=== PATIENT | female | born 1960 | race Caucasian/White ===

== ENCOUNTER → 2023-08-11 | Outpatient (CLI) | payer MEDICARE, OTHER, SELFPAY ==
[2023-08-11 17:02] LABS: Hematocrit 41.7 % (37-47); Hemoglobin 14.1 g/dL (12.0-15.0); Mean Corp Hgb Conc 33.8 g/dL (32-36); Mean Corpuscular Hgb 28.5 pg (27.0-32.0); Mean Corpuscular Volume 84.4 fL (81-99); Mean Platelet Vol. 10.6 fl (6.2-12.0); Platelet Count 280 K/mm3 (150-450); RBC Distribution Width CV 13.1 % (11.6-14.6); RBC Distribution Width SD 39.9 fl (35.1-43.9); Red Blood Count 4.94 M/mm3 (4.2-5.4); White Blood Count 6.4 K/mm3 (4.4-11.0)
[2023-08-11 17:41] LABS: ALB/GLOB Ratio 1.1 RATIO (0.9-2.4); AST(SGOT) 28 U/L (15-37); Alanine Aminotransfer ALT/SGPT 27 U/L (13-56); Albumin, Serum 4.1 g/dL (3.2-5.0); Alkaline Phosphatase 54 U/L (45-117); Anion Gap 8 (5-15); BUN 17 mg/dL (7-18); BUN/Creat Ratio 18.4 RATIO (10-20); Calcium,Total 9.6 mg/dL (8.5-10.1); Chloride 105 mmol/L (98-107); Creatinine, Serum 0.92 mg/dL (0.55-1.02); EST Glomerular Filtration Rate 65 mL/min (>60); Est Glom Filt Rate - Afr Amer 78 mL/min (>60); Globulin 3.6 g/dL (2.2-4.2); Glucose 83 mg/dL (74-106); Potassium 3.7 mmol/L (3.5-5.1); Protein, Total 7.7 g/dL (6.4-8.2); Sodium Level 138 mmol/L (136-145); Thyroid Stim Hormone (TSH) 0.49 uIU/mL (0.358-3.74)
[2023-08-11 18:11] LABS: Hepatitis C Antibody Non-Reactive (Nonreactive); Vitamin D,25 Hydroxy 31.1 ng/mL
== END | disposition home or self-care (01) ==
LOC: POLAB3 16:02
PROVIDERS: PCP Family Medicine Geriatric Medicine; Visit Provider Family Medicine Geriatric Medicine
DX: R53.83 Other fatigue (principal); N39.0 Urinary tract infection, site not specified; E55.9 Vitamin D deficiency, unspecified; Z13.89 Encounter for screening for other disorder
CPT/HCPCS: 36415; 80053; 82306; 84443; 85027; 86803; 87086; 87088; 87186

== ENCOUNTER → 2023-09-03 | Outpatient (CLI) | payer MEDICARE, OTHER, SELFPAY ==
--- NOTE | 2023-09-03 12:47 | CT_ITS ---
STUDY: CT ABDOMEN AND PELVIS WITH CONTRAST REASON FOR EXAM: Female, 63 years old. LEFT FLANK PAIN RADIATION DOSAGE (If Supplied By Facility): CTDIvol = ( 11.82 ) mGy, DLP = ( 481.39 ) mGycm TECHNIQUE: Transaxial images were obtained from the dome of the diaphragm to the symphysis pubis without oral contrast. Oral and amp; IV Readi-CAT and amp; 100mL Isovue-300 was administered. Sagittal and coronal images were reconstructed. Individualized dose optimization techniques were used for this CT. COMPARISON: None. FINDINGS: The visualized lung bases are unremarkable. The visualized portions of the heart are within normal limits. Normal liver. Normal gallbladder and extrahepatic biliary system. Normal spleen. Normal pancreas. Normal bilateral adrenal glands. Normal right kidney. Normal left kidney. Normal visualized stomach. Normal small intestine. Large amount of fecal material is seen in the colon. The appendix is visualized and appears normal. Normal abdominal aorta. Normal inferior vena cava. Normal retroperitoneum. Normal urinary bladder. I suspect a 2.6 x 2.3 cm fibroid in the fundal portion of the uterus. Normal abdominal wall. Normal osseous structures. CT/Abdomen/Pelvis WITH Contrast IMPRESSION: Large amount of fecal material is seen throughout the colon. Findings suggestive of a 2.6 cm x 2.3 cm uterine fibroid. Electronically Signed: Reinaldo Soriano MD at 14:25 EDT ,
== END | disposition home or self-care (01) ==
LOC: CT 12:41
PROVIDERS: PCP Family Medicine Geriatric Medicine; Referring Provider Family Medicine Geriatric Medicine; Visit Provider Family Medicine Geriatric Medicine
DX: R10.9 Unspecified abdominal pain (principal)
CPT/HCPCS: 74177; Q9967

== ENCOUNTER → 2023-11-15 | Outpatient (CLI) | payer MEDICARE, OTHER, SELFPAY | END | disposition home or self-care (01) | PROVIDERS: PCP Family Medicine Geriatric Medicine; Visit Provider Family Medicine Geriatric Medicine | DX: N39.0 Urinary tract infection, site not specified (principal) | CPT/HCPCS: 87086; 87088; 87186 ==

== ENCOUNTER → 2023-12-21 | Outpatient (CLI) | payer MEDICARE, OTHER, SELFPAY ==
--- NOTE | 2023-12-21 16:14 | RAD_ITS ---
EXAM: XR CHEST, 2 VIEWS CLINICAL INDICATION: SOB TECHNIQUE: Frontal and lateral views of the chest. COMPARISON: No relevant prior studies available. FINDINGS: LUNGS AND PLEURAL SPACES: No significant abnormality. No consolidation or edema. No pneumothorax. No effusion. HEART: No significant abnormality. Cardiac silhouette not enlarged. MEDIASTINUM: Central airways and mediastinal contour are unremarkable. BONES/JOINTS: Osseous degenerative changes. No acute fracture. SOFT TISSUES: No significant abnormality. VASCULATURE: Atherosclerosis. RAD/Chest PA and Lateral IMPRESSION: No acute findings in the chest. Electronically Signed: Leobardo Jay DO at 0:09 EDT ,
== END | disposition home or self-care (01) ==
PROVIDERS: PCP Family Medicine Geriatric Medicine; Referring Provider Family Medicine Geriatric Medicine; Visit Provider Family Medicine Geriatric Medicine
DX: R53.83 Other fatigue (principal); R06.02 Shortness of breath
CPT/HCPCS: 71046

== ENCOUNTER → 2023-12-23 | Outpatient (CLI) | payer MEDICARE, OTHER, SELFPAY ==
[2023-12-23 15:21] LABS: Absolute Lymphocyte Count 1.67 X10^3/uL (0.83-4.51); Absolute Neutrophil Count 4.4 X10^3/uL (2.0-7.7); Basophil% 1.4 % (0-1); Eosinophil# 0.22 X10^3/uL; Eosinophils% 3.2 % (0-5); Hematocrit 44.6 % (37-47); Hemoglobin 14.4 g/dL (12.0-15.0); Lymphocyte # 1.67 X10^3/ul (0.83-4.51); Lymphocyte % 24.2 % (19-41); Mean Corp Hgb Conc 32.3 g/dL (32-36); Mean Corpuscular Hgb 27.7 pg (27.0-32.0); Mean Corpuscular Volume 85.8 fL (81-99); Mean Platelet Vol. 10.2 fl (6.2-12.0); Monocyte# 0.51 X10^3/uL; Monocyte% 7.4 % (0-10); NRBC Flagged by Analyzer 0 % (0-5); Neutrophil # 4.36 X10^3/uL (2.7-7.7); Neutrophil % 63.2 % (47-70); Platelet Count 276 K/mm3 (150-450); RBC Distribution Width CV 14.1 % (11.6-14.6); White Blood Count 6.9 K/mm3 (4.4-11.0)
[2023-12-23 16:20] LABS: AST(SGOT) 22 U/L (15-37); Alanine Aminotransfer ALT/SGPT 24 U/L (13-56); Albumin, Serum 3.9 g/dL (3.2-5.0); Alkaline Phosphatase 59 U/L (45-117); Anion Gap 4 (5-15); BUN 16 mg/dL (7-18); BUN/Creat Ratio 18.6 RATIO (10-20); Calcium,Total 9.6 mg/dL (8.5-10.1); Chloride 108 mmol/L (98-107); Creatinine, Serum 0.86 mg/dL (0.55-1.02); EST Glomerular Filtration Rate 70 mL/min (>60); Est Glom Filt Rate - Afr Amer 85 mL/min (>60); Globulin 3.8 g/dL (2.2-4.2); Glucose 89 mg/dL (74-106); Protein, Total 7.7 g/dL (6.4-8.2); Sodium Level 138 mmol/L (136-145)
== END | disposition home or self-care (01) ==
LOC: LAB 14:22
PROVIDERS: PCP Family Medicine Geriatric Medicine; Referring Provider Family Medicine Geriatric Medicine; Visit Provider Family Medicine Geriatric Medicine
DX: R53.83 Other fatigue (principal)
CPT/HCPCS: 36415; 80053; 84443; 85025

== ENCOUNTER → 2023-12-28 | Outpatient (CLI) | payer MEDICARE, OTHER, SELFPAY | END | disposition home or self-care (01) | LOC: PSN 09:48 | PROVIDERS: PCP Family Medicine Geriatric Medicine; Referring Provider Family Medicine Geriatric Medicine; Visit Provider Family Medicine Geriatric Medicine | DX: R06.02 Shortness of breath (principal) | CPT/HCPCS: 94060 ==

== ENCOUNTER → 2023-12-30 | Outpatient (CLI) | payer MEDICARE, OTHER, SELFPAY ==
--- NOTE | 2023-12-30 11:06 | ECHOD_ITS ---
Reason For Study: SOB Procedure This was a 2D Doppler, Color Flow transthoracic echocardiogram. Exam performed in department. Left Ventricle Normal LV size. The estimated ejection fraction is 65 %. No evidence for diastolic dysfunction. No regional wall motion abnormalities noted. Right Ventricle Normal RV size. Normal systolic function. Atria The left and right atria are normal. No doppler evidence for ASD. Mitral Valve There is no mitral valve stenosis. Trivial mitral valve insufficiency. Tricuspid Valve There is no tricuspid stenosis. Unable to estimate RV systolic pressure due to insufficient tricuspid regurgitant envelope. Aortic Valve Trisinus/trileaflet aortic valve. Aortic sclerosis, no stenosis. There is no aortic stenosis. No aortic valve insufficiency. Pulmonic Valve There is no pulmonic valvular stenosis. No pulmonic valve insufficiency. Great Vessels Normal aortic root. Pericardium/Pleural No pericardial effusion. MMode/2D Measurements & Calculations LVIDd: 3.6 cm IVSd: 1.1 cm LVOT diam: 2.0 cm LVIDs: 2.3 cm LVPWd: 0.88 cm LVOT area: 3.3 cm2 RVDd: 2.8 cm FS: 35.5 % Ao root diam: 3.3 cm LAV(MOD-bp): 19.7 ml LVAd ap4: 19.1 cm2 LAV(MOD-bp) Indexed: 12.5 ml/m2 LVLd ap4: 6.9 cm LAV(MOD-sp2): 18.2 ml EDV(MOD-sp4): 46.9 ml LAV(MOD-sp4): 21.7 ml EDV(sp4-el): 44.6 ml LVAs ap4: 12.5 cm2 LVLs ap4: 5.6 cm ESV(MOD-sp4): 23.5 ml ESV(sp4-el): 23.5 ml EF(MOD-sp4): 49.9 % EF(sp4-el): 47.4 % SV(MOD-sp4): 23.4 ml SV(sp4-el): 21.1 ml LA A4 area: 11.4 cm2 LA dimension(2D): 2.9 cm RA A4 area: 8.9 cm2 TAPSE: 1.6 cm Time Measurements MV dec time: 0.36 sec Doppler Measurements & Calculations MV E max joey: 45.2 cm/sec Lat Peak E' Joey: 8.4 cm/sec Med Peak E' Joey: 4.4 cm/sec MV A max joey: 58.1 cm/sec E/E' lat: 5.4 E/E' med: 10.2 MV E/A: 0.78 MV V2 max: 67.0 cm/sec Ao V2 max: 107.0 cm/sec MV max P.8 mmHg MV dec slope: 132.6 cm/sec2 Ao max P.6 mmHg MV V2 mean: 43.4 cm/sec Ao V2 mean: 72.7 cm/sec MV mean P.83 mmHg Ao mean P.4 mmHg MV V2 VTI: 24.6 cm Ao V2 VTI: 23.8 cm AV (velocity ratio): 0.94 MVA(VTI): 3.0 cm2 CRISTAL(I,D): 3.1 cm2 CRISTAL(V,D): 2.8 cm2 LV V1 max: 91.2 cm/sec SV(LVOT): 73.3 ml LV V1 max P.3 mmHg LV V1 mean P.9 mmHg LV V1 mean: 63.5 cm/sec LV V1 VTI: 22.5 cm ECHO/Echo Complete Interpretation Summary The estimated ejection fraction is 65 %. No evidence for diastolic dysfunction. Trivial mitral valve insufficiency. Ordering Physician: Bello Davenport Chi Referring Physician: Bello Davenport Chi Performed By: Valerie Morrissey RCS
== END | disposition home or self-care (01) ==
PROVIDERS: PCP Family Medicine Geriatric Medicine; Referring Provider Family Medicine Geriatric Medicine; Visit Provider Family Medicine Geriatric Medicine
DX: R06.02 Shortness of breath (principal)
CPT/HCPCS: 93306

== ENCOUNTER → 2024-01-03 | Outpatient (CLI) | payer MEDICARE, OTHER, SELFPAY ==
--- NOTE | 2024-01-03 10:43 | BI_ITS ---
MAMMOGRAPHY - BILATERAL SCREENING REASON FOR EXAM: Female, 63 years old. Routine annual screening examination. PERTINENT HISTORY: Non-contributory. TECHNIQUE: Digital bilateral breast beba (3D mammographic acquisition) in the CC and MLO projections. 2-D mediolateral oblique (MLO) and craniocaudad (CC) views of both breasts were obtained. CAD: Full Field Digital Mammography with Computer Added Detection was performed. COMPARISON: Comparison is made with prior outside examination dated December 24, 2022. FINDINGS: Breast Composition: There are scattered areas of fibroglandular density. There are no dominant masses or suspicious calcifications. No other significant abnormalities are identified. There has been no significant change since the prior study. BI/SCRN MAMM (CAD)W/BEBA BILAT IMPRESSION: Stable bilateral screening mammogram. Yearly follow-up mammogram recommended. (A) ASSESSMENT CATEGORY: BIRADS Category 1: Negative. A letter regarding these results will be sent to the patient by the facility within 30 days. Approximately 10% of breast cancers are not detected by mammography. A normal mammogram should not delay biopsy of a clinically suspicious abnormality. [id number] Electronically Signed: Reinaldo Soriano MD at 11:34 EDT ,
== END | disposition home or self-care (01) ==
LOC: OPBI 10:40
PROVIDERS: PCP Family Medicine Geriatric Medicine; Referring Provider Family Medicine Geriatric Medicine; Visit Provider Family Medicine Geriatric Medicine
DX: Z12.31 Encounter for screening mammogram for malignant neoplasm of breast (principal)
CPT/HCPCS: 77063; 77067

== ENCOUNTER → 2024-02-04 | Outpatient (CLI) | payer MEDICARE, OTHER, SELFPAY ==
[2024-02-04 11:23] LABS: Absolute Lymphocyte Count 1.32 X10^3/uL (0.83-4.51); Absolute Neutrophil Count 3.2 X10^3/uL (2.0-7.7); Basophil% 1.9 % (0-1); Eosinophils% 3.8 % (0-5); Hematocrit 43.9 % (37-47); Hemoglobin 14.5 g/dL (12.0-15.0); Lymphocyte # 1.32 X10^3/ul (0.83-4.51); Lymphocyte % 25.4 % (19-41); Mean Corpuscular Hgb 28.8 pg (27.0-32.0); Mean Corpuscular Volume 87.1 fL (81-99); Monocyte# 0.39 X10^3/uL; Monocyte% 7.5 % (0-10); NRBC Flagged by Analyzer 0 % (0-5); Neutrophil # 3.17 X10^3/uL (2.7-7.7); Platelet Count 284 K/mm3 (150-450); RBC Distribution Width CV 13.2 % (11.6-14.6); RBC Distribution Width SD 42.3 fl (35.1-43.9); Red Blood Count 5.04 M/mm3 (4.2-5.4); White Blood Count 5.2 K/mm3 (4.4-11.0)
[2024-02-04 11:50] LABS: Vitamin D,25 Hydroxy 22.2 ng/mL
[2024-02-04 12:13] LABS: AST(SGOT) 20 U/L (15-37); Alanine Aminotransfer ALT/SGPT 27 U/L (13-56); Albumin, Serum 3.8 g/dL (3.2-5.0); Alkaline Phosphatase 66 U/L (45-117); Anion Gap 5 (5-15); BUN 14 mg/dL (7-18); BUN/Creat Ratio 17.6 RATIO (10-20); Calcium,Total 10.1 mg/dL (8.5-10.1); Chloride 108 mmol/L (98-107); EST Glomerular Filtration Rate 77 mL/min (>60); Est Glom Filt Rate - Afr Amer 93 mL/min (>60); Globulin 3.8 g/dL (2.2-4.2); Glucose 83 mg/dL (74-106); Potassium 3.9 mmol/L (3.5-5.1); Protein, Total 7.6 g/dL (6.4-8.2); Sodium Level 140 mmol/L (136-145)
== END | disposition home or self-care (01) ==
LOC: POLAB3 10:53
PROVIDERS: PCP Family Medicine Geriatric Medicine; Visit Provider Family Medicine Geriatric Medicine
DX: R53.83 Other fatigue (principal); E55.9 Vitamin D deficiency, unspecified
CPT/HCPCS: 36415; 80053; 82306; 84443; 85025

== ENCOUNTER → 2024-03-02 | Outpatient (CLI) | payer MEDICARE, OTHER, SELFPAY | END | disposition home or self-care (01) | LOC: POLAB3 10:42 | PROVIDERS: PCP Family Medicine Geriatric Medicine; Visit Provider Family Medicine Geriatric Medicine | DX: N39.0 Urinary tract infection, site not specified (principal) | CPT/HCPCS: 87086; 87088; 87186 ==

== ENCOUNTER → 2024-05-22 | Outpatient (CLI) | payer MEDICARE, OTHER, SELFPAY | END | disposition home or self-care (01) | PROVIDERS: PCP Family Medicine Geriatric Medicine; Referring Provider Family Medicine Geriatric Medicine; Visit Provider Family Medicine Geriatric Medicine | DX: R68.83 Chills (without fever) (principal) | CPT/HCPCS: 87631 ==

== ENCOUNTER → 2024-08-11 | Outpatient (CLI) | payer MEDICARE, OTHER, SELFPAY ==
[2024-08-11 11:18] LABS: Absolute Lymphocyte Count 1.17 X10^3/uL (0.83-4.51); Absolute Neutrophil Count 3.7 X10^3/uL (2.0-7.7); Basophil# 0.08 X10^3/uL; Basophil% 1.4 % (0-1); Eosinophil# 0.19 X10^3/uL; Eosinophils% 3.3 % (0-5); Hematocrit 43.9 % (37-47); Hemoglobin 14.7 g/dL (12.0-15.0); Lymphocyte # 1.17 X10^3/ul (0.83-4.51); Lymphocyte % 20.5 % (19-41); Mean Corp Hgb Conc 33.5 g/dL (32-36); Mean Corpuscular Volume 86.6 fL (81-99); Mean Platelet Vol. 9.5 fl (6.2-12.0); Monocyte# 0.52 X10^3/uL; Monocyte% 9.1 % (0-10); NRBC Flagged by Analyzer 0 % (0-5); Neutrophil # 3.73 X10^3/uL (2.7-7.7); Neutrophil % 65.2 % (47-70); Platelet Count 296 K/mm3 (150-450); RBC Distribution Width CV 13.8 % (11.6-14.6); RBC Distribution Width SD 43.9 fl (35.1-43.9); Red Blood Count 5.07 M/mm3 (4.2-5.4); White Blood Count 5.7 K/mm3 (4.4-11.0)
[2024-08-11 12:12] LABS: ALB/GLOB Ratio 1.4 RATIO (0.9-2.4); AST(SGOT) 22 U/L (<=31); Alanine Aminotransfer ALT/SGPT 19 U/L (<=34); Albumin, Serum 4.3 g/dL (3.4-4.8); Alkaline Phosphatase 62 U/L (35-104); Anion Gap 10 (5-15); BUN 15 mg/dL (4-19); Calcium,Total 9.9 mg/dL (7.6-11.0); Carbon Dioxide 25.9 mmol/L (21.0-32.0); Chloride 104 mmol/L (98-108); Creatinine, Serum 0.75 mg/dL (0.70-1.20); EST Glomerular Filtration Rate 88 (>60); Globulin 3.1 g/dL (2.2-4.2); Glucose 88 mg/dL (70-99); Potassium 4.4 mmol/L (3.3-5.1); Protein, Total 7.5 g/dL (5.9-8.4); Sodium Level 140 mmol/L (133-145); Total Bilirubin 0.74 mg/dL (0.00-1.30)
[2024-08-11 12:13] LABS: Thyroid Stim Hormone (TSH) 0.902 uIU/mL (0.300-4.200); Vitamin D,25 Hydroxy 23.7 ng/mL (30-100)
== END | disposition home or self-care (01) ==
LOC: POLAB3 11:00
PROVIDERS: PCP Family Medicine Geriatric Medicine; Visit Provider Family Medicine Geriatric Medicine
DX: R53.83 Other fatigue (principal); E55.9 Vitamin D deficiency, unspecified
CPT/HCPCS: 36415; 80053; 82306; 84443; 85025

== ENCOUNTER → 2025-01-12 | Outpatient (CLI) | payer MEDICARE, OTHER, SELFPAY ==
--- NOTE | 2025-01-12 10:35 | PCM.PR.HP ---
History of Present Illness General Arrival date:: 01/12/25 Arrival time:: 10:35 Date of Referral:: 12/29/24 Date of Evaluation: 01/12/25 Referring Physician: Dr. 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 Y/N Grade: Description of Breathlessness: y 0 I only get breathless with strenuous exercise. n 1 I get short of breath when hurrying on level ground or walking up a slight hill. n 2 On level ground, I walk slower than people of the same age because of breathless, or have to stop for breath when walking at my own pace. n 3 I stop for breath after walking 100 yards or after a few minutes on level ground. n 4 I am too breathless to leave the house or I am breathless when dressing. Respiratory Problems: Yes Fatigue, Dizziness, Hoarseness, Anxiety and Dyspnea with Activity; No Retain Secretions, Limited Range of Motion, Chest Pain, Wheezing, Able to Speak in Full Sentences, Ankle Swelling, Panic, Dyspnea at Rest, Dyspnea Lying Down Flat or Cough with Secretions Medications Home Medications fluticasone propionate 50 mcg/actuation nasal spray,suspension (Flonase Allergy Relief) 1 spray intranasal QDAY 08/31/24 acetaminophen 650 mg tablet,extended release (Tylenol Arthritis Pain) 650 mg PO Q8H 12/26/24 estradiol 0.01% (0.1 mg/gram) vaginal cream See Rx Instructions vaginal .COMPLEX #42.5 grams 12/26/24 Allergies Allergies Sulfa (Sulfonamide Antibiotics) (sulfa drugs) Allergy (Verified 12/26/24 09:19) Overheats and gets very tired ciprofloxacin (From Cipro) Adverse Reaction (Mild, Verified 12/26/24 09:19) Other Abdominal pain Sleep Disorder Evaluation Hx of Sleep Apnea: No Do you snore loudly (louder than talking or can be heard through closed doors)?: No Do you often feel tired/ fatigued/ sleepy during daytime?: Yes Has anyone observed you stop breathing during sleep?: No History of Hypertension (for STOP score): No STOP Results: Negative Medical Utilization Medical Devices Do you use a peak flow meter at home?: No Do you use a spacer device with your inhalers?: Yes Medical Utilization Number of hospital visits in the last year?: 0 Number of emergency room visits in the last year?: 0 Do you see your physician on a regular schedule?: Yes How often?: every 3 to 6 months Advanced Directives Advanced Directives Do you have a Healthcare Power of Avionics Technician?: Yes Living Will: Yes Advance Directives Information Provided: Yes Advance Directives on File: No DNR Order?:: No Past Medical History Covid-19 Screening Physicial Symptoms Other Clinical Concerns Exposure Risk Pertinent Comorbidities 65 years or older:: Yes Has a chronic lung disease or moderate to severe asthma:: Yes Medical History Past Medical History (Updated 12/26/24 @ 09:59 by Lise Araya NP, CUSTOMER DATA TECHNICIAN-C) Long COVID U09.9 Left shoulder pain M25.512 Surgical History Past Surgical History Hx of cataract extraction Z98.49 History of ear surgery Z98.890 has patch, hx of perforated eardrum Significant Family History Family History (Updated 12/26/24 @ 09:13 by Hortencia Celis) Father Cancer Stomach Mother Cancer Melanoma Social History Smoking History Smoking Status: Never smoker Alcohol Use Alcohol Usage: No Substance Abuse Hx Substance Use: No Occupation Occupation (List type of work in comments):: Retired Functioning ADL/IADL Current Ability Current Ability: Independent: Self-Care (e.g.,grooming, dressing, & bathing), Independent: Ambulation, Independent: Transfer and Independent: Household tasks (e.g., light meal prep, laundry, shopping) Pt Functioning Prior to Problem Prior Functioning: Self-Care (e.g.,grooming, dressing, & bathing): Independent, Ambulation: Independent, Transfer: Independent and Household tasks (e.g., light meal prep, laundry, shopping): Independent Social Environment Status Marital Status: Current Living Arrangements Living Environment:: Spouse Safety Do you feel safe in your surroundings?: Yes Assistance Do you need any assistance at home?: no Review of Systems Review of Systems Review of Systems Respiratory: Reports Cough, SOB upon Exertion, Dizziness/Lightheadedness and Fatigue; Denies Hemoptysis, Pleuritic Pain, SOB at Rest, Sputum production, Wheezing, Appetite, Normal, PVD, Sexual changes or Sleep, Normal Pain Is Patient Pain Free?: Yes Risk Factor Assessment Chief Complaint Chief Complaint: 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, dyspnea Vital Signs Pulse Rate: 71 Pulse Ox: 98 Blood Pressure: 126/79 Obesity Height: 5 ft 2 in Weight:: 136 lb Weight in Pounds: 136.0 lbs Body Mass Index (BMI): 24.8 Nutritional Referral for Obesity: No Physical Activity Physical Inactivity: Reg Exercise 30 min/day (tries to go on walks.) Risk Stratification Risk Guidelines: Moderate Risk: Risk Factor for Smoking, Risk Factor for Dyslipidemia, Risk Factor for Diabetes, Risk Factor for Obesity, Risk Factor for Hypertension, Risk Factor for Sedentary Lifestyle and Risk Factor for Depression For Smoking Smoking Risk Guidelines For Dyslipidemia Dyslipidemia Risk Guidelines For Diabetes Mellitus Diabetes Risk Guidelines For Obesity/Overweight Obesity/Overweight Risk Guidelines For Hypertension Hypertension Risk Guidelines For Sedentary Lifestyle Sedentary Lifestyle Risk Guidelines For Depression Depression Risk Guidelines Motivation Motivation to Participate On a scale of 1 to 10, how prepared are you to commit to attending program?: 10 What do you see as barriers to successfully being able to complete the program?: nothing What do you see as the benefits of succesfully completing the program? In other words, what do you hope to get out of participating in the program?: more energy less SOB Are there issues you are dealing with that will interfere with completing the program?: no Do you have a spouse or signficant other, family or friends who will help support you to complete the program?: yes Diagnostic Data Review 6 Minute Walk Test 6 Minute Walk Test: 1285 feet walked at 2.4 mph Pulmonary Function Test FEV1:: 118 FVC:: 109 FEV1/FVC%:: 108
[2025-01-12 10:51] VITALS: BP 126/79; PULSE 71; O2SAT 98
--- NOTE | 2025-01-12 11:07 | PCM.PR.TP ---
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 Secondary Diagnosis: dyspnea PFT FEV1:: 118 FVC:: 109 FEV1/FVC%:: 108 Personal Learning Style/Barriers Personal Learning Style:: Audio/Visual Barriers to Learning: None Education/Goals SC Patient Goals: Increase muscle strength: Initial Assessment, Experience less dyspnea: Initial Assessment, Improve energy level: Initial Assessment, Participate in home exercise: Initial Assessment, Improve the ability to cope with ADLs: Initial Assessment, Control panic/anxiety: Initial Assessment, Improve diet and nutrition: Initial Assessment, Improve my quality of life: Initial Assessment and Reduce Stress/relaxation techniques: Initial Assessment Exercise - Initial Assessment Visit Date of Eval: 01/12/25 (initial eval ) Problem/Goals Problems: Deconditioning Functional Capacity Test Number of feet walked: 1,285 (6MWT at 2.4 MPH) Lowest SPO2 %: 94 (room air) Physician Prescribed Exercise Modalities: Treadmill, Rower, Schwinn Airdyne AD-7, AccruitFit Stepper, [employer] Pro-II Ergometer and [employer] Lateral Digital Proofing And Platemaker Frequency (days/week): 3 Duration (Minutes):: 30-45 Intensity: 60-80% of age predicted maximum heart rate reserve Current METSs:: 2 Target HR:: 116 (92-116) Resting Blood Pressure: 126/79 Plan Plan and Plan to Review:: Benefits of exercise, Core components of exercise, How to measure dyspnea level, How to monitor dyspnea level, Exercise intensity, Exercise safety guideline, Home exercise guidelines and Jean Marie: 3-4/11-13 Home Exercise Mode: Walking Nutrition/Wt Mgmt - Initial Visit Date of Eval: 01/12/25 (initial eval ) Weight Management Admit Height:: 5 ft 2 in Admit Weight:: 136 lb Admit BMI:: 24.8 Total Score:: 1 (nutrition survey) Intervention Referral to dietitian:: No Will attend diet classes:: Yes Intervention/Plan: Instruct on ideal BMI & set weight loss goal w/patient, Assist pt to ID & incorporate diet changes for weight loss by S9, Refer to Structured Weight Loss program as appropriate, Encourage goal of using 250-300dcal per session for weight loss and Other additional plan/interventions Plan Nutrition Plan: Yes: Review BMI or WC & identify target wt & strategies for wt control, Yes: Nutrition education class:, Yes: Medication education class [Prednisone]:, Yes: Weight control education class:, Yes: Education re: Need for ongoing weight monitoring, Yes: Food diary: and Yes: Physical activity log: Nutrition/Wt Mgmt - 30-Day Weight Management Height: 5 ft 2 in Weight:: 136 lb BMI: 24.8 Nutrition/Wt Mgmt - 60-Day Weight Management Height: 5 ft 2 in Weight:: 136 lb BMI: 24.8 Nutrition/Wt Mgmt - 90-Day Weight Management Height: 5 ft 2 in Weight:: 136 lb BMI: 24.8 Nutrition/Wt Mgmt - Final Weight Management Height: 5 ft 2 in Weight:: 136 lb BMI: 24.8 Psychosocial - Initial Assess Visit Date of Eval: 01/12/25 (initial eval ) Problems/Goals History of Emotional Disorders: Anxious (Due to recent health issues. Pt does not have a diagnosis of anxiety.) Psychosocial Goals: 1. Patient is free from overwhelming symtoms of depression (or anxiety, 2. Identifies personal stressors & states the strategies for managing, 3. Identifies activities to decrease isolation and/or symptoms of, 4. Improved psychosocial coping skills., 5. Verbalizes coping strategies., 6. Adequate treatment of depression. and 7. Improved Q.O.L. Self-reported stressors: Recent Illness Psychosocial Test Tool Used:: PHQ-9 Questionnaire PHQ-9 Score: 3 Referral to Behavioral Health PS - Interventions: Yes: Attend Stress Management Classes Intervention/Plan: See List Interventions/Plan:: Assess stressors,coping strategies & signs of derpression on admission, Instruct/assist pt to develop coping & personal stress Mgt strategies, Refer to Behavioral Health if appropriate, Refer to Physician if appropriate, Instruct patient to recognize signs & symptoms of depression and Instruct patient to recog Psychosocial - 30-Day Problems/Goals History of Emotional Disorders: Anxious (Due to recent health issues. Pt does not have a diagnosis of anxiety.) Psychosocial Goals: 1. Patient is free from overwhelming symtoms of depression (or anxiety, 2. Identifies personal stressors & states the strategies for managing, 3. Identifies activities to decrease isolation and/or symptoms of, 4. Improved psychosocial coping skills., 5. Verbalizes coping strategies., 6. Adequate treatment of depression. and 7. Improved Q.O.L. Self-reported stressors: Recent Illness Psychosocial Test Tool Used:: PHQ-9 Questionnaire PHQ-9 Score: 3 Referral to Behavioral Health PS - Interventions: Yes: Attend Stress Management Classes Plan Interventions/Plan:: Assess stressors,coping strategies & signs of derpression on admission, Instruct/assist pt to develop coping & personal stress Mgt strategies, Refer to Behavioral Health if appropriate, Refer to Physician if appropriate, Instruct patient to recognize signs & symptoms of depression and Instruct patient to recog Psychosocial - 60-Day Problems/Goals History of Emotional Disorders: Anxious (Due to recent health issues. Pt does not have a diagnosis of anxiety.) Psychosocial Goals: 1. Patient is free from overwhelming symtoms of depression (or anxiety, 2. Identifies personal stressors & states the strategies for managing, 3. Identifies activities to decrease isolation and/or symptoms of, 4. Improved psychosocial coping skills., 5. Verbalizes coping strategies., 6. Adequate treatment of depression. and 7. Improved Q.O.L. Self-reported stressors: Recent Illness Psychosocial Test Tool Used:: PHQ-9 Questionnaire PHQ-9 Score: 3 Referral to Behavioral Health PS - Interventions: Yes: Attend Stress Management Classes Plan Interventions/Plan:: Assess stressors,coping strategies & signs of derpression on admission, Instruct/assist pt to develop coping & personal stress Mgt strategies, Refer to Behavioral Health if appropriate, Refer to Physician if appropriate, Instruct patient to recognize signs & symptoms of depression and Instruct patient to recog Psychosocial - 90-Day Problems/Goals History of Emotional Disorders: Anxious (Due to recent health issues. Pt does not have a diagnosis of anxiety.) Psychosocial Goals: 1. Patient is free from overwhelming symtoms of depression (or anxiety, 2. Identifies personal stressors & states the strategies for managing, 3. Identifies activities to decrease isolation and/or symptoms of, 4. Improved psychosocial coping skills., 5. Verbalizes coping strategies., 6. Adequate treatment of depression. and 7. Improved Q.O.L. Self-reported stressors: Recent Illness Psychosocial Test Tool Used:: PHQ-9 Questionnaire PHQ-9 Score: 3 Referral to Behavioral Health PS - Interventions: Yes: Attend Stress Management Classes Plan Interventions/Plan:: Assess stressors,coping strategies & signs of derpression on admission, Instruct/assist pt to develop coping & personal stress Mgt strategies, Refer to Behavioral Health if appropriate, Refer to Physician if appropriate, Instruct patient to recognize signs & symptoms of depression and Instruct patient to recog Psychosocial - Final Assess Problems/Goals History of Emotional Disorders: Anxious (Due to recent health issues. Pt does not have a diagnosis of anxiety.) Psychosocial Goals: 1. Patient is free from overwhelming symtoms of depression (or anxiety, 2. Identifies personal stressors & states the strategies for managing, 3. Identifies activities to decrease isolation and/or symptoms of, 4. Improved psychosocial coping skills., 5. Verbalizes coping strategies., 6. Adequate treatment of depression. and 7. Improved Q.O.L. Self-reported stressors: Recent Illness Psychosocial Test Tool Used:: PHQ-9 Questionnaire PHQ-9 Score: 3 Referral to Behavioral Health PS - Interventions: Yes: Attend Stress Management Classes Plan Interventions/Plan:: Assess stressors,coping strategies & signs of derpression on admission, Instruct/assist pt to develop coping & personal stress Mgt strategies, Refer to Behavioral Health if appropriate, Refer to Physician if appropriate, Instruct patient to recognize signs & symptoms of depression and Instruct patient to recog Oxygen & Oxygen Titration Init Visit Date of Eval: 01/12/25 (initial eval ) Initial Assessment Oxygen on Admission: None Patient Reports:: Non-productive cough Goal Oxygen & Oxygen Tritration Goals: Effective hypoxemia control and Uses O2 as Rx'd/safely Plans Reviewed prescribed medications:: Purpose, Schedule, Side effects and Importance of compliance Instruct correct technique/timing & care:: MDI, DPI and Nebulizer Bronchial Hygiene Plan: Controlled cough, CPT, Vibratory PEP device, VEST, Role of exercise in secretion clearance, NS Nasal spray, Hydration, Hand hygiene, Evaluate sputum, When to call MD, Signs/symptoms to report:, Influenza/Pneumovax vaccines and Cleaning of respiratory equipment Core Components - Initial Visit Date of Eval: 01/12/25 (initial eval ) Hypertension BP: 126/79 [place] [employer] Hypertension Guidelines Low Sodium diet: No Outcomes/Goals: Able to verbalize/achieve optimal blood pressure <130/80 and Incorporates diet changes & exercise for blood pressure control by DC Tobacco - Initial Assessment Tobacco Program Goals Tobacco Use: Non-smoker Gave Education Materials For:: Tobacco Triggers, Pulmonary Disease, Risk Factors, Breathing Techniques, Medical Compliance, Pulmonary A&P, Exacerbation Signs & Symptoms and Stress & Relaxation Exacerbation Mgmt & Airway Clearance Patient Reports:: Non-productive cough Instruct correct technique/timing & care:: MDI, DPI and Nebulizer Bronchial Hygiene Plan: Controlled cough, CPT, Vibratory PEP device, VEST, Role of exercise in secretion clearance, NS Nasal spray, Hydration, Hand hygiene, Evaluate sputum, When to call MD, Signs/symptoms to report:, Influenza/Pneumovax vaccines and Cleaning of respiratory equipment Medication Interventions/plans: Instruct on medication effects & side effects, Review medication list w/patient every two weeks and Instruct importance of taking meds as ordered & assist problem solving Medication Goals: Adherence to prescribed medications and Correct technique/timing & care of MDI, DPI, nebulizer, and spacer. Medications: Yes: MDI, Yes: DPI and Yes: Spacer Reviewed prescribed medications:: Purpose, Schedule, Side effects and Importance of compliance Diabetes Diabetes:: No Referral to dietitian:: No Referral to Diabetic Clinic:: No Will attend diet classes:: Yes Core Components - 30 DAYS Hypertension Resting Blood Pressure:: 126/79 [place] [employer] Hypertension Guidelines Outcomes/Goals: Able to verbalize/achieve optimal blood pressure <130/80 and Incorporates diet changes & exercise for blood pressure control by ID Tobacco - 30-Day Tobacco Program Goals Tobacco Use: Non-smoker Gave Education Materials For:: Tobacco Triggers, Pulmonary Disease, Risk Factors, Breathing Techniques, Medical Compliance, Pulmonary A&P, Exacerbation Signs & Symptoms and Stress & Relaxation Diabetes Diabetes:: No Core Components - 60 DAYS Hypertension Resting Blood Pressure:: 126/79 [place] [employer] Hypertension Guidelines Outcomes/Goals: Able to verbalize/achieve optimal blood pressure <130/80 and Incorporates diet changes & exercise for blood pressure control by ID Tobacco - 60-Day Tobacco Program Goals Tobacco Use: Non-smoker Gave Education Materials For:: Tobacco Triggers, Pulmonary Disease, Risk Factors, Breathing Techniques, Medical Compliance, Pulmonary A&P, Exacerbation Signs & Symptoms and Stress & Relaxation Diabetes Diabetes:: No Core Components - 90 DAYS Hypertension Resting Blood Pressure:: 126/79 [place] [employer] Hypertension Guidelines Outcomes/Goals: Able to verbalize/achieve optimal blood pressure <130/80 and Incorporates diet changes & exercise for blood pressure control by ID Tobacco - 90-Day Tobacco Program Goals Tobacco Use: Non-smoker Gave Education Materials For:: Tobacco Triggers, Pulmonary Disease, Risk Factors, Breathing Techniques, Medical Compliance, Pulmonary A&P, Exacerbation Signs & Symptoms and Stress & Relaxation Diabetes Diabetes:: No Core Components - Final Hypertension Resting Blood Pressure:: 126/79 [place] [employer] Hypertension Guidelines Outcomes/Goals: Able to verbalize/achieve optimal blood pressure <130/80 and Incorporates diet changes & exercise for blood pressure control by DC Tobacco - Final Tobacco Program Goals Tobacco Use: Non-smoker Diabetes Diabetes:: No Patient Health Questionnaire PHQ-9 Screening Initial Assessment: 1. Little interest or pleasure in doing things: Not at all 2. Feeling down, depressed, or hopeless: Not at all 3. Trouble falling or staying asleep, or sleeping too much: Several days 4. Feeling tired or having little energy: Several days 5. Poor appetite or overeating: Not at all 6. Feeling bad about yourself -- or that you are a failure or have let yourself or your family down: Not at all 7. Trouble concentrating on things, such as reading the newspaper or watching television: Not at all 8. Moving or speaking so slowly that other people could have noticed. Or the opposite - being so fidgety or restless that you have been moving around a lot more than usual: Not at all 9. Thoughts that you would be better off , or of hurting yourself in some way: Not at all How difficult have these problems made it for you to do your work, take care of things at home, or get along with other people?: Somewhat difficult Total Score: 2 Knowledge Questionaire (BCKQ) Information Information: [place] COPD Knowledge Questionnaire (BCKQ) This questionnaire is designed to find out what you know about your lung problem. It should be completed without help form anyone else. This usually takes between 10 and 20 minutes. Your answers will help us to find out what information you need to help you to understand and manage your lung condition. Freedom the benton which you think is the correct answer. COPD Assessment Test [CAT] Questions Never cough = 0, Cough all the time = 5: 1 No phlegm = 0, Chest full of phlegm = 5: 1 No chest tightness = 0, Chest very tight = 5: 2 No breathless w/exertion = 0, Very breathless w/exertion = 5: 3 No limitations w/activity = 0, Very limited w/activity = 5: 2 Confident leaving home = 0, Not at all confident = 5: 0 Sleep soundly = 0, Don't sleep soundly = 5: 2 Lots of energy = 0, No energy at all = 5: 2 Total CAT score:: 13 Self-Efficacy 6-Item Scale Initial Assessment: We would like to know how confident you are in doing certain activities. Please select your confidence level for: Fatigue Select Number: 7 Physical Discomfort or Pain Select Number: 7 Emotional Distress Select Number: 9 Other Symptoms or Health Problems Select Number: 7 Different Tasks and Activities Select Number: 9 Medication Select Number: 10 Total Score:: 8 Nutrition Survey Nutrition Survey Instructions Scoring Instructions Nutrition Survey Initial: Have you lost >10 lbs over the past 2 months without trying?: No Are you following a special diet at home for diabetes, low fat, or low salt?: Yes Are you interested in meeting with a dietitian for help understanding your diet?: No Do you eat less than 3 meals a day?: No Do you eat fatty meats (arias, sausage, ribs, etc), fried foods, desserts, large amounts of salad dressings, margarine, butter, or cheese most days?: No Do you have food allergies? [Enter types in comment field]: No Do you eat in restaurants more than 3 times a week?: No Do you season food with salt, seasoning salt, or garlic salt?: No Do you used canned, boxed, frozen meals, or soups, seasoning packets?: No Total Score:: 1
[2025-01-12 11:20] VITALS: BP 126/79; BMI 24.8
== END | disposition home or self-care (01) ==
PROVIDERS: PCP Family Medicine Geriatric Medicine
DX: U09.9 Post COVID-19 condition, unspecified (principal); R06.00 Dyspnea, unspecified; R06.89 Other abnormalities of breathing

== ENCOUNTER → 2025-01-18 | Outpatient (CLI) | payer MEDICARE, OTHER, SELFPAY ==
[2025-01-12 11:20] VITALS: BMI 24.8
--- NOTE | 2025-01-18 12:00 | BI_ITS ---
EXAM: SCRN MAMM (CAD)W/BEBA BILAT DATE: 01/18/2025 CLINICAL HISTORY: F, Age 64 y/o , SCREENING FOR BREAST CANCER No family history. TECHNIQUE: SCRN MAMM (CAD)W/BEBA BILAT COMPARISON: Prior exam(s) dated January 03, 2024.. FINDINGS: TISSUE DENSITY: There are scattered areas of fibroglandular density. Bilateral Breast Mammographic Findings: No significant masses, calcifications or other abnormalities are identified. Stable asymmetry were more breast tissue is seen in the right breast as compared to the left side. No suspicious masses, areas of developing architectural distortion, or suspicious calcifications. There has been no significant interval change. BI/SCRN MAMM (CAD)W/BEBA BILAT IMPRESSION: Stable examination. OVERALL FINAL ASSESSMENT BI-RADS 2: BENIGN RECOMMENDATION: Routine annual follow-up in 1 Year A letter with findings and recommendations will be mailed to the patient. Reading Location: [facility]
== END | disposition home or self-care (01) ==
LOC: OPBI 11:37
PROVIDERS: PCP Family Medicine Geriatric Medicine; Referring Provider Nurse Practitioner Women's Health; Visit Provider Nurse Practitioner Women's Health
DX: Z12.31 Encounter for screening mammogram for malignant neoplasm of breast (principal)
CPT/HCPCS: 77063; 77067

== ENCOUNTER 2025-01-26 10:00 | Outpatient (RCR) | payer MEDICARE, OTHER, SELFPAY ==
[2025-01-12 11:20] VITALS: BMI 24.8
== END 2025-01-28 23:59 ==
LOC: PR 10:00
PROVIDERS: PCP Family Medicine Geriatric Medicine
DX: R06.00 Dyspnea, unspecified (principal); R06.89 Other abnormalities of breathing; U09.9 Post COVID-19 condition, unspecified
CPT/HCPCS: 97150; 94626

== ENCOUNTER 2025-02-26 10:00 | Outpatient (RCR) | payer MEDICARE, OTHER, SELFPAY ==
[2025-01-12 11:20] VITALS: BMI 24.8
--- NOTE | 2025-02-08 09:28 | PR.ITP_ITS ---
Exercise - Initial Assessment Visit Session Number:: 5 Physician Prescribed Exercise Modalities: Treadmill, Schwinn Airdyne AD-7 and SciFit Stepper Current METSs:: 5.7 Target HR:: 116 (92-116) Current RPD:: 2 Maximum Exercise HR:: 134 Resting Blood Pressure: 126/82 Maximum Exercise Blood Pressure: 150/84 Minimum SpO2 with exercise: 97 EKG Type: NSR to ST Nutrition/Wt Mgmt - Initial Visit Session Number:: 5 (Nutrition survey score of 1.) Weight Management Admit Height:: 5 ft 2 in Admit Weight:: 137 lb 8 oz Admit BMI:: 25.1 Nutrition/Wt Mgmt - 30-Day Visit Date of Eval: 02/08/25 Session Number:: 5 (Nutrition survey score of 1.) Weight Management Height: 5 ft 2 in Weight:: 137 lb 8 oz BMI: 25.1 Weight Goals Progress:: Progressing (Pt is at healthy weight. Pt will attend nutrition class.) Nutrition/Wt Mgmt - 60-Day Visit Session Number:: 5 (Nutrition survey score of 1.) Weight Management Height: 5 ft 2 in Weight:: 137 lb 8 oz BMI: 25.1 Nutrition/Wt Mgmt - 90-Day Visit Session Number:: 5 (Nutrition survey score of 1.) Weight Management Height: 5 ft 2 in Weight:: 137 lb 8 oz BMI: 25.1 Nutrition/Wt Mgmt - Final Visit Session Number:: 5 (Nutrition survey score of 1.) Weight Management Height: 5 ft 2 in Weight:: 137 lb 8 oz BMI: 25.1 Psychosocial - Initial Assess Visit Session Number:: 5 (Nutrition survey score of 1.) Problems/Goals History of Emotional Disorders: Anxious (Due to recent health issues. Pt does not have an official diagnosis of anxiety.) Psychosocial Goals: 1. Patient is free from overwhelming symtoms of depression (or anxiety, 2. Identifies personal stressors & states the strategies for managi ng, 3. Identifies activities to decrease isolation and/or symptoms of, 4. Improved psychosocial coping skills., 5. Verbalizes coping strategies., 6. Adequate treatment of depression. and 7. Improved Q.O.L. Self-reported stressors: Recent Illness Psychosocial Test Tool Used:: PHQ-9 Questionnaire PHQ-9 Score: 3 Referral to Behavioral Health PS - Interventions: Yes: Attend Stress Management Classes Intervention/Plan: See List Interventions/Plan:: Assess stressors,coping strategies & signs of derpression on admission, Instruct/assist pt to develop coping & personal stress Mgt strategies, Refer to Behavioral Health if appropriate, Refer to Physician if appropriate, Instruct patient to recognize signs & symptoms of depression and Instruct patient to recog Psychosocial - 30-Day Visit Date of Eval: 02/08/25 Session Number:: 5 (Nutrition survey score of 1.) Problems/Goals History of Emotional Disorders: Anxious (Due to recent health issues. Pt does not have an official diagnosis of anxiety.) Psychosocial Goals: 1. Patient is free from overwhelming symtoms of depression (or anxiety, 2. Identifies personal stressors & states the strategies for managing, 3. Identifies activities to decrease isolation and/or symptoms of, 4. Improved psychosocial coping skills., 5. Verbalizes coping strategies., 6. Adequate treatment of depression. and 7. Improved Q.O.L. Self-reported stressors: Recent Illness Psychosocial Test Tool Used:: PHQ-9 Questionnaire PHQ-9 Score: 3 Referral to Behavioral Health PS - Interventions: Yes: Attend Stress Management Classes Plan Interventions/Plan:: Assess stressors,coping strategies & signs of derpression on admission, Instruct/assist pt to develop coping & personal stress Mgt strategies, Refer to Behavioral Health if appropriate, Refer to Physician if appropriate, Instruct patient to recognize signs & symptoms of depression and Instruct patient to recog Psychosocial - 60-Day Visit Session Number:: 5 (Nutrition survey score of 1.) Problems/Goals History of Emotional Disorders: Anxious (Due to recent health issues. Pt does not have an official diagnosis of anxiety.) Psychosocial Goals: 1. Patient is free from overwhelming symtoms of depression (or anxiety, 2. Identifies personal stressors & states the strategies for managing, 3. Identifies activities to decrease isolation and/or symptoms of, 4. Improved psychosocial coping skills., 5. Verbalizes coping strategies., 6. Adequate treatment of depression. and 7. Improved Q.O.L. Self-reported stressors: Recent Illness Psychosocial Test Tool Used:: PHQ-9 Questionnaire PHQ-9 Score: 3 Referral to Behavioral Health PS - Interventions: Yes: Attend Stress Management Classes Plan Interventions/Plan:: Assess stressors,coping strategies & signs of derpression on admission, Instruct/assist pt to develop coping & personal stress Mgt strategies, Refer to Behavioral Health if appropriate, Refer to Physician if appropriate, Instruct patient to recognize signs & symptoms of depression and Instruct patient to recog Psychosocial - 90-Day Visit Session Number:: 5 Problems/Goals History of Emotional Disorders: Anxious (Due to recent health issues. Pt does not have an official diagnosis of anxiety.) Psychosocial Goals: 1. Patient is free from overwhelming symtoms of depression (or anxiety, 2. Identifies personal stressors & states the strategies for ma naging, 3. Identifies activities to decrease isolation and/or symptoms of, 4. Improved psychosocial coping skills., 5. Verbalizes coping strategies., 6. Adequate treatment of depression. and 7. Improved Q.O.L. Self-reported stressors: Recent Illness Psychosocial Test Tool Used:: PHQ-9 Questionnaire PHQ-9 Score: 3 Referral to Behavioral Health PS - Interventions: Yes: Attend Stress Management Classes Plan Interventions/Plan:: Assess stressors,coping strategies & signs of derpression on admission, Instruct/assist pt to develop coping & personal stress Mgt strategies, Refer to Behavioral Health if appropriate, Refer to Physician if appropriate, Instruct patient to recognize signs & symptoms of depression and Instruct patient to recog Psychosocial - Final Assess Visit Session Number:: 5 Problems/Goals History of Emotional Disorders: Anxious (Due to recent health issues. Pt does not have an official diagnosis of anxiety.) Psychosocial Goals: 1. Patient is free from overwhelming symtoms of depression (or anxiety, 2. Identifies personal stressors & states the strategies for managing, 3. Identifies activities to decrease isolation and/or symptoms of, 4. Improved psychosocial coping skills., 5. Verbalizes coping strategies., 6. Adequate treatment of depression. and 7. Improved Q.O.L. Self-reported stressors: Recent Illness Psychosocial Test Tool Used:: PHQ-9 Questionnaire PHQ-9 Score: 3 Referral to Behavioral Health PS - Interventions: Yes: Attend Stress Management Classes Plan Interventions/Plan:: Assess stressors,coping strategies & signs of derpression on admission, Instruct/assist pt to develop coping & personal stress Mgt strategies, Refer to Behavioral Health if appropriate, Refer to Physician if appropriate, Instruct patient to recognize signs & symptoms of depression and Instruct patient to recog Oxygen & Oxygen Titration Init Visit Session Number:: 5 (Nutrition survey score of 1.) Initial Assessment SpO2:: 97 Oxygen & Oxygen Titration 30D Visit Date of Eval: 02/08/25 Session Number:: 5 Reassessment Reassessment- 30 Days: Demonstrate knowledge of O2 Rx at rest & w/exercise Breath Sounds:: Clear SpO2:: 97 Oxygen & Oxygen Titration 60D Visit Date of Eval: 02/08/25 Session Number:: 5 Reassessment Breath Sounds:: Clear SpO2:: 97 Oxygen & Oxygen Titration 90D Visit Date of Eval: 02/08/25 Session Number:: 5 Reassessment Breath Sounds:: Clear SpO2:: 97 Oxygen & Oxygen Titration CEDRIC Visit Date of Eval: 02/08/25 Session Number:: 5 Reassessment Breath Sounds:: Clear SpO2:: 97 Core Components - Initial Visit Session Number:: 5 Hypertension BP: 126/82 [place] [employer] Hypertension Guidelines Blood Pressure: 150/84 Outcomes/Goals: Able to verbalize/achieve optimal blood pressure <130/80 and Incorporates diet changes & exercise for blood pressure control by DC Tobacco - Initial Assessment Tobacco Program Goals Do you have family support?: Yes Tobacco Use: Non-smoker Diabetes Diabetes:: No Core Components - 30 DAYS Visit Date of Eval: 02/08/25 Session Number:: 5 Hypertension Resting Blood Pressure:: 126/82 [place] [employer] Hypertension Guidelines Peak Exercise Blood Pressure:: 150/84 Change in medication: No Outcomes/Goals: Able to verbalize/achieve optimal blood pressure <130/80 and Incorporates diet changes & exercise for blood pressure control by DC Interventions/plan: Instruct on optimal blood pressure, hypertension & medications and Instruct on effects of sodium, alcohol, stress, exercise &hypertension 30 day Reassessments:: Progressing Reassessment Notes & Comments:: Pt's BP's are within AHA normal limits on most days. Will continue to monitor and report to pt's physician if necessary. Tobacco - 30-Day Tobacco Program Goals Learning Barriers: Participates in education Do you have family support?: Yes Tobacco Use: Non-smoker Exacerbation Mgmt & Airway Clearance Reassessment: Demonstrates knowledge of O2 Rx at rest and Demonstrates knowledge of O2 Rx with exercise Bronchial Hygiene Plan: Yes: Pt demo correct for improved hydration, Yes: Pt demo correct for hand hygiene and Yes: Pt demo correct for verbalize when to call MD Medication Medication list reviewed:: Yes Taking medications 100% of the time:: Met Diabetes Diabetes:: No Core Components - 60 DAYS Visit Session Number:: 5 Hypertension Resting Blood Pressure:: 126/82 [place] [employer] Hypertension Guidelines Peak Exercise Blood Pressure:: 150/84 Change in medication: No Outcomes/Goals: Able to verbalize/achieve optimal blood pressure <130/80 and Incorporates diet changes & exercise for blood pressure control by DC Interventions/plan: Instruct on optimal blood pressure, hypertension & medications and Instruct on effects of sodium, alcohol, stress, exercise &hypertension 60 day Reassessments:: Progressing Reassessment Notes & Comments:: Pt's BP's are within AHA normal limits on most days. Will continue to monitor and report to pt's physician if necessary. Tobacco - 60-Day Tobacco Program Goals Learning Barriers: Participates in education Do you have family support?: Yes Tobacco Use: Non-smoker Exacerbation Mgmt & Airway Clearance Reassessment: Demonstrates knowledge of O2 Rx at rest and Demonstrates knowledge of O2 Rx with exercise Bronchial Hygiene Plan: Yes: Pt demo correct for improved hydration, Yes: Pt demo correct for hand hygiene and Yes: Pt demo correct for verbalize when to todd maxx CASTRO Medication Taking medications 100% of the time:: Met Diabetes Diabetes:: No Core Components - 90 DAYS Visit Session Number:: 5 Hypertension Resting Blood Pressure:: 126/82 [place] [employer] Hypertension Guidelines Peak Exercise Blood Pressure:: 150/84 Outcomes/Goals: Able to verbalize/achieve optimal blood pressure <130/80 and Incorporates diet changes & exercise for blood pressure control by DC Interventions/plan: Instruct on optimal blood pressure, hypertension & medications and Instruct on effects of sodium, alcohol, stress, exercise &hypertension 90 day Reassessments:: Progressing Reassessment Notes & Comments:: Pt's BP's are within AHA normal limits on most days. Will continue to monitor and report to pt's physician if necessary. Tobacco - 90-Day Tobacco Program Goals Learning Barriers: Participates in education Do you have family support?: Yes Tobacco Use: Non-smoker Exacerbation Mgmt & Airway Clearance Bronchial Hygiene Plan: Yes: Pt demo correct for improved hydration, Yes: Pt demo correct for hand hygiene and Yes: Pt demo correct for verbalize when to call Diabetes Diabetes:: No Core Components - Final Visit Session Number:: 5 Hypertension Resting Blood Pressure:: 126/82 [place] [employer] Hypertension Guidelines Peak Exercise Blood Pressure:: 150/84 Outcomes/Goals: Able to verbalize/achieve optimal blood pressure <130/80 and Incorporates diet changes & exercise for blood pressure control by DC Tobacco - Final Tobacco Program Goals Learning Barriers: Participates in education Do you have family support?: Yes Tobacco Use: Non-smoker Exacerbation Mgmt & Airway Clearance Bronchial Hygiene Plan: Yes: Pt demo correct for improved hydration, Yes: Pt demo correct for hand hygiene and Yes: Pt demo correct for verbalize when to call MD Diabetes Diabetes:: No Patient Health Questionnaire PHQ-9 Screening 30-Day Re-eval Assessment: 1. Little interest or pleasure in doing things: Not at all 2. Feeling down, depressed, or hopeless: Not at all 3. Trouble falling or staying asleep, or sleeping too much: Several days 4. Feeling tired or having little energy: Several days 5. Poor appetite or overeating: Several days 6. Feeling bad about yourself -- or that you are a failure or have let yourself or your family down: Not at all 7. Trouble concentrating on things, such as reading the newspaper or watching television: Not at all 8. Moving or speaking so slowly that other people could have noticed. Or the opposite - being so fidgety or restless that you have been moving around a lot more than usual: Not at all 9. Thoughts that you would be better off , or of hurting yourself in some way: Not at all How difficult have these problems made it for you to do your work, take ca re of things at home, or get along with other people?: Somewhat difficult Total Score: 3 Knowledge Questionaire (BCKQ) Information Information: [place] COPD Knowledge Questionnaire (BCKQ) This questionnaire is designed to find out what you know about your lung problem. It should be completed without help form anyone else. This usually takes between 10 and 20 minutes. Your answers will help us to find out what information you need to help you to understand and manage your lung condition. Freedom the robinson which you think is the correct answer. Self-Efficacy 6-Item Scale 30-Day Re-eval Assessment: We would like to know how confident you are in doing certain activities. Please select your confidence level for: Fatigue Select Number: 7 Physical Discomfort or Pain Select Number: 7 Emotional Distress Select Number: 9 Other Symptoms or Health Problems Select Number: 7 Different Tasks and Activities Select Number: 9 Medication Select Number: 10 Total Score:: 8
[2025-02-08 09:41] VITALS: BP 126/82; BP 150/84; O2SAT 97; BMI 25.1
== END 2025-02-27 23:59 ==
LOC: PR 10:00
PROVIDERS: PCP Family Medicine Geriatric Medicine
DX: R06.00 Dyspnea, unspecified (principal); R06.89 Other abnormalities of breathing; U09.9 Post COVID-19 condition, unspecified
CPT/HCPCS: 97150; 94626

== ENCOUNTER 2025-03-08 05:26 | Day surgery (SDC) | payer MEDICARE, OTHER, SELFPAY ==
[2025-01-12 11:20] VITALS: BMI 24.8
[2025-02-08 09:41] VITALS: BMI 25.1
[2025-03-08] VITALS (8 sets, daily range): BP systolic 87–132; BP diastolic 52–80; PULSE 63–68; RESP 12–18; TEMP 36.2–36.8; O2SAT 93–100; BMI 25.2
[2025-03-08] MEDS: Lactated Ringers 1,000 ML 15 ML IV (06:01)
--- NOTE | 2025-03-08 06:30 | EGD_PTH ---
PATIENT: TIFFANIE RAMSEY LOC: EN U#:[id number] AGE/SX: 64/F ROOM: RE03/08/[address]: Dr. Chuck Dalton DO : 1960 BED: DIS: 03/08/2025 SPEC #: [id number] RECD: 03/08/25 09:14 STATUS: PHILL REKennedi #: [id number] GERA: 03/08/25 06:[address]: Chuck Dalton DEPT: SURGICAL PATHOLOGY RECD BY: Valentina Cuello ENTERED: 03/08/25 10:10 SP TYPE: EGD BIOPSY [facility] DR: MD Dr. Alirio Nascimento Chi, MD Tissues: A - Duodenum, NOS B - Gastric mucous membrane C - Esophagus, NOS Procedures: Surgery Specimen Level IV HEADER OPERATION: EGD with biopsy PRE-OP DIAGNOSIS: Gas bloat syndrome, abdominal pain TISSUE SUBMITTED: A- Duodenum biopsy, B- Gastric body biopsy, C- Distal esophagus biopsy MICROSCOPIC DIAGNOSIS A. Small intestine, duodenum, biopsy: * Small bowel mucosa with no pathologic change B. Stomach, gastric body, biopsy: * Oxyntic mucosa with mild chronic inflammation * No morphologic evidence of Helicobacter pylori organisms C. Distal esophagus, biopsy: * Benign squamous epithelium with reactive changes * Oxyntocardiac type mucosa with mild chronic inflammation, negative for goblet cells MICROSCOPIC DESCRIPTION Slides are reviewed. GROSS DESCRIPTION A. Received in fixative is one container labeled with the patient's name and designated Duodenum biopsy. The specimen consists of three irregular fragments of tavares tissue that measure 0.3 to 0.9 cm. The specimen is totally submitted in one cassette. B. Received in fixative is one container labeled with the patient's name and designated Gastric body biopsy. The specimen consists of two irregular fragments of tavares tissue that measure 0.3 and 0.5 cm. The specimen is totally submitted in one cassette. C. Received in fixative is one container labeled with the patient's name and designated Distal esophagus biopsy. The specimen consists of two irregular fragments of tavares tissue, each measuring 0.5 cm. The specimen is totally submitted in one cassette. [place] 03/08/2025 CPT:[id number]
--- NOTE | 2025-03-08 06:33 | HP.PCM_ITS ---
HPI - General General Date of Admission: 03/08/25 Date of Service: 03/08/25 Chief Complaint: Abdominal pain HPI Narrative [ TIFFANIE RAMSEY, is a 64 F who presents for concerns regarding LUQ abdominal pain. She states that the pain is intermittent and travels but seems to settle in that area until a BM gives relief. She states that she's had multiple colonoscopies and states that nothing is ever seen in this area. She reports fatigue and difficulty stomaching her supplements ever since her COVID infection fall of . She reports participating in a clinic for long COVID. She has a chronic sinus infection along with complaints of heartburn, excessive gas, bloating and cramping in lower abdomen. She states that this is the third doctor's office she's to for a diagnosis of her abdominal complaints. She takes a Miralax cookie as needed for BMs, not letting her bowels go longer than 3 days without a BM. She denies difficulty chewing and swallowing, cough, throat clearing, reflux, nausea, emesis, diarrhea, hematochezia, and melena. She denies change in water source and recent travel out of the country. ] [facility] Medical History Arthritis High cholesterol Injury of back History of IBS Heartburn Non-smoker Shortness of breath on exertion History of echocardiogram Long COVID Left shoulder pain Home Medications ?Medication ?Instructions ?Recorded ?Last Taken ?Type fluticasone propionate 50 1 spray intranasal QDAY 08/22 Unknown History mcg/actuation nasal spray,suspension (Flonase Allergy Relief) acetaminophen 650 mg 650 mg PO DAILY 12/26/24 Unk nown History tablet,extended release (Tylenol Arthritis Pain) estradiol 0.01% (0.1 mg/gram) See Rx Instructions vagi nal 12/26/24 Unknown Rx vaginal cream .COMPLEX #42.5 grams L.acidophilus-B.animalis-B.longum 1 cap PO DAILY 03/02 Unknown History 15 billion cell capsule (Florajen Digestion) Allergy/AdvReac Type Severity Reaction Status Date / Time Sulfa (Sulfonamide Allergy Overheats Verified 03/08/25 05:48 Antibiotics) (sulfa drugs) and gets very tired ciprofloxacin (From Cipro) AdvReac Mild Other Verified 03/08/25 05:48 Family History Father Cancer Stomach Mother Cancer Melanoma Surgical History History of esophagogastroduodenoscopy (EGD) History of colonoscopy History of wisdom tooth extraction History of bilateral cataract extraction History of ear surgery Social History household members: spouse Smoking Status: Never smoker alcohol intake: former substance use type: does not use seatbelt use: always do you feel safe at home: Yes additional social history: - Jorge AC Constitutional Constitutional: Denies fatigue, fever(s), poor appetite, weight gain or weight l oss Gastrointestinal Gastrointestinal: Denies belching, bloating, change in bowel habits, change in stool character, chewing difficulty, coffee ground emesis, constipation, cramping, diarrhea, dyspepsia, dysphagia, early satiety, excessive flatus, fecal incontinence, heartburn, hematemesis, hematochezia, hemorrhoids, loose stools, melena, nausea, odynophagia, rectal bleeding, tenesmus, vomiting or weight changes Vital Signs Vital Signs Vital Signs: 03/08/25 05:49 03/08/25 05:49 Temperature 97.7 F L Temperature Source Temporal Pulse Rate 66 Respiratory Rate 16 Respiratory Pattern Normal Blood Pressure 132/80 H Blood Pressure Mean 97 Blood Pressure Source Monitor Blood Pressure Position Semi-Fowlers Blood Pressure Location Left Arm Pulse Ox 100 Oxygen Delivery Method Room Air Weight Weight: 138 lb 3.677 oz Body Mass Index (BMI) 25.2 Physical Exam Const alert, oriented x3, no apparent distress and healthy appearing General Appearance: cooperative GI normal to inspection, nondistended, normoactive bowel sounds, soft to palpation, non-tender and non-distended Percussion: normal to percussion Rectal Exam: deferred Assessment & Plan Assessment/Plan (1) Gas bloat syndrome: (2) Abdominal pain: PLAN: Assessment and Plan Assessment and Plan (1) Gas bloat syndrome: Status: Acute (2) Heartburn symptom: Status: Acute Plan TIFFANIE RAMSEY, is a 64 F who presents to the office today for establishment with [facility] for concerns regarding LUQ abdominal pain. She has a chronic sinus infection along with complaints of heartburn, excessive gas, bloating and cramping in lower abdomen. Differential diagnoses include: gas bloat syndrome, IBS, GERD. Discussed care plan with her: * psyllium husk 1tsp PO daily * continue Miralax cookie PRN * BRAT diet x4wks * low FODMAP diet x4wks * office FU 5wks
--- NOTE | 2025-03-08 06:37 | PRE.ANES_ITS ---
ASA Classification* ASA Classification ASA Classification: 2 Assessment & Plan Anesthesia* Anesthesia Assessment Anesthesia Assessment: Discussed sedation and/or anesthesia options, risks, benefits, and alternatives with patient/parents/legal guardian/POA. Questions invited. The patient/parents/legal guardian/POA seems to understand and agrees to proceed with anesthesia plan. Reviewed the physical assessment, medical history, allergy history and patient home medications list prior to surgery/procedure/anesthetic and documented any changes. Performed airway and anesthesia risk assessments. Anesthesia Type Anesthesia Type: MAC Anesthesia Focused Assessment* Temperature: 97.7 F Pulse Rate: 66 Blood Pressure: 132/80 Respiratory Rate: 16 Pulse Ox: 100 Airway Assessment Mouth opens: >3 cm Mallampati Score: II Labs Anesthesia Preop lab: CBC WBC, (4.4-11.0) 5.7 K/mm3 08/11/24, 11: RBC, (4.2-5.4) 5.07 M/mm3 08/11/24, 11: Hgb, (12.0-15.0) 14.7 g/dL 08/11/24, 11: Hct, (37-47) 43.9 % 08/11/24, 11:01 Plt Count, (150-450) 296 K/mm3 08/11/24, 11:01 CHEMISTRY Potassium, (3.3-5.1) 4.4 mmol/L 08/11/24, 11:01 Sodium, (133-145) 140 mmol/L 08/11/24, 11:01 BUN, (4-19) 15 mg/dL 08/11/24, 11: Creatinine, (0.70-1.20) 0.75 mg/dL 08/11/24, 11:01 Glucose, (70-99) 88 mg/dL 08/11/24, 11:01 TSH, (0.300-4.200) 0.902 uIU/mL 08/11/24, 11:01 COAG Pre-Assessment Diagnosis/Proposed Procedure Planned Operative Procedure(s): EGD Anesthesia History Anesthesia History - senior care provider: Anesthesia History - senior care provider Hx Hospitalization No 03/02/25 16:01 Any Problems With Anesthesia No 03/02/25 16:01 Cholinesterase deficiency No 03/02/25 16:01 You/Your Family Experience No 03/02/25 16:01 fever (hyperthermia) with Relationship Recent Exposure to Contagious Disease Does patient have nerve No 03/02/25 16:01 stimulator Patient instructed to have device shut off --Does patient have Pacemaker No 03/08/25 05:49 or ICD? When Was Last Pacemaker Check QUESTION #4 FULL TEXT: You/Your Family Experience fever (hyperthermia) with Anesthesia Last Oral Intake Last Oral intake: Last Oral Intake NPO since 19:00 03/08/25 05:49 Meds taken in AM with sips of No 03/08/25 05:49 water? Meds patient instructed to take am of surgery PONV PONV - senior care provider: PONV - senior care provider Female Yes 03/02/25 16:01 HX of Motion Sickness No 03/02/25 16:01 HX of N/V After Surgery No 03/02/25 16:01 Non-Smoker Yes 03/02/25 16:01 Duration of Surgery greater No 03/02/25 16:01 than 60 minutes Number of Risk Factors 2 03/02/25 16:01 PONV Score Moderate Risk 03/02/25 16:01 Height & Weight Height & Weight: Anesthesia: Height & Weight Height 5 ft 2 in 03/08/25 05:49 Weight: 62.7 kg 03/08/25 05:49 Body Mass Index (BMI) 25.2 03/08/25 05:49 Respiratory Assessment Respiratory Assessment - senior care provider: Respiratory Tract Infection Hx - senior care provider Hx Respiratory Tract Infection No 03/02/25 16:01 STOP Sleep Apnea STOP Sleep Apnea - senior care provider: STOP Sleep Apnea - senior care provider Hx Hypertension No 03/02/25 16:01 Hx Sleep Apnea No: SLEEP STUDY SCHEDULED 10 03/02/25 16: CPAP BIPAP Do you snore loudly (louder No 03/02/25 16:01 than talking or can be heard Do you often feel tired/ No 03/02/25 16:01 fatigued/ sleepy during daytime? Has anyone observed you stop No 03/02/25 16:01 breathing during sleep? STOP Results Negative 03/02/25 16:01 QUESTION #5 FULL TEXT : Do you snore loudly (louder than talking or can be heard through closed doors)? Tobacco Use History Tobacco Use History - senior care provider: Tobacco Use History - senior care provider Tobacco Use Smoking Status Never smoker 03/02/25 16:01 Hx Tobacco Use No 03/02/25 16:01 Years Smoking Packs Smoked per Day Smoking Cessation Date was within the last 15 years Hx Smoking Cessation Date Hx Smoking Cessation Counseling Hematologic Medial History Hematologic Hx - senior care provider: Hematologic Medical Hx - legal specialist Hx of Blood Transfusion No 03/02/25 16:01 Hx of Transfusion in last 3 No 03/02/25 16:01 Months Date of Last Transfusion (if within last 3 months) Ever experience any problems No 03/02/25 16:01 with transfusion(s)? Specify any problems Hx of Preganancy in last 3 No 03/02/25 16:01 Months Nurse Filling Out Transfusion MGRIFFITH 03/02/25 16:01 & Questions: Date: 03/02/25 03/02/25 16:01 Time: 16:03 03/02/25 16:01 Patient unable to answer at this time (ie. confused, unrespo /Reproduction History /Reproductive History - senior care provider: /Reproductive Hx- senior care provider Hx Now No 03/02/25 16:01 Gestational Age (in weeks): EDC: Hx Hx Para Hx Section SAB No 03/02/25 16:01 Active Medications Active Medications: Current Medications Generic Name Dose Route Start Last Admin Trade Name Freq PRN Reason Stop Dose Admin Lactated Ringer's 1,000 mls @ 15 mls/hr 03/08/25 06:00 03/08/25 06:01 IV 15 mls/hr .Q48H RJ Administration PFSH Medical History Arthritis High cholesterol Injury of back History of IBS Heartburn Non-smoker Shortness of breath on exertion History of echocardiogram Long COVID Left shoulder pain Home Medications ?Medication ?Instructions ?Recorded ?Last Taken ?Type fluticasone propionate 50 1 spray intranasal QDAY 08/22 Unknown History mcg/actuation nasal spray,suspension (Flonase Allergy Relief) acetaminophen 650 mg 650 mg PO DAILY 12/26/24 Unk nown History tablet,extended release (Tylenol Arthritis Pain) estradiol 0.01% (0.1 mg/gram) See Rx Instructions vagi nal 12/26/24 Unknown Rx vaginal cream .COMPLEX #42.5 grams L.acidophilus-B.animalis-B.longum 1 cap PO DAILY 03/02 Unknown History 15 billion cell capsule (Florajen Digestion) Allergy/AdvReac Type Severity Reaction Status Date / Time Sulfa (Sulfonamide Allergy Overheats Verified 03/08/25 05:48 Antibiotics) (sulfa drugs) and gets very tired ciprofloxacin (From Cipro) AdvReac Mild Other Verified 03/08/25 05:48 Family History Father Cancer Stomach Mother Cancer Melanoma Surgical History History of esophagogastroduodenoscopy (EGD) History of colonoscopy History of wisdom tooth extraction History of bilateral cataract extraction History of ear surgery Social History household members: spouse Smoking Status: Never smoker alcohol intake: former substance use type: does not use seatbelt use: always do you feel safe at home: Yes additional social history: - Jorge Review of Systems (Anesthesia) ROS Narrative System reviewed and no additional complaints, except as documented.
--- NOTE | 2025-03-08 07:00 | OP.EGD_ITS ---
Patient Name: More Hawk Procedure Date: 03/08/2025 6:11 AM Date of : 1960 Age: 64 Procedure: Upper GI endoscopy Indications: Epigastric abdominal pain, Functional Dyspepsia, Indigestion, Failure to respond to medical treatment Providers: Chuck Dalton DO Referring MD: Bello Davenport MD Medicines: Monitored Anesthesia Care Patient Profile: This is a 64 year old female. Refer to note in patient chart for documentation of history and physical. Patient has symptoms of chronic abdominal cramping, chronic abdominal distention, chronic left upper quadrant abdominal pain, acute epigastric abdominal pain and chronic dyspepsia. Complications: No immediate complications. Procedure: Pre-Anesthesia Assessment: - Prior to the procedure, a History and Physical was performed, and patient medications and allergies were reviewed. The patient is competent. The risks and benefits of the procedure and the sedation options and risks were discussed with the patient. All questions were answered and informed consent was obtained. Patient identification and proposed procedure were verified by the physician in the pre-procedure area. Mental Status Examination: alert and oriented. Airway Examination: normal oropharyngeal airway and neck mobility. Respiratory Examination: clear to auscultation. CV Examination: normal. Prophylactic Antibiotics: The patient does not require prophylactic antibiotics. Prior Anticoagulants: The patient has taken no anticoagulant or antiplatelet agents except for NSAID medication. ASA Grade Assessment: II - A patient with mild systemic disease. After reviewing the risks and benefits, the patient was deemed in satisfactory condition to undergo the procedure. The anesthesia plan was to use monitored anesthesia care (MAC). Immediately prior to administration of medications, the patient was re-assessed for adequacy to receive sedatives. The heart rate, respiratory rate, oxygen saturations, blood pressure, adequacy of pulmonary ventilation, and response to care were monitored throughout the procedure. The physical status of the patient was re-assessed after the procedure. After obtaining informed consent, the endoscope was passed under direct vision. Throughout the procedure, the patient's blood pressure, pulse, and oxygen saturations were monitored continuously. The Endoscope was introduced through the mouth, and advanced to the fourth part of the duodenum. Small bowel enteroscopy was deemed necessary. The upper GI endoscopy was accomplished without difficulty. The patient tolerated the procedure well. Scope In: 6:49:06 AM Scope Out: 6:53:52 AM Total Procedure Duration Time 0 hours 4 minutes 46 seconds Findings: The Z-line was irregular and was found 39 cm from the incisors. Biopsies were taken with a cold forceps for histology. Verification of patient identification for the specimen was done. Estimated blood loss was minimal. A small hiatal hernia was present. Patchy mildly erythematous mucosa without bleeding was found in the gastric body. Biopsies were taken with a cold forceps for histology. Biopsies were taken with a cold forceps for Helicobacter pylori testing. Verification of patient identification for the specimen was done. Estimated blood loss was minimal. Patchy mildly congested mucosa without active bleeding and with no stigmata of bleeding was found in the duodenal bulb. Biopsies were taken with a cold forceps for histology. Verification of patient identification for the specimen was done. Estimated blood loss was minimal. Impression: - Z-line irregular, 39 cm from the incisors. Biopsied. - Small hiatal hernia. - Erythematous mucosa in the gastric body. Biopsied. - Congested duodenal mucosa. Biopsied. Recommendation: - Discharge patient to home. - Resume previous diet. - Continue present medications. Procedure Code(s): --- Professional --- 03207, Small intestinal endoscopy, enteroscopy beyond second portion of duodenum, not including ileum; with biopsy, single or multiple CPT copyright 2021 [employer]. All rights reserved. The codes documented in this report are preliminary and upon computer language coder review may be revised to meet current compliance requirements. Chuck Dalton DO 03/08/2025 6:59:07 AM This report has been signed electronically. Number of Addenda: 0 Note Initiated On: 03/08/2025 6:11 AM
--- NOTE | 2025-03-08 07:00 | OP.PROVAT_ITS ---
03/08/2025 Bello Davenport MD [address] [place] [address] Re : Upper GI endoscopy procedure for More Hawk Dear Dr. Davenport This procedure was performed on February. My impressions and recommendations are as follows: Impressions : - Z-line irregular, 39 cm from the incisors. Biopsied. - Small hiatal hernia. - Erythematous mucosa in the gastric body. Biopsied. - Congested duodenal mucosa. Biopsied. Recommendations : - Discharge patient to home. - Resume previous diet. - Continue present medications. My findings are described in the full procedure note, which is enclosed. If I can be of further assistance, please feel free to contact me at . Sincerely, Chuck Dalton, 03/08/2025 6:59:07 AM This report has been signed electronically.
--- NOTE | 2025-03-08 07:04 | PCM.POST.ANE ---
Anesthesia: Postop Eval I Current Vital Signs Temperature: 97.1 F Pulse Rate: 65 Blood Pressure: 92/52 Respiratory Rate: 16 Pulse Ox: 96 Oxygen Delivery Method: Room Air Assessment Airway patent: Yes Spontaneous unlabored respirations: Yes Mental status: Asleep nausea: No Vomiting: No Anesthesia Complication: No Fluid Hydration Crystalloid volume administer (ml): 400 Total IV fluid infused: 400 Progress Note Anesthesia document: Postop Eval 1 completed: Yes
--- NOTE | 2025-03-08 07:19 | PCM.POSTANE2 ---
Anesthesia Postop Eval I Sum Postop Eval Completion status Anesthesia document: Postop Eval 1 completed: Yes Anesthesia Postop Eval I Summary Anesthesia Postop Eval I Summary: Anesthesia Postop Eval I: Assessment Summary Airway patent Yes 03/08/25 07:05 [email or web address] Spontaneous unlabored Yes 03/08/25 07:05 [email or web address] respirations Mental status Asleep 03/08/25 07:05 [email or web address] nausea No 03/08/25 07:05 [email or web address] Vomiting No 03/08/25 07:05 [email or web address] Anesthesia Postop Eval I: Fluid Summary Crystalloid volume administer 400 03/08/25 07:05 [email or web address] (ml) Colloids volume administered ( ml) Blood Product volume administered (ml) Total IV fluid infused 400 03/08/25 07:05 [email or web address] Anesthesia Postop Eval I: Summary Notes Anesthesia Complication No 03/08/25 07:05 [email or web address] Anesthesia Complication Comment: Post-operative progress note Anesthesia: Postop Eval II Evaluation Mental status: Awake Pain Level: 0 nausea: No Vomiting: No
== END 2025-03-08 07:47 | disposition home or self-care (01) ==
LOC: EN 05:26 → AC 05:27
PROVIDERS: PCP Family Medicine Geriatric Medicine; Referring Provider Family Medicine Geriatric Medicine; Visit Provider Internal Medicine Gastroenterology
PROC: 0DJ08ZZ Inspection of Upper Intestinal Tract, Via Natural or Artificial Opening Endoscopic (ICD-10-PCS; CPT 43235; principal; 2025-03-08 06:25)
DX: R10.12 Left upper quadrant pain (principal); K44.9 Diaphragmatic hernia without obstruction or gangrene; K31.89 Other diseases of stomach and duodenum; E78.00 Pure hypercholesterolemia, unspecified; Z98.41 Cataract extraction status, right eye; Z98.42 Cataract extraction status, left eye; R14.0 Abdominal distension (gaseous); K30 Functional dyspepsia; K22.89 Other specified disease of esophagus; K29.50 Unspecified chronic gastritis without bleeding; K20.90 Esophagitis, unspecified without bleeding
CPT/HCPCS: 43239; 88305; J2405

== ENCOUNTER 2025-03-28 10:00 | Outpatient (RCR) | payer MEDICARE, OTHER, SELFPAY ==
[2025-02-08 09:41] VITALS: BMI 25.1
--- NOTE | 2025-03-08 08:17 | PR.ITP_ITS ---
Exercise - Initial Assessment Visit Session Number:: 15 Physician Prescribed Exercise Modalities: Treadmill, [employer] Airdyne AD-7 and Sci[employer] Stepper Target HR:: 116 (92-116) Current RPD:: 1-2 Maximum Exercise HR:: 124 Resting Blood Pressure: 90/70 Maximum Exercise Blood Pressure: 136/70 Minimum SpO2 with exercise: 95 EKG Type: NSR to ST Nutrition/Wt Mgmt - Initial Visit Session Number:: 15 Weight Management Admit Height:: 5 ft 2 in Admit Weight:: 137 lb 8 oz Admit BMI:: 25.1 Nutrition/Wt Mgmt - 30-Day Visit Session Number:: 15 Weight Management Height: 5 ft 2 in Weight:: 137 lb 8 oz BMI: 25.1 Nutrition/Wt Mgmt - 60-Day Visit Date of Eval: 03/08/25 Session Number:: 15 Weight Management Height: 5 ft 2 in Weight:: 137 lb 8 oz BMI: 25.1 Weight Goals Progress:: Goal met (Pt is at a healthy weight. Pt is scheduled to attend nutrition classes with our business data analyst. Heart healthy low sodium diet encouraged. ) Nutrition/Wt Mgmt - 90-Day Visit Session Number:: 15 Weight Management Height: 5 ft 2 in Weight:: 137 lb 8 oz BMI: 25.1 Weight Goals Progress:: Goal met (Pt is at a healthy weight. Pt is scheduled to attend nutrition classes with our business data analyst. Heart healthy low sodium diet encouraged. ) Nutrition/Wt Mgmt - Final Visit Session Number:: 15 Weight Management Height: 5 ft 2 in Weight:: 137 lb 8 oz BMI: 25.1 Psychosocial - Initial Assess Visit Session Number:: 15 Problems/Goals History of Emotional Disorders: Anxious (Pt does not have an official diagnosis of being anxious due to illness.) Psychosocial Goals: 1. Patient is free from overwhelming symtoms of depression (or anxiety, 2. Identifies personal stressors & states the strategies for managing, 3. Identifies activities to decrease isolation and/or symptoms of, 4. Improved psychosocial coping skills., 5. Verbalizes coping strategies., 6. Adequate treatment of depression. and 7. Improved Q.O.L. Self-reported stressors: Recent Illness Psychosocial Test Tool Used:: PHQ-9 Questionnaire PHQ-9 Score: 3 Referred to MD for counseling:: No Referral to Behavioral Health PS - Interventions: Yes: Attend Stress Management Classes Intervention/Plan: See List Interventions/Plan:: Assess stressors,coping strategies & signs of derpression on admission, Instruct/assist pt to develop coping & personal stress Mgt strategies, Refer to Behavioral Health if appropriate, Refer to Physician if appropriate, Instruct patient to recognize signs & symptoms of depression, Instruct patient to recog and Other additional plan/intervention Comments:: Pt to attend stress management class. Will reassess every 30 days. Psychosocial - 30-Day Visit Session Number:: 15 Problems/Goals History of Emotional Disorders: Anxious (Pt does not have an official diagnosis of being anxious due to illness.) Psychosocial Goals: 1. Patient is free from overwhelming symtoms of depression (or anxiety, 2. Identifies personal stressors & states the strategies for managing, 3. Identifies activities to decrease isolation and/or symptoms of, 4. Improved psychosocial coping skills., 5. Verbalizes coping strategies., 6. Adequate treatment of depression. and 7. Improved Q.O.L. Self-reported stressors: Recent Illness Psychosocial Test Tool Used:: PHQ-9 Questionnaire PHQ-9 Score: 3 Referred to MD for counseling:: No Referral to Behavioral Health PS - Interventions: Yes: Attend Stress Management Classes Plan Interventions/Plan:: Assess stressors,coping strategies & signs of derpression on admission, Instruct/assist pt to develop coping & personal stress Mgt strategies, Refer to Behavioral Health if appropriate, Refer to Physician if appropriate, Instruct patient to recognize signs & symptoms of depression, Instruct patient to recog and Other additional plan/intervention Comments:: Pt to attend stress management class. Will reassess every 30 days. Psychosocial - 60-Day Visit Date of Eval: 03/08/25 Session Number:: 15 Problems/Goals History of Emotional Disorders: Anxious (Pt does not have an official diagnosis of being anxious due to illness.) Psychosocial Goals: 1. Patient is free from overwhelming symtoms of depression (or anxiety, 2. Identifies personal stressors & states the strategies for managing, 3. Identifies activities to decrease isolation and/or symptoms of, 4. Improved psychosocial coping skills., 5. Verbalizes coping strategies., 6. Adequate treatment of depression. and 7. Improved Q.O.L. Self-reported stressors: Recent Illness Psychosocial Test Tool Used:: PHQ-9 Questionnaire PHQ-9 Score: 3 Referred to MD for counseling:: No Referral to Behavioral Health PS - Interventions: Yes: Attend Stress Management Classes Plan Interventions/Plan:: Assess stressors,coping strategies & signs of derpression on admission, Instruct/assist pt to develop coping & personal stress Mgt strategies, Refer to Behavioral Health if appropriate, Refer to Physician if appropriate, Instruct patient to recognize signs & symptoms of depression, Instruct patient to recog and Other additional plan/intervention Comments:: Pt to attend stress management class. Will reassess every 30 days. Psychosocial - 90-Day Visit Session Number:: 15 Problems/Goals History of Emotional Disorders: Anxious (Pt does not have an official diagnosis of being anxious due to illness.) Psychosocial Goals: 1. Patient is free from overwhelming symtoms of depression (or anxiety, 2. Identifies personal stressors & states the strategies for managing, 3. Identifies activities to decrease isolation and/or symptoms of, 4. Improved psychosocial coping skills., 5. Verbalizes coping strategies., 6. Adequate treatment of depression. and 7. Improved Q.O.L. Self-reported stressors: Recent Illness Psychosocial Test Tool Used:: PHQ-9 Questionnaire PHQ-9 Score: 3 Referred to MD for counseling:: No Referral to Behavioral Health PS - Interventions: Yes: Attend Stress Management Classes Plan Interventions/Plan:: Assess stressors,coping strategies & signs of derpression on admission, Instruct/assist pt to develop coping & personal stress Mgt strategies, Refer to Behavioral Health if appropriate, Refer to Physician if appropriate, Instruct patient to recognize signs & symptoms of depression, Instruct patient to recog and Other additional plan/intervention Comments:: Pt to attend stress management class. Will reassess every 30 days. Psychosocial - Final Assess Visit Session Number:: 15 Problems/Goals History of Emotional Disorders: Anxious (Pt does not have an official diagnosis of being anxious due to illness.) Psychosocial Goals: 1. Patient is free from overwhelming symtoms of depression (or anxiety, 2. Identifies personal stressors & states the strategies for managing, 3. Identifies activities to decrease isolation and/or symptoms of, 4. Improved psychosocial coping skills., 5. Verbalizes coping strategies., 6. Adequate treatment of depression. and 7. Improved Q.O.L. Self-reported stressors: Recent Illness Psychosocial Test Tool Used:: PHQ-9 Questionnaire PHQ-9 Score: 3 Referred to MD for counseling:: No Referral to Behavioral Health PS - Interventions: Yes: Attend Stress Management Classes Plan Interventions/Plan:: Assess stressors,coping strategies & signs of derpression on admission, Instruct/assist pt to develop coping & personal stress Mgt strategies, Refer to Behavioral Health if appropriate, Refer to Physician if appropriate, Instruct patient to recognize signs & symptoms of depression, Instruct patient to recog and Other additional plan/intervention Comments:: Pt to attend stress management class. Will reassess every 30 days. Oxygen & Oxygen Titration Init Visit Session Number:: 15 Initial Assessment SpO2:: 95 Oxygen & Oxygen Titration 30D Visit Session Number:: 15 Reassessment SpO2:: 95 Oxygen & Oxygen Titration 60D Visit Session Number:: 15 Reassessment SpO2:: 95 Oxygen & Oxygen Titration 90D Visit Session Number:: 15 Reassessment SpO2:: 95 Oxygen & Oxygen Titration CEDRIC Visit Session Number:: 15 Reassessment SpO2:: 95 Core Components - Initial Visit Session Number:: 15 Hypertension BP: 90/70 [place] [employer] Hypertension Guidelines Blood Pressure: 136/70 (Pt's BP's are within AHA normal limits. Will continue to monitor and report to pt's physician if necessary.) Outcomes/Goals: Able to verbalize/achieve optimal blood pressure <130/80 and Incorporates diet changes & exercise for blood pressure control by DC Tobacco - Initial Assessment Tobacco Program Goals Tobacco Use: Non-smoker Gave Education Materials For:: Tobacco Triggers, Pulmonary Disease, Risk Factors, Breathing Techniques, Medical Compliance, Pulmonary A&P, Exacerbation Signs & Symptoms and Stress & Relaxation Diabetes Diabetes:: No Core Components - 30 DAYS Visit Session Number:: 15 Hypertension Resting Blood Pressure:: 90/70 [place] [employer] Hypertension Guidelines Peak Exercise Blood Pressure:: 136/70 (Pt's BP's are within AHA normal limits. Will continue to monitor and report to pt's physician if necessary.) Outcomes/Goals: Able to verbalize/achieve optimal blood pressure <130/80 and Incorporates diet changes & exercise for blood pressure control by DC Interventions/plan: Instruct on optimal blood pressure, hypertension & medications and Instruct on effects of sodium, alcohol, stress, exercise &hypertension 30 day Reassessments:: Met (Pt takes meds as prescribed.) Tobacco - 30-Day Tobacco Program Goals Tobacco Use: Non-smoker Gave Education Materials For:: Tobacco Triggers, Pulmonary Disease, Risk Factors, Breathing Techniques, Medical Compliance, Pulmonary A&P, Exacerbation Signs & Symptoms and Stress & Relaxation Exacerbation Mgmt & Airway Clearance Reassessment: Demonstrates knowledge of O2 Rx at rest and Demonstrates knowledge of O2 Rx with exercise Bronchial Hygiene Plan: Yes: Pt demonstrates correctly for effective cough, Yes: Pt demo correct for CPT, Yes: Pt demo correct for device, Yes: Pt demo correct for NS nasal spray, Yes: Pt demo correct for sputum management, Yes: Pt demo correct for improved hydration, Yes: Pt demo correct for hand hygiene, Yes: Pt demo correct for evalute sputum, Yes: Pt demo correct for verbalize when to call MD and Yes: Pt demo correct for cleaning of respiratory equipment Medication Taking medications 100% of the time:: Met Medication reassessment: Yes: Pt demonstrates correct technique timing for MDI, Yes: Pt demonstrates correct technique timing for DPI, Yes: Pt demonstrates correct technique timing for NEB and Yes: Pt demonstrates correct technique timing for spacer Diabetes Diabetes:: No Core Components - 60 DAYS Visit Date of Eval: 03/08/25 Session Number:: 15 Hypertension Resting Blood Pressure:: 90/70 [place] [employer] Hypertension Guidelines Peak Exercise Blood Pressure:: 136/70 (Pt's BP's are within AHA normal limits. Will continue to monitor and report to pt's physician if necessary.) Outcomes/Goals: Able to verbalize/achieve optimal blood pressure <130/80 and Incorporates diet changes & exercise for blood pressure control by DC Interventions/plan: Instruct on optimal blood pressure, hypertension & medications and Instruct on effects of sodium, alcohol, stress, exercise &hypertension 60 day Reassessments:: Met (Pt takes meds as prescribed.) Tobacco - 60-Day Tobacco Program Goals Tobacco Use: Non-smoker Gave Education Materials For:: Tobacco Triggers, Pulmonary Disease, Risk Factors, Breathing Techniques, Medical Compliance, Pulmonary A&P, Exacerbation Signs & Symptoms and Stress & Relaxation Exacerbation Mgmt & Airway Clearance Reassessment: Demonstrates knowledge of O2 Rx at rest and Demonstrates knowledge of O2 Rx with exercise Bronchial Hygiene Plan: Yes: Pt demonstrates correctly for effective cough, Yes: Pt demo correct for CPT, Yes: Pt demo correct for device, Yes: Pt demo correct for NS nasal spray, Yes: Pt demo correct for sputum management, Yes: Pt demo correct for improved hydration, Yes: Pt demo correct for hand hygiene, Yes: Pt demo correct for evalute sputum, Yes: Pt demo correct for verbalize when to call MD and Yes: Pt demo correct for cleaning of respiratory equipment Medication Medication list reviewed:: Yes Taking medications 100% of the time:: Met Taking medications 100% of the time:: Met Medication reassessment: Yes: Pt demonstrates correct technique timing for MDI, Yes: Pt demonstrates correct technique timing for DPI, Yes: Pt demonstrates correct technique timing for NEB and Yes: Pt demonstrates correct technique timing for spacer Diabetes Diabetes:: No Core Components - 90 DAYS Visit Session Number:: 15 Hypertension Resting Blood Pressure:: 90/70 [place] [employer] Hypertension Guidelines Peak Exercise Blood Pressure:: 136/70 (Pt's BP's are within AHA normal limits. Will continue to monitor and report to pt's physician if necessary.) Outcomes/Goals: Able to verbalize/achieve optimal blood pressure <130/80 and Incorporates diet changes & exercise for blood pressure control by DC Interventions/plan: Instruct on optimal blood pressure, hypertension & medications and Instruct on effects of sodium, alcohol, stress, exercise &hypertension 90 day Reassessments:: Met (Pt takes meds as prescribed.) Tobacco - 90-Day Tobacco Program Goals Tobacco Use: Non-smoker Gave Education Materials For:: Tobacco Triggers, Pulmonary Disease, Risk Factors, Breathing Techniques, Medical Compliance, Pulmonary A&P, Exacerbation Signs & Symptoms and Stress & Relaxation Exacerbation Mgmt & Airway Clearance Bronchial Hygiene Plan: Yes: Pt demonstrates correctly for effective cough, Yes: Pt demo correct for CPT, Yes: Pt demo correct for device, Yes: Pt demo correct for NS nasal spray, Yes: Pt demo correct for sputum management, Yes: Pt demo correct for improved hydration, Yes: Pt demo correct for hand hygiene, Yes: Pt demo correct for evalute sputum, Yes: Pt demo correct for verbalize when to call MD and Yes: Pt demo correct for cleaning of respiratory equipment Medication Medication reassessment: Yes: Pt demonstrates correct technique timing for MDI, Yes: Pt demonstrates correct technique timing for DPI, Yes: Pt demonstrates correct technique timing for NEB and Yes: Pt demonstrates correct technique timing for spacer Diabetes Diabetes:: No Core Components - Final Visit Session Number:: 15 Hypertension Resting Blood Pressure:: 90/70 [place] [employer] Hypertension Guidelines Peak Exercise Blood Pressure:: 136/70 (Pt's BP's are within AHA normal limits. Will continue to monitor and report to pt's physician if necessary.) Outcomes/Goals: Able to verbalize/achieve optimal blood pressure <130/80 and Incorporates diet changes & exercise for blood pressure control by DC Tobacco - Final Tobacco Program Goals Tobacco Use: Non-smoker Exacerbation Mgmt & Airway Clearance Bronchial Hygiene Plan: Yes: Pt demonstrates correctly for effective cough, Yes: Pt demo correct for CPT, Yes: Pt demo correct for device, Yes: Pt demo correct for NS nasal spray, Yes: Pt demo correct for sputum management, Yes: Pt demo correct for improved hydration, Yes: Pt demo correct for hand hygiene, Yes: Pt demo correct for evalute sputum, Yes: Pt demo correct for verbalize when to call MD and Yes: Pt demo correct for cleaning of respiratory equipment Medication Medication reassessment: Yes: Pt demonstrates correct technique timing for MDI, Yes: Pt demonstrates correct technique timing for DPI, Yes: Pt demonstrates correct technique timing for NEB and Yes: Pt demonstrates correct technique timing for spacer Diabetes Diabetes:: No Knowledge Questionaire (BCKQ) Information Information: [place] COPD Knowledge Questionnaire (BCKQ) This questionnaire is designed to find out what you know about your lung problem. It should be completed without help form anyone else. This usually takes between 10 and 20 minutes. Your answers will help us to find out what information you need to help you to understand and manage your lung condition. [employer] which you think is the correct answer.
[2025-03-08 08:27] VITALS: BP 136/70; BP 90/70; O2SAT 95; BMI 25.1
== END 2025-03-30 23:59 ==
LOC: PR 10:00
PROVIDERS: PCP Family Medicine Geriatric Medicine
DX: R06.00 Dyspnea, unspecified (principal); R06.89 Other abnormalities of breathing; U09.9 Post COVID-19 condition, unspecified
CPT/HCPCS: 97150; 94626

== ENCOUNTER 2025-04-25 09:30 | Outpatient (RCR) | payer MEDICARE, OTHER, SELFPAY ==
[2025-03-08 08:27] VITALS: BMI 25.1
--- NOTE | 2025-04-05 07:19 | PCM.PR.TP ---
Exercise - Initial Assessment Visit Session Number:: 23 Physician Prescribed Exercise Modalities: Treadmill, [employer] Airdyne AD-7 and [employer] Stepper Current METSs:: 4 Target HR:: 123 (92-123) Current RPD:: 2-3 Maximum Exercise HR:: 141 Resting Blood Pressure: 134/90 Maximum Exercise Blood Pressure: 140/80 Minimum SpO2 with exercise: 98 (room air) EKG Type: NSR to ST w/RBBB and rare ectopy. Nutrition/Wt Mgmt - Initial Visit Session Number:: 23 (Nutrition score of 1.) Weight Management Admit Height:: 5 ft 2 in Admit Weight:: 137 lb 8 oz Admit BMI:: 25.1 Nutrition/Wt Mgmt - 30-Day Visit Date of Eval: 04/05/25 Session Number:: 23 (Nutrition score of 1.) Weight Management Height: 5 ft 2 in Weight:: 137 lb 8 oz BMI: 25.1 Nutrition/Wt Mgmt - 60-Day Visit Session Number:: 23 (Nutrition score of 1.) Weight Management Height: 5 ft 2 in Weight:: 137 lb 8 oz BMI: 25.1 Weight Goals Progress:: Goal met (Pt is at a healthy weight. Pt is scheduled to attend nutrition classes with our medical cost consultant. Heart healthy low sodium diet encouraged. ) Nutrition/Wt Mgmt - 90-Day Visit Date of Eval: 04/05/25 Session Number:: 23 (Nutrition score of 1.) Weight Management Height: 5 ft 2 in Weight:: 137 lb 8 oz BMI: 25.1 Weight Goals Progress:: Goal met (Pt is at a healthy weight. Pt is scheduled to attend nutrition classes with our medical cost consultant. Heart healthy low sodium diet encouraged. ) Nutrition/Wt Mgmt - Final Visit Session Number:: 23 (Nutrition score of 1.) Weight Management Height: 5 ft 2 in Weight:: 137 lb 8 oz BMI: 25.1 Psychosocial - Initial Assess Visit Session Number:: 23 (Nutrition score of 1.) Problems/Goals History of Emotional Disorders: Anxious (Anxious due to illness. Pt does not have an official diagnosis of anxiety.) Psychosocial Goals: 1. Patient is free from overwhelming symtoms of depression (or anxiety, 2. Identifies personal stressors & states the strategies for managing, 3. Identifies activities to decrease isolation and/or symptoms of, 4. Improved psychosocial coping skills., 5. Verbalizes coping strategies., 6. Adequate treatment of depression. and 7. Improved Q.O.L. Self-reported stressors: Recent Illness Psychosocial Test Tool Used:: Pulmonary QOL and PHQ-9 Questionnaire PHQ-9 Score: 3 Referred to MD for counseling:: No Referral to Behavioral Health PS - Interventions: Yes: Attend Stress Management Classes Intervention/Plan: See List Interventions/Plan:: Assess stressors,coping strategies & signs of derpression on admission, Instruct/assist pt to develop coping & personal stress Mgt strategies, Refer to Behavioral Health if appropriate, Refer to Physician if appropriate, Instruct patient to recognize signs & symptoms of depression and Instruct patient to recog Comments:: Pt will attend stress management class. Will continue to monitor and report to pt's physician if necessary. Psychosocial - 30-Day Visit Date of Eval: 04/05/25 Session Number:: 23 (Nutrition score of 1.) Problems/Goals History of Emotional Disorders: Anxious (Anxious due to illness. Pt does not have an official diagnosis of anxiety.) Psychosocial Goals: 1. Patient is free from overwhelming symtoms of depression (or anxiety, 2. Identifies personal stressors & states the strategies for managing, 3. Identifies activities to decrease isolation and/or symptoms of, 4. Improved psychosocial coping skills., 5. Verbalizes coping strategies., 6. Adequate treatment of depression. and 7. Improved Q.O.L. Self-reported stressors: Recent Illness Psychosocial Test Tool Used:: Pulmonary QOL and PHQ-9 Questionnaire PHQ-9 Score: 3 Referred to MD for counseling:: No Referral to Behavioral Health PS - Interventions: Yes: Attend Stress Management Classes Plan Interventions/Plan:: Assess stressors,coping strategies & signs of derpression on admission, Instruct/assist pt to develop coping & personal stress Mgt strategies, Refer to Behavioral Health if appropriate, Refer to Physician if appropriate, Instruct patient to recognize signs & symptoms of depression and Instruct patient to recog Comments:: Pt will attend stress management class. Will continue to monitor and report to pt's physician if necessary. Psychosocial - 60-Day Visit Session Number:: 23 (Nutrition score of 1.) Problems/Goals History of Emotional Disorders: Anxious (Anxious due to illness. Pt does not have an official diagnosis of anxiety.) Psychosocial Goals: 1. Patient is free from overwhelming symtoms of depression (or anxiety, 2. Identifies personal stressors & states the strategies for managing, 3. Identifies activities to decrease isolation and/or symptoms of, 4. Improved psychosocial coping skills., 5. Verbalizes coping strategies., 6. Adequate treatment of depression. and 7. Improved Q.O.L. Self-reported stressors: Recent Illness Psychosocial Test Tool Used:: Pulmonary QOL and PHQ-9 Questionnaire PHQ-9 Score: 3 Referred to MD for counseling:: No Referral to Behavioral Health PS - Interventions: Yes: Attend Stress Management Classes Plan Interventions/Plan:: Assess stressors,coping strategies & signs of derpression on admission, Instruct/assist pt to develop coping & personal stress Mgt strategies, Refer to Behavioral Health if appropriate, Refer to Physician if appropriate, Instruct patient to recognize signs & symptoms of depression and Instruct patient to recog Comments:: Pt will attend stress management class. Will continue to monitor and report to pt's physician if necessary. Psychosocial - 90-Day Visit Date of Eval: 04/05/25 Session Number:: 23 Problems/Goals History of Emotional Disorders: Anxious (Anxious due to illness. Pt does not have an official diagnosis of anxiety.) Psychosocial Goals: 1. Patient is free from overwhelming symtoms of depression (or anxiety, 2. Identifies personal stressors & states the strategies for managing, 3. Identifies activities to decrease isolation and/or symptoms of, 4. Improved psychosocial coping skills., 5. Verbalizes coping strategies., 6. Adequate treatment of depression. and 7. Improved Q.O.L. Self-reported stressors: Recent Illness Psychosocial Test Tool Used:: Pulmonary QOL and PHQ-9 Questionnaire PHQ-9 Score: 3 Referred to MD for counseling:: No Referral to Behavioral Health PS - Interventions: Yes: Attend Stress Management Classes Plan Interventions/Plan:: Assess stressors,coping strategies & signs of derpression on admission, Instruct/assist pt to develop coping & personal stress Mgt strategies, Refer to Behavioral Health if appropriate, Refer to Physician if appropriate, Instruct patient to recognize signs & symptoms of depression and Instruct patient to recog Comments:: Pt will attend stress management class. Will continue to monitor and report to pt's physician if necessary. Psychosocial - Final Assess Visit Session Number:: 23 Problems/Goals History of Emotional Disorders: Anxious (Anxious due to illness. Pt does not have an official diagnosis of anxiety.) Psychosocial Goals: 1. Patient is free from overwhelming symtoms of depression (or anxiety, 2. Identifies personal stressors & states the strategies for managing, 3. Identifies activities to decrease isolation and/or symptoms of, 4. Improved psychosocial coping skills., 5. Verbalizes coping strategies., 6. Adequate treatment of depression. and 7. Improved Q.O.L. Self-reported stressors: Recent Illness Psychosocial Test Tool Used:: Pulmonary QOL and PHQ-9 Questionnaire PHQ-9 Score: 3 Referred to MD for counseling:: No Referral to Behavioral Health PS - Interventions: Yes: Attend Stress Management Classes Plan Interventions/Plan:: Assess stressors,coping strategies & signs of derpression on admission, Instruct/assist pt to develop coping & personal stress Mgt strategies, Refer to Behavioral Health if appropriate, Refer to Physician if appropriate, Instruct patient to recognize signs & symptoms of depression and Instruct patient to recog Comments:: Pt will attend stress management class. Will continue to monitor and report to pt's physician if necessary. Oxygen & Oxygen Titration Init Visit Session Number:: 23 (Nutrition score of 1.) Initial Assessment SpO2:: 98 (room air) Oxygen & Oxygen Titration 30D Visit Date of Eval: 04/05/25 Session Number:: 23 Reassessment Breath Sounds:: Clear SpO2:: 98 (room air) Oxygen & Oxygen Titration 60D Visit Date of Eval: 04/05/25 Session Number:: 23 Reassessment Breath Sounds:: Clear SpO2:: 98 (room air) Oxygen & Oxygen Titration 90D Visit Date of Eval: 04/05/25 Session Number:: 23 Reassessment Oxygen & Oxygen Titration 90 days: None Breath Sounds:: Clear SpO2:: 98 (room air) Oxygen & Oxygen Titration CEDRIC Visit Date of Eval: 04/05/25 Session Number:: 23 Reassessment Breath Sounds:: Clear SpO2:: 98 (room air) Core Components - Initial Visit Session Number:: 23 Hypertension BP: 134/90 [employer] [employer] Hypertension Guidelines Blood Pressure: 140/80 Outcomes/Goals: Able to verbalize/achieve optimal blood pressure <130/80 and Incorporates diet changes & exercise for blood pressure control by DC Tobacco - Initial Assessment Tobacco Program Goals Do you have family support?: Yes Tobacco Use: Non-smoker Diabetes Diabetes:: No Core Components - 30 DAYS Visit Date of Eval: 04/05/25 Session Number:: 23 Hypertension Resting Blood Pressure:: 134/90 [place] [employer] Hypertension Guidelines Peak Exercise Blood Pressure:: 140/80 Outcomes/Goals: Able to verbalize/achieve optimal blood pressure <130/80 and Incorporates diet changes & exercise for blood pressure control by DC Interventions/plan: Instruct on optimal blood pressure, hypertension & medications and Instruct on effects of sodium, alcohol, stress, exercise &hypertension 30 day Reassessments:: Progressing Reassessment Notes & Comments:: Pt's BP's are within AHA normal limits on most days. Will continue to monitor and report to pt's physician if necessary. Tobacco - 30-Day Tobacco Program Goals Learning Barriers: Participates in education Do you have family support?: Yes Tobacco Use: Non-smoker Exacerbation Mgmt & Airway Clearance Bronchial Hygiene Plan: Yes: Pt demonstrates correctly for effective cough, Yes: Pt demo correct for CPT, Yes: Pt demo correct for device, Yes: Pt demo correct for NS nasal spray, Yes: Pt demo correct for sputum management, Yes: Pt demo correct for improved hydration, Yes: Pt demo correct for hand hygiene, Yes: Pt demo correct for evalute sputum, Yes: Pt demo correct for verbalize when to call MD and Yes: Pt demo correct for cleaning of respiratory equipment Medication Medication reassessment: Yes: Pt demonstrates correct technique timing for MDI, Yes: Pt demonstrates correct technique timing for DPI, Yes: Pt demonstrates correct technique timing for NEB and Yes: Pt demonstrates correct technique timing for spacer Diabetes Diabetes:: No Core Components - 60 DAYS Visit Session Number:: 23 Hypertension Resting Blood Pressure:: 134/90 [place] [employer] Hypertension Guidelines Peak Exercise Blood Pressure:: 140/80 Outcomes/Goals: Able to verbalize/achieve optimal blood pressure <130/80 and Incorporates diet changes & exercise for blood pressure control by DC Interventions/plan: Instruct on optimal blood pressure, hypertension & medications and Instruct on effects of sodium, alcohol, stress, exercise &hypertension 60 day Reassessments:: Progressing Reassessment Notes & Comments:: Pt's BP's are within AHA normal limits on most days. Will continue to monitor and report to pt's physician if necessary. Tobacco - 60-Day Tobacco Program Goals Learning Barriers: Participates in education Do you have family support?: Yes Tobacco Use: Non-smoker Exacerbation Mgmt & Airway Clearance Bronchial Hygiene Plan: Yes: Pt demonstrates correctly for effective cough, Yes: Pt demo correct for CPT, Yes: Pt demo correct for device, Yes: Pt demo correct for NS nasal spray, Yes: Pt demo correct for sputum management, Yes: Pt demo correct for improved hydration, Yes: Pt demo correct for hand hygiene, Yes: Pt demo correct for evalute sputum, Yes: Pt demo correct for verbalize when to call MD and Yes: Pt demo correct for cleaning of respiratory equipment Medication Medication reassessment: Yes: Pt demonstrates correct technique timing for MDI, Yes: Pt demonstrates correct technique timing for DPI, Yes: Pt demonstrates correct technique timing for NEB and Yes: Pt demonstrates correct technique timing for spacer Diabetes Diabetes:: No Core Components - 90 DAYS Visit Date of Eval: 04/05/25 Session Number:: 23 Hypertension Resting Blood Pressure:: 134/90 [place] [employer] Hypertension Guidelines Peak Exercise Blood Pressure:: 140/80 Outcomes/Goals: Able to verbalize/achieve optimal blood pressure <130/80 and Incorporates diet changes & exercise for blood pressure control by DC Interventions/plan: Instruct on optimal blood pressure, hypertension & medications and Instruct on effects of sodium, alcohol, stress, exercise &hypertension 90 day Reassessments:: Progressing Reassessment Notes & Comments:: Pt's BP's are within AHA normal limits on most days. Will continue to monitor and report to pt's physician if necessary. Tobacco - 90-Day Tobacco Program Goals Learning Barriers: Participates in education Do you have family support?: Yes Tobacco Use: Non-smoker Exacerbation Mgmt & Airway Clearance Reassessment: Demonstrates knowledge of O2 Rx at rest and Demonstrates knowledge of O2 Rx with exercise Bronchial Hygiene Plan: Yes: Pt demonstrates correctly for effective cough, Yes: Pt demo correct for CPT, Yes: Pt demo correct for device, Yes: Pt demo correct for NS nasal spray, Yes: Pt demo correct for sputum management, Yes: Pt demo correct for improved hydration, Yes: Pt demo correct for hand hygiene, Yes: Pt demo correct for evalute sputum, Yes: Pt demo correct for verbalize when to call MD and Yes: Pt demo correct for cleaning of respiratory equipment Medication Medication list reviewed:: Yes Taking medications 100% of the time:: Met Medication reassessment: Yes: Pt demonstrates correct technique timing for MDI, Yes: Pt demonstrates correct technique timing for DPI, Yes: Pt demonstrates correct technique timing for NEB and Yes: Pt demonstrates correct technique timing for spacer Diabetes Diabetes:: No Core Components - Final Visit Session Number:: 23 Hypertension Resting Blood Pressure:: 134/90 [place] [employer] Hypertension Guidelines Peak Exercise Blood Pressure:: 140/80 Outcomes/Goals: Able to verbalize/achieve optimal blood pressure <130/80 and Incorporates diet changes & exercise for blood pressure control by DC Tobacco - Final Tobacco Program Goals Learning Barriers: Participates in education Do you have family support?: Yes Tobacco Use: Non-smoker Exacerbation Mgmt & Airway Clearance Bronchial Hygiene Plan: Yes: Pt demonstrates correctly for effective cough, Yes: Pt demo correct for CPT, Yes: Pt demo correct for device, Yes: Pt demo correct for NS nasal spray, Yes: Pt demo correct for sputum management, Yes: Pt demo correct for improved hydration, Yes: Pt demo correct for hand hygiene, Yes: Pt demo correct for evalute sputum, Yes: Pt demo correct for verbalize when to call MD and Yes: Pt demo correct for cleaning of respiratory equipment Medication Medication reassessment: Yes: Pt demonstrates correct technique timing for MDI, Yes: Pt demonstrates correct technique timing for DPI, Yes: Pt demonstrates correct technique timing for NEB and Yes: Pt demonstrates correct technique timing for spacer Diabetes Diabetes:: No Knowledge Questionaire (BCKQ) Information Information: [facility] COPD Knowledge Questionnaire (BCKQ) This questionnaire is designed to find out what you know about your lung problem. It should be completed without help form anyone else. This usually takes between 10 and 20 minutes. Your answers will help us to find out what information you need to help you to understand and manage your lung condition. [employer] [place] [employer] which you think is the correct answer.
[2025-04-05 07:30] VITALS: BP 134/90; BP 140/80; O2SAT 98; BMI 25.1
== END 2025-04-29 23:59 ==
LOC: PR 09:30
PROVIDERS: PCP Family Medicine Geriatric Medicine
DX: R06.00 Dyspnea, unspecified (principal); R06.89 Other abnormalities of breathing; U09.9 Post COVID-19 condition, unspecified
CPT/HCPCS: 97150; 94626; G0239

== ENCOUNTER → 2025-04-28 | Outpatient (CLI) | payer MEDICARE, OTHER, SELFPAY ==
[2025-04-05 07:30] VITALS: BMI 25.1
--- OUTSIDE RECORDS SUMMARY | 2025-04-28 07:24 | XMS RPT_ITS | CCD ---
Author Organization [facility] Care Team Providers Care Microbiology Teacher Name Role Phone Miscellaneous, SJ Attending Unavailable Miscellaneous, SJ Primary Care Unavailable Miscellaneous, SJ Consulting Unavailable Miscellaneous, SJ Attending Unavailable Miscellaneous, SJ Primary Care Unavailable Miscellaneous, SJ Consulting Unavailable Miscellaneous, SJ Attending Unavailable Miscellaneous, SJ Primary Care Unavailable Miscellaneous, SJ Consulting Unavailable Mesha Garcia Attending Unavailable Piero Ortiz Primary Care Unavailable Piero Ortiz Consulting Unavailable Nathalia Lou Attending Unavailable Piero Ortiz Primary Care Unavailable Piero Ortiz Consulting Unavailable Piero Ortiz Unavailable Unavailable Nathalia Lou Unavailable Unavailable BeeCash Unavailable Unavailable Piero Ortiz Unavailable Unavailable Nathalia Lou Unavailable Unavailable Km Jones Unavailable Unavailable Blanca Russell Unavailable Unavailable Cortes Garcia Unavailable Unavailable Piero Ortiz Unavailable Unavailable Tonie, Yung Unavailable Unavailable Piero Ortiz Unavailable Unavailable Nathalia Lou Unavailable Unavailable Km Jones Unavailable Unavailable Km Jones Unavailable UnavailNathalia Dumont Unavailable Unavailable Cortes Garcia Unavailable Unavailable Piero Ortiz Unavailable Unavailable Unavailable Unavailable Unavailable Taqueria Vieira MD Primary Care Provider Taqueria Vieira MD Primary Care Provider Taqueria Vieira MD Primary Care Provider Dr. Piero Ortiz Primary Care Unavailab alice Lou, Dr. Nathalia Louise Attending Unavailjorge Lou, Dr. Nathalia Louise Referring Unavailjorge Ortiz, Dr. Piero Torrez Primary Care Unavailab NATHALIA Fernandez Attending Unavailable NATHALIA LOU Referring Unavailable Gómez LEGGER PRESS OPERATOR.PANAMA HAT HYDRAULIC PRESS OPERATOR, Jeremy M Primary Care Provider Vish CASTRO, Celi Unavailable Alyssa CASTRO, Joe Unavailable Shahram PA-C, Autumn Unavailable Phillip CASTRO, Dominique Gonsales Unavailable Gómez LEGGER PRESS OPERATOR.PANAMA HAT HYDRAULIC PRESS OPERATOR, Jeremy Primary Care Provider CHENG CASTRO, JASWANT Attending Unavailable CHENG CASTRO, JASWANT Attending Unavailable Bello Davenport Chi Primary Care Provider Gómez LEGGER PRESS OPERATOR.PANAMA HAT HYDRAULIC PRESS OPERATOR, Jeremy Primary Care Provider BELLO DAVENPORT CHI Primary Care Unavailable JAYME INGRAM Attending Unavailable JEREMY RAMIREZ Referring Unavailable JEREMY RAMIREZ Primary Care Unavailable Issac CASTRO, Dr. Bello Mac Primary Care Provider Issac CASTRO, Dr. Bello Mac Attending Provider [phone] Issac CASTRO, Dr. Bello Mac Referring Provider Issac CASTRO, Dr. Bello Mac Primary Care Provider [phone] Issac CASTRO, Dr. Bello Mac Referring Provider Shan Bolaños MD Attending Provider [phone] Kevin CASTRO, Dr. Castellon Attending Provider [phone] Pina Reyes Attending Provider Lise Orozco Attending Provider Issac CASTRO, Dr. Bello Mac Primary Care Provider Issac CASTRO, Dr. Bello Mac Referring Provider SHANE, ASHLEY Attending Provider SHANE, ASHLEY Referring Provider SHANE, ASHLEY Attending Provider SHANE, ASHLEY Referring Provider [phone] Marshal CEMENT KILN OPERATOR-CLise Referring Provider SHANE, ASHLEY Attending Provider SHANE, ASHLEY Referring Provider SHANE, ASHLEY Attending Provider [phone] SHANE, ASHLEY Referring Provider [phone] TAQUERIA VIEIRA Referring Unavailable ISSAC, BELLO CHI Primary Care Unavailable Issac CASTRO, Dr. Bello Mac Primary Care Physician [phone] Issac CASTRO, Dr. Bello Mac Referring Provider Marshal CEMENT KILN OPERATOR-Lise Verdin Attending Physician SHANE, ASHLEY Attending Physician SHANE, ASHLEY Attending Physician Sha WASHINGTON, Dr. Woods Attending Physician Dariel CASTRO, Dr. Amezquita Nurse Practitioner Dr. Chuck Dalton DO Nurse Practitioner Lynn CASTRO, Dr. Canales Attending Physician ISSAC, BELLO CHI Primary Care Unavailable DARIEL, TAQUERIA Burnett Referring Unavailable ANNA TABOR Attending Unavailable ISSAC, BELLO CHI Primary Care Unavailable DARIEL, TAQUERIA Burnett Referring Unavailable SHANE, ASHLEY Attending Unavailable ISSAC, BELLO CHI Primary Care Unavailable DARIEL, TAQUERIA Burnett Referring Unavailable JANINA MIRANDA Attending Unavailable ISSAC, BELLO CHI Primary Care Unavailable DARIEL, TAQUERIA Burnett Attending Unavailable ADARSH CAMACHO Attending Unavailable ISSAC, BELLO CHI Primary Care Unavailable ISSAC, BELLO CHI Primary Care Unavailable PODGLENDY MCGUIRE Attending Unavailable ISSAC, BELLO CHI Primary Care Unavailable DARIEL, TAQUERIA Burnett Referring Unavailable ISSAC, BELLO CHI Primary Care Unavailable DARIEL, TAQUERIA Burnett Referring Unavailable ISSAC, BELLO CHI Primary Care Unavailable DARIEL, TAQUERIA Burnett Referring Unavailable ISSAC, BELLO CHI Primary Care Unavailable DARIEL, TAQUERIA Burnett Referring Unavailable UMEDA, NAOKI Attending Unavailable ISSAC, BELLO CHI Primary Care Unavailable DARIEL, TAQUERIA Burnett Referring Unavailable ISSAC, BELLO CHI Primary Care Unavailable DARIEL, TAQUERIA Burnett Referring Unavailable ISSAC, BELLO CHI Primary Care Unavailable MISSY, OZZIE RIGO Attending Unavailable ISSAC, BELLO CHI Primary Care Unavailable OZZIE LOUIS Referring Unavailable ISSAC, BELLO CHI Primary Care Unavailable SELF Referring Unavailable TAQUERIA VIEIRA Attending Unavailable ISSAC, BELLO CHI Primary Care Unavailable DARIELTAQUERIA Referring Unavailable ISSAC, BELLO CHI Primary Care Unavailable DARIELTAQUERIA Referring Unavailable ISSAC, BELLO CHI Primary Care Unavailable DARIEL, TAQUERIA Burnett Referring Unavailable Issac, Bello Chi Primary Care Unavailable Issac, Bello Chi Referring Unavailable Ally Bailey Attending Unavailable Issac, Bello Chi Primary Care Unavailable Issac, Bello Chi Referring Unavailable Shan Bolaños Attending Unavailable Issac, Bello Chi Primary Care Unavailable Ravinder Brown Attending Unavailable Issac, Bello Chi Primary Care Unavailable Ravinder Brown Attending Unavailable Pina Robles Attending Unavailable Issac, Bello Chi Primary Care Unavailable Issac, Bello Chi Referring Unavailable Issac, Bello Chi Primary Care Unavailable Issac, Bello Chi Referring Unavailable Lise Araya Attending Unavailable Issac, Bello Chi Primary Care Unavailable Issac, Bello Chi Referring Unavailable Shan Bolaños Attending Unavailable Issac, Bello Chi Referring Unavailable Issac, Bello Chi Primary Care Unavailable Shan Bolaños Attending Unavailable Issac, Bello Chi Primary Care Unavailable Issac, Bello Chi Referring Unavailable Chuck Dalton Attending Unavailable Taqueria Vieira Consulting Unavailable Chuck Dalton Consulting Unavailable Issac, Bello Chi Primary Care Unavailable Jose Guo Attending Unavailable Jose Guo Referring Unavailable Issac, Bello Chi Attending Unavailable Issac, Bello Chi Primary Care Unavailable Issac, Bello Chi Attending Unavailable Issac, Bello Chi Primary Care Unavailable Issac, Bello Chi Referring Unavailable Issac, Bello Chi Primary Care Unavailable Lise Araya Referring Unavailable Lise Araya Attending Unavailable Issac, Bello Chi Primary Care Unavailable Jose Guo Referring Unavailable Jose Guo Attending Unavailable Issac, Bello Chi Primary Care Unavailable Issac, Bello Chi Referring Unavailable Chuck Dalton Attending Unavailable Taqueria Vieira Consulting Unavailable Issac, Bello Chi Primary Care Unavailable Jose Guo Referring Unavailable Jose Guo Attending Unavailable Issac, Bello Chi Primary Care Unavailable Jose Guo Attending Unavailable Jose Guo Referring Unavailable Issac, Bello Chi Primary Care Unavailable Jose Guo Attending Unavailable Jose Guo Referring Unavailable Allergies Allergy Classification Reported Allergen(s) Allergy Type Date of Onset Reaction(s) Facility Proton Pump Inhibitors (18 sources) pantoprazole; Translations: [Protonix] Drug Allergy Dizziness, Other [facility] [address] Work Phone: [phone] Sulfonamides (antibiotic) (18 sources) Sulfonamides (Antibiotic); Translations: [Sulfa Drugs] Drug Allergy Other, Unknown [facility] [address] Work Phone: [phone] (20 sources) Sulfonamides (Antibiotic); Translations: [Sulfa Drugs] drug allergy Other [facility] [place] [address] DO Work Phone: [phone] (1 source) drug allergy Unknown [facility] [place] [address] DO Work Phone: [phone] (1 source) drug allergy Dizziness [facility] [place] [address] DO Work Phone: [phone] (17 sources) Omeprazole; Translations: [omeprazole] Drug Allergy Other -Otolaryngo [facility] Work Phone: (20 sources) pantoprazole; Translations: [Protonix] Drug Allergy Dizziness -Otolaryngo [facility] Work Phone: (20 sources) Sulfamethoxazole; Translations: [Gantanol] Drug Allergy Unknown -Otolaryngo [facility] Work Phone: (20 sources) Cetirizine; Translations: [CETIRIZINE HCL] Drug Allergy 6 Intolerance [facility] Work Phone: (20 sources) fexofenadine; Translations: [FEXOFENADINE HCL] Drug Allergy 6 Intolerance [facility] Work Phone: (20 sources) Loratadine; Translations: [LORATADINE] Drug Allergy 6 Intolerance [facility] Work Phone: (20 sources) Sulfonamides (Antibiotic); Translations: [SULFA (SULFONAMIDE ANTIBIOTICS)] Propensity to adverse reactions 5 Rash [facility] Work Phone: (20 sources) atorvastatin; Translations: [ATORVASTATIN] Drug Allergy 4 GI Upset [facility] (11 sources) Ciprofloxacin; Translations: [CIPROFLOXACIN] Drug Allergy 5 Other: See Comments [facility] Comment on above: Abdominal pain (7 sources) Sulfonamides (Antibiotic) Allergy to substance 5 Overheats and gets very tired [facility] (5 sources) Doxycycline; Translations: [DOXYCYCLINE] Drug Allergy 5 Other: See Comments [facility] (1 source) Ciprofloxacin Drug Allergy 5 [facility] Repository (1 source) Doxycycline Drug Allergy 5 [facility] Repository (1 source) Sulfonamides (Antibiotic) Drug allergy (disorder) 5 [facility] Repository Medications Current Medications Medication Drug Class(es) Dates Sig (Normalized) Sig (Original) 8 hr acetaminophen 650 mg extended release oral tablet (7 sources) Start: 12-26-2024 take 1 tablet by mouth once daily Start: 12-26-2024 take 1 tablet by mouth every e ight hours [id number] actuat albuterol 0.09 mg/actuat metered dose inhaler (4 sources) beta2-Adrenergic Agonist Start: 12-29-2024 take 2 puff(s) by inhalation every six hours as needed for wheezing albuterol HFA (PROVENTIL HFA, VENTOLIN HFA) 90 mcg/actuation inhaler Inhale 2 puffs as instructed every 6 hours as needed for wheezing/shortness of breath. 1 each 1 12/29/2024 Active amoxicillin 875 mg oral tablet (3 sources) Penicillin-class Antibacterial Start: 06-03-2022 End: 06-10-2022 take 1 tablet by mouth twice daily amoxicillin (AMOXIL) 875 mg tablet Take 1 tablet by mouth twice daily for 7 days. 14 tablet 0 06/03/2022 06/10/2022 Active Start: 03-02-2022 End: 03-09-2022 take 1 tablet by mouth twice daily amoxicillin (AMOXIL) 875 mg tablet Indications: Acute otitis media, right Take 1 tablet by mouth twice daily for 7 days. 14 tablet 0 03/02/2022 03/09/2022 Active Comment on above: Take 1 tablet by arpit th twice daily for 7 days. bifidobacterium animalis [id number] unt / bifidobacterium longum [id number] unt / lactobacillus acidophilus [id number] unt oral capsule (2 sources) Start: 03-02-20 25 doxycycline monohydrate 100 mg oral tablet (2 sources) Tetracycline-clas s Drug Start: 05-29-20 End: 06-05-19 23 take 1 tablet by mouth twice daily doxycycline monohydrate 100 mg tablet Indications: Rhinosinusitis Take 1 tablet by mouth twice daily for 7 days. 14 tablet 0 05/29/2022 06/05/2022 Active Comment on above: Take 1 tablet by [facility] twice daily for 7 days. estradiol 0.1 mg/ml vaginal cream (20 sources) Estrogen Start: 12-27-19 estradiol (ESTRACE) 0.01 % (0.1 mg/gram) vaginal cream USE A SMALL AMOUNT OF CREAM VAGINALLY DIRECTED EVERY OTHER DAY FOR 4 WEEKS, THEN USE TIWCE WEEKLY THEREAFTER. 12/26/2024 Active Start: 12-26-2024 Start: 03-03-2021 Estradiol 0.1 MG/GM Vaginal Cream APPLY A PEA-SIZED AMOUNT TO VAGINAL OPENING EVERY WEDNESDAY, WEDNESDAY, AND WEDNESDAY EVENING. Quantity: 1 Refills: 3 Ordered: 11-Dec-2021 Fannie Kirkland MD Start : 03-Mar-2021 Active may use pea size amount nightly first two weeks, then M, W, F Start: 12-13-2019 Estradiol 10 M CG Vaginal Tablet INSERT 1 TABLET Bedtime twice weekly Quantity: 10 Refills: 11 Nathalia Lou MD Start : 13-Dec-2019 Active Start: 08-15-2019 Estradiol 0.1 MG/GM Vaginal Cream INSERT 1 APPLICATOR Daily for two weeks, then twice per week Fill applicator to the first blanca. Quantity: 1 Refills: 3 Nathalia Lou MD Start : 15-Aug-2019 Active 42.5 GM Tube fluticasone propionate 0.05 mg/actuat metered dose nasal spray (20 sources) Corticosteroid Start: 08-31-2024 take 50 ug nasal rou te once daily Start: 01-04-2020 End: 05-06-2023 take 2 spray(s) nasal route once daily fluticasone (FLONASE) 50 mcg/actuation nasal spray Indications: Allergic rhinitis, unspecified seasonality, unspecified trigger Use 2 Sprays in each nostril once daily. 3 Bottle 3 09/12/2020 Active Start: 03-02-2019 take 2 spray(s) nasa l route once daily Fluticasone Propionate 50 MCG/ACT Nasal Suspension USE 2 SPRAYS IN EACH NOSTRIL ONCE DAILY Quantity: 48 Refills: 3 Ordered: 26-Dec-2019 Yung Schilling MD Start : 02-Mar-2019 Active Start: 07-05-2017 take 2 spray(s) nasa l route once daily Fluticasone Propionate 50 MCG/ACT Nasal Suspension USE 2 SPRAYS IN EACH NOSTRIL ONCE DAILY Quantity: 48 Refills: 2 Piero Ortiz DO Start : 05-Jul-2017 Active Comment on above: Use 2 Sprays in each nostril once daily. Naltrexone (10 sources) Opioid Antagonist Start: 5 naltrexone (NALTREX) 1.5 mg cap Indications: Chronic fatigue syndrome , Brain fog , Arthralgia, unspecified joint , Post-acute sequelae of COVID-19 (PASC) Take 1 tablet (1.5 mg) per day for 3 days, then 2 tablets (3 mg) per day for 3 days, then 3 tablets (4.5 mg) per day until completing bottle. 90 capsule 12/20/2024 Active ofloxacin 3 mg/ml otic solution (1 source) Quinolone Antimicrobial Start: 4 End: 4 ofloxacin (FLOXIN) 0.3 % otic solution Indications: Acute otitis media, left 10 Drops once daily for 7 days. USE TO THE AFFECTED EAR 10 mL 0 10/04/2023 10/11/2023 Active omeprazole 40 mg delayed release oral capsule (6 sources) Proton Pump Inhibitor Start: 5 take 1 capsule by mouth once daily Start: 11-06-2021 End: 12-11-2021 take 1 capsule by mouth once daily Omeprazole 40 MG Oral Capsule Delayed Release TAKE 1 CAPSULE Daily Quantity: 30 Refills: 1 Ordered: 06-Nov-2021 Piero Ortiz DO Start : 06-Nov-2021 End : 11-Dec-2021 Complete predniSONE 20 mg oral tablet (2 sources) Start: 09-08-2021 End: 09-13-2021 take 2 tablets by mouth once daily predniSONE (DELTASONE) 20 mg tablet Take 2 tablets by mouth once daily for 5 days. 10 tablet 0 09/08/2021 09/13/2021 Active Comment on above: Take 2 tablets by mo [facility] once daily for 5 days. Completed/Discontinued Medications Medication Drug Class(es) Dates Sig (Normalized) Sig (Original) amoxicillin 875 mg / clavulanate 125 mg oral tablet (20 sources) Penicillin-class Antibacterial Start: 06-29-2024 End: 12-29-2024 take 1 tablet by mouth every twelve hours amoxicillin-clavul anate potassium (AUGMENTIN) 875-125 mg per tablet Take 1 tablet by mouth every 12 hours. 06/29/2024 12/29/2024 Discontinued Start: 07-22-2023 End: 07-29-2023 take 1 tablet by mouth twice daily amoxicillin-clavulanate potassium (AUGMENTIN) 875-125 mg per tablet Indications: Acute sinusitis, recurrence not specified, unspecified location Take 1 tablet by mouth two times a day for 7 days. 14 tablet 0 07/22/2023 07/29/2023 Active Start: 05-10-2023 End: 05-15-2023 take 1 tablet by mouth twice daily amoxicillin-clavulanate potassium (AUGMENTIN) 875-125 mg per tablet Take 1 tablet by mouth two times a day for 5 days. 10 tablet 0 05/10/2023 05/15/2023 Active Start: 09-08-2021 End: 09-15-2021 take 1 tablet by mouth twice daily amoxicillin-clavulanic acid (AUGMENTIN) 875-125 mg per tablet Take 1 tablet by mouth twice daily for 7 days. 14 tablet 0 09/08/2021 09/15/2021 Active Comment on above: Take 1 tablet by arpit twice daily for 7 days. Take 1 tablet by arpit two times a day for 5 days. Take 1 tablet by arpit two times a day for 7 days. atorvastatin 20 mg oral tablet (14 sources) HMG-CoA Reductase Inhibitor Start: 05-12-20 End: 10-04-19 24 take 1 tablet by mouth once daily atorvastatin (LIPITOR) 20 mg tablet Indications: Hyperlipidemia, unspecified hyperlipidemia type Take 1 tablet by mouth once daily. 90 tablet 3 05/12/2023 10/04/2023 Discontinued (Other) Comment on above: Take 1 tablet by [facility] once daily. azelastine hydrochloride 0.137 mg/actuat metered dose nasal spray (6 sources) Histamine-1 Receptor Antagonist Start: 08-05-19 End: 10-04-19 take 1 spray(s) nasal route twice daily azelastine 0.1% nasal spray Indications: Nasal congestion Use 1 Bayard in each nostril two times a day. 90 mL 3 08/05/2023 10/04/2023 Discontinued (Other) Comment on above: Use 1 Bayard in each nostril two times a day. azithromycin 250 mg oral tablet (2 sources) Macrolide Antimicrobial Start: 04-19-20 take 2 tablets by mouth once daily, then take 1 tablet by mouth, then take 1 tablet by mouth once daily Azithromycin 250 MG Oral Tablet TAKE 2 TABLETS ON DAY 1 THEN TAKE 1 TABLET A DAY FOR 4 DAYS. Quantity: 1 Refills: 0 Piero Ortiz DO Start : 19-Apr-2020 Active 6 Tablet Pack Start: 06-01-2019 take 2 tablets by [facility] once daily, then take 1 tablet by mouth, then take 1 tablet by mouth once daily Azithromycin 250 MG Oral Tablet TAKE 2 TABLETS ON DAY 1 THEN TAKE 1 TABLET A DAY FOR 4 DAYS. Quantity: 1 Refills: 0 Piero Ortiz DO Start : 01-Jun-2019 Active 6 Tablet Pack bifidobacterium infantis 4 mg oral capsule (17 sources) Start: 01-22-2021 Align Oral Capsule Quantity: 0 Refills: 0 Ordered: 22-Jan-2021 DO Start : 22-Jan-2021 Active cyclobenzaprine hydrochloride 10 mg oral tablet (7 sources) Muscle Relaxant Start: 07-22-2021 End: 12-11-2021 take 1 tablet by mouth three times daily as needed for muscle spasms Cyclobenzaprine HCl - 10 MG Oral Tablet TAKE 1 TABLET 3 TIMES DAILY NEEDED for muscle spasms. Quantity: 30 Refills: 0 Ordered: 22-Jul-2021 Piero Ortiz DO Start : 22-Jul-2021 End : 11-Dec-2021 Complete diclofenac sodium 0.01 mg/mg topical gel (2 sources) Nonsteroidal Anti-inflammatory Drug Start: 08-12-2017 Voltaren 1 % Transdermal Gel APPLY TO UPPER EXTREMITIES, 2 GM OF GEL TO AFFECTED AREA 4 TIMES DAILY. DO NOT APPLY MORE THAN 8 GM DAILY TO ANY ONE AFFECTED JOINT. Quantity: 3 Refills: 0 Gabriela ELCash Start : 07-Oct-2017 Active 100 GM Tube (3 Tubes) ergocalciferol 1.25 mg oral capsule (16 sources) Provitamin D2 Compound Start: 09-27-2024 End: 12-29-2024 take 1 capsule by mouth every week ergocalciferol 50,000 unit capsule (VITAMIN D2, DRISDOL) Take 1 capsule by mouth one time a week. 12 capsule 09/27/2024 12/29/2024 Discontinued Start: 07-02-2015 take 1 capsule by mo [facility] three times weekly Vitamin D (Ergocalciferol) 62540 UNIT Oral Capsule take one capsule 3 times a week for 12 weeks Quantity: 36 Refills: 0 Piero Ortiz DO Joey Start : 02-Jul-2015 Active fluocinonide 0.5 mg/ml topical solution (18 sources) Corticosteroid Start: 09-08-2024 End: 09-08-2025 fluocinonide (LIDEX) 0.05 % external solution Apply to affected areas of hairloss on the scalp BID M-F 60 mL 1 09/08/2024 12/29/2024 Discontinued Lacto No.16-Kgxclq-Cng-Lar ch 25B cell-25B cell-50 mg capsule (7 sources) Start: 08-31-2024 End: 10-05-2024 Lacto No.32-Tsdzke-Bqi-La rch 25B cell-25B cell-50 mg capsule Discontinued NMA PO August 31, 2024 12:00am October 05, 2024 10:47am MEDICATION, NON-DATABASE (12 sources) End: 10-04-2023 take 1 tablet by mouth three times daily MEDICATION, NON-DATABASE Take 1 tablet by mouth three times a day. GYNOVITE 10/04/2023 Discontinued (Other) End: 10-04-2023 take 1 tablet by mouth three times daily MEDICATION, NON-DATABASE Take 1 tablet by mouth three times a day. GYNOVITE 0 10/04/2023 Discontinued (Other) take 1 tablet by arpit three times daily MEDICATION, NON-DATABASE Take 1 tablet by mouth three times a day. GYNOVITE 0 Active Comment on above: Take 1 tablet by arpit th three times a day. GYNOVITE meloxicam 15 mg oral tablet (20 sources) Nonsteroidal Anti-inflammatory Drug Start: 4 End: 4 take 1 tablet by mouth once daily meloxicam (MOBIC) 15 mg tablet Indications: Pain in left hip , DDD (degenerative disc disease), lumbar Take 1 tablet by mouth once daily. 30 tablet 0 09/09/2023 10/04/2023 Discontinued (Other) Start: 11-20-2020 End: 12-17-2022 take 1 tablet by mouth once daily as needed Meloxicam 15 MG Oral Tablet TAKE ONE TABLET BY MOUTH EVERY DAY NEEDED Quantity: 30 Refills: 0 Ordered: 24-Mar-2021 Cash Ochoa PA-C Start : 20-Nov-2020 End : 17-Dec-2022 Complete Comment on above: Take 1 tablet by arpit th once daily. methylPREDNISolone 4 mg oral tablet (18 sources) Corticosteroid Start : 06-29 End: 12-29 methylPREDNISolone (MEDROL DOSE-PACK) 4 mg Dose-Pack take by mouth as directed on inside of package 06/29/2024 12/29/2024 Discontinued minocycline 50 mg oral capsule (12 sources) Tetracycline-class Drug Start : 04-10 take 1 capsule by mouth at bedtime Minocycline HCl - 50 MG Oral Capsule TAKE 1 CAPSULE AT BEDTIME. Quantity: 30 Refills: 1 Ordered: 19-Sep-2020 Piero Ortiz DO Start : 10-Apr-2015 Active 24 hr mirabegron 25 mg extended release oral tablet (7 sources) beta3-Adrenergic Agonist Start : 11-04 Myrbetriq 25 MG Oral Tablet Extended Release 24 Hour Quantity: 90 Refills: 0 Ordered: 19-Nov-2020 DO Start : 04-Nov-2020 Active nitrofurantoin, macrocrystals 25 mg / nitrofurantoin, monohydrate 75 mg oral capsule (7 sources) Nitrofuran Antibacterial Start : 12-12 take 1 capsule by mouth twice daily Nitrofurantoin Monohyd Macro 100 MG Oral Capsule TAKE 1 CAPSULE TWICE DAILY UNTIL GONE. Quantity: 4 Refills: 0 Ordered: 17-Dec-2020 Maddie Gaming MD Start : 12-Dec-2020 Active ONLY 4 PILLS NEEDED FOR THIS ONE TIME REFILL. pantoprazole 40 mg delayed release oral tablet (9 sources) Proton Pump Inhibitor Start : 08-20 End: 05-[address] (PROTONIX) 40 mg tablet Take by mouth. 0 08/20/2016 05/06/2023 Discontinued Comment on above: Take by mouth. prednisoLONE acetate 10 mg/ml ophthalmic suspension (7 sources) Corticosteroid Start : 08-31 End: 12-26 Prednisolone Acetate 1 % drops,suspension Discontinued 1 NMA OPHTHALMIC 4 TIMES DAILY August 31, 2024 12:00am December 26, 2024 9:12am solifenacin succinate 5 mg oral tablet (12 sources) Cholinergic Muscarinic Antagonist Start : 01-22 End: 12-11 take 1 tablet by mouth once daily Solifenacin Succinate 5 MG Oral Tablet Take 1 tablet daily Quantity: 90 Refills: 0 Ordered: 30-Jul-2021 Sampson Tameka SANDS Start : 22-Jan-2021 End : 11-Dec-2021 Complete tacrolimus 0.001 mg/mg topical ointment (20 sources) Calcineurin Inhibitor Immunosuppressant Start : 06-21 End: 06-21 tacrolimus (PROTOPIC) 0.1 % ointment Apply to affected area two times a day. 30 g 2 06/21/2023 10/04/2023 Discontinued (Other) Start: 04-24-2020 Tacrolimus 0.1 % External Ointment APPLY SPARINGLY AND MASSAGE IN TWICE DAILY. Quantity: 1 Refills: 0 Ordered: 19-Sep-2020 Piero Ortiz DO Start : 24-Apr-2020 Active Start: 04-24-2020 Tacrolimus 0.1 % External Ointment APPLY SPARINGLY AND MASSAGE IN TWICE DAILY. Quantity: 1 Refills: 0 Piero Ortiz DO Start : 24-Apr-2020 Active 30 GM Tube Comment on above: Apply to affected ar ea two times a day. triamcinolone acetonide 0.001 mg/mg oral paste (6 sources) Corticosteroid Start: 08-05-2023 End: 10-04-2023 triamcinolone (KENALOG IN ORABASE) 0.1 % paste Indications: Glossitis 1 Application by DENTAL route two times a day. 5 g 2 08/05/2023 10/04/2023 Discontinued (Other) Comment on above: 1 Application by DEN CARMELITA route two times a day. Problems Active Problems Problem Classification Problem Date Documented Da te Episodic/Chronic Abdominal pain (20 sources) Abdominal tenderness; Translations: [Epigastric pain] Onset: 5 Resolved: 4 11-30-2024 Episodic Comment on above: Added by Problem Debbie nelson Migration; 2012-11-30; Moved to Suppressed Apr 24 2013 9:21PM; Acute bronchitis (20 sources) Acute bronchitis; Translations: [Acute bronchitis] Episodic Adjustment disorders (20 sources) Grief finding; Translations: [Adjustment disorder with depressed mood] Chronic Diseases of mouth; excluding dental (4 sources) Glossitis; Translations: [Glossitis] Onset: 5 08-05-2023 Episodic Disorders of lipid metabolism (20 sources) Hyperlipidemia; Translations: [Other and unspecified hyperlipidemia] Onset: 4 05-12-2023 Chronic Esophageal disorders (20 sources) Gastroesophageal reflux disease; Translations: [Esophageal reflux] Onset: 4 07-13-2023 Chronic Esophageal disorders (1 source) Esophageal disorders; Translations: [Gastroesophageal reflux disease with esophagitis, unspecified whether hemorrhage] Onset: Genitourinary symptoms and ill-defined conditions (20 sources) Urge incontinence of urine; Translations: [Urge incontinence] Onset: 4 07-13-2023 Chronic Genitourinary symptoms and ill-defined conditions (20 sources) Urinary symptoms ; Translations: [Increased frequency of urination] 11-13-2023 Episodic Headache; including migraine (20 sources) Headache; Translations: [Headache] Episodic Immunizations and screening for infectious disease (20 sources) Patient encounter status; Translations: [Other specified vaccination] 05-06-2023 Episodic Inflammatory diseases of female pelvic organs (2 sources) Acute vaginitis; Translations: [Acute vaginitis] 03-13-2025 Episodic Intestinal infection (20 sources) Food poisoning; Translations: [Viral gastroenteritis] Episodic Malaise and fatigue (2 sources) Fatigue; Translations: [Chronic fatigue, unspecified] 05-06-2023 Chronic Menopausal disorders (20 sources) Menopausal symptom; Translations: [Symptomatic menopausal or female climacteric states] Onset: 4 07-13-2023 Chronic Miscellaneous mental health disorders (3 sources) Psychophysiologic insomnia; Translations: [Psychophysiologic insomnia] Onset: 4 12-28-2024 Chronic Nutritional deficiencies (20 sources) Vitamin D deficiency; Translations: [Unspecified vitamin D deficiency] Onset: 4 05-06-2023 Chronic Comment on above: Added by Problem Lis omar Migration; 2012-11-30; Moved to [facility] Apr 24 2013 9:21PM; Open wounds of extremities (1 source) Laceration without foreign body of right thumb without damage to nail, initial encounter; Translations: [Laceration of right thumb without foreign body without damage to nail, initial encounter] Onset: Episodic Other bone disease and musculoskeletal deformities (1 source) Disorder of bone; Translations: [Disorder of bone, unspecified] 11-30-2024 Episodic Other connective tissue disease (20 sources) Other specified soft tissue disorders; Translations: [Swollen thumb] Episodic Other connective tissue disease (20 sources) Hand pain; Translations: [Pain in limb] Episodic Other connective tissue disease (20 sources) Other shoulder lesions, right shoulder; Translations: [Tendinitis of right rotator cuff] Episodic Other connective tissue disease (20 sources) Bursitis of shoulder; Translations: [Disorders of bursae and tendons in shoulder region, unspecified] Episodic Other connective tissue disease (2 sources) Pain in thumb ; Translations: [Chronic pain of right thumb] Episodic Other connective tissue disease (20 sources) Chronic pain of right upper limb; Translations: [Pain in limb] Episodic Other connective tissue disease (2 sources) Muscle pain; Translations: [Myalgia, unspecified site] 11-30-2024 Episodic Other diseases of bladder and urethra (2 sources) Overactive bladder; Translations: [Overactive bladder] 03-13-2025 Chronic Other ear and sense organ disorders (7 sources) Hearing loss of right ear; Translations: [Hearing loss of right ear due to cerumen impaction] Chronic Other ear and sense organ disorders (20 sources) Otitis externa; Translations: [Infective otitis externa, unspecified] Chronic Other ear and sense organ disorders (20 sources) Hearing loss; Translations: [Unspecified hearing loss, unspecified ear] Onset: 4 07-13-2023 Chronic Other ear and sense organ disorders (6 sources) Otitis externa; Translations: [Otitis externa, left] Episodic Other ear and sense organ disorders (20 sources) Hearing loss of right ear; Translations: [Other specified forms of hearing loss] Episodic Other gastrointestinal disorders (20 sources) Irritable bowel syndrome characterized by constipation; Translations: [Irritable bowel syndrome] Onset: 07-13-2023 Chronic Other gastrointestinal disorders (20 sources) Constipation; Translations: [Constipation, unspecified] Episodic Comment on above: Added by Problem Lis t Migration; 2012-11-30; Moved to Suppressed Apr 24 2013 9:21PM; Other gastrointestinal disorders (20 sources) Diarrhea; Translations: [Diarrhea] Episodic Other gastrointestinal disorders (11 sources) Heartburn; Translations: [Heartburn] 10-05-2024 Episodic Other gastrointestinal disorders (13 sources) Disorder of gastrointestinal tract; Translations: [Other specified diseases of the digestive system] 10-05-2024 Episodic Other gastrointestinal disorders (1 source) Altered bowel function; Translations: [Change in bowel habit] 01-16-2025 Episodic Other gastrointestinal disorders (1 source) Change in bowel habit; Translations: [Change in bowel habits] Onset: Episodic Other gastrointestinal disorders (1 source) Other specified diseases of the digestive system; Translations: [Other specified diseases of the digestive system] Onset: 5 Episodic Other hematologic conditions (1 source) Erythrocytosis; Translations: [Secondary polycythemia] 12-01-2024 Episodic Other infections; including parasitic (2 sources) Post-viral disorder; Translations: [Post covid-19 condition, unspecified] 11-30-2024 Chronic Other infections; including parasitic (2 sources) Late effects of other and unspecified infectious and parasitic diseases; Translations: [Post-acute sequelae of COVID-19 (PASC)] 12-28-2024 Chronic Other lower respiratory disease (20 sources) H/O: respiratory disease; Translations: [Personal history of other diseases of respiratory system] Episodic Other lower respiratory disease (13 sources) Dyspnea; Translations: [Shortness of breath] 11-30-2024 Episodic Other lower respiratory disease (2 sources) Shortness of breath; Translations: [Shortness of breath] Onset: 5 Episodic Other nervous system disorders (6 sources) Impaired cognition; Translations: [Other symptoms and signs involving cognitive functions and awareness] 11-30-2024 Episodic Other non-traumatic joint disorders (20 sources) Shoulder pain; Translations: [Pain in joint, shoulder region] Episodic Other non-traumatic joint disorders (11 sources) Pain in left shoulder; Translations: [Left shoulder pain] Onset: 5 08-31-2024 Episodic Other non-traumatic joint disorders (4 sources) Pain in right shoulder; Translations: [Right shoulder pain] Onset: 5 Episodic Other non-traumatic joint disorders (4 sources) Joint pain; Translations: [Pain in unspecified joint] 05-06-2023 Episodic Other nutritional; endocrine; and metabolic disorders (1 source) Hypercalcemia; Translations: [Hypercalcemia] 12-01-2024 Chronic Other nutritional; endocrine; and metabolic disorders (1 source) Hypercalcemia; Translations: [Hypercalcemia] Onset: Chronic Other conditions (1 source) Primary sleep apnea of ; Translations: [Primary obstructive sleep apnea of ] 12-28-2024 Episodic Other screening for suspected conditions (not mental disorders or infectious disease) (20 sources) Viral screening status; Translations: [Special screening examination for unspecified viral disease] Onset: 3 Episodic Other skin disorders (7 sources) Swollen thumb; Translations: [Swelling of right thumb] Episodic Other skin disorders (2 sources) Alopecia areata; Translations: [Alopecia areata, unspecified] 09-08-2024 Episodic Other upper respiratory disease (20 sources) Allergic rhinitis; Translations: [Allergic rhinitis, cause unspecified] Onset: 4 07-13-2023 Chronic Other upper respiratory disease (1 source) Chronic rhinitis; Translations: [Unspecified sinusitis (chronic)] Chronic Other upper respiratory disease (1 source) Nasal congestion; Translations: [Nasal congestion] 08-05-2023 Episodic Other upper respiratory infections (3 sources) Chronic sinusitis, unspecified; Translations: [Unspecified sinusitis (chronic)] Onset: 5 05-10-2023 Chronic Other upper respiratory infections (20 sources) Acute sinusitis; Translations: [Acute laryngitis] Episodic Comment on above: Added by Estela Wade; 2012-11-30; Moved to [facility] Apr 24 2013 9:21PM; Otitis media and related conditions (20 sources) Perforation of tympanic membrane; Translations: [Perforation of tympanic membrane, unspecified] Onset: 5 11-10-2004 Episodic Residual codes; unclassified (2 sources) Postmenopausal state; Translations: [Asymptomatic menopausal state] 05-06-2023 Episodic Residual codes; unclassified (3 sources) Impaired exercise tolerance; Translations: [Other general symptoms and signs] 11-30-2024 Episodic Residual codes; unclassified (1 source) H/O: urinary anomaly; Translations: [Personal history of other specified conditions] 03-13-2025 Episodic Residual codes; unclassified (1 source) Other general symptoms and signs; Translations: [Exercise intolerance] Onset: 5 Episodic Residual codes; unclassified (1 source) Personal history of other specified conditions; Translations: [Personal history of other specified conditions] Onset: Episodic Spondylosis; intervertebral disc disorders; other back problems (20 sources) Degeneration of lumbar intervertebral disc; Translations: [Other intervertebral disc degeneration, lumbar region] Onset: 4 09-09-2023 Chronic Spondylosis; intervertebral disc disorders; other back problems (20 sources) Neck pain; Translations: [Cervicalgia] Episodic Sprains and strains (20 sources) Strain of back muscle; Translations: [Sprain of thoracic] Episodic Superficial injury; contusion (20 sources) Infected insect bite of head and neck; Translations: [Injury of conjunctiva and corneal abrasion without foreign body, right eye, initial encounter] Episodic Thyroid disorders (20 sources) Non-toxic multinodular goiter; Translations: [Nontoxic multinodular goiter] Onset: 4 05-06-2023 Chronic Unclassified (2 sources) B/L RC TENDONITIS Onset: 8 Unclassified (1 source) Post-acute sequelae of COVID-19 (PASC); Translations: [Post-acute sequelae of COVID-19 (PASC)] Onset: 5 Unclassified (1 source) Post covid-19 condition, unspecified; Translations: [Post covid-19 condition, unspecified] Onset: 5 Unclassified (1 source) Primary obstructive sleep apnea of ; Translations: [Primary obstructive sleep apnea of ] Onset: 5 Unclassified (1 source) Wellness Onset: 5 Unclassified (1 source) Post COVID-19 condition, unspecified; Translations: [Post COVID-19 condition, unspecified] Onset: 5 Urinary tract infections (20 sources) Urinary tract infectious disease; Translations: [Urinary tract infection, site not specified] Onset: 4 07-13-2023 Episodic Viral infection (5 sources) COVID-19; Translations: [Other specified viral infection] Episodic Past or Other Problems Problem Classification Problem Date Documented Da te Episodic/Chronic Conditions associated with dizziness or vertigo (20 sources) Benign paroxysmal positional vertigo; Translations: [Dizziness] Onset: 4 07-13-2023 Episodic Malaise and fatigue (20 sources) Fatigue; Translations: [Other malaise and fatigue] Onset: 5 11-30-2024 Episodic Nutritional deficiencies (20 sources) Cobalamin deficiency; Translations: [Other B-complex deficiencies] Onset: 4 07-13-2023 Episodic Other bone disease and musculoskeletal deformities (1 source) Disorder of bone, unspecified; Translations: [Disorder of bone, unspecified] Onset: 5 Episodic Other connective tissue disease (20 sources) Impingement syndrome of shoulder region; Translations: [Other affections of shoulder region, not elsewhere classified] Onset: 4 07-13-2023 Episodic Other connective tissue disease (20 sources) Other shoulder lesions, left shoulder; Translations: [Tendinitis of left rotator cuff] Onset: 4 07-13-2023 Episodic Other connective tissue disease (20 sources) Trochanteric bursitis; Translations: [Enthesopathy of hip region] Onset: 4 07-13-2023 Episodic Other connective tissue disease (20 sources) Plantar fasciitis; Translations: [Plantar fascial fibromatosis] Onset: 4 09-13-2013 Episodic Other connective tissue disease (20 sources) Pain in limb; Translations: [Pain in unspecified limb] Onset: 4 09-13-2013 Episodic Other connective tissue disease (1 source) Myalgia, unspecified site; Translations: [Myalgia] Onset: 5 Episodic Other connective tissue disease (7 sources) Tendinitis of right rotator cuff; Translations: [Rotator cuff tendonitis, right] Other connective tissue disease (7 sources) Tendinitis of left rotator cuff; Translations: [Rotator cuff tendonitis, left] Other ear and sense organ disorders (20 sources) Impacted cerumen; Translations: [Impacted cerumen, unspecified ear] Onset: 7 Resolved: 4 12-06-2006 Episodic Other ear and sense organ disorders (2 sources) Otalgia; Translations: [Otalgia, unspecified ear] Onset: 7 12-06-2006 Episodic Other ear and sense organ disorders (20 sources) Pain of ear structure; Translations: [Otalgia, unspecified ear] Onset: 7 12-06-2006 Episodic Other female genital disorders (20 sources) 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; Translations: [Other specified symptoms associated with female genital organs] Onset: 4 07-13-2023 Episodic Other gastrointestinal disorders (20 sources) Dysphagia; Translations: [Dysphagia, unspecified] Onset: 4 07-13-2023 Episodic Other hematologic conditions (1 source) Secondary polycythemia; Translations: [Polycythemia] Onset: 5 Episodic Other inflammatory condition of skin (20 sources) Seborrheic dermatitis; Translations: [Seborrheic dermatitis, unspecified] Onset: 4 07-13-2023 Episodic Other lower respiratory disease (1 source) Dyspnea, unspecified; Translations: [Dyspnea and respiratory abnormalities] Onset: 5 Episodic Other lower respiratory disease (1 source) Other abnormalities of breathing; Translations: [Dyspnea and respiratory abnormalities] Onset: 5 Episodic Other nervous system disorders (1 source) Other symptoms and signs involving cognitive functions and awareness; Translations: [Brain fog] Onset: 5 Episodic Other non-traumatic joint disorders (20 sources) Hip pain; Translations: [Pain in joint, pelvic region and thigh] Onset: 4 08-20-2023 Episodic Other non-traumatic joint disorders (2 sources) Pain in unspecified knee; Translations: [Pain in joint, lower leg] Onset: 5 11-30-2024 Episodic Other non-traumatic joint disorders (1 source) Pain in unspecified joint; Translations: [Arthralgia, unspecified joint] Onset: 5 Episodic Other skin disorders (1 source) Alopecia areata, unspecified; Translations: [Alopecia areata] Onset: 5 Episodic Residual codes; unclassified (20 sources) Insomnia; Translations: [Insomnia, unspecified] Onset: 4 07-13-2023 Episodic Residual codes; unclassified (20 sources) Family history of malignant neoplasm of gastrointestinal tract; Translations: [Family history of malignant neoplasm of digestive organs] Onset: 3 07-13-2023 Episodic Residual codes; unclassified (1 source) Asymptomatic menopausal state; Translations: [Post-menopausal] Onset: 4 Episodic Residual codes; unclassified (1 source) Insomnia, unspecified; Translations: [Insomnia, unspecified type] Onset: 4 Episodic Residual codes; unclassified (1 source) Chills (without fever); Translations: [Chills (without fever)] Onset: 5 Episodic Unclassified (20 sources) Patient encounter status; Translations: [Screening for lipid disorders] Unclassified (3 sources) Screening status; Translations: [Screening for endocrine, nutritional, metabolic and immunity disorder] Unclassified (7 sources) Abrasion of cornea of right eye; Translations: [Corneal abrasion, right] Unclassified (1 source) Chronic pain of right upper limb; Translations: [Chronic pain of right thumb] NEGATED: Highlighted row has not occurred!Residual codes; unclassified (20 sources) Disease Episodic Results Test Name Value Interpretation Reference Range Facility Orthopedic Visit Reporton Orthopedic Visit Report [facility] [address] [place] [address] [id number] OFFICE VISIT Date of Service: 04/10/25 MR#: [id number] Acct: [id number] Name: TIFFANIE RAMSEY Rep #: [id number] : 1960 Provider: Dr. Shan rich MD Age/Sex: 64/F Location: [email or web address] Status: Signed with Addenda ADDENDUM by THANIA Butcher on 04/10/25 at 1149 Office Procedure Documentation entered by Dorie Butcher MA 04/10/25 11:49: Ortho Injections Injections Yes Subacromial Injection Bilateral Is this a patient provided medication?: No Details: Obtained consent for injection. Under sterile conditions, injected the patients bilateral shoulder with 1cc (80/2ml) + 5cc (0.25%) x2. The patient tolerated the injection well without any noted complication. Patient should call our office if redness develops, pain worsens or if they have any concerns. Office Meds Kenalog 40 mg/mL suspension for injection Performing Provider: Shan Bolaños MD Performing Location: [facility] Administered by: Shan Bolaños MD on 04/10/25 11:47 Dose Route Admin Location Dispensed Lot Number Expiration Date Package NDC NDC Tangible Personal Property Appraiser 40 mg intra-articular bilateral shoulder 1 mL [id number] 05/31/26 55777-068-39 [id number] [facility] Date cc: * Signed Intake Vital Signs 04/05/25 07:30 Height 5 ft 2 in Intake Visit Reasons: bl shoulder Chief Complaint: Bilateral Shoulder Pain Accompanied by: Self Is patient in pain?: Yes Allergies doxycycline Allergy (Verified 04/10/25 11:00) gi upset Sulfa (Sulfonamide Antibiotics) (sulfa drugs) Allergy (Verified 04/10/25 11:00) Overheats and gets very tired ciprofloxacin (From Cipro) Adverse Reaction (Mild, Verified 04/10/25 11:00) Other Medications ???Medication ???Instructions ???Recorded ???Confirmed ???Type fluticasone propionate 50 1 spray intranasal QDAY 08/31/24 1 06/10/24 History mcg/actuation nasal spray,suspension (Flonase Allergy Relief) estradiol 0.01% (0.1 mg/gram) See Rx Instructions vaginal 04/10/25 Rx vaginal cream .COMPLEX #42.5 grams Have you fallen in the past year?: No PFSH Medical History Bilateral shoulder pain Right shoulder pain H/O urinary frequency Arthritis High cholesterol Injury of back History of IBS Heartburn Non-smoker Shortness of breath on exertion History of echocardiogram Long COVID Left shoulder pain Surgical History History of esophagogastroduodenoscopy (EGD) History of colonoscopy History of wisdom tooth extraction History of bilateral cataract extraction History of ear surgery Family History Father Cancer Stomach Mother Cancer Melanoma Social History household members: spouse Smoking Status: Never smoker alcohol intake: former substance use type: does not use seatbelt use: always do you feel safe at home: Yes additional social history: - Jorge HPI bl shoulder Details: This documentation accurately reflects the service provided and the decisions made by me, Dr. Shan Bolaños MD 04/10/25 [id number]. Part of today???s visit was documented by [ ], acting as scribe. TIFFANIE RAMSEY is a 64 year old F here today for bilateral shoulder pain previously saw me for left shoulder cortisone injection 6 months ago. only had L shoulder XR prior. Last injection was effective. The pain has now returned both shoulders 1 month history no injury patient does do a lot of at home activities and maintenance duties. The pain is lateral and anteriorly radiating down the arm worse in the mornings are worse with lifting or repetitive activities. Did also have cortisone injections about 7 years ago. Supplemental Info [facility] Imaging Services [address] [place] [address] Shoulder min 2 Views MR#: [id number] Acct: [id number] Name: TIFFANIE RAMSEY Rep #: [id number] : 1960 F 64 From: Km Hoover MD PCP: Dr. Bello Davenport MD Status: DEP AMB Study: Shoulder min 2 Views Date of Exam: 08/31/24 Exam# [id number] Ordering Dr: Shan Bolaños MD PROCEDURE: SHOULDER MIN 2 VIEWS 08/31/2024 REASON FOR EXAM: PAIN, NO INJURY TECHNIQUE: Four views left shoulder COMPARISON: None available FINDINGS: No fracture or dislocation. The joint spaces appear within limits. Visualized left lung appears cl (more content not included)... Normal [facility] ID - Individual Treatment Pl anon 04-05-2025 ID - Individual Treatment Plan [facility] Pulmonary Rehab Reports [address] [place] [address] ID - Individual Treatment Plan MR#: [id number] Acct: [id number] Name: TIFFANIE RAMSEY Rep #: [id number] : 1960 64 From: Renzo Marquez BS, RVT PCP: Dr. Bello Davenport MD Exercise - Initial Assessment Visit Session Number:: 23 Physician Prescribed Exercise Modalities: Treadmill, Schwinn Airdyne AD-7 and SciFit Stepper Current METSs:: 4 Target HR:: 123 (92-123) Current RPD:: 2-3 Maximum Exercise HR:: 141 Resting Blood Pressure: 134/90 Maximum Exercise Blood Pressure: 140/80 Minimum SpO2 with exercise: 98 (room air) EKG Type: NSR to ST w/RBBB and rare ectopy. Nutrition/Wt Mgmt - Initial Visit Session Number:: 23 (Nutrition score of 1.) Weight Management Admit Height:: 5 ft 2 in Admit Weight:: 137 lb 8 oz Admit BMI:: 25.1 Nutrition/Wt Mgmt - 30-Day Visit Date of Eval: 04/05/25 Session Number:: 23 (Nutrition score of 1.) Weight Management Height: 5 ft 2 in Weight:: 137 lb 8 oz BMI: 25.1 Nutrition/Wt Mgmt - 60-Day Visit Session Number:: 23 (Nutrition score of 1.) Weight Management Height: 5 ft 2 in Weight:: 137 lb 8 oz BMI: 25.1 Weight Goals Progress:: Goal met (Pt is at a healthy weight. Pt is scheduled to attend nutrition classes with our senior communications engineer. Heart healthy low sodium diet encouraged. ) Nutrition/Wt Mgmt - 90-Day Visit Date of Eval: 04/05/25 Session Number:: 23 (Nutrition score of 1.) Weight Management Height: 5 ft 2 in Weight:: 137 lb 8 oz BMI: 25.1 Weight Goals Progress:: Goal met (Pt is at a healthy weight. Pt is scheduled to attend nutrition classes with our senior communications engineer. Heart healthy low sodium diet encouraged. ) Nutrition/Wt Mgmt - Final Visit Session Number:: 23 (Nutrition score of 1.) Weight Management Height: 5 ft 2 in Weight:: 137 lb 8 oz BMI: 25.1 Psychosocial - Initial Assess Visit Session Number:: 23 (Nutrition score of 1.) Problems/Goals History of Emotional Disorders: Anxious (Anxious due to illness. Pt does not have an official diagnosis of anxiety.) Psychosocial Goals: 1. Patient is free from overwhelming symtoms of depression (or anxiety, 2. Identifies personal stressors states the strategies for managing, 3. Identifies activities to decrease isolation and/or symptoms of, 4. Improved psychosocial coping skills., 5. Verbalizes coping strategies., 6. Adequate treatment of depression. and 7. Improved Q.O.L. Self-reported stressors: Recent Illness Psychosocial Test Tool Used:: Pulmonary QOL and PHQ-9 Questionnaire PHQ-9 Score: 3 Referred to MD for counseling:: No Referral to Behavioral Health PS - Interventions: Yes: Attend Stress Management Classes Intervention/Plan: See List Interventions/Plan:: Assess stressors,coping strategies signs of derpression on admission, Instruct/assist pt to develop coping personal stress Mgt strategies, Refer to Behavioral Health if appropriate, Refer to Physician if appropriate, Instruct patient to recognize signs symptoms of depression and Instruct patient to recog Comments:: Pt will attend stress management class. Will continue to monitor and report to pt's physician if necessary. Psychosocial - 30-Day Visit Date of Eval: 04/05/25 Session Number:: 23 (Nutrition score of 1.) Problems/Goals History of Emotional Disorders: Anxious (Anxious due to illness. Pt does not have an official diagnosis of anxiety.) Psychosocial Goals: 1. Patient is free from overwhelming symtoms of depression (or anxiety, 2. Identifies personal stressors states the strategies for managing, 3. Identifies activities to decrease isolation and/or symptoms of, 4. Improved psychosocial coping skills., 5. Verbalizes coping strategies., 6. Adequate treatment of depression. and 7. Improved Q.O.L. Self-reported stressors: Recent Illness Psychosocial Test Tool Used:: Pulmonary QOL and PHQ-9 Questionnaire PHQ-9 Score: 3 Referred to MD for counseling:: No Referral to Behavioral Health PS - Interventions: Yes: Attend Stress Management Classes Plan Interventions/Plan:: Assess stressors,coping strategies signs of derpression on admission, Instruct/assist pt to develop coping personal stress Mgt strategies, Refer to Behavioral Health if appropriate, Refer to Physician if appropriate, Instruct patient to recognize signs symptoms of depression and Instruct patient to recog Comments:: Pt will attend stress management class. Will continue to monitor and report to pt's physician if necessary. Psychosocial - 60-Day Visit Session Number:: 23 (Nutrition score of 1.) Problems/Goals History of Emotional Disorders: Anxious (Anxious due to illness. Pt does not have an official diagnosis of anxiety.) Psychosocial Goals: 1. Patient is free from overwhelming symtoms of depression (or anxiety, 2. Identifies personal stressors states the strategies for managing, (more content not included)... Normal [facility] 1,25-dihydroxyvitamin D3 [Ma ss/Vol]on 04-03-2025 VIT D1,25 DIHYDROXY 61.7 pg/mL Normal 19.9-79.3 [facility] Comment on above: Order Comment: Speci men Type: BLOOD SPECIMENOrdering Facility: [facility] Address: [address] [place] [address] Performed By: #### 1 643, 1988-07 ####[facility] LABCLIA [id number] [place] [address] [place] 25(OH)D3 SerPl-mCncon 2024 25-hydroxyvitamin D3 [Mass/Vol] 27.2 ng/mL Low 31.0-80.0 [facility] Comment on above: Order Comment: Speci men Type: BLOOD SPECIMENOrdering Facility: [facility] Address: [address] [place] [address] Performed By: #### 1 643, 1988-07 ####[facility] LABCLIA [id number] [place] [address] [place] Calcium SerPl-mCncon 025 Calcium [Mass/Vol] 10.2 mg/dL Normal 8.5-10.2 [facility] Comment on above: Order Comment: Speci men Type: BLOOD SPECIMENOrdering Facility: [facility] Address: [address] [place] [address] Performed By: #### 2 777-1, 2731-8, 58268-5 ####[facility] LABIA [id number] [place] [address] [place] Calcium.ionized [Moles/Vol]o n 04-03-2025 Calcium.ionized (Bld) [Mass/Vol] 1.35 mmol/L High 1.08-1.30 [facility] Comment on above: Order Comment: Speci men Type: BLOOD SPECIMENOrdering Facility: [facility] Address: [address] [place] [address] Performed By: #### 1 995-0 ####[facility] [id number] [place] [address] [place] Calcium.ionized adjusted to pH 7.4 (Bld) [Moles/Vol] 1.32 mmol/L High 1.08-1.30 [facility] Comment on above: Order Comment: Speci men Type: BLOOD SPECIMENOrdering Facility: [facility] Address: [address] [place] [address] Performed By: #### 1 995-0 ####[facility] [id number] [place] [id number] [place] PTH-Intact SerPl-mCncon 11-0 Parathyrin.intact [Mass/Vol] 38 pg/mL Normal 15-65 [facility] Comment on above: Order Comment: Speci men Type: BLOOD SPECIMENOrdering Facility: [facility] Address: [address] [place] [address] Performed By: #### 2 777-1, 2731-8, 30251-1 ####[facility] LABIA [id number] [place] [address] [place] Phosphate SerPl-mCncon 04-03 Phosphate [Mass/Vol] 3.8 mg/dL Normal 2.7-4.8 [facility] Comment on above: Order Comment: Speci men Type: BLOOD SPECIMENOrdering Facility: [facility] Address: [address] [place] [address] Performed By: #### 2 777-1, 2731-8, 72417-8 ####[facility] LABCLIA [id number] [address] OF [facility] CNOVon 03-29-2025 CNOV Office Visit (FAMPWS ) -- TIFFANIE RAMSEY ([id number]) 1960 F Date Time Provider Department 03/29/25 1:40 PM PODLOGAR, GLENDY POP During your visit today, we recorded the following information about you: PINA SZYMANSKI 03/29/2025 2:28 PM Signed Patient was offered sooner appt but not with physician she had planned to establish care with. Would like to have appt with that Dr scheduled again. Patient taken to schedulers to assist with appt. Pina Szymanski LPN Allergies As of Date: 03/29/2025 Noted Allergy Reaction CIPROFLOXACIN 01/16/2025 14 - Other: See Comments Comments: Abdominal cramping DOXYCYCLINE 06/07/2024 14 - Other: See Comments Comments: Abdominal cramping ABBY (FEXOFENADINE HCL) 06/24/2005 5 - Intolerance Comments: Hyperactivity CLARITIN (LORATADINE) 06/24/2005 5 - Intolerance Comments: Hyperactivity LIPITOR (ATORVASTATIN) 07/22/2023 8 - GI Upset SULFA (SULFONAMIDE ANTIBIOTICS) 09/12/2004 2 - Rash ZYRTEC (CETIRIZINE HCL) 06/24/2005 5 - Intolerance Comments: Drowsiness Date Reviewed: 03/13/2025 Reviewed by: Qing Brown LPN - Fully Assessed Reason for Visit: Appointment Cancelled [1023] Primary Visit Diagnosis:APPOINTMENT CANCELLED Prescriptions as of 03/29/2025 - estradiol (ESTRACE) 0.01 % (0.1 mg/gram) vaginal cream USE A SMALL AMOUNT OF CREAM VAGINALLY DIRECTED EVERY OTHER DAY FOR 4 WEEKS, THEN USE TIWCE WEEKLY THEREAFTER. - albuterol HFA (PROVENTIL HFA, VENTOLIN HFA) 90 mcg/actuation inhaler Inhale 2 puffs as instructed every 6 hours as needed for wheezing/shortness of breath. - fluticasone (FLONASE) 50 mcg/actuation nasal spray Use 2 Sprays in each nostril once daily. Problem List As Of Date 03/29/2025 Noted Resolved CENT PERF TYMPANIC MEMB [H72.00] 11/10/2004 Impacted cerumen [H61.20] 12/06/2006 07/13/2023 OTALGIA NOS [H92.09] 12/06/2006 Plantar fasciitis [M72.2] 09/13/2013 Pain in limb [M79.609] 09/13/2013 Vitamin D deficiency [E55.9] 07/13/2023 Diagnosed: 07/13/2023 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 [N89.8] 07/13/2023 Diagnosed: 07/13/2023 Urinary tract infection [N39.0] 07/13/2023 Diagnosed: 07/13/2023 Urge incontinence of urine [N39.41] 07/13/2023 Diagnosed: 07/13/2023 Tendinitis of left rotator cuff [M75.82] 07/13/2023 Diagnosed: 07/13/2023 Menopausal symptom [N95.1] 07/13/2023 Diagnosed: 07/13/2023 Seborrheic dermatitis [L21.9] 07/13/2023 Diagnosed: 07/13/2023 Non-toxic multinodular goiter [E04.2] 07/13/2023 Diagnosed: 07/13/2023 Insomnia [G47.00] 07/13/2023 Diagnosed: 07/13/2023 Impingement syndrome of shoulder region [M75.40]07/13/2023 Diagnosed: 07/13/2023 Hyperlipidemia [E78.5] 07/13/2023 Diagnosed: 07/13/2023 Greater trochanteric bursitis [M70.60] 07/13/2023 Diagnosed: 07/13/2023 Gastroesophageal reflux disease [K21.9] 07/13/2023 Diagnosed: 07/13/2023 Family history of malignant neoplasm of gastroi*07/26/2012 Diagnosed: 07/13/2023 Dysphagia [R13.10] 07/13/2023 Diagnosed: 07/13/2023 Irritable bowel syndrome with constipation [K58*07/13/2023 Diagnosed: 07/13/2023 Cobalamin deficiency [E53.8] 07/13/2023 Diagnosed: 07/13/2023 Benign paroxysmal positional vertigo [H81.10] 07/13/2023 Diagnosed: 07/13/2023 Allergic rhinitis [J30.9] 07/13/2023 Diagnosed: 07/13/2023 Hearing loss [H91.90] 07/13/2023 Diagnosed: 07/13/2023 Pain in left hip [M25.552] 10/01/2023 DDD (degenerative disc disease), lumbar [M51.36*10/01/2023 Encounter Status:Closed by PINA SZYMANSKI on 03/29/25 [facility] CNOVon 03-13-2025 CNOV Office Visit (WOUCA) -- TIFFANIE RAMSEY ([id number]) 1960 F Date Time Provider Department 03/13/25 12:30 PM ADARSH CAMACHO During your visit today, we recorded the following information about you: Temperature Pulse Respiration Blood pressure 98.1 degrees 76/minute 20/minute 130/89 Weight 62 kg Adarsh Camacho APRN.[employer] 03/13/2025 1:00 PM Signed [facility] Tiffanie Ramsey is a 64 year old female. Patient presents with: Ear Pain: L ear pain, x 2 days, on outside of ear painful to touch, nasal congestion, Ear Pain The patient is a 64-year-old female with a history of chronic sinus infections, presenting with right ear pain and pressure. Right Ear Pain and Pressure: - Onset 2 days ago; significant pain and tenderness noted this morning. - Denies associated fever, cough, or congestion. - Uses Flonase daily. - History of tympanic membrane perforation in the right ear. - Denies recent antibiotic use. Chronic Sinus Infections: - Managed by Dr. Elizabeth; last seen in the spring. - Previously treated with antibiotics and steroids. - Uses a nebulizer for symptom relief. - Denies current sinus pain or pressure. - Aggravated by cold drafts or water in the ear. COVID-19: - Currently recovering from COVID-19. - Experiencing persistent cough and altered taste sensation. Review of Systems Constitutional: (+) fatigue, (-) fever Ears/Nose/Mouth/Throat: (+) ear pain, (+) green nasal discharge, (-) nasal congestion, (-) sinus pain Respiratory: (+) cough PAST MEDICAL HISTORY Diagnosis Date Chronic sinusitis COVID 02/2022 Recurrent otitis media PAST SURGICAL HISTORY Procedure Laterality Date COLOGUA2024 Negative COLONOSCOPY 01/27/2021 EAR SURGERY HX Right EGD W/O BRSH SPEC VARICIES INJ 10-12 years ago ALLERGIES Ciprofloxacin, Doxycycline, Abby [Fexofenadine Hcl], Claritin [Loratadine], Lipitor [Atorvastatin], Sulfa (Sulfonamide Antibiotics), and Zyrtec [Cetirizine Hcl] MEDICATIONS estradiol (ESTRACE) 0.01 % (0.1 mg/gram) vaginal cream USE A SMALL AMOUNT OF CREAM VAGINALLY DIRECTED EVERY OTHER DAY FOR 4 WEEKS, THEN USE TIWCE WEEKLY THEREAFTER. albuterol HFA (PROVENTIL HFA, VENTOLIN HFA) 90 mcg/actuation inhaler Inhale 2 puffs as instructed every 6 hours as needed for wheezing/shortness of breath. fluticasone (FLONASE) 50 mcg/actuation nasal spray Use 2 Sprays in each nostril once daily. FAMILY HISTORY Problem Relation Age of Onset Hypothyroidism Mother Hyperlipidemia Mother GERD Mother Alzheimer's Disease Mother Pre stage-92, 11/2024 other (stomach cancer) Father stomach Hypertension Father Hypertension Brother Hyperlipidemia Brother Colon Cancer No Family History SOCIAL HISTORY[1] Objective BP 130/89 Pulse 76 Temp 36.7 ?C (98.1 ?F) Resp 20 Wt 62 kg (136 lb 11 oz) SpO2 100% BMI 23.62 kg/m? Physical Exam Constitutional: General: She is not in acute distress. Appearance: Normal appearance. She is normal weight. She is not ill-appearing or toxic-appearing. HENT: Head: Normocephalic and atraumatic. Jaw: No trismus. Right Ear: Ear canal and external ear normal. A middle ear effusion is present. Tympanic membrane is scarred. Left Ear: Ear canal and external ear normal. A middle ear effusion is present. Tympanic membrane is scarred. Ears: Comments: 1/2 cm hole in eardrum Nose: Congestion and rhinorrhea present. Right Sinus: No maxillary sinus tenderness or frontal sinus tenderness. Left Sinus: No maxillary sinus tenderness or frontal sinus tenderness. Eyes: Extraocular Movements: Extraocular movements intact. Conjunctiva/sclera: Conjunctivae normal. Pupils: Pupils are equal, round, and reactive to light. Cardiovascular: Rate and Rhythm: Normal rate and regular rhythm. Pulses: Normal pulses. Heart sounds: Normal heart sounds, S1 normal and S2 normal. Pulmonary: Effort: Pulmonary effort is normal. Breath sounds: Normal breath sounds. Lymphadenopathy: Cervical: No cervical adenopathy. Neurological: Mental Status: She is alert. { 1. Eustachian tube dysfunction, left (H69.92) 2. Hole in the ear drum, left (H72.92) - Exam revealed fluid behind the left tympanic membrane without erythema, bulging, or purulence; consistent with eustachian tube dysfunction. - Discussed that fluid is likely causing pain and pressure; no signs of acute otitis media. - Refer to ENT within the [facility] system for further evaluation and management. - Advised against unnecessary use of antibiotics and steroids to avoid resistance and immunosuppression, especially during respiratory season. and Recording using [employer] software for draft documentation of the visit was discussed with the patient/authorized accounts receivable representative; all questions welcomed and answered. Patient/authorized representativ (more content not included)... Normal [facility] Laboratory - Chemistry and C hemistry - challengeOrdered By: Ally Bailey on 03-13-2025 Bilirubin Ql (U) Negative [facility] Glucose Ql (U) Negative [facility] Ketones Ql (U) Negative [facility] pH (U) 7 [pH] [facility] Specific gravity (U) [Rel density] 1.005 [facility] Urobilinogen (U) [Mass/Vol] 0.5102967 mg/dL [facility] Laboratory - Hematology and Cell countsOrdered By: Ally Bailey on 03-13-2025 Hemoglobin Ql (U) Negative [facility] Laboratory - UrinalysisOrder ed By: Ally Bailey on 03-13-2025 Nitrite Ql (U) Negative [facility] Protein Ql (U) Negative [facility] MR/CAMPOShilario 03-13-2025 MR/CAMPOS [facility] [address], [address] [place] [address] OFFICE VISIT Date of Service: 03/13/25 MR#: [id number] Acct: [id number] Name: TIFFANIE RAMSEY Rep #: [id number] : 1960 Provider: Dr. Ally Mendiola i, MD Age/Sex: 64/F Location: [facility] [place] Status: Signed Intake Vital Signs 01/12/25 11:20 03/08/25 08:27 03/13/25 13:04 Height 5 ft 2 in 5 ft 2 in 5 ft 2 in Weight: 135 lb BMI 24.7 BP 106/74 Pulse 70 Intake Visit Reasons: FREQUENCY Chief Complaint: new patient for urinary frequency [employer] Required: No Accompanied by: self Is patient in pain?: No Allergies doxycycline Allergy (Verified 03/13/25 13:03) gi upset Sulfa (Sulfonamide Antibiotics) (sulfa drugs) Allergy (Verified 03/13/25 13:03) Overheats and gets very tired ciprofloxacin (From Cipro) Adverse Reaction (Mild, Verified 03/13/25 13:03) Other Medications ???Medication ???Instructions ???Recorded ???Confirmed ???Type fluticasone propionate 50 1 spray intranasal QDAY 08/31/24 1 History mcg/actuation nasal spray,suspension (Flonase Allergy Relief) acetaminophen 650 mg 650 mg PO DAILY 12/26/24 03/13/25 History tablet,extended release (Tylenol Arthritis Pain) estradiol 0.01% (0.1 mg/gram) See Rx Instructions vaginal 03/13/25 Rx vaginal cream .COMPLEX #42.5 grams L.acidophilus-B.animalis-B .longum 1 cap PO DAILY 03/02/25 03/13/25 History 15 billion cell capsule (Florajen Digestion) Have you fallen in the past year?: No Nurse's Note: feels like her bladder is burning today. feels like she voids too often and occasional accidents if she holds it too long Bladder scan PVR 25cc [facility] Medical History H/O urinary frequency Arthritis High cholesterol Injury of back History of IBS Heartburn Non-smoker Shortness of breath on exertion History of echocardiogram Long COVID Left shoulder pain Surgical History History of esophagogastroduodenoscopy (EGD) History of colonoscopy History of wisdom tooth extraction History of bilateral cataract extraction History of ear surgery Family History Father Cancer Stomach Mother Cancer Melanoma Social History household members: spouse Smoking Status: Never smoker alcohol intake: former substance use type: does not use seatbelt use: always do you feel safe at home: Yes additional social history: - [facility] U[facility] Chief Complaint: new patient for urinary frequency Details: TIFFANIE RAMSEY, is a 64 F. She is here for evaluation and management of urinary frequency. She is voiding 15-20 times during the day, 0-1 times at night. There is urge rare incontinence where she cannot make it to the bathroom, when she comes home and sees the toilet leaks. This has happened twice. There is no stress incontinence with cough, laugh, sneeze, lifting, etc. She is using no pads in 24 hours. She has had 3-4 urinary tract infections in the last year. Using vaginal estrogen cream once weekly. She is only using it on her clitoris and the vulvar edges. She has been noticing a vaginal odor like a cat box. She has not had visible blood in her urine. She is sexually active. She uses a lubricant. She also uses lubricant due to dryness too. There is no sensation of vaginal bulging. She has the following issues with chronic bowel function: none. There is mild pelvic pain/lower abdominal discomfort. She has no history of smoking. There is no history of blood clots or easy bleeding. There is not a family history of female cancer. ROS Const Constitutional: No chills, fatigue, fever(s), headache(s), night sweats, weakness, weight change, abnormal sleep pattern or change in appetite Eyes Eyes: No change in vision ENT ENT: No headache(s) or dry mouth Resp Respiratory: Positive for shortness of breath (mild and is in respiratory rehab); No cough, chest congestion or wheezing Cardio Cardiology: Positive for other (No chest pain.); No shortness of breath, irregular heart rhythm or lightheadedness Gastro GI: Positive for other (No nausea.); No abdominal pain, change in bowel habits, constipation, diarrhea or vomiting Musc Musculoskeletal: No abnormal gait Skin Skin: No yellowing of the eye, lesions, itchy eyes, rash or skin ulcer Neuro Neurology: No abnormal gait, confusion, dizziness, weakness, headache(s) or memory loss Psych Psychiatric: No abnormal sleep pattern, No change in appetite, No confusion and No memory loss Endo Endocrine: No fatigue, increased thirst/drinking or weight change Aller/Imm Allergy (more content not included)... Normal [facility] No Panel InformationOrdered By: Ally Bailey on 03-13-2025 Urine Leukocytes Negatve [facility] Urine Non-Hemolyzed Blood Negative [facility] EGD Reporton 03-08-2025 EGD Report [facility] Medical Records Department [address] [place] [address] EGD Report MR#: [id number] Acct: [id number] Name: TIFFANIE RAMSEY Rep #: [id number] : 1960 64 From: Chuck Friend DO PCP: Dr. Bello Davenport MD Status:[facility] Patient Name: Tiffanie Ramsey Procedure Date: 03/08/2025 6:11 AM Date of : 1960 Age: 64 Procedure: Upper GI endoscopy Indications: Epigastric abdominal pain, Functional Dyspepsia, Indigestion, Failure to respond to medical treatment Providers: Chuck Dalton DO Referring MD: Bello Davenport MD Medicines: Monitored Anesthesia Care Patient Profile: This is a 64 year old female. Refer to note in patient chart for documentation of history and physical. Patient has symptoms of chronic abdominal cramping, chronic abdominal distention, chronic left upper quadrant abdominal pain, acute epigastric abdominal pain and chronic dyspepsia. Complications: No immediate complications. Procedure: Pre-Anesthesia Assessment: - Prior to the procedure, a History and Physical was performed, and patient medications and allergies were reviewed. The patient is competent. The risks and benefits of the procedure and the sedation options and risks were discussed with the patient. All questions were answered and informed consent was obtained. Patient identification and proposed procedure were verified by the physician in the pre-procedure area. Mental Status Examination: alert and oriented. Airway Examination: normal oropharyngeal airway and neck mobility. Respiratory Examination: clear to auscultation. CV Examination: normal. Prophylactic Antibiotics: The patient does not require prophylactic antibiotics. Prior Anticoagulants: The patient has taken no anticoagulant or antiplatelet agents except for NSAID medication. ASA Grade Assessment: II - A patient with mild systemic disease. After reviewing the risks and benefits, the patient was deemed in satisfactory condition to undergo the procedure. The anesthesia plan was to use monitored anesthesia care (MAC). Immediately prior to administration of medications, the patient was re-assessed for adequacy to receive sedatives. The heart rate, respiratory rate, oxygen saturations, blood pressure, adequacy of pulmonary ventilation, and response to care were monitored throughout the procedure. The physical status of the patient was re-assessed after the procedure. After obtaining informed consent, the endoscope was passed under direct vision. Throughout the procedure, the patient's blood pressure, pulse, and oxygen saturations were monitored continuously. The Endoscope was introduced through the mouth, and advanced to the fourth part of the duodenum. Small bowel enteroscopy was deemed necessary. The upper GI endoscopy was accomplished without difficulty. The patient tolerated the procedure well. Scope In: 6:49:06 AM Scope Out: 6:53:52 AM Total Procedure Duration Time 0 hours 4 minutes 46 seconds Findings: The Z-line was irregular and was found 39 cm from the incisors. Biopsies were taken with a cold forceps for histology. Verification of patient identification for the specimen was done. Estimated blood loss was minimal. A small hiatal hernia was present. Patchy mildly erythematous mucosa without bleeding was found in the gastric body. Biopsies were taken with a cold forceps for histology. Biopsies were taken with a cold forceps for Helicobacter pylori testing. Verification of patient identification for the specimen was done. Estimated blood loss was minimal. Patchy mildly congested mucosa without active bleeding and with no stigmata of bleeding was found in the duodenal bulb. Biopsies were taken with a cold forceps for histology. Verification of patient identification for the specimen was done. Estimated blood loss was minimal. Impression: - Z-line irregular, 39 cm from the incisors. Biopsied. - Small hiatal hernia. - Erythematous mucosa in the gastric body. Biopsied. - Congested duodenal mucosa. Biopsied. Recommendation: - Discharge patient to home. - Resume previous diet. - Continue present medications. Procedure Code(s): --- Professional --- 63178, Small intestinal endoscopy, enteroscopy beyond second portion of duodenum, not including ileum; with biopsy, single or multiple CPT copyright 2021 [employer]. All rights reserved. The codes documented in this report are preliminary and upon car coupler review may be revised to meet current compliance requirements. Chuck Dalton DO 03/08/2025 6:59:07 AM This report has been signed electronically. Number of Addenda: 0 Note Initiated On: 03/08/2025 6:11 AM 03/08/25 0659 Date Chuck Dalton DO Cosigner Signature: Date (more content not included)... Normal [facility] MR/OP.Tony 03-08-2025 MR/OP.[facility] Medical Records Department [address] [place] [address] Provation Physician Letter MR#: [id number] Acct: [id number] Name: TIFFANIE RAMSEY Rep #: [id number] : 1960 64 From: Chuck Dalton DO PCP: Dr. Bello Davenport MD Status:[facility] [place] 03/08/2025 Bello Davenport MD [address] [place] [address] Re : Upper GI endoscopy procedure for Tiffanie Ramsey Dear Dr. Davenport This procedure was performed on February. My impressions and recommendations are as follows: Impressions : - Z-line irregular, 39 cm from the incisors. Biopsied. - Small hiatal hernia. - Erythematous mucosa in the gastric body. Biopsied. - Congested duodenal mucosa. Biopsied. Recommendations : - Discharge patient to home. - Resume previous diet. - Continue present medications. My findings are described in the full procedure note, which is enclosed. If I can be of further assistance, please feel free to contact me at . Sincerely, Chuck Dalton DO 03/08/2025 6:59:07 AM This report has been signed electronically. 03/08/2559 Date Chuck Murilloignbeka Signature: Date (if indicated) CC: Dr. Bello Davenport MD; Dr. Taqueria Vieira MD; Chuck Dalton DO Date Dictated: 03/08/25610 Date Transcribed: Pre K Teacher: JAVIER Signed [facility] MR/POSTOP.[facility] 03-08-2025 MR/POSTOP.[facility] Medical Records Department [address] [place] [address] Anesthesia Postop Eval I 03/08/25 0704 MR#: [id number] Acct: [id number] Name: TIFFANIE RAMSEY Rep #: [id number] : 1960 64 From: Jose Lopez PCP: Dr. Bello Davenport MD Status:[facility] Y Race: C Location: AC AC10-1 Anesthesia: Postop Eval I Current Vital Signs Temperature: 97.1 F Pulse Rate: 65 Blood Pressure: 92/52 Respiratory Rate: 16 Pulse Ox: 96 Oxygen Delivery Method: Room Air Assessment Airway patent: Yes Spontaneous unlabored respirations: Yes Mental status: Asleep nausea: No Vomiting: No Anesthesia Complication: No Fluid Hydration Crystalloid volume administer (ml): 400 Total IV fluid infused: 400 Progress Note Anesthesia document: Postop Eval 1 completed: Yes 03/08/25704 Date Jose Smithigner Signature: Date CC: Signed Normal [facility] MR/[id number] 03-08-2025 [facility] Medical Records Department [address] [place] [address] Anesthesia Postop Eval II 03/08/25718 MR#: [id number] Acct: [id number] Name: TIFFANIE RAMSEY Rep #: [id number] : 1960 64 From: Umesh Graf MD PCP: Dr. Bello Davenport MD Status:[facility] Y Race: C Location: [address] Anesthesia Postop Eval I Sum Postop Eval Completion status Anesthesia document: Postop Eval 1 completed: Yes Anesthesia Postop Eval I Summary Anesthesia Postop Eval I Summary: Anesthesia Postop Eval I: Assessment Summary Airway patent Yes 03/08/25 07:05 [email or web address] Spontaneous unlabored Yes 03/08/25 07:05 [email or web address] respirations Mental status Asleep 03/08/25 07:05 [email or web address] nausea No 03/08/25 07:05 [email or web address] Vomiting No 03/08/25 07:05 [email or web address] Anesthesia Postop Eval I: Fluid Summary Crystalloid volume administer 400 03/08/25 07:05 [email or web address] (ml) Colloids volume administered ( ml) Blood Product volume administered (ml) Total IV fluid infused 400 03/08/25 07:05 [email or web address] Anesthesia Postop Eval I: Summary Notes Anesthesia Complication No 03/08/25 07:05 [email or web address] Anesthesia Complication Comment: Post-operative progress note Anesthesia: Postop Eval II Evaluation Mental status: Awake Pain Level: 0 nausea: No Vomiting: No 03/08/25 07 Date Umesh Lebron Signature: Date CC: Signed Normal [facility] ID - Individual Treatment Pl anon 03-08-2025 ID - Individual Treatment Plan [facility] Pulmonary Rehab Reports [address] [place] [address] ID - Individual Treatment Plan MR#: [id number] Acct: [id number] Name: TIFFANIE RAMSEY Rep #: [id number] : 1960 64 From: Renzo Marquez BS, RVT PCP: Dr. Bello Davenport MD Exercise - Initial Assessment Visit Session Number:: 15 Physician Prescribed Exercise Modalities: Treadmill, Schwinn Airdyne AD-7 and SciFit Stepper Target HR:: 116 (92-116) Current RPD:: 1-2 Maximum Exercise HR:: 124 Resting Blood Pressure: 90/70 Maximum Exercise Blood Pressure: 136/70 Minimum SpO2 with exercise: 95 EKG Type: NSR to ST Nutrition/Wt Mgmt - Initial Visit Session Number:: 15 Weight Management Admit Height:: 5 ft 2 in Admit Weight:: 137 lb 8 oz Admit BMI:: 25.1 Nutrition/Wt Mgmt - 30-Day Visit Session Number:: 15 Weight Management Height: 5 ft 2 in Weight:: 137 lb 8 oz BMI: 25.1 Nutrition/Wt Mgmt - 60-Day Visit Date of Eval: 03/08/25 Session Number:: 15 Weight Management Height: 5 ft 2 in Weight:: 137 lb 8 oz BMI: 25.1 Weight Goals Progress:: Goal met (Pt is at a healthy weight. Pt is scheduled to attend nutrition classes with our senior communications engineer. Heart healthy low sodium diet encouraged. ) Nutrition/Wt Mgmt - 90-Day Visit Session Number:: 15 Weight Management Height: 5 ft 2 in Weight:: 137 lb 8 oz BMI: 25.1 Weight Goals Progress:: Goal met (Pt is at a healthy weight. Pt is scheduled to attend nutrition classes with our senior communications engineer. Heart healthy low sodium diet encouraged. ) Nutrition/Wt Mgmt - Final Visit Session Number:: 15 Weight Management Height: 5 ft 2 in Weight:: 137 lb 8 oz BMI: 25.1 Psychosocial - Initial Assess Visit Session Number:: 15 Problems/Goals History of Emotional Disorders: Anxious (Pt does not have an official diagnosis of being anxious due to illness.) Psychosocial Goals: 1. Patient is free from overwhelming symtoms of depression (or anxiety, 2. Identifies personal stressors states the strategies for managing, 3. Identifies activities to decrease isolation and/or symptoms of, 4. Improved psychosocial coping skills., 5. Verbalizes coping strategies., 6. Adequate treatment of depression. and 7. Improved Q.O.L. Self-reported stressors: Recent Illness Psychosocial Test Tool Used:: PHQ-9 Questionnaire PHQ-9 Score: 3 Referred to MD for counseling:: No Referral to Behavioral Health PS - Interventions: Yes: Attend Stress Management Classes Intervention/Plan: See List Interventions/Plan:: Assess stressors,coping strategies signs of derpression on admission, Instruct/assist pt to develop coping personal stress Mgt strategies, Refer to Behavioral Health if appropriate, Refer to Physician if appropriate, Instruct patient to recognize signs symptoms of depression, Instruct patient to recog and Other additional plan/intervention Comments:: Pt to attend stress management class. Will reassess every 30 days. Psychosocial - 30-Day Visit Session Number:: 15 Problems/Goals History of Emotional Disorders: Anxious (Pt does not have an official diagnosis of being anxious due to illness.) Psychosocial Goals: 1. Patient is free from overwhelming symtoms of depression (or anxiety, 2. Identifies personal stressors states the strategies for managing, 3. Identifies activities to decrease isolation and/or symptoms of, 4. Improved psychosocial coping skills., 5. Verbalizes coping strategies., 6. Adequate treatment of depression. and 7. Improved Q.O.L. Self-reported stressors: Recent Illness Psychosocial Test Tool Used:: PHQ-9 Questionnaire PHQ-9 Score: 3 Referred to MD for counseling:: No Referral to Behavioral Health PS - Interventions: Yes: Attend Stress Management Classes Plan Interventions/Plan:: Assess stressors,coping strategies signs of derpression on admission, Instruct/assist pt to develop coping personal stress Mgt strategies, Refer to Behavioral Health if appropriate, Refer to Physician if appropriate, Instruct patient to recognize signs symptoms of depression, Instruct patient to recog and Other additional plan/intervention Comments:: Pt to attend stress management class. Will reassess every 30 days. Psychosocial - 60-Day Visit Date of Eval: 03/08/25 Session Number:: 15 Problems/Goals History of Emotional Disorders: Anxious (Pt does not have an official diagnosis of being anxious due to illness.) Psychosocial Goals: 1. Patient is free from overwhelming symtoms of depression (or anxiety, 2. Identifies personal stressors states the strategies for managing, 3. Identifies activities to decrease isolation and/or symptoms of, 4. Improved psychosocial coping skills., 5. Verbalizes coping strategies., 6. Adequate treatment of depression. and 7. Improved Q.O.L. Self-reported stressors: Recent Illness Psychosocial Test Tool Used:: PHQ-9 Questionnaire PHQ-9 Score: 3 Referred t (more content not included)... Normal [facility] Surgery Specimen Level Gayle 03-08-2025 Surgery Specimen Level IV Patient Age/Sex Location Account Attending Physician TIFFANIE RAMSEY/Patito EN [id number] Chuck Dalton DO Specimen: [id number] Received: 03/08/25 Status: PHILL Lott Num: [id number] Spec Type: EGD BIOPSY Subm Dr: Chuck Dalton DO HEADER OPERATION: EGD with biopsy PRE-OP DIAGNOSIS: Gas bloat syndrome, abdominal pain TISSUE SUBMITTED: A- Duodenum biopsy, B- Gastric body biopsy, C- Distal esophagus biopsy MICROSCOPIC DIAGNOSIS A. Small intestine, duodenum, biopsy: * Small bowel mucosa with no pathologic change B. Stomach, gastric body, biopsy: * Oxyntic mucosa with mild chronic inflammation * No morphologic evidence of Helicobacter pylori organisms C. Distal esophagus, biopsy: * Benign squamous epithelium with reactive changes * Oxyntocardiac type mucosa with mild chronic inflammation, negative for goblet cells MICROSCOPIC DESCRIPTION Slides are reviewed. GROSS DESCRIPTION A. Received in fixative is one container labeled with the patient's name and designated Duodenum biopsy. The specimen consists of three irregular fragments of tavares tissue that measure 0.3 to 0.9 cm. The specimen is totally submitted in one cassette. B. Received in fixative is one container labeled with the patient's name and designated Gastric body biopsy. The specimen consists of two irregular fragments of tavares tissue that measure 0.3 and 0.5 cm. The specimen is totally submitted in one cassette. C. Received in fixative is one container labeled with the patient's name and designated Distal esophagus biopsy. The specimen consists of two irregular fragments of tavares tissue, each measuring 0.5 cm. The specimen is totally submitted in one cassette. MS 03/08/2025 [facility]:[id number] Patient Age/Sex Location Account Attending Physician TIFFANIE RAMSEY 64/F EN [id number] Chuck Dalton DO Signed (signature on file) Dr. Nargis Henderson DO 03/09/25 1041 Normal [facility] Comment on above: Performed By: #### P DAVID ####[facility] [id number] [place], [address] Joe 02-26-2025 [facility] Telephone ([facility]) -- TIFFANIE RAMSEY ([id number]) 1960 F Date Time Provider Department 02/26/25 TAQUERIA VIEIRA [facility] During your visit today, we recorded the following information about you: Preet Lockwood RN 02/26/2025 11:07 AM Addendum Pt called in and reports provider had wanted her to call and have records from Dr Diaz her ENT sent to providers office for [facility]. She states that they need provider to send a form requesting the forms. Sending form for all of Pt's records to fax # [phone]. Do not know what provider wants in particular. Sent form for providers office to fax over all of Pt's office notes to fax # [phone]. JOHN Baez William J, MD 02/26/2025 11:08 AM Signed We need records for her issues with taste and smell, particularly if she had nasal endoscopy done Rosalind Bergeron RN 02/26/2025 12:06 PM Signed Called and spoke with patient, let her know that I sent her a [employer] message with form to request medical records. She was appreciative, she will review message and will call with any further questions. Rosalind Bergeron RN Allergies As of Date: 02/26/2025 Noted Allergy Reaction CIPROFLOXACIN 01/16/2025 14 - Other: See Comments Comments: Abdominal cramping DOXYCYCLINE 06/07/2024 14 - Other: See Comments Comments: Abdominal cramping ABBY (FEXOFENADINE HCL) 06/24/2005 5 - Intolerance Comments: Hyperactivity CLARITIN (LORATADINE) 06/24/2005 5 - Intolerance Comments: Hyperactivity LIPITOR (ATORVASTATIN) 07/22/2023 8 - GI Upset SULFA (SULFONAMIDE ANTIBIOTICS) 09/12/2004 2 - Rash ZYRTEC (CETIRIZINE HCL) 06/24/2005 5 - Intolerance Comments: Drowsiness Date Reviewed: 02/22/2025 Reviewed by: Kiera Tristan MA - Fully Assessed Reason for Visit: Records from Dr Diaz ENT [Other] Prescriptions as of 02/27/2025 - estradiol (ESTRACE) 0.01 % (0.1 mg/gram) vaginal cream USE A SMALL AMOUNT OF CREAM VAGINALLY DIRECTED EVERY OTHER DAY FOR 4 WEEKS, THEN USE TIWCE WEEKLY THEREAFTER. - albuterol HFA (PROVENTIL HFA, VENTOLIN HFA) 90 mcg/actuation inhaler Inhale 2 puffs as instructed every 6 hours as needed for wheezing/shortness of breath. - fluticasone (FLONASE) 50 mcg/actuation nasal spray Use 2 Sprays in each nostril once daily. Problem List As Of Date 02/26/2025 Noted Resolved CENT PERF TYMPANIC MEMB [H72.00] 11/10/2004 Impacted cerumen [H61.20] 12/06/2006 07/13/2023 OTALGIA NOS [H92.09] 12/06/2006 Plantar fasciitis [M72.2] 09/13/2013 Pain in limb [M79.609] 09/13/2013 Vitamin D deficiency [E55.9] 07/13/2023 Diagnosed: 07/13/2023 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 [N89.8] 07/13/2023 Diagnosed: 07/13/2023 Urinary tract infection [N39.0] 07/13/2023 Diagnosed: 07/13/2023 Urge incontinence of urine [N39.41] 07/13/2023 Diagnosed: 07/13/2023 Tendinitis of left rotator cuff [M75.82] 07/13/2023 Diagnosed: 07/13/2023 Menopausal symptom [N95.1] 07/13/2023 Diagnosed: 07/13/2023 Seborrheic dermatitis [L21.9] 07/13/2023 Diagnosed: 07/13/2023 Non-toxic multinodular goiter [E04.2] 07/13/2023 Diagnosed: 07/13/2023 Insomnia [G47.00] 07/13/2023 Diagnosed: 07/13/2023 Impingement syndrome of shoulder region [M75.40]07/13/2023 Diagnosed: 07/13/2023 Hyperlipidemia [E78.5] 07/13/2023 Diagnosed: 07/13/2023 Greater trochanteric bursitis [M70.60] 07/13/2023 Diagnosed: 07/13/2023 Gastroesophageal reflux disease [K21.9] 07/13/2023 Diagnosed: 07/13/2023 Family history of malignant neoplasm of gastroi*07/26/2012 Diagnosed: 07/13/2023 Dysphagia [R13.10] 07/13/2023 Diagnosed: 07/13/2023 Irritable bowel syndrome with constipation [K58*07/13/2023 Diagnosed: 07/13/2023 Cobalamin deficiency [E53.8] 07/13/2023 Diagnosed: 07/13/2023 Benign paroxysmal positional vertigo [H81.10] 07/13/2023 Diagnosed: 07/13/2023 Allergic rhinitis [J30.9] 07/13/2023 Diagnosed: 07/13/2023 Hearing loss [H91.90] 07/13/2023 Diagnosed: 07/13/2023 Pain in left hip [M25.552] 10/01/2023 DDD (degenerative disc disease), lumbar [M51.36*10/01/2023 Encounter Status:Closed by PREET LOCKWOOD on 02/26/25 [facility] 02-23-2025 [facility] Telephone ([facility]) -- TIFFANIE RAMSEY ([id number]) 1960 F Date Time Provider Department 02/23/25 JANINA MIRANDA During your visit today, we recorded the following information about you: Juan Miguel Muñoz 02/23/2025 8:51 AM Signed Patient stated she has her EGD with a different location closer to her house and will not be needing it here. Allergies As of Date: 02/23/2025 Noted Allergy Reaction CIPROFLOXACIN 01/16/2025 14 - Other: See Comments Comments: Abdominal cramping DOXYCYCLINE 06/07/2024 14 - Other: See Comments Comments: Abdominal cramping ABBY (FEXOFENADINE HCL) 06/24/2005 5 - Intolerance Comments: Hyperactivity CLARITIN (LORATADINE) 06/24/2005 5 - Intolerance Comments: Hyperactivity LIPITOR (ATORVASTATIN) 07/22/2023 8 - GI Upset SULFA (SULFONAMIDE ANTIBIOTICS) 09/12/2004 2 - Rash ZYRTEC (CETIRIZINE HCL) 06/24/2005 5 - Intolerance Comments: Drowsiness Date Reviewed: 02/22/2025 Reviewed by: Kiera Tristan MA - Fully Assessed Prescriptions as of 02/28/2025 - estradiol (ESTRACE) 0.01 % (0.1 mg/gram) vaginal cream USE A SMALL AMOUNT OF CREAM VAGINALLY DIRECTED EVERY OTHER DAY FOR 4 WEEKS, THEN USE TIWCE WEEKLY THEREAFTER. - albuterol HFA (PROVENTIL HFA, VENTOLIN HFA) 90 mcg/actuation inhaler Inhale 2 puffs as instructed every 6 hours as needed for wheezing/shortness of breath. - fluticasone (FLONASE) 50 mcg/actuation nasal spray Use 2 Sprays in each nostril once daily. Problem List As Of Date 02/23/2025 Noted Resolved CENT PERF TYMPANIC MEMB [H72.00] 11/10/2004 Impacted cerumen [H61.20] 12/06/2006 07/13/2023 OTALGIA NOS [H92.09] 12/06/2006 Plantar fasciitis [M72.2] 09/13/2013 Pain in limb [M79.609] 09/13/2013 Vitamin D deficiency [E55.9] 07/13/2023 Diagnosed: 07/13/2023 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 [N89.8] 07/13/2023 Diagnosed: 07/13/2023 Urinary tract infection [N39.0] 07/13/2023 Diagnosed: 07/13/2023 Urge incontinence of urine [N39.41] 07/13/2023 Diagnosed: 07/13/2023 Tendinitis of left rotator cuff [M75.82] 07/13/2023 Diagnosed: 07/13/2023 Menopausal symptom [N95.1] 07/13/2023 Diagnosed: 07/13/2023 Seborrheic dermatitis [L21.9] 07/13/2023 Diagnosed: 07/13/2023 Non-toxic multinodular goiter [E04.2] 07/13/2023 Diagnosed: 07/13/2023 Insomnia [G47.00] 07/13/2023 Diagnosed: 07/13/2023 Impingement syndrome of shoulder region [M75.40]07/13/2023 Diagnosed: 07/13/2023 Hyperlipidemia [E78.5] 07/13/2023 Diagnosed: 07/13/2023 Greater trochanteric bursitis [M70.60] 07/13/2023 Diagnosed: 07/13/2023 Gastroesophageal reflux disease [K21.9] 07/13/2023 Diagnosed: 07/13/2023 Family history of malignant neoplasm of gastroi*07/26/2012 Diagnosed: 07/13/2023 Dysphagia [R13.10] 07/13/2023 Diagnosed: 07/13/2023 Irritable bowel syndrome with constipation [K58*07/13/2023 Diagnosed: 07/13/2023 Cobalamin deficiency [E53.8] 07/13/2023 Diagnosed: 07/13/2023 Benign paroxysmal positional vertigo [H81.10] 07/13/2023 Diagnosed: 07/13/2023 Allergic rhinitis [J30.9] 07/13/2023 Diagnosed: 07/13/2023 Hearing loss [H91.90] 07/13/2023 Diagnosed: 07/13/2023 Pain in left hip [M25.552] 10/01/2023 DDD (degenerative disc disease), lumbar [M51.36*10/01/2023 Encounter Status:Closed by JUAN MIGUEL MUÑOZ on 02/28/25 [facility] CNOVon 02-22-2025 CNOV Office Visit ([facility] ) -- TIFFANIE RAMSEY ([id number]) 1960 F Date Time Provider Department 02/22/25 9:00 AM TAQUERIA VIEIRA [facility] During your visit today, we recorded the following information about you: Temperature Pulse Blood pressure Weight 98 degrees 82/minute 109/72 62.2 kg Height 1.62 m Taqueria Vieira MD 02/22/2025 9:36 AM Signed We discussed your ongoing symptoms related to long COVID: - Continue pacing your activities and gradually increase your activity level as tolerated. Think of your energy as a limited resource to be distributed throughout the day. Avoid overexertion to prevent setbacks. - Pulmonary rehabilitation has been recommended to help retrain your breathing muscles and improve your shortness of breath. Please follow up with pulmonary rehab as directed. - You are scheduled for an EGD (esophagogastroduodenoscop y) with your tile layer on March 13 to evaluate your abdominal symptoms. Please proceed with this appointment. - You may try NAC (N-acetylcysteine) and L-carnitine supplements for long COVID symptoms, as previously recommended by Dr. Schaeffer. However, you may wait until after your EGD to start these, as discussed. - Low-dose naltrexone was previously recommended but caused side effects. You may consider retrying it in the future if symptoms persist, but this is not urgent at this time. - ENT records from Dr. Elizabeth are needed to confirm whether a nasal endoscopy was performed. Please contact his office and request that these records be sent to our clinic. This documentation is required if we decide to pursue a stellate ganglion block for your taste and smell issues. - If your burning tongue symptoms persist, follow up with ENT to address this concern. There is a condition called burning tongue that may require further evaluation or treatment. - Your calcium levels have been slightly elevated for years. I have ordered repeat labs to check calcium, phosphorus, parathyroid hormone, and vitamin D levels. You can complete these labs at [place] or [place] when convenient. If abnormalities persist, we may consult endocrinology for further evaluation. We discussed your recent COVID infection and vaccination: - You recently had COVID, which may have temporarily worsened your symptoms. This is common, and symptoms should gradually return to baseline over time. - You may consider getting another COVID vaccine approximately 90 days after your recent infection. Vaccines can reduce the risk of severe illness, though mild side effects like fatigue are common. Please weigh the benefits and risks and decide based on your comfort level. We discussed your recent test results and evaluations: - Your echocardiogram (performed on 02/20/2025) showed normal heart function with an ejection fraction of 60% and no significant abnormalities. - Your pulmonary function tests (PFTs) from 12/21/2024 were unremarkable. - Your chest X-ray was negative, and your EKG showed normal sinus rhythm with low voltage QRS. - Your initial and repeat lab work were mostly unremarkable, with the exception of slightly elevated calcium and a mildly low omega-check (3.2). You may consider adding fish oil or flaxseed oil to your diet, though this is optional. We discussed your follow-up plan: - You have an upcoming appointment with Dr. Maria (cardiology) in April and a follow-up with me in May in [place]. We will review all results and progress at that time. - If you do not hear from me about Dr. Elizabeth?s records within two weeks, please remind me so I can follow up. - If you experience any new or worsening symptoms, please contact our office. Please continue to prioritize rest, pacing, and gradual activity increases. Let me know if you have any questions or concerns before your next visit. 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 Repeat reCOVer Clinic visit. HPI Long COVID: - Initial COVID infection in February 2023; symptoms have persisted since. - Recent COVID infection in early January; Tiffanie reports feeling worse since. - Symptoms include: - Decreased energy, lethargy, and exhaustion. - Insomnia and racing thoughts. - Dyspnea on exertion. - Brain fog. - Arthralgias, particularly in knees and shoulders. - GI issues, including cramps and IBS-like symptoms. - Burning sensation in the tongue. - Anosmia and ageusia. - Alopecia. - Anxiety. - Recent negative Cologuard test. - Multiple reactions to vaccines reported. - Recent echocardiogram on 02/20/2025 showed EF of 60 ? 5%, normal left ventricular diastolic dysfunction, normal right-sided heart, and no significant valve abnormalities. (more content not included)... Normal [facility] ECHOon 02-20-2025 Echocardiography Echocardiography Rep ort: Transthoracic Echo [facility] Date of service: 02/20/2025 9:48:43 AM Ordering physician: TAQUERIA VIEIRA Exam indication: Shortness of Breath Technologist: Emelia Musa [facility] Interpreting physician: Shelia Quezada MD PATIENT: Name: MRS. TIFFANIE RAMSEY : 1960 Age: 64 years Gender: F Primary rhythm: sinus. Height: 160.02 cm BSA: 1.64 m Weight: 60.78 kg BMI: 23.7 kg/m Heart rate 73 bpm Blood pressure 139/78 mmHg Color Doppler was utilized to interrogate the cardiac valves assessed and spectral Doppler was utilized to determine the flow velocities and pressure gradients reported in this exam. Myocardial strain analysis was performed in this exam to aid in the assessment of cardiac function. MEASUREMENTS: Value Indexed Normal Max aortic dimension 3.1 cm Ao < 3.8 Left atrial volume 30 ml (Powers's) 18 ml/m Kylah <= 34 LV ID (diastole) 3.4 cm (2D) 2.09 cm/m LV ID (systole) 2.0 cm (2D) 1.25 cm/m IVS, leaflet tips 0.8 cm (2D) Posterior wall thickness 0.8 cm (2D) Left ventricular mass 71 g (2D) 43 g/m Global peak long strain -18.8 % LV stroke volume 34 ml (2D 4-ch.) LV end diastolic volume 56 ml (2D 4-ch.) 34.4 ml/m 29<=EDVi<62 LV end systolic volume 22 ml (2D 4-ch.) 13.7 ml/m Ejection Fraction 60 % (2D 4-ch.) EF > 54 FINDINGS: LEFT VENTRICLE The left ventricle is normal in size. Left ventricular systolic function is normal. Global LV myocardial strain is normal. Normal left ventricular diastolic function. Mitral annular lateral E/e': 8.5. Mitral annular septal E/e': 14.0. Wall Motion: All scored segments are normal. RIGHT VENTRICLE The right ventricle is normal in size. Right ventricular systolic function is normal. RV systolic tissue Doppler velocity is 8.2 cm/s. Tricuspid annular displacement is 2.0 cm. Estimated right ventricular systolic pressure is not reported due to an insufficient tricuspid regurgitation signal. Estimated right atrial pressure is 8 mmHg based on IVC assessment. LEFT ATRIUM The left atrial cavity is normal in size. RIGHT ATRIUM The right atrial cavity is normal in size. Inferior Vena Cava: The inferior vena cava appears normal measuring 1.0 cm. The vessel decreases less than 50 percent with inspiration. MITRAL VALVE The mitral valve leaflets are structurally normal. There is no mitral valve regurgitation. The pressure half time is 68 msec. The peak mitral E/A ratio is 0.65. The average mitral E/e' ratio is 11.3. The mitral flow deceleration time is 235 msec. TRICUSPID VALVE The tricuspid valve leaflets are structurally normal. There is trace tricuspid valve regurgitation. AORTIC VALVE The aortic valve cusps are structurally normal. There is trace aortic valve regurgitation. Tricuspid aortic valve. PULMONIC VALVE The pulmonic valve cusps are structurally normal. There is trace pulmonic valve regurgitation. AORTA The visualized aorta is normal in size. Measurements - Mid ascending aorta 3.1 cm. PULMONARY ARTERIES The pulmonary arteries are unseen or not interrogated. INTERATRIAL SEPTUM There is no evidence of intracardiac shunting as detected by Doppler. INTERVENTRICULAR SEPTUM There is no flow through the interventricular septum as detected by Doppler. PERICARDIUM There is no pericardial effusion. There is an epicardial fat pad. CONCLUSIONS: - Exam indication: Shortness of Breath - The left ventricle is normal in size. Left ventricular systolic function is normal. EF = 60 5% (2D 4-ch.) Normal left ventricular diastolic function. - The right ventricle is normal in size. Right ventricular systolic function is normal. - There are no significant valvular abnormalities. - The patient has not had a prior CC echocardiographic exam for comparison. * * * Final * * * CC [employer] [facility] Image : [id number] [facility] ID - Individual Treatment Pl anon 02-08-2025 ID - Individual Treatment Plan [facility] Pulmonary Rehab Reports [address] [place] [address] ID - Individual Treatment Plan MR#: [id number] Acct: [id number] Name: TIFFANIE RAMSEY Rep #: [id number] : 1960 64 From: Renzo Marquez BS, RVT PCP: Dr. Bello Davenport MD Exercise - Initial Assessment Visit Session Number:: 5 Physician Prescribed Exercise Modalities: Treadmill, Schwinn Airdyne AD-7 and SciFit Stepper Current METSs:: 5.7 Target HR:: 116 (92-116) Current RPD:: 2 Maximum Exercise HR:: 134 Resting Blood Pressure: 126/82 Maximum Exercise Blood Pressure: 150/84 Minimum SpO2 with exercise: 97 EKG Type: NSR to ST Nutrition/Wt Mgmt - Initial Visit Session Number:: 5 (Nutrition survey score of 1.) Weight Management Admit Height:: 5 ft 2 in Admit Weight:: 137 lb 8 oz Admit BMI:: 25.1 Nutrition/Wt Mgmt - 30-Day Visit Date of Eval: 02/08/25 Session Number:: 5 (Nutrition survey score of 1.) Weight Management Height: 5 ft 2 in Weight:: 137 lb 8 oz BMI: 25.1 Weight Goals Progress:: Progressing (Pt is at healthy weight. Pt will attend nutrition class.) Nutrition/Wt Mgmt - 60-Day Visit Session Number:: 5 (Nutrition survey score of 1.) Weight Management Height: 5 ft 2 in Weight:: 137 lb 8 oz BMI: 25.1 Nutrition/Wt Mgmt - 90-Day Visit Session Number:: 5 (Nutrition survey score of 1.) Weight Management Height: 5 ft 2 in Weight:: 137 lb 8 oz BMI: 25.1 Nutrition/Wt Mgmt - Final Visit Session Number:: 5 (Nutrition survey score of 1.) Weight Management Height: 5 ft 2 in Weight:: 137 lb 8 oz BMI: 25.1 Psychosocial - Initial Assess Visit Session Number:: 5 (Nutrition survey score of 1.) Problems/Goals History of Emotional Disorders: Anxious (Due to recent health issues. Pt does not have an official diagnosis of anxiety.) Psychosocial Goals: 1. Patient is free from overwhelming symtoms of depression (or anxiety, 2. Identifies personal stressors states the strategies for managing, 3. Identifies activities to decrease isolation and/or symptoms of, 4. Improved psychosocial coping skills., 5. Verbalizes coping strategies., 6. Adequate treatment of depression. and 7. Improved Q.O.L. Self-reported stressors: Recent Illness Psychosocial Test Tool Used:: PHQ-9 Questionnaire PHQ-9 Score: 3 Referral to Behavioral Health PS - Interventions: Yes: Attend Stress Management Classes Intervention/Plan: See List Interventions/Plan:: Assess stressors,coping strategies signs of derpression on admission, Instruct/assist pt to develop coping personal stress Mgt strategies, Refer to Behavioral Health if appropriate, Refer to Physician if appropriate, Instruct patient to recognize signs symptoms of depression and Instruct patient to recog Psychosocial - 30-Day Visit Date of Eval: 02/08/25 Session Number:: 5 (Nutrition survey score of 1.) Problems/Goals History of Emotional Disorders: Anxious (Due to recent health issues. Pt does not have an official diagnosis of anxiety.) Psychosocial Goals: 1. Patient is free from overwhelming symtoms of depression (or anxiety, 2. Identifies personal stressors states the strategies for managing, 3. Identifies activities to decrease isolation and/or symptoms of, 4. Improved psychosocial coping skills., 5. Verbalizes coping strategies., 6. Adequate treatment of depression. and 7. Improved Q.O.L. Self-reported stressors: Recent Illness Psychosocial Test Tool Used:: PHQ-9 Questionnaire PHQ-9 Score: 3 Referral to Behavioral Health PS - Interventions: Yes: Attend Stress Management Classes Plan Interventions/Plan:: Assess stressors,coping strategies signs of derpression on admission, Instruct/assist pt to develop coping personal stress Mgt strategies, Refer to Behavioral Health if appropriate, Refer to Physician if appropriate, Instruct patient to recognize signs symptoms of depression and Instruct patient to recog Psychosocial - 60-Day Visit Session Number:: 5 (Nutrition survey score of 1.) Problems/Goals History of Emotional Disorders: Anxious (Due to recent health issues. Pt does not have an official diagnosis of anxiety.) Psychosocial Goals: 1. Patient is free from overwhelming symtoms of depression (or anxiety, 2. Identifies personal stressors states the strategies for managing, 3. Identifies activities to decrease isolation and/or symptoms of, 4. Improved psychosocial coping skills., 5. Verbalizes coping strategies., 6. Adequate treatment of depression. and 7. Improved Q.O.L. Self-reported stressors: Recent Illness Psychosocial Test Tool Used:: PHQ-9 Questionnaire PHQ-9 Score: 3 Referral to Behavioral Health PS - Interventions: Yes: Attend Stress Management Classes Plan Interventions/Plan:: Assess stressors,coping strategies signs of derpression on admission, Instruct/assist pt to develop coping personal stress Mgt strategies, Refer to Behavioral Health (more content not included)... Normal [facility] Breast imaging reportOrdered By: Reinaldo Soriano on 01-18-2025 Study report [facility] Imaging Services [address] [place] [address] SCRN MAMM (CAD)W/BEBA BILAT MR#: [id number] Acct: [id number] Name: TIFFANIE RAMSEY Rep #: [id number] : 1960 F 64 From: Avery Soriano MD PCP: Dr. Bello Davenport MD Status: REG [facility] Study:SCRN MAMM (CAD)W/BEBA BILAT Date of Exa m: 01/18/25 Exam# [id number] Ordering Dr: Lise Araya CEMENT KILN OPERATOR CEMENT KILN OPERATOR-C EXAM: SCRN MAMM (CAD)W/BEBA BILAT DATE: 01/18/2025 CLINICAL HISTORY: F, Age 64 y/o , SCREENING FOR BREAST CANCER No family history. TECHNIQUE: SCRN MAMM (CAD)W/BEBA BILAT COMPARISON: Prior exam(s) dated January 03, 2024.. FINDINGS: TISSUE DENSITY: There are scattered areas of fibroglandular density. Bilateral Breast Mammographic Findings: No significant masses, calcifications or other abnormalities are identified. Stable asymmetry were more breast tissue is seen in the right breast as compared to the left side. No suspicious masses, areas of developing architectural distortion, or suspicious calcifications. There has been no significant interval change. BI/SCRN MAMM (CAD)W/BEBA BILAT IMPRESSION: Stable examination. OVERALL FINAL ASSESSMENT BI-RADS 2: BENIGN RECOMMENDATION: Routine annual follow-up in 1 Year A letter with findings and recommendations will be mailed to the patient. Reading Location: [id number] CC: VERENICE Araya; Dr. Bello Davenport MD ~ Pre K Teacher: Signed [facility] SCRN MAMM (CAD)W/BEBA BILATo n 01-18-2025 SCRN MAMM (CAD)W/BEBA BILAT [facility] Imaging Services [address] [place], [place] [address] SCRN MAMM (CAD)W/BEBA BILAT MR#: [id number] Acct: [id number] Name: TIFFANIE RAMSEY Rep #: [id number] : 1960 F 64 From: Reinaldo stanton MD PCP: Dr. Bello Davenport MD Status: [facility] Study: SCRN MAMM (CAD)W/BEBA BILAT Date of Exam: 12/30 06/24 Exam# [id number] Ordering Dr: Lise Araya NP, NP -Velvet EXAM: SCRN MAMM (CAD)W/BEBA BILAT DATE: 01/18/2025 CLINICAL HISTORY: F, Age 64 y/o , SCREENING FOR BREAST CANCER No family history. TECHNIQUE: SCRN MAMM (CAD)W/BEBA BILAT COMPARISON: Prior exam(s) dated January 03, 2024.. FINDINGS: TISSUE DENSITY: There are scattered areas of fibroglandular density. Bilateral Breast Mammographic Findings: No significant masses, calcifications or other abnormalities are identified. Stable asymmetry were more breast tissue is seen in the right breast as compared to the left side. No suspicious masses, areas of developing architectural distortion, or suspicious calcifications. There has been no significant interval change. BI/SCRN MAMM (CAD)W/BEBA BILAT IMPRESSION: Stable examination. OVERALL FINAL ASSESSMENT BI-RADS 2: BENIGN RECOMMENDATION: Routine annual follow-up in 1 Year A letter with findings and recommendations will be mailed to the patient. Reading Location: [facility] CC: VERENICE Araya; Dr. Bello Davenport MD Pre K Teacher: Signed Normal [facility] CNOVon 01-16-2025 CNOV Office Visit ([facility] ) -- TIFFANIE RAMSEY ([id number]) 1960 F Date Time Provider Department 01/16/25 11:20 AM JANINA MIRANDA GSTMOOKIER During your visit today, we recorded the following information about you: Pulse Blood pressure Weight Height 72/minute 118/80 61.6 kg 1.593 m Janina Miranda PA-C 01/16/2025 11:48 AM Signed CHIEF COMPLAINT: Patient presents with: GERD: Abdominal discomfort HPI: Tiffanie Ramsey is a 64 year old female who presents for GERD (Abdominal discomfort ). She reports that her symptoms began after a COVID-19 infection in 02/2022, with some initial improvement, but worsened significantly following a shingles vaccination earlier this year. Since then, she experiences only about 5 hours of feeling well per day, with a single ?really good day? approximately every 8 weeks. She describes daily heartburn and frequent hiccups triggered by most foods except those high in oil or mayonnaise. She also notes a non-painful, intermittent sensation in the left upper abdomen, sometimes radiating centrally, which is occasionally triggered by movement, such as turning while driving. She denies dysphagia. Her reflux symptoms are most pronounced after meals. She has tried omeprazole in the past but discontinued it due to mild side effects. Recently, she has used Wonderbelly antacid tablets twice in the past week for symptom relief. She reports unintentional weight gain. Her bowel habits consist of approximately 5 bowel movements per week, with occasional episodes of narrow-caliber stools and cramping, particularly during periods of increased stress. She attributes a recent flare of these symptoms to increased stress and dietary changes related to her ?s cardiac surgery and recovery. She has been following a wheat-free diet since last fall, which initially improved her symptoms, but she recently experienced a recurrence of symptoms. She has also been eating black beans daily as part of her ?s diet. She recently started low-dose naltrexone for post-COVID fatigue, but experienced increased abdominal pain when the dose was increased to 2 pills daily. She is now taking a quarter of a pill daily, which has improved her sleep without worsening abdominal pain. She is currently taking extra-strength Tylenol (2 tablets daily) and denies any use of NSAIDs, alcohol, or marijuana. She reports significant stress related to her ?s recent open-heart surgery and pacemaker placement, as well as caring for her mother with Alzheimer?s disease. She is her mother?s primary caregiver, with some assistance from her brother. She has a family history of stomach cancer in her father, who was diagnosed at age 89[address] scan performed last year at [facility] reportedly showed only stool retention, with no other significant findings. Cologuard 07/2024 negative Colonoscopy 2020 normal exam, no specimens Latest Ref Rng 11/30/2024 WBC 3.70 - 11.00 k/uL 6.47 RBC 3.90 - 5.20 m/uL 5.46 (H) Hemoglobin 11.5 - 15.5 g/dL 15.8 (H) Hematocrit 36.0 - 46.0 % 47.8 (H) MCV 80.0 - 100.0 fL 87.5 MCH 26.0 - 34.0 pg 28.9 MCHC 30.5 - 36.0 g/dL 33.1 RDW-CV 11.5 - 15.0 % 14.1 Platelet Count 150 - 400 k/uL 300 MPV 9.0 - 12.7 fL 10.4 Neut% % 66.7 Abs Neut (ANC) 1.45 - 7.50 k/uL 4.31 Lymph% % 21.9 Abs Lymph 1.00 - 4.00 k/uL 1.42 Sargent% % 6.6 Abs Sargent <0.87 k/uL 0.43 Eosin% % 2.8 Abs Eosin <0.46 k/uL 0.18 Baso% % 1.4 Abs Baso <0.11 k/uL 0.09 Immature Gran % % 0.6 IMMATURE GRANS (ABS) <0.10 k/uL 0.04 NRBC /100 WBC 0.0 Absolute nRBC <0.01 k/uL <0.01 DTYPE Auto Protein, Total 6.3 - 8.0 g/dL 8.1 (H) Albumin 3.9 - 4.9 g/dL 5.0 (H) Calcium 8.5 - 10.2 mg/dL 10.6 (H) Bilirubin, Total 0.2 - 1.3 mg/dL 1.0 Alkaline Phosphatase 34 - 123 U/L 64 AST 13 - 35 U/L 31 ALT 7 - 38 U/L 36 Glucose 74 - 99 mg/dL 91 BUN 7 - 21 mg/dL 12 Creatinine 0.58 - 0.96 mg/dL 0.73 Sodium 136 - 144 mmol/L 141 Potassium 3.7 - 5.1 mmol/L 4.1 Chloride 98 - 107 mmol/L 101 CO2 22 - 30 mmol/L 25 Anion Gap 8 - 15 mmol/L 15 eGFR >=60 mL/min/1.73m? 91 TSH 0.270 - 4.200 mIU/L 0.919 Vitamin B12 232 - 1,245 pg/mL 713 Folate >4.7 ng/mL 16.8 Record Review: [facility] / Outside records reviewed. PAST MEDICAL HISTORY Diagnosis Date Chronic sinusitis COVID 02/2022 Recurrent otitis media PAST SURGICAL HISTORY Procedure Laterality Date COLOGUA2024 Negative COLONOSCOPY 01/27/2021 [facility] 10-12 years [facility] Allergies: ALLERGIES Allergen Reactions Ciprofloxacin Other: See Comments Abdominal cramping Doxycycline Other: See Comments Abdominal cramping Abby [Fexofenadi* Intolerance Hyperactivity Claritin [Loratadin* Intolerance Hyperactivity Lipitor [Atorvastat* GI Upset Sulfa (Sulfonamide * Rash Zyrtec [Cetirizine * Intolerance Drowsiness (more content not included)... Normal [facility] ID - History AND Physicalon 01-12-2025 ID - History & Physical [facility] Pulmonary Rehab Reports [address] [place] [address] ID - History Physical MR#: [id number] Acct: [id number] Name: TIFFANIE RAMSEY Rep #: [id number] : 1960 64 From: Renzo Marquez BS, RVT PCP: Dr. Bello Davenport MD History of Present Illness General Arrival date:: 01/12/25 Arrival time:: 10:35 Date of Referral:: 12/29/24 Date of Evaluation: 01/12/25 Referring Physician: Dr. 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 Y/N Grade: Description of Breathlessness: y 0 I only get breathless with strenuous exercise. n 1 I get short of breath when hurrying on level ground or walking up a slight hill. n 2 On level ground, I walk slower than people of the same age because of breathless, or have to stop for breath when walking at my own pace. n 3 I stop for breath after walking 100 yards or after a few minutes on level ground. n 4 I am too breathless to leave the house or I am breathless when dressing. Respiratory Problems: Yes Fatigue, Dizziness, Hoarseness, Anxiety and Dyspnea with Activity; No Retain Secretions, Limited Range of Motion, Chest Pain, Wheezing, Able to Speak in Full Sentences, Ankle Swelling, Panic, Dyspnea at Rest, Dyspnea Lying Down Flat or Cough with Secretions Medications Home Medications fluticasone propionate 50 mcg/actuation nasal spray,suspension (Flonase Allergy Relief) 1 spray intranasal QDAY 08/31/24 acetaminophen 650 mg tablet,extended release (Tylenol Arthritis Pain) 650 mg PO Q8H 12/26/24 estradiol 0.01% (0.1 mg/gram) vaginal cream See Rx Instructions vaginal .COMPLEX #42.5 grams 12/26/24 Allergies Allergies Sulfa (Sulfonamide Antibiotics) (sulfa drugs) Allergy (Verified 12/26/24 09:19) Overheats and gets very tired ciprofloxacin (From Cipro) Adverse Reaction (Mild, Verified 12/26/24 09:19) Other Abdominal pain Sleep Disorder Evaluation Hx of Sleep Apnea: No Do you snore loudly (louder than talking or can be heard through closed doors)?: No Do you often feel tired/ fatigued/ sleepy during daytime?: Yes Has anyone observed you stop breathing during sleep?: No History of Hypertension (for STOP score): No STOP Results: Negative Medical Utilization Medical Devices Do you use a peak flow meter at home?: No Do you use a spacer device with your inhalers?: Yes Medical Utilization Number of hospital visits in the last year?: 0 Number of emergency room visits in the last year?: 0 Do you see your physician on a regular schedule?: Yes How often?: every 3 to 6 months Advanced Directives Advanced Directives Do you have a Healthcare Power of Roll Forming Machine Set Up Operator?: Yes Living Will: Yes Advance Directives Information Provided: Yes Advance Directives on File: No DNR Order?:: No Past Medical History Covid-19 Screening Physicial Symptoms Other Clinical Concerns Exposure Risk Pertinent Comorbidities 65 years or older:: Yes Has a chronic lung disease or moderate to severe asthma:: Yes Medical History Past Medical History (Updated 12/26/24 @ 09:59 by Lise rAaya NP, CEMENT KILN OPERATOR-C) Long COVID U09.9 Left shoulder pain M25.512 Surgical History Past Surgical History Hx of cataract extraction Z98.49 History of ear surgery Z98.890 has patch, hx of perforated eardrum Significant Family History Family History (Updated 12/26/24 @ 09:13 by Hortencia Muñoz) Father Cancer Stomach Mother Cancer Melanoma Social History Smoking History Smoking Status: Never smoker Alcohol Use Alcohol Usage: No Substance Abuse Hx Substance Use: No Occupation Occupation (List type of work in comments):: Retired Functioning ADL/IADL Current Ability Current Ability: Independent: Self-Care (e.g.,grooming, dressing, bathing), Independent: Ambulation, Independent: Transfer and Independent: Household tasks (e.g., light meal prep, laundry, shopping) Pt Functioning Prior to Problem Prior Functioning: Self-Care (e.g.,grooming, dressing, bathing): Independent, Ambulation: Independent, Transfer: Independent and Household tasks (e.g., light meal prep, laundry, shopping): Independent Social Environment Status Marital Status: Current Living Arrangements Living Environment:: Spouse Safety Do you feel safe in your surroundings?: Yes Assistance Do you need any assistance at home?: no Review of Systems Review of Systems Review of Systems Respiratory: Reports Cough, SOB upon Exertion, Dizziness/Lightheadedness and Fatigue; Denies Hemoptysis, Pleuritic Pain, SOB at Rest, Sputum production, Wheezing, Appetite, Normal, PVD, Sexual changes or Sleep, Normal Pain Is Patient Pain Free?: Yes Risk Factor Assessment Chief Complaint Chief Complai (more content not included)... Normal [facility] ID - Individual Treatment Pl anon 01-12-2025 ID - Individual Treatment Plan [facility] Pulmonary Rehab Reports [address] [place] [address] ID - Individual Treatment Plan MR#: [id number] Acct: [id number] Name: TIFFANIE RAMSEY Rep #: [id number] : 1960 64 From: Renzo Marquez BS, RVT PCP: Dr. 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 Secondary Diagnosis: dyspnea PFT FEV1:: 118 FVC:: 109 FEV1/FVC%:: 108 Personal Learning Style/Barriers Personal Learning Style:: Audio/Visual Barriers to Learning: None Education/Goals ID Patient Goals: Increase muscle strength: Initial Assessment, Experience less dyspnea: Initial Assessment, Improve energy level: Initial Assessment, Participate in home exercise: Initial Assessment, Improve the ability to cope with ADLs: Initial Assessment, Control panic/anxiety: Initial Assessment, Improve diet and nutrition: Initial Assessment, Improve my quality of life: Initial Assessment and Reduce Stress/relaxation techniques: Initial Assessment Exercise - Initial Assessment Visit Date of Eval: 01/12/25 (initial eval ) Problem/Goals Problems: Deconditioning Functional Capacity Test Number of feet walked: 1,285 (6MWT at 2.4 MPH) Lowest SPO2 %: 94 (room air) Physician Prescribed Exercise Modalities: Treadmill, Rower, Schwinn Airdyne AD-7, SciFit Stepper, [employer] NortheastFit Pro-II Ergometer and [employer] NortheastFit Lateral Board Member Frequency (days/week): 3 Duration (Minutes):: 30-45 Intensity: 60-80% of age predicted maximum heart rate reserve Current METSs:: 2 Target HR:: 116 (92-116) Resting Blood Pressure: 126/79 Plan Plan and Plan to Review:: Benefits of exercise, Core components of exercise, How to measure dyspnea level, How to monitor dyspnea level, Exercise intensity, Exercise safety guideline, Home exercise guidelines and Jean Marie: 3-4/11-13 Home Exercise Mode: Walking Nutrition/Wt Mgmt - Initial Visit Date of Eval: 01/12/25 (initial eval ) Weight Management Admit Height:: 5 ft 2 in Admit Weight:: 136 lb Admit BMI:: 24.8 Total Score:: 1 (nutrition survey) Intervention Referral to dietitian:: No Will attend diet classes:: Yes Intervention/Plan: Instruct on ideal BMI set weight loss goal w/patient, Assist pt to ID incorporate diet changes for weight loss by S9, Refer to Structured Weight Loss program as appropriate, Encourage goal of using 250-300dcal per session for weight loss and Other additional plan/interventions Plan Nutrition Plan: Yes: Review BMI or WC identify target wt strategies for wt control, Yes: Nutrition education class:, Yes: Medication education class [Prednisone]:, Yes: Weight control education class:, Yes: Education re: Need for ongoing weight monitoring, Yes: Food diary: and Yes: Physical activity log: Nutrition/Wt Mgmt - 30-Day Weight Management Height: 5 ft 2 in Weight:: 136 lb BMI: 24.8 Nutrition/Wt Mgmt - 60-Day Weight Management Height: 5 ft 2 in Weight:: 136 lb BMI: 24.8 Nutrition/Wt Mgmt - 90-Day Weight Management Height: 5 ft 2 in Weight:: 136 lb BMI: 24.8 Nutrition/Wt Mgmt - Final Weight Management Height: 5 ft 2 in Weight:: 136 lb BMI: 24.8 Psychosocial - Initial Assess Visit Date of Eval: 01/12/25 (initial eval ) Problems/Goals History of Emotional Disorders: Anxious (Due to recent health issues. Pt does not have a diagnosis of anxiety.) Psychosocial Goals: 1. Patient is free from overwhelming symtoms of depression (or anxiety, 2. Identifies personal stressors states the strategies for managing, 3. Identifies activities to decrease isolation and/or symptoms of, 4. Improved psychosocial coping skills., 5. Verbalizes coping strategies., 6. Adequate treatment of depression. and 7. Improved Q.O.L. Self-reported stressors: Recent Illness Psychosocial Test Tool Used:: PHQ-9 Questionnaire PHQ-9 Score: 3 Referral to Behavioral Health PS - Interventions: Yes: Attend Stress Management Classes Intervention/Plan: See List Interventions/Plan:: Assess stressors,coping strategies signs of derpression on admission, Instruct/assist pt to develop coping personal stress Mgt strategies, Refer to Behavioral Health if appropriate, Refer to Physician if appropriate, Instruct patient to recognize signs symptoms of depression and Instruct patient to recog Psychosocial - 30-Day Problems/Goals History of Emotional Disorders: Anxious (Due to recent health issues. Pt does not have a diagnosis of anxiety.) Psychosocial Goals: 1. Patient is free from overwhelming symtoms of depression (or anxiety, 2. Identifies personal stressors states the strategies for managing, 3. Identifies activities to decrease isolation and/or symptoms of, 4. Improved psychosocial coping skills., 5. Verbalizes coping strategies., 6. Adequate treatment of depression. and 7. Improved Q.O.L. Self-reported stressors: Recent Illness Psychosocial Test Tool Used:: (more content not included)... Normal [facility] 01-10-2025 [facility] Telephone (GERIWR) -- TIFFANIE RAMSEY ([id number]) 1960 F Date Time Provider Department 01/10/25 ANNA TABOR During your visit today, we recorded the following information about you: Yu Mccormack RN 01/10/2025 12:06 PM Signed Faxed polysomnogram order to Dr. Gibson per pt request. . Pt reports she has an appt with him on 01/22/25. Allergies As of Date: 01/10/2025 Noted Allergy Reaction ABBY (FEXOFENADINE HCL) 06/24/2005 5 - Intolerance Comments: Hyperactivity CLARITIN (LORATADINE) 06/24/2005 5 - Intolerance Comments: Hyperactivity LIPITOR (ATORVASTATIN) 07/22/2023 8 - GI Upset SULFA (SULFONAMIDE ANTIBIOTICS) 09/12/2004 2 - Rash ZYRTEC (CETIRIZINE HCL) 06/24/2005 5 - Intolerance Comments: Drowsiness Date Reviewed: 12/29/2024 Reviewed by: Ashley Lynn MD - Fully Assessed Reason for Visit: Faxed to Dr. Gibson [Other] Prescriptions as of 01/10/2025 - albuterol HFA (PROVENTIL HFA, VENTOLIN HFA) 90 mcg/actuation inhaler Inhale 2 puffs as instructed every 6 hours as needed for wheezing/shortness of breath. - naltrexone (NALTREX) 1.5 mg cap Take 1 tablet (1.5 mg) per day for 3 days, then 2 tablets (3 mg) per day for 3 days, then 3 tablets (4.5 mg) per day until completing bottle. - fluticasone (FLONASE) 50 mcg/actuation nasal spray Use 2 Sprays in each nostril once daily. Problem List As Of Date 01/10/2025 Noted Resolved CENT PERF TYMPANIC MEMB [H72.00] 11/10/2004 Impacted cerumen [H61.20] 12/06/2006 07/13/2023 OTALGIA NOS [H92.09] 12/06/2006 Plantar fasciitis [M72.2] 09/13/2013 Pain in limb [M79.609] 09/13/2013 Vitamin D deficiency [E55.9] 07/13/2023 Diagnosed: 07/13/2023 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 [N89.8] 07/13/2023 Diagnosed: 07/13/2023 Urinary tract infection [N39.0] 07/13/2023 Diagnosed: 07/13/2023 Urge incontinence of urine [N39.41] 07/13/2023 Diagnosed: 07/13/2023 Tendinitis of left rotator cuff [M75.82] 07/13/2023 Diagnosed: 07/13/2023 Menopausal symptom [N95.1] 07/13/2023 Diagnosed: 07/13/2023 Seborrheic dermatitis [L21.9] 07/13/2023 Diagnosed: 07/13/2023 Non-toxic multinodular goiter [E04.2] 07/13/2023 Diagnosed: 07/13/2023 Insomnia [G47.00] 07/13/2023 Diagnosed: 07/13/2023 Impingement syndrome of shoulder region [M75.40]07/13/2023 Diagnosed: 07/13/2023 Hyperlipidemia [E78.5] 07/13/2023 Diagnosed: 07/13/2023 Greater trochanteric bursitis [M70.60] 07/13/2023 Diagnosed: 07/13/2023 Gastroesophageal reflux disease [K21.9] 07/13/2023 Diagnosed: 07/13/2023 Family history of malignant neoplasm of gastroi*07/26/2012 Diagnosed: 07/13/2023 Dysphagia [R13.10] 07/13/2023 Diagnosed: 07/13/2023 Irritable bowel syndrome with constipation [K58*07/13/2023 Diagnosed: 07/13/2023 Cobalamin deficiency [E53.8] 07/13/2023 Diagnosed: 07/13/2023 Benign paroxysmal positional vertigo [H81.10] 07/13/2023 Diagnosed: 07/13/2023 Allergic rhinitis [J30.9] 07/13/2023 Diagnosed: 07/13/2023 Hearing loss [H91.90] 07/13/2023 Diagnosed: 07/13/2023 Pain in left hip [M25.552] 10/01/2023 DDD (degenerative disc disease), lumbar [M51.36*10/01/2023 Encounter Status:Closed by Yu MCCORMACK on 01/10/25 [facility] Joe 01-01-2025 GIANNA[facility] Telephone (PULMAV) -- TIFFANIE RAMSEY ([id number]) 1960 F Date Time Provider Department 01/01/25 ASHLEY LYNN PULGALEN During your visit today, we recorded the following information about you: Macho Baeza LPN 01/01/2025 1:19 PM Signed Patient calling. At [facility] trying to get scheduled for Pulmonary Rehab. They are asking for documentation for Shortness of Breath. Please fax order whatever testing (had breathing tests done on 12/21) showed this to [facility] at [phone]. PFT results from 12/21 faxed to [facility] via [facility] Shu Kelley 01/03/2025 10:27 AM Addendum Patient is calling back in today, [facility] needs the office notes that document the discussion of shortness of breath. Please fax over to: [phone]. Patient cannot start her rehab until [facility] has this documentation. It's required by the insurance company. Esther Cummings 01/03/2025 10:44 AM Signed Patient calling back to let office know that [facility] does not use epic and OV notes must be faxed. Cortes Martell LPN 01/03/2025 11:39 AM Signed Faxed all necessary paperwork to [facility] w/ confirmation. Called and passed along to Pt, pt verbalized appreciation. Allergies As of Date: 01/01/2025 Noted Allergy Reaction ABBY (FEXOFENADINE HCL) 06/24/2005 5 - Intolerance Comments: Hyperactivity CLARITIN (LORATADINE) 06/24/2005 5 - Intolerance Comments: Hyperactivity LIPITOR (ATORVASTATIN) 07/22/2023 8 - GI Upset SULFA (SULFONAMIDE ANTIBIOTICS) 09/12/2004 2 - Rash ZYRTEC (CETIRIZINE HCL) 06/24/2005 5 - Intolerance Comments: Drowsiness Date Reviewed: 12/29/2024 Reviewed by: Ashley Lynn MD - Fully Assessed Prescriptions as of 01/03/2025 - albuterol HFA (PROVENTIL HFA, VENTOLIN HFA) 90 mcg/actuation inhaler Inhale 2 puffs as instructed every 6 hours as needed for wheezing/shortness of breath. - naltrexone (NALTREX) 1.5 mg cap Take 1 tablet (1.5 mg) per day for 3 days, then 2 tablets (3 mg) per day for 3 days, then 3 tablets (4.5 mg) per day until completing bottle. - fluticasone (FLONASE) 50 mcg/actuation nasal spray Use 2 Sprays in each nostril once daily. Problem List As Of Date 01/01/2025 Noted Resolved CENT PERF TYMPANIC MEMB [H72.00] 11/10/2004 Impacted cerumen [H61.20] 12/06/2006 07/13/2023 OTALGIA NOS [H92.09] 12/06/2006 Plantar fasciitis [M72.2] 09/13/2013 Pain in limb [M79.609] 09/13/2013 Vitamin D deficiency [E55.9] 07/13/2023 Diagnosed: 07/13/2023 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 [N89.8] 07/13/2023 Diagnosed: 07/13/2023 Urinary tract infection [N39.0] 07/13/2023 Diagnosed: 07/13/2023 Urge incontinence of urine [N39.41] 07/13/2023 Diagnosed: 07/13/2023 Tendinitis of left rotator cuff [M75.82] 07/13/2023 Diagnosed: 07/13/2023 Menopausal symptom [N95.1] 07/13/2023 Diagnosed: 07/13/2023 Seborrheic dermatitis [L21.9] 07/13/2023 Diagnosed: 07/13/2023 Non-toxic multinodular goiter [E04.2] 07/13/2023 Diagnosed: 07/13/2023 Insomnia [G47.00] 07/13/2023 Diagnosed: 07/13/2023 Impingement syndrome of shoulder region [M75.40]07/13/2023 Diagnosed: 07/13/2023 Hyperlipidemia [E78.5] 07/13/2023 Diagnosed: 07/13/2023 Greater trochanteric bursitis [M70.60] 07/13/2023 Diagnosed: 07/13/2023 Gastroesophageal reflux disease [K21.9] 07/13/2023 Diagnosed: 07/13/2023 Family history of malignant neoplasm of gastroi*07/26/2012 Diagnosed: 07/13/2023 Dysphagia [R13.10] 07/13/2023 Diagnosed: 07/13/2023 Irritable bowel syndrome with constipation [K58*07/13/2023 Diagnosed: 07/13/2023 Cobalamin deficiency [E53.8] 07/13/2023 Diagnosed: 07/13/2023 Benign paroxysmal positional vertigo [H81.10] 07/13/2023 Diagnosed: 07/13/2023 Allergic rhinitis [J30.9] 07/13/2023 Diagnosed: 07/13/2023 Hearing loss [H91.90] 07/13/2023 Diagnosed: 07/13/2023 Pain in left hip [M25.552] 10/01/2023 DDD (degenerative disc disease), lumbar [M51.36*10/01/2023 Letter Text Encounter Status:Closed by MACHO BAEZA on 01/01/25 [facility] CNOVon 12-29-2024 CNOV Office Visit (PULMAV ) -- TIFFANIE RAMSEY ([id number]) 1960 F Date Time Provider Department 12/29/24 9:45 AM ASHLEY LYNN PULMAV During your visit today, we recorded the following information about you: Pulse Blood pressure Weight 71/minute 126/79 62 kg Ashley Lynn MD 12/29/2024 12:16 PM Signed Consultation requested by Dr. Vieira for an opinion regarding dyspnea and PASC 19 My final recommendations will be communicated back to the requesting physician by way of shared Medical record or letter to requesting physician via US mail. Tiffanie Ramsey is a 64 year old female who presents with complaint OF DYSPNEA and PASC 19 Recording using [employer] software for draft documentation of the visit was discussed with the patient/authorized accounts receivable representative; all questions welcomed and answered. Patient/authorized accounts receivable representative agreed to proceed HPI: Tiffanie Ramsey is a 64-year-old female, with a history of COVID-19 infection in February 2022, presenting with post-COVID concerns, including dyspnea, fatigue, and insomnia. Tiffanie reports significant changes in her health status following a COVID-19 infection in February 2022. Prior to the infection, she describes herself as very active, often referred to as the Energizer Nikos. However, since the infection, she has experienced persistent dyspnea, fatigue, and insomnia. She initially reviewed after the infection, but received COVID 19 booster in fall when bulk of her current symptoms started Tiffanie notes that she becomes winded after climbing 13 steps in her home, a task she previously performed multiple times a day without difficulty. She also reports that attempting to walk at her previous brisk pace nearly did her in. She describes a pattern of energy depletion, stating that by [id number] each day, she feels as though her battery runs out of charge, necessitating rest. This fatigue has been present since her COVID-19 infection and has persisted for nearly two years. Tiffanie also reports significant sleep disturbances, with difficulty both falling and staying asleep. She estimates that she sleeps 5-6 hours per night, but not consecutively, often waking up multiple times. She has tried melatonin, which allowed her to sleep for 5 hours but then caused her to wake up abruptly. She denies a history of sleep apnea and has not been tested for it. She describes her current sleep issues as torture and notes that they have been ongoing for a long time, but have worsened since her COVID-19 infection. She also reports feeling nauseous in the morning, which she attributes to her lack of sleep. Tiffanie also reports a dry cough that occurs every time she lies down or turns over at night. She denies any history of asthma or family history of chronic lung conditions. She has a history of chronic sinusitis and has been using a portable nebulizer with sterile saline once a week to manage her symptoms. She also uses Flonase daily. She denies any history of smoking, vaping, or tobacco use. Tiffanie has a history of tympanoplasty in right ear. Follows with ENT. She was prescribed naltrexone, which she hasn't started. Tiffanie is retired but describes herself as very busy, taking care of her , who is recovering from a massive open-heart operation and pacemaker insertion in February 2023. She also takes care of her 92-year-old mother, who has pre-Alzheimer's. She has no children of her own, but her has three grown children, one of whom has Sjogren's disease and lupus. She has a small dog at home. REVIEW OF SYSTEMS GENERAL: No unintentional weight loss, + extreme fatigue Fatigue HEENT: Negative for frequent or significant headaches, No changes in hearing or vision, no nose bleeds or other nasal problems RESPIRATORY: Negative for cough, wheezing + exertional shortness of breath. CARDIOVASCULAR: Negative for chest pain, leg swelling or palpitations. GASTROINTESTINAL: No nausea, vomiting, or diarrhea. No heartburn or reflux symptoms MUSCULOSKELETAL: Negative for joint pain or swelling NEUROLOGIC: Negative for focal numbness or weakness + brain fog All other systems were reviewed and Negative PAST MEDICAL HISTORY Diagnosis Date COVID : FAMILY HISTORY Problem Relation Age of Onset Hypothyroidism Mother Hyperlipidemia Mother GERD Mother Alzheimer's Disease Mother Pre stage-92, 11/2024 other (stomach cancer) Father stomach Hypertension Father Hypertension Brother Hyperlipidemia Brother : Social History Tobacco Use Smoking status: Never Passive exposure: Past Smokeless tobacco: Never Substance Use Topics Alcohol use: Yes Comment: rare Drug use: Never Allergies: ALLERGIES Allergen Reactions Abby [Fexofenadi* Intolerance Hyperactivity Claritin [Loratadin* Intolerance Hyperactivity Lipito (more content not included)... Normal [facility] CNOVon 12-28-2024 CNOV Office Visit (GERIWR ) -- TIFFANIE RAMSEY ([id number]) 1960 F Date Time Provider Department 12/28/24 10:30 AM ANNA TABOR During your visit today, we recorded the following information about you: Pulse Respiration Blood pressure Weight 82/minute 16/minute 124/85 61.6 kg Anna Tabor MD 12/28/2024 2:59 PM Signed [facility] Initial Consult Tiffanie Ramsey is a 64 year old year old female who comes for Comprehensive Geriatric Assessment. Pt accompanied by: Caregivers involved in care: HPI: Tiffanie Ramsey is a 64-year-old female presenting with concerns of brain fog, fatigue, and insomnia, which she attributes to long COVID. Tiffanie reports experiencing brain fog, fatigue, and insomnia for approximately one year, which she believes are sequelae of long COVID. She contracted COVID-19 in 2022, and after an initial period of improvement, her symptoms worsened around January of the same year. She describes the brain fog as intermittent, with some days being worse than others, and notes episodes of disorientation while driving. She also reports significant fatigue, stating that she can no longer maintain her previous activity levels and feels exhausted by mid-afternoon. She has reduced the intensity of her walks and bike rides due to this fatigue. Tiffanie also reports difficulty sleeping, describing her mind as racing with thoughts when she tries to sleep. She denies feeling rested upon waking and sometimes feels the need to nap during the day. She denies knowledge of snoring or restless leg movements during sleep. She has not been tested for sleep apnea. She denies feelings of sadness, depression, or crying, but notes anxiety related to her insomnia. Tiffanie also reports a history of alopecia, which she attributes to long COVID. She has a family history of dementia, with her mother reportedly having pre-Alzheimer's disease. She denies smoking or alcohol use and limits her caffeine intake to two cups per day. She also reports frequent urination and a history of stress incontinence, for which she previously took Myrbetriq but discontinued due to potential side effects. Any Family History of dementia? Mother may have some dementia, still living appears to be amnestic dementia Are you or your spouse a ? yes Alzheimer Questionnaire Long-term Memory: Difficulty remembering distant events from the past like childhood, previous employment, wedding: YES Behavioral/personality: Withdrawn/Depressed: NO Crying spells: NO Anxious: yes History of aggression: NO History of irritability: NO Apathy:NO Recent changes in weight or appetite: NO Alcohol or Drug use: NO Smoking? NO Sleep: Do you snore loudly (louder than talking or loud enough to be heard through closed doors)? NO Do you often feel tired, fatigued, or sleepy during daytime? Yes some days Has anyone observed you stop breathing during your sleep? NO Are you restless when you sleep at night? NO Do you have problems falling a sleep? YES Do you have problems staying a sleep? YES Psychosis: Hallucinations or delusions: NO Suicidal or homicidal ideations: NO Obsessions, compulsions, or hoarding: NO Social History: Primary language: Japanese Marital Status: Living situation: Home w/ Spouse Socially engaged? (participates in activities such as clubs, evangelical, community center, sports, games, visiting friends/relatives, etc?): YES Caregiver Bowlus and Stress Are your feeling overwhelmed? YES Do you have concerns about your own health? NO Are you neglecting your own needs? NO Do you have financial concerns? NO Do your fear loss of employment? NO Do you have concerns about verbal/physical abuse? NO Do you feel that you are still capable of taking care of your relative? NO Are you willing to continue being in the caregiver role? NO B-ADLs: (I=independent,A=assistanc e,D=dependent) ?Bathing: I, Dressing: I, Toileting: I, Transferring:I, Continence: I, Feeding: I, I-ADLs: Ability to use phone: I, Shopping: I, Cooking: I, Housekeeping: I, Laundry: I, Transportation:I, Medications: {I, Handle Finances: I. PMHx: PAST MEDICAL HISTORY Diagnosis Date COVID PSHx: PAST SURGICAL HISTORY Procedure Laterality Date EAR SURGERY HX Right Home Meds: Prior to Admission medications : Medication fluticasone (FLONASE) 50 mcg/actuation nasal spray, Sig Use 2 Sprays in each nostril once daily., Start Date 09/12/20, End Date , Taking? Yes, Authorizing Provider Alli Hutchinson MD, PhD Medication naltrexone (NALTREX) 1.5 mg cap, Sig Take 1 tablet (1.5 mg) per day for 3 days, then 2 tablets (3 mg) per day for 3 days, then 3 tablets (4.5 mg) per day until completing bottle. Patient not taking: Reported on 12/28/2024, S (more content not included)... 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) Chief Complaint: Annual Animal Attendants And Trainers Required: No Is patient in pain?: No Allergies Sulfa (Sulfonamide Antibiotics) (sulfa drugs) Allergy (Verified 12/26/24 09:19) Overheats and gets very tired ciprofloxacin (From Cipro) Adverse Reaction (Mild, Verified 12/26/24 09:19) Other Medications ???Medication ???Instructions ???Recorded ???Confirmed ???Type fluticasone propionate 50 1 spray intranasal QDAY 08/31/24 0 12/26/24 History mcg/actuation nasal spray,suspension (Flonase Allergy Relief) acetaminophen 650 mg 650 mg PO Q8H 12/26/24 12/26/24 Hi story tablet,extended release (Tylenol Arthritis Pain) estradiol 0.01% (0.1 mg/gram) See Rx Instructions vaginal 12/26/24 Rx vaginal cream .COMPLEX #42.5 grams Is last menstrual period known: No Post menopausal: Yes Patient : No : No PFSH Medical History (Updated 12/26/24 @ 09:59 by Lise Araya NP, CEMENT KILN OPERATOR-C) Long COVID Left shoulder pain Surgical History Hx of cataract extraction History of ear surgery Family History (Updated 12/26/24 @ 09:13 by Hortencia Muñoz) Father Cancer Stomach Mother Cancer Melanoma Social History (Updated 12/26/24 @ 09:14 by Hortencia Muñoz) household members: spouse Smoking Status: Never smoker alcohol intake: former substance use type: does not use seatbelt use: always do you feel safe at home: Yes additional social history: - Jorge History 0 Elective abortions Hx Para Spontaneous abortions Hx # Term Pregnancies Ectopic pregnancies Hx # Pregnancies Multiple births # of living children HPI Encounter for routine gynecological examination Details: TIFFANIE RAMSEY is a 64 year old who presents for new patient annual exam. 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 Last PAP: 2020 -scanned to chart History of abnormal PAP: no Last mammogram: 12/2023 History of abnormal mammogram: no Colon cancer screenin Other preventative health care screenings: [place] Female Reproductive History Questions: metorrhagia: No, sexually active: Yes, dyspareunia: No and PCB: No ROS Const Constitutional: Denies fatigue, weight gain or weight loss Cardio Card: Denies chest pain Resp Resp: Denies cough or dyspnea on exertion GI GI: Denies abdominal pain, bloating, change in stool character, constipation or vomiting : Reports as per HPI; Denies difficulty voiding, pelvic pain, urinary frequency, urinary incontinence, urinary urgency, vaginal discharge or vaginal pruritus Exam Const General: cooperative, healthy appearing, no acute distress and well developed Orientation: alert, oriented to person and oriented to place [facility] Head: normal to inspection Neck Neck: normal visual inspection Thyroid: thyroid normal Lymphatic: no lymphadenopathy noted Chest Breast inspection: normal inspection of the breasts and normal inspection of the axillae Breast palpation: normal palpation of the breasts, normal palpation of the axillae and no axillary lymphadenopathy Resp Effort Inspection: normal respiratory effort GI Palpation: soft, no masses and nontender Rectal Exam: deferred External Female Exam: normal external appearance and normal appearance of the urethra Urethra: normal appearance of the urethra and normal palpation Speculum Exam - Vagina: normal vaginal discharge and vagina atrophic Bimanual Exam- Vagina Uterus: normal bimanual exam, uterine size normal, uterine shape normal and non-tender Bimanual Exam- Adnexa, other: normal adnexae, no masses, normal and non-tender Pelvic Support: normal Neuro General: patient alert and patient oriented x3 Psych Affect: normal affect Coding Level of Care Code Pelvic/Breast Diagnoses Encounter for gynecological examination with abnormal finding Z01.411 Gynecological examination findings: abnormal findings PRESENT Atrophic vaginitis N95.2 Assessment and Plan Assessment and Plan (1) Encounter for routine gynecological examination: Qualifiers: Gynecological examination findings: abnormal findings PRESENT Qualified Code(s): Z01.411 - Encounter for gynecological examination (general) (routine) with ab (more content not included)... 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 No contraindications or sensitivities were noted. Meds taken: No inhaled respiratory medications taken before testing. 2 puffs Albuterol (180 mcg) delivered by MDI via holding chamber. HR pre = 100/min, HR post = 103/min. Current ATS/ERS acceptability and repeatability standards for spirometry met. Start of test and EOFE criteria met. Current ATS/ERS acceptability and repeatability standards for DLCO met with 2 acceptable maneuvers. Lung Volumes are repeatable x3. IMPRESSION: Spirometry is normal. There is no significant bronchodilator response. The TLC, RV and RV/TLC are normal. The kCO (DLCO/VA) reflects a normal transfer/diffusion of CO from the alveolar regions to the blood. Clinical correlation recommended. Electronically Signed On 12-22-2024 10:23:05 EDT by Piero Gonzalez MD ID: [id number] Name: TIFFANIE RAMSEY Race: White Ht: 62.72 in Wt: 133.00 lbs Age: 64 Gender: Female : 1960 Dx: Shortness of breath Smoking Hx: Non-smoker Doctor: TAQUERIA VIEIRA Test Date: 12/21/2024 Site: Tech: Gail Pang PRE-BRONCH POST-BRONCH Bianca LLN Pred ULN %Pred ZScore Bianca %Pred %Chg ZScore SPIROMETRY FVC 3.34 1.92 2.68 3.47 124 1.38 3.10 115 -8 0.88 FEV1 2.56 1.49 2.12 2.71 121 1.24 2.41 113 -7 0.80 FEV1/FVC 0.77 0.67 0.79 0.90 96 -0.40 0.78 97 1 -0.27 FEFMax 4.91 4.05 5.70 7.34 86 -0.79 4.62 81 -5 -1.07 FEF50 2.76 1.47 3.08 4.69 89 -0.33 3.21 104 16 0.14 FIF50 3.33 2.51 -24 FEF50/FIF50 0.83 90-100 1.28 54 FIVC 3.05 2.94 -3 OIV04-37 2.35 0.93 1.94 3.35 120 0.53 1.36 69 -42 -0.87 ExpiredTime 8.97 9.72 8 TimeToFEFMax 0.13 0.14 7 SHAHZAD 0.09 0.07 -18 VolExtrap% 3 2 -11 LUNG VOLUMES FRC(Pleth) 2.17 1.86 2.61 3.56 83 -0.92 ERV 0.51 0.89 57 RV(Pleth) 1.66 1.08 1.79 2.70 92 -0.27 SVC 3.08 1.92 2.68 3.47 114 0.84 IC 2.50 1.79 139 TLC(Pleth) 4.67 3.84 4.81 5.89 97 -0.22 RV/TLC(Pleth) 35 25 37 49 96 -0.19 LUNG DIFFUSION DLCOunc 17.16 14.11 18.62 24.15 92 -0.50 DLCOStdPB 16.88 14.11 18.62 24.15 90 -0.59 VA 4.38 3.54 4.40 5.36 99 -0.05 Kco 3.85 3.24 4.22 5.34 91 -0.59 Comments: Medications and Allergies were reviewed for possible drug interactions per policy. No contraindications or sensitivities were noted. Meds taken: No inhaled respiratory medications taken before testing. 2 puffs Albuterol (180 mcg) delivered by MDI via holding chamber. HR pre = 100/min, HR post = 103/min. Current ATS/ERS acceptability and repeatability standards for spirometry met. Start of test and EOFE criteria met. Current ATS/ERS acceptability and repeatability standards for DLCO met with 2 acceptable maneuvers. Lung Volumes are repeatable x3. Normal [facility] LUNG VOLUMESon 12-21-2024 LUNG VOLUMES [facility] [address] [place] [address] Test Date: 2024-12-21 Pat Name: TIFFANIE RAMSEY Department: Room: Gender: Female [employer]: : 1960 Requested By: Order Number: [id number] Reading MD: Piero Gonzalez MD Interpretive Statements Medications and Allergies were reviewed for possible drug interactions per policy. No contraindications or sensitivities were noted. Meds taken: No inhaled respiratory medications taken before testing. 2 puffs Albuterol (180 mcg) delivered by MDI via holding chamber. HR pre = 100/min, HR post = 103/min. Current ATS/ERS acceptability and repeatability standards for spirometry met. Start of test and EOFE criteria met. Current ATS/ERS acceptability and repeatability standards for DLCO met with 2 acceptable maneuvers. Lung Volumes are repeatable x3. IMPRESSION: Spirometry is normal. There is no significant bronchodilator response. The TLC, RV and RV/TLC are normal. The kCO (DLCO/VA) reflects a normal transfer/diffusion of CO from the alveolar regions to the blood. Clinical correlation recommended. Electronically Signed On 12-22-2024 10:23:05 EDT by Piero Gonzalez MD ID: [id number] Name: TIFFANIE RMASEY Race: White Ht: 62.72 in Wt: 133.00 lbs Age: 64 Gender: Female : 1960 Dx: Shortness of breath Smoking Hx: Non-smoker Doctor: TAQUERIA VIEIRA Test Date: 12/21/2024 Site: Tech: Gail Pang PRE-BRONCH POST-BRONCH Bianca LLN Pred ULN %Pred ZScore Bianca %Pred %Chg ZScore SPIROMETRY FVC 3.34 1.92 2.68 3.47 124 1.38 3.10 115 -8 0.88 FEV1 2.56 1.49 2.12 2.71 121 1.24 2.41 113 -7 0.80 FEV1/FVC 0.77 0.67 0.79 0.90 96 -0.40 0.78 97 1 -0.27 FEFMax 4.91 4.05 5.70 7.34 86 -0.79 4.62 81 -5 -1.07 FEF50 2.76 1.47 3.08 4.69 89 -0.33 3.21 104 16 0.14 FIF50 3.33 2.51 -24 FEF50/FIF50 0.83 90-100 1.28 54 FIVC 3.05 2.94 -3 UVV46-07 2.35 0.93 1.94 3.35 120 0.53 1.36 69 -42 -0.87 ExpiredTime 8.97 9.72 8 TimeToFEFMax 0.13 0.14 7 SHAHZAD 0.09 0.07 -18 VolExtrap% 3 2 -11 LUNG VOLUMES FRC(Pleth) 2.17 1.86 2.61 3.56 83 -0.92 ERV 0.51 0.89 57 RV(Pleth) 1.66 1.08 1.79 2.70 92 -0.27 SVC 3.08 1.92 2.68 3.47 114 0.84 IC 2.50 1.79 139 TLC(Pleth) 4.67 3.84 4.81 5.89 97 -0.22 RV/TLC(Pleth) 35 25 37 49 96 -0.19 LUNG DIFFUSION DLCOunc 17.16 14.11 18.62 24.15 92 -0.50 DLCOStdPB 16.88 14.11 18.62 24.15 90 -0.59 VA 4.38 3.54 4.40 5.36 99 -0.05 Kco 3.85 3.24 4.22 5.34 91 -0.59 Comments: Medications and Allergies were reviewed for possible drug interactions per policy. No contraindications or sensitivities were noted. Meds taken: No inhaled respiratory medications taken before testing. 2 puffs Albuterol (180 mcg) delivered by MDI via holding chamber. HR pre = 100/min, HR post = 103/min. Current ATS/ERS acceptability and repeatability standards for spirometry met. Start of test and EOFE criteria met. Current ATS/ERS acceptability and repeatability standards for DLCO met with 2 acceptable maneuvers. Lung Volumes are repeatable x3. Normal [facility] SIX MINUTE WALKon 12-21-2024 Piero Gonzalez M D 12/21/2024 11:46 AM RESPIRATORY THERAPY SIX MINUTE WALK TEST OXIMETRY REPORT Six Minute Walk Test for This Encounter Oxygen Device Liters FIO2 SpO2% HR Activity Feet Speed (MPH) R/A 98 100 Resting R/A 94 133 Six Minute Walk 1285 2.4 R/A 97 121 Recovery General Information Height Weight Pulse Oximetry Site Pre Blood Pressure Post Recovery Blood Pressure 159.3 cm (5' 2.72) 60.3 kg (133 lb) Forehead 133/81 136/71 _ Distance Walked (meters) Distance Walked (feet) Female Predicted Walk Distance (feet) Female Lower Limit of Normal (feet) Female % Predicted Total Duration Of The Stops (seconds) 391.67 1285 1586.29 1130.29 81 -- _ Lowest SpO2 During 6 Minute Walk Pre-Jean Marie Dyspnea Rating Pre-Jean Marie Fatigue Rating Post Jean Marie Dyspnea Rating Post Jean Marie Fatigue Rating Walking Assistance/O2 Supply Carrier 93 % 0 0 0 0 None Six Minute Walk Trend (Previous Encounters) None SIGNATURE: AMERICO Ortega PATIENT NAME: Tiffanie Ramsey DATE: December 21, 2024 TIME: 11:20 AM [facility] SIX MINUTE WALKOrdered By: Yu Gonzalez on 12-21-2024 [facility] Work Phone: SPIROMETRY - BASELINE AND PO ST DILATORon 12-21-2024 SPIROMETRY - BASELINE AND POST DILATOR [facility] [address] [address] Test Date: 2024-12-21 Pat Name: TIFFANIE RAMSEY Department: Room: Gender: Female [employer] Builder: : 1960 Requested By: Order Number: [id number] Reading MD: Piero Gonzalez MD Interpretive Statements Medications and Allergies were reviewed for possible drug interactions per policy. No contraindications or sensitivities were noted. Meds taken: No inhaled respiratory medications taken before testing. 2 puffs Albuterol (180 mcg) delivered by MDI via holding chamber. HR pre = 100/min, HR post = 103/min. Current ATS/ERS acceptability and repeatability standards for spirometry met. Start of test and EOFE criteria met. Current ATS/ERS acceptability and repeatability standards for DLCO met with 2 acceptable maneuvers. Lung Volumes are repeatable x3. IMPRESSION: Spirometry is normal. There is no significant bronchodilator response. The TLC, RV and RV/TLC are normal. The kCO (DLCO/VA) reflects a normal transfer/diffusion of CO from the alveolar regions to the blood. Clinical correlation recommended. Electronically Signed On 12-22-2024 10:23:05 EDT by Piero Gonzalez MD ID: [id number] Name: TIFFANIE RAMSEY Race: White Ht: 62.72 in Wt: 133.00 lbs Age: 64 Gender: Female : 1960 Dx: Shortness of breath Smoking Hx: Non-smoker Doctor: TAQUERIA VIEIRA Test Date: 12/21/2024 Site: Tech: Gail Pang PRE-BRONCH POST-BRONCH Bianca LLN Pred ULN %Pred ZScore Bianca %Pred %Chg ZScore SPIROMETRY FVC 3.34 1.92 2.68 3.47 124 1.38 3.10 115 -8 0.88 FEV1 2.56 1.49 2.12 2.71 121 1.24 2.41 113 -7 0.80 FEV1/FVC 0.77 0.67 0.79 0.90 96 -0.40 0.78 97 1 -0.27 FEFMax 4.91 4.05 5.70 7.34 86 -0.79 4.62 81 -5 -1.07 FEF50 2.76 1.47 3.08 4.69 89 -0.33 3.21 104 16 0.14 FIF50 3.33 2.51 -24 FEF50/FIF50 0.83 90-100 1.28 54 FIVC 3.05 2.94 -3 WIE44-04 2.35 0.93 1.94 3.35 120 0.53 1.36 69 -42 -0.87 ExpiredTime 8.97 9.72 8 TimeToFEFMax 0.13 0.14 7 SHAHZAD 0.09 0.07 -18 VolExtrap% 3 2 -11 LUNG VOLUMES FRC(Pleth) 2.17 1.86 2.61 3.56 83 -0.92 ERV 0.51 0.89 57 RV(Pleth) 1.66 1.08 1.79 2.70 92 -0.27 SVC 3.08 1.92 2.68 3.47 114 0.84 IC 2.50 1.79 139 TLC(Pleth) 4.67 3.84 4.81 5.89 97 -0.22 RV/TLC(Pleth) 35 25 37 49 96 -0.19 LUNG DIFFUSION DLCOunc 17.16 14.11 18.62 24.15 92 -0.50 DLCOStdPB 16.88 14.11 18.62 24.15 90 -0.59 VA 4.38 3.54 4.40 5.36 99 -0.05 Kco 3.85 3.24 4.22 5.34 91 -0.59 Comments: Medications and Allergies were reviewed for possible drug interactions per policy. No contraindications or sensitivities were noted. Meds taken: No inhaled respiratory medications taken before testing. 2 puffs Albuterol (180 mcg) delivered by MDI via holding chamber. HR pre = 100/min, HR post = 103/min. Current ATS/ERS acceptability and repeatability standards for spirometry met. Start of test and EOFE criteria met. Current ATS/ERS acceptability and repeatability standards for DLCO met with 2 acceptable maneuvers. Lung Volumes are repeatable x3. FVC_PRE (L) : 3.34 L FVC_POST (L) : 3.10 L FVC_PRED (L) : 2.68 L FVC_LLN (L) : 1.92 L FVC_ULN (L) : 3.47 L FEV1_PRE (L) : 2.56 L FEV1_POST (L) : 2.41 L FEV1_PRED (L) : 2.12 L FEV1_LLN (L) : 1.49 L FEV1_ULN (L) : 2.71 L FEV1/FVC_PRE (%) : 77 % FEV1/FVC_POST (%) : 78 % FEV1/FVC_PRED (%) : 79 % FEV1/FVC_LLN (%) : 67 % WUI52_QCL (L/S) : 3.83 L/S MGV10_QWDZ (L/S) : 4.51 L/S HGI58_VXD (L/S) : 0.86 L/S TNP77_IHPL (L/S) : 0.27 L/S WIY94_XSCJ (L/S) : 0.50 L/S HTJ56_QDN (L/S) : 0.19 L/S FDA42_XXX (L/S) : 1.25 L/S SFS65-43%_PRE (L/S) : 2.35 L/S SXZ17-99%_POST (L/S) : 1.36 L/S HYN95-37%_PRED (L/S) : 1.94 L/S PKG30-56%_LLN (L/S) : 0.93 L/S PEF_PRE (L/S) : 4.91 L/S PEF_POST (L/S) : 4.62 L/S PEFMAX_LLN (L/S) : 4.05 L/S PEFMAX_ULN (L/S) : 7.34 L/S VC BOX (L) : 3.08 L SVC_PRED (L) : 2.68 L/S SVC_LLN (L) : 1.92 L/S SVC_ULN (L/S) : 3.47 L/S IC BOX (L) : 2.50 L IC_PRED (L) : 1.79 L/S ERV BOX (L) : 0.51 L ERV_PREDICTED (L) : 0.89 L/S DLCO (ML/MIN/MMHG) : 17.16 ml/min/mmHg DLCO_PRED (ML/MIN/MMHG) : 18.62 ml/min/mmHg DLCO_LLN(ML/MIN/MMHG) : 14.11 ml/min/mmHg DLCO_ULN (ML/MIN/MMHG) : 24.15 ml/min/mmHg FET_PRE (S) : 8.97 S FET_POST (S) : 9.72 S FRC BOX (L) : 2.17 L RV BOX (L) : 1.66 L RV_PLETH_PRED (L) : 1.79 L TLC BOX (L) : 4.67 L TLC_PLETH_PRED (L) : 4.81 L RV/TLC BOX (%) : 35 % RV_TLC_PLETH_PRED (%) : 37 % VA (L) : 4.38 L VA_PRD (L) : 4.40 L DLCO/VA (ML/MIN/MMHG/L) : 0.04 ml/min/mmHg/L DLCO_VA_PRED (L) : 0.04 ml/min/mmHg/L DLCOCOR (ML/MIN/MMHG) : 16.88 ml/min/mmHg DLCOCOR_PRED (ML/MIN/MMHG) : 18.62 ml/min/mmHg DLCO/VACOR (ML/MIN/MMHG/L) : 0.04 ml/min/mmHg/L Normal [facility] 25-hydroxyvitamin D3 [Mass/V ol]on 12-16-2024 Interpretation and review of laboratory results Normal [facility] The reference range interval was based on an analysis of samples from healthy adults and may not pertain to children from 0-18 years old. [facility] PTH INTACTon 12-16-2024 Parathyrin.intact [Mass/Vol] 43 pg/mL 15 - 65 pg/mL [facility] Parathyrin.intact [Mass/Vol] on 12-16-2024 Interpretation and review of laboratory results Normal [facility] VITAMIN D 25 HYDROXYon 12-16 25-hydroxyvitamin D3 [Mass/Vol] 43.6 ng/mL 31.0 - 80.0 ng/mL [facility] Comment on above: Classification of 25 [place] Vitamin D status: Deficiency/Insufficiency: < or = 30 ng/ml. Sufficiency/Optimal Levels: 31-80 ng/mL Toxicity: > 100 ng/mL. Test performed by chemiluminescent immunoassay. 25(OH)D3 SerPl-mCncon 2024 25-hydroxyvitamin D3 [Mass/Vol] 43.6 ng/mL Normal 31.0-80.0 [facility] Comment on above: Order Comment: Kia mei Type: BLOOD SPECIMENOrdering Facility: [facility] Address: [address] [place] [address] Result Comment: Clas sification of 25 [place] Vitamin D status: Deficiency/Insufficiency: < or = 30 ng/ml. Sufficiency/Optimal Levels: 31-80 ng/mL Toxicity: > 100 ng/mL. Test performed by chemiluminescent immunoassay. Performed By: #### 1 989-3 ####[facility] [id number] [place] [address] [place] CARBOXYHEMOGLOBIN VENon 11-28 Carboxyhemoglobin (BldV) [Mass fraction] 1.3 % 0.0 - 2.0 % [facility] Comment on above: Carboxyhemoglobin Re ference Range for Smokers: 2.0-8.0% Interpretation and review of laboratory results Normal [facility] Carboxyhemoglobin (BldV) [Mass fraction] 1.3 % Normal 0.0-2.0 [facility] Comment on above: Order Comment: Kia mei Type: BLOOD SPECIMEN [facility] Address: [address] [place] [address] Result Comment: Carb oxyhemoglobin Reference Range for Smokers: 2.0-8.0% Performed By: #### 5 7021-8 #### [facility] CLIA [id number] [address] [place] [address] [place] [facility] CBC W Auto Differential pane l (Bld)on 12-15-2024 Basophils (Bld) [#/Vol] 0.09 10*3/uL [facility] Basophils/100 WBC (Bld) 1.7 % [facility] Differential cell count method Nom (Bld) Auto [facility] Eosinophils (Bld) [#/Vol] 0.19 10*3/uL [facility] Eosinophils/100 WBC (Bld) 3.6 % [facility] Erythrocyte distribution width (RBC) [Ratio] 13.5 % 11.5 - 15.0 % [facility] Hematocrit (Bld) [Volume fraction] 44.5 % 36.0 - 46.0 % [facility] Hemoglobin (Bld) [Mass/Vol] 15.1 g/dL 11.5 - 15.5 g/dL [facility] Immature granulocytes (Bld) [#/Vol] [facility] Immature granulocytes/100 WBC (Bld) 0.4 % [facility] Interpretation and review of laboratory results Abnormal [facility] Lymphocytes (Bld) [#/Vol] 1.29 10*3/uL [facility] Lymphocytes/100 WBC (Bld) 24.1 % [facility] MCH (RBC) [Entitic mass] 28.9 pg 26.0 - 34.0 pg [facility] MCHC (RBC) [Mass/Vol] 33.9 g/dL 30.5 - 36.0 g/dL [facility] MCV (RBC) [Entitic vol] 85.1 fL 80.0 - 100.0 fL [facility] Monocytes (Bld) [#/Vol] 0.44 10*3/uL [facility] Monocytes/100 WBC (Bld) 8.2 % [facility] Neutrophils (Bld) [#/Vol] 3.32 10*3/uL [facility] Neutrophils/100 WBC (Bld) 62.0 % [facility] Nucleated RBC (Bld) [#/Vol] [facility] Nucleated RBC/100 WBC (Bld) [Ratio] 0.0 % /100 WBC [facility] Platelet mean volume (Bld) [Entitic vol] 9.3 fL 9.0 - 12.7 fL [facility] Platelets (Bld) [#/Vol] 285 10*3/uL [facility] RBC (Bld) [#/Vol] 5.23 10*6/uL High 3.90 - 5.2 0 m/uL [facility] WBC (Bld) [#/Vol] 5.35 10*3/uL [facility] Basophils (Bld) [#/Vol] 0.09 10*3/uL Normal <0.11 [facility] Comment on above: Order Comment: Speci men Type: BLOOD SPECIMEN [facility] Address: [address] [place] [address] Performed By: #### 5 7021-8 #### [facility] CLIA [id number] [address] [place] [address] [place] Basophils/100 WBC (Bld) 1.7 % Normal [facility] Comment on above: Order Comment: Speci men Type: BLOOD SPECIMEN [facility] Address: [address] [place] [address] Performed By: #### 5 7021-8 #### [facility] CLIA [id number] [address] [place] [address] [place] Differential cell count method Nom (Bld) Auto Normal [facility] Comment on above: Order Comment: Speci men Type: BLOOD SPECIMEN [facility] Address: [address] [place] [address] Performed By: #### 5 7021-8 #### [facility] CLIA [id number] [address] [place] [address] [place] Eosinophils (Bld) [#/Vol] 0.19 10*3/uL Normal <0.46 [facility] Comment on above: Order Comment: Speci men Type: BLOOD SPECIMEN [facility] Address: [address] [place] [address] Performed By: #### 5 7021-8 #### [facility] CLIA [id number] [address] [place] [address] [place] Eosinophils/100 WBC (Bld) 3.6 % Normal [facility] Comment on above: Order Comment: Speci men Type: BLOOD SPECIMEN [facility] Address: [address] [place] [address] Performed By: #### 5 7021-8 #### [facility] CLIA [id number] [address] [place] [address] [place] Erythrocyte distribution width (RBC) [Ratio] 13.5 % Normal 11.5-15.0 [facility] Comment on above: Order Comment: Speci men Type: BLOOD SPECIMEN [facility] Address: [address] [place] [address] Performed By: #### 5 7021-8 #### [facility] CLIA [id number] [address] [place] [address] [place] Hematocrit (Bld) [Volume fraction] 44.5 % Normal 36.0-46.0 [facility] Comment on above: Order Comment: Speci men Type: BLOOD SPECIMEN [facility] Address: [address] [place] [address] Performed By: #### 5 7021-8 #### [facility] CLIA [id number] [address] [place] [address] [place] Hemoglobin (Bld) [Mass/Vol] 15.1 g/dL Normal 11.5-15.5 [facility] Comment on above: Order Comment: Speci men Type: BLOOD SPECIMEN [facility] Address: [address] [place] [address] Performed By: #### 5 7021-8 #### [facility] CLIA [id number] [address] [place] [address] [place] Immature granulocytes (Bld) [#/Vol] 10*3/uL Normal <0.10 [facility] Comment on above: Order Comment: Speci men Type: BLOOD SPECIMEN [facility] Address: [address] [place] [address] Performed By: #### 5 7021-8 #### [facility] CLIA [id number] [address] [place] [address] [place] Immature granulocytes/100 WBC (Bld) 0.4 % Normal [facility] Comment on above: Order Comment: Speci men Type: BLOOD SPECIMEN [facility] Address: [address] [place] [address] Performed By: #### 5 7021-8 #### [facility] CLIA [id number] [address] [place] [address] [place] Lymphocytes (Bld) [#/Vol] 1.29 10*3/uL Normal 1.00-4.00 [facility] Comment on above: Order Comment: Speci men Type: BLOOD SPECIMEN [facility] Address: [address] [place] [address] Performed By: #### 5 7021-8 #### [facility] CLIA [id number] [address] [place] [address] [place] Lymphocytes/100 WBC (Bld) 24.1 % Normal [facility] Comment on above: Order Comment: Speci men Type: BLOOD SPECIMEN [facility] Address: [address] [place] [address] Performed By: #### 5 7021-8 #### [facility] CLIA [id number] [address] [place] [address] [place] MCH (RBC) [Entitic mass] 28.9 pg Normal 26.0-34.0 [facility] Comment on above: Order Comment: Speci men Type: BLOOD SPECIMEN [facility] Address: [address] [place] [address] Performed By: #### 5 7021-8 #### [id number] [address] [place] [address] [place] MCHC (RBC) [Mass/Vol] 33.9 g/dL Normal 30.5-36.0 [facility] Comment on above: Order Comment: Speci men Type: BLOOD SPECIMEN [facility] Address: [address] [place] [address] Performed By: #### 5 7021-8 #### [id number] [address] [place] [address] [place] MCV (RBC) [Entitic vol] 85.1 fL Normal 80.0-100.0 [facility] Comment on above: Order Comment: Speci men Type: BLOOD SPECIMEN [facility] Address: [address] [place] [address] Performed By: #### 5 7021-8 #### [facility] [id number] [address] [place] [address] [place] Monocytes (Bld) [#/Vol] 0.44 10*3/uL Normal <0.87 [facility] Comment on above: Order Comment: Speci men Type: BLOOD SPECIMEN [facility] Address: [address] [place] [address] Performed By: #### 5 7021-8 #### [facility] CLIA [id number] [address] [place] [address] [place] Monocytes/100 WBC (Bld) 8.2 % Normal [facility] Comment on above: Order Comment: Speci men Type: BLOOD SPECIMEN [facility] Address: [address] [place] [address] Performed By: #### 5 7021-8 #### [facility] [id number] [address] [place] [address] [place] Neutrophils (Bld) [#/Vol] 3.32 10*3/uL Normal 1.45-7.50 [facility] Comment on above: Order Comment: Speci men Type: BLOOD SPECIMEN [facility] Address: [address] [place] [address] Performed By: #### 5 7021-8 #### [facility] CLIA [id number] [address] [place] [address] [place] Neutrophils/100 WBC (Bld) 62.0 % Normal [facility] Comment on above: Order Comment: Speci men Type: BLOOD SPECIMEN [facility] Address: [address] [place] [address] Performed By: #### 5 7021-8 #### [facility] CLIA [id number] [address] [place] [address] [place] Nucleated RBC (Bld) [#/Vol] 10*3/uL Normal <0.01 [facility] Comment on above: Order Comment: Speci men Type: BLOOD SPECIMEN [facility] Address: [address] [place] [address] Performed By: #### 5 7021-8 #### [facility] CLIA [id number] [address] [place] [address] [place] Nucleated RBC/100 WBC (Bld) [Ratio] 0.0 /100 WBC Normal [facility] Comment on above: Order Comment: Speci men Type: BLOOD SPECIMEN [facility] Address: [address] [place] [address] Performed By: #### 5 7021-8 #### [facility] CLIA [id number] [address] [place] [address] [place] Platelet mean volume (Bld) [Entitic vol] 9.3 fL Normal 9.0-12.7 [facility] Comment on above: Order Comment: Speci men Type: BLOOD SPECIMEN [facility] Address: [address] [place] [address] Performed By: #### 5 7021-8 #### [facility] CLIA [id number] [address] [place] [address] [place] Platelets (Bld) [#/Vol] 285 10*3/uL Normal 150-400 [facility] Comment on above: Order Comment: Speci men Type: BLOOD SPECIMEN [facility] Address: [address] [place] [address] Performed By: #### 5 7021-8 #### [facility] CLIA [id number] [address] [place] [address] [place] RBC (Bld) [#/Vol] 5.23 10*6/uL High 3.90-5.20 [facility] Comment on above: Order Comment: Speci men Type: BLOOD SPECIMEN [facility] Address: [address] [place] [address] Performed By: #### 5 7021-8 #### [facility] CLIA [id number] [address] [place] [address] [place] WBC (Bld) [#/Vol] 5.35 10*3/uL Normal 3.70-11.00 [facility] Comment on above: Order Comment: Speci men Type: BLOOD SPECIMEN [facility] Address: [address] [place], [place] [id number] Performed By: #### 5 7021-8 #### [facility] CLIA [id number] [address] [place] [address] [place] Calcium.ionized [Moles/Vol]o n 12-15-2024 Calcium.ionized (Bld) [Mass/Vol] 1.31 mmol/L High 1.08 - 1.30 mmol/L [facility] Calcium.ionized adjusted to pH 7.4 (Bld) [Moles/Vol] 1.31 mmol/L High 1.08 - 1.30 mmol/L [facility] Interpretation and review of laboratory results Abnormal [facility] Calcium.ionized (Bld) [Mass/Vol] 1.31 mmol/L High 1.08-1.30 [facility] Comment on above: Order Comment: Speci men Type: BLOOD SPECIMENOrdering Facility: [facility] Address: [address] [place] [address] Performed By: #### 1 995-0 ####[facility] [id number] [place] [address] [place] Calcium.ionized adjusted to pH 7.4 (Bld) [Moles/Vol] 1.31 mmol/L High 1.08-1.30 [facility] Comment on above: Order Comment: Speci men Type: BLOOD SPECIMENOrdering Facility: [facility] Address: [address] [place] [address] Performed By: #### 1 995-0 ####[facility] [id number] [place] [address] [place] [facility]TH[facility]act [facility]28 Parathyrin.intact [Mass/Vol] 43 pg/mL Normal 15-65 [facility] Comment on above: Order Comment: Speci men Type: BLOOD SPECIMEN [facility] Address: [address] [place] [address] Performed By: #### 5 7021-8 #### [facility] [id number] [address] [place] [address] [place] Joe 12-04-2024 GIANNAN Telephone (FAMPWS) -- TIFFANIE RAMSEY ([id number]) 1960 F Date Time Provider Department 12/04/24 TAQUERIA VIEIRA During your visit today, we recorded the following information about you: Taqueria Vieira MD 12/04/2024 9:10 AM Signed Brief Assessment of Cognitive Health (BACH) Results: The patient endorsed mild depression symptoms on PHQ-8[1]. The patient endorsed a moderate level of stress. The patient reported getting about 6 hours of sleep per night, which falls into the may be appropriate category based on National Sleep Foundation Guidelines [2].They endorsed mild recent sleep problems. The patient?s cognitive test performance was VALID. When invalid, probability of cognitive impairment score should be disregarded. Probability of cognitive impairment [3]: 27.06% Above 50% - Probable cognitive impairment; Specialty evaluation may be warranted 20-50% - Possible cognitive impairment; Address moderate to severe depression and sleep issues and retest Below 20% - Very low chance of cognitive impairment Moderate to severe levels of depression or stress may contribute to subjective cognitive complaints in the absence of cognitive impairment [1] Mikaoecherelle K, Yumiko TW, Lauren RL, Kai YAZAN, Joey JT, Dee AH. The PHQ-8 as a measure of current depression in the general population. J Affect Disord. 2009;114(1-3):163-173. doi: 10.1016/j.sigiferdo.2008.06.026 [2] Josseline et al. National Sleep Foundation's sleep time duration recommendations: methodology and results summary. Sleep Health. 2015 Mar;1(1):40-43. doi: 10.1016/j.sleh.2014.12.010 . [3] Marge RM, Saw O, Deb AF, Lei DP. Automated detection of cognitive impairment in clinical practice. J Neurol. 2023Nov 01. doi: 10.1007/s38126-978-22363-1 . Epub ahead of print. PMID: 84432276. Allergies As of Date: 12/04/2024 Noted Allergy Reaction ABBY (FEXOFENADINE HCL) 06/24/2005 5 - Intolerance Comments: Hyperactivity CLARITIN (LORATADINE) 06/24/2005 5 - Intolerance Comments: Hyperactivity LIPITOR (ATORVASTATIN) 07/22/2023 8 - GI Upset SULFA (SULFONAMIDE ANTIBIOTICS) 09/12/2004 2 - Rash ZYRTEC (CETIRIZINE HCL) 06/24/2005 5 - Intolerance Comments: Drowsiness Date Reviewed: 11/30/2024 Reviewed by: Rasheed Callahan MA - Fully Assessed Reason for Visit: Results [95] Prescriptions as of 12/04/2024 - ergocalciferol 50,000 unit capsule (VITAMIN D2, DRISDOL) Take 1 capsule by mouth one time a week. - fluocinonide (LIDEX) 0.05 % external solution Apply to affected areas of hairloss on the scalp BID M-F - amoxicillin-clavulanate potassium (AUGMENTIN) 875-125 mg per tablet Take 1 tablet by mouth every 12 hours. - methylPREDNISolone (MEDROL DOSE-PACK) 4 mg Dose-Pack take by mouth as directed on inside of package - fluticasone (FLONASE) 50 mcg/actuation nasal spray Use 2 Sprays in each nostril once daily. Problem List As Of Date 12/04/2024 Noted Resolved CENT PERF TYMPANIC MEMB [H72.00] 11/10/2004 Impacted cerumen [H61.20] 12/06/2006 07/13/2023 OTALGIA NOS [H92.09] 12/06/2006 Plantar fasciitis [M72.2] 09/13/2013 Pain in limb [M79.609] 09/13/2013 Vitamin D deficiency [E55.9] 07/13/2023 Diagnosed: 07/13/2023 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 [N89.8] 07/13/2023 Diagnosed: 07/13/2023 Urinary tract infection [N39.0] 07/13/2023 Diagnosed: 07/13/2023 Urge incontinence of urine [N39.41] 07/13/2023 Diagnosed: 07/13/2023 Tendinitis of left rotator cuff [M75.82] 07/13/2023 Diagnosed: 07/13/2023 Menopausal symptom [N95.1] 07/13/2023 Diagnosed: 07/13/2023 Seborrheic dermatitis [L21.9] 07/13/2023 Diagnosed: 07/13/2023 Non-toxic multinodular goiter [E04.2] 07/13/2023 Diagnosed: 07/13/2023 Insomnia [G47.00] 07/13/2023 Diagnosed: 07/13/2023 Impingement syndrome of shoulder region [M75.40]07/13/2023 Diagnosed: 07/13/2023 Hyperlipidemia [E78.5] 07/13/2023 Diagnosed: 07/13/2023 Greater trochanteric bursitis [M70.60] 07/13/2023 Diagnosed: 07/13/2023 Gastroesophageal reflux disease [K21.9] 07/13/2023 Diagnosed: 07/13/2023 Family history of malignant neoplasm of gastroi*07/26/2012 Diagnosed: 07/13/2023 Dysphagia [R13.10] 07/13/2023 Diagnosed: 07/13/2023 Irritable bowel syndrome with constipation [K58*07/13/2023 Diagnosed: 07/13/2023 Cobalamin deficiency [E53.8] 07/13/2023 Diagnosed: 07/13/2023 Benign paroxysmal positional vertigo [H81.10] 07/13/2023 Diagnosed: 07/13/2023 Allergic rhinitis [J30.9] 07/13/2023 Diagnosed: 07/13/2023 Hearing loss [H91.90] 07/13/2023 Diagnosed: 07/13/2023 Pain in left hip [M25.552] 10/01/2023 DDD (degenerative disc disease), lumbar [M51.36*10/01/2023 Encounter Status:Closed by TAQUERIA VIEIRA on 12/04/24 [facility] Telephone (PUMKRISTYT) -- TIFFANIE RAMSEY ([id number]) 1960 F Date Time Provider Department 12/04/24 TAQUERIA VIEIRA During your visit today, we recorded the following information about you: Rosalind Bergeron, JOHN 12/04/2024 10:13 AM Signed Called patient. Reviewed below results and recommendations to drink more fluids and get labs drawn in 1-2 weeks, order in chart. Pt is agreeable. Rosalind Bergeron, RN Per communication to nursing: Taqueria Vieira MD 12/04/2024 9:11 AM EDT Did not picker/puller her my chart note, see below. Also her bach test was good. No definite signs of significant cognitive impairment. Message to patient: Written by Taqueria Vieira MD on 12/01/2024 11:56 AM EDT Calcium is up. May be lab error. The red counts are mildly up as well. Can all be due to hydration. Push fluids and recheck labs in one to two weeks. We still have some other labs that can take up to a week or two to come back. Call or my chart us with any questions. Take Care, Dr Vieira Allergies As of Date: 12/04/2024 Noted Allergy Reaction ABBY (FEXOFENADINE HCL) 06/24/2005 5 - Intolerance Comments: Hyperactivity CLARITIN (LORATADINE) 06/24/2005 5 - Intolerance Comments: Hyperactivity LIPITOR (ATORVASTATIN) 07/22/2023 8 - GI Upset SULFA (SULFONAMIDE ANTIBIOTICS) 09/12/2004 2 - Rash ZYRTEC (CETIRIZINE HCL) 06/24/2005 5 - Intolerance Comments: Drowsiness Date Reviewed: 11/30/2024 Reviewed by: Rasheed Callahan MA - Fully Assessed Reason for Visit: Results [95] Cmt: Lab and Bach test results Prescriptions as of 12/06/2024 - ergocalciferol 50,000 unit capsule (VITAMIN D2, DRISDOL) Take 1 capsule by mouth one time a week. - fluocinonide (LIDEX) 0.05 % external solution Apply to affected areas of hairloss on the scalp BID M-F - amoxicillin-clavulanate potassium (AUGMENTIN) 875-125 mg per tablet Take 1 tablet by mouth every 12 hours. - methylPREDNISolone (MEDROL DOSE-PACK) 4 mg Dose-Pack take by mouth as directed on inside of package - fluticasone (FLONASE) 50 mcg/actuation nasal spray Use 2 Sprays in each nostril once daily. Problem List As Of Date 12/04/2024 Noted Resolved CENT PERF TYMPANIC MEMB [H72.00] 11/10/2004 Impacted cerumen [H61.20] 12/06/2006 07/13/2023 OTALGIA NOS [H92.09] 12/06/2006 Plantar fasciitis [M72.2] 09/13/2013 Pain in limb [M79.609] 09/13/2013 Vitamin D deficiency [E55.9] 07/13/2023 Diagnosed: 07/13/2023 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 [N89.8] 07/13/2023 Diagnosed: 07/13/2023 Urinary tract infection [N39.0] 07/13/2023 Diagnosed: 07/13/2023 Urge incontinence of urine [N39.41] 07/13/2023 Diagnosed: 07/13/2023 Tendinitis of left rotator cuff [M75.82] 07/13/2023 Diagnosed: 07/13/2023 Menopausal symptom [N95.1] 07/13/2023 Diagnosed: 07/13/2023 Seborrheic dermatitis [L21.9] 07/13/2023 Diagnosed: 07/13/2023 Non-toxic multinodular goiter [E04.2] 07/13/2023 Diagnosed: 07/13/2023 Insomnia [G47.00] 07/13/2023 Diagnosed: 07/13/2023 Impingement syndrome of shoulder region [M75.40]07/13/2023 Diagnosed: 07/13/2023 Hyperlipidemia [E78.5] 07/13/2023 Diagnosed: 07/13/2023 Greater trochanteric bursitis [M70.60] 07/13/2023 Diagnosed: 07/13/2023 Gastroesophageal reflux disease [K21.9] 07/13/2023 Diagnosed: 07/13/2023 Family history of malignant neoplasm of gastroi*07/26/2012 Diagnosed: 07/13/2023 Dysphagia [R13.10] 07/13/2023 Diagnosed: 07/13/2023 Irritable bowel syndrome with constipation [K58*07/13/2023 Diagnosed: 07/13/2023 Cobalamin deficiency [E53.8] 07/13/2023 Diagnosed: 07/13/2023 Benign paroxysmal positional vertigo [H81.10] 07/13/2023 Diagnosed: 07/13/2023 Allergic rhinitis [J30.9] 07/13/2023 Diagnosed: 07/13/2023 Hearing loss [H91.90] 07/13/2023 Diagnosed: 07/13/2023 Pain in left hip [M25.552] 10/01/2023 DDD (degenerative disc disease), lumbar [M51.36*10/01/2023 Encounter Status:Closed by ROSALIND BERGERON on 12/06/24 Normal [facility] 25([facility])D3 [facility] 25-hydroxyvitamin D3 [Mass/Vol] 52.6 ng/mL Normal 31.0-80.0 [facility] Comment on above: Order Comment: Speci men Type: BLOOD SPECIMENOrdering Facility: [facility] Address: [address] [place] [address] Result Comment: Clas sification of 25 [place] Vitamin D status: Deficiency/Insufficiency: < or = 30 ng/ml. Sufficiency/Optimal Levels: 31-80 ng/mL Toxicity: > 100 ng/mL. Test performed by chemiluminescent immunoassay. Performed By: #### 1 989-3 ####[facility] [id number] [place] [address] [place] CBC W Auto Differential pane l (Bld)on 11-30-2024 Basophils (Bld) [#/Vol] 0.09 10*3/uL [facility] Basophils/100 WBC (Bld) 1.4 % [facility] Differential cell count method Nom (Bld) Auto [facility] Eosinophils (Bld) [#/Vol] 0.18 10*3/uL [facility] Eosinophils/100 WBC (Bld) 2.8 % [facility] Erythrocyte distribution width (RBC) [Ratio] 14.1 % 11.5 - 15.0 % [facility] Hematocrit (Bld) [Volume fraction] 47.8 % High 36.0 - 46.0 % [facility] Hemoglobin (Bld) [Mass/Vol] 15.8 g/dL High 11.5 - 15.5 g/dL [facility] Immature granulocytes (Bld) [#/Vol] 0.04 10*3/uL [facility] Immature granulocytes/100 WBC (Bld) 0.6 % [facility] Interpretation and review of laboratory results Abnormal [facility] Lymphocytes (Bld) [#/Vol] 1.42 10*3/uL [facility] Lymphocytes/100 WBC (Bld) 21.9 % [facility] MCH (RBC) [Entitic mass] 28.9 pg 26.0 - 34.0 pg [facility] MCHC (RBC) [Mass/Vol] 33.1 g/dL 30.5 - 36.0 g/dL [facility] MCV (RBC) [Entitic vol] 87.5 fL 80.0 - 100.0 fL [facility] Monocytes (Bld) [#/Vol] 0.43 10*3/uL [facility] Monocytes/100 WBC (Bld) 6.6 % [facility] Neutrophils (Bld) [#/Vol] 4.31 10*3/uL [facility] Neutrophils/100 WBC (Bld) 66.7 % [facility] Nucleated RBC (Bld) [#/Vol] [facility] Nucleated RBC/100 WBC (Bld) [Ratio] 0 % /100 WBC [facility] Platelet mean volume (Bld) [Entitic vol] 10.4 fL 9.0 - 12.7 fL [facility] Platelets (Bld) [#/Vol] 300 10*3/uL [facility] RBC (Bld) [#/Vol] 5.46 10*6/uL High 3.90 - 5.2 0 m/uL [facility] WBC (Bld) [#/Vol] 6.47 10*3/uL [facility] Basophils (Bld) [#/Vol] 0.09 10*3/uL Normal <0.11 [facility] Comment on above: Order Comment: Speci men Type: BLOOD SPECIMENOrdering Facility: [facility] Address: [address] [place] [address] Performed By: #### 5 7021-8 ####[facility] [id number] [address] [place] Basophils/100 WBC (Bld) 1.4 % Normal [facility] Comment on above: Order Comment: Speci men Type: BLOOD SPECIMENOrdering Facility: [facility] Address: [address] [place] [address] Performed By: #### 5 7021-8 ####[facility] [id number] [place] [address] [place] Differential cell count method Nom (Bld) Auto Normal [facility] Comment on above: Order Comment: Speci men Type: BLOOD SPECIMENOrdering Facility: [facility] Address: [address] [place] [address] Performed By: #### 5 7021-8 ####[facility] [id number] [place] [address] [place] Eosinophils (Bld) [#/Vol] 0.18 10*3/uL Normal <0.46 [facility] Comment on above: Order Comment: Speci men Type: BLOOD SPECIMENOrdering Facility: [facility] Address: [address] [place] [address] Performed By: #### 5 7021-8 ####[facility] [id number] [place] [address] [place] Eosinophils/100 WBC (Bld) 2.8 % Normal [facility] Comment on above: Order Comment: Speci men Type: BLOOD SPECIMENOrdering Facility: [facility] Address: [address] [place] [address] Performed By: #### 5 7021-8 ####[facility] [id number] [place] [address] [place] Erythrocyte distribution width (RBC) [Ratio] 14.1 % Normal 11.5-15.0 [facility] Comment on above: Order Comment: Speci men Type: BLOOD SPECIMENOrdering Facility: [facility] Address: [address] [place] [address] Performed By: #### 5 7021-8 ####[facility] [id number] [address], [place] [address] [place] Hematocrit (Bld) [Volume fraction] 47.8 % High 36.0-46.0 [facility] Comment on above: Order Comment: Speci men Type: BLOOD SPECIMENOrdering Facility: [facility] Address: [address] [place] [address] Performed By: #### 5 7021-8 ####[facility] [id number] [address], [place] [address] [place] Hemoglobin (Bld) [Mass/Vol] 15.8 g/dL High 11.5-15.5 [facility] Comment on above: Order Comment: Speci men Type: BLOOD SPECIMENOrdering Facility: [facility] Address: [address] [place] [address] Performed By: #### 5 7021-8 ####[facility] [id number] [address], [place] [address] [place] Immature granulocytes (Bld) [#/Vol] 0.04 10*3/uL Normal <0.10 [facility] Comment on above: Order Comment: Speci men Type: BLOOD SPECIMENOrdering Facility: [facility] Address: [address] [place] [address] Performed By: #### 5 7021-8 ####[facility] [id number] [place] [address] [place] Immature granulocytes/100 WBC (Bld) 0.6 % Normal [facility] Comment on above: Order Comment: Speci men Type: BLOOD SPECIMENOrdering Facility: [facility] Address: [address] [place] [address] Performed By: #### 5 7021-8 ####[facility] [id number] [place] [address] [place] Lymphocytes (Bld) [#/Vol] 1.42 10*3/uL Normal 1.00-4.00 [facility] Comment on above: Order Comment: Speci men Type: BLOOD SPECIMENOrdering Facility: [facility] Address: [address] [place] [address] Performed By: #### 5 7021-8 ####[facility] [id number] [place] [address] [place] Lymphocytes/100 WBC (Bld) 21.9 % Normal [facility] Comment on above: Order Comment: Speci men Type: BLOOD SPECIMENOrdering Facility: [facility] Address: [address] [place] [address] Performed By: #### 5 7021-8 ####[facility] [id number] [place] [address] [place] MCH (RBC) [Entitic mass] 28.9 pg Normal 26.0-34.0 [facility] Comment on above: Order Comment: Speci men Type: BLOOD SPECIMENOrdering Facility: [facility] Address: [address] [place] [address] Performed By: #### 5 7021-8 ####[facility] [id number] [place] [address] [place] MCHC (RBC) [Mass/Vol] 33.1 g/dL Normal 30.5-36.0 [facility] Comment on above: Order Comment: Speci men Type: BLOOD SPECIMENOrdering Facility: [facility] Address: [address] [place] [address] Performed By: #### 5 7021-8 ####[facility] [id number] [place] [address] [place] MCV (RBC) [Entitic vol] 87.5 fL Normal 80.0-100.0 [facility] Comment on above: Order Comment: Speci men Type: BLOOD SPECIMENOrdering Facility: [facility] Address: [address] [place] [address] Performed By: #### 5 7021-8 ####[facility] [id number] [facility] [address] [place] [address] [place] Monocytes (Bld) [#/Vol] 0.43 10*3/uL Normal <0.87 [facility] Comment on above: Order Comment: Speci men Type: BLOOD SPECIMENOrdering Facility: [facility] Address: [address] [place] [address] Performed By: #### 5 7021-8 ####[facility] [id number] [address], [facility] [place] Monocytes/100 WBC (Bld) 6.6 % Normal [facility] Comment on above: Order Comment: Speci men Type: BLOOD SPECIMENOrdering Facility: [facility] Address: [address] [place] [address] Performed By: #### 5 7021-8 ####[facility] [id number] [facility] [address] [place] [address] [place] Neutrophils (Bld) [#/Vol] 4.31 10*3/uL Normal 1.45-7.50 [facility] Comment on above: Order Comment: Speci men Type: BLOOD SPECIMENOrdering Facility: [facility] Address: [address] [place] [address] Performed By: #### 5 7021-8 ####[facility] [id number] [facility] [address] [place] [address] [place] Neutrophils/100 WBC (Bld) 66.7 % Normal [facility] Comment on above: Order Comment: Speci men Type: BLOOD SPECIMENOrdering Facility: [facility] Address: [address] [place] [address] Performed By: #### 5 7021-8 ####[facility] [id number] [facility] [place] [address] [place] Nucleated RBC (Bld) [#/Vol] 10*3/uL Normal <0.01 [facility] Comment on above: Order Comment: Speci men Type: BLOOD SPECIMENOrdering Facility: [facility] Address: [address] [place] [address] Performed By: #### 5 7021-8 ####[facility] [id number] [place] [address] [place] Nucleated RBC/100 WBC (Bld) [Ratio] 0.0 /100 WBC Normal [facility] Comment on above: Order Comment: Speci men Type: BLOOD SPECIMENOrdering Facility: [facility] Address: [address] [place] [address] Performed By: #### 5 7021-8 ####[facility] [id number] [place] [address] [place] Platelet mean volume (Bld) [Entitic vol] 10.4 fL Normal 9.0-12.7 [facility] Comment on above: Order Comment: Speci men Type: BLOOD SPECIMENOrdering Facility: [facility] Address: [address] [place] [address] Performed By: #### 5 7021-8 ####[facility]IA [id number] [place] [address] [place] Platelets (Bld) [#/Vol] 300 10*3/uL Normal 150-400 [facility] Comment on above: Order Comment: Speci men Type: BLOOD SPECIMENOrdering Facility: [facility] Address: [address] [place] [address] Performed By: #### 5 7021-8 ####[facility] [id number] [place] [address] [place] RBC (Bld) [#/Vol] 5.46 10*6/uL High 3.90-5.20 [facility] Comment on above: Order Comment: Speci men Type: BLOOD SPECIMENOrdering Facility: [facility] Address: [address] [place] [address] Performed By: #### 5 7021-8 ####[facility] [id number] [place] [id number] [place] WBC (Bld) [#/Vol] 6.47 10*3/uL Normal 3.70-11.00 [facility] Comment on above: Order Comment: Speci men Type: BLOOD SPECIMENOrdering Facility: [facility] Address: [address] [place] [address] Performed By: #### 5 7021-8 ####[facility] [id number] [place] [address] [place] CHROMIUM BLOODon 11-30-2024 Chromium (Bld) [Mass/Vol] <0.5 Normal <0.6 [facility] Comment on above: Order Comment: Speci men Type: BLOOD SPECIMENOrdering Facility: [facility] Address: [address] [place] [address] Result Comment: This test was developed, and its performance characteristics determined by the [facility] Department of Pathology and Laboratory Medicine. It has not been cleared or approved by the FDA. The [facility] Department of Pathology and Laboratory Medicine is regulated under CLIA as qualified to perform high-complexity testing. This test is used for clinical purposes. It should not be regarded as investigational or for research. Performed By: #### Yu REYES CHROM ####[facility] [id number] [place] [id number] [place] CNOVon 11-30-2024 [facility] -- TIFFANIE [id number]) 1960 F Date Time Provider Department 11/30/24 10:20 AM TAQUERIA VIEIRA During your visit today, we recorded the following information about you: Temperature Pulse Blood pressure Weight 98 degrees 86/minute 120/83 61.1 kg Height 1.604 m Taqueria Vieira MD 11/30/2024 11:28 AM Signed Note was copied and pasted, without alteration from Aicha Contreras's visit of 05/22: Description of their course of COVID-19 illness 1. Symptoms began on 02/2023 -- AFTER MOST RECENT COVID-19 VACCINATION 2. Hospitalization? No 3. Was the patient on oxygen? No 4. Was patient discharged on oxygen? No 5. Was there an ICU stay? No 6. Was the patient intubated? No 7. Were there any COVID-19 medications given? No 8. Were there significant complications from the patients COVID-19 Illness? No 9. Has the patient received the COVID Vaccine? YES. Which vaccine? MideoMe COVID-19 Symptom Review Was ill for roughly 6 months after COVID infection 02/2022 -- was feeling back to her baseline and then she developed symptoms after COVID vaccine booster administered 02/2023. Most significant symptoms: Fatigue Sleep disturbances Sleep issues have gotten worse Insomnia Only sleeping 4-5 hours per night No trouble initiating sleep May wake up after a few hours and if not back to sleep in 45 minutes she wakes up Has tried melatonin and other OTC sleep aides without relief Her does not notice Will wake up and her mind starts racing Tries to take frequent breaks during the day, going for walks ?anxiety Sinus issues Constant nasal draining Throat irritation Burning sensation of tongue She has noticed new fissure down middle of throat No mouth or tongue dryness Recently treated for sinus infection May use Netti pot with distilled water and Mucinex Body aches Tylenol for arthritis helps Cortisone injections in shoulders No joint swelling Patient reports she was advised to wait 1 year to get shingles vaccine. Tolerated 7722-4742 season influenza vaccine. Recent/previously completed testing since COVID-19 infection(s): EKG none ECHO none PFT none CXR none Established with the following specialists: Endocrinology - Dr. Dominique Fisher, upcoming appt 05/25/2023 ENT - Dr. Joe Shah, upcoming appt 06/15/2023 Review of Systems Constitutional: Positive for activity change and fatigue. Negative for fever. HENT: Positive for congestion and rhinorrhea. Negative for facial swelling, sore throat and trouble swallowing. + tongue pain Respiratory: Negative for cough, shortness of breath and wheezing. Cardiovascular: Negative for chest pain, palpitations and leg swelling. Gastrointestinal: Negative for diarrhea, nausea and vomiting. Musculoskeletal: Positive for arthralgias and myalgias. Skin: Negative for rash. Neurological: Negative for syncope, numbness and headaches. Psychiatric/Behavioral: Positive for sleep disturbance. Negative for confusion. 1. Vaccine reaction, sequela - ICD9: 909.5, E949.9, ICD10: T50.Z95S (primary diagnosis) 2. Fatigue, unspecified type - ICD9: 780.79, ICD10: R53.83 3. Activity intolerance - ICD9: 780.99, ICD10: R68.89 4. Sleep disturbance - ICD9: 780.50, ICD10: G47.9 5. Sinus congestion - ICD9: 478.19, ICD10: R09.81 6. Rhinorrhea - ICD9: 478.19, ICD10: J34.89 7. Myalgias - ICD9: 729.1, ICD10: M79.10 8. Polyarthralgia - ICD9: 719.49, ICD10: M25.50 9. Tongue burning sensation - ICD9: 529.6, ICD10: K14.6 - Due to new symptom onset 1 year after COVID infection and previous resolution of lingering COVID symptoms before 02/2023, suspect patient is experiencing vaccine reaction/sensitivity rather than true long COVID - The patient and I reviewed available re[facility]OVer clinic testing in detail. We discussed indications for testing and the benefits of results in directing the plan of care -- patient defers reCOVer clinic labs at this time - The patient will then follow-up with specialists and their PCP - Patient encouraged to continue following with established specialists - Discussed consults to Sleep medicine, PT, Psychology, Wellness (Integrative medicine) -- deferred at this time - Encouraged reconsideration of shingles vaccine with PCP, no overt contraindication from our perspective Discussed consults to Sleep medicine, PT, Psychology, Wellness (Integrative medicine) -- deferred at this time. Taqueria Vieira MD 11/30/2024 10:53 AM Signed - Complete the at-home BACH cognitive test sent to your [employer] account and return results when prompted. - Have blood and urine drawn for the long COVID panel: Complete blood count (CBC) and metabolic panel (CMP) Thyroid (TSH) Vitamin B12 and folate Vitamin D C-reactive protein (CRP) B-type natriuretic peptide (BNP) D-dimer Ferritin [place]-check (f (more content not included)... Normal [facility] COPPER BLOODon 11-30-2024 Copper [Mass/Vol] 107 ug/dL Normal 80-155 [facility] Comment on above: Order Comment: Speci men Type: BLOOD SPECIMENOrdering Facility: [facility] Address: [address] [place] [address] Result Comment: This test was developed, and its performance characteristics determined by the [facility] Department of Pathology and Laboratory Medicine. It has not been cleared or approved by the FDA. The [facility] Department of Pathology and Laboratory Medicine is regulated under CLIA as qualified to perform high-complexity testing. This test is used for clinical purposes. It should not be regarded as investigational or for research. Performed By: #### 5 763-8, COPPER ####[facility] [id number] [place] [address] [place] CRP SerPl-mCncon 11-30-2024 CRP [Mass/Vol] mg/L Normal <0.9 [facility] Comment on above: Order Comment: Speci men Type: BLOOD SPECIMENOrdering Facility: [facility] Address: [address] [place] [address] Performed By: #### 1 988-5, 2284-8, 2132-9 ####[facility] [id number] [place] [address] [place] Comprehensive metabolic 2000 panelon 11-30-2024 Albumin [Mass/Vol] 5.0 g/dL High 3.9-4.9 [facility] Comment on above: Order Comment: Speci men Type: BLOOD SPECIMENOrdering Facility: [facility] Address: [address] [place] [address] Performed By: #### 3 016-3, 55168-3, 69071-6, 6-4 ####[facility] [id number] [place] [address] [place] ALP [Catalytic activity/Vol] 64 U/L Normal 34-123 [facility] Comment on above: Order Comment: Speci men Type: BLOOD SPECIMENOrdering Facility: [facility] Address: [address] [place] [address] Performed By: #### 3 016-3, 71646-0, 96004-2, 6-4 ####[facility] [id number] [place] [address] [place] ALT [Catalytic activity/Vol] 36 U/L Normal 7-38 [facility] Comment on above: Order Comment: Speci men Type: BLOOD SPECIMENOrdering Facility: [facility] Address: [address] [place] [address] Performed By: #### 3 016-3, 25501-5, 41666-4, 2275-4 ####[facility] [id number] [place] [address] [place] Anion gap [Moles/Vol] 15 mmol/L Normal 8-15 [facility] Comment on above: Order Comment: Speci men Type: BLOOD SPECIMENOrdering Facility: [facility] Address: [address] [place] [address] Performed By: #### 3 016-3, 79643-4, 11942-4, 6-4 ####[facility] [id number] [place] [address] [place] AST [Catalytic activity/Vol] 31 U/L Normal 13-35 [facility] Comment on above: Order Comment: Speci men Type: BLOOD SPECIMENOrdering Facility: [facility] Address: [address] [place], [place] [address] Performed By: #### 3 016-3, 03614-6, 94570-9, 6-4 ####[facility] [id number] [address] [address] [place] Bilirubin [Mass/Vol] 1.0 mg/dL Normal 0.2-1.3 [facility] Comment on above: Order Comment: Speci men Type: BLOOD SPECIMENOrdering Facility: [facility] Address: [address] [place] [address] Performed By: #### 3 016-3, 11577-4, 46193-1, 6-4 ####[facility] [id number] [place] [id number] [place] Calcium [Mass/Vol] 10.6 mg/dL High 8.5-10.2 [facility] Comment on above: Order Comment: Speci men Type: BLOOD SPECIMENOrdering Facility: [facility] Address: [address] [place] [address] Performed By: #### 3 016-3, 77312-9, 41901-5, 2275-4 ####[facility] [id number] [place] [address] [place] Chloride [Moles/Vol] 101 mmol/L Normal 98-107 [facility] Comment on above: Order Comment: Speci men Type: BLOOD SPECIMENOrdering Facility: [facility] Address: [address] [place], [place] [address] Performed By: #### 3 016-3, 95685-8, 97961-7, 6-4 ####[facility] [id number] [place] [address] [place] CO2 [Moles/Vol] 25 mmol/L Normal 22-30 [facility] Comment on above: Order Comment: Speci men Type: BLOOD SPECIMENOrdering Facility: [facility] Address: [address] [place] [id number] Performed By: #### 3 016-3, 95119-5, 53411-5, 6-4 ####[facility] [id number] [address] [address] [place] Creatinine [Mass/Vol] 0.73 mg/dL Normal 0.58-0.96 [facility] Comment on above: Order Comment: Speci men Type: BLOOD SPECIMENOrdering Facility: [facility] Address: [address] [place] [address] Performed By: #### 3 016-3, 06237-9, 04266-5, 2275-4 ####[facility] [id number] [place] [address] [place] Creatinine and Glomerular filtration rate.predicted panel (S/P/Bld) 91 mL/min/1.73m??? Normal >=60 [facility] Comment on above: Order Comment: Speci men Type: BLOOD SPECIMENOrdering Facility: [facility] Address: [address] [place] [address] Result Comment: Sophie mated Glomerular Filtration Rate (eGFR) is calculated using the 2020 CKD-EPI creatinine equation. This equation utilizes serum creatinine, sex, and age as parameters. The creatinine assay has traceable calibration to isotope dilution-mass spectrometry. Refer to KDIGO guidelines for clinical interpretation. In patients with unstable renal function, e.g. those with acute kidney injury, the eGFR may not accurately reflect actual GFR. Performed By: #### 3 016-3, 60554-2, 96724-7, 2275-4 ####[facility] [id number] [address] [address] [place] Glucose [Mass/Vol] 91 mg/dL Normal 74-99 [facility] Comment on above: Order Comment: Speci men Type: BLOOD SPECIMENOrdering Facility: [facility] Address: [address] [place] [address] Result Comment: The [place] [employer] (ADA) provides guidance for cutoff values for fasting glucose and random glucose. The ADA defines fasting as no caloric intake for at least 8 hours. Fasting plasma glucose results between 100 to 125 mg/dL indicate increased risk for diabetes (prediabetes). Fasting plasma glucose results greater than or equal to 126 mg/dL meet the criteria for diagnosis of diabetes. In the absence of unequivocal hyperglycemia, results should be confirmed by repeat testing. In a patient with classic symptoms of hyperglycemia or hyperglycemic crisis, random plasma glucose results greater than or equal to 200 mg/dL meet the criteria for diagnosis of diabetes. Reference: Standards of Medical Care in Diabetes 2016, [place] [employer]. Diabetes Care. 2016.39(Suppl 1). Performed By: #### 3 016-3, 75406-7, 85486-8, 2276-4 ####[facility] [id number] [place] [address] [place] Potassium [Moles/Vol] 4.1 mmol/L Normal 3.7-5.1 [facility] Comment on above: Order Comment: Kia men Type: BLOOD SPECIMENOrdering Facility: [facility] Address: [address] [place] [address] Performed By: #### 3 016-3, 10828-0, 13335-1, 2275-4 ####[facility] [id number] [place] [address] [place] Protein [Mass/Vol] 8.1 g/dL High 6.3-8.0 [facility] Comment on above: Order Comment: Sarahi sigifredo Type: BLOOD SPECIMENOrdering Facility: [facility] Address: [address] [place] [address] Performed By: #### 3 016-3, 25636-0, 30561-9, 6-4 ####[facility] [id number] [place] [address] [place] Sodium [Moles/Vol] 141 mmol/L Normal 136-144 [facility] Comment on above: Order Comment: Sarahi men Type: BLOOD SPECIMENOrdering Facility: [facility] Address: [address] [place] [address] Performed By: #### 3 016-3, 61838-4, 52109-1, 2276-4 ####[facility] [id number] [place] [address] [place] Urea nitrogen [Mass/Vol] 12 mg/dL Normal 7-21 [facility] Comment on above: Order Comment: Speci men Type: BLOOD SPECIMENOrdering Facility: [facility] Address: [address] [place] [address] Performed By: #### 3 016-3, 55609-4, 93739-1, 2276-4 ####[facility] [id number] [address] [place] D dimer FEU PPP-mCncon 11-30 Fibrin D-dimer FEU (PPP) [Mass/Vol] <190 Normal <500 [facility] Comment on above: Order Comment: Speci men Type: BLOOD SPECIMENOrdering Facility: [facility] Address: [address] [place] [address] Result Comment: Froz en Plasma Aliquot Performed By: #### 4 8065-7 ####[facility] [id number] [place] [address] [place] D-DIMEROrdered By: Jatin Valdes on 11-30-2024 Fibrin D-dimer FEU (PPP) [Mass/Vol] NINF [facility] Comment on above: Frozen Plasma Aliquo t [id number] 11-30-2024 ECG01 Ventricular Rate : 7 8 BPM Atrial Rate : 78 BPM P-R Interval : 142 ms QRS Duration : 70 ms Q-T Interval : 358 ms QTC Calculation(Bazett) : 408 ms Calculated P Wilkinson : 40 degrees Calculated R Wilkinson : -2 degrees Calculated T Wilkinson : 10 degrees NORMAL SINUS RHYTHM LOW VOLTAGE QRS, CONSIDER PULMONARY DISEASE, PERICARDIAL EFFUSION, OR NORMAL VARIANT BORDERLINE ECG NO PREVIOUS ECGS AVAILABLE Confirmed by NAMAN OROPEZA MD ([id number]) on 12/12/2024 3:19:04 PM Also confirmed by NAMAN OROPEZA MD ([id number]) on 12/12/2024 3:20:01 PM NAME : TIFFANIE RAMSEY PID : [id number] : 1960 Gender : Female Race : ORD : Procedure Date : Nov 30 2024 11:03:15 Edit Date : Dec 12 2024 15:26:56 Diagnosis: NORMAL SINUS RHYTHM LOW VOLTAGE QRS, CONSIDER PULMONARY DISEASE, PERICARDIAL EFFUSION, OR NORMAL VARIANT BORDERLINE ECG NO PREVIOUS ECGS AVAILABLE Confirmed by NAMAN OROPEZA MD ([id number]) on 12/12/2024 3:19:04 PM Also confirmed by NAMAN OROPEZA MD ([id number]) on 12/12/2024 3:20:01 PM Test Reason : Location : 672 : [facility] [place] Overread By : NAMAN OROPEZA MD Edited By : NAMAN OROPEZA MD Referred By : TAQUERIA VIEIRA Acquired by : [id number], Normal [facility] Ferritin SerPl-mCncon 2024 Ferritin [Mass/Vol] 148.0 ng/mL Normal 14.7-205.1 [facility] Comment on above: Order Comment: Speci men Type: BLOOD SPECIMENOrdering Facility: [facility] Address: [address] [place] [address] Performed By: #### 3 016-3, 25303-1, 22121-9, 2276-4 ####[facility] [id number] [place] [address] [place] Fibrin D-dimer FEU (PPP) [Ma ss/Vol]Ordered By: Jatin Haji on 11-30-2024 D Dimer Age-related Cutoff 660 ng/mL FEU [facility] 500 ng/mL FEU is the D Dimer cutoff to exclude DVT (deep vein thrombosis) and PE (pulmonary embolism) in patients with a low pre test probability. Supplemental Comment: In patients over 50 years with a low pre test probability for DVT and/or PE, an age adjusted D dimer cutoff can be calculated as [age x 10] ng/mL FEU. For example, a patient of 88 years would have an age adjusted D dimer cutoff of 880 ng/mL FEU. For patients with a suspected DVT, a D dimer level below 500 ng/mL FEU has a negative predictive value of >98.9%, a sensitivity of >96.9% and a specificity of >35.7%. For patients with a suspected PE, a D dimer level below 500 ng/mL FEU has a negative predictive value of >98.5%, and a sensitivity of >96.5% and a specificity of >38.8%. Reference: Nalini M, et al. FARHEEN 2014 311:1117 and Van Evie N, et al. Leigh Int Med 2016 165:253. [facility] Fibrin D-dimer FEU (PPP) [Ma ss/Vol]on 11-30-2024 D DIMER AGE-RELATED CUTOFF 660 ng/mL FEU Normal [facility] Comment on above: Order Comment: Speci men Type: BLOOD SPECIMENOrdering Facility: [facility] Address: [address] [place] [address] Performed By: #### 4 8065-7 ####[facility] [id number] [place] [address] [place] Folate SerPl-mCncon 12-01-19 25 Folate [Mass/Vol] 16.8 ng/mL Normal >4.7 [facility] Comment on above: Order Comment: Speci men Type: BLOOD SPECIMENOrdering Facility: [facility] Address: [address] [place] [address] Performed By: #### 1 988-5, 2284-8, 2132-9 ####[facility] [id number] [place] [address] [place] MANGANESE BLDon 11-30-2024 Manganese (Bld) [Mass/Vol] 6.0 ug/L Normal 4.4-15.2 [facility] Comment on above: Order Comment: Speci sigifredo Type: BLOOD SPECIMENOrdering Facility: [facility] Address: [address] [place] [address] Result Comment: This test was developed, and its performance characteristics determined by the [facility] Department of Pathology and Laboratory Medicine. It has not been cleared or approved by the FDA. The [facility] Department of Pathology and Laboratory Medicine is regulated under CLIA as qualified to perform high-complexity testing. This test is used for clinical purposes. It should not be regarded as investigational or for research. Performed By: #### M AMY, CHROM ####[facility] [id number] [place] [id number] [place] NT-proBNP [facility] 11-30 Natriuretic peptide.B prohormone N-Terminal [Mass/Vol] <36 Normal <125 [facility] Comment on above: Order Comment: Speci men Type: BLOOD SPECIMENOrdering Facility: [facility] Address: [address] [place] [address] Performed By: #### 3 016-3, 36653-8, 99872-1, 2276-4 ####[facility] [id number] [address] OF [facility] OMEGACHECKon 11-30-2024 ARACHIDONIC ACID 12.6 % by wt Normal 8.6-15.6 [facility] Comment on above: Order Comment: Speci men Type: BLOOD SPECIMENOrdering Facility: [facility] Address: [address] [place] [address] Performed By: #### O MEGAC ####[facility] [id number] [address] [place], [place] [id number] ARACHIDONIC ACID/EPA RATIO 35.5 Normal 3.7-40.7 [facility] Comment on above: Order Comment: Speci men Type: BLOOD SPECIMENOrdering Facility: [facility] Address: [address] [place] [address] Result Comment: Rece ived Date: Performed By: #### O MEGAC ####[facility] [id number] [address] [id number] DHA 1.9 % by wt Normal 1.4-5.1 [facility] Comment on above: Order Comment: Speci men Type: BLOOD SPECIMENOrdering Facility: [facility] Address: [address] [place] [address] Performed By: #### O MEGAC ####[facility] [id number] [address] [place] [address] DPA 1.0 % by wt Normal 0.8-1.8 [facility] Comment on above: Order Comment: Speci men Type: BLOOD SPECIMENOrdering Facility: [facility] Address: [address] [place], [place] [address] Performed By: #### O MEGAC ####[facility] [id number] [address] [place] [address] EPA 0.4 % by wt Normal 0.2-2.3 [facility] Comment on above: Order Comment: Speci men Type: BLOOD SPECIMENOrdering Facility: [facility] Address: [address] [place] [address] Performed By: #### O MEGAC ####[facility] [id number] [address] [place] [address] LINOLEIC ACID 27.4 % by wt Normal 18.6-29.5 [facility] Comment on above: Order Comment: Speci men Type: BLOOD SPECIMENOrdering Facility: [facility] Address: [address] [place] [address] Performed By: #### O MEGAC ####[facility] [id number] [address] [place] [address] OMEGA-3 TOTAL 3.2 % by wt Normal [facility] Comment on above: Order Comment: Speci men Type: BLOOD SPECIMENOrdering Facility: [facility] Address: [address] [place] [address] Performed By: #### O MEGAC ####[facility] [id number] [address] [place] [address] OMEGA-6 TOTAL 43.6 % by wt Normal [facility] Comment on above: Order Comment: Speci men Type: BLOOD SPECIMENOrdering Facility: [facility] Address: [address] [place], [place] [address] Result Comment: [facility] measures a number of omega-6 fatty acids with AA and LA being the two most abundant forms reported. Performed By: #### O MEGAC ####[facility] [id number] [address] [address] OMEGA-6/OMEGA-3 RATIO 13.5 Normal 3.7-14.4 [facility] Comment on above: Order Comment: Speci men Type: BLOOD SPECIMENOrdering Facility: [facility] Address: [address] [place] [address] Performed By: #### O MEGAC ####[facility] [id number] [place] [id number] OMEGACHECK 3.2 % by wt Low >5.4 [facility] Comment on above: Order Comment: Speci men Type: BLOOD SPECIMENOrdering Facility: [facility] Address: [address] [place] [address] Result Comment: Incr easing blood levels of long-chain n-3 fatty acids are associated with a lower risk of sudden cardiac (1). Based on the top (75th percentile) and bottom (25th percentile) quartiles of the [facility] reference population, the following relative risk categories were established for OmegaCheck: A cut-off of >=5.5% by wt defines a population at optimal relative risk, 3.8-5.4% by wt defines a population at moderate relative risk, and <=3.7% by wt defines a population at high relative risk of sudden cardiac . The totality of the scientific evidence demonstrates that when consumption of fish oils is limited to 3 g/day or less of EPA and DHA, there is no significant risk for increased bleeding time beyond the normal range. A daily dosage of 1 gram of EPA and DHA lowers the circulating triglycerides by about 7-10% within 2 to 3 weeks. (Reference: 1-Willie luis al. [facility]. 2002; 346: 1358-6112).This test was developed and its analytical performance characteristics have been determined by [facility]. It has not been cleared or approved by the U.S. Food and Drug Administration. This assay has been validated pursuant to the CLIA regulations and is used for clinical purposes. Performed By: #### O MEGAC ####[facility] [id number] [place] [address] TSH SerPl-aCncon 11-30-2024 TSH Qn 0.919 m[IU]/L Normal 0.270-4.200 [facility] Comment on above: Order Comment: Speci men Type: BLOOD SPECIMENOrdering Facility: [facility] Address: [address] [place] [address] Performed By: #### 3 016-3, 99729-2, 25556-1, 2276-4 ####[facility] [id number] [place] [address] [place] Urinalysis complete panel (U )on 11-30-2024 Bacteria LM.HPF (Urine sed) [#/Area] Negative Negative /HPF [facility] Bilirubin Ql (U) Negative Negative [facility] Clarity (Unsp spec) Clear Clear [facility] Color (U) Yellow Yellow [facility] Epithelial cells LM.HPF (Urine sed) [#/Area] None Seen /HPF [facility] Glucose Test strip (U) [Mass/Vol] Negative Negative [facility] Hemoglobin Ql (U) Negative Negative [facility] Hyaline casts (Urine sed) [#/Area] 1-3 /LPF Abnormal 0 /LPF [facility] Interpretation and review of laboratory results Abnormal [facility] Ketones Ql (U) Negative Negative [facility] Leukocyte esterase Test strip Ql (U) Negative Negative [facility] Nitrite Ql (U) Negative Negative [facility] pH (U) 6.5 [pH] NINF - 8.5 [facility] Protein (U) [Mass/Vol] Negative Negative [facility] RBC LM.HPF (Urine sed) [#/Area] 0-2 /HPF 0-2 /HPF [facility] Specific gravity (U) [Rel density] 1.014 1.005 - 1.030 [facility] Urobilinogen Ql (U) 0.2 EU/dL 0.2-1.0 EU/dL [facility] WBC LM.HPF (Urine sed) [#/Area] 0-5 /HPF 0-5 /HPF [facility] This test was develo ped and its performance characteristics determined by [facility]'s [facility] [facility] [place] ([facility]). It has not been cleared or approved by the FDA. [facility] is regulated under CLIA as qualified to perform high-complexity testing. This test is used for clinical purposes. It should not be regarded as investigational or for research. [facility] Bacteria LM.HPF (Urine sed) [#/Area] Negative Normal Negative [facility] Comment on above: Order Comment: Speci men Type: URINE SPECIMEN [facility] Address: [address] [place] [address] Performed By: #### 2 4356-8 #### [facility] CLIA [id number] [address] [place] [address] [place] Bilirubin Ql (U) Negative Normal Negative [facility] Comment on above: Order Comment: Speci men Type: URINE SPECIMEN [facility] Address: [address] [place] [address] Performed By: #### 2 4356-8 #### [facility] CLIA [id number] [address] [place] [address] [place] Clarity (Unsp spec) Clear Normal Clear [facility] Comment on above: Order Comment: Speci men Type: URINE SPECIMEN [facility] Address: [address] [place] [address] Performed By: #### 2 4356-8 #### [facility] CLIA [id number] [address] [place] [address] [place] Color (U) Yellow Normal Yellow [facility] Comment on above: Order Comment: Speci men Type: URINE SPECIMEN [facility] Address: [address] [place] [address] Performed By: #### 2 4356-8 #### [facility] CLIA [id number] [address] [place] [address] [place] Epithelial cells LM.HPF (Urine sed) [#/Area] None Seen Normal [facility] Comment on above: Order Comment: Speci men Type: URINE SPECIMEN [facility] Address: [address] [place] [address] Performed By: #### 2 4356-8 #### [facility] CLIA [id number] [address] [place] [address] [place] Glucose Test strip (U) [Mass/Vol] Negative Normal Negative [facility] Comment on above: Order Comment: Speci men Type: URINE SPECIMEN [facility] Address: [address] [place] [address] Performed By: #### 2 4356-8 #### [facility] CLIA [id number] [address] [place] [address] [place] Hemoglobin Ql (U) Negative Normal Negative [facility] Comment on above: Order Comment: Speci men Type: URINE SPECIMEN [facility] Address: [address] [place] [address] Performed By: #### 2 4356-8 #### [facility] CLIA [id number] [address] [place] [address] [place] Hyaline casts (Urine sed) [#/Area] 1-3 /LPF Abnormal 0 /LPF [facility] Comment on above: Order Comment: Speci men Type: URINE SPECIMEN [facility] Address: [address] [place] [address] Performed By: #### 2 4356-8 #### [facility] CLIA [id number] [address] [place] [address] [place] Ketones Ql (U) Negative Normal Negative [facility] Comment on above: Order Comment: Speci men Type: URINE SPECIMEN [facility] Facility: [facility] Address: [address] [place] [address] Performed By: #### 2 4356-8 #### [facility] CLIA [id number] [address] [place] [address] [place] Leukocyte esterase Test strip Ql (U) Negative Normal Negative [facility] Comment on above: Order Comment: Speci men Type: URINE SPECIMEN Ordering Facility: [facility] Address: [address] [place] [address] Performed By: #### 2 4356-8 #### [facility] CLIA [id number] [address] [place] [address] [place] Nitrite Ql (U) Negative Normal Negative [facility] Comment on above: Order Comment: Speci men Type: URINE SPECIMEN [facility] Facility: [facility] Address: [address] [place] [address] Performed By: #### 2 4356-8 #### [facility] CLIA [id number] [address] [place] [address] [place] pH (U) 6.5 [pH] Normal <8.5 [facility] Comment on above: Order Comment: Speci men Type: URINE SPECIMEN [facility] Facility: [facility] Address: [address] [place] [address] Performed By: #### 2 4356-8 #### [facility] CLIA [id number] [address] [place] [address] [place] Protein (U) [Mass/Vol] Negative Normal Negative [facility] Comment on above: Order Comment: Speci men Type: URINE SPECIMEN [facility]ing Facility: [facility] Address: [address] [place] [address] Performed By: #### 2 4356-8 #### [facility] CLIA [id number] [address] [place] [address] [place] RBC LM.HPF (Urine sed) [#/Area] 0-2 /HPF Normal 0-2 /HPF [facility] Comment on above: Order Comment: Speci men Type: URINE SPECIMEN Ordering Facility: [facility] Address: [address] [place] [address] Performed By: #### 2 4356-8 #### [facility] CLIA [id number] [address] [place] [address] [place] Specific gravity (U) [Rel density] 1.014 Normal 1.005-1.030 [facility] Comment on above: Order Comment: Speci men Type: URINE SPECIMEN [facility]ing Facility: [facility] Address: [address] [place] [address] Performed By: #### 2 4356-8 #### [facility] CLIA [id number] [address] [place] [address] [place] Urobilinogen Ql (U) 0.2 EU/dL Normal 0.2-1.0 EU/dL [facility] Comment on above: Order Comment: Speci men Type: URINE SPECIMEN Ordering Facility: [facility] Address: [address] [place] [address] Performed By: #### 2 4356-8 #### [facility] CLIA [id number] [address] [place] [address] [place] WBC LM.HPF (Urine sed) [#/Area] 0-5 /HPF Normal 0-5 /HPF [facility] Comment on above: Order Comment: Speci men Type: URINE SPECIMEN [facility]ing Facility: [facility] Address: [address] [place] [address] Performed By: #### 2 4356-8 #### [facility] CLIA [id number] [address] [place] [address] [place] Vit B12 SerPl-mCncon 03-2 025 Cobalamin (Vitamin B12) [Mass/Vol] 713 pg/mL Normal 232-1245 [facility] Comment on above: Order Comment: Speci men Type: BLOOD SPECIMENOrdering Facility: [facility] Address: [address] [place] [address] Performed By: #### 1 988-5, 2284-8, 2132-9 ####[facility] [id number] [place] [id number] [place] [facility] XR CHEST 2V FRONTAL/LATon XR CHEST 2V FRONTAL/LAT * * *Final Report* * * DATE OF EXAM: Nov 30 2024 11:46AM M2X 5291 - XR CHEST 2V FRONTAL/LAT / PROCEDURE REASON: Non-toxic multinodular goiter * * * * Physician Interpretation * * * * EXAMINATION: CHEST RADIOGRAPH (2 VIEW FRONTAL and LATERAL) CLINICAL HISTORY: Non-toxic multinodular goiter MQ: XC2_6 EXAM DATE/TIME: 11/30/2024 11:46 AM COMPARISON: No relevant prior studies available. RESULT: Lines, tubes, and devices: None. Lungs and pleura: No consolidation. No lung mass. No pleural effusion. No pneumothorax. Cardiomediastinal silhouette: Normal cardiomediastinal silhouette. Bones and soft tissues: Unremarkable. IMPRESSION: No acute radiographic abnormality. Pre K Teacher: PSCB Transcribe Date/Time: Nov 30 2024 7:46P Dictated by : DALE GOODWIN MD This examination was interpreted and the report reviewed and electronically signed by: DALE GOODWIN MD on Nov 30 2024 7:46PM EST [id number] Normal [facility] XR Chest PA and Lateralon IMPRESSION: No acute radiographic abnormality. Pre K Teacher: PSCB Transcribe Date/Time: Nov 30 2024 7:46P Dictated by : DALE GOODWIN MD This examination was interpreted and the report reviewed and electronically signed by: DALE GOODWIN MD on Nov 30 2024 7:46PM EST DIVISION OF RADIOLOGY * * *Final Report* * * DATE OF EXAM: Nov 30 2024 11:46AM M2X 5291 - XR CHEST 2V FRONTAL/LAT / PROCEDURE REASON: Non-toxic multinodular goiter * * * * Physician Interpretation * * * * EXAMINATION: CHEST RADIOGRAPH (2 VIEW FRONTAL & LATERAL) CLINICAL HISTORY: Non-toxic multinodular goiter MQ: XC2_6 EXAM DATE/TIME: 11/30/2024 11:46 AM COMPARISON: No relevant prior studies available. RESULT: Lines, tubes, and devices: None. Lungs and pleura: No consolidation. No lung mass. No pleural effusion. No pneumothorax. Cardiomediastinal silhouette: Normal cardiomediastinal silhouette. Bones and soft tissues: Unremarkable. DIVISION OF RADIOLOGY Provider, Kailee Cheng - 11/30/2024 * * *Final Report* * * DATE OF EXAM: Nov 30 2024 11:46AM M2X 5291 - XR CHEST 2V FRONTAL/LAT / PROCEDURE REASON: Non-toxic multinodular goiter * * * * Physician Interpretation * * * * EXAMINATION: CHEST RADIOGRAPH (2 VIEW FRONTAL & LATERAL) CLINICAL HISTORY: Non-toxic multinodular goiter MQ: XC2_6 EXAM DATE/TIME: 11/30/2024 11:46 AM COMPARISON: No relevant prior studies available. RESULT: Lines, tubes, and devices: None. Lungs and pleura: No consolidation. No lung mass. No pleural effusion. No pneumothorax. Cardiomediastinal silhouette: Normal cardiomediastinal silhouette. Bones and soft tissues: Unremarkable. IMPRESSION IMPRESSION: No acute radiographic abnormality. Pre K Teacher: PSCB Transcribe Date/Time: Nov 30 2024 7:46P Dictated by : DALE GOODWIN MD This examination was interpreted and the report reviewed and electronically signed by: DALE GOODWIN MD on Nov 30 2024 7:46PM EST [facility] Radiology Study observation (narrative) [facility] XR Chest PA and LateralOrder ed By: Cc Provider on 11-30-2024 [facility] Zinc SerPl-mCncon 11-30-2024 Zinc [Mass/Vol] 80 ug/dL Normal 60-120 [facility] Comment on above: Order Comment: Speci men Type: BLOOD SPECIMENOrdering Facility: [facility] Address: [address] [place] [address] Result Comment: This test was developed, and its performance characteristics determined by the [facility] Department of Pathology and Laboratory Medicine. It has not been cleared or approved by the FDA. The [facility] Department of Pathology and Laboratory Medicine is regulated under CLIA as qualified to perform high-complexity testing. This test is used for clinical purposes. It should not be regarded as investigational or for research. Performed By: #### 5 763-8, COPPER ####[facility] [id number] [facility] [address] STATES OF [facility] Joe 11-07-2024 [facility] -- TIFFANIE RAMSEY ([id number]) 1960 F Date Time Provider Department 11/07/24 TA[facility]IA VIEIRA [facility] During your visit today, we recorded the following information about you: Maria Elena Junior 11/07/2024 8:53 AM Signed Patient calling in to establish care with Dr. Vieira. Patient is scheduled for his first patient access spot in May. Her , Jorge is a current patient with [facility]. Patient is asking if he would make an exception to see her sooner since her is already a patient. Please review and advise. Maria Elena Junior November 07, 2024 8:53 AM Glenny Mercado LPN 11/07/2024 3:57 PM Signed Notified patient that at this time this is the soonest even when I look for a physical slot. Advised her would add to wait list. Allergies As of Date: 11/07/2024 Noted Allergy Reaction ABBY (FEXOFENADINE HCL) 06/24/2005 5 - Intolerance Comments: Hyperactivity CLARITIN (LORATADINE) 06/24/2005 5 - Intolerance Comments: Hyperactivity LIPITOR (ATORVASTATIN) 07/22/2023 8 - GI Upset SULFA (SULFONAMIDE ANTIBIOTICS) 09/12/2004 2 - Rash ZYRTEC (CETIRIZINE HCL) 06/24/2005 5 - Intolerance Comments: Drowsiness Date Reviewed: 09/08/2024 Reviewed by: Rosio Tran MA - Fully Assessed Reason for Visit: Patient Question [0757] Prescriptions as of 11/07/2024 - ergocalciferol 50,000 unit capsule (VITAMIN D2, DRISDOL) Take 1 capsule by mouth one time a week. - fluocinonide (LIDEX) 0.05 % external solution Apply to affected areas of hairloss on the scalp BID M-F - amoxicillin-clavulanate potassium (AUGMENTIN) 875-125 mg per tablet Take 1 tablet by mouth every 12 hours. - methylPREDNISolone (MEDROL DOSE-PACK) 4 mg Dose-Pack take by mouth as directed on inside of package - fluticasone (FLONASE) 50 mcg/actuation nasal spray Use 2 Sprays in each nostril once daily. Problem List As Of Date 11/07/2024 Noted Resolved CENT PERF TYMPANIC MEMB [H72.00] 11/10/2004 Impacted cerumen [H61.20] 12/06/2006 07/13/2023 OTALGIA NOS [H92.09] 12/06/2006 Plantar fasciitis [M72.2] 09/13/2013 Pain in limb [M79.609] 09/13/2013 Vitamin D deficiency [E55.9] 07/13/2023 Diagnosed: 07/13/2023 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 [N89.8] 07/13/2023 Diagnosed: 07/13/2023 Urinary tract infection [N39.0] 07/13/2023 Diagnosed: 07/13/2023 Urge incontinence of urine [N39.41] 07/13/2023 Diagnosed: 07/13/2023 Tendinitis of left rotator cuff [M75.82] 07/13/2023 Diagnosed: 07/13/2023 Menopausal symptom [N95.1] 07/13/2023 Diagnosed: 07/13/2023 Seborrheic dermatitis [L21.9] 07/13/2023 Diagnosed: 07/13/2023 Non-toxic multinodular goiter [E04.2] 07/13/2023 Diagnosed: 07/13/2023 Insomnia [G47.00] 07/13/2023 Diagnosed: 07/13/2023 Impingement syndrome of shoulder region [M75.40]07/13/2023 Diagnosed: 07/13/2023 Hyperlipidemia [E78.5] 07/13/2023 Diagnosed: 07/13/2023 Greater trochanteric bursitis [M70.60] 07/13/2023 Diagnosed: 07/13/2023 Gastroesophageal reflux disease [K21.9] 07/13/2023 Diagnosed: 07/13/2023 Family history of malignant neoplasm of gastroi*07/26/2012 Diagnosed: 07/13/2023 Dysphagia [R13.10] 07/13/2023 Diagnosed: 07/13/2023 Irritable bowel syndrome with constipation [K58*07/13/2023 Diagnosed: 07/13/2023 Cobalamin deficiency [E53.8] 07/13/2023 Diagnosed: 07/13/2023 Benign paroxysmal positional vertigo [H81.10] 07/13/2023 Diagnosed: 07/13/2023 Allergic rhinitis [J30.9] 07/13/2023 Diagnosed: 07/13/2023 Hearing loss [H91.90] 07/13/2023 Diagnosed: 07/13/2023 Pain in left hip [M25.552] 10/01/2023 DDD (degenerative disc disease), lumbar [M51.36*10/01/2023 Encounter Status:Closed by GLENNY MERCADO on 11/07/24 Normal [facility] Gastroenterology Visit Repor ton 10-05-2024 Gastroenterology Visit Report [facility] [address] [place] [address] OFFICE VISIT Date of Service: 10/05/24 MR#: [id number] Acct: [id number] Name: TIFFANIE RAMSEY Rep #: [id number] : 1960 Provider: VERENICE landin Age/Sex: 64/F Location: [facility] Status: Signed Intake Vital Signs 08/31/24 10:11 10/05/24 10:39 Height 5 ft 2 in 5 ft 2 in Weight: 135 lb 8 oz 132 lb BMI 24.7 24.1 BP 140/80 H Position Sitting Pulse 83 Pulse Oximetry (%) 98 Oxygen Delivery Method room air Intake Visit Reasons: Abdominal complaints Animal Attendants And Trainers Required: No Allergies Sulfa (Sulfonamide Antibiotics) (sulfa drugs) Allergy (Verified 08/31/24 10:13) Overheats and gets very tired Medications ???Medication ???Instructions ???Recorded ???Confirmed ???Type fluticasone propionate 50 1 spray intranasal QDAY 08/31/24 0 08/31/24 History mcg/actuation nasal spray,suspension (Flonase Allergy Relief) prednisolone acetate 1 % eye 1 drp ophthalmic (eye) 4X/DAY 08/2208/31/24 History drops,suspension Have you fallen in the past year?: No Nurse's Note: OV 10/05/24 Pt here to establish care with [facility] and has complaints of abdominal pain, gas, bloating, and constipation. Pt has prior hx of colonoscopy. Pt reports she has stress that seems to effect her bowel movements. Pt reports she is very sensitive to taking supplements. She reports when she takes supplements she get abdominal pain. Pt takes miralax to relieve constipation. Takes probiotics but it taking a break from it currently. [facility] Medical History Left shoulder pain Surgical History Hx of cataract extraction History of ear surgery Social History Smoking Status: Never smoker alcohol intake: former HPI HPI Details: TIFFANIE RAMSEY, is a 64 F who presents to the office today for establishment with [facility] for concerns regarding LUQ abdominal pain. She states that the pain is intermittent and travels but seems to settle in that area until a BM gives relief. She states that she's had multiple colonoscopies and states that nothing is ever seen in this area. She reports fatigue and difficulty stomaching her supplements ever since her COVID infection fall of . She reports participating in a clinic for long COVID. She has a chronic sinus infection along with complaints of heartburn, excessive gas, bloating and cramping in lower abdomen. She states that this is the third doctor's office she's to for a diagnosis of her abdominal complaints. She takes a Miralax cookie as needed for BMs, not letting her bowels go longer than 3 days without a BM. She denies difficulty chewing and swallowing, cough, throat clearing, reflux, nausea, emesis, diarrhea, hematochezia, and melena. She denies change in water source and recent travel out of the country. ROS Const Constitutional: Positive for fatigue, headache(s), decreased energy and weight change; No chills or fever(s) Eyes Eyes: No blurry vision or change in vision ENT ENT: Positive for sinus pressure, sinus pain, post nasal drip and headache(s); No abnormal hearing or difficulty swallowing Resp Respiratory: No cough Cardio Cardiology: No chest pain at rest, chest pain with exertion or leg pain with exertion Gastro GI: Positive for abdominal pain, bloating, constipation, heartburn and excessive flatus; No belching, change in bowel habits, change in stool character, coffee ground emesis, cramping, diarrhea, difficulty swallowing, feeling full early, incontinent of stools, Vomiting blood/hemate mesis, Blood in stool, loose stools, Black,tarry stools, nausea/dyspepsia, pain with swallowing, vomiting or other Genitourinary-Female: No difficulty urinating Musc Musculoskeletal: No joint pain or leg pain with exertion Skin Skin: No yellowing of the eye or itchy eyes Neuro Neurology: Positive for dizziness and headache(s); No abnormal hearing Psych Psychiatric: No anxiety, No depression, Positive for difficulty concentrating and Positive for inattentiveness Endo Endocrine: Positive for fatigue and weight change; No cold intolerance or heat intolerance Aller/Imm Allergy/Immunologic: No food intolerance or itchy eyes Manuel/Lymp Hematologic/Lymphatic: No easy bleeding or easy bruising Exam Const General: cooperative, healthy appearing and comfortable Nutritional Appearance: average body habitus Orientation: alert and oriented x3 HENFL Head: normal to inspection Ears: hearing grossly normal bilaterally Nose: external nose normal Face and sinus: normal facial exam and face symmetric Mouth: oral mucosae normal Eyes General: appearance no (more content not included)... Normal [facility] 25(OH)D3 [facility] 2024 25-hydroxyvitamin D3 [Mass/Vol] 25.5 ng/mL Low 31.0-80.0 [facility] Comment on above: Order Comment: Speci men Type: BLOOD SPECIMENOrdering Facility: [facility] Address: [address] [place] [address] [place], [place] [id number] Performed By: #### 1 989-3 ####[facility] [id number] JANESSA COLEMAN [place] [id number] [facility] Joe 09-11-2024 CNPN Telephone ([facility]) -- TIFFANIE RAMSEY ([id number]) 1960 F Date Time Provider Department 09/11/24 SELF [facility] During your visit today, we recorded the following information about you: Maira Neville 09/11/2024 10:46 AM Signed ----- Message from Jose Nelson sent at 09/08/2024 2:07 PM EDT ----- Regarding: Covid recovery Patient has been identified by name and Date of : Yes Patient: Tiffanie Ramsey Date of : 1960 Provider for this encounter : Covid recovery Bello Davenport MD Reason for call: Cvid Was an appointment scheduled: No Reason for requesting visit (RFV/signs and symptoms/diagnosis) : Fatigue, Brain fog, not sleeping , Dizziness Person calling: self Return call to: self Call patient at: at home [phone] (home) [phone] (cell) Payor: MEDICARE / Plan: MEDICARE A AND B / Product Type: Medicare / Maira Persaud 09/11/2024 10:47 AM Signed 1st attempt: LVM to schedule first appt with covid recovery - can be in person or virtual 2nd attempt: Sent MC message with number to schedule Maira Neville 09/13/2024 10:39 AM Signed Patient scheduled with Dr. Vieira on 10/19/2024 Allergies As of Date: 09/11/2024 Noted Allergy Reaction ABBY (FEXOFENADINE HCL) 06/24/2005 5 - Intolerance Comments: Hyperactivity CLARITIN (LORATADINE) 06/24/2005 5 - Intolerance Comments: Hyperactivity LIPITOR (ATORVASTATIN) 07/22/2023 8 - GI Upset SULFA (SULFONAMIDE ANTIBIOTICS) 09/12/2004 2 - Rash ZYRTEC (CETIRIZINE HCL) 06/24/2005 5 - Intolerance Comments: Drowsiness Date Reviewed: 09/08/2024 Reviewed by: Rosio Tran MA - Fully Assessed Prescriptions as of 09/13/2024 - fluocinonide (LIDEX) 0.05 % external solution Apply to affected areas of hairloss on the scalp BID M-F - amoxicillin-clavulanate potassium (AUGMENTIN) 875-125 mg per tablet Take 1 tablet by mouth every 12 hours. - methylPREDNISolone (MEDROL DOSE-PACK) 4 mg Dose-Pack take by mouth as directed on inside of package - fluticasone (FLONASE) 50 mcg/actuation nasal spray Use 2 Sprays in each nostril once daily. Problem List As Of Date 09/11/2024 Noted Resolved CENT PERF TYMPANIC MEMB [H72.00] 11/10/2004 Impacted cerumen [H61.20] 12/06/2006 07/13/2023 OTALGIA NOS [H92.09] 12/06/2006 Plantar fasciitis [M72.2] 09/13/2013 Pain in limb [M79.609] 09/13/2013 Vitamin D deficiency [E55.9] 07/13/2023 Diagnosed: 07/13/2023 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 [N89.8] 07/13/2023 Diagnosed: 07/13/2023 Urinary tract infection [N39.0] 07/13/2023 Diagnosed: 07/13/2023 Urge incontinence of urine [N39.41] 07/13/2023 Diagnosed: 07/13/2023 Tendinitis of left rotator cuff [M75.82] 07/13/2023 Diagnosed: 07/13/2023 Menopausal symptom [N95.1] 07/13/2023 Diagnosed: 07/13/2023 Seborrheic dermatitis [L21.9] 07/13/2023 Diagnosed: 07/13/2023 Non-toxic multinodular goiter [E04.2] 07/13/2023 Diagnosed: 07/13/2023 Insomnia [G47.00] 07/13/2023 Diagnosed: 07/13/2023 Impingement syndrome of shoulder region [M75.40]07/13/2023 Diagnosed: 07/13/2023 Hyperlipidemia [E78.5] 07/13/2023 Diagnosed: 07/13/2023 Greater trochanteric bursitis [M70.60] 07/13/2023 Diagnosed: 07/13/2023 Gastroesophageal reflux disease [K21.9] 07/13/2023 Diagnosed: 07/13/2023 Family history of malignant neoplasm of gastroi*07/26/2012 Diagnosed: 07/13/2023 Dysphagia [R13.10] 07/13/2023 Diagnosed: 07/13/2023 Irritable bowel syndrome with constipation [K58*07/13/2023 Diagnosed: 07/13/2023 Cobalamin deficiency [E53.8] 07/13/2023 Diagnosed: 07/13/2023 Benign paroxysmal positional vertigo [H81.10] 07/13/2023 Diagnosed: 07/13/2023 Allergic rhinitis [J30.9] 07/13/2023 Diagnosed: 07/13/2023 Hearing loss [H91.90] 07/13/2023 Diagnosed: 07/13/2023 Pain in left hip [M25.552] 10/01/2023 DDD (degenerative disc disease), lumbar [M51.36*10/01/2023 Encounter Status:Closed by MAIRA NEVILLE on 09/13/24 [facility] TIFFANIE RAMSEY ([id number]) 1960 F Date Time Provider Department 09/11/24 [facility] During your visit today, we recorded the following information about you: Rosalind Bergeron RN 09/11/2024 11:57 AM Signed Consult 05/20/23 with Yumiko Contreras APRN.[employer] OPERATOR Follow up: scheduled with Dr. Vieira 10/19/24 Call transferred to [facility] nurse, pt returning call to make appointment with [facility]. I started to assist to schedule her, but reviewed chart and she had been seen in [facility] in 2022 for one visit. 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 I reviewed with patient that [facility] is not intended place to be seen for Vaccine reactions, as discussed during initial appointment Pt state she doesn't think her problem is vaccine reactions. She states her immune system was messed up by Covid and that is what is causing her issues with vaccines and symptoms. She states she is at the end of her rope and can't think of anyone else to help her. Offered her appointment to discuss with Dr. Vieira, scheduled for 10/19/24, but also said I would forward chart to review with Dr. Olguin and we would contact if any further questions or if appointment needed to be canceled after review, patient was appreciative. Taqueria Vieira MD 09/11/2024 12:11 PM Signed We can have her see me Allergies As of Date: 09/11/2024 Noted Allergy Reaction ABBY (FEXOFENADINE HCL) 06/24/2005 5 - Intolerance Comments: Hyperactivity CLARITIN (LORATADINE) 06/24/2005 5 - Intolerance Comments: Hyperactivity LIPITOR (ATORVASTATIN) 07/22/2023 8 - GI Upset SULFA (SULFONAMIDE ANTIBIOTICS) 09/12/2004 2 - Rash ZYRTEC (CETIRIZINE HCL) 06/24/2005 5 - Intolerance Comments: Drowsiness Date Reviewed: 09/08/2024 Reviewed by: Rosio Tran MA - Fully Assessed Reason for Visit: Appointment [186] Cmt: [facility] follow up Prescriptions as of 09/11/2024 - fluocinonide (LIDEX) 0.05 % external solution Apply to affected areas of hairloss on the scalp BID M-F - amoxicillin-clavulanate potassium (AUGMENTIN) 875-125 mg per tablet Take 1 tablet by mouth every 12 hours. - methylPREDNISolone (MEDROL DOSE-PACK) 4 mg Dose-Pack take by mouth as directed on inside of package - fluticasone (FLONASE) 50 mcg/actuation nasal spray Use 2 Sprays in each nostril once daily. Problem List As Of Date 09/11/2024 Noted Resolved CENT PERF TYMPANIC MEMB [H72.00] 11/10/2004 Impacted cerumen [H61.20] 12/06/2006 07/13/2023 OTALGIA NOS [H92.09] 12/06/2006 Plantar fasciitis [M72.2] 09/13/2013 Pain in limb [M79.609] 09/13/2013 Vitamin D deficiency [E55.9] 07/13/2023 Diagnosed: 07/13/2023 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 [N89.8] 07/13/2023 Diagnosed: 07/13/2023 Urinary tract infection [N39.0] 07/13/2023 Diagnosed: 07/13/2023 Urge incontinence of urine [N39.41] 07/13/2023 Diagnosed: 07/13/2023 Tendinitis of left rotator cuff [M75.82] 07/13/2023 Diagnosed: 07/13/2023 Menopausal symptom [N95.1] 07/13/2023 Diagnosed: 07/13/2023 Seborrheic dermatitis [L21.9] 07/13/2023 Diagnosed: 07/13/2023 Non-toxic multinodular goiter [E04.2] 07/13/2023 Diagnosed: 07/13/2023 Insomnia [G47.00] 07/13/2023 Diagnosed: 07/13/2023 Impingement syndrome of shoulder region [M75.40]07/13/2023 Diagnosed: 07/13/2023 Hyperlipidemia [E78.5] 07/13/2023 Diagnosed: 07/13/2023 Greater trochanteric bursitis [M70.60] 07/13/2023 Diagnosed: 07/13/2023 Gastroesophageal reflux disease [K21.9] 07/13/2023 Diagnosed: 07/13/2023 Family history of malignant neoplasm of gastroi*07/26/2012 Diagnosed: 07/13/2023 Dysphagia [R13.10] 07/13/2023 Diagnosed: 07/13/2023 Irritable bowel syndrome with constipation [K58*07/13/2023 Diagnosed: 07/13/2023 Cobalamin deficiency [E53.8] 07/13/2023 Diagnosed: 07/13/2023 Benign paroxysmal positional vertigo [H81.10] 07/13/2023 Diagnosed: 07/13/2023 Allergic rhinitis [J30.9] 07/13/2023 Diagnosed: 07/13/2023 Hearing loss [H91.90] 07/13/2023 Diagnosed: 07/13/2023 Pain in left hip [M25.552] 10/01/2023 DDD (degenerative disc disease), lumbar [M51.36*10/01/2023 Encounter Status:Closed by ROSALIND BERGERON on 09/11/24 [facility] CNOVon 09-08-2024 CNOV Office Visit (AMDERM ) -- TIFFANIE RAMSEY ([id number]) 1960 F Date Time Provider Department 09/08/24 10:45 AM OZZIE LOUIS AMDERM During your visit today, we recorded the following information about you: Ozzie oLuis MD 09/08/2024 11:19 AM Signed CC: Patient presents with: Hair/Scalp Problem Last derm visit 06/21/2023 with TIFFANI Partida HPI: 64 year old female patient here for: Here for believed to be AA Located on the right side of scalp Notes a 50 cent piece bald spot Had this happen 25+ years ago +life stress (caring for elderly mother) caring for ill Washing with Nexxus shampoo Says she always has low vit D, hard to tolerate pills Derm History: Denies personal history of skin cancer Allergies: ALLERGIES Allergen Reactions Abby [Fexofenadi* Intolerance Hyperactivity Claritin [Loratadin* Intolerance Hyperactivity Lipitor [Atorvastat* GI Upset Sulfa (Sulfonamide * Rash Zyrtec [Cetirizine * Intolerance Drowsiness Medications: Current Outpatient Medications Medication Sig Dispense Refill amoxicillin-clavulanate potassium (AUGMENTIN) 875-125 mg per tablet Take 1 tablet by mouth every 12 hours. methylPREDNISolone (MEDROL DOSE-PACK) 4 mg Dose-Pack take by mouth as directed on inside of package fluticasone (FLONASE) 50 mcg/actuation nasal spray Use 2 Sprays in each nostril once daily. 3 Bottle 3 No current facility-administered medications for this visit. FH: +NMSC in Mother SH: suffers from long covid, PHYSICAL EXAM: Skin examination including scalp Skin findings: Right parietal scalp with 1, coin shaped alopectic patch; about the size of a quarter ASSESSMENT/PLAN: Alopecia Areata, right parietal scalp, 1 patches total Chronic, not at treatment goal -discussed prognosis and etiology, patients questions/concerns addressed -discussed intralesional steroids as most effective treatment option, discussed risks (pain, bleeding, thinning or discoloration of skin), benefits and alternatives -No evidence thyroid disease on ROS -Verbal consent obtained -injected 1 affected area with 0.5mL total of 10mg/mL of triamcinolone, tolerated well -Start Fluocinonide 0.05% soln, apply twice daily to affected areas on the scalp M-F when active then stop, discussed risks including skin discoloration and thinning, advised to AVOID on breasts, thighs, underarms, groin -Vit D hydrox ordered today for baseline RTC 8 weeks f/u The patient is seen and examined by Dr. Louis and the following reflects his/her service. Scribed by Rosio Tran MA I agree with the Chief Complaint, ROS, and Past Histories independently gathered by the clinical software support specialist and the remaining scribed note accurately describes my personal service to and examination of the patient. Ozzie Yanes MD, MD 09/20/2024 5:12 PM Signed Addended by: OZZIE LOUIS on: 09/20/2024 05:12 PM Modules accepted: Orders Allergies As of Date: 09/08/2024 Noted Allergy Reaction ABBY (FEXOFENADINE HCL) 06/24/2005 5 - Intolerance Comments: Hyperactivity CLARITIN (LORATADINE) 06/24/2005 5 - Intolerance Comments: Hyperactivity LIPITOR (ATORVASTATIN) 07/22/2023 8 - GI Upset SULFA (SULFONAMIDE ANTIBIOTICS) 09/12/2004 2 - Rash ZYRTEC (CETIRIZINE HCL) 06/24/2005 5 - Intolerance Comments: Drowsiness Date Reviewed: 09/08/2024 Reviewed by: Rosio Tran MA - Fully Assessed Reason for Visit: Hair/Scalp Problem [51] Primary Visit Diagnosis:Alopecia areata [L63.9] Other Visit Diagnosis:Vitamin D deficiency [E55.9] Order(s):VITAMIN D 25 HYDROXY [SQVITD] Order #: [id number] FUTURE fluocinonide (LIDEX) 0.05 % external solutionApply to affected areas of hairloss on the scalp BID M-FDisp: 60 mLRfl: 1 [] triamcinolone acetonide 5 mg injection (KeNALog 10)Disp: Rfl: Prescriptions as of 09/20/2024 - fluocinonide (LIDEX) 0.05 % external solution Apply to affected areas of hairloss on the scalp BID M-F - amoxicillin-clavulanate potassium (AUGMENTIN) 875-125 mg per tablet Take 1 tablet by mouth every 12 hours. - methylPREDNISolone (MEDROL DOSE-PACK) 4 mg Dose-Pack take by mouth as directed on inside of package - fluticasone (FLONASE) 50 mcg/actuation nasal spray Use 2 Sprays in each nostril once daily. Problem List As Of Date 09/08/2024 Noted Resolved CENT PERF TYMPANIC MEMB [H72.00] 11/10/2004 Impacted cerumen [H61.20] 12/06/2006 07/13/2023 OTALGIA NOS [H92.09] 12/06/2006 Plantar fasciitis [M72.2] 09/13/2013 Pain in limb [M79.609] 09/13/2013 Vitamin D deficiency [E55.9] 07/13/2023 Diagnosed: 07/13/2023 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 [N89.8] 07/13/2023 Diagnosed: 07/13/2023 Urinary tract infection [N39.0] 07/13/2023 Diagnosed: 07/13/2023 Urge incontinence of urine [N39.41] 07/13/2023 Diagnosed: 07/13/2023 Tendinitis of left rotator cuff [M75.82] 07/13/2023 (more content not included)... Normal [facility] Orthopedic Visit Reporton Orthopedic Visit Report [facility] [address] [place] [id number] OFFICE VISIT Date of Service: 08/31/24 MR#: [id number] Acct: [id number] Name: TIFFANIE RAMSEY Rep #: [id number] : 1960 Provider: Dr. Shan rich MD Age/Sex: 64/F Location: [email or web address] Status: Signed with Addenda ADDENDUM by THANIA Butcher on 08/31/24 at 1125 Office Procedure Documentation entered by Dorie Butcher MA 08/31/24 11:25: Ortho Injections Injections Yes Subacromial Injection Left Is this a patient provided medication?: No Details: Obtained consent for injection. Under sterile conditions, injected the patients left shoulder with 2cc Kenalog, 4cc Bupivacaine. The patient tolerated the injection well without any noted complication. Patient should call our office if redness develops, pain worsens or if they have any concerns. Office Meds Kenalog 40 mg/mL suspension for injection Performing Provider: Shan Bolaños MD Performing Location: [facility] Administered by: Shan Bolaños MD on 08/31/24 11:23 Dose Route Admin Location Dispensed Lot Number Expiration Date NDC Man ufacturer 40 mg intra-articular Left shoulder 1 mL [id number] 09/28/25 5061-7206-09 [facility] Date cc: * Signed Intake Vital Signs 08/31/24 10:11 Height 5 ft 2 in Weight: 135 lb 8 oz BMI 24.7 Intake Visit Reasons: LEFT SHOULDER Accompanied by: Is patient in pain?: Yes Allergies Sulfa (Sulfonamide Antibiotics) (sulfa drugs) Allergy (Verified 08/31/24 10:13) Overheats and gets very tired Medications ???Medication ???Instructions ???Recorded ???Confirmed ???Type Lactobacillus 25 billion cap PO 08/31/24 08/31/24 History cell-Bifido 25 billion matj-PAP-ybsqd capsule fluticasone propionate 50 1 spray intranasal QDAY 08/31/24 0 08/31/24 History mcg/actuation nasal spray,suspension (Flonase Allergy Relief) prednisolone acetate 1 % eye 1 drp ophthalmic (eye) 4X/DAY 08/2208/31/24 History drops,suspension Have you fallen in the past year?: No PFSH Medical History (Updated 08/31/24 @ 09:03 by Shan Bolaños MD) Left shoulder pain Surgical History (Updated 08/31/24 @ 10:18 by Sally Salinas) Hx of cataract extraction History of ear surgery Social History (Updated 08/31/24 @ 10:16 by Sally Salinas) Smoking Status: Never smoker alcohol intake: former HPI LEFT SHOULDER Details: This documentation accurately reflects the service provided and the decisions made by me, Dr. Shan Bolaños MD 08/31/24 0903. Part of today???s visit was documented by [ ], acting as scribe. TIFFANIE RAMSEY is a 64 year old F here today for L shoulder pain. had cortisone injection 1 yr ago that helped, interested in another. Patient has a few years now shoulder pain mostly located lateral aspect of the arm going down the arm not keeping her up at night but worse with lifting. Her had a heart attack about 6 months ago still waiting on pacemaker has to do quite a bit of heavy lifting carrying the groceries and things like that that seems to aggravate the shoulders. Inyog-xihw-jmkrpqrl little soreness on both the shoulders but the left side is definitely worse and there is some catching there. Supplemental Info X-rays 4 views left shoulder demonstrate no acute abnormalities. Moderate AC joint arthrosis glenohumeral joint space well-maintained. Small cyst formation of the greater tuberosity. Coding Level of Care Code Attention Deonna Diagnoses Left shoulder pain M25.512 Comment 22056 and cpt inject major joint Assessment and Plan Assessment and Plan (1) Left shoulder pain: Status: Acute Plan: TIFFANIE RMASEY is a 64 year old F here today for L shoulder pain. Most likely impingement syndrome/bursitis rotator cuff tendinitis of the shoulder though could have a tear given that this patient has been having shoulder pain for a few years now. Had a good response to injection in the past wants to start there. We performed that for the patient to follow-up in 6 weeks time if this is no better or worse the next step would be an MRI. Pros and cons risks and benefits of left shoulder subacromial steroid injection were discussed. Patient wished to proceed. Risks include but not limited to infection, pain, stiffness, damage to other structures, neurovascular injury, wear further tear of the tendon and other structures such as the skin, bleeding, allergic reaction, acute flare reaction and other risks. Obtained informed consent for injection. Posterior lateral aspect of the shoulder was prepped with chlorhexidine solution allowed to thoroughly dry over 3 minutes. Used Deep Driver (more content not included)... Normal [facility] Shoulder min 2 Viewson 08-31 Shoulder min 2 Views [facility] [address] [place] [id number] Shoulder min 2 Views MR#: [id number] Acct: [id number] Name: TIFFANIE RAMSEY Rep #: [id number] : 1960 F 64 From: Km Hoover MD PCP: Dr. Bello Davenport MD Status: DEP AMB Study: Shoulder min 2 Views Date of Exam: 08/31/24 Exam# [id number] Ordering Dr: Shan Bolaños MD PROCEDURE: SHOULDER MIN 2 VIEWS 08/31/2024 REASON FOR EXAM: PAIN, NO INJURY TECHNIQUE: Four views left shoulder COMPARISON: None available FINDINGS: No fracture or dislocation. The joint spaces appear within limits. Visualized left lung appears clear. RAD/Shoulder min 2 Views IMPRESSION: No fracture or dislocation. Reading Location: [id number] CC: Dr. Shan Bolaños MD; Dr. Bello Davenport MD Pre K Teacher: Signed Normal [facility] Absolute neutrophil countOrd ered By: Bello Davenport on 08-11-2024 Neutrophils (Bld) [#/Vol] 3.7 10*3/uL 2.0-7.7 [facility] Anion gap in Serum or Plasma Ordered By: Bello Issac on 08-11-2024 Anion gap [Moles/Vol] 10 mmol/L 5-15 [facility] BUN/creatinine ratioOrdered By: Bello Davenport on 08-11-2024 Urea nitrogen/Creatinine [Mass ratio] 20.0 mg/mg 10-20 [facility] Basophil percentageOrdered B y: Bello Issac on 08-11-2024 Basophils/100 WBC (Bld) 1.4 % High 0-1 [facility] Bilirubin, totalOrdered By: Bello Davenport on 08-11-2024 Bilirubin [Mass/Vol] 0.74 mg/dL 0.00-1.30 [facility] CBC W/Diff, Automatedon 07-29 Absolute Lymph 1.17 X10 3/uL Normal 0.83-4.51 [facility] Comment on above: Performed By: #### L 506.1001, L500.4050, L501.9520, L100.0100 ####[facility] [address] [place], [address] Absolute Neut 3.7 X10 3/uL Normal 2.0-7.7 [facility] Comment on above: Performed By: #### L 506.1001, L500.4050, L501.9520, L100.0100 ####[facility] [address] [place], [address] Basophils/100 WBC (Bld) 1.4 % High 0-1 [facility] Comment on above: Performed By: #### L 506.1001, L500.4050, L501.9520, L100.0100 ####[facility] [address] [place], [address] Eosinophils/100 WBC (Bld) 3.3 % Normal 0-5 [facility] Comment on above: Performed By: #### L 506.1001, L500.4050, L501.9520, L100.0100 ####[facility] [address] [place], [address] Erythrocyte distribution width (RBC) [Ratio] 13.8 % Normal 11.6-14.6 [facility] Comment on above: Performed By: #### L 506.1001, L500.4050, L501.9520, L100.0100 ####[facility] [address] [place], [address] Hematocrit (Bld) [Volume fraction] 43.9 % Normal 37-47 [facility] Comment on above: Performed By: #### L 506.1001, L500.4050, L501.9520, L100.0100 ####[facility] [address] [place], [address] Hemoglobin (Bld) [Mass/Vol] 14.7 g/dL Normal 12.0-15.0 [facility] Comment on above: Performed By: #### L 506.1001, L500.4050, L501.9520, L100.0100 ####[facility] [address] [place], [address] IG% 0.500 Normal 0.0-0.9 [facility] Comment on above: Result Comment: IG% - Immature Granulocytes (promyelocytes, myelocytes and metamyelocytes) > 1% indicates that a LEFT SHIFT is Present. Performed By: #### L 506.1001, L500.4050, L501.9520, L100.0100 ####[facility] [address] [place], [address] Lymphocytes/100 WBC (Bld) 20.5 % Normal 19-41 [facility] Comment on above: Performed By: #### L 506.1001, L500.4050, L501.9520, L100.0100 ####[facility] [address] [place], [address] MCH (RBC) [Entitic mass] 29.0 pg Normal 27.0-32.0 [facility] Comment on above: Performed By: #### L 506.1001, L500.4050, L501.9520, L100.0100 ####[facility] [address] [place], [address] MCHC (RBC) [Mass/Vol] 33.5 g/dL Normal 32-36 [facility] Comment on above: Performed By: #### L 506.1001, L500.4050, L501.9520, L100.0100 ####[facility] [address] [place], [address] MCV (RBC) [Entitic vol] 86.6 fL Normal 81-99 [facility] Comment on above: Performed By: #### L 506.1001, L500.4050, L501.9520, L100.0100 ####[facility] [address] [place], [address] Monocytes/100 WBC (Bld) 9.1 % Normal 0-10 [facility] Comment on above: Performed By: #### L 506.1001, L500.4050, L501.9520, L100.0100 ####[facility] [address] [place], [address] Neutrophils/100 WBC (Bld) 65.2 % Normal 47-70 [facility] Comment on above: Performed By: #### L 506.1001, L500.4050, L501.9520, L100.0100 ####[facility] [address] [place], [address] Nucleated RBC (Bld) [#/Vol] 0 10*3/uL Normal 0-5 [facility] Comment on above: Performed By: #### L 506.1001, L500.4050, L501.9520, L100.0100 ####[facility] [address] [place], [address] Platelet mean volume (Bld) [Entitic vol] 9.5 fL Normal 6.2-12.0 [facility] Comment on above: Performed By: #### L 506.1001, L500.4050, L501.9520, L100.0100 ####[facility] [address] [place], [address] Platelets (Bld) [#/Vol] 296 10*3/uL Normal 150-450 [facility] Comment on above: Performed By: #### L 506.1001, L500.4050, L501.9520, L100.0100 ####[facility] [address] [place], [address] RBC (Bld) [#/Vol] 5.07 10*6/uL Normal 4.2-5.4 [facility] Comment on above: Performed By: #### L 506.1001, L500.4050, L501.9520, L100.0100 ####[facility] [address] [place], [address] RDW SD 43.9 fl Normal 35.1-43.9 [facility] Comment on above: Performed By: #### L 506.1001, L500.4050, L501.9520, L100.0100 ####[facility] [address] [place], [address] WBC (Bld) [#/Vol] 5.7 10*3/uL Normal 4.4-11.0 [facility] Comment on above: Performed By: #### L 506.1001, L500.4050, L501.9520, L100.0100 ####[facility] [address] [place], [address] Carbon dioxide, total [Moles /volume] in Central venous bloodOrdered By: Bello Davenport on 08-11-2024 CO2 [Moles/Vol] 25.9 mmol/L 21.0-32.0 [facility] Chloride assayOrdered By: Johnathan Davenport on 08-11-2024 Chloride [Moles/Vol] 104 mmol/L 98-108 [facility] Comprehensive Metabolic Prof ilon 08-11-2024 Albumin [Mass/Vol] 4.3 g/dL Normal 3.4-4.8 [facility] Comment on above: Performed By: #### L 506.1001, L500.4050, L501.9520, L100.0100 ####[facility] [address] [place], [address] Albumin/Globulin [Mass ratio] 1.4 {ratio} Normal 0.9-2.4 [facility] Comment on above: Performed By: #### L 506.1001, L500.4050, L501.9520, L100.0100 ####[facility] [address] [place], [address] ALK PHOS 62 U/L Normal 35-104 [facility] Comment on above: Performed By: #### L 506.1001, L500.4050, L501.9520, L100.0100 ####[facility] [address] [place], [address] ALT [Catalytic activity/Vol] 19 U/L Normal <=34 [facility] Comment on above: Performed By: #### L 506.1001, L500.4050, L501.9520, L100.0100 ####[facility] [address] [place], [address] AST [Catalytic activity/Vol] 22 U/L Normal <=31 [facility] Comment on above: Performed By: #### L 506.1001, L500.4050, L501.9520, L100.0100 ####[facility] [address] [place], [address] Bilirubin [Mass/Vol] 0.74 mg/dL Normal 0.00-1.30 [facility] Comment on above: Performed By: #### L 506.1001, L500.4050, L501.9520, L100.0100 ####[facility] [address] [place], [address] BUN/CRE 20.0 RATIO Normal 10-20 [facility] Comment on above: Performed By: #### L 506.1001, L500.4050, L501.9520, L100.0100 ####[facility] [address] [place], [address] Calcium [Mass/Vol] 9.9 mg/dL Normal 7.6-11.0 [facility] Comment on above: Performed By: #### L 506.1001, L500.4050, L501.9520, L100.0100 ####[facility] [address] [place], [address] Chloride [Moles/Vol] 104 mmol/L Normal 98-108 [facility] Comment on above: Performed By: #### L 506.1001, L500.4050, L501.9520, L100.0100 ####[facility] [address] [place], [address] CO2 [Moles/Vol] 25.9 mmol/L Normal 21.0-32.0 [facility] Comment on above: Performed By: #### L 506.1001, L500.4050, L501.9520, L100.0100 ####[facility] [address] [place], [address] Creatinine [Mass/Vol] 0.75 mg/dL Normal 0.70-1.20 [facility] Comment on above: Performed By: #### L 506.1001, L500.4050, L501.9520, L100.0100 ####[facility] [address] [place], [address] GAP 10 Normal 5-15 [facility] Comment on above: Performed By: #### L 506.1001, L500.4050, L501.9520, L100.0100 ####[facility] [address] [place], [address] GFR/1.73 sq M.predicted among non-blacks MDRD (S/P/Bld) [Vol rate/Area] 88 mL/min/{1.73_m2} Normal >60 [facility] Comment on above: Result Comment: mL/m in/1.73m2 CKD-EPI Creatinine Equation (2020) Performed By: #### L 506.1001, L500.4050, L501.9520, L100.0100 ####[facility] [address] [place], [address] Globulin (S) [Mass/Vol] 3.1 g/dL Normal 2.2-4.2 [facility] Comment on above: Performed By: #### L 506.1001, L500.4050, L501.9520, L100.0100 ####[facility] [address] [place], [address] Glucose [Mass/Vol] 88 mg/dL Normal 70-99 [facility] Comment on above: Performed By: #### L 506.1001, L500.4050, L501.9520, L100.0100 ####[facility] [address] [place], [address] Potassium [Moles/Vol] 4.4 mmol/L Normal 3.3-5.1 [facility] Comment on above: Performed By: #### L 506.1001, L500.4050, L501.9520, L100.0100 ####[facility] [address] [place], [address] Sodium [Moles/Vol] 140 mmol/L Normal 133-145 [facility] Comment on above: Performed By: #### L 506.1001, L500.4050, L501.9520, L100.0100 ####[facility] [address] [place], [address] T PROT 7.5 g/dL Normal 5.9-8.4 [facility] Comment on above: Performed By: #### L 506.1001, L500.4050, L501.9520, L100.0100 ####[facility] [address] [place], [address] Urea nitrogen [Mass/Vol] 15 mg/dL Normal 4-19 [facility] Comment on above: Performed By: #### L 506.1001, L500.4050, L501.9520, L100.0100 ####[facility] [address] [place], [address] Eosinophil percentageOrdered By: Bello Davenport on 08-11-2024 Eosinophils/100 WBC (Bld) 3.3 % 0-5 [facility] Erythrocyte distribution wid th ratioOrdered By: Bello Davenprot on 08-11-2024 Erythrocyte distribution width (RBC) [Ratio] 13.8 % 11.6-14.6 [facility] Erythrocyte distribution wid th standard deviationOrdered By: Bello Davenport on 08-11-2024 Erythrocyte distribution width (RBC) [Entitic vol] 43.9 fL 35.1-43.9 [facility] GFR/1.73 sq M.predicted lloyd g non-blacks MDRD (S/P/Bld) [Vol rate/Area]Ordered By: Bello Davenport on 08-11-2024 Estimated GFR (MDRD) Non-Af Amer 88 >60 [facility] Comment on above: mL/min/1.73m2 CKD-EP I Creatinine Equation (2020) Hematocrit Auto (Bld) [Volum e fraction]Ordered By: Bello Davenport on 08-11-2024 Hematocrit (Bld) [Volume fraction] 43.9 % 37-47 [facility] Hemoglobin measurementOrdere d By: Bello Davenport on 08-11-2024 Hemoglobin (Bld) [Mass/Vol] 14.7 g/dL 12.0-15.0 [facility] Immature granulocytes/100 WB C Auto (Bld)Ordered By: Bello Davenport on 08-11-2024 Immature granulocytes/100 WBC (Bld) 0.500 % 0.0-0.9 [facility] Comment on above: IG% - Immature Granu locytes (promyelocytes, myelocytes and metamyelocytes) > 1% indicates that a LEFT SHIFT is Present. L506.1001on 08-11-2024 Vitamin D 25-OH 23.7 ng/mL Low 30-100 [facility] Comment on above: Result Comment: Jennifer min D Status Deficiency: <20 ng/mL (50nmol/L) Insufficiency: 20-30 ng/mL (50-75 nmol/L) Sufficiency: 30-100 ng/mL (75-250 nmol/L) Toxicity: >100 ng/mL (>250 nmol/L) Performed By: #### L 506.1001, L500.4050, L501.9520, L100.0100 ####[facility] [id number] [place], [place], [address] Laboratory - Chemistry and C hemistry - challengeOrdered By: Bello Davenport on 08-11-2024 AST [Catalytic activity/Vol] 22 U/L <32 [facility] Lymphocytes Auto (Unsp spec) [#/Vol]Ordered By: Bello Davenport on 08-11-2024 Lymphocytes (Bld) [#/Vol] 1.17 10*3/uL 0.83-4.51 [facility] Lymphocytes/100 WBC Auto (Un sp spec)Ordered By: Bello Davenport on 08-11-2024 Lymphocytes/100 WBC (Bld) 20.5 % 19-41 [facility] MCV (mean corpuscular volume ) determinationOrdered By: Bello Davenport on 08-11-2024 MCV (RBC) [Entitic vol] 86.6 fL 81-99 [facility] Mean corpuscular hemoglobin (MCH) determinationOrdered By: Bello Davenport on 08-11-2024 MCH (RBC) [Entitic mass] 29.0 pg 27.0-32.0 [facility] Mean corpuscular hemoglobin concentration (MCHC) determinationOrdered By: Bello Davenport on 08-11-2024 MCHC (RBC) [Mass/Vol] 33.5 g/dL 32-36 [facility] Mean platelet volume determi nationOrdered By: Bello Davenport on 08-11-2024 Platelet mean volume (Bld) [Entitic vol] 9.5 fL 6.2-12.0 [facility] Monocyte percentageOrdered B y: Bello Davenport on 08-11-2024 Monocytes/100 WBC (Bld) 9.1 % 0-10 [facility] Neutrophil percentageOrdered By: Bello Davenport on 08-11-2024 Neutrophils/100 WBC (Bld) 65.2 % 47-70 [facility] Nucleated red blood cell per centageOrdered By: Bello Davenport on 08-11-2024 Nucleated RBC/100 WBC (Bld) [Ratio] 0 % 0-5 [facility] Platelet countOrdered By: Johnathan Davenport on 08-11-2024 Platelets (Bld) [#/Vol] 296 10*3/uL 150-450 [facility] Potassium (Unsp spec) [Mass/ Vol]Ordered By: Bello Davenport on 08-11-2024 Potassium [Moles/Vol] 4.4 mmol/L 3.3-5.1 [facility] RBC Auto (Bld) [#/Vol]Ordere d By: Bello Davenport on 08-11-2024 RBC (Bld) [#/Vol] 5.07 10*6/uL 4.2-5.4 [facility] Serum creatinine measurement (mass/volume)Ordered By: Bello Davenport on 08-11-2024 Creatinine [Mass/Vol] 0.75 mg/dL 0.70-1.20 [facility] Serum globulin measurementOr dered By: Bello Davenport on 08-11-2024 Globulin (S) [Mass/Vol] 3.1 g/dL 2.2-4.2 [facility] Serum glucose measurement (m ass/volume)Ordered By: Bello Davenport on 08-11-2024 Glucose [Mass/Vol] 88 mg/dL 70-99 [facility] Serum or plasma alanine armstrong otransferase (ALT) measurementOrdered By: Bello Davenport on 08-11-2024 ALT [Catalytic activity/Vol] 19 U/L <35 [facility] Serum or plasma albumin bianca urement (mass/volume)Ordered By: Bello Davenport on 08-11-2024 Albumin [Mass/Vol] 4.3 g/dL 3.4-4.8 [facility] Serum or plasma albumin/glob ulin mass ratioOrdered By: Bello Davenport on 08-11-2024 Albumin/Globulin [Mass ratio] 1.4 {ratio} 0.9-2.4 [facility] Serum or plasma alkaline zuhair sphatase measurementOrdered By: Bello Davenport 08-11-2024 ALP [Catalytic activity/Vol] 62 U/L 35-104 [facility] Serum or plasma calcium bianca urement (mass/volume)Ordered By: Bello Davenport 08-11-2024 Calcium [Mass/Vol] 9.9 mg/dL 7.6-11.0 [facility] Serum or plasma urea nitroge n measurement (mass/volume)Ordered By: Bello Davenport on 08-11-2024 Urea nitrogen [Mass/Vol] 15 mg/dL 4-19 [facility] Sodium levelOrdered By: Bello Davenport on 08-11-2024 Sodium [Moles/Vol] 140 mmol/L 133-145 [facility] TSH DL <= 0.005 mIU/L QnOrde red By: Bello Davenport on 08-11-2024 Thyroid Stimulating Hormone (TSH) 0.902 uIU/mL 0.300-4.200 [facility] Thyroid Stim Hormone (TSH)on 08-11-2024 TSH 0.902 uIU/mL Normal 0.300-4.200 [facility] Comment on above: Performed By: #### L 506.1001, L500.4050, L501.9520, L100.0100 ####[facility] [id number] [place], [address] Total proteinOrdered By: Bello Davenport on 08-11-2024 Protein [Mass/Vol] 7.5 g/dL 5.9-8.4 [facility] Vitamin D, 25-hydroxyOrdered By: Bello Davenport on 08-11-2024 Vitamin D 25-Hydroxy 23.7 ng/mL Low 30-100 [facility] Comment on above: Vitamin D StatusDefi ciency: <20 ng/mL (50nmol/L)Insufficiency: 20-30 ng/mL (50-75 nmol/L)Sufficiency: 30-100 ng/mL (75-250 nmol/L)Toxicity: >100 ng/mL (>250 nmol/L) White blood cell (WBC) count Ordered By: Bello Davenport on 08-11-2024 WBC (Bld) [#/Vol] 5.7 10*3/uL 4.4-11.0 [facility] ED NOTEon 07-02-2024 ED NOTE HNO ID: [id number] Author: MADINA ROLLINS RN Service: Emergency Medicine Author Type: Registered Nurse Type: ED Notes Filed: 07/02/2024 13:25 Note Text: Patient is alert and oriented, denies any questions/concerns at this time. Patient verbalizes understanding of d/c instructions and follow up care. Patient ambulates from department at this time. Normal [facility] ED NOTE HNO ID: [id number] Author: MADINA ROLLINS RN Service: Emergency Medicine Author Type: Registered Nurse Type: ED Notes Filed: 07/02/2024 11:48 Note Text: Pt reports finger laceration from cutting food. Pt is alert and oriented ambulates to room 12 Normal [facility] ED PROV NOTEon 07-02-2024 ED PROV NOTE HNO ID: [id number] Author: JAYME INGRAM MD Service: Emergency Medicine Author Type: Physician Type: ED Provider Notes Filed: 07/02/2024 17:39 Note Text: ED Provider Note Patient Name: Tiffanie Ramsey : 1960 SERVICE DATE: 07/02/24 History Patient presents with: Laceration Tiffanie Ramsey is a 64 year old female with a past history of recent URI who presents with a right thumb laceration following injury. Bleeding is controlled. Patient's tetanus immunization is not up to date. - Context: There is not a concern for retained foreign body. Patient has bandaged laceration - Symptoms began this afternoon. Onset was sudden and symptoms are constant. - Severity: mild - Symptoms are associated with: Nothing - Symptoms are not associated with: numbeness and tingling weakness Lacerated the volar aspect of the right thumb trying to take the blade out of the cook seafood. No other injuries. PAST MEDICAL HISTORY Diagnosis Date - COVID PAST SURGICAL HISTORY Procedure Laterality Date - EAR SURGERY HX Right FAMILY HISTORY Problem Relation Age of Onset - Hypothyroidism Mother - Hyperlipidemia Mother - GERD Mother - other (stomach cancer) Father stomach - Hypertension Brother - Hyperlipidemia Brother Social History Tobacco Use - Smoking status: Never Passive exposure: Past - Smokeless tobacco: Never Vaping Use - Vaping status: Not on file Substance and Sexual Activity - Alcohol use: Yes Comment: rare - Drug use: Not on file - Sexual activity: Not on file ALLERGIES Allergen Reactions - Abby [Fexofenadi* Intolerance Hyperactivity - Claritin [Loratadin* Intolerance Hyperactivity - Lipitor [Atorvastat* GI Upset - Sulfa (Sulfonamide * Rash - Zyrtec [Cetirizine * Intolerance Drowsiness Review of Systems Gastrointestinal: Negative for nausea and vomiting. Skin: Positive for wound. Negative for pallor. Allergic/Immunologic: Positive for environmental allergies. Negative for food allergies and immunocompromised state. Physical Exam Vitals [07/02/24 1145] BP Pulse Temp Temp src Resp SpO2 Weight Height 140/95 88 (!) 35.6 ?C (96.1 ?F) Temporal 16 98 % 58.1 kg (128 lb) 1.575 m (5' 2) Physical Exam Vitals and nursing note reviewed. Constitutional: General: She is not in acute distress. Appearance: Normal appearance. Pulmonary: Effort: Pulmonary effort is normal. No respiratory distress. Musculoskeletal: General: Tenderness present. No swelling. Comments: Superficial but gaping laceration 1.5 cm in length distal volar right thumb minimal bleeding no injury to the nail no disruption in sensation or movement. Skin: General: Skin is warm and dry. Capillary Refill: Capillary refill takes less than 2 seconds. Neurological: General: No focal deficit present. Mental Status: She is alert and oriented to person, place, and time. Psychiatric: Mood and Affect: Mood normal. Behavior: Behavior normal. Thought Content: Thought content normal. Judgment: Judgment normal. Diagnostic Testing ED Labs Ordered and Reviewed - No data to display LAC REPAIR Date/Time: 07/02/2024 12:40 PM Performed by: Jayme Ingram MD Authorized by: Jayme Ingram MD Risks discussed: Infection and poor cosmetic result Anesthesia (see MAR for exact dosages): Anesthesia method: Local infiltration Local anesthetic: Lidocaine 1% w/o epi Laceration details: Location: Finger Finger location: R thumb Length (cm): 1.5 Depth (mm): 5 Repair type: Repair type: Simple Pre-procedure details: Preparation: Patient was prepped and draped in usual sterile fashion Exploration: Wound exploration: wound explored through full range of motion and entire depth of wound probed and visualized Wound extent: no foreign body and no tendon damage Contaminated: no Treatment: Area cleansed with: Shur-Clens Amount of cleaning: Standard Visualized foreign bodies/material removed: no Skin repair: Repair method: Sutures Suture size: 4-0 Suture material: Nylon Suture technique: Simple interrupted Number of sutures: 4 Approximation: Approximation: Close Post-procedure details: Dressing: Antibiotic ointment and adhesive bandage Patient tolerance of procedure: Tolerated well, no immediate complications ED Course / Clinical Impression Clinical Impressions as of 07/02/24 1243 Laceration of right thumb without foreign body without damage to nail, initial encounter MDM / Disposition / Plan I recommended suture closure for this wound is on the thumb and it does gape with minimal traction. Wound was cleansed anesthetized and sutured without complication patient is up-to-date on her tetanus. No indications for transfer or admission wound care instructions were given. History and Record Review External record(s) reviewed: immunization history. Differential Diagnoses - Laceration right thumb is more (more content not included)... Normal [facility] Influenza virus A and B and SARS-CoV-2 (COVID-19) and Respiratory syncytial virus RNAOrdered By: Bello Davenport on 05-22-2024 SARS-CoV-2 (COVID-19) RNA ENID+probe Ql (Unsp spec) [facility] M100.678on 05-22-2024 M100.678 Pending SARS-CoV-2 (COVID 19) Negative INFLUENZA A Negative INFLUENZA B Negative RSV PCR Negative Normal [facility] Comment on above: Performed By: #### M 100.678 ####[facility] [id number] [place], [address] No Panel Informationon 09-08 IMPRESSION: Minimal L2 superior endplate height loss, age indeterminate. Mild multilevel degenerative changes in the lumbar spine, as described. Hip joint spaces are maintained bilaterally. Pre K Teacher: [facility] Transcribe Date/Time: Sep 09 2023 4:36P Dictated by : SHELIA SALEH MD This examination was interpreted and the report reviewed and electronically signed by: SHELIA SALEH MD on Sep 09 2023 4:41PM EST [facility] No Panel InformationOrdered By: Ccf Provider on 09-09-2023 [facility] XR HIP BILATERAL 5V PEL/AP/L AT EACH HIPon 09-09-2023 * * *Final Report* * * DATE OF EXAM: Sep 09 2023 10:52AM CHARLY 5353 - XR HIP ELISHA 5V PEL+ AP/LAT EA HIP / PROCEDURE REASON: multiple diagnoses * * * * Physician Interpretation * * * * EXAMINATION / TECHNIQUE: XR HIP ELISHA 5V PEL+ AP/LAT EA HIP, XR LUMBAR 3V AP/LAT/L5-S1 PATIENT/TECHNOLOGIST PROVIDED HISTORY: BILATERAL HIP PAIN, PT STATES SHE HAS MORE PAIN IN HER LEFT HIP (accession [id number]), DEGENERATIVE DISC DISEASE OF LUMBAR (accession [id number]) CLINICAL INFORMATION ( PROVIDED BY ORDERING CLINICIAN) : Bilateral hip pain Bilateral hip pain COMPARISON: None RESULT: Counting reference: Lumbosacral junction. For the purposes of this report, L4-5 is considered the level of the iliac crest. Anatomic Variants: There are 6 lumbar-type vertebral bodies, the inferior most of which is sacralized. The superiormost nonrib-bearing vertebral body is designated as T13 Normal lumbar lordosis. Mild left convex curvature. No significant spondylolisthesis. Minimal height loss along the T2 superior endplate. Mild disc height loss at T12-T13, T13-L1, and L1-L2. Mild multilevel facet arthropathy. No acute hip/pelvic fracture or dislocation. Hip and sacroiliac joint spaces are preserved bilaterally. Mild degenerative change at the pubic symphysis. [facility] Provider, Kailee Cheng - 09/09/2023 * * *Final Report* * * DATE OF EXAM: Sep 09 2023 10:52AM CHARLY 5353 - XR HIP ELISHA 5V PEL+ AP/LAT EA HIP / PROCEDURE REASON: multiple diagnoses * * * * Physician Interpretation * * * * EXAMINATION / TECHNIQUE: XR HIP ELISHA 5V PEL+ AP/LAT EA HIP, XR LUMBAR 3V AP/LAT/L5-S1 PATIENT/TECHNOLOGIST PROVIDED HISTORY: BILATERAL HIP PAIN, PT STATES SHE HAS MORE PAIN IN HER LEFT HIP (accession [id number]), DEGENERATIVE DISC DISEASE OF LUMBAR (accession [id number]) CLINICAL INFORMATION ( PROVIDED BY ORDERING CLINICIAN) : Bilateral hip pain Bilateral hip pain COMPARISON: None RESULT: Counting reference: Lumbosacral junction. For the purposes of this report, L4-5 is considered the level of the iliac crest. Anatomic Variants: There are 6 lumbar-type vertebral bodies, the inferior most of which is sacralized. The superiormost nonrib-bearing vertebral body is designated as T13 Normal lumbar lordosis. Mild left convex curvature. No significant spondylolisthesis. Minimal height loss along the T2 superior endplate. Mild disc height loss at T12-T13, T13-L1, and L1-L2. Mild multilevel facet arthropathy. No acute hip/pelvic fracture or dislocation. Hip and sacroiliac joint spaces are preserved bilaterally. Mild degenerative change at the pubic symphysis. IMPRESSION IMPRESSION: Minimal L2 superior endplate height loss, age indeterminate. Mild multilevel degenerative changes in the lumbar spine, as described. Hip joint spaces are maintained bilaterally. [facility] K [facility] Transcribe Date/Time: Sep 09 2023 4:36P Dictated by : SHELIA SALEH MD This examination was interpreted and the report reviewed and electronically signed by: SHELIA SALEH MD on Sep 09 2023 4:41PM EST [facility] Radiology Study observation (narrative) [facility] XR Lumbar spine 3 Viewson * * *Final Report* * * DATE OF EXAM: Sep 09 2023 11:49AM CHARLY 5228 - XR LUMBAR 3V AP/LAT/L5-S1 / PROCEDURE REASON: M51.36-DDD (degenerative disc disease), lumbar * * * * Physician Interpretation * * * * EXAMINATION / TECHNIQUE: XR HIP ELISHA 5V PEL+ AP/LAT EA HIP, XR LUMBAR 3V AP/LAT/L5-S1 PATIENT/TECHNOLOGIST PROVIDED HISTORY: BILATERAL HIP PAIN, PT STATES SHE HAS MORE PAIN IN HER LEFT HIP (accession [id number]), DEGENERATIVE DISC DISEASE OF LUMBAR (accession [id number]) CLINICAL INFORMATION ( PROVIDED BY ORDERING CLINICIAN) : Bilateral hip pain Bilateral hip pain COMPARISON: None RESULT: Counting reference: Lumbosacral junction. For the purposes of this report, L4-5 is considered the level of the iliac crest. Anatomic Variants: There are 6 lumbar-type vertebral bodies, the inferior most of which is sacralized. The superiormost nonrib-bearing vertebral body is designated as T13 Normal lumbar lordosis. Mild left convex curvature. No significant spondylolisthesis. Minimal height loss along the T2 superior endplate. Mild disc height loss at T12-T13, T13-L1, and L1-L2. Mild multilevel facet arthropathy. No acute hip/pelvic fracture or dislocation. Hip and sacroiliac joint spaces are preserved bilaterally. Mild degenerative change at the pubic symphysis. [facility] Provider, [facility] - 09/09/2023 * * *Final Report* * * DATE OF EXAM: Sep 09 2023 11:49AM CHARLY 5228 - XR LUMBAR 3V AP/LAT/L5-S1 / PROCEDURE REASON: M51.36-DDD (degenerative disc disease), lumbar * * * * Physician Interpretation * * * * EXAMINATION / TECHNIQUE: XR HIP ELISHA 5V PEL+ AP/LAT EA HIP, XR LUMBAR 3V AP/LAT/L5-S1 PATIENT/TECHNOLOGIST PROVIDED HISTORY: BILATERAL HIP PAIN, PT STATES SHE HAS MORE PAIN IN HER LEFT HIP (accession [id number]), DEGENERATIVE DISC DISEASE OF LUMBAR (accession [id number]) CLINICAL INFORMATION ( PROVIDED BY ORDERING CLINICIAN) : Bilateral hip pain Bilateral hip pain COMPARISON: None RESULT: Counting reference: Lumbosacral junction. For the purposes of this report, L4-5 is considered the level of the iliac crest. Anatomic Variants: There are 6 lumbar-type vertebral bodies, the inferior most of which is sacralized. The superiormost nonrib-bearing vertebral body is designated as T13 Normal lumbar lordosis. Mild left convex curvature. No significant spondylolisthesis. Minimal height loss along the T2 superior endplate. Mild disc height loss at T12-T13, T13-L1, and L1-L2. Mild multilevel facet arthropathy. No acute hip/pelvic fracture or dislocation. Hip and sacroiliac joint spaces are preserved bilaterally. Mild degenerative change at the pubic symphysis. IMPRESSION IMPRESSION: Minimal L2 superior endplate height loss, age indeterminate. Mild multilevel degenerative changes in the lumbar spine, as described. Hip joint spaces are maintained bilaterally. Pre K Teacher: [facility] Transcribe Date/Time: Sep 09 2023 4:36P Dictated by : SHELIA SALEH MD This examination was interpreted and the report reviewed and electronically signed by: SHELIA SALEH MD on Sep 09 2023 4:41PM EST [facility] Radiology Study observation (narrative) [facility] Basophil percentageOrdered B y: Bello Davenport on 08-11-2023 Bilirubin [Mass/Vol] 1.10 mg/dL 0.20-1.00 [facility] Comment on above: For patients on eltr ombopag therapy, use of Dimension [place] TBIL is not recommended. Chloride [Moles/Vol] 105 mmol/L 98-107 [facility] Glucose [Mass/Vol] 83 mg/dL 74-106 [facility] Hemoglobin (Bld) [Mass/Vol] 14.1 g/dL 12.0-15.0 [facility] Potassium [Moles/Vol] 3.7 mmol/L 3.5-5.1 [facility] Protein [Mass/Vol] 7.7 g/dL 6.4-8.2 [facility] Sodium [Moles/Vol] 138 mmol/L 136-145 [facility] WBC (Bld) [#/Vol] 6.4 10*3/uL 4.4-11.0 [facility] Culture, urineOrdered By: Johnathan Davenport on 08-11-2023 Bacteria identified Cx Nom (U) Presumptive E. coli [facility] Determination of erythrocyte mean corpuscular volume (MCV)Ordered By: Bello Davenport on 08-11-2023 MCV (RBC) [Entitic vol] 84.4 fL 81-99 [facility] Erythrocyte distribution wid th ratioOrdered By: Bello Davenport on 08-11-2023 Erythrocyte distribution width (RBC) [Ratio] 13.1 % 11.6-14.6 [facility] Erythrocyte distribution wid th standard deviationOrdered By: Bello Davenport on 08-11-2023 Erythrocyte distribution width (RBC) [Entitic vol] 39.9 fL 35.1-43.9 [facility] Hematocrit Auto (Bld) [Volum e fraction]Ordered By: Bello Davenport on 08-11-2023 Hematocrit (Bld) [Volume fraction] 41.7 % 37-47 [facility] Laboratory - Chemistry and C hemistry - challengeOrdered By: Bello Davenport on 08-11-2023 Albumin/Globulin [Mass ratio] 1.1 {ratio} 0.9-2.4 [facility] ALP [Catalytic activity/Vol] 54 U/L 45-117 [facility] ALT [Catalytic activity/Vol] 27 U/L 13-56 [facility] CO2 [Moles/Vol] 25.0 mmol/L 21.0-32.0 [facility] Globulin (S) [Mass/Vol] 3.6 g/dL 2.2-4.2 [facility] Urea nitrogen/Creatinine [Mass ratio] 18.4 mg/mg 10-20 [facility] Laboratory - Hematology and Cell countsOrdered By: Bello Davenport on 08-11-2023 MCH (RBC) [Entitic mass] 28.5 pg 27.0-32.0 [facility] MCHC (RBC) [Mass/Vol] 33.8 g/dL 32-36 [facility] Platelet mean volume (Bld) [Entitic vol] 10.6 fL 6.2-12.0 [facility] Platelets (Bld) [#/Vol] 280 10*3/uL 150-450 [facility] No Panel InformationOrdered By: Bello Davenport on 08-11-2023 Estimated GFR (MDRD) Amer 78 mL/min >60 [facility] Comment on above: GFR Calc Estimated GFR (MDRD) Non-Af Amer 65 mL/min >60 [facility] Comment on above: Non- GFR Calc Hepatitis C Antibody Non-Reactive Nonreactive [facility] Comment on above: Non Reactive: < 0.8 Equivocal: >/= 0.8 to < 1.0 Reactive: >/= 1.0The CDC requires that a reactive/equivocal HCV antibody result be sent out for confirmation. HCV Quant by PCR testing. Vitamin D 25-Hydroxy 31.1 ng/mL [facility] Comment on above: Vitamin D 25(OH) Sta tus Range Deficiency <20 ng/mL (50nmol/L) Insufficiency 20 - 30 ng/mL (50 - 75 nmol/L) Sufficiency 30 - 100 ng/mL (75 - 250 nmol/L) Toxicity >100 ng/mL (>250 nmol/L) RBC Auto (Bld) [#/Vol]Ordere d By: Bello Davenport on 08-11-2023 RBC (Bld) [#/Vol] 4.94 10*6/uL 4.2-5.4 [facility] Serum or plasma calcium bianca urement (mass/volume)Ordered By: Bello Davenport on 08-11-2023 Calcium [Mass/Vol] 9.6 mg/dL 8.5-10.1 [facility] Serum or plasma creatinine m easurement (mass/volume)Ordered By: Bello Davenport 08-11-2023 Creatinine [Mass/Vol] 0.92 mg/dL 0.55-1.02 [facility] Comment on above: The validity of the calculated GFR & GFRAA in patients over 70 years has not been determined. Clinical correlation is essential. Serum or plasma thyroid stim ulating hormone (TSH) measurement (units/volume)Ordered By: Bello Davenport 08-11-2023 TSH Qn 0.49 uIU/mL 0.358-3.74 [facility] Serum or plasma urea nitroge n measurement (mass/volume)Ordered By: Bello Davenport 08-11-2023 Urea nitrogen [Mass/Vol] 17 mg/dL 7-18 [facility] Thin prep Papanicolaou smear with manual screeningOrdered By: Bello Davenport 08-11-2023 Thin prep Papanicolaou smear with manual screening 4.1 g/dL 3.2-5.0 [facility] Thin prep Papanicolaou smear with manual screening 28 U/L 15-37 [facility] Thin prep Papanicolaou smear with manual screening 8 5-15 [facility] CNPNon 07-28-2023 [facility] TIFFANIE RAMSEY ([id number]) 1960 F Date Time Provider Department 07/28/23 JEREMY RAMIREZ During your visit today, we recorded the following information about you: Glendy Motta MA 07/28/2023 1:21 PM Signed ----- Message from Jeremy Ramirez APRN.PANAMA HAT HYDRAULIC PRESS OPERATOR sent at 07/28/2023 12:21 PM EST ----- Bone density shows osteopenia. Please review the following to prevent further bone loss GENERAL RECOMMENDATIONS FOR PREVENTION OF BONE LOSS: 1. ?1200 mg - 1500 mg calcium per day if no history of renal calculi for adults 50 ?years and over. ? 2. ?800 - 1000 International Units of vitamin D3 per day if no history of renal calculi for adults 50 years and over. ? 3. ?Weight bearing exercise 4. ?Advise against smoking and recommend smoking cessation if appropriate. 5. ?Avoid excessive use of caffeine, soft drinks, and alcoholic beverages. ? Glendy Motta MA 07/28/2023 1:23 PM Signed Patient is informed Glendy Motta MA Allergies As of Date: 07/28/2023 Noted Allergy Reaction LIPITOR (ATORVASTATIN) 07/22/2023 8 - GI Upset ABBY (FEXOFENADINE HCL) 06/24/2005 5 - Intolerance Comments: Hyperactivity CLARITIN (LORATADINE) 06/24/2005 5 - Intolerance Comments: Hyperactivity SULFA (SULFONAMIDE ANTIBIOTICS) 09/12/2004 2 - Rash ZYRTEC (CETIRIZINE HCL) 06/24/2005 5 - Intolerance Comments: Drowsiness Date Reviewed: 07/22/2023 Reviewed by: Angel Catherine APRN.PANAMA HAT HYDRAULIC PRESS OPERATOR - Fully Assessed Reason for Visit: Results [95] Prescriptions as of 07/28/2023 - amoxicillin-clavulanate potassium (AUGMENTIN) 875-125 mg per tablet Take 1 tablet by mouth two times a day for 7 days. - tacrolimus (PROTOPIC) 0.1 % ointment Apply to affected area two times a day. - MEDICATION, NON-DATABASE Take 1 tablet by mouth three times a day. GYNOVITE - atorvastatin (LIPITOR) 20 mg tablet Take 1 tablet by mouth once daily. - fluticasone (FLONASE) 50 mcg/actuation nasal spray Use 2 Sprays in each nostril once daily. Problem List As Of Date 07/28/2023 Noted Resolved CENT PERF TYMPANIC MEMB [H72.00] 11/10/2004 Impacted cerumen [H61.20] 12/06/2006 07/13/2023 OTALGIA NOS [H92.09] 12/06/2006 Plantar fasciitis [M72.2] 09/13/2013 Pain in limb [M79.609] 09/13/2013 Vitamin D deficiency [E55.9] 07/13/2023 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 [N89.8] 07/13/2023 Urinary tract infection [N39.0] 07/13/2023 Urge incontinence of urine [N39.41] 07/13/2023 Tendinitis of left rotator cuff [M75.82] 07/13/2023 Menopausal symptom [N95.1] 07/13/2023 Seborrheic dermatitis [L21.9] 07/13/2023 Non-toxic multinodular goiter [E04.2] 07/13/2023 Insomnia [G47.00] 07/13/2023 Impingement syndrome of shoulder region [M75.40]07/13/2023 Hyperlipidemia [E78.5] 07/13/2023 Greater trochanteric bursitis [M70.60] 07/13/2023 Gastroesophageal reflux disease [K21.9] 07/13/2023 Family history of malignant neoplasm of gastroi*07/26/2012 Dysphagia [R13.10] 07/13/2023 Irritable bowel syndrome with constipation [K58*07/13/2023 Cobalamin deficiency [E53.8] 07/13/2023 Benign paroxysmal positional vertigo [H81.10] 07/13/2023 Allergic rhinitis [J30.9] 07/13/2023 Hearing loss [H91.90] 07/13/2023 Encounter Status:Closed by GLENDY MOTTA on 07/28/23 Normal [facility] BD DXA - AXIAL SKELETONon BD DXA - AXIAL SKELETON * * *Final Report* * * DATE OF EXAM: Jul 27 2023 10:18AM LDX 0804 - BD DXA - AXIAL SKELETON / PROCEDURE REASON: Post-menopausal * * * * Physician Interpretation * * * * EXAMINATION: DXA BONE DENSITOMETRY BD DXA - AXIAL SKELETON PATIENT DEMOGRAPHICS: Age: 63 years, Gender: Female SCANNER INFORMATION: DXA Model: [facility] [id number] Date Scanned: 07/27/2023 10:18 AM CLINICAL HISTORY: DIAGNOSTIC Post-menopausal . RISK FACTORS FOR OSTEOPOROSIS AND ASSOCIATED FRACTURES REPORTED BY THIS PATIENT: Please refer to Bone Health Questionnaire in the EMR CURRENT THERAPY: Please refer to Bone Health Questionnaire in the EMR TECHNICAL LIMITATIONS: RESULTS: Lumbar spine (L1, L2, L3, L4): 1.087 g/cm2, T-score -0.8, Z-score 0.7 Right Femoral Neck: 0.779 g/cm2, T-score -1.9, Z-score -0.5 Right Total Hip: 0.817 g/cm2, T-score -1.5, Z-score -0.4 Left Femoral Neck: 0.710 g/cm2, T-score -2.4, Z-score -1.0 Left Total Hip: 0.824 g/cm2, T-score -1.5, Z-score -0.4 No comparison data - the patient has not had a previous bone density in the [facility] or the previous bone density was performed on a different DXA machine (new, updated model or different location) within the [facility]. VERTEBRAL FRACTURE ASSESSMENT Not performed. TRABECULAR BONE ASSESSMENT TBS not performed: IMPRESSION: THE LOWEST T-SCORE IS -2.4 IN THE LEFT HIP 1) DIAGNOSIS (based on BMD alone): OSTEOPENIA Caution: Medical conditions other than osteoporosis may cause low bone density, such as osteomalacia or renal osteodystrophy. Clinical correlation is necessary. 2) FRACTURE RISK (based on FRAX): 10-year absolute fracture risk: - major osteoporotic fracture = 12.4 % - hip fracture = 2.4 % - A diagnosis of Osteoporosis, a 10 year probability of hip fracture greater than or equal to 3% or a 10 year probability of any major osteoporosis-related fracture greater than or equal to 20% should be considered for treatment. - DXA scanner generated FRAX calculations may slightly differ from online FRAX calculations due to differences in software versions. - All recommendations and calculations are to be considered as guidelines and should not replace sound clinical judgement - Caution: Fracture risk may be increased independent of BMD in patients with corticosteroid use, age greater than 65 years, or a history of prior fragility fracture. RECOMMENDATIONS: Follow-up in 2 years or as clinically indicated. Patients that are taking corticosteroids, are transplant recipients or have hyperparathyroidism should have annual follow-up. Follow-up scans should always be done on the same machine for accurate comparison. FOR MORE INFORMATION ABOUT DIAGNOSIS AND TREATMENT: [facility] for Osteoporosis and Metabolic Bone Disease:? www.ccf.org/arthritis/oste o National Osteoporosis Foundation:? www.nof.org International Society of Clinical Densitometry www.iscd.org Pre K Teacher: SAUNDRA Transcribe Date/Time: Jul 28 2023 9:50A Dictated by : LEOLA BABB MD This examination was interpreted and the report reviewed and electronically signed by: LEOLA BABB MD on Jul 28 2023 9:51AM EST [id number] Normal [facility] STREP A MOLECULAR (POC)on Procedural Control Valid [facility] Strep A (POCT) Negative Negative [facility] US Thyroid [facility] DIGITAL MAMM SCREENING W/ TO Rosa 12-24-2022 DIGITAL MAMM SCREENING W/ BEBA Patient Name: TIFFANIE RAMSEY STUDY: DIGITAL MAMM SCREENING W/ BEBA; 12/24/2022 2:29 pm ACCESSION NUMBER(S): [id number] ORDERING CLINICIAN: NATHALIA LOU INDICATION: Screening. COMPARISON: 12/12/2021 and 12/31/2020. FINDINGS: 2D and tomosynthesis images were reviewed at 1 mm slice thickness. Density: There are areas of scattered fibroglandular tissue. No suspicious masses or calcifications are identified. IMPRESSION: No mammographic evidence of malignancy. BI-RADS CATEGORY: Category: 1 - Negative. Recommendation: 1 Year Screening. For any future breast imaging appointments, please call [phone]). Patient letter sent SNORM MACRO: None Electronically signed by: GEOFF LAFLEUR MD Normal [facility] [place] Mamm - Screening Mammogram w / Tomosynthesison 12-24-2022 MG Breast Screening Normal MG-MOLD BUNCH TRIMMER-We ravi 0622 DO Work Phone: GUIDE DOG INSTRUCTOR - Office Visiton 11-29 GUIDE DOG INSTRUCTOR - Office Visit Diagnoses/Problems Assessed Well female exam with routine gynecological exam (V72.31) (Z01.419) Orders Mamm - Screening Mammogram w/ Tomosynthesis; Status:Hold For - Scheduling; Requested for:[id number]; Radiologist to Determine Optimal Study : Y What are the patient's signs and symptoms ? : Annual Screening Mammogram Provider Impressions 61yo female presenting for annual visit. Genitourinary syndrome of menopause - Continue vaginal estrogen, you have good results using it weekly. - Recommended use of lubricant during intercourse You are due to have a mammogram performed. Chief Complaint ASPEN LAST PAP: 12/12/2020- WNL -HPV LAST MAMM: 12/12/2021 SUPERINTENDENT SEED MILL: Preet Young MA II History of Present [id number] female presenting for annual visit. Just tired. Just moved to [place]. using vaginal estrogen once a week. Diet: varied Exercise: active with house work, working on exercise Seatbelt: always Safety: no concerns Review of Systems Constitutional: no fever, no chills, no recent weight gain, no recent weight loss and no fatigue. Eyes: no eye pain, no vision problems and no dryness of the eyes. ENT: no hearing loss, no nosebleeds and no sinus congestion. Cardiovascular: no chest pain, no palpitations and no orthopnea. Respiratory: no shortness of breath, no cough and no wheezing. Gastrointestinal: no abdominal pain, no constipation, no nausea, no diarrhea and no vomiting. Genitourinary: no dysuria, no urinary incontinence, no vaginal dryness, no vaginal itching, no dyspareunia, no pelvic pain, no dysmenorrhea, no sexual problems, no change in urinary frequency, no vaginal discharge, no unexplained vaginal bleeding and no lesion/sore. Musculoskeletal: no back pain, no joint swelling and no leg edema. Integumentary: no rashes, no skin lesions, no nipple discharge, no breast pain and no breast lump. Neurological: no headache, no numbness and no dizziness. Psychiatric: no sleep disturbances, no anxiety and no depression. Endocrine: no hot flashes, no loss of hair and no hirsutism. Hematologic/Lymphatic: no swollen glands, no tendency for easy bleeding and no tendency for easy bruising. All other systems have been reviewed and are negative for complaint. Active Problems Problems Abdominal pain, epigastric (789.06) (R10.13) Abdominal pain, LLQ (left lower quadrant) (789.04) (R10.32) Added by Problem List Migration; 2012-11-30; Moved to Suppressed Apr 24 2013 9:21PM Acute bronchitis (466.0) (J20.9) Acute laryngitis (464.00) (J04.0) Acute sinusitis (461.9) (J01.90) Added by Problem List Migration; 2012-11-30; Moved to Suppressed Apr 24 2013 9:21PM Allergic rhinitis (477.9) (J30.9) Benign positional vertigo (386.11) (H81.10) Bursitis of shoulder (726.10) (M75.50) Chronic pain of right thumb (729.5,338.29) (M79.644,G89.29) Corneal abrasion, right (918.1) (S05.01XA) Diarrhea (787.91) (R19.7) Difficulty swallowing (787.20) (R13.10) Dizziness (780.4) (R42) Encounter for immunization (V03.89) (Z23) Fatigue (780.79) (R53.83) Food poisoning (005.9) (A05.9) GERD (gastroesophageal reflux disease) (530.81) (K21.9) Grieving (309.0) (F43.21) Hand pain (729.5) (M79.643) Headache (784.0) (R51.9) Hearing loss of right ear due to cerumen impaction (389.8,380.4) (H61.21) Hip pain (719.45) (M25.559) Hyperlipidemia (272.4) (E78.5) Hypothyroidism (244.9) (E03.9) Impingement syndrome, shoulder, left (726.2) (M75.42) Infected insect bite of neck (910.5,E906.4) (S10.96XA,L08.9,W57.XXXA) Insomnia (780.52) (G47.00) Irritable bowel syndrome with constipation (564.1) (K58.1) Left shoulder pain (719.41) (M25.512) Left upper quadrant pain (789.02) (R10.12) Malaise (780.79) (R53.81) Menopausal symptom (627.2) (N95.1) Neck pain (723.1) (M54.2) Nontoxic multinodular goiter (241.1) (E04.2) Otitis externa, left (380.10) (H60.92) Perforation of left tympanic membrane (384.20) (H72.92) Right shoulder pain (719.41) (M25.511) Rotator cuff tendonitis, left (726.10) (M75.82) Rotator cuff tendonitis, right (726.10) (M75.81) Screening for blood disease (V78.9) (Z13.0) Screening for endocrine, nutritional, metabolic and immunity disorder (V77.99) (Z13.29,Z13.0,Z13.21,Z13.2 28) Screening for ischemic heart disease (V81.0) (Z13.6) Screening for lipid disorders (V77.91) (Z13.220) Seborrheic dermatitis (690.10) (L21.9) Special screening examination for viral disease (V73.99) (Z11.59) Strain of latissimus dorsi muscle, initial encounter (847.1) (S29.012A) Suprapubic tenderness (789.69) (R10.819) Swelling of right thumb (729.81) (M79.89) Symptoms of urinary tract infection (788.99) (R39.9) Trochanteric bursitis of right hip (726.5) (M70.61) Urge incontinence of urine (788.31) (N39.41) Urgency of urination (788.63) (R39.15) Urinary frequency (788.41) (R35.0) Urinary tract infection (599.0) (N39.0) Urine malodor (791.9) (R82.90) Vaginal atrophy (627.3) (N95.2) Vagi (more content not included)... Normal [employer] Tobacco Screening.on 023 Adult depression screening assessment No [facility] [place] 2420 DO Work Phone: Fall risk assessment a) No falls within the last year [facility] [place] 2420 DO Work Phone: Last menstrual period start date jimbo [facility] [place] 2420 DO Work Phone: Tobacco use status [facility] b) No [facility] [place] 2420 DO Work Phone: Laboratory - Chemistry and C hemistry - challengeon 07-23-2022 TSH Qn 1.40 m[IU]/L See Below [facility] [place] 2100 Work Phone: Comment on above: Reference Range: 0.4 4 - 3.98 TSH testing is performed using different testing methodology at [facility] than at other system [facility]. Direct result comparisons should only be made within the same method. TSH WITH REFLEX TO FREE T4 I F ABNORMALon 07-23-2022 TSH Qn 1.40 m[IU]/L Normal 0.44 - 3.98 [facility] Comment on above: Result Comment: TSH testing is performed using different testing methodology at [facility] than at other system [facility]. Direct result comparisons should only be made within the same method. Performed By: #### T HYDS #### [address] [phone] No Panel Informationon 12-22 FINAL REPORT Interpreted by: CARLITO CHICAS JOSEPH, MD 12/23/21 15:37 Patient Name: TIFFANIE RAMSEY STUDY: US PELVIS TRANSABDOMINAL WITH TRANSVAGINAL; 12/22/2021 3:41 pm INDICATION: llq R10.32: Abdominal pain, LLQ (left lower qu Normal MG-OBGYN-[facility] C 1200 [place] Work Phone: Mamm - Screening Mammogram w / Tomosynthesison 12-12-2021 MG Breast Screening Normal MG-MOLD BUNCH TRIMMER-We [place] 2420 DO Work Phone: Cult, Urineon 12-11-2021 Bacteria identified Cx Nom (U) MG-OBGYN-MA C 1200 [place] Work Phone: Tobacco Screening.on 022 Adult depression screening assessment No [facility] [place] 2420 DO Work Phone: Fall risk assessment a) No falls within the last year [facility] [place] 2420 DO Work Phone: Last menstrual period start date jimbo [facility] [place] 2420 DO Work Phone: Tobacco use status [facility] b) No [facility] [place] 2420 DO Work Phone: Laboratory - Chemistry and C hemistry - challengeon 11-07-2021 Albumin BCP dye [Mass/Vol] 4.7 g/dL 3.4 - 5.0 [facility] [place] 2099 Work Phone: ALP [Catalytic activity/Vol] 47 U/L 33 - 136 [facility] [place] 2099 Work Phone: ALT With P-5'-P [Catalytic activity/Vol] 22 U/L 7 - 45 [facility] [place] 2099 Work Phone: Comment on above: Patients treated wit h Sulfasalazine may generate falsely decreased results for ALT. Anion gap [Moles/Vol] 13 mmol/L 10 - 20 [facility] [place] 2099 Work Phone: AST With P-5'-P [Catalytic activity/Vol] 19 U/L 9 - 39 -[facility] 2099 Work Phone: Bilirubin [Mass/Vol] 0.9 mg/dL 0.0 - 1.2 -W [facility] 2099 Work Phone: Calcium [Mass/Vol] 10.2 mg/dL 8.6 - 10.6 [facility] 2099 Work Phone: Chloride [Moles/Vol] 106 mmol/L 98 - 107 -W [facility] 2099 Work Phone: CO2 [Moles/Vol] 26 mmol/L 21 - 32 [facility] 2099 Work Phone: Creatinine [Mass/Vol] 0.80 mg/dL See Below [facility] 2099 Work Phone: Comment on above: Reference Range: 0.5 0 - 1.05 Glucose [Mass/Vol] 87 mg/dL 74 - 99 [facility] 2099 Work Phone: Potassium [Moles/Vol] 4.7 mmol/L 3.5 - 5.3 [facility] 2099 Work Phone: Protein [Mass/Vol] 7.6 g/dL 6.4 - 8.2 [facility] 2099 Work Phone: Sodium [Moles/Vol] 140 mmol/L 136 - 145 [facility] 2099 Work Phone: Urea nitrogen [Mass/Vol] 18 mg/dL 6 - 23 -[facility] 2099 Work Phone: Laboratory - Hematology and Cell countson 11-07-2021 Erythrocyte distribution width (RBC) [Ratio] 14.0 % See Below [facility] [place] [facility] Work Phone: Comment on above: Reference Range: 11. 5 - 14.5 Hematocrit (Bld) [Volume fraction] 43.0 % See Below [facility] 2099 Work Phone: Comment on above: Reference Range: 36. 0 - 46.0 Hemoglobin (Bld) [Mass/Vol] 14.0 g/dL See Below [facility] [place] [employer] Work Phone: Comment on above: Reference Range: 12. 0 - 16.0 MCHC (RBC) [Mass/Vol] 32.6 g/dL See Below [facility] [place] [employer] Work Phone: Comment on above: Reference Range: 32. 0 - 36.0 MCV (RBC) [Entitic vol] 87 fL 80 - 100 [facility] [employer] Work Phone: Platelets (Bld) [#/Vol] 293 10*3/uL 150 - 450 [facility] 2099 Work Phone: RBC (Bld) [#/Vol] 4.93 {x10E12/L} [facility] Below [facility] [place] [employer] Work Phone: Comment on above: Reference Range: 4.0 0 - 5.20 WBC (Bld) [#/Vol] 6.8 10*3/uL 4.4 - 11.3 -[facility] [place] [employer] Work Phone: Lipid Panelon 11-07-2021 Cholesterol [Mass/Vol] 272 mg/dL above high threshold 0 - 199 [facility] [employer] Work Phone: Comment on above: . AGE DESIRABLE BORD TONIA HIGH HIGH 0-19 Y 0 - 169 170 - 199 >/= 200 20-24 Y 0 - 189 190 - 224 >/= 225 >24 Y 0 - 199 200 - 239 >/= 240 All ranges are based on fasting samples. Specific therapeutic targets will vary based on patient-specific cardiac risk.. Pediatric guidelines reference:Pediatrics 2011, 128(S5). Adult guidelines reference: NCEP ATPIII Guidelines, FARHEEN 2001, 258:2486-97. Venipuncture immediately after or during the administration of Metamizole may lead to falsely low results. Testing should be performed immediately prior to Metamizole dosing. Cholesterol in HDL [Mass/Vol] 68.8 mg/dL [employer] Work Phone: Comment on above: . AGE VERY LOW LOW N ORMAL HIGH 0-19 Y < 35 < 40 40-45 ---- 20- 24 Y ---- < 40 >45 ---- >24 Y ---- < 40 40-60 >60. Cholesterol in LDL [Mass/Vol] 181 mg/dL above high threshold 0 - 99 [employer] Work Phone: Comment on above: . NEAR BORD AGE CONCEPCIÓN RABLE OPTIMAL HIGH HIGH VERY HIGH 0-19 Y 0 - 109 --- 110-129 >/= 130 ---- 20-24 Y 0 - 119 --- 120-159 >/= 160 ---- >24 Y 0 - 99 100-129 130-159 160-189 >/=190. Cholesterol.total/Cho lesterol in HDL [Mass ratio] 4.0 {ratio} [employer] Work Phone: Comment on above: REF VALUESDESIRABLE < 3.4HIGH RISK > 5.0 Triglyceride [Mass/Vol] 110 mg/dL 0 - 149 [employer] Work Phone: Comment on above: . AGE DESIRABLE BORD TONIA HIGH HIGH VERY HIGH 0 D-90 D 19 - 174 ---- ---- ----91 D- 9 Y 0 - 74 75 - 99 >/= 100 ---- 10-19 Y 0 - 89 90 - 129 >/= 130 ---- 20-24 Y 0 - 114 115 - 149 >/= 150 ---- >24 Y 0 - 149 150 - 199 200- 499 >/= 500. Venipuncture immediately after or during the administration of Metamizole may lead to falsely low results. Testing should be performed immediately prior to Metamizole dosing. Lipid Panel 22 mg/dL 0 - 40 [facility] Work Phone: No Panel Informationon 11-07 0.0 {/100_WBC} 0.0-0.0 [employer] Work Phone: 83 {mL/min/1.73m2} >90 [facility] [place] 2099 Work Phone: Comment on above: CALCULATIONS OF SOPHIE MATED GFR ARE PERFORMED USING THE 2020 CKD-EPI STUDY REFIT EQUATION WITHOUT THE RACE VARIABLE FOR THE IDMS-TRACEABLE CREATININE METHODS.https://jasn.asnjournals.org/content// N.0797661186 Vitamin B12, Serumon Cobalamin (Vitamin B12) [Mass/Vol] 638 pg/mL 211 - 911 -[facility] [place] 2099 Work Phone: Vitamin D 25-Hydroxyon 11-07 25-hydroxyvitamin D3 [Mass/Vol] 33 ng/mL [facility] Work Phone: Comment on above: .DEFICIENCY: < 20 NG /MLINSUFFICIENCY: 20-29 NG/MLSUFFICIENCY: 30-100 NG/MLTHIS ASSAY ACCURATELY QUANTIFIES THE SUM OFVITAMIN D3, 25-HYDROXY AND VIT D2,25-HYDROXY. Tobacco Screening.on Fall risk assessment a) No falls within the last year [facility] [place] [employer] Work Phone: Tobacco use status [facility] b) No [facility] [place] [employer] Work Phone: Tobacco Screening.on Fall risk assessment a) No falls within the last year [facility] Work Phone: Tobacco use status [facility] b) No [facility] Work Phone: Tobacco Screening.on Adult depression screening assessment No [facility] [place] [employer] Work Phone: Fall risk assessment a) No falls within the last year [facility] [place] 2099 Work Phone: Tobacco use status [facility] b) No [facility] [place] [employer] Work Phone: IO UA (automated w/o microsc opy)on 03-03-2021 Protein (U) [Mass/Vol] Negative [facility]-[place] 210 Work Phone: IO UA (automated w/o microscopy) (+)small - 15 [facility] [address] Work Phone: IO UA (automated w/o microscopy) Negative [facility] [address] Work Phone: IO UA (automated w/o microscopy) Normal (0.2-1.0 mg/dl) [facility] a[facility]-[place] 210 Work Phone: IO UA (automated w/o microscopy) 7.0 1 [facility] 210 Work Phone: IO UA (automated w/o microscopy) 1.015 1 [facility] 210 Work Phone: IO UA (automated w/o microscopy) Clear [facility] 210 Work Phone: IO UA (automated w/o microscopy) Yellow [facility] 210 Work Phone: IO Ultrasound, measurement p ost-void resid urine and/or bl cap; no imagon 03-03-2021 IO Ultrasound, measurement post-void resid urine and/or bl cap; no imag 0 mL [facility] [address] Work Phone: Tobacco Screening.on 021 Fall risk assessment a) No falls within the last year [facility] [address] Work Phone: Tobacco use status [facility] b) No [facility] [address] Work Phone: Radiologyon 01-07-2021 US Abdomen Normal [facility] [address] Work Phone: XR Abdomen AP left lateral-decubitus Normal [facility] [address] Work Phone: [phone] Complete Blood Count + Diffe rentialon 01-02-2021 Basophils/100 WBC (Bld) 1.2 % 0.0 - 2.0 [facility] [address] Work Phone: [phone] Erythrocyte distribution width (RBC) [Ratio] 13.2 % See Below [facility] [address] Work Phone: [phone] Comment on above: Reference Range: 11. 5 - 14.5 Hematocrit (Bld) [Volume fraction] 43.4 % See Below [facility] [address] Work Phone: [phone] Comment on above: Reference Range: 36. 0 - 46.0 Hemoglobin (Bld) [Mass/Vol] 14.1 g/dL See Below [facility] [address] Work Phone: [phone] Comment on above: Reference Range: 12. 0 - 16.0 Lymphocytes/100 WBC (Bld) 24.9 % See Below [facility] [address] Work Phone: [phone] Comment on above: Reference Range: 13. 0 - 44.0 MCHC (RBC) [Mass/Vol] 32.5 g/dL See Below MG- Orthopae [facility]-[place] [address] Work Phone: [phone] Comment on above: Reference Range: 32. 0 - 36.0 MCV (RBC) [Entitic vol] 87 fL 80 - 100 [facility] [address] Work Phone: [phone] Monocytes/100 WBC (Bld) 7.1 % 2.0 - 10.0 [facility] [address] Work Phone: [phone] Neutrophils/100 WBC (Bld) 63.4 % See Below [facility] [address] Work Phone: [phone] Comment on above: Reference Range: 40. 0 - 80.0 Platelets (Bld) [#/Vol] 256 10*3/uL 150 - 450 [facility] [address] Work Phone: [phone] RBC (Bld) [#/Vol] 5.01 {x10E12/L} See Below [facility] -[facility]opae [facility]-[place] [address] Work Phone: [phone] Comment on above: Reference Range: 4.0 0 - 5.20 WBC (Bld) [#/Vol] 5.1 10*3/uL 4.4 - 11.3 MG-Ort justinae dics-[place] 210 Work Phone: Complete Blood Count + Differential 0.06 {x10E9/L} See Below [facility] [address] Work Phone: [phone] Comment on above: Reference Range: 0.0 0 - 0.10 Complete Blood Count + Differential 0.15 {x10E9/L} See Below [facility] [address] Work Phone: [phone] Comment on above: Reference Range: 0.0 0 - 0.70 Complete Blood Count + Differential 0.36 {x10E9/L} See Below [facility] [address] Work Phone: [phone] Comment on above: Reference Range: 0.1 0 - 1.00 Complete Blood Count + Differential 1.26 {x10E9/L} See Below [facility] [address] Work Phone: [phone] Comment on above: Reference Range: 1.2 0 - 4.80 Complete Blood Count + Differential 3.21 {x10E9/L} See Below [facility] Work Phone: [phone] Comment on above: Reference Range: 1.2 0 - 7.70 Complete Blood Count + Differential 3.0 % 0.0 - 6.0 [facility] Work Phone: [phone] Complete Blood Count + Differential 0.4 % 0.0 - 0.9 [facility] Work Phone: [phone] Comment on above: Immature Granulocyte Count (IG) includes promyelocytes, myelocytes and metamyelocytes but does not include bands. Percent differential counts (%) should be interpreted in the context of the absolute cell counts (cells/L). Complete Blood Count + Differential 0.0 {/100_WBC} 0.0 - 0.0 [facility] Work Phone: [phone] Laboratory - Chemistry and C hemistry - challengeon 08-05-2021 Albumin BCP dye [Mass/Vol] 4.4 g/dL 3.4 - 5.0 [facility] Work Phone: [phone] ALP [Catalytic activity/Vol] 46 U/L 33 - 136 [facility] Work Phone: [phone] ALT With P-5'-P [Catalytic activity/Vol] 11 U/L 7 - 45 [facility] Work Phone: [phone] Comment on above: Patients treated wit h Sulfasalazine may generate falsely decreased results for ALT. Anion gap [Moles/Vol] 9 mmol/L below low threshold 10 - 20 [facility] Work Phone: [phone] AST With P-5'-P [Catalytic activity/Vol] 16 U/L 9 - 39 [facility] Work Phone: [phone] Bilirubin [Mass/Vol] 0.8 mg/dL 0.0 - 1.2 [facility] Work Phone: [phone] Calcium [Mass/Vol] 9.5 mg/dL 8.6 - 10.3 [facility] 210 Work Phone: [phone] Chloride [Moles/Vol] 105 mmol/L 98 - 107 [facility] Work Phone: [phone] CO2 [Moles/Vol] 28 mmol/L 21 - 32 [facility] Work Phone: [phone] Creatinine [Mass/Vol] 0.70 mg/dL See Below [facility] Work Phone: [phone] Comment on above: Reference Range: 0.5 0 - 1.05 Glucose [Mass/Vol] 92 mg/dL 74 - 99 [facility] Work Phone: [phone] Potassium [Moles/Vol] 4.0 mmol/L 3.5 - 5.3 [facility] Work Phone: Protein [Mass/Vol] 7.2 g/dL 6.4 - 8.2 [facility] Work Phone: Sodium [Moles/Vol] 138 mmol/L 136 - 145 [facility] Work Phone: Urea nitrogen [Mass/Vol] 13 mg/dL 6 - 23 [facility] Work Phone: No Panel Informationon 01-02 >60 >60 [facility] Work Phone: Comment on above: CALCULATIONS OF SOPHIE MATED GFR ARE PERFORMED USING THE MDRD STUDY EQUATION FOR THE IDMS-TRACEABLE CREATININE METHODS. CLIN CHEM 2007;53:766-72 Sedimentation Rate, Erythroc yteon 01-02-2021 ESR (Bld) [Velocity] 4 mm/h 0 - 30 [facility] Work Phone: TSH - Thyroid Stimulating Ho rmone, Serumon 01-02-2021 TSH Qn 0.92 m[IU]/L See Below [facility] Work Phone: Comment on above: Reference Range: 0.4 4 - 3.98 TSH testing is performed using different testing methodology at [facility] than at other [facility]. Direct result comparisons should only be made within the same method. Vitamin D 25-Hydroxyon 01-02 25-hydroxyvitamin D3 [Mass/Vol] 26 ng/mL Abnormal [facility] Work Phone: Comment on above: .DEFICIENCY: < 20 NG /MLINSUFFICIENCY: 20-29 NG/MLSUFFICIENCY: 30-100 NG/MLTHIS ASSAY ACCURATELY QUANTIFIES THE SUM OFVITAMIN D3, 25-HYDROXY AND VIT D2,25-HYDROXY. Mamm - Screening Mammogram w / Tomosynthesison 12-31-2020 MG Breast Screening Normal [facility]20 DO Work Phone: Cult, Urineon 12-12-2020 Bacteria identified Cx Nom (U) PATIENT: TIFFANIE GOMEZ LOCATION: [facility] BILL#: [id number] : 56 AGE: SEX: F ORDERED BY: MADDIE GAMING SOURCE: URINE Abnormal [facility] 2419 DO Work Phone: IO UA (automated w/o microsc opy)on 12-12-2020 Protein (U) [Mass/Vol] Trace [facility] 1200 [place] Work Phone: [phone] IO UA (automated w/o microscopy) (+++)large - 80 [facility] [place] Work Phone: [phone] IO UA (automated w/o microscopy) Negative [facility] 1200 [place] Work Phone: [phone] IO UA (automated w/o microscopy) Normal [facility] 1200 [place] Work Phone: [phone] IO UA (automated w/o microscopy) 7.0 1 [facility] 1200 [place] Work Phone: [phone] IO UA (automated w/o microscopy) 1.010 1 [facility] 1200 [place] Work Phone: [phone] IO UA (automated w/o microscopy) Clear [facility] 1200 [place] Work Phone: [phone] IO UA (automated w/o microscopy) Yellow [facility] 1200 [place] Work Phone: [phone] Laboratory - Cytologyon 11-28 Cytology report Cyto stain.thin prep Doc (Cvx/Vag) [facility] 2419 DO Work Phone: Hematologyon 05-15-2020 Hematocrit (Bld) [Volume fraction] 44.2 % See Below [facility] [place] [facility] Work Phone: Comment on above: Reference Range: 36. 0 - 46.0 Hemoglobin (Bld) [Mass/Vol] 14.0 g/dL See Below -[facility] [place] [facility] Work Phone: Comment on above: Reference Range: 12. 0 - 16.0 MCV (RBC) [Entitic vol] 91 fL 80 - 100 [facility] [place] 2099 Work Phone: Platelets (Bld) [#/Vol] 278 {x10E9/L} 150 - 450 -[facility] [place] 2099 Work Phone: RBC (Bld) [#/Vol] 4.88 {x10E12/L} See Below -[facility] [place] [facility] Work Phone: Comment on above: Reference Range: 4.0 0 - 5.20 WBC (Bld) [#/Vol] 4.8 {x10E9/L} 4.4 - 11.3 -W [facility] [place] [facility] Work Phone: Lipid Panelon 05-15-2020 Cholesterol [Mass/Vol] 246 mg/dL above high threshold 0 - 199 -[facility] [place] [facility] Work Phone: Comment on above: . AGE DESIRABLE BORD TONIA HIGH HIGH 0-19 Y 0 - 169 170 - 199 >/= 200 20-24 Y 0 - 189 190 - 224 >/= 225 >24 Y 0 - 199 200 - 239 >/= 240 All ranges are based on fasting samples. Specific therapeutic targets will vary based on patient-specific cardiac risk.. Pediatric guidelines reference:Pediatrics 2011, 128(S5). Adult guidelines reference: NCEP ATPIII Guidelines, FARHEEN 2001, 258:2486-97. Venipuncture immediately after or during the administration of Metamizole may lead to falsely low results. Testing should be performed immediately prior to Metamizole dosing. Cholesterol in HDL [Mass/Vol] 70.0 mg/dL -[facility] [place] [facility]99 Work Phone: Comment on above: . AGE VERY LOW LOW N ORMAL HIGH 0-19 Y < 35 < 40 40-45 ---- 20- 24 Y ---- < 40 >45 ---- >24 Y ---- < 40 40-60 >60. Cholesterol in LDL [Mass/Vol] 157 mg/dL above high threshold 0 - 99 [employer] Work Phone: Comment on above: . NEAR BORD AGE CONCEPCIÓN RABLE OPTIMAL HIGH HIGH VERY HIGH 0-19 Y 0 - 109 --- 110-129 >/= 130 ---- 20-24 Y 0 - 119 --- 120-159 >/= 160 ---- >24 Y 0 - 99 100-129 130-159 160-189 >/=190. Cholesterol.total/Cho lesterol in HDL [Mass ratio] 3.5 {ratio} [employer] Work Phone: [phone] Comment on above: REF VALUESDESIRABLE < 3.4HIGH RISK > 5.0 Triglyceride [Mass/Vol] 95 mg/dL 0 - 149 [employer] Work Phone: Comment on above: . AGE DESIRABLE BORD TONIA HIGH HIGH VERY HIGH 0 D-90 D 19 - 174 ---- ---- ----91 D- 9 Y 0 - 74 75 - 99 >/= 100 ---- 10-19 Y 0 - 89 90 - 129 >/= 130 ---- 20-24 Y 0 - 114 115 - 149 >/= 150 ---- >24 Y 0 - 149 150 - 199 200- 499 >/= 500. Venipuncture immediately after or during the administration of Metamizole may lead to falsely low results. Testing should be performed immediately prior to Metamizole dosing. Lipid Panel 19 mg/dL 0 - 40 [facility] [place] Work Phone: Metabolic Panelon 05-15-2020 ALP [Catalytic activity/Vol] 50 U/L 33 - 136 [facility] [place] Work Phone: Anion gap [Moles/Vol] 10 mmol/L 10 - 20 [facility]- [facility] [place] Work Phone: Bilirubin [Mass/Vol] 1.1 mg/dL 0.0 - 1.2 [facility] [place] Work Phone: Calcium [Mass/Vol] 9.9 mg/dL 8.6 - 10.3 -[facility] Work Phone: Chloride [Moles/Vol] 104 mmol/L 98 - 107 -[facility] [place] 2099 Work Phone: CO2 [Moles/Vol] 31 mmol/L 21 - 32 [facility] 2099 Work Phone: Creatinine [Mass/Vol] 0.71 mg/dL See Below [facility] 2099 Work Phone: Comment on above: Reference Range: 0.5 0 - 1.05 Glucose [Mass/Vol] 92 mg/dL 74 - 99 -[facility] 2099 Work Phone: Potassium [Moles/Vol] 3.9 mmol/L 3.5 - 5.3 [facility] 2099 Work Phone: Protein [Mass/Vol] 7.3 g/dL 6.4 - 8.2 -[facility] 2099 Work Phone: Sodium [Moles/Vol] 141 mmol/L 136 - 145 [facility] 2099 Work Phone: Urea nitrogen [Mass/Vol] 11 mg/dL 6 - 23 [facility] 2099 Work Phone: Otheron 05-15-2020 Albumin BCP dye [Mass/Vol] 4.3 g/dL 3.4 - 5.0 [facility] 2099 Work Phone: ALT With P-5'-P [Catalytic activity/Vol] 14 U/L 7 - 45 [facility] 2099 Work Phone: Comment on above: Patients treated wit h Sulfasalazine may generate falsely decreased results for ALT. AST With P-5'-P [Catalytic activity/Vol] 20 U/L 9 - 39 -[facility] [place] [address]99 Work Phone: Erythrocyte distribution width (RBC) [Ratio] 13.3 % See Below [facility] [place] 2100 Work Phone: Comment on above: Reference Range: 11. 5 - 14.5 MCHC (RBC) [Mass/Vol] 31.7 g/dL below low threshold See Below [facility] [place] [facility] Work Phone: Comment on above: Reference Range: 32. 0 - 36.0 >60 >60 [facility] [place] [facility] Work Phone: Comment on above: CALCULATIONS OF SOPHIE MATED GFR ARE PERFORMED USING THE MDRD STUDY EQUATION FOR THE IDMS-TRACEABLE CREATININE METHODS. CLIN CHEM 2007;53:766-72 CORONAVIRUS 2019 BY PCRon CORONAVIRUS 2019,PCR NOT DETECTED Normal Not Detected [facility] Comment on above: Result Comment: . This assay is designed to detect the N, ORF1ab and/or S genes of SARS-CoV-2 via nucleic acid amplification. A Negative (NOT DETECTED) result does not preclude 2019-nCoV infection since the adequacy of sample collection and/or low viral burden may result in presence of viral nucleic acids below the clinical sensitivity of this test method. Negative (NOT DETECTED) result should not be used as the sole basis for treatment or other patient management decisions. Rather negative results should be combined with clinical observations, patient history, and epidemiological information to make patient management decisions. Fact sheet for providers: https://www.fda.gov/media/843257/download Fact sheet for patients: https://www.fda.gov/media/153479/download This test has received FDA Emergency Use Authorization (EUA) and has been verified by [facility] ([facility]). This test is only authorized for the duration of time that circumstances exist to justify the authorization of the emergency use of in vitro diagnostic tests for the detection of SARS-CoV-2 virus and/or diagnosis of COVID-19 infection under section 564(b)(1) of the Act, 21 U.S.C. 360bbb-3(b)(1), unless the authorization is terminated or revoked sooner. [facility] is certified under CLIA-88 as qualified to perform high complexity testing. Testing is performed in the [facility] laboratories located at [address] [place] [address]. Performed By: #### C OV19 #### [facility] [address] [place] [address] CORONAVIRUS 2019 BY PCRon Lab Specimen Source Nasal, Nasopharyngeal Normal [facility] Comment on above: Performed By: #### C OV19 #### [facility] [address] [place] [address] Coronavirus 2019 RNA by PCR, Symptomaticon 04-23-2020 EMPLOYED IN HEALTHCARE Unknown [facility] [place] [facility] Work Phone: FIRST COVID NASAL SWAB TEST? Unknown [facility] [place] [facility] Work Phone: ICU? Unknown [facility] [place] [facility] Work Phone: Patient was hospitalized because of this condition Unknown [facility] [place] [facility] Work Phone: status Unknown [facility]- [facility] [place] [facility] Work Phone: RESIDENT IN CONGREGATE CARE SETTING? Unknown [facility] [place] [facility] Work Phone: SYMPTOMATIC DEFINED BY CDC Unknown [facility] [place] [facility] Work Phone: Coronavirus 2019 RNA by PCR, Symptomatic NOT DETECTED See Below [facility] [place] [address] Work Phone: Comment on above: SOURCE: Nasal, Nasop haryngealReference Range: Not Detected.This assay is designed to detect the N, ORF1ab and/or S genes of SARS-CoV-2 via nucleic acid amplification. A Negative (NOT DETECTED) result does not preclude 2019-nCoV infection since the adequacy of sample collection and/or low viral burden may result in presence of viral nucleic acids below the clinical sensitivity of this test method. Negative (NOT DETECTED) result should not be used as the sole basis for treatment or other patient management decisions. Rather negative results should be combined with clinical observations, patient history, and epidemiological information to make patient management decisions.Fact sheet for providers: https://www.fda.gov/media/163887/downloadFact sheet for patients: https://www.fda.gov/media/759035/downloadThis test has received FDA Emergency Use Authorization (EUA) and has been verified by [facility] ([facility]). This test is only authorized for the duration of time that circumstances exist to justify the authorization of the emergency use of in vitro diagnostic tests for the detection of SARS-CoV-2 virus and/or diagnosis of COVID-19 infection under section 564(b)(1) of the Act, 21 U.S.C. 360bbb-3(b)(1), unless the authorization is terminated or revoked sooner. [facility] is certified under CLIA-88 as qualified to perform high complexity testing. Testing is performed in the [facility] laboratories located at [address] [place] [address]. CORONAVIRUS 2019 BY PCRon EMPLOYED IN HEALTHCARE? Unknown Normal [facility] Comment on above: Performed By: #### C OV19 #### [address] [place] [address] FIRST COVID NASAL SWAB TEST? Unknown Normal [facility] Comment on above: Performed By: #### C OV19 #### [address] [place] [address] HOSPITALIZED (OR PLANNED TO BE ADMITTED)? Unknown Normal [facility] Comment on above: Performed By: #### C OV19 #### [address] [place] [address] ICU? Unknown Normal [facility] Comment on above: Performed By: #### C OV19 #### [address] [facility] [address] ? Unknown Normal [facility] Comment on above: Performed By: #### C OV19 #### [address] [place] [address] RESIDENT IN CONGREGATE CARE SETTING? Unknown Normal [facility] Comment on above: Performed By: #### C OV19 #### [address] [place] [address] SYMPTOMATIC DEFINED BY CDC? Unknown Normal [facility] Comment on above: Performed By: #### C OV19 #### [facility] [address] [place] [address] Mamm - Screening Mammogram w / Tomosynthesison 12-27-2019 MG Breast screening Interpreted by: WASHINGTON SANTOS12/28/19 12:17MRN: [id number] Name: TIFFANIE GOMEZ STUDY:DIGITAL MAMM SCREENING W/ BEBA; 12/27/2019 4:12 pm ORDERING CLINICIAN:NATHALIA LOU INDICATION:Screening. No family history of breast cancer. COMPARISON:08/30/2018, 08/06/2017, 08/03/2016, 06/13/2014 FINDINGS:2D and tomosynthesis images were reviewed at 1 mm slice thickness. There are areas of scattered fibroglandular tissue. No suspiciousmasses or calcifications are identified. IMPRESSION:No mammographic evidence of malignancy. BI-RADS CATEGORY: Category: 1 - Negative.Recommendation: 1 Year Screening. For any future breast imaging appointments, please call [phone]). Patient letter sent SNORM Electronically signed by: ALLY SANTOS 12/28/19 12:17 Normal [facility] [place] 2099 Work Phone: Comment on above: ORDER REVISED TO A D IGITAL MAMM SCREENING W/ BEBA BY RADIOLOGIST; Original Order Number: [id number] IO UA (automated w/o microsc opy)on 12-14-2019 Protein (U) [Mass/Vol] Negative [facility] [place] 2099 Work Phone: IO UA (automated w/o microscopy) Yellow [facility] [place] 2099 Work Phone: IO UA (automated w/o microscopy) Clear [facility] [place] 2099 Work Phone: IO UA (automated w/o microscopy) Negative [facility] [place] 2099 Work Phone: IO UA (automated w/o microscopy) 1.015 [facility] [place] 2099 Work Phone: IO UA (automated w/o microscopy) 7.5 [facility] [place] [facility] Work Phone: IO UA (automated w/o microscopy) Normal (0.2-1.0 mg/dl) [facility] [place] [facility] Work Phone: T4 - Free Thyroxine, Serumon 12-04-2019 Free T4 [Mass/Vol] 1.30 ng/dL See Below MG-OBG YN-[place] 2420 DO Work Phone: Comment on above: Reference Range: 0.7 8 - 1.48 Thyroxine Free testing is performed using different testing methodology at [facility] than at other [facility]. Direct result comparisons should only be made within the same method. Ordering Provider: Hortencia RAMIREZ [id number] TSH - Thyroid Stimulating Ho rmone, Serumon 12-04-2019 TSH Qn 0.96 {mIU/L} See Below [facility] [place] 2420 DO Work Phone: Comment on above: Reference Range: 0.4 4 - 3.98 TSH testing is performed using different testing methodology at [facility] than at other [facility]. Direct result comparisons should only be made within the same method. Ordering Provider: Hortencia RAMIREZ [id number] Triiodothyronine, Level (T3) on 12-04-2019 T3 [Mass/Vol] 113 ng/dL 60 - 200 [facility] [place] 2420 DO Work Phone: Comment on above: Ordering Provider: Hortencia RAMIREZ [id number] DIGITAL MAMMO SCREENING W TO Rosa 08-30-2018 DIGITAL MAMMO SCREENING W BEBA STUDY: DIGITAL MAMMO SCREENING W BEBA; 08/30/2018 10:47 am ACCESSION NUMBER(S): [id number] ORDERING CLINICIAN: Nathalia Lou INDICATION: Screening. COMPARISON: 08/06/2017, 05/21/2017, and priors dating back to 2009 FINDINGS: 2D and tomosynthesis images were reviewed at 1 mm slice thickness. There are areas of scattered fibroglandular tissue. No suspicious masses or calcifications are identified. IMPRESSION: No mammographic evidence of malignancy. BI-RADS CATEGORY: Category: 1 - Negative. Recommendation: 1 Year Screening. For any future breast imaging appointments, please call [phone]). Patient letter sent SNORM Normal [facility] PATHOLOGY SPECIMENon 019 PATHOLOGY SPEC Normal [facility] Comment on above: Order Comment: Comme nt: HEPATIC FLEXURE POLYP Comment: TRANSVERSE POLYP Comment: SIGMOID POLYP Result Comment: Note : Specimens received on or after January: * Reports will be faxed to all physician's office. If you are a physician or have access to [employer]: * Pathology and Cytology reports are located in [employer] [facility] in the folder labeled Medical Record Forms. * Reports are also in the Physician Portal. * For assistance locating reports call: (LAB) [phone] Performed By: #### L PATH #### [facility] ([facility]) [address] [place] [address] Vital Signs Date Time Vital Sign Value Performing Clinician Facility 03-13-2025 13:04-0400 Body height 157.[address] Bello Davenport MD Work Phone: [facility] 03-13-2025 13:04-0400 Body mass index (BMI) [Ratio] 24.7 kg/m2 Dr. Bello Davenport MD Work Phone: [facility] 03-13-2025 13:04-0400 Body weight 61.[address] Bello Davenport MD Work Phone: [facility] 03-13-2025 13:04-0400 Diastolic blood pressure 74 mm[Hg] Dr. Bello Davenport MD Work Phone: [facility] 03-13-2025 13:04-0400 Heart rate 70 /min Dr. Bello Davenport MD Work Phone: [facility] 03-13-2025 13:04-0400 Systolic blood pressure 106 mm[Hg] Dr. Bello Davenport MD Work Phone: [facility] 03-08-2025 08:27-0400 Body mass index (BMI) [Ratio] 25.1 kg/m2 Dr. Bello Davenport MD Work Phone: [phone] [place] [address] 03-08-2025 08:27-0400 Body weight 62.[address] Bello Davenport MD Work Phone: [phone] [place] [address] 03-08-2025 07:16-0400 Body temperature 98.3 [degF] Dr. Bello Davenport MD Work Phone: 4([phone])[phone] [place] [address] 03-08-2025 07:16-0400 Diastolic blood pressure 62 mm[Hg] Dr. Bello Davenport MD Work Phone: 1(558)[phone] [place] [address] 03-08-2025 07:16-0400 Heart rate 65 /min Dr. Bello Davenport MD Work Phone: [phone] [place] [address] 03-08-2025 07:16-0400 Respiratory rate 12 /min Dr. Bello Davenport MD Work Phone: [phone] [place] [address] 03-08-2025 07:16-0400 SaO2% (BldA) [Mass fraction] 97 % Dr. Bello Davenport MD Work Phone: [phone] [place] [address] 03-08-2025 07:16-0400 Systolic blood pressure 99 mm[Hg] Dr. Bello Davenport MD Work Phone: 1(067)[phone] [place] [address] 03-08-2025 05:49-0400 Body height 157.[address] Bello Davenport MD Work Phone: [phone] [place] [address] 03-08-2025 05:49-0400 Body mass index (BMI) [Ratio] 25.2 kg/m2 Dr. Bello Davenport MD Work Phone: [phone] [place] [address] 03-08-2025 05:49-0400 Body weight 62.[address] Bello Davenport MD Work Phone: 7(858)[phone] [place] [address] 02-08-2025 09:41-0400 Body height 157.[address] Bello Davenport MD Work Phone: [phone] [place] [address] 02-08-2025 09:41-0400 Body mass index (BMI) [Ratio] 25.1 kg/m2 Dr. Bello Davenport MD Work Phone: 5(523)452-455673 [place] [address] 02-08-2025 09:41-0400 Body weight 62.[address] Bello Davenport MD Work Phone: [facility] 01-16-2025 11:01-0400 Body height 159.3 cm Janina Kalka PA-C Work Phone: [facility] 01-16-2025 11:01-0400 Body mass index (BMI) [Ratio] 24.27 kg/m2 Janina Kalka PA-C Work Phone: [facility] 01-16-2025 11:01-0400 Body weight 61.6 kg Janina Kalka PA-C Work Phone: [facility] 01-16-2025 11:01-0400 Diastolic blood pressure 80 mm[Hg] Janina Kalka PA-C Work Phone: [facility] 01-16-2025 11:01-0400 Heart rate 72 /min Janina Kalka PA-C Work Phone: [facility] 01-16-2025 11:01-0400 Systolic blood pressure 118 mm[Hg] Janina Kalka PA-C Work Phone: [facility] 01-12-2025 11:20-0400 Body mass index (BMI) [Ratio] 24.8 kg/m2 Dr. Bello Davenport MD Work Phone: [facility] 01-12-2025 11:20-0400 Body height 157.[address] Bello Davenport MD Work Phone: [facility] 01-12-2025 11:20-0400 Body weight 61.[address] Bello Davenport MD Work Phone: [facility] 01-12-2025 10:51-0400 Diastolic blood pressure 79 mm[Hg] Dr. Bello Davenport MD Work Phone: [facility] 01-12-2025 10:51-0400 Heart rate 71 /min Dr. Bello Davenport MD Work Phone: [facility] 01-12-2025 10:51-0400 SaO2% (BldA) [Mass fraction] 98 % Dr. Bello Davenport MD Work Phone: [facility] 01-12-2025 10:51-0400 Systolic blood pressure 126 mm[Hg] Dr. Bello Davenport MD Work Phone: [facility] 12-29-2024 09:38-0400 Body mass index (BMI) [Ratio] 24.43 kg/m2 Ashley Lynn MD Work Phone: [facility] 12-29-2024 09:38-0400 Body weight 62 kg Ashley Lynn MD Work Phone: [facility] 12-29-2024 09:38-0400 Diastolic blood pressure 79 mm[Hg] Ashley Lynn MD Work Phone: [facility] 12-29-2024 09:38-0400 Heart rate 71 /min Ashley Lynn MD Work Phone: [facility] 12-29-2024 09:38-0400 SaO2% (BldA) [Mass fraction] 98 % Ashley Lynn MD Work Phone: [facility] 12-29-2024 09:38-0400 Systolic blood pressure 126 mm[Hg] Ashley Lynn MD Work Phone: [facility] 12-28-2024 10:44-0400 Body mass index (BMI) [Ratio] 24.27 kg/m2 Anna Tabor MD Work Phone: [facility] 12-28-2024 10:44-0400 Body weight 61.6 kg Anna Tabor MD Work Phone: [facility] 12-28-2024 10:44-0400 Diastolic blood pressure 85 mm[Hg] Anna Tabor MD Work Phone: [facility] 12-28-2024 10:44-0400 Heart rate 82 /min Anna Tabor MD Work Phone: [facility] 12-28-2024 10:44-0400 Respiratory rate 16 /min Anna Tabor MD Work Phone: [facility] 12-28-2024 10:44-0400 Systolic blood pressure 124 mm[Hg] Anna Tabor MD Work Phone: [facility] 12-26-2024 09:08-0400 Body height 157.[address] Bello Davenport MD Work Phone: [facility] 12-26-2024 09:08-0400 Body mass index (BMI) [Ratio] 24.9 kg/m2 Dr. Bello Davenport MD Work Phone: [facility] 12-26-2024 09:08-0400 Body weight 61.[address] Bello Davenport MD Work Phone: [facility] 12-26-2024 09:08-0400 Diastolic blood pressure 74 mm[Hg] Dr. Bello Davenport MD Work Phone: [facility] 12-26-2024 09:08-0400 Systolic blood pressure 122 mm[Hg] Dr. Bello Davenport MD Work Phone: [facility] 12-21-2024 11:17-0400 Body height 159.3 cm Pulm Wstr Work Phone: [facility] 12-21-2024 11:17-0400 Body mass index (BMI) [Ratio] 23.77 kg/m2 Pulm Wstr Work Phone: [facility] 12-21-2024 11:17-0400 Body weight 60.33 kg Pulm Wstr Work Phone: [facility] 12-21-2024 11:17-0400 Diastolic blood pressure 81 mm[Hg] Pulm Wstr Work Phone: [facility] 12-21-2024 11:17-0400 Heart rate 100 /min Pulm Wstr Work Phone: [facility] 12-21-2024 11:17-0400 Respiratory rate 16 /min Pulm Wstr Work Phone: [facility] 12-21-2024 11:17-0400 SaO2% (BldA) [Mass fraction] 98 % Pulm Wstr Work Phone: [facility] 12-21-2024 11:17-0400 Systolic blood pressure 133 mm[Hg] Pulm Wstr Work Phone: [facility] 11-30-2024 10:12-0400 Body height 160.4 cm Taqueria Vieira MD Work Phone: [facility] 11-30-2024 10:12-0400 Body mass index (BMI) [Ratio] 23.75 kg/m2 Taqueria Vieira MD Work Phone: [facility] 11-30-2024 10:12-0400 Body temperature 98.01 [degF] Taqueria Vieira MD Work Phone: [facility] 11-30-2024 10:12-0400 Body weight 61.1 kg Taqueria Vieira MD Work Phone: [facility] 11-30-2024 10:12-0400 Diastolic blood pressure 83 mm[Hg] Taqueria Vieira MD Work Phone: [facility] 11-30-2024 10:12-0400 Heart rate 86 /min Taqueria Vieira MD Work Phone: [facility] 11-30-2024 10:12-0400 SaO2% (BldA) [Mass fraction] 98 % Taqueria Vieira MD Work Phone: [facility] 11-30-2024 10:12-0400 Systolic blood pressure 120 mm[Hg] Taqueria Vieira MD Work Phone: [facility] 10-05-2024 10:39-0400 Body mass index (BMI) [Ratio] 24.1 kg/m2 Dr. Bello Davenport MD Work Phone: [facility] 10-05-2024 10:39-0400 Body weight 59.[address] Bello Davenport MD Work Phone: [facility] 10-05-2024 10:39-0400 Diastolic blood pressure 80 mm[Hg] Dr. Bello Davenport MD Work Phone: [facility] 10-05-2024 10:39-0400 Heart rate 83 /min Dr. Bello Davenport MD Work Phone: [facility] 10-05-2024 10:39-0400 SaO2% (BldA) [Mass fraction] 98 % Dr. Bello Davenport MD Work Phone: [facility] 10-05-2024 10:39-0400 Systolic blood pressure 140 mm[Hg] Dr. Bello Davenport MD Work Phone: [facility] 08-31-2024 10:11-0400 Body mass index (BMI) [Ratio] 24.7 kg/m2 Dr. Bello Davenport MD Work Phone: [facility] 08-31-2024 10:11-0400 Body weight 61.[address] Bello Davenport MD Work Phone: [facility] 11-13-2023 09:47-0400 Body mass index (BMI) [Ratio] 24.03 kg/m2 Leatha Torres APRN.[employer] PRESS OPERATOR Work Phone: [facility] 11-13-2023 09:47-0400 Body temperature 97.81 [degF] Leatha Torres APRN.[employer]DRA[employer] PRESS OPERATOR Work Phone: [facility] 11-13-2023 09:47-0400 Body weight 59.6 kg Leatha Torres APRN.[employer]NA[employer] H[employer] HYDRA[employer]IC PRESS OPERATOR Work Phone: [facility] 11-13-2023 09:47-0400 Diastolic blood pressure 79 mm[Hg] Leatha Torres APRN.[employer]NA[employer] H[employer] HYDRA[employer]IC PRESS OPERATOR Work Phone: [facility] 11-13-2023 09:47-0400 Heart rate 64 /min Leatha Torres APRN.[employer]NAMA H[employer] HYDRA[employer]IC PRESS OPERATOR Work Phone: [facility] 11-13-2023 09:47-0400 Respiratory rate 18 /min Leatha Torres APRN.[employer] H[employer] HYDRA[employer]IC PRESS OPERATOR Work Phone: [facility] 11-13-2023 09:47-0400 SaO2% (BldA) [Mass fraction] 100 % Leatha Torres APRN.[employer] HYDRA[employer]IC PRESS OPERATOR Work Phone: [facility] 11-13-2023 09:47-0400 Systolic blood pressure 135 mm[Hg] Leatha Torres LEGGER PRESS OPERATOR.PANAMA H[employer] HYDRA[employer]IC PRESS OPERATOR Work Phone: [facility] 10-04-2023 15:18-0400 Body height 157.5 cm Nathalia Sroka LEGGER PRESS OPERATOR.[employer]MA H[employer] HYDRA[employer]IC PRESS OPERATOR Work Phone: [facility] 10-04-2023 15:18-0400 Body mass index (BMI) [Ratio] 23.47 kg/m2 Nathalia Sroka LEGGER PRESS OPERATOR.PANAMA H[employer] HYDRA[employer]IC PRESS OPERATOR Work Phone: [facility] 10-04-2023 15:18-0400 Body temperature 98.49 [degF] Nathalia Sroka LEGGER PRESS OPERATOR.PANAMA H[employer] HYDRA[employer]IC PRESS OPERATOR Work Phone: [facility] 10-04-2023 15:18-0400 Body weight 58.2 kg Nathalia Sroka LEGGER PRESS OPERATOR.PANAMA H[employer] HYDRA[employer]IC PRESS OPERATOR Work Phone: [facility] 10-04-2023 15:18-0400 Diastolic blood pressure 83 mm[Hg] Nathalia Sroka LEGGER PRESS OPERATOR.PA[employer]MA [employer] HYDRA[employer]IC PRESS OPERATOR Work Phone: [facility] 10-04-2023 15:18-0400 Heart rate 79 /min Nathalia Sroka LEGGER PRESS OPERATOR.PANAMA [employer] HYDRA[employer]IC PRESS OPERATOR Work Phone: [facility] 10-04-2023 15:18-0400 Respiratory rate 18 /min Nathalia Sroka LEGGER PRESS OPERATOR.PANAMA H[employer] HYDRA[employer]IC PRESS OPERATOR Work Phone: [facility] 10-04-2023 15:18-0400 SaO2% (BldA) [Mass fraction] 97 % Nathalia Sroka LEGGER PRESS OPERATOR.PANAMA H[employer] HYDRA[employer]IC PRESS OPERATOR Work Phone: [facility] 10-04-2023 15:18-0400 Systolic blood pressure 129 mm[Hg] Nathalia Sroka LEGGER PRESS OPERATOR.[employer]MA H[employer] HYDRA[employer]IC PRESS OPERATOR Work Phone: [facility] 09-09-2023 10:54-0400 Body height 157.5 cm Mirella Sanchez PA-C Work Phone: [facility] 09-09-2023 10:54-0400 Body weight 58.1 kg Mirella Sanchez PA-C Work Phone: [facility] 07-22-2023 09:47-0500 Body temperature 97.5 [degF] Angel Schwyamilka LEGGER PRESS OPERATOR.[employer]MA [employer] HYDRA[employer] PRESS OPERATOR Work Phone: [facility] 07-22-2023 09:47-0500 Body weight 61.6 kg Angel Schwyamilka LEGGER PRESS OPERATOR.PANAMA H[employer] HYDRA[employer]IC PRESS OPERATOR Work Phone: [facility] 07-22-2023 09:47-0500 Diastolic blood pressure 94 mm[Hg] Angel Schwyamilka LEGGER PRESS OPERATOR.PANAMA H[employer] HYDRAULIC PRESS OPERATOR Work Phone: [facility] 07-22-2023 09:47-0500 Heart rate 85 /min Angel Dorene LEGGER PRESS OPERATOR.PANAMA H[employer] HYDRA[employer]IC PRESS OPERATOR Work Phone: [facility] 07-22-2023 09:47-0500 Respiratory rate 16 /min Angel Dorene LEGGER PRESS OPERATOR.PANAMA H[employer] HYDRA[employer]IC PRESS OPERATOR Work Phone: [facility] 07-22-2023 09:47-0500 SaO2% (BldA) [Mass fraction] 97 % Angel Catherine LEGGER PRESS OPERATOR.PANAMA HAT HYDRAULIC PRESS OPERATOR Work Phone: [facility] 07-22-2023 09:47-0500 Systolic blood pressure 128 mm[Hg] Angel Schwyamilka LEGGER PRESS OPERATOR.PANAMA HAT HYDRAULIC PRESS OPERATOR Work Phone: [facility] 07-15-2023 13:11-0500 Body height 157.5 cm Dominique Fisher MD Work Phone: [facility] 07-15-2023 13:11-0500 Body temperature 97.59 [degF] Dominique Fisher MD Work Phone: [facility] 07-15-2023 13:11-0500 Body weight 59.6 kg Dominique Fisher MD Work Phone: [facility] 07-15-2023 13:11-0500 Diastolic blood pressure 74 mm[Hg] Dominique Fisher MD Work Phone: [facility] 07-15-2023 13:11-0500 Heart rate 83 /min Dominique Fisher MD Work Phone: [facility] 07-15-2023 13:11-0500 SaO2% (BldA) [Mass fraction] 96 % Dominique Fisher MD Work Phone: [facility] 07-15-2023 13:11-0500 Systolic blood pressure 149 mm[Hg] Dominique Fisher MD Work Phone: [facility] 05-10-2023 10:26-0500 Body temperature 98.8 [degF] Madeline Hinojosa LEGGER PRESS OPERATOR.PANAMA [employer] HYDRAULIC PRESS OPERATOR Work Phone: [facility] 05-10-2023 10:26-0500 Body weight 60.33 kg Madeline Hinojosa LEGGER PRESS OPERATOR.PANAMA HAT HYDRAULIC PRESS OPERATOR Work Phone: [facility] 05-10-2023 10:26-0500 Diastolic blood pressure 72 mm[Hg] Madeline Hinojosa LEGGER PRESS OPERATOR.PANAMA HAT HYDRAULIC PRESS OPERATOR Work Phone: [facility] 05-10-2023 10:26-0500 Heart rate 82 /min Madeline Hinojosa LEGGER PRESS OPERATOR.PANAMA HAT HYDRAULIC PRESS OPERATOR Work Phone: [facility] 05-10-2023 10:26-0500 Respiratory rate 16 /min Madeline Hinojosa LEGGER PRESS OPERATOR.PANAMA HAT HYDRAULIC PRESS OPERATOR Work Phone: [facility] 05-10-2023 10:26-0500 SaO2% (BldA) [Mass fraction] 97 % Madeline Hinojosa LEGGER PRESS OPERATOR.PANAMA HAT HYDRAULIC PRESS OPERATOR Work Phone: [facility] 05-10-2023 10:26-0500 Systolic blood pressure 128 mm[Hg] Madeline Hinojosa LEGGER PRESS OPERATOR.PANAMA HAT HYDRAULIC PRESS OPERATOR Work Phone: [facility] 05-06-2023 10:11-0500 Body height 157.5 cm Jeremy Gómez LEGGER PRESS OPERATOR.PANAMA HAT HYDRAULIC PRESS OPERATOR Work Phone: [facility] 05-06-2023 10:11-0500 Body temperature 97.81 [degF] Jeremy Gómez LEGGER PRESS OPERATOR.PANAMA HAT HYDRAULIC PRESS OPERATOR Work Phone: [facility] 05-06-2023 10:11-0500 Body weight 59.78 kg Jeremy Albael LEGGER PRESS OPERATOR.PANAMA HAT HYDRAULIC PRESS OPERATOR Work Phone: [facility] 05-06-2023 10:11-0500 Diastolic blood pressure 76 mm[Hg] Jeremy Gómez LEGGER PRESS OPERATOR.PANAMA HAT HYDRAULIC PRESS OPERATOR Work Phone: [facility] 05-06-2023 10:11-0500 Heart rate 70 /min Jeremy Gómez LEGGER PRESS OPERATOR.PANAMA HAT HYDRAULIC PRESS OPERATOR Work Phone: [facility] 05-06-2023 10:11-0500 Respiratory rate 18 /min Jeremy Gómez LEGGER PRESS OPERATOR.PANAMA HAT HYDRAULIC PRESS OPERATOR Work Phone: [facility] 05-06-2023 10:11-0500 SaO2% (BldA) [Mass fraction] 98 % Jeremy Albael LEGGER PRESS OPERATOR.PANAMA HAT HYDRAULIC PRESS OPERATOR Work Phone: [facility] 05-06-2023 10:11-0500 Systolic blood pressure 122 mm[Hg] Jeremy Gómez LEGGER PRESS OPERATOR.PANAMA HAT HYDRAULIC PRESS OPERATOR Work Phone: [facility] 12-17-2022 15:35-0400 Body height 157.48 cm Piero Ortiz Work Phone: VV-POTSR-Wxbbyhly 2420 DO Work Phone: 12-17-2022 15:35-0400 Body mass index (BMI) [Ratio] 23.23 kg/m2 Piero Ortiz Work Phone: HL-MTURT-Erxailnj 2420 DO Work Phone: 12-17-2022 15:35-0400 Body surface area Derived from formula 1.58 m2 Piero Ortiz Work Phone: HU-SPFLY-Ljuzsjwy 2420 DO Work Phone: 12-17-2022 15:35-0400 Body weight 57.61 kg Piero Ortiz Work Phone: CA-QSIES-Ycgaxazm 2420 DO Work Phone: 12-17-2022 15:35-0400 Diastolic blood pressure 62 mm[Hg] Piero Ortiz Work Phone: ZH-SZSFP-Gpjepkii 2420 DO Work Phone: 12-17-2022 15:35-0400 Systolic blood pressure 112 mm[Hg] Piero Ortiz Work Phone: ZA-LLZHA-Ofoxtcha 2420 DO Work Phone: 12-17-2022 15:35-0400 0 1 Piero Ortiz Work Phone: HK-DWOUG-Pnsrzyeq 2420 DO Work Phone: Comment on above: [facility] 05-29-2022 08:22-0500 Body temperature 97.59 [degF] Lissette Kolb APRN.PANAMA HAT HYDRAULIC PRESS OPERATOR Work Phone: [facility] 05-29-2022 08:22-0500 Body weight 57.42 kg Lissette Kolb APRN.PANAMA HAT HYDRAULIC PRESS OPERATOR Work Phone: [facility] 05-29-2022 08:22-0500 Diastolic blood pressure 82 mm[Hg] Lissette Kolb APRN.PANAMA HAT HYDRAULIC PRESS OPERATOR Work Phone: [facility] 05-29-2022 08:22-0500 Heart rate 71 /min Lissette Kolb APRN.PANAMA HAT HYDRAULIC PRESS OPERATOR Work Phone: [facility] 05-29-2022 08:22-0500 Respiratory rate 18 /min Lissette Kolb APRN.PANAMA HAT HYDRAULIC PRESS OPERATOR Work Phone: [facility] 05-29-2022 08:22-0500 SaO2% (BldA) [Mass fraction] 100 % Lissette Kolb APRN.PANAMA HAT HYDRAULIC PRESS OPERATOR Work Phone: [facility] 05-29-2022 08:22-0500 Systolic blood pressure 118 mm[Hg] Lissette Kolb APRN.PANAMA HAT HYDRAULIC PRESS OPERATOR Work Phone: [facility] 03-02-2022 19:11-0400 Body temperature 100.09 [degF] Fred Her MD Work Phone: [facility] 03-02-2022 19:11-0400 Body weight 58.24 kg Fred Her MD Work Phone: [facility] 03-02-2022 19:11-0400 Diastolic blood pressure 80 mm[Hg] Fred Her MD Work Phone: [facility] 03-02-2022 19:11-0400 Heart rate 78 /min Fred Her MD Work Phone: [facility] 03-02-2022 19:11-0400 Respiratory rate 18 /min Fred Her MD Work Phone: [facility] 03-02-2022 19:11-0400 SaO2% (BldA) [Mass fraction] 98 % Fred Her MD Work Phone: [facility] 03-02-2022 19:11-0400 Systolic blood pressure 122 mm[Hg] Fred Her MD Work Phone: [facility] 12-11-2021 13:00-0400 Body height 157.48 cm Piero Ortiz Work Phone: RP-QUJIV-Fpboddua 2420 DO Work Phone: 12-11-2021 13:00-0400 Body mass index (BMI) [Ratio] 22.5 kg/m2 Piero Ortiz Work Phone: VD-JMPGE-Jpldgmhx 2420 DO Work Phone: 12-11-2021 13:00-0400 Body surface area Derived from formula 1.55 m2 Piero Ortiz Work Phone: WW-EGSRE-Piuqoeio 2420 DO Work Phone: 12-11-2021 13:00-0400 Body weight 55.79 kg Piero Ortiz Work Phone: EL-HUTGR-Wswvlbmd 2420 DO Work Phone: 12-11-2021 13:00-0400 Diastolic blood pressure 72 mm[Hg] Piero Ortiz Work Phone: XO-LHMRH-Pnzzjsfg 2420 DO Work Phone: 12-11-2021 13:00-0400 Systolic blood pressure 118 mm[Hg] Piero Ortiz Work Phone: FP-POYSC-Aqkxnqos 2420 DO Work Phone: 12-11-2021 13:00-0400 0 1 Piero Ortiz Work Phone: MA-EXALK-Woxpsyjb 2420 DO Work Phone: Comment on above: [facility] 11-06-2021 14:57-0400 Body height 157.48 cm Piero Ortiz Work Phone: MP-WSPC-[address] [place] [address] Work Phone: 11-06-2021 14:57-0400 Body mass index (BMI) [Ratio] 22.68 kg/m2 Piero Ortiz Work Phone: MP-WSPC-[facility] [place] [address] Work Phone: 11-06-2021 14:57-0400 Body surface area Derived from formula 1.56 m2 Piero Ortiz Work Phone: MP-WSPC-[address] [place] [address] Work Phone: 11-06-2021 14:57-0400 Body temperature 97.4 [degF] Piero Ortiz Work Phone: MP-WSPC-[facility] [place] [address] Work Phone: 11-06-2021 14:57-0400 Body weight 56.25 kg Piero Ortiz Work Phone: MP-WSPC-[facility] [place] [address] Work Phone: 11-06-2021 14:57-0400 Diastolic blood pressure 80 mm[Hg] Piero Ortiz Work Phone: MP-[facility]SPC-[facility] [place] [address] Work Phone: 11-06-2021 14:57-0400 Heart rate 91 /min Piero Ortiz Work Phone: MP-[facility]SPC[facility] [place] [address] Work Phone: 11-06-2021 14:57-0400 SaO2% (BldA) [Mass fraction] 98 % Piero Ortiz Work Phone: mp-WSPC-[address] [place] [address] Work Phone: 11-06-2021 14:57-0400 Systolic blood pressure 110 mm[Hg] Piero Ortiz Work Phone: mp-WSPC-[address] [place] [address] Work Phone: 09-08-2021 11:16-0400 Body temperature 98.71 [degF] Betzy Athy PA-C Work Phone: [facility] 09-08-2021 11:16-0400 Body weight 56.06 kg Betzy Athy PA-C Work Phone: [facility] 09-08-2021 11:16-0400 Diastolic blood pressure 86 mm[Hg] Betzy Athy PA-C Work Phone: [facility] 09-08-2021 11:16-0400 Heart rate 71 /min Betzy Athy PA-C Work Phone: [facility] 09-08-2021 11:16-0400 Respiratory rate 20 /min Betzy Athy PA-C Work Phone: [facility] 09-08-2021 11:16-0400 SaO2% (BldA) [Mass fraction] 99 % Betzy Athy PA-C Work Phone: [facility] 09-08-2021 11:16-0400 Systolic blood pressure 116 mm[Hg] Betzy Athy PA-C Work Phone: [facility] 07-23-2021 09:10-0500 Body height 157.48 cm Piero Ortiz Work Phone: [facility] Work Phone: 07-23-2021 09:10-0500 Body mass index (BMI) [Ratio] 22.31 kg/m2 Piero Ortiz Work Phone: [facility] Work Phone: 07-23-2021 09:10-0500 Body surface area Derived from formula 1.55 m2 Piero Ortiz Work Phone: [facility] Work Phone: 07-23-2021 09:10-0500 Body weight 55.34 kg Piero Ortiz Work Phone: [facility] Work Phone: 07-23-2021 09:10-0500 Diastolic blood pressure 60 mm[Hg] Piero Ortiz Work Phone: [facility] Work Phone: 07-23-2021 09:10-0500 Heart rate 82 /min Piero Ortiz Work Phone: [facility] Work Phone: 07-23-2021 09:10-0500 Systolic blood pressure 98 mm[Hg] Piero Ortiz Work Phone: [facility] Work Phone: 06-30-2021 08:06-0500 Body height 157.48 cm Piero Ortiz Work Phone: MP-[facility]SPC-[address] [place] [address] Work Phone: 06-30-2021 08:06-0500 Body mass index (BMI) [Ratio] 23.05 kg/m2 Piero Ortiz Work Phone: MP-[facility] [place] [address] Work Phone: 06-30-2021 08:06-0500 Body surface area Derived from formula 1.57 m2 Piero Ortiz Work Phone: MP-[facility] [place] [address] Work Phone: 06-30-2021 08:06-0500 Body temperature 97 [degF] Piero Ortiz Work Phone: MP-[facility] [place] [address] Work Phone: 06-30-2021 08:06-0500 Body weight 57.15 kg Piero Ortiz Work Phone: MP-[facility] [place] [address] Work Phone: 06-30-2021 08:06-0500 Diastolic blood pressure 80 mm[Hg] Piero Clementee Work Phone: MP-[facility] [place] [address] Work Phone: 06-30-2021 08:06-0500 Heart rate 74 /min Piero Clementee Work Phone: MP-[facility] [place] [address] Work Phone: 06-30-2021 08:06-0500 SaO2% (BldA) [Mass fraction] 98 % Piero Ortiz Work Phone: MP-[facility] [place] [address] Work Phone: 06-30-2021 08:06-0500 Systolic blood pressure 100 mm[Hg] Piero Ortiz Work Phone: MP-[facility] [place] [address] Work Phone: 03-03-2021 11:45-0400 Body height 157.48 cm Piero Clementee Work Phone: CX-Wcfkbdtcggka-We sman [address] Work Phone: 03-03-2021 11:45-0400 Body mass index (BMI) [Ratio] 21.4 kg/m2 Piero Joey Angel Work Phone: FR-Raxwiasuoelf-Ft sman [address] Work Phone: 03-03-2021 11:45-0400 Body surface area Derived from formula 1.52 m2 Piero Ortiz Work Phone: ZD-Ruuwijmvjzas-Xt sman [address] Work Phone: 03-03-2021 11:45-0400 Body temperature 96.8 [degF] Piero Ortiz Work Phone: MG-Ylmsndplujqa-Nm sman [address] Work Phone: 03-03-2021 11:45-0400 Body weight 53.07 kg Piero Ortiz Work Phone: IT-Rsmcqcubsbzz-Qm sman [address] Work Phone: 03-03-2021 11:45-0400 Diastolic blood pressure 90 mm[Hg] Piero Ortiz Work Phone: ST-Nmsrudgbjosn-Ur sman [address] Work Phone: 03-03-2021 11:45-0400 Heart rate 89 /min Piero Ortiz Work Phone: ZD-Tazwkouqsjxm-Fi sman [address] Work Phone: 03-03-2021 11:45-0400 Systolic blood pressure 137 mm[Hg] Piero Ortiz Work Phone: EU-Ytmbuuteurdk-Cx sman [address] Work Phone: 05-15-2020 10:42-0500 BMI (Body Mass Index) 20.67 kg/m2 Piero Clementee CIPRIANO-WSPC-[facility] [place] [address] Work Phone: 05-15-2020 10:42-0500 Body Temperature 98.3 [degF] Piero Angel COTA-WSPC-[facility] [place] [address] Work Phone: 05-15-2020 10:42-0500 Body weight 51.26 kg Piero Angel CIPRIANO-WSPC-[facility] [place] [address] Work Phone: 05-15-2020 10:42-0500 BP Diastolic 80 mm[Hg] Piero Angel MP-WSPC-[facility] [place] [address] Work Phone: 05-15-2020 10:42-0500 BP Systolic 120 mm[Hg] Piero DELGADILLOWSPC-[address] [place] [address] Work Phone: 05-15-2020 10:42-0500 BSA (Body Surface Area) 1.5 m2 Piero DELGADILLOWSPC-[place] [address] Work Phone: 05-15-2020 10:42-0500 Height 157.48 cm Piero DELGADILLOWSPC-[place] [address] Work Phone: 05-15-2020 10:42-0500 Pulse (Heart Rate) 60 /min Piero DELGADILLOWSPC-[place] [address] Work Phone: 05-15-2020 10:42-0500 Respiratory Rate 15 /min Piero DELGADILLOWSPC-[place] [address] Work Phone: 04-24-2020 10:43-0500 BMI (Body Mass Index) 20.49 kg/m2 Piero DELGADILLOWSPC-[place] [address] Work Phone: 04-24-2020 10:43-0500 Body Temperature 97.4 [degF] Piero DELGADILLOWSPC-[address] [place] [address] Work Phone: 04-24-2020 10:43-0500 Body weight 50.8 kg Piero DELGADILLOWSPC-[place] [address] Work Phone: 04-24-2020 10:43-0500 BSA (Body Surface Area) 1.49 m2 Piero DELGADILLOWSPC-[place] [address] Work Phone: 04-24-2020 10:43-0500 Height 157.48 cm Piero DELGADILLOWSPC-[place] [address] Work Phone: 04-18-2020 17:46-0500 BMI (Body Mass Index) 20.49 kg/m2 Piero Ortiz MP-WSPC[facility] [place] [address] Work Phone: 04-18-2020 17:46-0500 Body weight 50.8 kg Piero DELGADILLOWSPC-[place] [address] Work Phone: 04-18-2020 17:46-0500 BSA (Body Surface Area) 1.49 m2 Piero Ortiz MP-WSPC-[facility] [place] [address] Work Phone: 04-18-2020 17:46-0500 Height 157.48 cm Piero Ortiz MP-WSPC-[facility] [place] [address] Work Phone: 01-16-2020 17:09-0400 BMI (Body Mass Index) 21.03 kg/m2 Piero Ortiz MP-WSPC-[facility] [place] [address] Work Phone: 01-16-2020 17:09-0400 Body weight 52.16 kg Piero Ortiz MP-WSPC-[facility] [place] [address] Work Phone: 01-16-2020 17:09-0400 BSA (Body Surface Area) 1.51 m2 Piero Ortiz MP-WSPC-[facility] [place] [address] Work Phone: 01-16-2020 17:09-0400 Height 157.48 cm Piero Ortiz MP-WSPC-[facility] [place] [address] Work Phone: 12-14-2019 10:41-0400 BMI (Body Mass Index) 21.03 kg/m2 Nathalia Lou MP-[facility]SPC[facility] [place] [address] Work Phone: 12-14-2019 10:41-0400 Body Temperature 97.6 [degF] Nathalia Lou MP-[facility]SPC[facility] [place] [address] Work Phone: 12-14-2019 10:41-0400 Body weight 52.16 kg Nathalia Lou MP-[facility]SPC-[facility] [place] [address] Work Phone: 12-14-2019 10:41-0400 BP Diastolic 80 mm[Hg] Nathalia Lou MP-[facility]SPC[facility] [place] [address] Work Phone: 12-14-2019 10:41-0400 BP Systolic 118 mm[Hg] Nathalia Lou MP-[facility]SPC-[facility] [place] [address] Work Phone: 12-14-2019 10:41-0400 BSA (Body Surface Area) 1.51 m2 Nathalia Lou MP-[facility]SPC-[facility] [place] [address] Work Phone: 12-14-2019 10:41-0400 Height 157.48 cm Nathalia Lou MP-[facility]SPC-[facility] [place] [address] Work Phone: 12-14-2019 10:41-0400 Pulse (Heart Rate) 66 /min Nathalia Lou MP-[facility]SPC[facility] [place] [address] Work Phone: 12-14-2019 10:41-0400 Respiratory Rate 16 /min Nathalia Lou MP-[facility]SPC[facility] [place] [address] Work Phone: 12-13-2019 12:41-0400 BMI (Body Mass Index) 21.03 kg/m2 Nathalia Mckeonch QJ-OOSHQ-Macxoqnf 2420 DO Work Phone: 12-13-2019 12:41-0400 Body weight 52.16 kg Nathalia Mckeonch FW-OVMTI-Zkgxzjb e 2420 DO Work Phone: 12-13-2019 12:41-0400 BP Diastolic 64 mm[Hg] Nathalia Lasch XO-KAAXM-Krwiqja e 2420 DO Work Phone: 12-13-2019 12:41-0400 BP Systolic 112 mm[Hg] Nathalia Lasch CG-AULKH-Hrcmbmv e 2420 DO Work Phone: 12-13-2019 12:41-0400 BSA (Body Surface Area) 1.51 m2 Nathalia Mckeonch ZI-MCAAT-Sjxidphm 2420 DO Work Phone: 12-13-2019 12:41-0400 Height 157.48 cm Nathalia Lasch VL-PYWOW-Tjijdni e 2420 DO Work Phone: 12-13-2019 12:41-0400 0 1 Nathalia Lasch IR-DQISH-Tbsuzfs e 2420 DO Work Phone: Comment on above: [facility] 11-22-2019 15:10-0400 BMI (Body Mass Index) 21.03 kg/m2 Nathaliashobha Mckeonch RP-PRCAN-Eytlwpbh 2420 DO Work Phone: 11-22-2019 15:10-0400 Body Temperature 97.3 [degF] Nathalia Lou GX-CHKUU-Mcfgav ke 2420 DO Work Phone: 11-22-2019 15:10-0400 Body weight 52.16 kg Nathalia Mckeonch LH-MEPMV-Gnpvsfk e 2420 DO Work Phone: 11-22-2019 15:10-0400 BP Diastolic 70 mm[Hg] Nathalia Lou ST-QXAJE-Brhuhpt e 2420 DO Work Phone: 11-22-2019 15:10-0400 BP Systolic 110 mm[Hg] Nathalia Lou EJ-DFTOU-Noajdyu e 2420 DO Work Phone: 11-22-2019 15:10-0400 BSA (Body Surface Area) 1.51 m2 Nathalia Lou MX-QLVBA-Zkkbfqii 2420 DO Work Phone: 11-22-2019 15:10-0400 Height 157.48 cm Nathalia Mckeonch SX-UJUAV-Bidbkwa e 2420 DO Work Phone: 11-22-2019 15:10-0400 Pulse (Heart Rate) 70 /min Nathalia Lou RL-HCXRL-Jyfx sue 2420 DO Work Phone: 11-22-2019 15:10-0400 Respiratory Rate 16 /min Nathalia Lou NI-SVIHX-Loojwk ke 2420 DO Work Phone: 10-06-2018 12:39-0400 BMI (Body Mass Index) 23.41 kg/m2 Piero Ortiz FU-GHKHJ-Ynuphnpn 2420 DO Work Phone: 10-06-2018 12:39-0400 BP Diastolic 70 mm[Hg] Piero Ortiz HQ-QKZLM-Binotma e 2420 DO Work Phone: 10-06-2018 12:39-0400 BP Systolic 110 mm[Hg] Piero RIVERA-[facility]GY[facility]-[place] 2420 DO Work Phone: 10-06-2018 12:39-0400 BSA (Body Surface Area) 1.58 m2 Piero RIVERAKD-VJRJJ-Puljdvpo 2420 DO Work Phone: 10-06-2018 12:39-0400 Height 157.48 cm Piero RIVERA-[facility] 2420 DO Work Phone: 10-06-2018 12:39-0400 Weight 58.06 kg Piero RIVERA-[facility]-[place] 2420 DO Work Phone: 10-06-2018 12:39-0400 0 1 Piero RIVERA-[facility]-[place] 2420 DO Work Phone: Comment on above: Pain Scale Encounters Encounter Date Encounter Type Care Provider Facility Start: 04-10-2025 End: 04-10-2025 ambulatory Bello Chi Issac Facility:[facility] Start: 04-09-2025 ambulatory Bello Chi Issac Facility:[facility] Start: 04-03-2025 End: 04-03-2025 ambulatory BELLO CHI ISSAC Facility:[facility] Start: 04-02-2025 ambulatory Bello Chi Issac Facility:[facility] Start: 03-29-2025 End: 03-29-2025 ambulatory BELLO CHI ISSAC Facility:[facility] Start: 03-28-2025 End: 03-30-2025 ambulatory Bello Chi Issac Facility:[facility] Start: 03-13-2025 End: 03-13-[address] Ally Bailey MD -[facility] Work Phone: Start: 03-13-2025 End: 03-13-2025 ambulatory Dr. Bello Davenport MD Work Phone: -[facility] Start: 03-08-2025 ambulatory Bello Chi Issac Facility:[facility] Start: 03-08-2025 Non-patient / Non-visit Chuck Hancock nd, DO [facility] Start: 03-08-2025 End: 03-08-2025 Admission to same day surgery center Chuck Dalton DO -Endoscopy Work Phone: Start: 03-08-2025 End: 03-08-[address] Bello Davenport MD Work Phone: -Endoscopy Start: 03-07-[address] Bello zhang MD Work Phone: -Pulmonary Rehab Work Phone: Start: 02-28-[address] Bello zhang MD Work Phone: -Pulmonary Rehab Work Phone: Start: 02-26-2025 End: 02-27-[address] Bello Davenport MD Work Phone: -Pulmonary Rehab Start: 02-26-2025 End: 02-27-[address] Bello Davenport MD Work Phone: -Pulmonary Rehab Work Phone: Start: 02-22-2025 End: 02-22-2025 ambulatory BELLO DAVENPORT Facility:[facility] Start: 02-20-2025 ambulatory TAQUERIA Burnett DARIEL Facility :[facility] Start: 01-26-2025 End: 01-28-[address] Bello Davenport MD Work Phone: -Pulmonary Rehab Start: 01-26-2025 End: 01-28-[address] Bello Davenport MD Work Phone: -Pulmonary Rehab Work Phone: Start: 01-22-[address] Bello zhang MD Work Phone: -Pulmonary Rehab Work Phone: Start: 01-18-2025 End: 01-18-[address] Bello Davenport MD Work Phone: -Outpatient Breast Imaging Start: 01-18-2025 End: 01-18-2025 Patient encounter procedure Lise CALDERA -Outpatient Breast Imaging Work Phone: Start: 01-18-2025 End: 01-18-2025 ambulatory [facility] Facility:[facility] Start: 01-16-2025 End: 01-16-2025 Patient encounter procedure Janina Miranda PA-C Work Phone: G[facility] [place] Comment on above: Gastroesophageal ref lux disease, unspecified whether esophagitis present (Primary Dx); LUQ discomfort; Change in bowel habits Start: 01-16-2025 End: 01-16-2025 ambulatory [facility] Facility:[facility] Start: 01-15-[address] Bello zhang MD Work Phone: -Pulmonary Rehab Work Phone: Start: 01-12-2025 End: 01-12-[address] Bello Davenport MD Work Phone: -Pulmonary Rehab Start: 01-12-2025 End: 01-12-[address] Bello Davenport MD Work Phone: -Pulmonary Rehab Work Phone: Start: 01-12-2025 End: 01-12-2025 ambulatory [facility] Facility:[facility] Start: 01-10-2025 End: 01-10-2025 Telephone encounter Anna Tabor MD Work Phone: Geriatrics Comment on above: Faxed to Dr. Gibson Start: 01-01-2025 End: 01-01-2025 Telephone encounter Ashley Lynn MD Work Phone: Pulmonary Medicine Start: 12-29-2024 End: 12-29-2024 Patient encounter procedure Ashley Lynn MD Work Phone: Pulmonary Medicine Comment on above: Dyspnea and respirat ory abnormalities (Primary Dx); Post-acute sequelae of COVID-19 (PASC); Chronic sinusitis, unspecified location; Fatigue, unspecified type Start: 12-29-2024 End: 12-29-2024 ambulatory [facility] Facility:[facility] Start: 12-28-2024 End: 12-28-2024 Office consultation new/estab patient 80 min Anna Tabor MD Work Phone: Geriatrics Comment on above: Brain fog (Primary D x); Psychophysiological insomnia; Post covid-19 condition, unspecified; Primary obstructive sleep apnea of Start: 12-28-2024 End: 12-28-2024 ambulatory BELLO DAVENPORT Facility:[facility] Start: 12-26-2024 End: 12-26-2024 Patient encounter procedure Lise Araya CEMENT KILN OPERATOR-C -[facility] Work Phone: Start: 12-26-2024 End: 12-26-2024 Patient encounter status Lise Araya CEMENT KILN OPERATOR-C [facility] Start: 12-26-2024 End: 12-26-[address] Bello Davenport MD Work Phone: -[facility] Start: 12-21-2024 End: 12-21-2024 Patient encounter procedure Pulm Lab [facility] Work Phone: [facility] Start: 12-21-2024 End: 12-21-2024 ambulatory Pulm [facility] Work Phone: [facility] Comment on above: Spirometry Start: 12-20-2024 End: 12-20-2024 Telemedicine consultation with patient Jeremy Schaeffer MD Work Phone: [facility] Start: 12-20-2024 End: 12-20-2024 ambulatory Jeremy Schaeffer MD Work Phone: [facility] Comment on above: Chronic fatigue synd solo (Primary Dx); Brain fog; Arthralgia, unspecified joint; Post-acute sequelae of COVID-19 (PASC) Start: 12-19-2024 End: 12-20-2024 Follow-up encounter Maddie Martínez APRN.CNP Work Phone: [facility] Comment on above: Results Start: 12-15-2024 End: 12-15-2024 ambulatory BELLO CHI ISSAC Facility:[facility] Start: 12-04-2024 End: 12-06-2024 Telephone encounter Taqueria Vieira MD Work Phone: [facility] [place] Comment on above: Results Results (Lab and Narda h test results) Start: 12-01-2024 End: 01-31-2025 Follow-up encounter Taqueria Vieira MD Work Phone: [facility] Start: 11-30-2024 End: 11-30-2024 ambulatory BELLO CHI ISSAC Facility:[facility] Start: 11-30-2024 End: 11-30-2024 Subsequent hospital visit by physician Xr [facility] 1 Xray [facility] Comment on above: Non-toxic multinodul ar goiter [E04.2] Start: 11-30-2024 End: 11-30-2024 Patient encounter procedure Taqueria Vieira MD Work Phone: [facility] Comment on above: Fatigue, unspecified type (Primary Dx); Post covid-19 condition, unspecified; Exercise intolerance; Hyperlipidemia, unspecified hyperlipidemia type; Gastroesophageal reflux disease with esophagitis, unspecified whether hemorrhage; Non-toxic multinodular goiter; Shortness of breath; Brain fog; Myalgia; Arthralgia, unspecified joint; Abdominal discomfort; Insomnia, unspecified type; Glossitis; Alopecia areata; Disorder of bone, unspecified; Knee pain, unspecified chronicity, unspecified laterality Start: 11-30-2024 End: 11-30-2024 ambulatory BELLO CHI ISSAC Facility:[facility] Start: 11-07-2024 End: 11-07-2024 Telephone encounter Taqueria Vieira MD Work Phone: [facility] Comment on above: Patient Question Start: 10-05-2024 End: 10-05-2024 Patient encounter procedure Pina CALDERA -[facility] Work Phone: Start: 10-05-2024 End: 10-05-2024 ambulatory Pina Robles Facility:[facility] Start: 09-27-2024 End: 09-27-2024 Follow-up encounter Ozzie Louis MD Work Phone: [facility] [place] Start: 09-25-2024 End: 09-25-2024 ambulatory BELLO CHI ISSAC Facility:[facility] Start: 09-11-2024 End: 09-13-2024 Telephone encounter Taqueria Vieira MD Work Phone: Pulmonology [facility] Comment on above: Appointment ([facility]) Start: 09-08-2024 End: 09-08-2024 ambulatory [facility] Facility:[facility] Start: 09-08-2024 End: 09-08-2024 Patient encounter procedure Ozzie Louis MD Work Phone: [facility] [place] Comment on above: Alopecia areata (Rosalva jenna Dx); Vitamin D deficiency Start: 08-31-2024 End: 08-31-[address] Shan Bolaños MD -[facility] Work Phone: Start: 08-31-2024 End: 08-31-2024 ambulatory Bello Davenport Facility:[facility] Start: 08-11-2024 End: 08-11-[address] Bello Davenport MD Work Phone: [facility] Work Phone: Start: 08-11-2024 End: 08-11-[address] Bello Davenport MD -Laboratory, Phy Office 3rd Flr Start: 08-11-2024 End: 08-11-2024 ambulatory [facility] Facility:[facility] Start: 07-02-2024 End: 07-02-2024 Emergency department patient visit [facility] Facility:[facility] Start: 05-22-2024 End: 05-22-[address] Bello Davenport MD -Laboratory, Phy Office 3rd Flr Start: 05-22-2024 End: 05-22-2024 ambulatory [facility] Facility:[facility] Start: 11-14-2023 Telephone encounter Ryanne NIXON Work Phone: [facility] Comment on above: Results Start: 11-13-2023 End: 11-13-2023 Patient encounter procedure Leatha Torres APRN.CNP Work Phone: [facility] Comment on above: Burning with urinati on (Primary Dx) Start: 10-14-2023 End: 10-15-2023 ambulatory JASWANT ANAND MD Facility:[id number] Start: 10-04-2023 End: 10-04-2023 Patient encounter procedure Nathalia Nugent PANAMA HAT HYDRAULIC PRESS OPERATOR Work Phone: [facility] Comment on above: Acute otitis media, left (Primary Dx) Start: 10-01-2023 End: 10-01-2023 ambulatory Demetris Garcia PT Work Phone: [facility] Comment on above: Pain in left hip; DDD (degenerative disc disease), lumbar Start: 09-23-2023 End: 09-24-2023 ambulatory JASWANT ANAND MD Facility:[id number] Start: 09-09-2023 End: 09-09-2023 Patient encounter procedure Mirella Sanchez PA-C Work Phone: Orthopaedics Comment on above: Pain in left hip (Pr imary Dx); DDD (degenerative disc disease), lumbar Start: 09-09-2023 End: 09-09-2023 Subsequent hospital visit by physician Radio General Dina Vazquez Work Phone: Radiology Comment on above: Bilateral hip pain [ M25.551, M25.552] Start: 09-03-2023 End: 09-03-2023 ambulatory [facility] Work Phone: Start: 09-03-2023 End: 09-03-2023 Patient encounter procedure [facility]-Cat Scan, [facility] Work Phone: Start: 08-20-2023 Orders Only Mirella diaz PA-C Work Phone: Orthopaedics Comment on above: Bilateral hip pain ( Primary Dx) Start: 08-11-2023 End: 08-11-2023 ambulatory [facility] Work Phone: Start: 08-11-2023 End: 08-11-2023 Patient encounter procedure [facility]-Laboratory, Phy Office 3rd Flr Start: 08-05-2023 End: 08-05-2023 Patient encounter procedure Alli Hutchinson MD, PhD Work Phone: Otolaryngology Comment on above: Nasal congestion (Pr imary Dx); Glossitis; Central perforation of tympanic membrane of left ear Start: 07-28-2023 Telephone encounter Jeremy Ramirez APRN.PANAMA HAT HYDRAULIC PRESS OPERATOR Work Phone: [facility] Comment on above: Results Start: 07-27-2023 ambulatory JEREMY RAMIREZ Facili ty:[facility] Start: 07-27-2023 End: 07-27-2023 Subsequent hospital visit by physician Mammo/Bone Density [facility] Comment on above: Post-menopausal [Z78 .0] Start: 07-22-2023 End: 07-22-2023 Office outpatient visit 25 minutes Angel [place] APRN.PANAMA HAT HYDRAULIC PRESS OPERATOR Work Phone: [facility] Comment on above: Acute sinusitis, rec urrence not specified, unspecified location (Primary Dx) Start: 07-21-2023 Orders Only Dominique Fisher MD Work Phone: Endocrinology Comment on above: Nontoxic multinodula r goiter (Primary Dx) Start: 07-15-2023 End: 07-15-2023 Patient encounter procedure Dominique Fisher MD Work Phone: Endocrinology Comment on above: Multiple thyroid nod ules (Primary Dx) Start: 07-12-2023 ambulatory Dominique Fisher MD Work Phone: Endocrinology Comment on above: Thyroid Biopsy Start: 07-12-2023 E-mail encounter jayashree m caregiver Dominique Fisher MD Work Phone: [facility] Start: 05-12-2023 E-mail encounter fro m caregiver Consuelo Contreras APRN.PANAMA HAT HYDRAULIC PRESS OPERATOR Work Phone: [facility] Start: 05-12-2023 Patient encounter procedure Consuelo Contreras APRN.PANAMA HAT HYDRAULIC PRESS OPERATOR Work Phone: Pulmonology [facility] Comment on above: Welcome to [facility]! Start: 05-11-2023 Telephone encounter Jeremy Ramirez APRN.PANAMA HAT HYDRAULIC PRESS OPERATOR Work Phone: [facility] Comment on above: Results Start: 05-10-2023 End: 05-10-2023 Patient encounter procedure Madeline Hinojosa LEGGER PRESS OPERATOR.PANAMA HAT HYDRAULIC PRESS OPERATOR Work Phone: [facility] Comment on above: Rhinosinusitis (Prim pj Dx); Acute otitis media, bilateral Start: 05-06-2023 End: 05-06-2023 Patient encounter procedure Jeremy Ramirez APRN.PANAMA HAT HYDRAULIC PRESS OPERATOR Work Phone: [facility] Comment on above: Chronic fatigue (Rosalva jenna Dx); Thyroid nodule; Arthralgia, unspecified joint; Vitamin D deficiency; Post-menopausal; Screening for deficiency anemia; Encounter for screening for diabetes mellitus; Screening for lipid disorders; Screening for HIV (human immunodeficiency virus); Screening for thyroid disorder; Encounter for hepatitis C screening test for low risk patient; Screening for blood or protein in urine; Screening for cardiovascular condition Start: 12-29-2022 Chart Update Piero guillen Work Phone: EB-OVFSK-Lvbuprwv 3275 DO Work Phone: Start: 12-24-[address] Piero Caputo acility:[id number] Start: 12-17-2022 Periodic preventive med est patient 40-64yrs Piero Ortiz Work Phone: YJ-YRXPN-Uqowpvpn 7830 DO Work Phone: Start: 12-17-[address] Piero Caputo acility:[id number] Start: 07-28-2022 ULTRASOUND, Provider : Jorge Min, Status: Pen, Time: 9:00 AM Piero Ortiz Work Phone: [facility] [place] [address] Work Phone: Start: 07-27-2022 Chart Update Piero guillen Work Phone: [facility] [place] [address] Work Phone: Start: 07-22-2022 AUDIT Piero guillen Work Phone: [facility] Work Phone: Start: 06-03-2022 Telephone encounter Taqueria Vieira MD Work Phone: [facility] [place] Comment on above: Medication Problem Start: 05-29-2022 End: 05-29-2022 Patient encounter procedure Lissette Kolb APRN.PANAMA HAT HYDRAULIC PRESS OPERATOR Work Phone: [facility] Comment on above: Rhinosinusitis (Prim pj Dx) Start: 03-03-2022 Telephone encounter Muna An APRN.PANAMA HAT HYDRAULIC PRESS OPERATOR Work Phone: [facility] Comment on above: Results Start: 03-02-2022 End: 03-02-2022 Patient encounter procedure Fred Her MD Work Phone: [facility] Comment on above: Acute COVID-19 (Prim pj Dx); Acute otitis media, right Start: 12-23-2021 Chart Update Piero guillen Work Phone: [id number]-NQY [address] [place] Work Phone: Start: 12-11-2021 Patient encounter procedure Piero Ortiz Work Phone: MO-JSUPA-Bearsdnr 2420 DO Work Phone: Start: 12-11-2021 Periodic preventive med est patient 40-64yrs Piero Ortiz Work Phone: QE-BJEWA-Edlrxegp 2420 DO Work Phone: Start: 11-18-2021 Chart Update Piero guillen Work Phone: [facility] [place] [address] Work Phone: Start: 11-06-2021 Office outpatient vi sit 25 minutes Piero Ortiz Work Phone: [facility] [place] [address] Work Phone: Start: 11-06-2021 Patient encounter procedure Piero Cook Angel Work Phone: [facility] [place] [address] Work Phone: Start: 09-09-2021 Telephone encounter Shahida Agarwal APRNMaliniPANAMA HAT HYDRAULIC PRESS OPERATOR Work Phone: [facility] Comment on above: Results Start: 09-08-2021 End: 09-08-2021 Patient encounter procedure Betzy Willis PA-C Work Phone: [facility] Comment on above: Acute pansinusitis, recurrence not specified (Primary Dx) Start: 07-23-2021 Office outpatient vi sit 15 minutes Piero Ortiz Work Phone: MP-Scott Work Phone: Start: 06-30-2021 Office outpatient vi sit 15 minutes Piero Ortiz Work Phone: [facility] [address]99 Work Phone: Start: 06-30-2021 Patient encounter procedure Piero Cook Angel Work Phone: [facility] [place] [address] Work Phone: Start: 06-16-2021 Patient encounter procedure Piero Cook Angel Work Phone: NM-Xrhwfov-Ajekvmyp SJW 240 DO Work Phone: Start: 03-24-2021 Rx Renewal Piero guillen Work Phone: KP-Eqgyqik-Tasvdrwh SJW 240 DO Work Phone: Start: 03-24-2021 Rx Renewal Piero guillen Work Phone: ER-Bridxofubswd-Uldgyo 210 Work Phone: Start: 01-14-2021 Rx Renewal Piero guillen Work Phone: DM-Owbyhswylaxk-Tkankg 210 Work Phone: Start: 08-03-2021 Chart Update Piero guillen Work Phone: RK-HGSXZ-Hqglrivc 2420 DO Work Phone: Start: 12-17-2020 Rx Renewal Piero guillen Work Phone: CK-Ipejpsxsrkun-Wwurvo 200 Work Phone: Start: 12-12-2020 Chart Update Piero guillen Work Phone: GF-BJTIH-PTW 1200 [place] Work Phone: Start: 12-12-2020 Patient encounter procedure Piero Ortiz Work Phone: UN-MJCGF-Mroucvtm 2420 DO Work Phone: Start: 12-12-2020 Periodic preventive med est patient 40-64yrs Piero Clementee Work Phone: SS-BBABX-Wzdjopgp 2420 DO Work Phone: Start: 11-20-2020 Office outpatient vi sit 15 minutes Piero Clementee Work Phone: YO-Pcvzatbdhucl-Bbbuqpf e Work Phone: Start: 11-20-2020 NPV, Provider: Cash Ochoa, Status: Pen, Time: 10:00 AM Piero Cook Angel Work Phone: AT-Qtqadbxjgrse-Pwimlg 210 Work Phone: Start: 11-19-2020 AUDIT Piero Clemente charmaine Work Phone: PW-Kkjohhtebecp-Zidiyt 210 Work Phone: Start: 05-15-2020 Patient encounter procedure Piero Clementecharmaine DELGADILLOWSPC-[address] [place] [address] Work Phone: Start: 04-24-2020 Patient encounter procedure Piero Clementecharmaine DELGADILLOWSPC-[address] [place] [address] Work Phone: Start: 04-18-2020 Patient encounter procedure Piero Clementecharmaine DELGADILLOWSPC-[address] [place] [address] Work Phone: Start: 02-16-2020 Patient encounter procedure Piero Ortiz MP-[facility] [place] [address] Work Phone: Start: 01-16-2020 Patient encounter procedure Piero Ortiz MP-[facility] [place] [address] Work Phone: Start: 12-14-2019 Patient encounter procedure Nathalia Lou MP[facility] [place] [address] Work Phone: Start: 12-13-2019 Patient encounter procedure Nathalia Lou ZB-RRVMY-Nddktsmj 2420 DO Work Phone: Start: 11-22-2019 Patient encounter procedure Nathalia Lou EL-HRHDD-Kzvgfyjk 2420 DO Work Phone: Start: 09-04-2019 Patient encounter procedure Nathalia Lou YG-XARCF-Iobtiriv 2420 DO Work Phone: Start: 06-01-2019 Patient encounter procedure Piero Ortiz MPLW-Izfxyeeyhikeln-Ujfpe angely SJW Work Phone: Start: 05-15-2019 Patient encounter procedure Piero Mcdonoughsscharmaine COTAPW-Huqqisswrsekht-Wjygz angely SJW Work Phone: Start: 05-01-2019 Patient encounter procedure Piero Angel JG-Sjokwqgbhnvfzn-Hlzgq angely SJW Work Phone: Start: 03-02-2019 Patient encounter procedure Piero Ortiz MPEE-Dynoumfhaydmrm-Zugjy angely SJW Work Phone: Start: 02-15-2019 Patient encounter procedure Piero Angel YM-Bcxmpxkwdaxyym-Csfts angely SJW Work Phone: Start: 10-06-2018 Patient encounter procedure Piero Mcdonoughsscharmaine RIVERAUG-AKKNQ-Gubnjsmj 4860 DO Work Phone: Start: 10-05-2018 Patient encounter procedure Piero RIVERAQE-PCMRB-Zlvrwdlo 2420 DO Work Phone: Start: 09-07-2018 Patient encounter procedure Piero Ortiz DL-SGFZU-Btrjrhfy 2420 DO Work Phone: Start: 08-30-2018 Patient encounter procedure Nathalia Lou Facility:[facility] Start: 08-22-2018 Patient encounter procedure Mesha Garcia Facility:[facility] Start: 08-09-2018 Patient encounter procedure Piero RIVERAZE-XOJFI-Yxdzlstw 2420 DO Work Phone: Start: 05-17-2018 Patient encounter procedure Piero RIVERAAY-TQQUG-Ostpcotn 2420 DO Work Phone: Start: 05-06-2018 Patient encounter procedure Piero RIVERALX-QTUZD-Aadlgdse 2420 DO Work Phone: Start: 04-08-2018 Patient encounter procedure Piero RIVERAJO-XNTSH-Qnvoejzg 2420 DO Work Phone: Start: 03-28-2018 Patient encounter procedure Piero RIVERALY-BHOZH-Kjeazewy 2420 DO Work Phone: Start: 01-25-2018 Patient encounter procedure Piero RIVERAAA-NOWXF-Yibkvzcc 2420 DO Work Phone: Start: 01-19-2018 Patient encounter procedure Piero RIVERAFM-DMOMI-Kwblazdf 2420 DO Work Phone: Start: 11-28-2017 Patient encounter procedure SJ Miscellaneous Facility:[facility] Start: 11-12-2017 End: 11-27-2017 Patient encounter procedure SJ Miscellaneous Facility:[facility] Start: 10-20-2017 End: 10-28-2017 Patient encounter procedure SJ Miscellaneous Facility:[facility] Start: 10-07-2017 Patient encounter procedure Piero RIVERAGH-OZTEQ-Wntixakr 2420 DO Work Phone: Start: 10-06-2017 Patient encounter procedure Piero RIVERADW-OSFZE-Cdkxbjez 2420 DO Work Phone: Start: 07-30-2017 Patient encounter procedure Piero RIVERAMF-NHGON-Hcsnyrdb 2420 DO Work Phone: Start: 01-14-2017 Patient encounter procedure Piero Lucio 2420 DO Work Phone: Start: 10-19-2016 Patient encounter procedure Piero Lucio 2420 DO Work Phone: Patient encounter status Piero Ortiz Work Phone: WB-Igdmhiplzojw-Iglxcu 210 Work Phone: Procedures Date Procedure Procedure Detail Performing Clinician Start: 03-08-[address] Bello Davenport MD Work Phone: Start: 01-18-[address] Bello Davenport MD Work Phone: Start: 12-21-2024 Pulmonary stress testing Taqueria Vieira MD Work Phone: Start: 12-21-2024 Brncdilat rspse spmtry pre&post-brncdilat admn Taqueria Vieira MD Work Phone: Start: 11-30-2024 Radiologic exam chest 2 views Taqueria Vieira MD Work Phone: Start: 08-31-2024 Plain X-ray of shoulder Dr. Bello Davenport MD Work Phone: Start: 05-22-2024 SARS-CoV-2, Influenza & RSV (PCR) Dr. Johnathan Davenport MD Work Phone: Start: 09-09-2023 End: 09-09-2023 Radex hips bilateral with pelvis minimum 5 views Mirella Vetovitz PA-C Work Phone: Start: 09-03-2023 Computed tomography of abdomen and pelvis with contrast Start: 08-11-2023 Urine culture Start: 07-22-2023 STREP A MOLECULAR (POC) Angel Catherine APRN.PANAMA HAT HYDRAULIC PRESS OPERATOR Work Phone: Start: 07-15-2023 Us soft tissue head & neck real time imge marce Fisher MD Work Phone: Start: 05-07-2023 Lipid 1996 panel - Serum or Plasma Stacia Hinojosa LEGGER PRESS OPERATOR.PANAMA HAT HYDRAULIC PRESS OPERATOR Work Phone: Start: 11-07-2021 Lipid 1996 panel - Serum or Plasma Mary Ann Ramirez LEGGER PRESS OPERATOR.PANAMA HAT HYDRAULIC PRESS OPERATOR Work Phone: Start: 01-27-2021 Colonoscopy Dominique Fisher MD Work Phone: Start: 04-18-2020 Coronavirus 2019 RNA by PCR, Symptomatic Piero Ortiz Start: 01-18-2020 Colonoscopy Jeremy Gómez LEGGER PRESS OPERATOR.PANAMA HAT HYDRAULIC PRESS OPERATOR Work Phone: Start: 12-11-2019 MG Breast screening Nathalia Lou Start: 08-15-2018 MG Breast screening Piero Ortiz Start: 08-09-2018 Colonoscopy Piero Ortiz Start: 03-09-2007 Mammography Betzy Willis PA-C Work Phone: History of Dilation And Curettage Piero Ortiz History of Ear Surgery Addy Ortiz Plan of Treatment Date Care Activity Detail Author Start: 07-02-2034 Urine microalbumin profile DTaP,Tdap,Td Vaccine (3 - Td or Tdap) [facility] Start: 05-07-2028 Lipid 1996 panel - Serum or Plasma Lipid Screening [facility] Start: 05-07-2028 Lipid panel Lipid Screening [facility] Start: 12-01-2027 Diabetes Screening Diabetes Screenin [facility] Start: 08-27-2027 Screening for malign ant neoplasm of colon Cologuard (FIT-DNA) [facility] Start: 11-07-2026 Lipid 1996 panel - Serum or Plasma Lipid Screening [facility] Start: 05-07-2026 Diabetes Screening Diabetes Screenin g [facility] Start: 01-27-2026 Screening for malign ant neoplasm of colon [facility] Start: 06-05-2025 End: 06-05-2025 Patient encounter procedure 06/05/2025 1:00 PM EST Office Visit Family Medicine [facility] [address] [place], [place] [id number] Taqueria Vieira MD [address] [facility] [place] [id number] est care [facility] Comment on above: est care Start: 05-02-2025 End: 05-02-2025 Patient encounter procedure 05/02/2025 2:20 PM EST Office Visit Cardiology [address] [facility] [place] [address] Marlon Maria MD [address] [place], [place] [id number] Post covid-19 condition, unspecified [U09.9] Cardiology Comment on above: Post covid-19 condit ion, unspecified [U09.9] Start: 04-17-2025 End: 04-17-2025 Patient encounter procedure 04/17/2025 10:45 AM EST [facility] Pulmonary Medicine [address] [place], [place] [id number] [place] [address] [place] [address] Return in about 3 months (around 03/31/2025). With me via virtual visit Pulmonary Medicine Comment on above: Return in about 3 mo nths (around 03/31/2025). With me via virtual visit Start: 03-26-2025 Registered Recurring Registered Recu rring -Pulmonary Rehab Work Phone: Start: 03-08-2025 Egd transoral biopsy single/multiple EGD BIOPSY SINGLE/MULTIPLE [facility] Start: 03-08-2025 [facility] Start: 02-22-2025 End: 02-22-2025 Patient encounter procedure 02/22/2025 9:00 AM EDT Office Visit [facility] [address] [place] [address] Taqueria Vieira MD [address] [place] [address] 2 month recover follow up [facility] Comment on above: 2 month recover foll ow up Start: 02-20-2025 End: 02-20-2025 Patient encounter procedure 02/20/2025 10:00 AM EDT Appointment Cardiology Lab [address] [place] [address] ECHO Cardiology Lab Comment on above: ECHO Start: 02-08-2025 End: 02-08-2025 Patient encounter procedure 02/08/2025 11:00 AM EDT Appointment Ambulatory Surgery [address] [place] [address] Shelia Lambert MD [address] [place] [address] EGD DIAGNOSTIC Ambulatory Surgery Comment on above: EGD DIAGNOSTIC Start: 01-29-2025 Influenza vaccination Influenza Vacc ine (#1) [facility] Start: 01-18-2025 MG Breast - bilatera l Screening [facility] Start: 01-18-2025 SCRN MAMM (CAD)W/KHRIS O BILAT SCRN MAMM (CAD)W/BEBA BILAT [facility] Start: 01-17-2025 Colonoscopy Colonoscopy [facility] Start: 01-17-2025 Colorectal Cancer Screening Colorectal Cancer Screening [facility] Start: 01-17-2025 Screening for malign ant neoplasm of colon [facility] Start: 01-16-2025 End: 01-16-2025 Patient encounter procedure 01/16/2025 11:20 AM EDT Office Visit Gastroenterology [facility] [address] [place] [phone] Janina Miranda PA-C [address] [place] [address] Post covid-19 condition, unspecified [U09.9] [facility] Comment on above: Post covid-19 condit ion, unspecified [U09.9] Start: 01-12-2025 End: 01-12-2025 Patient encounter procedure 01/12/2025 12:00 PM EDT Appointment Cardiology Lab [address] [place] [address] Shortness of breath [R06.02] Cardiology Lab Comment on above: Shortness of breath [R06.02] Start: 12-29-2024 End: 12-29-2024 Patient encounter procedure 12/29/2024 9:45 AM EDT Office Visit Pulmonary Medicine [address] [place] [address] [place] [address] [place] [address] PFT's 12/07/2024, Post covid-19 condition, unspecified [U09.9] Pulmonary Medicine Comment on above: PFT's 12/07/2024, Pos t covid-19 condition, unspecified [U09.9] Start: 12-28-2024 End: 12-28-2024 Patient encounter procedure 12/28/2024 10:30 AM EDT Office Visit Geriatrics [address] [place] [address] Anna Tabor MD [address] [place] [address] Post covid-19 condition, unspecified [U09.9] Geriatrics Comment on above: Post covid-19 condit ion, unspecified [U09.9] Start: 12-21-2024 End: 12-21-2024 ambulatory PULM [facility] Comment on above: Shortness of breath [R06.02] Start: 12-20-2024 End: 12-20-2024 Patient encounter procedure 12/20/2024 2:40 PM EDT Office Visit OB/Gynecology [address] [place] [address] Autumn Flowers MD [address] [place] [address] annual OB/Gynecology Comment on above: annual Start: 12-18-2024 End: 12-18-2024 Patient encounter procedure 12/18/2024 2:40 PM EDT Office Visit OB/Gynecology [address] [place] [address] Autumn Flowers MD [address] [place] [address] annual OB/Gynecology Comment on above: annual Start: 12-14-2024 End: 12-14-2024 ambulatory 12/14/2024 10:00 AM EDT [facility] [address] [facility] [address] Jeremy Schaeffer MD [address] [place] [address] Fatigue, unspecified type [R53.83] Integrative and Lifestyle Medicine Comment on above: Fatigue, unspecified type [R53.83] Start: 12-07-2024 End: 12-07-2024 ambulatory [facility] Comment on above: Shortness of breath [R06.02] Start: 11-30-2024 End: 03-01-2025 25-hydroxyvitamin D3 [Mass/volume] in Serum or Plasma [facility] Comment on above: Expected: 11/30/2024 , Expires: 03/01/2025 Start: 11-30-2024 End: 03-01-2025 C reactive protein [Mass/volume] in Serum or Plasma [facility] Comment on above: Expected: 11/30/2024 , Expires: 03/01/2025 Start: 11-30-2024 End: 03-01-2025 Cobalamin (Vitamin B12) [Mass/volume] in Serum or Plasma [facility] Comment on above: Expected: 11/30/2024 , Expires: 03/01/2025 Start: 11-30-2024 End: 03-01-2025 Comprehensive metabolic 2000 panel - Serum or Plasma [facility] Work Phone: Comment on above: Expected: 11/30/2024 , Expires: 03/01/2025 Start: 11-30-2024 End: 03-01-2025 Ferritin [Mass/volume] in Serum or Plasma [facility] Comment on above: Expected: 11/30/2024 , Expires: 03/01/2025 Start: 11-30-2024 End: 03-01-2025 Folate [Mass/volume] in Serum or Plasma [facility] Comment on above: Expected: 11/30/2024 , Expires: 03/01/2025 Start: 11-30-2024 End: 03-01-2025 Natriuretic peptide.B prohormone N-Terminal [Mass/volume] in Serum or Plasma [facility] Comment on above: Expected: 11/30/2024 , Expires: 03/01/2025 Start: 11-30-2024 End: 03-01-2025 OMEGACHECK [facility] Comment on above: Expected: 11/30/2024 , Expires: 03/01/2025 Start: 11-30-2024 End: 03-01-2025 Thyrotropin [Units/volume] in Serum or Plasma [facility] Comment on above: Expected: 11/30/2024 , Expires: 03/01/2025 Start: 11-30-2024 End: 03-01-2025 TRACE ELEMENTS/TPN [facility] Comment on above: Expected: 11/30/2024 , Expires: 03/01/2025 Start: 11-30-2024 End: 11-30-2024 Patient encounter procedure 11/30/2024 10:20 AM EDT Office Visit [facility] [address] [place] [address] Taqueria Vieira MD [address] [place], [place] [id number] recover follow up [facility] Comment on above: recover follow up Start: 11-07-2024 Diabetes Screening Diabetes Screenin g [facility] Start: 10-19-2024 End: 10-19-2024 Patient encounter procedure 10/19/2024 10:00 AM EDT Office Visit [facility] [address] [place] [address] Taqueria Vieira MD [address] [place], [place] [id number] recover follow up [facility] Comment on above: recover follow up Start: 09-08-2024 End: 12-08-2024 25-hydroxyvitamin D3 [Mass/volume] in Serum or Plasma VITAMIN D 25 HYDROXY Lab Routine Alopecia areata Vitamin D deficiency Expected: 09/08/2024, Expires: 12/08/2024 [facility] Work Phone: Comment on above: Expected: 09/08/2024 , Expires: 12/08/2024 Start: 07-13-2024 End: 08-19-2024 US Thyroid gland US THYROID/PARATHYROID Radiology Routine Nontoxic multinodular goiter Expected: 07/13/2024, Expires: 08/19/2024 [facility] Work Phone: Comment on above: Expected: 07/13/2024 , Expires: 08/19/2024 Start: 06-08-2024 Medicare Annual Wellness Visit Medicare Annual Wellness Visit [facility] Start: 06-08-2024 Pneumococcal Vaccine : 65+ (1 of 1 - PCV) Pneumococcal Vaccine: 65+ (1 of 1 - PCV) [facility] Comment on above: Postponed from 05/28 (Declined at this time) Start: 06-08-2024 RSV Vaccine (1 - 1-d ose 60+ series) RSV Vaccine (1 - 1-dose 60+ series) [facility] Comment on above: Postponed from 05/28 (Declined at this time) Start: 06-08-2024 Shingrix Vaccine (1 of 2) Shingrix Vaccine (1 of 2) [facility] Comment on above: Postponed from 05/28 (Declined at this time) Start: 05-31-2024 Advance Directive Discussion Advance Directive Discussion [facility] Start: 01-30-2024 Covid-19 Vaccine ( season) Covid-19 Vaccine ( season) [facility] Start: 01-30-2024 Covid-19 Vaccine ( season) Covid-19 Vaccine () [facility] Start: 01-30-2024 Influenza vaccination Influenza Vacc ine (#1) [facility] Start: 12-25-2023 Screening for malign ant neoplasm of breast Mammogram Screening [facility] Start: 12-17-2023 Mammography Mammogram Screening [facility] Start: 12-17-2023 Screening for malign ant neoplasm of breast Mammogram Screening [facility] Start: 11-25-2023 Urine microalbumin profile DTaP,Tdap,Td Vaccine (2 - Td or Tdap) [facility] Start: 11-06-2023 Shingrix Vaccine (2 of 2) Shingrix Vaccine (2 of 2) [facility] Start: 07-21-2023 End: 10-20-2023 Thyrotropin [Units/volume] in Serum or Plasma TSH BLD Lab Routine Nontoxic multinodular goiter Expected: 07/21/2023, Expires: 10/20/2023 [facility] Work Phone: Comment on above: Expected: 07/21/2023 , Expires: 10/20/2023 Start: 07-06-2023 Covid-19 Vaccine () Covid-19 Vaccine () [facility] Start: 2023 Screening for osteoporosis Bone Density Screening [facility] Start: 05-06-2023 End: 08-05-2023 25-hydroxyvitamin D3 [Mass/volume] in Serum or Plasma VITAMIN D 25 HYDROXY Lab Routine Vitamin D deficiency Expected: 05/06/2023, Expires: 08/05/2023 [facility] Work Phone: Comment on above: Expected: 05/06/2023 , Expires: 08/05/2023 Start: 05-06-2023 End: 08-05-2023 C reactive protein [Mass/volume] in Serum or Plasma C-REACTIVE PROTEIN (CRP) Lab Routine Arthralgia, unspecified joint Expected: 05/06/2023, Expires: 08/05/2023 [facility] Work Phone: Comment on above: Expected: 05/06/2023 , Expires: 08/05/2023 Start: 05-06-2023 End: 08-05-2023 CBC panel - Blood by Automated count CBC Lab Routine Screening for deficiency anemia Expected: 05/06/2023, Expires: 08/05/2023 [facility] Work Phone: Comment on above: Expected: 05/06/2023 , Expires: 08/05/2023 Start: 05-06-2023 End: 08-05-2023 Comprehensive metabolic 2000 panel - Serum or Plasma COMP METABOLIC PANEL Lab Routine Encounter for screening for diabetes mellitus Expected: 05/06/2023, Expires: 08/05/2023 [facility] Work Phone: Comment on above: Expected: 05/06/2023 , Expires: 08/05/2023 Start: 05-06-2023 End: 08-05-2023 Erythrocyte sedimentation rate SED RATE WESTERGREN Lab Routine Arthralgia, unspecified joint Expected: 05/06/2023, Expires: 08/05/2023 [facility] Work Phone: Comment on above: Expected: 05/06/2023 , Expires: 08/05/2023 Start: 05-06-2023 End: 08-05-2023 Hepatitis C virus Ab [Presence] in Serum HEPATITIS C ANTIBODY IA WITH CONFIRMATION Lab Routine Encounter for hepatitis C screening test for low risk patient Expected: 05/06/2023, Expires: 08/05/2023 [facility] Work Phone: Comment on above: Expected: 05/06/2023 , Expires: 08/05/2023 Start: 05-06-2023 End: 08-05-2023 HIV 1+2 Ab [Presence] in Serum or Plasma by Immunoassay HIV 1 2 COMBO(AG/AB),WITH REFLEX TO DIFFERENTIATION Lab Routine Screening for HIV (human immunodeficiency virus) Expected: 05/06/2023, Expires: 08/05/2023 [facility] Work Phone: Comment on above: Expected: 05/06/2023 , Expires: 08/05/2023 Start: 05-06-2023 End: 08-05-2023 Lipid 1996 panel - Serum or Plasma LIPID PANEL BASIC Lab Routine Screening for lipid disorders Expected: 05/06/2023, Expires: 08/05/2023 [facility] Work Phone: Comment on above: Expected: 05/06/2023 , Expires: 08/05/2023 Start: 05-06-2023 End: 08-05-2023 Rheumatoid factor [Units/volume] in Serum or Plasma RHEUMATOID FACTOR BL Lab Routine Arthralgia, unspecified joint Expected: 05/06/2023, Expires: 08/05/2023 [facility] Work Phone: Comment on above: Expected: 05/06/2023 , Expires: 08/05/2023 Start: 05-06-2023 End: 08-05-2023 Thyrotropin [Units/volume] in Serum or Plasma TSH BLD Lab Routine Screening for thyroid disorder Expected: 05/06/2023, Expires: 08/05/2023 [facility] Work Phone: Comment on above: Expected: 05/06/2023 , Expires: 08/05/2023 Start: 05-06-2023 End: 08-05-2023 Thyroxine (T4) free [Mass/volume] in Serum or Plasma T4 FREE/FREE THYROX Lab Routine Screening for thyroid disorder Expected: 05/06/2023, Expires: 08/05/2023 [facility] Work Phone: Comment on above: Expected: 05/06/2023 , Expires: 08/05/2023 Start: 05-06-2023 End: 08-05-2023 Urinalysis complete panel - Urine URINALYSIS WITH MICROSCOPIC, REFLEX CULTURE Lab Routine Screening for blood or protein in urine Expected: 05/06/2023, Expires: 08/05/2023 [facility] Work Phone: Comment on above: Expected: 05/06/2023 , Expires: 08/05/2023 Start: 07-28-2022 ULTRASOUND, Provider : Jorge Chavez, Status: Johnathan, Time: 9:00 AM ULTRASOUND, Provider: Jorge Chavez, Status: Johnathan, Time: 9:00 AM Saul Work Phone: Start: 07-28-2022 ULTRASOUND, Provider : Jorge Min , Status: Johnathan, Time: 9:00 AM ULTRASOUND, Provider: Mannie Min, Status: Johnathan, Time: 9:00 AM [facility] Work Phone: Start: 05-31-2022 [facility] Start: 03-02-2022 End: 03-16-2022 SARS-CoV-2 (COVID-19) RNA [Presence] in Respiratory specimen by ENID with probe detection [facility] Work Phone: Comment on above: Expected: 03/02/2022 , Expires: 03/16/2022 Start: 01-29-2022 Influenza vaccination INFLUENZA (#1) [facility] Start: 12-11-2021 Patient encounter procedure ANNUAL, Provider: Nathalia Lou, Status: Pen, Time: 1:00 PM [facility] [place] [address] Work Phone: Start: 09-08-2021 End: 09-22-2021 Influenza virus A and B RNA and SARS-CoV-2 (COVID-19) N gene panel - Respiratory specimen by ENID with probe detection [facility] Work Phone: Comment on above: Expected: 09/08/2021 , Expires: 09/22/2021 Start: 07-23-2021 ULTRASOUND, Provider : Jorge Chavez, Status: Pen, Time: 9:00 AM ULTRASOUND, Provider: Jorge Chavez, Status: Pen, Time: 9:00 AM NJ-Ynxcuud-Eznkwjlv SJW 240 DO Work Phone: Start: 06-25-2021 ULTRASOUND, Provider : Jorge Chavez, Status: Pen, Time: 10:00 AM ULTRASOUND, Provider: Jorge Chavez, Status: Pen, Time: 10:00 AM SX-Arvkwwkxnjir-Yxacsq 210 Work Phone: Start: 06-16-2021 VIRFUVHOME, Provider : Tameka Sampson, Status: Pen, Time: 3:20 PM VIRFUVHOME, Provider: Tameka Sampson, Status: Pen, Time: 3:20 PM GZ-Hbjwctnwevxe-Evjogj 210 Work Phone: Start: 05-31-2021 DEPRESSION ASSESSMENT DEPRESSION ASS ESSMENT [facility] Start: 01-22-2021 NPV, Provider: Tameka Sampson, Status: Pen, Time: 11:00 AM NPV, Provider: Tameka Sampson, Status: Pen, Time: 11:00 AM UO-Suxkaojdzdef-Jsplcd 210 Work Phone: Start: 01-13-2021 [id number], Provider : Km Saravia, Status: Pen, Time: 11:30 AM [id number], Provider: Km Saravia, Status: Pen, Time: 11:30 AM CD-Takrfoclplgk-Uioztl ke Work Phone: Start: 12-12-2020 Patient encounter procedure ANNUAL, Provider: Nathalia Lou, Status: Pen, Time: 11:30 AM TM-Dtsxpyutobek-Qvwryi 210 Work Phone: Start: 08-10-2019 Colonoscopy COLONOSCOPY [facility] Start: 08-10-2019 COLORECTAL CANCER SCREENING COLORECTAL CANCER SCREENING [facility] Start: 2018 RSV Vaccine (1 - 1-d ose 60+ series) RSV Vaccine (1 - 1-dose 60+ series) [facility] Start: 2008 Pneumococcal Vaccine : 50+ (1 of 1 - PCV) Pneumococcal Vaccine: 50+ (1 of 1 - PCV) [facility] Start: 2008 SHINGRIX VACCINE (1 of 2) SHINGRIX VACCINE (1 of 2) [facility] Start: 03-09-2008 Mammography MAMMOGRAM [facility] Start: 2003 COLOGUARD (FIT-DNA) COLOGUARD (FIT-D NA) [facility] Start: [address] COLONOGRAPHY [facility] Start: 2003 DIABETES SCREEN DIABETES SCREEN [facility] Start: 2003 FECAL OCCULT BLOOD FECAL OCCULT BLOO D [facility] Start: 2003 LIPID SCREEN LIPID SCREEN [facility] Start: 2003 Screening for malign ant neoplasm of colon [facility] Start: 2003 SIGMOIDOSCOPY SIGMOIDOSCOPY [facility] Start: 1988 HPV TESTING HPV TESTING [facility] Start: 1988 Screening for malign ant neoplasm of cervix HPV Testing [facility] Start: 1979 PAP TESTING PAP TESTING [facility] Start: 1979 Screening for malign ant neoplasm of cervix Pap Testing [facility] Start: 1977 Urine microalbumin profile DTAP,TDAP,TD (1 - Tdap) [facility] Start: 1976 Anxiety Screening Anxiety Screening [facility] Start: 1976 Depression Screening Depression Scre daniel [facility] Start: 1976 HEPATITIS C SCREENING HEPATITIS C SC RAND [facility] Start: 1976 HIV SCREENING HIV SCREENING [facility] Start: 1970 Adult depression screening assessment DEPRESSION SCREENING [facility] BACH SCREENING TEST BACH SCREENI NG TEST Procedures Routine Brain fog Ordered: 11/30/2024 [facility] Comment on above: Ordered: 11/30/2024 Bacteria identified in Urine by Culture URINE CULTURE Microbiology Routine Burning with urination Ordered: 11/13/2023 [facility] Comment on above: Ordered: 11/13/2023 CYTOLOGY NON-OPERATING ROOM RN CYTOLOGY NON-GY N Lab Routine Multiple thyroid nodules Ordered: 07/15/2023 [facility] Work Phone: Comment on above: Ordered: 07/15/2023 DXA Skeletal system.axial Views for bone density DXA-AXIAL SKELETON Radiology Routine Post-menopausal 07/27/2023 10:18 AM EST [facility] Work Phone: End: 06-04-2024 DXA-AXIAL SKELETON DXA-AXIAL SKELETON Radiology Routine Post-menopausal 1 Occurrences starting 05/06/2023 until 06/04/2024 [facility] Work Phone: Comment on above: 1 Occurrences starti ng 05/06/2023 until 06/04/2024 End: 11-30-2025 ECG COMPLETE ECG COMPLETE ECG Routine Shortness of breath 1 Occurrences starting 11/30/2024 until 11/30/2025 [facility] Comment on above: 1 Occurrences starti ng 11/30/2024 until 11/30/2025 End: 11-30-2025 Echocardiography ECHO Cardiology Routine Shortness of breath 1 Occurrences starting 11/30/2024 until 11/30/2025 [facility] Comment on above: 1 Occurrences starti ng 11/30/2024 until 11/30/2025 End: 01-16-2026 EGD DIAGNOSTIC EGD DIAGNOSTIC Endoscopy Routine Gastroesophageal reflux disease, unspecified whether esophagitis present LUQ discomfort 1 Occurrences starting 01/16/2025 until 01/16/2026 [facility] Work Phone: Comment on above: 1 Occurrences starti ng 01/16/2025 until 01/16/2026 ENDO THYROID/LYMPH N ODE FNA ENDO THYROID/LYMPH NODE FNA Procedures Routine Multiple thyroid nodules Ordered: 07/15/2023 [facility] Work Phone: Comment on above: Ordered: 07/15/2023 End: 12-30-2025 LUNG DIFFUSION CAPACITY (DLCO) LUNG DIFFUSION CAPACITY (DLCO) PFT Routine Shortness of breath 1 Occurrences starting 11/30/2024 until 12/30/2025 [facility] Comment on above: 1 Occurrences starti ng 11/30/2024 until 12/30/2025 LUNG DIFFUSION CAPAC ITY (DLCO) LUNG DIFFUSION CAPACITY (DLCO) PFT Routine Shortness of breath 12/21/2024 10:08 AM EDT [facility] Work Phone: End: 12-30-2025 LUNG VOLUMES LUNG VOLUMES PFT Routine Shortness of breath 1 Occurrences starting 11/30/2024 until 12/30/2025 [facility] Comment on above: 1 Occurrences starti ng 11/30/2024 until 12/30/2025 LUNG VOLUMES LUNG VOLUMES PFT Routine Shortness of breath 12/21/2024 10:08 AM EDT [facility] Work Phone: MG Breast - bilatera l Screening [facility] End: 12-28-2025 Polysomnogram POLYSOMNOGRAM (PSG) Procedures Routine Primary obstructive sleep apnea of 1 Occurrences starting 12/28/2024 until 12/28/2025 [facility] Work Phone: Comment on above: 1 Occurrences starti ng 12/28/2024 until 12/28/2025 Pulmonary rehabilitation pro CONSULT PULMONARY REHABILITATION PROGRAM Procedures Routine Dyspnea and respiratory abnormalities Post-acute sequelae of COVID-19 (PASC) Ordered: 12/29/2024 [facility] Work Phone: Comment on above: Ordered: 12/29/2024 End: 12-30-2025 SIX MINUTE WALK SIX MINUTE WALK PFT Routine Shortness of breath 1 Occurrences starting 11/30/2024 until 12/30/2025 [facility] Comment on above: 1 Occurrences starti ng 11/30/2024 until 12/30/2025 End: 12-30-2025 SPIROMETRY - BASELINE AND POST DILATOR SPIROMETRY - BASELINE AND POST DILATOR PFT Routine Shortness of breath 1 Occurrences starting 11/30/2024 until 12/30/2025 [facility] Comment on above: 1 Occurrences starti ng 11/30/2024 until 12/30/2025 SPIROMETRY - BASELIN E AND POST DILATOR SPIROMETRY - BASELINE AND POST DILATOR PFT Routine Shortness of breath 12/21/2024 10:08 AM EDT [facility] Work Phone: UA DIP, URINE (POC) UA DIP, URIN E (POC) Lab Routine Burning with urination Ordered: 11/13/2023 [facility] Work Phone: Comment on above: Ordered: 11/13/2023 US Kidney - bilatera l and Urinary bladder [facility] End: 06-04-2024 Us soft tissue head & neck real time imge docm US THYROID/PARATHYROID Radiology Routine Thyroid nodule 1 Occurrences starting 05/06/2023 until 06/04/2024 [facility] Work Phone: Comment on above: 1 Occurrences starti ng 05/06/2023 until 06/04/2024 End: 09-18-2024 XR HIP BILATERAL 5V PEL/AP/LAT EACH HIP XR HIP BILATERAL 5V PEL/AP/LAT EACH HIP Radiology Routine Bilateral hip pain 1 Occurrences starting 08/20/2023 until 09/18/2024 [facility] Work Phone: Comment on above: 1 Occurrences starti ng 08/20/2023 until 09/18/2024 LQ-UIBKF-Yzwffo ke 2420 DO Work Phone: [facility] NEGATED: Highlighted row has been ruled out! Planned Goals not documented UO-JQBES-Uqexwtbk 2420 DO Work Phone: Immunizations Immunization Date Immunization Notes Care Provider Fa [facility] 07-02-2024 tetanus toxoid, redu ezequiel diphtheria toxoid, and acellular pertussis vaccine, adsorbed Ozzie Louis MD Work Phone: [facility] 02-04-2024 influenza virus vaccine, unspecified formulation Taqueria Vieira MD Work Phone: [facility] 04-30-2023 influenza virus vaccine, unspecified formulation [employer] Work Phone: [facility] 03-24-2022 influenza, injectabl e, quadrivalent, preservative free Piero Ortiz Work Phone: [facility] Work Phone: 02-26-2022 Pfizer COVID-19 Vac Bivalent 30 MCG/0.3ML Intramuscular Suspension Piero Ortiz Work Phone: [facility] Work Phone: 04-21-2021 Pfizer-BioNTech COVID-19 Vacc 30 MCG/0.3ML Intramuscular Suspension Piero Ortiz Work Phone: [facility] [place] [address] Work Phone: 02-13-2021 influenza, injectabl e, quadrivalent, preservative free; Translations: [Fluarix Quadrivalent 0.5 ML Intramuscular Suspension Prefilled Syringe] Piero Ortiz Work Phone: XB-Nogkfafwfxzl-Vjdg an 210 Work Phone: Comment on above: Series: 08-10-2020 Pfizer-BioNTech COVID-19 Vacc 30 MCG/0.3ML Intramuscular Suspension Piero Ortiz Work Phone: FA-Tyhtevmzkzds-Zmki an 210 Work Phone: 07-22-2020 Pfizer-BioNTech COVID-19 Vacc 30 MCG/0.3ML Intramuscular Suspension Piero Ortiz Work Phone: QW-Yqbioyebtker-Bkwk an 210 Work Phone: 02-16-2020 influenza, injectabl e, quadrivalent, preservative free; Translations: [Flulaval Quadrivalent 0.5 ML Intramuscular Suspension Prefilled Syringe] Piero Angel [facility] [place] [address] Work Phone: Comment on above: Series: 03-28-2018 influenza, injectabl e, quadrivalent, preservative free Piero Ortiz Work Phone: SD-Qeglfuxovvlr-Wuwx an 210 Work Phone: 03-18-2016 influenza, seasonal, injectable; Translations: [Fluzone SUSP] Piero RIVERATB-UOWOO-Jeberxdo 2420 DO Work Phone: Comment on above: Series: 02-26-2015 influenza, injectabl e, quadrivalent, preservative free; Translations: [Fluzone Quadrivalent 0.5 ML Intramuscular Suspension] Piero RIVERALW-ZJNJM-Halyluep 2420 DO Work Phone: Comment on above: Series: 03-05-2014 influenza, injectabl e, quadrivalent, preservative free; Translations: [Fluzone Quadrivalent 0.5 ML Intramuscular Suspension] Piero RIVERADT-NFKTQ-Djbiwoyq 2420 DO Work Phone: Comment on above: Series: 11-24-2013 tetanus toxoid, redu ezequiel diphtheria toxoid, and acellular pertussis vaccine, adsorbed Piero Oritz Work Phone: PV-Gbkebvzqzbhu-Umus an 210 Work Phone: 10-20-2013 hepatitis B vaccine, adult dosage Piero Ortiz Work Phone: HL-Nebxienhsgid-Bbxt an 210 Work Phone: 06-02-2013 hepatitis B vaccine, adult dosage Piero Ortiz Work Phone: YJ-Fnyppfythekt-Xygl an 210 Work Phone: 04-14-2013 hepatitis B vaccine, pediatric or pediatric/adolescent dosage Piero Ortiz Work Phone: VE-Ovuretwaiyku-Tdvv an 210 Work Phone: 03-01-2013 influenza, injectabl e, quadrivalent, preservative free Piero Ortiz Work Phone: ZG-Xleyhmcmftjz-Cfrk an 210 Work Phone: 02-17-2012 influenza virus vaccine, unspecified formulation Piero Ortiz Work Phone: NO-Oyankbbwrfuf-Ddro an 210 Work Phone: Comment on above: Series: 02-17-2012 influenza, seasonal, injectable Piero Ortiz KM-PCMTB-Cdppgrxm 2420 DO Work Phone: 02-13-2011 influenza virus vaccine, unspecified formulation Piero Ortiz Work Phone: MV-Xqijinxmphhw-Okbk an 210 Work Phone: Comment on above: Series: 02-13-2011 influenza, seasonal, injectable Piero Ortiz MN-MBRQK-Zlmlifty 2420 DO Work Phone: 04-17-2010 influenza virus vaccine, unspecified formulation Piero Ortiz Work Phone: ZQ-Myttyyrtuszv-Qplu an 210 Work Phone: Comment on above: Series: 04-17-2010 influenza, seasonal, injectable Piero Ortiz QF-WSFNB-Xeigsowm 2420 DO Work Phone: Payers Date Payer Category Payer Self-pay 2023 Medicare [id number] 2023 Private Health Insurance [id number] 2023 Medicare [id number] 2023 Unknown [id number] 2021 Unknown 2021 Unknown [id number] 1960 Unknown [id number] 2.16. 840.1.612866.3.579.2.356 1960 Unknown [id number] 2.16.8 40.1.097873.3.579.2.1069 1960 Unknown [id number] 2.16.8 40.1.080521.3.579.2.159 1960 Unknown [id number] 2.16.8 40.1.919800.3.579.2.159 Unknown [id number] 2.16.8 40.1.903122.3.579.2.243 Unknown [id number] 2.16.8 40.1.724491.3.579.2.243 Unknown [id number] 2.16.8 40.1.870976.3.579.2.243 Unknown [id number] 2.16.8 40.1.812957.3.579.2.243 Unknown [id number] 2.16.8 40.1.772025.3.579.2.243 Unknown [id number] Unknown [id number] 2.16.8 40.1.565417.3.579.2.462 Unknown [id number] 2.16.8 40.1.863685.3.579.2.462 Unknown [id number] 2.16.8 40.1.014977.3.579.2.462 Unknown [id number] 2.16.8 40.1.027174.3.579.2.462 Unknown [id number] 2.16.8 40.1.078031.3.579.2.462 Unknown [id number] 2.16.8 40.1.271242.3.579.2.462 Unknown [id number] 2.16.8 40.1.320531.3.579.2.462 Unknown [id number] 2.16.8 40.1.196346.3.579.2.462 Unknown [id number] 2.16.8 40.1.237670.3.579.2.462 Unknown [id number] 2.16.8 40.1.848474.3.579.2.462 Unknown [id number] 2.16.8 40.1.003819.3.579.2.462 Unknown [id number] 2.16.8 40.1.746895.3.579.2.462 Unknown [id number] 2.16.8 40.1.709785.3.579.2.462 Unknown [id number] 2.16.8 40.1.505886.3.579.2.462 Unknown [id number] 2.16.8 40.1.563496.3.579.2.462 Unknown [id number] 2.16.8 40.1.915433.3.579.2.462 Unknown [id number] 2.16.8 40.1.154441.3.579.2.462 Unknown [id number] 2.16.8 40.1.678910.3.579.2.462 Social History Date Type Detail Facility Start: 05-05-2020 End: 05-06-2023 Never smoker Never smoker [facility] 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; Start: 01-08-2022 End: 03-02-2025 Tobacco smoking status NHIS Never smoked tobacco [facility] Start: 09-08-2021 End: 11-30-2024 Alcohol intake Current drinker of alcohol (finding) [facility] Start: 1960 Sex Assigned At Not on file [facility] Start: 08-29-2021 End: 09-08-2021 Exposure to SARS-CoV-2 (event) Not sure [facility] Start: 01-08-2022 End: 07-22-2023 Tobacco use and exposure Smokeless tobacco non-user [facility] Start: 05-05-2020 End: 05-06-2023 Tobacco use panel [facility] Start: 05-01-2012 National Score (1-100), lower number is lower risk Not on file [facility] Has the electric, gas, oil, or water CDP threatened to shut off services in your home in past 12Mo No [facility] Are you now , , , , never or living with a partner? [facility] How often to you hav e a drink containing alcohol? Monthly or less [facility] How many standard drinks containing alcohol do you have on a typical day? 1 or 2 [facility] How often do you hav e 6 or more drinks on 1 occasion? Never [facility] Do you feel stress - tense, restless, nervous, or anxious, or unable to sleep at night because your mind is troubled all the time - these days [OSQ] Only a little [facility] (I/We) worried whether (my/our) food would run out before (I/we) got money to buy more. Never true [facility] History of tobacco use Passive smoker [facility] Start: 1960 Sex Assigned At Female [facility] Tobacco smoking status NHIS Unknown if ever smoked [facility] Work Phone: Start: 08-22-2024 Sex Female (finding) [facility] [place] Start: 12-07-2024 Gender identity Identifies as female gender (finding) [facility] Start: 01-16-2025 Alcoholic beverage intake Ex-drinker (finding) [facility] NEGATED: Highlighted row - Never smoker UB-KYGMS-Syuvpkve 2420 DO Work Phone: Goals Date Patient Goal Desired Activity /State Functional Status Date Assessment Result Facility 01-16-2025 Total score [AUDIT-C] 0 01/17/20 25 11:06 AM Amanda Sorenson MA [facility] NEGATED: Highlighted row Functional performance Functional status health issues are not documented Disease DC-LMYRK-Sofjnpen 2420 DO Work Phone: Mental Status Date Assessment Result Facility 03-08-2025 Cognitive function Level Of Cons ciousness Sedated [facility] Work Phone: 03-08-2025 Cognitive function Voice/Name [facility] Work Phone: NEGATED: Highlighted row Cognitive function [Interpretation] Cognitive status health issues are not documented Disease HZ-AUQBF-Maucrzzu 1699 DO Work Phone: Clinical Notes 12-06-2006 to 03-29-2025 Patient Janina Coulter PA-C - 01/16/2025 11:01 AM EDT Note Date & Type Note Facility 03-29-2025 Note HNO ID: [id number] Author: ?, ?, ? Service: ? Author Type: Licensed Nurse Type: Progress Notes Filed: 03/29/2025 14:28 Note Text: Patient was offered sooner appt but not with physician she had planned to establish care with. Would like to have appt with that Dr scheduled again. Patient taken to schedulers to assist with appt. Pina Szymanski LPN [facility] 03-13-2025 Progress note [facility] 03-13-2025 Note HNO ID: [id number] Author: ADARSH CAMACHO APRN.[employer]PERATOR Service: ? Author Type: Nurse Practitioner Type: Progress Notes Filed: 03/13/2025 13:00 Note Text: URGENT CARE CATHERINE Ramsey is a 64 year old female. Patient presents with: Ear Pain: L ear pain, x 2 days, on outside of ear painful to touch, nasal congestion, Ear Pain The patient is a 64-year-old female with a history of chronic sinus infections, presenting with right ear pain and pressure. Right Ear Pain and Pressure: - Onset 2 days ago; significant pain and tenderness noted this morning. - Denies associated fever, cough, or congestion. - Uses Flonase daily. - History of tympanic membrane perforation in the right ear. - Denies recent antibiotic use. Chronic Sinus Infections: - Managed by Dr. Elizabeth; last seen in the spring. - Previously treated with antibiotics and steroids. - Uses a nebulizer for symptom relief. - Denies current sinus pain or pressure. - Aggravated by cold drafts or water in the ear. COVID-19: - Currently recovering from COVID-19. - Experiencing persistent cough and altered taste sensation. Review of Systems Constitutional: (+) fatigue, (-) fever Ears/Nose/Mouth/Throat: (+) ear pain, (+) green nasal discharge, (-) nasal congestion, (-) sinus pain Respiratory: (+) cough PAST MEDICAL HISTORY Diagnosis Date Chronic sinusitis COVID 02/2022 Recurrent otitis media PAST SURGICAL HISTORY Procedure Laterality Date COLOGUA2024 Negative COLONOSCOPY 01/27/2021 EAR SURGERY HX Right EGD W/O [facility] SPEC VARICIES INJ 10-12 years ago ALLERGIES Ciprofloxacin, Doxycycline, Abby [Fexofenadine Hcl], Claritin [Loratadine], Lipitor [Atorvastatin], Sulfa (Sulfonamide Antibiotics), and Zyrtec [Cetirizine Hcl] MEDICATIONS estradiol (ESTRACE) 0.01 % (0.1 mg/gram) vaginal cream USE A SMALL AMOUNT OF CREAM VAGINALLY DIRECTED EVERY OTHER DAY FOR 4 WEEKS, THEN USE TIWCE WEEKLY THEREAFTER. albuterol HFA (PROVENTIL HFA, VENTOLIN HFA) 90 mcg/actuation inhaler Inhale 2 puffs as instructed every 6 hours as needed for wheezing/shortness of breath. fluticasone (FLONASE) 50 mcg/actuation nasal spray Use 2 Sprays in each nostril once daily. FAMILY HISTORY Problem Relation Age of Onset Hypothyroidism Mother Hyperlipidemia Mother GERD Mother Alzheimer's Disease Mother Pre stage-92, 11/2024 other (stomach cancer) Father stomach Hypertension Father Hypertension Brother Hyperlipidemia Brother Colon Cancer No Family History SOCIAL HISTORY[1] Objective BP 130/89 Pulse 76 Temp 36.7 ?C (98.1 ?F) Resp 20 Wt 62 kg (136 lb 11 oz) SpO2 100% BMI 23.62 kg/m? Physical Exam Constitutional: General: She is not in acute distress. Appearance: Normal appearance. She is normal weight. She is not ill-appearing or toxic-appearing. HENT: Head: Normocephalic and atraumatic. Jaw: No trismus. Right Ear: Ear canal and external ear normal. A middle ear effusion is present. Tympanic membrane is scarred. Left Ear: Ear canal and external ear normal. A middle ear effusion is present. Tympanic membrane is scarred. Ears: Comments: 1/2 cm hole in eardrum Nose: Congestion and rhinorrhea present. Right Sinus: No maxillary sinus tenderness or frontal sinus tenderness. Left Sinus: No maxillary sinus tenderness or frontal sinus tenderness. Eyes: Extraocular Movements: Extraocular movements intact. Conjunctiva/sclera: Conjunctivae normal. Pupils: Pupils are equal, round, and reactive to light. Cardiovascular: Rate and Rhythm: Normal rate and regular rhythm. Pulses: Normal pulses. Heart sounds: Normal heart sounds, S1 normal and S2 normal. Pulmonary: Effort: Pulmonary effort is normal. Breath sounds: Normal breath sounds. Lymphadenopathy: Cervical: No cervical adenopathy. Neurological: Mental Status: She is alert. { 1. Eustachian tube dysfunction, left (H69.92) 2. Hole in the ear drum, left (H72.92) - Exam revealed fluid behind the left tympanic membrane without erythema, bulging, or purulence; consistent with eustachian tube dysfunction. - Discussed that fluid is likely causing pain and pressure; no signs of acute otitis media. - Refer to ENT within the [facility] system for further evaluation and management. - Advised against unnecessary use of antibiotics and steroids to avoid resistance and immunosuppression, especially during respiratory season. and Recording using [employer] software for draft documentation of the visit was discussed with the patient/authorized accounts receivable representative; all questions welcomed and answered. Patient/authorized accounts receivable representative agreed to proceed History and Record Review External record(s) reviewed: prior outpatient record. Findings from review of outpatient records: Previous medical history. Disposition The patient was discharged. OTC Medications were advised: Continue Flonase and antihistamines (more content not included)... [facility] 03-08-2025 Consult note [facility] 03-08-2025 Consult note [facility] 03-08-2025 Procedure note [facility] 03-08-2025 Procedure note [facility] 03-08-2025 Consult note [facility] 03-08-2025 History and physi todd note [facility] 03-08-2025 Note [facility] Medical Records Department [address] [place] [address] History Physical Exam 03/08/25 0633 MR#: [id number] Acct: [id number] Name: TIFFANIE RAMSEY Rep #: [id number] : 1960 64 From: Chuck Friend PCP: Dr. Bello Davenport MD Status:[facility] Location: [place] [address] HPI - General General Date of Admission: 03/08/25 Date of Service: 03/08/25 Chief Complaint: Abdominal pain HPI Narrative [ TIFFANIE RAMSEY, is a 64 F who presents for concerns regarding LUQ abdominal pain. She states that the pain is intermittent and travels but seems to settle in that area until a BM gives relief. She states that she's had multiple colonoscopies and states that nothing is ever seen in this area. She reports fatigue and difficulty stomaching her supplements ever since her COVID infection fall of . She reports participating in a clinic for long COVID. She has a chronic sinus infection along with complaints of heartburn, excessive gas, bloating and cramping in lower abdomen. She states that this is the third doctor's office she's to for a diagnosis of her abdominal complaints. She takes a Miralax cookie as needed for BMs, not letting her bowels go longer than 3 days without a BM. She denies difficulty chewing and swallowing, cough, throat clearing, reflux, nausea, emesis, diarrhea, hematochezia, and melena. She denies change in water source and recent travel out of the country. ] [facility] Medical History Arthritis High cholesterol Injury of back History of IBS Heartburn Non-smoker Shortness of breath on exertion History of echocardiogram Long COVID Left shoulder pain Home Medications ???Medication ???Instructions ???Recorded ???Last Taken ???Type fluticasone propionate 50 1 spray intranasal QDAY 08/31/24 U nknown History mcg/actuation nasal spray,suspension (Flonase Allergy Relief) acetaminophen 650 mg 650 mg PO DAILY 12/26/24 Unknown H istory tablet,extended release (Tylenol Arthritis Pain) estradiol 0.01% (0.1 mg/gram) See Rx Instructions vaginal Unknown Rx vaginal cream .COMPLEX #42.5 grams L.acidophilus-B.animalis-B.longum 1 cap PO DAILY 03/02/25 Unknown H istory 15 billion cell capsule (Florajen Digestion) Allergy/AdvReac Type Severity Reaction Status Date / Time Sulfa (Sulfonamide Allergy Overheats Verified 03/08/25 05:48 Antibiotics) (sulfa drugs) and gets very tired ciprofloxacin (From Cipro) AdvReac Mild Other Verified 03/08/25 05:48 Family History Father Cancer Stomach Mother Cancer Melanoma Surgical History History of esophagogastroduodenoscopy (EGD) History of colonoscopy History of wisdom tooth extraction History of bilateral cataract extraction History of ear surgery Social History household members: spouse Smoking Status: Never smoker alcohol intake: former substance use type: does not use seatbelt use: always do you feel safe at home: Yes additional social history: - Jorge AC Constitutional Constitutional: Denies fatigue, fever(s), poor appetite, weight gain or weight loss Gastrointestinal Gastrointestinal: Denies belching, bloating, change in bowel habits, change in stool character, chewing difficulty, coffee ground emesis, constipation, cramping, diarrhea, dyspepsia, dysphagia, early satiety, excessive flatus, fecal incontinence, heartburn, hematemesis, hematochezia, hemorrhoids, loose stools, melena, nausea, odynophagia, rectal bleeding, tenesmus, vomiting or weight changes Vital Signs Vital Signs Vital Signs: 03/08/25 05:49 03/08/25 05:49 Temperature 97.7 F L Temperature Source Temporal Pulse Rate 66 Respiratory Rate 16 Respiratory Pattern Normal Blood Pressure 132/80 H Blood Pressure Mean 97 Blood Pressure Source Monitor Blood Pressure Position Semi-Fowlers Blood Pressure Location Left Arm Pulse Ox 100 Oxygen Delivery Method Room Air Weight Weight: 138 lb 3.677 oz Body Mass Index (BMI) 25.2 Physical Exam Const alert, oriented x3, no apparent distress and healthy appearing General Appearance: cooperative GI normal to inspection, nondistended, normoactive bowel sounds, soft to palpation, non-tender and non- distended Percussion: normal to percussion Rectal Exam: deferred Assessment Plan Assessment/Plan (1) Gas bloat syndrome: (2) Abdominal pain: PLAN: Assessment and Plan Assessment and Plan (1) Gas bloat syndrome: Status: Acute (2) Heartburn symptom: Status: Acute Plan TIFFANIE RAMSEY, is a 64 F w (more content not included)... [facility] 02-22-2025 Note HNO ID: [id number] Author: TAQUERIA VIEIRA MD Service: ? 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 Repeat reCOVer Clinic visit. HPI Long COVID: - Initial COVID infection in February 2023; symptoms have persisted since. - Recent COVID infection in early January; Tiffanie reports feeling worse since. - Symptoms include: - Decreased energy, lethargy, and exhaustion. - Insomnia and racing thoughts. - Dyspnea on exertion. - Brain fog. - Arthralgias, particularly in knees and shoulders. - GI issues, including cramps and IBS-like symptoms. - Burning sensation in the tongue. - Anosmia and ageusia. - Alopecia. - Anxiety. - Recent negative Cologuard test. - Multiple reactions to vaccines reported. - Recent echocardiogram on 02/20/2025 showed EF of 60 ? 5%, normal left ventricular diastolic dysfunction, normal right-sided heart, and no significant valve abnormalities. - PFTs on 12/21/2024 were unremarkable. - Seen by GI on 01/16/2025; scheduled for EGD. - Seen by pulmonary on 12/29/2024; referred to pulmonary rehab and initiated on albuterol. - Seen by ENT, Dr. Elizabeth, in [place]; no records available. - Seen by sleep medicine, Dr. Gibson, in [place]; sleep study ordered but not yet completed. - Seen by geriatrics, Dr. Tabor, for evaluation of brain fog. - Consulted psychology for cognitive behavioral therapy. - Tiffanie was unable to tolerate low-dose naltrexone; experienced adverse effects. - Tried a medication starting with M-O-D; initially felt energetic but experienced severe fatigue three days later. - Taking 2 arthritic Tylenol (1,300 mg) daily for pain management; occasionally skips doses if asymptomatic. - Denies taking calcium supplements; reports elevated calcium levels for years. - No worsening cough, fevers, or chills currently; attributes recent cough to sinus issues. - Denies worsening abdominal symptoms during recent COVID infection; manages GI symptoms by avoiding wheat. - Optimistic about recovery; plans to get another COVID vaccine in approximately 90 days. MEDICATIONS: Current Outpatient Medications Medication Sig estradiol (ESTRACE) 0.01 % (0.1 mg/gram) vaginal cream USE A SMALL AMOUNT OF CREAM VAGINALLY DIRECTED EVERY OTHER DAY FOR 4 WEEKS, THEN USE TIWCE WEEKLY THEREAFTER. albuterol HFA (PROVENTIL HFA, VENTOLIN HFA) 90 mcg/actuation inhaler Inhale 2 puffs as instructed every 6 hours as needed for wheezing/shortness of breath. fluticasone (FLONASE) 50 mcg/actuation nasal spray Use 2 Sprays in each nostril once daily. No current facility-administered medications for this visit. ALLERGIES: ALLERGIES Allergen Reactions Ciprofloxacin Other: See Comments Abdominal cramping Doxycycline Other: See Comments Abdominal cramping Abby [Fexofenadi* Intolerance Hyperactivity Claritin [Loratadin* Intolerance Hyperactivity Lipitor [Atorvastat* GI Upset Sulfa (Sulfonamide * Rash Zyrtec [Cetirizine * Intolerance Drowsiness PAST MEDICAL HISTORY Diagnosis Date Chronic sinusitis COVID 02/2022 Recurrent otitis media PAST SURGICAL HISTORY Procedure Laterality Date COLOGUA2024 Negative COLONOSCOPY 01/27/2021 [facility] SURG[facility] VARICIES INJ 10-12 years ago FAMILY HISTORY Problem Relation Age of Onset Hypothyroidism Mother Hyperlipidemia Mother GERD Mother Alzheimer's Disease Mother Pre stage-92, 11/2024 other (stomach cancer) Father stomach Hypertension Father Hypertension Brother Hyperlipidemia Brother Colon Cancer No Family History SOCIAL HISTORY[1] Reviewed current medications, allergies, past medical history, surgical history, family history and social history today. REVIEW OF SYSTEMS Constitutional: (+) fatigue, (+) sleep disturbance, (-) fever, (-) chills Ears/Nose/Mouth/Throat: (+) burning tongue, (+) altered taste, (+) altered smell Respiratory: (+) exertional shortness of breath, (+) cough Gastrointestinal: (+) abdominal cramps, (+) abdominal discomfort Musculoskeletal: (+) polyarticular joint pain Skin: (+) alopecia Neurological: (+) brain fog Psychiatric: (+) anxiety, (+) racing thoughts LAB REVIEWED: (02/20/2025) Echocardiogram: Ejection fraction 60?5; normal left ventricular diastolic function; normal right-sided heart; no significant valvular abnormalities (12/21/2024) Pulmonary Function Tests: Unremarkable (12/01/2024) BACH Test: Probability of cognitive impairment 27.06 (considered quite good) (11/30/2024) - CBC: - Hemoglobin: 15.8 g/dL (mildly elevated) - Remainder: Unremarkable - CMP: - Albumin: 5 g/dL - Protein: 8.1 g/dL - Calcium: 10.6 mg/dL (elevated) - Remainder: Unremarkable - [place] Check: 3.2 (mildly (more content not included)... [facility] 02-07-2025 Note HNO ID: [id number] Author: ?, ?, ? Service: ? Author Type: ? Type: Progress Notes Filed: 02/07/2025 10:07 Note Text: Spoke with patient to reschedule her EGD with [facility] at a hospital / [place] [facility] is not able to do her procedure per Dr. Lambert. Patient will be going to [facility] for her procedure Elza Wu [facility] 01-23-2025 Note HNO ID: [id number] Author: JEREMY SCHAEFFER MD Service: ? Author Type: Physician Type: Progress Notes Filed: 01/23/2025 13:47 Note Text: 01/23/2025 Even LDN 0.4 mg daily caused abdominal pain side effects. Stopped LDN. Instead, we will try following for 3 weeks, then do a virtual appt. NAC 1,000 mg daily L-carnitine 1,000 mg daily [facility] 01-16-2025 Instructions Janina Miranda PA-C - 01/16/2025 11:24 AM EDT Images from the original note were not included. - Start OTC probiotic with at least 15 billion live cultures, 10+ strains - Drink around 64 oz water daily - Consider starting daily fiber powder such as Metamucil/Citrucel Gastroesophageal Reflux Disease (GERD) Heartburn is a burning sensation in the center of your chest that often occurs after you eat, bend over, exercise, and sometimes at night when you are lying down. Approximately one in 10 adults has heartburn at least once a week and one in three monthly. Some women experience heartburn almost daily as a result of increased pressure on the abdomen and hormonal changes. Despite its name, heartburn has nothing to do with your heart. Heartburn symptoms indicate a condition called gastroesophageal reflux disease, or GERD. This fact sheet offers some tips on how to relieve heartburn caused by this condition. What is GERD? When you swallow, food passes down your throat and through your esophagus to your stomach. A muscle called the lower esophageal sphincter controls the opening between the esophagus and the stomach. The muscle remains tightly closed except when you swallow food. When this muscle fails to close, the acid-containing contents of the stomach can travel back up into the esophagus. This backward movement is called reflux. When stomach acid enters the lower part of the esophagus, it can produce a burning sensation, commonly referred to as heartburn. Several factors might explain why this reflux action occurs and might offer some clues for relief. The most important are: The position of your body after eating (An upright posture helps prevent reflux.) The size of the meal (Smaller meals reduce reflux.) The nature of foods you consume (Certain substances that irritate the esophagus or weaken the sphincter can cause reflux.) How is GERD treated? To treat GERD, we recommend the following: Raise the head of your bed by six inches to allow gravity to help keep the stomach's contents in the stomach. (Do not use piles of pillows because this puts your body into a bent position that actually aggravates the condition by increasing pressure on the abdomen.) Eat meals at least three to four hours before lying down, and avoid bedtime snacks. Eat moderate portions of food and smaller meals. Maintain a healthy weight to eliminate unnecessary intra-abdominal pressure caused by extra pounds. Limit consumption of fatty foods, chocolate, peppermint, coffee, tea, jossy, and alcohol - all of which relax the lower esophageal sphincter. Also, avoid tomatoes and citrus fruits or juices, which contribute additional acid that can irritate the esophagus. Give up smoking, which also relaxes the lower esophageal sphincter. Wear loose belts and clothing. What if my GERD and heartburn persist? Many people will get relief from heartburn, and the pressure that goes with esophageal reflux, by following the tips above. [id number] liquid antacids can also help in treating occasional heartburn. If your symptoms persist, do not respond to treatment, or occur often, you need to see a doctor for testing and treatment. A visual examination of the esophagus, known as an endoscopy, might be necessary. Sometimes this test shows that the lining of the esophagus is severely inflamed and irritated by stomach acid. This condition, known as esophagitis, might lead to bleeding and difficulty in swallowing. Medical treatment for this condition might be necessary. This usually involves blocking acid production in the stomach. Ykdr-ldo-weyfnku medicines, such as Tums , Rolaids , Maalox , Zantac , Tagamet , Prilosec, ,Pepcid , and Axid , can generally relieve esophageal reflux symptoms. Patients with more severe symptoms or those who have been using antacids for more than two weeks should contact their doctors, who can prescribe medicines to control or eliminate acid, such as H2-receptor antagonists and proton pump inhibitors. Only a few people need surgery to correct the disorder. documented in this encounter [facility] 01-16-2025 Note HNO ID: [id number] Author: JANINA MIRANDA PA-C Service: ? Author Type: Physician Reinforcement Maker Type: Progress Notes Filed: 01/16/2025 11:48 Note Text: CHIEF COMPLAINT: Patient presents with: GERD: Abdominal discomfort HPI: Tiffanie Ramsey is a 64 year old female who presents for GERD (Abdominal discomfort ). She reports that her symptoms began after a COVID-19 infection in 02/2022, with some initial improvement, but worsened significantly following a shingles vaccination earlier this year. Since then, she experiences only about 5 hours of feeling well per day, with a single ?really good day? approximately every 8 weeks. She describes daily heartburn and frequent hiccups triggered by most foods except those high in oil or mayonnaise. She also notes a non-painful, intermittent sensation in the left upper abdomen, sometimes radiating centrally, which is occasionally triggered by movement, such as turning while driving. She denies dysphagia. Her reflux symptoms are most pronounced after meals. She has tried omeprazole in the past but discontinued it due to mild side effects. Recently, she has used Wonderbelly antacid tablets twice in the past week for symptom relief. She reports unintentional weight gain. Her bowel habits consist of approximately 5 bowel movements per week, with occasional episodes of narrow-caliber stools and cramping, particularly during periods of increased stress. She attributes a recent flare of these symptoms to increased stress and dietary changes related to her ?s cardiac surgery and recovery. She has been following a wheat-free diet since last fall, which initially improved her symptoms, but she recently experienced a recurrence of symptoms. She has also been eating black beans daily as part of her ?s diet. She recently started low-dose naltrexone for post-COVID fatigue, but experienced increased abdominal pain when the dose was increased to 2 pills daily. She is now taking a quarter of a pill daily, which has improved her sleep without worsening abdominal pain. She is currently taking extra-strength Tylenol (2 tablets daily) and denies any use of NSAIDs, alcohol, or marijuana. She reports significant stress related to her ?s recent open-heart surgery and pacemaker placement, as well as caring for her mother with Alzheimer?s disease. She is her mother?s primary caregiver, with some assistance from her brother. She has a family history of stomach cancer in her father, who was diagnosed at age 89[address] scan performed last year at [facility] reportedly showed only stool retention, with no other significant findings. Cologuard 07/2024 negative Colonoscopy 2020 normal exam, no specimens Latest Ref Rng 11/30/2024 WBC 3.70 - 11.00 k/uL 6.47 RBC 3.90 - 5.20 m/uL 5.46 (H) Hemoglobin 11.5 - 15.5 g/dL 15.8 (H) Hematocrit 36.0 - 46.0 % 47.8 (H) MCV 80.0 - 100.0 fL 87.5 MCH 26.0 - 34.0 pg 28.9 MCHC 30.5 - 36.0 g/dL 33.1 RDW-CV 11.5 - 15.0 % 14.1 Platelet Count 150 - 400 k/uL 300 MPV 9.0 - 12.7 fL 10.4 Neut% % 66.7 Abs Neut (ANC) 1.45 - 7.50 k/uL 4.31 Lymph% % 21.9 Abs Lymph 1.00 - 4.00 k/uL 1.42 Sargent% % 6.6 Abs Sargent <0.87 k/uL 0.43 Eosin% % 2.8 Abs Eosin <0.46 k/uL 0.18 Baso% % 1.4 Abs Baso <0.11 k/uL 0.09 Immature Gran % % 0.6 IMMATURE GRANS (ABS) <0.10 k/uL 0.04 NRBC /100 WBC 0.0 Absolute nRBC <0.01 k/uL <0.01 DTYPE Auto Protein, Total 6.3 - 8.0 g/dL 8.1 (H) Albumin 3.9 - 4.9 g/dL 5.0 (H) Calcium 8.5 - 10.2 mg/dL 10.6 (H) Bilirubin, Total 0.2 - 1.3 mg/dL 1.0 Alkaline Phosphatase 34 - 123 U/L 64 AST 13 - 35 U/L 31 ALT 7 - 38 U/L 36 Glucose 74 - 99 mg/dL 91 BUN 7 - 21 mg/dL 12 Creatinine 0.58 - 0.96 mg/dL 0.73 Sodium 136 - 144 mmol/L 141 Potassium 3.7 - 5.1 mmol/L 4.1 Chloride 98 - 107 mmol/L 101 CO2 22 - 30 mmol/L 25 Anion Gap 8 - 15 mmol/L 15 eGFR >=60 mL/min/1.73m? 91 TSH 0.270 - 4.200 mIU/L 0.919 Vitamin B12 232 - 1,245 pg/mL 713 Folate >4.7 ng/mL 16.8 Record Review: [facility] / Outside records reviewed. PAST MEDICAL HISTORY Diagnosis Date Chronic sinusitis COVID 02/2022 Recurrent otitis media PAST SURGICAL HISTORY Procedure Laterality Date COLOGUA2024 Negative COLONOSCOPY 01/27/2021 EAR SURGERY HX Right EGD W/O BRSH SPEC VARICIES INJ 10-12 years ago Allergies: ALLERGIES Allergen Reactions Ciprofloxacin Other: See Comments Abdominal cramping Doxycycline Other: See Comments Abdominal cramping Abby [Fexofenadi* Intolerance Hyperactivity Claritin [Loratadin* Intolerance Hyperactivity Lipitor [Atorvastat* GI Upset Sulfa (Sulfonamide * Rash Zyrtec [Cetirizine * Intolerance Drowsiness Medications: estradiol (ESTRACE) 0.01 % (0.1 mg/gram) vaginal cream USE A SMALL AMOUNT OF CREAM VAGINALLY DIRECTED EVERY OTHER DAY FOR 4 WEEKS, THEN USE TIWCE WEEKLY THEREAFTER. albuterol HFA (PROVENTIL HFA, VENTOLIN HFA) 90 mcg/actuation inhale (more content not included)... [facility] 01-16-2025 History of Present illness Narrative Formatting of this note is different fro m the original. CHIEF COMPLAINT: Patient presents with: GERD: Abdominal discomfort HPI: Tiffanie Ramsey is a 64 year old female who presents for GERD (Abdominal discomfort ). She reports that her symptoms began after a COVID-19 infection in 02/2022, with some initial improvement, but worsened significantly following a shingles vaccination earlier this year. Since then, she experiences only about 5 hours of feeling well per day, with a single really good day approximately every 8 weeks. She describes daily heartburn and frequent hiccups triggered by most foods except those high in oil or mayonnaise. She also notes a non-painful, intermittent sensation in the left upper abdomen, sometimes radiating centrally, which is occasionally triggered by movement, such as turning while driving. She denies dysphagia. Her reflux symptoms are most pronounced after meals. She has tried omeprazole in the past but discontinued it due to mild side effects. Recently, she has used Wonderbelly antacid tablets twice in the past week for symptom relief. She reports unintentional weight gain. Her bowel habits consist of approximately 5 bowel movements per week, with occasional episodes of narrow-caliber stools and cramping, particularly during periods of increased stress. She attributes a recent flare of these symptoms to increased stress and dietary changes related to her s cardiac surgery and recovery. She has been following a wheat-free diet since last fall, which initially improved her symptoms, but she recently experienced a recurrence of symptoms. She has also been eating black beans daily as part of her s diet. She recently started low-dose naltrexone for post-COVID fatigue, but experienced increased abdominal pain when the dose was increased to 2 pills daily. She is now taking a quarter of a pill daily, which has improved her sleep without worsening abdominal pain. She is currently taking extra-strength Tylenol (2 tablets daily) and denies any use of NSAIDs, alcohol, or marijuana. She reports significant stress related to her s recent open-heart surgery and pacemaker placement, as well as caring for her mother with Alzheimer s disease. She is her mother s primary caregiver, with some assistance from her brother. She has a family history of stomach cancer in her father, who was diagnosed at age 89[address] scan performed last year at [facility] reportedly showed only stool retention, with no other significant findings. Cologuard 07/2024 negative Colonoscopy 2020 normal exam, no specimens Latest Ref Rng 11/30/2024 WBC 3.70 - 11.00 k/uL 6.47 RBC 3.90 - 5.20 m/uL 5.46 (H) Hemoglobin 11.5 - 15.5 g/dL 15.8 (H) Hematocrit 36.0 - 46.0 % 47.8 (H) MCV 80.0 - 100.0 fL 87.5 MCH 26.0 - 34.0 pg 28.9 MCHC 30.5 - 36.0 g/dL 33.1 RDW-CV 11.5 - 15.0 % 14.1 Platelet Count 150 - 400 k/uL 300 MPV 9.0 - 12.7 fL 10.4 Neut% % 66.7 Abs Neut (ANC) 1.45 - 7.50 k/uL 4.31 Lymph% % 21.9 Abs Lymph 1.00 - 4.00 k/uL 1.42 Sargent% % 6.6 Abs Sargent <0.87 k/uL 0.43 Eosin% % 2.8 Abs Eosin <0.46 k/uL 0.18 Baso% % 1.4 Abs Baso <0.11 k/uL 0.09 Immature Gran % % 0.6 IMMATURE GRANS (ABS) <0.10 k/uL 0.04 NRBC /100 WBC 0.0 Absolute nRBC <0.01 k/uL <0.01 DTYPE Auto Protein, Total 6.3 - 8.0 g/dL 8.1 (H) Albumin 3.9 - 4.9 g/dL 5.0 (H) Calcium 8.5 - 10.2 mg/dL 10.6 (H) Bilirubin, Total 0.2 - 1.3 mg/dL 1.0 Alkaline Phosphatase 34 - 123 U/L 64 AST 13 - 35 U/L 31 ALT 7 - 38 U/L 36 Glucose 74 - 99 mg/dL 91 BUN 7 - 21 mg/dL 12 Creatinine 0.58 - 0.96 mg/dL 0.73 Sodium 136 - 144 mmol/L 141 Potassium 3.7 - 5.1 mmol/L 4.1 Chloride 98 - 107 mmol/L 101 CO2 22 - 30 mmol/L 25 Anion Gap 8 - 15 mmol/L 15 eGFR >=60 mL/min/1.73m 91 TSH 0.270 - 4.200 mIU/L 0.919 Vitamin B12 232 - 1,245 pg/mL 713 Folate >4.7 ng/mL 16.8 Record Review: [facility] / Outside records reviewed. PAST MEDICAL HISTORY Diagnosis Date Chronic sinusitis COVID 02/2022 Recurrent otitis media PAST SURGICAL HISTORY Procedure Laterality Date COLOGUA2024 Negative COLONOSCOPY 01/27/2021 EAR SURGERY HX Right EGD W/O BRSH SPEC VARICIES INJ 10-12 years ago Allergies: ALLERGIES Allergen Reactions Ciprofloxacin Other: See Comments Abdominal cramping Doxycycline Other: See Comments Abdominal cramping Abby [Fexofenadi* Intolerance Hyperactivity Claritin [Loratadin* Intolerance Hyperactivity Lipitor [Atorvastat* GI Upset Sulfa (Sulfonamide * Rash Zyrtec [Cetirizine * Intolerance Drowsiness Medications: estradiol (ESTRACE) 0.01 % (0.1 mg/gram) vaginal cream USE A SMALL AMOUNT OF CREAM VAGINALLY DIRECTED EVERY OTHER DAY FOR 4 WEEKS, THEN USE TIWCE WEEKLY THEREAFTER. albuterol HFA (PROVENTIL HFA, VENTOLIN HFA) 90 mcg/actuation inhaler Inhale 2 puffs as instructed every 6 hours as needed for wheezing/shortness of breath. naltrexone (NALTREX) 1.5 mg cap Take 1 tablet (1.5 mg) per day for 3 days, then 2 tablets (3 mg) per day for 3 days, then 3 tablets (4.5 mg) per day until completing bottle. fluticasone (FLONASE) 50 mcg/actuation nasal spray Use 2 Sprays in each nostril once daily. FAMILY HISTORY Problem Relation Age of Onset Hypothyroidism Mother Hyperlipidemia Mother GERD Mother Alzheimer's Disease Mother Pre stage-, 11/2024 other (stomach cancer) Father stomach Hypertension Father Hypertension Brother Hyperlipidemia Brother Colon Cancer No Family History Employer And Job Title: None on file Years Of Education Completed: Not specified Marital Status: SOCIAL HISTORY[1] Review of Systems: Review of Systems Constitutional: Positive for fatigue. Respiratory: Positive for cough. Gastrointestinal: Positive for abdominal distention. Change in Bowel Habits All other systems reviewed and are negative. Are you taking any blood thinners? No Physical Examination: BP 118/80 Pulse 72 Ht 5' 2.72 (1.59m) Wt 135 lb 12.8 oz (61.6kg) BMI 24.27 kg/(m^2). Physical Exam Constitutional: General: She is not in acute distress. Appearance: Normal appearance. She is normal weight. She is not ill-appearing, toxic-appearing or diaphoretic. HENT: Head: Normocephalic and atraumatic. Nose: Nose normal. Eyes: General: No scleral icterus. Right eye: No discharge. Left eye: No discharge. Extraocular Movements: Extraocular movements intact. Conjunctiva/sclera: Conjunctivae normal. Pupils: Pupils are equal, round, and reactive to light. Cardiovascular: Rate and Rhythm: Normal rate and regular rhythm. Pulses: Normal pulses. Heart sounds: Normal heart sounds. No murmur heard. No friction rub. No gallop. Pulmonary: Effort: No respiratory distress. Breath sounds: Normal breath sounds. No stridor. No wheezing, rhonchi or rales. Chest: Chest wall: No tenderness. Abdominal: General: Abdomen is flat. Bowel sounds are normal. There is no distension. Palpations: Abdomen is soft. There is no mass. Tenderness: There is abdominal tenderness (Mild TTP LUQ, mid abdomen). There is no right CVA tenderness, left CVA tenderness, guarding or rebound. Hernia: No hernia is present. Musculoskeletal: General: Normal range of motion. Cervical back: Normal range of motion and neck supple. Skin: General: Skin is warm and dry. Neurological: General: No focal deficit present. Mental Status: She is alert and oriented to person, place, and time. Psychiatric: Mood and Affect: Mood normal. Behavior: Behavior normal. 1. Gastroesophageal reflux disease, unspecified whether esophagitis present (K21.9) Chronic GERD with persistent symptoms despite prior use of omeprazole and OTC antacids; symptoms may be exacerbated by dietary triggers and stress. - Recommended upper endoscopy to evaluate for underlying pathology. Will need updated ECHO prior; scheduled 01/2025 per PCP - Provided education on reflux precautions and dietary modifications to minimize symptom triggers. 2. LUQ discomfort (R10.12) 3. Change in bowel habits (R19.4) LUQ discomfort and changes in bowel habits likely represent an irritable bowel syndrome flare, potentially triggered by dietary changes and increased stress. - Recommended upper endoscopy to rule out other pathology. - Provided education on dietary modifications, including high-fiber diet and use of psyllium husk-based fiber supplements such as Metamucil or Citrucel. Suggested trying alternative probiotic to Florajen - Advised keeping a food journal to identify potential dietary triggers. Recording using [employer] software for draft documentation of the visit was discussed with the patient/authorized accounts receivable representative; all questions welcomed and answered. Patient/authorized accounts receivable representative agreed to proceed I spent a total of 30 minutes on the date of the service which included preparing to see the patient, [id number] patient care, completing clinical documentation, obtaining and/or reviewing separately obtained history, performing a medically appropriate examination, counseling and educating the patient/family/caregiver, ordering medications, tests, or procedures, communicating with other HCPs (not separately reported), independently interpreting results (not separately reported), communicating results to the patient/family/caregiver, and care coordination (not separately reported). Janina Miranda PA-C January 16, 2025 11:45 AM [1] Social History Tobacco Use Smoking status: Never Passive exposure: Past Smokeless tobacco: Never Substance Use Topics Alcohol use: Not Currently Comment: rare Drug use: Never documented in this encounter [facility] 01-15-2025 History and physi todd note Note Date/Time January 15, 2025 6:54pm [facility] Pulmonary Rehab Reports [address] [place] [address] ID - History & Physical MR#: [id number] Acct: [id number] Name: TIFFANIE RAMSEY Rep #:[id number] 3 : 1960 64 From: Renzo DE, RVT PCP: Dr. Bello Davenport MD History of Present Illness General Arrival date:: 01/12/25 Arrival time:: 10:35 Date of Referral:: 12/29/24 Date of Evaluation: 01/12/25 Referring Physician: Dr. 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 Y/N Grade: Description of Breathlessness: y 0 I only get breathless with strenuous exercise. n 1 I get short of breath when hurrying on level ground or walking up a slight hill. n 2 On level ground, I walk slower than people of the same age because of breathless, or have to stop for breath when walking at my own pace. n 3 I stop for breath after walking 100 yards or after a few minutes on level ground. n 4 I am too breathless to leave the house or I am breathless when dressing. Respiratory Problems: Yes Fatigue, Dizziness, Hoarseness, Anxiety and Dyspnea with Activity; No Retain Secretions, Limited Range of Motion, Chest Pain, Wheezing, Able to Speak in Full Sentences, Ankle Swelling, Panic, Dyspnea at Rest, Dyspnea Lying Down Flat or Cough with Secretions Medications Home Medications fluticasone propionate 50 mcg/actuation nasal spray,suspension (Flonase Allergy Relief) 1 spray intranasal QDAY 08/31/24 acetaminophen 650 mg tablet,extended release (Tylenol Arthritis Pain) 650 mg PO Q8H 12/26/24 estradiol 0.01% (0.1 mg/gram) vaginal cream See Rx Instructions vaginal .COMPLEX#42.5 grams 12/26/24 Allergies Allergies Sulfa (Sulfonamide Antibiotics) (sulfa drugs) Allergy (Verified 12/26/24 09:19) Overheats and gets very tired ciprofloxacin (From Cipro) Adverse Reaction (Mild, Verified 12/26/24 09:19) Other Abdominal pain Sleep Disorder Evaluation Hx of Sleep Apnea: No Do you snore loudly (louder than talking or can be heard through closed doors)?:No Do you often feel tired/ fatigued/ sleepy during daytime?: Yes Has anyone observed you stop breathing during sleep?: No History of Hypertension (for STOP score): No STOP Results: Negative Medical Utilization Medical Devices Do you use a peak flow meter at home?: No Do you use a spacer device with your inhalers?: Yes Medical Utilization Number of hospital visits in the last year?: 0 Number of emergency room visits in the last year?: 0 Do you see your physician on a regular schedule?: Yes How often?: every 3 to 6 months Advanced Directives Advanced Directives Do you have a Healthcare Power of Roll Forming Machine Set Up Operator?: Yes Living Will: Yes Advance Directives Information Provided: Yes Advance Directives on File: No DNR Order?:: No Past Medical History Covid-19 Screening Physicial Symptoms Other Clinical Concerns Exposure Risk Pertinent Comorbidities 65 years or older:: Yes Has a chronic lung disease or moderate to severe asthma:: Yes Medical History Past Medical History (Updated 12/26/24 @ 09:59 by Lise Araya NP, CEMENT KILN OPERATOR-C) Long COVID U09.9 Left shoulder pain M25.512 Surgical History Past Surgical History Hx of cataract extraction Z98.49 History of ear surgery Z98.890 has patch, hx of perforated eardrum Significant Family History Family History (Updated 12/26/24 @ 09:13 by Hortencia Muñoz) Father Cancer Stomach Mother Cancer Melanoma Social History Smoking History Smoking Status: Never smoker Alcohol Use Alcohol Usage: No Substance Abuse Hx Substance Use: No Occupation Occupation (List type of work in comments):: Retired Functioning ADL/IADL Current Ability Current Ability: Independent: Self-Care (e.g.,grooming, dressing, & bathing), Independent: Ambulation, Independent: Transfer and Independent: Household tasks (e.g., light meal prep, laundry, shopping) Pt Functioning Prior to Problem Prior Functioning: Self-Care (e.g.,grooming, dressing, & bathing): Independent, Ambulation: Independent, Transfer: Independent and Household tasks (e.g., light meal prep, laundry, shopping): Independent Social Environment Status Marital Status: Current Living Arrangements Living Environment:: Spouse Safety Do you feel safe in your surroundings?: Yes Assistance Do you need any assistance at home?: no Review of Systems Review of Systems Review of Systems Respiratory: Reports Cough, SOB upon Exertion, Dizziness/Lightheadedness and Fatigue; Denies Hemoptysis, Pleuritic Pain, SOB at Rest, Sputum production, Wheezing, Appetite, Normal, PVD, Sexual changes or Sleep, Normal Pain Is Patient Pain Free?: Yes Risk Factor Assessment Chief Complaint Chief Complaint: 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, dyspnea Vital Signs Pulse Rate: 71 Pulse Ox: 98 Blood Pressure: 126/79 Obesity Height: 5 ft 2 in Weight:: 136 lb Weight in Pounds: 136.0 lbs Body Mass Index (BMI): 24.8 Nutritional Referral for Obesity: No Physical Activity Physical Inactivity: Reg Exercise 30 min/day (tries to go on walks.) Risk Stratification Risk Guidelines: Moderate Risk: Risk Factor for Smoking, Risk Factor for Dyslipidemia, Risk Factor for Diabetes, Risk Factor for Obesity, Risk Factor forHypertension, Risk Factor for Sedentary Lifestyle and Risk Factor for Depression For Smoking Smoking Risk Guidelines For Dyslipidemia Dyslipidemia Risk Guidelines For Diabetes Mellitus Diabetes Risk Guidelines For Obesity/Overweight Obesity/Overweight Risk Guidelines For Hypertension Hypertension Risk Guidelines For Sedentary Lifestyle Sedentary Lifestyle Risk Guidelines For Depression Depression Risk Guidelines Motivation Motivation to Participate On a scale of 1 to 10, how prepared are you to commit to attending program?: 10 What do you see as barriers to successfully being able to complete the program?:nothing What do you see as the benefits of succesfully completing the program? In other words, what do you hope to get out of participating in the program?: more energyless SOB Are there issues you are dealing with that will interfere with completing the program?: no Do you have a spouse or signficant other, family or friends who will help support you to complete the program?: yes Diagnostic Data Review 6 Minute Walk Test 6 Minute Walk Test: 1285 feet walked at 2.4 mph Pulmonary Function Test FEV1:: 118 FVC:: 109 FEV1/FVC%:: 108 01/12/25 1121 <Electronically signed by Renzo DE, RVT> Date _ Renzo DE, RVT Outcome assessment reviewed. Exercise plan approved as documented. Treatment plan and goals support patient needs/abilities. Continue with current plan. I certify the patient demonstrates improvement and remains willing and capable of participation. the patient continues to benefit from pulmonary services/training. The patient may continue at current intensity, endurance andmodality and progress per protocol. 01/15/25 [id number]<Electronically signed by Reno Ga MD> Cosigner Signature: Date Reno Ga MD CC: ~ Signed [facility] Work Phone: [phone] History and physical note [facility] Pulmonary Rehab Reports [address] [place] [address] ID - History & Physical MR#: [id number] Acct: [id number] Name: TIFFANIE RAMSEY Rep #:[id number] 3 : 1960 64 From: Renzo DE, RVT PCP: Dr. Bello Davenport MD History of Present Illness General Arrival date:: 01/12/25 Arrival time:: 10:35 Date of Referral:: 12/29/24 Date of Evaluation: 01/12/25 Referring Physician: Dr. 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 Y/N Grade: Description of Breathlessness: y 0 I only get breathless with strenuous exercise. n 1 I get short of breath when hurrying on level ground or walking up a slight hill. n 2 On level ground, I walk slower than people of the same age because of breathless, or have to stop for breath when walking at my own pace. n 3 I stop for breath after walking 100 yards or after a few minutes on level ground. n 4 I am too breathless to leave the house or I am breathless when dressing. Respiratory Problems: Yes Fatigue, Dizziness, Hoarseness, Anxiety and Dyspnea with Activity; No Retain Secretions, Limited Range of Motion, Chest Pain, Wheezing, Able to Speak in Full Sentences, Ankle Swelling, Panic, Dyspnea at Rest, Dyspnea Lying Down Flat or Cough with Secretions Medications Home Medications fluticasone propionate 50 mcg/actuation nasal spray,suspension (Flonase Allergy Relief) 1 spray intranasal QDAY 08/31/24 acetaminophen 650 mg tablet,extended release (Tylenol Arthritis Pain) 650 mg PO Q8H 12/26/24 estradiol 0.01% (0.1 mg/gram) vaginal cream See Rx Instructions vaginal .COMPLEX#42.5 grams 12/26/24 Allergies Allergies Sulfa (Sulfonamide Antibiotics) (sulfa drugs) Allergy (Verified 12/26/24 09:19) Overheats and gets very tired ciprofloxacin (From Cipro) Adverse Reaction (Mild, Verified 12/26/24 09:19) Other Abdominal pain Sleep Disorder Evaluation Hx of Sleep Apnea: No Do you snore loudly (louder than talking or can be heard through closed doors)?:No Do you often feel tired/ fatigued/ sleepy during daytime?: Yes Has anyone observed you stop breathing during sleep?: No History of Hypertension (for STOP score): No STOP Results: Negative Medical Utilization Medical Devices Do you use a peak flow meter at home?: No Do you use a spacer device with your inhalers?: Yes Medical Utilization Number of hospital visits in the last year?: 0 Number of emergency room visits in the last year?: 0 Do you see your physician on a regular schedule?: Yes How often?: every 3 to 6 months Advanced Directives Advanced Directives Do you have a Healthcare Power of Roll Forming Machine Set Up Operator?: Yes Living Will: Yes Advance Directives Information Provided: Yes Advance Directives on File: No DNR Order?:: No Past Medical History Covid-19 Screening Physicial Symptoms Other Clinical Concerns Exposure Risk Pertinent Comorbidities 65 years or older:: Yes Has a chronic lung disease or moderate to severe asthma:: Yes Medical History Past Medical History (Updated 12/26/24 @ 09:59 by Lise Araya NP, CEMENT KILN OPERATOR-C) Long COVID U09.9 Left shoulder pain M25.512 Surgical History Past Surgical History Hx of cataract extraction Z98.49 History of ear surgery Z98.890 has patch, hx of perforated eardrum Significant Family History Family History (Updated 12/26/24 @ 09:13 by Hortencia Muñoz) Father Cancer Stomach Mother Cancer Melanoma Social History Smoking History Smoking Status: Never smoker Alcohol Use Alcohol Usage: No Substance Abuse Hx Substance Use: No Occupation Occupation (List type of work in comments):: Retired Functioning ADL/IADL Current Ability Current Ability: Independent: Self-Care (e.g.,grooming, dressing, & bathing), Independent: Ambulation, Independent: Transfer and Independent: Household tasks (e.g., light meal prep, laundry, shopping) Pt Functioning Prior to Problem Prior Functioning: Self-Care (e.g.,grooming, dressing, & bathing): Independent, Ambulation: Independent, Transfer: Independent and Household tasks (e.g., light meal prep, laundry, shopping): Independent Social Environment Status Marital Status: Current Living Arrangements Living Environment:: Spouse Safety Do you feel safe in your surroundings?: Yes Assistance Do you need any assistance at home?: no Review of Systems Review of Systems Review of Systems Respiratory: Reports Cough, SOB upon Exertion, Dizziness/Lightheadedness and Fatigue; Denies Hemoptysis, Pleuritic Pain, SOB at Rest, Sputum production, Wheezing, Appetite, Normal, PVD, Sexual changes or Sleep, Normal Pain Is Patient Pain Free?: Yes Risk Factor Assessment Chief Complaint Chief Complaint: 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, dyspnea Vital Signs Pulse Rate: 71 Pulse Ox: 98 Blood Pressure: 126/79 Obesity Height: 5 ft 2 in Weight:: 136 lb Weight in Pounds: 136.0 lbs Body Mass Index (BMI): 24.8 Nutritional Referral for Obesity: No Physical Activity Physical Inactivity: Reg Exercise 30 min/day (tries to go on walks.) Risk Stratification Risk Guidelines: Moderate Risk: Risk Factor for Smoking, Risk Factor for Dyslipidemia, Risk Factor for Diabetes, Risk Factor for Obesity, Risk Factor forHypertension, Risk Factor for Sedentary Lifestyle and Risk Factor for Depression For Smoking Smoking Risk Guidelines For Dyslipidemia Dyslipidemia Risk Guidelines For Diabetes Mellitus Diabetes Risk Guidelines For Obesity/Overweight Obesity/Overweight Risk Guidelines For Hypertension Hypertension Risk Guidelines For Sedentary Lifestyle Sedentary Lifestyle Risk Guidelines For Depression Depression Risk Guidelines Motivation Motivation to Participate On a scale of 1 to 10, how prepared are you to commit to attending program?: 10 What do you see as barriers to successfully being able to complete the program?:nothing What do you see as the benefits of succesfully completing the program? In other words, what do you hope to get out of participating in the program?: more energyless SOB Are there issues you are dealing with that will interfere with completing the program?: no Do you have a spouse or signficant other, family or friends who will help support you to complete the program?: yes Diagnostic Data Review 6 Minute Walk Test 6 Minute Walk Test: 1285 feet walked at 2.4 mph Pulmonary Function Test FEV1:: 118 FVC:: 109 FEV1/FVC%:: 108 01/12/25 1121 er BS, RVT> Date _ Renzo DE, RVT Outcome assessment reviewed. Exercise plan approved as documented. Treatment plan and goals support patient needs/abilities. Continue with current plan. I certify the patient demonstrates improvement and remains willing and capable of participation. the patient continues to benefit from pulmonary services/training. The patient may continue at currentintensity, endurance andmodality and progress per protocol. 01/15/25 1854 Cosigner Signature: Date Reno Ga MD CC: ~ Signed [facility]08-13-2025 NoteHNO ID: [id number] Author: JEREMY SCHAEFFER MD Service: ? Author Type: Physician Type: Progress Notes Filed: 01/10/2025 16:00 Note Text: 01/10/2025 LDN 1.5 mg caused strong abdominal pain. Tried 2 times (few days apart) but happened again. She wants to stop it. I asked her to try quarter tablet (0.4 mg) per day. If same issue happens, we can try NAC+L-carnitine.[facility] 01-10-2025 Telephone encounter Note* Telephone Encounter - Yu Mccormack RN - 01/10/2025 12:05 PM EDT Faxed polysomnogram order to Dr. Gibson per pt request. . Pt reports she has an appt with him on 01/22/25. [facility]08-13-2025 Miscellaneous Notes* Telephone Encounter - Yu Mccormack RN - 01/10/2025 12:05 PM EDT Faxed polysomnogram order to Dr. Gibson per pt request. . Pt reports she has an appt with him on 01/22/25. documented in [facility]Mar[facility] Telephone encounter Note * Telephone Encounter - Macho Baeza LPN - 01/01/2025 1:13 PM EDT Patient calling. At [facility] trying to get scheduled for Pulmonary Rehab. They are asking for documentation for Shortness of Breath. Please fax order whatever testing (had breathing tests done on 12/21) showed this to [facility] at [phone]. PFT results from 12/21 faxed to [facility] via Epic [facility]08-04-2025 Miscellaneous Notes* Telephone Encounter - Macho Baeza LPN - 01/01/2025 1:13 PM EDT Patient calling. At [facility] trying to get scheduled for Pulmonary Rehab. They are asking for documentation for Shortness of Breath. Please fax order whatever testing (had breathing tests done on 12/21) showed this to [facility] at [phone]. PFT results from 12/21 faxed to [facility] via Epic documented in this encounterMarion [facility]08-01-2025 Instructions* Patient Instructions* Ashley Lynn MD - 12/29/2024 10:38 AM EDT We discussed your post-COVID concerns: - Your breathing test and chest X-ray were normal, with no evidence of scarring, fluid, or significant lung issues. Your lungs appear healthy. - Your oxygen levels during the walk test remained within normal limits, though you reported some shortness of breath with exertion. Pacing yourself during activities is important to avoid overexertion. - I recommend starting pulmonary rehab at [facility] to help retrain your breathing and improve your endurance. I have provided a referral and a printed prescription for this program. 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 - Use your albuterol inhaler as needed for shortness of breath. A new prescription has been sent [facility] ([place]). We discussed your fatigue, insomnia, and brain fog: - These symptoms may be related to long COVID. I recommend starting low-dose naltrexone, which may help with fatigue and brain fog. This medication is being mailed to you. Please let me know how you feel after starting it. - Continue trying natural sleep aids, such as lavender oil, if they help. If your sleep issues persist, consider following up with a sleep specialist to evaluate for possible sleep apnea. We discussed your history of chronic sinusitis: - Continue using Flonase as prescribed. - You may use your portable nebulizer with sterile saline as needed, especially during the winter or when you feel congested. We discussed your nausea and morning fatigue: - Please bring up your nausea symptoms with your tile layer during your upcoming appointment. Follow-Up: - You have a heart ultrasound scheduled for January 12. This will help evaluate any potential post-COVID effects on your heart. - You are scheduled to see your shake splitter, Dr. Maria, at the [facility], and your primary care physician, Dr. Vieira, in January. Please discuss any ongoing concerns with them. - I would like to see you again in three months to review your progress with pulmonary rehab, naltrexone, and your overall symptoms. We can schedule this as a virtual visit for your convenience. Let us know if you need to adjust the appointment. Please reach out through [employer] if you have any questions or concerns before your next visit. documented in this encounterMar[facility]08-[facility]25 History of Present illness Narrative* Ashley Lynn MD - 12/29/2024 9:45 AM EDT Consultation requested by Dr. Vieira for an opinion regarding dyspnea and PASC 19 My final recommendations will be communicated back to the requesting physician by way of shared Medical record or letter to requesting physician via US mail. Tiffanie Ramsey is a 64 year old female who presents with complaint OF DYSPNEA and PASC 19 Recording using [employer] software for draft documentation of the visit was discussed with the patient/authorized accounts receivable representative; all questions welcomed and answered. Patient/authorized accounts receivable representative agreed to proceed HPI: Tiffanie Ramsey is a 64-year-old female, with a history of COVID-19 infection in February 2022, presenting with post-COVID concerns, including dyspnea, fatigue, and insomnia. Tiffanie reports significant changes in her health status following a COVID-19 infection in February 2022. Prior to the infection, she describes herself as very active, often referred to as the Energizer Bunny. However, since the infection, she has experienced persistent dyspnea, fatigue, and insomnia. She initially reviewed after the infection, but received COVID 19 booster in fall when bulkof her current symptoms started Tiffanie notes that she becomes winded after climbing 13 steps in her home, a task she previously performed multiple times a day without difficulty. She also reports that attempting to walk at her previous brisk pace nearly did her in. She describes a pattern of energy depletion, stating that [id number] each day, she feels as though her battery runs out of charge, necessitating rest. This f atigue has been present since her COVID-19 infection and has persisted for nearly two years. Tiffanie also reports significant sleep disturbances, with difficulty both falling and staying asleep. She estimates that she sleeps 5-6 hours per night, but not consecutively, often waking up multiple times. She has tried melatonin, which allowed her to sleep for 5 hours but then caused her to wake up abruptly. She denies a history of sleep apnea and has not been tested for it. She describes her current sleep issues as torture and notes that they have been ongoing for a long time, but have worsened since her COVID-19 infection. She also reports feeling nauseous in the morning, which she attributes to her lack of sleep. Tiffanie also reports a dry cough that occurs every time she lies down or turns over at night. Shedenies any history of asthma or family history of chronic lung conditions. She has a history of chronic sinusitis and has been using a portable nebulizer with sterile saline once a week to manage hersymptoms. She also uses Flonase daily. She denies any history of smoking, vaping, or tobacco use. Tiffanie has a history of tympanoplasty in right ear. Follows with ENT. She was prescribed naltrexone, which she hasn't started. Tiffanie is retired but describes herself as very busy, taking care of her , who is recovering from a massive open-heart operation and pacemaker insertion in February 2023. She also takes careof her 92-year-old mother, who has pre-Alzheimer's. She has no children of her own, but her husbandhas three grown children, one of whom has Sjogren's disease and lupus. She has a small dog at home. REVIEW OF SYSTEMS GENERAL: No unintentional weight loss, + extreme fatigue Fatigue HEENT: Negative for frequent or significant headaches, No changes in hearing or vision, no nose bleeds or other nasal problems RESPIRATORY: Negative for cough, wheezing + exertional shortness of breath. CARDIOVASCULAR: Negative for chest pain, leg swelling or palpitations. GASTROINTESTINAL: No nausea, vomiting, or diarrhea. No heartburn or reflux symptoms MUSCULOSKELETAL: Negative for joint pain or swelling NEUROLOGIC: Negative for focal numbness or weakness + brain fog All other systems were reviewed and Negative PAST MEDICAL HISTORY Diagnosis Date COVID : FAMILY HISTORY Problem Relation Age of Onset Hypothyroidism Mother Hyperlipidemia Mother GERD Mother Alzheimer's Disease Mother Pre stage-, 11/2024 other (stomach cancer) Father stomach Hypertension Father Hypertension Brother Hyperlipidemia Brother : Social History Tobacco Use Smoking status: Never Passive exposure: Past Smokeless tobacco: Never Substance Use Topics Alcohol use: Yes Comment: rare Drug use: Never Allergies: ALLERGIES Allergen Reactions Abby [Fexofenadi* Intolerance Hyperactivity Claritin [Loratadin* Intolerance Hyperactivity Lipitor [Atorvastat* GI Upset Sulfa (Sulfonamide * Rash Zyrtec [Cetirizine * Intolerance Drowsiness Current Medications: naltrexone (NALTREX) 1.5 mg cap Take 1 tablet (1.5 mg) per day for 3 days, then 2 tablets (3 mg) per day for 3 days, then 3 tablets (4.5 mg) per day until completing bottle. fluticasone (FLONASE) 50 mcg/actuation nasal spray Use 2 Sprays in each nostril once daily. ergocalciferol 50,000 unit capsule (VITAMIN D2, DRISDOL) Take 1 capsule by mouth one time a week. fluocinonide (LIDEX) 0.05 % external solution Apply to affected areas of hairloss on the scalp BID M-F (Patient not taking: Reported on 11/30/2024) amoxicillin-clavulanate potassium (AUGMENTIN) 875-125 mg per tablet Take 1 tablet by mouth every 12hours. (Patient not taking: Reported on 11/30/2024) methylPREDNISolone (MEDROL DOSE-PACK) 4 mg Dose-Pack take by mouth as directed on inside of package(Patient not taking: Reported on 11/30/2024) BP 126/79 Pulse 71 Wt 62 kg (136 lb 11 oz) SpO2 98% BMI 24.43 kg/m PHYSICAL EXAM General appearance: well appearing, alert, in no acute distress Skin: no suspicious rashes or lesions Nose/Sinuses: no drainage or sinus tenderness Oropharynx: oropharynx normal, no thrush Respiratory: lungs clear to auscultation. No wheezing, rhonchi, and rales unlabored on room air no chest deformities noted Cardiovascular: RRR S1 normal, S2 normal. Extremities: No deformities, edema, skin discoloration, clubbing or cyanosis. Musculoskeletal: No deformities Neuro: Speech normal, mental status intact Lab Results: CBC with diff: WBC 5.35 12/15/2024 RBC 5.23 12/15/2024 Hemoglobin 15.1 12/15/2024 Hematocrit 44.5 12/15/2024 MCV 85.1 12/15/2024 MCH 28.9 12/15/2024 MCHC 33.9 12/15/2024 RDW-CV 13.5 12/15/2024 Platelet Count 285 12/15/2024 MPV 9.3 12/15/2024 Neut% 62.0 12/15/2024 Lymph% 24.1 12/15/2024 Sargent% 8.2 12/15/2024 Eosin% 3.6 12/15/2024 Baso% 1.7 12/15/2024 Abs Neut (ANC) 3.32 12/15/2024 Abs Sargent 0.44 12/15/2024 Abs Eosin 0.19 12/15/2024 Abs Baso 0.09 12/15/2024 Glucose (mg/dL) Date Value 11/30/2024 91 Potassium (mmol/L) Date Value 11/30/2024 4.1 Sodium (mmol/L) Date Value 11/30/2024 141 Chloride (mmol/L) Date Value 11/30/2024 101 CO2 (mmol/L) Date Value 11/30/2024 25 Creatinine (mg/dL) Date Value 11/30/2024 0.73 BUN (mg/dL) Date Value 11/30/2024 12 Anion Gap (mmol/L) Date Value 11/30/2024 15 Calcium, Total (mg/dL) Date Value 11/30/2024 10.6 Protein, Total (g/dL) Date Value 11/30/2024 8.1 Albumin (g/dL) Date Value 11/30/2024 5.0 Bilirubin, Total (mg/dL) Date Value 11/30/2024 1.0 Alkaline Phosphatase (U/L) Date Value 11/30/2024 64 AST (U/L) Date Value 11/30/2024 31 ALT (U/L) Date Value 11/30/2024 36 SPIROMETRY - BASELINE AND POST DILATOR ([id number]) - ordered on 12/21/24 PRE-BRONCH POST-BRONCH Bianca LLN Pred ULN %Pred ZScore Bianca %Pred %Chg ZScore SPIROMETRY FVC 3.34 1.92 2.68 3.47 124 1.38 3.10 115 -8 0.88 FEV1 2.56 1.49 2.12 2.71 121 1.24 2.41 113 -7 0.80 FEV1/FVC 0.77 0.67 0.79 0.90 96 -0.40 0.78 97 1 -0.27 FEFMax 4.91 4.05 5.70 7.34 86 -0.79 4.62 81 -5 -1.07 FEF50 2.76 1.47 3.08 4.69 89 -0.33 3.21 104 16 0.14 FIF50 3.33 2.51 -24 FEF50/FIF50 0.83 90-100 1.28 54 FIVC 3.05 2.94 -3 OYA80-20 2.35 0.93 1.94 3.35 120 0.53 1.36 69 -42 -0.87 ExpiredTime 8.97 9.72 8 TimeToFEFMax 0.13 0.14 7 SHAHZAD 0.09 0.07 -18 VolExtrap% 3 2 -11 LUNG VOLUMES FRC(Pleth) 2.17 1.86 2.61 3.56 83 -0.92 ERV 0.51 0.89 57 RV(Pleth) 1.66 1.08 1.79 2.70 92 -0.27 SVC 3.08 1.92 2.68 3.47 114 0.84 IC 2.50 1.79 139 TLC(Pleth) 4.67 3.84 4.81 5.89 97 -0.22 RV/TLC(Pleth) 35 25 37 49 96 -0.19 LUNG DIFFUSION DLCOunc 17.16 14.11 18.62 24.15 92 -0.50 DLCOStdPB 16.88 14.11 18.62 24.15 90 -0.59 VA 4.38 3.54 4.40 5.36 99 -0.05 Kco 3.85 3.24 4.22 5.34 91 -0.59 IMPRESSION: Spirometry is normal. There is no significant bronchodilator response. The TLC, RV and RV/TLC are normal. The kCO (DLCO/VA) reflects a normal transfer/diffusion of CO from the alveolar regions to the blood. Clinical correlation recommended. Ashley Lynn MD RESPIRATORY THERAPY SIX MINUTE WALK TEST OXIMETRY REPORT The patient completed the six minute walk test with No stops. . The patient required Room Air to complete the test. The distance the patient walked in six minutes is within the predicted normal range. This is the first time patient takes the six minute walk test. The patient perceived their dyspnea during the six minute walk test to be 0- Nothing at all on the modified Jean Marie scale. The patient perceived their fatigue during the six minute walk test to be 0- Nothing at all on the modified Jean Marie scale. I have reviewed the findings and made appropriate revisions as neede Six Minute Walk Test for This Encounter Oxygen Device Liters FIO2 SpO2% HR Activity Feet Speed (MPH) R/A 98 100 Resting R/A 94 133 Six Minute Walk 1285 2.4 R/A 97 121 Recovery General Information Height Weight Pulse Oximetry Site Pre Blood Pressure Post Recovery Blood Pressure 159.3 cm (5' 2.72) 60.3 kg (133 lb) Forehead 133/81 136/71 _ Distance Walked (meters) Distance Walked (feet) Female Predicted Walk Distance (feet) Female Lower Limit of Normal (feet) Female % Predicted Total Duration Of The Stops (seconds) 391.67 1285 1586.29 1130.29 81 -- XR CHEST 2V FRONTAL/LAT Result Date: 11/30/2024 IMPRESSION: No acute radiographic abnormality. Pre K Teacher: SAUNDRA Transcribe Date/Time: Nov 30 2024 7:46P Dictated by : DALE GOODWIN MD This examination was interpreted and the report reviewedand electronically signed by: DALE GOODWIN MD on Nov 30 2024 7:46PM EST Assessment/Plan: Dyspnea and respiratory abnormalities (R06.00) Experiencing dyspnea on exertion, particularly when ascending stairs and during brisk walking. No significant desaturation noted during recent 6-minute walk test; SpO2 decreased from 98% to 94% afterwalking 1,280 feet. Pulmonary function tests show normal lung volumes and diffusion capacity with mixed response to bronchodilator. Chest X-ray reveals mild spinal curvature but otherwise healthy lung dumont. - Initiated albuterol inhaler as needed for symptomatic relief. - Referred to pulmonary rehabilitation at [facility]. 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 Symptoms exacerbated after COVID booster in February 2023. - Initiated low-dose naltrexone to address fatigue and cognitive symptoms. - Recommended initiation of pulmonary rehabilitation. Chronic sinusitis, unspecified location (J32.9) History of chronic sinusitis managed with Flonase and saline nebulizer. Recent improvement in symptoms; using nebulizer once a week. Under care of ENT specialist Dr. Todd Elizabeth. - Continue current management with Flonase and saline nebulizer as needed. - Follow-up with ENT as scheduled. Fatigue, unspecified type (R53.83) Chronic fatigue with significant energy depletion by early afternoon. Symptoms have persisted sinceCOVID-19 infection. - Initiated low-dose naltrexone to address fatigue. - Recommended pulmonary rehabilitation to improve overall endurance and energy levels. Agree with sleep testing, that she is scheduled to undergo in near future. - Scheduled follow-up in three months to assess progress, with the option for a virtual visit. -Ashley Lynn MD I spent a total of 46 minutes on the date of the service which included preparing to see the patient, [id number] patient care, completing clinical documentation, obtaining and/or reviewing separately obtained history, performing a medically appropriate examination, counseling and educating the pat ient/family/caregiver, ordering medications, tests, or procedures, communicating with other HCPs (not separately reported), independently interpreting results (not separately reported), communicatingresults to the patient/family/caregiver, and care coordination (not separately reported). documented in this encounterMarion [facility]08-01-[facility]25 NoteHNO ID: [id number] Author: ASHLEY LYNN MD Service: ? Author Type: Physician Type: Progress Notes Filed: 12/29/2024 12:16 Note Text: Consultation requested by Dr. Vieira for an opinion regarding dyspnea and PASC 19 My final recommendations will be communicated back to the requesting physician by way of shared Medical record or letter to requesting physician via US mail. Tiffanie Ramsey is a 64 year old female who presents with complaint OF DYSPNEA and PASC 19 Recording using [employer] software for draft documentation of the visit was discussed with the patient/authorized accounts receivable representative; all questions welcomed and answered. Patient/authorized accounts receivable representative agreed to proceed HPI: Tiffanie Ramsey is a 64-year-old female, with a history of COVID-19 infection in February 2022, presenting with post-COVID concerns, including dyspnea, fatigue, and insomnia. Tiffanie reports significant changes in her health status following a COVID-19 infection in February 2022. Prior to the infection, she describes herself as very active, often referred to as the Energizer Nikos. However, since the infection, she has experienced persistent dyspnea, fatigue, and insomnia. She initially reviewed after the infection, but received COVID 19 booster in fall when bulk of her current symptoms started Tiffanie notes that she becomes winded after climbing 13 steps in her home, a task she previously performed multiple times a day without difficulty. She also reports that attempting to walk at her previous brisk pace nearly did her in. She describes a pattern of energy depletion, stating that by [id number] each day, she feels as though her battery runs out of charge, necessitating rest. This fatigue has been present since her COVID-19 infection and has persisted for nearly two years. Tiffanie also reports significant sleep disturbances, with difficulty both falling and staying asleep. She estimates that she sleeps 5-6 hours per night, but not consecutively, often waking up multiple times. She has tried melatonin, which allowed her to sleep for 5 hours but then caused her to wake up abruptly. She denies a history of sleep apnea and has not been tested for it. She describes her current sleep issues as torture and notes that they have been ongoing for a long time, but have worsened since her COVID-19 infection. She also reports feeling nauseous in the morning, which she attributes to her lack of sleep. Tiffanie also reports a dry cough that occurs every time she lies down or turns over at night. She denies any history of asthma or family history of chronic lung conditions. She has a history of chronic sinusitis and has been using a portable nebulizer with sterile saline once a week to manage her symptoms. She also uses Flonase daily. She denies any history of smoking, vaping, or tobacco use. Tiffanie has a history of tympanoplasty in right ear. Follows with ENT. She was prescribed naltrexone, which she hasn't started. Tiffanie is retired but describes herself as very busy, taking care of her , who is recovering from a massive open-heart operation and pacemaker insertion in February 2023. She also takes care of her 92-year-old mother, who has pre-Alzheimer's. She has no children of her own, but her has three grown children, one of whom has Sjogren's disease and lupus. She has a small dog at home. REVIEW OF SYSTEMS GENERAL: No unintentional weight loss, + extreme fatigue Fatigue HEENT: Negative for frequent or significant headaches, No changes in hearing or vision, no nose bleeds or other nasal problems RESPIRATORY: Negative for cough, wheezing + exertional shortness of breath. CARDIOVASCULAR: Negative for chest pain, leg swelling or palpitations. GASTROINTESTINAL: No nausea, vomiting, or diarrhea. No heartburn or reflux symptoms MUSCULOSKELETAL: Negative for joint pain or swelling NEUROLOGIC: Negative for focal numbness or weakness + brain fog All other systems were reviewed and Negative PAST MEDICAL HISTORY Diagnosis Date COVID : FAMILY HISTORY Problem Relation Age of Onset Hypothyroidism Mother Hyperlipidemia Mother GERD Mother Alzheimer's Disease Mother Pre stage-92, 11/2024 other (stomach cancer) Father stomach Hypertension Father Hypertension Brother Hyperlipidemia Brother : Social History Tobacco Use Smoking status: Never Passive exposure: Past Smokeless tobacco: Never Substance Use Topics Alcohol use: Yes Comment: rare Drug use: Never Allergies: ALLERGIES Allergen Reactions Abby [Fexofenadi* Intolerance Hyperactivity Claritin [Loratadin* Intolerance Hyperactivity Lipitor [Atorvastat* GI Upset Sulfa (Sulfonamide * Rash Zyrtec [Cetirizine * Intolerance Drowsiness Current Medications: naltrexone (NALTREX) 1.5 mg cap Take 1 tablet (1.5 mg) per day for 3 days, then 2 tablets (3 mg) per day for 3 days, (more content not included)...[facility]07-31-2025 Instructions* Patient Instructions* Anna Tabor MD - 12/28/2024 11:58 AM EDT We discussed your concerns about brain fog, fatigue, and sleep difficulties: - Your cognitive testing results were normal, with no signs of Alzheimer's or other significant memory issues at this time. However, given your family history of dementia, we will monitor your cognitive health annually. I will reassess next year to ensure there are no changes. - I believe your lack of sleep is contributing to your fatigue and brain fog. I will refer you to apsychologist to provide strategies for managing psychophysiological insomnia and improving your sleep quality. - I recommend a sleep study to evaluate for possible sleep apnea, as this could also be affecting your energy levels and overall health. Please proceed with scheduling this as discussed. - Regular exercise is important for your overall health and energy levels. Aim for 30 minutes of daily exercise, such as walking at a comfortable pace. Adjust the intensity to avoid overexertion, as you mentioned feeling fatigued after more strenuous activity. We discussed your concerns about urinary frequency and incontinence: - You noted frequent urination and occasional stress incontinence. If this becomes more bothersome,we can revisit treatment options, including medications like Myrbetriq, which you previously tried but discontinued. Let me know if you would like to discuss this further. We discussed your overall health and stress management: - You are managing significant caregiving responsibilities for your and mother, which may be contributing to your fatigue and stress. Please continue to prioritize self-care, including takingbreaks and engaging in activities you enjoy when possible. - If you experience worsening symptoms or new concerns, please reach out to our office. Next steps: - Schedule the sleep study to evaluate for sleep apnea. - Follow up with the psychologist for sleep strategies and anxiety management. - Continue daily exercise at a manageable pace. - Monitor your symptoms, and we will reassess your cognitive health next year. Please let me know if you have any additional questions or concerns. [facility] NoteHNO ID: [id number] Author: ANNA TABOR MD Service: ? Author Type: Physician Type: Progress Notes Filed: 12/28/2024 14:59 Note Text: [facility] Initial Consult Tiffanie Ramsey is a 64 year old year old female who comes for Comprehensive Geriatric Assessment. Pt accompanied by: Caregivers involved in care: HPI: Tiffanie Ramsey is a 64-year-old female presenting with concerns of brain fog, fatigue, and insomnia, which she attributes to long COVID. Tiffanie reports experiencing brain fog, fatigue, and insomnia for approximately one year, which she believes are sequelae of long COVID. She contracted COVID-19 in 2022, and after an initial period of improvement, her symptoms worsened around January of the same year. She describes the brain fog as intermittent, with some days being worse than others, and notes episodes of disorientation while driving. She also reports significant fatigue, stating that she can no longer maintain her previous activity levels and feels exhausted by mid-afternoon. She has reduced the intensity of her walks and bike rides due to this fatigue. Tiffanie also reports difficulty sleeping, describing her mind as racing with thoughts when she tries to sleep. She denies feeling rested upon waking and sometimes feels the need to nap during the day. She denies knowledge of snoring or restless leg movements during sleep. She has not been tested for sleep apnea. She denies feelings of sadness, depression, or crying, but notes anxiety related to her insomnia. Tiffanie also reports a history of alopecia, which she attributes to long COVID. She has a family history of dementia, with her mother reportedly having pre-Alzheimer's disease. She denies smoking or alcohol use and limits her caffeine intake to two cups per day. She also reports frequent urination and a history of stress incontinence, for which she previously took Myrbetriq but discontinued due to potential side effects. Any Family History of dementia? Mother may have some dementia, still living appears to be amnestic dementia Are you or your spouse a ? yes Alzheimer Questionnaire Long-term Memory: Difficulty remembering distant events from the past like childhood, previous employment, wedding: YES Behavioral/personality: Withdrawn/Depressed: NO Crying spells: NO Anxious: yes History of aggression: NO History of irritability: NO Apathy:NO Recent changes in weight or appetite: NO Alcohol or Drug use: NO Smoking? NO Sleep: Do you snore loudly (louder than talking or loud enough to be heard through closed doors)? NO Do you often feel tired, fatigued, or sleepy during daytime? Yes some days Has anyone observed you stop breathing during your sleep? NO Are you restless when you sleep at night? NO Do you have problems falling a sleep? YES Do you have problems staying a sleep? YES Psychosis: Hallucinations or delusions: NO Suicidal or homicidal ideations: NO Obsessions, compulsions, or hoarding: NO Social History: Primary language: Japanese Marital Status: Living situation: Home w/ Spouse Socially engaged? (participates in activities such as clubs, evangelical, community center, sports, games, visiting friends/relatives, etc?): YES Caregiver Bowlus and Stress Are your feeling overwhelmed? YES Do you have concerns about your own health? NO Are you neglecting your own needs? NO Do you have financial concerns? NO Do your fear loss of employment? NO Do you have concerns about verbal/physical abuse? NO Do you feel that you are still capable of taking care of your relative? NO Are you willing to continue being in the caregiver role? NO B-ADLs: (I=independent,A=assistance,D=dependent) ?Bathing: I, Dressing: I, Toileting: I, Transferring:I, Continence: I, Feeding: I, I-ADLs: Ability to use phone: I, Shopping: I, Cooking: I, Housekeeping: I, Laundry: I, Transportation:I, Medications: {I, Handle Finances: I. PMHx: PAST MEDICAL HISTORY Diagnosis Date COVID PSHx: PAST SURGICAL HISTORY Procedure Laterality Date EAR SURGERY HX Right Home Meds: Prior to Admission medications : Medication fluticasone (FLONASE) 50 mcg/actuation nasal spray, Sig Use 2 Sprays in each nostril once daily., Start Date 09/12/20, End Date , Taking? Yes, Authorizing Provider Alli Hutchinson MD, PhD Medication naltrexone (NALTREX) 1.5 mg cap, Sig Take 1 tablet (1.5 mg) per day for 3 days, then 2 tablets (3 mg) per day for 3 days, then 3 tablets (4.5 mg) per day until completing bottle. Patient not taking: Reported on 12/28/2024, Start Date 12/20/24, End Date , Taking? , Authorizing Provider Jeremy Schaeffer MD Medication ergocalciferol 50,000 unit capsule (VITAMIN D2, DRISDOL), Sig Take 1 capsule by mouth one time a week., Start Date 09/27/24, End Date , Taking? , Authorizing Provider Priscilla Louis (more content not included)...[facility]07-31-2025 History of Present illness Narrative* Anna Tabor MD - 12/28/2024 11:32 AM EDT [facility] Initial Consult Tiffanie Ramsey is a 64 year old year old female who comes for Comprehensive Geriatric Assessment. Pt accompanied by: Caregivers involved in care: HPI: Tiffanie Ramsey is a 64-year-old female presenting with concerns of brain fog, fatigue, and insomnia, which she attributes to long COVID. Tiffanie reports experiencing brain fog, fatigue, and insomnia for approximately one year, which she believes are sequelae of long COVID. She contracted COVID-19 in 2022, and after an initial periodof improvement, her symptoms worsened around January of the same year. She describes the brain fog as intermittent, with some days being worse than others, and notes episodes of disorientation while driving. She also reports significant fatigue, stating that she can no longer maintain her previous activity levels and feels exhausted by mid-afternoon. She has reduced the intensity of her walks and bike rides due to this fatigue. Tiffanie also reports difficulty sleeping, describing her mind as racing with thoughts when she tries to sleep. She denies feeling rested upon waking and sometimes feels the need to nap during theday. She denies knowledge of snoring or restless leg movements during sleep. She has not been tested for sleep apnea. She denies feelings of sadness, depression, or crying, but notes anxiety related to her insomnia. Tiffanie also reports a history of alopecia, which she attributes to long COVID. She has a family history of dementia, with her mother reportedly having pre-Alzheimer's disease. She denies smoking or alcohol use and limits her caffeine intake to two cups per day. She also reports frequent urination and a history of stress incontinence, for which she previously took Myrbetriq but discontinued dueto potential side effects. Any Family History of dementia? Mother may have some dementia, still living appears to be amnestic dementia Are you or your spouse a ? yes Alzheimer Questionnaire Long-term Memory: Difficulty remembering distant events from the past like childhood, previous employment, wedding: YES Behavioral/personality: Withdrawn/Depressed: NO Crying spells: NO Anxious: yes History of aggression: NO History of irritability: NO Apathy:NO Recent changes in weight or appetite: NO Alcohol or Drug use: NO Smoking? NO Sleep: Do you snore loudly (louder than talking or loud enough to be heard through closed doors)? NO Do you often feel tired, fatigued, or sleepy during daytime? Yes some days Has anyone observed you stop breathing during your sleep? NO Are you restless when you sleep at night? NO Do you have problems falling a sleep? YES Do you have problems staying a sleep? YES Psychosis: Hallucinations or delusions: NO Suicidal or homicidal ideations: NO Obsessions, compulsions, or hoarding: NO Social History: Primary language: Japanese Marital Status: Living situation: Home w/ Spouse Socially engaged? (participates in activities such as clubs, evangelical, community center, sports, games, visiting friends/relatives, etc?): YES Caregiver Bowlus and Stress Are your feeling overwhelmed? YES Do you have concerns about your own health? NO Are you neglecting your own needs? NO Do you have financial concerns? NO Do your fear loss of employment? NO Do you have concerns about verbal/physical abuse? NO Do you feel that you are still capable of taking care of your relative? NO Are you willing to continue being in the caregiver role? NO B-ADLs: (I=independent,A=assistance,D=dependent) ?Bathing: I, Dressing: I, Toileting: I, Transferring:I, Continence: I, Feeding: I, I-ADLs: Ability to use phone: I, Shopping: I, Cooking: I, Housekeeping: I, Laundry: I, Transportation:I, Medications: {I, Handle Finances: I. PMHx: PAST MEDICAL HISTORY Diagnosis Date COVID PSHx: PAST SURGICAL HISTORY Procedure Laterality Date EAR SURGERY HX Right Home Meds: Prior to Admission medications : Medication fluticasone (FLONASE) 50 mcg/actuation nasal spray, Sig Use 2 Sprays in each nostril once daily., Start Date 09/12/20, End Date , Taking? Yes, Authorizing Provider Alli Hutchinson MD, PhD Medication naltrexone (NALTREX) 1.5 mg cap, Sig Take 1 tablet (1.5 mg) per day for 3 days, then 2 tablets (3 mg) per day for 3 days, then 3 tablets (4.5 mg) per day until completing bottle. Patient not taking: Reported on 12/28/2024, Start Date 12/20/24, End Date , Taking? , Authorizing Provider Jeremy Schaeffer MD Medication ergocalciferol 50,000 unit capsule (VITAMIN D2, DRISDOL), Sig Take 1 capsule by mouth one time a week., Start Date 09/27/24, End Date , Taking? , Authorizing Provider Ozzie Louis MD Medication fluocinonide (LIDEX) 0.05 % external solution, Sig Apply to affected areas of hairloss on the scalp BID M-F Patient not taking: Reported on 11/30/2024, Start Date 09/08/24, End Date 09/08/25, Taking? , Authorizing Provider Ozzie Louis MD Medication amoxicillin-clavulanate potassium (AUGMENTIN) 875-125 mg per tablet, Sig Take 1 tablet by mouth every 12 hours. Patient not taking: Reported on 11/30/2024, Start Date 06/29/24, End Date , Taking? , Authorizing Provider Provider Cc Medication methylPREDNISolone (MEDROL DOSE-PACK) 4 mg Dose-Pack, Sig take by mouth as directed on inside of package Patient not taking: Reported on 11/30/2024, Start Date 06/29/24, End Date , Taking? , Authorizing Provider Provider, Cc Other OTC med/supplements: None Medication Review: - ANY HIGH RISK MEDICATIONS (STOPP CRITERIA): NO ALLERGIES Allergen Reactions Abby [Fexofenadi* Intolerance Hyperactivity Claritin [Loratadin* Intolerance Hyperactivity Lipitor [Atorvastat* GI Upset Sulfa (Sulfonamide * Rash Zyrtec [Cetirizine * Intolerance Drowsiness Review of Systems Difficulty chew/swallow: no Pain: no Tremor: no Incontinence - During the last 3 months did you leak urine? yes - Type?: mixed incontinence Constipation/Change in bowel habits: NO Vision Positive for vision impairment and wears glasses Follows with bag hanger:YES Hearing - Hearing aid : Denies any problems Falls: .: Falls in the last 12 months: None. If + falls: Physical Exam: General: Well-nourished, kempt Ambulatory: without assistance Mobility Aid: None Head: Normocephalic Eyes: conjunctiva/corneas normal, EOMI Cardio: regular rate and rhythm Pulmonary: Lungs clear to auscultation bilaterally Extremities: Extremities normal. No deformities, edema, or skin discoloration. Musculoskeletal: Normal Gait Neuro:Deep Tendon reflexes :2/4 , Both Cranial nerves Extremities: Extremities normal. No deformities, edema, or skin discoloration. Musculoskeletal: No rigidity, tremor or bradykinesia is noted. Rhomberg: Negative. Neuro:Deep Tendon reflexes :2/4 , Both A tandem gait testing was normal. Was not able to stand on either leg for 10 seconds without any issues. Gait: Unsteadiness: NO Shuffling: NO Tremors: NO Slowness: NO Nima Cognitive Exam (MOCA): CDR Dementia Scale 1) Subjective Memory Loss: YES 2) Measurable Memory Loss: NO 3) IADLs: NO 4) BADLs: NO Driving Safely: No < 50% 6) Medications: No Depression Screening/Evaluation: GDS: 06/14 Assessment and Plan: 1. Brain fog (R41.89) Post covid-19 condition, unspecified (U09.9) Experiencing cognitive difficulties, including occasional disorientation while driving and variableseverity of symptoms. Symptoms began after a COVID-19 infection in 2022 and have persisted for approximately a year. No family history of dementia, but mother has pre-Alzheimer's. Recent cognitive testing shows no signs of Alzheimer's or frontotemporal dementia; scored 28/30 on the MoCA test. Her symptoms could be explained by the lack of restful sleep from insmonia and likely sleep apnea. - Monitor cognitive function; repeat cognitive assessment next year to evaluate for any progression. - Recommended daily exercise for 30 minutes to improve overall health and cognitive function. 2. Psychophysiological insomnia (F51.04) Experiencing difficulty initiating and maintaining sleep, with frequent nocturnal awakenings and daytime fatigue. Reports anxiety and racing thoughts at bedtime, contributing to sleep disturbances. No known history of snoring or restless leg movements during sleep. - Ordered sleep study to evaluate for obstructive sleep apnea. - Consulted psychology for cognitive behavioral therapy for insomnia (CBT-I) to address anxiety andimprove sleep hygiene. - Will consider pharmacological intervention for anxiety if non-pharmacological measures are insufficient. 3. Primary obstructive sleep apnea of (P28.32) - Patients symptoms could be explained by sleep apnea. Will test and address as needed. REFERRALS AND RECOMMENDATIONS 1. Discussed the cognitive benefits of memory exercises and reviewed examples 2. Discussed the cognitive benefits of physical exercise and socialization Voice recognition software was used to compose this office note. Please excuse any unintended typographical errors. Anna Tabor MD [facility] Evaluation note* Diagnosis Onset Date Resolution Status Admit Date Atrophic vaginitis acute November 292024 8:55am Encounter for routine gynecological examination noneactive November 292024 8:55am [facility] Work Phone: 1(951) 689-260007-29-2025 Evaluation note* Diagnosis Onset Date Resolution Status Admit Date Atrophic vaginitis acute November 292024 8:55am Encounter for routine gynecological examination noneactive November 292024 8:55am Abdominal pain acute February 5:26am Gas bloat syndrome acute Oct r 2024 5:26am [facility] Work Phone: 1(357) 883-909207-29-2025 Evaluation note* Diagnosis Onset Date Resolution Status Admit Date Atrophic vaginitis acute November 292024 8:55am Encounter for routine gynecological examination noneactive November 292024 8:55am Abdominal pain acute February 5:26am Gas bloat syndrome acute Octobe r 2024 5:26am Acute vaginitis acute February 282024 12:37pm Atrophic vaginitis acute Octobe r 2024 12:37pm Overactive bladder acute Octobe r 2024 12:37pm Urge incontinence acute March 13, 2025 12:37pm Urinary tract infection acute O ctober 2024 12:37pm [facility] Work Phone: 1(227) 316-671007-24-2025 NoteHNO ID: [id number] Author: GAIL PANG RPFT Service: ? Author Type: Respiratory Therapist Type: Procedures Filed: 12/21/2024 11:20 Note Text: Attestation signed by Piero Gonzalez MD at 12/21/2024 11:46 AM The patient completed the six minute walk test with No stops. . The patient required Room Air to complete the test. The distance the patient walked in six minutes is within the predicted normal range. This is the first time patient takes the six minute walk test. The patient perceived their dyspnea during the six minute walk test to be 0-Nothing at all on the modified Jean Marie scale. The patient perceived their fatigue during the six minute walk test to be 0-Nothing at all on the modified Jean Marie scale. I have reviewed the findings and made appropriate revisions as needed. SIGNATURE: Piero Gonzalez MD PATIENT NAME: Tiffanie Ramsey DATE: December 21, 2024 TIME: 11:46 AM RESPIRATORY THERAPY SIX MINUTE WALK TEST OXIMETRY REPORT Six Minute Walk Test for This Encounter Oxygen Device Liters FIO2 SpO2% HR Activity Feet Speed (MPH) R/A 98 100 Resting R/A 94 133 Six Minute Walk 1285 2.4 R/A 97 121 Recovery General Information Height Weight Pulse Oximetry Site Pre Blood Pressure Post Recovery Blood Pressure 159.3 cm (5' 2.72) 60.3 kg (133 lb) Forehead 133/81 136/71 _ Distance Walked (meters) Distance Walked (feet) Female Predicted Walk Distance (feet) Female Lower Limit of Normal (feet) Female % Predicted Total Duration Of The Stops (seconds) 391.67 1285 1586.29 1130.29 81 -- _ Lowest SpO2 During 6 Minute Walk Pre-Jean Marie Dyspnea Rating Pre-Jean Marie Fatigue Rating Post Jean Marie Dyspnea Rating Post Jean Marie Fatigue Rating Walking Assistance/O2 Supply Carrier 93 % 0 0 0 0 None Six Minute Walk Trend (Previous Encounters) None SIGNATURE: AMERICO Ortega PATIENT NAME: Tiffanie Ramsey DATE: December 21, 2024 TIME: 11:20 [facility]07-24-2025 Procedure note* Gail Pang RPFT - 12/21/2024 11:20 AM EDTAssociated Order(s): SIX MINUTE WALK RESPIRATORY THERAPY SIX MINUTE WALK TEST OXIMETRY REPORT Six Minute Walk Test for This Encounter Oxygen Device Liters FIO2 SpO2% HR Activity Feet Speed (MPH) R/A 98 100 Resting R/A 94 133 Six Minute Walk 1285 2.4 R/A 97 121 Recovery General Information Height Weight Pulse Oximetry Site Pre Blood Pressure Post Recovery Blood Pressure 159.3 cm (5' 2.72) 60.3 kg (133 lb) Forehead 133/81 136/71 _ Distance Walked (meters) Distance Walked (feet) Female Predicted Walk Distance (feet) Female Lower Limit of Normal (feet) Female % Predicted Total Duration Of The Stops (seconds) 391.67 1285 1586.29 1130.29 81 -- _ Lowest SpO2 During 6 Minute Walk Pre-Jean Marie Dyspnea Rating Pre-Jean Marie Fatigue Rating Post Jean Marie Dyspnea Rating Post Jean Marie Fatigue Rating Walking Assistance/O2 Supply Carrier 93 % 0 0 0 0 None Six Minute Walk Trend (Previous Encounters) None SIGNATURE: AMERICO Ortega PATIENT NAME: Tiffanie Ramsey DATE: December 21, 2024 TIME: 11:20 AM Cosigned by Piero Gonzalez MD at 12/21/2024 11:46 AM EDT Associated attestation - Piero Gonzalez MD - 12/21/2024 11:46 AM EDT The patient completed the six minute walk test with No stops. . The patient required Room Air to complete the test. The distance the patient walked in six minutes is within the predicted normal range. This is the first time patient takes the six minute walk test. The patient perceived their dyspnea during the six minute walk test to be 0- Nothing at all on the modified Jean Marie scale. The patient perceived their fatigue during the six minute walk test to be 0- Nothing at all on the modified Jean Marie scale. I have reviewed the findings and made appropriate revisions as needed. SIGNATURE: Piero Gonzalez MD PATIENT NAME: Tiffanie Ramsey DATE: December 21, 2024 TIME: 11:46 AM [facility]07-24-2025 Procedure note* Gail Pang RPFT - 12/21/2024 11:20 AM EDTAssociated Order(s): SIX MINUTE WALK RESPIRATORY THERAPY SIX MINUTE WALK TEST OXIMETRY REPORT Six Minute Walk Test for This Encounter Oxygen Device Liters FIO2 SpO2% HR Activity Feet Speed (MPH) R/A 98 100 Resting R/A 94 133 Six Minute Walk 1285 2.4 R/A 97 121 Recovery General Information Height Weight Pulse Oximetry Site Pre Blood Pressure Post Recovery Blood Pressure 159.3 cm (5' 2.72) 60.3 kg (133 lb) Forehead 133/81 136/71 _ Distance Walked (meters) Distance Walked (feet) Female Predicted Walk Distance (feet) Female Lower Limit of Normal (feet) Female % Predicted Total Duration Of The Stops (seconds) 391.67 1285 1586.29 1130.29 81 -- _ Lowest SpO2 During 6 Minute Walk Pre-Jean Marie Dyspnea Rating Pre-Jean Marie Fatigue Rating Post Jean Marie Dyspnea Rating Post Jean Marie Fatigue Rating Walking Assistance/O2 Supply Carrier 93 % 0 0 0 0 None Six Minute Walk Trend (Previous Encounters) None SIGNATURE: AMERICO Ortega PATIENT NAME: Tiffanie Ramsey DATE: December 21, 2024 TIME: 11:20 AM Cosigned by Piero Gonzalez MD at 12/21/2024 11:46 AM EDT Associated attestation - Piero Gonzalez MD - 12/21/2024 11:46 AM EDT The patient completed the six minute walk test with No stops. . The patient required Room Air to complete the test. The distance the patient walked in six minutes is within the predicted normal range. This is the first time patient takes the six minute walk test. The patient perceived their dyspnea during the six minute walk test to be 0- Nothing at all on the modified Jean Marie scale. The patient perceived their fatigue during the six minute walk test to be 0- Nothing at all on the modified Jean Marie scale. I have reviewed the findings and made appropriate revisions as needed. SIGNATURE: Piero Gonzalez MD PATIENT NAME: Tiffanie Ramsey DATE: December 21, 2024 TIME: 11:46 AM [facility] Telephone encounter Note * Telephone Encounter - Hollie Abreu MA - 12/20/2024 9:48 AM EDT Results from Provider have been read by patient on 12/19/24 at 5:21 pm. Hollie Abreu MA [facility]07-23-2025 Miscellaneous Notes* Telephone Encounter - Hollie Abreu MA - 12/20/2024 9:48 AM EDT Results from Provider have been read by patient on 12/19/24 at 5:21 pm. Hollie Abreu MA * Result Encounter Note - Maddie Martínez APRN.CNP - 12/19/2024 9:42 AM EDT Ionized calcium 1/100s of over normal. Will continue to monitor. Red blood count improving. Parathyroid normal. Vitamin D normal. documented in this encounterMar[facility]07-23-[facility]25 History of Present illness Narrative* Jeremy Schaeffer MD - 12/20/2024 9:00 AM EDT Images from the original note were not included. Consultation requested by Dr. Taqueria Vieira for an opinion regarding Long COVID. My final recommendations will be communicated back to the requesting physician by way of shared Medical record or letter to requesting physician via [place] mail. 64 year old female virtual visit for an Integrative Medicine consultation (Dept of Wellness & Preventive Medicine, [facility]) I have communicated my name and active licensure. The patient's identity and physical location wereverified at the time of this visit. Either the patient or their legal accounts receivable representative has been informed of the risks and benefits of -- and alternatives to -- treatment through a remote evaluation andconsents to proceed with the evaluation remotely. ASSESSMENT / PLAN: Chronic fatigue syndrome Brain fog Joint pain Post acute sequelae of COVID-19 She received 2nd COVID shot then 1 week later, coincidentally she had COVID infection for the firsttime. Since then, she has lingering sx. Managing systemic inflammation is important. Will start LDN therapy Naltrexone 1.5 mg daily for 3 days Then 3 mg for 3 days Then 4.5 mg for 3 months or longer Lifestyle - she does exercise regularly and eat general healthy foods everyday Follow up in 1 month HISTORY OF PRESENT ILLNESS: Chief complaint -- Long COVID COVID infection in Feb 2023 Started to have new but lingering sx - fatigue, brain fog, multiple joint pain 1 week before infection, she had 2nd COVID vaccine There was no issue with 1st COVID vaccine Around September 2023, she received shingle vaccine [place] very ill for 3 days but these got better But still has lingering sx Lifestyle - doing exercise on regular basis and eats general healthy diet Patient-Entered Questionnaires 09/30/2023 12/14/2024 [facility] Physical Function PROMIS Physical Function T-Score 40 (mild dysfunction) 42 (mild dysfunction) 12/14/2024 [facility] Pain Interference PROMIS Pain Interference T-Score (range: 10 - 90) 52 (within normal limits) 05/19/2023 12/14/2024 [facility] Fatigue PROMIS Fatigue T-Score 63 (moderate) 62 (moderate) 12/14/2024 [facility] Satisfaction with Social Roles PROMIS - Satisfaction with Participation in Social Roles T-Score 40 (Low) 12/14/2024 [facility] Anxiety PROMIS Anxiety T-Score 37 (within normal limits) 05/19/2023 12/14/2024 [facility] Sleep Disturbance PROMIS Sleep Disturbance T-Score 62 (moderate) 54 (within normal limits) 12/14/2024 05/19/2023 PROM[facility] NEUROQOL COGNITIVE T-SCORE PROMIS Neuroqol Cognitive T-Score 50 (within normal limits) 37 (moderate dysfunction) REVIEW OF SYSTEMS See flow sheet for details GENERAL: + fatigue. No fever. No weight loss. HEENT: No headache, No Nasal congestion NECK: No neck pain RESPIRATORY: No cough or SOB. CARDIOVASCULAR: No CP, palpitations, or skipped heart beat. GI: no N/V. + Constipation, bloating, heartburn. + gassiness or pain. : No pain or frequency. MUSCULOSKELETAL: + Joint pain. + muscle aches and pain, arthritis, stiffness, or weakness. SKIN: No rash or hives. No hair loss. PSYCH: + anxiety, + depression. NEURO: No dizziness. PHYSICAL EXAMINATION (virtual) General Pleasant and in no acute distress, Well appearing, Alert, Well dressed and groomed HEENT Head normocephalic Chest and Lungs Symmetrical chest rise, Unlabored breathing, Speaking in full sentences, Neuro Normal in appearance Alert and oriented x 3, Normal gait, Normal speech Psych Normal motor behavior, Good eye contact, Attentive, Normal thought processes, Follows commands appropriately PAST MEDICAL HISTORY Diagnosis Date COVID PAST SURGICAL HISTORY Procedure Laterality Date EAR SURGERY HX Right ALLERGIES Allergen Reactions Abby [Fexofenadi* Intolerance Hyperactivity Claritin [Loratadin* Intolerance Hyperactivity Lipitor [Atorvastat* GI Upset Sulfa (Sulfonamide * Rash Zyrtec [Cetirizine * Intolerance Drowsiness Current Outpatient Medications on File Prior to Visit Medication Sig ergocalciferol 50,000 unit capsule (VITAMIN D2, DRISDOL) Take 1 capsule by mouth one time a week. fluocinonide (LIDEX) 0.05 % external solution Apply to affected areas of hairloss on the scalp BID M-F (Patient not taking: Reported on 11/30/2024) amoxicillin-clavulanate potassium (AUGMENTIN) 875-125 mg per tablet Take 1 tablet by mouth every 12hours. (Patient not taking: Reported on 11/30/2024) methylPREDNISolone (MEDROL DOSE-PACK) 4 mg Dose-Pack take by mouth as directed on inside of package(Patient not taking: Reported on 11/30/2024) fluticasone (FLONASE) 50 mcg/actuation nasal spray Use 2 Sprays in each nostril once daily. No current facility-administered medications on file prior to visit. FAMILY HISTORY Problem Relation Age of Onset Hypothyroidism Mother Hyperlipidemia Mother GERD Mother other (stomach cancer) Father stomach Hypertension Brother Hyperlipidemia Brother (Assessment and Plan are described above) I spent a total of 60 minutes on the date of the service which included preparing to see the patient, [id number] patient care, completing clinical documentation, obtaining and/or reviewing separately obtained history, performing a medically appropriate examination, counseling and educating the pat ient/family/caregiver, and ordering medications, tests, or procedures. Jeremy Schaeffer MD 12/20/2024 documented in this encounterMar[facility]07-23-2025 NoteHNO ID: [id number] Author: JEREMY SCHAEFFER MD Service: ? Author Type: Physician Type: Progress Notes Filed: 12/20/2024 09:45 Note Text: Consultation requested by Dr. Taqueria Vieira for an opinion regarding Long COVID. My final recommendations will be communicated back to the requesting physician by way of shared Medical record or letter to requesting physician via [place] mail. 64 year old female virtual visit for an Integrative Medicine consultation (Dept of Wellness AND Preventive Medicine, [facility]) I have communicated my name and active licensure. The patient's identity and physical location were verified at the time of this visit. Either the patient or their legal accounts receivable representative has been informed of the risks and benefits of -- and alternatives to -- treatment through a remote evaluation and consents to proceed with the evaluation remotely. ASSESSMENT / PLAN: Chronic fatigue syndrome Brain fog Joint pain Post acute sequelae of COVID-19 She received 2nd COVID shot then 1 week later, coincidentally she had COVID infection for the first time. Since then, she has lingering sx. Managing systemic inflammation is important. Will start LDN therapy Naltrexone 1.5 mg daily for 3 days Then 3 mg for 3 days Then 4.5 mg for 3 months or longer Lifestyle - she does exercise regularly and eat general healthy foods everyday Follow up in 1 month HISTORY OF PRESENT ILLNESS: Chief complaint -- Long COVID COVID infection in Feb 2023 Started to have new but lingering sx - fatigue, brain fog, multiple joint pain 1 week before infection, she had 2nd COVID vaccine There was no issue with 1st COVID vaccine Around September 2023, she received shingle vaccine [place] very ill for 3 days but these got better But still has lingering sx Lifestyle - doing exercise on regular basis and eats general healthy diet Patient-Entered Questionnaires 09/30/2023 12/14/2024 [facility] Physical Function PROMIS Physical Function T-Score 40 (mild dysfunction) 42 (mild dysfunction) 12/14/2024 [facility] Pain Interference PROMIS Pain Interference T-Score (range: 10 - 90) 52 (within normal limits) 05/19/2023 12/14/2024 [facility] Fatigue PROMIS Fatigue T-Score 63 (moderate) 62 (moderate) 12/14/2024 [facility] Satisfaction with Social Roles PROMIS - Satisfaction with Participation in Social Roles T-Score 40 (Low) 12/14/2024 [facility] Anxiety PROMIS Anxiety T-Score 37 (within normal limits) 05/19/2023 12/14/2024 [facility] Sleep Disturbance PROMIS Sleep Disturbance T-Score 62 (moderate) 54 (within normal limits) 12/14/2024 05/19/2023 PROMIS NEUROQOL COGNITIVE T-SCORE PROMIS Neuroqol Cognitive T-Score 50 (within normal limits) 37 (moderate dysfunction) REVIEW OF SYSTEMS See flow sheet for details GENERAL: + fatigue. No fever. No weight loss. HEENT: No headache, No Nasal congestion NECK: No neck pain RESPIRATORY: No cough or SOB. CARDIOVASCULAR: No CP, palpitations, or skipped heart beat. GI: no N/V. + Constipation, bloating, heartburn. + gassiness or pain. : No pain or frequency. MUSCULOSKELETAL: + Joint pain. + muscle aches and pain, arthritis, stiffness, or weakness. SKIN: No rash or hives. No hair loss. PSYCH: + anxiety, + depression. NEURO: No dizziness. PHYSICAL EXAMINATION (virtual) General Pleasant and in no acute distress, Well appearing, Alert, Well dressed and groomed HEENT Head normocephalic Chest and Lungs Symmetrical chest rise, Unlabored breathing, Speaking in full sentences, Neuro Normal in appearance Alert and oriented x 3, Normal gait, Normal speech Psych Normal motor behavior, Good eye contact, Attentive, Normal thought processes, Follows commands appropriately PAST MEDICAL HISTORY Diagnosis Date COVID PAST SURGICAL HISTORY Procedure Laterality Date EAR SURGERY HX Right ALLERGIES Allergen Reactions Abby [Fexofenadi* Intolerance Hyperactivity Claritin [Loratadin* Intolerance Hyperactivity Lipitor [Atorvastat* GI Upset Sulfa (Sulfonamide * Rash Zyrtec [Cetirizine * Intolerance Drowsiness Current Outpatient Medications on File Prior to Visit Medication Sig ergocalciferol 50,000 unit capsule (VITAMIN D2, DRISDOL) Take 1 capsule by mouth one time a week. fluocinonide (LIDEX) 0.05 % external solution Apply to affected areas of hairloss on the scalp BID M-F (Patient not taking: Reported on 11/30/2024) amoxicillin-clavulanate potassium (AUGMENTIN) 875-125 mg per tablet Take 1 tablet by mouth every 12 hours. (Patient not taking: Reported on 11/30/2024) methylPREDNISolone (MEDROL DOSE-PACK) 4 mg Dose-Pack take by mouth as directed on inside of package (Patient not taking: Reported on 11/30/2024) fluticasone (FLONASE) 50 mcg/actuation nasal spray Use 2 Sprays in each nostril once daily. No current facility-administered medications on file prior to visit. FAMILY HISTORY Problem Relation Age of Onset Hypothyro (more content not included)...[facility]07-22-2025 Progress note* Result Encounter Note - Maddie Martínez APRN.CNP - 12/19/2024 9:42 AM EDT Ionized calcium 1/100s of over normal. Will continue to monitor. Red blood count improving. Parathyroid normal. Vitamin D normal. [facility] Work Phone: 1(149) 346-731907-07-2025 Telephone encounter Note* Telephone Encounter - Rosalind Bergeron RN - 12/04/2024 10:04 AM EDT Called patient. Reviewed below results and recommendations to drink more fluids and get labs drawn in 1-2 weeks, order in chart. Pt is agreeable. Rosalind Bergeron RN Per communication to nursing: Taqueria Vieira MD 12/04/2024 9:11 AM EDT Did not picker/puller her my chart note, see below. Also her bach test was good. No definite signs of significant cognitive impairment. Message to patient: Written by Taqueria Vieira MD on 12/01/2024 11:56 AM EDT Calcium is up. May be lab error. The red counts are mildly up as well. Can all be due to hydration.Push fluids and recheck labs in one to two weeks. We still have some other labs that can take up toa week or two to come back. Call or my chart us with any questions. Take Care, Dr Vieira [facility]07-07-2025 Miscellaneous Notes* Telephone Encounter - Rosalind Bergeron RN - 12/04/2024 10:04 AM EDT Called patient. Reviewed below results and recommendations to drink more fluids and get labs drawn in 1-2 weeks, order in chart. Pt is agreeable. Rosalind Bergeron RN Per communication to nursing: Taqueria Vieira MD 12/04/2024 9:11 AM EDT Did not picker/puller her my chart note, see below. Also her bach test was good. No definite signs of significant cognitive impairment. Message to patient: Written by Taqueria Vieira MD on 12/01/2024 11:56 AM EDT Calcium is up. May be lab error. The red counts are mildly up as well. Can all be due to hydration.Push fluids and recheck labs in one to two weeks. We still have some other labs that can take up toa week or two to come back. Call or my chart us with any questions. Take Care, Dr Vieira documented in this encounterMarion Hospital07-07-2025 Telephone encounter Note * Telephone Encounter - Taqueria Vieira MD - 12/04/2024 9:09 AM EDT Brief Assessment of Cognitive Health (BACH) Results: The patient endorsed mild depression symptoms on PHQ-8[1]. The patient endorsed a moderate level of stress. The patient reported getting about 6 hours of sleep per night, which falls into the may be appropriate category based on National Sleep Foundation Guidelines [2].They endorsed mild recent sleep problems. The patient s cognitive test performance was VALID. When invalid, probability of cognitive impairment score should be disregarded. Probability of cognitive impairment [3]: 27.06% Above 50% - Probable cognitive impairment; Specialty evaluation may be warranted 20-50% - Possible cognitive impairment; Address moderate to severe depression and sleep issues and retest Below 20% - Very low chance of cognitive impairment Moderate to severe levels of depression or stress may contribute to subjective cognitive complaintsin the absence of cognitive impairment [1] Abelino K, Yumiko TW, Lauren RL, Kai YAZAN, Joey BurnettT, Dee AH. The PHQ- 8 as a measure of current depression in the general population. J Affect Disord. 2009;114(1-3):163-173. doi: 10.1016/j.sigifredo.2008.06.026 [2] Josseline luis al. National Sleep Foundation's sleep time duration recommendations: methodologyand results summary. Sleep Health. 2015 Mar;1(1):40- 43. doi: 10.1016/j.sleh.2014.12.010. [3] Marge RM, Saw O, Deb AF, Lei DP. Automated detection of cognitive impairment in clinical practice. J Neurol. 2023 Miguel . doi: 10.1007/f72870-869-07110-9. Epub ahead of print. PMID: [id number]. [facility] Work Phone: 1(430) 776-559807-07-2025 Miscellaneous Notes* Telephone Encounter - Taqueria Vieira MD - 12/04/2024 9:09 AM EDT Brief Assessment of Cognitive Health (BACH) Results: The patient endorsed mild depression symptoms on PHQ-8[1]. The patient endorsed a moderate level of stress. The patient reported getting about 6 hours of sleep per night, which falls into the may be appropriate category based on National Sleep Foundation Guidelines [2].They endorsed mild recent sleep problems. The patient s cognitive test performance was VALID. When invalid, probability of cognitive impairment score should be disregarded. Probability of cognitive impairment [3]: 27.06% Above 50% - Probable cognitive impairment; Specialty evaluation may be warranted 20-50% - Possible cognitive impairment; Address moderate to severe depression and sleep issues and retest Below 20% - Very low chance of cognitive impairment Moderate to severe levels of depression or stress may contribute to subjective cognitive complaintsin the absence of cognitive impairment [1] Abelino Culp, Yumiko TW, Lauren RL, Kai YAZAN, Joey BurnettT, Dee PINEDA. The PHQ- 8 as a measure of current depression in the general population. J Affect Disord. 2009;114(1-3):163-173. doi: 10.1016/j.sigifredo.2008.06.026 [2] Josseline et al. National Sleep Foundation's sleep time duration recommendations: methodologyand results summary. Sleep Health. 2015 Jul;1(1):40- 43. doi: 10.1016/j.sleh.2014.12.010. [3] Marge RM, Saw O, Deb AF, Lei DP. Automated detection of cognitive impairment in clinical practice. J Neurol. 2023Nov 01. doi: 10.1007/p18285-820-64488-7. Epub ahead of print. PMID: [id number]. documented in this encounterMarion Hospital07-03-2025 NoteHNO ID: [id number] Author: TAQUERIA VIEIRA MD Service: ? Author Type: Physician Type: Progress Notes Filed: 11/30/2024 11:28 Note Text: Tiffanie Ramsey is a 64-year-old female presenting for evaluation of fatigue, dyspnea, brain fog, arthralgias, and gastrointestinal issues. Is a second Covid reCOVer Clinic visit. Previously had seen Aicha Contreras at first visit. See below for her visit details. HPI Fatigue: - Persistent fatigue since initial COVID-19 infection in February 2023. She feels in hindsight, her symptoms did not go away between covid infection adn vaccines. - Describes feeling like her battery will not stay charged. - Energy levels significantly decrease around 14:00 daily. - Denies ever returning to baseline energy levels post-infection. - Reports feeling lethargic and exhausted, with symptoms exacerbated by stress. - Nocturnal sleep disturbances; difficulty falling asleep due to racing thoughts. - Occasionally requires daytime naps due to overwhelming fatigue. - Denies snoring or observed apneic episodes during sleep. Dyspnea: - Mild dyspnea on exertion, particularly when climbing stairs. - Symptoms have worsened since COVID-19 infection. - Denies significant chest pain, palpitations, or syncope. Brain Fog: - Onset of cognitive difficulties [id number] infection. - Experiences intermittent episodes of brain fog, with occasional days of clarity. - Describes feeling like brain fog girl on bad days. Arthralgias: - New onset of joint pain in knees and shoulders since COVID-19 infection. - Reports worsening of symptoms over time. - Has received cortisone injection in the shoulder with temporary relief. Gastrointestinal Issues: - Onset of gastrointestinal discomfort [id number] infection. - Experiences abdominal cramps when taking certain supplements, including vitamin D. - Reports occasional episodes of IBS-like symptoms triggered by stress. - Denies chronic diarrhea, nausea, emesis, or heartburn. - Recent Cologuard test was negative. Glossitis: - Reports a burning sensation on the tongue starting in the afternoon daily. - Symptoms began after COVID-19 infection. - Denies issues with taste or smell. Alopecia: - Recent onset of alopecia. - Medical Records Assistant recommended returning to the clinic for further evaluation. COVID-19 History: - Initial COVID-19 infection in February 2023, with severe symptoms lasting five days. - Gradual improvement over six months, but never returned to baseline health. - Symptoms worsened after receiving a COVID-19 vaccine. - Denies ever taking Paxlovid. Vaccine Reactions: - Reports severe reactions to multiple vaccines, including shingles and COVID-19. - Describes episodes of emesis and severe illness post-vaccination. - Medical Records Assistant recommended returning to the clinic for further evaluation. Anxiety: - New onset of anxiety symptoms [id number] infection. - Describes feeling agitated and irritable after taking Wellbutrin, which was discontinued. - Experiences racing thoughts and difficulty falling asleep at night. MEDICATIONS: Current Outpatient Medications Medication Sig ergocalciferol 50,000 unit capsule (VITAMIN D2, DRISDOL) Take 1 capsule by mouth one time a week. fluticasone (FLONASE) 50 mcg/actuation nasal spray Use 2 Sprays in each nostril once daily. fluocinonide (LIDEX) 0.05 % external solution Apply to affected areas of hairloss on the scalp BID M-F (Patient not taking: Reported on 11/30/2024) amoxicillin-clavulanate potassium (AUGMENTIN) 875-125 mg per tablet Take 1 tablet by mouth every 12 hours. (Patient not taking: Reported on 11/30/2024) methylPREDNISolone (MEDROL DOSE-PACK) 4 mg Dose-Pack take by mouth as directed on inside of package (Patient not taking: Reported on 11/30/2024) No current facility-administered medications for this visit. ALLERGIES: ALLERGIES Allergen Reactions Abby [Fexofenadi* Intolerance Hyperactivity Claritin [Loratadin* Intolerance Hyperactivity Lipitor [Atorvastat* GI Upset Sulfa (Sulfonamide * Rash Zyrtec [Cetirizine * Intolerance Drowsiness PAST MEDICAL HISTORY Diagnosis Date COVID PAST SURGICAL HISTORY Procedure Laterality Date EAR SURGERY HX Right FAMILY HISTORY Problem Relation Age of Onset Hypothyroidism Mother Hyperlipidemia Mother GERD Mother other (stomach cancer) Father stomach Hypertension Brother Hyperlipidemia Brother Social History Tobacco Use Smoking status: Never Passive exposure: Past Smokeless tobacco: Never Substance Use Topics Alcohol use: Yes Comment: rare Drug use: Never Reviewed current medications, allergies, past medical history, surgical history, family history and social history today. REVIEW OF SYSTEMS Constitutional: (+) fatigue, (+) exhaustion Head: (+) headaches Ears/Nose/Mouth/Throat: (+) burning tongue, (-) loss of taste, (-) loss of smell Cardiovasc (more content not included)...[facility]07-03-2025 History of Present illness Narrative* Taqueria Vieira MD - 11/30/2024 11:23 AM EDT Tiffanie Ramsey is a 64-year-old female presenting for evaluation of fatigue, dyspnea, brain fog,arthralgias, and gastrointestinal issues. Is a second Covid reCOVer Clinic visit. Previously had seen Aicha Contreras at first visit. See below for her visit details. HPI Fatigue: - Persistent fatigue since initial COVID-19 infection in February 2023. She feels in hindsight, her symptoms did not go away between covid infection adn vaccines. - Describes feeling like her battery will not stay charged. - Energy levels significantly decrease around 14:00 daily. - Denies ever returning to baseline energy levels post-infection. - Reports feeling lethargic and exhausted, with symptoms exacerbated by stress. - Nocturnal sleep disturbances; difficulty falling asleep due to racing thoughts. - Occasionally requires daytime naps due to overwhelming fatigue. - Denies snoring or observed apneic episodes during sleep. Dyspnea: - Mild dyspnea on exertion, particularly when climbing stairs. - Symptoms have worsened since COVID-19 infection. - Denies significant chest pain, palpitations, or syncope. Brain Fog: - Onset of cognitive difficulties [id number] infection. - Experiences intermittent episodes of brain fog, with occasional days of clarity. - Describes feeling like brain fog girl on bad days. Arthralgias: - New onset of joint pain in knees and shoulders since COVID-19 infection. - Reports worsening of symptoms over time. - Has received cortisone injection in the shoulder with temporary relief. Gastrointestinal Issues: - Onset of gastrointestinal discomfort [id number] infection. - Experiences abdominal cramps when taking certain supplements, including vitamin D. - Reports occasional episodes of IBS-like symptoms triggered by stress. - Denies chronic diarrhea, nausea, emesis, or heartburn. - Recent Cologuard test was negative. Glossitis: - Reports a burning sensation on the tongue starting in the afternoon daily. - Symptoms began after COVID-19 infection. - Denies issues with taste or smell. Alopecia: - Recent onset of alopecia. - Medical Records Assistant recommended returning to the clinic for further evaluation. COVID-19 History: - Initial COVID-19 infection in February 2023, with severe symptoms lasting five days. - Gradual improvement over six months, but never returned to baseline health. - Symptoms worsened after receiving a COVID-19 vaccine. - Denies ever taking Paxlovid. Vaccine Reactions: - Reports severe reactions to multiple vaccines, including shingles and COVID-19. - Describes episodes of emesis and severe illness post-vaccination. - Medical Records Assistant recommended returning to the clinic for further evaluation. Anxiety: - New onset of anxiety symptoms [id number] infection. - Describes feeling agitated and irritable after taking Wellbutrin, which was discontinued. - Experiences racing thoughts and difficulty falling asleep at night. MEDICATIONS: Current Outpatient Medications Medication Sig ergocalciferol 50,000 unit capsule (VITAMIN D2, DRISDOL) Take 1 capsule by mouth one time a week. fluticasone (FLONASE) 50 mcg/actuation nasal spray Use 2 Sprays in each nostril once daily. fluocinonide (LIDEX) 0.05 % external solution Apply to affected areas of hairloss on the scalp BID M-F (Patient not taking: Reported on 11/30/2024) amoxicillin-clavulanate potassium (AUGMENTIN) 875-125 mg per tablet Take 1 tablet by mouth every 12hours. (Patient not taking: Reported on 11/30/2024) methylPREDNISolone (MEDROL DOSE-PACK) 4 mg Dose-Pack take by mouth as directed on inside of package(Patient not taking: Reported on 11/30/2024) No current facility-administered medications for this visit. ALLERGIES: ALLERGIES Allergen Reactions Abby [Fexofenadi* Intolerance Hyperactivity Claritin [Loratadin* Intolerance Hyperactivity Lipitor [Atorvastat* GI Upset Sulfa (Sulfonamide * Rash Zyrtec [Cetirizine * Intolerance Drowsiness PAST MEDICAL HISTORY Diagnosis Date COVID PAST SURGICAL HISTORY Procedure Laterality Date EAR SURGERY HX Right FAMILY HISTORY Problem Relation Age of Onset Hypothyroidism Mother Hyperlipidemia Mother GERD Mother other (stomach cancer) Father stomach Hypertension Brother Hyperlipidemia Brother Social History Tobacco Use Smoking status: Never Passive exposure: Past Smokeless tobacco: Never Substance Use Topics Alcohol use: Yes Comment: rare Drug use: Never Reviewed current medications, allergies, past medical history, surgical history, family history andsocial history today. REVIEW OF SYSTEMS Constitutional: (+) fatigue, (+) exhaustion Head: (+) headaches Ears/Nose/Mouth/Throat: (+) burning tongue, (-) loss of taste, (-) loss of smell Cardiovascular: (-) chest pain Respiratory: (+) shortness of breath, (-) snoring Gastrointestinal: (+) abdominal cramps, (-) diarrhea Musculoskeletal: (+) muscle aches, (+) knee joint pain, (+) shoulder joint pain Skin: (+) alopecia Neurological: (+) dizziness, (+) cognitive impairment Psychiatric: (+) insomnia, (+) anxiety HEALTH MAINTENANCE: Reviewed health maintenance issues today and recommended the following in detail. Depression Screening Never done Anxiety Screening Never done Pneumococcal Vaccine: 50+(1 of 1 - PCV) Never done Shingrix Vaccine(2 of 2) due on 11/06/2023 Mammogram Screening due on 12/25/2023 Covid-19 Vaccine(2023- season) due on 01/30/2024 Advance Directive Discussion due on 05/31/2024 Medicare Annual Wellness Visit due on 06/08/2024 LAB REVIEWED: Labs: - Cologuard: Normal result Tests: - Biopsy: No abnormalities reported Imaging: - Echocardiogram: No abnormal findings reported VITALS: BP 120/83 Pulse 86 Temp 36.7 C (98 F) (Oral) Ht 160.4 cm (5' 3.15) Wt 61.1 kg (134 lb 11.2oz) SpO2 98% BMI 23.75 kg/m Last 4 Encounter Wt Readings: Date: Wt: 11/30/2024 61.1 kg (134 lb 11.2 oz) 07/02/2024 58.1 kg (128 lb) 11/13/2023 59.6 kg (131 lb 6.3 oz) 10/04/2023 58.2 kg (128 lb 4.9 oz) PHYSICAL EXAMINATION: GENERAL: NAD, alert and oriented. SKIN: Unremarkable, no rash or skin lesions. HEAD: Normocephalic. EYES: PERRLA, EOMI, conjunctiva clear. EARS: External ears normal, canals clear, TM's normal. NOSE/SINUSES: Nares normal. Septum midline. OROPHARYNX: Lips, mucosa, and tongue normal, good dentition. No oral lesions noted. NECK: Supple, no lymphadenopathy, normal thyroid, no carotid bruits. LUNGS: Clear to auscultation bilaterally, no wheezes/rhonchi/rales. HEART: Regular rate and rhythm, no murmurs. No ectopy. EXTREMITIES: Normal, no deformities, no skin discoloration, no edema. NEURO: Awake, alert and oriented x3, cranial nerves II-XII grossly intact, normal gait, no involuntary motions. ASSESSMENT AND PLAN 1. Fatigue, unspecified type (R53.83) 2. Post covid-19 condition, unspecified (U09.9) - Persistent fatigue and lethargy since initial COVID-19 infection in February 2023; symptoms worsened post-vaccination. - Ordered comprehensive lab work including CBC, CMP, TSH, B12, folate, UA, vitamin D, trace elements, CRP, BNP, D-dimer, ferritin, and [place]-check. - Scheduled EKG and chest X-ray. - Referred to cardiology and pulmonology for further evaluation. - Follow-up in a couple of months to review results and progress. 3. Exercise intolerance (R68.89) 4. Shortness of breath (R06.02) - Worsening exercise intolerance and dyspnea since COVID-19 infection. - Ordered pulmonary function tests and 6-minute walk test. - Referred to pulmonology and cardiology for further evaluation. 5. Hyperlipidemia, unspecified hyperlipidemia type (E78.5) - No specific treatment changes discussed; continue current management. 6. Gastroesophageal reflux disease with esophagitis, unspecified whether hemorrhage (K21.00) - No specific treatment changes discussed; continue current management. 7. Non-toxic multinodular goiter (E04.2) - Follow-up with endocrinology as previously scheduled. 8. Brain fog (R41.89) - Cognitive impairment noted [id number] infection. - Ordered BACH cognitive test to be completed at home. - Referred to geriatrics for comprehensive cognitive evaluation. 9. Myalgia (M79.10) 10. Arthralgia, unspecified joint (M25.50) 11. Knee pain, unspecified chronicity, unspecified laterality (M25.569) - Musculoskeletal pain, including myalgia and arthralgia, noted [id number] infection. - Consider referral to rheumatology if symptoms persist. 12. Abdominal discomfort (R10.9) - Chronic abdominal discomfort with occasional IBS symptoms. - Referred to gastroenterology for further evaluation. 13. Insomnia, unspecified type (G47.00) - Difficulty initiating sleep due to racing thoughts and anxiety. - Discussed potential referral to sleep medicine if symptoms persist. 14. Glossitis (K14.0) - Burning sensation on the tongue noted in the afternoon. - Ordered B12 and folate levels to rule out deficiencies. - Consider referral to ENT if symptoms persist. 15. Alopecia areata (L63.9) - Recent onset of alopecia; no specific treatment changes discussed. 16. Disorder of bone, unspecified (M89.9) - check vit d level. Recheck in eight weeks. (See patient after visit summary for additional instructions to patient) Taqueria Vieira MD Extension Course Coordinator [facility] [phone] Recording using [employer] software for draft documentation of the visit was discussed with the patient/authorized accounts receivable representative; all questions welcomed and answered. Patient/authorized accounts receivable representative agreed to proceed * Taqueria Vieira MD - 11/30/2024 10:20 AM EDT Note was copied and pasted, without alteration from Aicha Contreras's visit of 05/22: Description of their course of COVID-19 illness 1. Symptoms began on 02/2023 -- AFTER MOST RECENT COVID-19 VACCINATION 2. Hospitalization? No 3. Was the patient on oxygen? No 4. Was patient discharged on oxygen? No 5. Was there an ICU stay? No 6. Was the patient intubated? No 7. Were there any COVID-19 medications given? No 8. Were there significant complications from the patients COVID-19 Illness? No 9. Has the patient received the COVID Vaccine? YES. Which vaccine? MideoMe COVID-19 Symptom Review Was ill for roughly 6 months after COVID infection 02/2022 -- was feeling back to her baseline and then she developed symptoms after COVID vaccine booster administered 02/2023. Most significant symptoms: Fatigue Sleep disturbances Sleep issues have gotten worse Insomnia Only sleeping 4-5 hours per night No trouble initiating sleep May wake up after a few hours and if not back to sleep in 45 minutes she wakes up Has tried melatonin and other OTC sleep aides without relief Her does not notice Will wake up and her mind starts racing Tries to take frequent breaks during the day, going for walks ?anxiety Sinus issues Constant nasal draining Throat irritation Burning sensation of tongue She has noticed new fissure down middle of throat No mouth or tongue dryness Recently treated for sinus infection May use Netti pot with distilled water and Mucinex Body aches Tylenol for arthritis helps Cortisone injections in shoulders No joint swelling Patient reports she was advised to wait 1 year to get shingles vaccine. Tolerated 4316-4139 season influenza vaccine. Recent/previously completed testing since COVID-19 infection(s): EKG none ECHO none PFT none CXR none Established with the following specialists: Endocrinology - Dr. Dominique Fisher, upcoming appt 05/25/2023 ENT - Dr. Joe Shah, upcoming appt 06/15/2023 Review of Systems Constitutional: Positive for activity change and fatigue. Negative for fever. HENT: Positive for congestion and rhinorrhea. Negative for facial swelling, sore throat and troubleswallowing. + tongue pain Respiratory: Negative for cough, shortness of breath and wheezing. Cardiovascular: Negative for chest pain, palpitations and leg swelling. Gastrointestinal: Negative for diarrhea, nausea and vomiting. Musculoskeletal: Positive for arthralgias and myalgias. Skin: Negative for rash. Neurological: Negative for syncope, numbness and headaches. Psychiatric/Behavioral: Positive for sleep disturbance. Negative for confusion. 1. Vaccine reaction, sequela - ICD9: 909.5, E949.9, ICD10: T50.Z95S (primary diagnosis) 2. Fatigue, unspecified type - ICD9: 780.79, ICD10: R53.83 3. Activity intolerance - ICD9: 780.99, ICD10: R68.89 4. Sleep disturbance - ICD9: 780.50, ICD10: G47.9 5. Sinus congestion - ICD9: 478.19, ICD10: R09.81 6. Rhinorrhea - ICD9: 478.19, ICD10: J34.89 7. Myalgias - ICD9: 729.1, ICD10: M79.10 8. Polyarthralgia - ICD9: 719.49, ICD10: M25.50 9. Tongue burning sensation - ICD9: 529.6, ICD10: K14.6 - Due to new symptom onset 1 year after COVID infection and previous resolution of lingering COVID symptoms before 02/2023, suspect patient is experiencing vaccine reaction/sensitivity rather than true long COVID - The patient and I reviewed available reCOVer clinic testing in detail. We discussed indications for testing and the benefits of results in directing the plan of care -- patient defers reCOVer clinic labs at this time - The patient will then follow-up with specialists and their PCP - Patient encouraged to continue following with established specialists - Discussed consults to Sleep medicine, PT, Psychology, Wellness (Integrative medicine) -- deferredat this time - Encouraged reconsideration of shingles vaccine with PCP, no overt contraindication from our perspective Discussed consults to Sleep medicine, PT, Psychology, Wellness (Integrative medicine) -- deferred at this time. [facility] Instructions* Patient Instructions* Taqueria Vieira MD - 11/30/2024 10:53 AM EDT - Complete the at-home BACH cognitive test sent to your [employer] account and return results when prompted. - Have blood and urine drawn for the long COVID panel: Complete blood count (CBC) and metabolic panel (CMP) Thyroid (TSH) Vitamin B12 and folate Vitamin D C-reactive protein (CRP) B-type natriuretic peptide (BNP) D-dimer Ferritin [place]-check (fatty acid profile) - Undergo these in-office tests before you leave today: Electrocardiogram (EKG) Chest X-ray - Schedule and complete these additional studies (you may do them at [place] if easier): Echocardiogram (heart ultrasound) Pulmonary function tests and six-minute walk with pulse oximetry (breathing tests) - Arrange specialist visits for further evaluation: Geriatrics for a detailed cognitive assessment (can be scheduled in [place]) Gastroenterology for chronic digestive issues Pulmonology for ongoing shortness of breath and exercise intolerance Cardiology for heart evaluation after your echo A wellness medicine air quality consultant to discuss anti-inflammatory diet options and other holistic approaches (including low-dose naltrexone if appropriate) - If your tongue burning or other symptoms remain a concern after initial workup, let us know aboutan ENT referral. - Monitor your symptoms and contact the clinic sooner if you experience any sudden worsening. - Plan to follow up in about two months (in person or virtually) to review test results and next steps. documented in this encounterMar[facility]07-03-2025 NoteHNO ID: [id number] Author: TAQUERIA VIEIRA MD Service: ? Author Type: Physician Type: Progress Notes Filed: 11/30/2024 11:28 Note Text: Note was copied and pasted, without alteration from Aicha Contreras's visit of 05/22: Description of their course of COVID-19 illness 1. Symptoms began on 02/2023 -- AFTER MOST RECENT COVID-19 VACCINATION 2. Hospitalization? No 3. Was the patient on oxygen? No 4. Was patient discharged on oxygen? No 5. Was there an ICU stay? No 6. Was the patient intubated? No 7. Were there any COVID-19 medications given? No 8. Were there significant complications from the patients COVID-19 Illness? No 9. Has the patient received the COVID Vaccine? YES. Which vaccine? MideoMe COVID-19 Symptom Review Was ill for roughly 6 months after COVID infection 02/2022 -- was feeling back to her baseline and then she developed symptoms after COVID vaccine booster administered 02/2023. Most significant symptoms: Fatigue Sleep disturbances Sleep issues have gotten worse Insomnia Only sleeping 4-5 hours per night No trouble initiating sleep May wake up after a few hours and if not back to sleep in 45 minutes she wakes up Has tried melatonin and other OTC sleep aides without relief Her does not notice Will wake up and her mind starts racing Tries to take frequent breaks during the day, going for walks ?anxiety Sinus issues Constant nasal draining Throat irritation Burning sensation of tongue She has noticed new fissure down middle of throat No mouth or tongue dryness Recently treated for sinus infection May use Netti pot with distilled water and Mucinex Body aches Tylenol for arthritis helps Cortisone injections in shoulders No joint swelling Patient reports she was advised to wait 1 year to get shingles vaccine. Tolerated 4704-8915 season influenza vaccine. Recent/previously completed testing since COVID-19 infection(s): EKG none ECHO none PFT none CXR none Established with the following specialists: Endocrinology - Dr. Dominique Fisher, upcoming appt 05/25/2023 ENT - Dr. Joe Shah, upcoming appt 06/15/2023 Review of Systems Constitutional: Positive for activity change and fatigue. Negative for fever. HENT: Positive for congestion and rhinorrhea. Negative for facial swelling, sore throat and trouble swallowing. + tongue pain Respiratory: Negative for cough, shortness of breath and wheezing. Cardiovascular: Negative for chest pain, palpitations and leg swelling. Gastrointestinal: Negative for diarrhea, nausea and vomiting. Musculoskeletal: Positive for arthralgias and myalgias. Skin: Negative for rash. Neurological: Negative for syncope, numbness and headaches. Psychiatric/Behavioral: Positive for sleep disturbance. Negative for confusion. 1. Vaccine reaction, sequela - ICD9: 909.5, E949.9, ICD10: T50.Z95S (primary diagnosis) 2. Fatigue, unspecified type - ICD9: 780.79, ICD10: R53.83 3. Activity intolerance - ICD9: 780.99, ICD10: R68.89 4. Sleep disturbance - ICD9: 780.50, ICD10: G47.9 5. Sinus congestion - ICD9: 478.19, ICD10: R09.81 6. Rhinorrhea - ICD9: 478.19, ICD10: J34.89 7. Myalgias - ICD9: 729.1, ICD10: M79.10 8. Polyarthralgia - ICD9: 719.49, ICD10: M25.50 9. Tongue burning sensation - ICD9: 529.6, ICD10: K14.6 - Due to new symptom onset 1 year after COVID infection and previous resolution of lingering COVID symptoms before 02/2023, suspect patient is experiencing vaccine reaction/sensitivity rather than true long COVID - The patient and I reviewed available reCOVer clinic testing in detail. We discussed indications for testing and the benefits of results in directing the plan of care -- patient defers reCOVer clinic labs at this time - The patient will then follow-up with specialists and their PCP - Patient encouraged to continue following with established specialists - Discussed consults to Sleep medicine, PT, Psychology, Wellness (Integrative medicine) -- deferred at this time - Encouraged reconsideration of shingles vaccine with PCP, no overt contraindication from our perspective Discussed consults to Sleep medicine, PT, Psychology, Wellness (Integrative medicine) -- deferred at this time.[facility]06-10-2025 Telephone encounter Note* Telephone Encounter - Glenny Mercado LPN - 11/07/2024 3:56 PM EDT Notified patient that at this time this is the soonest even when I look for a physical slot. Advised her would add to wait list. [facility]06-10[facility] Miscellaneous Notes* Telephone Encounter - Glenny Mercado LPN - 11/07/2024 3:56 PM EDT Notified patient that at this time this is the soonest even when I look for a physical slot. Advised her would add to wait list. * Telephone Encounter - Maria Elena Junior - 11/07/2024 8:52 AM EDT Patient calling in to establish care with Dr. Vieira. Patient is scheduled for his first patient access spot in May. Her , Jorge is a current patient with [facility] practice. Patient is asking if he would make an exception to see her sooner since her is already a patient. Please review and advise. Maria Elena Junior November 07, 2024 8:53 AM documented in this encounterMarion Hospital06-10-2025 Telephone encounter Note * Telephone Encounter - Maria Elena Junior - 11/07/2024 8:52 AM EDT Patient calling in to establish care with Dr. Vieira. Patient is scheduled for his first patient access spot in May. Her , Jorge is a current patient with [facility] practice. Patient is asking if he would make an exception to see her sooner since her is already a patient. Please review and advise. Maria Elena Junior November 07, 2024 8:53 AM [facility]05-08[facility] Evaluation note* Diagnosis Onset Date Resolution Status Admit Date Gas bloat syndrome acute September 10:17am Heartburn symptom acute September 10:17am Atrophic vaginitis acute November 292024 8:55am Encounter for routine gynecological examination noneactive November 292024 8:55am [facility] Work Phone: 1(509) 187-828404-16-2025 Telephone encounter Note* Telephone Encounter - Maira Neville - 09/13/2024 10:38 AM EDT Patient scheduled with Dr. Vieira on 10/19/2024 [facility]04-[facility] Miscellaneous Notes* Telephone Encounter - Maira Neville - 09/13/2024 10:38 AM EDT Patient scheduled with Dr. Vieira on 10/19/2024 * Telephone Encounter - Maira Neville - 09/11/2024 10:46 AM EDT 1st attempt: LVM to schedule first appt with covid recovery - can be in person or virtual 2nd attempt: Sent [facility] message with number to schedule * Telephone Encounter - Maira Neville - 09/11/2024 10:46 AM EDT ----- Message from Jose Nelson sent at 09/08/2024 2:07 PM EDT ----- Regarding: Covid recovery Patient has been identified by name and Date of : Yes Patient: Tiffanie Ramsey Date of : 1960 Provider for this encounter : Covid recovery Bello Davenport MD Reason for call: Cvid Was an appointment scheduled: No Reason for requesting visit (RFV/signs and symptoms/diagnosis) : Fatigue, Brain fog, not sleeping ,Dizziness Person calling: self Return call to: self Call patient at: at home [phone] (home) [phone] (cell) Payor: MEDICARE / Plan: MEDICARE A AND B / Product Type: Medicare / Jose Banegas documented in this encounterMarion Hospital04-14-2025 Telephone encounter Note * Telephone Encounter - Taqueria Vieira MD - 09/11/2024 12:11 PM EDT We can have her see me [facility] Work Phone: 1(397) 358-128004-14-2025 Miscellaneous Notes* Telephone Encounter - Taqueria Vieira MD - 09/11/2024 12:11 PM EDT We can have her see me * Telephone Encounter - Rosalind Bergeron RN - 09/11/2024 11:14 AM EDT Consult 05/20/23 with Yumiko Contreras APRN.[employer]IC PRESS OPERATOR Follow up: scheduled with Dr. Vieira 10/19/[address] [facility] nurse, pt returning call to make appointment with [facility]. I started to assist to schedule her, but reviewed chart and she had been seen in [facility] [id number] for one visit. Pt states she had Covid in 03/21 with symptoms lasting 6 months and since has had 2 vaccines which started longterm symptoms (fatigue, brain fog, not sleeping ,dizziness). I reviewed with patient that [facility] is not intended place to be seen for Vaccine reactions, as discussed during initial appointment Pt state she doesn't think her problem is vaccine reactions. She states her immune system was messed up by Bucky and that is what is causing her issues with vaccines and symptoms. She states she isat the end of her rope and can't think of anyone else to help her. Offered her appointment to discuss with Dr. Vieira, scheduled for 10/19/24, but also said I would forward chart to review with Dr. Olguin and we would contact if any further questions or if appointment needed to be canceled after review, patient was appreciative. documented in this encounterMarion Hospital04-14-2025 Telephone encounter Note * Telephone Encounter - Rosalind Bergeron RN - 09/11/2024 11:14 AM EDT Consult 05/20/23 with Yumiko Contreras APRN.[employer]DRA[employer]IC PRESS OPERATOR Follow up: scheduled with Dr. Vieira 10/19/[address] [facility] nurse, pt returning call to make appointment with [facility]. I started to assist to schedule her, but reviewed chart and [facility] [facility] [id number] for one visit. 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 I reviewed with patient that [facility] is not intended place to be seen for Vaccine reactions, as discussed during initial appointment Pt state she doesn't think her problem is vaccine reactions. She states her immune system was messed up by Covid and that is what is causing her issues with vaccines and symptoms. She states she isat the end of her rope and can't think of anyone else to help her. Offered her appointment to discuss with Dr. Vieira, scheduled for 10/19/24, but also said I would forward chart to review with Dr. Olguin and we would contact if any further questions or if appointment needed to be canceled after review, patient was appreciative. [facility]04-14-2025 Telephone encounter Note* Telephone Encounter - Maira Neville - 09/11/2024 10:46 AM EDT 1st attempt: LVM to schedule first appt with [facility] - can be in person or virtual 2nd attempt: Sent MC message with number to schedule [facility]04-14-2025 Telephone encounter Note* Telephone Encounter - Maira Neville - 09/11/2024 10:46 AM EDT ----- Message from Jose Nelson sent at 09/08/2024 2:07 PM EDT ----- Regarding: Covid recovery Patient has been identified by name and Date of : Yes Patient: Tiffanie Ramsey Date of : 1960 Provider for this encounter : Bucky Davenport MD Reason for call: Cvid Was an appointment scheduled: No Reason for requesting visit (RFV/signs and symptoms/diagnosis) : Fatigue, Brain fog, not sleeping ,Dizziness Person calling: self Return call to: self Call patient at: at home [phone] (home) [phone] (cell) Payor: MEDICARE / Plan: MEDICARE A AND B / Product Type: Medicare / Jose Shekhar Superintendent Measurement [facility]04-11-2025 NoteHNO ID: [id number] Author: OZZIE LOUIS MD Service: ? Author Type: Physician Type: Progress Notes Filed: 09/08/2024 11:19 Note Text: CC: Patient presents with: Hair/Scalp Problem Last derm visit 06/21/2023 with TIFFANI Partida HPI: 64 year old female patient here for: Here for believed to be AA Located on the right side of scalp Notes a 50 cent piece bald spot Had this happen 25+ years ago +life stress (caring for elderly mother) caring for ill Washing with Nexxus shampoo Says she always has low vit D, hard to tolerate pills Derm History: Denies personal history of skin cancer Allergies: ALLERGIES Allergen Reactions Abby [Fexofenadi* Intolerance Hyperactivity Claritin [Loratadin* Intolerance Hyperactivity Lipitor [Atorvastat* GI Upset Sulfa (Sulfonamide * Rash Zyrtec [Cetirizine * Intolerance Drowsiness Medications: Current Outpatient Medications Medication Sig Dispense Refill amoxicillin-clavulanate potassium (AUGMENTIN) 875-125 mg per tablet Take 1 tablet by mouth every 12 hours. methylPREDNISolone (MEDROL DOSE-PACK) 4 mg Dose-Pack take by mouth as directed on inside of package fluticasone (FLONASE) 50 mcg/actuation nasal spray Use 2 Sprays in each nostril once daily. 3 Bottle 3 No current facility-administered medications for this visit. FH: +NMSC in Mother SH: suffers from long covid, PHYSICAL EXAM: Skin examination including scalp Skin findings: Right parietal scalp with 1, coin shaped alopectic patch; about the size of a quarter ASSESSMENT/PLAN: Alopecia Areata, right parietal scalp, 1 patches total Chronic, not at treatment goal -discussed prognosis and etiology, patients questions/concerns addressed -discussed intralesional steroids as most effective treatment option, discussed risks (pain, bleeding, thinning or discoloration of skin), benefits and alternatives -No evidence thyroid disease on ROS -Verbal consent obtained -injected 1 affected area with 0.5mL total of 10mg/mL of triamcinolone, tolerated well -Start Fluocinonide 0.05% soln, apply twice daily to affected areas on the scalp M-F when active then stop, discussed risks including skin discoloration and thinning, advised to AVOID on breasts, thighs, underarms, groin -Vit D hydrox ordered today for baseline RTC 8 weeks f/u The patient is seen and examined by Dr. Louis and the following reflects his/her service. Scribed by Rosio Tran MA I agree with the Chief Complaint, ROS, and Past Histories independently gathered by the clinical software support specialist and the remaining scribed note accurately describes my personal service to and examination of the patient. Ozzie Louis [facility]04-11-2025 History of Present illness Narrative* Ozzie Louis MD - 09/08/2024 10:42 AM EDT CC: Patient presents with: Hair/Scalp Problem Last derm visit 06/21/2023 with TIFFANI Partida HPI: 64 year old female patient here for: Here for believed to be AA Located on the right side of scalp Notes a 50 cent piece bald spot Had this happen 25+ years ago +life stress (caring for elderly mother) caring for ill Washing with Nexxus shampoo Says she always has low vit D, hard to tolerate pills Derm History: Denies personal history of skin cancer Allergies: ALLERGIES Allergen Reactions Abby [Fexofenadi* Intolerance Hyperactivity Claritin [Loratadin* Intolerance Hyperactivity Lipitor [Atorvastat* GI Upset Sulfa (Sulfonamide * Rash Zyrtec [Cetirizine * Intolerance Drowsiness Medications: Current Outpatient Medications Medication Sig Dispense Refill amoxicillin-clavulanate potassium (AUGMENTIN) 875-125 mg per tablet Take 1 tablet by mouth every 12hours. methylPREDNISolone (MEDROL DOSE-PACK) 4 mg Dose-Pack take by mouth as directed on inside of package fluticasone (FLONASE) 50 mcg/actuation nasal spray Use 2 Sprays in each nostril once daily. 3 Bottle 3 No current facility-administered medications for this visit. FH: +NMSC in Mother SH: suffers from long covid, PHYSICAL EXAM: Skin examination including scalp Skin findings: Right parietal scalp with 1, coin shaped alopectic patch; about the size of a quarter ASSESSMENT/PLAN: Alopecia Areata, right parietal scalp, 1 patches total Chronic, not at treatment goal -discussed prognosis and etiology, patients questions/concerns addressed -discussed intralesional steroids as most effective treatment option, discussed risks (pain, bleeding, thinning or discoloration of skin), benefits and alternatives -No evidence thyroid disease on ROS -Verbal consent obtained -injected 1 affected area with 0.5mL total of 10mg/mL of triamcinolone, tolerated well -Start Fluocinonide 0.05% soln, apply twice daily to affected areas on the scalp M-F when active then stop, discussed risks including skin discoloration and thinning, advised to AVOID on breasts, thighs, underarms, groin -Vit D hydrox ordered today for baseline RTC 8 weeks f/u The patient is seen and examined by Dr. Louis and the following reflects his/her service. Scribed by Rosio Tran MA I agree with the Chief Complaint, ROS, and Past Histories independently gathered by the clinical software support specialist and the remaining scribed note accurately describes my personal service to and examination of the patient. Ozzie Louis MD [facility]04-[facility] Evaluation note* Diagnosis Onset Date Resolution Status Admit Date Left shoulder pain acute August 31, 2024 10:03am Gas bloat syndrome acute September 10:17am Heartburn symptom acute September 10:17am Encounter for routine gynecological examination noneactive November 292024 8:55am [employer] Work Phone: [phone] Telephone encounter Note* Telephone Encounter - Shona Barton - 11/15/2023 8:03 AM EDT Patient verbally understands urine might have been contaminated. Patient understands and states shedoes feel worse today and is going to contact her PCP. Shona Barton [facility]06-17-2024 Miscellaneous Notes* Telephone Encounter - Shona Barton - 11/15/2023 8:03 AM EDT Patient verbally understands urine might have been contaminated. Patient understands and states shedoes feel worse today and is going to contact her PCP. Shona Barton * Telephone Encounter - Antoinette Cody MA - 11/14/2023 2:33 PM EDT Left message for pt to call back. Antoinette Cody MA * Telephone Encounter - Ryanne Mcconnell PA - 11/14/2023 2:21 PM EDT Please let patient know urine revealed mixed bacteria, may indicate contamination. If symptoms are persisting, needs follow-up with PCP for repeat urine culture. documented in [facility] encounterMar[facility]06-16-[facility]24 Telephone encounter Note * Telephone Encounter - Antoinette Cody MA - 11/14/2023 2:33 PM EDT Left message for pt to call back. Antoinette Cody MA [facility]06-16-2024 Telephone encounter Note* Telephone Encounter - Ryanne Mcconnell PA - 11/14/2023 2:21 PM EDT Please let patient know urine revealed mixed bacteria, may indicate contamination. If symptoms are persisting, needs follow-up with PCP for repeat urine culture. [facility] Work Phone: 1(906) 828-113406-15-2024 History of Present illness Narrative* Leatha Torres APRN.CNP - 11/13/2023 10:00 AM EDT This note was created using [employer]. Subjective Tiffanie Ramsey is a 63 year old female.Patient presents with urinary frequency and burning that started this morning. Patient reports she just completed antibiotics for otitis. Denies incontinenceof fever. Objective BP 135/79 Pulse 64 Temp 36.6 C (97.8 F) Resp 18 Wt 59.6 kg (131 lb 6.3 oz) SpO2 100% BMI 24.03 kg/m Physical Exam PHYSICAL EXAMINATION: General appearance: Well appearing, alert, in no acute distress, well-hydrated, well nourished. Abdomen: Normal abdominal exam, Abdomen soft, non-tender. Bowel sounds normal. No masses, organomegaly Assessment and Plan ASSESSMENT/PLAN: 1. Burning with urination - ICD9: 788.1, ICD10: R30.0 acute - UA positive for millie esterase - Send urine for culture - Patient education for prevention given - UA DIP, URINE (POC) - URINE CULTURE Would start antibiotics if culture is positive. Encouraged patient to drink plenty of fluids and avoid caffeine and carbonated beverages. Leatha Torres APRN.PANA[employer] HAT HYDRAULIC PRESS OPERATOR documented in this encounterMarion Hospital05-06-2024 Instructions* Patient Instructions* Nathalia Nugent APRN.CNP - 10/04/2023 3:23 PM EDT [facility] ADDRESS: [address] [place] [address] PHONE: [phone] FOLLOW UP: Call your primary care provider today or tomorrow to establish a follow up appointment. Should your symptoms worsen, report to the emergency department for re-evaluation. Lie on your side or tilt your head, with the affected ear facing up Make sure the ear drops go into the ear canal Stay in this position for 20 minutes (after the ear drops are put in) -Medicines to relieve pain like OTC Tylenol or Ibuprofen -Do NOT swim 7 to 10 days after starting treatment -You can take a shower, but make sure you keep the ear dry. You can do this by putting some petroleum jelly (sample brand name: Vaseline) on a cotton ball, and then put the cotton ball in your outer ear, covering the opening of your ear canal. Do not push the cotton ball into the ear canal. -Follow up with ENT in 7 days Patient education: Ear infections (otitis media) WHAT IS AN EAR INFECTION? -- Ear infection is also known as acute otitis media (otitis = ear, media= middle). Otitis media is an infection of the middle section of the ear. Most of the time, it is caused by bacteria that nearly all children have in their nose and throat at one time or another. Ear infections most often develop after a viral respiratory tract infection, such as a cold or the flu. These infections can cause swelling of the mucous membranes of the nose and throat and diminishnormal host defenses such as clearance of bacteria from the nose, increasing the amount of bacteriain the nose. Viral respiratory tract infections also can impair Eustachian tube function. Normal Eustachian tube function is important for maintaining normal pressure in the ear. Impaired Eustachian tube function changes the pressure in the middle ear (like when you are flying in an airplane). Fluid (called an effusion) may form in the middle ear and bacteria and viruses follow, resulting in inflammation in the middle ear. The increased pressure causes the eardrum to bulge, leading to the typical symptoms of fever, pain, and fussiness in young children. EAR INFECTION SYMPTOMS -- Symptoms of an ear infection in adolescents and older children may include ear aching or pain and temporary hearing loss. These symptoms usually come on suddenly. In infants and young children, symptoms of an ear infection can include: ?Fever (temperature higher than 100.4 F or 38 C, see the table for how to measure a child's temperature) ?Pulling on the ear ?Fussiness or irritability ?Decreased activity ?Lack of appetite or difficulty eating ?Vomiting or diarrhea ?Draining fluid from the outer ear (called otorrhea) EAR INFECTION DIAGNOSIS -- If you suspect that your child has an ear infection, call your doctor ornurse to see if and when the child should be examined. Although the exam is not painful, most infants and children do not like having their ears examined.To make the process easier, hold your child in your lap and hug your child's arms and body while the doctor or nurse uses an instrument (otoscope) to look inside the child's ear. Often cerumen (ear wax) will need to be removed so your doctor or nurse can get a good view of the ear drum. The doctor or nurse can tell if your child has an ear infection by looking at the ear drum (tympanic membrane) for the typical features of an ear infection. EAR INFECTION TREATMENT -- Treatment of an ear infection may include: ?Antibiotics ?Medicines to treat pain and fever ?Observation ?A combination of the above The best treatment depends on the child's age, history of previous infections, degree of illness,and any underlying medical problems. Antibiotics -- Antibiotics are routinely given to infants who are younger than 24 months or who have high fever or infection in both ears. Children who are older than 24 months and have mild symptomsmay be treated with an antibiotic or often are observed to see if they improve without antibiotics. Antibiotics can have side effects such as diarrhea and rash, and overusing antibiotics can lead to more difficult to treat (resistant) bacteria. Resistance means that a particular antibiotic no longer works or that higher doses are needed next time. Observation -- In some cases, your child's doctor or nurse will recommend that you watch your childat home before starting antibiotics; this is called observation. Observation can help to determine whether antibiotics are needed. Observation may be recommended in these situations: ?If the child is older than 24 months ?If ear pain and fever are not severe ?If the child is otherwise healthy Pain-relieving medicines should be given to ease pain whether your child is receiving antibiotics or being observed. If your child is being observed rather than treated with antibiotics, you will need to call or go back to the doctor or nurse's office after 24 hours for follow-up. If your child's pain or fever continues or worsens, antibiotics are usually recommended; observation may continue if the child is improving. Pain management -- Pain-relieving medicines, including ibuprofen (sample brand name: Motrin) and acetaminophen (sample brand name: Tylenol), may be used to reduce discomfort. Complementary and alternative medical treatments -- There are a wide variety of complementary and alternative medical (CAM) treatments advertised to treat ear infections. These may include homeopathic, naturopathic, chiropractic, and acupuncture treatments. There are few scientific studies of CAM treatments for ear infection, and even fewer studies that show CAM treatments to be effective. As a result, these treatments are not recommended for ear infections in children. Decongestants and antihistamines -- Cough and cold medicines (which usually include a decongestant or antihistamine) have not been proven to speed healing or reduce complications of ear infections inchildren. In addition, these treatments have side effects that can be dangerous. Neither decongestants nor antihistamines are recommended for children with ear infections. Follow-up -- symptoms should improve within 24 to 48 hours whether or not antibiotics were prescribed. If your child does not improve after 48 hours or gets worse, call your doctor or nurse for advice. Although fever and discomfort may continue even after starting antibiotics, the child should improve every day. If your child appears more ill than when seen by his or her health care provider, contact the provider as soon as possible. Children who are younger than two years and those who have language or learning problems should have a follow-up ear exam two to three months after being treated for an ear infection. These children are at risk for delays in learning to speak. This follow-up helps to ensure that the fluid collection (which can affect hearing) has resolved. EAR INFECTION COMPLICATIONS Tympanic membrane rupture -- One of the common complications of an ear infection is rupture (perforation) of the ear drum, also known as the tympanic membrane. The tympanic membrane can rupture when fluid presses on the membrane, reducing blood flow and causing the tissue to weaken. It does not hurt when the membrane ruptures, and many children actually feel better because pressure is released. Fortunately, the tympanic membrane usually heals quickly after rupturing, within hours to days. Rupture of the ear drum is an indication for antibiotic treatment of an ear infection. Hearing loss -- The fluid that collects behind the eardrum (called an effusion) can persist for weeks to months after the pain of an ear infection resolves. An effusion causes trouble hearing, which is usually temporary. If the fluid persists, however, it may interfere with the process of learning to speak. Effusions usually resolve over time without any treatment. However, if the effusion persists for more than three months, the child may need treatment with a surgical procedure. The decision to treat is based upon how much the effusion affects the child's hearing and the child's risk of speech problems. Children with underlying speech, hearing, or developmental problems may have worse outc omes related to the fluid and conductive hearing loss. They may need earlier intervention. Children who are not treated for an effusion should be monitored over time. This includes an ear exam and hearing testing every three to six months until the effusion goes away. EAR INFECTION PREVENTION -- Some children develop ear infections frequently. Recurrent ear infections are defined as three or more infections in six months, or four or more infections within 12 months. In addition to receiving the pneumococcal and influenza vaccines, as recommended for all children, several interventions can help reduce the risk of recurrent infections. These include avoidance oftobacco smoke, , continuous low dose antibiotics, and/or surgical placement of tubes in the ears. documented in this encounterMarion Hospital05-06-2024 History of Present illness Narrative* Nathalia Nugent APRN.CNP - 10/04/2023 3:21 PM EDT HPI Tiffanie Ramsey is a 63 year old female. Patient is being seen today for chief complaint of Ear Pain (Ear pain in the left ear from 1-2 daysago) Extensive ENT hx Review of Systems Constitutional: Negative for chills and fever. HENT: Positive for ear pain. Negative for congestion, sore throat, trouble swallowing and voice change. Respiratory: Negative for shortness of breath. Cardiovascular: Negative for chest pain. BP 129/83 (BP Site: Right Arm, BP Position: Sitting, BP Cuff Size: Regular Adult) Pulse 79 Temp36.9 C (98.5 F) (Right Tympanic) Resp 18 Ht 157.5 cm (5' 2) Wt 58.2 kg (128 lb 4.9 oz) SpO2 97% BMI 23.47 kg/m HISTORIES PAST MEDICAL HISTORY Diagnosis Date COVID PAST SURGICAL HISTORY Procedure Laterality Date EAR SURGERY HX Right Current Outpatient Medications on File Prior to Visit Medication Sig fluticasone (FLONASE) 50 mcg/actuation nasal spray Use 2 Sprays in each nostril once daily. No current facility-administered medications on file prior to visit. ALLERGIES Allergen Reactions Lipitor [Atorvastat* GI Upset Abby [Fexofenadi* Intolerance Hyperactivity Claritin [Loratadin* Intolerance Hyperactivity Sulfa (Sulfonamide * Rash Zyrtec [Cetirizine * Intolerance Drowsiness Physical Exam Constitutional: Appearance: Normal appearance. She is not toxic-appearing. HENT: Right Ear: A middle ear effusion is present. No mastoid tenderness. Tympanic membrane is not perforated, erythematous or bulging. Left Ear: Tenderness present. No mastoid tenderness. Tympanic membrane is perforated and erythematous. Tympanic membrane is not bulging. Nose: Congestion present. No rhinorrhea. Mouth/Throat: Pharynx: No oropharyngeal exudate or posterior oropharyngeal erythema. Eyes: Pupils: Pupils are equal, round, and reactive to light. Cardiovascular: Pulses: Normal pulses. Pulmonary: Effort: Pulmonary effort is normal. Musculoskeletal: Cervical back: Normal range of motion. Skin: General: Skin is warm. Neurological: General: No focal deficit present. Mental Status: She is alert. ASSESSMENT/PLAN: 1. Acute otitis media, left - ICD9: 382.9, ICD10: H66.92 - Supportive care with plenty of fluids, rest, and analgesia prn. - OFLOXACIN 0.3 % EAR DROPS -OTC analgesics like Tylenol and Ibuprofen for pain -Intranasal saline irrigation to provide symptomatic relief -Intranasal corticosteroids like Flonase to decrease inflammation in nasal passages -Use humidifiers at night time -Increase fluid intake -OTC antihistamines like Claritin or Zyrtec as directed on the box to dry up nasal secretion Red flags reviewed with patient, verbalizes understanding and agrees with plan Follow up with PCP Nathalia Nugent APRN.PANAMA HAT HYDRAULIC PRESS OPERATOR documented in this encounterMarion Hospital05-03-2024 History of Present illness Narrative* Demetris Garcia PT - 10/01/2023 10:21 AM EDT Images from the original note were not included. Episode Visit Count: 1 Therapist That Will Accept/Oversee The Plan Of Care: Demetris Garcia PT Start of Care Date: 10/01/23 Onset Date: 04/30/23 Plan of Care Certification Date: 10/01/23 Next Certification Due Date: 11/05/23 Patient Identified by Name and Date of : Yes [facility] THERAPY PHYSICAL THERAPY EVALUATION PLAN OF CARE: Assessment: Tiffanie Ramsey presents with chief complaint of L LBP and LLE radiculopathy that interferes with walking . She presents with impairments in independence in exercise, overall function, and range of motion. PROMIS (Patient-Reported Outcomes Measurement Information System) scores were reviewed and identified as a rehabilitation concern. Prognosis for therapy is Good due to: current objective clinical presentation . Pt demonstrates familiar pain with closing of the L facet joints of the L-spine. She will benefit from skilled therapy services to meet the goals established for this plan of care as noted below. Classification Low Back Pain Classification: Movement Control Goals for Episode of Care: created on 10/01/23 through 11/26/23 Independent in home exercises. Patient will decrease pain rating by 2 points to meet minimal clinical important difference for numeric pain rating scale. Restore pain-free lumbar ROM to WNL to allow for ease of ADL's and moving objects Stand / Walk 1 hour without pain/symptoms. Patient Goals: Reduce the symptoms Planned Interventions, Frequency, and Duration: Current Frequency: 1x/week Duration: 8 weeks Total Number of Visits Planned: 8 Planned Treatment Interventions: Therapeutic exercise (08449), Neuromuscular re- education (51883), Manual therapy (72383), Therapeutic activities (26136), Self- jail management (28415), Patient/Family/Caregiver Education PLAN FOR NEXT VISIT: Opening of Lumbar facet joints Patient demonstrates good understanding of plan of care and treatment. The above goals and plan of care were discussed and agreed upon by patient/family. SUBJECTIVE: Back and hip pain. Feels like it would be beneficial to crack the L side of her back. Turn to the Left to say goodbye to someone and had a spasm in the L LB and the pain went down the L leg. Can wakeup with a sore L foot. Prolonged walking for less than an hour can cause pain. Patient Goals: Reduce the symptoms Functional Limitations: walking Prior Level of Function: Independent without limitations Intake Information: Prescription present Pain: Pain Pain Level: 0 (4/10 on average) Pain Location: Low Back/Lumbar Spine - Left Additional Pain Information : Location 2 Pain Location 2: Leg - Left PROMIS Scales 09/30/2023 Higher is Better Phys Func - Score 40 (mild dysfunction) Phys Func - Percentile 16 Self-Eff Symptom - Score 50 (Average) Self-Eff Symptom - Percentile 50 T-scores: mean of general population = 50. 5 points is clinically meaningfully difference Percentiles provide an indication of how the patient's score ranks in relation to the general population. Higher percentile rankings indicate better function/quality of life. 50th percentile is the average of the general population and indicates half of respondents had a worse score. OBJECTIVE MEASURES WITH LEVEL OF FUNCTION: Posture / Alignment Posture: Good Lumbar Spine AROM Lumbar Flexion: Normal Lumbar Extension: Minimal limitation, Peripheralizing Lumbar L Rotation: Moderate limitation, Peripheralizing LE AROM Tested?: Yes LE AROM R LE AROM: WNL L LE AROM: WNL LE Flexibility Flexibility: Hamstring Flexibility R Hamstring Flexibility: WNL L Hamstring Flexibility: WNL LE Strength L Hip Flexion (L2): 4/5 (causes some pain in the anterior hip) L Knee Extension (L3): 5/5 L Ankle Dorsiflexion (L4): 5/5 Special Tests - Hip and Spine Hip and Spine Special Tests: SLR Test SLR Test: Right Negative, Left Negative Education: Education Learning Preferences: Demonstration, Explanation, Performance, Printed Materials Barriers: None Learning/educational needs: Home exercise program, Plan of Care Education Provided: Yes, see treatment interventions for education provided Education Provided To: Patient, Caregiver Education Mode/Type: Demonstration, Explanation/Discussion, Literature/Printed Materials, Performance Response to Education/Teach Back: States/Identifies, Return Demonstration TREATMENT: PT Treatment Interventions: Therapeutic Exercise Evaluation Therapeutic Exercise: 1: Discussed exam findings, purpose of the HEP and the HEP handout was provided to the pt. HEP discussed in detail with how to safely and properly perform each therapeutic exercise. 2: LTR to the L only 2 x 10 Skilled Intervention: Patient was educated in proper exercise technique and purpose for exercises. Provided written instruction for home exercise program to facilitate proper performance and compliance. Correct performance of therapeutic exercises was facilitated with verbal and visual cuing. Billing * Evaluation Low Complexity: 1 Unit Therapeutic Exercise Treatment Minutes: 10 Skilled Treatment Time Minutes (timed and untimed codes): 39 Total Session Time (minutes): 39 Session Start Time : 1021 Session Stop Time : 1100 Demetris Garcia PT documented [facility] History of Present illness Narrative* Mirella Sanchez PA-C - 09/09/2023 11:44 AM EDT Mirella Sanchez PA-C Department of Orthopaedics Orthopaedics [address] [address] Dept: [phone] September 09, 2023 CHIEF COMPLAINT: New and Pain of the Right Hip and New and Pain of the Left Hip Ms. Tiffanie Ramsey is a 63 year old female who presents with pain in her low back and left hip which has been bothering her intermittently for the past several months. Pain is as high as a 9 out of 10 deep aching, burning. Specifically she gets pain in her left low back region if she sits in a car for about an hour. Back feels a little stiff when she initially starts to ambulate but she is able to loosen things up if she walks. Feels as though left leg is slightly weaker than the left when she does leg lifts. Complains of some pressure-like pain in her left knee when she does deep squatting. Denies any groin pain right or left. No pain radiating down the leg. She is only taking intermittent Tylenol arthritis and has tried a lot of different topicals including Voltaren and Aspercreme. She is not taking any type of an oral anti- inflammatory. 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 ASSESSMENT: M25.552 Pain in left hip (primary encounter diagnosis) M51.36 DDD (degenerative disc disease), lumbar PLAN: Hip exam is rather benign, she is acutely tender over her left SI joint. We discussed gettingsome lumbar films, some of her complaints, like they may be coming from some lumbar disc disease. Will get her on an oral anti-inflammatory and have her participate in some physical therapy for her low back. Ms. Tiffanie Ramsey was advised as to contrast therapies and/or to take analgesics/anti-inflammatories as needed and all contraindications were reviewed. OBJECTIVE: Ms. Tiffanie Ramsey is a pleasant 63 year old in no apparent distress. Gen:Ht 5' 2 (1.58m) Wt 128 lb 1.4 oz (58.1kg) BMI 23.42 kg/(m^2). nl development, non obese, no deformities ENT: Normocephalic, normal hearing, moist mucosa CV: Pulses:DP/PT= 2+ and symmetric, capillary refill < 2 secs, no peripheral edema/varicosities Skin: no rash, bruising or lesions. Good turgor. Psych: cooperative and appropriate, alert and oriented x 3, good mood and affect. Musculoskeletal: HIP EXAM: Left: ROM: Extension: full extension Flexion: 110 degrees Internal Rotation: 25 degrees External Rotation: 30 degrees Abduction: 25 degrees Adduction: 30 degrees Strength: Pain with resisted hip flexion Palpation: Tenderness over left SI joint Log roll: non-painful. Straight leg raise: Negative Neurovascular Status: Sensation Intact, Moves foot and ankle up & down, and 2+ dorsalis pedis Right: ROM: Extension: full extension Flexion: 110 degrees Internal Rotation: 25 degrees External Rotation: 30 degrees Abduction: 25 degrees Adduction: 30 degrees Strength: Abduction 5/5 and Flexion 5/5 Palpation: No tenderness Log roll: non-painful. Straight leg raise: Negative Neurovascular Status: Sensation Intact, Moves foot and ankle up & down, and 2+ dorsalis pedis Imaging: IMPRESSION: Minimal L2 superior endplate height loss, age indeterminate. Mild multilevel degenerative changes in the lumbar spine, as described. Hip joint spaces are maintained bilaterally. Pre K Teacher: [employer] [facility] Transcribe Date/Time: Sep 09 2023 4:36P Dictated by : SHELIA SALEH MD This examination was interpreted and the report reviewed and electronically signed by: SHELIA SALEH MD on Sep 09 2023 4:41PM EST Results-Findings * * *Final Report* * * DATE OF EXAM: Sep 09 2023 11:49AM CHARLY [id number] - XR LUMBAR 3V AP/LAT/L5-S1 / PROCEDURE REASON: M51.36-DDD (degenerative disc disease), lumbar * * * * Physician Interpretation * * * * EXAMINATION / TECHNIQUE: XR HIP ELISHA 5V PEL+ AP/LAT EA HIP, XR LUMBAR 3V AP/LAT/L5-S1 PATIENT/TECHNOLOGIST PROVIDED HISTORY: BILATERAL HIP PAIN, PT STATES SHE HAS MORE PAIN IN HER LEFT HIP (accession [id number]), DEGENERATIVE DISC DISEASE OF LUMBAR (accession [id number]) CLINICAL INFORMATION ( PROVIDED BY ORDERING CLINICIAN) : Bilateral hip pain Bilateral hip pain COMPARISON: None RESULT: Counting reference: Lumbosacral junction. For the purposes of this report, L4-5 is considered the level of the iliac crest. Anatomic Variants: There are 6 lumbar-type vertebral bodies, the inferior most of which is sacralized. The superiormost nonrib-bearing vertebral body is designated as T13 Normal lumbar lordosis. Mild left convex curvature. No significant spondylolisthesis. Minimal height loss along the T2 superior endplate. Mild disc height loss at T12-T13, T13-L1, and L1-L2. Mild multilevel facet arthropathy. No acute hip/pelvic fracture or dislocation. Hip and sacroiliac joint spaces are preserved bilaterally. Mild degenerative change at the pubic symphysis. Supporting Subjective Information Below: Past Surgical History: PAST SURGICAL HISTORY Procedure Laterality Date EAR SURGERY HX Right Medications: Current Outpatient Medications Medication Sig fluticasone (FLONASE) 50 mcg/actuation nasal spray Use 2 Sprays in each nostril once daily. meloxicam (MOBIC) 15 mg tablet Take 1 tablet by mouth once daily. azelastine 0.1% nasal spray Use 1 [place] in each nostril two times a day. (Patient not taking: Reported on 09/09/2023) triamcinolone (KENALOG IN ORABASE) 0.1 % paste 1 Application by DENTAL route two times a day. (Patient not taking: Reported on 09/09/2023) tacrolimus (PROTOPIC) 0.1 % ointment Apply to affected area two times a day. (Patient not taking: Reported on 07/22/2023) MEDICATION, NON-DATABASE Take 1 tablet by mouth three times a day. GYNOVITE (Patient not taking: Reported on 07/15/2023) atorvastatin (LIPITOR) 20 mg tablet Take 1 tablet by mouth once daily. (Patient not taking: Reported on 07/15/2023) No current facility-administered medications for this visit. Allergies: Lipitor [Atorvastatin], Abby [Fexofenadine Hcl], Claritin [Loratadine], Sulfa (Sulfonamide Antibiotics), and Zyrtec [Cetirizine Hcl] ROS: General (negative for fatigue, malaise, weight loss/gain) HEENT (negative for headache, earache, recent vision changes, sinus pain, sore throat) Respiratory (no recent shortness of breath, hemoptysis) CV (negative for chest tightness, palpitations) Musculoskeletal (see HPI) Psych (no depression, anxiety) This note was partially generated using Indotrading voice recognition system, and there may be some incorrect words, spellings, and punctuation that were not noted in checking the note before saving. Mirella Sanchez PA-C documented in this encounterMarion Hospital04-11-2024 History of Present illness Narrative* Madeline Lackey Tech - 09/09/2023 10:30 AM EDT Radiology Service Progress Note PATIENT NAME: Tiffanie Ramsey DATE OF SERVICE: September 09, 2023 TIME: 10:53 AM PATIENT IDENTITY VERIFICATION COMPLETED USING TWO (2) IDENTIFIERS: Name and Date of confirmedby patient verbally. FALL SCREENING: Has the patient had 2 falls in the last year or 1 fall with injury or currently using an Ambulatory Assistive Device (Walker, Cane, Wheelchair, Crutches, etc.)? No PATIENT GENDER DATA: Female. status: : No status: NO. PATIENT RELEVANT IMPLANT DATA REVIEWED: Not Applicable PATIENT PRESENTS WITH AN IMPLANTABLE OR ATTACHED INSTRUCTIONAL SYSTEMS SPECIALIST: No RADIOLOGY DEPARTMENT: General X-ray: Exam(s) Completed: Pelvis X-Ray: Pelvis with Hip Bilateral andWt. Bearing PERIPHERAL IV DATA: Not applicable SIGNED BY: Huey Whiting September 09, 2023 10:53 AM * Madeline Lackey Tech - 09/09/2023 10:30 AM EDT Radiology Service Progress Note PATIENT NAME: Tiffanie Ramsey DATE OF SERVICE: September 09, 2023 TIME: 11:49 AM PATIENT IDENTITY VERIFICATION COMPLETED USING TWO (2) IDENTIFIERS: Name and Date of confirmedby patient verbally. FALL SCREENING: Has the patient had 2 falls in the last year or 1 fall with injury or currently using an Ambulatory Assistive Device (Walker, Cane, Wheelchair, Crutches, etc.)? No PATIENT GENDER DATA: Female. status: : No status: NO. PATIENT RELEVANT IMPLANT DATA REVIEWED: Not Applicable PATIENT PRESENTS WITH AN IMPLANTABLE OR ATTACHED INSTRUCTIONAL SYSTEMS SPECIALIST: No RADIOLOGY DEPARTMENT: General X-ray: Exam(s) Completed: Spine X-Ray(s): Lumbar AP / LAT / L5-S1 PERIPHERAL IV DATA: Not applicable SIGNED BY: Huey Whiting September 09, 2023 11:49 AM documented in this encounterMarion Hospital03-07-2024 History of Present illness Narrative* Alli Hutchinson MD, PhD - 08/05/2023 1:36 PM EST SUBJECTIVE: HISTORY OF PRESENT ILLNESS Patient presents with: Ear Problem: Est. B/l ear pressure, tinnitus and crackling. Denies otalgia and otorrhea. Mouth/Lip Problem: Tongue feels burnt. From visit 2019: Ear Problem: New. former pt 2014. Lt ear ear aches intermittantly since Jul. aggravated with water getting in the ear. sinus pressure/pain. tx: flonase. Robitussin cold. TM perf Lt ear. The patient previously had urder lay graft RIGHT ear in 2004, followed by Canal wall skin tympanoplasty revision in 2005. this had held up. Subsequently she developed a small perforation in the LEFT ear. Evlauation in 2013 demonstrated very little loss of hearing and no infection. PAST MEDICAL HISTORY PAST MEDICAL HISTORY Diagnosis Date COVID PAST SURGICAL HISTORY PAST SURGICAL HISTORY Procedure Laterality Date EAR SURGERY HX Right SYMPTOM REVIEW: Symptom review is unremarkable except as indicated in the above history of present illness. OBJECTIVE: PHYSICAL EXAM: GENERAL: The patient is seated in the examination chair appearing well with normal skin turgor and color, and body habitus. There are no obvious deformities and grooming is adequate. Tiffanie Ramsey has an adequate ability to communicate. EARS: RIGHT: Canal clear, TM intact mobile free of infection or effusion. Graft in place. LEFT: Canal clear, TM has small perforation, central dry. NOSE: Septum: Aligned Turbinates: Normal Mucosa: Mildly congested MOUTH:Examination of the oral mucosa, hard and soft palates, and tongue demonstrates no mucosal abnormality, masses or other lesions. Tip of tongue is sensitive. ORAL PHARYNX: Without mucosal abnormality, swelling, erythema or masses. Tonsils: WNL TEETH: Dentition intact, bite is adequate LIPS, GUMS: Without abnormality NASOPHARYNX: Clear LARYNX: Normal crepitus,non-displaced. VOCAL CORDS: Mirror exam, mobile, without lesions or erythema VOICE: Normal NECK: Overall appearance is symmetrical. Supple, without lymphadenopathy THYROID:Without enlargement, tenderness or masses. EYES: PERRLA, EOM, Without nystagmus Encounter Diagnosis ICD-10-CM 1. Nasal congestion R09.81 azelastine 0.1% nasal spray 2. Glossitis K14.0 triamcinolone (KENALOG IN ORABASE) 0.1 % paste 3. Central perforation of tympanic membrane of left ear H72.02 Follow up:prn Alli Hutchinson MD, PhD documented in this encounterMarion Hospital02-28-2024 Miscellaneous Notes* Telephone Encounter - Glendy Motta MA - 07/28/2023 1:23 PM EST Patient is informed Glendy Motta MA * Telephone Encounter - Glendy Motta MA - 07/28/2023 1:21 PM EST ----- Message from Jeremy Ramirez APRN.PANAMA HAT HYDRAULIC PRESS OPERATOR sent at 07/28/2023 12:21 PM EST ----- Bone density shows osteopenia. Please review the following to prevent further bone loss GENERAL RECOMMENDATIONS FOR PREVENTION OF BONE LOSS: 1. 1200 mg - 1500 mg calcium per day if no history of renal calculi for adults 50 years and over. 2. 800 - 1000 International Units of vitamin D3 per day if no history of renal calculi for adults 50 years and over. 3. Weight bearing exercise 4. Advise against smoking and recommend smoking cessation if appropriate. 5. Avoid excessive use of caffeine, soft drinks, and alcoholic beverages. documented in this encounterMarion Hospital02-27-2024 History of Present illness Narrative* Jose Rafael Palomo RT(R) - 07/27/2023 10:00 AM EST Radiology Service Progress Note PATIENT NAME: Tiffanie Ramsey DATE OF SERVICE: July 27, 2023 TIME: 10:19 AM PATIENT IDENTITY VERIFICATION COMPLETED USING TWO (2) IDENTIFIERS: Name and Date of confirmedby patient verbally. FALL SCREENING: Has the patient had 2 falls in the last year or 1 fall with injury or currently using an Ambulatory Assistive Device (Walker, Cane, Wheelchair, Crutches, etc.)? No PATIENT GENDER DATA: Female. status: : No status: N/A PATIENT RELEVANT IMPLANT DATA REVIEWED: Not Applicable PATIENT PRESENTS WITH AN IMPLANTABLE OR ATTACHED INSTRUCTIONAL SYSTEMS SPECIALIST: No RADIOLOGY DEPARTMENT: Bone Density PERIPHERAL IV DATA: Not applicable SIGNED BY: SERA Garrison) July 27, 2023 10:19 AM documented in this encounterMarion Hospital02-27-2024 NoteHNO ID: [id number] Author: JOSE RAFAEL PALOMO RT (R) Service: Radiology Author Type: Technologist Type: Progress Notes Filed: 07/27/2023 10:19 Note Text: Radiology Service Progress Note PATIENT NAME: Tiffanie Ramsey DATE OF SERVICE: July 27, 2023 TIME: 10:19 AM PATIENT IDENTITY VERIFICATION COMPLETED USING TWO (2) IDENTIFIERS: Name and Date of confirmed by patient verbally. FALL SCREENING: Has the patient had 2 falls in the last year or 1 fall with injury or currently using an Ambulatory Assistive Device (Walker, Cane, Wheelchair, Crutches, etc.)? No PATIENT GENDER DATA: Female. status: : No status: N/A PATIENT RELEVANT IMPLANT DATA REVIEWED: Not Applicable PATIENT PRESENTS WITH AN IMPLANTABLE OR ATTACHED INSTRUCTIONAL SYSTEMS SPECIALIST: No RADIOLOGY DEPARTMENT: Bone Density PERIPHERAL IV DATA: Not applicable SIGNED BY: RT Meli(Roderick) July 27, 2023 10:19 [facility]02-22-2024 Instructions* Patient Instructions* Angel Catherine APRN.PANAMA HAT HYDRAULIC PRESS OPERATOR - 07/22/2023 10:17 AM EST ASSESSMENT/PLAN: 1. Acute sinusitis, recurrence not specified, unspecified location - ICD9: 461.9, ICD10: J01.90 - Will begin treatment with as per antibiotic as written, see orders - The patient should also be given OTC decongestants prn and OTC cough and cold meds as needed for the first 5-7 days of treatment. - Supportive care with plenty of fluids, rest, and analgesia prn. - STREP A MOLECULAR (POC) - AMOXICILLIN 875 MG-POTASSIUM CLAVULANATE 125 MG TABLET Angel Catherine APRN.GIANNA -I have reviewed and updated with the patient: allergies, VS, current medications, Past Medical History,Past Surgical History,Past Family Medical History, Past Social History. - Patient education provided today - Discussed with patient medications that are indicated and how to use the medications and what thepotential side effects are. - Warning signs of worsening condition explained to patient -Instructed to follow up with PCP if symptoms not improving in next 2-3 days - Patient left in stable condition after questions answered and patient verbalizes understanding - Instructed to go to Emergency Department right away with any severe worsening chest pain, shortness of breath, headache, dizziness, weakness, numbness,leg swelling , tingling, problems walking or speaking or any other concerning symptoms documented in this encounterMarion Hospital02-22-2024 History of Present illness Narrative* Angel Catherine APRN.CNP - 07/22/2023 10:04 AM EST This note was created using ABA Englishter. Subjective Tiffanie Ramsey is a 63 year old female. Sore Throat (Sinus drainage,headache x1 wk) The history is provided by the patient. Sore Throat This is a new problem. Associated symptoms include congestion. Pertinent negatives include no coughing or shortness of breath. Review of Systems Constitutional: Negative for chills, fatigue and fever. HENT: Positive for congestion, postnasal drip, sinus pressure and sore throat. Eyes: Negative. Respiratory: Negative for cough, shortness of breath and wheezing. Cardiovascular: Negative. Objective BP 128/94 (BP Site: Left Arm, BP Position: Sitting) Pulse 85 Temp 36.4 C (97.5 F) (Temporal) Resp 16 Wt 61.6 kg (135 lb 12.9 oz) SpO2 97% BMI 24.84 kg/m Physical Exam Vitals and nursing note reviewed. Constitutional: Appearance: Normal appearance. HENT: Right Ear: Ear canal and external ear normal. Tympanic membrane is erythematous. Left Ear: Ear canal and external ear normal. Tympanic membrane is scarred and erythematous. Nose: Congestion present. Right Sinus: Maxillary sinus tenderness present. Left Sinus: Maxillary sinus tenderness present. Mouth/Throat: Lips: [place]. Mouth: Mucous membranes are moist. Pharynx: Oropharynx is clear. Posterior oropharyngeal erythema present. Eyes: Conjunctiva/sclera: Conjunctivae normal. Cardiovascular: Rate and Rhythm: Regular rhythm. Heart sounds: Normal heart sounds. Pulmonary: Effort: Pulmonary effort is normal. Breath sounds: Normal breath sounds. Lymphadenopathy: Cervical: No cervical adenopathy. Neurological: Mental Status: She is alert. Assessment and Plan ASSESSMENT/PLAN: 1. Acute sinusitis, recurrence not specified, unspecified location - ICD9: 461.9, ICD10: J01.90 - Will begin treatment with as per antibiotic as written, see orders - The patient should also be given OTC decongestants prn and OTC cough and cold meds as needed for the first 5-7 days of treatment. - Supportive care with plenty of fluids, rest, and analgesia prn. - STREP A MOLECULAR (POC) - AMOXICILLIN 875 MG-POTASSIUM CLAVULANATE 125 MG TABLET Angel Catherine APRN.PANAMA HAT HYDRAULIC PRESS OPERATOR -I have reviewed and updated with the patient: allergies, VS, current medications, Past Medical History,Past Surgical History,Past Family Medical History, Past Social History. - Patient education provided today - Discussed with patient medications that are indicated and how to use the medications and what thepotential side effects are. - Warning signs of worsening condition explained to patient -Instructed to follow up with PCP if symptoms not improving in next 2-3 days - Patient left in stable condition after questions answered and patient verbalizes understanding - Instructed to go to Emergency Department right away with any severe worsening chest pain, shortness of breath, headache, dizziness, weakness, numbness,leg swelling , tingling, problems walking or speaking or any other concerning symptoms documented in this encounterMarion Hospital02-15-2024 Instructions* Patient Instructions* Dominique Fisher MD - 07/15/2023 1:40 PM EST You had Fine needle aspiration of left thyroid nodule. 1) If there is soreness to touch or swallowing, can use ice over the area as needed 2) Can use Tylenol 500 mg every 6-8 hrs as needed (avoid using Ibuprofen,Aleeve as these can cause increased bleeding) 3) If you develop intense pain and/or swelling at the site of biopsy, please go to the ER 4) Results with be available in one week. If you do not hear from us in that time frame, please call the office for an update. documented in this encounterMarion Hospital02-15-2024 History of Present illness Narrative* Dominique Fisher MD - 07/15/2023 1:17 PM EST Fine Needle Aspiration(FNA) Biopsy of thyroid nodule Tiffanie Ramsey was identified by name and date, acknowledges here to have a Fine Needle Aspiration(FNA) of left sided lower thyroid nodule performed. Risks, benefits and alternatives D/W patient by: Dr Fisher Time/Date: July 15, 2023 1:17 PM PCP: Jeremy Ramirez APRN. PANAMA HAT HYDRAULIC PRESS OPERATOR Seen by [facility] for initial consultation on 05/25/2023 for multinodular goiter Blood thinners: no Discussed the risk and benefits of the procedure in detail. Explained that it is done under US guidance. Usually we do 3 needle passess for each nodule to ensure adequate sample. Explained the five possible outcomes from the pathology: 1. benign 2. Malignant 3. Suspicious for malignancy 4. Insufficient sample 5. Follicular neoplasm Patient verbalised understanding. Informed consent obtained Time out procedure performed UNIVERSAL PROTOCOL / SAFETY CHECKLIST Procedure to be Performed: 1.6 cm of left lower thyroid nodule Sign In: A Moment of CARE was completed. Personnel directly involved with the procedure wore the appropriate PPE (Personal Protective Equipment). Patient/Surrogate Stated/Verified: PATIENT VERIFIED(optional for EMERGENT procedures): Patient name, Date of , Relevant allergies, and The intended procedure Time Out Communication: Intended patient and procedure match the source documents. Consent documented and matches the intended procedure. Sign Out: SIGN OUT (optional for EMERGENT procedures): All specimen containers correctly labeled. Dominique Fisher MD Procedure: Performed under ultrasound guidance Skin was prepped with alcohol swabs Ice or Lidocaine cream or both was used to numb the skin FNA Bx X 4 performed under U/S guidance for 1.6 cm left sided nodule by: Dr. Fisher During the aspiration needle was observed inside the nodule on 4 passess. Patient tolerated the procedure well Complications: NONE Character of Aspirate: On the 3 needle passess small amount of bloody liquid was obtained. No bloory aspirate seen on one needle pass Sign out communication: Patient was given instructions regarding any complications that may arise. Impression and Suggested Follow-up: Results will be communicated to the patient by Dr Fisher and plans for management and follow up will be made based on these results. Dominique Fisher MD Endocrinology Associate Staff [facility] [place] documented in this encounterMarion Hospital12-13-2023 Miscellaneous Notes* Telephone Encounter - Jenny Van MA - 05/12/2023 12:04 PM EST Pt called she is willing to start a statin that can be sent to [facility] [place] Jenny Van MA * Telephone Encounter - Jenny Van MA - 05/11/2023 4:14 PM EST Called pt left with results and for pt to call the office back to let us know if she is interested in taking a statin Jenny Van MA * Telephone Encounter - Jenny Van MA - 05/11/2023 4:13 PM EST ----- Message from Jeremy Ramirez APRN.PANAMA HAT HYDRAULIC PRESS OPERATOR sent at 05/09/2023 7:25 PM EST ----- UA unremarkable Vit D Is low. If she is taking vit D I want her to increase her dose by 1000 units daily Lipids TC and LDL bad chol is very elevated. I recommend a statin Hiv and hep c neg Cbc and cmp wnl Thyroid wnl Inflammation markers normal, RF negative documented in this encounterMarion Hospital12-11-2023 History of Present illness Narrative* Madeline Hinojosa APRN.PANAMA HAT HYDRAULIC PRESS OPERATOR - 05/10/2023 10:28 AM EST This note was created using Strandsriter. Subjective Tiffanie Ramsey is a 62 year old female. 62 year old female with PMH presents for illness. Acute onset one week ago Sinus like symptoms. Started with sore throat + post nasal drainage +nausea related to that +sinus pressure +cough , non productive. +chills +body aches +fatigue Denies fever Has used Mucinex Benadryl FlonASE States sinus symptoms seem to be worsening and that is why she presents today. The history is provided by the patient. No sign language teacher was used. Sinus Problem This is a new problem. The current episode started 1 to 4 weeks ago. The problem occurs constantly.The problem has been gradually worsening. Associated symptoms include congestion, coughing, fatigue, headaches, a sore throat and swollen glands. Pertinent negatives include no abdominal pain, anorexia, arthralgias, change in bowel habit, chest pain, chills, diaphoresis, fever, joint swelling, myalgias, nausea, neck pain, numbness, rash, urinary symptoms, vertigo, visual change, vomiting or weakness. Nothing aggravates the symptoms. Treatments tried: see HPI. The treatment provided mild relief. PAST MEDICAL HISTORY Diagnosis Date COVID PAST SURGICAL HISTORY Procedure Laterality Date EAR SURGERY HX Right ALLERGIES Abby [Fexofenadine Hcl], Claritin [Loratadine], Sulfa (Sulfonamide Antibiotics), and Zyrtec [Cetirizine Hcl] MEDICATIONS fluticasone (FLONASE) 50 mcg/actuation nasal spray Use 2 Sprays in each nostril once daily. amoxicillin-clavulanate potassium (AUGMENTIN) 875-125 mg per tablet Take 1 tablet by mouth two times a day for 5 days. FAMILY HISTORY Problem Relation Age of Onset Hypothyroidism Mother Hyperlipidemia Mother GERD Mother other (stomach cancer) Father stomach Hypertension Brother Hyperlipidemia Brother Social History Tobacco Use Smoking status: Never Smokeless tobacco: Never Substance Use Topics Alcohol use: Yes Comment: rare Review of Systems Constitutional: Positive for fatigue. Negative for chills, diaphoresis and fever. HENT: Positive for congestion, ear pain, postnasal drip, sinus pressure, sinus pain and sore throat. Eyes: Negative for photophobia, pain, discharge, redness and itching. Respiratory: Positive for cough. Negative for apnea and chest tightness. Cardiovascular: Negative for chest pain. Gastrointestinal: Negative for abdominal pain, anorexia, change in bowel habit, nausea and vomiting. Musculoskeletal: Negative for arthralgias, joint swelling, myalgias and neck pain. Skin: Negative for color change, pallor and rash. Allergic/Immunologic: Negative for environmental allergies, food allergies and immunocompromised state. Neurological: Positive for headaches. Negative for dizziness, vertigo, facial asymmetry, weakness and numbness. Hematological: Negative for adenopathy. Does not bruise/bleed easily. Psychiatric/Behavioral: Negative for agitation and behavioral problems. Objective BP 128/72 Pulse 82 Temp 37.1 C (98.8 F) Resp 16 Wt 60.3 kg (133 lb) SpO2 97% BMI 24.33 kg/m Physical Exam Vitals and nursing note reviewed. Constitutional: General: She is not in acute distress. Appearance: Normal appearance. She is normal weight. She is not ill-appearing, toxic-appearing or diaphoretic. HENT: Head: Normocephalic and atraumatic. Comments: +maxillary sinus pressure Right Ear: Ear canal and external ear normal. Left Ear: Ear canal and external ear normal. Ears: Comments: Bilateral TM's slightly erythematous Nose: Congestion present. No rhinorrhea. Mouth/Throat: Mouth: Mucous membranes are moist. Pharynx: Posterior oropharyngeal erythema (post nasal drainage noted) present. No oropharyngeal exudate. Eyes: General: Right eye: No discharge. Left eye: No discharge. Extraocular Movements: Extraocular movements intact. Conjunctiva/sclera: Conjunctivae normal. Pupils: Pupils are equal, round, and reactive to light. Cardiovascular: Rate and Rhythm: Normal rate and regular rhythm. Pulses: Normal pulses. Heart sounds: Normal heart sounds. No murmur heard. No friction rub. Pulmonary: Effort: Pulmonary effort is normal. No respiratory distress. Breath sounds: Normal breath sounds. No stridor. No wheezing, rhonchi or rales. Chest: Chest wall: No tenderness. Abdominal: General: Abdomen is flat. There is no distension. Palpations: Abdomen is soft. There is no mass. Tenderness: There is no abdominal tenderness. There is no right CVA tenderness, left CVA tenderness, guarding or rebound. Hernia: No hernia is present. Musculoskeletal: General: No swelling, tenderness, deformity or signs of injury. Normal range of motion. Cervical back: Normal range of motion and neck supple. No rigidity. Right lower leg: No edema. Left lower leg: No edema. Lymphadenopathy: Cervical: No cervical adenopathy. Skin: General: Skin is warm and dry. Capillary Refill: Capillary refill takes less than 2 seconds. Coloration: Skin is not jaundiced or pale. Findings: No bruising, erythema, lesion or rash. Neurological: General: No focal deficit present. Mental Status: She is alert and oriented to person, place, and time. Cranial Nerves: No cranial nerve deficit. Sensory: No sensory deficit. Motor: No weakness. Coordination: Coordination normal. Gait: Gait normal. Psychiatric: Mood and Affect: Mood normal. Behavior: Behavior normal. Thought Content: Thought content normal. Judgment: Judgment normal. Assessment and Plan ASSESSMENT/PLAN: 1. Rhinosinusitis - ICD9: 473.9, ICD10: J32.9 (primary diagnosis) - Will begin treatment with as per antibiotic as written, see orders - The patient should also be given OTC cough and cold meds as needed, warm salt water gargles, throat lozenges and/or OTC throat spray as needed, and nasal saline gtts and suction prn for the first 5-7 days of treatment. - Supportive care with plenty of fluids, rest, and analgesia prn. - Follow up in 3-5 days if symptoms persist or worsen. 2. Acute otitis media, bilateral - ICD9: 382.9, ICD10: H66.93 - Will begin treatment with as per antibiotic as written, see orders - The patient should also be given OTC cough and cold meds as needed, warm salt water gargles, throat lozenges and/or OTC throat spray as needed, and nasal saline gtts and suction prn for the first 5-7 days of treatment. - Supportive care with plenty of fluids, rest, and analgesia prn. - Follow up in 3-5 days if symptoms persist or worsen. Madeline Hinojosa APRN.PANAMA HAT HYDRAULIC PRESS OPERATOR documented in this encounterMarion Hospital12-07-2023 Instructions* Patient Instructions* Jeremy Ramirez APRN.GIANNA - 05/06/2023 10:36 AM EST BONE MINERAL DENSITY PATIENT INSTRUCTIONS Bone mineral density testing measures the amount of calcium in certain parts of your bones. This information determines how strong your bones are. The test is used to detect osteoporosis, a disease in which the bone's mineral content and density are low, increasing a person's risk of fractures. Thelumbar spine (lower back) and the hip are the skeletal sites usually examined. For the test, remember that: 1. You cannot take this test if you are . 2. Eat a normal diet on the day of the test. 3. Take your medications as you normally would. 4. DO NOT take calcium supplements (such as Tums) for 24 hours before the test. 5. On the day of the test, leave valuables (jewelry or credit cards) at home. 6. The test should be performed prior to oral, rectal or IV contrast studies, or at least 7 days after any of these studies. For the test, you may be asked to wear a hospital gown. You will lie on your back, on a padded table, in a comfortable position. Generally, you can resume your usual activities immediately. ASSESSMENT/PLAN: 1. Chronic fatigue - ICD9: 780.79, ICD10: R53.82 (primary diagnosis) - chronic since COVID in 2021 2. Thyroid nodule - ICD9: 241.0, ICD10: E04.1 - US THYROID/PARATHYROID 3. Arthralgia, unspecified joint - ICD9: 719.40, ICD10: M25.50 - C-REACTIVE PROTEIN (CRP) - SED RATE WESTERGREN - RHEUMATOID FACTOR BL 4. Vitamin D deficiency - ICD9: 268.9, ICD10: E55.9 - VITAMIN D 25 HYDROXY 5. Post-menopausal - ICD9: V49.81, ICD10: Z78.0 - DXA-AXIAL SKELETON 6. Screening for deficiency anemia - ICD9: V78.1, ICD10: Z13.0 - CBC 7. Encounter for screening for diabetes mellitus - ICD9: V77.1, ICD10: Z13.1 - COMP METABOLIC PANEL 8. Screening for lipid disorders - ICD9: V77.91, ICD10: Z13.220 - LIPID PANEL BASIC 9. Screening for HIV (human immunodeficiency virus) - ICD9: V73.89, ICD10: Z11.4 - HIV 1 2 COMBO(AG/AB),WITH REFLEX TO DIFFERENTIATION 10. Screening for thyroid disorder - ICD9: V77.0, ICD10: Z13.29 - TSH BLD - T4 FREE/FREE THYROX 11. Encounter for hepatitis C screening test for low risk patient - ICD9: V73.89, ICD10: Z11.59 - HEPATITIS C ANTIBODY IA WITH CONFIRMATION 12. Screening for blood or protein in urine - ICD9: V82.9, ICD10: Z13.89 - URINALYSIS WITH MICROSCOPIC, REFLEX CULTURE Jeremy Ramirez APRN.PANAMA HAT HYDRAULIC PRESS OPERATOR documented in this encounterMarion Hospital12-07-2023 History of Present illness Narrative* Jeremy Ramirez APRN.PANAMA HAT HYDRAULIC PRESS OPERATOR - 05/06/2023 10:18 AM EST This note was created using Strandsriter. Subjective Tiffanie Ramsey is a 62 year old female here today for concerns regarding fatigue. Previous PCP Dr Piero Teixeira at . H COVID, vertigo, thyroid nodules. She does not take any prescribed medications. She is here with concerns for fatigue. She reports she was always energetic and never sat down. States she was always busy. She states she now she can only stay active for 4 hours and then she feels exhausted. States she goes for a brisk walk and it knocks her out. States it started after having COVID in 03/21. States she was feeling better until she got her 4th COVID booster this fall in February. Reports since then her energy is gone. States she has had joint pains as well. States her sinuses are always draining since having COVID. States will have an occasional cough. She has appt with [facility] program on 05/18/23. She does take flonase nasal spray as needed. Thyroid nodule: reports she follows with endo. She has an appt with [facility] delivery driver/supervisor to establish care with DR Fisher on 05/25/23. Vertigo: states she will have an episode about once a month. She does at home Dina which relieves her symptoms. Preventative: she completed her flu and COVID vaccines. She is getting her RSV shot today at pharmacy. Last colonoscopy 3 yrs ago. She reports she goes every 5 yrs. She goes to [facility] [place]. Had pap in November. She orders her mammogram. Last mammogram 11/2022 normal. ALLERGIES Allergen Reactions Abby [Fexofenadi* Intolerance Hyperactivity Claritin [Loratadin* Intolerance Hyperactivity Sulfa (Sulfonamide * Zyrtec [Cetirizine * Intolerance Drowsiness Current Outpatient Medications Medication Sig Dispense Refill pantoprazole DR (PROTONIX) 40 mg tablet Take by mouth. (Patient not taking: Reported on 05/29/2022) fluticasone (FLONASE) 50 mcg/actuation nasal spray Use 2 Sprays in each nostril once daily. (Patient not taking: Reported on 03/02/2022) 3 Bottle 3 fluticasone (FLONASE) 50 mcg/actuation nasal spray Use 2 Sprays in each nostril once daily. 3 Bottle 3 No current facility-administered medications for this visit. ACTIVE PROBLEM LIST Central Perforation of Tympanic Membrane Impacted Cerumen Otalgia, Unspecified Plantar Fasciitis Pain in Limb PAST MEDICAL HISTORY Diagnosis Date COVID PAST SURGICAL HISTORY Procedure Laterality Date EAR SURGERY HX Right Social History Tobacco Use Smoking status: Never Smokeless tobacco: Never Substance Use Topics Alcohol use: Yes Comment: rare Family History Problem Relation Age of Onset Cancer Father stomach Review of Systems Constitutional: Positive for fatigue. Negative for activity change, appetite change, chills, fever and unexpected weight change. HENT: Positive for congestion, ear pain and postnasal drip. Negative for rhinorrhea, sinus pressure, sinus pain, sore throat, tinnitus and voice change (ecg). Chronic has follow up with ENT Respiratory: Negative for cough, chest tightness, shortness of breath and wheezing. Cardiovascular: Negative for chest pain, palpitations and leg swelling. Gastrointestinal: Negative for diarrhea, nausea and vomiting. Genitourinary: Negative for difficulty urinating, dysuria, flank pain and frequency. Musculoskeletal: Positive for arthralgias. Hips, shoulders Generalized Neurological: Positive for dizziness. Negative for headaches. Reports hx of vertigo. She does dina maneuver monthly for this. Hematological: Does not bruise/bleed easily. Psychiatric/Behavioral: Negative for dysphoric mood and sleep disturbance. The patient is not nervous/anxious. Objective BP 122/76 (BP Site: Left Arm, BP Position: Sitting, BP Cuff Size: Regular Adult) Pulse 70 Temp 36.6 C (97.8 F) (Oral) Resp 18 Ht 157.5 cm (5' 2) Wt 59.8 kg (131 lb 12.8 oz) SpO2 98% BMI 24.11 kg/m Physical Exam Vitals and nursing note reviewed. Constitutional: General: She is not in acute distress. Appearance: Normal appearance. She is not ill-appearing. HENT: Head: Normocephalic and atraumatic. Right Ear: Tympanic membrane, ear canal and external ear normal. Left Ear: Tympanic membrane, ear canal and external ear normal. Tenderness present. No mastoid tenderness. Nose: Nose normal. No congestion or rhinorrhea. Right Sinus: No maxillary sinus tenderness or frontal sinus tenderness. Left Sinus: No maxillary sinus tenderness or frontal sinus tenderness. Mouth/Throat: Lips: [place]. Mouth: Mucous membranes are moist. Pharynx: Oropharynx is clear. Uvula midline. Posterior oropharyngeal erythema present. Eyes: Pupils: Pupils are equal, round, and reactive to light. Neck: Thyroid: No thyroid mass or thyromegaly. Vascular: No carotid bruit. Trachea: Trachea and phonation normal. Cardiovascular: Rate and Rhythm: Normal rate and regular rhythm. Pulses: Normal pulses. Carotid pulses are 2+ on the right side and 2+ on the left side. Radial pulses are 2+ on the right side and 2+ on the left side. Heart sounds: Normal heart sounds, S1 normal and S2 normal. No murmur heard. Pulmonary: Effort: Pulmonary effort is normal. No respiratory distress. Breath sounds: Normal breath sounds. No decreased breath sounds, wheezing, rhonchi or rales. Abdominal: General: Abdomen is flat. Bowel sounds are normal. Palpations: Abdomen is soft. Tenderness: There is no abdominal tenderness. Musculoskeletal: Cervical back: Normal range of motion and neck supple. Right lower leg: No edema. Left lower leg: No edema. Lymphadenopathy: Cervical: No cervical adenopathy. Skin: General: Skin is warm and dry. Neurological: Mental Status: She is alert and oriented to person, place, and time. Psychiatric: Attention and Perception: Attention and perception normal. Mood and Affect: Affect normal. Mood is anxious. Speech: Speech is rapid and pressured. Behavior: Behavior normal. Behavior is cooperative. Thought Content: Thought content normal. Cognition and Memory: Cognition and memory normal. Judgment: Judgment normal. ASSESSMENT/PLAN: 1. Chronic fatigue - ICD9: 780.79, ICD10: R53.82 (primary diagnosis) - chronic since COVID in 2021 - unremarkable exam. Will check labs as ordered - follow up with [facility] [facility] 2. Thyroid nodule - ICD9: 241.0, ICD10: E04.1 - pt reports hx of nodules. She has appt with endo scheduled. Will order US and labs - US THYROID/PARATHYROID 3. Arthralgia, unspecified joint - ICD9: 719.40, ICD10: M25.50 - all over body aches, worsened since recent COVID vaccine. Will check labs and inflammation markers. - C-REACTIVE PROTEIN (CRP) - SED RATE WESTERGREN - RHEUMATOID FACTOR BL 4. Vitamin D deficiency - ICD9: 268.9, ICD10: E55.9 - VITAMIN D 25 HYDROXY 5. Post-menopausal - ICD9: V49.81, ICD10: Z78.0 - DXA-AXIAL SKELETON 6. Screening for deficiency anemia - ICD9: V78.1, ICD10: Z13.0 - CBC 7. Encounter for screening for diabetes mellitus - ICD9: V77.1, ICD10: Z13.1 - COMP METABOLIC PANEL 8. Screening for lipid disorders - ICD9: V77.91, ICD10: Z13.220 - LIPID PANEL BASIC 9. Screening for HIV (human immunodeficiency virus) - ICD9: V73.89, ICD10: Z11.4 - HIV 1 2 COMBO(AG/AB),WITH REFLEX TO DIFFERENTIATION 10. Screening for thyroid disorder - ICD9: V77.0, ICD10: Z13.29 - TSH BLD - T4 FREE/FREE THYROX 11. Encounter for hepatitis C screening test for low risk patient - ICD9: V73.89, ICD10: Z11.59 - HEPATITIS C ANTIBODY IA WITH CONFIRMATION 12. Screening for blood or protein in urine - ICD9: V82.9, ICD10: Z13.89 - URINALYSIS WITH MICROSCOPIC, REFLEX CULTURE Jeremy Ramirez APRN.GIANNA documented in this encounterMarion Hospital01-04-2023 Miscellaneous Notes* Telephone Encounter - Nelida Castellon - 06/03/2022 12:21 PM EST Patient given results and verbalized understanding of instructions given. Nelida Castellon * Telephone Encounter - Madeline Hinojosa APRN.CNP - 06/03/2022 11:58 AM EST Will call in Amoxicillin for patient. If her symptoms are not improving with Amoxicillin, she will need to be reevaluated. * Telephone Encounter - Yu Mccormack RN - 06/03/2022 11:52 AM EST Patient asked this message be sent to since she has never seen her pcp and was seen in . Reports she does not have insurance. Reports she was prescribed doxycycline for elisha ear pain on 05-29 in [place] with no improvement. One ear still feels plugged and the other ear had pain yesterday. Reports the doxycycline is causing abdominal bloating and pain, and occassional dizziness. Reports she missed a dose and these symptoms went away. Asking if provider in would send amoxicillin to her pharmacy, [facility] in [place]. States this usually works for her. Please advise patient. documented in this encounterMarion Hospital12-30-2022 History of Present illness Narrative* Lissette Kolb APRN.PANAMA HAT HYDRAULIC PRESS OPERATOR - 05/29/2022 8:42 AM EST CC: Patient presents with: Ear Problem: Bilateral ear pain x 1 month HPI: Tiffanie Ramsey is a 62 year old female who presents to the office with complaint of head congestion, sinus symptoms, and ear symptoms for a month. Symptoms are staying the same. Associated symptoms includes nasal congestion and facial pain/pressure. Denies headache, body aches, fever, nausea, vomiting , and diarrhea. Treatments tried include nothing so far. with no relief of symptoms. Sick contacts: unknown. History of asthma, frequent episodes of bronchitis, chronic bronchitis, bronchiectasis or COPD: No Smoker: No Seasonal/environmental allergies: No The ROS is otherwise negative. The patient's pmh, medications, allergies, and past visits are reviewed. PHYSICAL EXAM: BP 118/82 Pulse 71 Temp 36.4 C (97.6 F) (Tympanic) Resp 18 Wt 57.4 kg (126 lb 9.6 oz) SpO2 100% BMI 23.16 kg/m General appearance: alert, cooperative, pleasant, in no acute distress Head: Normocephalic Eyes: EOM's intact, conjunctiva pink and moist, no icterus, sclera white, non-injected Ears: Right ear: External ear/canal- Normal, TM - clear with good landmarks. Left ear: External ear/canal- Normal, TM - clear with good landmarks Oropharynx:moist without lesions, No erythema, exudates or tonsillar hypertrophy. Heart: Negative. RRR without obvious murmur, gallop, or rubs. No ectopy. Lungs: clear to auscultation, without rales or wheeze, good air exchange History reviewed. No pertinent past medical history. No past surgical history on file. ALLERGIES Abby [Fexofenadine Hcl], Claritin [Loratadine], Sulfa (Sulfonamide Antibiotics), and Zyrtec [Cetirizine Hcl] MEDICATIONS fluticasone (FLONASE) 50 mcg/actuation nasal spray Use 2 Sprays in each nostril once daily. doxycycline monohydrate 100 mg tablet Take 1 tablet by mouth twice daily for [address] (PROTONIX) 40 mg tablet Take by mouth. (Patient not taking: Reported on 05/29/2022) fluticasone (FLONASE) 50 mcg/actuation nasal spray Use 2 Sprays in each nostril once daily. (Patient not taking: Reported on 03/02/2022) No family history on file. Social History Tobacco Use Smoking status: Never Smokeless tobacco: Never Substance Use Topics Alcohol use: Yes Comment: rare ASSESSMENT/PLAN: 1. Rhinosinusitis - ICD9: 473.9, ICD10: J31.0, J32.9 - DOXYCYCLINE MONOHYDRATE 100 MG TABLET Prescription instructions reviewed with patient as applicable. Potential red flag symptoms discussed with the patient. Reviewed appropriate action plan to take if red flag symptoms occur. Patient agreeable to treatment plan. Lissette Kolb APRN.GIANNA documented in this encounterMarion Hospital10-04-2022 Miscellaneous Notes* Telephone Encounter - Yadi Giles LPN - 03/03/2022 9:39 AM EDT Patient notified and verbalized understanding of instructions given.Yadi Giles LPN * Telephone Encounter - Yadi Giles LPN - 03/03/2022 9:39 AM EDT ----- Message from Muna Carias APRN.GIANNA sent at 03/03/2022 9:15 AM EDT ----- Please advise patient of positive COVID test. The CDC recommends that people refrain from work and isolate themselves until the following criteria are met: At least 24 hours have passed since last fever without the use of fever-reducing medications Other symptoms have improved At least 5 days have passed since symptoms first appeared; then wear a mask for an additional 5 days. If you have had symptoms less than 5 days and interested in anti-viral medication treatment, pleasecontact your PCP for a virtual appointment or schedule an appointment with [facility]. documented in this encounterMarion Hospital10-03-2022 History of Present illness Narrative* Fred Her MD - 03/02/2022 7:31 PM EDT Patient presents with: Covid19 Concern: Exposure, GRAHAM, nasal congestion, ELISHA ear pain, faitgue x1 week HPI: Feeling sick for 3 days. Her has COVID currently. She tested positive today. Positive symptoms: Earache, Nasal Congestion, Rhinorrhea, Malaise, Fatigue, Headache, Cough, Sore throat, Chills, Negative symptoms: Shortness of breath, Fever, Vomiting, Diarrhea, OTC: Mucinex, tylenol. Had fourth dose of [employer] COVID-19 vaccine February 26 (bivalent booster). MEDICATIONS: Current Outpatient Medications Medication Sig pantoprazole DR (PROTONIX) 40 mg tablet Take by mouth. fluticasone (FLONASE) 50 mcg/actuation nasal spray Use 2 Sprays in each nostril once daily. fluticasone (FLONASE) 50 mcg/actuation nasal spray Use 2 Sprays in each nostril once daily. (Patient not taking: Reported on 03/02/2022) No current facility-administered medications for this visit. ALLERGIES: ALLERGIES Allergen Reactions Abby [Fexofenadi* Intolerance Hyperactivity Claritin [Loratadin* Intolerance Hyperactivity Sulfa (Sulfonamide * Zyrtec [Cetirizine * Intolerance Drowsiness VITALS: BP 122/80 Pulse 78 Temp 37.8 C (100.1 F) Resp 18 Wt 58.2 kg (128 lb 6.4 oz) SpO2 98% BMI 23.48 kg/m PHYSICAL EXAM: GEN: ill appearing HEENT: PERRL, EOMI, conjunctiva clear Ears: canals clear. RTM with erythema and purulent effusion. LTM with retraction but no effusion. Sinuses: non-tender frontal sinus, non-tender maxillary sinuses Throat: moist mucous membranes, mild erythema, no exudate Neck: supple, no thyromegaly, no lymphadenopathy HEART: regular rate and rhythm, no murmurs LUNGS: clear to auscultation, no wheezes or crackles, no increased WOB ASSESSMENT/PLAN: 1. Acute COVID-19 - ICD9: 079.89, ICD10: U07.1 (primary diagnosis) - 2019 CORONAVIRUS - Discussed supportive care treatment with home isolation, rest, cold medicine, and analgesia. - Discussed Paxlovid EUA for treatment of COVID. She does not have recent kidney function. She would like to continue supportive care for now. If she feels worse tomorrow and decides to pursue paxlovid treatment, she may return for kidney function lab and set up virtual appointment. - Red flags to seek further treatment include chest pain, shortness of breath, and lethargy; in theER if severe. 2. Acute otitis media, right - ICD9: 382.9, ICD10: H66.91 - AMOXICILLIN 875 MG TABLET Fred Her MD [facility] History of Present illness Narrative* 61yo female presenting for annual visit. 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 Naveed 0688 DO Work Phone: 1(442) 376-920606-19-2022 History of Present illness Narrative* 61yo female presenting for annual visit. 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 Naveed 7642 DO Work Phone: 1([phone]) [phone] History of Present illness Narrative* Patient comes in today for checkup and several complaints. She had a cortisone injection in her right shoulder yesterday and is not sure whether it is helping. * She has been fatigued and tired for about 6 to 8 weeks now. She is not working. * Patient complaining of abdominal pain in the left upper quadrant which she describes as a 2 out of 10 and sporadic but burping helps. * 06/30/2021 * Patient comes in today for evaluation of left lower quadrant pain. Since she was here in April 2020 a lot has happened in her life. She retired last year and remarried on 09/29/2020 and moved to [place], [place] with her . * Patient having left lower quadrant pain. She has been having this for a while actually. She had a colonoscopy last December followed by an ultrasound and x- ray and CT of her abdomen where nothing significant was found. Patient admits to constipation where she goes every 3 days along with a lot of gasand bloating. She has been using align for the last 90 days which she claims has been helping some.She just recently started taking Metamucil which seems to be helping as well. * 05/15/2020 * Patient comes in today on the wrong day, for physical exam. She got her appointment days mixed up. She is otherwise without complaints. * 04/24/2020 * Patient is seen today as a telemedicine visit rendered via realtime interactive audio/video doxy[employer]meservices as we are currently in the middle of a coronavirus pandemic worldwide. The patient was informed about the telehealth clinical encounter including benefits to avoiding travel and limitations to the assessment. In person care may be recommended if needed. Telehealth sessions are not being recorded and personal health information is protected. * Patient presents today for follow-up from her visit from last week. She is very anxious about her coronavirus test which has come back negative. She is relieved to hear that. She overall is feeling better than she did last week but is not back to normal yet. She is complaining of a rash beneath hernose that she claims is chronic and recurring and she has been diagnosed in the past by the resident athletic trainer and prescribed Protopic and tetracycline for the rash which usually relieves it. She is out of both and would like refills. * 04/18/2020 * Patient is seen today as a telemedicine visit rendered via realtime interactive audio/video [employer] as we are currently in the middle of a coronavirus pandemic worldwide. The patient was informed about the telehealth clinical encounter including benefits to avoiding travel and limitations to the assessment. In person care may be recommended if needed. Telehealth sessions are not being recorded and personal health information is protected. * Patient presents today with Covid symptoms. 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 She is having problems with headache, fatigue and sinus congestion and drainage. She is feeling achy all over especially in her knees. She denies a fever or chills. She is a however she does take care of her 2 elderly parents and is concerned about Covid. * 02/16/2020 * Patient comes in today complaining of pain in her right thumb when she reaches. 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 * 01/16/2020 * Patient is seen today as a telemedicine visit rendered via realtime interactive audio/video doxy.meservices as we are currently in the middle of a coronavirus pandemic worldwide. The patient was informed about the telehealth clinical encounter including benefits to avoiding travel and limitations to the assessment. In person care may be recommended if needed. Telehealth sessions are not being recorded and personal health information is protected. * Patient presents today continuing to complain of pain in her left abdomen. Today she describes it up in her left upper quadrant. 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 Apparently school is going to be virtual this year but they're going to keep the cleaningpeople on for now. She is grateful for that but is not sure how much longer she will have insurance. She describes the pain in her left upper abdomen as present but not there all the time. * 12/14/2019 * Patient comes in today complaining of a sensation in her left flank when she turns her head to the left. She has had some urinary frequency and urgency but no burning with urination. Azo did seem to help. Her urinalysis today was completely normal. 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 * 11/22/2019 * Patient presents today complaining of discomfort in her right eye. She feels like when she was cleaning yesterday some debris blew into her right eye and scratched it. She comes in today complaining of irritation of the right eye. She denies photophobia with that eye. * 09/04/2019 * Patient is seen today as a telemedicine visit rendered via realtime interactive audio/video doxy.chrisices as we are currently in the middle of a coronavirus pandemic worldwide with aqgq-rs-dmhs orders by the government. She is using her eye pad for her visit today. Is having problems with her left ear again. It is a chronically recurring pain and she thinks she may have got some water in it inher shower or tub. She is not working currently due to the coronavirus pandemic and says she is painting her house. She has an elderly mom and dad but she is avoiding them currently. She claims her pain level is a 4 out of 10 for her ear. * 06/01/2019 * Patient comes in today complaining of laryngitis. She has had now for about 4 days. Her symptoms are as noted above. Both her parents have been sick as well and she has seen both of them over the holidays. * 05/01/19 * Patient comes in today complaining of a bad sore throat, headache, crackling in the ears, chest pain, abdominal pain, chills and feeling hot at the same time. She states she hasn't been able to eat anything because of her stomach. If it is not bland her stomach hurts. She did not go anywhere for Thanksgiving because of not feeling well. She hasn't been to work. 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 * 02/15/19 * Patient comes in today complaining of dizziness this past Wednesday. It lasted for about a minute after she had stood up. She also has been feeling run down with ear pressure and headache and just doesn't feel right. She claims that her urine has an unusual odor as well. Her UA today is completely normal. * 10/05/2018 * The patient is a 58 year old female who presents with vertigo. Symptoms include dizziness, sensation of movement, spinning sensation, difficulty ambulating (during the attack), nausea and vomiting, while symptoms do not include loss of balance, hearing loss or tinnitus. Onset was 2 day(s) ago. The patient describes this as worsening. The patient is not currently being treated for this problem. Note for Vertigo: In talking to the patient further about her symptoms seem to be related mostly to changes in position. 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 and that seems to be when the symptoms are hitting the most. They just began really yesterday. * TIFFANIE GOMEZ presents with complaints of cold symptoms. * Associated symptoms include sneezing, nasal congestion, runny nose, post nasal drainage, sore throat, productive cough, plugged ear(s), fatigue, nausea, diarrhea and chills. * TIFFANIE GOMEZ presents with complaints of gradual onset of mild bilateral ear pain, described as aching. * Associated symptoms include headache and vertigo, but no otalgia. * TIFFANIE GOMEZ presents with complaints of mild dizziness, described as sensation of movement. * Associated symptoms include headache and ear pain, but no weakness, no syncope, no difficulty ambulating, no vomiting, no diarrhea, no fever, no symptoms of an upper respiratory infection, no ear fullness, no tinnitus, no hearing loss, no neck pain, no neck stiffness, no visual changes, no dysarthri a, no dysphagia, no facial weakness and no falling episodes. [facility] [address] Work Phone: [phone]) [phone] Miscellaneous Notes* Telephone Encounter - Yadi Giles LPN - 09/09/2021 8:33 AM EDT Patient notified.Yadi Giles LPN * Telephone Encounter - Shahida Agarwal APRN.CNP - 09/09/2021 7:02 AM EDT Please notify of negative covid and influenza test. Continue comfort measures for symptoms as you would for a cold. Any worsening symptoms follow up with PCP or ER. hSahida Aagrwal APRN.GIANNA documented in this encounterMar[facility]04-11-2022 History of Present illness Narrative* Betzy Willis PA-C - 09/08/2021 12:28 PM EDT This note was created using [employer]. Subjective Tiffanie Ramsey is a 61 year old female. HPI Patient presents with cough, sore throat, headache and sinus pressure over the past 3 weeks. She states her ears feel full as well. She has been using some Flonase and qctu-iwu-mygygah cold medication. She states she really is just not getting better so she came in for evaluation. She is allergic to antihistamines, and the make her feel hyperactive. She denies fever. She is vaccinated for Covid. Has not had Covid previously. No change in smell or taste. No vomiting or diarrhea. Her had a little bit of cold symptoms when her ears started but his got better. She thought maybe it was from some dust in her home doing a construction project initially but really never got better. Review of Systems Constitutional: Positive for fatigue. HENT: Positive for congestion, ear pain, postnasal drip, sinus pressure, sinus pain and sore throat. Respiratory: Positive for cough. Negative for shortness of breath and wheezing. Cardiovascular: Negative. Gastrointestinal: Negative. Genitourinary: Negative. Musculoskeletal: Positive for myalgias. Neurological: Positive for headaches. All other systems reviewed and are negative. No past medical history on file. Current Outpatient Medications Medication Sig Dispense Refill fluticasone (FLONASE) 50 mcg/actuation nasal spray Use 2 Sprays in each nostril once daily. 3 Bottle 3 fluticasone (FLONASE) 50 mcg/actuation nasal spray Use 2 Sprays in each nostril once daily. 3 Bottle 3 amoxicillin-clavulanic acid (AUGMENTIN) 875-125 mg per tablet Take 1 tablet by mouth twice daily for 7 days. 14 tablet 0 predniSONE (DELTASONE) 20 mg tablet Take 2 tablets by mouth once daily for 5 days. 10 tablet 0 No current facility-administered medications for this visit. No past surgical history on file. No family history on file. Social History Tobacco Use Smoking status: Never Smoker Smokeless tobacco: Never Used Substance Use Topics Alcohol use: Yes Comment: rare Drug use: Not on file Objective BP 116/86 Pulse 71 Temp 37.1 C (98.7 F) Resp 20 Wt 56.1 kg (123 lb 9.6 oz) SpO2 99% BMI22.61 kg/m Physical Exam Vitals reviewed. Constitutional: Appearance: Normal appearance. HENT: Head: Normocephalic and atraumatic. Right Ear: Tympanic membrane, ear canal and external ear normal. Left Ear: Tympanic membrane, ear canal and external ear normal. Nose: Congestion present. Right Sinus: Maxillary sinus tenderness and frontal sinus tenderness present. Left Sinus: No maxillary sinus tenderness or frontal sinus tenderness. Mouth/Throat: Lips: [place]. Pharynx: Oropharynx is clear. No pharyngeal swelling, oropharyngeal exudate, posterior oropharyngeal erythema or uvula swelling. Cardiovascular: Rate and Rhythm: Normal rate and regular rhythm. Heart sounds: Normal heart sounds. Pulmonary: Effort: Pulmonary effort is normal. Breath sounds: Normal breath sounds. Musculoskeletal: Cervical back: Neck supple. Lymphadenopathy: Cervical: No cervical adenopathy. Skin: General: Skin is warm and dry. Findings: No rash. Neurological: General: No focal deficit present. Mental Status: She is alert and oriented to person, place, and time. Assessment and Plan ASSESSMENT/PLAN: 1. Acute pansinusitis, recurrence not specified - ICD9: 461.8, ICD10: J01.40 - Will begin treatment with Augmentin 875 mg PO BID for 7 days - Supportive care with plenty of fluids, rest, and analgesia prn. - Follow up in 3-5 days if symptoms persist or worsen. - COVID WITH FLUA+B, ROUTINE- to rule out Betzy Willis PA-C documented in this encounterMarion Hospital01-31-2022 History of Present illness Narrative* 06/30/2021 * Patient comes in today for evaluation of left lower quadrant pain. Since she was here in April 2020 a lot has happened in her life. She retired last year and remarried on 09/29/2020 and moved to [place], [place] with her . * Patient having left lower quadrant pain. She has been having this for a while actually. She had a colonoscopy last December followed by an ultrasound and x- ray and CT of her abdomen where nothing significant was found. Patient admits to constipation where she goes every 3 days along with a lot of gasand bloating. She has been using align for the last 90 days which she claims has been helping some.She just recently started taking Metamucil which seems to be helping as well. * 05/15/2020 * Patient comes in today on the wrong day, for physical exam. She got her appointment days mixed up. She is otherwise without complaints. * 04/24/2020 * Patient is seen today as a telemedicine visit rendered via realtime interactive audio/video [employer] as we are currently in the middle of a coronavirus pandemic worldwide. The patient was informed about the telehealth clinical encounter including benefits to avoiding travel and limitations to the assessment. In person care may be recommended if needed. Telehealth sessions are not being recorded and personal health information is protected. * Patient presents today for follow-up from her visit from last week. She is very anxious about her coronavirus test which has come back negative. She is relieved to hear that. She overall is feeling better than she did last week but is not back to normal yet. She is complaining of a rash beneath hernose that she claims is chronic and recurring and she has been diagnosed in the past by the resident athletic trainer and prescribed Protopic and tetracycline for the rash which usually relieves it. She is out of both and would like refills. * 04/18/2020 * Patient is seen today as a telemedicine visit rendered via realtime interactive audio/video [employer] as we are currently in the middle of a coronavirus pandemic worldwide. The patient was informed about the telehealth clinical encounter including benefits to avoiding travel and limitations to the assessment. In person care may be recommended if needed. Telehealth sessions are not being recorded and personal health information is protected. * Patient presents today with Covid symptoms. 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 She is having problems with headache, fatigue and sinus congestion and drainage. She is feeling achy all over especially in her knees. She denies a fever or chills. She is a however she does take care of her 2 elderly parents and is concerned about Covid. * 02/16/2020 * Patient comes in today complaining of pain in her right thumb when she reaches. 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 * 01/16/2020 * Patient is seen today as a telemedicine visit rendered via realtime interactive audio/video [employer] as we are currently in the middle of a coronavirus pandemic worldwide. The patient was informed about the telehealth clinical encounter including benefits to avoiding travel and limitations to the assessment. In person care may be recommended if needed. Telehealth sessions are not being recorded and personal health information is protected. * Patient presents today continuing to complain of pain in her left abdomen. Today she describes it up in her left upper quadrant. 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 Apparently school is going to be virtual this year but they're going to keep the cleaningpeople on for now. She is grateful for that but is not sure how much longer she will have insurance. She describes the pain in her left upper abdomen as present but not there all the time. * 12/14/2019 * Patient comes in today complaining of a sensation in her left flank when she turns her head to the left. She has had some urinary frequency and urgency but no burning with urination. Azo did seem to help. Her urinalysis today was completely normal. 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 * 11/22/2019 * Patient presents today complaining of discomfort in her right eye. She feels like when she was cleaning yesterday some debris blew into her right eye and scratched it. She comes in today complaining of irritation of the right eye. She denies photophobia with that eye. * 09/04/2019 * Patient is seen today as a telemedicine visit rendered via realtime interactive audio/video doxy.[employer] as we are currently in the middle of a coronavirus pandemic worldwide with cecw-xp-gooc orders by the government. She is using her eye pad for her visit today. Is having problems with her left ear again. It is a chronically recurring pain and she thinks she may have got some water in it inher shower or tub. She is not working currently due to the coronavirus pandemic and says she is painting her house. She has an elderly mom and dad but she is avoiding them currently. She claims her pain level is a 4 out of 10 for her ear. * 06/01/2019 * Patient comes in today complaining of laryngitis. She has had now for about 4 days. Her symptoms are as noted above. Both her parents have been sick as well and she has seen both of them over the holidays. * 05/01/19 * Patient comes in today complaining of a bad sore throat, headache, crackling in the ears, chest pain, abdominal pain, chills and feeling hot at the same time. She states she hasn't been able to eat anything because of her stomach. If it is not bland her stomach hurts. She did not go anywhere for Thanksgiving because of not feeling well. She hasn't been to work. 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 * 02/15/19 * Patient comes in today complaining of dizziness this past Wednesday. It lasted for about a minute after she had stood up. She also has been feeling run down with ear pressure and headache and just doesn't feel right. She claims that her urine has an unusual odor as well. Her UA today is completely normal. * 10/05/2018 * The patient is a 58 year old female who presents with vertigo. Symptoms include dizziness, sensation of movement, spinning sensation, difficulty ambulating (during the attack), nausea and vomiting, while symptoms do not include loss of balance, hearing loss or tinnitus. Onset was 2 day(s) ago. The patient describes this as worsening. The patient is not currently being treated for this problem. Note for Vertigo: In talking to the patient further about her symptoms seem to be related mostly to changes in position. 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 and that seems to be when the symptoms are hitting the most. They just began really yesterday. * TIFFANIE GOMEZ presents with complaints of cold symptoms. * Associated symptoms include sneezing, nasal congestion, runny nose, post nasal drainage, sore throat, productive cough, plugged ear(s), fatigue, nausea, diarrhea and chills. * TIFFANIE GOMEZ presents with complaints of gradual onset of mild bilateral ear pain, described as aching. * Associated symptoms include headache and vertigo, but no otalgia. * TIFFANIE GOMEZ presents with complaints of mild dizziness, described as sensation of movement. * Associated symptoms include headache and ear pain, but no weakness, no syncope, no difficulty ambulating, no vomiting, no diarrhea, no fever, no symptoms of an upper respiratory infection, no ear fullness, no tinnitus, no hearing loss, no neck pain, no neck stiffness, no visual changes, no dysarthri a, no dysphagia, no facial weakness and no falling episodes. [facility] [address] Work Phone: [phone]) [phone] History of Present illness NarrativeMs Gomez is a middle school spanish teacher who presents today for evaluation of her left shoulder. Now that school is out they are requiring her to do quite a bit of cleaning around the school. She has to lift chairs and other items and move them out of the way. She has since started experiencing pain just superior to her clavicle extending up into her neck. She thought she had a little bit of swelling sometime last week. She has been using Tylenol with minimal improvement. She denies any pain towards the lateral aspect of her shoulder or any pain down her arm.[facility] Work Phone: 1([phone]) [phone] History of Present illness Narrative* Patient comes in today for evaluation of left lower quadrant pain. Since she was here in April 2020 a lot has happened in her life. She retired last year and remarried on 09/29/2020 and moved to [place], [place] with her . * Patient having left lower quadrant pain. She has been having this for a while actually. She had a colonoscopy last December followed by an ultrasound and x- ray and CT of her abdomen where nothing significant was found. Patient admits to constipation where she goes every 3 days along with a lot of gasand bloating. She has been using align for the last 90 days which she claims has been helping some.She just recently started taking Metamucil which seems to be helping as well. * 05/15/2020 * Patient comes in today on the wrong day, for physical exam. She got her appointment days mixed up. She is otherwise without complaints. * 04/24/2020 * Patient is seen today as a telemedicine visit rendered via realtime interactive audio/video [email or web address] as we are currently in the middle of a coronavirus pandemic worldwide. The patient was informed about the telehealth clinical encounter including benefits to avoiding travel and limitations to the assessment. In person care may be recommended if needed. Telehealth sessions are not being recorded and personal health information is protected. * Patient presents today for follow-up from her visit from last week. She is very anxious about her coronavirus test which has come back negative. She is relieved to hear that. She overall is feeling better than she did last week but is not back to normal yet. She is complaining of a rash beneath hernose that she claims is chronic and recurring and she has been diagnosed in the past by the resident athletic trainer and prescribed Protopic and tetracycline for the rash which usually relieves it. She is out of both and would like refills. * 04/18/2020 * Patient is seen today as a telemedicine visit rendered via realtime interactive audio/video [email or web address] as we are currently in the middle of a coronavirus pandemic worldwide. The patient was informed about the telehealth clinical encounter including benefits to avoiding travel and limitations to the assessment. In person care may be recommended if needed. Telehealth sessions are not being recorded and personal health information is protected. * Patient presents today with Covid symptoms. 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 She is having problems with headache, fatigue and sinus congestion and drainage. She is feeling achy all over especially in her knees. She denies a fever or chills. She is a however she does take care of her 2 elderly parents and is concerned about Covid. * 02/16/2020 * Patient comes in today complaining of pain in her right thumb when she reaches. 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 * 01/16/2020 * Patient is seen today as a telemedicine visit rendered via realtime interactive audio/video [email or web address] as we are currently in the middle of a coronavirus pandemic worldwide. The patient was informed about the telehealth clinical encounter including benefits to avoiding travel and limitations to the assessment. In person care may be recommended if needed. Telehealth sessions are not being recorded and personal health information is protected. * Patient presents today continuing to complain of pain in her left abdomen. Today she describes it up in her left upper quadrant. 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 Apparently school is going to be virtual this year but they're going to keep the cleaningpeople on for now. She is grateful for that but is not sure how much longer she will have insurance. She describes the pain in her left upper abdomen as present but not there all the time. * 12/14/2019 * Patient comes in today complaining of a sensation in her left flank when she turns her head to the left. She has had some urinary frequency and urgency but no burning with urination. Azo did seem to help. Her urinalysis today was completely normal. 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 * 11/22/2019 * Patient presents today complaining of discomfort in her right eye. She feels like when she was cleaning yesterday some debris blew into her right eye and scratched it. She comes in today complaining of irritation of the right eye. She denies photophobia with that eye. * 09/04/2019 * Patient is seen today as a telemedicine visit rendered via realtime interactive audio/video [email or web address] as we are currently in the middle of a coronavirus pandemic worldwide with lhdg-rd-ccoc orders by the government. She is using her eye pad for her visit today. Is having problems with her left ear again. It is a chronically recurring pain and she thinks she may have got some water in it inher shower or tub. She is not working currently due to the coronavirus pandemic and says she is painting her house. She has an elderly mom and dad but she is avoiding them currently. She claims her pain level is a 4 out of 10 for her ear. * 06/01/2019 * Patient comes in today complaining of laryngitis. She has had now for about 4 days. Her symptoms are as noted above. Both her parents have been sick as well and she has seen both of them over the holidays. * 05/01/19 * Patient comes in today complaining of a bad sore throat, headache, crackling in the ears, chest pain, abdominal pain, chills and feeling hot at the same time. She states she hasn't been able to eat anything because of her stomach. If it is not bland her stomach hurts. She did not go anywhere for Thanksgiving because of not feeling well. She hasn't been to work. 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 * 02/15/19 * Patient comes in today complaining of dizziness this past Wednesday. It lasted for about a minute after she had stood up. She also has been feeling run down with ear pressure and headache and just doesn't feel right. She claims that her urine has an unusual odor as well. Her UA today is completely normal. * 10/05/2018 * The patient is a 58 year old female who presents with vertigo. Symptoms include dizziness, sensation of movement, spinning sensation, difficulty ambulating (during the attack), nausea and vomiting, while symptoms do not include loss of balance, hearing loss or tinnitus. Onset was 2 day(s) ago. The patient describes this as worsening. The patient is not currently being treated for this problem. Note for Vertigo: In talking to the patient further about her symptoms seem to be related mostly to changes in position. 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 and that seems to be when the symptoms are hitting the most. They just began really yesterday. * TIFFANIE GOMEZ presents with complaints of cold symptoms. * Associated symptoms include sneezing, nasal congestion, runny nose, post nasal drainage, sore throat, productive cough, plugged ear(s), fatigue, nausea, diarrhea and chills. * TIFFANIE GOMEZ presents with complaints of gradual onset of mild bilateral ear pain, described as aching. * Associated symptoms include headache and vertigo, but no otalgia. * TIFFANIE GOMEZ presents with complaints of mild dizziness, described as sensation of movement. * Associated symptoms include headache and ear pain, but no weakness, no syncope, no difficulty ambulating, no vomiting, no diarrhea, no fever, no symptoms of an upper respiratory infection, no ear fullness, no tinnitus, no hearing loss, no neck pain, no neck stiffness, no visual changes, no dysarthri a, no dysphagia, no facial weakness and no falling episodes. [id number] Work Phone: [phone] History of Past illness Narrative* Problem Noted Date Diagnosed Date Resolved Date Impacted cerumen 12/06/2006 07/13/2023 documented as of this encounter (statuses as of 07/15/2023) [facility] History of Past illness Narrative* Problem Noted Date Diagnosed Date Resolved Date Impacted cerumen 12/06/2006 07/13/2023 documented as of this encounter (statuses as of 07/21/2023) [facility] History of Past illness Narrative* Problem Noted Date Diagnosed Date Resolved Date Impacted cerumen 12/06/2006 07/13/2023 documented as of this encounter (statuses as of 07/22/2023) [facility] History of Past illness Narrative* Problem Noted Date Diagnosed Date Resolved Date Impacted cerumen 12/06/2006 07/13/2023 documented as of this encounter (statuses as of 07/28/2023) [facility] History of Past illness Narrative* Problem Noted Date Diagnosed Date Resolved Date Impacted cerumen 12/06/2006 07/13/2023 documented as of this encounter (statuses as of 07/29/2023) [facility] History of Past illness Narrative* Problem Noted Date Diagnosed Date Resolved Date Impacted cerumen 12/06/2006 07/13/2023 documented as of this encounter (statuses as of 08/05/2023) [address]09-2007 History of Past illness Narrative* Problem Noted Date Diagnosed Date Resolved Date Impacted cerumen 12/06/2006 07/13/2023 documented as of this encounter (statuses as of 08/20/2023) [address]09-2007 History of Past illness Narrative* Problem Noted Date Diagnosed Date Resolved Date Impacted cerumen 12/06/2006 07/13/2023 documented as of this encounter (statuses as of 09/10/2023) [facility] Umesh Graf [facility] Note Date/Time March 08, 2025 6: 37am [facility] Medical Records Department [address] [place] [address] Pre-Anesthesia Evaluation 03/08/25 0637 MR#: [id number] Acct: [id number] Name: TIFFANIE RAMSEY Rep #:[id number] : 1960 64 From: Umesh Graf MD PCP: Dr. Bello Davenport MD Status:REG S DC Y Race: C Location: [place] [address] ASA Classification* ASA Classification ASA Classification: 2 Assessment & Plan Anesthesia* Anesthesia Assessment Anesthesia Assessment: Discussed sedation and/or anesthesia options, risks, benefits, and alternatives with patient/parents/legal guardian/POA. Questions invited. The patient/parents/legal guardian/POA seems to understand and agrees to proceedwith anesthesia plan. Reviewed the physical assessment, medical history, allergy history and patient home medications list prior to surgery/procedure/anesthetic and documented any changes. Performed airway and anesthesia risk assessments. Anesthesia Type Anesthesia Type: MAC Anesthesia Focused Assessment* Temperature: 97.7 F Pulse Rate: 66 Blood Pressure: 132/80 Respiratory Rate: 16 Pulse Ox: 100 Airway Assessment Mouth opens: >3 cm Mallampati Score: II Labs Anesthesia Preop lab: CBC WBC, (4.4-11.0) 5.7 K/mm3 08/11/24, 11:01 RBC, (4.2-5.4) 5.07 M/mm3 08/11/24, 11:01 Hgb, (12.0-15.0) 14.7 g/dL 08/11/24, 11: Hct, (37-47) 43.9 % 08/11/24, 11:01 Plt Count, (150-450) 296 K/mm3 08/11/24, 11:01 CHEMISTRY Potassium, (3.3-5.1) 4.4 mmol/L 08/11/24, 11:01 Sodium, (133-145) 140 mmol/L 08/11/24, 11:01 BUN, (4-19) 15 mg/dL 08/11/24, 11:01 Creatinine, (0.70-1.20) 0.75 mg/dL 08/11/24, 11:01 Glucose, (70-99) 88 mg/dL 08/11/24, 11:01 TSH, (0.300-4.200) 0.902 uIU/mL 08/11/24, 11:01 COAG Pre-Assessment Diagnosis/Proposed Procedure Planned Operative Procedure(s): EGD Anesthesia History 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 When Was Last Pacemaker Check QUESTION #4 FULL TEXT: You/Your Family Experience fever (hyperthermia) with Anesthesia Last Oral Intake Last Oral intake: Last Oral Intake NPO since 19:00 03/08/25 05:49 Meds taken in AM with sips of No 03/08/25 05:49 water? Meds patient instructed to take am of surgery PONV PONV - leather coverer: PONV - leather coverer Female Yes 03/02/25 16:01 HX of Motion Sickness No 03/02/25 16:01 HX of N/V After Surgery No 03/02/25 16:01 Non-Smoker Yes 03/02/25 16:01 Duration of Surgery greater No 03/02/25 16:01 than 60 minutes Number of Risk Factors 2 03/02/25 16:01 PONV Score Moderate Risk 03/02/25 16:01 Height & Weight Height & Weight: Anesthesia: Height & Weight Height 5 ft 2 in 03/08/25 05:49 Weight: 62.7 kg 03/08/25 05:49 Body Mass Index (BMI) 25.2 03/08/25 05:49 Respiratory Assessment Respiratory Assessment - leather coverer: Respiratory Tract Infection Hx - leather coverer Hx Respiratory Tract Infection No 03/02/25 16:01 STOP Sleep Apnea STOP Sleep Apnea - leather coverer: STOP Sleep Apnea - leather coverer Hx Hypertension No 03/02/25 16:01 Hx Sleep Apnea No: SLEEP STUDY SCHEDULED 10 03/02/25 16: CPAP BIPAP Do you snore loudly (louder No 03/02/25 16:01 than talking or can be heard Do you often feel tired/ No 03/02/25 16:01 fatigued/ sleepy during daytime? Has anyone observed you stop No 03/02/25 16:01 breathing during sleep? STOP Results Negative 03/02/25 16:01 QUESTION #5 FULL TEXT : Do you snore loudly (louder than talking or can be heard through closed doors)? 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 Specify any problems Hx of Preganancy in last 3 No 03/02/25 16:01 Months Nurse Filling Out Transfusion MGRIFFITH 03/02/25 16:01 & Questions: Date: 03/02/25 03/02/25 16:01 Time: 16:03 03/02/25 16:01 Patient unable to answer at this time (ie. confused, unrespo /Reproduction History /Reproductive History - leather coverer: /Reproductive Hx- leather coverer Hx Now No 03/02/25 16:01 Gestational Age (in weeks): EDC: Hx Hx Para Hx Section SAB No 03/02/25 16:01 Active Medications Active Medications: Current Medications Generic Name Dose Route Start Last Admin Trade Name Freq PRN Reason Stop Dose Admin Lactated Ringer's 1,000 mls @ 15 mls/hr 03/08/25 06:00 03/08/25 06:01 IV 15 mls/hr .Q48H RJ Administration PFSH Medical History Arthritis High cholesterol Injury of back History of IBS Heartburn Non-smoker Shortness of breath on exertion History of echocardiogram Long COVID Left shoulder pain Home Medications ?Medication ?Instructions ?Recorded ?Last Taken ?Type fluticasone propionate 50 1 spray intranasal QDAY 08/22 Unknown History mcg/actuation nasal spray,suspension (Flonase Allergy Relief) acetaminophen 650 mg 650 mg PO DAILY 12/26/24 Unk nown History tablet,extended release (Tylenol Arthritis Pain) estradiol 0.01% (0.1 mg/gram) See Rx Instructions vagi nal 12/26/24 Unknown Rx vaginal cream .COMPLEX #42.5 grams L.acidophilus-B.animalis-B.longum 1 cap PO DAILY 03/02 Unknown History 15 billion cell capsule (Florajen Digestion) Allergy/AdvReac Type Severity Reaction Status Date / Time Sulfa (Sulfonamide Allergy Overheats Verified 03/08/25 05:48 Antibiotics) (sulfa drugs) and gets very tired ciprofloxacin (From Cipro) AdvReac Mild Other Verified 03/08/25 05:48 Family History Father Cancer Stomach Mother Cancer Melanoma Surgical History History of esophagogastroduodenoscopy (EGD) History of colonoscopy History of wisdom tooth extraction History of bilateral cataract extraction History of ear surgery Social History household members: spouse Smoking Status: Never smoker alcohol intake: former substance use type: does not use seatbelt use: always do you feel safe at home: Yes additional social history: - Jorge Review of Systems (Anesthesia) ROS Narrative System reviewed and no additional complaints, except as documented. 03/08/2537 <Electronically signed by Umesh Graf MD > Date _ Umesh Graf MD Cosigner Signature: Date CC: ~ Signed [facility] Work Phone: consult note Author Jose Lopez [facility] Note Date/Time March 08, 2025 7: 05am [facility] Medical Records Department [address] [place] [address] Anesthesia Postop Eval I 03/08/25703 MR#: [id number] Acct: [id number] Name: TIFFANIE RAMSEY Rep #:[id number] : 1960 64 From: Jose Lopez PCP: Dr. Bello Davenport MD Status:REG S DC Y Race: C Location: [place] [address] Anesthesia: Postop Eval I Current Vital Signs Temperature: 97.1 F Pulse Rate: 65 Blood Pressure: 92/52 Respiratory Rate: 16 Pulse Ox: 96 Oxygen Delivery Method: Room Air Assessment Airway patent: Yes Spontaneous unlabored respirations: Yes Mental status: Asleep nausea: No Vomiting: No Anesthesia Complication: No Fluid Hydration Crystalloid volume administer (ml): 400 Total IV fluid infused: 400 Progress Note Anesthesia document: Postop Eval 1 completed: Yes 03/08/25704 <Electronically signed by Jose Lopez > Date _ Jose Lebron Signature: Date CC: ~ Signed [facility] Work Phone: consult note Author Umesh Graf [facility] Note Date/Time March 08, 2025 7: 20am [facility] Medical Records Department [address] [place] [address] Anesthesia Postop Eval II 03/08/25718 MR#: [id number] Acct: [id number] Name: TIFFANIE RAMSEY Rep #:[id number] : 1960 64 From: Umesh Graf MD PCP: Dr. Bello Davenport MD Status:REG S DC Y Race: C Location: [place] [id number] Anesthesia Postop Eval I Sum Postop Eval Completion status Anesthesia document: Postop Eval 1 completed: Yes Anesthesia Postop Eval I Summary Anesthesia Postop Eval I Summary: Anesthesia Postop Eval I: Assessment Summary Airway patent Yes 03/08/25 07:05 [email or web address] Spontaneous unlabored Yes 03/08/25 07:05 [email or web address] respirations Mental status Asleep 03/08/25 07:05 [email or web address] nausea No 03/08/25 07:05 [email or web address] Vomiting No 03/08/25 07:05 [email or web address] Anesthesia Postop Eval I: Fluid Summary Crystalloid volume administer 400 03/08/25 07:05 [email or web address] (ml) Colloids volume administered ( ml) Blood Product volume administered (ml) Total IV fluid infused 400 03/08/25 07:05 [email or web address] Anesthesia Postop Eval I: Summary Notes Anesthesia Complication No 03/08/25 07:05 [email or web address] Anesthesia Complication Comment: Post-operative progress note Anesthesia: Postop Eval II Evaluation Mental status: Awake Pain Level: 0 nausea: No Vomiting: No 03/08/25 0720 <Electronically signed by Umesh Graf MD > Date _ [facility]mesh Graf [facility] Signature: Date CC: ~ Signed [facility] Work Phone: Evaluation note* Diagnosis Acute pansinusitis, recurrence not specified- Primary [facility] Acute COVID-19- Primary Acute otitis media, right Unspecified otitis media [facility] Diagnosis Rhinosinusitis- Primary Unspecified sinusitis (chronic) [facility] Diagnosis Chronic fatigue- Primary Other malaise and fatigue Thyroid nodule Nontoxic uninodular goiter Arthralgia, unspecified joint Vitamin D deficiency Unspecified vitamin D deficiency Post-menopausal Asymptomatic postmenopausal status (age-related) (natural) Screening for deficiency anemia Screening for other and unspecified deficiency anemia Encounter for screening for diabetes mellitus Screening for diabetes mellitus Screening for lipid disorders Screening for HIV (human immunodeficiency virus) Special screening examination for other specified viral diseases Screening for thyroid disorder Encounter for hepatitis C screening test for low risk patient Screening for blood or protein in urine Screening for unspecified condition Screening for cardiovascular condition Screening for other and unspecified cardiovascular conditions [facility] Diagnosis Rhinosinusitis- Primary Unspecified sinusitis (chronic) Acute otitis media, bilateral Unspecified otitis media [facility]* Diagnosis Hyperlipidemia, unspecified hyperlipidemia type- Primary [facility] Diagnosis Multiple thyroid nodules- Primary Nontoxic multinodular goiter [facility] Diagnosis Nontoxic multinodular goiter- Primary [facility]* Diagnosis Acute sinusitis, recurrence not specified, unspecified location- Primary [facility] Diagnosis Post-menopausal Asymptomatic postmenopausal status (age-related) (natural) [facility]* Diagnosis Nasal congestion- Primary Other diseases of nasal cavity and sinuses Glossitis Central perforation of tympanic membrane of left ear Central perforation of tympanic membrane [facility] noteNo assessment information availableWAs[facility] Work Phone: Evaluation note* Diagnosis Bilateral hip pain- Primary Pain in joint, pelvic region and thigh [facility] Diagnosis Pain in left hip- Primary Pain in joint, pelvic region and thigh DDD (degenerative disc disease), lumbar Degeneration of lumbar or lumbosacral intervertebral disc [facility] Diagnosis Pain in left hip Pain in joint, pelvic region and thigh DDD (degenerative disc disease), lumbar Degeneration of lumbar or lumbosacral intervertebral disc [facility]* Diagnosis Acute otitis media, left- Primary Unspecified otitis media [facility]* Diagnosis Burning with urination- Primary Dysuria [facility]* Diagnosis Bilateral hip pain Pain in joint, pelvic region and thigh [facility]* Diagnosis Alopecia areata- Primary Vitamin D deficiency Unspecified vitamin D deficiency documented in this encounter [facility] note* Diagnosis Fatigue, unspecified type- Primary Post covid-19 condition, unspecified Exercise intolerance Other general symptoms Hyperlipidemia, unspecified hyperlipidemia type Gastroesophageal reflux disease with esophagitis, unspecified whether hemorrhage Non-toxic multinodular goiter Nontoxic multinodular goiter Shortness of breath Brain fog Myalgia Mylagia and myositis, unspecified Arthralgia, unspecified joint Abdominal discomfort Abdominal pain, unspecified site Insomnia, unspecified type Glossitis Alopecia areata Disorder of bone, unspecified Knee pain, unspecified chronicity, unspecified laterality Non-toxic multinodular goiter Nontoxic multinodular goiter [facility] Diagnosis Non-toxic multinodular goiter Nontoxic multinodular goiter [facility] Diagnosis Shortness of breath [facility] Diagnosis Shortness of breath [facility] Diagnosis Shortness of breath [facility]* Diagnosis Brain fog- Primary Psychophysiological insomnia Persistent disorder of initiating or maintaining sleep Post covid-19 condition, unspecified Primary obstructive sleep apnea of Dyspnea and respiratory abnormalities- Primary Other dyspnea and respiratory abnormality Post-acute sequelae of COVID-19 (PASC) documented [facility]* Diagnosis Dyspnea and respiratory abnormalities- Primary Other dyspnea and respiratory abnormality Post-acute sequelae of COVID-19 (PASC) Chronic sinusitis, unspecified location Fatigue, unspecified type [facility] Diagnosis Chronic fatigue syndrome- Primary Brain fog Arthralgia, unspecified joint Post-acute sequelae of COVID-19 (PASC) [facility] Diagnosis Gastroesophageal reflux disease, unspecified whether esophagitis present- Primary LUQ discomfort Abdominal pain, left upper quadrant Change in bowel habits Other symptoms involving digestive system [facility]* Diagnosis Hypercalcemia- Primary Polycythemia Polycythemia vera documented [facility] Author Chuck Dalton [facility] Note Date/Time March 08, 2025 6: 35am [facility] Medical Records Department [address] [place] [address] History & Physical Exam 03/08/25 0633 MR#: [id number] Acct: [id number] Name: TIFFANIE RAMSEY Rep #:[id number] : 1960 64 From: Chuck Dalton DO PCP: Dr. Bello Davenport MD Status:REG S DC Location: [place] [id number] HPI - General General Date of Admission: 03/08/25 Date of Service: 03/08/25 Chief Complaint: Abdominal pain HPI Narrative [ TIFFANIE RAMSEY, is a 64 F who presents for concerns regarding LUQ abdominal pain. She states that the pain is intermittent and travels but seems to settle in that area until a BM gives relief. She states that she's had multiple colonoscopies and states that nothing is ever seen in this area. She reports fatigue and difficulty stomaching her supplements ever since her COVID infection fall of . She reports participating in a clinic for long COVID. She has a chronic sinus infection along with complaints of heartburn, excessive gas, bloating and cramping in lower abdomen. She states that this is the third doctor's office she's to for a diagnosis of her abdominal complaints. She takes a Miralax cookie as needed for BMs, not letting her bowels go longer than 3 days without a BM. She denies difficulty chewing and swallowing, cough, throat clearing, reflux, nausea, emesis, diarrhea, hematochezia, and melena. She denies change in water source and recent travel out of the country. ] [facility] Medical History Arthritis High cholesterol Injury of back History of IBS Heartburn Non-smoker Shortness of breath on exertion History of echocardiogram Long COVID Left shoulder pain Home Medications ?Medication ?Instructions ?Recorded ?Last Taken ?Type fluticasone propionate 50 1 spray intranasal QDAY 08/22 Unknown History mcg/actuation nasal spray,suspension (Flonase Allergy Relief) acetaminophen 650 mg 650 mg PO DAILY 07/29/25 Unk nown History tablet,extended release (Tylenol Arthritis Pain) estradiol 0.01% (0.1 mg/gram) See Rx Instructions vagi nal 12/26/24 Unknown Rx vaginal cream .COMPLEX #42.5 grams L.acidophilus-B.animalis-B.longum 1 cap PO DAILY 03/02 Unknown History 15 billion cell capsule (Florajen Digestion) Allergy/AdvReac Type Severity Reaction Status Date / Time Sulfa (Sulfonamide Allergy Overheats Verified 03/08/25 05:48 Antibiotics) (sulfa drugs) and gets very tired ciprofloxacin (From Cipro) AdvReac Mild Other Verified 03/08/25 05:48 Family History Father Cancer Stomach Mother Cancer Melanoma Surgical History History of esophagogastroduodenoscopy (EGD) History of colonoscopy History of wisdom tooth extraction History of bilateral cataract extraction History of ear surgery Social History household members: spouse Smoking Status: Never smoker alcohol intake: former substance use type: does not use seatbelt use: always do you feel safe at home: Yes additional social history: - Jorge [facility] Constitutional Constitutional: Denies fatigue, fever(s), poor appetite, weight gain or weight loss Gastrointestinal Gastrointestinal: Denies belching, bloating, change in bowel habits, change in stool character, chewing difficulty, coffee ground emesis, constipation, cramping, diarrhea, dyspepsia, dysphagia, early satiety, excessive flatus, fecalincontinence, heartburn, hematemesis, hematochezia, hemorrhoids, loose stools, melena, nausea, odynophagia, rectal bleeding, tenesmus, vomiting or weight changes Vital Signs Vital Signs Vital Signs: 03/08/25 05:49 03/08/25 05:49 Temperature 97.7 F L Temperature Source Temporal Pulse Rate 66 Respiratory Rate 16 Respiratory Pattern Normal Blood Pressure 132/80 H Blood Pressure Mean 97 Blood Pressure Source Monitor Blood Pressure Position Semi-Fowlers Blood Pressure Location Left Arm Pulse Ox 100 Oxygen Delivery Method Room Air Weight Weight: 138 lb 3.677 oz Body Mass Index (BMI) 25.2 Physical Exam Const alert, oriented x3, no apparent distress and healthy appearing General Appearance: cooperative GI normal to inspection, nondistended, normoactive bowel sounds, soft to palpation,non-tender and non-distended Percussion: normal to percussion Rectal Exam: deferred Assessment & Plan Assessment/Plan (1) Gas bloat syndrome: (2) Abdominal pain: PLAN: Assessment and Plan Assessment and Plan (1) Gas bloat syndrome: Status: Acute (2) Heartburn symptom: Status: Acute Plan TIFFANIE RAMSEY, is a 64 F who presents to the office today for establishment with [facility] for concerns regarding LUQ abdominal pain. She has a chronic sinus infection along with complaints of heartburn, excessive gas, bloating and cramping in lower abdomen. Differential diagnoses include: gas bloat syndrome, IBS, GERD. Discussed care plan with her: * psyllium husk 1tsp PO daily * continue Miralax cookie PRN * BRAT diet x4wks * low FODMAP diet x4wks * office FU 5wks 03/08/25 0635 <Electronically signed by Chuck Dalton DO> Cosigner Signature (if applicable): CC: Dr. Bello Davenport MD; Chuck Dalton DO~ Signed [facility] Work Phone: History of Present illness NarrativeShe feels well and has no complaints. She has not noted any change in her neck. She has gained 5 pounds since last visit.[facility] Work Phone: History of Present illness Narrative* 62yo female presenting for annual visit. * Just tired. Just moved to [place]. * using vaginal estrogen once a week. * Diet: varied * Exercise: active with house work, working on exercise * Seatbelt: always * Safety: no concerns [id number] DO Work Phone: progress note Author Ally Bailey [facility] Note Date/Time March 13, 2025 1 :43pm [facility] [address], [address] [place] [address] OFFICE VISIT Date of Service: 03/13/25 MR#: [id number] Acct: [id number] Name: TIFFANIE RAMSEY Rep #: [id number] : 1960 Provider: Dr. Washington Bailey MD Age/Sex: 64/F Location: [facility] Status: Signed Intake Vital Signs 01/12/25 11:20 03/08/25 08:27 03/13/25 13:04 Height 5 ft 2 in 5 ft 2 in 5 ft 2 in Weight: 135 lb BMI 24.7 BP 106/74 Pulse 70 Intake Visit Reasons: FREQUENCY Chief Complaint: new patient for urinary frequency Animal Attendants And Trainers Required: No Accompanied by: self Is patient in pain?: No Allergies doxycycline Allergy (Verified 03/13/25 13:03) gi upset Sulfa (Sulfonamide Antibiotics) (sulfa drugs) Allergy (Verified 03/13/25 13:03) Overheats and gets very tired ciprofloxacin (From Cipro) Adverse Reaction (Mild, Verified 03/13/25 13:03) Other Medications ?Medication ?Instructions ?Recorded ?Confirmed ?Type fluticasone propionate 50 1 spray intranasal QDAY 08/2203/13/25 History mcg/actuation nasal spray,suspension (Flonase Allergy Relief) acetaminophen 650 mg 650 mg PO DAILY 12/26/24 History tablet,extended release (Tylenol Arthritis Pain) estradiol 0.01% (0.1 mg/gram) See Rx Instructions vagi nal 12/26/24 03/13/25 Rx vaginal cream .COMPLEX #42.5 grams L.acidophilus-B.animalis-B.longum 1 cap PO DAILY 03/0203/13/25 History 15 billion cell capsule (Florajen Digestion) Have you fallen in the past year?: No Nurse's Note: feels like her bladder is burning today. feels like she voids too often and occasional accidents if she holds it too long Bladder scan PVR 25cc PFSH Medical History H/O urinary frequency Arthritis High cholesterol Injury of back History of IBS Heartburn Non-smoker Shortness of breath on exertion History of echocardiogram Long COVID Left shoulder pain Surgical History History of esophagogastroduodenoscopy (EGD) History of colonoscopy History of wisdom tooth extraction History of bilateral cataract extraction History of ear surgery Family History Father Cancer Stomach Mother Cancer Melanoma Social History household members: spouse Smoking Status: Never smoker alcohol intake: former substance use type: does not use seatbelt use: always do you feel safe at home: Yes additional social history: - [facility] Chief Complaint: new patient for urinary frequency Details: TIFFANIE RAMSEY, is a 64 F. She is here for evaluation and management of urinary frequency. She is voiding 15-20 times during the day, 0-1 times at night. There is urge rare incontinence where she cannot make it to the bathroom, when she comes home and sees the toilet leaks. This has happened twice. There is no stress incontinence with cough, laugh, sneeze, lifting, etc. She is using no pads in 24 hours. She has had 3-4 urinary tract infections in the last year. Using vaginal estrogen cream once weekly. She is only using it on her clitoris and the vulvar edges. She has been noticing a vaginal odor like a cat box. She has not had visible blood in her urine. She is sexually active. She uses a lubricant. She also uses lubricant due to dryness too. There is no sensation of vaginal bulging. She has the following issues with chronic bowel function: none. There is mild pelvic pain/lower abdominal discomfort. She has no history of smoking. There is no history of blood clots or easy bleeding. There is not a family history of female cancer. ROS Const Constitutional: No chills, fatigue, fever(s), headache(s), night sweats, weakness, weight change, abnormal sleep pattern or change in appetite Eyes Eyes: No change in vision ENT ENT: No headache(s) or dry mouth Resp Respiratory: Positive for shortness of breath (mild and is in respiratory rehab); No cough, chest congestion or wheezing Cardio Cardiology: Positive for other (No chest pain.); No shortness of breath, irregular heart rhythm or lightheadedness Gastro GI: Positive for other (No nausea.); No abdominal pain, change in bowel habits, constipation, diarrhea or vomiting Musc Musculoskeletal: No abnormal gait Skin Skin: No yellowing of the eye, lesions, itchy eyes, rash or skin ulcer Neuro Neurology: No abnormal gait, confusion, dizziness, weakness, headache(s) or memory loss Psych Psychiatric: No abnormal sleep pattern, No change in appetite, No confusion and No memory loss Endo Endocrine: No fatigue, increased thirst/drinking or weight change Aller/Imm Allergy/Immunologic: No itchy eyes or wheezing Manuel/Lymp Hematologic/Lymphatic: No easy bleeding, easy bruising or enlarged lymph nodes Exam Const General: cooperative, healthy appearing, comfortable and no acute distress HENMT Head: normocephalic and atraumatic Ears: hearing grossly normal bilaterally and external ears normal Nose: external nose normal Eyes General: appearance normal, both eyes and all related structures Neck Neck: normal visual inspection and trachea midline Chest Chest palpation & inspection: normal inspection of the chest Resp Effort & Inspection: normal respiratory effort, able to speak in complete sentences and symmetric chest movement Cardio Rate: regular rate GI Inspection: normal to inspection Palpation: soft and nontender General: No CVA tenderness Skin General: no rashes or lesions noted Neuro General: patient alert, patient awake, patient oriented x3 and CN's II-XI intactbilaterally Extrem General: normal to inspection Psych Appearance: grossly normal and well kempt Mental Status: mental status grossly normal Office Procedures Post Void Residual Post Void Residual: 25cc Results POC UA Auto w/o Microscopy Office Urine Color Last Edit by Tanika Lr on 03/13/25 13:01 Office Urine Clarity Last Edit by Tanika Lr on 03/13/25 13:01 Office Urine Glucose Negative Last Edit by Tanika Lr on 03/13/25 13:0 1 Office Urine Ketones Negative Last Edit by Tanika Lr on 03/13/25 13:0 1 Office Urine Bilirubin Negative Last Edit by Tanika Lr on 03/13/25 13 :01 Office Urine Urobilinogen 0.2 mg/dL Last Edit by Tanika Lr on 5 13:01 Off Ur Spec [place] 1.005 Last Edit by Tanika Lr on 03/13/25 13:01 Office Urine pH 7 Last Edit by Tanika Lr on 03/13/25 13:01 Office Urine Protein Negative Last Edit by Tanika Lr on 03/13/25 13:0 1 Office Urine Blood Negative Last Edit by Tanika Lr on 03/13/25 13:01 Office Urine Blood Hemolyzed Negative Last Edit by Tanika Lr on 03/13 13:01 Office Urine Nitrate Negative Last Edit by Tanika Lr on 03/13/25 13:0 1 Off Ur Leukocytes Negatve Last Edit by Tanika Lr on 03/13/25 13:01 Coding Level of Care Code Off vis,new,level 4 Diagnoses Urinary tract infection N39.0 Overactive bladder N32.81 Urge incontinence N39.41 Atrophic vaginitis N95.2 Acute vaginitis N76.0 Assessment and Plan Assessment and Plan (1) Urinary tract infection: Status: Acute (2) Overactive bladder: Status: Acute (3) Urge incontinence: Status: Acute (4) Atrophic vaginitis: Status: Acute (5) Acute vaginitis: Status: Acute Orders: Orders POC UA Auto w/o Microscopy Today Z87.898 - Personal history of other specified conditions Kidney and Bladder Today N39.0 - Urinary tract infection, site not specified PVR Today N39.41 - Urge incontinence Plan renal ultrasound cystoscopy and pelvic exam, risks discussed increase dose of vaginal estrogen cream and use 3 times weekly, continue probiotics boric acid suppositories for acute vaginitis level one management including stress management Her just had a big open heart surgery and complications. She is in pulmonary rehab for long COVID. She is struggling with getting things into their schedule. We will plan right now for ultrasound and cysto/pelvic exam and infection management. When she is ready, will work on overactive bladder. She has abdominal pain with many medications since having long covid. She cannot take supplements or even many Rx meds. We discussed that PTNS is likely a good optionfor her. Plan Details Follow Up: next availabel (cystoscopy and pelvic exam) Clinical Quality Measures Falls Risk Screening/Assistive Devices Have you fallen in the past year?: No 03/13/25 0295 <Electronically signed by Ally Bailye MD> Date _ Ally Lebron Signature: Date (if applicable) CC: ~ [facility] Work Phone: Reason for referral (narrative)* Diagnostic Procedure Only (Routine) - Pending Review Specialty Diagnoses / Procedures Referred By Contac t Referred To Contact US IMAGING Diagnoses Thyroid nodule Procedures US THYROID/PARATHYROID US SOFT TISSUE HEAD & NECK REAL TIME IMGE Jeremy Jiménez APRN.[employer] PRESS OPERATOR [address] [place] [address] [place] [id number] Referral ID Status Reason Start Date Expiration Date Visits Requested Visits Authorized [id number] Pending Review Auto-Generat ed Referral 05/06/2023 06/04/2024 1 1 [facility] for referral (narrative)* Diagnostic Procedure Only (Routine) - Pending Review Specialty Diagnoses / Procedures Referred By Contac t Referred To Contact US IMAGING Diagnoses Nontoxic multinodular goiter Procedures US THYROID/PARATHYROID US SOFT TISSUE HEAD & NECK REAL TIME IMGE Dominique Alaniz MD [address] [place] [address] [place] [id number] Referral ID Status Reason Start Date Expiration Date Visits Requested Visits Authorized [id number] Pending Review Auto-Generat ed Referral 07/13/2024 08/19/2024 1 1 [facility] for referral (narrative)* Diagnostic Procedure Only (Routine) - Pending Review Specialty Diagnoses / Procedures Referred By Contac t Referred To Contact XR IMAGING Diagnoses Bilateral hip pain Procedures XR HIP BILATERAL 5V PEL/AP/LAT EACH HIP RADEX HIPS BILATERAL WITH PELVIS MINIMUM 5 VIEWS Mirella Sanchez PA-C [address] [place] [address] [place] [address] Referral ID Status Reason Start Date Expiration Date Visits Requested Visits Authorized [id number] Pending Review Auto-Generat ed Referral 08/20/2023 09/18/2024 1 1 [facility] for referral (narrative)* Diagnostic Procedure Only (Routine) - Closed Specialty Diagnoses / Procedures Referred By Contac t Referred To Contact XR IMAGING Diagnoses DDD (degenerative disc disease), lumbar Procedures XR LUMBAR GENERAL 3V AP/LAT/L5-S1 RADEX SPINE LUMBOSACRAL 2/3 VIEWS Mirella Sanchez PA-C [address] [place] [address] Xr Imaging [facility] Referral ID Status Reason Start Date Expiration Date V isits Requested Visits Authorized [id number] Closed Auto-Generate d Referral 09/09/2023 10/08/2024 1 1 * Physical Therapy (Routine) - Authorized Specialty Diagnoses / Procedures Referred By Contac t Referred To Contact [facility] Diagnoses Pain in left hip DDD (degenerative disc disease), lumbar Procedures CONSULT TO PHYSICAL THERAPY PHYSICAL THERAPY EVALUATION HIGH COMPLEX 45 MINS Mirella Sanchez PA-C [address] [place] [address] [facility] [place] [address] [place] [address] Referral ID Status Reason Start Date Expiration Date Visits Requested Visits Authorized [id number] Authorized PCP Requested Referral Auto-Generate d Referral 05/31/2023 05/30/2024 99 99 [facility] for referral (narrative)* Diagnostic Procedure Only (Routine) - Closed Specialty Diagnoses / Procedures Referred By Contac t Referred To Contact XR IMAGING Diagnoses Bilateral hip pain Procedures XR HIP BILATERAL 5V PEL/AP/LAT EACH HIP RADEX HIPS BILATERAL WITH PELVIS MINIMUM 5 VIEWS Mirella Sanchez PA-C [address] [place] [address] [place] [address] Referral ID Status Reason Start Date Expiration Date V isits Requested Visits Authorized [id number] Closed Auto-Generate d Referral 08/20/2023 09/18/2024 1 1 [facility]No reason for referral information [facility]WAs[facility] Work Phone: Reason for visit Narrative* Diagnostic Procedure Only (Routine) - Closed Specialty Diagnoses / Procedures Referred By Contac t Referred To Contact XR IMAGING Diagnoses Bilateral hip pain Procedures XR HIP BILATERAL 5V PEL/AP/LAT EACH HIP RADEX HIPS BILATERAL WITH PELVIS MINIMUM 5 VIEWS Mirella Sanchez PA-C [address] [place] [address] [place] [address] Referral ID Status Reason Start Date Expiration Date V isits Requested Visits Authorized [id number] Closed Auto-Generate d Referral 08/20/2023 09/18/2024 1 1 [facility] Summary Purpose Family History No Family History Records Found Mother Name Dates Details Family history of Elevated l ipids(272.4, E78.5) Status:Active Father Name Dates Details Family history of Hypertensi on, benign(401.1, I10) Status:Active Mother Name Dates Details Family history of Elevated l ipids(272.4, E78.5) Status:Active Father Name Dates Details Family history of Hypertensi on, benign(401.1, I10) Status:Active Mother Name Dates Details Family history of Elevated l ipids(272.4, E78.5) Status:Active Father Name Dates Details Family history of Hypertensi on, benign(401.1, I10) Status:Active Mother Name Dates Details Family history of Elevated l ipids(272.4, E78.5) Status:Active Father Name Dates Details Family history of Hypertensi on, benign(401.1, I10) Status:Active Mother Name Dates Details Family history of Elevated l ipids(272.4, E78.5) Status:Active Father Name Dates Details Family history of Hypertensi on, benign(401.1, I10) Status:Active Mother Name Dates Details Family history of Elevated l ipids(272.4, E78.5) Status:Active Father Name Dates Details Family history of Hypertensi on, benign(401.1, I10) Status:Active Mother Name Dates Details Family history of Elevated l ipids(272.4, E78.5) Status:Active Father Name Dates Details Family history of Hypertensi on, benign(401.1, I10) Status:Active Mother Name Dates Details Family history of Elevated l ipids(272.4, E78.5) Status:Active Father Name Dates Details Family history of Hypertensi on, benign(401.1, I10) Status:Active Unknown Family Member Name Dates Details Hypertension, benign: Father Status:Active Elevated lipids: Mother Status:Active Unknown Family Member Name Dates Details Hypertension, benign: Father Status:Active Elevated lipids: Mother Status:Active Unknown Family Member Name Dates Details Hypertension, benign: Father Status:Active Elevated lipids: Mother Status:Active Unknown Family Member Name Dates Details Elevated lipids: Mother Status:Active Hypertension, benign: Father Status:Active Unknown Family Member Name Dates Details Elevated lipids: Mother Status:Active Hypertension, benign: Father Status:Active Unknown Family Member Name Dates Details Hypertension, benign: Father Status:Active Elevated lipids: Mother Status:Active Unknown Family Member Name Dates Details Elevated lipids: Mother Status:Active Hypertension, benign: Father Status:Active Unknown Family Member Name Dates Details Elevated lipids: Mother Status:Active Hypertension, benign: Father Status:Active Unknown Family Member Name Dates Details Hypertension, benign: Father Status:Active Elevated lipids: Mother Status:Active Unknown Family Member Name Dates Details Hypertension, benign: Father Status:Active Elevated lipids: Mother Status:Active Unknown Family Member Name Dates Details Hypertension, benign: Father Status:Active Elevated lipids: Mother Status:Active Unknown Family Member Name Dates Details Hypertension, benign: Father Status:Active Elevated lipids: Mother Status:Active Unknown Family Member Name Dates Details Hypertension, benign: Father Status:Active Elevated lipids: Mother Status:Active Unknown Family Member Name Dates Details Hypertension, benign: Father Status:Active Elevated lipids: Mother Status:Active Unknown Family Member Name Dates Details Elevated lipids: Mother Status:Active Hypertension, benign: Father Status:Active Unknown Family Member Name Dates Details Hypertension, benign: Father Status:Active Elevated lipids: Mother Status:Active Unknown Family Member Name Dates Details Hypertension, benign: Father Status:Active Elevated lipids: Mother Status:Active Unknown Family Member Name Dates Details Hypertension, benign: Father Status:Active Elevated lipids: Mother Status:Active Unknown Family Member Name Dates Details Elevated lipids: Mother Status:Active Hypertension, benign: Father Status:Active Unknown Family Member Name Dates Details Hypertension, benign: Father Status:Active Elevated lipids: Mother Status:Active Unknown Family Member Name Dates Details Elevated lipids: Mother Status:Active Hypertension, benign: Father Status:Active Unknown Family Member Name Dates Details Hypertension, benign: Father Status:Active Elevated lipids: Mother Status:Active Unknown Family Member Name Dates Details Hypertension, benign: Father Status:Active Elevated lipids: Mother Status:Active Unknown Family Member Name Dates Details Hypertension, benign: Father Status:Active Elevated lipids: Mother Status:Active Unknown Family Member Name Dates Details Hypertension, benign: Father Status:Active Elevated lipids: Mother Status:Active Relationship Condition Age at Onset Recorded Date/T jocelin father Malignant neoplasm Unknown mother Malignant neoplasm Unknown Advance Directives No Advanced Directives Records Found Advance Directive Response Recorded Date/ Time Advance Directives on File No Augus t 2024 10:51am Living Will Yes January 12 10:51am Do you have a Healthcare Power of Roll Forming Machine Set Up Operator? Yes January 12, 2025 10:51am Advance Directive Response Recorded Date/ Time Advance Directives on File No Augus t 2024 10:51am Living Will Yes January 12 10:51am Do you have a Healthcare Power of Roll Forming Machine Set Up Operator? Yes January 12, 2025 10:51am Do you have a Healthcare Power of Roll Forming Machine Set Up Operator? Yes March 02, 2025 4:01pm Chief Complaint left shoulder pain* A telephone visit (audio only) between the patient (at the originating site) and the provider (at the distant site) was utilized to provide this telehealth service. * Verbal consent was requested and obtained from TIFFANIE GOMEZ on this date, 06/16/2021 03:20 PM , for a telehealth visit. here for side pain.here for side pain.Follow-up nodular thyroid* A telephone visit (audio only) between the patient (at the originating site) and the provider (at the distant site) was utilized to provide this telehealth service. * Verbal consent was requested and obtained from TIFFANIE GOMEZ on this date, 06/16/2021 03:20 PM , for a telehealth visit. has pain on L side, feeling fatigued.has pain on L side, feeling fatigued.* ASPEN * LAST PAP: 12/12/20- WNL -HPV * LAST MAMM: 12/31/2020 * [employer]: Preet Young MA II * ASPEN * LAST PAP: 12/12/20- WNL -HPV * LAST MAMM: 12/31/2020 * [employer]INT[employer]ENT [employer]: Preet Young MA II * ASPEN * LAST PAP: 12/12/2020- WNL -HPV * LAST MAMM: 12/12/2021 * [employer]: Preet Young MA II Health Concerns Infection Onset Date Last Indicated Resolved Time COVID-19 Rule-Out 03/02/2022 03/02/2022 03/03/2022 8:04 AM EDT COVID-19 Confirmed 03/02/2022 03/02/2022 Chief Complaint and Reason for Visit Chief Complaint LT FLANK PAIN Chief Complaint Admit Date LEFT SHOULDER August 31, 2024 10:0 3am Room 4 August 31, 2024 10:1 7am Abdominal complaints October 05, 2024 10:17 am Annual (OPERATING ROOM RN) December 26, 2024 8:55 am Reason for Visit Admit Date Left shoulder pain August 31, 2024 10:0 3am Gas bloat syndrome October 05, 2024 10:17a m Heartburn symptom October 05, 2024 10:17a m Encounter for routine gynecological exam ination December 26, 2024 8:55am Chief Complaint Admit Date Abdominal complaints October 05, 2024 10:17 am Annual (OPERATING ROOM RN) December 26, 2024 8:55 am U09.9 Post-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 [facility] 2024 10:31am 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, dyspnea January 15, 2025 9:54am Screening for breast cancer January 18, 2025 11:37am Reason for Visit Admit Date Gas bloat syndrome October 05, 2024 10:17a m Heartburn symptom October 05, 2024 10:17a m Atrophic vaginitis December 26, 2024 8:55 am Encounter for routine gynecological exam ination December 26, 2024 8:55am Chief Complaint Admit Date Abdominal complaints October 05, 2024 10:17 am Annual (OPERATING ROOM RN) December 26, 2024 8:55 am U09.9 Post-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 [facility] 2024 10:31am Screening for breast cancer January 18, 2025 11:37am 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, dyspnea January 22, 2025 10:00am Chief Complaint Admit Date Abdominal complaints October 05, 2024 10:17 am Annual (OPERATING ROOM RN) December 26, 2024 8:55 am U09.9 Post-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 [facility] 2024 10:31am Screening for breast cancer January 18, 2025 11:37am 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, dyspnea January 26, 2025 10:00am Chief Complaint Admit Date Annual (OPERATING ROOM RN) December 26, 2024 8:55 am U09.9 Post-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 [facility] 2024 10:31am Screening for breast cancer January 18, 2025 11:37am 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, dyspnea January 26, 2025 10:00am 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, dyspnea February 26, 2025 10:00am 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, dyspnea February 28, 2025 9:27am Reason for Visit Admit Date Atrophic vaginitis December 26, 2024 8:55 am Encounter for routine gynecological exam ination December 26, 2024 8:55am Chief Complaint Admit Date Annual (OPERATING ROOM RN) December 26, 2024 8:55 am U09.9 Post-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 [facility] 2024 10:31am Screening for breast cancer January 18, 2025 11:37am 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, dyspnea January 26, 2025 10:00am 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, dyspnea February 26, 2025 10:00am 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, dyspnea March 07, 2025 10:00am Reason for Visit Admit Date Atrophic vaginitis December 26, 2024 8:55 am Encounter for routine gynecological exam ination December 26, 2024 8:55am Abdominal pain March 08, 2025 5: 26am Gas bloat syndrome March 08, 2025 5: 26am Chief Complaint Admit Date Annual (OPERATING ROOM RN) December 26, 2024 8:55 am U09.9 Post-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 [facility] 2024 10:31am Screening for breast cancer January 18, 2025 11:37am 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, dyspnea January 26, 2025 10:00am [id number] February 26, 2025 10:00am FREQUENCY March 13, 2025 1 2:37pm 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, dyspnea March 26, 2025 10:00am Reason for Visit Admit Date Atrophic vaginitis December 26, 2024 8:55 am Encounter for routine gynecological exam ination December 26, 2024 8:55am Abdominal pain March 08, 2025 5: 26am Gas bloat syndrome March 08, 2025 5: 26am Acute vaginitis March 13, 2025 1 2:37pm Atrophic vaginitis March 13, 2025 1 2:37pm Overactive bladder March 13, 2025 1 2:37pm Urge incontinence March 13, 2025 1 2:37pm Urinary tract infection March 13 12:37pm Additional Source Comments INFORMATION SOURCE (unrecogn ized section and content) DATE CREATED AUTHOR 09/10/2018 [facility] DATE CREATED AUTHOR AUTHOR'S ORGANIZ ATION 06/20/2020 [facility] DATE CREATED AUTHOR AUTHOR'S ORGANIZ ATION 12/18/2022 [facility] DATE CREATED AUTHOR AUTHOR'S ORGANIZ ATION 12/18/2022 [facility] DATE CREATED AUTHOR AUTHOR'S ORGANIZ ATION 12/29/2022 [facility] DATE CREATED AUTHOR AUTHOR'S ORGANIZ ATION 10/16/2023 [facility] DATE CREATED AUTHOR AUTHOR'S ORGANIZ ATION 07/03/2024 [facility] DATE CREATED AUTHOR AUTHOR'S ORGANIZ ATION 02/21/2025 [facility] DATE CREATED AUTHOR AUTHOR'S ORGANIZ ATION 04/04/2025 [facility] DATE CREATED AUTHOR AUTHOR'S ORGANIZ ATION 04/10/[address] [facility] Source Comments (unrecognize d section and content) In the event this informatio n is protected by the Federal Confidentiality of Alcohol and Drug Abuse Patient Records regulations: The Federal rules restrict any use of the information to criminally investigate or prosecute any alcohol or drug abuse patient.[facility] HospitalIn the event this information is protected by the Federal Confidentiality of Alcohol and Drug Abuse Patient Records regulations: The Federal rules restrict any use of the information to criminally investigate or prosecute any alcohol or drug abuse patient.[facility] HospitalIn the event this information is protected by the Federal Confidentiality of Alcohol and Drug Abuse Patient Records regulations: The Federal rules restrict any use of the information to criminally investigate or prosecute any alcohol or drug abuse patient.[facility] HospitalIn the event this information is protected by the Federal Confidentiality of Alcohol and Drug Abuse Patient Records regulations: The Federal rules restrict any use of the information to criminally investigate or prosecute any alcohol or drug abuse patient.[facility] HospitalIn the event this information is protected by the Federal Confidentiality of Alcohol and Drug Abuse Patient Records regulations: The Federal rules restrict any use of the information to criminally investigate or prosecute any alcohol or drug abuse patient.[facility] HospitalIn the event this information is protected by the Federal Confidentiality of Alcohol and Drug Abuse Patient Records regulations: The Federal rules restrict any use of the information to criminally investigate or prosecute any alcohol or drug abuse patient.[facility] HospitalIn the event this information is protected by the Federal Confidentiality of Alcohol and Drug Abuse Patient Records regulations: The Federal rules restrict any use of the information to criminally investigate or prosecute any alcohol or drug abuse patient.[facility] HospitalIn the event this information is protected by the Federal Confidentiality of Alcohol and Drug Abuse Patient Records regulations: The Federal rules restrict any use of the information to criminally investigate or prosecute any alcohol or drug abuse patient.[facility] HospitalIn the event this information is protected by the Federal Confidentiality of Alcohol and Drug Abuse Patient Records regulations: The Federal rules restrict any use of the information to criminally investigate or prosecute any alcohol or drug abuse patient.[facility] HospitalIn the event this information is protected by the Federal Confidentiality of Alcohol and Drug Abuse Patient Records regulations: The Federal rules restrict any use of the information to criminally investigate or prosecute any alcohol or drug abuse patient.[facility] HospitalIn the event this information is protected by the Federal Confidentiality of Alcohol and Drug Abuse Patient Records regulations: The Federal rules restrict any use of the information to criminally investigate or prosecute any alcohol or drug abuse patient.[facility] HospitalIn the event this information is protected by the Federal Confidentiality of Alcohol and Drug Abuse Patient Records regulations: The Federal rules restrict any use of the information to criminally investigate or prosecute any alcohol or drug abuse patient.[facility] HospitalIn the event this information is protected by the Federal Confidentiality of Alcohol and Drug Abuse Patient Records regulations: The Federal rules restrict any use of the information to criminally investigate or prosecute any alcohol or drug abuse patient.[facility] HospitalIn the event this information is protected by the Federal Confidentiality of Alcohol and Drug Abuse Patient Records regulations: The Federal rules restrict any use of the information to criminally investigate or prosecute any alcohol or drug abuse patient.[facility] HospitalIn the event this information is protected by the Federal Confidentiality of Alcohol and Drug Abuse Patient Records regulations: The Federal rules restrict any use of the information to criminally investigate or prosecute any alcohol or drug abuse patient.[facility] HospitalIn the event this information is protected by the Federal Confidentiality of Alcohol and Drug Abuse Patient Records regulations: The Federal rules restrict any use of the information to criminally investigate or prosecute any alcohol or drug abuse patient.[facility] HospitalIn the event this information is protected by the Federal Confidentiality of Alcohol and Drug Abuse Patient Records regulations: The Federal rules restrict any use of the information to criminally investigate or prosecute any alcohol or drug abuse patient.[facility] HospitalIn the event this information is protected by the Federal Confidentiality of Alcohol and Drug Abuse Patient Records regulations: The Federal rules restrict any use of the information to criminally investigate or prosecute any alcohol or drug abuse patient.[facility] HospitalIn the event this information is protected by the Federal Confidentiality of Alcohol and Drug Abuse Patient Records regulations: The Federal rules restrict any use of the information to criminally investigate or prosecute any alcohol or drug abuse patient.[facility] HospitalIn the event this information is protected by the Federal Confidentiality of Alcohol and Drug Abuse Patient Records regulations: The Federal rules restrict any use of the information to criminally investigate or prosecute any alcohol or drug abuse patient.[facility] HospitalIn the event this information is protected by the Federal Confidentiality of Alcohol and Drug Abuse Patient Records regulations: The Federal rules restrict any use of the information to criminally investigate or prosecute any alcohol or drug abuse patient.[facility] HospitalIn the event this information is protected by the Federal Confidentiality of Alcohol and Drug Abuse Patient Records regulations: The Federal rules restrict any use of the information to criminally investigate or prosecute any alcohol or drug abuse patient.[facility] HospitalIn the event this information is protected by the Federal Confidentiality of Alcohol and Drug Abuse Patient Records regulations: The Federal rules restrict any use of the information to criminally investigate or prosecute any alcohol or drug abuse patient.[facility] HospitalIn the event this information is protected by the Federal Confidentiality of Alcohol and Drug Abuse Patient Records regulations: The Federal rules restrict any use of the information to criminally investigate or prosecute any alcohol or drug abuse patient.[facility] HospitalIn the event this information is protected by the Federal Confidentiality of Alcohol and Drug Abuse Patient Records regulations: The Federal rules restrict any use of the information to criminally investigate or prosecute any alcohol or drug abuse patient.[facility] HospitalIn the event this information is protected by the Federal Confidentiality of Alcohol and Drug Abuse Patient Records regulations: The Federal rules restrict any use of the information to criminally investigate or prosecute any alcohol or drug abuse patient.[facility] HospitalIn the event this information is protected by the Federal Confidentiality of Alcohol and Drug Abuse Patient Records regulations: The Federal rules restrict any use of the information to criminally investigate or prosecute any alcohol or drug abuse patient.[facility] HospitalIn the event this information is protected by the Federal Confidentiality of Alcohol and Drug Abuse Patient Records regulations: The Federal rules restrict any use of the information to criminally investigate or prosecute any alcohol or drug abuse patient.[facility] HospitalIn the event this information is protected by the Federal Confidentiality of Alcohol and Drug Abuse Patient Records regulations: The Federal rules restrict any use of the information to criminally investigate or prosecute any alcohol or drug abuse patient.[facility] HospitalIn the event this information is protected by the Federal Confidentiality of Alcohol and Drug Abuse Patient Records regulations: The Federal rules restrict any use of the information to criminally investigate or prosecute any alcohol or drug abuse patient.[facility] HospitalIn the event this information is protected by the Federal Confidentiality of Alcohol and Drug Abuse Patient Records regulations: The Federal rules restrict any use of the information to criminally investigate or prosecute any alcohol or drug abuse patient.[facility] HospitalIn the event this information is protected by the Federal Confidentiality of Alcohol and Drug Abuse Patient Records regulations: The Federal rules restrict any use of the information to criminally investigate or prosecute any alcohol or drug abuse patient.[facility] HospitalIn the event this information is protected by the Federal Confidentiality of Alcohol and Drug Abuse Patient Records regulations: The Federal rules restrict any use of the information to criminally investigate or prosecute any alcohol or drug abuse patient.[facility] HospitalIn the event this information is protected by the Federal Confidentiality of Alcohol and Drug Abuse Patient Records regulations: The Federal rules restrict any use of the information to criminally investigate or prosecute any alcohol or drug abuse patient.[facility] HospitalIn the event this information is protected by the Federal Confidentiality of Alcohol and Drug Abuse Patient Records regulations: The Federal rules restrict any use of the information to criminally investigate or prosecute any alcohol or drug abuse patient.[facility] HospitalIn the event this information is protected by the Federal Confidentiality of Alcohol and Drug Abuse Patient Records regulations: The Federal rules restrict any use of the information to criminally investigate or prosecute any alcohol or drug abuse patient.[facility] HospitalIn the event this information is protected by the Federal Confidentiality of Alcohol and Drug Abuse Patient Records regulations: The Federal rules restrict any use of the information to criminally investigate or prosecute any alcohol or drug abuse patient.[facility] HospitalIn the event this information is protected by the Federal Confidentiality of Alcohol and Drug Abuse Patient Records regulations: The Federal rules restrict any use of the information to criminally investigate or prosecute any alcohol or drug abuse patient.[facility] HospitalIn the event this information is protected by the Federal Confidentiality of Alcohol and Drug Abuse Patient Records regulations: The Federal rules restrict any use of the information to criminally investigate or prosecute any alcohol or drug abuse patient.[facility] HospitalIn the event this information is protected by the Federal Confidentiality of Alcohol and Drug Abuse Patient Records regulations: The Federal rules restrict any use of the information to criminally investigate or prosecute any alcohol or drug abuse patient.[facility] HospitalIn the event this information is protected by the Federal Confidentiality of Alcohol and Drug Abuse Patient Records regulations: The Federal rules restrict any use of the information to criminally investigate or prosecute any alcohol or drug abuse patient.[facility] HospitalIn the event this information is protected by the Federal Confidentiality of Alcohol and Drug Abuse Patient Records regulations: The Federal rules restrict any use of the information to criminally investigate or prosecute any alcohol or drug abuse patient.[facility] HospitalIn the event this information is protected by the Federal Confidentiality of Alcohol and Drug Abuse Patient Records regulations: The Federal rules restrict any use of the information to criminally investigate or prosecute any alcohol or drug abuse patient.[facility] HospitalIn the event this information is protected by the Federal Confidentiality of Alcohol and Drug Abuse Patient Records regulations: The Federal rules restrict any use of the information to criminally investigate or prosecute any alcohol or drug abuse patient.[facility] HospitalIn the event this information is protected by the Federal Confidentiality of Alcohol and Drug Abuse Patient Records regulations: The Federal rules restrict any use of the information to criminally investigate or prosecute any alcohol or drug abuse patient.[facility] Reason for Visit (unrecogniz ed section and content) Reason Comments Cough ST, GRAHAM, chest conges tion, ELISHA ear pain x3 weeks Reason Comments Results Reason Comments Covid19 Concern Exposure, GRAHAM, nasal congestion, ELISHA ear pain, faitgue x1 week Reason Comments Ear Problem Bilateral ear pain x 1 month Reason Comments Medication Problem Reason Comments Chest Congestion sinus pressure, drai nage and cough x 1 week increased on wednesday Reason Comments Thyroid Nodule FNA left lower Reason Comments Sore Throat Sinus drainage,heada kelsey x1 wk Reason Comments Ear Problem Est. B/l ear pressur e, tinnitus and crackling. Denies otalgia and otorrhea. Mouth/Lip Problem Tongue feels burnt. Reason Comments New Pain Reason Comments PT Eval Specialty Diagnoses / Procedures Referred By Contac t Referred To Contact [facility] Diagnoses Pain in left hip DDD (degenerative disc disease), lumbar Procedures CONSULT TO PHYSICAL THERAPY PHYSICAL THERAPY EVALUATION HIGH COMPLEX 45 MINS Mirella Sanchez PA-C [address] [place] [address] [facility] [address] [place] [address] Referral ID Status Reason Start Date Expiration Date Visits Requested Visits Authorized [id number] Authorized PCP Requested Referral Auto-Generate d Referral 05/31/2023 05/30/2024 99 99 Reason Comments Ear Pain Ear pain in the left ear from 1-2 days ago, sharp pain that sometimes flares up from time to time, Reason Comments UTI Burning and frequenc y x this AM Reason Comments Hair/Scalp Problem Reason Comments Appointment [facility] follo w up Reason Comments Patient Question Reason Comments Follow Up Reason Comments Radio Gen [facility] Radiology Service Pr ogress NotePATIENT NAME: Tiffanie RamseyMRN: [id number] OF SERVICE: November 30, 2024TIME: 11:45 AMPATIENT IDENTITY VERIFICATION COMPLETED USING TWO (2) IDENTIFIERS: Name and Date of confirmed by patient verbally.FALL SCREENING: Has the patient had 2 falls in the last year or 1 fall with injury or currently using an Ambulatory Assistive Device (Walker, Cane, Wheelchair, Crutches, etc.)? NoPATIENT GENDER DATA: Assigned female at . status: Reason Comments Results Lab and Bach test re sults Reason Comments Spirometry Specialty Diagnoses / Procedures Referred By Contac t Referred To Contact [facility] Diagnoses Shortness of breath Procedures SPIROMETRY - BASELINE AND POST DILATOR BRNCDILAT RSPSE SPMTRY PRE&POST-BRNCDILAT ADMN Taqueria Vieira MD [address] [place] [address] Phone: tel: fax: [facility] [place] [facility] [address] [place] [phone] Referral ID Status Reason Start Date Expiration Date V isits Requested Visits Authorized [id number] Closed Auto-Generate d Referral 11/30/2024 12/30/2025 1 1 Specialty Diagnoses / Procedures Referred By Contac t Referred To Contact [facility] Diagnoses Shortness of breath Procedures LUNG VOLUMES Taqueria Vieira MD [address] [place] [address] Phone: tel: fax: [facility] [place] [address] [place] [phone] Referral ID Status Reason Start Date Expiration Date V isits Requested Visits Authorized [id number] Closed Auto-Generate d Referral 11/30/2024 12/30/2025 1 1 Specialty Diagnoses / Procedures Referred By Contac t Referred To Contact [facility] Diagnoses Shortness of breath Procedures LUNG DIFFUSION CAPACITY (DLCO) DIFFUSING CAPACITY Taqueria Vieira MD [address] [place] [address] Phone: tel: fax: [facility] [address] [id number] Referral ID Status Reason Start Date Expiration Date V isits Requested Visits Authorized [id number] Closed Auto-Generate d Referral 11/30/2024 12/30/2025 1 1 Specialty Diagnoses / Procedures Referred By Contac t Referred To Contact [facility] Diagnoses Shortness of breath Procedures SIX MINUTE WALK CARDIOPULMONARY EXERCISE STRESS Taqueria Vieira MD [address] [place] [address] Phone: tel: fax: [facility] [address] [phone] Referral ID Status Reason Start Date Expiration Date V isits Requested Visits Authorized [id number] Closed Auto-Generate d Referral 11/30/2024 12/30/2025 1 1 Reason Comments New Patient Evaluation Post covid-19 con dition, unspecified [U09.9] Brain fog [R41.89] Specialty Diagnoses / Procedures Referred By Contac t Referred To Contact Gerontology Diagnoses Post covid-19 condition, unspecified Brain fog Procedures CONSULT TO GERIATRICS OFFICE/OUTPATIENT NEW HIGH MDM 60 MINUTES Taqueria Vieira MD [address] [place] [address] Phone: tel: fax: Referral ID Status Reason Start Date Expiration Date V isits Requested Visits Authorized [id number] Closed PCP Requested Referral 11/30/2024 11/30/2025 1 1 Reason Comments New Patient Post Covid Reason Comments Wellness Specialty Diagnoses / Procedures Referred By Contac t Referred To Contact Diagnoses Fatigue, unspecified type Post covid-19 condition, unspecified Exercise intolerance Shortness of breath Brain fog Myalgia Arthralgia, unspecified joint Abdominal discomfort Procedures CONSULT TO WELLNESS PHYSICIAN OFFICE/OUTPATIENT NEW HIGH MDM 60 MINUTES Taqueria Vieira MD [address] [place] [address] Phone: tel: fax: Referral ID Status Reason Start Date Expiration Date V isits Requested Visits Authorized [id number] Closed PCP Requested Referral 11/30/2024 11/30/2025 1 1 Reason Onset Date Comments Results 12/19/2024 Reason Comments Faxed to Dr. Gibson Reason Comments GERD Abdominal discomfort Specialty Diagnoses / Procedures Referred By Contac t Referred To Contact Gastroenterology Diagnoses Post covid-19 condition, unspecified Gastroesophageal reflux disease with esophagitis, unspecified whether hemorrhage Abdominal discomfort Procedures OFFICE/OUTPATIENT NEW HIGH [facility] 60 MINUTES Taqueria Vieira MD [address] [place] [address] Phone: tel: fax: Referral ID Status Reason Start Date Expiration Date V isits Requested Visits Authorized [id number] Closed PCP Requested Referral 11/30/2024 11/30/2025 1 1 Care Teams (unrecognized sec tion and content) Microbiology Teacher Relationship Specialty Start Date End Date Taqueria Vieira MD [address] [place], [place] [address] PCP - General Family Practice 06/04/21 Microbiology Teacher Relationship Specialty Start Date End Date Taqueria Vieira MD [address] [place], [place] [id number] PCP - General Family Practice 06/04/21 Microbiology Teacher Relationship Specialty Start Date End Date Taqueria Vieira MD [address] [place], [place] [id number] PCP - General Family Medicine 06/04/21 Microbiology Teacher Relationship Specialty Start Date End Date Taqueria Vieira MD [address] [place] [address] PCP - General Family Medicine 06/04/21 Microbiology Teacher Relationship Specialty Start Date End Date Taqueria Vieira MD [address] [facility], [place] 5[address]41 PCP - General Family Medicine 06/04/21 Microbiology Teacher Relationship Specialty Start Date End Date Taqueria Vieira MD [address] [facility], [place] [id number] PCP - General Family Medicine 06/04/21 Microbiology Teacher Relationship Specialty Start Date End Date Jeermy Ramirez, LEGGER PRESS OPERATOR.PANAMA HAT HYDRAULIC PRESS OPERATOR [address] [place] [address] PCP - General Internal Medicine 05/06/23 Microbiology Teacher Relationship Specialty Start Date End Date Jeremy Ramirez, LEGGER PRESS OPERATOR.PANAMA HAT HYDRAULIC PRESS OPERATOR [address] [place] [address] PCP - General Internal Medicine 05/06/23 Microbiology Teacher Relationship Specialty Start Date End Date Jeremy Ramirez, LEGGER PRESS OPERATOR.PANAMA HAT HYDRAULIC PRESS OPERATOR [address] [place] [address] PCP - General Internal Medicine 05/06/23 Microbiology Teacher Relationship Specialty Start Date End Date Jeremy Ramirez, LEGGER PRESS OPERATOR.PANAMA HAT HYDRAULIC PRESS OPERATOR [address] [place] [address] PCP - General Internal Medicine 05/06/23 Microbiology Teacher Relationship Specialty Start Date End Date Jeremy Ramirez, LEGGER PRESS OPERATOR.PANAMA HAT HYDRAULIC PRESS OPERATOR [address] [place] [address] PCP - General Internal Medicine 05/06/23 Celi Wahl MD [address] [place] [address] Internal Medicine 06/08/23 Joe Shah MD [address] [address] Ent - Otolaryngology 06/08/23 Autumn Omalley PA-C [address] [place] [address] Dermatology 06/08/23 Dominique Fisher MD [address] [place] [address] Endocrinology 06/08/23 Microbiology Teacher Relationship Specialty Start Date End Date Jeremy Ramirez, LEGGER PRESS OPERATOR.PANAMA HAT HYDRAULIC PRESS OPERATOR [address] [place] [address] PCP - General Internal Medicine 05/06/23 Celi Wahl MD [address] [place] [address] Internal Medicine 06/08/23 Joe Shah MD [address] [address] Ent - Otolaryngology 06/08/23 Autumn Omalley PA-C [address] [place] [address] Dermatology 06/08/23 Dominique Fisher MD [address] [place] [address] Endocrinology 06/08/23 Microbiology Teacher Relationship Specialty Start Date End Date Jeremy Ramirez, LEGGER PRESS OPERATOR.PANAMA HAT HYDRAULIC PRESS OPERATOR [address] [place] [address] PCP - General Internal Medicine 05/06/23 Celi Wahl MD [address] [place], [place] [id number] Internal Medicine 06/08/23 Joe Shah MD [address] [address] Ent - Otolaryngology 06/08/23 Autumn Omalley PA-C [address] [place] [address] Dermatology 06/08/23 Dominique Fisher MD [address] [place] [address] Endocrinology 06/08/23 Microbiology Teacher Relationship Specialty Start Date End Date Jeremy Ramirez, LEGGER PRESS OPERATOR.PANAMA HAT HYDRAULIC PRESS OPERATOR [address] [place] [address] PCP - General Internal Medicine 05/06/23 Celi Wahl MD [address] [place] [address] Internal Medicine 06/08/23 Joe Shah MD [address] [address] Ent - Otolaryngology 06/08/23 Autumn Omalley PA-C [address] [place] [address] Dermatology 06/08/23 Dominique Fisher MD [address] [place] [address] Endocrinology 06/08/23 Microbiology Teacher Relationship Specialty Start Date End Date Jeremy Ramirez, LEGGER PRESS OPERATOR.PANAMA HAT HYDRAULIC PRESS OPERATOR [address] [place] [address] PCP - General Internal Medicine 05/06/23 Celi Wahl MD [address] [place] [address] Internal Medicine 06/08/23 Joe Shah MD [address] [address] Ent - Otolaryngology 06/08/23 Autumn Omalley PA-C [address] [place] [address] Dermatology 06/08/23 Dominique Fisher MD [address] [place], [place] [address] Endocrinology 06/08/23 Microbiology Teacher Relationship Specialty Start Date End Date Jeremy Ramirez, LEGGER PRESS OPERATOR.PANAMA HAT HYDRAULIC PRESS OPERATOR [address] [place], [place] [id number] PCP - General Internal Medicine 05/06/23 Celi Wahl MD [address] [place] [address] Internal Medicine 06/08/23 Joe Shah MD [address] [address] Ent - Otolaryngology 06/08/23 Autumn Omalley PA-C [address] [place] [address] Dermatology 06/08/23 Dominique Fisher MD [address] [place] [address] Endocrinology 06/08/23 Team Status: Active Member Role Status Dates Dr. Bello Davenport MD Primary Care Provider Active Team Status: Inactive Member Role Status Dates Dr. Bello Davenport MD Primary Care Provider, Attending Provider Active Microbiology Teacher Relationship Specialty Start Date End Date Jeremy Ramirez, LEGGER PRESS OPERATOR.PANAMA HAT HYDRAULIC PRESS OPERATOR [address] [place] [address] PCP - General Internal Medicine 05/06/23 Celi Wahl MD [address] [place] [address] Internal Medicine 06/08/23 Joe Shah MD [address] [address] Ent - Otolaryngology 06/08/23 Autumn Omalley PA-C [address] [place] [address] Dermatology 06/08/23 Dominique Fisher MD [address] [facility] [address] Endocrinology 06/08/23 Team Status: Inactive Member Role Status Dates Dr. Bello Davenport MD Primary Care Provi rosa, Attending Provider, Referring Provider Active Microbiology Teacher Relationship Specialty Start Date End Date Jeremy Ramirez, LEGGER PRESS OPERATOR.PANAMA HAT HYDRAULIC PRESS OPERATOR [address] [place] [address] PCP - General Internal Medicine 05/06/23 Celi Wahl MD [address] [place] [address] Internal Medicine 06/08/23 Joe Shah MD [address] [address] Ent - Otolaryngology 06/08/23 Autumn Omalley PA-C [address] [place] [address] Dermatology 06/08/23 Dominique Fisher MD [address] [place], [place] [address] Endocrinology 06/08/23 Microbiology Teacher Relationship Specialty Start Date End Date Jeremy Ramirez, LEGGER PRESS OPERATOR.PANAMA HAT HYDRAULIC PRESS OPERATOR [address] [place] [address] PCP - General Internal Medicine 05/06/23 Celi Wahl MD [address] [place] [address] Internal Medicine 06/08/23 Joe Shah MD [address] [address] Ent - Otolaryngology 06/08/23 Autumn Omalley PA-C [address] [place] [address] Dermatology 06/08/23 Dominique Fisher MD [address] [place] [address] Endocrinology 06/08/23 Microbiology Teacher Relationship Specialty Start Date End Date Issac Bello Mac [address] [place] [address] PCP - General Gerontology 10/15/23 Celi Wahl MD [address] [place] [address] Internal Medicine 06/08/23 Joe Shah MD [address] [address] Ent - Otolaryngology 06/08/23 Autumn Omalley PA-C [address] [place] [address] Dermatology 06/08/23 Dominique Fisher MD [address] [place] [place], [place] [address] Endocrinology 06/08/23 Microbiology Teacher Relationship Specialty Start Date End Date Bello Davenport Chi [address] [address] PCP - General Gerontology 10/15/23 Celi Wahl MD [address] [place] [address] Internal Medicine 06/08/23 Joe Shah MD [address] [address] Ent - Otolaryngology 06/08/23 Autumn Omalley PA-C [address] [place] [address] Dermatology 06/08/23 Dominique Fisher MD [address] [place] [address] Endocrinology 06/08/23 Microbiology Teacher Relationship Specialty Start Date End Date Jeremy Ramirez, LEGGER PRESS OPERATOR.PANAMA HAT HYDRAULIC PRESS OPERATOR [address] [place] [address] PCP - General Internal Medicine 05/06/23 10/14/23 Celi Wahl MD [address] [place] [address] Internal Medicine 06/08/23 Joe Shah MD [address] [address] Ent - Otolaryngology 06/08/23 Autumn Omalley PA-C [address] [place] [address] Dermatology 06/08/23 Dominique Fisher MD [address] [facility] [place] [address] Endocrinology 06/08/23 Team Status: Inactive Member Role Status Dates Dr. Bello Davenport MD Primary Care Provider Active Start: May 22, 2024 End: May 22, 2024 Dr. Bello Davenport MD Attending Provider Active Start: May 22, 2024 End: May 22, 2024 Dr. Bello Davenport MD Referring Provider Active Start: May 22, 2024 End: May 22, 2024 Team Status: Inactive Member Role Status Dates Dr. Bello Davenport MD Primary Care Provider Active Start: August 11, 2024 End: August 11, 2024 Dr. Bello Davenport MD Attending Provider Active Start: August 11, 2024 End: August 11, 2024 Microbiology Teacher Relationship Specialty Start Date End Date Bello Davenport Chi [address] [address] PCP - General Gerontology 10/15/23 Celi Wahl MD [address] [place] [address] Internal Medicine 06/08/23 Joe Shah MD [address] [address] Ent - Otolaryngology 06/08/23 Autumn Omalley PA-C [address] [place] [address] Dermatology 06/08/23 Dominique Fisher MD [address] [place] [address] Endocrinology 06/08/23 Microbiology Teacher Relationship Specialty Start Date End Date Bello Davenport Chi [address] [place] [address] PCP - General Gerontology 10/15/23 Celi Wahl MD [address] [place] [address] Internal Medicine 06/08/23 Joe Shah MD [address] [address] Ent - Otolaryngology 06/08/23 Autumn Omalley PA-C [address] [place] [address] Dermatology 06/08/23 Dominique Fisher MD [address] [place] [address] Endocrinology 06/08/23 Microbiology Teacher Relationship Specialty Start Date End Date Bello Davenport Chi [address] [facility] [address] [place] [address] PCP - General Gerontology 10/15/23 Celi Wahl MD [address] [place] [address] Internal Medicine 06/08/23 Joe Shah MD [address] [address] Ent - Otolaryngology 06/08/23 Autumn Omalley PA-C [address] [place] [address] Dermatology 06/08/23 Dominique Fisher MD [address] [place] [place], [place] [address] Endocrinology 06/08/23 Microbiology Teacher Relationship Specialty Start Date End Date Bello Davenport Chi [address] [facility] [address] [place], [place] [address] PCP - General Gerontology 10/15/23 Celi Wahl MD [address] [place], [place] [id number] Internal Medicine 06/08/23 Joe Shah MD [address] [address] Ent - Otolaryngology 06/08/23 Autumn Omalley PA-C [address] [place] [address] Dermatology 06/08/23 Dominique Fisher MD [address] [place], [place] [address] Endocrinology 06/08/23 Microbiology Teacher Relationship Specialty Start Date End Date Bello Davenport Chi [address] [facility] [address] [place], [place] [address] PCP - General Gerontology 10/15/23 Celi Wahl MD [address] [place] [address] Internal Medicine 06/08/23 Joe Shah MD [address] [address] Ent - Otolaryngology 06/08/23 Autumn Omalley PA-C [address] [place] [address] Dermatology 06/08/23 Dominique Fisher MD [address] [place] [address] Endocrinology 06/08/23 Microbiology Teacher Relationship Specialty Start Date End Date Bello Davenport Chi [address] [place] [id number] PCP - General Gerontology 10/15/23 Celi Wahl MD [address] [place] [address] Internal Medicine 06/08/23 Joe Shah MD [address] [address] Ent - Otolaryngology 06/08/23 Autumn Omalley PA-C [address] [place] [address] Dermatology 06/08/23 Dominique Fisher MD [address] [place] [address] Endocrinology 06/08/23 Microbiology Teacher Relationship Specialty Start Date End Date Bello Davenport Chi [address] [place] [address] PCP - General Gerontology 10/15/23 Celi Wahl MD [address] [place] [address] Internal Medicine 06/08/23 Joe Shah MD [address] [address] Ent - Otolaryngology 06/08/23 Autumn Omalley PA-C [address] [place] [address] Dermatology 06/08/23 Dominique Fisher MD [address] [place] [address] Endocrinology 06/08/23 Microbiology Teacher Relationship Specialty Start Date End Date Bello Davenport Chi [address] [facility] [address] [place] [address] PCP - General Gerontology 10/15/23 Celi Wahl MD [address] [place] [address] Internal Medicine 06/08/23 Joe Shah MD [address] [address] Ent - Otolaryngology 06/08/23 Autumn Omalley PA-C [address] [place] [address] Dermatology 06/08/23 Dominique Fisher MD [address] [facility] [address] Endocrinology 06/08/23 Microbiology Teacher Relationship Specialty Start Date End Date Bello Davenport Chi [address] [place], [place] [address] PCP - General Gerontology 10/15/23 Celi Wahl MD [address] [place], [place] [id number] Internal Medicine 06/08/23 Joe Shah MD [address] [address] Ent - Otolaryngology 06/08/23 Autumn Omalley PA-C [address] [place] [address] Dermatology 06/08/23 Dominique Fisher MD [address] [place] [address] Endocrinology 06/08/23 Microbiology Teacher Relationship Specialty Start Date End Date Bello Davenport Chi [address] [address] PCP - General Gerontology 10/15/23 Celi Wahl MD [address] [place] [address] Internal Medicine 06/08/23 Joe Shah MD [address] [address] Ent - Otolaryngology 06/08/23 Autumn Omalley PA-C [address] [place] [address] Dermatology 06/08/23 Dominique Fisher MD [address] [place] [place] [address] Endocrinology 06/08/23 Team Status: Active Member Role/Relationship Status Dates Dr. Bello Davenport MD Primary Care Provider Active Team Status: Inactive Member Role/Relationship Status Dates Dr. Bello Davenport MD Primary Care Provider Active Start: August 31, 2024 End: August 31, 2024 Dr. Bello Davenport MD Referring Provider Active Start: August 31, 2024 End: August 31, 2024 Shan Bolaños MD Attending Provider Active St art: August 31, 2024 End: August 31, 2024 Team Status: Inactive Member Role/Relationship Status Dates Dr. Bello Davenport MD Primary Care Provider Active Start: August 31, 2024 End: August 31, 2024 Dr. Ravinder Brown MD Attending Provider Active S tart: August 31, 2024 End: August 31, 2024 Team Status: Inactive Member Role/Relationship Status Dates Dr. Bello Davenport MD Primary Care Provider Active Start: October 05, 2024 End: October 05, 2024 Dr. Bello Davenport MD Referring Provider Active Start: October 05, 2024 End: October 05, 2024 VERENICE Landaverde Attending Provider Active S tart: October 05, 2024 End: October 05, 2024 Team Status: Inactive Member Role/Relationship Status Dates Dr. Bello Davenport MD Primary Care Provider Active Start: December 26, 2024 End: December 26, 2024 Dr. Bello Davenport MD Referring Provider Active Start: December 26, 2024 End: December 26, 2024 Lise Araya NP, CEMENT KILN OPERATOR-C Attending Provider Active Start: December 26, 2024 End: December 26, 2024 Microbiology Teacher Relationship Specialty Start Date End Date IssacBello pop Chi [address] [facility] [address] [place], [place] [address] PCP - General Gerontology 10/15/23 Celi Wahl MD [address] [place] [address] Internal Medicine 06/08/23 Joe Shah MD [address] [address] Ent - Otolaryngology 06/08/23 Autumn Omalley PA-C [address] [place] [address] Dermatology 06/08/23 Dominique Fisher MD [address] [place] [address] Endocrinology 06/08/23 Microbiology Teacher Relationship Specialty Start Date End Date Bello Davenport Chi [address] [facility] [address] [place] [address] PCP - General Gerontology 10/15/23 Celi Wahl MD [address] [place] [address] Internal Medicine 06/08/23 Joe Shah MD [address] [address] Ent - Otolaryngology 06/08/23 Autumn Omalley PA-C [address] [place] [address] Dermatology 06/08/23 Dominique Fisher MD [address] [place] [address] Endocrinology 06/08/23 Microbiology Teacher Relationship Specialty Start Date End Date Issac, Bello Mac [address] [facility] [address] [place], [place] [address] PCP - General Gerontology 10/15/23 Celi Wahl MD [address] [place] [address] Internal Medicine 06/08/23 Joe Shah MD [address] [address] Ent - Otolaryngology 06/08/23 Autumn Omalley PA-C [address] [place] [address] Dermatology 06/08/23 Dominique Fisher MD [address] [place] [address] Endocrinology 06/08/23 Microbiology Teacher Relationship Specialty Start Date End Date Issac Bello Mac [address] [facility] [address] [place], [place] [id number] PCP - General Gerontology 10/15/23 Celi Wahl MD [address] [place] [address] Internal Medicine 06/08/23 Joe Shah MD [address] [address] Ent - Otolaryngology 06/08/23 Autumn Omalley PA-C [address] [place] [address] Dermatology 06/08/23 Dominique Fisher MD [address] [place] [address] Endocrinology 06/08/23 Microbiology Teacher Relationship Specialty Start Date End Date Bello Davenport Chi [address] [address] PCP - General Gerontology 10/15/23 Celi Wahl MD [address] [place] [address] Internal Medicine 06/08/23 Joe Shah MD [address] [address] Ent - Otolaryngology 06/08/23 Autumn Omalley PA-C [address] [place] [address] Dermatology 06/08/23 Dominique Fisher MD [address] [place] [address] Endocrinology 06/08/23 Microbiology Teacher Relationship Specialty Start Date End Date Bello Davenport Chi [address] [facility] [address] [place] [address] PCP - General Gerontology 10/15/23 Celi Wahl MD [address] [place] [address] Internal Medicine 06/08/23 Joe Shah MD [address] [address] Ent - Otolaryngology 06/08/23 Autumn Omalley PA-C [address] [place] [address] Dermatology 06/08/23 Dominique Fisher MD [address] [place] [address] Endocrinology 06/08/23 Microbiology Teacher Relationship Specialty Start Date End Date Bello Davenport Chi [address] [facility] [address] [place] [address] PCP - General Gerontology 10/15/23 Celi Wahl MD [address] [place] [address] Internal Medicine 06/08/23 Joe Shah MD [address] [address] Ent - Otolaryngology 06/08/23 Autumn Omalley PA-C [address] [place] [address] Dermatology 06/08/23 Dominique Fisher MD [address] [place] [address] Endocrinology 06/08/23 Team Status: Inactive Member Role/Relationship Status Dates Dr. Bello Davenport MD Primary Care Provider Active Start: October 05, 2024 End: October 05, 2024 Dr. Bello Davenport MD Referring Provider Active Start: October 05, 2024 End: October 05, 2024 JOSE LandaverdeC Attending Provider Active S tart: October 05, 2024 End: October 05, 2024 Team Status: Inactive Member Role/Relationship Status Dates Dr. Bello Davenport MD Primary Care Provider Active Start: December 26, 2024 End: December 26, 2024 Dr. Bello Davenport MD Referring Provider Active Start: December 26, 2024 End: December 26, 2024 Lise Araya NP CEMENT KILN OPERATOR-C Attending Provider Active Start: December 26, 2024 End: December 26, 2024 Team Status: Inactive Member Role/Relationship Status Dates Dr. Bello Davenport MD Primary Care Provider Active Start: January 12, 2025 End: January 12, 2025 ASHLEY, SHANE Attending Provider Active Start: [facility] 2024 End: January 12, 2025 ASHLEY, SHANE Referring Provider Active Start: [facility] 2024 End: January 12, 2025 Team Status: Active Member Role/Relationship Status Dates Dr. Bello Davenport MD Primary Care Provider Active Start: January 15, 2025 ASHLEY, SHANE Attending Provider Active Start: [facility] 2024 ASHLEY, SHANE Referring Provider Active Start: [facility] 2024 Team Status: Active Member Role/Relationship Status Dates Dr. Bello Davenport MD Primary Care Provider Active Start: January 18, 2025 Lise Araya NP, CEMENT KILN OPERATOR-C Attending Provider Active Start: January 18, 2025 Lise Araya CEMENT KILN OPERATOR, CEMENT KILN OPERATOR-C Referring Provider Active Start: January 18, 2025 Team Status: Inactive Member Role/Relationship Status Dates Dr. Bello Davenport MD Primary Care Provider Active Start: January 18, 2025 End: January 18, 2025 Lise Araya CEMENT KILN OPERATOR, CEMENT KILN OPERATOR-C Attending Provider Active Start: January 18, 2025 End: January 18, 2025 Lise Araya CEMENT KILN OPERATOR, CEMENT KILN OPERATOR-C Referring Provider Active Start: January 18, 2025 End: January 18, 2025 Team Status: Active Member Role/Relationship Status Dates Dr. Bello Davenport MD Primary Care Provider Active Start: January 22, 2025 ASHLEY, SHANE Attending Provider Active Start: [facility] 2024 ASHLEY, SHANE Referring Provider Active Start: [facility] 2024 Team Status: Inactive Member Role/Relationship Status Dates Dr. Bello Davenport MD Primary Care Provider Active Start: January 26, 2025 End: January 28, 2025 ASHLEY, SHANE Attending Provider Active Start: [facility] 2024 End: January 28, 2025 ASHLEY, SHANE Referring Provider Active Start: [facility] 2024 End: January 28, 2025 Team Status: Active Member Role/Relationship Status Dates Dr. Bello Davenport MD Primary care physician Active Team Status: Inactive Member Role/Relationship Status Dates Dr. Bello Davenport MD Primary care physician Active Start: December 26, 2024 End: December 26, 2024 Dr. Bello Davenport MD Referring Provider Active Start: December 26, 2024 End: December 26, 2024 Lise Araya CEMENT KILN OPERATOR, CEMENT KILN OPERATOR-C Attending physician Active Start: December 26, 2024 End: December 26, 2024 Team Status: Inactive Member Role/Relationship Status Dates Dr. Bello Davenport MD Primary care physician Active Start: January 12, 2025 End: January 12, 2025 ASHLEY, SHANE Attending physician Active Start: [facility] 2024 End: January 12, 2025 ASHLEY, SHANE Referring Provider Active Start: [facility] 2024 End: January 12, 2025 Team Status: Inactive Member Role/Relationship Status Dates Dr. Bello Davenport MD Primary care physician Active Start: January 18, 2025 End: January 18, 2025 Lise Araya CEMENT KILN OPERATOR, CEMENT KILN OPERATOR-C Attending physician Active Start: January 18, 2025 End: January 18, 2025 Lise Araya CEMENT KILN OPERATOR, CEMENT KILN OPERATOR-C Referring Provider Active Start: January 18, 2025 End: January 18, 2025 Team Status: Inactive Member Role/Relationship Status Dates Dr. Bello Davenport MD Primary care physician Active Start: January 26, 2025 End: January 28, 2025 ASHLEY, SHANE Attending physician Active Start: A ugust 2024 End: January 28, 2025 ASHLEY, SHANE Referring Provider Active Start: [facility] 2024 End: January 28, 2025 Team Status: Inactive Member Role/Relationship Status Dates Dr. Bello Davenport MD Primary care physician Active Start: February 26, 2025 End: February 27, 2025 ASHLEY, SHANE Attending physician Active Start: S eptember 2024 End: February 27, 2025 ASHLEY, SHANE Referring Provider Active Start: Se ptember 2024 End: February 27, 2025 Team Status: Active Member Role/Relationship Status Dates Dr. Bello Davenport MD Primary care physician Active Start: February 28, 2025 ASHLEY, SHANE Attending physician Active Start: O ctober 2024 ASHLEY, SHANE Referring Provider Active Start: Oc tober 2024 Team Status: Active Member Role/Relationship Status Dates Dr. Bello Davenport MD Primary care physician Active Start: March 07, 2025 ASHLEY, SHANE Attending physician Active Start: O ctober 2024 ASHLEY, SHANE Referring Provider Active Start: Oc to[facility] 2024 Team Status: Inactive Member Role/Relationship Status Dates Dr. Bello Davenport MD Primary care physician Active Start: March 08, 2025 End: March 08, 2025 Dr. Bello Davenport MD Referring Provider Active Start: March 08, 2025 End: March 08, 2025 Dr. Chuck Dalton DO Attending physician Active Start: March 08, 2025 End: March 08, 2025 Dr. Taqueria Vieira MD Nurse Practitioner Active Start: March 08, 2025 End: March 08, 2025 Team Status: Active Member Role/Relationship Status Dates Dr. Bello Davenport MD Primary care physician Active Start: March 08, 2025 Dr. Bello Davenport MD Referring Provider Active Start: March 08, 2025 Dr. Chuck Dalton DO Attending physician Active Start: March 08, 2025 Dr. Chuck Dalton DO Nurse Practitioner Active Start: March 08, 2025 Dr. Taqueria Vieira MD Nurse Practitioner Active Start: March 08, 2025 Team Status: Inactive Member Role/Relationship Status Dates Dr. Bello Davenport MD Primary care physician Active Start: March 08, 2025 End: March 08, 2025 Dr. Bello Davenport MD Referring Provider Active Start: March 08, 2025 End: March 08, 2025 Dr. Chuck Dalton DO Attending physician Active Start: March 08, 2025 End: March 08, 2025 Dr. Taqueria Vieira MD Nurse Practitioner Active Start: March 08, 2025 End: March 08, 2025 Team Status: Active Member Role/Relationship Status Dates Dr. Bello Davenport MD Primary care physician Active Start: March 08, 2025 Dr. Bello Davenport MD Referring Provider Active Start: March 08, 2025 Dr. Chuck Dalton DO Attending physician Active Start: March 08, 2025 Dr. Chuck Dalton DO Nurse Practitioner Active Start: March 08, 2025 Dr. Taqueria Vieira MD Nurse Practitioner Active Start: March 08, 2025 Team Status: Inactive Member Role/Relationship Status Dates Dr. Bello Davenport MD Primary care physician Active Start: March 13, 2025 End: March 13, 2025 Dr. Bello Davenport MD Referring Provider Active Start: March 13, 2025 End: March 13, 2025 Dr. Ally Bailey MD Attending physician Active Start: March 13, 2025 End: March 13, 2025 Team Status: Active Member Role/Relationship Status Dates Dr. Bello Davenport MD Primary care physician Active Start: March 26, 2025 SHANE RAMIREZ Attending physician Active Start: O ctober 2024 SHANE RAMIREZ Referring Provider Active Start: Oc tober 2024 Goals (unrecognized section and content) Goals may be documented in a n alternate sectionGoals may be documented in an alternate sectionGoals may be documented in an alternate sectionGoals may be documented in an alternate sectionGoals may be documented in an alternate sectionGoals may be documented in an alternate sectionGoals may be documented in an alternate sectionGoals may be documented in an alternate section FOR RECORDS PERTAINING TO PATIENTS WHO ARE OR HAVE BEEN ENROLLED IN A CHEMICAL DEPENDENCY/SUBSTANCEABUSE PROGRAM, SOME INFORMATION MAY BE OMITTED. This clinical summary was aggregated from multiple sources. Caution should be exercised in using it in the provision of clinical care. This summary normalizes information from multiple sources, and as a consequence, information in this document may materially change the coding, format and clinical context of patient data. In addition, data may be omitted in some cases. CLINICAL DECISIONS SHOULD BE BASED ON THE PRIMARY CLINICAL RECORDS. [facility]. provides no warranty or guarantee of the accuracy or completeness of information in this document.
--- NOTE | 2025-04-28 07:42 | MRI_ITS ---
PROCEDURE: UPPER EXT JOINT ONLY(ROUTINE) 04/28/2025 REASON FOR EXAM: PAIN TECHNIQUE: Procedure Code: MRIUEJ Modality: MR Procedure: UPPER EXT JOINT ONLY(ROUTINE) T1, T2, PD, multiplanar and multisequence images were obtained of the left shoulder without IV contrast administration. COMPARISON: COMPARISON: None FINDINGS: Bone Marrow: Subcortical cyst formation is noted deep to the supraspinatus and infraspinatus insertions. There is no contusion or occult fracture. Rotator cuff: There is moderate distal supraspinatus, infraspinatus, and subscapularis tendinopathy without full-thickness tear or retraction. The teres minor appears intact. Labrum: There is no visible labral tear. Biceps: The biceps tendon is present in the biceps tendon groove, with intact anchors. AC joint: The AC joint is aligned without evidence of separation. There is a type 2 acromion. Effusion: There is fluid in the subacromial subdeltoid bursa, with bursitis. Soft Tissues: There is thickening of the inferior glenohumeral ligament, which can indicate adhesive capsulitis. MRI/Upper Ext Joint Only(Routine) IMPRESSION: There is moderate distal supraspinatus, infraspinatus, and subscapularis tendin opathy without full-thickness tear or retraction. There is fluid in the subacromial subdeltoid bursa, with bursitis. There is thickening of the inferior glenohumeral ligament, which can indicate a dhesive capsulitis. Reading Location: [facility]
--- NOTE | 2025-04-28 07:42 | MRI_ITS ---
PROCEDURE: UPPER EXT JOINT ONLY(ROUTINE) 04/28/2025 REASON FOR EXAM: PAIN TECHNIQUE: Procedure Code: MRIUEJ Modality: MR Procedure: UPPER EXT JOINT ONLY(ROUTINE) T1, T2, PD, multiplanar and multisequence images were obtained of the right shoulder without IV contrast administration. COMPARISON: COMPARISON: None FINDINGS: Bone Marrow: There is marrow edema in the distal clavicle. Subcortical cyst formation is noted in the acromion. AC joint: There is moderate AC joint hypertrophy without evidence of separation. There is a type 2 acromion. Rotator cuff: There is moderate distal supraspinatus tendinopathy without full- thickness tear or retraction. The infraspinatus, subscapularis, and teres minor appear intact. Labrum: There is a tear of the labrum from the 10 o'clock-2 o'clock position. There is no paralabral cyst. Biceps tendon: The biceps tendon is present in the biceps tendon groove, with intact anchors. Effusion: There is no significant joint effusion. There is fluid in the subacromial subdeltoid bursa, with bursitis. MRI/Upper Ext Joint Only(Routine) IMPRESSION: There is marrow edema in the distal clavicle. Subcortical cyst formation is noted in the acromion. There is moderate distal supraspinatus tendinopathy without full-thickness tear or retraction. There is a tear of the labrum from the 10 o'clock-2 o'clock position. There is fluid in the subacromial subdeltoid bursa, with bursitis. Reading Location: [facility]
== END | disposition home or self-care (01) ==
LOC: MRI 07:20
PROVIDERS: PCP Family Medicine; Referring Provider Orthopaedic Surgery Sports Medicine; Visit Provider Orthopaedic Surgery Sports Medicine
DX: M25.511 Pain in right shoulder (principal); M25.512 Pain in left shoulder
CPT/HCPCS: 73221

== ENCOUNTER → 2025-05-04 | Outpatient (CLI) | payer MEDICARE, OTHER, SELFPAY ==
[2025-05-03 07:41] VITALS: BMI 24.7
== END | disposition home or self-care (01) ==
LOC: LABSPEC 14:49
PROVIDERS: PCP Family Medicine; Referring Provider Otolaryngology; Visit Provider Otolaryngology
DX: J32.8 Other chronic sinusitis (principal); R09.89 Other specified symptoms and signs involving the circulatory and respiratory systems; R06.00 Dyspnea, unspecified; U09.9 Post COVID-19 condition, unspecified
CPT/HCPCS: 87070; 87205; 97150; G0239

== ENCOUNTER 2025-05-11 10:00 | Outpatient (RCR) | payer MEDICARE, OTHER, SELFPAY ==
[2025-04-05 07:30] VITALS: BMI 25.1
--- NOTE | 2025-05-03 07:28 | PR.ITP_ITS ---
Exercise - Initial Assessment Visit Session Number:: 32 Physician Prescribed Exercise Modalities: Treadmill, Schwinn Airdyne AD-7 and SciFit Stepper Current METSs:: 5.3 Target HR:: 123 (93-123) Current RPD:: 2-3 Maximum Exercise HR:: 145 Resting Blood Pressure: 128/80 Maximum Exercise Blood Pressure: 144/80 Minimum SpO2 with exercise: 97 EKG Type: NSR-ST Nutrition/Wt Mgmt - Initial Visit Session Number:: 32 (Nutrition score of 1.) Weight Management Admit Height:: 5 ft 2 in Admit Weight:: 135 lb 8 oz Admit BMI:: 24.7 Nutrition/Wt Mgmt - 30-Day Visit Date of Eval: 05/03/25 Session Number:: 32 (Nutrition score of 1.) Weight Management Height: 5 ft 2 in Weight:: 135 lb 8 oz BMI: 24.7 Nutrition/Wt Mgmt - 60-Day Visit Session Number:: 32 (Nutrition score of 1.) Weight Management Height: 5 ft 2 in Weight:: 135 lb 8 oz BMI: 24.7 Weight Goals Progress:: Goal met (Pt is at a healthy weight. Pt has attended hutrition classes and understands the importance of a heart healty low sodium diet.) Nutrition/Wt Mgmt - 90-Day Visit Date of Eval: 05/03/25 Session Number:: 32 (Nutrition score of 1.) Weight Management Height: 5 ft 2 in Weight:: 135 lb 8 oz BMI: 24.7 Weight Goals Progress:: Goal met (Pt is at a healthy weight. Pt has attended hutrition classes and understands the importance of a heart healty low sodium diet.) Nutrition/Wt Mgmt - Final Visit Session Number:: 32 (Nutrition score of 1.) Weight Management Height: 5 ft 2 in Weight:: 135 lb 8 oz BMI: 24.7 Psychosocial - Initial Assess Visit Session Number:: 32 (Nutrition score of 1.) Problems/Goals History of Emotional Disorders: Anxious (Due to illness. Pt does not have an official diagnosis of anxiety.) Psychosocial Goals: 1. Patient is free from overwhelming symtoms of depression (or anxiety, 2. Identifies personal stressors & states the strategies for managing, 3. Identifies activities to decrease isolation and/or symptoms of, 4. Improved psychosocial coping skills., 5. Verbalizes coping strategies., 6. Adequate treatment of depression. and 7. Improved Q.O.L. Self-reported stressors: Recent Illness Psychosocial Test Tool Used:: Pulmonary QOL and PHQ-9 Questionnaire PHQ-9 Score: 3 Referral to Behavioral Health PS - Interventions: Yes: Attend Stress Management Classes Intervention/Plan: See List Interventions/Plan:: Assess stressors,coping strategies & signs of derpression on admission, Instruct/assist pt to develop coping & personal stress Mgt strategies, Refer to Behavioral Health if appropriate, Refer to Physician if appropriate, Instruct patient to recognize signs & symptoms of depression and I nstruct patient to recog Comments:: Pt has attended stress management class and is doing well. Psychosocial - 30-Day Visit Date of Eval: 05/03/25 Session Number:: 32 (Nutrition score of 1.) Problems/Goals History of Emotional Disorders: Anxious (Due to illness. Pt does not have an official diagnosis of anxiety.) Psychosocial Goals: 1. Patient is free from overwhelming symtoms of depression (or anxiety, 2. Identifies personal stressors & states the strategies for managing, 3. Identifies activities to decrease isolation and/or symptoms of, 4. Improved psychosocial coping skills., 5. Verbalizes coping strategies., 6. Adequate treatment of depression. and 7. Improved Q.O.L. Self-reported stressors: Recent Illness Psychosocial Test Tool Used:: Pulmonary QOL and PHQ-9 Questionnaire PHQ-9 Score: 3 Referral to Behavioral Health PS - Interventions: Yes: Attend Stress Management Classes Plan Interventions/Plan:: Assess stressors,coping strategies & signs of derpression on admission, Instruct/assist pt to develop coping & personal stress Mgt strategies, Refer to Behavioral Health if appropriate, Refer to Physician if appropriate, Instruct patient to recognize signs & symptoms of depression and Instruct patient to recog Comments:: Pt has attended stress management class and is doing well. Psychosocial - 60-Day Visit Session Number:: 32 (Nutrition score of 1.) Problems/Goals History of Emotional Disorders: Anxious (Due to illness. Pt does not have an official diagnosis of anxiety.) Psychosocial Goals: 1. Patient is free from overwhelming symtoms of depression (or anxiety, 2. Identifies personal stressors & states the strategies for managing, 3. Identifies activities to decrease isolation and/or symptoms of, 4. Improved psychosocial coping skills., 5. Verbalizes coping strategies., 6. Adequate treatment of depression. and 7. Improved Q.O.L. Self-reported stressors: Recent Illness Psychosocial Test Tool Used:: Pulmonary QOL and PHQ-9 Questionnaire PHQ-9 Score: 3 Referral to Behavioral Health PS - Interventions: Yes: Attend Stress Management Classes Plan Interventions/Plan:: Assess stressors,coping strategies & signs of derpression on admission, Instruct/assist pt to develop coping & personal stress Mgt strategies, Refer to Behavioral Health if appropriate, Refer to Physician if appropriate, Instruct patient to recognize signs & symptoms of depression and Instruct patient to recog Comments:: Pt has attended stress management class and is doing well. Psychosocial - 90-Day Visit Date of Eval: 05/03/25 Session Number:: 32 Problems/Goals History of Emotional Disorders: Anxious (Due to illness. Pt does not have an official diagnosis of anxiety.) Psychosocial Goals: 1. Patient is free from overwhelming symtoms of depression (or anxiety, 2. Identifies personal stressors & states the strategies for managing, 3. Identifies activities to decrease isolation and/or symptoms of, 4. Improved psychosocial coping skills., 5. Verbalizes coping strategies., 6. Adequate treatment of depression. and 7. Improved Q.O.L. Self-reported stressors: Recent Illness Psychosocial Test Tool Used:: Pulmonary QOL and PHQ-9 Questionnaire PHQ-9 Score: 3 Referral to Behavioral Health PS - Interventions: Yes: Attend Stress Management Classes Plan Interventions/Plan:: Assess stressors,coping strategies & signs of derpression on admission, Instruct/assist pt to develop coping & personal stress Mgt strategies, Refer to Behavioral Health if appropriate, Refer to Physician if appropriate, Instruct patient to recognize signs & symptoms of depression and Instruct patient to recog Comments:: Pt has attended stress management class and is doing well. Psychosocial - Final Assess Visit Session Number:: 32 Problems/Goals History of Emotional Disorders: Anxious (Due to illness. Pt does not have an official diagnosis of anxiety.) Psychosocial Goals: 1. Patient is free from overwhelming symtoms of depression (or anxiety, 2. Identifies personal stressors & states the strategies for managing, 3. Identifies activities to decrease isolation and/or symptoms of, 4. Improved psychosocial coping skills., 5. Verbalizes coping strategies., 6. Adequate treatment of depression. and 7. Improved Q.O.L. Self-reported stressors: Recent Illness Psychosocial Test Tool Used:: Pulmonary QOL and PHQ-9 Questionnaire PHQ-9 Score: 3 Referral to Behavioral Health PS - Interventions: Yes: Attend Stress Management Classes Plan Interventions/Plan:: Assess stressors,coping strategies & signs of derpression on admission, Instruct/assist pt to develop coping & personal stress Mgt strategies, Refer to Behavioral Health if appropriate, Refer to Physician if appropriate, Instruct patient to recognize signs & symptoms of depression and Instruct patient to recog Comments:: Pt has attended stress management class and is doing well. Oxygen & Oxygen Titration Init Visit Session Number:: 32 (Nutrition score of 1.) Initial Assessment SpO2:: 97 Oxygen & Oxygen Titration 30D Visit Date of Eval: 05/03/25 Session Number:: 32 Reassessment Breath Sounds:: Clear SpO2:: 97 Oxygen & Oxygen Titration 60D Visit Date of Eval: 05/03/25 Session Number:: 32 Reassessment Breath Sounds:: Clear SpO2:: 97 Oxygen & Oxygen Titration 90D Visit Date of Eval: 05/03/25 Session Number:: 32 Reassessment Oxygen & Oxygen Titration 90 days: None Breath Sounds:: Clear SpO2:: 97 Oxygen & Oxygen Titration CEDRIC Visit Date of Eval: 05/03/25 Session Number:: 32 Reassessment Breath Sounds:: Clear SpO2:: 97 Core Components - Initial Visit Session Number:: 32 Hypertension BP: 128/80 [place] [employer] Hypertension Guidelines Blood Pressure: 144/80 Outcomes/Goals: Able to verbalize/achieve optimal blood pressure <130/80 and Incorporates diet changes & exercise for blood pressure control by DC Tobacco - Initial Assessment Tobacco Program Goals Tobacco Use: Non-smoker Diabetes Diabetes:: No Core Components - 30 DAYS Visit Date of Eval: 05/03/25 Session Number:: 32 Hypertension Resting Blood Pressure:: 128/80 [place] [employer] Hypertension Guidelines Peak Exercise Blood Pressure:: 144/80 Outcomes/Goals: Able to verbalize/achieve optimal blood pressure <130/80 and Incorporates diet changes & exercise for blood pressure control by DC Interventions/plan: Instruct on optimal blood pressure, hypertension & medications and Instruct on effects of sodium, alcohol, stress, exercise &hypertension 30 day Reassessments:: Met (Pt's BP's are within AHA normal limits. Will continue to monitor and report to pt's physician if necessary.) Tobacco - 30-Day Tobacco Program Goals Tobacco Use: Non-smoker Exacerbation Mgmt & Airway Clearance Bronchial Hygiene Plan: Yes: Pt demonstrates correctly for effective cough, Yes: Pt demo correct for CPT, Yes: Pt demo correct for device, Yes: Pt demo correct for NS nasal spray, Yes: Pt demo correct for sputum management, Yes: Pt demo correct for improved hydration, Yes: Pt demo correct for hand hygiene, Yes: Pt demo correct for evalute sputum, Yes: Pt demo correct for verbalize when to call MD and Yes: Pt demo correct for cleaning of respiratory equipment Medication Medication reassessment: Yes: Pt demonstrates correct technique timing for MDI, Yes: Pt demonstrates correct technique timing for DPI, Yes: Pt demonstrates correct technique timing for NEB and Yes: Pt demonstrates correct technique timing for spacer Diabetes Diabetes:: No Core Components - 60 DAYS Visit Session Number:: 32 Hypertension Resting Blood Pressure:: 128/80 [place] [employer] Hypertension Guidelines Peak Exercise Blood Pressure:: 144/80 Outcomes/Goals: Able to verbalize/achieve optimal blood pressure <130/80 and Incorporates diet changes & exercise for blood pressure control by DC Interventions/plan: Instruct on optimal blood pressure, hypertension & medications and Instruct on effects of sodium, alcohol, stress, exercise &hypertension 60 day Reassessments:: Met (Pt's BP's are within AHA normal limits. Will continue to monitor and report to pt's physician if necessary.) Tobacco - 60-Day Tobacco Program Goals Tobacco Use: Non-smoker Exacerbation Mgmt & Airway Clearance Bronchial Hygiene Plan: Yes: Pt demonstrates correctly for effective cough, Yes: Pt demo correct for CPT, Yes: Pt demo correct for device, Yes: Pt demo correct for NS nasal spray, Yes: Pt demo correct for sputum management, Yes: Pt demo correct for improved hydration, Yes: Pt demo correct for hand hygiene, Yes: Pt demo correct for evalute sputum, Yes: Pt demo correct for verbalize when to call MD and Yes: Pt demo correct for cleaning of respiratory equipment Medication Medication reassessment: Yes: Pt demonstrates correct technique timing for MDI, Yes: Pt demonstrates correct technique timing for DPI, Yes: Pt demonstrates correct technique timing for NEB and Yes: Pt demonstrates correct technique timing for spacer Diabetes Diabetes:: No Core Components - 90 DAYS Visit Date of Eval: 05/03/25 Session Number:: 32 Hypertension Resting Blood Pressure:: 128/80 [place] [employer] Hypertension Guidelines Peak Exercise Blood Pressure:: 144/80 Outcomes/Goals: Able to verbalize/achieve optimal blood pressure <130/80 and I ncorporates diet changes & exercise for blood pressure control by DC Interventions/plan: Instruct on optimal blood pressure, hypertension & medications and Instruct on effects of sodium, alcohol, stress, exercise &hypertension 90 day Reassessments:: Met (Pt's BP's are within AHA normal limits. Will continue to monitor and report to pt's physician if necessary.) Tobacco - 90-Day Tobacco Program Goals Tobacco Use: Non-smoker Exacerbation Mgmt & Airway Clearance Bronchial Hygiene Plan: Yes: Pt demonstrates correctly for effective cough, Yes: Pt demo correct for CPT, Yes: Pt demo correct for device, Yes: Pt demo correct for NS nasal spray, Yes: Pt demo correct for sputum management, Yes: Pt demo correct for improved hydration, Yes: Pt demo correct for hand hygiene, Yes: Pt demo correct for evalute sputum, Yes: Pt demo correct for verbalize when to call MD and Yes: Pt demo correct for cleaning of respiratory equipment Medication Medication list reviewed:: Yes Taking medications 100% of the time:: Met Medication reassessment: Yes: Pt demonstrates correct technique timing for MDI, Yes: Pt demonstrates correct technique timing for DPI, Yes: Pt demonstrates correct technique timing for NEB and Yes: Pt demonstrates correct technique timing for spacer Diabetes Diabetes:: No Core Components - Final Visit Session Number:: 32 Hypertension Resting Blood Pressure:: 128/80 [place] [employer] Hypertension Guidelines Peak Exercise Blood Pressure:: 144/80 Outcomes/Goals: Able to verbalize/achieve optimal blood pressure <130/80 and Incorporates diet changes & exercise for blood pressure control by DC Tobacco - Final Tobacco Program Goals Tobacco Use: Non-smoker Exacerbation Mgmt & Airway Clearance Bronchial Hygiene Plan: Yes: Pt demonstrates correctly for effective cough, Yes: Pt demo correct for CPT, Yes: Pt demo correct for device, Yes: Pt demo correct for NS nasal spray, Yes: Pt demo correct for sputum management, Yes: Pt demo correct for improved hydration, Yes: Pt demo correct for hand hygiene, Yes: Pt demo correct for evalute sputum, Yes: Pt demo correct for verbalize when to call MD and Yes: Pt demo correct for cleaning of respiratory equipment Medication Medication reassessment: Yes: Pt demonstrates correct technique timing for MDI, Yes: Pt demonstrates correct technique timing for DPI, Yes: Pt demonstrates correct technique timing for NEB and Yes: Pt demonstrates correct technique timing for spacer Diabetes Diabetes:: No Knowledge Questionaire (BCKQ) Information Information: [place] COPD Knowledge Questionnaire (BCKQ) This questionnaire is designed to find out what you know about your lung problem. It should be completed without help form anyone else. This usually takes between 10 and 20 minutes. Your answers will help us to find out what information you need to help you to understand and manage your lung condition. [place] which you think is the correct answer.
[2025-05-03 07:41] VITALS: BP 128/80; BP 144/80; O2SAT 97; BMI 24.7
--- NOTE | 2025-06-01 10:16 | PCM.PR.TP ---
Exercise - Initial Assessment Visit Session Number:: 36 Physician Prescribed Exercise Modalities: Treadmill, [employer] Airdyne AD-7 and [employer] Stepper Current METSs:: 5.3 Resting Blood Pressure: 116/70 Maximum Exercise Blood Pressure: 144/90 Minimum SpO2 with exercise: 97 (room air) EKG Type: NSR-ST Nutrition/Wt Mgmt - Initial Visit Session Number:: 36 Weight Management Admit Height:: 5 ft 2 in Admit Weight:: 135 lb 8 oz Admit BMI:: 24.7 Nutrition/Wt Mgmt - 30-Day Visit Date of Eval: 06/01/25 Session Number:: 36 Weight Management Height: 5 ft 2 in Weight:: 135 lb 8 oz BMI: 24.7 Nutrition/Wt Mgmt - 60-Day Visit Session Number:: 36 Weight Management Height: 5 ft 2 in Weight:: 135 lb 8 oz BMI: 24.7 Nutrition/Wt Mgmt - 90-Day Visit Session Number:: 36 Weight Management Height: 5 ft 2 in Weight:: 135 lb 8 oz BMI: 24.7 Nutrition/Wt Mgmt - Final Visit Date of Eval: 06/01/25 Session Number:: 36 Weight Management Height: 5 ft 2 in Weight:: 135 lb 8 oz BMI: 24.7 Weight Goals Progress:: Goal met (Pt has attended nutrition class. Pt understands the benefits of a hearth healthy low sodium diet. Nutrition survey score of 1) Psychosocial - Initial Assess Visit Session Number:: 36 Psychosocial Test Tool Used:: Pulmonary QOL and PHQ-9 Questionnaire PHQ-9 Score: 3 Referred to MD for counseling:: No Referral to Behavioral Health PS - Interventions: Yes: Attend Stress Management Classes Intervention/Plan: See List Interventions/Plan:: Assess stressors,coping strategies & signs of derpression on admission, Instruct/assist pt to develop coping & personal stress Mgt strategies, Refer to Behavioral Health if appropriate, Refer to Physician if appropriate, Instruct patient to recognize signs & symptoms of depression and Instruct patient to recog Psychosocial - 30-Day Visit Date of Eval: 06/01/25 Session Number:: 36 Psychosocial Test Tool Used:: Pulmonary QOL and PHQ-9 Questionnaire PHQ-9 Score: 3 Referred to MD for counseling:: No Referral to Behavioral Health PS - Interventions: Yes: Attend Stress Management Classes Plan Interventions/Plan:: Assess stressors,coping strategies & signs of derpression on admission, Instruct/assist pt to develop coping & personal stress Mgt strategies, Refer to Behavioral Health if appropriate, Refer to Physician if appropriate, Instruct patient to recognize signs & symptoms of depression and Instruct patient to recog Psychosocial - 60-Day Visit Session Number:: 36 Psychosocial Test Tool Used:: Pulmonary QOL and PHQ-9 Questionnaire PHQ-9 Score: 3 Referred to MD for counseling:: No Referral to Behavioral Health PS - Interventions: Yes: Attend Stress Management Classes Plan Interventions/Plan:: Assess stressors,coping strategies & signs of derpression on admission, Instruct/assist pt to develop coping & personal stress Mgt strategies, Refer to Behavioral Health if appropriate, Refer to Physician if appropriate, Instruct patient to recognize signs & symptoms of depression and Instruct patient to recog Psychosocial - 90-Day Visit Session Number:: 36 Psychosocial Test Tool Used:: Pulmonary QOL and PHQ-9 Questionnaire PHQ-9 Score: 3 Referred to MD for counseling:: No Referral to Behavioral Health PS - Interventions: Yes: Attend Stress Management Classes Plan Interventions/Plan:: Assess stressors,coping strategies & signs of derpression on admission, Instruct/assist pt to develop coping & personal stress Mgt strategies, Refer to Behavioral Health if appropriate, Refer to Physician if appropriate, Instruct patient to recognize signs & symptoms of depression and Instruct patient to recog Psychosocial - Final Assess Visit Date of Eval: 06/01/25 Session Number:: 36 Psychosocial Test Tool Used:: Pulmonary QOL and PHQ-9 Questionnaire PHQ-9 Score: 3 Referred to MD for counseling:: No Referral to Behavioral Health PS - Interventions: Yes: Attend Stress Management Classes Plan Interventions/Plan:: Assess stressors,coping strategies & signs of derpression on admission, Instruct/assist pt to develop coping & personal stress Mgt strategies, Refer to Behavioral Health if appropriate, Refer to Physician if appropriate, Instruct patient to recognize signs & symptoms of depression and Instruct patient to recog Oxygen & Oxygen Titration Init Visit Session Number:: 36 Initial Assessment SpO2:: 97 (room air) Oxygen & Oxygen Titration 30D Visit Date of Eval: 06/01/25 Session Number:: 36 Reassessment Breath Sounds:: Clear SpO2:: 97 (room air) Oxygen & Oxygen Titration 60D Visit Date of Eval: 06/01/25 Session Number:: 36 Reassessment Breath Sounds:: Clear SpO2:: 97 (room air) Oxygen & Oxygen Titration 90D Visit Date of Eval: 06/01/25 Session Number:: 36 Reassessment Breath Sounds:: Clear SpO2:: 97 (room air) Oxygen & Oxygen Titration CEDRIC Visit Date of Eval: 06/01/25 Session Number:: 36 Reassessment Oxygen & Oxygen Titration Final: None Breath Sounds:: Clear SpO2:: 97 (room air) Core Components - Initial Visit Session Number:: 36 Hypertension BP: 116/70 [employer] Hypertension Guidelines Blood Pressure: 144/90 Outcomes/Goals: Able to verbalize/achieve optimal blood pressure <130/80 Core Components - 30 DAYS Visit Date of Eval: 06/01/25 Session Number:: 36 Hypertension Resting Blood Pressure:: 116/70 [employer] Hypertension Guidelines Peak Exercise Blood Pressure:: 144/90 Outcomes/Goals: Able to verbalize/achieve optimal blood pressure <130/80 Core Components - 60 DAYS Visit Session Number:: 36 Hypertension Resting Blood Pressure:: 116/70 [employer] Hypertension Guidelines Peak Exercise Blood Pressure:: 144/90 Outcomes/Goals: Able to verbalize/achieve optimal blood pressure <130/80 Core Components - 90 DAYS Visit Session Number:: 36 Hypertension Resting Blood Pressure:: 116/70 [employer] Hypertension Guidelines Peak Exercise Blood Pressure:: 144/90 Outcomes/Goals: Able to verbalize/achieve optimal blood pressure <130/80 Core Components - Final Visit Date of Eval: 06/01/25 Session Number:: 36 Hypertension Resting Blood Pressure:: 116/70 [employer] Hypertension Guidelines Peak Exercise Blood Pressure:: 144/90 Outcomes/Goals: Able to verbalize/achieve optimal blood pressure <130/80 Medication Medication list reviewed:: Yes Taking medications 100% of the time:: Met Knowledge Questionaire (BCKQ) Information Information: [place] COPD Knowledge Questionnaire (BCKQ) This questionnaire is designed to find out what you know about your lung problem. It should be completed without help form anyone else. This usually takes between 10 and 20 minutes. Your answers will help us to find out what information you need to help you to understand and manage your lung condition. [employer] the [id number] which you think is the correct answer.
[2025-06-01 10:24] VITALS: BP 116/70; BP 144/90; O2SAT 97; BMI 24.7
== END 2025-05-30 23:59 ==
LOC: PR 10:00
PROVIDERS: PCP Family Medicine
DX: R06.00 Dyspnea, unspecified (principal); R06.89 Other abnormalities of breathing; U09.9 Post COVID-19 condition, unspecified
CPT/HCPCS: 97150; G0239

== ENCOUNTER 2025-05-18 05:58 | Day surgery (SDC) | payer MEDICARE, OTHER, SELFPAY ==
[2025-05-03 07:41] VITALS: BMI 24.7
--- NOTE | 2025-05-17 16:40 | PAT.ANESEVAL ---
Pre-Assessment Diagnosis/Proposed Procedure Planned Operative Procedure(s): Colonoscopy Anesthesia History Anesthesia History - plate sensitizer: Anesthesia History - plate sensitizer Hx Hospitalization No 05/17/25 08:56 Any Problems With Anesthesia No 05/17/25 08:56 Cholinesterase deficiency No 05/17/25 08:56 You/Your Family Experience No 05/17/25 08:56 fever (hyperthermia) with Relationship Recent Exposure to Contagious Disease Does patient have nerve No 05/17/25 08:56 stimulator Patient instructed to have device shut off --Does patient have Pacemaker or ICD? When Was Last Pacemaker Check QUESTION #4 FULL TEXT: You/Your Family Experience fever (hyperthermia) with Anesthesia Last Oral Intake Last Oral intake: Last Oral Intake NPO since Meds taken in AM with sips of water? Meds patient instructed to take am of surgery PONV PONV - plate sensitizer: PONV - plate sensitizer Female Yes 05/17/25 08:56 HX of Motion Sickness Yes 05/17/25 08:56 HX of N/V After Surgery No 05/17/25 08:56 Non-Smoker Yes 05/17/25 08:56 Duration of Surgery greater No 05/17/25 08:56 than 60 minutes Number of Risk Factors 3 05/17/25 08:56 PONV Score Moderate Risk 05/17/25 08:56 Height & Weight Height & Weight: Anesthesia: Height & Weight Height 5 ft 2 in 05/03/25 07:41 Respiratory Assessment Respiratory Assessment - plate sensitizer: Respiratory Tract Infection Hx - plate sensitizer Hx Respiratory Tract Infection No 05/17/25 08:56 STOP Sleep Apnea STOP Sleep Apnea - plate sensitizer: STOP Sleep Apnea - plate sensitizer Hx Hypertension No 05/17/25 08:56 Hx Sleep Apnea No 05/17/25 08:56 CPAP BIPAP Do you snore loudly (louder No 05/17/25 08:56 than talking or can be heard Do you often feel tired/ No 05/17/25 08:56 fatigued/ sleepy during daytime? Has anyone observed you stop No 05/17/25 08:56 breathing during sleep? STOP Results Negative 05/17/25 08:56 QUESTION #5 FULL TEXT : Do you snore loudly (louder than talking or can be heard through closed doors)? 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 Specify any problems Hx of Preganancy in last 3 No 05/17/25 08:56 Months Nurse Filling Out Transfusion JZOLLINGE 05/17/25 08:56 & Questions: Date: 05/17/25 05/17/25 08:56 Time: 08:57 05/17/25 08:56 Patient unable to answer at this time (ie. confused, unrespo /Reproduction History /Reproductive History - plate sensitizer: /Reproductive Hx- plate sensitizer Hx Now No 05/17/25 08:56 Gestational Age (in weeks): EDC: Hx Hx Para Hx Section SAB No 05/17/25 08:56 Does the father of the baby or his family experience fever w Father of the baby Malignant Hypertension history comment [facility] Medical History (Updated 05/17/25 @ 08:55 by Glendy Garcia) Wears glasses Dietary restriction Cardiology follow-up encounter Superior labrum [id number] (SLAP) tear of right shoulder Bilateral shoulder pain Right shoulder pain H/O urinary frequency Arthritis High cholesterol Injury of back History of IBS Heartburn Non-smoker Shortness of breath on exertion History of echocardiogram Long COVID Left shoulder pain Home Medications ?Medication ?Instructions ?Recorded ?Last Taken ?Type estradiol 0.01% (0.1 mg/gram) See Rx Instructions vaginal 12/26/24 Unknown Rx vaginal cream .COMPLEX #42.5 grams albuterol sulfate 90 mcg/actuation 2 puff inhalation Q6 PRN wheezing 05/14/25 Unknown History aerosol inhaler fluticasone propionate 50 2 spray intranasal QDAY 05/14/25 Unknown History mcg/actuation nasal spray,suspension (Flonase Allergy Relief) Allergy/AdvReac Type Severity Reaction Status Date / Time doxycycline Allergy gi upset Verified 05/17/25 08:50 Sulfa (Sulfonamide Allergy Overheats Verified 05/17/25 08:50 Antibiotics) (sulfa drugs) and gets very tired atorvastatin (From Lipitor) AdvReac Mild GI upset Verified 05/17/25 08:50 cetirizine (From Zyrtec) AdvReac Mild drowsiness Verified 05/17/25 08:50 ciprofloxacin (From Cipro) AdvReac Mild Other Verified 05/17/25 08:50 loratadine (From Claritin) AdvReac Mild hyperactivi Verified 05/17/25 08:50 ty Family History (Updated 05/14/25 @ 12:48 by Brenda Smith LPN) Father Cancer Stomach Heart disease Mother Thyroid disorder Heart disease Alzheimer dementia Brother Heart disease Surgical History History of esophagogastroduodenoscopy (EGD) History of colonoscopy History of wisdom tooth extraction History of bilateral cataract extraction History of ear surgery Social History household members: spouse Smoking Status: Never smoker alcohol intake: former substance use type: does not use seatbelt use: always do you feel safe at home: Yes additional social history: - Jorge Audit: Pertinent Findings Pertinent Findings Echo (EF%) pertinent findings: Echo 12/30/2023. The estimated ejection fraction is 65%. No evidence for diastolic dysfunction. Trivial mitral valve insufficiency. Recommendation Anesthesia Recommendation Anesthesia recommendation: OPTIMIZED for anesthesia
--- OUTSIDE RECORDS SUMMARY | 2025-05-18 06:01 | XMS RPT_ITS | CCD ---
Author Organization [facility] Care Team Providers Care Hand Meat Salter Name Role Phone Miscellaneous, SJ Attending Unavailable [...] Attending Unavailable NATHALIA LOU Referring Unavailable Gómez TOW TRUCK OPERATOR.COLLATERAL SPECIALIST, Jeremy M Primary Care Provider Vish CASTRO, Celi Unavailable Alyssa CASTRO, Joe Unavailable Shahram PA-C, Autumn Unavailable Phillip CASTRO, Dominique Gonsales Unavailable Gómez TOW TRUCK OPERATOR.COLLATERAL SPECIALIST, Jeremy Primary Care Provider CHENG CASTRO, JASWANT Attending Unavailable CHENG CASTRO, JASWANT Attending Unavailable Bello Davenport Chi Primary Care Provider Gómez TOW TRUCK OPERATOR.COLLATERAL SPECIALIST, Jeremy Primary Care Provider BELLO DAVENPORT CHI Primary Care Unavailable JAYME INGRAM Attending Unavailable JEREMY RAMIREZ Referring Unavailable JEREMY RAMIREZ Primary Care Unavailable Issac CASTRO, Dr. Bello Mac Primary Care Provider Issac CASTRO, Dr. Bello Mac Attending Provider Issac CASTRO, Dr. Bello Mac Referring Provider Issac CASTRO, Dr. Bello Mac Primary Care Provider [phone] Issac CASTRO, Dr. Bello Mac Referring Provider Shan Bolaños MD Attending Provider [phone] Kevin CASTRO, Dr. Castellon Attending Provider [phone] Pina Reyes Attending Provider Lise Orozco Attending Provider Issac CASTRO, Dr. Bello Mca Primary Care Provider Issac CASTRO, Dr. Bello Mac Referring Provider SHANE, ASHLEY Attending Provider [phone] SHANE, ASHLEY Referring Provider SHANE, ASHLEY Attending Provider SHANE, ASHLEY Referring Provider [phone] Marshal CLAIM ATTORNEY-CLise Referring Provider SHANE, ASHLEY Attending Provider SHANE, ASHLEY Referring Provider SHANE, ASHLEY Attending Provider [phone] SHANE, ASHLEY Referring Provider [phone] TAQUERIA VIEIRA Referring Unavailable ISSAC, BELLO CHI Primary Care Unavailable Issac CASTRO, Dr. Bello Mac Primary Care Physician Issac CASTRO, Dr. Bello Mac Referring Provider Marshal CLAIM ATTORNEY-Lise Verdin Attending Physician SHANE, ASHLEY Attending Physician [phone] SHANE, ASHLEY Attending Physician Sha W[place], Dr. [...] Unavailable Issac, Bello Chi Primary Care Unavailable Rvainder Brown Attending Unavailable Pina Robles Attending Unavailable [...] Issac, Bello Chi Primary Care Unavailable Jose Gou Attending Unavailable Jose Guo Referring Unavailable Issac, [...] Dizziness, Other MG-Orthopa[facility] Work Phone: [phone] Sulfonamides (antibiotic) (18 sources) Sulfonamides (Antibiotic); Translations: [Sulfa Drugs] Drug Allergy Other, Unknown [facility] [address] Work Phone: [phone] (20 sources) Sulfonamides (Antibiotic); Translations: [Sulfa Drugs] drug allergy Other TJ-UJXPR-[address] [place] [address] DO Work Phone: [phone] (1 source) drug allergy Unknown FD-GHUDG-P[address] DO Work Phone: [phone] (1 source) drug allergy Dizziness TD-BUSQK-B[address] DO Work Phone: [phone] (17 sources) Omeprazole; Translations: [omeprazole] Drug Allergy Other -[facility] Work Phone: (20 sources) pantoprazole; Translations: [Protonix] Drug Allergy Dizziness -Otolaryngo [facility] Work Phone: (20 sources) Sulfamethoxazole; Translations: [Gantanol] Drug Allergy Unknown -Otolaryngo [facility] Work Phone: (20 sources) Cetirizine; Translations: [CETIRIZINE HCL] Drug Allergy 6 Intolerance [facility] Work Phone: (20 sources) fexofenadine; Translations: [FEXOFENADINE HCL] Drug Allergy 6 Intolerance [facility] Work Phone: (20 sources) Loratadine; Translations: [LORATADINE] Drug Allergy 6 Intolerance [facility] Work Phone: (20 sources) Sulfonamides (Antibiotic); Translations: [SULFA (SULFONAMIDE ANTIBIOTICS)] Propensity to adverse reactions 5 Rash [facility] Work Phone: (20 sources) atorvastatin; Translations: [ATORVASTATIN] Drug Allergy 4 GI Upset [facility] (11 sources) Ciprofloxacin; Translations: [CIPROFLOXACIN] Drug Allergy 5 Other: See Comments [facility] Comment on above: Abdominal pain (7 sources) Sulfonamides (Antibiotic) Allergy to substance 5 Overheats and gets very tired [facility] (5 sources) Doxycycline; Translations: [DOXYCYCLINE] Drug Allergy 5 Other: See Comments [facility] (1 source) Ciprofloxacin Drug Allergy 5 [facility] Repository (1 source) Doxycycline Drug Allergy 5 [facility] Rep[facility] (1 source) Sulfonamides (Antibiotic) Drug allergy (disorder) 5 [facility] Repository Medications Current Medications Medication Drug Class(es) Dates Sig (Normalized) Sig (Original) 8 hr acetaminophen 650 mg extended release oral tablet (7 sources) Start: 12-26-2024 take 1 tablet by mouth once daily Start: 12-26-2024 take 1 tablet by mouth every e ight hours [id number] actuat albuterol 0.09 mg/actuat metered dose [...] twice daily for 7 days. bifidobacterium animalis [id number] unt / bifidobacterium longum [id number] unt / lactobacillus acidophilus [id number] unt oral capsule (2 sources) Start: 03-02-20 25 doxycycline monohydrate 100 mg oral tablet (2 sources) Tetracycline-clas s Drug Start: 05-29-20 End: 06-05-19 23 take 1 tablet by mouth twice daily doxycycline monohydrate 100 mg tablet Indications: Rhinosinusitis Take 1 tablet by mouth twice daily for 7 days. 14 tablet 0 05/29/2022 06/05/2022 Active Comment on above: Take 1 tablet by [facility] twice daily for 7 days. estradiol [...] on above: Take 2 tablets by mo [facility] once daily for 5 days. Completed/Discontinued Medications [...] Comment on above: Take 1 tablet by [facility] once daily. azelastine hydrochloride 0.137 mg/actuat metered dose nasal spray (6 sources) Histamine-1 Receptor Antagonist Start: 08-05-19 End: 10-04-19 take 1 spray(s) nasal route twice daily azelastine 0.1% nasal spray Indications: Nasal congestion Use 1 [place] in each nostril two times a day. 90 mL 3 08/05/2023 10/04/2023 Discontinued (Other) Comment on above: Use 1 [place] in each nostril two times a day. [...] Pack Start: 06-01-2019 take 2 tablets by [facility] once daily, then take 1 tablet [...] Start: 07-02-2015 take 1 capsule by mo [facility] three times weekly Vitamin D (Ergocalciferol) 38619 UNIT Oral Capsule take one capsule 3 times a week for 12 weeks Quantity: 36 Refills: 0 Piero Ortiz DO Joey Start : 02-Jul-2015 Active fluocinonide 0.5 mg/ml topical solution (18 sources) Corticosteroid Start: 09-08-2024 End: 09-08-2025 fluocinonide (LIDEX) 0.05 % external solution Apply to affected areas of hairloss on the scalp BID M-F 60 mL 1 09/08/2024 12/29/2024 Discontinued Lacto No.58-Bbpbmu-Eom-Lar ch 25B cell-25B cell-50 mg capsule (7 sources) Start: 08-31-2024 End: 10-05-2024 Lacto No.29-Ynhuyl-Fij-La rch 25B cell-25B cell-50 mg capsule Discontinued [...] Problem Lis omar Migration; 2012-11-30; Moved to [facility] Apr 24 2013 9:21PM; Open wounds of [...] Added by Estela Wade; 2012-11-30; Moved to [facility] Apr 24 2013 9:21PM; Otitis media and [...] Facility Orthopedic Visit Reporton Orthopedic Visit Report [facility] [address] [place] [address] [id number] OFFICE VISIT Date of Service: 04/10/25 MR#: [id number] Acct: [id number] Name: TIFFANIE RAMSEY Rep #: [id number] : 1960 Provider: Dr. Shan rich MD Age/Sex: 64/F Location: [facility] Status: Signed with Addenda ADDENDUM by THANIA [...] Performing Provider: Shan Bolaños MD Performing Location: [facility] Administered by: Shan Bolaños MD on 04/10/25 11:47 Dose Route Admin Location Dispensed Lot Number Expiration Date Package NDC NDC Analyst [employer] 40 mg intra-articular bilateral shoulder 1 mL [id number] 05/31/26 [id number] [facility] Date cc: * Signed Intake Vital Signs [...] by me, Dr. Shan Bolaños MD 04/10/25 3638. Part of today???s visit was documented by [...] injections about 7 years ago. Supplemental Info [facility] Imaging Services [address] [place] [address] Shoulder min 2 Views MR#: [id number] Acct: [id number] Name: TIFFANIE RAMSEY Rep #: [id number] : 1960 F 64 From: Km Hoover MD PCP: Dr. Bello Davenport MD Status: DEP AMB Study: Shoulder min 2 Views Date of Exam: 08/31/24 Exam# [id number] Ordering Dr: Shan Bolaños MD PROCEDURE: SHOULDER MIN 2 VIEWS 08/31/2024 REASON FOR EXAM: PAIN, NO INJURY TECHNIQUE: Four views left shoulder COMPARISON: None available FINDINGS: No fracture or dislocation. The joint spaces appear within limits. Visualized left lung appears cl (more content not included)... Normal [facility] [place] - Individual Treatment Pl anon 04-05-2025 [place] - Individual Treatment Plan [facility] Pulmonary Rehab Reports [address] [place] [address] [place] - Individual Treatment Plan MR#: [id number] Acct: [id number] Name: TIFFANIE RAMSEY Rep #: [id number] : 1960 64 From: Renzo Marquez BS, [...] scheduled to attend nutrition classes with our manager unix. Heart healthy low sodium diet encouraged. ) Nutrition/Wt Mgmt - 90-Day Visit Date of Eval: 04/05/25 Session Number:: 23 (Nutrition score of 1.) Weight Management Height: 5 ft 2 in Weight:: 137 lb 8 oz BMI: 25.1 Weight Goals Progress:: Goal met (Pt is at a healthy weight. Pt is scheduled to attend nutrition classes with our manager unix. Heart healthy low sodium diet encouraged. ) [...] for managing, (more content not included)... Normal [facility] 1,25-dihydroxyvitamin D3 [Ma ss/Vol]on 04-03-2025 VIT D1,25 DIHYDROXY 61.7 pg/mL Normal 19.9-79.3 [facility] Comment on above: Order Comment: Speci men Type: BLOOD SPECIMENOrdering Facility: [facility] Address: [address] [place] [address] Performed By: #### 1 643, 1988-07 ####[facility] LABCLIA [id number] [place] [address] [place] 25(OH)D3 SerPl-mCncon 2024 25-hydroxyvitamin D3 [Mass/Vol] 27.2 ng/mL Low 31.0-80.0 [facility] Comment on above: Order Comment: Speci men Type: BLOOD SPECIMENOrdering Facility: [facility] Address: [address] [place] [address] Performed By: #### 1 643, 1988-07 ####[facility] LABCLIA [id number] [place] [address] [place] Calcium SerPl-mCncon 025 Calcium [Mass/Vol] 10.2 mg/dL Normal 8.5-10.2 [facility] Comment on above: Order Comment: Speci men Type: BLOOD SPECIMENOrdering Facility: [facility] Address: [address] [place] [address] Performed By: #### 2 777-1, 2731-8, 75665-1 ####[facility] LABIA [id number] [place] [address] [place] Calcium.ionized [Moles/Vol]o n 04-03-2025 Calcium.ionized (Bld) [Mass/Vol] 1.35 mmol/L High 1.08-1.30 [facility] Comment on above: Order Comment: Speci men Type: BLOOD SPECIMENOrdering Facility: [facility] Address: [address] [place] [address] Performed By: #### 1 995-0 ####[facility] [id number] [place] [address] [place] Calcium.ionized adjusted to pH 7.4 (Bld) [Moles/Vol] 1.32 mmol/L High 1.08-1.30 [facility] Comment on above: Order Comment: Speci men Type: BLOOD SPECIMENOrdering Facility: [facility] Address: [address] [place] [address] Performed By: #### 1 995-0 ####[facility] [id number] [place] [id number] [place] PTH-Intact SerPl-mCncon 11-0 Parathyrin.intact [Mass/Vol] 38 pg/mL Normal 15-65 [facility] Comment on above: Order Comment: Speci men Type: BLOOD SPECIMENOrdering Facility: [facility] Address: [address] [place] [address] Performed By: #### 2 777-1, 2731-8, 27875-1 ####[facility] LABIA [id number] [place] [address] [place] Phosphate SerPl-mCncon 04-03 Phosphate [Mass/Vol] 3.8 mg/dL Normal 2.7-4.8 [facility] Comment on above: Order Comment: Speci men Type: BLOOD SPECIMENOrdering Facility: [facility] Address: [address] [place] [address] Performed By: #### 2 777-1, 2731-8, 80801-1 ####[facility] LABCLIA [id number] [address] OF [facility] CNOVon 03-29-2025 CNOV Office Visit (FAMPWS ) -- TIFFANIE RAMSEY ([id number]) 1960 F Date Time Provider Department 03/29/25 [...] Encounter Status:Closed by PINA SZYMANSKI on 03/29/25 [facility] CNOVon 03-13-2025 CNOV Office Visit (WOUCA) -- TIFFANIE RAMSEY ([id number]) 1960 F Date Time Provider Department 03/13/25 12:30 PM ADARSH CAMACHO During your visit today, we recorded the following information about you: Temperature Pulse Respiration Blood pressure 98.1 degrees 76/minute 20/minute 130/89 Weight 62 kg Adarsh Camacho APRN.COLLATERAL SPECIALIST 03/13/2025 1:00 PM Signed [facility] [...] media. - Refer to ENT within the [facility] system for further evaluation and management. - Advised against unnecessary use of antibiotics and steroids to avoid resistance and immunosuppression, especially during respiratory season. and Recording using [employer] software for draft documentation of the visit was discussed with the patient/authorized retail sales representative; all questions welcomed and answered. Patient/authorized representativ (more content not included)... Normal [facility] Laboratory - Chemistry and C hemistry - challengeOrdered By: Ally Bailey on 03-13-2025 Bilirubin Ql (U) Negative [facility] Glucose Ql (U) Negative [facility] Ketones Ql (U) Negative [facility] pH (U) 7 [pH] [facility] Specific gravity (U) [Rel density] 1.005 [facility] Urobilinogen (U) [Mass/Vol] 0.8923054 mg/dL [facility] Laboratory - Hematology and Cell countsOrdered By: Ally Bailey on 03-13-2025 Hemoglobin Ql (U) Negative [facility] Laboratory - UrinalysisOrder ed By: Ally Bailey on 03-13-2025 Nitrite Ql (U) Negative [facility] Protein Ql (U) Negative [facility] MR/CAMPOShilario 03-13-2025 MR/CAMPOS [facility] [address], [address] [place] [address] OFFICE VISIT Date of Service: 03/13/25 MR#: [id number] Acct: [id number] Name: TIFFANIE RAMSEY Rep #: [id number] : 1960 Provider: Dr. Ally Mendiola i, MD Age/Sex: 64/F [facility] Status: Signed Intake Vital Signs 01/12/25 11:20 03/08/25 08:27 03/13/25 13:04 Height 5 ft 2 in 5 ft 2 in 5 ft 2 in Weight: 135 lb BMI 24.7 BP 106/74 Pulse 70 Intake Visit Reasons: FREQUENCY Chief Complaint: new patient for urinary frequency Open Hearth Helper Required: No Accompanied by: self Is patient [...] long Bladder scan PVR 25cc [facility] Medical History H/O urinary frequency Arthritis [...] home: Yes additional social history: - Jorge [facility] Urology Chief Complaint: new patient for urinary [...] Aller/Imm Allergy (more content not included)... Normal [facility] No Panel InformationOrdered By: Ally Bailey on 03-13-2025 Urine Leukocytes Negatve [facility] Urine Non-Hemolyzed Blood Negative [facility] EGD Reporton 03-08-2025 EGD Report [facility] Medical Records Department [address] [place] [address] EGD Report MR#: [id number] Acct: [id number] Name: TIFFANIE RAMSEY Rep #: [id number] : 1960 64 From: Chuck Friend DO PCP: Dr. Bello Davenport MD Status:[facility] Patient Name: Tiffanie Ramsey Procedure Date: 03/08/2025 [...] present medications. Procedure Code(s): --- Professional --- 81382, Small intestinal endoscopy, enteroscopy beyond second portion of duodenum, not including ileum; with biopsy, single or multiple CPT copyright 2021 [employer]. All rights reserved. The codes documented in this report are preliminary and upon remote inpatient coder review may be revised to meet current compliance requirements. Chuck Dalton DO 03/08/2025 6:59:07 AM This report has been signed electronically. Number of Addenda: 0 Note Initiated On: 03/08/2025 6:11 AM 03/08/25 0659 Date Chuck Dalton DO Cosigner Signature: Date (more content not included)... Normal [facility] MR/OP.Tony 03-08-2025 MR/OP.[facility] Medical Records Department [address] [place] [address] Provation Physician Letter MR#: [id number] Acct: [id number] Name: TIFFANIE RAMSEY Rep #: [id number] : 1960 64 From: Chuck Dalton DO PCP: Dr. Bello Davenport MD Status:REG [facility] 03/08/2025 Bello Davenport MD [address] [place] [address] Re : Upper GI endoscopy procedure for [...] Dalton DO Date Dictated: 03/08/25610 Date Transcribed: Sciences Dean: JAVIER Signed [facility] MR/POSTOP.[facility] 03-08-2025 MR/POSTOP.[facility] Medical Records Department [address] [place] [address] Anesthesia Postop Eval I 03/08/25 0704 MR#: [id number] Acct: [id number] Name: TIFFANIE RAMSEY Rep #: [id number] : 1960 64 From: Jose Lopez PCP: Dr. Bello Davenport MD Status:REG [facility] Y Race: C Location: AC AC10-1 Anesthesia: [...] Jose Smithigner Signature: Date CC: Signed Normal [facility] MR/GPGONVTC2hp 03-08-2025 /[facility] Medical Records Department [address] [place] [address] Anesthesia Postop Eval II 03/08/25718 MR#: [id number] Acct: [id number] Name: TIFFANIE RAMSEY Rep #: [id number] : 1960 64 From: Umesh Graf MD PCP: Dr. Bello Davenport MD Status:REG [facility] Y Race: C Location: [address] Anesthesia Postop Eval I Sum Postop [...] Umesh Lebron Signature: Date CC: Signed Normal [facility] [place] - Individual Treatment Pl anon 03-08-2025 [place] - Individual Treatment Plan [facility] Pulmonary Rehab Reports [address] [place] [address] [place] - Individual Treatment Plan MR#: [id number] Acct: [id number] Name: TIFFANIE RAMSEY Rep #: [id number] : 1960 64 From: Renzo Marquez BS, [...] scheduled to attend nutrition classes with our manager unix. Heart healthy low sodium diet encouraged. ) Nutrition/Wt Mgmt - 90-Day Visit Session Number:: 15 Weight Management Height: 5 ft 2 in Weight:: 137 lb 8 oz BMI: 25.1 Weight Goals Progress:: Goal met (Pt is at a healthy weight. Pt is scheduled to attend nutrition classes with our manager unix. Heart healthy low sodium diet encouraged. ) [...] Referred t (more content not included)... Normal [facility] Surgery Specimen Level Gayle 03-08-2025 Surgery Specimen Level IV Patient Age/Sex Location Account Attending Physician TIFFANIE RAMSEY/Patito EN [id number] Chuck Dalton DO Specimen: [id number] Received: 03/08/25 Status: PHILL Lott Num: [id number] Spec Type: EGD BIOPSY Subm Dr: Chuck [...] specimen is totally submitted in one cassette. AL 03/08/2025 [facility]:[id number] Patient Age/Sex Location Account Attending Physician TIFFANIE RAMSEY 64/F EN [id number] Chuck Dalton DO Signed (signature on file) Dr. Nargis Henderson DO 03/09/25 1041 Normal [facility] Comment on above: Performed By: #### P DAVID ####[facility] [address] [place], [address] Joe 02-26-2025 [facility] Telephone ([facility]) -- TIFFANIE RAMSEY ([id number]) 1960 F Date Time Provider Department 02/26/25 TAQUERIA VIEIRA [facility] During your visit today, we recorded the following information about you: Preet Lockwood RN 02/26/2025 11:07 AM Addendum Pt called in and reports provider had wanted her to call and have records from Dr Diaz her ENT sent to providers office for [facility]. She states that they need provider to send a form requesting the forms. Sending form for all of Pt's records to fax # [phone]. Do not know what provider wants in particular. Sent form for providers office to fax over all of Pt's office notes to fax # [phone]. JOHN Baez William J, MD 02/26/2025 11:08 AM Signed We need records for her issues with taste and smell, particularly if she had nasal endoscopy done Rosalind Bergeron RN 02/26/2025 12:06 PM Signed Called and spoke with patient, let her know that I sent her a Enubila message with form to request medical records. [...] Encounter Status:Closed by PREET LOCKWOOD on 02/26/25 [facility] 02-23-2025 [facility] Telephone ([facility]) -- TIFFANIE RAMSEY ([id number]) 1960 F Date Time Provider Department 02/23/25 [...] Status:Closed by JUAN MIGUEL MUÑOZ on 02/28/25 [facility] CNOVon 02-22-2025 CNOV Office Visit ([facility] ) -- TIFFANIE RAMSEY ([id number]) 1960 F Date Time Provider Department 02/22/25 9:00 AM TAQUERIA VIEIRA [facility] During your visit today, we recorded [...] for an EGD (esophagogastroduodenoscop y) with your proposal writer on March 13 to evaluate your abdominal [...] levels. You can complete these labs at [place] or [place] when convenient. If abnormalities persist, we may [...] a follow-up with me in May in [place]. 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 (more content not included)... Normal [facility] ECHOon 02-20-2025 Echocardiography Echocardiography Rep ort: Transthoracic Echo [facility] Date of service: 02/20/2025 9:48:43 AM Ordering physician: TAQUERIA VIEIRA Exam indication: Shortness of Breath Technologist: Emelia Musa [facility] Interpreting physician: Shelia Quezada MD PATIENT: Name: [...] * * Final * * * CC [employer] Image : [id number] 29[employer]ynamicsSISD [facility] [place] - Individual Treatment Pl anon 02-08-2025 [place] - Individual Treatment Plan [facility] Pulmonary Rehab Reports [address] [place] [address] [place] - Individual Treatment Plan MR#: [id number] Acct: [id number] Name: TIFFANIE RAMSEY Rep #: [id number] : 1960 64 From: Renzo Marquez BS, [...] Behavioral Health (more content not included)... Normal [facility] Breast imaging reportOrdered By: Reinaldo Soriano on 01-18-2025 Study report [facility] Imaging Services [address] [place] [address] SCRN MAMM (CAD)W/BEBA BILAT MR#: [id number] Acct: [id number] Name: TIFFANIE RAMSEY Rep #: [id number] : 1960 F 64 From: Avery Soriano MD PCP: Dr. Bello Davenport MD Status: REG [facility] SH[facility] Study:SCRN MAMM (CAD)W/BEBA BILAT Date of Exa m: 01/18/25 Exam# [id number] Ordering Dr: Lise Araya CLAIM ATTORNEY CLAIM ATTORNEY-C EXAM: SCRN MAMM (CAD)W/BEBA BILAT DATE: 01/18/2025 [...] be mailed to the patient. Reading Location: [facility] CC: VERENICE Araya; Dr. Bello Davenport MD ~ Sciences Dean: Signed [facility] SCRN MAMM (CAD)W/BEBA BILATo n 01-18-2025 SCRN MAMM (CAD)W/BEBA BILAT [facility] Imaging Services [address] [place], [place] [address] SCRN MAMM (CAD)W/BEBA BILAT MR#: [id number] Acct: [id number] Name: TIFFANIE RAMSEY Rep #: [id number] : 1960 F 64 From: Reinaldo stanton MD PCP: Dr. Bello Davenport MD Status: [facility] Study: SCRN MAMM (CAD)W/BEBA BILAT Date of Exam: 12/30 06/24 Exam# [id number] Ordering Dr: Lise Araya NP, NP -Velvet [...] CC: VERENICE Araya; Dr. Bello Davenport MD Sciences Dean: Signed Normal [facility] CNOVon 01-16-2025 CNOV Office Visit ([facility] ) -- TIFFANIE RAMSEY ([id number]) 1960 F Date Time Provider Department 01/16/25 [...] A CT scan performed last year at [facility] reportedly showed only stool retention, with no [...] Abs Lymph 1.00 - 4.00 k/uL 1.42 Huntington% % 6.6 Abs [place] <0.87 k/uL 0.43 Eosin% % 2.8 Abs [...] 01/27/2021 EAR SURGERY HX Right EGD W/O RUSTH SPEC VARICIES INJ 10-12 years ago Allergies: ALLERGIES Allergen Reactions Ciprofloxacin Other: See Comments Abdominal cramping Doxycycline Other: See Comments Abdominal cramping Abby [Fexofenadi* Intolerance Hyperactivity Claritin [Loratadin* Intolerance Hyperactivity Lipitor [Atorvastat* GI Upset Sulfa (Sulfonamide * Rash Zyrtec [Cetirizine * Intolerance Drowsiness (more content not included)... 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 Normal [facility] [place] - Individual Treatment Pl anon 01-12-2025 [place] - Individual Treatment Plan [facility] Pulmonary Rehab Reports [address] [place] [address] [place] - Individual Treatment Plan MR#: [id number] Acct: [id number] Name: TIFFANIE RAMSEY Rep #: [id number] : 1960 64 From: Renzo Marquez BS, RVT PCP: Dr. 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 Normal [facility] 01-10-2025 [facility] Telephone (GERIWR) -- TIFFANIE RAMSEY ([id number]) 1960 F Date Time Provider Department 01/10/25 [...] Assessed Reason for Visit: Faxed to Dr. Gbison [Other] Prescriptions as of 01/10/2025 - albuterol [...] Encounter Status:Closed by Yu MCCORMACK on 01/10/25 [facility] Joe 01-01-2025 [facility] Telephone (PULMAV) -- TIFFANIE RAMSEY ([id number]) 1960 F Date Time Provider Department 01/01/25 ASHLEY LYNN PULGALEN During your visit today, we recorded the following information about you: Macho Baeza LPN 01/01/2025 1:19 PM Signed Patient calling. At [facility] trying to get scheduled for Pulmonary Rehab. They are asking for documentation for Shortness of Breath. Please fax order whatever testing (had breathing tests done on 12/21) showed this to [facility] at [phone]. PFT results from 12/21 faxed to [facility] via [facility] Shu Kelley 01/03/2025 10:27 AM Addendum Patient is calling back in today, [place] needs the office notes that document the discussion of shortness of breath. Please fax over to: [phone]. Patient cannot start her rehab until [place] has this documentation. It's required by the insurance company. Esther Cummings 01/03/2025 10:44 AM Signed Patient calling back to let office know that [facility] does not use epic and OV notes must be faxed. Cortes Martell LPN 01/03/2025 11:39 AM Signed Faxed all necessary paperwork to [facility] w/ confirmation. Called and passed along to [...] Encounter Status:Closed by MACHO BAEZA on 01/01/25 [facility] CNOVon 12-29-2024 CNOV Office Visit (PULMAV ) -- TIFFANIE RAMSEY ([id number]) 1960 F Date Time Provider Department 12/29/24 [...] OF DYSPNEA and PASC 19 Recording using [employer] software for draft documentation of the visit was discussed with the patient/authorized retail sales representative; all questions welcomed and answered. Patient/authorized retail sales representative agreed to proceed HPI: Tiffanie Ramsey [...] pattern of energy depletion, stating that by 5537-3152 each day, she feels as though her [...] Hyperactivity Lipito (more content not included)... Normal [facility] CNOVon 12-28-2024 CNOV Office Visit (GERIWR ) -- TIFFANIE RAMSEY ([id number]) 1960 F Date Time Provider Department 12/28/24 10:30 AM ANNA TABOR During your visit today, we recorded the following information about you: Pulse Respiration Blood pressure Weight 82/minute 16/minute 124/85 61.6 kg Anna Tabor MD 12/28/2024 2:59 PM Signed [facility] Initial Consult [...] or hoarding: NO Social History: Primary language: Azeri Marital Status: Living situation: Home w/ Spouse Socially engaged? (participates in activities such as clubs, jewish, community center, sports, games, visiting friends/relatives, etc?): YES Caregiver [place] and Stress Are your feeling overwhelmed? YES [...] 12/28/2024, S (more content not included)... Normal [facility] Junior Linux Administrator Office Visit Reporton 12-26-2024 Junior Linux Administrator Office Visit Report [facility] [address], [address] [place] [address] OFFICE VISIT Date of Service: 12/26/24 MR#: [id number] Acct: [id number] Name: TIFFANIE RAMSEY Rep #: [id number] : 1960 Provider: VERENICE barroso Age/Sex: 64/F [place] [facility] Status: Signed Intake Vital Signs 10/05/24 10:39 12/26/24 09:08 Height 5 ft 2 in 5 ft 2 in Weight: 136 lb 2 oz BMI 24.9 BP 122/74 H Intake Visit Reasons: Annual ([employer]AT W[employer]) Chief Complaint: 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 problematic, old [employer] at gave estradiol cream but not using consistently Last PAP: 2020 -scanned to chart History of abnormal PAP: no Last mammogram: 12/2023 History of abnormal mammogram: no Colon cancer screenin Other preventative health care screenings: [place] Female Reproductive History Questions: metorrhagia: No, sexually [...] oriented to person and oriented to place [facility] Head: normal to inspection Neck Neck: [...] with ab (more content not included)... 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 Lung Volumes are repeatable x3. Normal [facility] LUNG VOLUMESon 12-21-2024 LUNG VOLUMES [facility] [address] [place] [address] Test Date: 2024-12-21 Pat Name: TIFFANIE RAMSEY Department: Room: Gender: Female Acoustic Sensor Operator: : 1960 Requested By: Order Number: [id number] Reading MD: Piero Gonzalez MD Interpretive Statements [...] 10:23:05 EDT by Piero Gonzalez MD ID: [id number] Name: TIFFANIE RAMSEY Race: White Ht: 62.72 [...] 90-100 1.28 52 FIVC 3.05 2.94 -3 DWV18-81 2.35 0.93 1.94 3.35 120 0.53 1.36 [...] maneuvers. Lung Volumes are repeatable x3. Normal [facility] SIX MINUTE WALKon 12-21-2024 Piero Gonzalez M [...] DATE: December 21, 2024 TIME: 11:20 AM [facility] SIX MINUTE WALKOrdered By: Yu Gonzalez on 12-21-2024 [facility] Work Phone: SPIROMETRY - BASELINE AND PO ST DILATORon 12-21-2024 SPIROMETRY - BASELINE AND POST DILATOR [facility] [address] [address] Test Date: 2024-12-21 Pat Name: TIFFANIE RAMSEY Department: Room: Gender: Female Acoustic Sensor Operator: : 1960 Requested By: Order Number: [id number] Reading MD: Piero Gonzalez MD Interpretive Statements [...] 10:23:05 EDT by Piero Gonzalez MD ID: [id number] Name: TIFFANIE RAMSEY Race: White Ht: 62.72 [...] 90-100 1.28 52 FIVC 3.05 2.94 -3 RVK67-50 2.35 0.93 1.94 3.35 120 0.53 1.36 [...] 79 % FEV1/FVC_LLN (%) : 67 % NGP42_UVP (L/S) : 3.83 L/S TKF36_ZRGR (L/S) : 4.51 L/S NPM91_UDI (L/S) : 0.86 L/S YXB77_TDGI (L/S) : 0.27 L/S AXB63_YGAN (L/S) : 0.50 L/S ILN20_SCL (L/S) : 0.19 L/S MDO88_ZRL (L/S) : 1.25 L/S VYD34-00%_PRE (L/S) : 2.35 L/S QWO24-93%_POST (L/S) : 1.36 L/S JUY69-85%_PRED (L/S) : 1.94 L/S ZWT37-28%_LLN (L/S) : 0.93 L/S PEF_PRE (L/S) : [...] ml/min/mmHg DLCO/VACOR (ML/MIN/MMHG/L) : 0.04 ml/min/mmHg/L Normal [facility] 25-hydroxyvitamin D3 [Mass/V ol]on 12-16-2024 Interpretation and review of laboratory results Normal [facility] The reference range interval was based on an analysis of samples from healthy adults and may not pertain to children from 0-18 years old. [facility] PTH INTACTon 12-16-2024 Parathyrin.intact [Mass/Vol] 43 pg/mL 15 - 65 pg/mL [facility] Parathyrin.intact [Mass/Vol] on 12-16-2024 Interpretation and review of laboratory results Normal [facility] VITAMIN D 25 HYDROXYon 12-16 25-hydroxyvitamin D3 [Mass/Vol] 43.6 ng/mL 31.0 - 80.0 ng/mL [facility] Comment on above: Classification of 25 [place] Vitamin D status: Deficiency/Insufficiency: < or = 30 ng/ml. Sufficiency/Optimal Levels: 31-80 ng/mL Toxicity: > 100 ng/mL. Test performed by chemiluminescent immunoassay. 25(OH)D3 SerPl-mCncon 2024 25-hydroxyvitamin D3 [Mass/Vol] 43.6 ng/mL Normal 31.0-80.0 [facility] Comment on above: Order Comment: Kia mei Type: BLOOD SPECIMENOrdering Facility: [facility] Address: [address] [place] [address] Result Comment: Clas sification of 25 [place] Vitamin D status: Deficiency/Insufficiency: < or = 30 ng/ml. Sufficiency/Optimal Levels: 31-80 ng/mL Toxicity: > 100 ng/mL. Test performed by chemiluminescent immunoassay. Performed By: #### 1 989-3 ####[facility] LABCLIA [id number] [place] [address] [place] CARBOXYHEMOGLOBIN VENon 11-28 Carboxyhemoglobin (BldV) [Mass fraction] 1.3 % 0.0 - 2.0 % [facility] Comment on above: Carboxyhemoglobin Re ference Range for Smokers: 2.0-8.0% Interpretation and review of laboratory results Normal [facility] Carboxyhemoglobin (BldV) [Mass fraction] 1.3 % Normal 0.0-2.0 [facility] Comment on above: Order Comment: Kia mei Type: BLOOD SPECIMEN Ordering Facility: [facility] Address: [address] [place] [address] Result Comment: Carb oxyhemoglobin Reference Range for Smokers: 2.0-8.0% Performed By: #### 5 7021-8 #### [facility] CLIA [id number] [address] [place] [address] [place] [facility] CBC W Auto Differential pane l (Bld)on 12-15-2024 Basophils (Bld) [#/Vol] 0.09 10*3/uL [facility] Basophils/100 WBC (Bld) 1.7 % [facility] Differential cell count method Nom (Bld) Auto [facility] Eosinophils (Bld) [#/Vol] 0.19 10*3/uL [facility] Eosinophils/100 WBC (Bld) 3.6 % [facility] Erythrocyte distribution width (RBC) [Ratio] 13.5 % 11.5 - 15.0 % [facility] Hematocrit (Bld) [Volume fraction] 44.5 % 36.0 - 46.0 % [facility] Hemoglobin (Bld) [Mass/Vol] 15.1 g/dL 11.5 - 15.5 g/dL [facility] Immature granulocytes (Bld) [#/Vol] [facility] Immature granulocytes/100 WBC (Bld) 0.4 % [facility] Interpretation and review of laboratory results Abnormal [facility] Lymphocytes (Bld) [#/Vol] 1.29 10*3/uL [facility] Lymphocytes/100 WBC (Bld) 24.1 % [facility] MCH (RBC) [Entitic mass] 28.9 pg 26.0 - 34.0 pg [facility] MCHC (RBC) [Mass/Vol] 33.9 g/dL 30.5 - 36.0 g/dL [facility] MCV (RBC) [Entitic vol] 85.1 fL 80.0 - 100.0 fL [facility] Monocytes (Bld) [#/Vol] 0.44 10*3/uL [facility] Monocytes/100 WBC (Bld) 8.2 % [facility] Neutrophils (Bld) [#/Vol] 3.32 10*3/uL [facility] Neutrophils/100 WBC (Bld) 62.0 % [facility] Nucleated RBC (Bld) [#/Vol] [facility] Nucleated RBC/100 WBC (Bld) [Ratio] 0.0 % /100 WBC [facility] Platelet mean volume (Bld) [Entitic vol] 9.3 fL 9.0 - 12.7 fL [facility] Platelets (Bld) [#/Vol] 285 10*3/uL [facility] RBC (Bld) [#/Vol] 5.23 10*6/uL High 3.90 - 5.2 0 m/uL [facility] WBC (Bld) [#/Vol] 5.35 10*3/uL [facility] Basophils (Bld) [#/Vol] 0.09 10*3/uL Normal <0.11 [facility] Comment on above: Order Comment: Speci men Type: BLOOD SPECIMEN [facility] Facility: [facility] Address: [address] [place] [address] Performed By: #### 5 7021-8 #### [facility] CLIA [id number] [address] [place] [address] [place] Basophils/100 WBC (Bld) 1.7 % Normal [facility] Comment on above: Order Comment: Speci men Type: BLOOD SPECIMEN Ordering Facility: [facility] Address: [address] [place] [address] Performed By: #### 5 7021-8 #### [facility] CLIA [id number] [address] [place] [address] [place] Differential cell count method Nom (Bld) Auto Normal [facility] Comment on above: Order Comment: Speci men Type: BLOOD SPECIMEN Ordering Facility: [facility] Address: [address] [place] [address] Performed By: #### 5 7021-8 #### [facility] CLIA [id number] [address] [place] [address] [place] Eosinophils (Bld) [#/Vol] 0.19 10*3/uL Normal <0.46 [facility] Comment on above: Order Comment: Speci men Type: BLOOD SPECIMEN Ordering Facility: [facility] Address: [address] [place] [address] Performed By: #### 5 7021-8 #### [facility] CLIA [id number] [address] [place] [address] [place] Eosinophils/100 WBC (Bld) 3.6 % Normal [facility] Comment on above: Order Comment: Speci men Type: BLOOD SPECIMEN Ordering Facility: [facility] Address: [address] [place] [address] Performed By: #### 5 7021-8 #### [facility] CLIA [id number] [address] [place] [address] [place] Erythrocyte distribution width (RBC) [Ratio] 13.5 % Normal 11.5-15.0 [facility] Comment on above: Order Comment: Speci men Type: BLOOD SPECIMEN Ordering Facility: [facility] Address: [address] [place] [address] Performed By: #### 5 7021-8 #### [facility] CLIA [id number] [address] [place] [address] [place] Hematocrit (Bld) [Volume fraction] 44.5 % Normal 36.0-46.0 [facility] Comment on above: Order Comment: Speci men Type: BLOOD SPECIMEN Ordering Facility: [facility] Address: [address] [place] [address] Performed By: #### 5 7021-8 #### [facility] CLIA [id number] [address] [place] [address] [place] Hemoglobin (Bld) [Mass/Vol] 15.1 g/dL Normal 11.5-15.5 [facility] Comment on above: Order Comment: Speci men Type: BLOOD SPECIMEN Ordering Facility: [facility] Address: [address] [place] [address] Performed By: #### 5 7021-8 #### [facility] CLIA [id number] [address] [place] [address] [place] Immature granulocytes (Bld) [#/Vol] 10*3/uL Normal <0.10 [facility] Comment on above: Order Comment: Speci men Type: BLOOD SPECIMEN [facility]ing Facility: [facility] Address: [address] [place] [address] Performed By: #### 5 7021-8 #### [facility] CLIA [id number] [address] [place] [address] [place] Immature granulocytes/100 WBC (Bld) 0.4 % Normal [facility] Comment on above: Order Comment: Speci men Type: BLOOD SPECIMEN [facility] Address: [address] [place] [address] Performed By: #### 5 7021-8 #### [facility] CLIA [id number] [address] [place] [address] [place] Lymphocytes (Bld) [#/Vol] 1.29 10*3/uL Normal 1.00-4.00 [facility] Comment on above: Order Comment: Speci men Type: BLOOD SPECIMEN [facility]: [facility] Address: [address] [place] [address] Performed By: #### 5 7021-8 #### [facility] CLIA [id number] [address] [place] [address] [place] Lymphocytes/100 WBC (Bld) 24.1 % Normal [facility] Comment on above: Order Comment: Speci men Type: BLOOD SPECIMEN [facility]ing Facility: [facility] Address: [address] [place] [address] Performed By: #### 5 7021-8 #### [facility] CLIA [id number] [address] [place] [address] [place] MCH (RBC) [Entitic mass] 28.9 pg Normal 26.0-34.0 [facility] Comment on above: Order Comment: Speci men Type: BLOOD SPECIMEN [facility] Address: [address] [place] [address] Performed By: #### 5 7021-8 #### [id number] [address] [place] [address] [place] MCHC (RBC) [Mass/Vol] 33.9 g/dL Normal 30.5-36.0 [facility] Comment on above: Order Comment: Speci men Type: BLOOD SPECIMEN [facility] Address: [address] [place] [address] Performed By: #### 5 7021-8 #### [facility] [id number] [address] [place] [address] [place] MCV (RBC) [Entitic vol] 85.1 fL Normal 80.0-100.0 [facility] Comment on above: Order Comment: Speci men Type: BLOOD SPECIMEN [facility] Address: [address] [place] [address] Performed By: #### 5 7021-8 #### [facility] [id number] [address] [place] [address] [place] Monocytes (Bld) [#/Vol] 0.44 10*3/uL Normal <0.87 [facility] Comment on above: Order Comment: Speci men Type: BLOOD SPECIMEN [facility] Address: [address] [place] [address] Performed By: #### 5 7021-8 #### [facility] CLIA [id number] [address] [place] [address] [place] Monocytes/100 WBC (Bld) 8.2 % Normal [facility] Comment on above: Order Comment: Speci men Type: BLOOD SPECIMEN [facility] Address: [address] [place] [address] Performed By: #### 5 7021-8 #### [facility] [id number] [address] [place] [address] [place] Neutrophils (Bld) [#/Vol] 3.32 10*3/uL Normal 1.45-7.50 [facility] Comment on above: Order Comment: Speci men Type: BLOOD SPECIMEN [facility] Address: [address] [place] [address] Performed By: #### 5 7021-8 #### [facility] CLIA [id number] [address] [place] [address] [place] Neutrophils/100 WBC (Bld) 62.0 % Normal [facility] Comment on above: Order Comment: Speci men Type: BLOOD SPECIMEN [facility]ing Facility: [facility] Address: [address] [place] [address] Performed By: #### 5 7021-8 #### [facility] CLIA [id number] [address] [place] [address] [place] Nucleated RBC (Bld) [#/Vol] 10*3/uL Normal <0.01 [facility] Comment on above: Order Comment: Speci men Type: BLOOD SPECIMEN [facility] Address: [address] [place] [address] Performed By: #### 5 7021-8 #### [facility] CLIA [id number] [address] [place] [address] [place] Nucleated RBC/100 WBC (Bld) [Ratio] 0.0 /100 WBC Normal [facility] Comment on above: Order Comment: Speci men Type: BLOOD SPECIMEN [facility] Address: [address] [place] [address] Performed By: #### 5 7021-8 #### [facility] CLIA [id number] [address] [place] [address] [place] Platelet mean volume (Bld) [Entitic vol] 9.3 fL Normal 9.0-12.7 [facility] Comment on above: Order Comment: Speci men Type: BLOOD SPECIMEN [facility] Address: [address] [place] [address] Performed By: #### 5 7021-8 #### [facility] CLIA [id number] [address] [place] [address] [place] Platelets (Bld) [#/Vol] 285 10*3/uL Normal 150-400 [facility] Comment on above: Order Comment: Speci men Type: BLOOD SPECIMEN [facility] Address: [address] [place] [address] Performed By: #### 5 7021-8 #### [facility] CLIA [id number] [address] [place] [address] [place] RBC (Bld) [#/Vol] 5.23 10*6/uL High 3.90-5.20 [facility] Comment on above: Order Comment: Speci men Type: BLOOD SPECIMEN [facility] Address: [address] [place] [address] Performed By: #### 5 7021-8 #### [facility] CLIA [id number] [address] [place] [address] [place] WBC (Bld) [#/Vol] 5.35 10*3/uL Normal 3.70-11.00 [facility] Comment on above: Order Comment: Speci men Type: BLOOD SPECIMEN [facility] Address: [address] [place], [place] [address] Performed By: #### 5 7021-8 #### [facility] CLIA [id number] [address] [place] [address] [place] Calcium.ionized [Moles/Vol]o n 12-15-2024 Calcium.ionized (Bld) [Mass/Vol] 1.31 mmol/L High 1.08 - 1.30 mmol/L [facility] Calcium.ionized adjusted to pH 7.4 (Bld) [Moles/Vol] 1.31 mmol/L High 1.08 - 1.30 mmol/L [facility] Interpretation and review of laboratory results Abnormal [facility] Calcium.ionized (Bld) [Mass/Vol] 1.31 mmol/L High 1.08-1.30 [facility] Comment on above: Order Comment: Speci men Type: BLOOD SPECIMENOrdering Facility: [facility] Address: [address] [place] [address] Performed By: #### 1 995-0 ####[facility] [id number] [place] [address] [place] Calcium.ionized adjusted to pH 7.4 (Bld) [Moles/Vol] 1.31 mmol/L High 1.08-1.30 [facility] Comment on above: Order Comment: Speci men Type: BLOOD SPECIMENOrdering Facility: [facility] Address: [address] [place] [address] Performed By: #### 1 995-0 ####[facility] [id number] [place] [address] [place] P[facility]-Intact [facility]28 Parathyrin.intact [Mass/Vol] 43 pg/mL Normal 15-65 [facility] Comment on above: Order Comment: Speci men Type: BLOOD SPECIMEN Ordering Facility[facility] Address: [address] [place] [address] Performed By: #### 5 7021-8 #### [facility] [id number] [address] [place] [address] [place] Joe 12-04-2024 GIANNAN Telephone (FAMPWS) -- TIFFANIE RAMSEY ([id number]) 1960 F Date Time Provider Department 12/04/24 [...] [email or web address] . [3] Marge RM, Saw O, Dbe AF, Lei DP. Automated detection of cognitive impairment in clinical practice. J Neurol. 2023Nov 01. doi: 10.1007/[id number] . Epub ahead of print. PMID: [id number]. 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 Also [...] Status:Closed by ROSALIND BERGERON on 12/06/24 Normal [facility] 25(OH)D3 [facility] 25-hydroxyvitamin D3 [Mass/Vol] 52.6 ng/mL Normal 31.0-80.0 [facility] Comment on above: Order Comment: Speci men Type: BLOOD SPECIMENOrdering Facility: [facility] Address: [address] [place] [address] Result Comment: Clas sification of 25 OH Vitamin D status: Deficiency/Insufficiency: < or = 30 ng/ml. Sufficiency/Optimal Levels: 31-80 ng/mL Toxicity: > 100 ng/mL. Test performed by chemiluminescent immunoassay. Performed By: #### 1 989-3 ####[facility] LABCLIA [id number] [place] [address] [place] CBC W Auto Differential pane l (Bld)on 11-30-2024 Basophils (Bld) [#/Vol] 0.09 10*3/uL [facility] [place] Basophils/100 WBC (Bld) 1.4 % [facility] Differential cell count method Nom (Bld) Auto [facility] Eosinophils (Bld) [#/Vol] 0.18 10*3/uL [facility] [place] Eosinophils/100 WBC (Bld) 2.8 % [facility] Erythrocyte distribution width (RBC) [Ratio] 14.1 % 11.5 - 15.0 % [facility] Hematocrit (Bld) [Volume fraction] 47.8 % High 36.0 - 46.0 % [facility] Hemoglobin (Bld) [Mass/Vol] 15.8 g/dL High 11.5 - 15.5 g/dL [facility] Immature granulocytes (Bld) [#/Vol] 0.04 10*3/[facility]L [facility] Immature granulocytes/100 WBC (Bld) 0.6 % [facility] Interpretation and review of laboratory results Abnormal [facility] Lymphocytes (Bld) [#/Vol] 1.42 10*3/uL [facility] Lymphocytes/100 WBC (Bld) 21.9 % [facility] MCH (RBC) [Entitic mass] 28.9 pg 26.0 - 34.0 pg [facility] MCHC (RBC) [Mass/Vol] 33.1 g/dL 30.5 - 36.0 g/dL [facility] MCV (RBC) [Entitic vol] 87.5 fL 80.0 - 100.0 fL [facility] Monocytes (Bld) [#/Vol] 0.43 10*3/uL [facility] Monocytes/100 WBC (Bld) 6.6 % [facility] Neutrophils (Bld) [#/Vol] 4.31 10*3/uL [facility] Neutrophils/100 WBC (Bld) 66.7 % [facility] Nucleated RBC (Bld) [#/Vol] [facility] Nucleated RBC/100 WBC (Bld) [Ratio] 0 % /100 WBC [facility] Platelet mean volume (Bld) [Entitic vol] 10.4 fL 9.0 - 12.7 fL [facility] Platelets (Bld) [#/Vol] 300 10*3/uL [facility] RBC (Bld) [#/Vol] 5.46 10*6/uL High 3.90 - 5.2 0 m/uL [facility] WBC (Bld) [#/Vol] 6.47 10*3/uL [facility] Basophils (Bld) [#/Vol] 0.09 10*3/uL Normal <0.11 [facility] Comment on above: Order Comment: Speci men Type: BLOOD SPECIMENOrdering Facility: [facility] Address: [address] [place] [address] Performed By: #### 5 7021-8 ####[facility] LABCLIA [id number] [address] OF [place] Basophils/100 WBC (Bld) 1.4 % Normal [facility] Comment on above: Order Comment: Speci men Type: BLOOD SPECIMENOrdering Facility: [facility] Address: [address] [place] [address] Performed By: #### 5 7021-8 ####[facility] LABCLIA [id number] [place] [address] [place] Differential cell count method Nom (Bld) Auto Normal [facility] Comment on above: Order Comment: Speci men Type: BLOOD SPECIMENOrdering Facility: [facility] Address: [address] [place] [address] Performed By: #### 5 7021-8 ####[facility] LABCLIA [id number] [place] [address] [place] Eosinophils (Bld) [#/Vol] 0.18 10*3/uL Normal <0.46 [facility] Comment on above: Order Comment: Speci men Type: BLOOD SPECIMENOrdering Facility: [facility] Address: [address] [place] [address] Performed By: #### 5 7021-8 ####[facility] LABCLIA [id number] [place] [address] [place] Eosinophils/100 WBC (Bld) 2.8 % Normal [facility] Comment on above: Order Comment: Speci men Type: BLOOD SPECIMENOrdering Facility: [facility] Address: [address] [address] Performed By: #### 5 7021-8 ####[facility] LABCLIA [id number] [place] [address] [place] Erythrocyte distribution width (RBC) [Ratio] 14.1 % Normal 11.5-15.0 [facility] Comment on above: Order Comment: Speci men Type: BLOOD SPECIMENOrdering Facility: [facility] Address: [address] [place] [address] Performed By: #### 5 7021-8 ####[facility] LABCLIA [id number] [address], [place] [address] [place] Hematocrit (Bld) [Volume fraction] 47.8 % High 36.0-46.0 [facility] Comment on above: Order Comment: Speci men Type: BLOOD SPECIMENOrdering Facility: [facility] Address: [address] [place] [address] Performed By: #### 5 7021-8 ####[facility] LABIA [id number] [address], [place] [address] [place] Hemoglobin (Bld) [Mass/Vol] 15.8 g/dL High 11.5-15.5 [facility] Comment on above: Order Comment: Speci men Type: BLOOD SPECIMENOrdering Facility: [facility] Address: [address] [place] [address] Performed By: #### 5 7021-8 ####[facility] LABIA [id number] [address], [place] [address] [place] Immature granulocytes (Bld) [#/Vol] 0.04 10*3/uL Normal <0.10 [facility] Comment on above: Order Comment: Speci men Type: BLOOD SPECIMENOrdering Facility: [facility] Address: [address] [place] [address] Performed By: #### 5 7021-8 ####[facility] LABIA [id number] [place] [address] [place] Immature granulocytes/100 WBC (Bld) 0.6 % Normal [facility] Comment on above: Order Comment: Speci men Type: BLOOD SPECIMENOrdering Facility: [facility] Address: [address] [place] [address] Performed By: #### 5 7021-8 ####[facility] LABIA [id number] [place] [address] [place] Lymphocytes (Bld) [#/Vol] 1.42 10*3/uL Normal 1.00-4.00 [facility] Comment on above: Order Comment: Speci men Type: BLOOD SPECIMENOrdering Facility: [facility] Address: [address] [place] [address] Performed By: #### 5 7021-8 ####[facility] LABCLIA [id number] [place] [address] [place] Lymphocytes/100 WBC (Bld) 21.9 % Normal [facility] Comment on above: Order Comment: Speci men Type: BLOOD SPECIMENOrdering Facility: [facility] Address: [address] [place] [address] Performed By: #### 5 7021-8 ####[facility] LABIA [id number] [place] [address] [place] MCH (RBC) [Entitic mass] 28.9 pg Normal 26.0-34.0 [facility] Comment on above: Order Comment: Speci men Type: BLOOD SPECIMENOrdering Facility: [facility] Address: [address] [address] Performed By: #### 5 7021-8 ####[facility] LABIA [id number] [place] [address] [place] MCHC (RBC) [Mass/Vol] 33.1 g/dL Normal 30.5-36.0 [facility] Comment on above: Order Comment: Speci men Type: BLOOD SPECIMENOrdering Facility: [facility] Address: [address] [address] Performed By: #### 5 7021-8 ####[facility] LABIA [id number] [place] [address] [place] MCV (RBC) [Entitic vol] 87.5 fL Normal 80.0-100.0 [facility] Comment on above: Order Comment: Speci men Type: BLOOD SPECIMENOrdering Facility: [facility] Address: [address] [place] [address] Performed By: #### 5 7021-8 ####[facility] LABCLIA [id number] [facility] [address] [place] [address] [place] Monocytes (Bld) [#/Vol] 0.43 10*3/uL Normal <0.87 [facility] Comment on above: Order Comment: Speci men Type: BLOOD SPECIMENOrdering Facility: [facility] Address: [address] [place] [address] Performed By: #### 5 7021-8 ####[facility] LABCLIA [id number] [address], [facility] [place] Monocytes/100 WBC (Bld) 6.6 % Normal [facility] Comment on above: Order Comment: Speci men Type: BLOOD SPECIMENOrdering Facility: [facility] Address: [address] [place] [address] Performed By: #### 5 7021-8 ####[facility] LABCLIA [id number] [facility] [address] [place] [address] [place] Neutrophils (Bld) [#/Vol] 4.31 10*3/uL Normal 1.45-7.50 [facility] Comment on above: Order Comment: Speci men Type: BLOOD SPECIMENOrdering Facility: [facility] Address: [address] [place] [address] Performed By: #### 5 7021-8 ####[facility] LABCLIA [id number] [facility] [address] [place] [address] [place] Neutrophils/100 WBC (Bld) 66.7 % Normal [facility] Comment on above: Order Comment: Speci men Type: BLOOD SPECIMENOrdering Facility: [facility] Address: [address] [place] [address] Performed By: #### 5 7021-8 ####[facility] LABCLIA [id number] [facility] [place] [address] [place] Nucleated RBC (Bld) [#/Vol] 10*3/uL Normal <0.01 [facility] Comment on above: Order Comment: Speci men Type: BLOOD SPECIMENOrdering Facility: [facility] Address: [address] [place] [address] Performed By: #### 5 7021-8 ####[facility] LABCLIA [id number] [place] [address] [place] Nucleated RBC/100 WBC (Bld) [Ratio] 0.0 /100 WBC Normal [facility] Comment on above: Order Comment: Speci men Type: BLOOD SPECIMENOrdering Facility: [facility] Address: [address] [place] [address] Performed By: #### 5 7021-8 ####[facility] LABIA [id number] [place] [address] [place] Platelet mean volume (Bld) [Entitic vol] 10.4 fL Normal 9.0-12.7 [facility] Comment on above: Order Comment: Speci men Type: BLOOD SPECIMENOrdering Facility: [facility] Address: [address] [place] [address] Performed By: #### 5 7021-8 ####[facility] LABIA [id number] [place] [address] [place] Platelets (Bld) [#/Vol] 300 10*3/uL Normal 150-400 [facility] Comment on above: Order Comment: Speci men Type: BLOOD SPECIMENOrdering Facility: [facility] Address: [address] [place] [address] Performed By: #### 5 7021-8 ####[facility] LABCLIA [id number] [place] [address] [place] RBC (Bld) [#/Vol] 5.46 10*6/uL High 3.90-5.20 [facility] Comment on above: Order Comment: Speci men Type: BLOOD SPECIMENOrdering Facility: [facility] Address: [address] [place] [address] Performed By: #### 5 7021-8 ####[facility] [id number] [place] [address] [place] WBC (Bld) [#/Vol] 6.47 10*3/uL Normal 3.70-11.00 [facility] Comment on above: Order Comment: Speci men Type: BLOOD SPECIMENOrdering Facility: [facility] Address: [address] [place] [address] Performed By: #### 5 7021-8 ####[facility] [id number] [place] [address] [place] CHROMIUM BLOODon 11-30-2024 Chromium (Bld) [Mass/Vol] <0.5 Normal <0.6 [facility] Comment on above: Order Comment: Speci men Type: BLOOD SPECIMENOrdering Facility: [facility] Address: [address] [place] [address] Result Comment: This test was developed, and its performance characteristics determined by the [facility] Department of Pathology and Laboratory Medicine. It has not been cleared or approved by the FDA. The [facility] Department of Pathology and Laboratory Medicine is regulated under CLIA as qualified to perform high-complexity testing. This test is used for clinical purposes. It should not be regarded as investigational or for research. Performed By: #### Yu REYES CHROM ####[facility] [id number] [place] [address] [place] CNOVon 11-30-2024 CNOV Office Visit ([facility] ) -- TIFFANIE [id number]) 1960 F Date Time Provider Department 11/30/24 [...] received the COVID Vaccine? YES. Which vaccine? [employer] COVID-19 Symptom Review Was ill for roughly [...] 1 year to get shingles vaccine. Tolerated 2618-0496 season influenza vaccine. Recent/previously completed testing since [...] at-home BACH cognitive test sent to your [employer] account and return results when prompted. - Have blood and urine drawn for the long COVID panel: Complete blood count (CBC) and metabolic panel (CMP) Thyroid (TSH) Vitamin B12 and folate Vitamin D C-reactive protein (CRP) B-type natriuretic peptide (BNP) D-dimer Ferritin Cartwright-check (f (more content not included)... Normal [facility] COPPER BLOODon 11-30-2024 Copper [Mass/Vol] 107 ug/dL Normal 80-155 [facility] Comment on above: Order Comment: Speci men Type: BLOOD SPECIMENOrdering Facility: [facility] Address: [address] [place] [address] Result Comment: This test was developed, and its performance characteristics determined by the [facility] Department of Pathology and Laboratory Medicine. It has not been cleared or approved by the FDA. The [facility] Department of Pathology and Laboratory Medicine is regulated under CLIA as qualified to perform high-complexity testing. This test is used for clinical purposes. It should not be regarded as investigational or for research. Performed By: #### 5 763-8, COPPER ####[facility] LABCLIA [id number] [place] [address] [place] CRP SerPl-mCncon 11-30-2024 CRP [Mass/Vol] mg/L Normal <0.9 [facility] Comment on above: Order Comment: Speci men Type: BLOOD SPECIMENOrdering Facility: [facility] Address: [address] [place] [address] Performed By: #### 1 988-5, 2284-8, 2132-9 ####[facility] LABCLIA [id number] [place] [address] [place] Comprehensive metabolic 2000 panelon 11-30-2024 Albumin [Mass/Vol] 5.0 g/dL High 3.9-4.9 [facility] Comment on above: Order Comment: Speci men Type: BLOOD SPECIMENOrdering Facility: [facility] Address: [address] [place] [address] Performed By: #### 3 016-3, 37929-3, 82685-7, 6-4 ####[facility] LABCLIA [id number] [place] [address] [place] ALP [Catalytic activity/Vol] 64 U/L Normal 34-123 [facility] Comment on above: Order Comment: Speci men Type: BLOOD SPECIMENOrdering Facility: [facility] Address: [address] [place] [address] Performed By: #### 3 016-3, 16212-8, 22089-9, 6-4 ####[facility] LABCLIA [id number] [place] [address] [place] ALT [Catalytic activity/Vol] 36 U/L Normal 7-38 [facility] Comment on above: Order Comment: Speci men Type: BLOOD SPECIMENOrdering Facility: [facility] Address: [address] [place] [address] Performed By: #### 3 016-3, 93119-3, 04474-1, 2275-4 ####[facility] LABCLIA [id number] [place] [address] [place] Anion gap [Moles/Vol] 15 mmol/L Normal 8-15 [facility] Comment on above: Order Comment: Speci men Type: BLOOD SPECIMENOrdering Facility: [facility] Address: [address] [place] [address] Performed By: #### 3 016-3, 26680-9, 03378-7, 6-4 ####[facility] LABCLIA [id number] [place] [address] [place] AST [Catalytic activity/Vol] 31 U/L Normal 13-35 [facility] Comment on above: Order Comment: Speci men Type: BLOOD SPECIMENOrdering Facility: [facility] Address: [address] [place], [place] [address] Performed By: #### 3 016-3, 44071-2, 93402-9, 6-4 ####[facility] LABCLIA [id number] [address] [address] [place] Bilirubin [Mass/Vol] 1.0 mg/dL Normal 0.2-1.3 [facility] Comment on above: Order Comment: Speci men Type: BLOOD SPECIMENOrdering Facility: [facility] Address: [address] [place] [address] Performed By: #### 3 016-3, 14578-6, 05815-4, 6-4 ####[facility] LABCLIA [id number] [place] [address] [place] Calcium [Mass/Vol] 10.6 mg/dL High 8.5-10.2 [facility] Comment on above: Order Comment: Speci men Type: BLOOD SPECIMENOrdering Facility: [facility] Address: [address] [place] [address] Performed By: #### 3 016-3, 68698-4, 11255-6, 2275-4 ####[facility] LABCLIA [id number] [place] [address] [place] Chloride [Moles/Vol] 101 mmol/L Normal 98-107 [facility] Comment on above: Order Comment: Speci men Type: BLOOD SPECIMENOrdering Facility: [facility] Address: [address] [place], [place] [address] Performed By: #### 3 016-3, 21917-5, 36768-6, 6-4 ####[facility] LABCLIA [id number] [place] [address] [place] CO2 [Moles/Vol] 25 mmol/L Normal 22-30 [facility] Comment on above: Order Comment: Speci men Type: BLOOD SPECIMENOrdering Facility: [facility] Address: [address] [place] [id number] Performed By: #### 3 016-3, 18517-2, 09334-9, 6-4 ####[facility] LABIA [id number] [address] [address] [place] Creatinine [Mass/Vol] 0.73 mg/dL Normal 0.58-0.96 [facility] Comment on above: Order Comment: Speci men Type: BLOOD SPECIMENOrdering Facility: [facility] Address: [address] [place] [address] Performed By: #### 3 016-3, 31791-0, 98128-5, 2275-4 ####[facility] [id number] [place] [address] [place] Creatinine and Glomerular filtration rate.predicted panel (S/P/Bld) 91 mL/min/1.73m??? Normal >=60 [facility] Comment on above: Order Comment: Speci men Type: BLOOD SPECIMENOrdering Facility: [facility] Address: [address] [address] Result Comment: Sophie mated Glomerular Filtration Rate [...] actual GFR. Performed By: #### 3 016-3, 77279-6, 98926-8, 2275-4 ####[facility] LABIA [id number] [address] [address] [place] Glucose [Mass/Vol] 91 mg/dL Normal 74-99 [facility] Comment on above: Order Comment: Speci men Type: BLOOD SPECIMENOrdering Facility: [facility] Address: [address] [place] [address] Result Comment: The [place] Diabetes Association (ADA) provides guidance for cutoff [...] Standards of Medical Care in Diabetes 2016, [place] [employer]. Diabetes Care. 2016.39(Suppl 1). Performed By: #### 3 016-3, 51342-4, 13568-8, 2276-4 ####[facility] LABIA [id number] [place] [address] [place] Potassium [Moles/Vol] 4.1 mmol/L Normal 3.7-5.1 [facility] Comment on above: Order Comment: Kia men Type: BLOOD SPECIMENOrdering Facility: [facility] Address: [address] [place] [address] Performed By: #### 3 016-3, 24245-9, 83639-7, 2275-4 ####[facility] LABIA [id number] [place] [address] [place] Protein [Mass/Vol] 8.1 g/dL High 6.3-8.0 [facility] Comment on above: Order Comment: Sarahi sigifredo Type: BLOOD SPECIMENOrdering Facility: [facility] Address: [address] [place] [address] Performed By: #### 3 016-3, 81963-0, 96247-0, 6-4 ####[facility] LABIA [id number] [place] [address] [place] Sodium [Moles/Vol] 141 mmol/L Normal 136-144 [facility] Comment on above: Order Comment: Sarahi men Type: BLOOD SPECIMENOrdering Facility: [facility] Address: [address] [place] [address] Performed By: #### 3 016-3, 98101-2, 22626-6, 2276-4 ####[facility] [id number] [place] [address] [place] Urea nitrogen [Mass/Vol] 12 mg/dL Normal 7-21 [facility] Comment on above: Order Comment: Speci men Type: BLOOD SPECIMENOrdering Facility: [facility] Address: [address] [place] [address] Performed By: #### 3 016-3, 25021-0, 65033-6, 2276-4 ####[facility] [id number] [address] [place] D dimer FEU PPP-mCncon 11-30 Fibrin D-dimer FEU (PPP) [Mass/Vol] <190 Normal <500 [facility] Comment on above: Order Comment: Speci men Type: BLOOD SPECIMENOrdering Facility: [facility] Address: [address] [place] [address] Result Comment: Froz en Plasma Aliquot Performed By: #### 4 8065-7 ####[facility] [id number] [place] [address] [place] D-DIMEROrdered By: Jatin Valdes on 11-30-2024 Fibrin D-dimer FEU (PPP) [Mass/Vol] NINF [facility] Comment on above: Frozen Plasma Aliquo t NOL79nd 11-30-2024 ECG01 Ventricular Rate : 7 8 BPM Atrial Rate : 78 BPM P-R Interval : 142 ms QRS Duration : 70 ms Q-T Interval : 358 ms QTC Calculation(Bazett) : 408 ms Calculated P [place] : 40 degrees Calculated R [place] : -2 degrees Calculated T [place] : 10 degrees NORMAL SINUS RHYTHM LOW VOLTAGE QRS, CONSIDER PULMONARY DISEASE, PERICARDIAL EFFUSION, OR NORMAL VARIANT BORDERLINE ECG NO PREVIOUS ECGS AVAILABLE Confirmed by NAMAN OROPEZA MD ([id number]) on 12/12/2024 3:19:04 PM Also confirmed by NAMAN OROPEZA MD ([id number]) on 12/12/2024 3:20:01 PM NAME : TIFFANIE RAMSEY PID : [id number] : 1960 Gender : Female Race : ORD : Procedure Date : Nov 30 2024 11:03:15 Edit Date : Dec 12 2024 15:26:56 Diagnosis: NORMAL SINUS RHYTHM LOW VOLTAGE QRS, CONSIDER PULMONARY DISEASE, PERICARDIAL EFFUSION, OR NORMAL VARIANT BORDERLINE ECG NO PREVIOUS ECGS AVAILABLE Confirmed by NAMAN OROPEZA MD ([id number]) on 12/12/2024 3:19:04 PM Also confirmed by NAMAN OROPEZA MD ([id number]) on 12/12/2024 3:20:01 PM Test Reason : Location : 672 : [facility] Overread By : NAMAN OROPEZA MD Edited By : NAMAN OROPEZA MD Referred By : TAQUERIA VIEIRA Acquired by : [id number], Normal [facility] Ferritin SerPl-mCncon 2024 Ferritin [Mass/Vol] 148.0 ng/mL Normal 14.7-205.1 [facility] Comment on above: Order Comment: Speci men Type: BLOOD SPECIMENOrdering Facility: [facility] Address: [address] [place] [address] Performed By: #### 3 016-3, 51571-6, 79524-3, 2276-4 ####[facility] LABCLIA [id number] [place] [address] [place] Fibrin D-dimer FEU (PPP) [Ma ss/Vol]Ordered By: Jatin Haji on 11-30-2024 D Dimer Age-related Cutoff 660 ng/mL FEU [facility] 500 ng/mL FEU is the D [...] et al. Leigh Int Med 2016 165:253. [facility] Fibrin D-dimer FEU (PPP) [Ma ss/Vol]on 11-30-2024 D DIMER AGE-RELATED CUTOFF 660 ng/mL FEU Normal [facility] Comment on above: Order Comment: Speci men Type: BLOOD SPECIMENOrdering Facility: [facility] Address: [address] [place] [address] Performed By: #### 4 8065-7 ####[facility] LABIA [id number] [place] [address] [place] Folate SerPl-mCncon 12-01-19 25 Folate [Mass/Vol] 16.8 ng/mL Normal >4.7 [facility] Comment on above: Order Comment: Speci men Type: BLOOD SPECIMENOrdering Facility: [facility] Address: [address] [place] [address] Performed By: #### 1 988-5, 2284-8, 2132-9 ####[facility] [id number] [place] [address] [place] MANGANESE BLDon 11-30-2024 Manganese (Bld) [Mass/Vol] 6.0 ug/L Normal 4.4-15.2 [facility] Comment on above: Order Comment: Speci sigifredo Type: BLOOD SPECIMENOrdering Facility: [facility] Address: [address] [place] [address] Result Comment: This test was developed, and its performance characteristics determined by the [facility] Department of Pathology and Laboratory Medicine. It has not been cleared or approved by the FDA. The [facility] Department of Pathology and Laboratory Medicine is regulated under CLIA as qualified to perform high-complexity testing. This test is used for clinical purposes. It should not be regarded as investigational or for research. Performed By: #### M AMY, CHROM ####[facility] LABCLIA [id number] [place] [id number] [place] NT-proBNP [facility] 11-30 Natriuretic peptide.B prohormone N-Terminal [Mass/Vol] <36 Normal <125 [facility] Comment on above: Order Comment: Speci men Type: BLOOD SPECIMENOrdering Facility: [facility] Address: [address] [place] [address] Performed By: #### 3 016-3, 20006-4, 48623-0, 2276-4 ####[facility] LABCLIA [id number] [address] OF [facility] OMEGACHECKon 11-30-2024 ARACHIDONIC ACID 12.6 % by wt Normal 8.6-15.6 [facility] Comment on above: Order Comment: Speci men Type: BLOOD SPECIMENOrdering Facility: [facility] Address: [address] [place] [address] Performed By: #### O MEGAC ####[facility] [id number] [address] [place], [place] [id number] ARACHIDONIC ACID/EPA RATIO 35.5 Normal 3.7-40.7 [facility] Comment on above: Order Comment: Speci men Type: BLOOD SPECIMENOrdering Facility: [facility] Address: [address] [place] [address] Result Comment: Rece ived Date: Performed By: #### O MEGAC ####[facility] [id number] [address] [id number] DHA 1.9 % by wt Normal 1.4-5.1 [facility] Comment on above: Order Comment: Speci men Type: BLOOD SPECIMENOrdering Facility: [facility] Address: [address] [place] [address] Performed By: #### O MEGAC ####[facility] [id number] [address] [place] [address] DPA 1.0 % by wt Normal 0.8-1.8 [facility] Comment on above: Order Comment: Speci men Type: BLOOD SPECIMENOrdering Facility: [facility] Address: [address] [place], [place] [address] Performed By: #### O MEGAC ####[facility] [id number] [address] [place] [address] EPA 0.4 % by wt Normal 0.2-2.3 [facility] Comment on above: Order Comment: Speci men Type: BLOOD SPECIMENOrdering Facility: [facility] Address: [address] [place] [address] Performed By: #### O MEGAC ####[facility] [id number] [address] [place] [address] LINOLEIC ACID 27.4 % by wt Normal 18.6-29.5 [facility] Comment on above: Order Comment: Speci men Type: BLOOD SPECIMENOrdering Facility: [facility] Address: [address] [place] [address] Performed By: #### O MEGAC ####[facility] [id number] [address] [place] [address] OMEGA-3 TOTAL 3.2 % by wt Normal [facility] Comment on above: Order Comment: Speci men Type: BLOOD SPECIMENOrdering Facility: [facility] Address: [address] [place] [address] Performed By: #### O MEGAC ####[facility] [id number] [address] [place] [address] OMEGA-6 TOTAL 43.6 % by wt Normal [facility] Comment on above: Order Comment: Speci men Type: BLOOD SPECIMENOrdering Facility: [facility] Address: [address] [place], [place] [address] Result Comment: [facility] measures a number of omega-6 fatty acids with AA and LA being the two most abundant forms reported. Performed By: #### O MEGAC ####[facility] [id number] [address] [address] OMEGA-6/OMEGA-3 RATIO 13.5 Normal 3.7-14.4 [facility] Comment on above: Order Comment: Speci men Type: BLOOD SPECIMENOrdering Facility: [facility] Address: [address] [place] [address] Performed By: #### O MEGAC ####[facility] [id number] [place] [id number] OMEGACHECK 3.2 % by wt Low >5.4 [facility] Comment on above: Order Comment: Speci men Type: BLOOD SPECIMENOrdering Facility: [facility] Address: [address] [place] [address] Result Comment: Incr easing blood levels of long-chain n-3 fatty acids are associated with a lower risk of sudden cardiac (1). Based on the top (75th percentile) and bottom (25th percentile) quartiles of the [facility] reference population, the following relative risk [...] to 3 weeks. (Reference: 1-Willie luis al. [facility]. 2002; 346: 8929-1152).This test was developed and its analytical performance characteristics have been determined by [facility]. It has not been cleared or approved by the U.S. Food and Drug Administration. This assay has been validated pursuant to the CLIA regulations and is used for clinical purposes. Performed By: #### O MEGAC ####[facility] [id number] [place] [address] TSH SerPl-aCncon 11-30-2024 TSH Qn 0.919 m[IU]/L Normal 0.270-4.200 [facility] Comment on above: Order Comment: Speci men Type: BLOOD SPECIMENOrdering Facility: [facility] Address: [address] [place] [address] Performed By: #### 3 016-3, 22737-0, 39499-6, 2276-4 ####[facility] LABCLIA [id number] [place] [address] [place] Urinalysis complete panel (U )on 11-30-2024 Bacteria LM.HPF (Urine sed) [#/Area] Negative Negative /HPF [facility] Bilirubin Ql (U) Negative Negative [facility] Clarity (Unsp spec) Clear Clear [facility] Color (U) Yellow Yellow [facility] Epithelial cells LM.HPF (Urine sed) [#/Area] None Seen /HPF [facility] Glucose Test strip (U) [Mass/Vol] Negative Negative [facility] Hemoglobin Ql (U) Negative Negative [facility] Hyaline casts (Urine sed) [#/Area] 1-3 /LPF Abnormal 0 /LPF [facility] Interpretation and review of laboratory results Abnormal [facility] Ketones Ql (U) Negative Negative [facility] Leukocyte esterase Test strip Ql (U) Negative Negative [facility] Nitrite Ql (U) Negative Negative [facility] pH (U) 6.5 [pH] NINF - 8.5 [facility] Protein (U) [Mass/Vol] Negative Negative [facility] RBC LM.HPF (Urine sed) [#/Area] 0-2 /HPF 0-2 /HPF [facility] Specific gravity (U) [Rel density] 1.014 1.005 - 1.030 [facility] Urobilinogen Ql (U) 0.2 EU/dL 0.2-1.0 EU/dL [facility] WBC LM.HPF (Urine sed) [#/Area] 0-5 /HPF 0-5 /HPF [facility] This test was develo ped and its performance characteristics determined by [facility]'s [facility] Pathology [facility] Laboratory [facility] [place] ([facility]). It has not been cleared or approved by the FDA. [facility] is regulated under CLIA as qualified to perform high-complexity testing. This test is used for clinical purposes. It should not be regarded as investigational or for research. [facility] Bacteria LM.HPF (Urine sed) [#/Area] Negative Normal Negative [facility] Comment on above: Order Comment: Speci men Type: URINE SPECIMEN [facility] Address: [address] [place] [address] Performed By: #### 2 4356-8 #### [facility] LAB CLIA [id number] [address] [place] [address] [place] Bilirubin Ql (U) Negative Normal Negative [facility] Comment on above: Order Comment: Speci men Type: URINE SPECIMEN [facility] Address: [address] [place] [address] Performed By: #### 2 4356-8 #### [facility] LAB CLIA [id number] [address] [place] [address] [place] Clarity (Unsp spec) Clear Normal Clear [facility] Comment on above: Order Comment: Speci men Type: URINE SPECIMEN [facility] Address: [address] [place] [address] Performed By: #### 2 4356-8 #### [facility] LAB CLIA [id number] [address] [place] [address] [place] Color (U) Yellow Normal Yellow [facility] Comment on above: Order Comment: Speci men Type: URINE SPECIMEN [facility] Address: [address] [place] [address] Performed By: #### 2 4356-8 #### [facility] LAB CLIA [id number] [address] [place] [address] [place] Epithelial cells LM.HPF (Urine sed) [#/Area] None Seen Normal [facility] Comment on above: Order Comment: Speci men Type: URINE SPECIMEN [facility] Address: [address] [place] [address] Performed By: #### 2 4356-8 #### [facility] CLIA [id number] [address] [place] [address] [place] Glucose Test strip (U) [Mass/Vol] Negative Normal Negative [facility] Comment on above: Order Comment: Speci men Type: URINE SPECIMEN [facility] Address: [address] [place] [address] Performed By: #### 2 4356-8 #### [facility] LAB CLIA [id number] [address] [place] [address] [place] Hemoglobin Ql (U) Negative Normal Negative [facility] Comment on above: Order Comment: Speci men Type: URINE SPECIMEN [facility] Address: [address] [place] [address] Performed By: #### 2 4356-8 #### [facility] LAB CLIA [id number] [address] [place] [address] [place] Hyaline casts (Urine sed) [#/Area] 1-3 /LPF Abnormal 0 /LPF [facility] Comment on above: Order Comment: Speci men Type: URINE SPECIMEN [facility] Address: [address] [place] [address] Performed By: #### 2 4356-8 #### [facility] CLIA [id number] [address] [place] [address] [place] Ketones Ql (U) Negative Normal Negative [facility] Comment on above: Order Comment: Speci men Type: URINE SPECIMEN [facility] Address: [address] [place] [address] Performed By: #### 2 4356-8 #### [facility] CLIA [id number] [address] [place] [address] [place] Leukocyte esterase Test strip Ql (U) Negative Normal Negative [facility] Comment on above: Order Comment: Speci men Type: URINE SPECIMEN [facility] Address: [address] [place] [address] Performed By: #### 2 4356-8 #### [facility] CLIA [id number] [address] [place] [address] [place] Nitrite Ql (U) Negative Normal Negative [facility] Comment on above: Order Comment: Speci men Type: URINE SPECIMEN [facility] Address: [address] [place] [address] Performed By: #### 2 4356-8 #### [facility] LAB CLIA [id number] [address] [place] [address] [place] pH (U) 6.5 [pH] Normal <8.5 [facility] Comment on above: Order Comment: Speci men Type: URINE SPECIMEN [facility] Address: [address] [place] [address] Performed By: #### 2 4356-8 #### [facility] CLIA [id number] [address] [place] [address] [place] Protein (U) [Mass/Vol] Negative Normal Negative [facility] Comment on above: Order Comment: Speci men Type: URINE SPECIMEN [facility] Address: [address] [place] [address] Performed By: #### 2 4356-8 #### [facility] CLIA [id number] [address] [place] [address] [place] RBC LM.HPF (Urine sed) [#/Area] 0-2 /HPF Normal 0-2 /HPF [facility] Comment on above: Order Comment: Speci men Type: URINE SPECIMEN [facility] Address: [address] [place] [address] Performed By: #### 2 4356-8 #### [facility] CLIA [id number] [address] [place] [address] [place] Specific gravity (U) [Rel density] 1.014 Normal 1.005-1.030 [facility] Comment on above: Order Comment: Speci men Type: URINE SPECIMEN [facility] Address: [address] [place] [address] Performed By: #### 2 4356-8 #### [facility] CLIA [id number] [address] [place] [address] [place] Urobilinogen Ql (U) 0.2 EU/dL Normal 0.2-1.0 EU/dL [facility] Comment on above: Order Comment: Speci men Type: URINE SPECIMEN [facility] Address: [address] [place] [address] Performed By: #### 2 4356-8 #### [facility] CLIA [id number] [address] [place] [address] [place] WBC LM.HPF (Urine sed) [#/Area] 0-5 /HPF Normal 0-5 /HPF [facility] Comment on above: Order Comment: Speci men Type: URINE SPECIMEN [facility] Address: [address] [place] [address] Performed By: #### 2 4356-8 #### [facility] CLIA [id number] [address] [place] [address] [place] Vit B12 SerPl-mCncon 03-2 025 Cobalamin (Vitamin B12) [Mass/Vol] 713 pg/mL Normal 232-1245 [facility] Comment on above: Order Comment: Speci men Type: BLOOD SPECIMENOrdering Facility: [facility] Address: [address] [place] [address] Performed By: #### 1 988-5, 2284-8, 2132-9 ####[facility] LABIZABEL [id number] [place] [id number] [place] [facility] XR CHEST 2V FRONTAL/LATon XR CHEST 2V [...] tissues: Unremarkable. IMPRESSION: No acute radiographic abnormality. Sciences Dean: PSCB Transcribe Date/Time: Nov 30 2024 7:46P Dictated by : DALE GOODWIN MD This examination was interpreted and the report reviewed and electronically signed by: DALE GOODWIN MD on Nov 30 2024 7:46PM EST [id number] Normal [facility] XR Chest PA and Lateralon IMPRESSION: No acute radiographic abnormality. Sciences Dean: PSCB Transcribe Date/Time: Nov 30 2024 7:46P [...] Unremarkable. IMPRESSION IMPRESSION: No acute radiographic abnormality. Sciences Dean: PSCB Transcribe Date/Time: Nov 30 2024 7:46P Dictated by : DALE GOODWIN MD This examination was interpreted and the report reviewed and electronically signed by: DALE GOODWIN MD on Nov 30 2024 7:46PM EST [facility] Radiology Study observation (narrative) [facility] XR Chest PA and LateralOrder ed By: Cc Provider on 11-30-2024 [facility] Zinc SerPl-mCncon 11-30-2024 Zinc [Mass/Vol] 80 ug/dL Normal 60-120 [facility] Comment on above: Order Comment: Speci men Type: BLOOD SPECIMENOrdering Facility: [facility] Address: [address] [place] [address] Result Comment: This test was developed, and its performance characteristics determined by the [facility] Department of Pathology and Laboratory Medicine. It has not been cleared or approved by the FDA. The [facility] Department of Pathology and Laboratory Medicine is regulated under CLIA as qualified to perform high-complexity testing. This test is used for clinical purposes. It should not be regarded as investigational or for research. Performed By: #### 5 763-8, COPPER ####[facility] LABCLIA [id number] [facility] [address] STATES OF [facility] Joe 11-07-2024 CNPN Telephone ([employer] [facility] [facility] [employer] -- TIFFANIE RAMSEY ([id number]) 1960 F Date Time Provider Department 11/07/24 TAQUERIA VIEIRA [facility] During your visit today, we recorded the [...] Fully Assessed Reason for Visit: Patient Question [3167] Prescriptions as of 11/07/2024 - ergocalciferol 50,000 [...] Status:Closed by GLENNY MERCADO on 11/07/24 Normal [facility] Gastroenterology Visit Repor ton 10-05-2024 Gastroenterology Visit Report [facility] [address] 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 [facility] Medical History Left shoulder pain Surgical History Hx of cataract extraction History of ear surgery Social History Smoking Status: Never smoker alcohol intake: former HPI HPI Details: TIFFANIE RAMSEY, is a 64 F who presents to the office today for establishment with [facility] for concerns regarding LUQ abdominal [...] body habitus Orientation: alert and oriented x3 HENIL Head: normal to inspection Ears: hearing grossly normal bilaterally Nose: external nose normal Face and sinus: normal facial exam and face symmetric Mouth: oral mucosae normal Eyes General: appearance no (more content not included)... Normal [facility] 25(OH)D3 [facility] 2024 25-hydroxyvitamin D3 [Mass/Vol] 25.5 ng/mL Low 31.0-80.0 [facility] Comment on above: Order Comment: Speci men Type: BLOOD SPECIMENOrdering Facility: [facility] Address: [address] [place] [address] [place], [place] [id number] Performed By: #### 1 989-3 ####[facility] LUZ MARIA [id number] JANESSA COLEMAN [place] [id number] [facility] Joe 09-11-2024 CNPN Telephone ([facility]) -- TIFFANIE RAMSEY ([id number]) 1960 F Date Time Provider Department 09/11/24 [...] to: self Call patient at: at home [phone] (home) [phone] (cell) Payor: MEDICARE / Plan: MEDICARE A [...] Encounter Status:Closed by MAIRA NEVILLE on 09/13/24 [facility] TIFFAN[facility] RAMSEY ([id number]) 1960 F Date Time Provider Department 09/11/24 [facility]IR[facility] During your visit today, we recorded the following information about you: Rosalind Bergeron RN 09/11/2024 11:57 AM Signed Consult 05/20/23 with Yumiko Contreras APRN.COLLATERAL SPECIALIST Follow up: scheduled with Dr. Vieira 10/19/24 Call transferred to [facility] nurse, pt returning call to make appointment with [facility]. I started to assist to schedule her, but reviewed chart and she had been seen in [facility] in 2022 for one visit. 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 I reviewed with patient that [facility] is not intended place to be [...] Assessed Reason for Visit: Appointment [186] Cmt: [facility] follow up Prescriptions as of 09/11/2024 [...] Encounter Status:Closed by ROSALIND BERGERON on 09/11/24 [facility] CNOVon 09-08-2024 CNOV Office Visit (AMDERM ) -- TIFFANIE RAMSEY ([id number]) 1960 F Date Time Provider Department 09/08/24 10:45 AM OZZIE LOUIS AMDERM During your visit today, we recorded the following information about you: Ozzie Louis MD 09/08/2024 11:19 AM Signed CC: Patient [...] Past Histories independently gathered by the clinical system support specialist and the remaining scribed note accurately describes my personal service to and examination of the patient. Ozzie Ynaes MD, MD 09/20/2024 5:12 PM Signed Addended [...] Order(s):VITAMIN D 25 HYDROXY [SQVITD] Order #: [id number] FUTURE fluocinonide (LIDEX) 0.05 % external solutionApply [...] [M75.82] 07/13/2023 (more content not included)... Normal [facility] Orthopedic Visit Reporton Orthopedic Visit Report [facility] [address] [place] [address] OFFICE VISIT Date of Service: 08/31/24 MR#: [id number] Acct: [id number] Name: TIFFANIE RAMSEY Rep #: [id number] : 1960 Provider: Dr. Shan rich MD Age/Sex: 64/F Location[facility] Status: Signed with Addenda ADDENDUM by THANIA [...] Performing Provider: Shan Bolaños MD Performing Location: [facility] Administered by: Shan Bolaños MD on 08/31/24 11:23 Dose Route Admin Location Dispensed Lot Number Expiration Date NDC Man ufacturer 40 mg intra-articular Left shoulder 1 mL [id number] 09/28/25 9777-9871-41 BM [facility] Date cc: * Signed [...] PO 08/31/24 08/31/24 History cell-Bifido 25 billion nzjq-LET-teifr capsule fluticasone propionate 50 1 spray intranasal [...] that that seems to aggravate the shoulders. Lwmsy-jjak-nqmodzja little soreness on both the shoulders but the left side is definitely worse and there is some catching there. Supplemental Info X-rays 4 views left shoulder demonstrate no acute abnormalities. Moderate AC joint arthrosis glenohumeral joint space well-maintained. Small cyst formation of the greater tuberosity. Coding Level of Care Code Attention Deonna Diagnoses Left shoulder pain M25.512 Comment 35837 and cpt inject major joint Assessment and Plan Assessment and Plan (1) Left shoulder pain: Status: Acute Plan: TIFFANIE RAMSEY is a 64 year old [...] to thoroughly dry over 3 minutes. Used 24/7 Card (more content not included)... Normal [facility] Shoulder min 2 Viewson 08-31 Shoulder min 2 Views [facility] [facility] [address] [place] [address] [id number] Shoulder min 2 Views MR#: [id number] Acct: [id number] Name: TIFFANIE RAMSEY Rep #: [id number] : 1960 F 64 From: Km Hoover MD PCP: Dr. Bello Davenport MD Status: DEP AMB Study: Shoulder min 2 Views Date of Exam: 08/31/24 Exam# [id number] Ordering Dr: Shan Bolaños MD PROCEDURE: SHOULDER MIN 2 VIEWS 08/31/2024 REASON FOR EXAM: PAIN, NO INJURY TECHNIQUE: Four views left shoulder COMPARISON: None available FINDINGS: No fracture or dislocation. The joint spaces appear within limits. Visualized left lung appears clear. RAD/Shoulder min 2 Views IMPRESSION: No fracture or dislocation. Reading Location: [id number] CC: Dr. Shan Bolaños MD; Dr. Bello Davenport MD Sciences Dean: Signed Normal [facility] Absolute neutrophil countOrd ered By: Bello Davenport on 08-11-2024 Neutrophils (Bld) [#/Vol] 3.7 10*3/uL 2.0-7.7 [facility] Anion gap in Serum or Plasma Ordered By: Bello Issac on 08-11-2024 Anion gap [Moles/Vol] 10 mmol/L 5-15 [facility] BUN/creatinine ratioOrdered By: Bello Davenport on 08-11-2024 Urea nitrogen/Creatinine [Mass ratio] 20.0 mg/mg 10-20 [facility] Basophil percentageOrdered B y: Bello Issac on 08-11-2024 Basophils/100 WBC (Bld) 1.4 % High 0-1 [facility] Bilirubin, totalOrdered By: Bello Davenport on 08-11-2024 Bilirubin [Mass/Vol] 0.74 mg/dL 0.00-1.30 [facility] CBC W/Diff, Automatedon 07-29 Absolute Lymph 1.17 X10 3/uL Normal 0.83-4.51 [facility] Comment on above: Performed By: #### L 506.1001, L500.4050, L501.9520, L100.0100 ####[facility] [address] [place], [address] Absolute Neut 3.7 X10 3/uL Normal 2.0-7.7 [facility] Comment on above: Performed By: #### L 506.1001, L500.4050, L501.9520, L100.0100 ####[facility] [address] [place], [address] Basophils/100 WBC (Bld) 1.4 % High 0-1 [facility] Comment on above: Performed By: #### L 506.1001, L500.4050, L501.9520, L100.0100 ####[facility] [address] [place], [address] Eosinophils/100 WBC (Bld) 3.3 % Normal 0-5 [facility] Comment on above: Performed By: #### L 506.1001, L500.4050, L501.9520, L100.0100 ####[facility] [address] [place], [address] Erythrocyte distribution width (RBC) [Ratio] 13.8 % Normal 11.6-14.6 [facility] Comment on above: Performed By: #### L 506.1001, L500.4050, L501.9520, L100.0100 ####[facility] [address] [place], [address] Hematocrit (Bld) [Volume fraction] 43.9 % Normal 37-47 [facility] Comment on above: Performed By: #### L 506.1001, L500.4050, L501.9520, L100.0100 ####[facility] [address] [place], [address] Hemoglobin (Bld) [Mass/Vol] 14.7 g/dL Normal 12.0-15.0 [facility] Comment on above: Performed By: #### L 506.1001, L500.4050, L501.9520, L100.0100 ####[facility] [address] [place], [address] IG% 0.500 Normal 0.0-0.9 [facility] Comment on above: Result Comment: IG% - Immature Granulocytes (promyelocytes, myelocytes and metamyelocytes) > 1% indicates that a LEFT SHIFT is Present. Performed By: #### L 506.1001, L500.4050, L501.9520, L100.0100 ####[facility] [address] [place], [address] Lymphocytes/100 WBC (Bld) 20.5 % Normal 19-41 [facility] Comment on above: Performed By: #### L 506.1001, L500.4050, L501.9520, L100.0100 ####[facility] [address] [place], [address] MCH (RBC) [Entitic mass] 29.0 pg Normal 27.0-32.0 [facility] Comment on above: Performed By: #### L 506.1001, L500.4050, L501.9520, L100.0100 ####[facility] [address] [place], [address] MCHC (RBC) [Mass/Vol] 33.5 g/dL Normal 32-36 [facility] Comment on above: Performed By: #### L 506.1001, L500.4050, L501.9520, L100.0100 ####[facility] [address] [place], [address] MCV (RBC) [Entitic vol] 86.6 fL Normal 81-99 [facility] Comment on above: Performed By: #### L 506.1001, L500.4050, L501.9520, L100.0100 ####[facility] [address] [place], [address] Monocytes/100 WBC (Bld) 9.1 % Normal 0-10 [facility] Comment on above: Performed By: #### L 506.1001, L500.4050, L501.9520, L100.0100 ####[facility] [address] [place], [address] Neutrophils/100 WBC (Bld) 65.2 % Normal 47-70 [facility] Comment on above: Performed By: #### L 506.1001, L500.4050, L501.9520, L100.0100 ####[facility] [address] [place], [address] Nucleated RBC (Bld) [#/Vol] 0 10*3/uL Normal 0-5 [facility] Comment on above: Performed By: #### L 506.1001, L500.4050, L501.9520, L100.0100 ####[facility] [address] [place], [address] Platelet mean volume (Bld) [Entitic vol] 9.5 fL Normal 6.2-12.0 [facility] Comment on above: Performed By: #### L 506.1001, L500.4050, L501.9520, L100.0100 ####[facility] [address] [place], [address] Platelets (Bld) [#/Vol] 296 10*3/uL Normal 150-450 [facility] Comment on above: Performed By: #### L 506.1001, L500.4050, L501.9520, L100.0100 ####[facility] [address] [place], [address] RBC (Bld) [#/Vol] 5.07 10*6/uL Normal 4.2-5.4 [facility] Comment on above: Performed By: #### L 506.1001, L500.4050, L501.9520, L100.0100 ####[facility] [address] [place], [address] RDW SD 43.9 fl Normal 35.1-43.9 [facility] Comment on above: Performed By: #### L 506.1001, L500.4050, L501.9520, L100.0100 ####[facility] [address] [place], [address] WBC (Bld) [#/Vol] 5.7 10*3/uL Normal 4.4-11.0 [facility] Comment on above: Performed By: #### L 506.1001, L500.4050, L501.9520, L100.0100 ####[facility] [address] [place], [address] Carbon dioxide, total [Moles /volume] in Central venous bloodOrdered By: Bello Davenport on 08-11-2024 CO2 [Moles/Vol] 25.9 mmol/L 21.0-32.0 [facility] Chloride assayOrdered By: Johnathan Davenport on 08-11-2024 Chloride [Moles/Vol] 104 mmol/L 98-108 [facility] Comprehensive Metabolic Prof ilon 08-11-2024 Albumin [Mass/Vol] 4.3 g/dL Normal 3.4-4.8 [facility] Comment on above: Performed By: #### L 506.1001, L500.4050, L501.9520, L100.0100 ####[facility] [address] [place], [address] Albumin/Globulin [Mass ratio] 1.4 {ratio} Normal 0.9-2.4 [facility] Comment on above: Performed By: #### L 506.1001, L500.4050, L501.9520, L100.0100 ####[facility] [address] [place], [address] ALK PHOS 62 U/L Normal 35-104 [facility] Comment on above: Performed By: #### L 506.1001, L500.4050, L501.9520, L100.0100 ####[facility] [address] [place], [address] ALT [Catalytic activity/Vol] 19 U/L Normal <=34 [facility] Comment on above: Performed By: #### L 506.1001, L500.4050, L501.9520, L100.0100 ####[facility] [address] [place], [address] AST [Catalytic activity/Vol] 22 U/L Normal <=31 [facility] Comment on above: Performed By: #### L 506.1001, L500.4050, L501.9520, L100.0100 ####[facility] [address] [place], [address] Bilirubin [Mass/Vol] 0.74 mg/dL Normal 0.00-1.30 [facility] Comment on above: Performed By: #### L 506.1001, L500.4050, L501.9520, L100.0100 ####[facility] [address] [place], [address] BUN/CRE 20.0 RATIO Normal 10-20 [facility] Comment on above: Performed By: #### L 506.1001, L500.4050, L501.9520, L100.0100 ####[facility] [address] [place], [address] Calcium [Mass/Vol] 9.9 mg/dL Normal 7.6-11.0 [facility] Comment on above: Performed By: #### L 506.1001, L500.4050, L501.9520, L100.0100 ####[facility] [address] [place], [address] Chloride [Moles/Vol] 104 mmol/L Normal 98-108 [facility] Comment on above: Performed By: #### L 506.1001, L500.4050, L501.9520, L100.0100 ####[facility] [address] [place], [address] CO2 [Moles/Vol] 25.9 mmol/L Normal 21.0-32.0 [facility] Comment on above: Performed By: #### L 506.1001, L500.4050, L501.9520, L100.0100 ####[facility] [address] [place], [address] Creatinine [Mass/Vol] 0.75 mg/dL Normal 0.70-1.20 [facility] Comment on above: Performed By: #### L 506.1001, L500.4050, L501.9520, L100.0100 ####[facility] [address] [place], [address] GAP 10 Normal 5-15 [facility] Comment on above: Performed By: #### L 506.1001, L500.4050, L501.9520, L100.0100 ####[facility] [address] [place], [address] GFR/1.73 sq M.predicted among non-blacks MDRD (S/P/Bld) [Vol rate/Area] 88 mL/min/{1.73_m2} Normal >60 [facility] Comment on above: Result Comment: mL/m in/1.73m2 CKD-EPI Creatinine Equation (2020) Performed By: #### L 506.1001, L500.4050, L501.9520, L100.0100 ####[facility] [address] [place], [address] Globulin (S) [Mass/Vol] 3.1 g/dL Normal 2.2-4.2 [facility] Comment on above: Performed By: #### L 506.1001, L500.4050, L501.9520, L100.0100 ####[facility] [address] [place], [address] Glucose [Mass/Vol] 88 mg/dL Normal 70-99 [facility] Comment on above: Performed By: #### L 506.1001, L500.4050, L501.9520, L100.0100 ####[facility] [address] [place], [address] Potassium [Moles/Vol] 4.4 mmol/L Normal 3.3-5.1 [facility] Comment on above: Performed By: #### L 506.1001, L500.4050, L501.9520, L100.0100 ####[facility] [address] [place], [address] Sodium [Moles/Vol] 140 mmol/L Normal 133-145 [facility] Comment on above: Performed By: #### L 506.1001, L500.4050, L501.9520, L100.0100 ####[facility] [address] [place], [address] T PROT 7.5 g/dL Normal 5.9-8.4 [facility] Comment on above: Performed By: #### L 506.1001, L500.4050, L501.9520, L100.0100 ####[facility] [address] [place], [address] Urea nitrogen [Mass/Vol] 15 mg/dL Normal 4-19 [facility] Comment on above: Performed By: #### L 506.1001, L500.4050, L501.9520, L100.0100 ####[facility] [address] [place], [address] Eosinophil percentageOrdered By: Bello Davenport on 08-11-2024 Eosinophils/100 WBC (Bld) 3.3 % 0-5 [facility] Erythrocyte distribution wid th ratioOrdered By: Bello Davenport on 08-11-2024 Erythrocyte distribution width (RBC) [Ratio] 13.8 % 11.6-14.6 [facility] Erythrocyte distribution wid th standard deviationOrdered By: Bello Davenport on 08-11-2024 Erythrocyte distribution width (RBC) [Entitic vol] 43.9 fL 35.1-43.9 [facility] GFR/1.73 sq M.predicted lloyd g non-blacks MDRD (S/P/Bld) [Vol rate/Area]Ordered By: Bello Davenport on 08-11-2024 Estimated GFR (MDRD) Non-Af Amer 88 >60 [facility] Comment on above: mL/min/1.73m2 CKD-EP I Creatinine Equation (2020) Hematocrit Auto (Bld) [Volum e fraction]Ordered By: Bello Davenport on 08-11-2024 Hematocrit (Bld) [Volume fraction] 43.9 % 37-47 [facility] Hemoglobin measurementOrdere d By: Bello Davenport on 08-11-2024 Hemoglobin (Bld) [Mass/Vol] 14.7 g/dL 12.0-15.0 [facility] Immature granulocytes/100 WB C Auto (Bld)Ordered By: Bello Davenport on 08-11-2024 Immature granulocytes/100 WBC (Bld) 0.500 % 0.0-0.9 [facility] Comment on above: IG% - Immature Granu locytes (promyelocytes, myelocytes and metamyelocytes) > 1% indicates that a LEFT SHIFT is Present. L506.1001on 08-11-2024 Vitamin D 25-OH 23.7 ng/mL Low 30-100 [facility] Comment on above: Result Comment: Jennifer min D Status Deficiency: <20 ng/mL (50nmol/L) Insufficiency: 20-30 ng/mL (50-75 nmol/L) Sufficiency: 30-100 ng/mL (75-250 nmol/L) Toxicity: >100 ng/mL (>250 nmol/L) Performed By: #### L 506.1001, L500.4050, L501.9520, L100.0100 ####[facility] [address] [place], [place], [address] Laboratory - Chemistry and C hemistry - challengeOrdered By: Bello Davenport on 08-11-2024 AST [Catalytic activity/Vol] 22 U/L <32 [facility] Lymphocytes Auto (Unsp spec) [#/Vol]Ordered By: Bello Davenport on 08-11-2024 Lymphocytes (Bld) [#/Vol] 1.17 10*3/uL 0.83-4.51 [facility] Lymphocytes/100 WBC Auto (Un sp spec)Ordered By: Bello Davenport on 08-11-2024 Lymphocytes/100 WBC (Bld) 20.5 % 19-41 [facility] MCV (mean corpuscular volume ) determinationOrdered By: Bello Davenport on 08-11-2024 MCV (RBC) [Entitic vol] 86.6 fL 81-99 [facility] Mean corpuscular hemoglobin (MCH) determinationOrdered By: Bello Davenport on 08-11-2024 MCH (RBC) [Entitic mass] 29.0 pg 27.0-32.0 [facility] Mean corpuscular hemoglobin concentration (MCHC) determinationOrdered By: Bello Davenport on 08-11-2024 MCHC (RBC) [Mass/Vol] 33.5 g/dL 32-36 [facility] Mean platelet volume determi nationOrdered By: Bello Davenport on 08-11-2024 Platelet mean volume (Bld) [Entitic vol] 9.5 fL 6.2-12.0 [facility] Monocyte percentageOrdered B y: Bello Davenport on 08-11-2024 Monocytes/100 WBC (Bld) 9.1 % 0-10 [facility] Neutrophil percentageOrdered By: Bello Davenport on 08-11-2024 Neutrophils/100 WBC (Bld) 65.2 % 47-70 [facility] Nucleated red blood cell per centageOrdered By: Bello Davenport on 08-11-2024 Nucleated RBC/100 WBC (Bld) [Ratio] 0 % 0-5 [facility] Platelet countOrdered By: Johnathan Davenport on 08-11-2024 Platelets (Bld) [#/Vol] 296 10*3/uL 150-450 [facility] Potassium (Unsp spec) [Mass/ Vol]Ordered By: Bello Davenport on 08-11-2024 Potassium [Moles/Vol] 4.4 mmol/L 3.3-5.1 [facility] RBC Auto (Bld) [#/Vol]Ordere d By: Bello Davenport on 08-11-2024 RBC (Bld) [#/Vol] 5.07 10*6/uL 4.2-5.4 [facility] Serum creatinine measurement (mass/volume)Ordered By: Bello Davenport on 08-11-2024 Creatinine [Mass/Vol] 0.75 mg/dL 0.70-1.20 [facility] Serum globulin measurementOr dered By: Bello Davenport on 08-11-2024 Globulin (S) [Mass/Vol] 3.1 g/dL 2.2-4.2 [facility] Serum glucose measurement (m ass/volume)Ordered By: Bello Davenport on 08-11-2024 Glucose [Mass/Vol] 88 mg/dL 70-99 [facility] Serum or plasma alanine armstrong otransferase (ALT) measurementOrdered By: Bello Davenport on 08-11-2024 ALT [Catalytic activity/Vol] 19 U/L <35 [facility] Serum or plasma albumin bianca urement (mass/volume)Ordered By: Bello Davenport on 08-11-2024 Albumin [Mass/Vol] 4.3 g/dL 3.4-4.8 [facility] Serum or plasma albumin/glob ulin mass ratioOrdered By: Bello Davenport on 08-11-2024 Albumin/Globulin [Mass ratio] 1.4 {ratio} 0.9-2.4 [facility] Serum or plasma alkaline zuhair sphatase measurementOrdered By: Bello Davenport 08-11-2024 ALP [Catalytic activity/Vol] 62 U/L 35-104 [facility] Serum or plasma calcium bianca urement (mass/volume)Ordered By: Bello Davenport 08-11-2024 Calcium [Mass/Vol] 9.9 mg/dL 7.6-11.0 [facility] Serum or plasma urea nitroge n measurement (mass/volume)Ordered By: Bello Davenport on 08-11-2024 Urea nitrogen [Mass/Vol] 15 mg/dL 4-19 [facility] Sodium levelOrdered By: Bello Davenport on 08-11-2024 Sodium [Moles/Vol] 140 mmol/L 133-145 [facility] TSH DL <= 0.005 mIU/L QnOrde red By: Bello Davenport on 08-11-2024 Thyroid Stimulating Hormone (TSH) 0.902 uIU/mL 0.300-4.200 [facility] Thyroid Stim Hormone (TSH)on 08-11-2024 TSH 0.902 uIU/mL Normal 0.300-4.200 [facility] Comment on above: Performed By: #### L 506.1001, L500.4050, L501.9520, L100.0100 ####[facility] [address] [place], [address] Total proteinOrdered By: Bello Davenport on 08-11-2024 Protein [Mass/Vol] 7.5 g/dL 5.9-8.4 [facility] Vitamin D, 25-hydroxyOrdered By: Bello Davenport on 08-11-2024 Vitamin D 25-Hydroxy 23.7 ng/mL Low 30-100 [facility] Comment on above: Vitamin D StatusDefi ciency: <20 ng/mL (50nmol/L)Insufficiency: 20-30 ng/mL (50-75 nmol/L)Sufficiency: 30-100 ng/mL (75-250 nmol/L)Toxicity: >100 ng/mL (>250 nmol/L) White blood cell (WBC) count Ordered By: Bello Davenport on 08-11-2024 WBC (Bld) [#/Vol] 5.7 10*3/uL 4.4-11.0 [facility] ED NOTEon 07-02-2024 ED NOTE HNO ID: [id number] Author: MADINA ROLLINS RN Service: Emergency Medicine Author Type: Registered Nurse Type: ED Notes Filed: 07/02/2024 13:25 Note Text: Patient is alert and oriented, denies any questions/concerns at this time. Patient verbalizes understanding of d/c instructions and follow up care. Patient ambulates from department at this time. Normal [facility] ED NOTE HNO ID: [id number] Author: MADINA ROLLINS RN Service: Emergency Medicine Author Type: Registered Nurse Type: ED Notes Filed: 07/02/2024 11:48 Note Text: Pt reports finger laceration from cutting food. 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 No other injuries. PAST MEDICAL HISTORY Diagnosis [...] is more (more content not included)... Normal [facility] Influenza virus A and B and SARS-CoV-2 (COVID-19) and Respiratory syncytial virus RNAOrdered By: Bello Davenport on 05-22-2024 SARS-CoV-2 (COVID-19) RNA ENID+probe Ql (Unsp spec) [facility] M100.678on 05-22-2024 M100.678 Pending SARS-CoV-2 (COVID 19) Negative INFLUENZA A Negative INFLUENZA B Negative RSV PCR Negative Normal [facility] Comment on above: Performed By: #### M 100.678 ####[facility] [address] [place], [address] No Panel Informationon 09-08 IMPRESSION: Minimal L2 superior endplate height loss, age indeterminate. Mild multilevel degenerative changes in the lumbar spine, as described. Hip joint spaces are maintained bilaterally. Sciences Dean: [facility] Transcribe Date/Time: Sep 09 2023 4:36P Dictated by : SHELIA SALEH MD This examination was interpreted and the report reviewed and electronically signed by: SHELIA SALEH MD on Sep 09 2023 4:41PM EST [facility] No Panel InformationOrdered By: [facility] Provider on 09-09-2023 [facility] XR HIP BILATERAL 5V PEL/AP/L AT [...] MORE PAIN IN HER LEFT HIP (accession [id number]), DEGENERATIVE DISC DISEASE OF LUMBAR (accession [id number]) CLINICAL INFORMATION ( PROVIDED BY ORDERING CLINICIAN) [...] Mild degenerative change at the pubic symphysis. [facility] Provider, Kailee Cheng - 09/09/2023 * [...] MORE PAIN IN HER LEFT HIP (accession [id number]), DEGENERATIVE DISC DISEASE OF LUMBAR (accession [id number]) CLINICAL INFORMATION ( PROVIDED BY ORDERING CLINICIAN) [...] described. Hip joint spaces are maintained bilaterally. Sciences [facility] Transcribe Date/Time: Sep 09 2023 4:36P Dictated by : SHELIA SALEH MD This examination was interpreted and the report reviewed and electronically signed by: SHELIA SALEH MD on Sep 09 2023 4:41PM EST [facility] Radiology Study observation (narrative) [facility] XR Lumbar spine 3 Viewson * [...] MORE PAIN IN HER LEFT HIP (accession [id number]), DEGENERATIVE DISC DISEASE OF LUMBAR (accession [id number]) CLINICAL INFORMATION ( PROVIDED BY ORDERING CLINICIAN) [...] Mild degenerative change at the pubic symphysis. [facility] Provider, [facility] - 09/09/2023 * * *Final Report* * [...] MORE PAIN IN HER LEFT HIP (accession [id number]), DEGENERATIVE DISC DISEASE OF LUMBAR (accession [id number]) CLINICAL INFORMATION ( PROVIDED BY ORDERING CLINICIAN) [...] described. Hip joint spaces are maintained bilaterally. Sciences Dean: P[facility] Transcribe Date/Time: Sep 09 2023 4:36P Dictated by : SHELIA SALEH MD This examination was interpreted and the report reviewed and electronically signed by: SHELIA SALEH MD on Sep 09 2023 4:41PM EST [facility] Radiology Study observation (narrative) [facility] Basophil percentageOrdered B y: Bello Davenport on 08-11-2023 Bilirubin [Mass/Vol] 1.10 mg/dL 0.20-1.00 [facility] Comment on above: For patients on eltr ombopag therapy, use of Dimension [place] TBIL is not recommended. Chloride [Moles/Vol] 105 mmol/L 98-107 [facility] Glucose [Mass/Vol] 83 mg/dL 74-106 [facility] Hemoglobin (Bld) [Mass/Vol] 14.1 g/dL 12.0-15.0 [facility] Potassium [Moles/Vol] 3.7 mmol/L 3.5-5.1 [facility] Protein [Mass/Vol] 7.7 g/dL 6.4-8.2 [facility] Sodium [Moles/Vol] 138 mmol/L 136-145 [facility] WBC (Bld) [#/Vol] 6.4 10*3/uL 4.4-11.0 [facility] Culture, urineOrdered By: Johnathan Davenport on 08-11-2023 Bacteria identified Cx Nom (U) Presumptive E. coli [facility] Determination of erythrocyte mean corpuscular volume (MCV)Ordered By: Bello Davenport on 08-11-2023 MCV (RBC) [Entitic vol] 84.4 fL 81-99 [facility] Erythrocyte distribution wid th ratioOrdered By: Bello Davenport on 08-11-2023 Erythrocyte distribution width (RBC) [Ratio] 13.1 % 11.6-14.6 [facility] Erythrocyte distribution wid th standard deviationOrdered By: Bello Davenport on 08-11-2023 Erythrocyte distribution width (RBC) [Entitic vol] 39.9 fL 35.1-43.9 [facility] Hematocrit Auto (Bld) [Volum e fraction]Ordered By: Bello Davenport on 08-11-2023 Hematocrit (Bld) [Volume fraction] 41.7 % 37-47 [facility] Laboratory - Chemistry and C hemistry - challengeOrdered By: Bello Davenport on 08-11-2023 Albumin/Globulin [Mass ratio] 1.1 {ratio} 0.9-2.4 [facility] ALP [Catalytic activity/Vol] 54 U/L 45-117 [facility] ALT [Catalytic activity/Vol] 27 U/L 13-56 [facility] CO2 [Moles/Vol] 25.0 mmol/L 21.0-32.0 [facility] Globulin (S) [Mass/Vol] 3.6 g/dL 2.2-4.2 [facility] Urea nitrogen/Creatinine [Mass ratio] 18.4 mg/mg 10-20 [facility] Laboratory - Hematology and Cell countsOrdered By: Bello Davenport on 08-11-2023 MCH (RBC) [Entitic mass] 28.5 pg 27.0-32.0 [facility] MCHC (RBC) [Mass/Vol] 33.8 g/dL 32-36 [facility] Platelet mean volume (Bld) [Entitic vol] 10.6 fL 6.2-12.0 [facility] Platelets (Bld) [#/Vol] 280 10*3/uL 150-450 [facility] No Panel InformationOrdered By: Bello Davenport on 08-11-2023 Estimated GFR (MDRD) Amer 78 mL/min >60 [facility] Comment on above: GFR Calc Estimated GFR (MDRD) Non-Af Amer 65 mL/min >60 [facility] Comment on above: Non- GFR Calc Hepatitis C Antibody Non-Reactive Nonreactive [facility] Comment on above: Non Reactive: < 0.8 Equivocal: >/= 0.8 to < 1.0 Reactive: >/= 1.0The CDC requires that a reactive/equivocal HCV antibody result be sent out for confirmation. HCV Quant by PCR testing. Vitamin D 25-Hydroxy 31.1 ng/mL [facility] Comment on above: Vitamin D 25(OH) Sta tus Range Deficiency <20 ng/mL (50nmol/L) Insufficiency 20 - 30 ng/mL (50 - 75 nmol/L) Sufficiency 30 - 100 ng/mL (75 - 250 nmol/L) Toxicity >100 ng/mL (>250 nmol/L) RBC Auto (Bld) [#/Vol]Ordere d By: Bello Davenport on 08-11-2023 RBC (Bld) [#/Vol] 4.94 10*6/uL 4.2-5.4 [facility] Serum or plasma calcium bianca urement (mass/volume)Ordered By: Bello Davenport on 08-11-2023 Calcium [Mass/Vol] 9.6 mg/dL 8.5-10.1 [facility] Serum or plasma creatinine m easurement (mass/volume)Ordered By: Bello Davenport 08-11-2023 Creatinine [Mass/Vol] 0.92 mg/dL 0.55-1.02 [facility] Comment on above: The validity of the calculated GFR & GFRAA in patients over 70 years has not been determined. Clinical correlation is essential. Serum or plasma thyroid stim ulating hormone (TSH) measurement (units/volume)Ordered By: Bello Davenport 08-11-2023 TSH Qn 0.49 uIU/mL 0.358-3.74 [facility] Serum or plasma urea nitroge n measurement (mass/volume)Ordered By: Bello Davenport 08-11-2023 Urea nitrogen [Mass/Vol] 17 mg/dL 7-18 [facility] Thin prep Papanicolaou smear with manual screeningOrdered By: Bello Davenport 08-11-2023 Thin prep Papanicolaou smear with manual screening 4.1 g/dL 3.2-5.0 [facility] Thin prep Papanicolaou smear with manual screening 28 U/L 15-37 [facility] Thin prep Papanicolaou smear with manual screening 8 5-15 [facility] CNPNon 07-28-2023 CNPN Telephone (FARUST) -- TIFFANIE RAMSEY ([id number]) 1960 F Date Time Provider Department 07/28/23 JEREMY RAMIREZ During your visit today, we recorded the following information about you: Glendy Motta MA 07/28/2023 1:21 PM Signed ----- Message from Jeremy Ramirez APRN.COLLATERAL SPECIALIST sent at 07/28/2023 12:21 PM EST ----- [...] Date Reviewed: 07/22/2023 Reviewed by: Angel Catherine APRN.COLLATERAL SPECIALIST - Fully Assessed Reason for Visit: Results [...] Status:Closed by GLENDY MOTTA on 07/28/23 Normal [facility] BD DXA - AXIAL SKELETONon BD DXA [...] years, Gender: Female SCANNER INFORMATION: DXA Model: [facility] Digital Message Display [id number] Date Scanned: 07/27/2023 10:18 AM CLINICAL HISTORY: [...] had a previous bone density in the [employer] or the previous bone density was performed on a different DXA machine (new, updated model or different location) within the [employer]. VERTEBRAL FRACTURE ASSESSMENT Not performed. TRABECULAR BONE [...] FOR MORE INFORMATION ABOUT DIAGNOSIS AND TREATMENT: [facility] Osteoporosis and Metabolic Bone Disease:? www.ccf.org/arthritis/oste o National Osteoporosis Foundation:? www.nof.org International Society of Clinical Densitometry www.iscd.org Sciences Dean: SAUNDRA Transcribe Date/Time: Jul 28 2023 9:50A Dictated by : LEOLA BABB MD This examination was interpreted and the report reviewed and electronically signed by: LEOLA BABB MD on Jul 28 2023 9:51AM EST [id number] Normal [facility] STREP A MOLECULAR (POC)on Procedural Control Valid [facility] Strep A (POCT) Negative Negative [facility] US Thyroid glandon [facility] DIGITAL MAMM SCREENING W/ TO Rosa 12-24-2022 DIGITAL MAMM SCREENING W/ BEBA Patient Name: TIFFANIE RAMSEY STUDY: DIGITAL MAMM SCREENING W/ BEBA; 12/24/2022 2:29 pm ACCESSION NUMBER(S): [id number] ORDERING CLINICIAN: NATHALIA LOU INDICATION: Screening. COMPARISON: 12/12/2021 and 12/31/2020. FINDINGS: 2D and tomosynthesis images were reviewed at 1 mm slice thickness. Density: There are areas of scattered fibroglandular tissue. No suspicious masses or calcifications are identified. IMPRESSION: No mammographic evidence of malignancy. BI-RADS CATEGORY: Category: 1 - Negative. Recommendation: 1 Year Screening. For any future breast imaging appointments, please call [phone]). Patient letter sent SNORM MACRO: None Electronically signed by: GEOFF LAFLEUR MD Normal [facility] Mamm - Screening Mammogram w / Tomosynthesison 12-24-2022 MG Breast Screening Normal MG-LEATHER SORTER-We ravi 0336 DO Work Phone: [employer] - Office Visiton 11-29 [employer] - Office Visit Diagnoses/Problems Assessed Well female exam with routine gynecological exam (V72.31) (Z01.419) Orders Mamm - Screening Mammogram w/ Tomosynthesis; Status:Hold For - Scheduling; Requested for:[id number]; Radiologist to Determine Optimal Study : Y [...] PAP: 12/12/2020- WNL -HPV LAST MAMM: 12/12/2021 COMMUNICATION EQUIPMENT MECHANIC: Preet Young MA II History of Present [id number] female presenting for annual visit. Just tired. Just moved to [place]. using vaginal estrogen once a week. Diet: [...] TSH Qn 1.40 m[IU]/L See Below [facility] [place] [address] Work Phone: Comment on above: Reference Range: 0.4 4 - 3.98 TSH testing is performed using different testing methodology at [facility] than at other system [facility]. Direct result comparisons should only be made within the same method. TSH WITH REFLEX TO FREE T4 I F ABNORMALon 07-23-2022 TSH Qn 1.40 m[IU]/L Normal 0.44 - 3.98 [facility] Comment on above: Result Comment: TSH testing is performed using different testing methodology at [facility] than at other system [facility]. Direct result comparisons should only be made within the same method. Performed By: #### T HYDS #### [address] [id number] No Panel Informationon 12-22 FINAL REPORT Interpreted by: CARLITO CHICAS JOSEPH, MD 12/23/21 15:37 Patient Name: TIFFANIE RAMSEY STUDY: US PELVIS TRANSABDOMINAL WITH TRANSVAGINAL; 12/22/2021 3:41 pm INDICATION: llq R10.32: Abdominal pain, LLQ (left lower qu Normal MG-OBGYN-MA C 1200 [place] Work Phone: Mamm - Screening Mammogram w / Tomosynthesison 12-12-2021 MG Breast Screening Normal MG-LEATHER SORTER-We [place] 2420 DO Work Phone: Cult, Urineon [...] [Mass/Vol] 4.7 g/dL 3.4 - 5.0 [facility] [place] 2099 Work Phone: ALP [Catalytic activity/Vol] 47 U/L 33 - 136 [facility] [place] 2099 Work Phone: ALT With P-5'-P [Catalytic activity/Vol] 22 U/L 7 - 45 [facility] [place] 2099 Work Phone: Comment on above: Patients treated wit h Sulfasalazine may generate falsely decreased results for ALT. Anion gap [Moles/Vol] 13 mmol/L 10 - 20 [facility]- [facility] [place] 2099 Work Phone: AST With P-5'-P [Catalytic activity/Vol] 19 U/L 9 - 39 -[facility] 2099 Work Phone: Bilirubin [Mass/Vol] 0.9 mg/dL 0.0 - 1.2 -[address] [facility] 2099 Work Phone: Calcium [Mass/Vol] 10.2 mg/dL 8.6 - 10.6 [facility] 2099 Work Phone: Chloride [Moles/Vol] 106 mmol/L 98 - 107 -[facility] 2099 Work Phone: CO2 [Moles/Vol] 26 mmol/L 21 - 32 [facility] 2099 Work Phone: Creatinine [Mass/Vol] 0.80 mg/dL See Below [facility] 2099 Work Phone: Comment on above: Reference Range: 0.5 0 - 1.05 Glucose [Mass/Vol] 87 mg/dL 74 - 99 [facility] 2099 Work Phone: Potassium [Moles/Vol] 4.7 mmol/L 3.5 - 5.3 [facility] 2099 Work Phone: Protein [Mass/Vol] 7.6 g/dL 6.4 - 8.2 [facility] 2099 Work Phone: Sodium [Moles/Vol] 140 mmol/L 136 - 145 [facility] 2099 Work Phone: Urea nitrogen [Mass/Vol] 18 mg/dL 6 - 23 -[facility] 2099 Work Phone: Laboratory - Hematology and Cell countson 11-07-2021 Erythrocyte distribution width (RBC) [Ratio] 14.0 % See Below [facility] [place] 2099 Work Phone: Comment on above: Reference Range: 11. 5 - 14.5 Hematocrit (Bld) [Volume fraction] 43.0 % See Below [facility] 2099 Work Phone: Comment on above: Reference Range: 36. 0 - 46.0 Hemoglobin (Bld) [Mass/Vol] 14.0 g/dL See Below [facility] [place] [employer] Work Phone: Comment on above: Reference Range: 12. 0 - 16.0 MCHC (RBC) [Mass/Vol] 32.6 g/dL See Below [facility] [place] [employer] Work Phone: Comment on above: Reference Range: 32. 0 - 36.0 MCV (RBC) [Entitic vol] 87 fL 80 - 100 [facility] [employer] Work Phone: Platelets (Bld) [#/Vol] 293 10*3/uL 150 - 450 [facility] 2099 Work Phone: RBC (Bld) [#/Vol] 4.93 {x10E12/L} See Below [facility] [place] [employer] Work Phone: Comment on above: Reference Range: 4.0 0 - 5.20 WBC (Bld) [#/Vol] 6.8 10*3/uL 4.4 - 11.3 -[facility] [place] [employer] Work Phone: Lipid Panelon 11-07-2021 Cholesterol [Mass/Vol] 272 mg/dL above high threshold 0 - 199 [facility] [employer] Work Phone: Comment on above: . AGE [...] dosing. Cholesterol in HDL [Mass/Vol] 68.8 mg/dL [employer] Work Phone: Comment on above: . AGE VERY LOW LOW N ORMAL HIGH 0-19 Y < 35 < 40 40-45 ---- 20- 24 Y ---- < 40 >45 ---- >24 Y ---- < 40 40-60 >60. Cholesterol in LDL [Mass/Vol] 181 mg/dL above high threshold 0 - 99 [employer] Work Phone: Comment on above: . NEAR BORD AGE CONCEPCIÓN RABLE OPTIMAL HIGH HIGH VERY HIGH 0-19 Y 0 - 109 --- 110-129 >/= 130 ---- 20-24 Y 0 - 119 --- 120-159 >/= 160 ---- >24 Y 0 - 99 100-129 130-159 160-189 >/=190. Cholesterol.total/Cho lesterol in HDL [Mass ratio] 4.0 {ratio} [employer] Work Phone: Comment on above: REF VALUESDESIRABLE < 3.4HIGH RISK > 5.0 Triglyceride [Mass/Vol] 110 mg/dL 0 - 149 [employer] Work Phone: Comment on above: . AGE [...] Lipid Panel 22 mg/dL 0 - 40 [employer] [facility] Work Phone: No Panel Informationon 11-07 0.0 {/100_WBC} 0.0-0.0 [employer] Work Phone: 83 {mL/min/1.73m2} >90 [facility] [place] 2099 Work Phone: Comment on above: CALCULATIONS OF SOPHIE MATED GFR ARE PERFORMED USING THE 2020 CKD-EPI STUDY REFIT EQUATION WITHOUT THE RACE VARIABLE FOR THE IDMS-TRACEABLE CREATININE METHODS.https://jasn.asnjournals.org/content// N.4967481957 Vitamin B12, Serumon Cobalamin (Vitamin B12) [Mass/Vol] 638 pg/mL 211 - 911 -[facility]-N [place] 2099 Work Phone: Vitamin D 25-Hydroxyon 11-07 25-hydroxyvitamin D3 [Mass/Vol] 33 ng/mL [employer] [facility] 2099 Work Phone: Comment on above: .DEFICIENCY: < 20 NG /MLINSUFFICIENCY: 20-29 NG/MLSUFFICIENCY: 30-100 NG/MLTHIS ASSAY ACCURATELY QUANTIFIES THE SUM OFVITAMIN D3, 25-HYDROXY AND VIT D2,25-HYDROXY. Tobacco Screening.on Fall risk assessment a) No falls within the last year [facility] [place] [employer] Work Phone: Tobacco use status [facility] b) No [facility] [place] [employer] Work Phone: Tobacco Screening.on Fall risk assessment a) No falls within the last year [facility] Work Phone: Tobacco use status [facility] b) No [facility] Work Phone: Tobacco Screening.on Adult depression screening assessment No [facility] [place] [employer] Work Phone: Fall risk assessment a) No falls within the last year [facility] [place] 2099 Work Phone: Tobacco use status [facility] b) No [facility] [place] [employer] Work Phone: IO UA (automated w/o microsc [...] - 2.0 MG-Orthopae dics-[place] 210 Work Phone: [phone] Erythrocyte distribution width (RBC) [Ratio] 13.2 % See Below [facility]-[place] 210 Work Phone: [phone] Comment on above: Reference Range: 11. 5 - 14.5 Hematocrit (Bld) [Volume fraction] 43.4 % See Below [facility]op[facility]-[place] 210 Work Phone: [phone] Comment on above: Reference Range: 36. 0 - 46.0 Hemoglobin (Bld) [Mass/Vol] 14.1 g/dL See Below [facility]-[place] 210 Work Phone: [phone] Comment on above: Reference Range: 12. 0 - 16.0 Lymphocytes/100 WBC (Bld) 24.9 % See Below [facility]op[facility]-[place] 210 Work Phone: [phone] Comment on above: Reference Range: 13. 0 - 44.0 MCHC (RBC) [Mass/Vol] 32.5 g/dL See Below MG- Orthopae dics-[place] 210 Work Phone: [phone] Comment on above: Reference Range: 32. 0 - 36.0 MCV (RBC) [Entitic vol] 87 fL 80 - 100 [facility] 210 Work Phone: [phone] Monocytes/100 WBC (Bld) 7.1 % 2.0 - 10.0 [facility] 210 Work Phone: [phone] Neutrophils/100 WBC (Bld) 63.4 % See Below [facility] [address] Work Phone: [phone] Comment on above: Reference Range: 40. 0 - 80.0 Platelets (Bld) [#/Vol] 256 10*3/uL 150 - 450 [facility] [address] Work Phone: [phone] RBC (Bld) [#/Vol] 5.01 {x10E12/L} See Below MG -Orthopae dics-[place] 210 Work Phone: [phone] Comment on above: Reference Range: 4.0 0 - 5.20 WBC (Bld) [#/Vol] 5.1 10*3/uL 4.4 - 11.3 MG-Ort justinae dics-[place] 210 Work Phone: Complete Blood Count + Differential 0.06 {x10E9/L} See Below [facility]thopae [facility]-[place] 210 Work Phone: [phone] Comment on above: Reference Range: 0.0 0 - 0.10 Complete Blood Count + Differential 0.15 {x10E9/L} See Below [facility]-[place] [address] Work Phone: [phone] Comment on above: Reference Range: 0.0 0 - 0.70 Complete Blood Count + Differential 0.36 {x10E9/L} See Below [facility]-[place] [address] Work Phone: [phone] Comment on above: Reference Range: 0.1 0 - 1.00 Complete Blood Count + Differential 1.26 {x10E9/L} See Below [facility]opae [facility]-[place] [address] Work Phone: [phone] Comment on above: Reference Range: 1.2 0 - 4.80 Complete Blood Count + Differential 3.21 {x10E9/L} See Below [facility]op[facility]-[place] [address] Work Phone: [phone] Comment on above: Reference Range: 1.2 0 - 7.70 Complete Blood Count + Differential 3.0 % 0.0 - 6.0 [facility] [address] Work Phone: [phone] Complete Blood Count + Differential 0.4 % 0.0 - 0.9 [facility] [address] Work Phone: [phone] Comment on above: Immature Granulocyte Count (IG) includes promyelocytes, myelocytes and metamyelocytes but does not include bands. Percent differential counts (%) should be interpreted in the context of the absolute cell counts (cells/L). Complete Blood Count + Differential 0.0 {/100_WBC} 0.0 - 0.0 [facility] [address] Work Phone: [phone] Laboratory - Chemistry and C hemistry - challengeon 08-05-2021 Albumin BCP dye [Mass/Vol] 4.4 g/dL 3.4 - 5.0 [facility] [address] Work Phone: [phone] ALP [Catalytic activity/Vol] 46 U/L 33 - 136 [facility] 210 Work Phone: [phone] ALT With P-5'-P [Catalytic activity/Vol] 11 U/L 7 - 45 [facility] [address] Work Phone: [phone] Comment on above: Patients treated wit h Sulfasalazine may generate falsely decreased results for ALT. Anion gap [Moles/Vol] 9 mmol/L below low threshold 10 - 20 [facility] [address] Work Phone: [phone] AST With P-5'-P [Catalytic activity/Vol] 16 U/L 9 - 39 [facility]opae d[facility]-[place] 210 Work Phone: [phone] Bilirubin [Mass/Vol] 0.8 mg/dL 0.0 - 1.2 MG-O rthopae dics-[place] 210 Work Phone: [phone] Calcium [Mass/Vol] 9.5 mg/dL 8.6 - 10.3 MG-Ort hopae dics-[place] 210 Work Phone: [phone] Chloride [Moles/Vol] 105 mmol/L 98 - 107 MG-O rthopae dics-[place] 210 Work Phone: [phone] CO2 [Moles/Vol] 28 mmol/L 21 - 32 [facility]-Orthop ae dics-[place] 210 Work Phone: [phone] Creatinine [Mass/Vol] 0.70 mg/dL See Below MG- Orthopae dics-[place] 210 Work Phone: [phone] Comment on above: Reference Range: 0.5 0 - 1.05 Glucose [Mass/Vol] 92 mg/dL 74 - 99 MG-Ort hopae dics-[place] 210 Work Phone: [phone] Potassium [Moles/Vol] 4.0 mmol/L 3.5 - [...] is performed using different testing methodology at [facility] than at other [facility]. Direct result comparisons should only be made within the same method. Vitamin D 25-Hydroxyon 01-02 25-hydroxyvitamin D3 [Mass/Vol] 26 ng/mL Abnormal [facility]thopae [facility]-[place] [address] Work Phone: Comment on above: .DEFICIENCY: < 20 NG /MLINSUFFICIENCY: 20-29 NG/MLSUFFICIENCY: 30-100 NG/MLTHIS ASSAY ACCURATELY QUANTIFIES THE SUM OFVITAMIN D3, 25-HYDROXY AND VIT D2,25-HYDROXY. Mamm - Screening Mammogram w / Tomosynthesison 12-31-2020 MG Breast Screening Normal MG-LEATHER SORTER-We [place] 2420 DO Work Phone: Cult, Urineon 12-12-2020 Bacteria identified Cx Nom (U) PATIENT: TIFFANIE GOMEZ LOCATION: [facility] BILL#: [id number] : 56 AGE: SEX: F ORDERED BY: MADDIE GAMING SOURCE: URINE Abnormal MG-OBGYN-We [place] 2419 DO Work Phone: IO UA (automated w/o microsc opy)on 12-12-2020 Protein (U) [Mass/Vol] Trace MG-OBGYN-MA C 1200 [place] Work Phone: [phone] IO UA (automated w/o microscopy) (+++)large - 80 MG-OBGYN-MA C 1200 [place] Work Phone: [phone] IO UA (automated w/o microscopy) Negative MG-OBGYN-MA C 1200 [place] Work Phone: [phone] IO UA (automated w/o microscopy) Normal MG-OBGYN-MA C 1200 [place] Work Phone: [phone] IO UA (automated w/o microscopy) 7.0 1 MG-OBGYN-MA C 1200 [place] Work Phone: [phone] IO UA (automated w/o microscopy) 1.010 1 MG-OBGYN-MA C 1200 [place] Work Phone: [phone] IO UA (automated w/o microscopy) Clear MG-OBGYN-MA C 1200 [place] Work Phone: IO UA (automated w/o microscopy) Yellow MG-OBGYN-MA C 1200 [place] Work Phone: [phone] Laboratory - Cytologyon 11-28 Cytology report Cyto stain.thin prep Doc (Cvx/Vag) MG-OBGYN-We [place] 2419 DO Work Phone: Hematologyon 05-15-2020 Hematocrit (Bld) [Volume fraction] 44.2 % See Below [facility] [place] 2100 Work Phone: Comment on above: Reference Range: 36. 0 - 46.0 Hemoglobin (Bld) [Mass/Vol] 14.0 g/dL See Below -[facility]-N [place] [employer] Work Phone: Comment on above: Reference Range: 12. 0 - 16.0 MCV (RBC) [Entitic vol] 91 fL 80 - 100 [facility] [place] 2099 Work Phone: Platelets (Bld) [#/Vol] 278 {x10E9/L} 150 - 450 -[facility]-N [place] 2099 Work Phone: RBC (Bld) [#/Vol] 4.88 {x10E12/L} See Below -[facility]-N [place] [employer] Work Phone: Comment on above: Reference Range: 4.0 0 - 5.20 WBC (Bld) [#/Vol] 4.8 {x10E9/L} 4.4 - 11.3 -W S[facility]-N [place] [employer] Work Phone: Lipid Panelon 05-15-2020 Cholesterol [Mass/Vol] 246 mg/dL above high threshold 0 - 199 -[facility] [place] [employer] Work Phone: Comment on above: . AGE [...] Cholesterol in HDL [Mass/Vol] 70.0 mg/dL -WS-N [place] 2099 Work Phone: Comment on above: . AGE VERY LOW LOW N ORMAL HIGH 0-19 Y < 35 < 40 40-45 ---- 20- 24 Y ---- < 40 >45 ---- >24 Y ---- < 40 40-60 >60. Cholesterol in LDL [Mass/Vol] 157 mg/dL above high threshold 0 - 99 [employer] Work Phone: Comment on above: . NEAR BORD AGE CONCEPCIÓN RABLE OPTIMAL HIGH HIGH VERY HIGH 0-19 Y 0 - 109 --- 110-129 >/= 130 ---- 20-24 Y 0 - 119 --- 120-159 >/= 160 ---- >24 Y 0 - 99 100-129 130-159 160-189 >/=190. Cholesterol.total/Cho lesterol in HDL [Mass ratio] 3.5 {ratio} [employer] Work Phone: [phone] Comment on above: REF VALUESDESIRABLE < 3.4HIGH RISK > 5.0 Triglyceride [Mass/Vol] 95 mg/dL 0 - 149 [employer] Work Phone: Comment on above: . AGE [...] Panel 19 mg/dL 0 - 40 [facility] Work Phone: Metabolic Panelon 05-15-2020 ALP [Catalytic activity/Vol] 50 U/L 33 - 136 [employer]-[facility]-N [facility] Work Phone: Anion gap [Moles/Vol] 10 mmol/L 10 - 20 [employer]- [facility]-N [facility] Work Phone: Bilirubin [Mass/Vol] 1.1 mg/dL 0.0 - 1.2 MP-W S[facility]-N [facility] Work Phone: Calcium [Mass/Vol] 9.9 mg/dL 8.6 - 10.3 -[facility] Work Phone: Chloride [Moles/Vol] 104 mmol/L 98 - 107 -W [facility]-N [place] 2099 Work Phone: CO2 [Moles/Vol] 31 mmol/L 21 - 32 [facility] 2099 Work Phone: Creatinine [Mass/Vol] 0.71 mg/dL See Below [facility] 2099 Work Phone: Comment on above: Reference Range: 0.5 0 - 1.05 Glucose [Mass/Vol] 92 mg/dL 74 - 99 -[facility] 2099 Work Phone: Potassium [Moles/Vol] 3.9 mmol/L 3.5 - 5.3 [facility] 2099 Work Phone: Protein [Mass/Vol] 7.3 g/dL 6.4 - 8.2 -[facility] 2099 Work Phone: Sodium [Moles/Vol] 141 mmol/L 136 - 145 [facility] 2099 Work Phone: Urea nitrogen [Mass/Vol] 11 mg/dL 6 - 23 [facility] 2099 Work Phone: Otheron 05-15-2020 Albumin BCP dye [Mass/Vol] 4.3 g/dL 3.4 - 5.0 [facility] 2099 Work Phone: ALT With P-5'-P [Catalytic activity/Vol] 14 U/L 7 - 45 [facility] 2099 Work Phone: Comment on above: Patients treated wit h Sulfasalazine may generate falsely decreased results for ALT. AST With P-5'-P [Catalytic activity/Vol] 20 U/L 9 - 39 -[facility]N [place] 2099 Work Phone: Erythrocyte distribution width (RBC) [Ratio] 13.3 % See Below [facility] [place] 2100 Work Phone: Comment on above: Reference Range: 11. 5 - 14.5 MCHC (RBC) [Mass/Vol] 31.7 g/dL below low threshold See Below [facility] [place] 2100 Work Phone: Comment on above: Reference Range: 32. 0 - 36.0 >60 >60 [facility] [place] 2100 Work Phone: Comment on above: CALCULATIONS OF SOPHIE MATED GFR ARE PERFORMED USING THE MDRD STUDY EQUATION FOR THE IDMS-TRACEABLE CREATININE METHODS. CLIN CHEM 2007;53:766-72 CORONAVIRUS 2019 BY PCRon CORONAVIRUS 2019,PCR NOT DETECTED Normal Not Detected [facility] Comment on above: Result Comment: . This [...] patient management decisions. Fact sheet for providers: https://www.fda.gov/media/424638/download Fact sheet for patients: https://www.fda.gov/media/941414/download This test has received FDA Emergency Use Authorization (EUA) and has been verified by [facility] ([facility]). This test is only authorized for the duration of time that circumstances exist to justify the authorization of the emergency use of in vitro diagnostic tests for the detection of SARS-CoV-2 virus and/or diagnosis of COVID-19 infection under section 564(b)(1) of the Act, 21 U.S.C. 360bbb-3(b)(1), unless the authorization is terminated or revoked sooner. [facility] is certified under CLIA-88 as qualified to perform high complexity testing. Testing is performed in the [facility] laboratories located at [address] [place] [address]. Performed By: #### C OV19 #### [facility] [address] [place] [address] CORONAVIRUS 2019 BY PCRon Lab Specimen Source Nasal, Nasopharyngeal Normal [facility] Comment on above: Performed By: #### C OV19 #### [facility] [address] [place] [address] Coronavirus 2019 RNA by PCR, Symptomaticon 04-23-2020 EMPLOYED IN HEALTHCARE Unknown [facility]-N [employer] 2100 Work Phone: FIRST COVID NASAL SWAB TEST? Unknown [facility] [employer] [employer] 2[facility] Work Phone: ICU? Unknown [facility] [employer] 2[facility] Work Phone: Patient was hospitalized because of this condition Unknown [facility] [employer] 2[facility] Work Phone: status Unknown [facility]- N [facility] [employer] 2[address] Work Phone: RESIDENT IN CONGREGATE CARE SETTING? Unknown [facility] [employer] 2100 Work Phone: SYMPTOMATIC DEFINED BY CDC Unknown [facility]-N [employer] 2100 Work Phone: Coronavirus 2019 RNA by PCR, Symptomatic NOT DETECTED See Below [facility]-N [facility] 2[address] Work Phone: Comment on above: SOURCE: [...] make patient management decisions.Fact sheet for providers: https://www.fda.gov/media/466121/downloadFact sheet for patients: https://www.fda.gov/media/967727/downloadThis test has received FDA Emergency Use Authorization (EUA) and has been verified by [facility] ([facility]). This test is only authorized for the duration of time that circumstances exist to justify the authorization of the emergency use of in vitro diagnostic tests for the detection of SARS-CoV-2 virus and/or diagnosis of COVID-19 infection under section 564(b)(1) of the Act, 21 U.S.C. 360bbb-3(b)(1), unless the authorization is terminated or revoked sooner. [facility] is certified under CLIA-88 as qualified to perform high complexity testing. Testing is performed in the [facility] laboratories located at [address] [place] [address]. CORONAVIRUS 2019 BY PCRon EMPLOYED IN HEALTHCARE? Unknown Normal [facility] Comment on above: Performed By: #### C OV19 #### [address] [place] [address] FIRST COVID NASAL SWAB TEST? Unknown Normal [facility] Comment on above: Performed By: #### C OV19 #### [address] [place] [address] HOSPITALIZED (OR PLANNED TO BE ADMITTED)? Unknown Normal [facility] Comment on above: Performed By: #### C OV19 #### [address] [place] [address] ICU? Unknown Normal [facility] Comment on above: Performed By: #### C OV19 #### [address] [facility] [address] ? Unknown Normal [facility] Comment on above: Performed By: #### C OV19 #### [address] [place] [address] RESIDENT IN CONGREGATE CARE SETTING? Unknown Normal [facility] Comment on above: Performed By: #### C OV19 #### [address] [place] [address] SYMPTOMATIC DEFINED BY CDC? Unknown Normal [facility] Comment on above: Performed By: #### C OV19 #### [facility] [address] [place] [address] Mamm - Screening Mammogram w / Tomosynthesison 12-27-2019 MG Breast screening Interpreted by: WASHINGTON SANTOS12/28/19 12:17MRN: [id number] Name: TIFFANIE GOMEZ STUDY:DIGITAL MAMM SCREENING W/ [...] any future breast imaging appointments, please call [phone]). Patient letter sent SNORM Electronically signed by: ALLY SANTOS 12/28/19 12:17 Normal [facility] [place] [address] Work Phone: Comment on above: ORDER REVISED TO A D IGITAL MAMM SCREENING W/ BEBA BY RADIOLOGIST; Original Order Number: [id number] IO UA (automated w/o microsc opy)on 12-14-2019 Protein (U) [Mass/Vol] Negative [facility] [place] [address] Work Phone: IO UA (automated w/o microscopy) Yellow [facility] [place] [address]99 Work Phone: IO UA (automated w/o microscopy) Clear [facility] [place] [address]99 Work Phone: IO UA (automated w/o microscopy) Negative [facility] [place] 2099 Work Phone: IO UA (automated w/o microscopy) 1.015 [facility] [place] [address]99 Work Phone: IO UA (automated w/o microscopy) 7.5 [facility] [place] [address] Work Phone: IO UA (automated w/o microscopy) Normal (0.2-1.0 mg/dl) [facility] [place] [address] Work Phone: T4 - Free Thyroxine, Serumon 12-04-2019 Free T4 [Mass/Vol] 1.30 ng/dL See Below [facility] [place] 24[address] DO Work Phone: Comment on above: Reference Range: 0.7 8 - 1.48 Thyroxine Free testing is performed using different testing methodology at [facility] than at other [facility]. Direct result comparisons should only be made within the same method. Ordering Provider: Hortencia RAMIREZ [id number] TSH - Thyroid Stimulating Ho rmone, Serumon 12-04-2019 TSH Qn 0.96 {mIU/L} See Below [facility] [place] 24[address] DO Work Phone: Comment on above: Reference Range: 0.4 4 - 3.98 TSH testing is performed using different testing methodology at [facility] than at other [facility]. Direct result comparisons should only be made within the same method. Ordering Provider: Hortencia RAMIREZ [id number] Triiodothyronine, Level (T3) on 12-04-2019 T3 [Mass/Vol] 113 ng/dL 60 - 200 [facility] [place] [address] DO Work Phone: Comment on above: Ordering Provider: Hortencia RAMIREZ [id number] DIGITAL MAMMO SCREENING W TO Rosa 08-30-2018 DIGITAL MAMMO SCREENING W BEBA STUDY: DIGITAL MAMMO SCREENING W BEBA; 08/30/2018 10:47 am ACCESSION NUMBER(S): [id number] ORDERING CLINICIAN: Nathalia Lou INDICATION: Screening. COMPARISON: [...] any future breast imaging appointments, please call [phone]). Patient letter sent SNORM Normal [facility] PATHOLOGY SPECIMENon 019 PATHOLOGY SPEC Normal [facility] Comment on above: Order Comment: Comme nt: HEPATIC FLEXURE POLYP Comment: TRANSVERSE POLYP Comment: SIGMOID POLYP Result Comment: Note : Specimens received on or after January: * Reports will be faxed to all physician's office. If you are a physician or have access to [facility]: * Pathology and Cytology reports are located in [facility] PCI in the folder labeled Medical Record Forms. * Reports are also in the Physician Portal. * For assistance locating reports call: (LAB) [phone] Performed By: #### L PATH #### [facility] [address] [place] [address] Vital Signs Date Time Vital Sign Value Performing Clinician Facility 03-13-2025 13:04-0400 Body height 157.[address] Bello Davenport MD Work Phone: [facility] 03-13-2025 13:04-0400 Body mass index (BMI) [Ratio] 24.7 kg/m2 Dr. Bello Davenport MD Work Phone: [facility] 03-13-2025 13:04-0400 Body weight 61.[address] Bello Davenport MD Work Phone: [facility] 03-13-2025 13:04-0400 Diastolic blood pressure 74 mm[Hg] Dr. Bello Davenport MD Work Phone: [facility] 03-13-2025 13:04-0400 Heart rate 70 /min Dr. Bello Davenport MD Work Phone: [facility] 03-13-2025 13:04-0400 Systolic blood pressure 106 mm[Hg] Dr. Bello Davenport MD Work Phone: [facility] 03-08-2025 08:27-0400 Body mass index (BMI) [Ratio] 25.1 kg/m2 Dr. Bello Davenport MD Work Phone: 1(247)284-244534 [place] [address] 03-08-2025 08:27-0400 Body weight 62.[address] Bello Davenport MD Work Phone: 3(781)824-391873 [place] [address] 03-08-2025 07:16-0400 Body temperature 98.3 [degF] Dr. Bello Davenport MD Work Phone: 9(782)447-428473 [place] [address] 03-08-2025 07:16-0400 Diastolic blood pressure 62 mm[Hg] Dr. Bello Davenport MD Work Phone: 1(998)146-871173 [place] [address] 03-08-2025 07:16-0400 Heart rate 65 /min Dr. Bello Davenport MD Work Phone: 0(344)106-259473 [place] [address] 03-08-2025 07:16-0400 Respiratory rate 12 /min Dr. Bello Davenport MD Work Phone: 9(484)223-209573 [place] [address] 03-08-2025 07:16-0400 SaO2% (BldA) [Mass fraction] 97 % Dr. Bello Davenport MD Work Phone: 2(590)463-820973 [place] [address] 03-08-2025 07:16-0400 Systolic blood pressure 99 mm[Hg] Dr. Bello Davenport MD Work Phone: 7(532)804-132673 [place] [address] 03-08-2025 05:49-0400 Body height 157.[address] Bello Davenport MD Work Phone: 9(623)427-656773 [place] [address] 03-08-2025 05:49-0400 Body mass index (BMI) [Ratio] 25.2 kg/m2 Dr. Bello Davenport MD Work Phone: 2(438)741-252373 [place] [address] 03-08-2025 05:49-0400 Body weight 62.[address] Bello Davenport MD Work Phone: 3(069)803-470373 [place] [address] 02-08-2025 09:41-0400 Body height 157.[address] Bello Davenport MD Work Phone: 1(051)366-440373 [place] [address] 02-08-2025 09:41-0400 Body mass index (BMI) [Ratio] 25.1 kg/m2 Dr. Bello Davenport MD Work Phone: 6(128)789-092473 [place] [address] 02-08-2025 09:41-0400 Body weight 62.[address] Bello Davenport MD Work Phone: [facility] 01-16-2025 11:01-0400 Body height 159.3 cm Janina Kalka PA-C Work Phone: [facility] 01-16-2025 11:01-0400 Body mass index (BMI) [Ratio] 24.27 kg/m2 Janina Kalka PA-C Work Phone: [facility] 01-16-2025 11:01-0400 Body weight 61.6 kg Janina Kalka PA-C Work Phone: [facility] 01-16-2025 11:01-0400 Diastolic blood pressure 80 mm[Hg] Janina Kalka PA-C Work Phone: [facility] 01-16-2025 11:01-0400 Heart rate 72 /min Janina Kalka PA-C Work Phone: [facility] 01-16-2025 11:01-0400 Systolic blood pressure 118 mm[Hg] Janina Kalka PA-C Work Phone: [facility] 01-12-2025 11:20-0400 Body mass index (BMI) [Ratio] 24.8 kg/m2 Dr. Bello Davenport MD Work Phone: [facility] 01-12-2025 11:20-0400 Body height 157.[address] Bello Davenport MD Work Phone: [facility] 01-12-2025 11:20-0400 Body weight 61.[address] Bello Davenport MD Work Phone: [facility] 01-12-2025 10:51-0400 Diastolic blood pressure 79 mm[Hg] Dr. Bello Davenport MD Work Phone: [facility] 01-12-2025 10:51-0400 Heart rate 71 /min Dr. Bello Davenport MD Work Phone: [facility] 01-12-2025 10:51-0400 SaO2% (BldA) [Mass fraction] 98 % Dr. Bello Davenport MD Work Phone: [facility] 01-12-2025 10:51-0400 Systolic blood pressure 126 mm[Hg] Dr. Bello Davenport MD Work Phone: [facility] 12-29-2024 09:38-0400 Body mass index (BMI) [Ratio] 24.43 kg/m2 Ashley Lynn MD Work Phone: [facility] 12-29-2024 09:38-0400 Body weight 62 kg Ashley Lynn MD Work Phone: [facility] 12-29-2024 09:38-0400 Diastolic blood pressure 79 mm[Hg] Ashley Lynn MD Work Phone: [facility] 12-29-2024 09:38-0400 Heart rate 71 /min Ashley Lynn MD Work Phone: [facility] 12-29-2024 09:38-0400 SaO2% (BldA) [Mass fraction] 98 % Ashley Lynn MD Work Phone: [facility] 12-29-2024 09:38-0400 Systolic blood pressure 126 mm[Hg] Ashley Lynn MD Work Phone: [facility] 12-28-2024 10:44-0400 Body mass index (BMI) [Ratio] 24.27 kg/m2 Anna Tabor MD Work Phone: [facility] 12-28-2024 10:44-0400 Body weight 61.6 kg Anna Tabor MD Work Phone: [facility] 12-28-2024 10:44-0400 Diastolic blood pressure 85 mm[Hg] Anna Tabor MD Work Phone: [facility] 12-28-2024 10:44-0400 Heart rate 82 /min Anna Tabor MD Work Phone: [facility] 12-28-2024 10:44-0400 Respiratory rate 16 /min Anna Tabro MD Work Phone: [facility] 12-28-2024 10:44-0400 Systolic blood pressure 124 mm[Hg] Anna Tabor MD Work Phone: [facility] 12-26-2024 09:08-0400 Body height 157.[address] Bello Davenport MD Work Phone: [facility] 12-26-2024 09:08-0400 Body mass index (BMI) [Ratio] 24.9 kg/m2 Dr. Bello Davenport MD Work Phone: [facility] 12-26-2024 09:08-0400 Body weight 61.[address] Bello Davenport MD Work Phone: [facility] 12-26-2024 09:08-0400 Diastolic blood pressure 74 mm[Hg] Dr. Bello Davenport MD Work Phone: [facility] 12-26-2024 09:08-0400 Systolic blood pressure 122 mm[Hg] Dr. Bello Davenport MD Work Phone: [facility] 12-21-2024 11:17-0400 Body height 159.3 cm Pulm Wstr Work Phone: [facility] 12-21-2024 11:17-0400 Body mass index (BMI) [Ratio] 23.77 kg/m2 Pulm Wstr Work Phone: [facility] 12-21-2024 11:17-0400 Body weight 60.33 kg Pulm Wstr Work Phone: [facility] 12-21-2024 11:17-0400 Diastolic blood pressure 81 mm[Hg] Pulm Wstr Work Phone: [facility] 12-21-2024 11:17-0400 Heart rate 100 /min Pulm Wstr Work Phone: [facility] 12-21-2024 11:17-0400 Respiratory rate 16 /min Pulm Wstr Work Phone: [facility] 12-21-2024 11:17-0400 SaO2% (BldA) [Mass fraction] 98 % Pulm Wstr Work Phone: [facility] 12-21-2024 11:17-0400 Systolic blood pressure 133 mm[Hg] Pulm Wstr Work Phone: [facility] 11-30-2024 10:12-0400 Body height 160.4 cm Taqueria Vieira MD Work Phone: [facility] 11-30-2024 10:12-0400 Body mass index (BMI) [Ratio] 23.75 kg/m2 Taqueria Vieira MD Work Phone: [facility] 11-30-2024 10:12-0400 Body temperature 98.01 [degF] Taqueria Vieira MD Work Phone: [facility] 11-30-2024 10:12-0400 Body weight 61.1 kg Taqueria Vieira MD Work Phone: [facility] 11-30-2024 10:12-0400 Diastolic blood pressure 83 mm[Hg] Taqueria Vieira MD Work Phone: [facility] 11-30-2024 10:12-0400 Heart rate 86 /min Taqueria Vieira MD Work Phone: [facility] 11-30-2024 10:12-0400 SaO2% (BldA) [Mass fraction] 98 % Taqueria Vieira MD Work Phone: [facility] 11-30-2024 10:12-0400 Systolic blood pressure 120 mm[Hg] Taqueria Vieira MD Work Phone: [facility] 10-05-2024 10:39-0400 Body mass index (BMI) [Ratio] 24.1 kg/m2 Dr. Bello Davenport MD Work Phone: [facility] 10-05-2024 10:39-0400 Body weight 59.[address] Bello Davenport MD Work Phone: [facility] 10-05-2024 10:39-0400 Diastolic blood pressure 80 mm[Hg] Dr. Bello Davenport MD Work Phone: [facility] 10-05-2024 10:39-0400 Heart rate 83 /min Dr. Bello Davenport MD Work Phone: [facility] 10-05-2024 10:39-0400 SaO2% (BldA) [Mass fraction] 98 % Dr. Bello Davenport MD Work Phone: [facility] 10-05-2024 10:39-0400 Systolic blood pressure 140 mm[Hg] Dr. Bello Davenport MD Work Phone: [facility] 08-31-2024 10:11-0400 Body mass index (BMI) [Ratio] 24.7 kg/m2 Dr. Bello Davenport MD Work Phone: [facility] 08-31-2024 10:11-0400 Body weight 61.[address] Bello Davenport MD Work Phone: [facility] 11-13-2023 09:47-0400 Body mass index (BMI) [Ratio] 24.03 kg/m2 Leatha Torres APRN.COLLATERAL SPECIALIST Work Phone: [facility] 11-13-2023 09:47-0400 Body temperature 97.81 [degF] Leatha Torres APRN.COLLATERAL SPECIALIST Work Phone: [facility] 11-13-2023 09:47-0400 Body weight 59.6 kg Leatha Torres APRN.COLLATERAL SPECIALIST Work Phone: [facility] 11-13-2023 09:47-0400 Diastolic blood pressure 79 mm[Hg] Leatha Torres APRN.COLLATERAL SPECIALIST Work Phone: [facility] 11-13-2023 09:47-0400 Heart rate 64 /min Leatha Torres APRN.COLLATERAL SPECIALIST Work Phone: [facility] 11-13-2023 09:47-0400 Respiratory rate 18 /min Leatha Torres APRN.COLLATERAL SPECIALIST Work Phone: [facility] 11-13-2023 09:47-0400 SaO2% (BldA) [Mass fraction] 100 % Leatha Torres APRN.COLLATERAL SPECIALIST Work Phone: [facility] 11-13-2023 09:47-0400 Systolic blood pressure 135 mm[Hg] Leatha Torres TOW TRUCK OPERATOR.COLLATERAL SPECIALIST Work Phone: [facility] 10-04-2023 15:18-0400 Body height 157.5 cm Nathalia Sroka TOW TRUCK OPERATOR.COLLATERAL SPECIALIST Work Phone: [facility] 10-04-2023 15:18-0400 Body mass index (BMI) [Ratio] 23.47 kg/m2 Nathalia Sroka TOW TRUCK OPERATOR.COLLATERAL SPECIALIST Work Phone: [facility] 10-04-2023 15:18-0400 Body temperature 98.49 [degF] Nathalia Sroka TOW TRUCK OPERATOR.COLLATERAL SPECIALIST Work Phone: [facility] 10-04-2023 15:18-0400 Body weight 58.2 kg Nathalia Sroka TOW TRUCK OPERATOR.COLLATERAL SPECIALIST Work Phone: [facility] 10-04-2023 15:18-0400 Diastolic blood pressure 83 mm[Hg] Nathalia Sroka TOW TRUCK OPERATOR.COLLATERAL SPECIALIST Work Phone: [facility] 10-04-2023 15:18-0400 Heart rate 79 /min Nathalia Sroka TOW TRUCK OPERATOR.COLLATERAL SPECIALIST Work Phone: [facility] 10-04-2023 15:18-0400 Respiratory rate 18 /min Nathalia Sroka TOW TRUCK OPERATOR.COLLATERAL SPECIALIST Work Phone: [facility] 10-04-2023 15:18-0400 SaO2% (BldA) [Mass fraction] 97 % Nathalia Sroka TOW TRUCK OPERATOR.COLLATERAL SPECIALIST Work Phone: [facility] 10-04-2023 15:18-0400 Systolic blood pressure 129 mm[Hg] Nathalia Sroka TOW TRUCK OPERATOR.COLLATERAL SPECIALIST Work Phone: [facility] 09-09-2023 10:54-0400 Body height 157.5 cm Mirella Sanchez PA-C Work Phone: [facility] 09-09-2023 10:54-0400 Body weight 58.1 kg Mirella Sanchez PA-C Work Phone: [facility] 07-22-2023 09:47-0500 Body temperature 97.5 [degF] Angel Schwyamlika TOW TRUCK OPERATOR.COLLATERAL SPECIALIST Work Phone: [facility] 07-22-2023 09:47-0500 Body weight 61.6 kg Angel Schwyamilka TOW TRUCK OPERATOR.COLLATERAL SPECIALIST Work Phone: [facility] 07-22-2023 09:47-0500 Diastolic blood pressure 94 mm[Hg] Angel Schwyamilka TOW TRUCK OPERATOR.COLLATERAL SPECIALIST Work Phone: [facility] 07-22-2023 09:47-0500 Heart rate 85 /min Angel Doerne TOW TRUCK OPERATOR.COLLATERAL SPECIALIST Work Phone: [facility] 07-22-2023 09:47-0500 Respiratory rate 16 /min Angel Dorene TOW TRUCK OPERATOR.COLLATERAL SPECIALIST Work Phone: [facility] 07-22-2023 09:47-0500 SaO2% (BldA) [Mass fraction] 97 % Angel Catherine TOW TRUCK OPERATOR.COLLATERAL SPECIALIST Work Phone: [facility] 07-22-2023 09:47-0500 Systolic blood pressure 128 mm[Hg] Angel Schwyamilka TOW TRUCK OPERATOR.COLLATERAL SPECIALIST Work Phone: [facility] 07-15-2023 13:11-0500 Body height 157.5 cm Dominique Fisher MD Work Phone: [facility] 07-15-2023 13:11-0500 Body temperature 97.59 [degF] Dominique Fisher MD Work Phone: [facility] 07-15-2023 13:11-0500 Body weight 59.6 kg Dominique Fisher MD Work Phone: [facility] 07-15-2023 13:11-0500 Diastolic blood pressure 74 mm[Hg] Dominique Fisher MD Work Phone: [facility] 07-15-2023 13:11-0500 Heart rate 83 /min Dominique Fisher MD Work Phone: [facility] 07-15-2023 13:11-0500 SaO2% (BldA) [Mass fraction] 96 % Dominique Fisher MD Work Phone: [facility] 07-15-2023 13:11-0500 Systolic blood pressure 149 mm[Hg] Dominique Fisher MD Work Phone: [facility] 05-10-2023 10:26-0500 Body temperature 98.8 [degF] Madeline Hinojosa TOW TRUCK OPERATOR.COLLATERAL SPECIALIST Work Phone: [facility] 05-10-2023 10:26-0500 Body weight 60.33 kg Madeline Hinojosa TOW TRUCK OPERATOR.COLLATERAL SPECIALIST Work Phone: [facility] 05-10-2023 10:26-0500 Diastolic blood pressure 72 mm[Hg] Madeline Hinojosa TOW TRUCK OPERATOR.COLLATERAL SPECIALIST Work Phone: [facility] 05-10-2023 10:26-0500 Heart rate 82 /min Madeline Hinojosa TOW TRUCK OPERATOR.COLLATERAL SPECIALIST Work Phone: [facility] 05-10-2023 10:26-0500 Respiratory rate 16 /min Madeline Hinojosa TOW TRUCK OPERATOR.COLLATERAL SPECIALIST Work Phone: [facility] 05-10-2023 10:26-0500 SaO2% (BldA) [Mass fraction] 97 % Madeline Hinojosa TOW TRUCK OPERATOR.COLLATERAL SPECIALIST Work Phone: [facility] 05-10-2023 10:26-0500 Systolic blood pressure 128 mm[Hg] Madeline Hinojosa TOW TRUCK OPERATOR.COLLATERAL SPECIALIST Work Phone: [facility] 05-06-2023 10:11-0500 Body height 157.5 cm Jeremy Gómez TOW TRUCK OPERATOR.COLLATERAL SPECIALIST Work Phone: [facility] 05-06-2023 10:11-0500 Body temperature 97.81 [degF] Jeremy Gómez TOW TRUCK OPERATOR.COLLATERAL SPECIALIST Work Phone: [facility] 05-06-2023 10:11-0500 Body weight 59.78 kg Jeremy Albael TOW TRUCK OPERATOR.COLLATERAL SPECIALIST Work Phone: [facility] 05-06-2023 10:11-0500 Diastolic blood pressure 76 mm[Hg] Jeremy Gómez TOW TRUCK OPERATOR.COLLATERAL SPECIALIST Work Phone: [facility] 05-06-2023 10:11-0500 Heart rate 70 /min Jeremy Gómez TOW TRUCK OPERATOR.COLLATERAL SPECIALIST Work Phone: [facility] 05-06-2023 10:11-0500 Respiratory rate 18 /min Jeremy Gómez TOW TRUCK OPERATOR.COLLATERAL SPECIALIST Work Phone: [facility] 05-06-2023 10:11-0500 SaO2% (BldA) [Mass fraction] 98 % Jeremy Albael TOW TRUCK OPERATOR.COLLATERAL SPECIALIST Work Phone: [facility] 05-06-2023 10:11-0500 Systolic blood pressure 122 mm[Hg] Jeremy Gómez TOW TRUCK OPERATOR.COLLATERAL SPECIALIST Work Phone: [facility] 12-17-2022 15:35-0400 Body height 157.48 cm Piero Ortiz Work Phone: HZ-HUMWG-Zmzgowhn 2420 DO Work Phone: 12-17-2022 15:35-0400 Body mass index (BMI) [Ratio] 23.23 kg/m2 Piero Ortiz Work Phone: QF-NWDTM-Sqivlslr 2420 DO Work Phone: 12-17-2022 15:35-0400 Body surface area Derived from formula 1.58 m2 Piero Ortiz Work Phone: MG-ZXMPH-Jtnoolgu 2420 DO Work Phone: 12-17-2022 15:35-0400 Body weight 57.61 kg Piero Ortiz Work Phone: EM-BUZJO-Uqxnleps 2420 DO Work Phone: 12-17-2022 15:35-0400 Diastolic blood pressure 62 mm[Hg] Piero Ortiz Work Phone: GF-TVGOB-Xagjrfpz 2420 DO Work Phone: 12-17-2022 15:35-0400 Systolic blood pressure 112 mm[Hg] Piero Ortiz Work Phone: HN-HTWCJ-Irkzpzmu 2420 DO Work Phone: 12-17-2022 15:35-0400 0 1 Piero Ortiz Work Phone: HO-RNVLC-Rsyhavhp 2420 DO Work Phone: Comment on above: [facility] 05-29-2022 08:22-0500 Body temperature 97.59 [degF] Lissette Kolb APRN.COLLATERAL SPECIALIST Work Phone: [facility] 05-29-2022 08:22-0500 Body weight 57.42 kg Lissette Kolb APRN.COLLATERAL SPECIALIST Work Phone: [facility] 05-29-2022 08:22-0500 Diastolic blood pressure 82 mm[Hg] Lissette Kolb APRN.COLLATERAL SPECIALIST Work Phone: [facility] 05-29-2022 08:22-0500 Heart rate 71 /min Lissette Kolb APRN.COLLATERAL SPECIALIST Work Phone: [facility] 05-29-2022 08:22-0500 Respiratory rate 18 /min Lissette Kolb APRN.COLLATERAL SPECIALIST Work Phone: [facility] 05-29-2022 08:22-0500 SaO2% (BldA) [Mass fraction] 100 % Lissette Kolb APRN.COLLATERAL SPECIALIST Work Phone: [facility] 05-29-2022 08:22-0500 Systolic blood pressure 118 mm[Hg] Lissette Kolb APRN.COLLATERAL SPECIALIST Work Phone: [facility] 03-02-2022 19:11-0400 Body temperature 100.09 [degF] Fred Her MD Work Phone: [facility] 03-02-2022 19:11-0400 Body weight 58.24 kg Fred Her MD Work Phone: [facility] 03-02-2022 19:11-0400 Diastolic blood pressure 80 mm[Hg] Fred Her MD Work Phone: [facility] 03-02-2022 19:11-0400 Heart rate 78 /min Fred Her MD Work Phone: [facility] 03-02-2022 19:11-0400 Respiratory rate 18 /min Fred Her MD Work Phone: [facility] 03-02-2022 19:11-0400 SaO2% (BldA) [Mass fraction] 98 % Fred Her MD Work Phone: [facility] 03-02-2022 19:11-0400 Systolic blood pressure 122 mm[Hg] Fred Her MD Work Phone: [facility] 12-11-2021 13:00-0400 Body height 157.48 cm Piero Ortiz Work Phone: RN-RYCAH-Vtkbgdky 2420 DO Work Phone: 12-11-2021 13:00-0400 Body mass index (BMI) [Ratio] 22.5 kg/m2 Piero Ortiz Work Phone: EN-NOBCD-Byadpddt 2420 DO Work Phone: 12-11-2021 13:00-0400 Body surface area Derived from formula 1.55 m2 Piero Ortiz Work Phone: KQ-CEMFF-Uwehjdid 2420 DO Work Phone: 12-11-2021 13:00-0400 Body weight 55.79 kg Piero Ortiz Work Phone: YO-PJEGV-Llxpxplh 2420 DO Work Phone: 12-11-2021 13:00-0400 Diastolic blood pressure 72 mm[Hg] Piero Ortiz Work Phone: LR-FUSQF-Qracasgj 2420 DO Work Phone: 12-11-2021 13:00-0400 Systolic blood pressure 118 mm[Hg] Piero Ortiz Work Phone: CE-WMDBR-Qrdqnnmm 2420 DO Work Phone: 12-11-2021 13:00-0400 0 1 Piero Ortiz Work Phone: WX-JMXQZ-Jheujpvf 2420 DO Work Phone: Comment on above: [facility] 11-06-2021 14:57-0400 Body height 157.48 cm Piero Ortiz Work Phone: [facility] [place] [address] Work Phone: 11-06-2021 14:57-0400 Body mass index (BMI) [Ratio] 22.68 kg/m2 Piero Ortiz Work Phone: [facility] [place] [address]99 Work Phone: 11-06-2021 14:57-0400 Body surface area Derived from formula 1.56 m2 Piero Ortiz Work Phone: [facility] [place] [address]99 Work Phone: 11-06-2021 14:57-0400 Body temperature 97.4 [degF] Piero Ortiz Work Phone: [facility] [place] [address]99 Work Phone: 11-06-2021 14:57-0400 Body weight 56.25 kg Piero Ortiz Work Phone: [facility] [place] [address]99 Work Phone: 11-06-2021 14:57-0400 Diastolic blood pressure 80 mm[Hg] Piero Ortiz Work Phone: [facility] [place] [address] Work Phone: 11-06-2021 14:57-0400 Heart rate 91 /min Piero Ortiz Work Phone: [facility] [place] [address] Work Phone: 11-06-2021 14:57-0400 SaO2% (BldA) [Mass fraction] 98 % Piero Ortiz Work Phone: [facility] [place] [address]99 Work Phone: 11-06-2021 14:57-0400 Systolic blood pressure 110 mm[Hg] Piero Ortiz Work Phone: [facility] [place] [address] Work Phone: 09-08-2021 11:16-0400 Body temperature 98.71 [degF] Betzy Athy PA-C Work Phone: [facility] 09-08-2021 11:16-0400 Body weight 56.06 kg Betzy Athy PA-C Work Phone: [facility] 09-08-2021 11:16-0400 Diastolic blood pressure 86 mm[Hg] Betzy Athy PA-C Work Phone: [facility] 09-08-2021 11:16-0400 Heart rate 71 /min Betzy Athy PA-C Work Phone: [facility] 09-08-2021 11:16-0400 Respiratory rate 20 /min Betzy Athy PA-C Work Phone: [facility] 09-08-2021 11:16-0400 SaO2% (BldA) [Mass fraction] 99 % Betzy Athy PA-C Work Phone: [facility] 09-08-2021 11:16-0400 Systolic blood pressure 116 mm[Hg] Betzy Athy PA-C Work Phone: [facility] 07-23-2021 09:10-0500 Body height 157.48 cm Piero Ortiz Work Phone: [facility]Scott Work Phone: 07-23-2021 09:10-0500 Body mass index (BMI) [Ratio] 22.31 kg/m2 Pireo Ortiz Work Phone: [facility] Work Phone: 07-23-2021 09:10-0500 Body surface area Derived from formula 1.55 m2 Piero Ortiz Work Phone: [facility] Work Phone: 07-23-2021 09:10-0500 Body weight 55.34 kg Piero Ortiz Work Phone: [facility] Work Phone: 07-23-2021 09:10-0500 Diastolic blood pressure 60 mm[Hg] Piero Ortiz Work Phone: [facility] Work Phone: 07-23-2021 09:10-0500 Heart rate 82 /min Piero Ortiz Work Phone: [facility] Work Phone: 07-23-2021 09:10-0500 Systolic blood pressure 98 mm[Hg] Piero Ortiz Work Phone: [facility] Work Phone: 06-30-2021 08:06-0500 Body height 157.48 cm Piero Ortiz Work Phone: MP-[facility] [employer] [address] Work Phone: 06-30-2021 08:06-0500 Body mass index (BMI) [Ratio] 23.05 kg/m2 Piero Ortiz Work Phone: MP-[facility] [place] [address] Work Phone: 06-30-2021 08:06-0500 Body surface area Derived from formula 1.57 m2 Piero Ortiz Work Phone: MP-[facility] [place] [address]99 Work Phone: 06-30-2021 08:06-0500 Body temperature 97 [degF] Piero Ortiz Work Phone: MP-[facility] [place] [address] Work Phone: 06-30-2021 08:06-0500 Body weight 57.15 kg Piero Ortiz Work Phone: MP[facility] [place] [address] Work Phone: 06-30-2021 08:06-0500 Diastolic blood pressure 80 mm[Hg] Piero Clementee Work Phone: [facility] [place] [address] Work Phone: 06-30-2021 08:06-0500 Heart rate 74 /min Piero Clementee Work Phone: [facility] [place] [address] Work Phone: 06-30-2021 08:06-0500 SaO2% (BldA) [Mass fraction] 98 % Piero Ortiz Work Phone: [facility] [place] [address] Work Phone: 06-30-2021 08:06-0500 Systolic blood pressure 100 mm[Hg] Piero Ortiz Work Phone: MP[facility] [place] [address]99 Work Phone: 03-03-2021 11:45-0400 Body height 157.48 cm Piero Clementee Work Phone: BJ-Mfxstooaaocm-Ci sman 210 Work Phone: 03-03-2021 11:45-0400 Body mass index (BMI) [Ratio] 21.4 kg/m2 Piero Joey Angel Work Phone: VS-Blhvivrdfafz-Fa sman 210 Work Phone: 03-03-2021 11:45-0400 Body surface area Derived from formula 1.52 m2 Piero Ortiz Work Phone: VR-Dthtdtfprpwm-Pz sman 210 Work Phone: 03-03-2021 11:45-0400 Body temperature 96.8 [degF] Piero Ortiz Work Phone: NH-Bbecawtfguzb-Nm sman 210 Work Phone: 03-03-2021 11:45-0400 Body weight 53.07 kg Piero Ortiz Work Phone: NN-Njrmjeatgqkc-Ec sman 210 Work Phone: 03-03-2021 11:45-0400 Diastolic blood pressure 90 mm[Hg] Piero Ortiz Work Phone: HG-Bzloyfxjzcjt-Uz sman 210 Work Phone: 03-03-2021 11:45-0400 Heart rate 89 /min Piero Ortiz Work Phone: FQ-Tqqcxweephgz-Jp sman 210 Work Phone: 03-03-2021 11:45-0400 Systolic blood pressure 137 mm[Hg] Piero Ortiz Work Phone: KB-Pumbsavyxgwf-Cf sman 210 Work Phone: 05-15-2020 10:42-0500 BMI (Body Mass Index) 20.67 kg/m2 Piero Clementee CIPRIANO-[facility]SP[facility] [place] [address] Work Phone: 05-15-2020 10:42-0500 Body Temperature 98.3 [degF] Piero Angel COTA-WSP[facility] [place] [address]99 Work Phone: 05-15-2020 10:42-0500 Body weight 51.26 kg Piero Angel CIPRIANO-[facility]SP[facility] [place] [address]99 Work Phone: 05-15-2020 10:42-0500 BP Diastolic 80 mm[Hg] Piero Angel MP-[facility]SP[facility] [place] [address]99 Work Phone: 05-15-2020 10:42-0500 BP Systolic 120 mm[Hg] Piero DELGADILLOWSPC-N [place] [address] Work Phone: 05-15-2020 10:42-0500 BSA (Body Surface Area) 1.5 m2 Piero DELGADILLOWSPC-[facility] [place] [address] Work Phone: 05-15-2020 10:42-0500 Height 157.48 cm Piero DELGADILLOWSPC-N [place] [address] Work Phone: 05-15-2020 10:42-0500 Pulse (Heart Rate) 60 /min Piero DELGADILLOWSPC-[facility] [place] [address]99 Work Phone: 05-15-2020 10:42-0500 Respiratory Rate 15 /min Piero DELGADILLOWSPC-[facility] [place] [address]99 Work Phone: 04-24-2020 10:43-0500 BMI (Body Mass Index) 20.49 kg/m2 Piero DELGADILLOWSPC-[facility] [place] [address] Work Phone: 04-24-2020 10:43-0500 Body Temperature 97.4 [degF] Piero DELGADILLOWSPC-N [place] [address] Work Phone: 04-24-2020 10:43-0500 Body weight 50.8 kg Piero DELGADILLOWSPC-N [place] [address] Work Phone: 04-24-2020 10:43-0500 BSA (Body Surface Area) 1.49 m2 Piero DELGADILLOWSPC-N [place] [address]99 Work Phone: 04-24-2020 10:43-0500 Height 157.48 cm Piero DELGADILLOWSPC-N [place] [address]99 Work Phone: 04-18-2020 17:46-0500 BMI (Body Mass Index) 20.49 kg/m2 Piero Ortiz MP-WSP[facility] [place] [address]99 Work Phone: 04-18-2020 17:46-0500 Body weight 50.8 kg Piero DELGADILLOWSPC-N [place] [address]99 Work Phone: 04-18-2020 17:46-0500 BSA (Body Surface Area) 1.49 m2 Piero Ortiz MP-WSP[facility] [place] [address]99 Work Phone: 04-18-2020 17:46-0500 Height 157.48 cm Piero Ortiz MP-[facility]SP[facility] [place] [address]99 Work Phone: 01-16-2020 17:09-0400 BMI (Body Mass Index) 21.03 kg/m2 Piero Ortiz MP-[facility] [place] [address] Work Phone: 01-16-2020 17:09-0400 Body weight 52.16 kg Piero Ortiz MP[facility] [place] [address]99 Work Phone: 01-16-2020 17:09-0400 BSA (Body Surface Area) 1.51 m2 Piero Ortiz MP-[facility] [place] [address]99 Work Phone: 01-16-2020 17:09-0400 Height 157.48 cm Piero Ortiz MP-[facility]SP[facility] [place] [address]99 Work Phone: 12-14-2019 10:41-0400 BMI (Body Mass Index) 21.03 kg/m2 Nathalia Lou MP-[facility] [place] [address] Work Phone: 12-14-2019 10:41-0400 Body Temperature 97.6 [degF] Nathalia Lou MP-[facility] [place] [address]99 Work Phone: 12-14-2019 10:41-0400 Body weight 52.16 kg Nathalia Lou MP-[facility] [place] [address]99 Work Phone: 12-14-2019 10:41-0400 BP Diastolic 80 mm[Hg] Nathalia Lou MP[facility] [place] [address]99 Work Phone: 12-14-2019 10:41-0400 BP Systolic 118 mm[Hg] Nathalia Lou MP[facility] [place] [address]99 Work Phone: 12-14-2019 10:41-0400 BSA (Body Surface Area) 1.51 m2 Nathalia Lou MP-[facility] [place] [address]99 Work Phone: 12-14-2019 10:41-0400 Height 157.48 cm Nathalia Lou MP-[facility]SP[facility] [place] [address]99 Work Phone: 12-14-2019 10:41-0400 Pulse (Heart Rate) 66 /min Nathalia Lou MP-[facility] [place] [address]99 Work Phone: 12-14-2019 10:41-0400 Respiratory Rate 16 /min Nathalia Lou MP-[facility] [place] [address]99 Work Phone: 12-13-2019 12:41-0400 BMI (Body Mass Index) 21.03 kg/m2 Nathalia Mckeonch YK-PHMEY-Wfpbpsqt 2420 DO Work Phone: 12-13-2019 12:41-0400 Body weight 52.16 kg Nathalia Mckeonch LB-BVVZU-Vjiedvz e 2420 DO Work Phone: 12-13-2019 12:41-0400 BP Diastolic 64 mm[Hg] Nathalia Lasch SD-XWLDO-Rrptirj e 2420 DO Work Phone: 12-13-2019 12:41-0400 BP Systolic 112 mm[Hg] Nathalia Lasch MJ-DRIUC-Mrsttmn e 2420 DO Work Phone: 12-13-2019 12:41-0400 BSA (Body Surface Area) 1.51 m2 Nathalia Mckeonch BZ-NPBXN-Pzrepkgn 2420 DO Work Phone: 12-13-2019 12:41-0400 Height 157.48 cm Nathalia Lasch VO-HNOEO-Ytizqzt e 2420 DO Work Phone: 12-13-2019 12:41-0400 0 1 Nathalia Lasch XI-QFZWG-Zyknogl e 2420 DO Work Phone: Comment on above: Pain Scale 11-22-2019 15:10-0400 BMI (Body Mass Index) 21.03 kg/m2 Nathaliashobha Mckeonch LD-HADUE-Cmyramrz 2420 DO Work Phone: 11-22-2019 15:10-0400 Body Temperature 97.3 [degF] Nathalia Lou YX-BLBSW-Pbvobv ke 2420 DO Work Phone: 11-22-2019 15:10-0400 Body weight 52.16 kg Nathalia Mckeonch WZ-QFJXW-Ksspedx e 2420 DO Work Phone: 11-22-2019 15:10-0400 BP Diastolic 70 mm[Hg] Nathalia Lou CO-YJPOH-Tbxvfmb e 2420 DO Work Phone: 11-22-2019 15:10-0400 BP Systolic 110 mm[Hg] Nathalia Lou QC-XVDUR-Vygwuoc e 2420 DO Work Phone: 11-22-2019 15:10-0400 BSA (Body Surface Area) 1.51 m2 Nathalia Lou XS-DKXNR-Nvxzmuts 2420 DO Work Phone: 11-22-2019 15:10-0400 Height 157.48 cm Nathalia Mckeonch JV-IZULE-Oxkpjqz e 2420 DO Work Phone: 11-22-2019 15:10-0400 Pulse (Heart Rate) 70 /min Nathalia Lou DY-YWAED-Mvie sue 2420 DO Work Phone: 11-22-2019 15:10-0400 Respiratory Rate 16 /min Nathalia Lou CD-JMHGV-Tdduty ke 2420 DO Work Phone: 10-06-2018 12:39-0400 BMI (Body Mass Index) 23.41 kg/m2 Piero Ortiz OA-OXLNI-Grjwjkum 2420 DO Work Phone: 10-06-2018 12:39-0400 BP Diastolic 70 mm[Hg] Piero Ortiz FP-PIIJC-Aecfqxq e 2420 DO Work Phone: 10-06-2018 12:39-0400 BP Systolic 110 mm[Hg] Piero RIVERA-OBGYN-[place] 2420 DO Work Phone: 10-06-2018 12:39-0400 BSA (Body Surface Area) 1.58 m2 Piero RIVERAZG-TNZSX-Bnuxqcxc 2420 DO Work Phone: 10-06-2018 12:39-0400 Height [...] Facility:[facility] Start: 04-09-2025 ambulatory Bello Chi Issac Facility:[facility] Start: 04-03-2025 End: 04-03-2025 ambulatory BELLO CHI ISSAC Facility:[facility] Start: 04-02-2025 ambulatory Bello Chi Issac Facility:[facility] Start: 03-29-2025 End: 03-29-2025 ambulatory BELLO CHI ISSAC Facility:[facility] Start: 03-28-2025 End: 03-30-2025 ambulatory Bello Chi Issac Facility:[facility] Start: 03-13-2025 End: 03-13-[address] Ally Bailey MD -[facility] Work Phone: Start: 03-13-2025 End: 03-13-[address] Bello Davenport MD Work Phone: -[facility] Start: 03-08-2025 ambulatory Bello Chi Issac Facility:[facility] Start: 03-08-2025 Non-patient / Non-visit Chuck Hancock nd, DO [facility] Start: 03-08-2025 End: 03-08-2025 Admission to same [...] Start: 02-22-2025 End: 02-22-2025 ambulatory BELLO DAVENPORT Facility:[facility] Start: 02-20-2025 ambulatory TAQUERIA Burnett DARIEL Facility :[facility] Start: 01-26-2025 End: 01-28-[address] Bello [...] Work Phone: Start: 01-18-2025 End: 01-18-2025 ambulatory [facility] Facility:[facility] Start: 01-16-2025 End: 01-16-2025 Patient encounter procedure Janina Miranda PA-C Work Phone: [facility] Comment on above: Gastroesophageal ref lux disease, unspecified whether esophagitis present (Primary Dx); LUQ discomfort; Change in bowel habits Start: 01-16-2025 End: 01-16-2025 ambulatory [facility] Facility:[facility] Start: 01-15-[address] Bello zhang MD Work Phone: -Pulmonary Rehab Work Phone: Start: 01-12-2025 End: 01-12-[address] Bello Davenport MD Work Phone: -Pulmonary Rehab Start: 01-12-2025 End: 01-12-[address] Bello Davenport MD Work Phone: -Pulmonary Rehab Work Phone: Start: 01-12-2025 End: 01-12-2025 ambulatory [facility] Facility:[facility] Start: 01-10-2025 End: 01-10-2025 Telephone encounter Anna [...] unspecified type Start: 12-29-2024 End: 12-29-2024 ambulatory [facility] Facility:[facility] Start: 12-28-2024 End: 12-28-2024 Office consultation new/estab patient 80 min Anna Tabor MD Work Phone: Geriatrics Comment on above: Brain fog (Primary D x); Psychophysiological insomnia; Post covid-19 condition, unspecified; Primary obstructive sleep apnea of Start: 12-28-2024 End: 12-28-2024 ambulatory BELLO DAVENPORT Facility:[facility] Start: 12-26-2024 End: 12-26-2024 Patient encounter procedure Lise Araya CLAIM ATTORNEY-C -[facility] Work Phone: Start: 12-26-2024 End: 12-26-2024 Patient encounter status Lise Araya CLAIM ATTORNEY-C [facility] Start: 12-26-2024 End: 12-26-[address] Bello Davenport MD Work Phone: -[facility] Start: 12-21-2024 End: 12-21-2024 Patient encounter procedure [facility] Work Phone: [facility]M [facility] Start: 12-21-2024 End: 12-21-2024 ambulatory [facility] Work Phone: [facility] Comment on above: Spirometry Start: [...] Follow-up encounter Maddie Martínez APRN.CNP Work Phone: [facility] Comment on above: Results Start: 12-15-2024 End: 12-15-2024 ambulatory BELLO CHI ISSAC Facility:[facility] Start: 12-04-2024 End: 12-06-2024 Telephone encounter Taqueria Vieira MD Work Phone: [facility] [place] Comment on above: Results Results (Lab and Narda h test results) Start: 12-01-2024 End: 01-31-2025 Follow-up encounter Taqueria Vieira MD Work Phone: [facility] [place] Start: 11-30-2024 End: 11-30-2024 ambulatory BELLO CHI ISSAC Facility: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 Start: 11-07-2024 End: 11-07-2024 Telephone encounter Taqueria Vieira MD [facility]: [facility] Comment on above: Patient Question Start: 10-05-2024 End: 10-05-2024 Patient encounter procedure Pina CALDERA -[facility] Work Phone: Start: 10-05-2024 End: 10-05-2024 ambulatory Pina Robles Facility[facility] Start: 09-27-2024 End: 09-27-2024 Follow-up encounter Ozzie Louis MD Work Phone: [facility] [place] Start: 09-25-2024 End: 09-25-2024 ambulatory BELLO CHI ISSAC Facility:[facility] Start: 09-11-2024 End: 09-13-2024 Telephone encounter Taqueria Vieira MD Work Phone: Pulmonology [facility] Comment on above: Appointment ([facility]) Start: 09-08-2024 End: 09-08-2024 ambulatory [facility] Facility:[facility] Start: 09-08-2024 End: 09-08-2024 Patient encounter procedure Ozzie Louis MD Work Phone: [facility] [place] Comment on above: Alopecia areata (Rosalva jenna Dx); Vitamin D deficiency Start: 08-31-2024 End: 08-31-[address] Shan Bolaños MD -[facility] Work Phone: Start: 08-31-2024 End: 08-31-2024 ambulatory Bello Davenport Facility[facility] Start: 08-11-2024 End: 08-11-[address] Bello Davenport MD Work Phone: [facility] Work Phone: Start: 08-11-2024 End: 08-11-[address] Bello Davenport MD -Laboratory, Phy Office 3rd Flr Start: 08-11-2024 End: 08-11-2024 ambulatory [facility] Facility:[facility] Start: 07-02-2024 End: 07-02-2024 Emergency department patient visit [facility] Facility:[facility] Start: 05-22-2024 End: 05-22-[address] Bello Davenport MD -Laboratory, Phy Office 3rd Flr Start: 05-22-2024 End: 05-22-2024 ambulatory [facility] Facility:[facility] Start: 11-14-2023 Telephone encounter Ryanne NIXON Work Phone: [facility] Comment on above: Results Start: 11-13-2023 End: 11-13-2023 Patient encounter procedure Leatha Torres APRN.CNP Work Phone: [facility] Comment on above: Burning with urinati on (Primary Dx) Start: 10-14-2023 End: 10-15-2023 ambulatory JASWANT ANAND MD Facility:[id number] Start: 10-04-2023 End: 10-04-2023 Patient encounter procedure Nathalia Nugent COLLATERAL SPECIALIST Work Phone: [facility] Comment on above: Acute otitis media, left (Primary Dx) Start: 10-01-2023 End: 10-01-2023 ambulatory Demetris Garcia PT Work Phone: [facility] Comment on above: Pain in left hip; DDD (degenerative disc disease), lumbar Start: 09-23-2023 End: 09-24-2023 ambulatory JASWANT ANAND MD Facility:[id number] Start: 09-09-2023 End: 09-09-2023 Patient encounter procedure Mirella Sanchez PA-C Work Phone: Orthopaedics Comment on above: Pain in left hip (Pr imary Dx); DDD (degenerative disc disease), lumbar Start: 09-09-2023 End: 09-09-2023 Subsequent hospital visit by physician Radio General Dina Vazquez Work Phone: Radiology Comment on above: Bilateral hip pain [ M25.551, M25.552] Start: 09-03-2023 End: 09-03-2023 ambulatory [facility] Work Phone: Start: 09-03-2023 End: 09-03-2023 Patient encounter procedure [facility]-Cat Scan, [facility] Work Phone: Start: 08-20-2023 Orders Only Mirella diaz PA-C Work Phone: Orthopaedics Comment on above: Bilateral hip pain ( Primary Dx) Start: 08-11-2023 End: 08-11-2023 ambulatory [facility] Work Phone: Start: 08-11-2023 End: 08-11-2023 Patient encounter procedure [facility]-Laboratory, Phy Office 3rd Flr Start: 08-05-2023 End: 08-05-2023 Patient encounter procedure Alli Hutchinson MD, PhD Work Phone: Otolaryngology Comment on above: Nasal congestion (Pr imary Dx); Glossitis; Central perforation of tympanic membrane of left ear Start: 07-28-2023 Telephone encounter Jeremy Ramirez APRN.COLLATERAL SPECIALIST Work Phone: [facility] Comment on above: Results Start: 07-27-2023 ambulatory JEREMY RAMIREZ Facili ty:[facility] Start: 07-27-2023 End: 07-27-2023 Subsequent hospital visit by physician [facility]amm[facility] Comment on above: Post-menopausal [Z78 .0] Start: 07-22-2023 End: 07-22-2023 Office outpatient visit 25 minutes Angel Catherine APRN.COLLATERAL SPECIALIST Work Phone: [facility] Comment on above: Acute sinusitis, rec [...] m caregiver Dominique Fisher MD Work Phone: [facility] Start: 05-12-2023 E-mail encounter fro m caregiver Consuelo Contreras APRN.COLLATERAL SPECIALIST Work Phone: [facility] Start: 05-12-2023 Patient encounter procedure Consuelo Contreras APRN.COLLATERAL SPECIALIST Work Phone: Pulmonology [facility] Comment on above: Welcome to [facility]! Start: 05-11-2023 Telephone encounter Jeremy Ramirez APRN.COLLATERAL SPECIALIST Work Phone: [facility] Comment on above: Results Start: 05-10-2023 End: 05-10-2023 Patient encounter procedure Madeline Hinojosa TOW TRUCK OPERATOR.COLLATERAL SPECIALIST Work Phone: [facility] Comment on above: Rhinosinusitis (Prim pj Dx); Acute otitis media, bilateral Start: 05-06-2023 End: 05-06-2023 Patient encounter procedure Jeremy Ramirez APRN.COLLATERAL SPECIALIST Work Phone: [facility] Comment on above: Chronic fatigue [...] 12-29-2022 Chart Update Piero guillen Work Phone: AY-IADKD-Ypfdcyrm 9089 DO Work Phone: Start: 12-24-[address] Piero Caputo acility:[id number] Start: 12-17-2022 Periodic preventive med est patient 40-64yrs Piero Ortiz Work Phone: AP-ZZVVU-Zmgrrsvu 5710 DO Work Phone: Start: 12-17-[address] Piero Caputo acility:[id number] Start: 07-28-2022 ULTRASOUND, Provider : Jorge Min, Status: Pen, Time: 9:00 AM Piero Ortiz Work Phone: MP-[facility] [place] [address] Work Phone: Start: 07-27-2022 Chart Update Piero guillen Work Phone: MP-WSPC-[facility] [place] [address] Work Phone: Start: 07-22-2022 AUDIT Piero guillen Work Phone: [facility] Work Phone: Start: 06-03-2022 Telephone encounter Taqueria Vieira MD Work Phone: [facility] [place] Comment on above: Medication Problem Start: 05-29-2022 End: 05-29-2022 Patient encounter procedure Lissette Kolb APRN.COLLATERAL SPECIALIST Work Phone: [facility] Comment on above: Rhinosinusitis (Prim pj Dx) Start: 03-03-2022 Telephone encounter Muna An APRN.COLLATERAL SPECIALIST Work Phone: [facility] Comment on above: Results Start: 03-02-2022 End: 03-02-2022 Patient encounter procedure Fred Her MD Work Phone: [facility] Comment on above: Acute COVID-19 (Prim pj Dx); Acute otitis media, right Start: 12-23-2021 Chart Update Piero guillen Work Phone: WJ-YXOJG-HKE 1200 [place] Work Phone: Start: 12-11-2021 Patient encounter procedure Piero Ortiz Work Phone: QE-SZOQV-Gylazxws 2420 DO Work Phone: Start: 12-11-2021 Periodic preventive med est patient 40-64yrs Piero Ortiz Work Phone: WW-SXRLF-Jirmgpjg 2420 DO Work Phone: Start: 11-18-2021 Chart Update Piero guillen Work Phone: MP-WSPC-[facility] [place] [address] Work Phone: Start: 11-06-2021 Office outpatient vi sit 25 minutes Piero Ortiz Work Phone: MP-WSP[facility] [place] [address] Work Phone: Start: 11-06-2021 Patient encounter procedure Piero Cook Angel Work Phone: MP-WSP[facility] [place] [address] Work Phone: Start: 09-09-2021 Telephone encounter Shahida Agarwal APRNMaliniCOLLATERAL SPECIALIST Work Phone: [facility] Comment on above: Results Start: 09-08-2021 End: 09-08-2021 Patient encounter procedure Betzy Willis PA-C Work Phone: [facility] Comment on above: Acute pansinusitis, recurrence not specified (Primary Dx) Start: 07-23-2021 Office outpatient vi sit 15 minutes Piero Ortiz Work Phone: MP-Scott Work Phone: Start: 06-30-2021 Office outpatient vi sit 15 minutes Piero Ortiz Work Phone: MP-WSPC-[facility] 2099 Work Phone: Start: 06-30-2021 Patient encounter procedure Piero Cook Angel Work Phone: MP-WSPC-[address] [place] [address] Work Phone: Start: 06-16-2021 Patient encounter procedure Piero Cook Angel Work Phone: AK-Gyjfoop-Tdukersc SJW 240 DO Work Phone: Start: 03-24-2021 Rx Renewal Piero guillen Work Phone: YB-Nycjeyb-Odarotzi SJW 240 DO Work Phone: Start: 03-24-2021 Rx Renewal Piero guillen Work Phone: ZW-Qbvukjwjrzrt-Olaffk 210 Work Phone: Start: 01-14-2021 Rx Renewal Piero guillen Work Phone: DK-Liphenixlsdi-Ecichp 210 Work Phone: Start: 08-03-2021 Chart Update Piero guillen Work Phone: MT-FKFXJ-Jxzxyhfy 2420 DO Work Phone: Start: 12-17-2020 Rx Renewal Piero guillen Work Phone: RU-Moujwxgernoo-Lkwdou 200 Work Phone: Start: 12-12-2020 Chart Update Piero guillen Work Phone: OB-QUQXA-DDT 1200 [place] Work Phone: Start: 12-12-2020 Patient encounter procedure Piero Ortiz Work Phone: UN-EEPLR-Uxxqpbut 2420 DO Work Phone: Start: 12-12-2020 Periodic preventive med est patient 40-64yrs Piero Clementee Work Phone: WF-UHDDV-Cqsrlzdk 2420 DO Work Phone: Start: 11-20-2020 Office outpatient vi sit 15 minutes Piero Clementee Work Phone: LG-Znxunkzjkhyx-Mbooxkn e Work Phone: Start: 11-20-2020 NPV, Provider: Cash Ochoa, Status: Pen, Time: 10:00 AM Piero Cook Angel Work Phone: CR-Blifbyzwqktc-Fhfgza 210 Work Phone: Start: 11-19-2020 AUDIT Piero Clemente charmaine Work Phone: OU-Gypacubpfhzw-Yxbaoi 210 Work Phone: Start: 05-15-2020 Patient encounter procedure Piero Clementecharmaine DELGADILLOWSPC-[address] [place] [address] Work Phone: Start: 04-24-2020 Patient encounter procedure Piero Clementecharmaine DELGADILLOWSPC-[address] [place] [address] Work Phone: Start: 04-18-2020 Patient encounter procedure Piero Clementecharmaine DELGADILLOWSPC-[address] [place] [address] Work Phone: Start: 02-16-2020 Patient encounter procedure Piero Ortiz MP-WSPC-[address] [place] [address] Work Phone: Start: 01-16-2020 Patient encounter procedure Piero Ortiz MP-WSPC-[address] [place] [address] Work Phone: Start: 12-14-2019 Patient encounter procedure Nathalia Lou MP-WSPC-[address] [place] [address] Work Phone: Start: 12-13-2019 Patient encounter procedure Nathalia Lou NQ-KHDOC-Vrrwvczf 2420 DO Work Phone: Start: 11-22-2019 Patient encounter procedure Nathalia Lou NS-QTBFW-Jwdqidat 2420 DO Work Phone: Start: 09-04-2019 Patient encounter procedure Nathalia Lou KW-NADCM-Llkaaetm 2420 DO Work Phone: Start: 06-01-2019 Patient encounter procedure Piero Ortiz MPMW-Juomzehtlfaazz-Ixuwi angely SJW Work Phone: Start: 05-15-2019 Patient encounter procedure Piero Mcdonoughsscharmaine COTAIN-Rmyxlluzvozyhx-Zyiyn angely SJW Work Phone: Start: 05-01-2019 Patient encounter procedure Piero Angel TB-Pbiuxwtykrjgmh-Inxyg angely SJW Work Phone: Start: 03-02-2019 Patient encounter procedure Piero Ortiz MPEX-Jiltucpwitbdiy-Upkop angely SJW Work Phone: Start: 02-15-2019 Patient encounter procedure Piero Angel XE-Ftcevvhavrndjs-Ogfex angely SJW Work Phone: Start: 10-06-2018 Patient encounter procedure Piero Mcdonoughsscharmaine RIVERABI-YAUUM-Ngtvhjwn 6960 DO Work Phone: Start: 10-05-2018 Patient encounter procedure Piero RIVERAUS-ZWGCH-Yobctbxt 2420 DO Work Phone: Start: 09-07-2018 Patient encounter procedure Piero Ortiz ON-XBVUM-Flaaenon 2420 DO Work Phone: Start: 08-30-2018 Patient encounter procedure Nathalia Lou Facility:[facility] Start: 08-22-2018 Patient encounter procedure Mesha Garcia Facility:[facility] Start: 08-09-2018 Patient encounter procedure Piero RIVERAXQ-WZYGF-Eokmktdt 2420 DO Work Phone: Start: 05-17-2018 Patient encounter procedure Piero RIVERAAV-QQXHP-Tzyzwtuo 2420 DO Work Phone: Start: 05-06-2018 Patient encounter procedure Piero RIVERAFB-KCVNV-Omhwnufv 2420 DO Work Phone: Start: 04-08-2018 Patient encounter procedure Piero RIVERATH-UALYX-Vmauruol 2420 DO Work Phone: Start: 03-28-2018 Patient encounter procedure Piero RIVERAUX-HRLAY-Jkynbjqa 2420 DO Work Phone: Start: 01-25-2018 Patient encounter procedure Piero RIVERAFJ-BELHQ-Dexusuzd 2420 DO Work Phone: Start: 01-19-2018 Patient encounter procedure Piero RIVERAUU-NSJQN-Nbjdfmqy 2420 DO Work Phone: Start: 11-28-2017 Patient encounter procedure SJ Miscellaneous Facility:[facility] Start: 11-12-2017 End: 11-27-2017 Patient encounter procedure SJ Miscellaneous Facility:[facility] Start: 10-20-2017 End: 10-28-2017 Patient encounter procedure SJ Miscellaneous Facility:[facility] Start: 10-07-2017 Patient encounter procedure Piero RIVERAXJ-LJFCD-Weyornux 2420 DO Work Phone: Start: 10-06-2017 Patient encounter procedure Piero RIVERAOD-LYESA-Vosagvyf 2420 DO Work Phone: Start: 07-30-2017 Patient encounter procedure Piero RIVERASM-HANYZ-Xelxyzpt 2420 DO Work Phone: Start: 01-14-2017 Patient encounter procedure Piero Lucio 2420 DO Work Phone: Start: 10-19-2016 Patient encounter procedure Piero Lucio 2420 DO Work Phone: Patient encounter status Piero Ortiz Work Phone: [id number] 210 Work Phone: Procedures Date Procedure Procedure [...] 07-22-2023 STREP A MOLECULAR (POC) Angel Catherine APRN.COLLATERAL SPECIALIST Work Phone: Start: 07-15-2023 Us soft tissue head & neck real time imge marce Fisher MD Work Phone: Start: 05-07-2023 Lipid 1996 panel - Serum or Plasma Stacia Hinojosa TOW TRUCK OPERATOR.COLLATERAL SPECIALIST Work Phone: Start: 11-07-2021 Lipid 1996 panel - Serum or Plasma Mary Ann Ramirez TOW TRUCK OPERATOR.COLLATERAL SPECIALIST Work Phone: Start: 01-27-2021 Colonoscopy Dominique Fisher MD Work Phone: Start: 04-18-2020 Coronavirus 2019 RNA by PCR, Symptomatic Piero Ortiz Start: 01-18-2020 Colonoscopy Jeremy Gómez TOW TRUCK OPERATOR.COLLATERAL SPECIALIST Work Phone: Start: 12-11-2019 MG Breast screening Nathalia Lou Start: 08-15-2018 MG Breast screening Piero Ortiz Start: 08-09-2018 Colonoscopy Piero Ortiz Start: 03-09-2007 Mammography Betzy Willis PA-C Work Phone: History of Dilation And Curettage Piero Ortiz History of Ear Surgery Addy Ortiz Plan of Treatment Date Care Activity Detail Author Start: 07-02-2034 Urine microalbumin profile DTaP,Tdap,Td Vaccine (3 - Td or Tdap) [facility] Start: 05-07-2028 Lipid 1996 panel - Serum or Plasma Lipid Screening [facility] Start: 05-07-2028 Lipid panel Lipid Screening [facility] Start: 12-01-2027 Diabetes Screening Diabetes Screenin [facility] Start: 08-27-2027 Screening for malign ant neoplasm of colon Cologuard (FIT-DNA) [facility] Start: 11-07-2026 Lipid 1996 panel - Serum or Plasma Lipid Screening [facility] Start: 05-07-2026 Diabetes Screening Diabetes Screenin g [facility] Start: 01-27-2026 Screening for malign ant neoplasm of colon [facility] Start: 06-05-2025 End: 06-05-2025 Patient encounter procedure 06/05/2025 1:00 PM EST Office Visit Family Medicine Catherine [address] [place], [place] [id number] Taqueria Vieira MD [address] [facility] [place] [phone] est care [facility] Comment on above: est care Start: 05-02-2025 End: 05-02-2025 Patient encounter procedure 05/02/2025 2:20 PM EST Office Visit Cardiology [address] [facility] [place] [address] Marlon Maria MD [address] [place], [place] [id number] Post covid-19 condition, 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 With me via virtual visit Pulmonary Medicine Comment on above: Return in about 3 mo nths (around 03/31/2025). With me via virtual visit Start: 03-26-2025 Registered Recurring Registered Recu rring -Pulmonary Rehab Work Phone: Start: 03-08-2025 Egd transoral biopsy single/multiple EGD BIOPSY SINGLE/MULTIPLE [facility] Start: 03-08-2025 [facility] Start: 02-22-2025 End: 02-22-2025 Patient encounter procedure 02/22/2025 9:00 AM EDT Office Visit [facility] [address] [place] [address] Taqueria Vieira MD [address] [place] [address] 2 month recover follow up [facility] Comment on above: 2 month recover foll ow up Start: 02-20-2025 End: 02-20-2025 Patient encounter procedure 02/20/2025 10:00 AM EDT Appointment Cardiology Lab [address] [place] [address] ECHO Cardiology Lab Comment on above: ECHO Start: 02-08-2025 End: 02-08-2025 Patient encounter procedure 02/08/2025 11:00 AM EDT Appointment Ambulatory Surgery [address] [place] [address] Shelia Lambert MD [address] [place] [address] EGD DIAGNOSTIC Ambulatory Surgery Comment on above: EGD DIAGNOSTIC Start: 01-29-2025 Influenza vaccination Influenza Vacc ine (#1) [facility] Start: 01-18-2025 MG Breast - bilatera l Screening [facility] Start: 01-18-2025 SCRN MAMM (CAD)W/KHRIS O BILAT SCRN MAMM (CAD)W/BEBA BILAT [facility] Start: 01-17-2025 Colonoscopy Colonoscopy [facility] Start: 01-17-2025 Colorectal Cancer Screening Colorectal Cancer Screening [facility] Start: 01-17-2025 Screening for malign ant neoplasm of colon [facility] Start: 01-16-2025 End: 01-16-2025 Patient encounter procedure 01/16/2025 11:20 AM EDT Office Visit Gastroenterology [facility] [address] [facility] [place] [phone] Janina Miranda PA-C [address] [facility] [address] Post covid-19 condition, unspecified [U09.9] Gastroenterology [facility] Comment on above: Post covid-19 condit ion, unspecified [U09.9] Start: 01-12-2025 End: 01-12-2025 Patient encounter procedure 01/12/2025 12:00 PM EDT Appointment Cardiology Lab [address] [place] [address] Shortness of breath [R06.02] Cardiology Lab Comment on above: Shortness of breath [R06.02] Start: 12-29-2024 End: 12-29-2024 Patient encounter procedure 12/29/2024 9:45 AM EDT Office Visit Pulmonary Medicine [address] [place] [address] [place] [address] [place] [address] PFT's 12/07/2024, Post covid-19 condition, unspecified [U09.9] Pulmonary Medicine Comment on above: PFT's 12/07/2024, Pos t covid-19 condition, unspecified [U09.9] Start: 12-28-2024 End: 12-28-2024 Patient encounter procedure 12/28/2024 10:30 AM EDT Office Visit Geriatrics [address] [place] [address] Anna Tabor MD [address] [place] [address] Post covid-19 condition, unspecified [U09.9] Geriatrics Comment on above: Post covid-19 condit ion, unspecified [U09.9] Start: 12-21-2024 End: 12-21-2024 ambulatory PULM LAB [facility] Comment on above: Shortness of breath [R06.02] Start: 12-20-2024 End: 12-20-2024 Patient encounter procedure 12/20/2024 2:40 PM EDT Office Visit OB/Gynecology [address] [place] [address] Autumn Flowers MD [address] [place] [address] annual OB/Gynecology Comment on above: annual Start: 12-18-2024 End: 12-18-2024 Patient encounter procedure 12/18/2024 2:40 PM EDT Office Visit OB/Gynecology [address] [place] [address] Autumn Flowers MD [address] [place] [address] annual OB/Gynecology Comment on above: annual Start: 12-14-2024 End: 12-14-2024 ambulatory 12/14/2024 10:00 AM EDT [facility] [address] [facility] [place] [address] Jeremy Schaeffer MD [address] [place] [address] Fatigue, unspecified type [R53.83] [facility] Comment on above: Fatigue, unspecified type [R53.83] Start: 12-07-2024 End: 12-07-2024 ambulatory PULM LAB [facility] Comment on above: Shortness of breath [R06.02] Start: 11-30-2024 End: 03-01-2025 25-hydroxyvitamin D3 [Mass/volume] in Serum or Plasma [facility] Comment on above: Expected: 11/30/2024 , Expires: 03/01/2025 Start: 11-30-2024 End: 03-01-2025 C reactive protein [Mass/volume] in Serum or Plasma [facility] Comment on above: Expected: 11/30/2024 , Expires: 03/01/2025 Start: 11-30-2024 End: 03-01-2025 Cobalamin (Vitamin B12) [Mass/volume] in Serum or Plasma [facility] Comment on above: Expected: 11/30/2024 , Expires: 03/01/2025 Start: 11-30-2024 End: 03-01-2025 Comprehensive metabolic 2000 panel - Serum or Plasma [facility] Work Phone: Comment on above: Expected: 11/30/2024 , Expires: 03/01/2025 Start: 11-30-2024 End: 03-01-2025 Ferritin [Mass/volume] in Serum or Plasma [facility] Comment on above: Expected: 11/30/2024 , Expires: 03/01/2025 Start: 11-30-2024 End: 03-01-2025 Folate [Mass/volume] in Serum or Plasma [facility] Comment on above: Expected: 11/30/2024 , Expires: 03/01/2025 Start: 11-30-2024 End: 03-01-2025 Natriuretic peptide.B prohormone N-Terminal [Mass/volume] in Serum or Plasma [facility] Comment on above: Expected: 11/30/2024 , Expires: 03/01/2025 Start: 11-30-2024 End: 03-01-2025 OMEGACHECK [facility] Comment on above: Expected: 11/30/2024 , Expires: 03/01/2025 Start: 11-30-2024 End: 03-01-2025 Thyrotropin [Units/volume] in Serum or Plasma [facility] Comment on above: Expected: 11/30/2024 , Expires: 03/01/2025 Start: 11-30-2024 End: 03-01-2025 TRACE ELEMENTS/TPN [facility] Comment on above: Expected: 11/30/2024 , Expires: 03/01/2025 Start: 11-30-2024 End: 11-30-2024 Patient encounter procedure 11/30/2024 10:20 AM EDT Office Visit [facility] [address] [place] [address] Taqueria Vieira MD [address] [place], [place] [id number] recover follow up [facility] Comment on above: recover follow up Start: 11-07-2024 Diabetes Screening Diabetes Screenin g [facility] Start: 10-19-2024 End: 10-19-2024 Patient encounter procedure 10/19/2024 10:00 AM EDT Office Visit [facility] [address] [place] [address] Taqueria Vieira MD [address] [place], [place] [phone] recover follow up [facility] Comment on above: recover follow up Start: 09-08-2024 End: 12-08-2024 25-hydroxyvitamin D3 [Mass/volume] in Serum or Plasma VITAMIN D 25 HYDROXY Lab Routine Alopecia areata Vitamin D deficiency Expected: 09/08/2024, Expires: 12/08/2024 [facility] Work Phone: Comment on above: Expected: 09/08/2024 , Expires: 12/08/2024 Start: 07-13-2024 End: 08-19-2024 US Thyroid gland US THYROID/PARATHYROID Radiology Routine Nontoxic multinodular goiter Expected: 07/13/2024, Expires: 08/19/2024 [facility] Work Phone: Comment on above: Expected: 07/13/2024 , Expires: 08/19/2024 Start: 06-08-2024 Medicare Annual Wellness Visit Medicare Annual Wellness Visit [facility] Start: 06-08-2024 Pneumococcal Vaccine : 65+ (1 of 1 - PCV) Pneumococcal Vaccine: 65+ (1 of 1 - PCV) [facility] Comment on above: Postponed from 05/28 (Declined at this time) Start: 06-08-2024 RSV Vaccine (1 - 1-d ose 60+ series) RSV Vaccine (1 - 1-dose 60+ series) [facility] Comment on above: Postponed from 05/28 (Declined at this time) Start: 06-08-2024 Shingrix Vaccine (1 of 2) Shingrix Vaccine (1 of 2) [facility] Comment on above: Postponed from 05/28 (Declined at this time) Start: 05-31-2024 Advance Directive Discussion Advance Directive Discussion [facility] Start: 01-30-2024 Covid-19 Vaccine ( season) Covid-19 Vaccine ( season) [facility] Start: 01-30-2024 Covid-19 Vaccine ( season) Covid-19 Vaccine () [facility] Start: 01-30-2024 Influenza vaccination Influenza Vacc ine (#1) [facility] Start: 12-25-2023 Screening for malign ant neoplasm of breast Mammogram Screening [facility] Start: 12-17-2023 Mammography Mammogram Screening [facility] Start: 12-17-2023 Screening for malign ant neoplasm of breast Mammogram Screening [facility] Start: 11-25-2023 Urine microalbumin profile DTaP,Tdap,Td Vaccine (2 - Td or Tdap) [facility] Start: 11-06-2023 Shingrix Vaccine (2 of 2) Shingrix Vaccine (2 of 2) [facility] Start: 07-21-2023 End: 10-20-2023 Thyrotropin [Units/volume] in Serum or Plasma TSH BLD Lab Routine Nontoxic multinodular goiter Expected: 07/21/2023, Expires: 10/20/2023 [facility] Work Phone: Comment on above: Expected: 07/21/2023 , Expires: 10/20/2023 Start: 07-06-2023 Covid-19 Vaccine () Covid-19 Vaccine () [facility] Start: 2023 Screening for osteoporosis Bone Density Screening [facility] Start: 05-06-2023 End: 08-05-2023 25-hydroxyvitamin D3 [Mass/volume] in Serum or Plasma VITAMIN D 25 HYDROXY Lab Routine Vitamin D deficiency Expected: 05/06/2023, Expires: 08/05/2023 [facility] Work Phone: Comment on above: Expected: 05/06/2023 , Expires: 08/05/2023 Start: 05-06-2023 End: 08-05-2023 C reactive protein [Mass/volume] in Serum or Plasma C-REACTIVE PROTEIN (CRP) Lab Routine Arthralgia, unspecified joint Expected: 05/06/2023, Expires: 08/05/2023 [facility] Work Phone: Comment on above: Expected: 05/06/2023 , Expires: 08/05/2023 Start: 05-06-2023 End: 08-05-2023 CBC panel - Blood by Automated count CBC Lab Routine Screening for deficiency anemia Expected: 05/06/2023, Expires: 08/05/2023 [facility] Work Phone: Comment on above: Expected: 05/06/2023 , Expires: 08/05/2023 Start: 05-06-2023 End: 08-05-2023 Comprehensive metabolic 2000 panel - Serum or Plasma COMP METABOLIC PANEL Lab Routine Encounter for screening for diabetes mellitus Expected: 05/06/2023, Expires: 08/05/2023 [facility] Work Phone: Comment on above: Expected: 05/06/2023 , Expires: 08/05/2023 Start: 05-06-2023 End: 08-05-2023 Erythrocyte sedimentation rate SED RATE WESTERGREN Lab Routine Arthralgia, unspecified joint Expected: 05/06/2023, Expires: 08/05/2023 [facility] Work Phone: Comment on above: Expected: 05/06/2023 , Expires: 08/05/2023 Start: 05-06-2023 End: 08-05-2023 Hepatitis C virus Ab [Presence] in Serum HEPATITIS C ANTIBODY IA WITH CONFIRMATION Lab Routine Encounter for hepatitis C screening test for low risk patient Expected: 05/06/2023, Expires: 08/05/2023 [facility] Work Phone: Comment on above: Expected: 05/06/2023 , Expires: 08/05/2023 Start: 05-06-2023 End: 08-05-2023 HIV 1+2 Ab [Presence] in Serum or Plasma by Immunoassay HIV 1 2 COMBO(AG/AB),WITH REFLEX TO DIFFERENTIATION Lab Routine Screening for HIV (human immunodeficiency virus) Expected: 05/06/2023, Expires: 08/05/2023 [facility] Work Phone: Comment on above: Expected: 05/06/2023 , Expires: 08/05/2023 Start: 05-06-2023 End: 08-05-2023 Lipid 1996 panel - Serum or Plasma LIPID PANEL BASIC Lab Routine Screening for lipid disorders Expected: 05/06/2023, Expires: 08/05/2023 [facility] Work Phone: Comment on above: Expected: 05/06/2023 , Expires: 08/05/2023 Start: 05-06-2023 End: 08-05-2023 Rheumatoid factor [Units/volume] in Serum or Plasma RHEUMATOID FACTOR BL Lab Routine Arthralgia, unspecified joint Expected: 05/06/2023, Expires: 08/05/2023 [facility] Work Phone: Comment on above: Expected: 05/06/2023 , Expires: 08/05/2023 Start: 05-06-2023 End: 08-05-2023 Thyrotropin [Units/volume] in Serum or Plasma TSH BLD Lab Routine Screening for thyroid disorder Expected: 05/06/2023, Expires: 08/05/2023 [facility] Work Phone: Comment on above: Expected: 05/06/2023 , Expires: 08/05/2023 Start: 05-06-2023 End: 08-05-2023 Thyroxine (T4) free [Mass/volume] in Serum or Plasma T4 FREE/FREE THYROX Lab Routine Screening for thyroid disorder Expected: 05/06/2023, Expires: 08/05/2023 [facility] Work Phone: Comment on above: Expected: 05/06/2023 , Expires: 08/05/2023 Start: 05-06-2023 End: 08-05-2023 Urinalysis complete panel - Urine URINALYSIS WITH MICROSCOPIC, REFLEX CULTURE Lab Routine Screening for blood or protein in urine Expected: 05/06/2023, Expires: 08/05/2023 [facility] Work Phone: Comment on above: Expected: 05/06/2023 , Expires: 08/05/2023 Start: 07-28-2022 ULTRASOUND, Provider : Jorge Chavez, Status: Johnathan, Time: 9:00 AM ULTRASOUND, Provider: Jorge Chavez, Status: Johnathan, Time: 9:00 AM Saul Work Phone: Start: 07-28-2022 ULTRASOUND, Provider : Jorge Min , Status: Johnathan, Time: 9:00 AM ULTRASOUND, Provider: Mannie Min, Status: Johnathan, Time: 9:00 AM [facility] Work Phone: Start: 05-31-2022 [facility] Start: 03-02-2022 End: 03-16-2022 SARS-CoV-2 (COVID-19) RNA [Presence] in Respiratory specimen by ENID with probe detection [facility] Work Phone: Comment on above: Expected: 03/02/2022 , Expires: 03/16/2022 Start: 01-29-2022 Influenza vaccination INFLUENZA (#1) [facility] Start: 12-11-2021 Patient encounter procedure ANNUAL, Provider: Nathalia Lou, Status: Pen, Time: 1:00 PM [facility] [place] [address] Work Phone: Start: 09-08-2021 End: 09-22-2021 Influenza virus A and B RNA and SARS-CoV-2 (COVID-19) N gene panel - Respiratory specimen by ENID with probe detection [facility] Work Phone: Comment on above: Expected: 09/08/2021 , Expires: 09/22/2021 Start: 07-23-2021 ULTRASOUND, Provider : Jorge Chavez, Status: Pen, Time: 9:00 AM ULTRASOUND, Provider: Jorge Chavez, Status: Pen, Time: 9:00 AM TH-Cnmhyhz-Olicdgzi SJW 240 DO Work Phone: Start: 06-25-2021 ULTRASOUND, Provider : Jorge Chavez, Status: Pen, Time: 10:00 AM ULTRASOUND, Provider: Jorge Chavez, Status: Pen, Time: 10:00 AM FN-Ekhjfumeknvf-Rrtuql 210 Work Phone: Start: 06-16-2021 VIRFUVHOME, Provider : Tameka Sampson, Status: Pen, Time: 3:20 PM VIRFUVHOME, Provider: Tameka Sampson, Status: Pen, Time: 3:20 PM AK-Tommmjeburyo-Tkscba 210 Work Phone: Start: 05-31-2021 DEPRESSION ASSESSMENT DEPRESSION ASS ESSMENT [facility] Start: 01-22-2021 NPV, Provider: Tameka Sampson, Status: Pen, Time: 11:00 AM NPV, Provider: Tameka Sampson, Status: Pen, Time: 11:00 AM RY-Mnybckzydygw-Lnrfwg 210 Work Phone: Start: 01-13-2021 [id number], Provider : Km Saravia, Status: Pen, Time: 11:30 AM [id number], Provider: Km Saravia, Status: Pen, Time: 11:30 AM AH-Acxjdjctvxyx-Hxonwg ke Work Phone: Start: 12-12-2020 Patient encounter procedure ANNUAL, Provider: Nathalia Lou, Status: Pen, Time: 11:30 AM PV-Bpfhxigfgvyr-Ejteqy 210 Work Phone: Start: 08-10-2019 Colonoscopy COLONOSCOPY [facility] Start: 08-10-2019 COLORECTAL CANCER SCREENING COLORECTAL CANCER SCREENING [facility] Start: 2018 RSV Vaccine (1 - 1-d ose 60+ series) RSV Vaccine (1 - 1-dose 60+ series) [facility] Start: 2008 Pneumococcal Vaccine : 50+ (1 of 1 - PCV) Pneumococcal Vaccine: 50+ (1 of 1 - PCV) [facility] Start: 2008 SHINGRIX VACCINE (1 of 2) SHINGRIX VACCINE (1 of 2) [facility] Start: 03-09-2008 Mammography MAMMOGRAM [facility] Start: 2003 COLOGUARD (FIT-DNA) COLOGUARD (FIT-D NA) [facility] Start: [address] COLONOGRAPHY [facility] Start: 2003 DIABETES SCREEN DIABETES SCREEN [facility] Start: 2003 FECAL OCCULT BLOOD FECAL OCCULT BLOO D [facility] Start: 2003 LIPID SCREEN LIPID SCREEN [facility] Start: 2003 Screening for malign ant neoplasm of colon [facility] Start: 2003 SIGMOIDOSCOPY SIGMOIDOSCOPY [facility] Start: 1988 HPV TESTING HPV TESTING [facility] Start: 1988 Screening for malign ant neoplasm of cervix HPV Testing [facility] Start: 1979 PAP TESTING PAP TESTING [facility] Start: 1979 Screening for malign ant neoplasm of cervix Pap Testing [facility] Start: 1977 Urine microalbumin profile DTAP,TDAP,TD (1 - Tdap) [facility] Start: 1976 Anxiety Screening Anxiety Screening [facility] Start: 1976 Depression Screening Depression Scre daniel [facility] Start: 1976 HEPATITIS C SCREENING HEPATITIS C SC RAND [facility] Start: 1976 HIV SCREENING HIV SCREENING [facility] Start: 1970 Adult depression screening assessment DEPRESSION SCREENING [facility] BACH SCREENING TEST BACH SCREENI NG TEST Procedures Routine Brain fog Ordered: 11/30/2024 [facility] Comment on above: Ordered: 11/30/2024 Bacteria identified in Urine by Culture URINE CULTURE Microbiology Routine Burning with urination Ordered: 11/13/2023 [facility] Comment on above: Ordered: 11/13/2023 CYTOLOGY NON-HEAT WELDER PLASTICS CYTOLOGY NON-GY N Lab Routine Multiple thyroid nodules Ordered: 07/15/2023 [facility] Work Phone: Comment on above: Ordered: 07/15/2023 DXA Skeletal system.axial Views for bone density DXA-AXIAL SKELETON Radiology Routine Post-menopausal 07/27/2023 10:18 AM EST [facility] Work Phone: End: 06-04-2024 DXA-AXIAL SKELETON DXA-AXIAL SKELETON Radiology Routine Post-menopausal 1 Occurrences starting 05/06/2023 until 06/04/2024 [facility] Work Phone: Comment on above: 1 Occurrences starti ng 05/06/2023 until 06/04/2024 End: 11-30-2025 ECG COMPLETE ECG COMPLETE ECG Routine Shortness of breath 1 Occurrences starting 11/30/2024 until 11/30/2025 [facility] Comment on above: 1 Occurrences starti ng 11/30/2024 until 11/30/2025 End: 11-30-2025 Echocardiography ECHO Cardiology Routine Shortness of breath 1 Occurrences starting 11/30/2024 until 11/30/2025 [facility] Comment on above: 1 Occurrences starti ng 11/30/2024 until 11/30/2025 End: 01-16-2026 EGD DIAGNOSTIC EGD DIAGNOSTIC Endoscopy Routine Gastroesophageal reflux disease, unspecified whether esophagitis present LUQ discomfort 1 Occurrences starting 01/16/2025 until 01/16/2026 [facility] Work Phone: Comment on above: 1 Occurrences starti ng 01/16/2025 until 01/16/2026 ENDO THYROID/LYMPH N ODE FNA ENDO THYROID/LYMPH NODE FNA Procedures Routine Multiple thyroid nodules Ordered: 07/15/2023 [facility] Work Phone: Comment on above: Ordered: 07/15/2023 End: 12-30-2025 LUNG DIFFUSION CAPACITY (DLCO) LUNG DIFFUSION CAPACITY (DLCO) PFT Routine Shortness of breath 1 Occurrences starting 11/30/2024 until 12/30/2025 [facility] Comment on above: 1 Occurrences starti ng 11/30/2024 until 12/30/2025 LUNG DIFFUSION CAPAC ITY (DLCO) LUNG DIFFUSION CAPACITY (DLCO) PFT Routine Shortness of breath 12/21/2024 10:08 AM EDT [facility] Work Phone: End: 12-30-2025 LUNG VOLUMES LUNG VOLUMES PFT Routine Shortness of breath 1 Occurrences starting 11/30/2024 until 12/30/2025 [facility] Comment on above: 1 Occurrences starti ng 11/30/2024 until 12/30/2025 LUNG VOLUMES LUNG VOLUMES PFT Routine Shortness of breath 12/21/2024 10:08 AM EDT [facility] Work Phone: MG Breast - bilatera l Screening [facility] End: 12-28-2025 Polysomnogram POLYSOMNOGRAM (PSG) Procedures Routine Primary obstructive sleep apnea of 1 Occurrences starting 12/28/2024 until 12/28/2025 [facility] Work Phone: Comment on above: 1 Occurrences starti ng 12/28/2024 until 12/28/2025 Pulmonary rehabilitation pro CONSULT PULMONARY REHABILITATION PROGRAM Procedures Routine Dyspnea and respiratory abnormalities Post-acute sequelae of COVID-19 (PASC) Ordered: 12/29/2024 [facility] Work Phone: Comment on above: Ordered: 12/29/2024 End: 12-30-2025 SIX MINUTE WALK SIX MINUTE WALK PFT Routine Shortness of breath 1 Occurrences starting 11/30/2024 until 12/30/2025 [facility] Comment on above: 1 Occurrences starti ng 11/30/2024 until 12/30/2025 End: 12-30-2025 SPIROMETRY - BASELINE AND POST DILATOR SPIROMETRY - BASELINE AND POST DILATOR PFT Routine Shortness of breath 1 Occurrences starting 11/30/2024 until 12/30/2025 [facility] Comment on above: 1 Occurrences starti ng 11/30/2024 until 12/30/2025 SPIROMETRY - BASELIN E AND POST DILATOR SPIROMETRY - BASELINE AND POST DILATOR PFT Routine Shortness of breath 12/21/2024 10:08 AM EDT [facility] Work Phone: UA DIP, URINE (POC) UA DIP, URIN E (POC) Lab Routine Burning with urination Ordered: 11/13/2023 [facility] Work Phone: Comment on above: Ordered: 11/13/2023 US Kidney - bilatera l and Urinary bladder [facility] End: 06-04-2024 Us soft tissue head & neck real time imge docm US THYROID/PARATHYROID Radiology Routine Thyroid nodule 1 Occurrences starting 05/06/2023 until 06/04/2024 [facility] Work Phone: Comment on above: 1 Occurrences starti ng 05/06/2023 until 06/04/2024 End: 09-18-2024 XR HIP BILATERAL 5V PEL/AP/LAT EACH HIP XR HIP BILATERAL 5V PEL/AP/LAT EACH HIP Radiology Routine Bilateral hip pain 1 Occurrences starting 08/20/2023 until 09/18/2024 [facility] Work Phone: Comment on above: 1 Occurrences starti ng 08/20/2023 until 09/18/2024 UI-NTTGB-Sotevx ke 2420 DO Work Phone: [facility] NEGATED: Highlighted row has been ruled out! Planned Goals not documented PM-GSYRO-Vzgygtjn 2420 DO Work Phone: Immunizations Immunization Date Immunization Notes Care Provider Fa [facility] 07-02-2024 tetanus toxoid, redu ezequiel diphtheria toxoid, and acellular pertussis vaccine, adsorbed Ozzie Louis MD Work Phone: [facility] 02-04-2024 influenza virus vaccine, unspecified formulation Taqueria Vieira MD Work Phone: [facility] 04-30-2023 influenza virus vaccine, unspecified formulation [employer] Work Phone: [facility] 03-24-2022 influenza, injectabl e, quadrivalent, preservative free Piero Ortiz Work Phone: [facility] Work Phone: 02-26-2022 Pfizer COVID-19 Vac Bivalent 30 MCG/0.3ML Intramuscular Suspension Piero Ortiz Work Phone: [facility] Work Phone: 04-21-2021 Pfizer-BioNTech COVID-19 Vacc 30 MCG/0.3ML Intramuscular Suspension Piero Ortiz Work Phone: [facility] [address] Work Phone: 02-13-2021 influenza, injectabl e, quadrivalent, preservative free; Translations: [Fluarix Quadrivalent 0.5 ML Intramuscular Suspension Prefilled Syringe] Piero Ortiz Work Phone: PV-Mnmihvcmphbg-Nycx [address] Work Phone: Comment on above: Series: 08-10-2020 Pfizer-BioNTech COVID-19 Vacc 30 MCG/0.3ML Intramuscular Suspension Piero Ortiz Work Phone: BL-Adwqnaldudsc-Xmlh [address] Work Phone: 07-22-2020 Pfizer-BioNTech COVID-19 Vacc 30 MCG/0.3ML Intramuscular Suspension Piero Ortiz Work Phone: JO-Xqreqfjxtbww-Iivw [address] Work Phone: 02-16-2020 influenza, injectabl e, quadrivalent, preservative free; Translations: [Flulaval Quadrivalent 0.5 ML Intramuscular Suspension Prefilled Syringe] Piero Angel [facility] [address] Work Phone: Comment on above: Series: 03-28-2018 influenza, injectabl e, quadrivalent, preservative free Piero Ortiz Work Phone: RH-Mqhgqysylyrq-Xcpn [address] Work Phone: 03-18-2016 influenza, seasonal, injectable; Translations: [Fluzone SUSP] Piero RIVERAYK-AKKJD-Jcmfrnge 2420 DO Work Phone: Comment on above: Series: 02-26-2015 influenza, injectabl e, quadrivalent, preservative free; Translations: [Fluzone Quadrivalent 0.5 ML Intramuscular Suspension] Piero RIVERAFO-KHONP-Yvbdydwb 2420 DO Work Phone: Comment on above: Series: 03-05-2014 influenza, injectabl e, quadrivalent, preservative free; Translations: [Fluzone Quadrivalent 0.5 ML Intramuscular Suspension] Piero RIVERAFQ-NAENS-Srejbskd 2420 DO Work Phone: Comment on above: Series: 11-24-2013 tetanus toxoid, redu ezequiel diphtheria toxoid, and acellular pertussis vaccine, adsorbed Piero Ortiz Work Phone: DE-Zhgdichwoxdh-Bdsw [address] Work Phone: 10-20-2013 hepatitis B vaccine, adult dosage Piero Ortiz Work Phone: SI-Vcflxjobiaxh-Hzbc [address] Work Phone: 06-02-2013 hepatitis B vaccine, adult dosage Piero Ortiz Work Phone: PP-Mvuaukriepla-Zlek [address] Work Phone: 04-14-2013 hepatitis B vaccine, pediatric or pediatric/adolescent dosage Piero Ortiz Work Phone: BQ-Kzwpigxgihbw-Gbxt [address] Work Phone: 03-01-2013 influenza, injectabl e, quadrivalent, preservative free Piero Ortiz Work Phone: RQ-Azxyoyoifvqd-Sxqt [address] Work Phone: 02-17-2012 influenza virus vaccine, unspecified formulation Piero Ortiz Work Phone: QU-Gewnwcyiepgi-Gcdp [address] Work Phone: Comment on above: Series: 02-17-2012 influenza, seasonal, injectable Piero Ortiz DP-COQLG-Dkaaqsgf 2420 DO Work Phone: 02-13-2011 influenza virus vaccine, unspecified formulation Piero Ortiz Work Phone: TD-Lfgqjttuqeqj-Qfnc [address] Work Phone: Comment on above: Series: 02-13-2011 influenza, seasonal, injectable Piero Ortiz ZX-XZSMR-Mfrezdfg 2420 DO Work Phone: 04-17-2010 influenza virus vaccine, unspecified formulation Piero Ortiz Work Phone: TY-Dbahssnlyvan-Lkqo [address] Work Phone: Comment on above: Series: 04-17-2010 influenza, seasonal, injectable Piero Ortiz JQ-BUBLF-Yjgdbczq 2420 DO Work Phone: Payers Date Payer Category Payer Self-pay 2023 Medicare [id number] 2023 Private Health Insurance [id number] 2023 Medicare [id number] 2023 Unknown [id number] 2021 Unknown 2021 Unknown [id number] [id number] 1960 Unknown [id number] 2.16. 840.1.500536.3.579.2.356 1960 Unknown [id number] 2.16.8 40.1.854188.3.579.2.1069 1960 Unknown [id number] 2.16.8 40.1.251370.3.579.2.159 1960 Unknown [id number] 2.16.8 40.1.159847.3.579.2.159 Unknown [id number] 2.16.8 40.1.204905.3.579.2.243 Unknown [id number] 2.16.8 40.1.399108.3.579.2.243 Unknown [id number] 2.16.8 40.1.404486.3.579.2.243 Unknown [id number] 2.16.8 40.1.833489.3.579.2.243 Unknown [id number] 2.16.8 40.1.597279.3.579.2.243 Unknown [id number] Unknown [id number] 2.16.8 40.1.326900.3.579.2.462 Unknown [id number] 2.16.8 40.1.012889.3.579.2.462 Unknown [id number] 2.16.8 40.1.332773.3.579.2.462 Unknown [id number] 2.16.8 40.1.366652.3.579.2.462 Unknown [id number] 2.16.8 40.1.432100.3.579.2.462 Unknown [id number] 2.16.8 40.1.017801.3.579.2.462 Unknown [id number] 2.16.8 40.1.834841.3.579.2.462 Unknown [id number] 2.16.8 40.1.512444.3.579.2.462 Unknown [id number] 2.16.8 40.1.634191.3.579.2.462 Unknown [id number] 2.16.8 40.1.023710.3.579.2.462 Unknown [id number] 2.16.8 40.1.961883.3.579.2.462 Unknown [id number] 2.16.8 40.1.087294.3.579.2.462 Unknown [id number] 2.16.8 40.1.763572.3.579.2.462 Unknown [id number] 2.16.8 40.1.886329.3.579.2.462 Unknown [id number] 2.16.8 40.1.485894.3.579.2.462 Unknown [id number] 2.16.8 40.1.569172.3.579.2.462 Unknown [id number] 2.16.8 40.1.491901.3.579.2.462 Unknown [id number] 2.16.8 40.1.729038.3.579.2.462 Social History Date Type Detail Facility Start: 05-05-2020 End: 05-06-2023 Never smoker Never smoker [facility] 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; Start: 01-08-2022 End: 03-02-2025 Tobacco smoking status NHIS Never smoked tobacco [facility] Start: 09-08-2021 End: 11-30-2024 Alcohol intake Current drinker of alcohol (finding) [facility] Start: 1960 Sex Assigned At Not on file [facility] Start: 08-29-2021 End: 09-08-2021 Exposure to SARS-CoV-2 (event) Not sure [facility] Start: 01-08-2022 End: 07-22-2023 Tobacco use and exposure Smokeless tobacco non-user [facility] Start: 05-05-2020 End: 05-06-2023 Tobacco use panel [facility] Start: 05-01-2012 National Score (1-100), lower number is lower risk Not on file [facility] Has the electric, gas, oil, or water [employer] threatened to shut off services in your home in past 12Mo No [facility] Are you now , , , , never or living with a partner? [facility] How often to you hav e a drink containing alcohol? Monthly or less [facility] How many standard drinks containing alcohol do you have on a typical day? 1 or 2 [facility] How often do you hav e 6 or more drinks on 1 occasion? Never [facility] Do you feel stress - tense, restless, nervous, or anxious, or unable to sleep at night because your mind is troubled all the time - these days [OSQ] Only a little [facility] (I/We) worried whether (my/our) food would run out before (I/we) got money to buy more. Never true [facility] History of tobacco use Passive smoker [facility] Start: 1960 Sex Assigned At Female [facility] Tobacco smoking status NHIS Unknown if ever smoked [facility] Work Phone: Start: 08-22-2024 Sex Female (finding) [facility] Start: 12-07-2024 Gender identity Identifies as female gender (finding) [facility] Start: 01-16-2025 Alcoholic beverage intake Ex-drinker (finding) [facility] NEGATED: Highlighted row - Never smoker RR-HBGWH-Qtfzgbaz 2420 DO Work Phone: Goals Date Patient Goal Desired Activity /State Functional Status Date Assessment Result Facility 01-16-2025 Total score [AUDIT-C] 0 01/17/20 25 11:06 AM Amanda Sorenson MA [facility] NEGATED: Highlighted row Functional performance Functional status health issues are not documented Disease QC-LGRVU-Pvmuusrk 2420 DO Work Phone: Mental Status Date Assessment Result Facility 03-08-2025 Cognitive function Level Of Cons ciousness Sedated [facility] Work Phone: 03-08-2025 Cognitive function Voice/Name [facility] Work Phone: NEGATED: Highlighted row Cognitive function [Interpretation] Cognitive status health issues are not documented Disease XQ-ZFKNA-Dduemkhy 9280 DO Work Phone: Clinical Notes 12-06-2006 to 03-29-2025 Patient Janina Coulter PA-C - 01/16/2025 11:01 AM EDT Note Date & Type Note Facility 03-29-2025 Note HNO ID: [id number] Author: ?, ?, ? Service: ? Author Type: Licensed Nurse Type: Progress Notes Filed: 03/29/2025 14:28 Note Text: Patient was offered sooner appt but not with physician she had planned to establish care with. Would like to have appt with that Dr scheduled again. Patient taken to schedulers to assist with appt. Pina Szymanski LPN [facility] 03-13-2025 Progress note [facility] 03-13-2025 Note HNO ID: [id number] Author: ADARSH CAMACHO APRN.COLLATERAL SPECIALIST Service: ? Author Type: Nurse Practitioner Type: [...] 01/27/2021 EAR SURGERY HX Right EGD W/O [facility] SPEC VARICIES INJ 10-12 years ago [...] media. - Refer to ENT within the [facility] system for further evaluation and management. - Advised against unnecessary use of antibiotics and steroids to avoid resistance and immunosuppression, especially during respiratory season. and Recording using [employer] software for draft documentation of the visit was discussed with the patient/authorized retail sales representative; all questions welcomed and answered. Patient/authorized retail sales representative agreed to proceed History and Record Review External record(s) reviewed: prior outpatient record. Findings from review of outpatient records: Previous medical history. Disposition The patient was discharged. OTC Medications were advised: Continue Flonase and antihistamines (more content not included)... [facility] 03-08-2025 Consult note [facility] 03-08-2025 Consult note [facility] 03-08-2025 Procedure note [facility] 03-08-2025 Procedure note [facility] 03-08-2025 Consult note [facility] 03-08-2025 History and physi todd note [facility] 03-08-2025 Note [facility] Medical Records Department [address] [place] [address] History Physical Exam 03/08/25 0633 MR#: [id number] Acct: [id number] Name: TIFFANIE RAMSEY Rep #: [id number] : 1960 64 From: Chuck Friend PCP: Dr. Bello Davenport MD Status:[facility] Location: [place] [address] HPI - General General Date of Admission: [...] out of the country. ] [facility] Medical History Arthritis High cholesterol Injury [...] 64 F w (more content not included)... [facility] 02-22-2025 Note HNO ID: [id number] Author: TAQUERIA VIEIRA MD Service: ? 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 Elizabeth, in [place]; no records available. - Seen by sleep medicine, Dr. Gibson, in [place]; sleep study ordered but not yet completed. [...] 01/27/2021 EAR SURGERY HX Right EGD W/O [facility] SPEC VARICIES INJ 10-12 years ago FAMILY [...] 10.6 mg/dL (elevated) - Remainder: Unremarkable - [place] Check: 3.2 (mildly (more content not included)... [facility] 02-07-2025 Note HNO ID: [id number] Author: ?, ?, ? Service: ? Author Type: ? Type: Progress Notes Filed: 02/07/2025 10:07 Note Text: Spoke with patient to reschedule her EGD with MAC at a hospital / [place] [facility] is not able to do her procedure per Dr. Lambert. Patient will be going to [facility] for her procedure Elza Wu [facility] 01-23-2025 Note HNO ID: [id number] Author: JEREMY SCHAEFFER MD Service: ? Author Type: Physician Type: Progress Notes Filed: 01/23/2025 13:47 Note Text: 01/23/2025 Even LDN 0.4 mg daily caused abdominal pain side effects. Stopped LDN. Instead, we will try following for 3 weeks, then do a virtual appt. NAC 1,000 mg daily L-carnitine 1,000 mg daily [facility] 01-16-2025 Instructions Janina Miranda PA-C - 01/16/2025 [...] esophageal reflux, by following the tips above. Kblq-jvw-ggjofqy liquid antacids can also help in treating [...] involves blocking acid production in the stomach. Oeny-ukc-zthayqe medicines, such as Tums , Rolaids , [...] correct the disorder. documented in this encounter [facility] 01-16-2025 Note HNO ID: [id number] Author: JANINA MIRANDA PA-C Service: ? Author Type: Physician Ms Sql Developer Type: Progress Notes Filed: 01/16/2025 11:48 Note [...] A CT scan performed last year at [facility] reportedly showed only stool retention, with no [...] Abs Lymph 1.00 - 4.00 k/uL 1.42 Huntington% % 6.6 Abs Huntington <0.87 k/uL 0.43 Eosin% % 2.8 Abs [...] 90 mcg/actuation inhale (more content not included)... [facility] 01-16-2025 History of Present illness Narrative Formatting [...] A CT scan performed last year at [facility] reportedly showed only stool retention, with no [...] Abs Lymph 1.00 - 4.00 k/uL 1.42 Huntington% % 6.6 Abs Huntington <0.87 k/uL 0.43 Eosin% % 2.8 Abs [...] to identify potential dietary triggers. Recording using [employer] software for draft documentation of the visit was discussed with the patient/authorized retail sales representative; all questions welcomed and answered. Patient/authorized retail sales representative agreed to proceed I spent a total of 30 minutes on the date of the service which included preparing to see the patient, ydkv-eb-ipuf patient care, completing clinical documentation, obtaining and/or [...] Drug use: Never documented in this encounter [facility] 01-15-2025 History and physi todd note Note Date/Time January 15, 2025 6:54pm [facility] Pulmonary Rehab Reports [address] [place] [address] [place] - History & Physical MR#: [id number] Acct: [id number] Name: TIFFANIE RAMSEY Rep #:[id number] : 1960 64 From: [place], [...] 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 01/15/25 9463<Electronically signed by Reno Ga MD> Cosigner Signature: Date Reno Ga MD CC: ~ Signed [facility] Work Phone: 1(590) 398-149708-18-2025 History and physical note [facility] Pulmonary Rehab Reports [address] [place] [address] [place] - History & Physical MR#: [id number] Acct: [id number] Name: TIFFANIE RAMSEY Rep #:[id number] : 1960 64 From: [place]zo [place], [...] Do you have a Healthcare Power of Diesel Truck Driver?: Yes Living Will: Yes Advance Directives Information Provided: Yes Advance Directives on File: No DNR Order?:: No Past Medical History Covid-19 Screening Physicial Symptoms Other Clinical Concerns Exposure Risk Pertinent Comorbidities 65 years or older:: Yes Has a chronic lung disease or moderate to severe asthma:: Yes Medical History Past Medical History (Updated 12/26/24 @ 09:59 by Lise Araya NP, CLAIM ATTORNEY-C) Long COVID U09.9 Left shoulder pain M25.512 [...] Date Reno Ga MD CC: ~ Signed [facility]08-13-2025 NoteHNO ID: [id number] Author: JEREMY SCHAEFFER MD Service: ? Author Type: Physician Type: Progress Notes Filed: 01/10/2025 16:00 Note Text: 01/10/2025 LDN 1.5 mg caused strong abdominal pain. Tried 2 times (few days apart) but happened again. She wants to stop it. I asked her to try quarter tablet (0.4 mg) per day. If same issue happens, we can try NAC+L-carnitine.[facility] 01-10-2025 Telephone encounter Note* Telephone Encounter - Yu Mccormack RN - 01/10/2025 12:05 PM EDT Faxed polysomnogram order to Dr. Gibson per pt request. . Pt reports she has an appt with him on 01/22/25. [facility]08-13-2025 Miscellaneous Notes* Telephone Encounter - Yu Mccormack RN - 01/10/2025 12:05 PM EDT Faxed polysomnogram order to Dr. Gibson per pt request. . Pt reports she has an appt with him on 01/22/25. [facility] Telephone encounter Note * Telephone Encounter - Macho Baeza LPN - 01/01/2025 1:13 PM EDT Patient calling. At [facility] trying to get scheduled for Pulmonary Rehab. They are asking for documentation for Shortness of Breath. Please fax order whatever testing (had breathing tests done on 12/21) showed this to [facility] at [phone]. PFT results from 12/21 faxed to [facility] via Epic [facility]08-04-2025 Miscellaneous Notes* Telephone Encounter - Macho Baeza LPN - 01/01/2025 1:13 PM EDT Patient calling. At [facility] trying to get scheduled for Pulmonary Rehab. They are asking for documentation for Shortness of Breath. Please fax order whatever testing (had breathing tests done on 12/21) showed this to [facility] at [phone]. PFT results from 12/21 faxed to [facility] via Epic documented in [facility]Green [facility] Instructions* Patient Instructions* Ashley Lynn MD [...] - I recommend starting pulmonary rehab at [facility] to help retrain your breathing and improve your endurance. I have provided a referral and a printed prescription for this program. 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 - Use your albuterol inhaler as needed for shortness of breath. A new prescription has been sent [facility] ([facility]). We discussed your fatigue, insomnia, [...] bring up your nausea symptoms with your proposal writer during your upcoming appointment. Follow-Up: - You have a heart ultrasound scheduled for January 12. This will help evaluate any potential post-COVID effects on your heart. - You are scheduled to see your chief deputy, Dr. Maria, at the [facility], and your primary care physician, [...] adjust the appointment. Please reach out through [employer] if you have any questions or concerns before your next visit. [facility] History of Present illness Narrative* Ashley [...] OF DYSPNEA and PASC 19 Recording using [employer] software for draft documentation of the visit was discussed with the patient/authorized retail sales representative; all questions welcomed and answered. Patient/authorized retail sales representative agreed to proceed HPI: Tiffanie Ramsey [...] a pattern of energy depletion, stating that [id number] each day, she feels as though her [...] 12/15/2024 Neut% 62.0 12/15/2024 Lymph% 24.1 12/15/2024 Huntington% 8.2 12/15/2024 Eosin% 3.6 12/15/2024 Baso% 1.7 12/15/2024 Abs Neut (ANC) 3.32 12/15/2024 Abs Huntington 0.44 12/15/2024 Abs Eosin 0.19 12/15/2024 Abs [...] 36 SPIROMETRY - BASELINE AND POST DILATOR ([id number]) - ordered on 12/21/24 PRE-BRONCH POST-BRONCH Bianca [...] 90-100 1.28 54 FIVC 3.05 2.94 -3 [id number] 2.35 0.93 1.94 3.35 120 0.53 1.36 [...] Date: 11/30/2024 IMPRESSION: No acute radiographic abnormality. Sciences Dean: SAUNDRA Transcribe Date/Time: Nov 30 2024 7:46P [...] relief. - Referred to pulmonary rehabilitation at [facility]. 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 [facility] in [facility]08-[facility]-2025 NoteHNO ID: [id number] Author: ASHLEY LYNN MD Service: ? Author [...] OF DYSPNEA and PASC 19 Recording using [employer] software for draft documentation of the visit was discussed with the patient/authorized retail sales representative; all questions welcomed and answered. Patient/authorized retail sales representative agreed to proceed HPI: Tiffanie Ramsey [...] pattern of energy depletion, stating that by [id number] each day, she feels as though her [...] day for 3 days, (more content not included)...[facility]07-31-2025 Instructions* Patient Instructions* Anna Tabor MD - [...] additional questions or concerns. documented in [facility]07-[facility]25 NoteHNO ID: [id number] Author: ANNA TABOR MD Service: ? Author Type: Physician Type: Progress Notes Filed: 12/28/2024 14:59 Note Text: [facility] Initial Consult [...] or hoarding: NO Social History: Primary language: Azeri Marital Status: Living situation: Home w/ Spouse Socially engaged? (participates in activities such as clubs, jewish, community center, sports, games, visiting friends/relatives, etc?): YES Caregiver [place] and Stress Are your feeling overwhelmed? YES [...] Authorizing Provider Priscilla Louis (more content not included)...[facility]07-[facility] History of Present illness Narrative* Anna Tabor MD - 12/28/2024 11:32 AM EDT [facility] Initial Consult Tiffanie Ramsey is a 64 year old year old female who comes for Comprehensive Geriatric Assessment. Pt accompanied by: Caregivers involved in care: HPI: Tiffanie Rmasey is a 64-year-old female presenting with concerns [...] or hoarding: NO Social History: Primary language: Azeri Marital Status: Living situation: Home w/ Spouse Socially engaged? (participates in activities such as clubs, jewish, community center, sports, games, visiting friends/relatives, etc?): YES Caregiver [place] and Stress Are your feeling overwhelmed? YES [...] vision impairment and wears glasses Follows with computer aided design technician:YES Hearing - Hearing aid : Denies any [...] any unintended typographical errors. Anna Tabor MD [facility] documented in [facility] encounterGreen [facility]07-29-[facility] Evaluation note* Diagnosis Onset Date Resolution Status Admit Date Atrophic vaginitis acute November 292024 8:55am Encounter for routine gynecological examination noneactive November 292024 8:55am [facility] Work Phone: [phone] 276-631507-29-2025 Evaluation note* Diagnosis Onset Date Resolution Status Admit Date Atrophic vaginitis acute November 292024 8:55am Encounter for routine gynecological examination noneactive November 292024 8:55am Abdominal pain acute February 5:26am Gas bloat syndrome acute Oct r 2024 5:26am [facility] Work Phone: 1([phone] 135-282507-29-2025 Evaluation note* Diagnosis Onset Date Resolution Status [...] tract infection acute O ctober 2024 12:37pm [employer] Work Phone: 1(986) 615-598607-24-2025 NoteHNO ID: [id number] Author: GAIL PANG RPFT Service: ? Author [...] Ramsey DATE: December 21, 2024 TIME: 11:20 [facility]07-24-2025 Procedure note* Gail Pang RPFT - 12/21/2024 [...] DATE: December 21, 2024 TIME: 11:46 AM [facility]07-24-2025 Procedure note* Gail Pang RPFT - [...] 2024 TIME: 11:46 AM documented in this encounterGreen [facility] Hospital07-[facility]25 Telephone encounter Note * Telephone Encounter - Hollie Abreu MA - 12/20/2024 9:48 AM EDT Results from Provider have been read by patient on 12/19/24 at 5:21 pm. Hollie Abreu MA [facility]07-23-2025 Miscellaneous Notes* Telephone Encounter - Hollie [...] normal. Vitamin D normal. documented in this encounterGreen Cross Hospital07-23-2025 History of Present illness Narrative* Jeremy [...] consultation (Dept of Wellness & Preventive Medicine, [facility]) I have communicated my name and active licensure. The patient's identity and physical location wereverified at the time of this visit. Either the patient or their legal retail sales representative has been informed of the risks [...] Around September 2023, she received shingle vaccine [place] very ill for 3 days but these [...] which included preparing to see the patient, qdtf-ai-rnsi patient care, completing clinical documentation, obtaining and/or reviewing separately obtained history, performing a medically appropriate examination, counseling and educating the pat ient/family/caregiver, and ordering medications, tests, or procedures. Jeremy Schaeffer MD 12/20/2024 documented in this encounterGreen Cross Hospital07-23-2025 NoteHNO ID: [id number] Author: JEREMY SCHAEFFER MD Service: ? Author [...] consultation (Dept of Wellness AND Preventive Medicine, [facility]) I have communicated my name and active licensure. The patient's identity and physical location were verified at the time of this visit. Either the patient or their legal retail sales representative has been informed of the risks [...] Around September 2023, she received shingle vaccine [place] very ill for 3 days but these [...] Age of Onset Hypothyro (more content not included)...[facility]07-22-2025 Progress note* Result Encounter Note - Maddie Martínez APRN.CNP - 12/19/2024 9:42 AM EDT Ionized calcium 1/100s of over normal. Will continue to monitor. Red blood count improving. Parathyroid normal. Vitamin D normal. [facility] Work Phone: 1(932) 848-314407-07-2025 Telephone encounter Note* Telephone Encounter - Rosalind Bergeron RN - 12/04/2024 10:04 AM EDT Called patient. Reviewed below results and recommendations to drink more fluids and get labs drawn in 1-2 weeks, order in chart. Pt is agreeable. Rosalind Bergeron RN Per communication to nursing: Taqueria Vieira MD 12/04/2024 9:11 AM EDT Did not crop picker her my chart note, see below. Also [...] with any questions. Take Care, Dr Vieira [facility]07-07-2025 Miscellaneous Notes* Telephone Encounter - Rosalind Bergeron RN - 12/04/2024 10:04 AM EDT Called patient. Reviewed below results and recommendations to drink more fluids and get labs drawn in 1-2 weeks, order in chart. Pt is agreeable. Rosalind Bergeron RN Per communication to nursing: Taqueria Vieira MD 12/04/2024 9:11 AM EDT Did not crop picker her my chart note, see below. Also [...] Take Care, Dr Vieira documented in this encounterGreen Cross Hospital07-07-2025 Telephone encounter Note * Telephone Encounter [...] [3] Marge RM, Saw O, Deb AF, eLi DP. Automated detection of cognitive impairment in clinical practice. J Neurol. 2023 Miguel . doi: 10.1007/m93526-403-50063-7. Epub ahead of print. PMID: 19503782. [facility] Work Phone: 1(178) 856-368307-07-2025 Miscellaneous Notes* Telephone Encounter - Taqueria Vieira [...] clinical practice. J Neurol. 2023Nov 01. doi: 10.1007/q08302-725-36703-2. Epub ahead of print. PMID: 97914993. documented in this encounterGreen Cross Hospital07-03-2025 NoteHNO ID: [id number] Author: TAQUERIA VIEIRA MD Service: ? Author [...] Brain Fog: - Onset of cognitive difficulties jucf-RZTBR-93 infection. - Experiences intermittent episodes of brain fog, with occasional days of clarity. - Describes feeling like brain fog girl on bad days. Arthralgias: - New onset of joint pain in knees and shoulders since COVID-19 infection. - Reports worsening of symptoms over time. - Has received cortisone injection in the shoulder with temporary relief. Gastrointestinal Issues: - Onset of gastrointestinal discomfort wfds-STVHA-02 infection. - Experiences abdominal cramps when taking [...] Alopecia: - Recent onset of alopecia. - Nurseryperson recommended returning to the clinic for further [...] of emesis and severe illness post-vaccination. - Nurseryperson recommended returning to the clinic for further evaluation. Anxiety: - New onset of anxiety symptoms gzdn-XFTXI-80 infection. - Describes feeling agitated and irritable [...] loss of smell Cardiovasc (more content not included)...[facility]07-03-2025 History of Present illness Narrative* Taqueria Vieira [...] Brain Fog: - Onset of cognitive difficulties naht-DOPRP-26 infection. - Experiences intermittent episodes of brain fog, with occasional days of clarity. - Describes feeling like brain fog girl on bad days. Arthralgias: - New onset of joint pain in knees and shoulders since COVID-19 infection. - Reports worsening of symptoms over time. - Has received cortisone injection in the shoulder with temporary relief. Gastrointestinal Issues: - Onset of gastrointestinal discomfort asin-VQTDV-43 infection. - Experiences abdominal cramps when taking [...] Alopecia: - Recent onset of alopecia. - Nurseryperson recommended returning to the clinic for further [...] of emesis and severe illness post-vaccination. - Nurseryperson recommended returning to the clinic for further evaluation. Anxiety: - New onset of anxiety symptoms yowd-PTTLY-85 infection. - Describes feeling agitated and irritable [...] trace elements, CRP, BNP, D-dimer, ferritin, and Cartwright-check. - Scheduled EKG and chest X-ray. - [...] Brain fog (R41.89) - Cognitive impairment noted mmxp-AQPTD-24 infection. - Ordered BACH cognitive test to be completed at home. - Referred to geriatrics for comprehensive cognitive evaluation. 9. Myalgia (M79.10) 10. Arthralgia, unspecified joint (M25.50) 11. Knee pain, unspecified chronicity, unspecified laterality (M25.569) - Musculoskeletal pain, including myalgia and arthralgia, noted zmlp-KVTQJ-42 infection. - Consider referral to rheumatology if [...] additional instructions to patient) Taqueria Vieira MD [employer] [facility] [phone] Recording using [employer] software for draft documentation of the visit was discussed with the patient/authorized retail sales representative; all questions welcomed and answered. Patient/authorized retail sales representative agreed to proceed * Taqueria Vieira [...] received the COVID Vaccine? YES. Which vaccine? [employer] COVID-19 Symptom Review Was ill for roughly [...] 1 year to get shingles vaccine. Tolerated 6550-3935 season influenza vaccine. Recent/previously completed testing since [...] deferred at this time. documented in this encounterGreen Cross Hospital07-03-2025 Instructions* Patient Instructions* Taqueria Vieira MD - 11/30/2024 10:53 AM EDT - Complete the at-home BACH cognitive test sent to your [employer] account and return results when prompted. - Have blood and urine drawn for the long COVID panel: Complete blood count (CBC) and metabolic panel (CMP) Thyroid (TSH) Vitamin B12 and folate Vitamin D C-reactive protein (CRP) B-type natriuretic peptide (BNP) D-dimer Ferritin Cartwright-check (fatty acid profile) - Undergo these in-office tests before you leave today: Electrocardiogram (EKG) Chest X-ray - Schedule and complete these additional studies (you may do them at [place] if easier): Echocardiogram (heart ultrasound) Pulmonary function tests and six-minute walk with pulse oximetry (breathing tests) - Arrange specialist visits for further evaluation: Geriatrics for a detailed cognitive assessment (can be scheduled in [place]) Gastroenterology for chronic digestive issues Pulmonology for ongoing shortness of breath and exercise intolerance Cardiology for heart evaluation after your echo A wellness medicine clinical program consultant to discuss anti-inflammatory diet options and [...] results and next steps. documented in this encounterGreen Cross Hospital07-03-2025 NoteHNO ID: [id number] Author: TAQUERIA VIEIRA MD Service: ? Author [...] received the COVID Vaccine? YES. Which vaccine? [employer] COVID-19 Symptom Review Was ill for roughly [...] 1 year to get shingles vaccine. Tolerated 1122-4928 season influenza vaccine. Recent/previously completed testing since [...] Wellness (Integrative medicine) -- deferred at this time.[facility]06-10-2025 Telephone encounter Note* Telephone Encounter - Glenny Mercado LPN - 11/07/2024 3:56 PM EDT Notified patient that at this time this is the soonest even when I look for a physical slot. Advised her would add to wait list. [facility]06-10-2025 Miscellaneous Notes* Telephone Encounter - Glenny [...] Jorge is a current patient with [facility] practice. Patient is asking if he would make an exception to see her sooner since her is already a patient. Please review and advise. Maria Elena Junior November 07, 2024 8:53 AM documented in this encounterGreen Cross Hospital06-10-2025 Telephone encounter Note * Telephone Encounter - Maria Elena Junior - 11/07/2024 8:52 AM EDT Patient calling in to establish care with Dr. Vieira. Patient is scheduled for his first patient access spot in May. Her , Jorge is a current patient with [facility] practice. Patient is asking if he would make an exception to see her sooner since her is already a patient. Please review and advise. Maria Elena Junior November 07, 2024 8:53 AM [facility]05-08-2025 Evaluation note* Diagnosis Onset Date Resolution Status Admit Date Gas bloat syndrome acute September 10:17am Heartburn symptom acute September 10:17am Atrophic vaginitis acute November 292024 8:55am Encounter for routine gynecological examination noneactive November 292024 8:55am [facility] Work Phone: 1([phone]) 750-327704-16-2025 Telephone encounter Note* Telephone Encounter - Maira Neville - 09/13/2024 10:38 AM EDT Patient scheduled with Dr. Vieira on 10/19/2024 [facility]04-16-2025 Miscellaneous Notes* Telephone Encounter - Maira [...] to: self Call patient at: at home [phone] (home) [phone] (cell) Payor: MEDICARE / Plan: MEDICARE A AND B / Product Type: Medicare / Jose Banegas documented in this encounterGreen Cross Hospital04-14-2025 Telephone encounter Note * Telephone Encounter - Taqueria Vieira MD - 09/11/2024 12:11 PM EDT We can have her see me [facility] Work Phone: [phone]) 331-145904-14-2025 Miscellaneous Notes* Telephone Encounter - Taqueria Vieira MD - 09/11/2024 12:11 PM EDT We can have her see me * Telephone Encounter - Rosalind Bergeron RN - 09/11/2024 11:14 AM EDT Consult 05/20/23 with Yumiko Contreras APRN.COLLATERAL SPECIALIST Follow up: scheduled with Dr. Vieira 10/19/24 Call transferred to [facility] nurse, pt returning call to make appointment with [facility]. I started to assist to schedule her, but reviewed chart and she had been seen in [facility] [id number] for one visit. Pt states she had Covid in 03/21 with symptoms lasting 6 months and since has had 2 vaccines which started retirement symptoms (fatigue, brain fog, not sleeping ,dizziness). I reviewed with patient that [facility] is not intended place to be seen [...] review, patient was appreciative. documented in this encounterGreen Cross Hospital04-14-2025 Telephone encounter Note * Telephone Encounter - Rosalind Bergeron RN - 09/11/2024 11:14 AM EDT Consult 05/20/23 with Yumiko Contreras APRN.COLLATERAL SPECIALIST Follow up: scheduled with Dr. Vieira 10/19/24 Call transferred to [facility] nurse, pt returning call to make appointment with [facility]. I started to assist to schedule her, but reviewed chart and she had been seen in [facility] [id number] for one visit. 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 [...] be canceled after review, patient was appreciative. [facility]04-14-2025 Telephone encounter Note* Telephone Encounter - Maira Neville - 09/11/2024 10:46 AM EDT 1st attempt: LVM to schedule first appt with [facility] - can be in person or virtual 2nd attempt: Sent [facility] message with number to schedule [facility]04-14-2025 Telephone encounter Note* Telephone Encounter - [...] to: self Call patient at: at home [phone] (home) [phone] (cell) Payor: MEDICARE / Plan: MEDICARE A AND B / Product Type: Medicare / Jose Shekhar [employer]ar[employer] Supervisor [facility]04-11-2025 NoteHNO ID: [id number] Author: OZZIE LOUIS MD Service: ? Author [...] Past Histories independently gathered by the clinical system support specialist and the remaining scribed note accurately describes my personal service to and examination of the patient. Ozzie Louis [facility]04-11-2025 History of Present illness Narrative* Ozzie [...] Past Histories independently gathered by the clinical system support specialist and the remaining scribed note accurately describes my personal service to and examination of the patient. Ozzie Louis MD documented in this encounterGreen Cross Hospital04-03-2025 Evaluation note* Diagnosis Onset Date Resolution Status Admit Date Left shoulder pain acute August 31, 2024 10:03am Gas bloat syndrome acute September 10:17am Heartburn symptom acute September 10:17am Encounter for routine gynecological examination noneactive November 292024 8:55am [place] [employer] Work Phone: [phone]) [phone] Telephone encounter Note* Telephone Encounter - Shona Barton - 11/15/2023 8:03 AM EDT Patient verbally understands urine might have been contaminated. Patient understands and states shedoes feel worse today and is going to contact her PCP. Shona Barton [facility]06-17-2024 Miscellaneous Notes* Telephone Encounter - Shona [...] for repeat urine culture. documented in this encounterGreen Cross Hospital06-16-2024 Telephone encounter Note * Telephone Encounter - Antoinette Cody MA - 11/14/2023 2:33 PM EDT Left message for pt to call back. Antoinette Cody MA [facility]06-16-2024 Telephone encounter Note* Telephone Encounter - Ryanne Mcconnell PA - 11/14/2023 2:21 PM EDT Please let patient know urine revealed mixed bacteria, may indicate contamination. If symptoms are persisting, needs follow-up with PCP for repeat urine culture. [facility] Work Phone: 1(911) 822-456406-15-2024 History of Present illness Narrative* Leatha Torres APRN.CNP - 11/13/2023 10:00 AM EDT This note was created using Mobiciousriter. Subjective Tiffanie Ramsey is a 63 year [...] fluids and avoid caffeine and carbonated beverages. Laetha Torres APRN.COLLATERAL SPECIALIST documented in this encounterGreen Cross Hospital05-06-2024 Instructions* Patient Instructions* Nathalia Nugent APRN.CNP - 10/04/2023 3:23 PM EDT [facility] ADDRESS: [address] [place] [address] PHONE: [phone] FOLLOW UP: Call your primary care provider [...] tubes in the ears. documented in this encounterGreen Cross Hospital05-06-2024 History of Present illness Narrative* Nathalia [...] plan Follow up with PCP Nathalia Nugent APRN.COLLATERAL SPECIALIST documented in this encounterGreen Cross Hospital05-03-2024 History of Present illness Narrative* Demetris [...] Planned: 8 Planned Treatment Interventions: Therapeutic exercise (34686), Neuromuscular re- education (38675), Manual therapy (25178), Therapeutic activities (20901), Self- jail management (54413), Patient/Family/Caregiver Education PLAN FOR NEXT VISIT: Opening [...] [address] Demetris Garcia PT documented in this encounterGreen Cross Hospital04-11-2024 History of Present illness Narrative* Mirella Sanchez PA-C - 09/09/2023 11:44 AM EDT Mirella Sanchez PA-C Department of Orthopaedics Orthopaedics [address] [address] Dept: [phone] September 09, 2023 CHIEF COMPLAINT: New and [...] is retired but does a lot of intermediate work. ASSESSMENT: M25.552 Pain in left hip [...] described. Hip joint spaces are maintained bilaterally. Sciences Dean: [facility] Transcribe Date/Time: Sep 09 2023 4:36P Dictated [...] MORE PAIN IN HER LEFT HIP (accession [id number]), DEGENERATIVE DISC DISEASE OF LUMBAR (accession [id number]) CLINICAL INFORMATION ( PROVIDED BY ORDERING CLINICIAN) [...] daily. azelastine 0.1% nasal spray Use 1 [place] in each nostril two times a day. [...] anxiety) This note was partially generated using K[employer] voice recognition system, and there may be some incorrect words, spellings, and punctuation that were not noted in checking the note before saving. Mirella Sanchez PA-C documented in this encounterGreen Cross Hospital04-11-2024 History of Present illness Narrative* Madeline [...] PATIENT PRESENTS WITH AN IMPLANTABLE OR ATTACHED FERRY HAND: No RADIOLOGY DEPARTMENT: General X-ray: Exam(s) Completed: [...] PATIENT PRESENTS WITH AN IMPLANTABLE OR ATTACHED FERRY HAND: No RADIOLOGY DEPARTMENT: General X-ray: Exam(s) Completed: Spine X-Ray(s): Lumbar AP / LAT / L5-S1 PERIPHERAL IV DATA: Not applicable SIGNED BY: Huey Whiting September 09, 2023 11:49 AM documented in this encounterGreen Cross Hospital03-07-2024 History of Present illness Narrative* Alli [...] Alli Hutchinson MD, PhD documented in this encounterGreen Cross Hospital02-28-2024 Miscellaneous Notes* Telephone Encounter - Glendy Motta MA - 07/28/2023 1:23 PM EST Patient is informed Glendy Motta MA * Telephone Encounter - Glendy Motta MA - 07/28/2023 1:21 PM EST ----- Message from Jeremy Ramirez APRN.COLLATERAL SPECIALIST sent at 07/28/2023 12:21 PM EST ----- [...] drinks, and alcoholic beverages. documented in this encounterGreen Cross Hospital02-27-2024 History of Present illness Narrative* Jose [...] PATIENT PRESENTS WITH AN IMPLANTABLE OR ATTACHED FERRY HAND: No RADIOLOGY DEPARTMENT: Bone Density PERIPHERAL IV DATA: Not applicable SIGNED BY: SERA Garrison) July 27, 2023 10:19 AM documented in this encounterGreen Cross Hospital02-27-2024 NoteHNO ID: [id number] Author: JOSE RAFAEL PALOMO RT (R) Service: [...] PATIENT PRESENTS WITH AN IMPLANTABLE OR ATTACHED FERRY HAND: No RADIOLOGY DEPARTMENT: Bone Density PERIPHERAL IV DATA: Not applicable SIGNED BY: RT Meli(Roderick) July 27, 2023 10:19 [facility]02-22-[facility] Instructions* Patient Instructions* Angel Catherine APRN.COLLATERAL SPECIALIST - 07/22/2023 10:17 AM EST ASSESSMENT/PLAN: 1. [...] any other concerning symptoms documented in this encounterGreen Cross Hospital02-22-2024 History of Present illness Narrative* Angel Catherine APRN.CNP - 07/22/2023 10:04 AM EST This note was created using [employer]. Subjective Tiffanie Ramsey is a 63 year [...] Sinus: Maxillary sinus tenderness present. Mouth/Throat: Lips: [place]. Mouth: Mucous membranes are moist. Pharynx: Oropharynx [...] MG-POTASSIUM CLAVULANATE 125 MG TABLET Angel Catherine APRN.COLLATERAL SPECIALIST -I have reviewed and updated with the [...] any other concerning symptoms documented in this encounterGreen Cross Hospital02-15-2024 Instructions* Patient Instructions* Dominique Fisher MD [...] office for an update. documented in this encounterGreen Cross Hospital02-15-2024 History of Present illness Narrative* Dominique Fisher MD - 07/15/2023 1:17 PM EST Fine Needle Aspiration(FNA) Biopsy of thyroid nodule Tiffanie Ramsey was identified by name and date, acknowledges here to have a Fine Needle Aspiration(FNA) of left sided lower thyroid nodule performed. Risks, benefits and alternatives D/W patient by: Dr Fisher Time/Date: July 15, 2023 1:17 PM PCP: Jeremy Ramirez APRN. COLLATERAL SPECIALIST Seen by ma for initial consultation on 05/25/2023 for multinodular [...] results. Dominique Fisher MD Endocrinology Associate Staff [facility] Endocrinology [facility] Met[facility] [place] documented in this encounterGreen Cross Hospital12-13-2023 Miscellaneous Notes* Telephone Encounter - Jenny Van MA - 05/12/2023 12:04 PM EST Pt called she is willing to start a statin that can be sent to [facility] Jenny Van MA * Telephone Encounter - Jenny Van MA - 05/11/2023 4:14 PM EST Called pt left with results and for pt to call the office back to let us know if she is interested in taking a statin Jenny Van MA * Telephone Encounter - Jenny Van MA - 05/11/2023 4:13 PM EST ----- Message from Jeremy Ramirez APRN.COLLATERAL SPECIALIST sent at 05/09/2023 7:25 PM EST ----- UA unremarkable Vit D Is low. If she is taking vit D I want her to increase her dose by 1000 units daily Lipids TC and LDL bad chol is very elevated. I recommend a statin Hiv and hep c neg Cbc and cmp wnl Thyroid wnl Inflammation markers normal, RF negative documented in this encounterGreen Cross Hospital12-11-2023 History of Present illness Narrative* Madeline Hinojosa APRN.COLLATERAL SPECIALIST - 05/10/2023 10:28 AM EST This note was created using Mobiciousriter. Subjective Tiffanie Ramsey is a 62 year [...] history is provided by the patient. No balance weigher was used. Sinus Problem This is a [...] if symptoms persist or worsen. Madeline Hinojosa APRN.COLLATERAL SPECIALIST documented in this encounterGreen Cross Hospital12-07-2023 Instructions* Patient Instructions* Jeremy Ramirez APRN.GIANNA [...] URINALYSIS WITH MICROSCOPIC, REFLEX CULTURE Jeremy Ramirez APRN.COLLATERAL SPECIALIST documented in this encounterGreen Cross Hospital12-07-2023 History of Present illness Narrative* Jeremy Ramirez APRN.COLLATERAL SPECIALIST - 05/06/2023 10:18 AM EST This note was created using Mobiciousriter. Subjective Tiffanie Ramsey is a 62 year [...] an occasional cough. She has appt with [facility] program on 05/18/23. She does take flonase nasal spray as needed. Thyroid nodule: reports she follows with endo. She has an appt with [facility] welding machine operator resistance to establish care with DR Fisher on 05/25/23. Vertigo: states she will have an episode about once a month. She does at home Dina which relieves her symptoms. Preventative: she completed her flu and COVID vaccines. She is getting her RSV shot today at pharmacy. Last colonoscopy 3 yrs ago. She reports she goes every 5 yrs. She goes to [facility] Dr coloardo. Had pap in November. She orders her [...] tenderness or frontal sinus tenderness. Mouth/Throat: Lips: [place]. Mouth: Mucous membranes are moist. Pharynx: Oropharynx [...] ordered - follow up with [facility] 2. Thyroid nodule - ICD9: 241.0, [...] CULTURE Jeremy Ramirez APRN.GIANNA documented in this encounterGreen Cross Hospital01-04-2023 Miscellaneous Notes* Telephone Encounter - Nelida [...] her. Please advise patient. documented in this encounterGreen Cross Hospital12-30-2022 History of Present illness Narrative* Lissette Kolb APRN.COLLATERAL SPECIALIST - 05/29/2022 8:42 AM EST CC: Patient [...] plan. Lissette Kolb APRN.GIANNA documented [facility] Miscellaneous Notes* Telephone Encounter - Yadi [...] virtual appointment or schedule an appointment with [facility]. documented in this encounterGreen [facility]10-[facility] History of Present illness Narrative* Fred [...] OTC: Mucinex, tylenol. Had fourth dose of [employer] COVID-19 vaccine February 26 (bivalent booster). 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 Naveed 1538 DO Work Phone: 1(199) 167-193406-11-2022 History of Present illness Narrative* Patient comes [...] and remarried on 09/29/2020 and moved to [place], [place] with her . * Patient having [...] been diagnosed in the past by the sponge buffer and prescribed Protopic and tetracycline for the rash which usually relieves it. She is out of both and would like refills. 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 * 01/16/2020 * Patient is seen today [...] upper quadrant. She is back to her intermediate job at the school and she is [...] middle of a coronavirus pandemic worldwide with vube-ru-drjb orders by the government. She is using [...] been to work. 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 * 02/15/19 * Patient [...] changes in position. 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 [facility] [address] Work Phone: [phone] 257-362404-12-2022 Miscellaneous Notes* Telephone Encounter - Yadi Giles LPN - 09/09/2021 8:33 AM EDT Patient notified.Yadi Giles LPN * Telephone Encounter - Shahida Agarwal APRN.CNP - 09/09/2021 7:02 AM EDT Please notify of negative covid and influenza test. Continue comfort measures for symptoms as you would for a cold. Any worsening symptoms follow up with PCP or ER. Shahida Agarwal APRN.GIANNA documented in this encounterGreen Cross Hospital04-11-2022 History of Present illness Narrative* Betzy Willis PA-C - 09/08/2021 12:28 PM EDT This note was created using Tutto. Subjective Tiffanie Ramsey is a 61 year old female. HPI Patient presents with cough, sore throat, headache and sinus pressure over the past 3 weeks. She states her ears feel full as well. She has been using some Flonase and uoeh-vzz-axcgowt cold medication. She states she really is [...] tenderness or frontal sinus tenderness. Mouth/Throat: Lips: [place]. Pharynx: Oropharynx is clear. No pharyngeal swelling, [...] out Betzy Willis PA-C documented in this encounterGreen Cross Hospital01-31-2022 History of Present illness Narrative* 06/30/2021 * Patient comes in today for evaluation of left lower quadrant pain. Since she was here in April 2020 a lot has happened in her life. She retired last year and remarried on 09/29/2020 and moved to [place], [place] with her . * Patient having [...] telemedicine visit rendered via realtime interactive audio/video doxy.i2we as we are currently in the middle [...] been diagnosed in the past by the sponge buffer and prescribed Protopic and tetracycline for the rash which usually relieves it. She is out of both and would like refills. 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 * 01/16/2020 * Patient is seen today as a telemedicine visit rendered via realtime interactive audio/video doxy.i2we as we are currently in the middle [...] upper quadrant. 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 She is using [...] been to work. 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 * 02/15/19 * Patient [...] changes in position. 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 [facility] [address] Work Phone: [phone] 227-163906-16-2021 History of Present illness NarrativeMs Gomez is a school bus driver/mechanic who presents today for evaluation of her [...] her shoulder or any pain down her arm.[facility] Work Phone: 1([phone]) 149-258312-01-2020 History of Present illness Narrative* Patient comes in today for evaluation of left lower quadrant pain. Since she was here in April 2020 a lot has happened in her life. She retired last year and remarried on 09/29/2020 and moved to [place], [place] with her . 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 * 01/16/2020 * Patient is seen today [...] upper quadrant. 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 She is using [...] been to work. 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 * 02/15/19 * Patient [...] changes in position. 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 [facility] [employer] Work Phone: 1(197) 792-238007-09-2007 History of Past illness Narrative* Problem Noted Date Diagnosed Date Resolved Date Impacted cerumen 12/06/2006 07/13/2023 documented as of this encounter (statuses as of 07/15/2023) [facility] of [facility] illness Narrative* Problem Noted Date Diagnosed Date Resolved Date Impacted cerumen 12/06/2006 07/13/2023 documented as of this encounter (statuses as of 07/21/2023) [facility] History of Past illness Narrative* Problem Noted Date Diagnosed Date Resolved Date Impacted cerumen 12/06/2006 07/13/2023 documented as of this encounter (statuses as of 07/22/2023) [facility] of Past illness Narrative* Problem Noted Date Diagnosed Date Resolved Date Impacted cerumen 12/06/2006 07/13/2023 documented as of this encounter (statuses as of 07/28/2023) [facility] of [facility] illness Narrative* Problem Noted Date Diagnosed Date Resolved Date Impacted cerumen 12/06/2006 07/13/2023 documented as of this encounter (statuses as of 07/29/2023) [facility] of Past illness Narrative* Problem Noted Date Diagnosed Date Resolved Date Impacted cerumen 12/06/2006 07/13/2023 documented as of this encounter (statuses as of 08/05/2023) [address]09-2007 History of Past illness Narrative* Problem Noted Date Diagnosed Date Resolved Date Impacted cerumen 12/06/2006 07/13/2023 documented as of this encounter (statuses as of 08/20/2023) [address]2007 History of Past illness Narrative* Problem Noted Date Diagnosed Date Resolved Date Impacted cerumen 12/06/2006 07/13/2023 documented as of this encounter (statuses as of 09/10/2023) [facility] HospitalConsult note Author Umesh Graf [facility] Note Date/Time March 08, 2025 6: 37am [facility] Medical Records Department [address] [place] [address] Pre-Anesthesia Evaluation 03/08/25 0637 MR#: [id number] Acct: [id number] Name: TIFFANIE RAMSEY Rep #:[id number] : 1960 64 From: Umesh Graf MD PCP: Dr. Bello Davenport MD Status:REG S DC Y Race: C Location: [place] [address] ASA Classification* ASA Classification ASA Classification: 2 [...] Procedure(s): EGD Anesthesia History Anesthesia History - armament mechanic: Anesthesia History - armament mechanic Hx Hospitalization No 03/02/25 16:01 Any Problems [...] take am of surgery PONV PONV - armament mechanic: PONV - armament mechanic Female Yes 03/02/25 16:01 HX of Motion [...] 03/08/25 05:49 Respiratory Assessment Respiratory Assessment - armament mechanic: Respiratory Tract Infection Hx - armament mechanic Hx Respiratory Tract Infection No 03/02/25 16:01 STOP Sleep Apnea STOP Sleep Apnea - armament mechanic: STOP Sleep Apnea - armament mechanic Hx Hypertension No 03/02/25 16:01 Hx Sleep [...] Tobacco Use History Tobacco Use History - armament mechanic: Tobacco Use History - armament mechanic Tobacco Use Smoking Status Never smoker 03/02/25 16:01 Hx Tobacco Use No 03/02/25 16:01 Years Smoking Packs Smoked per Day Smoking Cessation Date was within the last 15 years Hx Smoking Cessation Date Hx Smoking Cessation Counseling Hematologic Medial History Hematologic Hx - armament mechanic: Hematologic Medical Hx - senior gis analyst Hx of Blood Transfusion No 03/02/25 16:01 [...] confused, unrespo /Reproduction History /Reproductive History - armament mechanic: /Reproductive Hx- armament mechanic Hx Now No 03/02/25 16:01 Gestational Age [...] MD Cosigner Signature: Date CC: ~ Signed [facility] Work Phone: consult note Author Jose Lopez [facility] Note Date/Time March 08, 2025 7: 05am [facility] Medical Records Department [address] [place] [address] Anesthesia Postop Eval I 03/08/25703 MR#: [id number] Acct: [id number] Name: TIFFANIE RAMSEY Rep #:[id number] : 1960 64 From: Jose Lopez PCP: Dr. Bello Davenport MD Status:REG S DC Y Race: C Location: [place] [address] Anesthesia: Postop Eval I Current Vital Signs [...] Jose Lebron Signature: Date CC: ~ Signed [facility] Work Phone: consult note Author Umesh Graf [facility] Note Date/Time March 08, 2025 7: 20am [facility] Medical Records Department [address] [place] [address] Anesthesia Postop Eval II 03/08/25718 MR#: [id number] Acct: [id number] Name: TIFFANIE RAMSEY Rep #:[id number] : 1960 64 From: Umesh Graf MD PCP: Dr. Bello Davenport MD Status:REG S DC Y Race: C Location: [place] [address]1 Anesthesia Postop Eval I Sum Postop Eval [...] by Umesh Graf MD > Date _ mUesh Graf MD [facility] Signature: Date CC: ~ Signed [facility] Work Phone: Evaluation note* Diagnosis Acute pansinusitis, recurrence not specified- Primary documented in this encounter [facility]* Diagnosis Acute COVID-19- Primary Acute otitis media, right Unspecified otitis media documented in this encounter [facility]* Diagnosis Rhinosinusitis- Primary Unspecified sinusitis (chronic) documented in this encounter [facility]* Diagnosis Chronic fatigue- [...] unspecified cardiovascular conditions [facility] Diagnosis Rhinosinusitis- Primary Unspecified sinusitis (chronic) Acute otitis media, bilateral Unspecified otitis media documented in this encounter [facility]* Diagnosis Hyperlipidemia, unspecified hyperlipidemia type- Primary documented in this encounter [facility]* Diagnosis Multiple thyroid nodules- Primary Nontoxic multinodular goiter [facility] this encounter [facility]* Diagnosis Nontoxic multinodular goiter- Primary documented in this encounter [facility]* Diagnosis Acute sinusitis, recurrence not specified, unspecified location- Primary documented in this encounter [facility]* Diagnosis Post-menopausal Asymptomatic postmenopausal status (age-related) (natural) documented [facility] this encounter [facility]* Diagnosis Nasal congestion- Primary Other diseases of nasal cavity and sinuses Glossitis Central perforation of tympanic membrane of left ear Central perforation of tympanic membrane documented in this encounter [facility] noteNo assessment information availableWLima Memorial Hospital Work Phone: Evaluation note* Diagnosis Bilateral hip pain- Primary Pain in joint, pelvic region and thigh [facility]* Diagnosis Pain in left hip- Primary Pain in joint, pelvic region and thigh DDD (degenerative disc disease), lumbar Degeneration of lumbar or lumbosacral intervertebral disc documented in this encounter [facility]* Diagnosis Pain in left hip Pain in joint, pelvic region and thigh DDD (degenerative disc disease), lumbar Degeneration of lumbar or lumbosacral intervertebral disc [facility]* Diagnosis Acute otitis media, left- Primary Unspecified otitis media documented in this encounter [facility]* Diagnosis Burning with urination- Primary Dysuria documented in this encounter [facility]* Diagnosis Bilateral hip pain Pain in joint, pelvic region and thigh documented in this encounter [facility]* Diagnosis Alopecia areata- Primary Vitamin D deficiency Unspecified vitamin D deficiency documented in this encounter [facility] note* Diagnosis Fatigue, unspecified type- [...] Nontoxic multinodular goiter [facility]* Diagnosis Non-toxic multinodular goiter Nontoxic multinodular goiter [facility]* Diagnosis Shortness of breath [facility]* Diagnosis Shortness of breath [facility]* Diagnosis Shortness of breath [facility]* Diagnosis Brain fog- Primary Psychophysiological insomnia Persistent disorder of initiating or maintaining sleep Post covid-19 condition, unspecified Primary obstructive sleep apnea of Dyspnea and respiratory abnormalities- Primary Other dyspnea and respiratory abnormality Post-acute sequelae of COVID-19 (PASC) documented [facility] this encounter [facility]* Diagnosis Dyspnea and respiratory abnormalities- Primary Other dyspnea and respiratory abnormality Post-acute sequelae of COVID-19 (PASC) Chronic sinusitis, unspecified location Fatigue, unspecified type documented in this encounter [facility]* Diagnosis Chronic fatigue syndrome- Primary Brain fog Arthralgia, unspecified joint Post-acute sequelae of COVID-19 (PASC) documented in this encounter [facility]* Diagnosis Gastroesophageal reflux disease, unspecified whether esophagitis present- Primary LUQ discomfort Abdominal pain, left upper quadrant Change in bowel habits Other symptoms involving digestive system documented in this encounter [facility]* Diagnosis Hypercalcemia- Primary Polycythemia Polycythemia vera documented [facility] this encounter [facility] Author Chuck Dalton [facility] Note Date/Time March 08, 2025 6: 35am [facility] Medical Records Department [address] [place] [address] History & Physical Exam 03/08/25 0633 MR#: [id number] Acct: [id number] Name: TIFFANIE RAMSEY Rep #:[id number] : 1960 64 From: Chuck Dalton DO PCP: Dr. Bello Davenport MD Status:REG S DC Location: [place] [address] HPI - General General Date of Admission: [...] out of the country. ] [facility] Medical History Arthritis High cholesterol Injury [...] to the office today for establishment with [facility] for concerns regarding LUQ abdominal [...] Bello Davenport MD; Chuck Dalton DO~ Signed [facility] Work Phone: History of Present illness NarrativeShe feels well and has no complaints. She has not noted any change in her neck. She has gained 5 pounds since last visit.[facility] Work Phone: History of Present illness Narrative* 62yo female presenting for annual visit. * Just tired. Just moved to [place]. * using vaginal estrogen once a week. * Diet: varied * Exercise: active with house work, working on exercise * Seatbelt: always * Safety: no concerns [facility] DO Work Phone: progress note Author Ally Bailey [facility] Note Date/Time March 13, 2025 1 :43pm [facility] [address], [address] [place] [address] OFFICE VISIT Date of Service: 03/13/25 MR#: [id number] Acct: [id number] Name: TIFFANIE RAMSEY Rep #: [id number] : 1960 Provider: Dr. 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 Required: No Accompanied by: self Is patient [...] home: Yes additional social history: - Jorge [facility] U[facility] Chief Complaint: new patient for urinary [...] Lr on 5 13:01 Off Ur Spec Chelsea 1.005 Last Edit by Tanika Lr on [...] fallen in the past year?: No 03/13/25 5344 <Electronically signed by Ally Bailey MD> Date _ Ally Lebron Signature: Date (if applicable) CC: ~ [facility] Work Phone: Reason for referral (narrative)* Diagnostic Procedure Only (Routine) - Pending Review Specialty Diagnoses / Procedures Referred By Contac t Referred To Contact US IMAGING Diagnoses Thyroid nodule Procedures US THYROID/PARATHYROID US SOFT TISSUE HEAD & NECK REAL TIME IMGE Jeremy Jiménez APRN.COLLATERAL SPECIALIST [address] [place] [address] [place] [address] Referral ID Status Reason Start Date Expiration Date Visits Requested Visits Authorized [id number] Pending Review Auto-Generat ed Referral 05/06/2023 06/04/2024 1 1 [facility] for referral (narrative)* Diagnostic Procedure Only (Routine) - Pending Review Specialty Diagnoses / Procedures Referred By Contac t Referred To Contact US IMAGING Diagnoses Nontoxic multinodular goiter Procedures US THYROID/PARATHYROID US SOFT TISSUE HEAD & NECK REAL TIME IMGE Dominique Alaniz MD [address] [place] [address] [place] [address] Referral ID Status Reason Start Date Expiration Date Visits Requested Visits Authorized [id number] Pending Review Auto-Generat ed Referral 07/13/2024 08/19/2024 1 1 [facility] for referral (narrative)* Diagnostic Procedure Only (Routine) - Pending Review Specialty Diagnoses / Procedures Referred By Contac t Referred To Contact XR IMAGING Diagnoses Bilateral hip pain Procedures XR HIP BILATERAL 5V PEL/AP/LAT EACH HIP RADEX HIPS BILATERAL WITH PELVIS MINIMUM 5 VIEWS Mirella Sanchez PA-C [address] [place] [address] [place] [address] Referral ID Status Reason Start Date Expiration Date Visits Requested Visits Authorized [id number] Pending Review Auto-Generat ed Referral 08/20/2023 09/18/2024 1 1 [facility] for referral (narrative)* Diagnostic Procedure Only (Routine) - Closed Specialty Diagnoses / Procedures Referred By Contac t Referred To Contact XR IMAGING Diagnoses DDD (degenerative disc disease), lumbar Procedures XR LUMBAR GENERAL 3V AP/LAT/L5-S1 RADEX SPINE LUMBOSACRAL 2/3 VIEWS Mirella Sanchez PA-C [address] [place] [address] Xr Imaging [id number] Referral ID Status Reason Start Date Expiration Date V isits Requested Visits Authorized [id number] Closed Auto-Generate d Referral 09/09/2023 10/08/2024 1 1 * Physical Therapy (Routine) - Authorized Specialty Diagnoses / Procedures Referred By Contac t Referred To Contact [facility] Diagnoses Pain in left hip DDD (degenerative disc disease), lumbar Procedures CONSULT TO PHYSICAL THERAPY PHYSICAL THERAPY EVALUATION HIGH COMPLEX 45 MINS Mirella Sanchez PA-C [address] [place] [address] [facility] [address] [place] [address] Referral ID Status Reason Start Date Expiration Date Visits Requested Visits Authorized [id number] Authorized PCP Requested Referral Auto-Generate d Referral 05/31/2023 05/30/2024 99 99 [facility] for referral (narrative)* Diagnostic Procedure Only (Routine) - Closed Specialty Diagnoses / Procedures Referred By Contac t Referred To Contact XR IMAGING Diagnoses Bilateral hip pain Procedures XR HIP BILATERAL 5V PEL/AP/LAT EACH HIP RADEX HIPS BILATERAL WITH PELVIS MINIMUM 5 VIEWS Mirella Sanchez PA-C [address] [place] [address] [place] [address] Referral ID Status Reason Start Date Expiration Date V isits Requested Visits Authorized [id number] Closed Auto-Generate d Referral 08/20/2023 09/18/2024 1 1 [facility])No reason for referral information availableWLima Memorial Hospital Work Phone: Reason for visit Narrative* Diagnostic Procedure Only (Routine) - Closed Specialty Diagnoses / Procedures Referred By Contac t Referred To Contact XR IMAGING Diagnoses Bilateral hip pain Procedures XR HIP BILATERAL 5V PEL/AP/LAT EACH HIP RADEX HIPS BILATERAL WITH PELVIS MINIMUM 5 VIEWS Mirella Sanchez PA-C [address] [place] [address] [place] [address] Referral ID Status Reason Start Date Expiration Date V isits Requested Visits Authorized [id number] Closed Auto-Generate d Referral 08/20/2023 09/18/2024 1 1 [facility] Summary Purpose Family History No Family [...] Do you have a Healthcare Power of Diesel Truck Driver? Yes January 12, 2025 10:51am Advance Directive Response Recorded Date/ Time Advance Directives on File No Augus t 2024 10:51am Living Will Yes January 12 10:51am Do you have a Healthcare Power of Diesel Truck Driver? Yes January 12, 2025 10:51am Do you have a Healthcare Power of Diesel Truck Driver? Yes March 02, 2025 4:01pm Chief Complaint [...] WNL -HPV * LAST MAMM: 12/31/2020 * COMMUNICATION EQUIPMENT MECHANIC: Preet Young MA II * ASPEN * LAST PAP: 12/12/20- WNL -HPV * LAST MAMM: 12/31/2020 * COMMUNICATION EQUIPMENT MECHANIC: Preet Young MA II * ASPEN * LAST PAP: 12/12/2020- WNL -HPV * LAST MAMM: 12/12/2021 * COMMUNICATION EQUIPMENT MECHANIC: Preet Young MA II Health Concerns Infection Onset Date Last Indicated Resolved Time COVID-19 Rule-Out 03/02/2022 03/02/2022 03/03/2022 8:04 AM EDT COVID-19 Confirmed 03/02/2022 03/02/2022 Chief Complaint and Reason for Visit Chief Complaint LT FLANK PAIN Chief Complaint Admit Date LEFT SHOULDER August 31, 2024 10:0 3am Room 4 August 31, 2024 10:1 7am Abdominal complaints October 05, 2024 10:17 am Annual ([employer]) December 26, 2024 8:55 am Reason for Visit Admit Date Left shoulder pain August 31, 2024 10:0 3am Gas bloat syndrome October 05, 2024 10:17a m Heartburn symptom October 05, 2024 10:17a m Encounter for routine gynecological exam ination December 26, 2024 8:55am Chief Complaint Admit Date Abdominal complaints October 05, 2024 10:17 am Annual (HEAT [employer]) December 26, 2024 8:55 am U09.9 Post-acute [...] complaints October 05, 2024 10:17 am Annual (HEAT [employer]) December 26, 2024 8:55 am U09.9 Post-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 [facility] 2024 10:31am Screening for breast cancer January 18, 2025 11:37am 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, dyspnea January 22, 2025 10:00am Chief Complaint Admit Date Abdominal complaints October 05, 2024 10:17 am Annual (HEAT [employer]) December 26, 2024 8:55 am U09.9 Post-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 [facility] 2024 10:31am Screening for breast cancer January 18, 2025 11:37am 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, dyspnea January 26, 2025 10:00am Chief Complaint Admit Date Annual (HEAT [employer]) December 26, 2024 8:55 am U09.9 Post-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 [facility] 2024 10:31am Screening for breast cancer January [...] 2024 8:55am Chief Complaint Admit Date Annual (HEAT [employer]) December 26, 2024 8:55 am U09.9 Post-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 [facility] 2024 10:31am Screening for breast cancer January [...] 5: 26am Chief Complaint Admit Date Annual (HEAT [employer]) December 26, 2024 8:55 am U09.9 Post-acute [...] section and content) DATE CREATED AUTHOR 09/10/2018 [facility] DATE CREATED AUTHOR AUTHOR'S ORGANIZ ATION 06/20/2020 [facility] DATE CREATED AUTHOR AUTHOR'S ORGANIZ ATION 12/18/2022 [facility] DATE CREATED AUTHOR AUTHOR'S ORGANIZ ATION 12/18/2022 [facility] DATE CREATED AUTHOR AUTHOR'S ORGANIZ ATION 12/29/2022 [facility] DATE CREATED AUTHOR AUTHOR'S ORGANIZ ATION 10/16/2023 [facility] DATE CREATED AUTHOR AUTHOR'S ORGANIZ ATION 07/03/2024 [facility] DATE CREATED AUTHOR AUTHOR'S ORGANIZ ATION 02/21/2025 [facility] DATE CREATED AUTHOR AUTHOR'S ORGANIZ ATION 04/04/2025 [facility] DATE CREATED AUTHOR AUTHOR'S ORGANIZ ATION 04/10/2025 [facility] Source Comments (unrecognize d section and content) In the event this informatio n is protected by the Federal Confidentiality of Alcohol and Drug Abuse Patient Records regulations: The Federal rules restrict any use of the information to criminally investigate or prosecute any alcohol or drug abuse patient.[facility] Hospital[facility] the event this information is protected by the Federal Confidentiality of Alcohol and Drug Abuse Patient Records regulations: The Federal rules restrict any use of the information to criminally investigate or prosecute any alcohol or drug abuse patient.[facility] HospitalIn the event this information is protected by the Federal Confidentiality of Alcohol and Drug Abuse Patient Records regulations: The Federal rules restrict any use of the information to criminally investigate or prosecute any alcohol or drug abuse patient.[facility] HospitalIn the event this information is protected by the Federal Confidentiality of Alcohol and Drug Abuse Patient Records regulations: The Federal rules restrict any use of the information to criminally investigate or prosecute any alcohol or drug abuse patient.[facility] HospitalIn the event this information is protected by the Federal Confidentiality of Alcohol and Drug Abuse Patient Records regulations: The Federal rules restrict any use of the information to criminally investigate or prosecute any alcohol or drug abuse patient.[facility] HospitalIn the event this information is protected by the Federal Confidentiality of Alcohol and Drug Abuse Patient Records regulations: The Federal rules restrict any use of the information to criminally investigate or prosecute any alcohol or drug abuse patient.[facility] HospitalIn the event this information is protected by the Federal Confidentiality of Alcohol and Drug Abuse Patient Records regulations: The Federal rules restrict any use of the information to criminally investigate or prosecute any alcohol or drug abuse patient.[facility] HospitalIn the event this information is protected by the Federal Confidentiality of Alcohol and Drug Abuse Patient Records regulations: The Federal rules restrict any use of the information to criminally investigate or prosecute any alcohol or drug abuse patient.[facility] HospitalIn the event this information is protected by the Federal Confidentiality of Alcohol and Drug Abuse Patient Records regulations: The Federal rules restrict any use of the information to criminally investigate or prosecute any alcohol or drug abuse patient.[facility] HospitalIn the event this information is protected by the Federal Confidentiality of Alcohol and Drug Abuse Patient Records regulations: The Federal rules restrict any use of the information to criminally investigate or prosecute any alcohol or drug abuse patient.[facility] HospitalIn the event this information is protected by the Federal Confidentiality of Alcohol and Drug Abuse Patient Records regulations: The Federal rules restrict any use of the information to criminally investigate or prosecute any alcohol or drug abuse patient.[facility] HospitalIn the event this information is protected by the Federal Confidentiality of Alcohol and Drug Abuse Patient Records regulations: The Federal rules restrict any use of the information to criminally investigate or prosecute any alcohol or drug abuse patient.[facility] HospitalIn the event this information is protected by the Federal Confidentiality of Alcohol and Drug Abuse Patient Records regulations: The Federal rules restrict any use of the information to criminally investigate or prosecute any alcohol or drug abuse patient.[facility] HospitalIn the event this information is protected by the Federal Confidentiality of Alcohol and Drug Abuse Patient Records regulations: The Federal rules restrict any use of the information to criminally investigate or prosecute any alcohol or drug abuse patient.[facility] HospitalIn the event this information is protected by the Federal Confidentiality of Alcohol and Drug Abuse Patient Records regulations: The Federal rules restrict any use of the information to criminally investigate or prosecute any alcohol or drug abuse patient.[facility] HospitalIn the event this information is protected by the Federal Confidentiality of Alcohol and Drug Abuse Patient Records regulations: The Federal rules restrict any use of the information to criminally investigate or prosecute any alcohol or drug abuse patient.[facility] HospitalIn the event this information is protected by the Federal Confidentiality of Alcohol and Drug Abuse Patient Records regulations: The Federal rules restrict any use of the information to criminally investigate or prosecute any alcohol or drug abuse patient.[facility] HospitalIn the event this information is protected by the Federal Confidentiality of Alcohol and Drug Abuse Patient Records regulations: The Federal rules restrict any use of the information to criminally investigate or prosecute any alcohol or drug abuse patient.[facility] HospitalIn the event this information is protected by the Federal Confidentiality of Alcohol and Drug Abuse Patient Records regulations: The Federal rules restrict any use of the information to criminally investigate or prosecute any alcohol or drug abuse patient.[facility] HospitalIn the event this information is protected by the Federal Confidentiality of Alcohol and Drug Abuse Patient Records regulations: The Federal rules restrict any use of the information to criminally investigate or prosecute any alcohol or drug abuse patient.[facility] HospitalIn the event this information is protected by the Federal Confidentiality of Alcohol and Drug Abuse Patient Records regulations: The Federal rules restrict any use of the information to criminally investigate or prosecute any alcohol or drug abuse patient.[facility] HospitalIn the event this information is protected by the Federal Confidentiality of Alcohol and Drug Abuse Patient Records regulations: The Federal rules restrict any use of the information to criminally investigate or prosecute any alcohol or drug abuse patient.[facility] HospitalIn the event this information is protected by the Federal Confidentiality of Alcohol and Drug Abuse Patient Records regulations: The Federal rules restrict any use of the information to criminally investigate or prosecute any alcohol or drug abuse patient.[facility] HospitalIn the event this information is protected by the Federal Confidentiality of Alcohol and Drug Abuse Patient Records regulations: The Federal rules restrict any use of the information to criminally investigate or prosecute any alcohol or drug abuse patient.[facility] HospitalIn the event this information is protected by the Federal Confidentiality of Alcohol and Drug Abuse Patient Records regulations: The Federal rules restrict any use of the information to criminally investigate or prosecute any alcohol or drug abuse patient.[facility] HospitalIn the event this information is protected by the Federal Confidentiality of Alcohol and Drug Abuse Patient Records regulations: The Federal rules restrict any use of the information to criminally investigate or prosecute any alcohol or drug abuse patient.[facility] HospitalIn the event this information is protected by the Federal Confidentiality of Alcohol and Drug Abuse Patient Records regulations: The Federal rules restrict any use of the information to criminally investigate or prosecute any alcohol or drug abuse patient.[facility] HospitalIn the event this information is protected by the Federal Confidentiality of Alcohol and Drug Abuse Patient Records regulations: The Federal rules restrict any use of the information to criminally investigate or prosecute any alcohol or drug abuse patient.[facility] HospitalIn the event this information is protected by the Federal Confidentiality of Alcohol and Drug Abuse Patient Records regulations: The Federal rules restrict any use of the information to criminally investigate or prosecute any alcohol or drug abuse patient.[facility] HospitalIn the event this information is protected by the Federal Confidentiality of Alcohol and Drug Abuse Patient Records regulations: The Federal rules restrict any use of the information to criminally investigate or prosecute any alcohol or drug abuse patient.[facility] HospitalIn the event this information is protected by the Federal Confidentiality of Alcohol and Drug Abuse Patient Records regulations: The Federal rules restrict any use of the information to criminally investigate or prosecute any alcohol or drug abuse patient.[facility] HospitalIn the event this information is protected by the Federal Confidentiality of Alcohol and Drug Abuse Patient Records regulations: The Federal rules restrict any use of the information to criminally investigate or prosecute any alcohol or drug abuse patient.[facility] HospitalIn the event this information is protected by the Federal Confidentiality of Alcohol and Drug Abuse Patient Records regulations: The Federal rules restrict any use of the information to criminally investigate or prosecute any alcohol or drug abuse patient.[facility] HospitalIn the event this information is protected by the Federal Confidentiality of Alcohol and Drug Abuse Patient Records regulations: The Federal rules restrict any use of the information to criminally investigate or prosecute any alcohol or drug abuse patient.[facility] HospitalIn the event this information is protected by the Federal Confidentiality of Alcohol and Drug Abuse Patient Records regulations: The Federal rules restrict any use of the information to criminally investigate or prosecute any alcohol or drug abuse patient.[facility] HospitalIn the event this information is protected by the Federal Confidentiality of Alcohol and Drug Abuse Patient Records regulations: The Federal rules restrict any use of the information to criminally investigate or prosecute any alcohol or drug abuse patient.[facility] HospitalIn the event this information is protected by the Federal Confidentiality of Alcohol and Drug Abuse Patient Records regulations: The Federal rules restrict any use of the information to criminally investigate or prosecute any alcohol or drug abuse patient.[facility] HospitalIn the event this information is protected by the Federal Confidentiality of Alcohol and Drug Abuse Patient Records regulations: The Federal rules restrict any use of the information to criminally investigate or prosecute any alcohol or drug abuse patient.[facility] HospitalIn the event this information is protected by the Federal Confidentiality of Alcohol and Drug Abuse Patient Records regulations: The Federal rules restrict any use of the information to criminally investigate or prosecute any alcohol or drug abuse patient.[facility] HospitalIn the event this information is protected by the Federal Confidentiality of Alcohol and Drug Abuse Patient Records regulations: The Federal rules restrict any use of the information to criminally investigate or prosecute any alcohol or drug abuse patient.[facility] HospitalIn the event this information is protected by the Federal Confidentiality of Alcohol and Drug Abuse Patient Records regulations: The Federal rules restrict any use of the information to criminally investigate or prosecute any alcohol or drug abuse patient.[facility] HospitalIn the event this information is protected by the Federal Confidentiality of Alcohol and Drug Abuse Patient Records regulations: The Federal rules restrict any use of the information to criminally investigate or prosecute any alcohol or drug abuse patient.[facility] HospitalIn the event this information is protected by the Federal Confidentiality of Alcohol and Drug Abuse Patient Records regulations: The Federal rules restrict any use of the information to criminally investigate or prosecute any alcohol or drug abuse patient.[facility] HospitalIn the event this information is protected by the Federal Confidentiality of Alcohol and Drug Abuse Patient Records regulations: The Federal rules restrict any use of the information to criminally investigate or prosecute any alcohol or drug abuse patient.[facility] HospitalIn the event this information is protected by the Federal Confidentiality of Alcohol and Drug Abuse Patient Records regulations: The Federal rules restrict any use of the information to criminally investigate or prosecute any alcohol or drug abuse patient.[facility] Reason for Visit (unrecogniz ed section [...] 45 MINS Mirella Sanchez PA-C [address] [place] [address] [facility] [address] [place] [address] Referral ID Status Reason Start Date Expiration Date Visits Requested Visits Authorized [id number] Authorized PCP Requested Referral Auto-Generate d Referral [...] Service Pr ogress NotePATIENT NAME: Tiffanie RamseyMRN: [id number] OF SERVICE: November 30, 2024TIME: 11:45 AMPATIENT [...] SPMTRY PRE&POST-BRNCDILAT ADMN Taqueria Vieira MD [address] [place] [address] Phone: tel: fax: [facility] [address] [place] [phone] Referral ID Status Reason Start Date Expiration Date V isits Requested Visits Authorized [id number] Closed Auto-Generate d Referral 11/30/2024 12/30/2025 1 1 Specialty Diagnoses / Procedures Referred By Contac t Referred To Contact [facility] Diagnoses Shortness of breath Procedures LUNG VOLUMES Taqueria Vieira MD [address] [place] [address] Phone: tel: fax: [facility] [address] [place] [phone] Referral ID Status Reason Start Date Expiration Date V isits Requested Visits Authorized [id number] Closed Auto-Generate d Referral 11/30/2024 12/30/2025 1 1 Specialty Diagnoses / Procedures Referred By Contac t Referred To Contact [facility] Diagnoses Shortness of breath Procedures LUNG DIFFUSION CAPACITY (DLCO) DIFFUSING CAPACITY Taqueria Vieira MD [address] [place] [address] Phone: tel: fax: [facility] [address] [address] Referral ID Status Reason Start Date Expiration Date V isits Requested Visits Authorized [id number] Closed Auto-Generate d Referral 11/30/2024 12/30/2025 1 1 Specialty Diagnoses / Procedures Referred By Contac t Referred To Contact [facility] Diagnoses Shortness of breath Procedures SIX MINUTE WALK CARDIOPULMONARY EXERCISE STRESS Taqueria Vieira MD [address] [place] [address] Phone: tel: fax: [facility] [address] [address] Referral ID Status Reason Start Date Expiration Date V isits Requested Visits Authorized [id number] Closed Auto-Generate d Referral 11/30/2024 12/30/2025 1 1 Reason Comments New Patient Evaluation Post covid-19 con dition, unspecified [U09.9] Brain fog [R41.89] Specialty Diagnoses / Procedures Referred By Contac t Referred To Contact Gerontology Diagnoses Post covid-19 condition, unspecified Brain fog Procedures CONSULT TO GERIATRICS OFFICE/OUTPATIENT NEW HIGH MDM 60 MINUTES Taqueria Vieira MD [address] [place] [address] Phone: tel: fax: Referral ID Status Reason Start Date Expiration Date V isits Requested Visits Authorized [id number] Closed PCP Requested Referral 11/30/2024 11/30/2025 1 [...] MDM 60 MINUTES Taqueria Vieira MD [address] [place] [address] Phone: tel: fax: Referral ID Status Reason Start Date Expiration Date V isits Requested Visits Authorized [id number] Closed PCP Requested Referral 11/30/2024 11/30/2025 1 1 Reason Onset Date Comments Results 12/19/2024 Reason Comments Faxed to Dr. Gibson Reason Comments GERD Abdominal discomfort Specialty Diagnoses / Procedures Referred By Contac t Referred To Contact Gastroenterology Diagnoses Post covid-19 condition, unspecified Gastroesophageal reflux disease with esophagitis, unspecified whether hemorrhage Abdominal discomfort Procedures OFFICE/OUTPATIENT NEW HIGH [facility] 60 MINUTES Taqueria Vieira MD [address] [place] [address] Phone: tel: fax: Referral ID Status Reason Start Date Expiration Date V isits Requested Visits Authorized [id number] Closed PCP Requested Referral 11/30/2024 11/30/2025 1 1 Care Teams (unrecognized sec tion and content) Hand Meat Salter Relationship Specialty Start Date End Date Taqueria Vieira MD [address] [place], [place] [id number] PCP - General Family Practice 06/04/21 Hand Meat Salter Relationship Specialty Start Date End Date Taqueria Vieira MD [address] [place], [place] [id number] PCP - General Family Practice 06/04/21 Hand Meat Salter Relationship Specialty Start Date End Date Taqueria Vieira MD [address] [place], [place] [id number] PCP - General Family Medicine 06/04/21 Hand Meat Salter Relationship Specialty Start Date End Date Taqueria Vieira MD [address] [place] [address] PCP - General Family Medicine 06/04/21 Hand Meat Salter Relationship Specialty Start Date End Date Taqueria Vieira MD [address] [facility], [place] [address] PCP - General Family Medicine 06/04/21 Hand Meat Salter Relationship Specialty Start Date End Date Taqueria Vieira MD [address] [facility], [place] [address] PCP - General Family Medicine 06/04/21 Hand [employer] Salter Relationship Specialty Start Date End Date Jeremy Ramirez, TOW TRUCK OPERATOR.COLLATERAL SPECIALIST [address] [place] [address] PCP - General Internal Medicine 05/06/23 Hand Meat Salter Relationship Specialty Start Date End Date Jeremy Ramirez, TOW TRUCK OPERATOR.COLLATERAL SPECIALIST [address] [place] [address] PCP - General Internal Medicine 05/06/23 Hand Meat Salter Relationship Specialty Start Date End Date Jeremy Ramirez, TOW TRUCK OPERATOR.COLLATERAL SPECIALIST [address] [place] [address] PCP - General Internal Medicine 05/06/23 Hand [employer] Salter Relationship Specialty Start Date End Date Jeremy Ramirez, TOW TRUCK OPERATOR.COLLATERAL SPECIALIST [address] [place] [address] PCP - General Internal Medicine 05/06/23 Hand [employer] Salter Relationship Specialty Start Date End Date Jeremy Ramirez, TOW TRUCK OPERATOR.COLLATERAL SPECIALIST [address] [place] [address] PCP - General Internal Medicine 05/06/23 Celi Wahl MD [address] [place] [address] Internal Medicine 06/08/23 Joe Shah MD [address] [address] Ent - Otolaryngology 06/08/23 Autumn Omalley PA-C [address] [place] [address] Dermatology 06/08/23 Dominique Fisher MD [address] [place] [address] Endocrinology 06/08/23 Hand Meat Salter Relationship Specialty Start Date End Date Jeremy Ramirez, TOW TRUCK OPERATOR.COLLATERAL SPECIALIST [address] [place] [address] PCP - General Internal Medicine 05/06/23 Celi Wahl MD [address] [place] [address] Internal Medicine 06/08/23 Joe Shah MD [address] [address] Ent - Otolaryngology 06/08/23 Autumn Omalley PA-C [address] [place] [address] Dermatology 06/08/23 Dominique Fisher MD [address] [place] [address] Endocrinology 06/08/23 Hand Meat Salter Relationship Specialty Start Date End Date Jeremy Ramirez, TOW TRUCK OPERATOR.COLLATERAL SPECIALIST [address] [place] [address] PCP - General Internal Medicine 05/06/23 Celi Wahl MD [address] [place], [place] [id number] Internal Medicine 06/08/23 Joe Shah MD [address] [address] Ent - Otolaryngology 06/08/23 Autumn Omalley PA-C [address] [place] [address] Dermatology 06/08/23 Dominique Fisher MD [address] [place] [address] Endocrinology 06/08/23 Hand Meat Salter Relationship Specialty Start Date End Date Jeremy Ramirez, TOW TRUCK OPERATOR.COLLATERAL SPECIALIST [address] [place] [address] PCP - General Internal Medicine 05/06/23 Celi Wahl MD [address] [place] [address] Internal Medicine 06/08/23 Joe Shah MD [address] [address] Ent - Otolaryngology 06/08/23 Autumn Omalley PA-C [address] [place] [address] Dermatology 06/08/23 Dominique Fisher MD [address] [place] [address] Endocrinology 06/08/23 Hand Meat Salter Relationship Specialty Start Date End Date Jeremy Ramirez, TOW TRUCK OPERATOR.COLLATERAL SPECIALIST [address] [place] [address] PCP - General Internal Medicine 05/06/23 Celi Wahl MD [address] [place] [address] Internal Medicine 06/08/23 Joe Shah MD [address] [address] Ent - Otolaryngology 06/08/23 Autumn Omalley PA-C [address] [place] [address] Dermatology 06/08/23 Dominique Fisher MD [address] [place], [place] [address] Endocrinology 06/08/23 Hand Meat Salter Relationship Specialty Start Date End Date Jeremy Ramirez, TOW TRUCK OPERATOR.COLLATERAL SPECIALIST [address] [place], [place] [id number] PCP - General Internal Medicine 05/06/23 Celi Wahl MD [address] [place] [address] Internal Medicine 06/08/23 Joe Shah MD [address] [address] Ent - Otolaryngology 06/08/23 Autumn Omalley PA-C [address] [place] [address] Dermatology 06/08/23 Dominique Fisher MD [address] [place] [address] Endocrinology 06/08/23 Team Status: Active Member Role Status Dates Dr. Bello Davenport MD Primary Care Provider Active Team Status: Inactive Member Role Status Dates Dr. Bello Davenport MD Primary Care Provider, Attending Provider Active [employer] Relationship Specialty Start Date End Date Jeremy Ramirez, TOW TRUCK OPERATOR.COLLATERAL SPECIALIST [address] [place] [address] PCP - General Internal Medicine 05/06/23 Celi Wahl MD [address] [place] [address] Internal Medicine 06/08/23 Joe Shah MD [address] [address] Ent - Otolaryngology 06/08/23 Autumn Omalley PA-C [address] [place] [address] Dermatology 06/08/23 Dominique Fisher MD [address] [facility] [place] [address] Endocrinology 06/08/23 Team Status: Inactive Member Role Status Dates Dr. Bello Davenport MD Primary Care Provi rosa, Attending Provider, Referring Provider Active Hand Meat Salter Relationship Specialty Start Date End Date Jeremy Ramirez, TOW TRUCK OPERATOR.COLLATERAL SPECIALIST [address] [place] [address] PCP - General Internal Medicine 05/06/23 Celi Wahl MD [address] [place] [address] Internal Medicine 06/08/23 Joe Shah MD [address] [address] Ent - Otolaryngology 06/08/23 Autumn Omalley PA-C [address] [place] [address] Dermatology 06/08/23 Dominique Fisher MD [address] [place], [place] [address] Endocrinology 06/08/23 Hand Meat Salter Relationship Specialty Start Date End Date Jeremy Ramirez, TOW TRUCK OPERATOR.COLLATERAL SPECIALIST [address] [place] [address] PCP - General Internal Medicine 05/06/23 Celi Wahl MD [address] [place] [address] Internal Medicine 06/08/23 Joe Shah MD [address] [address] Ent - Otolaryngology 06/08/23 Autumn Omalley PA-C [address] [place] [address] Dermatology 06/08/23 Dominique Fisher MD [address] [place] [address] Endocrinology 06/08/23 Hand Meat Salter Relationship Specialty Start Date End Date Issac Bello Mac [address] [place] [address] PCP - General Gerontology 10/15/23 Celi Wahl MD [address] [place] [address] Internal Medicine 06/08/23 Joe Shah MD [address] [address] Ent - Otolaryngology 06/08/23 Autumn Omalley PA-C [address] [place] [address] Dermatology 06/08/23 Dominique Fisher MD [address] [place], [place] [id number] Endocrinology 06/08/23 Hand Meat Salter Relationship Specialty Start Date End Date Bello Daven[place] Chi [address] [address] PCP - General Gerontology 10/15/23 Celi Wahl MD [address] [place] [address] Internal Medicine 06/08/23 Joe Shah MD [address] [address] Ent - Otolaryngology 06/08/23 Autumn Omalley PA-C [address] [place] [address] Dermatology 06/08/23 Dominique Fisher MD [address] [place] [address] Endocrinology 06/08/23 Hand Meat Salter Relationship Specialty Start Date End Date Jeremy Ramirez, TOW TRUCK OPERATOR.COLLATERAL SPECIALIST [address] [place] [address] PCP - General Internal Medicine 05/06/23 10/14/23 Celi Wahl MD [address] [place] [address] Internal Medicine 06/08/23 Joe Shah MD [address] [address] Ent - Otolaryngology 06/08/23 Autumn Omalley PA-C [address] [place] [address] Dermatology 06/08/23 Dominique Fisher MD [address] [facility] [place] [address] Endocrinology 06/08/23 Team Status: Inactive Member Role [...] August 11, 2024 End: August 11, 2024 Hand Meat Salter Relationship Specialty Start Date End Date Bello [place] Chi [address] [address] PCP - General Gerontology 10/15/23 Celi Wahl MD [address] [place] [address] Internal Medicine 06/08/23 Joe Shah MD [address] [address] Ent - Otolaryngology 06/08/23 Autumn Omalley PA-C [address] [place] [address] Dermatology 06/08/23 Dominique Fisher MD [address] [place] [address] Endocrinology 06/08/23 Hand Meat Salter Relationship Specialty Start Date End Date Bello [place] Chi [address] [place] [address] PCP - General Gerontology 10/15/23 Celi Wahl MD [address] [place] [address] Internal Medicine 06/08/23 Joe Shah MD [address] [address] Ent - Otolaryngology 06/08/23 Autumn Omalley PA-C [address] [place] [address] Dermatology 06/08/23 Dominique Fisher MD [address] [address] Endocrinology 06/08/23 Hand Meat Salter Relationship Specialty Start Date End Date Bello [place] Chi [address] [facility] [address] [place] [address] PCP - General Gerontology 10/15/23 Celi Wahl MD [address] [place] [address] Internal Medicine 06/08/23 Joe Shah MD [address] [address] Ent - Otolaryngology 06/08/23 Autumn Omalley PA-C [address] [place] [address] Dermatology 06/08/23 Dominique Fisher MD [address] [place], [place] [address] Endocrinology 06/08/23 Hand Meat Salter Relationship Specialty Start Date End Date Bello [place] Chi [address] [facility] [address] [place], [place] [address] PCP - General Gerontology 10/15/23 Celi Wahl MD [address] [place], [place] [id number] Internal Medicine 06/08/23 Joe Shah MD [address] [address] Ent - Otolaryngology 06/08/23 Autumn Omalley PA-C [address] [place] [place] [address] Dermatology 06/08/23 Dominique Fisher MD [address] [place], [place] [address] Endocrinology 06/08/23 Hand Meat Salter Relationship Specialty Start Date End Date Bello [place] Chi [address] [facility] [address] [place], [place] [address] PCP - General Gerontology 10/15/23 Celi Wahl MD [address] [place] [address] Internal Medicine 06/08/23 Joe Shah MD [address] [address] Ent - Otolaryngology 06/08/23 Autumn Omalley PA-C [address] [place] [address] Dermatology 06/08/23 Dominique Fisher MD [address] [place] [address] Endocrinology 06/08/23 Hand Meat Salter Relationship Specialty Start Date End Date Bello [place] Chi [address] [place] [address] PCP - General Gerontology 10/15/23 Celi Wahl MD [address] [place] [address] Internal Medicine 06/08/23 Joe Shah MD [address] [address] Ent - Otolaryngology 06/08/23 Autumn Omalley PA-C [address] [place] [address] Dermatology 06/08/23 Dominique Fisher MD [address] [place] [address] Endocrinology 06/08/23 Hand Meat Salter Relationship Specialty Start Date End Date Bello [place] Chi [address] [place] [address] PCP - General Gerontology 10/15/23 Celi Wahl MD [address] [place] [address] Internal Medicine 06/08/23 Joe Shah MD [address] [address] Ent - Otolaryngology 06/08/23 Autumn Omalley PA-C [address] [place] [address] Dermatology 06/08/23 Dominique Fisher MD [address] [place] [address] Endocrinology 06/08/23 Hand Meat Salter Relationship Specialty Start Date End Date Bello [place] Chi [address] [facility] [address] [place] [address] PCP - General Gerontology 10/15/23 Celi Wahl MD [address] [place] [address] Internal Medicine 06/08/23 Joe Shah MD [address] [address] Ent - Otolaryngology 06/08/23 Autumn Omalley PA-C [address] [place] [address] Dermatology 06/08/23 Dominique Fisher MD [address] [facility] [place] [address] Endocrinology 06/08/23 Hand Meat Salter Relationship Specialty Start Date End Date Bello [place] Chi [address] [place], [place] [address] PCP - General Gerontology 10/15/23 Celi Wahl MD [address] [place], [place] [id number] Internal Medicine 06/08/23 Joe Shah MD [address] [address] Ent - Otolaryngology 06/08/23 Autumn Omalley PA-C [address] [place] [address] Dermatology 06/08/23 Dominique Fisher MD [address] [address] Endocrinology 06/08/23 Hand Meat Salter Relationship Specialty Start Date End Date Bello [place] Chi [address] [address] PCP - General Gerontology 10/15/23 Celi Wahl MD [address] [place] [address] Internal Medicine 06/08/23 Joe Shah MD [address] [address] Ent - Otolaryngology 06/08/23 Autumn Omalley PA-C [address] [place] [address] Dermatology 06/08/23 Dominique Fisher MD [address] [place] [address] Endocrinology 06/08/23 Team Status: Active Member Role/Relationship [...] End: December 26, 2024 Lise Araya NP, CLAIM ATTORNEY-C Attending Provider Active Start: December 26, 2024 End: December 26, 2024 Hand Meat Salter Relationship Specialty Start Date End Date IssacBello pop Chi [address] [facility] [address] [place], [place] [address] PCP - General Gerontology 10/15/23 Celi Wahl MD [address] [place] [address] Internal Medicine 06/08/23 Joe Shah MD [address] [address] Ent - Otolaryngology 06/08/23 Autumn Omalley PA-C [address] [place] [address] Dermatology 06/08/23 Dominique Fisher MD [address] [place] [address] Endocrinology 06/08/23 Hand Meat Salter Relationship Specialty Start Date End Date Bello [place] Chi [address] [facility] [address] [place] [address] PCP - General Gerontology 10/15/23 Celi Wahl MD [address] [place] [address] Internal Medicine 06/08/23 Joe Shah MD [address] [address] Ent - Otolaryngology 06/08/23 Autumn Omalley PA-C [address] [place] [address] Dermatology 06/08/23 Dominique Fisher MD [address] [place] [address] Endocrinology 06/08/23 Hand Meat Salter Relationship Specialty Start Date End Date Issac, Bello Mac [address] [facility] [address] [place], [place] [address] PCP - General Gerontology 10/15/23 Celi Wahl MD [address] [place] [address] Internal Medicine 06/08/23 Joe Shah MD [address] [address] Ent - Otolaryngology 06/08/23 Autumn Omalley PA-C [address] [place] [address] Dermatology 06/08/23 Dominique Fisher MD [address] [place] [address] Endocrinology 06/08/23 Hand Meat Salter Relationship Specialty Start Date End Date Issac Bello Mac [address] [facility] [address] [place], [place] [id number] PCP - General Gerontology 10/15/23 Celi Wahl MD [address] [place] [address] Internal Medicine 06/08/23 Joe Shah MD [address] [address] Ent - Otolaryngology 06/08/23 Autumn Omalley PA-C [address] [place] [address] Dermatology 06/08/23 Dominique Fisher MD [address] [place] [address] Endocrinology 06/08/23 Hand Meat Salter Relationship Specialty Start Date End Date Bello [place] Chi [address] [address] PCP - General Gerontology 10/15/23 Celi Wahl MD [address] [place] [address] Internal Medicine 06/08/23 Joe Shah MD [address] [address] Ent - Otolaryngology 06/08/23 Autumn Omalley PA-C [address] [place] [address] Dermatology 06/08/23 Dominique Fisher MD [address] [place] [address] Endocrinology 06/08/23 Hand Meat Salter Relationship Specialty Start Date End Date Bello [place] Chi [address] [facility] [address] [place] [address] PCP - General Gerontology 10/15/23 Celi Wahl MD [address] [place] [address] Internal Medicine 06/08/23 Joe Shah MD [address] [address] Ent - Otolaryngology 06/08/23 Autumn Omalley PA-C [address] [place] [address] Dermatology 06/08/23 Dominique Fisher MD [address] [place] [address] Endocrinology 06/08/23 Hand Meat Salter Relationship Specialty Start Date End Date Bello [place] Chi [address] [facility] [address] [place] [address] PCP - General Gerontology 10/15/23 Celi Wahl MD [address] [place] [address] Internal Medicine 06/08/23 Joe Shah MD [address] [address] Ent - Otolaryngology 06/08/23 Autumn Omalley PA-C [address] [place] [address] Dermatology 06/08/23 Dominique Fisher MD [address] [place] [address] Endocrinology 06/08/23 Team Status: Inactive Member Role/Relationship [...] End: December 26, 2024 Lise Araya NP CLAIM ATTORNEY-C Attending Provider Active Start: December 26, 2024 End: December 26, 2024 Team Status: Inactive Member Role/Relationship Status Dates Dr. Bello Davenport MD Primary Care Provider Active Start: January 12, 2025 End: January 12, 2025 ASHLEY, SHANE Attending Provider Active Start: [facility] 2024 End: January 12, 2025 ASHLEY, SHANE Referring Provider Active Start: [facility] 2024 End: January 12, 2025 Team Status: Active Member Role/Relationship Status Dates Dr. Bello Davenport MD Primary Care Provider Active Start: January 15, 2025 ASHLEY, SHANE Attending Provider Active Start: [facility] 2024 ASHLEY, SHANE Referring Provider Active Start: [facility] 2024 Team Status: Active Member Role/Relationship Status Dates Dr. Bello Davenport MD Primary Care Provider Active Start: January 18, 2025 Lise Araya NP, CLAIM ATTORNEY-C Attending Provider Active Start: January 18, 2025 Lise Araya CLAIM ATTORNEY, CLAIM ATTORNEY-C Referring Provider Active Start: January 18, 2025 Team Status: Inactive Member Role/Relationship Status Dates Dr. Bello Davenport MD Primary Care Provider Active Start: January 18, 2025 End: January 18, 2025 Lise Araya CLAIM ATTORNEY, CLAIM ATTORNEY-C Attending Provider Active Start: January 18, 2025 End: January 18, 2025 Lise Araya CLAIM ATTORNEY, CLAIM ATTORNEY-C Referring Provider Active Start: January 18, 2025 End: January 18, 2025 Team Status: Active Member Role/Relationship Status Dates Dr. Bello Davenport MD Primary Care Provider Active Start: January 22, 2025 ASHLEY, SHANE Attending Provider Active Start: [facility] 2024 ASHLEY, SHANE Referring Provider Active Start: [facility] 2024 Team Status: Inactive Member Role/Relationship Status Dates Dr. Bello Davenport MD Primary Care Provider Active Start: January 26, 2025 End: January 28, 2025 ASHLEY, SHANE Attending Provider Active Start: [facility] 2024 End: January 28, 2025 ASHLEY, SHANE Referring Provider Active Start: [facility] 2024 End: January 28, 2025 Team Status: Active Member Role/Relationship Status Dates Dr. Bello Davenport MD Primary care physician Active Team Status: Inactive Member Role/Relationship Status Dates Dr. Bello Davenport MD Primary care physician Active Start: December 26, 2024 End: December 26, 2024 Dr. Bello Davenport MD Referring Provider Active Start: December 26, 2024 End: December 26, 2024 Lise Araya CLAIM ATTORNEY, CLAIM ATTORNEY-C Attending physician Active Start: December 26, 2024 End: December 26, 2024 Team Status: Inactive Member Role/Relationship Status Dates Dr. Bello Davenport MD Primary care physician Active Start: January 12, 2025 End: January 12, 2025 ASHLEY, SHANE Attending physician Active Start: [facility] 2024 End: January 12, 2025 ASHLEY, SHANE Referring Provider Active Start: [facility] 2024 End: January 12, 2025 Team Status: Inactive Member Role/Relationship Status Dates Dr. Bello Davenport MD Primary care physician Active Start: January 18, 2025 End: January 18, 2025 Lise Araya CLAIM ATTORNEY, CLAIM ATTORNEY-C Attending physician Active Start: January 18, 2025 End: January 18, 2025 Lise Araya CLAIM ATTORNEY, CLAIM ATTORNEY-C Referring Provider Active Start: January 18, 2025 [...] BE BASED ON THE PRIMARY CLINICAL RECORDS. [facility]. provides no warranty or guarantee of the accuracy or completeness of information in this document.
[2025-05-18 06:20] VITALS: BP 127/81; PULSE 73; RESP 16; TEMP 36.9; O2SAT 100; BMI 24.1
[2025-05-18] MEDS: Lactated Ringers 1,000 ML 15 ML IV (06:29)
--- NOTE | 2025-05-18 06:53 | PRE.ANES_ITS ---
ASA Classification* ASA Classification ASA Classification: 2 Assessment & Plan Anesthesia* Anesthesia Assessment Anesthesia Assessment: Discussed sedation and/or anesthesia options, risks, benefits, and alternatives with patient/parents/legal guardian/POA. Questions invited. The patient/parents/legal guardian/POA seems to understand and agrees to proceed with anesthesia plan. Reviewed the physical assessment, medical history, allergy history and patient home medications list prior to surgery/procedure/anesthetic and documented any changes. Performed airway and anesthesia risk assessments. Anesthesia Type Anesthesia Type: MAC History Source History Obtained from:: Patient and Chart Anesthesia Focused Assessment* Temperature: 98.5 F Pulse Rate: 73 Blood Pressure: 127/81 Respiratory Rate: 16 Pulse Ox: 100 Oxygen Delivery Method: Room Air Airway Assessment Mouth opens: >3 cm Mallampati Score: I Teeth Condition: Caps/Crowns (Patient has a crown on the right lower molar. It is tight.) Neck Range of motion (ROM): Full ROM Labs Anesthesia Preop lab: CBC WBC, (4.4-11.0) 5.7 K/mm3 08/11/24, 11: RBC, (4.2-5.4) 5.07 M/mm3 08/11/24, 11: Hgb, (12.0-15.0) 14.7 g/dL 08/11/24, 11: Hct, (37-47) 43.9 % 08/11/24, 11:01 Plt Count, (150-450) 296 K/mm3 08/11/24, 11:01 CHEMISTRY Potassium, (3.3-5.1) 4.4 mmol/L 08/11/24, 11: Sodium, (133-145) 140 mmol/L 08/11/24, 11: BUN, (4-19) 15 mg/dL 08/11/24, 11:01 Creatinine, (0.70-1.20) 0.75 mg/dL 08/11/24, 11: Glucose, (70-99) 88 mg/dL 08/11/24, 11: TSH, (0.300-4.200) 0.902 uIU/mL 08/11/24, 11:01 COAG Pre-Assessment Diagnosis/Proposed Procedure Planned Operative Procedure(s): Colonoscopy Anesthesia History Anesthesia History - director of compliance: Anesthesia History - director of compliance Hx Hospitalization No 05/17/25 08:56 Any Problems With Anesthesia No 05/17/25 08:56 Cholinesterase deficiency No 05/17/25 08:56 You/Your Family Experience No 05/17/25 08:56 fever (hyperthermia) with Relationship Recent Exposure to Contagious No 05/18/25 06:20 Disease Does patient have nerve No 05/17/25 08:56 stimulator Patient instructed to have device shut off --Does patient have Pacemaker No 05/18/25 06:20 or ICD? When Was Last Pacemaker Check QUESTION #4 FULL TEXT: You/Your Family Experience fever (hyperthermia) with Anesthesia Last Oral Intake Last Oral intake: Last Oral Intake NPO since 03:15 05/18/25 06:20 Meds taken in AM with sips of water? Meds patient instructed to take am of surgery Any additional information?: Yes NPO since: 03:15 (Patient finished her prep at 3:15 AM.) Meds taken in AM with sips of water?: No PONV PONV - director of compliance: PONV - director of compliance Female Yes 05/17/25 08:56 HX of Motion Sickness Yes 05/17/25 08:56 HX of N/V After Surgery No 05/17/25 08:56 Non-Smoker Yes 05/17/25 08:56 Duration of Surgery greater No 05/17/25 08:56 than 60 minutes Number of Risk Factors 3 05/17/25 08:56 PONV Score Moderate Risk 05/17/25 08:56 Height & Weight Height & Weight: Anesthesia: Height & Weight Height 5 ft 2 in 05/18/25 06:20 Weight: 59.874 kg 05/18/25 06:20 Body Mass Index (BMI) 24.1 05/18/25 06:20 Respiratory Assessment Respiratory Assessment - director of compliance: Respiratory Tract Infection Hx - director of compliance Hx Respiratory Tract Infection No 05/17/25 08:56 STOP Sleep Apnea STOP Sleep Apnea - director of compliance: STOP Sleep Apnea - director of compliance Hx Hypertension No 05/17/25 08:56 Hx Sleep Apnea No 05/17/25 08:56 CPAP BIPAP Do you snore loudly (louder No 05/17/25 08:56 than talking or can be heard Do you often feel tired/ No 05/17/25 08:56 fatigued/ sleepy during daytime? Has anyone observed you stop No 05/17/25 08:56 breathing during sleep? STOP Results Negative 05/17/25 08:56 QUESTION #5 FULL TEXT : Do you snore loudly (louder than talking or can be heard through closed doors)? Tobacco Use History Tobacco Use History - director of compliance: Tobacco Use History - director of compliance Tobacco Use Smoking Status Never smoker 05/17/25 08:56 Hx Tobacco Use No 05/17/25 08:56 Years Smoking Packs Smoked per Day Smoking Cessation Date was within the last 15 years Hx Smoking Cessation Date Hx Smoking Cessation Counseling Hematologic Medial History Hematologic Hx - director of compliance: Hematologic Medical Hx - clinical support specialist Hx of Blood Transfusion No 05/17/25 08:56 Hx of Transfusion in last 3 No 05/17/25 08:56 Months Date of Last Transfusion (if within last 3 months) Ever experience any problems No 05/17/25 08:56 with transfusion(s)? Specify any problems Hx of Preganancy in last 3 No 05/17/25 08:56 Months Nurse Filling Out Transfusion JZOLLINGE 05/17/25 08:56 & Questions: Date: 05/17/25 05/17/25 08:56 Time: 08:57 05/17/25 08:56 Patient unable to answer at this time (ie. confused, unrespo /Reproduction History /Reproductive History - director of compliance: /Reproductive Hx- director of compliance Hx Now No 05/17/25 08:56 Gestational Age (in weeks): EDC: Hx Hx Para Hx Section SAB No 05/17/25 08:56 Does the father of the baby or his family experience fever w Father of the baby Malignant Hypertension history comment Active Medications Active Medications: Current Medications Generic Name Dose Route Start Last Admin Trade Name Freq PRN Reason Stop Dose Admin Lactated Ringer's 1,000 mls @ 15 mls/hr 05/18/25 06:15 05/18/25 06:29 IV 15 mls/hr .Q48H RJ Administration PFSH Medical History Wears glasses Dietary restriction Cardiology follow-up encounter Superior labrum eevvvrpt-za-ewsgccerr (SLAP) tear of right shoulder Bilateral shoulder pain Right shoulder pain H/O urinary frequency Arthritis High cholesterol Injury of back History of IBS Heartburn Non-smoker Shortness of breath on exertion History of echocardiogram Long COVID Left shoulder pain Home Medications ?Medication ?Instructions ?Recorded ?Last Taken ?Type estradiol 0.01% (0.1 mg/gram) See Rx Instructions vagi nal 12/26/24 Unknown Rx vaginal cream .COMPLEX #42.5 grams albuterol sulfate 90 mcg/actuation 2 puff inhalation Q 6 PRN wheezing 05/14/25 Unknown History aerosol inhaler fluticasone propionate 50 2 spray intranasal QDAY 04/30 10/22 Unknown History mcg/actuation nasal spray,suspension (Flonase Allergy Relief) Allergy/AdvReac Type Severity Reaction Status Date / Time doxycycline Allergy gi upset Verified 05/18/25 06:20 Sulfa (Sulfonamide Allergy Overheats Verified 05/18/25 06:20 Antibiotics) (sulfa drugs) and gets very tired atorvastatin (From Lipitor) AdvReac Mild GI upset Verified 05/18/25 06:20 cetirizine (From Zyrtec) AdvReac Mild drowsiness Verified 05/18/25 06:20 ciprofloxacin (From Cipro) AdvReac Mild Other Verified 05/18/25 06:20 loratadine (From Claritin) AdvReac Mild hyperactivi Verified 05/18/25 06:20 ty Family History Father Cancer Stomach Heart disease Mother Thyroid disorder Heart disease Alzheimer dementia Brother Heart disease Surgical History History of esophagogastroduodenoscopy (EGD) History of colonoscopy History of wisdom tooth extraction History of bilateral cataract extraction History of ear surgery Social History household members: spouse Smoking Status: Never smoker alcohol intake: former substance use type: does not use seatbelt use: always do you feel safe at home: Yes additional social history: - Jorge Review of Systems (Anesthesia) ROS Narrative System reviewed and no additional complaints, except as documented.
--- NOTE | 2025-05-18 06:56 | HP.PCM_ITS ---
HPI - General General Date of Admission: 05/18/25 Date of Service: 05/18/25 Chief Complaint: abdominal pain HPI Narrative TIFFANIE RAMSEY, is a 64 F who presents [ Chief Complaint: Abdominal pain Last office visit 10/05/2024 with concerns for left upper quadrant abdominal pain. Pain is intermittent and is resolved with bowel movement. EGD 03/08/2025 - Z-line irregular, 39 cm from the incisors. Biopsied. - Small hiatal hernia. - Erythematous mucosa in the gastric body. Biopsied. - Congested duodenal mucosa. Biopsied. Pathology small intestine small bowel with no pathologic change. Stomach oxyntic mucosa with mild chronic inflammation negative for H. pylori. Distal esophagus benign squamous epithelium with reactive changes and Oxyntic cardiac type mucosa with mild chronic inflammation negative for goblet cells OV 04/13/2025 - Patient having lower abdominal cramping - Intermittent loose stool and constipation - Seems to be triggered when she started omeprazole therefore she discontinued - Last colonoscopy in 2020 - Has taken fiber in the past stopped constipation - Had similar issues a year ago when her was in the hospital [facility] Medical History Wears glasses Dietary restriction Cardiology follow-up encounter Superior labrum [id number] (SLAP) tear of right shoulder Bilateral shoulder pain Right shoulder pain H/O urinary frequency Arthritis High cholesterol Injury of back History of IBS Heartburn Non-smoker Shortness of breath on exertion History of echocardiogram Long COVID Left shoulder pain Home Medications ?Medication ?Instructions ?Recorded ?Last Taken ?Type estradiol 0.01% (0.1 mg/gram) See Rx Instructions vagi nal 12/26/24 Unknown Rx vaginal cream .COMPLEX #42.5 grams albuterol sulfate 90 mcg/actuation 2 puff inhalation Q 6 PRN wheezing 05/14/25 Unknown History aerosol inhaler fluticasone propionate 50 2 spray intranasal QDAY 04/30 10/22 Unknown History mcg/actuation nasal spray,suspension (Flonase Allergy Relief) Allergy/AdvReac Type Severity Reaction Status Date / Time doxycycline Allergy gi upset Verified 05/18/25 06:20 Sulfa (Sulfonamide Allergy Overheats Verified 05/18/25 06:20 Antibiotics) (sulfa drugs) and gets very tired atorvastatin (From Lipitor) AdvReac Mild GI upset Verified 05/18/25 06:20 cetirizine (From Zyrtec) AdvReac Mild drowsiness Verified 05/18/25 06:20 ciprofloxacin (From Cipro) AdvReac Mild Other Verified 05/18/25 06:20 loratadine (From Claritin) AdvReac Mild hyperactivi Verified 05/18/25 06:20 ty Family History Father Cancer Stomach Heart disease Mother Thyroid disorder Heart disease Alzheimer dementia Brother Heart disease Surgical History History of esophagogastroduodenoscopy (EGD) History of colonoscopy History of wisdom tooth extraction History of bilateral cataract extraction History of ear surgery Social History household members: spouse Smoking Status: Never smoker alcohol intake: former substance use type: does not use seatbelt use: always do you feel safe at home: Yes additional social history: - Jorge ROS Constitutional Constitutional: Denies fatigue, fever(s), poor appetite, weight gain or weight loss Gastrointestinal Gastrointestinal: Denies belching, bloating, change in bowel habits, change in stool character, chewing difficulty, coffee ground emesis, constipation, cramping, diarrhea, dyspepsia, dysphagia, early satiety, excessive flatus, fecal incontinence, heartburn, hematemesis, hematochezia, hemorrhoids, loose stools, melena, nausea, odynophagia, rectal bleeding, tenesmus, vomiting or weight changes Patient's Goals Of Care . What would you like to achieve or improve as a result of your hospital stay?: no Vital Signs Vital Signs Vital Signs: 05/18/25 06:20 05/18/25 06:20 05/18/25 06:20 Temperature 98.5 F Temperature Source Temporal Pulse Rate 73 Respiratory Rate 16 Respiratory Pattern Normal Blood Pressure 127/81 H Blood Pressure Mean 96 Blood Pressure Source Monitor Blood Pressure Position Sitting Blood Pressure Location Right Arm Baseline BP 127/81 Pulse Ox 100 Oxygen Delivery Method Room Air Weight Weight: 132 lb Body Mass Index (BMI) 24.1 Physical Exam Const alert, oriented x3, no apparent distress and healthy appearing General Appearance: cooperative GI normal to inspection, nondistended, normoactive bowel sounds, soft to palpation, non-tender and non-distended Percussion: normal to percussion Rectal Exam: deferred Assessment & Plan Assessment/Plan (1) Change in bowel habit: PLAN: Assessment and Plan Assessment and Plan (1) Abdominal pain: Status: Acute Plan: Tiffanie is a 64-year-old female patient here today for evaluation of upper abdominal cramping associated with intermittent constipation and diarrhea. Patient's abdominal cramping is mostly on the lower left side. She has been having intermittent episodes of constipation. She felt similar symptoms a year ago when she was under a lot of stress with her in the hospital. Last colonoscopy was in 2020 with normal findings. Due to a change in her bowel habits and abdominal cramping recommended repeat colonoscopy. Patient was agreeable to proceed. Pending results will consider further workup and/or treatment. In the interim, I recommended starting a daily fiber supplement. - Colonoscopy - Fiber supplement - Consider dicyclomine - Follow-up after procedure Note: Portions of this note may have been selectively carried forward from previ ous documentation to ensure continuity and accuracy of the clinical record. All imported information has been reviewed and updated as necessary to reflect the current patient status, findings, and clinical decision-making for this encounter. [employer] speech recognition supervisor heat treating software was used to create portions of this document. Sound alike and misspelled words, as well as other supervisor heat treating errors may be contained in the documentation. (2) Change in bowel habit: Status: Acute ]
[2025-05-18 06:58] VITALS: BP 127/81; PULSE 73; RESP 16; TEMP 36.9; O2SAT 100
[2025-05-18] MEDS: Lactated Ringers 500 ML IV (07:03)
--- NOTE | 2025-05-18 07:20 | PCM.POST.ANE ---
Anesthesia: Postop Eval I Current Vital Signs Temperature: 98 F Pulse Rate: 73 Blood Pressure: 108/69 Respiratory Rate: 16 Pulse Ox: 98 Oxygen Delivery Method: Room Air Assessment Airway patent: Yes Spontaneous unlabored respirations: Yes Mental status: Awake and Calm nausea: No Vomiting: No Anesthesia Complication: Yes Anesthesia Complication Comment:: none Fluid Hydration Crystalloid volume administer (ml): 500 Total IV fluid infused: 500 Progress Note Anesthesia document: Postop Eval 1 completed: Yes
[2025-05-18 07:25] VITALS: BP 105/65; BP 127/81; PULSE 73; RESP 18; TEMP 36.1; O2SAT 97
[2025-05-18 07:30] VITALS: BP 103/68; BP 127/81; PULSE 72; RESP 18; O2SAT 99
--- NOTE | 2025-05-18 07:32 | OP.PROVAT_ITS ---
05/18/2025 Alriio Alberto Re : Colonoscopy procedure for More Saenzr Remy This procedure was performed on Sunday, May 18, 2025. My impressions and recommendations are as follows: Impressions : - Preparation of the colon was fair. - Diverticulosis in the recto-sigmoid colon and in the sigmoid colon. - Stool in the recto-sigmoid colon, in the sigmoid colon, in the transverse colon and in the cecum. - No specimens collected. Recommendations : - Discharge patient to home. - Resume previous diet. - Continue present medications. - Repeat colonoscopy in 3 years for surveillance. My findings are described in the full procedure note, which is enclosed. If I can be of further assistance, please feel free to contact me at . Sincerely, Chuck Dalton, 05/18/2025 7:30:32 AM This report has been signed electronically.
--- NOTE | 2025-05-18 07:32 | OP.COLON_ITS ---
Patient Name: More Hawk Procedure Date: 05/18/2025 6:55 AM Date of : 1960 Age: 64 Procedure: Colonoscopy Indications: Screening for colorectal malignant neoplasm Providers: DO Nic Linares MD: Alirio Alberto Medicines: Monitored Anesthesia Care Patient Profile: This is a 64 year old female. Refer to note in patient chart for documentation of history and physical. Last Colonoscopy: several years ago. Complications: No immediate complications. Procedure: Pre-Anesthesia Assessment: - Prior to the procedure, a History and Physical was performed, and patient medications and allergies were reviewed. The patient is competent. The risks and benefits of the procedure and the sedation options and risks were discussed with the patient. All questions were answered and informed consent was obtained. Patient identification and proposed procedure were verified by the physician in the pre-procedure area. Mental Status Examination: alert and oriented. Airway Examination: normal oropharyngeal airway and neck mobility. Respiratory Examination: clear to auscultation. CV Examination: normal. Prophylactic Antibiotics: The patient does not require prophylactic antibiotics. Prior Anticoagulants: The patient has taken no anticoagulant or antiplatelet agents except for NSAID medication. ASA Grade Assessment: II - A patient with mild systemic disease. After reviewing the risks and benefits, the patient was deemed in satisfactory condition to undergo the procedure. The anesthesia plan was to use monitored anesthesia care (MAC). Immediately prior to administration of medications, the patient was re-assessed for adequacy to receive sedatives. The heart rate, respiratory rate, oxygen saturations, blood pressure, adequacy of pulmonary ventilation, and response to care were monitored throughout the procedure. The physical status of the patient was re-assessed after the procedure. After I obtained informed consent, the scope was passed under direct vision. Throughout the procedure, the patient's blood pressure, pulse, and oxygen saturations were monitored continuously. The Colonoscope was introduced through the anus and advanced to the terminal ileum. The colonoscopy was performed without difficulty. The patient tolerated the procedure well. The quality of the bowel preparation was fair. The terminal ileum, ileocecal valve, appendiceal orifice, and rectum were photographed. Scope In: 7:07:09 AM Scope Withdrawal Time 0 hours 8 minutes 10 seconds Scope Out: 7:18:31 AM Total Procedure Duration Time 0 hours 11 minutes 22 seconds Findings: The perianal and digital rectal examinations were normal. Two small-mouthed diverticula were found in the recto-sigmoid colon and sigmoid colon. Stool was found in the recto-sigmoid colon, in the sigmoid colon, in the transverse colon and in the cecum. Non-bleeding internal hemorrhoids were found during retroflexion. The hemorrhoids were Grade II (internal hemorrhoids that prolapse but reduce spontaneously). Impression: - Preparation of the colon was fair. - Diverticulosis in the recto-sigmoid colon and in the sigmoid colon. - Stool in the recto-sigmoid colon, in the sigmoid colon, in the transverse colon and in the cecum. - No specimens collected. Recommendation: - Discharge patient to home. - Resume previous diet. - Continue present medications. - Repeat colonoscopy in 3 years for surveillance. Procedure Code(s): --- Professional --- 73871, Colonoscopy, flexible; diagnostic, including collection of specimen(s) by brushing or washing, when performed (separate procedure) CPT copyright 2021 [employer]. All rights reserved. The codes documented in this report are preliminary and upon professional fee coder review may be revised to meet current compliance requirements. Chuck Dalton DO 05/18/2025 7:30:32 AM This report has been signed electronically. Number of Addenda: 0 Note Initiated On: 05/18/2025 6:55 AM
[2025-05-18 07:35] VITALS: BP 108/69; BP 120/76; BP 127/81; PULSE 70; PULSE 73; RESP 16; RESP 18; TEMP 36.6; O2SAT 95; O2SAT 98
[2025-05-18 07:40] VITALS: BP 127/81
--- NOTE | 2025-05-18 10:14 | POSTOPAN2_ITS ---
Anesthesia Postop Eval I Sum Postop Eval Completion status Anesthesia document: Postop Eval 1 completed: Yes Anesthesia Postop Eval I Summary Anesthesia Postop Eval I Summary: Anesthesia Postop Eval I: Assessment Summary Airway patent Yes 05/18/25 07:35 [email or web address] Spontaneous unlabored Yes 05/18/25 07:35 TANNERY [email or web address] respirations Mental status Awake,Calm 05/18/25 07:35 TANNERY [email or web address] nausea No 05/18/25 07:35 TANNERY [email or web address] Vomiting No 05/18/25 07:35 TANNERY [email or web address] Anesthesia Postop Eval I: Fluid Summary Crystalloid volume administer 500 05/18/25 07:35 TANNERY [email or web address].MDOT (ml) Colloids volume administered ( ml) Blood Product volume administered (ml) Total IV fluid infused 500 05/18/25 07:35 TANNERY [email or web address] Anesthesia Postop Eval I: Summary Notes Anesthesia Complication Yes 05/18/25 07:35 TANNERY [email or web address] Anesthesia Complication none 05/18/25 07:35 [email or web address] [email or web address] Comment: Post-operative progress note Anesthesia: Postop Eval II Evaluation Mental status: Awake and Calm Pain Level: 0 nausea: No Vomiting: No Complications Anesthesia Complication: No
--- NOTE | 2025-05-18 10:14 | PCM.POSTANE2 ---
Anesthesia Postop Eval I Sum Postop Eval Completion status Anesthesia document: Postop Eval 1 completed: Yes Anesthesia Postop Eval I Summary Anesthesia Postop Eval I Summary: Anesthesia Postop Eval I: Assessment Summary Airway patent Yes 05/18/25 07:35 FINANCE [email or web address] Spontaneous unlabored Yes 05/18/25 07:35 FINANCE [email or web address] respirations Mental status Awake,Calm 05/18/25 07:35 FINANCE [email or web address] nausea No 05/18/25 07:35 FINANCE CLERK.MDOT Vomiting No 05/18/25 07:35 FINANCE CLERK.MDOT Anesthesia Postop Eval I: Fluid Summary Crystalloid volume administer 500 05/18/25 07:35 FINANCE CLERK.MDOT (ml) Colloids volume administered ( ml) Blood Product volume administered (ml) Total IV fluid infused 500 05/18/25 07:35 FINANCE [email or web address] Anesthesia Postop Eval I: Summary Notes Anesthesia Complication Yes 05/18/25 07:35 FINANCE [email or web address] Anesthesia Complication none 05/18/25 07:35 FINANCE [email or web address] Comment: Post-operative progress note Anesthesia: Postop Eval II Evaluation Mental status: Awake and Calm Pain Level: 0 nausea: No Vomiting: No Complications Anesthesia Complication: No
== END 2025-05-18 08:05 | disposition home or self-care (01) ==
LOC: EN 05:59 → AC 05:59
PROVIDERS: PCP Family Medicine; Referring Provider Family Medicine; Visit Provider Internal Medicine Gastroenterology
PROC: 0DJD8ZZ Inspection of Lower Intestinal Tract, Via Natural or Artificial Opening Endoscopic (ICD-10-PCS; CPT 45378; principal; 2025-05-18 06:55)
DX: R10.12 Left upper quadrant pain (principal); E78.00 Pure hypercholesterolemia, unspecified; K64.1 Second degree hemorrhoids; K57.30 Diverticulosis of large intestine without perforation or abscess without bleeding; Z98.41 Cataract extraction status, right eye; Z98.42 Cataract extraction status, left eye; R19.4 Change in bowel habit
CPT/HCPCS: 45378

== ENCOUNTER → 2025-05-23 | Outpatient (CLI) | payer MEDICARE, OTHER, SELFPAY ==
[2025-05-03 07:41] VITALS: BMI 24.7
--- OUTSIDE RECORDS SUMMARY | 2025-05-23 08:33 | XMS RPT_ITS | CCD ---
Author Organization [facility] Care Team Providers Care Quality Improvement Manager Name Role Phone Miscellaneous, SJ Attending Unavailable [...] Attending Unavailable NATHALIA LOU Referring Unavailable Gómez ENGINEERING AND OPERATIONS DIRECTOR.ROADSIDE MECHANIC, Jeremy M Primary Care Provider Vish CASTRO, Celi Unavailable Alyssa CASTRO, Joe Unavailable Shahram PA-C, Autumn Unavailable Phillip CASTRO, Dominique Gonsales Unavailable Gómez ENGINEERING AND OPERATIONS DIRECTOR.ROADSIDE MECHANIC, Jeremy Primary Care Provider CHENG CASTRO, JASWANT Attending Unavailable CHENG CASTRO, JASWANT Attending Unavailable Bello Davenport Chi Primary Care Provider Gómez ENGINEERING AND OPERATIONS DIRECTOR.ROADSIDE MECHANIC, Jeremy Primary Care Provider BELLO DAVENPORT CHI Primary Care Unavailable JAYME INGRAM Attending Unavailable JEREMY RAMIREZ Referring Unavailable JEREMY RAMIREZ Primary Care Unavailable Issac CASTRO, Dr. Bello Mac Primary Care Provider [phone] Issac CASTRO, Dr. Bello Mac Attending Provider Issac CASTRO, Dr. Bello Mac Referring Provider Issac CASTRO, Dr. Bello Mac Primary Care Provider [phone] Issac CASTRO, Dr. Bello Mac Referring Provider Shan Bolaños MD Attending Provider [phone] Kevin CASTRO, Dr. Castellon Attending Provider [phone] Pina Reyes Attending Provider Lise Orozco Attending Provider Issac CASTRO, Dr. Bello Mac Primary Care Provider Issac CASTRO, Dr. Bello Mac Referring Provider SHANE, ASHLEY Attending Provider SHANE, ASHLEY Referring Provider SHANE, ASHLEY Attending Provider SHANE, ASHLEY Referring Provider [phone] Marshal DRY HEAT ROOM ATTENDANT-CLise Referring Provider SHANE, ASHLEY Attending Provider SHANE, ASHLEY Referring Provider SHANE, ASHLEY Attending Provider [phone] SHANE, ASHLEY Referring Provider [phone] TAQUERIA VIEIRA Referring Unavailable ISSAC, BELLO CHI Primary Care Unavailable Issac CASTRO, Dr. Bello Mac Primary Care Physician Issac CASTRO, Dr. Bello Mac Referring Provider Marshal DRY HEAT ROOM ATTENDANT-Lise Verdin Attending Physician SHANE, ASHLEY Attending Physician [phone] SHANE, ASHLEY Attending Physician [phone] Sha [place], Dr. Woods Attending Physician Dariel [...] Brown Attending Unavailable Pina Robles Attending Unavailable Issca, Bello Chi Primary Care Unavailable Issac, Bello [...] Unavailable Issac, Bello Chi Primary Care Unavailable oJse Guo Attending Unavailable Jose Guo Referring Unavailable [...] Dizziness, Other MG-Orthopaedi cs-[address] Work Phone: [phone] Sulfonamides (antibiotic) (18 sources) Sulfonamides (Antibiotic); Translations: [Sulfa Drugs] Drug Allergy Other, Unknown MG-Orthopaedi cs[facility] Work Phone: [phone] (20 sources) Sulfonamides (Antibiotic); Translations: [Sulfa Drugs] drug allergy Other DD-UWNAJ-[place] [address] DO Work Phone: [phone] (1 source) drug allergy Unknown UV-JDQHM-[place] [address] DO Work Phone: [phone] (1 source) drug allergy Dizziness XF-FLDJP-[place] [address] DO Work Phone: [phone] (17 sources) Omeprazole; Translations: [omeprazole] Drug Allergy Other -Otolaryngo [facility] Work Phone: (20 sources) pantoprazole; Translations: [Protonix] Drug Allergy Dizziness -Otolaryngo [facility] Work Phone: (20 sources) Sulfamethoxazole; Translations: [Gantanol] Drug Allergy Unknown -Otolaryngo [facility] Work Phone: (20 sources) Cetirizine; Translations: [CETIRIZINE HCL] Drug Allergy 6 Intolerance [facility] Work Phone: (20 sources) fexofenadine; Translations: [FEXOFENADINE HCL] Drug Allergy 6 Intolerance [facility] Work Phone: (20 sources) Loratadine; Translations: [LORATADINE] Drug Allergy 6 Intolerance [facility] Work Phone: (20 sources) Sulfonamides (Antibiotic); Translations: [SULFA (SULFONAMIDE ANTIBIOTICS)] Propensity to adverse reactions 5 Rash [facility] Work Phone: (20 sources) atorvastatin; Translations: [ATORVASTATIN] Drug Allergy 4 GI Upset [facility] (11 sources) Ciprofloxacin; Translations: [CIPROFLOXACIN] Drug Allergy 5 Other: See Comments [facility] Comment on above: Abdominal pain (7 sources) Sulfonamides (Antibiotic) Allergy to substance 5 Overheats and gets very tired [facility] (5 sources) Doxycycline; Translations: [DOXYCYCLINE] Drug Allergy 5 Other: See Comments [facility] (1 source) Ciprofloxacin Drug Allergy 5 [facility] Repository (1 source) Doxycycline Drug Allergy 5 [facility] Repository (1 source) Sulfonamides (Antibiotic) Drug allergy (disorder) 5 [facility] Repository Medications Current Medications Medication Drug Class(es) Dates Sig (Normalized) Sig (Original) 8 hr acetaminophen 650 mg extended release oral tablet (7 sources) Start: 12-26-2024 take 1 tablet by mouth once daily Start: 12-26-2024 take 1 tablet by mouth every e ight hours [id number] actuat albuterol 0.09 mg/actuat metered dose [...] twice daily for 7 days. bifidobacterium animalis [id number] unt / bifidobacterium longum [id number] unt / lactobacillus acidophilus [id number] unt oral capsule (2 sources) Start: 03-02-20 25 doxycycline monohydrate 100 mg oral tablet (2 sources) Tetracycline-clas s Drug Start: 05-29-20 End: 06-05-19 23 take 1 tablet by mouth twice daily doxycycline monohydrate 100 mg tablet Indications: Rhinosinusitis Take 1 tablet by mouth twice daily for 7 days. 14 tablet 0 05/29/2022 06/05/2022 Active Comment on above: Take 1 tablet by [facility] twice daily for 7 days. estradiol [...] on above: Take 2 tablets by mo [facility] once daily for 5 days. Completed/Discontinued Medications [...] Comment on above: Take 1 tablet by [facility] once daily. azelastine hydrochloride 0.137 mg/actuat metered dose nasal spray (6 sources) Histamine-1 Receptor Antagonist Start: 08-05-19 End: 10-04-19 take 1 spray(s) nasal route twice daily azelastine 0.1% nasal spray Indications: Nasal congestion Use 1 [place] in each nostril two times a day. 90 mL 3 08/05/2023 10/04/2023 Discontinued (Other) Comment on above: Use 1 [place] in each nostril two times a day. [...] Pack Start: 06-01-2019 take 2 tablets by [facility] once daily, then take 1 tablet by [...] Start: 07-02-2015 take 1 capsule by mo [facility] three times weekly Vitamin D (Ergocalciferol) 68023 UNIT Oral Capsule take one capsule 3 times a week for 12 weeks Quantity: 36 Refills: 0 Piero Ortiz DO Joey Start : 02-Jul-2015 Active fluocinonide 0.5 mg/ml topical solution (18 sources) Corticosteroid Start: 09-08-2024 End: 09-08-2025 fluocinonide (LIDEX) 0.05 % external solution Apply to affected areas of hairloss on the scalp BID M-F 60 mL 1 09/08/2024 12/29/2024 Discontinued Lacto No.53-Hhiiam-Gvq-Lar ch 25B cell-25B cell-50 mg capsule (7 sources) Start: 08-31-2024 End: 10-05-2024 Lacto No.70-Jhzpyj-Awb-La rch 25B cell-25B cell-50 mg capsule Discontinued [...] Problem Lis omar Migration; 2012-11-30; Moved to [facility] Apr 24 2013 9:21PM; Open wounds of [...] Added by Estela Wade; 2012-11-30; Moved to [facility] Apr 24 2013 9:21PM; Otitis media and [...] Facility Orthopedic Visit Reporton Orthopedic Visit Report [facility] [address] [place] [address] [id number] OFFICE VISIT Date of Service: 04/10/25 MR#: [id number] Acct: [id number] Name: TIFFANIE RAMSEY Rep #: [id number] : 1960 Provider: Dr. Shan rich MD Age/Sex: 64/F Location: [facility] [place] Status: Signed with Addenda ADDENDUM by THANIA [...] Performing Provider: Shan Bolaños MD Performing Location: [facility] Administered by: Shan Bolaños MD on 04/10/25 11:47 Dose Route Admin Location Dispensed Lot Number Expiration Date Package NDC NDC Real Estate Development Manager 40 mg intra-articular bilateral shoulder 1 mL [id number] 05/31/26 [id number] [facility] Date cc: * Signed Intake Vital Signs [...] by me, Dr. Shan Bolaños MD 04/10/25 8329. Part of today???s visit was documented by [...] injections about 7 years ago. Supplemental Info [facility] Imaging Services [address] [place] [address] Shoulder min 2 Views MR#: [id number] Acct: [id number] Name: TIFFANIE RAMSEY Rep #: [id number] : 1960 F 64 From: Km Hoover MD PCP: Dr. Bello Davenport MD Status: DEP AMB Study: Shoulder min 2 Views Date of Exam: 08/31/24 Exam# [id number] Ordering Dr: Shan Bolaños MD PROCEDURE: SHOULDER MIN 2 VIEWS 08/31/2024 REASON FOR EXAM: PAIN, NO INJURY TECHNIQUE: Four views left shoulder COMPARISON: None available FINDINGS: No fracture or dislocation. The joint spaces appear within limits. Visualized left lung appears cl (more content not included)... Normal [facility] [place] - Individual Treatment Pl anon 04-05-2025 [place] - Individual Treatment Plan [facility] Pulmonary Rehab Reports [address] [place] [address] [place] - Individual Treatment Plan MR#: [id number] Acct: [id number] Name: TIFFANIE RAMSEY Rep #: [id number] : 1960 64 From: Renzo Marquez BS, [...] scheduled to attend nutrition classes with our confectionery laboratory manager. Heart healthy low sodium diet encouraged. ) Nutrition/Wt Mgmt - 90-Day Visit Date of Eval: 04/05/25 Session Number:: 23 (Nutrition score of 1.) Weight Management Height: 5 ft 2 in Weight:: 137 lb 8 oz BMI: 25.1 Weight Goals Progress:: Goal met (Pt is at a healthy weight. Pt is scheduled to attend nutrition classes with our confectionery laboratory manager. Heart healthy low sodium diet encouraged. ) [...] for managing, (more content not included)... Normal [facility] 1,25-dihydroxyvitamin D3 [Ma ss/Vol]on 04-03-2025 VIT D1,25 DIHYDROXY 61.7 pg/mL Normal 19.9-79.3 [facility] Comment on above: Order Comment: Speci men Type: BLOOD SPECIMENOrdering Facility: [facility] Address: [address] [place] [address] Performed By: #### 1 643, 1988-07 ####[facility] LABCLIA [id number] [place] [address] [place] 25(OH)D3 SerPl-mCncon 2024 25-hydroxyvitamin D3 [Mass/Vol] 27.2 ng/mL Low 31.0-80.0 [facility] Comment on above: Order Comment: Speci men Type: BLOOD SPECIMENOrdering Facility: [facility] Address: [address] [place] [address] Performed By: #### 1 643, 1988-07 ####[facility] LABCLIA [id number] [place] [address] [place] Calcium SerPl-mCncon 025 Calcium [Mass/Vol] 10.2 mg/dL Normal 8.5-10.2 [facility] Comment on above: Order Comment: Speci men Type: BLOOD SPECIMENOrdering Facility: [facility] Address: [address] [place] [address] Performed By: #### 2 777-1, 2731-8, 58480-7 ####[facility] LABIA [id number] [place] [address] [place] Calcium.ionized [Moles/Vol]o n 04-03-2025 Calcium.ionized (Bld) [Mass/Vol] 1.35 mmol/L High 1.08-1.30 [facility] Comment on above: Order Comment: Speci men Type: BLOOD SPECIMENOrdering Facility: [facility] Address: [address] [place] [address] Performed By: #### 1 995-0 ####[facility] [id number] [place] [address] [place] Calcium.ionized adjusted to pH 7.4 (Bld) [Moles/Vol] 1.32 mmol/L High 1.08-1.30 [facility] Comment on above: Order Comment: Speci men Type: BLOOD SPECIMENOrdering Facility: [facility] Address: [address] [place] [address] Performed By: #### 1 995-0 ####[facility] [id number] [place] [id number] [place] PTH-Intact SerPl-mCncon 11-0 Parathyrin.intact [Mass/Vol] 38 pg/mL Normal 15-65 [facility] Comment on above: Order Comment: Speci men Type: BLOOD SPECIMENOrdering Facility: [facility] Address: [address] [place] [address] Performed By: #### 2 777-1, 2731-8, 32125-6 ####[facility] LABIA [id number] [place] [address] [place] Phosphate SerPl-mCncon 04-03 Phosphate [Mass/Vol] 3.8 mg/dL Normal 2.7-4.8 [facility] Comment on above: Order Comment: Speci men Type: BLOOD SPECIMENOrdering Facility: [facility] Address: [address] [place] [address] Performed By: #### 2 777-1, 2731-8, 98857-5 ####[facility] LABCLIA [id number] [address] OF [facility] CNOVon 03-29-2025 CNOV Office Visit (FAMPWS ) -- TIFFANIE RAMSEY ([id number]) 1960 F Date Time Provider Department 03/29/25 [...] Encounter Status:Closed by PINA SZYMANSKI on 03/29/25 [facility] CNOVon 03-13-2025 CNOV Office Visit (WOUCA) -- TIFFANIE RAMSEY ([id number]) 1960 F Date Time Provider Department 03/13/25 12:30 PM ADARSH CAMACHO During your visit today, we recorded the following information about you: Temperature Pulse Respiration Blood pressure 98.1 degrees 76/minute 20/minute 130/89 Weight 62 kg Adarsh Camacho APRN.ROADSIDE MECHANIC 03/13/2025 1:00 PM Signed [facility] [...] media. - Refer to ENT within the [facility] system for further evaluation and management. - Advised against unnecessary use of antibiotics and steroids to avoid resistance and immunosuppression, especially during respiratory season. and Recording using [employer] software for draft documentation of the visit was discussed with the patient/authorized herbicide service sales representative; all questions welcomed and answered. Patient/authorized representativ (more content not included)... Normal [facility] Laboratory - Chemistry and C hemistry - challengeOrdered By: Ally Bailey on 03-13-2025 Bilirubin Ql (U) Negative [facility] Glucose Ql (U) Negative [facility] Ketones Ql (U) Negative [facility] pH (U) 7 [pH] [facility] Specific gravity (U) [Rel density] 1.005 [facility] Urobilinogen (U) [Mass/Vol] 0.8691055 mg/dL [facility] Laboratory - Hematology and Cell countsOrdered By: Ally Bailey on 03-13-2025 Hemoglobin Ql (U) Negative [facility] Laboratory - UrinalysisOrder ed By: Ally Bailey on 03-13-2025 Nitrite Ql (U) Negative [facility] Protein Ql (U) Negative [facility] MR/CAMPOShilario 03-13-2025 MR/CAMPOS [facility] [address], [address] [place] [address] OFFICE VISIT Date of Service: 03/13/25 MR#: [id number] Acct: [id number] Name: TIFFANIE RAMSEY Rep #: [id number] : 1960 Provider: Dr. Ally Mendiola i, MD Age/Sex: 64/F Location[place] [facility] Status: Signed Intake Vital Signs 01/12/25 11:20 03/08/25 08:27 03/13/25 13:04 Height 5 ft 2 in 5 ft 2 in 5 ft 2 in Weight: 135 lb BMI 24.7 BP 106/74 Pulse 70 Intake Visit Reasons: FREQUENCY Chief Complaint: new patient for urinary frequency Church Worker Required: No Accompanied by: self Is patient [...] it too long Bladder scan PVR 25cc [facility] Medical History H/O urinary frequency Arthritis [...] home: Yes additional social history: - Jorge [facility] Chief Complaint: new patient for urinary [...] She has been noticing a vaginal odor "like a cat box." She has not had visible blood in [...] Aller/Imm Allergy (more content not included)... Normal [facility] No Panel InformationOrdered By: Ally Bailey on 03-13-2025 Urine Leukocytes Negatve [facility] Urine Non-Hemolyzed Blood Negative [facility] EGD Reporton 03-08-2025 EGD Report [facility] Records Department [address] [place] [address] EGD Report MR#: [id number] Acct: [id number] Name: TIFFANIE RAMSEY Rep #: [id number] : 1960 64 From: Chuck Friend DO PCP: Dr. Bello Davenport MD Status[place] Patient Name: Tiffanie Ramsey Procedure Date: 03/08/2025 [...] present medications. Procedure Code(s): --- Professional --- 48941, Small intestinal endoscopy, enteroscopy beyond second portion of duodenum, not including ileum; with biopsy, single or multiple CPT copyright 2021 [employer]. All rights reserved. The codes documented in this report are preliminary and upon novelty balloon assembler and packer review may be revised to meet current compliance requirements. Chuck Dalton DO 03/08/2025 6:59:07 AM This report has been signed electronically. Number of Addenda: 0 Note Initiated On: 03/08/2025 6:11 AM 03/08/25 0659 Date Chuck Dalton DO Cosigner Signature: Date (more content not included)... Normal [facility] MR/OP.Tony 03-08-2025 MR/OP.[facility] Medical Records Department [address] [place] [address] Provation Physician Letter MR#: [id number] Acct: [id number] Name: TIFFANIE RAMSEY Rep #: [id number] : 1960 64 From: Chuck Dalton DO PCP: Dr. Bello Davenport MD Status:[facility] 03/08/2025 Bello Davenport MD [address] [place] [address] Re : Upper GI endoscopy procedure for [...] AM This report has been signed electronically. 03/08/25658 Date Chuck Dalton DO Cosigner Signature: Date (if indicated) CC: Dr. Bello Davenport MD; Dr. Taqueria Vieira MD; Chuck Dalton DO Date Dictated: 03/08/25610 Date Transcribed: Clay Dry Press Operator: JAVIER Signed [facility] MR/POSTOP.[facility] 03-08-2025 MR/POSTOP.[facility] Medical Records Department [address] [place] [address] Anesthesia Postop Eval I 03/08/25 0704 MR#: [id number] Acct: [id number] Name: TIFFANIE RAMSEY Rep #: [id number] : 1960 64 From: Jose Lopez PCP: Dr. Bello Davenport MD Status:[facility] Y Race: C Location: [place] [address] Anesthesia: Postop Eval I Current Vital Signs [...] Jose Smithigner Signature: Date CC: Signed Normal [facility] MR/SQBWDRJZ6su 03-08-2025 [facility] Medical Records Department [address] [place] [address] Anesthesia Postop Eval II 03/08/25718 MR#: [id number] Acct: [id number] Name: TIFFANIE RAMSEY Rep #: [id number] : 1960 64 From: Umesh Graf MD PCP: Dr. Bello Davenport MD Status:[facility] Y Race: C Location: [place] [address] Anesthesia Postop Eval I Sum Postop Eval [...] Umesh Lebron Signature: Date CC: Signed Normal [facility] [place] - Individual Treatment Pl anon 03-08-2025 [place] - Individual Treatment Plan [facility] Pulmonary Rehab Reports [address] [place] [address] [place] - Individual Treatment Plan MR#: [id number] Acct: [id number] Name: TIFFANIE RAMSEY Rep #: [id number] : 1960 64 From: Renzo Marquez BS, [...] scheduled to attend nutrition classes with our confectionery laboratory manager. Heart healthy low sodium diet encouraged. ) Nutrition/Wt Mgmt - 90-Day Visit Session Number:: 15 Weight Management Height: 5 ft 2 in Weight:: 137 lb 8 oz BMI: 25.1 Weight Goals Progress:: Goal met (Pt is at a healthy weight. Pt is scheduled to attend nutrition classes with our confectionery laboratory manager. Heart healthy low sodium diet encouraged. ) [...] Referred t (more content not included)... Normal [facility] Surgery Specimen Level Gayle 03-08-2025 Surgery Specimen Level IV Patient Age/Sex Location Account Attending Physician TIFFANIE RAMSEY/Patito EN [id number] Chuck Dalton DO Specimen: [id number] Received: 03/08/25 Status: PHILL Lott Num: [id number] Spec Type: EGD BIOPSY Subm Dr: Chuck [...] labeled with the patient's name and designated "Duodenum biopsy." The specimen consists of three irregular fragments of tavares tissue that measure 0.3 to 0.9 cm. The specimen is totally submitted in one cassette. B. Received in fixative is one container labeled with the patient's name and designated "Gastric body biopsy." The specimen consists of two irregular fragments of tavares tissue that measure 0.3 and 0.5 cm. The specimen is totally submitted in one cassette. C. Received in fixative is one container labeled with the patient's name and designated Distal esophagus biopsy. The specimen consists of two irregular fragments of tavares tissue, each measuring 0.5 cm. The specimen is totally submitted in one cassette. ME 03/08/2025 CPT:84575z6 Patient Age/Sex Location Account Attending Physician TIFFANIE RAMSEY 64/F EN [id number] Chuck Dalton DO Signed (signature on file) Dr. Nargis Henderson DO 03/09/25 1041 Normal [facility] Comment on above: Performed By: #### P DAVID ####[facility] [address] [place], [address] [facility] 02[facility]26[facility]20[facility] -- TIFFANIE RAMSEY ([id number]) 1960 F Date Time Provider Department 02/26/25 TAQUERIA VIEIRA [facility] During your visit today, we recorded the following information about you: Preet Lockwood RN 02/26/2025 11:07 AM Addendum Pt called in and reports provider had wanted her to call and have records from Dr Diaz her ENT sent to providers office for [facility]. She states that they need provider to send a form requesting the forms. Sending form for all of Pt's records to fax # [phone]. Do not know what provider wants in particular. Sent form for providers office to fax over all of Pt's office notes to fax # [phone]. JOHN Baez William J, MD 02/26/2025 11:08 AM Signed We need records for her issues with taste and smell, particularly if she had nasal endoscopy done Rosalind Bergeron RN 02/26/2025 12:06 PM Signed Called and spoke with patient, let her know that I sent her a Lockr message with form to request medical records. [...] Encounter Status:Closed by PREET LOCKWOOD on 02/26/25 [facility] 02-23-2025 [facility] Telephone ([facility]) -- TIFFANIE RAMSEY ([id number]) 1960 F Date Time Provider Department 02/23/25 JANINA MIRANDA [facility] During your visit today, we recorded the [...] Status:Closed by JUAN MIGUEL MUÑOZ on 02/28/25 [facility] CNOVon 02-22-2025 CNOV Office Visit (FPMBHT ) -- TIFFANIE RAMSEY ([id number]) 1960 F Date Time Provider Department 02/22/25 9:00 AM TAQUERIA VIEIRA [facility] During your visit today, we recorded [...] for an EGD (esophagogastroduodenoscop y) with your public works laborer on March 13 to evaluate your abdominal [...] this concern. There is a condition called "burning tongue" that may require further evaluation or treatment. - Your calcium levels have been slightly elevated for years. I have ordered repeat labs to check calcium, phosphorus, parathyroid hormone, and vitamin D levels. You can complete these labs at [place] or [place] when convenient. If abnormalities persist, we may [...] a follow-up with me in May in [place]. 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 (more content not included)... Normal [facility] ECHOon 02-20-2025 Echocardiography Echocardiography Rep ort: Transthoracic Echo [facility] Date of service: 02/20/2025 9:48:43 AM Ordering physician: TAQUERIA VIEIRA Exam indication: Shortness of Breath Technologist: Emelia Musa RAUL Interpreting physician: Shelia Quezada MD PATIENT: Name: [...] * * Final * * * CC [employer] : [id number] 29SyngoDynamicsSISUID [facility] [place] - Individual Treatment Pl anon 02-08-2025 [place] - Individual Treatment Plan [facility] Pulmonary Rehab Reports [address] [place] [address] [place] - Individual Treatment Plan MR#: [id number] Acct: [id number] Name: TIFFANIE RAMSEY Rep #: [id number] : 1960 64 From: Renzo Marquez BS, [...] Questionnaire PHQ-9 Score: 3 Referral to Behavioral [facility] PS - Interventions: Yes: Attend Stress Management [...] Behavioral Health (more content not included)... Normal [facility] Breast imaging reportOrdered By: Reinaldo Soriano on 01-18-2025 Study report [facility] Imaging Services [address] [place], [place] [address] SCRN MAMM (CAD)W/BEBA BILAT MR#: [id number] Acct: [id number] Name: TIFFANIE RAMSEY Rep #: [id number] : 1960 F 64 From: Avery Soriano MD PCP: Dr. Bello Davenport MD Status: RAY SHAH Study:SCRN MAMM (CAD)W/BEBA BILAT Date of Exa m: 01/18/25 Exam# [id number] Ordering Dr: Lise Araya DRY HEAT ROOM ATTENDANT DRY HEAT ROOM ATTENDANT-C EXAM: SCRN MAMM (CAD)W/BEBA BILAT DATE: 01/18/2025 [...] be mailed to the patient. Reading Location: [id number] CC: VERENICE Araya; Dr. Bello Davenport MD ~ Clay [employer] Operator: Signed [facility] SCRN MAMM (CAD)W/BEBA BILATo n 01-18-2025 SCRN MAMM (CAD)W/BEBA BILAT [facility] Imaging Services [address] [place], [place] [address] SCRN MAMM (CAD)W/BEBA BILAT MR#: [id number] Acct: [id number] Name: TIFFANIE RAMSEY Rep #: [id number] : 1960 F 64 From: Reinaldo stanton MD PCP: Dr. Bello Davenport MD Status: [facility] Study: SCRN MAMM (CAD)W/BEBA BILAT Date of Exam: 12/30 06/24 Exam# [id number] Ordering Dr: Lise Araya NP, NP -Velvet [...] CC: VERENICE Araya; Dr. 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 Normal [facility] CNOVon 01-16-2025 CNOV Office Visit (GSTNOR ) -- TIFFANIE RAMSEY ([id number]) 1960 F Date Time Provider Department 01/16/25 [...] Abs Lymph 1.00 - 4.00 k/uL 1.42 Carroll% % 6.6 Abs Carroll <0.87 k/uL 0.43 Eosin% % 2.8 Abs [...] media PAST SURGICAL HISTORY Procedure Laterality Date COLOG2024 Negative COLONOSCOPY 01/27/2021 EAR SURGERY HX Right EGD W/O [facility] SPEC VARICIES INJ 10-12 years ago Allergies: ALLERGIES Allergen Reactions Ciprofloxacin Other: See Comments Abdominal cramping Doxycycline Other: See Comments Abdominal cramping Abby [Fexofenadi* Intolerance Hyperactivity Claritin [Loratadin* Intolerance Hyperactivity Lipitor [Atorvastat* GI Upset Sulfa (Sulfonamide * Rash Zyrtec [Cetirizine * Intolerance Drowsiness (more content not included)... Normal [facility] [place] - History AND Physicalon 01-12-2025 [place] - History & Physical [facility] Pulmonary Rehab Reports [address] [place] [address] [place] - History Physical MR#: [id number] Acct: [id number] Name: TIFFANIE RAMSEY Rep #: [id number] : 1960 64 From: Renzo Marquez BS, [...] Do you have a Healthcare Power of Behavioral Health Worker?: Yes Living Will: Yes Advance Directives Information Provided: Yes Advance Directives on File: No DNR Order?:: No Past Medical History Covid-19 Screening Physicial Symptoms Other Clinical Concerns Exposure Risk Pertinent Comorbidities 65 years or older:: Yes Has a chronic lung disease or moderate to severe asthma:: Yes Medical History Past Medical History (Updated 12/26/24 @ 09:59 by Lise Araya NP, DRY HEAT ROOM ATTENDANT-C) Long COVID U09.9 Left shoulder pain M25.512 [...] Chief Complai (more content not included)... Normal [facility] [place] - Individual Treatment Pl anon 01-12-2025 [place] - Individual Treatment Plan [facility] Pulmonary Rehab Reports [address] [place] [address] [place] - Individual Treatment Plan MR#: [id number] Acct: [id number] Name: TIFFANIE RAMSEY Rep #: [id number] : 1960 64 From: Renzo Marquez BS, RVT PCP: Dr. 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 [facility] 01-10-2025 [facility] Telephone (NPC IIIIWR) -- TIFFANIE RAMSEY ([id number]) 1960 F Date Time Provider Department 01/10/25 [...] Encounter Status:Closed by Yu MCCORMACK on 01/10/25 [facility] TIFFANIE RAMSEY ([id number]) 1960 F Date Time Provider Department 01/01/25 ASHLEY LYNN PULTHANIAV During your visit today, we recorded the following information about you: Macho Baeza LPN 01/01/2025 1:19 PM Signed Patient calling. At [facility] trying to get scheduled for Pulmonary Rehab. They are asking for documentation for Shortness of Breath. Please fax order whatever testing (had breathing tests done on 12/21) showed this to [facility] at [phone]. PFT results from 12/21 faxed to [facility] via [facility] Shu Kelley 01/03/2025 10:27 AM Addendum Patient is calling back in today, [place] needs the office notes that document the discussion of shortness of breath. Please fax over to: [phone]. Patient cannot start her rehab until [place] has this documentation. It's required by the insurance company. Esther Cummings 01/03/2025 10:44 AM Signed Patient calling back to let office know that [facility] does not use epic and OV notes must be faxed. Cortes Martell LPN 01/03/2025 11:39 AM Signed Faxed all necessary paperwork to [facility] w/ confirmation. Called and passed along [...] Encounter Status:Closed by MACHO BAEZA on 01/01/25 [facility] CNOVon 12-29-2024 CNOV Office Visit (PULMAV ) -- TIFFANIE RAMSEY ([id number]) 1960 F Date Time Provider Department 12/29/24 [...] OF DYSPNEA and PASC 19 Recording using [employer] software for draft documentation of the visit was discussed with the patient/authorized herbicide service sales representative; all questions welcomed and answered. Patient/authorized herbicide service sales representative agreed to proceed HPI: Tiffanie [...] to walk at her previous brisk pace "nearly did her in." She describes a pattern of energy depletion, stating that by 4440-7132 each day, she feels as though her "battery runs out of charge," necessitating rest. This fatigue has been present [...] She describes her current sleep issues as "torture" and notes that they have been ongoing [...] Hyperactivity Lipito (more content not included)... Normal [facility] CNOVon 12-28-2024 CNOV Office Visit (GERIWR ) -- TIFFANIE RAMSEY ([id number]) 1960 F Date Time Provider Department 12/28/24 10:30 AM ANNA TABOR During your visit today, we recorded the following information about you: Pulse Respiration Blood pressure Weight 82/minute 16/minute 124/85 61.6 kg Anna Tabor MD 12/28/2024 2:59 PM Signed [facility] Initial Consult Tiffanie Ramsey [...] or hoarding: NO Social History: Primary language: Scottish Marital Status: Living situation: Home w/ Spouse Socially engaged? (participates in activities such as clubs, denominational, community center, sports, games, visiting friends/relatives, etc?): YES Caregiver [place] and Stress Are your feeling overwhelmed? YES [...] 12/28/2024, S (more content not included)... 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 not using consistently Last PAP: 2020 -scanned to chart History of abnormal PAP: no Last mammogram: 12/2023 History of abnormal mammogram: no Colon cancer screenin Other preventative health care screenings: [place] Female Reproductive History Questions: metorrhagia: No, sexually [...] oriented to person and oriented to place [facility] Head: normal to inspection Neck Neck: [...] normal affect Coding Level of Care Code MC Pelvic/Breast Diagnoses Encounter for gynecological examination with abnormal finding Z01.411 Gynecological examination findings: abnormal findings PRESENT Atrophic vaginitis N95.2 Assessment and Plan Assessment and Plan (1) Encounter for routine gynecological examination: Qualifiers: Gynecological examination findings: abnormal findings PRESENT Qualified Code(s): Z01.411 - Encounter for gynecological examination (general) (routine) with ab (more content not included)... Normal [facility] LUNG DIFFUSION CAPACITY (MAYA O)on 12-21-2024 LUNG DIFFUSION CAPACITY (DLCO) [facility] [address] [place] [address] Test Date: 2024-12-21 Pat Name: TIFFANIE RAMSEY Department: Room: Gender: Female Resident Services Supervisor: : 1960 Requested By: Order Number: [id number] Reading MD: Piero Gonzalez MD Interpretive Statements [...] 10:23:05 EDT by Piero Gonzalez MD ID: [id number] Name: TIFFANIE RAMSEY Race: White Ht: 62.72 [...] 90-100 1.28 54 FIVC 3.05 2.94 -3 ZPS09-15 2.35 0.93 1.94 3.35 120 0.53 1.36 [...] maneuvers. Lung Volumes are repeatable x3. Normal [facility] LUNG VOLUMESon 12-21-2024 LUNG VOLUMES [facility] [address] [place] [address] Test Date: 2024-12-21 Pat Name: TIFFANIE RAMSEY Department: Room: Gender: Female Resident Services Supervisor: : 1960 Requested By: Order Number: [id number] Reading MD: Piero Gonzalez MD Interpretive Statements [...] 10:23:05 EDT by Piero Gonzalez MD ID: [id number] Name: TIFFANIE RAMSEY Race: White Ht: 62.72 [...] 90-100 1.28 54 FIVC 3.05 2.94 -3 IPT08-39 2.35 0.93 1.94 3.35 120 0.53 1.36 [...] maneuvers. Lung Volumes are repeatable x3. Normal [facility] SIX MINUTE WALKon 12-21-2024 Piero Gonzalez [...] Post Recovery Blood Pressure 159.3 cm (5' 2.72") 60.3 kg (133 lb) Forehead 133/81 136/71 [...] Minute Walk Trend (Previous Encounters) None SIGNATURE: Gail Pang [place] PATIENT NAME: Tiffanie Ramsey DATE: December 21, 2024 TIME: 11:20 AM [facility] SIX MINUTE WALKOrdered By: Yu Gonzalez on 12-21-2024 [facility] Work Phone: SPIROMETRY - BASELINE AND PO ST DILATORon 12-21-2024 SPIROMETRY - BASELINE AND POST DILATOR [facility] [address] [address] Test Date: 2024-12-21 Pat Name: TIFFANIE RAMSEY Department: Room: Gender: Female Resident Services Supervisor: : 1960 Requested By: Order Number: [id number] Reading MD: Piero Gonzalez MD Interpretive Statements [...] 10:23:05 EDT by Piero Gonzalez MD ID: [id number] Name: TIFFANIE RAMSEY Race: White Ht: 62.72 [...] 90-100 1.28 52 FIVC 3.05 2.94 -3 UAQ24-71 2.35 0.93 1.94 3.35 120 0.53 1.36 [...] 79 % FEV1/FVC_LLN (%) : 67 % CRT25_GIJ (L/S) : 3.83 L/S OAK65_RPYY (L/S) : 4.51 L/S OXD75_KKD (L/S) : 0.86 L/S FEX35_KLIW (L/S) : 0.27 L/S CPL16_VGGL (L/S) : 0.50 L/S BMR07_DXH (L/S) : 0.19 L/S JOM18_APG (L/S) : 1.25 L/S VEE12-68%_PRE (L/S) : 2.35 L/S PEA72-43%_POST (L/S) : 1.36 L/S RPZ58-31%_PRED (L/S) : 1.94 L/S EFF29-20%_LLN (L/S) : 0.93 L/S PEF_PRE (L/S) : [...] ml/min/mmHg DLCO/VACOR (ML/MIN/MMHG/L) : 0.04 ml/min/mmHg/L Normal [facility] 25-hydroxyvitamin D3 [Mass/V ol]on 07-19-2025 Interpretation and review of laboratory results Normal [facility] The reference range interval was based on an analysis of samples from healthy adults and may not pertain to children from 0-18 years old. [facility] PTH INTACTon 12-16-2024 Parathyrin.intact [Mass/Vol] 43 pg/mL 15 - 65 pg/mL [facility] Parathyrin.intact [Mass/Vol] on 12-16-2024 Interpretation and review of laboratory results Normal [facility] VITAMIN D 25 HYDROXYon 12-16 25-hydroxyvitamin D3 [Mass/Vol] 43.6 ng/mL 31.0 - 80.0 ng/mL [facility] Comment on above: Classification of 25 [place] Vitamin D status: Deficiency/Insufficiency: < or = 30 ng/ml. Sufficiency/Optimal Levels: 31-80 ng/mL Toxicity: > 100 ng/mL. Test performed by chemiluminescent immunoassay. 25(OH)D3 SerPl-mCncon 2024 25-hydroxyvitamin D3 [Mass/Vol] 43.6 ng/mL Normal 31.0-80.0 [facility] Comment on above: Order Comment: Kia mei Type: BLOOD SPECIMENOrdering Facility: [facility] Address: [address] [place] [address] Result Comment: Clas sification of 25 [place] Vitamin D status: Deficiency/Insufficiency: < or = 30 ng/ml. Sufficiency/Optimal Levels: 31-80 ng/mL Toxicity: > 100 ng/mL. Test performed by chemiluminescent immunoassay. Performed By: #### 1 989-3 ####[facility] LABCLIA [id number] [place] [address] [place] CARBOXYHEMOGLOBIN VENon 11-28 Carboxyhemoglobin (BldV) [Mass fraction] 1.3 % 0.0 - 2.0 % [facility] Comment on above: Carboxyhemoglobin Re ference Range for Smokers: 2.0-8.0% Interpretation and review of laboratory results Normal [facility] Carboxyhemoglobin (BldV) [Mass fraction] 1.3 % Normal 0.0-2.0 [facility] Comment on above: Order Comment: Kia mei Type: BLOOD SPECIMEN Ordering Facility: [facility] Address: [address] [place] [address] Result Comment: Carb oxyhemoglobin Reference Range for Smokers: 2.0-8.0% Performed By: #### 5 7021-8 #### [facility] CLIA [id number] [address] [place] [address] [place] CBC W Auto Differential pane l (Bld)on 12-15-2024 Basophils (Bld) [#/Vol] 0.09 10*3/uL [facility] Basophils/100 WBC (Bld) 1.7 % [facility] Differential cell count method Nom (Bld) Auto [facility] Eosinophils (Bld) [#/Vol] 0.19 10*3/uL [facility] Eosinophils/100 WBC (Bld) 3.6 % [facility] Erythrocyte distribution width (RBC) [Ratio] 13.5 % 11.5 - 15.0 % [facility] Hematocrit (Bld) [Volume fraction] 44.5 % 36.0 - 46.0 % [facility] Hemoglobin (Bld) [Mass/Vol] 15.1 g/dL 11.5 - 15.5 g/dL [facility] Immature granulocytes (Bld) [#/Vol] [facility] Immature granulocytes/100 WBC (Bld) 0.4 % [facility] Interpretation and review of laboratory results Abnormal [facility] Lymphocytes (Bld) [#/Vol] 1.29 10*3/uL [facility] Lymphocytes/100 WBC (Bld) 24.1 % [facility] MCH (RBC) [Entitic mass] 28.9 pg 26.0 - 34.0 pg [facility] MCHC (RBC) [Mass/Vol] 33.9 g/dL 30.5 - 36.0 g/dL [facility] MCV (RBC) [Entitic vol] 85.1 fL 80.0 - 100.0 fL [facility] Monocytes (Bld) [#/Vol] 0.44 10*3/uL [facility] Monocytes/100 WBC (Bld) 8.2 % [facility] Neutrophils (Bld) [#/Vol] 3.32 10*3/uL [facility] Neutrophils/100 WBC (Bld) 62.0 % [facility] Nucleated RBC (Bld) [#/Vol] NINF [facility] Nucleated RBC/100 WBC (Bld) [Ratio] 0.0 % /100 WBC [facility] Platelet mean volume (Bld) [Entitic vol] 9.3 fL 9.0 - 12.7 fL [facility] Platelets (Bld) [#/Vol] 285 10*3/uL [facility] RBC (Bld) [#/Vol] 5.23 10*6/uL High 3.90 - 5.2 0 m/uL [facility] WBC (Bld) [#/Vol] 5.35 10*3/uL [facility] Basophils (Bld) [#/Vol] 0.09 10*3/uL Normal <0.11 [facility] Comment on above: Order Comment: Speci men Type: BLOOD SPECIMEN Ordering Facility: [facility] Address: [address] [place] [address] Performed By: #### 5 7021-8 #### [facility] CLIA [id number] [address] [place] [address] [place] Basophils/100 WBC (Bld) 1.7 % Normal [facility] Comment on above: Order Comment: Speci men Type: BLOOD SPECIMEN Ordering Facility: [facility] Address: [address] [place] [address] Performed By: #### 5 7021-8 #### [facility] CLIA [id number] [address] [place] [address] [place] Differential cell count method Nom (Bld) Auto Normal [facility] Comment on above: Order Comment: Speci men Type: BLOOD SPECIMEN Ordering Facility: [facility] Address: [address] [place] [address] Performed By: #### 5 7021-8 #### [facility] CLIA [id number] [address] [place] [address] [place] Eosinophils (Bld) [#/Vol] 0.19 10*3/uL Normal <0.46 [facility] Comment on above: Order Comment: Speci men Type: BLOOD SPECIMEN Ordering Facility: [facility] Address: [address] [place], [place] [address] Performed By: #### 5 7021-8 #### [facility] CLIA [id number] [address] [place] [address] [place] Eosinophils/100 WBC (Bld) 3.6 % Normal [facility] Comment on above: Order Comment: Speci men Type: BLOOD SPECIMEN Ordering Facility: [facility] Address: [address] [place] [address] Performed By: #### 5 7021-8 #### [facility] CLIA [id number] [address] [place] [address] [place] Erythrocyte distribution width (RBC) [Ratio] 13.5 % Normal 11.5-15.0 [facility] Comment on above: Order Comment: Speci men Type: BLOOD SPECIMEN Ordering Facility: [facility] Address: [address] [place] [address] Performed By: #### 5 7021-8 #### [facility] CLIA [id number] [address] [place] [address] [place] Hematocrit (Bld) [Volume fraction] 44.5 % Normal 36.0-46.0 [facility] Comment on above: Order Comment: Speci men Type: BLOOD SPECIMEN Ordering Facility: [facility] Address: [address] [place] [address] Performed By: #### 5 7021-8 #### [facility] CLIA [id number] [address] [place] [address] [place] Hemoglobin (Bld) [Mass/Vol] 15.1 g/dL Normal 11.5-15.5 [facility] Comment on above: Order Comment: Speci men Type: BLOOD SPECIMEN Ordering Facility: [facility] Address: [address] [place] [address] Performed By: #### 5 7021-8 #### [facility] CLIA [id number] [address] [place] [address] [place] Immature granulocytes (Bld) [#/Vol] 10*3/uL Normal <0.10 [facility] Comment on above: Order Comment: Speci men Type: BLOOD SPECIMEN Ordering Facility: [facility] Address: [address] [place] [address] Performed By: #### 5 7021-8 #### [facility] CLIA [id number] [address] [place] [address] [place] Immature granulocytes/100 WBC (Bld) 0.4 % Normal [facility] Comment on above: Order Comment: Speci men Type: BLOOD SPECIMEN Ordering Facility: [facility] Address: [address] [place] [address] Performed By: #### 5 7021-8 #### [facility] CLIA [id number] [address] [place] [address] [place] Lymphocytes (Bld) [#/Vol] 1.29 10*3/uL Normal 1.00-4.00 [facility] Comment on above: Order Comment: Speci men Type: BLOOD SPECIMEN Ordering [facility]: [facility] Address: [address] [place] [address] Performed By: #### 5 7021-8 #### [facility] CLIA [id number] [address] [place] [address] [place] Lymphocytes/100 WBC (Bld) 24.1 % Normal [facility] Comment on above: Order Comment: Speci men Type: BLOOD SPECIMEN Ordering [facility]: [facility] Address: [address] [place] [address] Performed By: #### 5 7021-8 #### [facility] CLIA [id number] [address] [place] [address] [place] MCH (RBC) [Entitic mass] 28.9 pg Normal 26.0-34.0 [facility] Comment on above: Order Comment: Speci men Type: BLOOD SPECIMEN Ordering Facility: [facility] Address: [address] [place] [address] Performed By: #### 5 7021-8 #### [facility] CLIA [id number] [address] [place] [address] [place] MCHC (RBC) [Mass/Vol] 33.9 g/dL Normal 30.5-36.0 [facility] Comment on above: Order Comment: Speci men Type: BLOOD SPECIMEN Ordering [facility]: [facility] Address: [address] [place] [address] Performed By: #### 5 7021-8 #### [facility] CLIA [id number] [address] [place] [address] [place] MCV (RBC) [Entitic vol] 85.1 fL Normal 80.0-100.0 [facility] Comment on above: Order Comment: Speci men Type: BLOOD SPECIMEN Ordering [facility]: [facility] Address: [address] [place] [address] Performed By: #### 5 7021-8 #### [facility] CLIA [id number] [address] [place] [address] [place] Monocytes (Bld) [#/Vol] 0.44 10*3/uL Normal <0.87 [facility] Comment on above: Order Comment: Speci men Type: BLOOD SPECIMEN Ordering Facility: [facility] Address: [address] [place] [address] Performed By: #### 5 7021-8 #### [facility] CLIA [id number] [address] [place] [address] [place] Monocytes/100 WBC (Bld) 8.2 % Normal [facility] Comment on above: Order Comment: Speci men Type: BLOOD SPECIMEN Ordering [facility] Address: [address] [place] [address] Performed By: #### 5 7021-8 #### [facility] CLIA [id number] [address] [place] [address] [place] Neutrophils (Bld) [#/Vol] 3.32 10*3/uL Normal 1.45-7.50 [facility] Comment on above: Order Comment: Speci men Type: BLOOD SPECIMEN Ordering Facility: [facility] Address: [address] [place] [address] Performed By: #### 5 7021-8 #### [facility] CLIA [id number] [address] [place] [address] [place] Neutrophils/100 WBC (Bld) 62.0 % Normal [facility] Comment on above: Order Comment: Speci men Type: BLOOD SPECIMEN Ordering Facility: [facility] Address: [address] [place] [address] Performed By: #### 5 7021-8 #### [facility] CLIA [id number] [address] [place] [address] [place] Nucleated RBC (Bld) [#/Vol] 10*3/uL Normal <0.01 [facility] Comment on above: Order Comment: Speci men Type: BLOOD SPECIMEN Ordering Facility: [facility] Address: [address] [place] [address] Performed By: #### 5 7021-8 #### [facility] CLIA [id number] [address] [place] [address] [place] Nucleated RBC/100 WBC (Bld) [Ratio] 0.0 /100 WBC Normal [facility] Comment on above: Order Comment: Speci men Type: BLOOD SPECIMEN Ordering Facility: [facility] Address: [address] [place] [address] Performed By: #### 5 7021-8 #### [facility] CLIA [id number] [address] [place] [address] [place] Platelet mean volume (Bld) [Entitic vol] 9.3 fL Normal 9.0-12.7 [facility] Comment on above: Order Comment: Speci men Type: BLOOD SPECIMEN Ordering Facility: [facility] Address: [address] [place] [address] Performed By: #### 5 7021-8 #### [facility] CLIA [id number] [address] [place] [address] [place] Platelets (Bld) [#/Vol] 285 10*3/uL Normal 150-400 [facility] Comment on above: Order Comment: Speci men Type: BLOOD SPECIMEN Ordering Facility: [facility] Address: [address] [place] [address] Performed By: #### 5 7021-8 #### [facility] CLIA [id number] [address] [place] [address] [place] RBC (Bld) [#/Vol] 5.23 10*6/uL High 3.90-5.20 [facility] Comment on above: Order Comment: Speci men Type: BLOOD SPECIMEN Ordering Facility: [facility] Address: [address] [place] [address] Performed By: #### 5 7021-8 #### [facility] CLIA [id number] [address] [place] [address] [place] WBC (Bld) [#/Vol] 5.35 10*3/uL Normal 3.70-11.00 [facility] Comment on above: Order Comment: Speci men Type: BLOOD SPECIMEN Ordering Facility: [facility] Address: [address] [place] [address] Performed By: #### 5 7021-8 #### [facility] CLIA [id number] [address] [place] [address] [place] Calcium.ionized [Moles/Vol]o n 12-15-2024 Calcium.ionized (Bld) [Mass/Vol] 1.31 mmol/L High 1.08 - 1.30 mmol/L [facility] Calcium.ionized adjusted to pH 7.4 (Bld) [Moles/Vol] 1.31 mmol/L High 1.08 - 1.30 mmol/L [facility] Interpretation and review of laboratory results Abnormal [facility] Calcium.ionized (Bld) [Mass/Vol] 1.31 mmol/L High 1.08-1.30 [facility] Comment on above: Order Comment: Speci men Type: BLOOD SPECIMENOrdering Facility: [facility] Address: [address] [place] [address] Performed By: #### 1 995-0 ####[facility] [id number] [place] [address] [place] Calcium.ionized adjusted to pH 7.4 (Bld) [Moles/Vol] 1.31 mmol/L High 1.08-1.30 [facility] Comment on above: Order Comment: Speci men Type: BLOOD SPECIMENOrdering Facility: [facility] Address: [address] [place] [address] Performed By: #### 1 995-0 ####[facility] [id number] [place] [address] [place] PTH-Intact [facility] 11-28 Parathyrin.intact [Mass/Vol] 43 pg/mL Normal 15-65 [facility] Comment on above: Order Comment: Speci men Type: BLOOD SPECIMEN Ordering Facility: [facility] Address: [address] [place] [address] Performed By: #### 5 7021-8 #### [facility] [id number] [address] [place] [address] [place] Joe 12-04-2024 CNPN Telephone (FAMPWS) -- TIFFANIE RAMSEY ([id number]) 1960 F Date Time Provider Department 12/04/24 [...] in the absence of cognitive impairment [1] Abelino K, Yumiko TW, Lauren RL, Kai YAZAN, Joey JT, Dee AH. The PHQ-8 as a measure of current depression in the general population. J Affect Disord. 2009;114(1-3):163-173. doi: 10.1016/j.sigifredo.2008.06.026 [2] Josseline et al. National Sleep Foundation's sleep time duration recommendations: methodology and results summary. Sleep Health. 2015 Mar;1(1):40-43. doi: 10.1016/j.sleh.2014.12.010 . [3] Marge RM, Saw O, Postalice AF, Lei DP. Automated detection of cognitive impairment in clinical practice. J Neurol. 2023 Miguel . doi: 10.1007/h93838-906-54219-2 . Epub ahead of print. PMID: [id number]. Allergies As of Date: 12/04/2024 Noted Allergy [...] Encounter Status:Closed by TAQUERIA VIEIRA on 12/04/24 Normal [facility] -- TIFFANIE RAMSEY ([id number]) 1960 F Date Time Provider Department 12/04/24 TAQUERIA VIEIRA PUMBHT During your visit today, we recorded the following information about you: Rosalind Bergeron, JOHN 12/04/2024 10:13 AM Signed Called patient. Reviewed below results and recommendations to drink more fluids and get labs drawn in 1-2 weeks, order in chart. Pt is agreeable. Rosalind Bergeron RN Per communication to nursing: Taqueria Vieira MD 12/04/2024 9:11 AM EDT Did not bead picker her my chart note, see below. Also her bach test was good. No definite signs of significant cognitive impairment." Message to patient: Written by Taqueria Vieira [...] us with any questions. Take Care, Dr Vieira" Allergies As of Date: 12/04/2024 Noted Allergy [...] Status:Closed by ROSALIND BERGERON on 12/06/24 Normal [facility] 25(OH)D3 [facility] 25-hydroxyvitamin D3 [Mass/Vol] 52.6 ng/mL Normal 31.0-80.0 [facility] Comment on above: Order Comment: Speci men Type: BLOOD SPECIMENOrdering Facility: [facility] Address: [address] [place] [address] Result Comment: Clas sification of 25 OH Vitamin D status: Deficiency/Insufficiency: < or = 30 ng/ml. Sufficiency/Optimal Levels: 31-80 ng/mL Toxicity: > 100 ng/mL. Test performed by chemiluminescent immunoassay. Performed By: #### 1 989-3 ####[facility] LABCLIA [id number] [place] [address] [place] CBC W Auto Differential pane l (Bld)on 11-30-2024 Basophils (Bld) [#/Vol] 0.09 10*3/uL [facility] Basophils/100 WBC (Bld) 1.4 % [facility] Differential cell count method Nom (Bld) Auto [facility] Eosinophils (Bld) [#/Vol] 0.18 10*3/uL [facility] Eosinophils/100 WBC (Bld) 2.8 % [facility] Erythrocyte distribution width (RBC) [Ratio] 14.1 % 11.5 - 15.0 % [facility] Hematocrit (Bld) [Volume fraction] 47.8 % High 36.0 - 46.0 % [facility] Hemoglobin (Bld) [Mass/Vol] 15.8 g/dL High 11.5 - 15.5 g/dL [facility] Immature granulocytes (Bld) [#/Vol] 0.04 10*3/uL [facility] Immature granulocytes/100 WBC (Bld) 0.6 % [facility] Interpretation and review of laboratory results Abnormal [facility] Lymphocytes (Bld) [#/Vol] 1.42 10*3/uL [facility] Lymphocytes/100 WBC (Bld) 21.9 % [facility] MCH (RBC) [Entitic mass] 28.9 pg 26.0 - 34.0 pg [facility] MCHC (RBC) [Mass/Vol] 33.1 g/dL 30.5 - 36.0 g/dL [facility] MCV (RBC) [Entitic vol] 87.5 fL 80.0 - 100.0 fL [facility] Monocytes (Bld) [#/Vol] 0.43 10*3/uL [facility] Monocytes/100 WBC (Bld) 6.6 % [facility] Neutrophils (Bld) [#/Vol] 4.31 10*3/uL [facility] Neutrophils/100 WBC (Bld) 66.7 % [facility] Nucleated RBC (Bld) [#/Vol] [facility] Nucleated RBC/100 WBC (Bld) [Ratio] 0 % /100 WBC [facility] Platelet mean volume (Bld) [Entitic vol] 10.4 fL 9.0 - 12.7 fL [facility] Platelets (Bld) [#/Vol] 300 10*3/uL [facility] RBC (Bld) [#/Vol] 5.46 10*6/uL High 3.90 - 5.2 0 m/uL [facility] WBC (Bld) [#/Vol] 6.47 10*3/uL [facility] Basophils (Bld) [#/Vol] 0.09 10*3/uL Normal <0.11 [facility] Comment on above: Order Comment: Speci men Type: BLOOD SPECIMENOrdering Facility: [facility] Address: [address] [place], [place] [address] Performed By: #### 5 7021-8 ####[facility] LABCLIA [id number] [place] [address] [place] Basophils/100 WBC (Bld) 1.4 % Normal [facility] Comment on above: Order Comment: Speci men Type: BLOOD SPECIMENOrdering Facility: [facility] Address: [address] [place] [address] Performed By: #### 5 7021-8 ####[facility] LABCLIA [id number] [place] [address] [place] Differential cell count method Nom (Bld) Auto Normal [facility] Comment on above: Order Comment: Speci men Type: BLOOD SPECIMENOrdering Facility: [facility] Address: [address] [place] [address] Performed By: #### 5 7021-8 ####[facility] LABIA [id number] [place] [address] [place] Eosinophils (Bld) [#/Vol] 0.18 10*3/uL Normal <0.46 [facility] Comment on above: Order Comment: Speci men Type: BLOOD SPECIMENOrdering Facility: [facility] Address: [address] [place] [address] Performed By: #### 5 7021-8 ####[facility] LABCLIA [id number] [place] [address] [place] Eosinophils/100 WBC (Bld) 2.8 % Normal [facility] Comment on above: Order Comment: Speci men Type: BLOOD SPECIMENOrdering Facility: [facility] Address: [address] [place] [address] Performed By: #### 5 7021-8 ####[facility] LABIA [id number] [place] [address] [place] Erythrocyte distribution width (RBC) [Ratio] 14.1 % Normal 11.5-15.0 [facility] Comment on above: Order Comment: Speci men Type: BLOOD SPECIMENOrdering Facility: [facility] Address: [address] [place] [address] Performed By: #### 5 7021-8 ####[facility] LABCLIA [id number] [place] [address] [place] Hematocrit (Bld) [Volume fraction] 47.8 % High 36.0-46.0 [facility] Comment on above: Order Comment: Speci men Type: BLOOD SPECIMENOrdering Facility: [facility] Address: [address] [place] [address] Performed By: #### 5 7021-8 ####[facility] LABCLIA [id number] [place] [address] [place] Hemoglobin (Bld) [Mass/Vol] 15.8 g/dL High 11.5-15.5 [facility] Comment on above: Order Comment: Speci men Type: BLOOD SPECIMENOrdering Facility: [facility] Address: [address] [place] [address] Performed By: #### 5 7021-8 ####[facility] LABIA [id number] [place] [address] [place] Immature granulocytes (Bld) [#/Vol] 0.04 10*3/uL Normal <0.10 [facility] Comment on above: Order Comment: Speci men Type: BLOOD SPECIMENOrdering Facility: [facility] Address: [address] [place] [address] Performed By: #### 5 7021-8 ####[facility] LABCLIA [id number] [place] [address] [place] Immature granulocytes/100 WBC (Bld) 0.6 % Normal [facility] Comment on above: Order Comment: Speci men Type: BLOOD SPECIMENOrdering Facility: [facility] Address: [address] [place] [address] Performed By: #### 5 7021-8 ####[facility] LABCLIA [id number] [place] [address] [place] Lymphocytes (Bld) [#/Vol] 1.42 10*3/uL Normal 1.00-4.00 [facility] Comment on above: Order Comment: Speci men Type: BLOOD SPECIMENOrdering Facility: [facility] Address: [address] [place] [address] Performed By: #### 5 7021-8 ####[facility] LABCLIA [id number] [place] [address] [place] Lymphocytes/100 WBC (Bld) 21.9 % Normal [facility] Comment on above: Order Comment: Speci men Type: BLOOD SPECIMENOrdering Facility: [facility] Address: [address] [place] [address] Performed By: #### 5 7021-8 ####[facility] LABCLIA [id number] [place] [address] [place] MCH (RBC) [Entitic mass] 28.9 pg Normal 26.0-34.0 [facility] Comment on above: Order Comment: Speci men Type: BLOOD SPECIMENOrdering Facility: [facility] Address: [address] [place] [address] Performed By: #### 5 7021-8 ####[facility] LABCLIA [id number] [place] [address] [place] MCHC (RBC) [Mass/Vol] 33.1 g/dL Normal 30.5-36.0 [facility] Comment on above: Order Comment: Speci men Type: BLOOD SPECIMENOrdering Facility: [facility] Address: [address] [place] [address] Performed By: #### 5 7021-8 ####[facility] LABCLIA [id number] [place] [address] [place] MCV (RBC) [Entitic vol] 87.5 fL Normal 80.0-100.0 [facility] Comment on above: Order Comment: Speci men Type: BLOOD SPECIMENOrdering Facility: [facility] Address: [address] [place] [address] Performed By: #### 5 7021-8 ####[facility] LABCLIA [id number] [place] [id number] [place] Monocytes (Bld) [#/Vol] 0.43 10*3/uL Normal <0.87 [facility] Comment on above: Order Comment: Speci men Type: BLOOD SPECIMENOrdering Facility: [facility] Address: [address] [place] [address] Performed By: #### 5 7021-8 ####[facility] LABCLIA [id number] [place] [address] [place] Monocytes/100 WBC (Bld) 6.6 % Normal [facility] Comment on above: Order Comment: Speci men Type: BLOOD SPECIMENOrdering Facility: [facility] Address: [address] [place] [address] Performed By: #### 5 7021-8 ####[facility] LABCLIA [id number] [place] [address] [place] Neutrophils (Bld) [#/Vol] 4.31 10*3/uL Normal 1.45-7.50 [facility] Comment on above: Order Comment: Speci men Type: BLOOD SPECIMENOrdering Facility: [facility] Address: [address] [place] [address] Performed By: #### 5 7021-8 ####[facility] LABCLIA [id number] [place] [id number] [place] Neutrophils/100 WBC (Bld) 66.7 % Normal [facility] Comment on above: Order Comment: Speci men Type: BLOOD SPECIMENOrdering Facility: [facility] Address: [address] [place] [address] Performed By: #### 5 7021-8 ####[facility] LABCLIA [id number] [place] [address] [place] Nucleated RBC (Bld) [#/Vol] 10*3/uL Normal <0.01 [facility] Comment on above: Order Comment: Speci men Type: BLOOD SPECIMENOrdering Facility: [facility] Address: [address] [place] [address] Performed By: #### 5 7021-8 ####[facility] LABIA [id number] [place] [address] [place] Nucleated RBC/100 WBC (Bld) [Ratio] 0.0 /100 WBC Normal [facility] Comment on above: Order Comment: Speci men Type: BLOOD SPECIMENOrdering Facility: [facility] Address: [address] [place] [address] Performed By: #### 5 7021-8 ####[facility] LABIA [id number] [place] [address] [place] Platelet mean volume (Bld) [Entitic vol] 10.4 fL Normal 9.0-12.7 [facility] Comment on above: Order Comment: Speci men Type: BLOOD SPECIMENOrdering Facility: [facility] Address: [address] [place] [address] Performed By: #### 5 7021-8 ####[facility] LABIA [id number] [place] [address] [place] Platelets (Bld) [#/Vol] 300 10*3/uL Normal 150-400 [facility] Comment on above: Order Comment: Speci men Type: BLOOD SPECIMENOrdering Facility: [facility] Address: [address] [place] [address] Performed By: #### 5 7021-8 ####[facility] LABCLIA [id number] [place] [id number] [place] RBC (Bld) [#/Vol] 5.46 10*6/uL High 3.90-5.20 [facility] Comment on above: Order Comment: Speci men Type: BLOOD SPECIMENOrdering Facility: [facility] Address: [address] [place] [address] Performed By: #### 5 7021-8 ####[facility] LABIA [id number] [place] [id number] [place] WBC (Bld) [#/Vol] 6.47 10*3/uL Normal 3.70-11.00 [facility] Comment on above: Order Comment: Speci men Type: BLOOD SPECIMENOrdering Facility: [facility] Address: [address] [place] [address] Performed By: #### 5 7021-8 ####[facility] LABIA [id number] [place] [address] [place] CHROMIUM BLOODon 11-30-2024 Chromium (Bld) [Mass/Vol] <0.5 Normal <0.6 [facility] Comment on above: Order Comment: Speci men Type: BLOOD SPECIMENOrdering Facility: [facility] Address: [address] [place] [address] Result Comment: This test was developed, and its performance characteristics determined by the [facility] Department of Pathology and Laboratory Medicine. It has not been cleared or approved by the FDA. The [facility] Department of Pathology and Laboratory Medicine is regulated under CLIA as qualified to perform high-complexity testing. This test is used for clinical purposes. It should not be regarded as investigational or for research. Performed By: #### Yu REYES, CHROM ####[facility] LABIA [id number] [place] [address] [place] CNOVon 11-30-2024 CNOV Office Visit ([facility] ) -- TIFFANIE RAMSEY ([id number]) 1960 F Date Time Provider Department 11/30/24 [...] received the COVID Vaccine? YES. Which vaccine? Ohai COVID-19 Symptom Review Was ill for roughly [...] 1 year to get shingles vaccine. Tolerated 4167-1976 season influenza vaccine. Recent/previously completed testing since [...] at-home BACH cognitive test sent to your [employer] account and return results when prompted. - Have blood and urine drawn for the long COVID panel: Complete blood count (CBC) and metabolic panel (CMP) Thyroid (TSH) Vitamin B12 and folate Vitamin D C-reactive protein (CRP) B-type natriuretic peptide (BNP) D-dimer Ferritin Hollywood-check (f (more content not included)... Normal [facility] COPPER BLOODon 11-30-2024 Copper [Mass/Vol] 107 ug/dL Normal 80-155 [facility] Comment on above: Order Comment: Kia mei Type: BLOOD SPECIMENOrdering Facility: [facility] Address: [address] [place] [address] Result Comment: This test was developed, and its performance characteristics determined by the [facility] Department of Pathology and Laboratory Medicine. It has not been cleared or approved by the FDA. The [facility] Department of Pathology and Laboratory Medicine is regulated under CLIA as qualified to perform high-complexity testing. This test is used for clinical purposes. It should not be regarded as investigational or for research. Performed By: #### 5 763-8, COPPER ####[facility] LABCLIA [id number] [place] [address] [place] CRP SerPl-mCncon 11-30-2024 CRP [Mass/Vol] mg/L Normal <0.9 [facility] Comment on above: Order Comment: Specale mei Type: BLOOD SPECIMENOrdering Facility: [facility] Address: [address] [place] [address] Performed By: #### 1 988-5, 2284-8, 2132-9 ####[facility] LABCLIA [id number] [place] [address] [place] Comprehensive metabolic 2000 panelon 11-30-2024 Albumin [Mass/Vol] 5.0 g/dL High 3.9-4.9 [facility] Comment on above: Order Comment: Speci men Type: BLOOD SPECIMENOrdering Facility: [facility] Address: [address] [place] [address] Performed By: #### 3 016-3, 93742-7, 60674-6, 2275-4 ####[facility] LABCLIA [id number] [place] [address] [place] ALP [Catalytic activity/Vol] 64 U/L Normal 34-123 [facility] Comment on above: Order Comment: Speci men Type: BLOOD SPECIMENOrdering Facility: [facility] Address: [address] [place] [address] Performed By: #### 3 016-3, 50449-0, 82241-7, 2275-08 ####[facility] LABCLIA [id number] [place] [address] [place] ALT [Catalytic activity/Vol] 36 U/L Normal 7-38 [facility] Comment on above: Order Comment: Speci men Type: BLOOD SPECIMENOrdering Facility: [facility] Address: [address] [place] [address] Performed By: #### 3 016-3, 31883-3, 11773-4, 2275-08 ####[facility] LABCLIA [id number] [place] [address] [place] Anion gap [Moles/Vol] 15 mmol/L Normal 8-15 [facility] Comment on above: Order Comment: Speci men Type: BLOOD SPECIMENOrdering Facility: [facility] Address: [address] [place] [address] Performed By: #### 3 016-3, 76653-5, 78630-9, 2275- ####[facility] LABCLIA [id number] [facility] [place] [id number] [place] AST [Catalytic activity/Vol] 31 U/L Normal 13-35 [facility] Comment on above: Order Comment: Speci men Type: BLOOD SPECIMENOrdering Facility: [facility] Address: [address] [place] [address] Performed By: #### 3 016-3, 34639-5, 08440-0, 2275-4 ####[facility] LABCLIA [id number] [facility] [facility] [address] [address] [place] Bilirubin [Mass/Vol] 1.0 mg/dL Normal 0.2-1.3 [facility] Comment on above: Order Comment: Speci men Type: BLOOD SPECIMENOrdering Facility: [facility] Address: [address] [place] [address] Performed By: #### 3 016-3, 69453-1, 06004-6, 2275-4 ####[facility] LABCLIA [id number] [place] [id number] [place] Calcium [Mass/Vol] 10.6 mg/dL High 8.5-10.2 [facility] Comment on above: Order Comment: Speci men Type: BLOOD SPECIMENOrdering Facility: [facility] Address: [address] [place] [address] Performed By: #### 3 016-3, 14574-8, 02433-5, 4 ####[facility] LABCLIA [id number] [place] [address] [place] Chloride [Moles/Vol] 101 mmol/L Normal 98-107 [facility] Comment on above: Order Comment: Speci men Type: BLOOD SPECIMENOrdering Facility: [facility] Address: [address] [place] [address] Performed By: #### 3 016-3, 74654-0, 20178-9, 2275-4 ####[facility] LABCLIA [id number] [facility] [address] [address] [place] CO2 [Moles/Vol] 25 mmol/L Normal 22-30 [facility] Comment on above: Order Comment: Speci men Type: BLOOD SPECIMENOrdering Facility: [facility] Address: [address] [place] [id number] Performed By: #### 3 016-3, 15051-4, 34784-9, 6-4 ####[facility] LABCLIA [id number] [facility] [address] [address] [place] Creatinine [Mass/Vol] 0.73 mg/dL Normal 0.58-0.96 [facility] Comment on above: Order Comment: Speci men Type: BLOOD SPECIMENOrdering Facility: [facility] Address: [address] [place] [address] Performed By: #### 3 016-3, 64332-9, 26345-1, 2275-4 ####[facility] LABIA [id number] [place] [id number] [place] Creatinine and Glomerular filtration rate.predicted panel (S/P/Bld) 91 mL/min/1.73m??? Normal >=60 [facility] Comment on above: Order Comment: Speci men Type: BLOOD SPECIMENOrdering Facility: [facility] Address: [address] [place] [address] Result Comment: Sophie mated Glomerular Filtration Rate [...] actual GFR. Performed By: #### 3 016-3, 67065-3, 72801-9, 2275-4 ####[facility] LABCLIA [id number] [address] [address] [place] Glucose [Mass/Vol] 91 mg/dL Normal 74-99 [facility] Comment on above: Order Comment: Speci men Type: BLOOD SPECIMENOrdering Facility: [facility] Address: [address] [place] [address] Result Comment: The [place] [employer] (ADA) provides guidance for cutoff [...] Standards of Medical Care in Diabetes 2016, [place] [employer]. Diabetes Care. 2016.39(Suppl 1). Performed By: #### 3 016-3, 16900-0, 43346-8, 2275- ####[facility] LABCLIA [id number] [place] [address] [place] Potassium [Moles/Vol] 4.1 mmol/L Normal 3.7-5.1 [facility] Comment on above: Order Comment: Speci men Type: BLOOD SPECIMENOrdering Facility: [facility] Address: [address] [place] [address] Performed By: #### 3 016-3, 45449-7, 20976-2, 2275-08 ####[facility] [id number] [place] [address] [place] Protein [Mass/Vol] 8.1 g/dL High 6.3-8.0 [facility] Comment on above: Order Comment: Speci men Type: BLOOD SPECIMENOrdering Facility: [facility] Address: [address] [place] [address] Performed By: #### 3 016-3, 94146-1, 57234-2, 2275-08 ####[facility] LABIA [id number] [place] [address] [place] Sodium [Moles/Vol] 141 mmol/L Normal 136-144 [facility] Comment on above: Order Comment: Speci men Type: BLOOD SPECIMENOrdering Facility: [facility] Address: [address] [place] [address] Performed By: #### 3 016-3, 98599-4, 62596-8, 2276-4 ####[facility] LABIA [id number] [place] [address] [place] Urea nitrogen [Mass/Vol] 12 mg/dL Normal 7-21 [facility] Comment on above: Order Comment: Speci men Type: BLOOD SPECIMENOrdering Facility: [facility] Address: [address] [place] [address] Performed By: #### 3 016-3, 34447-2, 03968-1, 2276-4 ####[facility] [id number] [address] [place] D dimer FEU PPP-mCncon 11-30 Fibrin D-dimer FEU (PPP) [Mass/Vol] <190 Normal <500 [facility] Comment on above: Order Comment: Speci men Type: BLOOD SPECIMENOrdering Facility: [facility] Address: [address] [place] [address] Result Comment: Froz en Plasma Aliquot Performed By: #### 4 8065-7 ####[facility] [id number] [place] [address] [place] D-DIMEROrdered By: Jatin Valdes on 11-30-2024 Fibrin D-dimer FEU (PPP) [Mass/Vol] NINF [facility] Comment on above: Frozen Plasma Aliquo t [id number] 11-30-2024 ECG01 Ventricular Rate : 7 8 BPM Atrial Rate : 78 BPM P-R Interval : 142 ms QRS Duration : 70 ms Q-T Interval : 358 ms QTC Calculation(Bazett) : 408 ms Calculated P [place] : 40 degrees Calculated R [place] : -2 degrees Calculated T [place] : 10 degrees NORMAL SINUS RHYTHM LOW VOLTAGE QRS, CONSIDER PULMONARY DISEASE, PERICARDIAL EFFUSION, OR NORMAL VARIANT BORDERLINE ECG NO PREVIOUS ECGS AVAILABLE Confirmed by NAMAN OROPEZA MD ([id number]) on 12/12/2024 3:19:04 PM Also confirmed by NAMAN OROPEZA MD ([id number]) on 12/12/2024 3:20:01 PM NAME : TIFFANIE RAMSEY PID : [id number] : 1960 Gender : Female Race : ORD : Procedure Date : Nov 30 2024 11:03:15 Edit Date : Dec 12 2024 15:26:56 Diagnosis: NORMAL SINUS RHYTHM LOW VOLTAGE QRS, CONSIDER PULMONARY DISEASE, PERICARDIAL EFFUSION, OR NORMAL VARIANT BORDERLINE ECG NO PREVIOUS ECGS AVAILABLE Confirmed by NAMAN OROPEZA MD ([id number]) on 12/12/2024 3:19:04 PM Also confirmed by NAMAN OROPEZA MD ([id number]) on 12/12/2024 3:20:01 PM Test Reason : Location : 2 : [facility] Overread By : NAMAN OROPEZA MD Edited By : NAMAN OROPEZA MD Referred By : TAQUERIA VIEIRA Acquired by : [id number], Normal [facility] Ferritin SerPl-mCncon 2024 Ferritin [Mass/Vol] 148.0 ng/mL Normal 14.7-205.1 [facility] Comment on above: Order Comment: Speci men Type: BLOOD SPECIMENOrdering Facility: [facility] Address: [address] [place] [address] Performed By: #### 3 016-3, 36284-1, 30618-1, 2276-4 ####[facility] LABCLIA [id number] [place] [address] [place] Fibrin D-dimer FEU (PPP) [Ma ss/Vol]Ordered By: Jatin Haji on 11-30-2024 D Dimer Age-related Cutoff 660 ng/mL FEU [facility] 500 ng/mL FEU is the D [...] M, et al. FARHEEN 2014 311:1117 and Jack Case N, et al. Leigh Int Med 2016 165:253. [facility] Fibrin D-dimer FEU (PPP) [Ma ss/Vol]on 11-30-2024 D DIMER AGE-RELATED CUTOFF 660 ng/mL FEU Normal [facility] Comment on above: Order Comment: Speci men Type: BLOOD SPECIMENOrdering Facility: [facility] Address: [address] [place] [address] Performed By: #### 4 8065-7 ####[facility] [id number] [place] [address] [place] Folate SerPl-mCncon 12-01-19 25 Folate [Mass/Vol] 16.8 ng/mL Normal >4.7 [facility] Comment on above: Order Comment: Speci men Type: BLOOD SPECIMENOrdering Facility: [facility] Address: [address] [place] [address] Performed By: #### 1 988-5, 2284-8, 2132-9 ####[facility] [id number] [place] [address] [place] MANGANESE BLDon 11-30-2024 Manganese (Bld) [Mass/Vol] 6.0 ug/L Normal 4.4-15.2 [facility] Comment on above: Order Comment: Speci men Type: BLOOD SPECIMENOrdering Facility: [facility] Address: [address] [place] [address] Result Comment: This test was developed, and its performance characteristics determined by the [facility] Department of Pathology and Laboratory Medicine. It has not been cleared or approved by the FDA. The [facility] Department of Pathology and Laboratory Medicine is regulated under CLIA as qualified to perform high-complexity testing. This test is used for clinical purposes. It should not be regarded as investigational or for research. Performed By: #### M AMY, CHROM ####[facility] LABCLIA [id number] [place] [address] [place] NT-proBNP [facility] 11-30 Natriuretic peptide.B prohormone N-Terminal [Mass/Vol] <36 Normal <125 [facility] Comment on above: Order Comment: Speci men Type: BLOOD SPECIMENOrdering Facility: [facility] Address: [address] [place] [address] Performed By: #### 3 016-3, 70608-5, 73397-6, 2276-4 ####[facility] LABCLIA [id number] [address] [place] OMEGACHECKon 11-30-2024 ARACHIDONIC ACID 12.6 % by wt Normal 8.6-15.6 [facility] Comment on above: Order Comment: Speci sigifredo Type: BLOOD SPECIMENOrdering Facility: [facility] Address: [address] [place] [address] Performed By: #### O MEGAC ####[facility] [id number] [address] [place] [address] ARACHIDONIC ACID/EPA RATIO 35.5 Normal 3.7-40.7 [facility] Comment on above: Order Comment: Speci men Type: BLOOD SPECIMENOrdering Facility: [facility] Address: [address] [place] [address] Result Comment: Rece ived Date: Performed By: #### O MEGAC ####[facility] [id number] [address] [place], [place] [id number] DHA 1.9 % by wt Normal 1.4-5.1 [facility] Comment on above: Order Comment: Speci men Type: BLOOD SPECIMENOrdering Facility: [facility] Address: [address] [place] [address] Performed By: #### O MEGAC ####[facility] [id number] [address] [address] DPA 1.0 % by wt Normal 0.8-1.8 [facility] Comment on above: Order Comment: Speci men Type: BLOOD SPECIMENOrdering Facility: [facility] Address: [address] [place] [address] Performed By: #### O MEGAC ####[facility] [id number] [address] [address] EPA 0.4 % by wt Normal 0.2-2.3 [facility] Comment on above: Order Comment: Speci men Type: BLOOD SPECIMENOrdering Facility: [facility] Address: [address] [place] [address] Performed By: #### O MEGAC ####[facility] [id number] [address] [place] [address] LINOLEIC ACID 27.4 % by wt Normal 18.6-29.5 [facility] Comment on above: Order Comment: Speci men Type: BLOOD SPECIMENOrdering Facility: [facility] Address: [address] [place] [address] Performed By: #### O MEGAC ####[facility] [id number] [address] [place] [address] OMEGA-3 TOTAL 3.2 % by wt Normal [facility] Comment on above: Order Comment: Speci men Type: BLOOD SPECIMENOrdering Facility: [facility] Address: [address] [place] [address] Performed By: #### O MEGAC ####[facility] [id number] [address] [address] OMEGA-6 TOTAL 43.6 % by wt Normal [facility] Comment on above: Order Comment: Speci men Type: BLOOD SPECIMENOrdering Facility: [facility] Address: [address] [place] [address] Result Comment: [facility] measures a number of omega-6 fatty acids with AA and LA being the two most abundant forms reported. Performed By: #### O MEGAC ####[facility] [id number] [address] [address] OMEGA-6/OMEGA-3 RATIO 13.5 Normal 3.7-14.4 [facility] Comment on above: Order Comment: Speci men Type: BLOOD SPECIMENOrdering Facility: [facility] Address: [address] [place] [address] Performed By: #### O MEGAC ####[facility] [id number] [place] [address] OMEGACHECK 3.2 % by wt Low >5.4 [facility] Comment on above: Order Comment: Speci men Type: BLOOD SPECIMENOrdering Facility: [facility] Address: [address] [place] [address] Result Comment: Incr easing blood levels of long-chain n-3 fatty acids are associated with a lower risk of sudden cardiac (1). Based on the top (75th percentile) and bottom (25th percentile) quartiles of the [facility] reference population, the following relative risk [...] to 3 weeks. (Reference: 1-Willie luis al. [facility]. 2002; 346: 1754-5759).This test was developed and its analytical performance characteristics have been determined by [facility]. It has not been cleared or approved by the U.S. Food and Drug Administration. This assay has been validated pursuant to the CLIA regulations and is used for clinical purposes. Performed By: #### O MEGAC ####[facility] [id number] [facility] [address] [id number] TSH SerPl-aCncon 11-30-2024 TSH Qn 0.919 m[IU]/L Normal 0.270-4.200 [facility] Comment on above: Order Comment: Speci men Type: BLOOD SPECIMENOrdering Facility: [facility] Address: [address] [place] [address] Performed By: #### 3 016-3, 44454-7, 80790-8, 2276-4 ####[facility] LABCLIA [id number] [place] [address] [place] Urinalysis complete panel (U )on 11-30-2024 Bacteria LM.HPF (Urine sed) [#/Area] Negative Negative /HPF [facility] Bilirubin Ql (U) Negative Negative [facility] Clarity (Unsp spec) Clear Clear [facility] Color (U) Yellow Yellow [facility] Epithelial cells LM.HPF (Urine sed) [#/Area] None Seen /HPF [facility] Glucose Test strip (U) [Mass/Vol] Negative Negative [facility] Hemoglobin Ql (U) Negative Negative [facility] Hyaline casts (Urine sed) [#/Area] 1-3 /LPF Abnormal 0 /LPF [facility] Interpretation and review of laboratory results Abnormal [facility] Ketones Ql (U) Negative Negative [facility] Leukocyte esterase Test strip Ql (U) Negative Negative [facility] Nitrite Ql (U) Negative Negative [facility] pH (U) 6.5 [pH] NINF - 8.5 [facility] Protein (U) [Mass/Vol] Negative Negative [facility] RBC LM.HPF (Urine sed) [#/Area] 0-2 /HPF 0-2 /HPF [facility] Specific gravity (U) [Rel density] 1.014 1.005 - 1.030 [facility] Urobilinogen Ql (U) 0.2 EU/dL 0.2-1.0 EU/dL [facility] WBC LM.HPF (Urine sed) [#/Area] 0-5 /HPF 0-5 /HPF [facility] This test was develo ped and its performance characteristics determined by [facility]'s [facility] [place] ([facility]). It has not been cleared or approved by the FDA. -[facility] is regulated under CLIA as qualified to perform high-complexity testing. This test is used for clinical purposes. It should not be regarded as investigational or for research. [facility] Bacteria LM.HPF (Urine sed) [#/Area] Negative Normal Negative [facility] Comment on above: Order Comment: Speci men Type: URINE SPECIMEN [facility] Address: [address] [place] [address] Performed By: #### 2 4356-8 #### [facility] CLIA [id number] [address] [place] [address] [place] Bilirubin Ql (U) Negative Normal Negative [facility] Comment on above: Order Comment: Speci men Type: URINE SPECIMEN [facility] Address: [address] [place] [address] Performed By: #### 2 4356-8 #### [facility] CLIA [id number] [address] [place] [address] [place] Clarity (Unsp spec) Clear Normal Clear [facility] Comment on above: Order Comment: Speci men Type: URINE SPECIMEN [facility] Address: [address] [place] [address] Performed By: #### 2 4356-8 #### [facility] CLIA [id number] [address] [place] [address] [place] Color (U) Yellow Normal Yellow [facility] Comment on above: Order Comment: Speci men Type: URINE SPECIMEN [facility] Address: [address] [place] [address] Performed By: #### 2 4356-8 #### [facility] CLIA [id number] [facility] [place] [address] [place] Epithelial cells LM.HPF (Urine sed) [#/Area] None Seen Normal [facility] Comment on above: Order Comment: Speci men Type: URINE SPECIMEN [facility] Address: [address] [place] [address] Performed By: #### 2 4356-8 #### [facility] CLIA [id number] [address] [place] [address] [place] Glucose Test strip (U) [Mass/Vol] Negative Normal Negative [facility] Comment on above: Order Comment: Speci men Type: URINE SPECIMEN [facility] Address: [address] [place] [address] Performed By: #### 2 4356-8 #### [facility] CLIA [id number] [address] [place] [address] [place] Hemoglobin Ql (U) Negative Normal Negative [facility] Comment on above: Order Comment: Speci men Type: URINE SPECIMEN [facility] Address: [address] [place] [address] Performed By: #### 2 4356-8 #### [facility] CLIA [id number] [address] [place] [address] [place] Hyaline casts (Urine sed) [#/Area] 1-3 /LPF Abnormal 0 /LPF [facility] Comment on above: Order Comment: Speci men Type: URINE SPECIMEN [facility] Address: [address] [place] [address] Performed By: #### 2 4356-8 #### [facility] CLIA [id number] [address] [place] [address] [place] Ketones Ql (U) Negative Normal Negative [facility] Comment on above: Order Comment: Speci men Type: URINE SPECIMEN [facility] Address: [address] [place] [address] Performed By: #### 2 4356-8 #### [facility] CLIA [id number] [address] [place] [address] [place] Leukocyte esterase Test strip Ql (U) Negative Normal Negative [facility] Comment on above: Order Comment: Speci men Type: URINE SPECIMEN [facility] Address: [address] [place] [address] Performed By: #### 2 4356-8 #### [facility] CLIA [id number] [address] [place] [address] [place] Nitrite Ql (U) Negative Normal Negative [facility] Comment on above: Order Comment: Speci men Type: URINE SPECIMEN [facility] Address: [address] [place] [address] Performed By: #### 2 4356-8 #### [facility] CLIA [id number] [address] [place] [address] [place] pH (U) 6.5 [pH] Normal <8.5 [facility] Comment on above: Order Comment: Speci men Type: URINE SPECIMEN [facility] Address: [address] [place] [address] Performed By: #### 2 4356-8 #### [facility] CLIA [id number] [address] [place] [address] [place] Protein (U) [Mass/Vol] Negative Normal Negative [facility] Comment on above: Order Comment: Speci men Type: URINE SPECIMEN [facility] Address: [address] [place] [address] Performed By: #### 2 4356-8 #### [facility] CLIA [id number] [address] [place] [address] [place] RBC LM.HPF (Urine sed) [#/Area] 0-2 /HPF Normal 0-2 /HPF [facility] Comment on above: Order Comment: Speci men Type: URINE SPECIMEN [facility] Address: [address] [place] [address] Performed By: #### 2 4356-8 #### [facility] CLIA [id number] [address] [place] [address] [place] Specific gravity (U) [Rel density] 1.014 Normal 1.005-1.030 [facility] Comment on above: Order Comment: Speci men Type: URINE SPECIMEN [facility] Address: [address] [place] [address] Performed By: #### 2 4356-8 #### [facility] CLIA [id number] [address] [place] [address] [place] Urobilinogen Ql (U) 0.2 EU/dL Normal 0.2-1.0 EU/dL [facility] Comment on above: Order Comment: Speci men Type: URINE SPECIMEN [facility] Address: [address] [place] [address] Performed By: #### 2 4356-8 #### [facility] CLIA [id number] [address] [place] [address] [place] WBC LM.HPF (Urine sed) [#/Area] 0-5 /HPF Normal 0-5 /HPF [facility] Comment on above: Order Comment: Speci men Type: URINE SPECIMEN [facility] Address: [address] [place] [address] Performed By: #### 2 4356-8 #### [facility] CLIA [id number] [address] [place] [address] [place] Vit B12 SerPl-mCncon -03-2 025 Cobalamin (Vitamin B12) [Mass/Vol] 713 pg/mL Normal 232-1245 [facility] Comment on above: Order Comment: Speci men Type: BLOOD SPECIMENOrdering Facility: [facility] Address: [address] [place] [address] Performed By: #### 1 988-5, 2284-8, 2132-9 ####[facility] [id number] [facility]ITAL[facility] [address] [place] XR CHEST 2V FRONTAL/LATon XR CHEST 2V [...] tissues: Unremarkable. IMPRESSION: No acute radiographic abnormality. [employer] Operator: [email or web address] Transcribe Date/Time: Nov 30 2024 7:46P Dictated by : DALE GOODWIN MD This examination was interpreted and the report reviewed and electronically signed by: DALE GOODWIN MD on Nov 30 2024 7:46PM EST [id number] Normal [facility] XR Chest PA and Lateralon IMPRESSION: No acute radiographic abnormality. [employer] Operator: [email or web address] Transcribe Date/Time: Nov 30 2024 7:46P Dictated [...] Unremarkable. IMPRESSION IMPRESSION: No acute radiographic abnormality. [employer] Operator: [email or web address] Transcribe Date/Time: Nov 30 2024 7:46P Dictated by : DALE GOODWIN MD This examination was interpreted and the report reviewed and electronically signed by: DALE GOODWIN MD on Nov 30 2024 7:46PM EST [facility] Radiology Study observation (narrative) [facility] XR Chest PA and LateralOrder ed By: Ccf Provider on 11-30-2024 [facility] Zinc SerPl-mCncon 11-30-2024 Zinc [Mass/Vol] 80 ug/dL Normal 60-120 [facility] Comment on above: Order Comment: Speci men Type: BLOOD SPECIMENOrdering Facility: [facility] Address: [address] [place] [address] Result Comment: This test was developed, and its performance characteristics determined by the [facility] Department of Pathology and Laboratory Medicine. It has not been cleared or approved by the FDA. The [facility] Department of Pathology and Laboratory Medicine is regulated under CLIA as qualified to perform high-complexity testing. This test is used for clinical purposes. It should not be regarded as investigational or for research. Performed By: #### 5 763-8, COPPER ####[facility] LABCLIA [id number] [address] Joe 11-07-2024 [facility] -- TIFFANIE RAMSEY ([id number]) 1960 F Date Time Provider Department 11/07/24 TAQUERIA VIEIRA [facility] During your visit today, we recorded [...] soonest even when I look for a "physical" slot. Advised her would add to wait [...] Fully Assessed Reason for Visit: Patient Question [1477] Prescriptions as of 11/07/2024 - ergocalciferol 50,000 [...] Status:Closed by GLENNY MERCADO on 11/07/24 Normal [facility] Gastroenterology Visit Repor ton 10-05-2024 Gastroenterology Visit Report [facility] Gastroenterology [address] [place] [address] OFFICE VISIT Date of Service: 10/05/24 MR#: [id number] Acct: [id number] Name: TIFFANIE RAMSEY Rep #: [id number] : 1960 Provider: VERENICE landin Age/Sex: 64/F Location[place] [facility] [place] Status: Signed Intake Vital Signs 08/31/24 10:11 10/05/24 10:39 Height 5 ft 2 in 5 ft 2 in Weight: 135 lb 8 oz 132 lb BMI 24.7 24.1 BP 140/80 H Position Sitting Pulse 83 Pulse Oximetry (%) 98 Oxygen Delivery Method room air Intake Visit Reasons: Abdominal complaints 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 Pt has prior hx of colonoscopy. Pt reports she has stress that seems to effect her bowel movements. Pt reports she is very sensitive to taking supplements. She reports when she takes supplements she get abdominal pain. Pt takes miralax to relieve constipation. Takes probiotics but it taking a break from it currently. [facility] Medical History Left shoulder pain Surgical History Hx of cataract extraction History of ear surgery Social History Smoking Status: Never smoker alcohol intake: former HPI HPI Details: TIFFANIE RAMSEY, is a 64 F who presents to the office today for establishment with [facility] for concerns regarding LUQ abdominal pain. She states that the pain is intermittent and "travels but seems to settle in that area until a BM gives relief." She states that she's had multiple colonoscopies and states that nothing is ever seen in this area. She reports fatigue and difficulty "stomaching" her supplements ever since her COVID infection fall of . She reports participating in a clinic for "long COVID." She has a chronic "sinus infection" along with complaints of heartburn, excessive gas, [...] body habitus Orientation: alert and oriented x3 HENAL Head: normal to inspection Ears: hearing grossly normal bilaterally Nose: external nose normal Face and sinus: normal facial exam and face symmetric Mouth: oral mucosae normal Eyes General: appearance no (more content not included)... Normal [facility] 25(OH)D3 [facility] 2024 25-hydroxyvitamin D3 [Mass/Vol] 25.5 ng/mL Low 31.0-80.0 [facility] Comment on above: Order Comment: Speci men Type: BLOOD SPECIMENOrdering Facility: [facility] Address: [address] [place] [address] Performed By: #### 1 989-3 ####[facility] LABCLIA [id number] [place] [address] [place] Joe 09-11-2024 CNPN Telephone ([facility]) -- TIFFANIE RAMSEY ([id number]) 1960 F Date Time Provider Department 09/11/24 [...] to: self Call patient at: at home [phone] (home) [phone] (cell) Payor: MEDICARE / Plan: MEDICARE A [...] Encounter Status:Closed by MAIRA NEVILLE on 09/13/24 [facility] Telephone (PUMT) -- TIFFANIE RAMSEY ([id number]) 1960 F Date Time Provider Department 09/11/24 [facility] During your visit today, we recorded the following information about you: Rosalind Bergeron RN 09/11/2024 11:57 AM Signed Consult 05/20/23 with Yumiko Contreras APRN.ROADSIDE MECHANIC Follow up: scheduled with Dr. Vieira 10/19/24 Call transferred to [facility] nurse, pt returning call to make appointment with [facility] I started to assist to schedule her, but reviewed chart and she had been seen in [facility] in 2022 for one visit. 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 I reviewed with patient that [facility] is not intended place to be seen for Vaccine reactions, as discussed during initial appointment Pt state she doesn't think her problem is vaccine reactions. She states her immune system was "messed up" by Covid and that is what is causing her issues with vaccines and symptoms. She states she is "at the end of her rope" and can't think of anyone else to [...] Assessed Reason for Visit: Appointment [186] Cmt: [facility] follow up Prescriptions as of 09/11/2024 - [...] Encounter Status:Closed by ROSALIND BERGERON on 09/11/24 [facility] CNOVon 09-08-2024 CNOV Office Visit (AMDERM ) -- TIFFANIE RAMSEY ([id number]) 1960 F Date Time Provider Department 09/08/24 [...] Past Histories independently gathered by the clinical call center support consultant and the remaining scribed note accurately describes [...] Order(s):VITAMIN D 25 HYDROXY [SQVITD] Order #: [id number] FUTURE fluocinonide (LIDEX) 0.05 % external solutionApply [...] [M75.82] 07/13/2023 (more content not included)... Normal [facility] Orthopedic Visit Reporton Orthopedic Visit Report [facility] [address] [place] [address] OFFICE VISIT Date of Service: 08/31/24 MR#: [id number] Acct: [id number] Name: TIFFANIE RAMSEY Rep #: [id number] : 1960 Provider: Dr. Shan rich MD Age/Sex: 64/F Location[place] [facility] [place] Status: Signed with Addenda ADDENDUM by THANIA [...] Performing Provider: Shan Bolaños MD Performing Location: [facility] Administered by: Shan Bolaños MD on 08/31/24 11:23 Dose Route Admin Location Dispensed Lot Number Expiration Date [facility] Man ufacturer 40 mg intra-articular Left shoulder 1 mL [id number] 09/28/25 5639-9573-44 BM [facility] Date cc: * Signed [...] PO 08/31/24 08/31/24 History cell-Bifido 25 billion bkll-MYT-lamqv capsule fluticasone propionate 50 1 spray intranasal [...] that that seems to aggravate the shoulders. Upqmm-kcpf-qkwxtwha little soreness on both the shoulders but the left side is definitely worse and there is some catching there. Supplemental Info X-rays 4 views left shoulder demonstrate no acute abnormalities. Moderate AC joint arthrosis glenohumeral joint space well-maintained. Small cyst formation of the greater tuberosity. Coding Level of Care Code Attention Deonna Diagnoses Left shoulder pain M25.512 Comment 35165 and cpt inject major joint Assessment and [...] to thoroughly dry over 3 minutes. Used [employer] (more content not included)... Normal [facility] Shoulder min 2 Viewson 08-31 Shoulder min 2 Views [facility] [address] [place] [address] [id number] Shoulder min 2 Views MR#: [id number] Acct: [id number] Name: TIFFANIE RAMSEY Rep #: [id number] : 1960 F 64 From: Km Hoover MD PCP: Dr. Bello Davenport MD Status: DEP AMB Study: Shoulder min 2 Views Date of Exam: 08/31/24 Exam# [id number] Ordering Dr: Shan Bolaños MD PROCEDURE: SHOULDER MIN 2 VIEWS 08/31/2024 REASON FOR EXAM: PAIN, NO INJURY TECHNIQUE: Four views left shoulder COMPARISON: None available FINDINGS: No fracture or dislocation. The joint spaces appear within limits. Visualized left lung appears clear. RAD/Shoulder min 2 Views IMPRESSION: No fracture or dislocation. Reading Location: [facility] CC: Dr. Shan Bolaños MD; Dr. 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 Normal [facility] Absolute neutrophil countOrd ered By: Bello Davenport on 08-11-2024 Neutrophils (Bld) [#/Vol] 3.7 10*3/uL 2.0-7.7 [facility] Anion gap in Serum or Plasma Ordered By: Bello Davenport on 08-11-2024 Anion gap [Moles/Vol] 10 mmol/L 5- [facility] BUN/creatinine ratioOrdered By: Bello Davenport on 08-11-2024 Urea nitrogen/Creatinine [Mass ratio] 20.0 mg/mg 10-20 [facility] Basophil percentageOrdered B y: Bello Guook on 08-11-2024 Basophils/100 WBC (Bld) 1.4 % High 0-1 [facility] Bilirubin, totalOrdered By: Bello Guook on 08-11-2024 Bilirubin [Mass/Vol] 0.74 mg/dL 0.00-1.30 [facility] CBC W/Diff, Automatedon 07-29 Absolute Lymph 1.17 X10 3/uL Normal 0.83-4.51 [facility] Comment on above: Performed By: #### L 506.1001, L500.4050, L501.9520, L100.0100 ####[facility] [address] [place], [address] Absolute Neut 3.7 X10 3/uL Normal 2.0-7.7 [facility] Comment on above: Performed By: #### L 506.1001, L500.4050, L501.9520, L100.0100 ####[facility] [address] [place], [address] Basophils/100 WBC (Bld) 1.4 % High 0-1 [facility] Comment on above: Performed By: #### L 506.1001, L500.4050, L501.9520, L100.0100 ####[facility] [address] [place], [address] Eosinophils/100 WBC (Bld) 3.3 % Normal 0-5 [facility] Comment on above: Performed By: #### L 506.1001, L500.4050, L501.9520, L100.0100 ####[facility] [address] [place], [address] Erythrocyte distribution width (RBC) [Ratio] 13.8 % Normal 11.6-14.6 [facility] Comment on above: Performed By: #### L 506.1001, L500.4050, L501.9520, L100.0100 ####[facility] [address] [place], [address] Hematocrit (Bld) [Volume fraction] 43.9 % Normal 37-47 [facility] Comment on above: Performed By: #### L 506.1001, L500.4050, L501.9520, L100.0100 ####[facility] [address] [place], [address] Hemoglobin (Bld) [Mass/Vol] 14.7 g/dL Normal 12.0-15.0 [facility] Comment on above: Performed By: #### L 506.1001, L500.4050, L501.9520, L100.0100 ####[facility] [address] [place], [address] IG% 0.500 Normal 0.0-0.9 [facility] Comment on above: Result Comment: IG% - Immature Granulocytes (promyelocytes, myelocytes and metamyelocytes) > 1% indicates that a LEFT SHIFT is Present. Performed By: #### L 506.1001, L500.4050, L501.9520, L100.0100 ####[facility] [address] [place], [address] Lymphocytes/100 WBC (Bld) 20.5 % Normal 19-41 [facility] Comment on above: Performed By: #### L 506.1001, L500.4050, L501.9520, L100.0100 ####[facility] [address] [place], [address] MCH (RBC) [Entitic mass] 29.0 pg Normal 27.0-32.0 [facility] Comment on above: Performed By: #### L 506.1001, L500.4050, L501.9520, L100.0100 ####[facility] [address] [place], [address] MCHC (RBC) [Mass/Vol] 33.5 g/dL Normal 32-36 [facility] Comment on above: Performed By: #### L 506.1001, L500.4050, L501.9520, L100.0100 ####[facility] [address] [place], [address] MCV (RBC) [Entitic vol] 86.6 fL Normal 81-99 [facility] Comment on above: Performed By: #### L 506.1001, L500.4050, L501.9520, L100.0100 ####[facility] [address] [place], [address] Monocytes/100 WBC (Bld) 9.1 % Normal 0-10 [facility] Comment on above: Performed By: #### L 506.1001, L500.4050, L501.9520, L100.0100 ####[facility] [address] [place], [address] Neutrophils/100 WBC (Bld) 65.2 % Normal 47-70 [facility] Comment on above: Performed By: #### L 506.1001, L500.4050, L501.9520, L100.0100 ####[facility] [address] [place], [address] Nucleated RBC (Bld) [#/Vol] 0 10*3/uL Normal 0-5 [facility] Comment on above: Performed By: #### L 506.1001, L500.4050, L501.9520, L100.0100 ####[facility] [address] [place], [address] Platelet mean volume (Bld) [Entitic vol] 9.5 fL Normal 6.2-12.0 [facility] Comment on above: Performed By: #### L 506.1001, L500.4050, L501.9520, L100.0100 ####[facility] [address] [place], [address] Platelets (Bld) [#/Vol] 296 10*3/uL Normal 150-450 [facility] Comment on above: Performed By: #### L 506.1001, L500.4050, L501.9520, L100.0100 ####[facility] [address] [place], [address] RBC (Bld) [#/Vol] 5.07 10*6/uL Normal 4.2-5.4 [facility] Comment on above: Performed By: #### L 506.1001, L500.4050, L501.9520, L100.0100 ####[facility] [address] [place], [address] RDW SD 43.9 fl Normal 35.1-43.9 [facility] Comment on above: Performed By: #### L 506.1001, L500.4050, L501.9520, L100.0100 ####[facility] [address] [place], [address] WBC (Bld) [#/Vol] 5.7 10*3/uL Normal 4.4-11.0 [facility] Comment on above: Performed By: #### L 506.1001, L500.4050, L501.9520, L100.0100 ####[facility] [address] [place], [address] Carbon dioxide, total [Moles /volume] in Central venous bloodOrdered By: Bello Davenport on 08-11-2024 CO2 [Moles/Vol] 25.9 mmol/L 21.0-32.0 [facility] Chloride assayOrdered By: Johnathan Davenport on 08-11-2024 Chloride [Moles/Vol] 104 mmol/L 98-108 [facility] Comprehensive Metabolic Prof ilon 08-11-2024 Albumin [Mass/Vol] 4.3 g/dL Normal 3.4-4.8 [facility] Comment on above: Performed By: #### L 506.1001, L500.4050, L501.9520, L100.0100 ####[facility] [address] [place], [address] Albumin/Globulin [Mass ratio] 1.4 {ratio} Normal 0.9-2.4 [facility] Comment on above: Performed By: #### L 506.1001, L500.4050, L501.9520, L100.0100 ####[facility] [address] [place], [address] ALK PHOS 62 U/L Normal 35-104 [facility] Comment on above: Performed By: #### L 506.1001, L500.4050, L501.9520, L100.0100 ####[facility] [address] [place], [address] ALT [Catalytic activity/Vol] 19 U/L Normal <=34 [facility] Comment on above: Performed By: #### L 506.1001, L500.4050, L501.9520, L100.0100 ####[facility] [address] [place], [address] AST [Catalytic activity/Vol] 22 U/L Normal <=31 [facility] Comment on above: Performed By: #### L 506.1001, L500.4050, L501.9520, L100.0100 ####[facility] [address], [address] Bilirubin [Mass/Vol] 0.74 mg/dL Normal 0.00-1.30 [facility] Comment on above: Performed By: #### L 506.1001, L500.4050, L501.9520, L100.0100 ####[facility] [address] [place], [address] BUN/CRE 20.0 RATIO Normal 10-20 [facility] Comment on above: Performed By: #### L 506.1001, L500.4050, L501.9520, L100.0100 ####[facility] [address] [place], [address] Calcium [Mass/Vol] 9.9 mg/dL Normal 7.6-11.0 [facility] Comment on above: Performed By: #### L 506.1001, L500.4050, L501.9520, L100.0100 ####[facility] [address] [place], [address] Chloride [Moles/Vol] 104 mmol/L Normal 98-108 [facility] Comment on above: Performed By: #### L 506.1001, L500.4050, L501.9520, L100.0100 ####[facility] [address] [place], [address] CO2 [Moles/Vol] 25.9 mmol/L Normal 21.0-32.0 [facility] Comment on above: Performed By: #### L 506.1001, L500.4050, L501.9520, L100.0100 ####[facility] [address] [place], [address] Creatinine [Mass/Vol] 0.75 mg/dL Normal 0.70-1.20 [facility] Comment on above: Performed By: #### L 506.1001, L500.4050, L501.9520, L100.0100 ####[facility] [address] [place], [address] GAP 10 Normal 5-15 [facility] Comment on above: Performed By: #### L 506.1001, L500.4050, L501.9520, L100.0100 ####[facility] [address] [place], [address] GFR/1.73 sq M.predicted among non-blacks MDRD (S/P/Bld) [Vol rate/Area] 88 mL/min/{1.73_m2} Normal >60 [facility] Comment on above: Result Comment: mL/m in/1.73m2 CKD-EPI Creatinine Equation (2020) Performed By: #### L 506.1001, L500.4050, L501.9520, L100.0100 ####[facility] [address] [place], [address] Globulin (S) [Mass/Vol] 3.1 g/dL Normal 2.2-4.2 [facility] Comment on above: Performed By: #### L 506.1001, L500.4050, L501.9520, L100.0100 ####[facility] [address] [place], [address] Glucose [Mass/Vol] 88 mg/dL Normal 70-99 [facility] Comment on above: Performed By: #### L 506.1001, L500.4050, L501.9520, L100.0100 ####[facility] [address] [place], [address] Potassium [Moles/Vol] 4.4 mmol/L Normal 3.3-5.1 [facility] Comment on above: Performed By: #### L 506.1001, L500.4050, L501.9520, L100.0100 ####[facility] [address] [place], [address] Sodium [Moles/Vol] 140 mmol/L Normal 133-145 [facility] Comment on above: Performed By: #### L 506.1001, L500.4050, L501.9520, L100.0100 ####[facility] [address] [place], [address] T PROT 7.5 g/dL Normal 5.9-8.4 [facility] Comment on above: Performed By: #### L 506.1001, L500.4050, L501.9520, L100.0100 ####[facility] [address] [place], [address] Urea nitrogen [Mass/Vol] 15 mg/dL Normal 4-19 [facility] Comment on above: Performed By: #### L 506.1001, L500.4050, L501.9520, L100.0100 ####[facility] [address] [place], [address] Eosinophil percentageOrdered By: Bello Davenport on 08-11-2024 Eosinophils/100 WBC (Bld) 3.3 % 0-5 [facility] Erythrocyte distribution wid th ratioOrdered By: Bello Davenport on 08-11-2024 Erythrocyte distribution width (RBC) [Ratio] 13.8 % 11.6-14.6 [facility] Erythrocyte distribution wid th standard deviationOrdered By: Bello Davenport on 08-11-2024 Erythrocyte distribution width (RBC) [Entitic vol] 43.9 fL 35.1-43.9 [facility] GFR/1.73 sq M.predicted lloyd g non-blacks MDRD (S/P/Bld) [Vol rate/Area]Ordered By: Bello Davenport on 08-11-2024 Estimated GFR (MDRD) Non-Af Amer 88 >60 [facility] Comment on above: mL/min/1.73m2 CKD-EP I Creatinine Equation (2020) Hematocrit Auto (Bld) [Volum e fraction]Ordered By: Bello Davenport on 08-11-2024 Hematocrit (Bld) [Volume fraction] 43.9 % 37-47 [facility] Hemoglobin measurementOrdere d By: Bello Davenport on 08-11-2024 Hemoglobin (Bld) [Mass/Vol] 14.7 g/dL 12.0-15.0 [facility] Immature granulocytes/100 WB C Auto (Bld)Ordered By: Bello Davenport on 08-11-2024 Immature granulocytes/100 WBC (Bld) 0.500 % 0.0-0.9 [facility] Comment on above: IG% - Immature Granu locytes (promyelocytes, myelocytes and metamyelocytes) > 1% indicates that a LEFT SHIFT is Present. L506.1001on 08-11-2024 Vitamin D 25-OH 23.7 ng/mL Low 30-100 [facility] Comment on above: Result Comment: Jennifer min D Status Deficiency: <20 ng/mL (50nmol/L) Insufficiency: 20-30 ng/mL (50-75 nmol/L) Sufficiency: 30-100 ng/mL (75-250 nmol/L) Toxicity: >100 ng/mL (>250 nmol/L) Performed By: #### L 506.1001, L500.4050, L501.9520, L100.0100 ####[facility] [address] [place], [address] Laboratory - Chemistry and C hemistry - challengeOrdered By: Bello Davenport on 08-11-2024 AST [Catalytic activity/Vol] 22 U/L <32 [facility] Lymphocytes Auto (Unsp spec) [#/Vol]Ordered By: Bello Davenport on 08-11-2024 Lymphocytes (Bld) [#/Vol] 1.17 10*3/uL 0.83-4.51 [facility] Lymphocytes/100 WBC Auto (Un sp spec)Ordered By: Bello Davenport on 08-11-2024 Lymphocytes/100 WBC (Bld) 20.5 % 19-41 [facility] MCV (mean corpuscular volume ) determinationOrdered By: Bello Davenport on 08-11-2024 MCV (RBC) [Entitic vol] 86.6 fL 81-99 [facility] Mean corpuscular hemoglobin (MCH) determinationOrdered By: Bello Davenport on 08-11-2024 MCH (RBC) [Entitic mass] 29.0 pg 27.0-32.0 [facility] Mean corpuscular hemoglobin concentration (MCHC) determinationOrdered By: Bello Davenport on 08-11-2024 MCHC (RBC) [Mass/Vol] 33.5 g/dL 32-36 [facility] Mean platelet volume determi nationOrdered By: Bello Davenport on 08-11-2024 Platelet mean volume (Bld) [Entitic vol] 9.5 fL 6.2-12.0 [facility] Monocyte percentageOrdered B y: Bello Davenport on 08-11-2024 Monocytes/100 WBC (Bld) 9.1 % 0-10 [facility] Neutrophil percentageOrdered By: Bello Davenport on 08-11-2024 Neutrophils/100 WBC (Bld) 65.2 % 47-70 [facility] Nucleated red blood cell per centageOrdered By: Bello Davenport on 08-11-2024 Nucleated RBC/100 WBC (Bld) [Ratio] 0 % 0-5 [facility] Platelet countOrdered By: Johnathan Davenport on 08-11-2024 Platelets (Bld) [#/Vol] 296 10*3/uL 150-450 [facility] Potassium (Unsp spec) [Mass/ Vol]Ordered By: Bello Davenport on 08-11-2024 Potassium [Moles/Vol] 4.4 mmol/L 3.3-5.1 [facility] RBC Auto (Bld) [#/Vol]Ordere d By: Bello Davenport on 08-11-2024 RBC (Bld) [#/Vol] 5.07 10*6/uL 4.2-5.4 [facility] Serum creatinine measurement (mass/volume)Ordered By: Bello Davenport on 08-11-2024 Creatinine [Mass/Vol] 0.75 mg/dL 0.70-1.20 [facility] Serum globulin measurementOr dered By: Bello Davenport 08-11-2024 Globulin (S) [Mass/Vol] 3.1 g/dL 2.2-4.2 [facility] Serum glucose measurement (m ass/volume)Ordered By: Bello Davenport on 08-11-2024 Glucose [Mass/Vol] 88 mg/dL 70-99 [facility] Serum or plasma alanine armstrong otransferase (ALT) measurementOrdered By: Bello [place] on 08-11-2024 ALT [Catalytic activity/Vol] 19 U/L <35 [facility] Serum or plasma albumin bianca urement (mass/volume)Ordered By: Bello [place]enport on 08-11-2024 Albumin [Mass/Vol] 4.3 g/dL 3.4-4.8 [facility] Serum or plasma albumin/glob ulin mass ratioOrdered By: Bello [place]en[place] on 08-11-2024 Albumin/Globulin [Mass ratio] 1.4 {ratio} 0.9-2.4 [facility] Serum or plasma alkaline zuhair sphatase measurementOrdered By: Bello [place]enport 08-11-2024 ALP [Catalytic activity/Vol] 62 U/L 35-104 [facility] Serum or plasma calcium bianca urement (mass/volume)Ordered By: Bello [place] on 08-11-2024 Calcium [Mass/Vol] 9.9 mg/dL 7.6-11.0 [facility] Serum or plasma urea nitroge n measurement (mass/volume)Ordered By: Bello [place]en[place] 08-11-2024 Urea nitrogen [Mass/Vol] 15 mg/dL 4-19 [facility] Sodium levelOrdered By: Bello [place]en[place] 08-11-2024 Sodium [Moles/Vol] 140 mmol/L 133-145 [facility] TSH DL <= 0.005 mIU/L QnOrde red By: Bello [place]en[place] on 08-11-2024 Thyroid Stimulating Hormone (TSH) 0.902 uIU/mL 0.300-4.200 [facility] Thyroid Stim Hormone (TSH)on 08-11-2024 TSH 0.902 uIU/mL Normal 0.300-4.200 [facility] Comment on above: Performed By: #### L 506.1001, L500.4050, L501.9520, L100.0100 ####[facility] [id number] [place], [address] Total proteinOrdered By: Bello [place]enport on 08-11-2024 Protein [Mass/Vol] 7.5 g/dL 5.9-8.4 [facility] Vitamin D, 25-hydroxyOrdered By: Bello [place]en[place] on 08-11-2024 Vitamin D 25-Hydroxy 23.7 ng/mL Low 30-100 [facility] Comment on above: Vitamin D StatusDefi ciency: <20 ng/mL (50nmol/L)Insufficiency: 20-30 ng/mL (50-75 nmol/L)Sufficiency: 30-100 ng/mL (75-250 nmol/L)Toxicity: >100 ng/mL (>250 nmol/L) White blood cell (WBC) count Ordered By: Bello [place]en[place] on 08-11-2024 WBC (Bld) [#/Vol] 5.7 10*3/uL 4.4-11.0 [facility] ED NOTEon 07-02-2024 ED NOTE HNO ID: [id number] Author: MADINA ROLLINS RN Service: Emergency Medicine Author Type: Registered Nurse Type: ED Notes Filed: 07/02/2024 13:25 Note Text: Patient is alert and oriented, denies any questions/concerns at this time. Patient verbalizes understanding of d/c instructions and follow up care. Patient ambulates from department at this time. [facility] ED NOTE HNO ID: [id number] Author: MADINA ROLLINS RN Service: Emergency Medicine Author Type: Registered Nurse Type: ED Notes Filed: 07/02/2024 11:48 Note Text: Pt reports finger laceration from cutting food. Pt is alert and oriented ambulates to room 12 [facility] ED PROV NOTEon 07-02-2024 ED PROV NOTE HNO ID: [id number] Author: JAMYE INGRAM MD Service: Emergency Medicine Author Type: [...] to take the blade out of the manager food safety. No other injuries. PAST MEDICAL HISTORY Diagnosis [...] 58.1 kg (128 lb) 1.575 m (5' 2") Physical Exam Vitals and nursing note reviewed. [...] SARS-CoV-2 (COVID-19) RNA ENID+probe Ql (Unsp spec) [facility] M100.678on 05-22-2024 M100.678 Pending SARS-CoV-2 (COVID 19) Negative INFLUENZA A Negative INFLUENZA B Negative RSV PCR Negative Normal [facility] Comment on above: Performed By: #### M 100.678 ####[facility] [address] [place], [address] No Panel Informationon 09-08 IMPRESSION: Minimal L2 superior endplate height loss, age indeterminate. Mild multilevel degenerative changes in the lumbar spine, as described. Hip joint spaces are maintained bilaterally. [employer] Operator: PSCB Transcribe Date/Time: Sep 09 2023 4:36P Dictated by : SHELIA SALEH MD This examination was interpreted and the report reviewed and electronically signed by: SHELIA SALEH MD on Sep 09 2023 4:41PM [facility] No Panel InformationOrdered By: Cc Provider on 09-09-2023 [facility] XR HIP BILATERAL 5V PEL/AP/L AT [...] MORE PAIN IN HER LEFT HIP (accession [id number]), DEGENERATIVE DISC DISEASE OF LUMBAR (accession [id number]) CLINICAL INFORMATION ( PROVIDED BY ORDERING CLINICIAN) [...] Mild degenerative change at the pubic symphysis. [facility] Provider, Ccpatito Beerosio hernandez [place] - 09/09/2023 * * *Final Report* * [...] MORE PAIN IN HER LEFT HIP (accession [id number]), DEGENERATIVE DISC DISEASE OF LUMBAR (accession [id number]) CLINICAL INFORMATION ( PROVIDED BY ORDERING CLINICIAN) [...] described. Hip joint spaces are maintained bilaterally. [employer] Operator: PSCB Transcribe Date/Time: Sep 09 2023 4:36P Dictated by : SHELIA SALEH MD This examination was interpreted and the report reviewed and electronically signed by: SHELIA SALEH MD on Sep 09 2023 4:41PM EST [facility] Radiology Study observation (narrative) [facility] XR Lumbar spine 3 Viewson * [...] MORE PAIN IN HER LEFT HIP (accession [id number]), DEGENERATIVE DISC DISEASE OF LUMBAR (accession [id number]) CLINICAL INFORMATION ( PROVIDED BY ORDERING CLINICIAN) [...] Mild degenerative change at the pubic symphysis. [facility] Provider, [facility] - 09/09/2023 * * *Final Report* [...] MORE PAIN IN HER LEFT HIP (accession [id number]), DEGENERATIVE DISC DISEASE OF LUMBAR (accession [id number]) CLINICAL INFORMATION ( PROVIDED BY ORDERING CLINICIAN) [...] described. Hip joint spaces are maintained bilaterally. [employer] Operator: PSCB Transcribe Date/Time: Sep 09 2023 4:36P Dictated by : SHELIA SALEH MD This examination was interpreted and the report reviewed and electronically signed by: SHELIA SALEH MD on Sep 09 2023 4:41PM EST [facility] Radiology Study observation (narrative) [facility] Basophil percentageOrdered B y: Bello [place]en[place] on 08-11-2023 Bilirubin [Mass/Vol] 1.10 mg/dL 0.20-1.00 [facility] Comment on above: For patients on eltr ombopag therapy, use of Dimension [place] TBIL is not recommended. Chloride [Moles/Vol] 105 mmol/L 98-107 [facility] Glucose [Mass/Vol] 83 mg/dL 74-106 [facility] Hemoglobin (Bld) [Mass/Vol] 14.1 g/dL 12.0-15.0 [facility] Potassium [Moles/Vol] 3.7 mmol/L 3.5-5.1 [facility] Protein [Mass/Vol] 7.7 g/dL 6.4-8.2 [facility] Sodium [Moles/Vol] 138 mmol/L 136-145 [facility] WBC (Bld) [#/Vol] 6.4 10*3/uL 4.4-11.0 [facility] Culture, urineOrdered By: Johnathan [place]enport on 08-11-2023 Bacteria identified Cx Nom (U) Presumptive E. coli [facility] Determination of erythrocyte mean corpuscular volume (MCV)Ordered By: Bello [place]en[place] on 08-11-2023 MCV (RBC) [Entitic vol] 84.4 fL 81-99 [facility] Erythrocyte distribution wid th ratioOrdered By: Bello [place] on 08-11-2023 Erythrocyte distribution width (RBC) [Ratio] 13.1 % 11.6-14.6 [facility] Erythrocyte distribution wid th standard deviationOrdered By: [facility] Erythrocyte distribution width (RBC) [Entitic vol] 39.9 fL 35.1-43.9 [facility] Hematocrit Auto (Bld) [Volum e fraction]Ordered By: [facility] 08-11-2023 Hematocrit (Bld) [Volume fraction] 41.7 % 37-47 [facility] Laboratory - Chemistry and C hemistry - challengeOrdered By: [facility] on 08-11-2023 Albumin/Globulin [Mass ratio] 1.1 {ratio} 0.9-2.4 [facility] ALP [Catalytic activity/Vol] 54 U/L 45-117 [facility] ALT [Catalytic activity/Vol] 27 U/L 13-56 [facility] CO2 [Moles/Vol] 25.0 mmol/L 21.0-32.0 [facility] Globulin (S) [Mass/Vol] 3.6 g/dL 2.2-4.2 [facility] Urea nitrogen/Creatinine [Mass ratio] 18.4 mg/mg 10-20 [facility] Laboratory - Hematology and Cell countsOrdered By: [facility] Issac 08-11-2023 MCH (RBC) [Entitic mass] 28.5 pg 27.0-32.0 [facility] MCHC (RBC) [Mass/Vol] 33.8 g/dL 32-36 [facility] Platelet mean volume (Bld) [Entitic vol] 10.6 fL 6.2-12.0 [facility] Platelets (Bld) [#/Vol] 280 10*3/uL 150-450 [facility] No Panel InformationOrdered By: Bello [place] on 08-11-2023 Estimated GFR (MDRD) Amer 78 mL/min >60 [facility] Comment on above: GFR Calc Estimated GFR (MDRD) Non-Af Amer 65 mL/min >60 [facility] Comment on above: Non- GFR Calc Hepatitis C Antibody Non-Reactive Nonreactive [facility] Comment on above: Non Reactive: < 0.8 Equivocal: >/= 0.8 to < 1.0 Reactive: >/= 1.0The CDC requires that a reactive/equivocal HCV antibody result be sent out for confirmation. HCV Quant by PCR testing. Vitamin D 25-Hydroxy 31.1 ng/mL [facility] Comment on above: Vitamin D 25(OH) Sta tus Range Deficiency <20 ng/mL (50nmol/L) Insufficiency 20 - 30 ng/mL (50 - 75 nmol/L) Sufficiency 30 - 100 ng/mL (75 - 250 nmol/L) Toxicity >100 ng/mL (>250 nmol/L) RBC Auto (Bld) [#/Vol]Ordere d By: Bello [place] on 08-11-2023 RBC (Bld) [#/Vol] 4.94 10*6/uL 4.2-5.4 [facility] Serum or plasma calcium bianca urement (mass/volume)Ordered By: Bello [place]enport 08-11-2023 Calcium [Mass/Vol] 9.6 mg/dL 8.5-10.1 [facility] Serum or plasma creatinine m easurement (mass/volume)Ordered By: Bello [place]enport 08-11-2023 Creatinine [Mass/Vol] 0.92 mg/dL 0.55-1.02 [facility] Comment on above: The validity of the calculated GFR & GFRAA in patients over 70 years has not been determined. Clinical correlation is essential. Serum or plasma thyroid stim ulating hormone (TSH) measurement (units/volume)Ordered By: Bello [place]enport 08-11-2023 TSH Qn 0.49 uIU/mL 0.358-3.74 [facility] Serum or plasma urea nitroge n measurement (mass/volume)Ordered By: Bello [place]en[place] 08-11-2023 Urea nitrogen [Mass/Vol] 17 mg/dL 7-18 [facility] Thin prep Papanicolaou smear with manual screeningOrdered By: Bello [place]enport 08-11-2023 Thin prep Papanicolaou smear with manual screening 4.1 g/dL 3.2-5.0 [facility] Thin prep Papanicolaou smear with manual screening 28 U/L 15-37 [facility] Thin prep Papanicolaou smear with manual screening 8 5-15 [facility] Joe 07-28-2023 CNPN Telephone (AGHOMERMPLE) -- TIFFANIE RAMSEY ([id number]) 1960 F Date Time Provider Department 07/28/23 JEREMY RAMIREZ During your visit today, we recorded the following information about you: Glendy Motta MA 07/28/2023 1:21 PM Signed ----- Message from Jeremy Ramirez APRN.ROADSIDE MECHANIC sent at 07/28/2023 12:21 PM EST ----- [...] Date Reviewed: 07/22/2023 Reviewed by: Angel Catherine APRN.ROADSIDE MECHANIC - Fully Assessed Reason for Visit: Results [...] Encounter Status:Closed by GLENDY MOTTA on 07/28/23 [facility] BD DXA - AXIAL SKELETONon BD DXA [...] years, Gender: Female SCANNER INFORMATION: DXA Model: [facility] modulR+[id number] Date Scanned: 07/27/2023 10:18 AM CLINICAL HISTORY: [...] had a previous bone density in the [facility] or the previous bone density was performed on a different DXA machine (new, updated model or different location) within the [facility]. VERTEBRAL FRACTURE ASSESSMENT Not performed. TRABECULAR BONE [...] FOR MORE INFORMATION ABOUT DIAGNOSIS AND TREATMENT: [facility] for Osteoporosis and Metabolic Bone Disease:? www.ccf.org/arthritis/oste o National Osteoporosis Foundation:? www.nof.org International Society of Clinical Densitometry www.iscd.org [employer] Operator: SAUNDRA Transcribe Date/Time: Jul 28 2023 9:50A Dictated by : LEOLA BABB MD This examination was interpreted and the report reviewed and electronically signed by: LEOLA BABB MD on Jul 28 2023 9:51AM EST [id number] Normal [facility] STREP A MOLECULAR (POC)on Procedural Control Valid [facility] Strep A (POCT) Negative Negative [facility] US Thyroid glandon [facility] DIGITAL MAMM SCREENING W/ TO Rosa 12-24-2022 DIGITAL MAMM SCREENING W/ BEBA Patient Name: TIFFANIE RAMSEY STUDY: DIGITAL MAMM SCREENING W/ BEBA; 12/24/2022 2:29 pm ACCESSION NUMBER(S): [id number] ORDERING CLINICIAN: NATHALIA LOU INDICATION: Screening. COMPARISON: 12/12/2021 and 12/31/2020. FINDINGS: 2D and tomosynthesis images were reviewed at 1 mm slice thickness. Density: There are areas of scattered fibroglandular tissue. No suspicious masses or calcifications are identified. IMPRESSION: No mammographic evidence of malignancy. BI-RADS CATEGORY: Category: 1 - Negative. Recommendation: 1 Year Screening. For any future breast imaging appointments, please call [phone]). Patient letter sent SNORM MACRO: None Electronically signed by: GEOFF LAFLEUR MD Normal [facility] - Screening Mammogram w / Tomosynthesison 12-24-2022 MG Breast Screening Normal MG-AUTHORIZATION NURSE-We ravi 2420 DO Work Phone: SERVICE DELIVERY CONSULTANT - Office Visiton 11-29 SERVICE DELIVERY CONSULTANT - Office Visit Diagnoses/Problems Assessed Well female exam with routine gynecological exam (V72.31) (Z01.419) Orders Mamm - Screening Mammogram w/ Tomosynthesis; Status:Hold For - Scheduling; Requested for:[id number]; Radiologist to Determine Optimal Study : Y [...] PAP: 12/12/2020- WNL -HPV LAST MAMM: 12/12/2021 NURSE PRACTITIONER HOSPITALIST: Preet Young MA II History of Present [id number] female presenting for annual visit. Just tired. Just moved to [place]. using vaginal estrogen once a week. Diet: [...] TSH Qn 1.40 m[IU]/L See Below MP-WSPC-N [address] Work Phone: Comment on above: Reference Range: 0.4 4 - 3.98 TSH testing is performed using different testing methodology at [facility] than at other [facility]. Direct result comparisons should only be made within the same method. TSH WITH REFLEX TO FREE T4 I F ABNORMALon 07-23-2022 TSH Qn 1.40 m[IU]/L Normal 0.44 - 3.98 [facility] Comment on above: Result Comment: TSH testing is performed using different testing methodology at [facility] than at other [facility]. Direct result comparisons should only be made within the same method. Performed By: #### T HYD #### [address] [id number] No Panel Informationon 12-22 FINAL REPORT Interpreted by: CARLITO CHICAS JOSEPH, MD 12/23/21 15:37 Patient Name: TIFFANIE RAMSEY STUDY: US PELVIS TRANSABDOMINAL WITH TRANSVAGINAL; 12/22/2021 3:41 pm INDICATION: llq R10.32: Abdominal pain, LLQ (left lower qu Normal MG-OBGYN-MA C [address] [place] Work Phone: Mamm - Screening Mammogram w / Tomosynthesison 12-12-2021 MG Breast Screening Normal MG-AUTHORIZATION NURSE-We stlake 2420 DO Work Phone: Cult, Urineon [...] [Mass/Vol] 4.7 g/dL 3.4 - 5.0 MP-[facility]-N [address] Work Phone: ALP [Catalytic activity/Vol] 47 U/L 33 - 136 MP-[facility]-N [address] Work Phone: ALT With P-5'-P [Catalytic activity/Vol] 22 U/L 7 - 45 MP-[facility]-N [address] Work Phone: Comment on above: Patients treated wit h Sulfasalazine may generate falsely decreased results for ALT. Anion gap [Moles/Vol] 13 mmol/L 10 - 20 MP- WSPC-N [address] Work Phone: AST With P-5'-P [Catalytic activity/Vol] 19 U/L 9 - 39 -PC-N [address] Work Phone: Bilirubin [Mass/Vol] 0.9 mg/dL 0.0 - 1.2 -W SPC-[facility] 2099 Work Phone: Calcium [Mass/Vol] 10.2 mg/dL 8.6 - 10.6 -P C-[facility] 2099 Work Phone: Chloride [Moles/Vol] 106 mmol/L 98 - 107 -W SPC-[facility] 2099 Work Phone: CO2 [Moles/Vol] 26 mmol/L 21 - 32 -[facility] 2099 Work Phone: Creatinine [Mass/Vol] 0.80 mg/dL See Below [facility] 2099 Work Phone: Comment on above: Reference Range: 0.5 0 - 1.05 Glucose [Mass/Vol] 87 mg/dL 74 - 99 -[facility] 2099 Work Phone: Potassium [Moles/Vol] 4.7 mmol/L 3.5 - 5.3 - [facility] 2099 Work Phone: Protein [Mass/Vol] 7.6 g/dL 6.4 - 8.2 -[facility] 2099 Work Phone: Sodium [Moles/Vol] 140 mmol/L 136 - 145 [facility] Work Phone: Urea nitrogen [Mass/Vol] 18 mg/dL 6 - 23 -[facility] 2099 Work Phone: Laboratory - Hematology and Cell countson 11-07-2021 Erythrocyte distribution width (RBC) [Ratio] 14.0 % See Below [facility]-N [address] Work Phone: Comment on above: Reference Range: 11. 5 - 14.5 Hematocrit (Bld) [Volume fraction] 43.0 % See Below -WS-N [address] Inveni Work Phone: Comment on above: Reference Range: 36. 0 - 46.0 Hemoglobin (Bld) [Mass/Vol] 14.0 g/dL See Below [facility]-N [address] Work Phone: Comment on above: Reference Range: 12. 0 - 16.0 MCHC (RBC) [Mass/Vol] 32.6 g/dL See Below - [facility]-N [address] Work Phone: Comment on above: Reference Range: 32. 0 - 36.0 MCV (RBC) [Entitic vol] 87 fL 80 - 100 -WS-N [address] Work Phone: Platelets (Bld) [#/Vol] 293 10*3/uL 150 - 450 [facility]-N [address] Work Phone: RBC (Bld) [#/Vol] 4.93 {x10E12/L} See Below -WS-N [address] Work Phone: Comment on above: Reference Range: 4.0 0 - 5.20 WBC (Bld) [#/Vol] 6.8 10*3/uL 4.4 - 11.3 -[facility] C-N [address] Work Phone: Lipid Panelon 11-07-2021 Cholesterol [Mass/Vol] 272 mg/dL above high threshold 0 - 199 -[facility]-N [address] Work Phone: Comment on above: . [...] dosing. Cholesterol in HDL [Mass/Vol] 68.8 mg/dL [employer] Work Phone: [phone] Comment on above: . AGE VERY LOW LOW N ORMAL HIGH 0-19 Y < 35 < 40 40-45 ---- 20- 24 Y ---- < 40 >45 ---- >24 Y ---- < 40 40-60 >60. Cholesterol in LDL [Mass/Vol] 181 mg/dL above high threshold 0 - 99 [employer] Work Phone: [phone] Comment on above: . NEAR BORD AGE CONCEPCIÓN RABLE OPTIMAL HIGH HIGH VERY HIGH 0-19 Y 0 - 109 --- 110-129 >/= 130 ---- 20-24 Y 0 - 119 --- 120-159 >/= 160 ---- >24 Y 0 - 99 100-129 130-159 160-189 >/=190. Cholesterol.total/Cho lesterol in HDL [Mass ratio] 4.0 {ratio} [employer] Work Phone: [phone] Comment on above: REF VALUESDESIRABLE < 3.4HIGH RISK > 5.0 Triglyceride [Mass/Vol] 110 mg/dL 0 - 149 [employer] Work Phone: Comment on above: . AGE [...] Lipid Panel 22 mg/dL 0 - 40 [employer] Work Phone: No Panel Informationon 11-07 0.0 {/100_WBC} 0.0-0.0 MP-[facility]-N [address] Work Phone: 83 {mL/min/1.73m2} >90 MP-WSP C-N [place] [address] Work Phone: Comment on above: CALCULATIONS OF SOPHIE MATED GFR ARE PERFORMED USING THE 2020 CKD-EPI STUDY REFIT EQUATION WITHOUT THE RACE VARIABLE FOR THE IDMS-TRACEABLE CREATININE METHODS.https://jasn.asnjournals.org/content/early// N.1012387213 Vitamin B12, Serumon Cobalamin (Vitamin B12) [Mass/Vol] 638 pg/mL 211 - 911 rVitaWSlittleBits ElectronicsC[facility] Inveni Work Phone: Vitamin D 25-Hydroxyon 11-07 25-hydroxyvitamin D3 [Mass/Vol] 33 ng/mL littleBits ElectronicsSAINT ELIZABETH'S MEDICAL CENTERlittleBits ElectronicsC[facility] Inveni Work Phone: Comment on above: .DEFICIENCY: < 20 NG /MLINSUFFICIENCY: 20-29 NG/MLSUFFICIENCY: 30-100 NG/MLTHIS ASSAY ACCURATELY QUANTIFIES THE SUM OFVITAMIN D3, 25-HYDROXY AND VIT D2,25-HYDROXY. Tobacco Screening.on Fall risk assessment a) No falls within the last year [facility]-N [place] [address] Work Phone: Tobacco use status CPHS b) No MP-[facility]-N [place] [address] Work Phone: Tobacco Screening.on Fall risk assessment a) No falls within the last year MP-[place] Work Phone: Tobacco use status CPHS b) No MP-[place] Work Phone: Tobacco Screening.on Adult depression screening assessment No MP-[facility]-N [place] [address] Work Phone: Fall risk assessment a) No falls within the last year [facility]-N [place] [address] Work Phone: Tobacco use status CPHS b) No MP-[facility]-N [address] [address] Work Phone: IO UA (automated w/o microsc opy)on 03-03-2021 Protein (U) [Mass/Vol] Negative MG-Orthopae dics-[place] Work Phone: [phone] IO UA (automated w/o microscopy) (+)small - 15 MG-Orthopae dics-[place] Work Phone: IO UA (automated w/o microscopy) Negative MG-Orthopae dics-[address] Work Phone: IO UA (automated w/o microscopy) Normal (0.2-1.0 mg/dl) MG-Orthop ae dics-[address] Work Phone: [phone] IO UA (automated w/o microscopy) 7.0 1 [facility]-Orthopae dics-[address] Work Phone: [phone] IO UA (automated w/o microscopy) 1.015 1 [facility]-Orthopae dics-[address] Work Phone: IO UA (automated w/o microscopy) Clear MG-Orthopae dics-[address] Work Phone: [phone] IO UA (automated w/o microscopy) Yellow MG-Orthopae dics-[address] Work Phone: [phone] IO Ultrasound, measurement p ost-void resid urine and/or bl cap; no imagon 03-03-2021 IO Ultrasound, measurement post-void resid urine and/or bl cap; no imag 0 mL MG-Orthopae dics-[address] Work Phone: [phone] Tobacco Screening.on 021 Fall risk assessment a) No falls within the last year MG-Orthopae dics-[address] Work Phone: [phone] Tobacco use status CPHS b) No MG-Orthopae dics-[address] Work Phone: [phone] Radiologyon 01-07-2021 US Abdomen Normal MG-Orthopae dics-[place] Work Phone: [phone] XR Abdomen AP left lateral-decubitus Normal MG-Orthopae dics-[place] [address] Work Phone: Complete Blood Count + Kal burrell 01-02-2021 Basophils/100 WBC (Bld) 1.2 % 0.0 - 2.0 MG-Orthopae dics-[place] [address] Work Phone: [phone] Erythrocyte distribution width (RBC) [Ratio] 13.2 % See Below MG-Orthopae dics-[place] Work Phone: [phone] Comment on above: Reference Range: 11. 5 - 14.5 Hematocrit (Bld) [Volume fraction] 43.4 % See Below MG-Orthopae dics-[place] [address] Work Phone: [phone] Comment on above: Reference Range: 36. 0 - 46.0 Hemoglobin (Bld) [Mass/Vol] 14.1 g/dL See Below MG-Orthopae dics-[place] [address] Work Phone: [phone] Comment on above: Reference Range: 12. 0 - 16.0 Lymphocytes/100 WBC (Bld) 24.9 % See Below MG-Orthopae dics-[place] [address] Work Phone: [phone] Comment on above: Reference Range: 13. 0 - 44.0 MCHC (RBC) [Mass/Vol] 32.5 g/dL See Below MG- Orthopae dics-[place] [address] Work Phone: [phone] Comment on above: Reference Range: 32. 0 - 36.0 MCV (RBC) [Entitic vol] 87 fL 80 - 100 MG-Orthopae dics-[place] [address] Work Phone: [phone] Monocytes/100 WBC (Bld) 7.1 % 2.0 - 10.0 MG-Orthopae dics-[place] [address] Work Phone: [phone] Neutrophils/100 WBC (Bld) 63.4 % See Below MG-Orthopae dics-[place] [address] Work Phone: [phone] Comment on above: Reference Range: 40. 0 - 80.0 Platelets (Bld) [#/Vol] 256 10*3/uL 150 - 450 MG-Orthopae dics-[place] [address] Work Phone: [phone] RBC (Bld) [#/Vol] 5.01 {x10E12/L} See Below MG -Orthopae dics-[place] [address] Work Phone: Comment on above: Reference Range: 4.0 0 - 5.20 WBC (Bld) [#/Vol] 5.1 10*3/uL 4.4 - 11.3 MG-Ort hopae dics-[place] [address] Work Phone: Complete Blood Count + Differential 0.06 {x10E9/L} See Below MG-Orthopae dics-[place] [address] Work Phone: Comment on above: Reference Range: 0.0 0 - 0.10 Complete Blood Count + Differential 0.15 {x10E9/L} See Below MG-Orthopae dics-[place] [address] Work Phone: Comment on above: Reference Range: 0.0 0 - 0.70 Complete Blood Count + Differential 0.36 {x10E9/L} See Below MG-Orthopae dics-[place] [address] Work Phone: Comment on above: Reference Range: 0.1 0 - 1.00 Complete Blood Count + Differential 1.26 {x10E9/L} See Below MG-Orthopae dics-[place] [address] Work Phone: [phone] Comment on above: Reference Range: 1.2 0 - 4.80 Complete Blood Count + Differential 3.21 {x10E9/L} See Below MG-Orthopae dics-[place] [address] Work Phone: Comment on above: Reference Range: 1.2 0 - 7.70 Complete Blood Count + Differential 3.0 % 0.0 - 6.0 MG-Orthopae dics-[place] [address] Work Phone: Complete Blood Count + Differential 0.4 % 0.0 - 0.9 MG-Orthopae dics-[place] [address] Work Phone: Comment on above: Immature Granulocyte Count (IG) includes promyelocytes, myelocytes and metamyelocytes but does not include bands. Percent differential counts (%) should be interpreted in the context of the absolute cell counts (cells/L). Complete Blood Count + Differential 0.0 {/100_WBC} 0.0 - 0.0 [facility] 210 Work Phone: [phone] Laboratory - Chemistry and C hemistry - challengeon 01-02-2021 Albumin BCP dye [Mass/Vol] 4.4 g/dL 3.4 - 5.0 [facility] Work Phone: [phone] ALP [Catalytic activity/Vol] 46 U/L 33 - 136 [facility] Work Phone: [phone] ALT With P-5'-P [Catalytic activity/Vol] 11 U/L 7 - 45 [facility] Work Phone: [phone] Comment on above: Patients treated wit h Sulfasalazine may generate falsely decreased results for ALT. Anion gap [Moles/Vol] 9 mmol/L below low threshold 10 - 20 [facility] Work Phone: [phone] AST With P-5'-P [Catalytic activity/Vol] 16 U/L 9 - 39 [facility] Work Phone: [phone] Bilirubin [Mass/Vol] 0.8 mg/dL 0.0 - 1.2 [facility] 210 Work Phone: [phone] Calcium [Mass/Vol] 9.5 mg/dL 8.6 - 10.3 [facility] 210 Work Phone: [phone] Chloride [Moles/Vol] 105 mmol/L 98 - 107 [facility] 210 Work Phone: [phone] CO2 [Moles/Vol] 28 mmol/L 21 - 32 [facility] 210 Work Phone: [phone] Creatinine [Mass/Vol] 0.70 mg/dL See Below [facility] Work Phone: [phone] Comment on above: Reference Range: 0.5 0 - 1.05 Glucose [Mass/Vol] 92 mg/dL 74 - 99 [facility] 210 Work Phone: Potassium [Moles/Vol] 4.0 mmol/L 3.5 - 5.3 [...] is performed using different testing methodology at [facility] than at other [facility] hospitals. Direct result comparisons should only be made within the same method. Vitamin D 25-Hydroxyon 01-02 25-hydroxyvitamin D3 [Mass/Vol] 26 ng/mL Abnormal [facility] Work Phone: Comment on above: .DEFICIENCY: < 20 NG /MLINSUFFICIENCY: 20-29 NG/MLSUFFICIENCY: 30-100 NG/MLTHIS ASSAY ACCURATELY QUANTIFIES THE SUM OFVITAMIN D3, 25-HYDROXY AND VIT D2,25-HYDROXY. Mamm - Screening Mammogram w / Tomosynthesison 12-31-2020 MG Breast Screening Normal MG-AUTHORIZATION NURSE-We [place] 2419 DO Work Phone: Cult, Urineon 12-12-2020 Bacteria identified Cx Nom (U) PATIENT: TIFFANIE GOMEZ LOCATION: C0541 BILL#: [id number] : 56 AGE: SEX: F ORDERED BY: MADDIE GAMING SOURCE: URINE Abnormal [facility]GYN[facility] [place] 2419 DO Work Phone: IO UA (automated w/o microsc opy)on 12-12-2020 Protein (U) [Mass/Vol] Trace [facility] C 1200 [place] Work Phone: IO UA (automated w/o microscopy) (+++)large - 80 [facility] 1200 [place] Work Phone: IO UA (automated w/o microscopy) Negative [facility] C 1200 [place] Work Phone: IO UA (automated w/o microscopy) Normal [facility] C 1200 [place] Work Phone: IO UA (automated w/o microscopy) 7.0 1 [facility] C 1200 [place] Work Phone: IO UA (automated w/o microscopy) 1.010 1 [facility] C 1200 [place] Work Phone: [phone] IO UA (automated w/o microscopy) Clear [facility]-OB[facility]N-[facility] C 1200 [place] Work Phone: IO UA (automated w/o microscopy) Yellow [facility]-OBGYN-[facility] C 1200 [place] Work Phone: [phone] Laboratory - Cytologyon 11-28 Cytology report Cyto stain.thin prep Doc (Cvx/Vag) MG-OBGYN-[facility] [place] 0 DO Work Phone: Hematologyon 05-15-2020 Hematocrit (Bld) [Volume fraction] 44.2 % See Below [facility] [place] [facility] Work Phone: Comment on above: Reference Range: 36. 0 - 46.0 Hemoglobin (Bld) [Mass/Vol] 14.0 g/dL See Below [facility] [place] 2099 Work Phone: Comment on above: Reference Range: 12. 0 - 16.0 MCV (RBC) [Entitic vol] 91 fL 80 - 100 [facility] [place] 2099 Work Phone: Platelets (Bld) [#/Vol] 278 {x10E9/L} 150 - 450 [facility] [place] 2099 Work Phone: RBC (Bld) [#/Vol] 4.88 {x10E12/L} See Below [facility] [place] 2099 Work Phone: Comment on above: Reference Range: 4.0 0 - 5.20 WBC (Bld) [#/Vol] 4.8 {x10E9/L} 4.4 - 11.3 [facility] [place] Work Phone: Lipid Panelon 05-15-2020 Cholesterol [Mass/Vol] 246 mg/dL above high threshold 0 - [address] [facility] Inveni Work Phone: Comment on above: . AGE [...] dosing. Cholesterol in HDL [Mass/Vol] 70.0 mg/dL [facility] In[facility] Work Phone: Comment on above: . AGE VERY LOW LOW N ORMAL HIGH 0-19 Y < 35 < 40 40-45 ---- 20- 24 Y ---- < 40 >45 ---- >24 Y ---- < 40 40-60 >60. Cholesterol in LDL [Mass/Vol] 157 mg/dL above high threshold 0 - 99 [email or web address] Work Phone: Comment on above: . NEAR BORD AGE CONCEPCIÓN RABLE OPTIMAL HIGH HIGH VERY HIGH 0-19 Y 0 - 109 --- 110-129 >/= 130 ---- 20-24 Y 0 - 119 --- 120-159 >/= 160 ---- >24 Y 0 - 99 100-129 130-159 160-189 >/=190. Cholesterol.total/Cho lesterol in HDL [Mass ratio] 3.5 {ratio} [employer] Work Phone: Comment on above: REF VALUESDESIRABLE < 3.4HIGH RISK > 5.0 Triglyceride [Mass/Vol] 95 mg/dL 0 - 149 [employer] Work Phone: Comment on above: . AGE [...] Lipid Panel 19 mg/dL 0 - 40 [employer] 2099 Work Phone: Metabolic Panelon 05-15-2020 ALP [Catalytic activity/Vol] 50 U/L 33 - 136 [employer] 2099 Work Phone: Anion gap [Moles/Vol] 10 mmol/L 10 - 20 [employer] Work Phone: Bilirubin [Mass/Vol] 1.1 mg/dL 0.0 - 1.2 -[facility] 2099 Work Phone: Calcium [Mass/Vol] 9.9 mg/dL 8.6 - 10.3 -[facility] 2099 Work Phone: Chloride [Moles/Vol] 104 mmol/L 98 - 107 -[facility] 2099 Work Phone: CO2 [Moles/Vol] 31 mmol/L 21 - [address] [facility] 2099 Work Phone: Creatinine [Mass/Vol] 0.71 mg/dL See Below [facility] 2099 Work Phone: Comment on above: Reference Range: 0.5 0 - 1.05 Glucose [Mass/Vol] 92 mg/dL 74 - 99 [facility] 2099 Work Phone: Potassium [Moles/Vol] 3.9 mmol/L 3.5 - 5.3 [facility] 2099 Work Phone: Protein [Mass/Vol] 7.3 g/dL 6.4 - 8.2 [facility] 2099 Work Phone: Sodium [Moles/Vol] 141 mmol/L 136 - 145 [facility] 2099 Work Phone: Urea nitrogen [Mass/Vol] 11 mg/dL 6 - [address] [facility] 2099 Work Phone: Otheron 05-15-2020 Albumin BCP dye [Mass/Vol] 4.3 g/dL 3.4 - 5.[address] [facility] 2099 Work Phone: ALT With P-5'-P [Catalytic activity/Vol] 14 U/L 7 - [address] [facility] 2099 Work Phone: Comment on above: Patients treated wit h Sulfasalazine may generate falsely decreased results for ALT. AST With P-5'-P [Catalytic activity/Vol] 20 U/L 9 - 39 [facility] [place] [facility] Work Phone: Erythrocyte distribution width (RBC) [Ratio] 13.3 % See Below -[facility] [place] [facility] Work Phone: Comment on above: Reference Range: 11. 5 - 14.5 MCHC (RBC) [Mass/Vol] 31.7 g/dL below low threshold See Below [facility] [place] [facility] Work Phone: Comment on above: Reference Range: 32. 0 - 36.0 >60 >60 [facility] [place] [facility] Work Phone: Comment on above: CALCULATIONS OF SOPHIE MATED GFR ARE PERFORMED USING THE MDRD STUDY EQUATION FOR THE IDMS-TRACEABLE CREATININE METHODS. CLIN CHEM 2007;53:766-72 CORONAVIRUS 2019 BY PCRon CORONAVIRUS 2019,PCR NOT DETECTED Normal Not Detected [facility] Comment on above: Result Comment: . [...] patient management decisions. Fact sheet for providers: https://www.fda.gov/media/426874/download Fact sheet for patients: https://www.fda.gov/media/629586/download This test has received FDA Emergency Use Authorization (EUA) and has been verified by [facility] ([facility]). This test is only authorized for the duration of time that circumstances exist to justify the authorization of the emergency use of in vitro diagnostic tests for the detection of SARS-CoV-2 virus and/or diagnosis of COVID-19 infection under section 564(b)(1) of the Act, 21 U.S.C. 360bbb-3(b)(1), unless the authorization is terminated or revoked sooner. [facility] is certified under CLIA-88 as qualified to perform high complexity testing. Testing is performed in the [facility] laboratories located at [address] [place] [address]. Performed By: #### C OV19 #### [facility] [address] [place] [address] CORONAVIRUS 2019 BY PCRon Lab Specimen Source Nasal, Nasopharyngeal Normal [facility] Comment on above: Performed By: #### C OV19 #### [facility] [address] [place] [address] Coronavirus 2019 RNA by PCR, Symptomaticon 04-23-2020 EMPLOYED IN HEALTHCARE Unknown [facility] [employer] 2100 Work Phone: FIRST COVID NASAL SWAB TEST? Unknown [facility] 2100 Work Phone: ICU? Unknown [facility] 2100 Work Phone: Patient was hospitalized because of this condition Unknown [facility] [place] 2100 Work Phone: status Unknown [facility] N [employer] 2100 Work Phone: RESIDENT IN CONGREGATE CARE SETTING? Unknown [facility] 2100 Work Phone: SYMPTOMATIC DEFINED BY CDC Unknown [facility] 2100 Work Phone: Coronavirus 2019 RNA by PCR, Symptomatic NOT DETECTED See Below [facility] [place] 2100 Work Phone: Comment on above: SOURCE: [...] make patient management decisions.Fact sheet for providers: https://www.fda.gov/media/682460/downloadFact sheet for patients: https://www.fda.gov/media/219172/downloadThis test has received FDA Emergency Use Authorization (EUA) and has been verified by [facility] ([facility]). This test is only authorized for the duration of time that circumstances exist to justify the authorization of the emergency use of in vitro diagnostic tests for the detection of SARS-CoV-2 virus and/or diagnosis of COVID-19 infection under section 564(b)(1) of the Act, 21 U.S.C. 360bbb-3(b)(1), unless the authorization is terminated or revoked sooner. [facility] is certified under CLIA-88 as qualified to perform high complexity testing. Testing is performed in the [facility] laboratories located at [address] [place] [address]. CORONAVIRUS 2019 BY PCRon EMPLOYED IN HEALTHCARE? Unknown Normal [facility] Comment on above: Performed By: #### C OV19 #### [address] [place] [address] FIRST COVID NASAL SWAB TEST? Unknown Normal [facility] Comment on above: Performed By: #### C OV19 #### [address] [place] [address] HOSPITALIZED (OR PLANNED TO BE ADMITTED)? Unknown Normal [facility] Comment on above: Performed By: #### C OV19 #### [address] [place] [address] ICU? Unknown Normal [facility] Comment on above: Performed By: #### C OV19 #### [address] [place] [address] ? Unknown Normal [facility] Comment on above: Performed By: #### C OV19 #### [place] [address] [facility] [place] [address] RESIDENT IN CONGREGATE CARE SETTING? Unknown Normal [facility] Comment on above: Performed By: #### C OV19 #### [facility] [address] [place] [address] SYMPTOMATIC DEFINED BY CDC? Unknown Normal [facility] Comment on above: Performed By: #### C OV19 #### [facility] [address] [place] [address] Mamm - Screening Mammogram w / Tomosynthesison 12-27-2019 MG Breast screening Interpreted by: WASHINGTON SANTOS12/28/19 12:17MRN: [id number] Name: TIFFANIE GOMEZ STUDY:DIGITAL MAMM SCREENING W/ [...] any future breast imaging appointments, please call [phone]). Patient letter sent SNORM Electronically signed by: ALLY SANTOS 12/28/19 12:17 Normal [facility] [place] 2099 Work Phone: Comment on above: ORDER REVISED TO A D IGITAL MAMM SCREENING W/ BEBA BY RADIOLOGIST; Original Order Number: [id number] IO UA (automated w/o microsc opy)on 12-14-2019 Protein (U) [Mass/Vol] Negative [facility] [place] 2100 Work Phone: IO UA (automated w/o microscopy) Yellow [facility] [place] 2100 Work Phone: IO UA (automated w/o microscopy) Clear [facility] [place] 2099 Work Phone: IO UA (automated w/o microscopy) Negative [facility] [place] 2100 Work Phone: IO UA (automated w/o microscopy) 1.015 [facility] [place] 2100 Work Phone: IO UA (automated w/o microscopy) 7.5 [facility] [place] 2100 Work Phone: IO UA (automated w/o microscopy) Normal (0.2-1.0 mg/dl) [facility] [place] 2100 Work Phone: T4 - Free Thyroxine, Serumon 12-04-2019 Free T4 [Mass/Vol] 1.30 ng/dL See Below -OBG [employer] 2420 DO Work Phone: Comment on above: Reference Range: 0.7 8 - 1.48 Thyroxine Free testing is performed using different testing methodology at [facility] than at other [facility]. Direct result comparisons should only be made within the same method. Ordering Provider: Hortencia RAMIREZ [id number] TSH - Thyroid Stimulating Ho rmone, Serumon 12-04-2019 TSH Qn 0.96 {mIU/L} See Below [employer] 2420 DO Work Phone: Comment on above: Reference Range: 0.4 4 - 3.98 TSH testing is performed using different testing methodology at [facility] than at other [facility]. Direct result comparisons should only be made within the same method. Ordering Provider: Hortencia RAMIREZ [id number] Triiodothyronine, Level (T3) on 12-04-2019 T3 [Mass/Vol] 113 ng/dL 60 - 200 [facility] [employer] 2420 DO Work Phone: Comment on above: Ordering Provider: Hortencia RAMIREZ [id number] DIGITAL MAMMO SCREENING W TO Rosa 08-30-2018 DIGITAL MAMMO SCREENING W BEBA STUDY: DIGITAL MAMMO SCREENING W BEBA; 08/30/2018 10:47 am ACCESSION NUMBER(S): [id number] ORDERING CLINICIAN: Nathalia Lou INDICATION: Screening. COMPARISON: [...] any future breast imaging appointments, please call [phone]). Patient letter sent SNORM Normal [facility] PATHOLOGY SPECIMENon 019 PATHOLOGY SPEC Normal [facility] Comment on above: Order Comment: Comme nt: HEPATIC FLEXURE POLYP Comment: TRANSVERSE POLYP Comment: SIGMOID POLYP Result Comment: Note : Specimens received on or after January: * Reports will be faxed to all physician's office. If you are a physician or have access to [employer]: * Pathology and Cytology reports are located in [employer] in the folder labeled Medical Record Forms. * Reports are also in the Physician Portal. * For assistance locating reports call: (LAB) [phone] Performed By: #### L PATH #### [facility] ([facility]) [address] [place] [address] Vital Signs Date Time Vital Sign Value Performing Clinician Facility 03-13-2025 13:04-0400 Body height 157.[address] Bello [place] MD Work Phone: [facility] 03-13-2025 13:04-0400 Body mass index (BMI) [Ratio] 24.7 kg/m2 Dr. Bello [place] MD Work Phone: [facility] 03-13-2025 13:04-0400 Body weight 61.[address] Bello [place] MD Work Phone: [facility] 03-13-2025 13:04-0400 Diastolic blood pressure 74 mm[Hg] Dr. Bello [place] MD Work Phone: [facility] 03-13-2025 13:04-0400 Heart rate 70 /min Dr. Bello [place] MD Work Phone: [facility] 03-13-2025 13:04-0400 Systolic blood pressure 106 mm[Hg] Dr. Bello [place] MD Work Phone: [facility] 03-08-2025 08:27-0400 Body mass index (BMI) [Ratio] 25.1 kg/m2 Dr. Bello [place] MD Work Phone: 9(179)235-903945 [place] [address] 03-08-2025 08:27-0400 Body weight 62.[address] Bello [place] MD Work Phone: 5(197)270-249708 [place] [address] 03-08-2025 07:16-0400 Body temperature 98.3 [degF] Dr. Bello [place] MD Work Phone: 1(289)757-497408 [place] [address] 03-08-2025 07:16-0400 Diastolic blood pressure 62 mm[Hg] Dr. Bello [place] MD Work Phone: 6(653)933-941008 [place] [address] 03-08-2025 07:16-0400 Heart rate 65 /min Dr. Bello [place] MD Work Phone: 2(034)645-663808 [place] [address] 03-08-2025 07:16-0400 Respiratory rate 12 /min Dr. Bello [place] MD Work Phone: 1(277)253-776308 [place] [address] 03-08-2025 07:16-0400 SaO2% (BldA) [Mass fraction] 97 % Dr. Bello [place] MD Work Phone: 3(259)729-682408 [place] [address] 03-08-2025 07:16-0400 Systolic blood pressure 99 mm[Hg] Dr. Bello [place] MD Work Phone: 0(260)337-391208 [place] [address] 03-08-2025 05:49-0400 Body height 157.[address] Bello [place] MD Work Phone: 0(336)725-927608 [place] [address] 03-08-2025 05:49-0400 Body mass index (BMI) [Ratio] 25.2 kg/m2 Dr. Bello [place] MD Work Phone: 4(839)594-925408 [place] [address] 03-08-2025 05:49-0400 Body weight 62.[address] Bello [place] MD Work Phone: 3(842)501-733208 [place] [address] 02-08-2025 09:41-0400 Body height 157.[address] Bello [place] MD Work Phone: 3(098)921-413808 [place] [address] 02-08-2025 09:41-0400 Body mass index (BMI) [Ratio] 25.1 kg/m2 Dr. Bello [place] MD Work Phone: [facility] 02-08-2025 09:41-0400 Body weight 62.[address] Bello [place] MD Work Phone: [facility] 01-16-2025 11:01-0400 Body height 159.3 cm Janina Kalka PA-C Work Phone: [facility] 01-16-2025 11:01-0400 Body mass index (BMI) [Ratio] 24.27 kg/m2 Janina Kalka PA-C Work Phone: [facility] 01-16-2025 11:01-0400 Body weight 61.6 kg Janina Kalka PA-C Work Phone: [facility] 01-16-2025 11:01-0400 Diastolic blood pressure 80 mm[Hg] Janina Kalka PA-C Work Phone: [facility] 01-16-2025 11:01-0400 Heart rate 72 /min Janina Kalka PA-C Work Phone: [facility] 01-16-2025 11:01-0400 Systolic blood pressure 118 mm[Hg] Janina Kalka PA-C Work Phone: [facility] 01-12-2025 11:20-0400 Body mass index (BMI) [Ratio] 24.8 kg/m2 Dr. Bello [place] MD Work Phone: [facility] 01-12-2025 11:20-0400 Body height 157.[address] Bello [place] MD Work Phone: [facility] 01-12-2025 11:20-0400 Body weight 61.[address] Bello [place] MD Work Phone: [facility] 01-12-2025 10:51-0400 Diastolic blood pressure 79 mm[Hg] Dr. Bello [place] MD Work Phone: [facility] 01-12-2025 10:51-0400 Heart rate 71 /min Dr. Bello [place] MD Work Phone: [facility] 01-12-2025 10:51-0400 SaO2% (BldA) [Mass fraction] 98 % Dr. Bello [place] MD Work Phone: [facility] 01-12-2025 10:51-0400 Systolic blood pressure 126 mm[Hg] Dr. Bello [place] MD Work Phone: [facility] 12-29-2024 09:38-0400 Body mass index (BMI) [Ratio] 24.43 kg/m2 Ashley Lynn MD Work Phone: [facility] 12-29-2024 09:38-0400 Body weight 62 kg Ashley Lynn MD Work Phone: [facility] 12-29-2024 09:38-0400 Diastolic blood pressure 79 mm[Hg] Ashley Lynn MD Work Phone: [facility] 12-29-2024 09:38-0400 Heart rate 71 /min Ashley Lynn MD Work Phone: [facility] 12-29-2024 09:38-0400 SaO2% (BldA) [Mass fraction] 98 % Ashley Lynn MD Work Phone: [facility] 12-29-2024 09:38-0400 Systolic blood pressure 126 mm[Hg] Ashley Lynn MD Work Phone: [facility] 12-28-2024 10:44-0400 Body mass index (BMI) [Ratio] 24.27 kg/m2 Anna Tabor MD Work Phone: [facility] 12-28-2024 10:44-0400 Body weight 61.6 kg Anna Tabor MD Work Phone: [facility] 12-28-2024 10:44-0400 Diastolic blood pressure 85 mm[Hg] Anna Tabor MD Work Phone: [facility] 12-28-2024 10:44-0400 Heart rate 82 /min Anna Tabor MD Work Phone: [facility] 12-28-2024 10:44-0400 Respiratory rate 16 /min Anna Tabor MD Work Phone: [facility] 12-28-2024 10:44-0400 Systolic blood pressure 124 mm[Hg] Anna Tabor MD Work Phone: [facility] 12-26-2024 09:08-0400 Body height 157.[address] Bello [place] MD Work Phone: [facility] 12-26-2024 09:08-0400 Body mass index (BMI) [Ratio] 24.9 kg/m2 Dr. Bello [place] MD Work Phone: [facility] 12-26-2024 09:08-0400 Body weight 61.[address] Bello [place] MD Work Phone: [facility] 12-26-2024 09:08-0400 Diastolic blood pressure 74 mm[Hg] Dr. Bello [place] MD Work Phone: [facility] 12-26-2024 09:08-0400 Systolic blood pressure 122 mm[Hg] Dr. Bello [place] MD Work Phone: [facility] 12-21-2024 11:17-0400 Body height 159.3 cm Pulm Wstr Work Phone: [facility] 12-21-2024 11:17-0400 Body mass index (BMI) [Ratio] 23.77 kg/m2 Pulm Wstr Work Phone: [facility] 12-21-2024 11:17-0400 Body weight 60.33 kg Pulm Wstr Work Phone: [facility] 12-21-2024 11:17-0400 Diastolic blood pressure 81 mm[Hg] Pulm Wstr Work Phone: [facility] 12-21-2024 11:17-0400 Heart rate 100 /min Pulm Wstr Work Phone: [facility] 12-21-2024 11:17-0400 Respiratory rate 16 /min Pulm Wstr Work Phone: [facility] 12-21-2024 11:17-0400 SaO2% (BldA) [Mass fraction] 98 % Pulm Wstr Work Phone: [facility] 12-21-2024 11:17-0400 Systolic blood pressure 133 mm[Hg] Pulm Wstr Work Phone: [facility] 11-30-2024 10:12-0400 Body height 160.4 cm Taqueria Vieira MD Work Phone: [facility] 11-30-2024 10:12-0400 Body mass index (BMI) [Ratio] 23.75 kg/m2 Taqueria Vieira MD Work Phone: [facility] 11-30-2024 10:12-0400 Body temperature 98.01 [degF] Taqueria Vieira MD Work Phone: [facility] 11-30-2024 10:12-0400 Body weight 61.1 kg Taqueria Vieira MD Work Phone: [facility] 11-30-2024 10:12-0400 Diastolic blood pressure 83 mm[Hg] Taqueria Vieira MD Work Phone: [facility] 11-30-2024 10:12-0400 Heart rate 86 /min Taqueria Vieira MD Work Phone: [facility] 11-30-2024 10:12-0400 SaO2% (BldA) [Mass fraction] 98 % Taqueria Vieira MD Work Phone: [facility] 11-30-2024 10:12-0400 Systolic blood pressure 120 mm[Hg] Taqueria Vieira MD Work Phone: [facility] 10-05-2024 10:39-0400 Body mass index (BMI) [Ratio] 24.1 kg/m2 Dr. Bello [place] MD Work Phone: [facility] 10-05-2024 10:39-0400 Body weight 59.[address] Bello [place] MD Work Phone: [facility] 10-05-2024 10:39-0400 Diastolic blood pressure 80 mm[Hg] Dr. Bello [place] MD Work Phone: [facility] 10-05-2024 10:39-0400 Heart rate 83 /min Dr. Bello [place] MD Work Phone: [facility] 10-05-2024 10:39-0400 SaO2% (BldA) [Mass fraction] 98 % Dr. Bello [place] MD Work Phone: [facility] 10-05-2024 10:39-0400 Systolic blood pressure 140 mm[Hg] Dr. Bello [place] MD Work Phone: [facility] 08-31-2024 10:11-0400 Body mass index (BMI) [Ratio] 24.7 kg/m2 Dr. Bello [place] MD Work Phone: [facility] 08-31-2024 10:11-0400 Body weight 61.[address] Bello [place] MD Work Phone: [facility] 11-13-2023 09:47-0400 Body mass index (BMI) [Ratio] 24.03 kg/m2 Leatha Torres APRN.ROADSIDE MECHANIC Work Phone: [facility] 11-13-2023 09:47-0400 Body temperature 97.81 [degF] Leatha Torres APRN.ROADSIDE MECHANIC Work Phone: [facility] 11-13-2023 09:47-0400 Body weight 59.6 kg Leatha Torres APRN.ROADSIDE MECHANIC Work Phone: [facility] 11-13-2023 09:47-0400 Diastolic blood pressure 79 mm[Hg] Leatha Torres APRN.ROADSIDE MECHANIC Work Phone: [facility] 11-13-2023 09:47-0400 Heart rate 64 /min Leatha Torres APRN.ROADSIDE MECHANIC Work Phone: [facility] 11-13-2023 09:47-0400 Respiratory rate 18 /min Leatha Torres APRN.ROADSIDE MECHANIC Work Phone: [facility] 11-13-2023 09:47-0400 SaO2% (BldA) [Mass fraction] 100 % Leatha Torres ENGINEERING AND OPERATIONS DIRECTOR.ROADSIDE MECHANIC Work Phone: [facility] 11-13-2023 09:47-0400 Systolic blood pressure 135 mm[Hg] Leatha Torres ENGINEERING AND OPERATIONS DIRECTOR.ROADSIDE MECHANIC Work Phone: [facility] 10-04-2023 15:18-0400 Body height 157.5 cm Nathalia Sroka ENGINEERING AND OPERATIONS DIRECTOR.ROADSIDE MECHANIC Work Phone: [facility] 10-04-2023 15:18-0400 Body mass index (BMI) [Ratio] 23.47 kg/m2 Nathalia Sroka ENGINEERING AND OPERATIONS DIRECTOR.ROADSIDE MECHANIC Work Phone: [facility] 10-04-2023 15:18-0400 Body temperature 98.49 [degF] Nathalia Sroka ENGINEERING AND OPERATIONS DIRECTOR.ROADSIDE MECHANIC Work Phone: [facility] 10-04-2023 15:18-0400 Body weight 58.2 kg Nathalia Sroka ENGINEERING AND OPERATIONS DIRECTOR.ROADSIDE MECHANIC Work Phone: [facility] 10-04-2023 15:18-0400 Diastolic blood pressure 83 mm[Hg] Nathalia Sroka ENGINEERING AND OPERATIONS DIRECTOR.ROADSIDE MECHANIC Work Phone: [facility] 10-04-2023 15:18-0400 Heart rate 79 /min Nathalia Sroka ENGINEERING AND OPERATIONS DIRECTOR.ROADSIDE MECHANIC Work Phone: [facility] 10-04-2023 15:18-0400 Respiratory rate 18 /min Nathalia Sroka ENGINEERING AND OPERATIONS DIRECTOR.ROADSIDE MECHANIC Work Phone: [facility] 10-04-2023 15:18-0400 SaO2% (BldA) [Mass fraction] 97 % Nathalia Sroka ENGINEERING AND OPERATIONS DIRECTOR.ROADSIDE MECHANIC Work Phone: [facility] 10-04-2023 15:18-0400 Systolic blood pressure 129 mm[Hg] Nathalia Sroka ENGINEERING AND OPERATIONS DIRECTOR.ROADSIDE MECHANIC Work Phone: [facility] 09-09-2023 10:54-0400 Body height 157.5 cm Mirella Sanchez PA-C Work Phone: [facility] 09-09-2023 10:54-0400 Body weight 58.1 kg Mirella Sanchez PA-C Work Phone: [facility] 07-22-2023 09:47-0500 Body temperature 97.5 [degF] Angel Schwanger ENGINEERING AND OPERATIONS DIRECTOR.ROADSIDE MECHANIC Work Phone: [facility] 07-22-2023 09:47-0500 Body weight 61.6 kg Angel Schwanger ENGINEERING AND OPERATIONS DIRECTOR.ROADSIDE MECHANIC Work Phone: [facility] 07-22-2023 09:47-0500 Diastolic blood pressure 94 mm[Hg] Angel Schwanger ENGINEERING AND OPERATIONS DIRECTOR.ROADSIDE MECHANIC Work Phone: [facility] 07-22-2023 09:47-0500 Heart rate 85 /min Angel Schwanger ENGINEERING AND OPERATIONS DIRECTOR.ROADSIDE MECHANIC Work Phone: [facility] 07-22-2023 09:47-0500 Respiratory rate 16 /min Angel Schwanger ENGINEERING AND OPERATIONS DIRECTOR.ROADSIDE MECHANIC Work Phone: [facility] 07-22-2023 09:47-0500 SaO2% (BldA) [Mass fraction] 97 % Angel Schwanger ENGINEERING AND OPERATIONS DIRECTOR.ROADSIDE MECHANIC Work Phone: [facility] 07-22-2023 09:47-0500 Systolic blood pressure 128 mm[Hg] Angel Schwanger ENGINEERING AND OPERATIONS DIRECTOR.ROADSIDE MECHANIC Work Phone: [facility] 07-15-2023 13:11-0500 Body height 157.5 cm Dominique Fisher MD Work Phone: [facility] 07-15-2023 13:11-0500 Body temperature 97.59 [degF] Dominique Fisher MD Work Phone: [facility] 07-15-2023 13:11-0500 Body weight 59.6 kg Dominique Fisher MD Work Phone: [facility] 07-15-2023 13:11-0500 Diastolic blood pressure 74 mm[Hg] Dominique Fisher MD Work Phone: [facility] 07-15-2023 13:11-0500 Heart rate 83 /min Dominique Fisher MD Work Phone: [facility] 07-15-2023 13:11-0500 SaO2% (BldA) [Mass fraction] 96 % Dominique Fisher MD Work Phone: [facility] 07-15-2023 13:11-0500 Systolic blood pressure 149 mm[Hg] Dominique Fisher MD Work Phone: [facility] 05-10-2023 10:26-0500 Body temperature 98.8 [degF] Madeline Hinojosa ENGINEERING AND OPERATIONS DIRECTOR.ROADSIDE MECHANIC Work Phone: [facility] 05-10-2023 10:26-0500 Body weight 60.33 kg Madeline Hinojosa ENGINEERING AND OPERATIONS DIRECTOR.ROADSIDE MECHANIC Work Phone: [facility] 05-10-2023 10:26-0500 Diastolic blood pressure 72 mm[Hg] Madeline Hinojosa ENGINEERING AND OPERATIONS DIRECTOR.ROADSIDE MECHANIC Work Phone: [facility] 05-10-2023 10:26-0500 Heart rate 82 /min Madeline Hinojosa ENGINEERING AND OPERATIONS DIRECTOR.ROADSIDE MECHANIC Work Phone: [facility] 05-10-2023 10:26-0500 Respiratory rate 16 /min Madeline Hinojosa ENGINEERING AND OPERATIONS DIRECTOR.ROADSIDE MECHANIC Work Phone: [facility] 05-10-2023 10:26-0500 SaO2% (BldA) [Mass fraction] 97 % Madeline Hinojosa ENGINEERING AND OPERATIONS DIRECTOR.ROADSIDE MECHANIC Work Phone: [facility] 05-10-2023 10:26-0500 Systolic blood pressure 128 mm[Hg] Madeline Hinojosa ENGINEERING AND OPERATIONS DIRECTOR.ROADSIDE MECHANIC Work Phone: [facility] 05-06-2023 10:11-0500 Body height 157.5 cm Jeremy Ramirez ENGINEERING AND OPERATIONS DIRECTOR.ROADSIDE MECHANIC Work Phone: [facility] 05-06-2023 10:11-0500 Body temperature 97.81 [degF] Jeremy Gómez ENGINEERING AND OPERATIONS DIRECTOR.ROADSIDE MECHANIC Work Phone: [facility] 05-06-2023 10:11-0500 Body weight 59.78 kg Jeremy Gómez ENGINEERING AND OPERATIONS DIRECTOR.ROADSIDE MECHANIC Work Phone: [facility] 05-06-2023 10:11-0500 Diastolic blood pressure 76 mm[Hg] Jeremy Gómez ENGINEERING AND OPERATIONS DIRECTOR.ROADSIDE MECHANIC Work Phone: [facility] 05-06-2023 10:11-0500 Heart rate 70 /min Jeremy Gómez ENGINEERING AND OPERATIONS DIRECTOR.ROADSIDE MECHANIC Work Phone: [facility] 05-06-2023 10:11-0500 Respiratory rate 18 /min Jeremy Gómez ENGINEERING AND OPERATIONS DIRECTOR.ROADSIDE MECHANIC Work Phone: [facility] 05-06-2023 10:11-0500 SaO2% (BldA) [Mass fraction] 98 % Jeremy Gómez ENGINEERING AND OPERATIONS DIRECTOR.ROADSIDE MECHANIC Work Phone: [facility] 05-06-2023 10:11-0500 Systolic blood pressure 122 mm[Hg] Jeremy Gómez ENGINEERING AND OPERATIONS DIRECTOR.ROADSIDE MECHANIC Work Phone: [facility] 12-17-2022 15:35-0400 Body height 157.48 cm Piero Ortiz Work Phone: ER-ZSDEZ-Aovgxufz 2420 DO Work Phone: 12-17-2022 15:35-0400 Body mass index (BMI) [Ratio] 23.23 kg/m2 Piero Ortiz Work Phone: DS-UQXUO-Cjueqlze 2420 DO Work Phone: 12-17-2022 15:35-0400 Body surface area Derived from formula 1.58 m2 Piero Ortiz Work Phone: ML-VAISJ-Htaptntu 2420 DO Work Phone: 12-17-2022 15:35-0400 Body weight 57.61 kg Piero Ortiz Work Phone: GC-LYDJI-Vwhinads 2420 DO Work Phone: 12-17-2022 15:35-0400 Diastolic blood pressure 62 mm[Hg] Piero Ortiz Work Phone: QG-OCFIG-Jnnpvnpo 2420 DO Work Phone: 12-17-2022 15:35-0400 Systolic blood pressure 112 mm[Hg] Piero Ortiz Work Phone: MK-SLLMI-Ujssnxdo 2420 DO Work Phone: 12-17-2022 15:35-0400 0 1 Piero Ortiz Work Phone: BL-WLEJQ-Qpvohgqe 2420 DO Work Phone: Comment on above: [facility] 05-29-2022 08:22-0500 Body temperature 97.59 [degF] Lissette Kolb APRN.ROADSIDE MECHANIC Work Phone: [facility] 05-29-2022 08:22-0500 Body weight 57.42 kg Lissette Kolb APRN.ROADSIDE MECHANIC Work Phone: [facility] 05-29-2022 08:22-0500 Diastolic blood pressure 82 mm[Hg] Lissette Kolb APRN.ROADSIDE MECHANIC Work Phone: [facility] 05-29-2022 08:22-0500 Heart rate 71 /min Lissette Kolb APRN.ROADSIDE MECHANIC Work Phone: [facility] 05-29-2022 08:22-0500 Respiratory rate 18 /min Lissette Kolb APRN.ROADSIDE MECHANIC Work Phone: [facility] 05-29-2022 08:22-0500 SaO2% (BldA) [Mass fraction] 100 % Lissette Kolb APRN.ROADSIDE MECHANIC Work Phone: [facility] 05-29-2022 08:22-0500 Systolic blood pressure 118 mm[Hg] Lissette Kolb APRN.CNP Work Phone: [facility] 03-02-2022 19:11-0400 Body temperature 100.09 [degF] Fred Her MD Work Phone: [facility] 03-02-2022 19:11-0400 Body weight 58.24 kg Fred Her MD Work Phone: [facility] 03-02-2022 19:11-0400 Diastolic blood pressure 80 mm[Hg] Fred Her MD Work Phone: [facility] 03-02-2022 19:11-0400 Heart rate 78 /min Fred Her MD Work Phone: [facility] 03-02-2022 19:11-0400 Respiratory rate 18 /min Fred Her MD Work Phone: [facility] 03-02-2022 19:11-0400 SaO2% (BldA) [Mass fraction] 98 % Fred Her MD Work Phone: [facility] 03-02-2022 19:11-0400 Systolic blood pressure 122 mm[Hg] Fred Her MD Work Phone: [facility] 12-11-2021 13:00-0400 Body height 157.48 cm Piero Ortiz Work Phone: TO-SBRHQ-Vitxzuov 2420 DO Work Phone: 12-11-2021 13:00-0400 Body mass index (BMI) [Ratio] 22.5 kg/m2 Piero Ortiz Work Phone: ZL-XJMMD-Lgonmiup 2420 DO Work Phone: 12-11-2021 13:00-0400 Body surface area Derived from formula 1.55 m2 Piero Ortiz Work Phone: AU-CEGYT-Goxtnucm 2420 DO Work Phone: 12-11-2021 13:00-0400 Body weight 55.79 kg Piero Ortiz Work Phone: BO-QHPBS-Gsxklqsl 2420 DO Work Phone: 12-11-2021 13:00-0400 Diastolic blood pressure 72 mm[Hg] Piero Ortiz Work Phone: PD-RYHSJ-Mqzujdul 2420 DO Work Phone: 12-11-2021 13:00-0400 Systolic blood pressure 118 mm[Hg] Piero Ortiz Work Phone: SN-FTTSY-Ugywdpob 2420 DO Work Phone: 12-11-2021 13:00-0400 0 1 Piero Ortiz Work Phone: JB-GJEAF-Krufooci 2420 DO Work Phone: Comment on above: [facility] 11-06-2021 14:57-0400 Body height 157.48 cm Piero Ortiz Work Phone: MP-WSPC-N [place] [address] Work Phone: 11-06-2021 14:57-0400 Body mass index (BMI) [Ratio] 22.68 kg/m2 Piero Ortiz Work Phone: MP-WSPC-[address] [place] [address] Work Phone: 11-06-2021 14:57-0400 Body surface area Derived from formula 1.56 m2 Piero Ortiz Work Phone: MP-WSPC-[address] [place] [address] Work Phone: 11-06-2021 14:57-0400 Body temperature 97.4 [degF] Piero Ortiz Work Phone: MP-WSPC-[address] [place] Work Phone: 11-06-2021 14:57-0400 Body weight 56.25 kg Piero Ortiz Work Phone: MP-WSPC-[address] [place] [address] Work Phone: 11-06-2021 14:57-0400 Diastolic blood pressure 80 mm[Hg] Piero Ortiz Work Phone: MP-WSPC-[address] [place] [address] Work Phone: 11-06-2021 14:57-0400 Heart rate 91 /min Piero Ortiz Work Phone: MP-WSPC-[address] [place] [address] Work Phone: 11-06-2021 14:57-0400 SaO2% (BldA) [Mass fraction] 98 % Piero Ortiz Work Phone: MP-WSPC-[address] [place] [address] Work Phone: 11-06-2021 14:57-0400 Systolic blood pressure 110 mm[Hg] Piero Ortiz Work Phone: MP-PrivcapPC-[address] [place] Work Phone: 09-08-2021 11:16-0400 Body temperature 98.71 [degF] Betzy Athy PA-C Work Phone: [facility] 09-08-2021 11:16-0400 Body weight 56.06 kg Betzy Athy PA-C Work Phone: [facility] 09-08-2021 11:16-0400 Diastolic blood pressure 86 mm[Hg] Betzy Athy PA-C Work Phone: [facility] 09-08-2021 11:16-0400 Heart rate 71 /min Betzy Athy PA-C Work Phone: [facility] 09-08-2021 11:16-0400 Respiratory rate 20 /min Betzy Athy PA-C Work Phone: [facility] 09-08-2021 11:16-0400 SaO2% (BldA) [Mass fraction] 99 % Betzy Athy PA-C Work Phone: [facility] 09-08-2021 11:16-0400 Systolic blood pressure 116 mm[Hg] Betzy Athy PA-C Work Phone: [facility] 07-23-2021 09:10-0500 Body height 157.48 cm Piero Ortiz Work Phone: MP-[facility] Work Phone: 07-23-2021 09:10-0500 Body mass index (BMI) [Ratio] 22.31 kg/m2 Piero Ortiz Work Phone: MP-Scott Work Phone: 07-23-2021 09:10-0500 Body surface area Derived from formula 1.55 m2 Piero Ortiz Work Phone: [facility] Work Phone: 07-23-2021 09:10-0500 Body weight 55.34 kg Piero Ortiz Work Phone: MP-Scott Work Phone: 07-23-2021 09:10-0500 Diastolic blood pressure 60 mm[Hg] Piero Ortiz Work Phone: [facility] Work Phone: 07-23-2021 09:10-0500 Heart rate 82 /min Piero Ortiz Work Phone: MP-Scott Work Phone: 07-23-2021 09:10-0500 Systolic blood pressure 98 mm[Hg] Piero Ortiz Work Phone: [facility] Work Phone: 06-30-2021 08:06-0500 Body height 157.48 cm Piero Joey Clementee Work Phone: MP-WSPC-[address] [place] Work Phone: 06-30-2021 08:06-0500 Body mass index (BMI) [Ratio] 23.05 kg/m2 Piero Joey McdonoughAngel Work Phone: MP-WSPC-[address] [place] [address] Work Phone: 06-30-2021 08:06-0500 Body surface area Derived from formula 1.57 m2 Piero Ortiz Work Phone: MP-WSPC-[address] [place] [address] Work Phone: 06-30-2021 08:06-0500 Body temperature 97 [degF] Piero Ortiz Work Phone: MP-WSPC-[address] [place] [address] Work Phone: 06-30-2021 08:06-0500 Body weight 57.15 kg Piero Ortiz Work Phone: MP-WSPC-[address] [place] [address] Work Phone: 06-30-2021 08:06-0500 Diastolic blood pressure 80 mm[Hg] Piero Ortiz Work Phone: MP-WSPC-[address] [place] [address] Work Phone: 06-30-2021 08:06-0500 Heart rate 74 /min Piero Ortiz Work Phone: MP-WSPC-[address] [place] [address] Work Phone: 06-30-2021 08:06-0500 SaO2% (BldA) [Mass fraction] 98 % Piero Ortiz Work Phone: MP-WSPC-[address] [place] [address] Work Phone: 06-30-2021 08:06-0500 Systolic blood pressure 100 mm[Hg] Piero Ortiz Work Phone: MP-WSPC-[address] [place] [address] Work Phone: 03-03-2021 11:45-0400 Body height 157.48 cm Piero Clementee Work Phone: FW-Eoyreoigushk-Ar sman 210 Work Phone: 03-03-2021 11:45-0400 Body mass index (BMI) [Ratio] 21.4 kg/m2 Piero Joey McdonoughAngel Work Phone: NU-Epjltyrecfsr-Ld sman 210 Work Phone: 03-03-2021 11:45-0400 Body surface area Derived from formula 1.52 m2 Piero Joey Clementee Work Phone: TZ-Vlweejignsyv-Oq sman 210 Work Phone: 03-03-2021 11:45-0400 Body temperature 96.8 [degF] Piero Cook Angel Work Phone: LD-Jpiqscvwbazs-Rj sman 210 Work Phone: 03-03-2021 11:45-0400 Body weight 53.07 kg Piero Joey Clementee Work Phone: LT-Pazuyvzdleoq-Xj sman 210 Work Phone: 03-03-2021 11:45-0400 Diastolic blood pressure 90 mm[Hg] Piero Joey McdonoughAngel Work Phone: LU-Veekilmznmbd-Ri sman 210 Work Phone: 03-03-2021 11:45-0400 Heart rate 89 /min Piero Clementee Work Phone: OT-Xqmgsdhcndwy-Pl sm[address] Work Phone: 03-03-2021 11:45-0400 Systolic blood pressure 137 mm[Hg] Piero Joey McdonoughAngel Work Phone: LF-Ytsmtlvrkktc-Sv sman 210 Work Phone: 05-15-2020 10:42-0500 BMI (Body Mass Index) 20.67 kg/m2 Piero Ortiz MP-WSPC-[address] [place] [address] Work Phone: 05-15-2020 10:42-0500 Body Temperature 98.3 [degF] Piero Ortiz MP-WSPC-[address] [place] [address] Work Phone: 05-15-2020 10:42-0500 Body weight 51.26 kg Piero Ortiz MP-WSPC-[address] [place] [address] Work Phone: 05-15-2020 10:42-0500 BP Diastolic 80 mm[Hg] Piero DELGADILLOWSPC-[address] Work Phone: 05-15-2020 10:42-0500 BP Systolic 120 mm[Hg] Piero DELGADILLOWSPC-[address] [place] [address] Work Phone: 05-15-2020 10:42-0500 BSA (Body Surface Area) 1.5 m2 Piero DELGADILLOWSPC-[address] Work Phone: 05-15-2020 10:42-0500 Height 157.48 cm Piero DELGADILLOWSPC-[address] [place] [address] Work Phone: 05-15-2020 10:42-0500 Pulse (Heart Rate) 60 /min Piero OVERTON-N [place] Work Phone: 05-15-2020 10:42-0500 Respiratory Rate 15 /min Piero OVERTON-[address] [place] [address] Work Phone: 04-24-2020 10:43-0500 BMI (Body Mass Index) 20.49 kg/m2 Piero DELGADILLOWSPC-[address] [place] [address] Work Phone: 04-24-2020 10:43-0500 Body Temperature 97.4 [degF] Piero DELGADILLOWSPC-[address] [place] [address] Work Phone: 04-24-2020 10:43-0500 Body weight 50.8 kg Piero OVERTON-[address] [place] [address] Work Phone: 04-24-2020 10:43-0500 BSA (Body Surface Area) 1.49 m2 Piero DELGADILLOWSPC-[address] [place] Work Phone: 04-24-2020 10:43-0500 Height 157.48 cm Piero MEDINAPC-N [place] [address] Work Phone: 04-18-2020 17:46-0500 BMI (Body Mass Index) 20.49 kg/m2 Piero DELGADILLOWSPC-[address] [place] [address] Work Phone: 04-18-2020 17:46-0500 Body weight 50.8 kg Piero DELGADILLOWSPC-[address] [place] [address] Work Phone: 04-18-2020 17:46-0500 BSA (Body Surface Area) 1.49 m2 Piero Ortiz MP-WSPC-[address] [place] [address] Work Phone: 04-18-2020 17:46-0500 Height 157.48 cm Piero DELGADILLOWSPC-[address] [place] [address] Work Phone: 01-16-2020 17:09-0400 BMI (Body Mass Index) 21.03 kg/m2 Piero Ortiz MP-WSPC-[address] [place] [address] Work Phone: 01-16-2020 17:09-0400 Body weight 52.16 kg Piero DELGADILLOWSPC-[address] [place] [address] Work Phone: 01-16-2020 17:09-0400 BSA (Body Surface Area) 1.51 m2 Piero DELGADILLOWSPC-[address] [place] [address] Work Phone: 01-16-2020 17:09-0400 Height 157.48 cm Piero DELGADILLOWSPC-N [place] [address] Work Phone: 12-14-2019 10:41-0400 BMI (Body Mass Index) 21.03 kg/m2 Nathalia Lou MP-WSPC-[address] [place] [address] Work Phone: 12-14-2019 10:41-0400 Body Temperature 97.6 [degF] Nathalia Lou MP-WSPC-[address] [place] [address] Work Phone: 12-14-2019 10:41-0400 Body weight 52.16 kg Nathalia Lou MP-WSPC-[address] [place] [address] Work Phone: 12-14-2019 10:41-0400 BP Diastolic 80 mm[Hg] Nathalia Lou MP-WSPC-[address] [place] [address] Work Phone: 12-14-2019 10:41-0400 BP Systolic 118 mm[Hg] Nathalia Lou MP-WSPC-[facility] 2099 Work Phone: 12-14-2019 10:41-0400 BSA (Body Surface Area) 1.51 m2 Nathalia Lou MP-WSPC-[address] [place] [address] Work Phone: 12-14-2019 10:41-0400 Height 157.48 cm Nathalia Lou MP-WSPC-[address] [place] [address] Work Phone: 12-14-2019 10:41-0400 Pulse (Heart Rate) 66 /min Nathalia Lou MP-WSPC-[facility] 2099 Work Phone: 12-14-2019 10:41-0400 Respiratory Rate 16 /min Nathalia Lou MP-WSPC-[facility] 2099 Work Phone: 12-13-2019 12:41-0400 BMI (Body Mass Index) 21.03 kg/m2 Nathalia Lou UY-ORXMD-Pmyiictv 2420 DO Work Phone: 12-13-2019 12:41-0400 Body weight 52.16 kg Nathalia Mckeonch GP-YIHBX-Rfkhclu e 2420 DO Work Phone: 12-13-2019 12:41-0400 BP Diastolic 64 mm[Hg] Nathalia Mckeonch UG-PYZKA-Slgmqyh e 2420 DO Work Phone: 12-13-2019 12:41-0400 BP Systolic 112 mm[Hg] Nathalia Mckeonch DD-RSUVI-Vssgueu e 2420 DO Work Phone: 12-13-2019 12:41-0400 BSA (Body Surface Area) 1.51 m2 Nathalia Lou VX-YPAVE-Mndtazfw 2420 DO Work Phone: 12-13-2019 12:41-0400 Height 157.48 cm Nathaliashobha Mckeonch GW-HROUB-Vojlhpq e 2420 DO Work Phone: 12-13-2019 12:41-0400 0 1 Nathalia Lasch GT-LHBDH-Uyhznzq e 2420 DO Work Phone: Comment on above: [facility] 11-22-2019 15:10-0400 BMI (Body Mass Index) 21.03 kg/m2 Nathalia Lou HN-HLQYM-Armihqxx 2420 DO Work Phone: 11-22-2019 15:10-0400 Body Temperature 97.3 [degF] Nathalia Lou MH-JZYRR-Ilzhcu ke 2420 DO Work Phone: 11-22-2019 15:10-0400 Body weight 52.16 kg Nathalia Lou ZW-SBLGO-Rrtuvml e 2420 DO Work Phone: 11-22-2019 15:10-0400 BP Diastolic 70 mm[Hg] Nathalia Lou GW-BADNH-Ezmglcx e 2420 DO Work Phone: 11-22-2019 15:10-0400 BP Systolic 110 mm[Hg] Nathalia Mckeonch ZN-QMOZW-Roqyrer e 2420 DO Work Phone: 11-22-2019 15:10-0400 BSA (Body Surface Area) 1.51 m2 Nathalia Lou NU-VNVCP-Hknlwaof 2420 DO Work Phone: 11-22-2019 15:10-0400 Height 157.48 cm Nathalia Lou GG-XXAPS-Bugepfn e 2420 DO Work Phone: 11-22-2019 15:10-0400 Pulse (Heart Rate) 70 /min Nathalia Lou WL-CYTHX-Kowj sue 2420 DO Work Phone: 11-22-2019 15:10-0400 Respiratory Rate 16 /min Nathalia Lou BX-EFQXI-Jjzmdo ke 2420 DO Work Phone: 10-06-2018 12:39-0400 BMI (Body Mass Index) 23.41 kg/m2 Piero Ortiz CV-IDGVE-Eksteear 2420 DO Work Phone: 10-06-2018 12:39-0400 BP Diastolic 70 mm[Hg] Piero Ortiz SJ-QMNRP-Dvormci e 2420 DO Work Phone: 10-06-2018 12:39-0400 BP Systolic 110 mm[Hg] Piero RIVERA-OBGYN-[place] 2420 DO Work Phone: 10-06-2018 12:39-0400 BSA (Body Surface Area) 1.58 m2 Piero RIVERAKA-ZBOLC-Brnvsvgs 2420 DO Work Phone: 10-06-2018 12:39-0400 Height [...] Facility:[facility] Start: 04-09-2025 ambulatory Bello Chi Issac Facility:[facility] Start: 04-03-2025 End: 04-03-2025 ambulatory BELLO CHI ISSAC Facility:[facility] Start: 04-02-2025 ambulatory Bello Chi Issac Facility:[facility] Start: 03-29-2025 End: 03-29-2025 ambulatory BELLO CHI ISSAC Facility:[facility] Start: 03-28-2025 End: 03-30-2025 ambulatory Bello Chi Issac Facility:[facility] Start: 03-13-2025 End: 03-13-[address] Ally Bailey MD -[facility] Work Phone: Start: 03-13-2025 End: 03-13-[address] Bello Davenport MD Work Phone: -[facility] Start: 03-08-2025 ambulatory Bello Chi Issac Facility:[facility] Start: 03-08-2025 Non-patient / Non-visit Chuck Hancock nd DO -[facility] Start: 03-08-2025 End: 03-08-2025 Admission to same [...] 02-22-2025 End: 02-22-2025 ambulatory BELLO DAVENPORT Facility:[facility] Start: 02-20-2025 ambulatory TAQUERIA Burnett DARIEL Facility :[facility] Start: 01-26-2025 End: 01-28-[address] [...] 01-18-2025 End: 01-18-2025 Patient encounter procedure Lise Araya DRY HEAT ROOM ATTENDANTHiramC -[facility] Work Phone: Start: 01-18-2025 End: 01-18-2025 ambulatory Bello [facility] Facility:[facility] Start: 01-16-2025 End: 01-16-2025 Patient encounter procedure Janina MENARDC Work Phone: [facility] [place] Comment on above: Gastroesophageal ref lux disease, unspecified whether esophagitis present (Primary Dx); LUQ discomfort; Change in bowel habits Start: 01-16-2025 End: 01-16-2025 ambulatory BELLO [facility] Facility:[facility] Start: 01-15-[address] Bello zhang MD Work Phone: -Pulmonary Rehab Work Phone: Start: 01-12-2025 End: 01-12-[address] Bello Davenport MD Work Phone: -[facility] Re[facility] Start: 01-12-2025 End: 01-12-[address] Bello Davenport MD Work Phone: -Pulmonary Rehab Work Phone: Start: 01-12-2025 End: 01-12-2025 ambulatory [employer] Facility:[facility] Start: 01-10-2025 End: 01-10-2025 Telephone encounter [...] unspecified type Start: 12-29-2024 End: 12-29-2024 ambulatory [facility] Facility[facility] Start: 12-28-2024 End: 12-28-2024 Office consultation new/estab patient 80 min Anna Tabor MD Work Phone: Geriatrics Comment on above: Brain fog (Primary D x); Psychophysiological insomnia; Post covid-19 condition, unspecified; Primary obstructive sleep apnea of Start: 12-28-2024 End: 12-28-2024 ambulatory BELLO DAVENPORT Facility:[facility] Start: 12-26-2024 End: 12-26-2024 Patient encounter procedure Lise Araya DRY HEAT ROOM ATTENDANT-C -[facility] Work Phone: Start: 12-26-2024 End: 12-26-2024 Patient encounter status Lise Araya DRY HEAT ROOM ATTENDANT-[facility] Start: 12-26-2024 End: 12-26-[address] Bello Davenport MD Work Phone: -[facility] Start: 12-21-2024 End: 12-21-2024 Patient encounter procedure [facility] Work Phone: [facility]ULM [facility] Start: 12-21-2024 End: 12-21-2024 ambulatory [facility] Work Phone: PULM LAB [facility] Comment on above: Spirometry Start: 12-20-2024 [...] Follow-up encounter Maddie Martínez APRN.CNP Work Phone: [facility] Comment on above: Results Start: 12-15-2024 End: 12-15-2024 ambulatory BELLO CHI ISSAC Facility:[facility] Start: 12-04-2024 End: 12-06-2024 Telephone encounter Taqueria Vieira MD Work Phone: [facility] [place] Comment on above: Results Results (Lab and Narda h test results) Start: 12-01-2024 End: 01-31-2025 Follow-up encounter Taqueria Vieira MD Work Phone: [facility] Start: 11-30-2024 End: 11-30-2024 ambulatory [facility] Facility: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 Start: 11-07-2024 End: 11-07-2024 Telephone encounter Taqueria Vieira MD Work Phone: [facility] [place] Comment on above: Patient Question Start: 10-05-2024 End: 10-05-2024 Patient encounter procedure Pina CALDERA -[facility] Work Phone: Start: 10-05-2024 End: 10-05-2024 ambulatory Pina Robles Facility:[place] [facility] Start: 09-27-2024 End: 09-27-2024 Follow-up encounter Ozzie Louis MD Work Phone: Dermatology [place] Start: 09-25-2024 End: 09-25-2024 ambulatory [facility] Facility:[facility] Start: 09-11-2024 End: 09-13-2024 Telephone encounter Taqueria Vieira MD Work Phone: Pulmonology [facility] Comment on above: Appointment ([facility] follow up) Start: 09-08-2024 End: 09-08-2024 ambulatory [facility] Facility:[facility] Start: 09-08-2024 End: 09-08-2024 Patient encounter procedure Ozzie Louis MD Work Phone: [facility] [place] Comment on above: Alopecia areata (Rosalva jenna Dx); Vitamin D deficiency Start: 08-31-2024 End: 08-31-[address] Shan Bolaños MD -[facility] Work Phone: Start: 08-31-2024 End: 08-31-2024 ambulatory Bello Davenport Facility:[facility] Start: 08-11-2024 End: 08-11-[address] Bello Davenport MD Work Phone: [facility] Work Phone: Start: 08-11-2024 End: 08-11-[address] Bello Davenport MD -Laboratory, Phy Office 3rd Flr Start: 08-11-2024 End: 08-11-2024 ambulatory [facility] Facility:[facility] Start: 07-02-2024 End: 07-02-2024 Emergency department patient visit [facility] Facility:[facility] Start: 05-22-2024 End: 05-22-[address] Bello Davenport MD -Laboratory, Phy Office 3rd Flr Start: 05-22-2024 End: 05-22-2024 ambulatory [facility] Facility:[facility] Start: 11-14-2023 Telephone encounter Ryanne NIXON Work Phone: [facility] Comment on above: Results Start: 11-13-2023 End: 11-13-2023 Patient encounter procedure Leatha Torres ENGINEERING AND OPERATIONS DIRECTOR.ROADSIDE MECHANIC Work Phone: [facility] Comment on above: Burning with urinati on (Primary Dx) Start: 10-14-2023 End: 10-15-2023 ambulatory JASWANT ANAND MD Facility:[id number] Start: 10-04-2023 End: 10-04-2023 Patient encounter procedure Nathalia Jovanna ENGINEERING AND OPERATIONS DIRECTOR.ROADSIDE MECHANIC Work Phone: [facility] Comment on above: Acute otitis media, left (Primary Dx) Start: 10-01-2023 End: 10-01-2023 ambulatory Demetris Garcia PT Work Phone: [facility] Comment on above: Pain in left hip; DDD (degenerative disc disease), lumbar Start: 09-23-2023 End: 09-24-2023 ambulatory JASWANT ANAND MD Facility:[id number] Start: 09-09-2023 End: 09-09-2023 Patient encounter procedure Mirella MENARDC Work Phone: Orthopaedics Comment on above: Pain in left hip (Pr imary Dx); DDD (degenerative disc disease), lumbar Start: 09-09-2023 End: 09-09-2023 Subsequent hospital visit by physician Radio General Dina Vazquez Work Phone: Radiology Comment on above: Bilateral hip pain [ M25.551, M25.552] Start: 09-03-2023 End: 09-03-2023 ambulatory [facility] Work Phone: Start: 09-03-2023 End: 09-03-2023 Patient encounter procedure [facility]-Cat Scan, [facility] Work Phone: Start: 08-20-2023 Orders Only Mirella diaz PA-C Work Phone: Orthopaedics Comment on above: Bilateral hip pain ( Primary Dx) Start: 08-11-2023 End: 08-11-2023 ambulatory [facility] Work Phone: Start: 08-11-2023 End: 08-11-2023 Patient encounter procedure [facility]-Laboratory, Phy Office 3rd Flr Start: 08-05-2023 End: 08-05-2023 Patient encounter procedure Alli Hutchinson MD, PhD Work Phone: Otolaryngology Comment on above: Nasal congestion (Pr imary Dx); Glossitis; Central perforation of tympanic membrane of left ear Start: 07-28-2023 Telephone encounter Jeremy Ramirez APRN.ROADSIDE MECHANIC Work Phone: [facility] Comment on above: Results Start: 07-27-2023 ambulatory JEREMY RAMIREZ Facili ty:[facility] Start: 07-27-2023 End: 07-27-2023 Subsequent hospital visit by physician Mammo/Bone Density [facility] RADIO MAMMO BONE D [facility] Comment on above: Post-menopausal [Z78 .0] Start: 07-22-2023 End: 07-22-2023 Office outpatient visit 25 minutes Angel Catherine ENGINEERING AND OPERATIONS DIRECTOR.ROADSIDE MECHANIC Work Phone: [facility] Comment on above: Acute sinusitis, rec [...] above: Thyroid Biopsy Start: 07-12-2023 E-mail encounter fro m caregiver Dominique Fisher MD Work Phone: [facility] Start: 05-12-2023 E-mail encounter fro m caregiver Consuelo Contreras ENGINEERING AND OPERATIONS DIRECTOR.ROADSIDE MECHANIC Work Phone: [facility] Start: 05-12-2023 Patient encounter procedure Consuelo Contreras ENGINEERING AND OPERATIONS DIRECTOR.ROADSIDE MECHANIC Work Phone: Pulmonology [facility] Comment on above: Welcome to [facility]! Start: 05-11-2023 Telephone encounter Jeremy Ramirez ENGINEERING AND OPERATIONS DIRECTOR.ROADSIDE MECHANIC Work Phone: [facility] Comment on above: Results Start: 05-10-2023 End: 05-10-2023 Patient encounter procedure Madeline Hinojosa ENGINEERING AND OPERATIONS DIRECTOR.ROADSIDE MECHANIC Work Phone: [facility] Comment on above: Rhinosinusitis (Prim pj Dx); Acute otitis media, bilateral Start: 05-06-2023 End: 05-06-2023 Patient encounter procedure Jeremy Ramirez ENGINEERING AND OPERATIONS DIRECTOR.ROADSIDE MECHANIC Work Phone: [facility] Comment on above: Chronic fatigue (Rosalva [...] 12-29-2022 Chart Update Piero guillen Work Phone: HL-NYWLW-Jecqpgqg 2420 DO Work Phone: Start: 12-24-[address] Piero Caputo acility:[id number] Start: 12-17-2022 Periodic preventive med est patient 40-64yrs Piero Ortiz Work Phone: CU-XNNLC-Yvrdesid 2420 DO Work Phone: Start: 12-17-[address] Piero Caputo acility:[id number] Start: 07-28-2022 ULTRASOUND, Provider : Jorge Min, Status: Pen, Time: 9:00 AM Piero Ortiz Work Phone: -[facility] [place] [address] Work Phone: Start: 07-27-2022 Chart Update Piero guillen Work Phone: MP-[facility] [place] Work Phone: Start: 07-22-2022 AUDIT Piero guillen Work Phone: [facility] Work Phone: Start: 06-03-2022 Telephone encounter Taqueria Vieira MD Work Phone: [facility] [place] Comment on above: Medication Problem Start: 05-29-2022 End: 05-29-2022 Patient encounter procedure Lissette Kolb ENGINEERING AND OPERATIONS DIRECTOR.ROADSIDE MECHANIC Work Phone: [facility] Comment on above: Rhinosinusitis (Prim pj Dx) Start: 03-03-2022 Telephone encounter Muna Yumi An ENGINEERING AND OPERATIONS DIRECTOR.ROADSIDE MECHANIC Work Phone: [facility] Comment on above: Results Start: 03-02-2022 End: 03-02-2022 Patient encounter procedure Fred Her MD Work Phone: [facility] Comment on above: Acute COVID-19 (Prim pj Dx); Acute otitis media, right Start: 12-23-2021 Chart Update Piero guillen Work Phone: RA-LELBV-SEK [address] [place] Work Phone: Start: 12-11-2021 Patient encounter procedure Piero Ortiz Work Phone: CY-SEKQT-Oetbdnqq 2420 DO Work Phone: Start: 12-11-2021 Periodic preventive med est patient 40-64yrs Piero Ortiz Work Phone: IM-GZEMF-Efisospr 2420 DO Work Phone: Start: 11-18-2021 Chart Update Piero guillen Work Phone: MP-[facility] [place] [address] Work Phone: Start: 11-06-2021 Office outpatient vi sit 25 minutes Piero Ortiz Work Phone: MP-[facility] [place] Work Phone: Start: 11-06-2021 Patient encounter procedure Piero Ortiz Work Phone: MP-[facility] [address] Work Phone: Start: 09-09-2021 Telephone encounter Shahida Agarwal ROADSIDE MECHANIC Work Phone: [facility] Comment on above: Results Start: 09-08-2021 End: 09-08-2021 Patient encounter procedure Betzy Willis PA-C Work Phone: [facility] Comment on above: Acute pansinusitis, recurrence not specified (Primary Dx) Start: 07-23-2021 Office outpatient vi sit 15 minutes Piero Ortiz Work Phone: [facility] Work Phone: Start: 06-30-2021 Office outpatient vi sit 15 minutes Piero Ortiz Work Phone: MP-[facility] [address] Work Phone: Start: 06-30-2021 Patient encounter procedure Piero Ortiz Work Phone: MP-[facility] [place] Work Phone: Start: 06-16-2021 Patient encounter procedure Piero Ortiz Work Phone: DK-Kzwmmbi-Ukdrvoyv SJW 240 DO Work Phone: Start: 03-24-2021 Rx Renewal Piero guillen Work Phone: WD-Ehhqrce-Wcsybdfr SJW 240 DO Work Phone: Start: 03-24-2021 Rx Renewal Piero Joey Mcdonoughss e Work Phone: JD-Cnfrswgqcusc-Uevafn 210 Work Phone: Start: 01-14-2021 Rx Renewal Piero Joey Clemente e Work Phone: CA-Tdaublhpgndi-Dzdkyg 210 Work Phone: Start: 12-31-2020 Chart Update Piero guillen Work Phone: BZ-EYRMH-Ldzkulgk 2420 DO Work Phone: Start: 12-17-2020 Rx Renewal Piero Clemente wilmer Work Phone: FP-Hzyydoeuzgwp-Rxrmfo 200 Work Phone: Start: 12-12-2020 Chart Update Piero guillen Work Phone: TG-CAZFR-ZJS 1200 [place] Work Phone: Start: 12-12-2020 Patient encounter procedure Piero Clementee Work Phone: TM-ONOFN-Qpbapswd 2420 DO Work Phone: Start: 12-12-2020 Periodic preventive med est patient 40-64yrs Piero Clementee Work Phone: UD-DBYVW-Zvozdwyl 2420 DO Work Phone: Start: 11-20-2020 Office outpatient vi sit 15 minutes Piero Clementee Work Phone: HJ-Pocyvcfksflo-Siwlxth e Work Phone: Start: 11-20-2020 NPV, Provider: Cash Ochoa, Status: Pen, Time: 10:00 AM Piero Mcdonoughsse Work Phone: DB-Yowbbuelmhwe-Gonpwn 210 Work Phone: Start: 11-19-2020 AUDIT Piero Clemente wilmer Work Phone: DI-Zsexiunpjkou-Vccwia 210 Work Phone: Start: 05-15-2020 Patient encounter procedure Piero Ortiz MP-[facility] [address] Work Phone: Start: 04-24-2020 Patient encounter procedure Piero DELGADILLOWSVERENICE-[address] Work Phone: Start: 04-18-2020 Patient encounter procedure Piero Ortiz MP-[facility] [address] Work Phone: Start: 02-16-2020 Patient encounter procedure Piero DELGADILLOWSPC-[address] Work Phone: Start: 01-16-2020 Patient encounter procedure Piero Ortiz MP-[facility] [address] Work Phone: Start: 12-14-2019 Patient encounter procedure Nathalia Lou MP-[facility] [place] Work Phone: Start: 12-13-2019 Patient encounter procedure Nathalia Lou UE-IJRNL-Xzjppmil 2420 DO Work Phone: Start: 11-22-2019 Patient encounter procedure Nathalia Lou QJ-EEOSR-Dtobyodq 2420 DO Work Phone: Start: 09-04-2019 Patient encounter procedure Nathalia Lou HT-NLYXW-Bbfcpbxc 2420 DO Work Phone: Start: 06-01-2019 Patient encounter procedure Piero Ortiz MPWM-Uxhhilxnqfkivn-Tagml angely SJW Work Phone: Start: 05-15-2019 Patient encounter procedure Piero Angel TQ-Igvxlfvlnkoqbt-Lcvnz angely SJW Work Phone: Start: 05-01-2019 Patient encounter procedure Piero Ortiz MPAU-Bnjulpuutdbipv-Ninxs angely SJW Work Phone: Start: 03-02-2019 Patient encounter procedure Piero Mcdonoughsswilmer COTAXR-Ourvharimpuunb-Ijrmo angely SJW Work Phone: Start: 02-15-2019 Patient encounter procedure Piero Angel FW-Yxrkeqdbwixxmp-Qupuf angely SJW Work Phone: Start: 10-06-2018 Patient encounter procedure Piero RIVERAMS-KSFBI-Vbfneayu 2420 DO Work Phone: Start: 10-05-2018 Patient encounter procedure Piero Angel NS-MTJKY-Sjsmunyt 2420 DO Work Phone: Start: 09-07-2018 Patient encounter procedure Piero RIVERAVQ-VLNGX-Tptjerdr 2420 DO Work Phone: Start: 08-30-2018 Patient encounter procedure Nathalia Lou Facility:[facility] Start: 08-22-2018 Patient encounter procedure Mesha Garcia Facility:[facility] Start: 08-09-2018 Patient encounter procedure Piero RIVERAJM-YSAAJ-Vtqyzuos 2420 DO Work Phone: Start: 05-17-2018 Patient encounter procedure Piero RIVERAJZ-PGVTC-Curmpahy 2420 DO Work Phone: Start: 05-06-2018 Patient encounter procedure Piero RIVERAYF-UNIOT-Ntsenzxh 2420 DO Work Phone: Start: 04-08-2018 Patient encounter procedure Piero RIVERAFG-GOPAU-Wazqvpno 2420 DO Work Phone: Start: 03-28-2018 Patient encounter procedure Piero RIVERANM-FKNPK-Unqeophu 2420 DO Work Phone: Start: 01-25-2018 Patient encounter procedure Piero RIVERAWL-UOXWN-Kyohrpnx 2420 DO Work Phone: Start: 01-19-2018 Patient encounter procedure Piero RIVERAKH-VPJAF-Ptzpgxer 2420 DO Work Phone: Start: 11-28-2017 Patient encounter procedure SJ Miscellaneous Facility:[facility] Start: 11-12-2017 End: 11-27-2017 Patient encounter procedure SJ Miscellaneous Facility:[facility] Start: 10-20-2017 End: 10-28-2017 Patient encounter procedure SJ Miscellaneous Facility:[facility] Start: 10-07-2017 Patient encounter procedure Piero RIVERANN-XTQKX-Ceshserk 2420 DO Work Phone: Start: 10-06-2017 Patient encounter procedure Piero RIVERANI-WJBTS-Trkkbvgt 2420 DO Work Phone: Start: 07-30-2017 Patient encounter procedure Piero Lucio 2420 DO Work Phone: Start: 01-14-2017 Patient encounter procedure Piero Lucio 2420 DO Work Phone: Start: 10-19-2016 Patient encounter procedure Piero Lucio 2420 DO Work Phone: Patient encounter status Piero Ortiz Work Phone: SK-Qqnpvrfwpkkb-Vjrsqv 210 Work Phone: Procedures Date Procedure Procedure [...] bilateral with pelvis minimum 5 views Mirella NIXON-C Work Phone: Start: 09-03-2023 Computed tomography of abdomen and pelvis with contrast Start: 08-11-2023 Urine culture Start: 07-22-2023 STREP A MOLECULAR (POC) Angel Catherine APRN.ROADSIDE MECHANIC Work Phone: Start: 07-15-2023 soft tissue head & neck real time imge docm Dominique Fisher MD Work Phone: Start: 05-07-2023 Lipid 1996 panel - Serum or Plasma Stacia Hinojosa ENGINEERING AND OPERATIONS DIRECTOR.ROADSIDE MECHANIC Work Phone: Start: 11-07-2021 Lipid 1996 panel - Serum or Plasma Mary Ann Ramirez ENGINEERING AND OPERATIONS DIRECTOR.ROADSIDE MECHANIC Work Phone: Start: 01-27-2021 Colonoscopy Dominique Fisher MD Work Phone: Start: 04-18-2020 Coronavirus 2019 RNA by PCR, Symptomatic Piero Ortiz Start: 01-18-2020 Colonoscopy Jeremy Ramirez ENGINEERING AND OPERATIONS DIRECTOR.ROADSIDE MECHANIC Work Phone: Start: 12-11-2019 MG Breast screening Nathalia Mikedevonte Start: 08-15-2018 MG Breast screening Piero Ortiz Start: 08-09-2018 Colonoscopy Piero Ortiz Start: 03-09-2007 Mammography Betzy Willis PA-C Work Phone: History of Dilation And Curettage Piero Ortiz History of Ear Surgery Addy Ortiz Plan of Treatment Date Care Activity Detail Author Start: 07-02-2034 Urine microalbumin profile DTaP,Tdap,Td Vaccine (3 - Td or Tdap) [facility] Start: 05-07-2028 Lipid 1996 panel - Serum or Plasma Lipid Screening [facility] Start: 05-07-2028 Lipid panel Lipid Screening [facility] Start: 12-01-2027 Diabetes Screening Diabetes Screenin [facility] Start: 08-27-2027 Screening for malign ant neoplasm of colon Cologuard (FIT-DNA) [facility] Start: 11-07-2026 Lipid 1996 panel - Serum or Plasma Lipid Screening [facility] Start: 05-07-2026 Diabetes Screening Diabetes Screenin [facility] Start: 01-27-2026 Screening for malign ant neoplasm of colon [facility] Start: 06-05-2025 End: 06-05-2025 Patient encounter procedure 06/05/2025 1:00 PM EST Office Visit Family Medicine [facility] [address] [place], [place] [id number] Taqueria Vieira MD [address] [place], [place] [phone] est care [facility] Comment on above: est care Start: 05-02-2025 End: 05-02-2025 Patient encounter procedure 05/02/2025 2:20 PM EST Office Visit Cardiology [address] [place] [address] Marlon Maria MD [address] [place] [address] Post covid-19 condition, 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 With me via virtual visit Pulmonary Medicine Comment on above: Return in about 3 mo nths (around 03/31/2025). With me via virtual visit Start: 03-26-2025 Registered Recurring Registered Recu rring -Pulmonary Rehab Work Phone: Start: 03-08-2025 Egd transoral biopsy single/multiple EGD BIOPSY SINGLE/MULTIPLE [facility] Start: 03-08-2025 Patient discharge [facility] Start: 02-22-2025 End: 02-22-2025 Patient encounter procedure 02/22/2025 9:00 AM EDT Office Visit [facility] [address] [place], [place] [id number] Taqueria Vieira MD [address] [place], [place] [address] 2 month recover follow up [facility] Comment on above: 2 month recover foll ow up Start: 02-20-2025 End: 02-20-2025 Patient encounter procedure 02/20/2025 10:00 AM EDT Appointment Cardiology Lab [address] [place] [address] ECHO Cardiology Lab Comment on above: ECHO Start: 02-08-2025 End: 02-08-2025 Patient encounter procedure 02/08/2025 11:00 AM EDT Appointment Ambulatory Surgery [address] [place] [address] Shelia Lambert MD [address] [place] [address] EGD DIAGNOSTIC Ambulatory Surgery Comment on above: EGD DIAGNOSTIC Start: 01-29-2025 Influenza vaccination Influenza Vacc ine (#1) [facility] Start: 01-18-2025 MG Breast - bilatera l Screening [facility] Start: 01-18-2025 SCRN MAMM (CAD)W/KHRIS O BILAT SCRN MAMM (CAD)W/BEBA BILAT [facility] Start: 01-17-2025 Colonoscopy Colonoscopy [facility] Start: 01-17-2025 Colorectal Cancer Screening Colorectal Cancer Screening [facility] Start: 01-17-2025 Screening for malign ant neoplasm of colon [facility] Start: 01-16-2025 End: 01-16-2025 Patient encounter procedure 01/16/2025 11:20 AM EDT Office Visit Gastroenterology [place] [address] [facility] [place] [phone] Janina Miranda PA-C [address] [facility] [place] [address] Post covid-19 condition, unspecified [U09.9] Gastroenterology [facility] Comment on above: Post covid-19 condit ion, unspecified [U09.9] Start: 01-12-2025 End: 01-12-2025 Patient encounter procedure 01/12/2025 12:00 PM EDT Appointment Cardiology Lab [address] [place] [address] Shortness of breath [R06.02] Cardiology Lab Comment on above: Shortness of breath [R06.02] Start: 12-29-2024 End: 12-29-2024 Patient encounter procedure 12/29/2024 9:45 AM EDT Office Visit Pulmonary Medicine [address] [place] [address] [place] [address] [place] [address] PFT's 12/07/2024, Post covid-19 condition, unspecified [U09.9] Pulmonary Medicine Comment on above: PFT's 12/07/2024, Pos t covid-19 condition, unspecified [U09.9] Start: 12-28-2024 End: 12-28-2024 Patient encounter procedure 12/28/2024 10:30 AM EDT Office Visit Geriatrics [address] [place] [address] Anna Tabor MD [address] [place] [address] Post covid-19 condition, unspecified [U09.9] Geriatrics Comment on above: Post covid-19 condit ion, unspecified [U09.9] Start: 12-21-2024 End: 12-21-2024 ambulatory PULM LAB [facility] Comment on above: Shortness of breath [R06.02] Start: 12-20-2024 End: 12-20-2024 Patient encounter procedure 12/20/2024 2:40 PM EDT Office Visit OB/Gynecology [address] [place] [address] Autumn Flowers MD [address] [place] [address] annual OB/Gynecology Comment on above: annual Start: 12-18-2024 End: 12-18-2024 Patient encounter procedure 12/18/2024 2:40 PM EDT Office Visit OB/Gynecology [address] [place] [address] Autumn Flowers MD [address] [place] [address] annual OB/Gynecology Comment on above: annual Start: 12-14-2024 End: 12-14-2024 ambulatory 12/14/2024 10:00 AM EDT [facility] Integrative and Lifestyle Medicine [address] [place] [address] Jeremy Schaeffer MD [address] [place], [place] [id number] Fatigue, unspecified type [R53.83] Integrative and Lifestyle Medicine Comment on above: Fatigue, unspecified type [R53.83] Start: 12-07-2024 End: 12-07-2024 ambulatory PULM LAB [facility] Comment on above: Shortness of breath [R06.02] Start: 11-30-2024 End: 03-01-2025 25-hydroxyvitamin D3 [Mass/volume] in Serum or Plasma [facility] Comment on above: Expected: 11/30/2024 , Expires: 03/01/2025 Start: 11-30-2024 End: 03-01-2025 C reactive protein [Mass/volume] in Serum or Plasma [facility] Comment on above: Expected: 11/30/2024 , Expires: 03/01/2025 Start: 11-30-2024 End: 03-01-2025 Cobalamin (Vitamin B12) [Mass/volume] in Serum or Plasma [facility] Comment on above: Expected: 11/30/2024 , Expires: 03/01/2025 Start: 11-30-2024 End: 03-01-2025 Comprehensive metabolic 2000 panel - Serum or Plasma [facility] Work Phone: Comment on above: Expected: 11/30/2024 , Expires: 03/01/2025 Start: 11-30-2024 End: 03-01-2025 Ferritin [Mass/volume] in Serum or Plasma [facility] Comment on above: Expected: 11/30/2024 , Expires: 03/01/2025 Start: 11-30-2024 End: 03-01-2025 Folate [Mass/volume] in Serum or Plasma [facility] Comment on above: Expected: 11/30/2024 , Expires: 03/01/2025 Start: 11-30-2024 End: 03-01-2025 Natriuretic peptide.B prohormone N-Terminal [Mass/volume] in Serum or Plasma [facility] Comment on above: Expected: 11/30/2024 , Expires: 03/01/2025 Start: 11-30-2024 End: 03-01-2025 OMEGACHECK [facility] Comment on above: Expected: 11/30/2024 , Expires: 03/01/2025 Start: 11-30-2024 End: 03-01-2025 Thyrotropin [Units/volume] in Serum or Plasma [facility] Comment on above: Expected: 11/30/2024 , Expires: 03/01/2025 Start: 11-30-2024 End: 03-01-2025 TRACE ELEMENTS/TPN [facility] Comment on above: Expected: 11/30/2024 , Expires: 03/01/2025 Start: 11-30-2024 End: 11-30-2024 Patient encounter procedure 11/30/2024 10:20 AM EDT Office Visit [facility] [address] [place] [address] Taqueria Vieira MD [address] [place], [place] [id number] recover follow up [facility] Comment on above: recover follow up Start: 11-07-2024 Diabetes Screening Diabetes Screenin g [facility] Start: 10-19-2024 End: 10-19-2024 Patient encounter procedure 10/19/2024 10:00 AM EDT Office Visit [facility] [address] [place] [address] Taqueria Vieira MD [address] [place], [place] [address] recover follow up [facility] Comment on above: recover follow up Start: 09-08-2024 End: 12-08-2024 25-hydroxyvitamin D3 [Mass/volume] in Serum or Plasma VITAMIN D 25 HYDROXY Lab Routine Alopecia areata Vitamin D deficiency Expected: 09/08/2024, Expires: 12/08/2024 [facility] Work Phone: Comment on above: Expected: 09/08/2024 , Expires: 12/08/2024 Start: 07-13-2024 End: 08-19-2024 US Thyroid gland US THYROID/PARATHYROID Radiology Routine Nontoxic multinodular goiter Expected: 07/13/2024, Expires: 08/19/2024 [facility] Work Phone: Comment on above: Expected: 07/13/2024 , Expires: 08/19/2024 Start: 06-08-2024 Medicare Annual Wellness Visit Medicare Annual Wellness Visit [facility] Start: 06-08-2024 Pneumococcal Vaccine : 65+ (1 of 1 - PCV) Pneumococcal Vaccine: 65+ (1 of 1 - PCV) [facility] Comment on above: Postponed from 05/28 (Declined at this time) Start: 06-08-2024 RSV Vaccine (1 - 1-d ose 60+ series) RSV Vaccine (1 - 1-dose 60+ series) [facility] Comment on above: Postponed from 05/28 (Declined at this time) Start: 06-08-2024 Shingrix Vaccine (1 of 2) Shingrix Vaccine (1 of 2) [facility] Comment on above: Postponed from 05/28 (Declined at this time) Start: 05-31-2024 Advance Directive Discussion Advance Directive Discussion [facility] Start: 01-30-2024 Covid-19 Vaccine ( season) Covid-19 Vaccine ( season) [facility] Start: 01-30-2024 Covid-19 Vaccine ( season) Covid-19 Vaccine ( season) [facility] [facility] Start: 01-30-2024 Influenza vaccination Influenza Vacc ine (#1) [facility] Start: 12-25-2023 Screening for malign ant neoplasm of breast Mammogram Screening [facility] Start: 12-17-2023 Mammography Mammogram Screening [facility] Start: 12-17-2023 Screening for malign ant neoplasm of breast Mammogram Screening [facility] Start: 11-25-2023 Urine microalbumin profile DTaP,Tdap,Td Vaccine (2 - Td or Tdap) [facility] Start: 11-06-2023 Shingrix Vaccine (2 of 2) Shingrix Vaccine (2 of 2) [facility] Start: 07-21-2023 End: 10-20-2023 Thyrotropin [Units/volume] in Serum or Plasma TSH BLD Lab Routine Nontoxic multinodular goiter Expected: 07/21/2023, Expires: 10/20/2023 [facility] Work Phone: Comment on above: Expected: 07/21/2023 , Expires: 10/20/2023 Start: 07-06-2023 Covid-19 Vaccine () Covid-19 Vaccine () [facility] Start: 2023 Screening for osteoporosis Bone Density Screening [facility] Start: 05-06-2023 End: 08-05-2023 25-hydroxyvitamin D3 [Mass/volume] in Serum or Plasma VITAMIN D 25 HYDROXY Lab Routine Vitamin D deficiency Expected: 05/06/2023, Expires: 08/05/2023 [facility] Work Phone: Comment on above: Expected: 05/06/2023 , Expires: 08/05/2023 Start: 05-06-2023 End: 08-05-2023 C reactive protein [Mass/volume] in Serum or Plasma C-REACTIVE PROTEIN (CRP) Lab Routine Arthralgia, unspecified joint Expected: 05/06/2023, Expires: 08/05/2023 [facility] Work Phone: Comment on above: Expected: 05/06/2023 , Expires: 08/05/2023 Start: 05-06-2023 End: 08-05-2023 CBC panel - Blood by Automated count CBC Lab Routine Screening for deficiency anemia Expected: 05/06/2023, Expires: 08/05/2023 [facility] Work Phone: Comment on above: Expected: 05/06/2023 , Expires: 08/05/2023 Start: 05-06-2023 End: 08-05-2023 Comprehensive metabolic 2000 panel - Serum or Plasma COMP METABOLIC PANEL Lab Routine Encounter for screening for diabetes mellitus Expected: 05/06/2023, Expires: 08/05/2023 [facility] Work Phone: Comment on above: Expected: 05/06/2023 , Expires: 08/05/2023 Start: 05-06-2023 End: 08-05-2023 Erythrocyte sedimentation rate SED RATE WESTERGREN Lab Routine Arthralgia, unspecified joint Expected: 05/06/2023, Expires: 08/05/2023 [facility] Work Phone: Comment on above: Expected: 05/06/2023 , Expires: 08/05/2023 Start: 05-06-2023 End: 08-05-2023 Hepatitis C virus Ab [Presence] in Serum HEPATITIS C ANTIBODY IA WITH CONFIRMATION Lab Routine Encounter for hepatitis C screening test for low risk patient Expected: 05/06/2023, Expires: 08/05/2023 [facility] Work Phone: Comment on above: Expected: 05/06/2023 , Expires: 08/05/2023 Start: 05-06-2023 End: 08-05-2023 HIV 1+2 Ab [Presence] in Serum or Plasma by Immunoassay HIV 1 2 COMBO(AG/AB),WITH REFLEX TO DIFFERENTIATION Lab Routine Screening for HIV (human immunodeficiency virus) Expected: 05/06/2023, Expires: 08/05/2023 [facility] Work Phone: Comment on above: Expected: 05/06/2023 , Expires: 08/05/2023 Start: 05-06-2023 End: 08-05-2023 Lipid 1996 panel - Serum or Plasma LIPID PANEL BASIC Lab Routine Screening for lipid disorders Expected: 05/06/2023, Expires: 08/05/2023 [facility] Work Phone: Comment on above: Expected: 05/06/2023 , Expires: 08/05/2023 Start: 05-06-2023 End: 08-05-2023 Rheumatoid factor [Units/volume] in Serum or Plasma RHEUMATOID FACTOR BL Lab Routine Arthralgia, unspecified joint Expected: 05/06/2023, Expires: 08/05/2023 [facility] Work Phone: Comment on above: Expected: 05/06/2023 , Expires: 08/05/2023 Start: 05-06-2023 End: 08-05-2023 Thyrotropin [Units/volume] in Serum or Plasma TSH BLD Lab Routine Screening for thyroid disorder Expected: 05/06/2023, Expires: 08/05/2023 [facility] Work Phone: Comment on above: Expected: 05/06/2023 , Expires: 08/05/2023 Start: 05-06-2023 End: 08-05-2023 Thyroxine (T4) free [Mass/volume] in Serum or Plasma T4 FREE/FREE THYROX Lab Routine Screening for thyroid disorder Expected: 05/06/2023, Expires: 08/05/2023 [facility] Work Phone: Comment on above: Expected: 05/06/2023 , Expires: 08/05/2023 Start: 05-06-2023 End: 08-05-2023 Urinalysis complete panel - Urine URINALYSIS WITH MICROSCOPIC, REFLEX CULTURE Lab Routine Screening for blood or protein in urine Expected: 05/06/2023, Expires: 08/05/2023 [facility] Work Phone: Comment on above: Expected: 05/06/2023 , Expires: 08/05/2023 Start: 07-28-2022 ULTRASOUND, Provider : Jorge Chvaez, Status: Johnathan, Time: 9:00 AM ULTRASOUND, Provider: Jorge Chavez, Status: Johnathan, Time: 9:00 AM Saul Work Phone: Start: 07-28-2022 ULTRASOUND, Provider : Jorge Min , Status: Johnathan, Time: 9:00 AM ULTRASOUND, Provider: Mannie Min Status: Johnathan, Time: 9:00 AM [facility] Work Phone: Start: 05-31-2022 DEPRESSION ASSESSMENT DEPRESSION ASS [facility] Start: 03-02-2022 End: 03-16-2022 SARS-CoV-2 (COVID-19) RNA [Presence] in Respiratory specimen by ENID with probe detection [facility] Work Phone: Comment on above: Expected: 03/02/2022 , Expires: 03/16/2022 Start: 01-29-2022 Influenza vaccination INFLUENZA (#1) [facility] Start: 12-11-2021 Patient encounter procedure ANNUAL, Provider: Nathalia Lou, Status: Johnathan, Time: 1:[address] [facility] [address] Work Phone: Start: 09-08-2021 End: 09-22-2021 Influenza virus A and B RNA and SARS-CoV-2 (COVID-19) N gene panel - Respiratory specimen by ENID with probe detection [facility] Work Phone: Comment on above: Expected: 09/08/2021 , Expires: 09/22/2021 Start: 07-23-2021 ULTRASOUND, Provider : Jorge Chavez, Status: Johnathan, Time: 9:00 AM ULTRASOUND, Provider: Jorge Chavez, Status: Johnathan, Time: 9:00 AM OP-Gkeyvto-Uargwqns SJW 240 DO Work Phone: Start: 06-25-2021 ULTRASOUND, Provider : Jorge Chavez, Status: Johnathan, Time: 10:00 AM ULTRASOUND, Provider: Jorge Chavez, Status: Pen, Time: 10:00 AM IB-Ibbxgiihouyq-Rlkdpw 210 Work Phone: Start: 06-16-2021 VIRFUVHOME, Provider : Tameka Sampson, Status: Johnathan, Time: 3:20 PM VIRFUVHOME, Provider: Tameka Sampson, Status: Pen, Time: 3:20 PM NI-Lefuqjoocfzy-Nybdcf 210 Work Phone: Start: 05-31-2021 [facility]PRESSION ASSESSMENT [facility] Start: 01-22-2021 NPV, Provider: Tameka Sampson, Status: Pen, Time: 11:00 AM NPV, Provider: Tameka Sampson, Status: Pen, Time: 11:00 AM AN-Fdmyzxnyikda-Gvhfyl 210 Work Phone: Start: 01-13-2021 [id number], Provider : Km Saravia, Status: Pen, Time: 11:30 AM [id number], Provider: Km Saravia, Status: Pen, Time: 11:30 AM NJ-Xhgewuuiqjnw-Hlgrxi ke Work Phone: Start: 12-12-2020 Patient encounter procedure ANNUAL, Provider: Nathalia Lou, Status: Pen, Time: 11:30 AM EX-Tmalpbxokoqt-Xqiofg 210 Work Phone: Start: 08-10-2019 Colonoscopy COLONOSCOPY [facility] Start: 08-10-2019 COLORECTAL CANCER SCREENING COLORECTAL CANCER SCREENING [facility] Start: 2018 RSV Vaccine (1 - 1-d ose 60+ series) RSV Vaccine (1 - 1-dose 60+ series) [facility] Start: 2008 Pneumococcal Vaccine : 50+ (1 of 1 - PCV) Pneumococcal Vaccine: 50+ (1 of 1 - PCV) [facility] Start: 2008 SHINGRIX VACCINE (1 of 2) SHINGRIX VACCINE (1 of 2) [facility] Start: 03-09-2008 Mammography MAMMOGRAM [facility] Start: 2003 COLOGUARD (FIT-DNA) COLOGUARD (FIT-D NA) [facility] Start: [address] COLONOGRAPHY [facility] Start: 2003 DIABETES SCREEN DIABETES SCREEN [facility] Start: 2003 FECAL OCCULT BLOOD FECAL OCCULT BLOO D [facility] Start: 2003 LIPID SCREEN LIPID SCREEN [facility] Start: 2003 Screening for malign ant neoplasm of colon [facility] Start: 2003 SIGMOIDOSCOPY SIGMOIDOSCOPY [facility] Start: 1988 HPV TESTING HPV TESTING [facility] Start: 1988 Screening for malign ant neoplasm of cervix HPV Testing [facility] Start: 1979 PAP TESTING PAP TESTING [facility] Start: 1979 Screening for malign ant neoplasm of cervix Pap Testing [facility] Start: 1977 Urine microalbumin profile DTAP,TDAP,TD (1 - Tdap) [facility] Start: 1976 Anxiety Screening Anxiety Screening [facility] Start: 1976 Depression Screening Depression Scre ening [facility] Start: 1976 HEPATITIS C SCREENING HEPATITIS C SC REENING [facility] Start: 1976 HIV SCREENING HIV SCREENING [facility] Start: 1970 Adult depression screening assessment DEPRESSION SCREENING [facility] BACH SCREENING TEST BACH SCREENI NG TEST Procedures Routine Brain fog Ordered: 11/30/2024 [facility] Comment on above: Ordered: 11/30/2024 Bacteria identified in Urine by Culture URINE CULTURE Microbiology Routine Burning with urination Ordered: 11/13/2023 [facility] Comment on above: Ordered: 11/13/2023 CYTOLOGY NON-ELECTRIC TRAIN DRIVER CYTOLOGY NON-GY N Lab Routine Multiple thyroid nodules Ordered: 07/15/2023 [facility] Work Phone: Comment on above: Ordered: 07/15/2023 DXA Skeletal system.axial Views for bone density DXA-AXIAL SKELETON Radiology Routine Post-menopausal 07/27/2023 10:18 AM EST [facility] Work Phone: End: 06-04-2024 DXA-AXIAL SKELETON DXA-AXIAL SKELETON Radiology Routine Post-menopausal 1 Occurrences starting 05/06/2023 until 06/04/2024 [facility] Work Phone: Comment on above: 1 Occurrences starti ng 05/06/2023 until 06/04/2024 End: 11-30-2025 ECG COMPLETE ECG COMPLETE ECG Routine Shortness of breath 1 Occurrences starting 11/30/2024 until 11/30/2025 [facility] Comment on above: 1 Occurrences starti ng 11/30/2024 until 11/30/2025 End: 11-30-2025 Echocardiography ECHO Cardiology Routine Shortness of breath 1 Occurrences starting 11/30/2024 until 11/30/2025 [facility] Comment on above: 1 Occurrences starti ng 11/30/2024 until 11/30/2025 End: 01-16-2026 EGD DIAGNOSTIC EGD DIAGNOSTIC Endoscopy Routine Gastroesophageal reflux disease, unspecified whether esophagitis present LUQ discomfort 1 Occurrences starting 01/16/2025 until 01/16/2026 [facility] Work Phone: Comment on above: 1 Occurrences starti ng 01/16/2025 until 01/16/2026 ENDO THYROID/LYMPH N ODE FNA ENDO THYROID/LYMPH NODE FNA Procedures Routine Multiple thyroid nodules Ordered: 07/15/2023 [facility] Work Phone: Comment on above: Ordered: 07/15/2023 End: 12-30-2025 LUNG DIFFUSION CAPACITY (DLCO) LUNG DIFFUSION CAPACITY (DLCO) PFT Routine Shortness of breath 1 Occurrences starting 11/30/2024 until 12/30/2025 [facility] Comment on above: 1 Occurrences starti ng 11/30/2024 until 12/30/2025 LUNG DIFFUSION CAPAC ITY (DLCO) LUNG DIFFUSION CAPACITY (DLCO) PFT Routine Shortness of breath 12/21/2024 10:08 AM EDT [facility] Work Phone: End: 12-30-2025 LUNG VOLUMES LUNG VOLUMES PFT Routine Shortness of breath 1 Occurrences starting 11/30/2024 until 12/30/2025 [facility] Comment on above: 1 Occurrences starti ng 11/30/2024 until 12/30/2025 LUNG VOLUMES LUNG VOLUMES PFT Routine Shortness of breath 12/21/2024 10:08 AM [facility] Work Phone: MG Breast - bilatera l Screening [facility] End: 12-28-2025 Polysomnogram POLYSOMNOGRAM (PSG) Procedures Routine Primary obstructive sleep apnea of 1 Occurrences starting 12/28/2024 until 12/28/2025 [facility] Work Phone: Comment on above: 1 Occurrences starti ng 12/28/2024 until 12/28/2025 Pulmonary rehabilitation pro CONSULT PULMONARY REHABILITATION PROGRAM Procedures Routine Dyspnea and respiratory abnormalities Post-acute sequelae of COVID-19 (PASC) Ordered: 12/29/2024 [facility] Work Phone: Comment on above: Ordered: 12/29/2024 End: 12-30-2025 SIX MINUTE WALK SIX MINUTE WALK PFT Routine Shortness of breath 1 Occurrences starting 11/30/2024 until 12/30/2025 [facility] Comment on above: 1 Occurrences starti ng 11/30/2024 until 12/30/2025 End: 12-30-2025 SPIROMETRY - BASELINE AND POST DILATOR SPIROMETRY - BASELINE AND POST DILATOR PFT Routine Shortness of breath 1 Occurrences starting 11/30/2024 until 12/30/2025 [facility] Comment on above: 1 Occurrences starti ng 11/30/2024 until 12/30/2025 SPIROMETRY - BASELIN E AND POST DILATOR SPIROMETRY - BASELINE AND POST DILATOR PFT Routine Shortness of breath 12/21/2024 10:08 AM EDT [facility] Work Phone: UA DIP, URINE (POC) UA DIP, URIN E (POC) Lab Routine Burning with urination Ordered: 11/13/2023 [facility] Work Phone: Comment on above: Ordered: 11/13/2023 US Kidney - bilatera l and Urinary bladder [facility] End: 06-04-2024 Us soft tissue head & neck real time imge docm US THYROID/PARATHYROID Radiology Routine Thyroid nodule 1 Occurrences starting 05/06/2023 until 06/04/2024 [facility] Work Phone: Comment on above: 1 Occurrences starti ng 05/06/2023 until 06/04/2024 End: 09-18-2024 XR HIP BILATERAL 5V PEL/AP/LAT EACH HIP XR HIP BILATERAL 5V PEL/AP/LAT EACH HIP Radiology Routine Bilateral hip pain 1 Occurrences starting 08/20/2023 until 09/18/2024 [facility] Work Phone: Comment on above: 1 Occurrences starti ng 08/20/2023 until 09/18/2024 QM-DXBMN-Hrrjrv ke 2420 DO Work Phone: [facility] NEGATED: Highlighted row has been ruled out! Planned Goals not documented CW-TRKZV-Hkuicgws 2420 DO Work Phone: Immunizations Immunization Date Immunization Notes Care Provider Homer garza 07-02-2024 tetanus toxoid, redu ezequiel diphtheria toxoid, and acellular pertussis vaccine, adsorbed Ozzie Louis MD Work Phone: [facility] 02-04-2024 influenza virus vaccine, unspecified formulation Taqueria Vieira MD Work Phone: [facility] 04-30-2023 influenza virus vaccine, unspecified formulation [employer] Work Phone: [facility] 03-24-2022 influenza, injectabl e, quadrivalent, preservative free Piero Ortiz Work Phone: [facility] Work Phone: 02-26-2022 Pfizer COVID-19 Vac Bivalent 30 MCG/0.3ML Intramuscular Suspension Piero Ortiz Work Phone: [facility] Work Phone: 04-21-2021 Pfizer-BioNTech COVID-19 Vacc 30 MCG/0.3ML Intramuscular Suspension Piero Ortiz Work Phone: [facility] [place] [address] Work Phone: 02-13-2021 influenza, injectabl e, quadrivalent, preservative free; Translations: [Fluarix Quadrivalent 0.5 ML Intramuscular Suspension Prefilled Syringe] Piero Ortiz Work Phone: LF-Vxrryqigcwyp-Konj an 210 Work Phone: Comment on above: Series: 08-10-2020 Pfizer-BioNTech COVID-19 Vacc 30 MCG/0.3ML Intramuscular Suspension Piero Ortiz Work Phone: DM-Vlvqjmiqgflt-Hxrw an 210 Work Phone: 07-22-2020 Pfizer-BioNTech COVID-19 Vacc 30 MCG/0.3ML Intramuscular Suspension Piero Ortiz Work Phone: HQ-Wukpmhoktawv-Dbqk an 210 Work Phone: 02-16-2020 influenza, injectabl e, quadrivalent, preservative free; Translations: [Flulaval Quadrivalent 0.5 ML Intramuscular Suspension Prefilled Syringe] Piero Ortiz MP-[facility]SP[facility]-N [place] [address] Work Phone: Comment on above: Series: 03-28-2018 influenza, injectabl e, quadrivalent, preservative free Piero Mcdonoughsse Work Phone: AF-Fbczmwxizplk-Gyyx an 210 Work Phone: 03-18-2016 influenza, seasonal, injectable; Translations: [Fluzone SUSP] Piero Angel RIVERARU-IAQGU-Ygdldyia 2420 DO Work Phone: Comment on above: Series: 02-26-2015 influenza, injectabl e, quadrivalent, preservative free; Translations: [Fluzone Quadrivalent 0.5 ML Intramuscular Suspension] Piero RIVERAKQ-ZFELW-Aqldykei 2420 DO Work Phone: Comment on above: Series: 03-05-2014 influenza, injectabl e, quadrivalent, preservative free; Translations: [Fluzone Quadrivalent 0.5 ML Intramuscular Suspension] Piero RIVERAHK-DLHFE-Yakcjxrl 2420 DO Work Phone: Comment on above: Series: 11-24-2013 tetanus toxoid, redu ezequiel diphtheria toxoid, and acellular pertussis vaccine, adsorbed Piero Ortiz Work Phone: FN-Yzdazpkrfpiy-Fmfd an 210 Work Phone: 10-20-2013 hepatitis B vaccine, adult dosage Piero Ortiz Work Phone: TP-Ljknsbshtlfn-Ecvu an 210 Work Phone: 06-02-2013 hepatitis B vaccine, adult dosage Piero Ortiz Work Phone: ET-Wctbqjrmlihb-Xtzw an 210 Work Phone: 04-14-2013 hepatitis B vaccine, pediatric or pediatric/adolescent dosage Piero Ortiz Work Phone: OK-Pfdcylqgjxqi-Ahik an 210 Work Phone: 03-01-2013 influenza, injectabl e, quadrivalent, preservative free Piero Ortiz Work Phone: WI-Gcnycacftlwc-Uncq an 210 Work Phone: 02-17-2012 influenza virus vaccine, unspecified formulation Piero Ortiz Work Phone: OS-Jdsvkzsqdesb-Davo an 210 Work Phone: Comment on above: Series: 02-17-2012 influenza, seasonal, injectable Piero Ortiz CR-HHNKO-Jdcdweer 2420 DO Work Phone: 02-13-2011 influenza virus vaccine, unspecified formulation Piero Ortiz Work Phone: CA-Hcchnpgrgtcr-Wqit an 210 Work Phone: Comment on above: Series: 02-13-2011 influenza, seasonal, injectable Piero Ortiz IG-BZUON-Dziragfo 2420 DO Work Phone: 04-17-2010 influenza virus vaccine, unspecified formulation Piero Ortiz Work Phone: CL-Qeyqbxhmpwdd-Rwmn an 210 Work Phone: Comment on above: Series: 04-17-2010 influenza, seasonal, injectable Piero rOtiz ZO-SYTZL-Bjnepkez 2420 DO Work Phone: Payers Date Payer Category Payer Self-pay 2023 Medicare [id number] 2023 Private Health Insurance [id number] 2023 Medicare [id number] 2023 Unknown [id number] 2021 Unknown 2021 Unknown [id number] 1958 Unknown [id number] 2.16. [id number] 1958 Unknown [id number] 2.16.8 40.1.558136.3.579.2.1069 1958 Unknown [id number] 2.16.8 40.1.867043.3.579.2.159 1958 Unknown [id number] 2.16.8 40.1.732737.3.579.2.159 Unknown [id number] 2.16.8 40.1.755564.3.579.2.243 Unknown [id number] 2.16.8 40.1.517223.3.579.2.243 Unknown [id number] 2.16.8 40.1.686773.3.579.2.243 Unknown [id number] 2.16.8 40.1.042970.3.579.2.243 Unknown [id number] 2.16.8 40.1.894873.3.579.2.243 Unknown [id number] Unknown [id number] 2.16.8 40.1.373624.3.579.2.462 Unknown [id number] 2.16.8 40.1.788734.3.579.2.462 Unknown [id number] 2.16.8 40.1.358276.3.579.2.462 Unknown [id number] 2.16.8 40.1.313570.3.579.2.462 Unknown [id number] 2.16.8 40.1.551336.3.579.2.462 Unknown [id number] 2.16.8 40.1.541690.3.579.2.462 Unknown [id number] 2.16.8 40.1.811477.3.579.2.462 Unknown [id number] 2.16.8 40.1.937119.3.579.2.462 Unknown [id number] 2.16.8 40.1.086816.3.579.2.462 Unknown [id number] 2.16.8 40.1.006558.3.579.2.462 Unknown [id number] 2.16.8 40.1.175396.3.579.2.462 Unknown [id number] 2.16.8 40.1.610045.3.579.2.462 Unknown [id number] 2.16.8 40.1.657736.3.579.2.462 Unknown [id number] 2.16.8 40.1.788326.3.579.2.462 Unknown [id number] 2.16.8 40.1.342798.3.579.2.462 Unknown [id number] 2.16.8 40.1.024069.3.579.2.462 Unknown [id number] 2.16.8 40.1.677501.3.579.2.462 Unknown [id number] 2.16.8 40.1.315958.3.579.2.462 Social History Date Type Detail Facility Start: 05-05-2020 End: 05-06-2023 Never smoker Never smoker [facility] 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; Start: 01-08-2022 End: 03-02-2025 Tobacco smoking status NHIS Never smoked tobacco [facility] Start: 09-08-2021 End: 11-30-2024 Alcohol intake Current drinker of alcohol (finding) [facility] Start: 1960 Sex Assigned At Not on file [facility] Start: 08-29-2021 End: 09-08-2021 Exposure to SARS-CoV-2 (event) Not sure [facility] Start: 01-08-2022 End: 07-22-2023 Tobacco use and exposure Smokeless tobacco non-user [facility] Start: 05-05-2020 End: 05-06-2023 Tobacco use panel [facility] Start: 05-01-2012 National Score (1-100), lower number is lower risk Not on file [facility] Has the electric, gas, oil, or water company threatened to shut off services in your home in past 12Mo No [facility] Are you now , , , , never or living with a partner? [facility] How often to you hav e a drink containing alcohol? Monthly or less [facility] How many standard drinks containing alcohol do you have on a typical day? 1 or 2 [facility] How often do you hav e 6 or more drinks on 1 occasion? Never [facility] Do you feel stress - tense, restless, nervous, or anxious, or unable to sleep at night because your mind is troubled all the time - these days [OSQ] Only a little [facility] (I/We) worried whether (my/our) food would run out before (I/we) got money to buy more. Never true [facility] History of tobacco use Passive smoker [facility] Start: 1960 Sex Assigned At Female W [facility] Tobacco smoking status NHIS Unknown if ever smoked [facility] Work Phone: Start: 08-22-2024 Sex Female (finding) [facility] Start: 12-07-2024 Gender identity Identifies as female gender (finding) [facility] Start: 01-16-2025 Alcoholic beverage intake Ex-drinker (finding) [facility] NEGATED: Highlighted row - Never smoker UF-WDITU-Bwftvfbh 2420 DO Work Phone: Goals Date Patient Goal Desired Activity /State Functional Status Date Assessment Result Facility 01-16-2025 Total score [AUDIT-C] 0 01/17/20 25 11:06 AM Amanda Sorenson MA [facility] NEGATED: Highlighted row Functional performance Functional status health issues are not documented Disease KT-PTAGW-Xmtfonmz 2420 DO Work Phone: Mental Status Date Assessment Result Facility 03-08-2025 Cognitive function Level Of Cons ciousness Sedated [facility] Work Phone: 03-08-2025 Cognitive function Voice/Name [facility] Work Phone: NEGATED: Highlighted row Cognitive function [Interpretation] Cognitive status health issues are not documented Disease NS-MQPJC-Sfohwnsn 2420 DO Work Phone: Clinical Notes 12-06-2006 to 03-29-2025 Patient Janina Coulter PA-C - 01/16/2025 11:01 AM EDT Note Date & Type Note Facility 03-29-2025 Note HNO ID: [id number] Author: ?, ?, ? Service: ? Author Type: Licensed Nurse Type: Progress Notes Filed: 03/29/2025 14:28 Note Text: Patient was offered sooner appt but not with physician she had planned to establish care with. Would like to have appt with that Dr scheduled again. Patient taken to schedulers to assist with appt. Pina Szymanski LPN [facility] 03-13-2025 Progress note [facility] 03-13-2025 Note HNO ID: [id number] Author: ADARSH CAMACHO APRN.ROADSIDE MECHANIC Service: ? Author Type: Nurse Practitioner Type: [...] media PAST SURGICAL HISTORY Procedure Laterality Date COLOGUARD 2024 Negative COLONOSCOPY 01/27/2021 EAR SURGERY HX Right [...] media. - Refer to ENT within the [facility] for further evaluation and management. - Advised against unnecessary use of antibiotics and steroids to avoid resistance and immunosuppression, especially during respiratory season. and Recording using [employer] software for draft documentation of the visit was discussed with the patient/authorized herbicide service sales representative; all questions welcomed and answered. Patient/authorized herbicide service sales representative agreed to proceed History and Record Review External record(s) reviewed: prior outpatient record. Findings from review of outpatient records: Previous medical history. Disposition The patient was discharged. OTC Medications were advised: Continue Flonase and antihistamines (more content not included)... [facility] 03-08-2025 Consult note [facility] 03-08-2025 Consult note [facility] 03-08-2025 Procedure note [facility] 03-08-2025 Procedure note [facility] 03-08-2025 Consult note [facility] 03-08-2025 History and physi todd note [facility] 03-08-2025 Note [facility] Medical Records Department [address] [place] [address] History Physical Exam 03/08/25 0633 MR#: [id number] Acct: [id number] Name: TIFFANIE RAMSEY Rep #: [id number] : 1960 64 From: Chuck Friend DO PCP: Dr. Bello Davenport MD [place] [facility] [place] [address] HPI - General General Date of Admission: 03/08/25 Date of Service: 03/08/25 Chief Complaint: Abdominal pain HPI Narrative [ TIFFANIE RAMSEY, is a 64 F who presents for concerns regarding LUQ abdominal pain. She states that the pain is intermittent and "travels but seems to settle in that area until a BM gives relief." She states that she's had multiple colonoscopies and states that nothing is ever seen in this area. She reports fatigue and difficulty "stomaching" her supplements ever since her COVID infection fall of . She reports participating in a clinic for "long COVID." She has a chronic "sinus infection" along with complaints of heartburn, excessive gas, [...] recent travel out of the country. ] [facility] Medical History Arthritis High cholesterol Injury [...] 64 F w (more content not included)... [facility] 02-22-2025 Note HNO ID: [id number] Author: TAQUERIA VIEIRA MD Service: ? 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 Elizabeth, in [place]; no records available. - Seen by sleep medicine, Dr. Gibson, in [place]; sleep study ordered but not yet completed. - Seen by geriatrics, Dr. Tabor, for evaluation of brain fog. - Consulted psychology for cognitive behavioral therapy. - Tiffanie was unable to tolerate low-dose naltrexone; experienced adverse effects. - Tried a medication starting with "M-O-D"; initially felt energetic but experienced severe fatigue [...] media PAST SURGICAL HISTORY Procedure Laterality Date COLOG2024 Negative COLONOSCOPY 01/27/2021 EAR SURGERY HX Right EGD W/O [facility] SPEC VARICIES INJ 10-12 years ago FAMILY [...] 10.6 mg/dL (elevated) - Remainder: Unremarkable - [place] Check: 3.2 (mildly (more content not included)... [facility] 02-07-2025 Note HNO ID: [id number] Author: ?, ?, ? Service: ? Author Type: ? Type: Progress Notes Filed: 02/07/2025 10:07 Note Text: Spoke with patient to reschedule her EGD with MAC at [facility] / [place] [facility] is not able to do her procedure per Dr. Lambert. Patient will be going to [facility] for her procedure Elza Bryce [facility] 01-23-2025 Note HNO ID: [id number] Author: JEREMY SCHAEFFER MD Service: ? Author Type: Physician Type: Progress Notes Filed: 01/23/2025 13:47 Note Text: 01/23/2025 Even LDN 0.4 mg daily caused abdominal pain side effects. Stopped LDN. Instead, we will try following for 3 weeks, then do a virtual appt. NAC 1,000 mg daily L-carnitine 1,000 mg daily [facility] 01-16-2025 Instructions Janina Miranda PA-C - [...] esophageal reflux, by following the tips above. Ylnv-vgp-tdopipv liquid antacids can also help in treating [...] involves blocking acid production in the stomach. Oobv-bft-ohedscd medicines, such as Tums , Rolaids , [...] correct the disorder. documented in this encounter [facility] 01-16-2025 Note HNO ID: [id number] Author: JANINA MIRANDA PA-C Service: ? Author Type: Physician Test Deskman Type: Progress Notes Filed: 01/16/2025 11:48 Note [...] 2020 normal exam, no specimens Latest Ref Rn 11/30/2024 WBC 3.70 - 11.00 k/uL 6.47 [...] Abs Lymph 1.00 - 4.00 k/uL 1.42 Carroll% % 6.6 Abs Carroll <0.87 k/uL 0.43 Eosin% % 2.8 Abs [...] 90 mcg/actuation inhale (more content not included)... [facility] 01-16-2025 History of Present illness Narrative [...] Abs Lymph 1.00 - 4.00 k/uL 1.42 Carroll% % 6.6 Abs Carroll <0.87 k/uL 0.43 Eosin% % 2.8 Abs [...] media PAST SURGICAL HISTORY Procedure Laterality Date COLOGUARD 2024 Negative COLONOSCOPY 01/27/2021 EAR SURGERY HX Right [...] Examination: BP 118/80 Pulse 72 Ht 5' 2.72" (1.59m) Wt 135 lb 12.8 oz (61.6kg) [...] to identify potential dietary triggers. Recording using [employer] software for draft documentation of the visit was discussed with the patient/authorized herbicide service sales representative; all questions welcomed and answered. Patient/authorized herbicide service sales representative agreed to proceed I spent a total of 30 minutes on the date of the service which included preparing to see the patient, onyl-gz-tlmv patient care, completing clinical documentation, obtaining and/or [...] Drug use: Never documented in this encounter [facility] 01-15-2025 History and physi todd note Note Date/Time January 15, 2025 6:54pm [facility] Pulmonary Rehab Reports [address] [place] [address] [place] - History & Physical MR#: [id number] Acct: [id number] Name: TIFFANIE RAMSEY Rep #:[id number] : 1960 64 From: Renzo Marquez BS, [...] Do you have a Healthcare Power of Behavioral Health Worker?: Yes Living Will: Yes Advance Directives Information Provided: Yes Advance Directives on File: No DNR Order?:: No Past Medical History Covid-19 Screening Physicial Symptoms Other Clinical Concerns Exposure Risk Pertinent Comorbidities 65 years or older:: Yes Has a chronic lung disease or moderate to severe asthma:: Yes Medical History Past Medical History (Updated 12/26/24 @ 09:59 by Lise Araya NP, DRY HEAT ROOM ATTENDANT-C) Long COVID U09.9 Left shoulder pain M25.512 [...] 108 01/12/25 1121 <Electronically signed by Renzo ED RVT> Date _ Rnezo DE RVT Outcome assessment reviewed. Exercise plan approved as documented. Treatment plan and goals support patient needs/abilities. Continue with current plan. I certify the patient demonstrates improvement and remains willing and capable of participation. the patient continues to benefit from pulmonary services/training. The patient may continue at current intensity, endurance andmodality and progress per protocol. 01/15/25 8738<Electronically signed by Reno Ga MD> Cosigner Signature: Date Reno Ga MD CC: ~ Signed [facility] Work Phone: 1(160) 927-459108-18-2025 History and physical note [facility] Pulmonary Rehab Reports [address] [place] [address] [place] - History & Physical MR#: [id number] Acct: [id number] Name: TIFFANIE RAMSEY Rep #:[id number] : 1960 64 From: Renzo Marquez BS, [...] Do you have a Healthcare Power of Behavioral Health Worker?: Yes Living Will: Yes Advance Directives Information Provided: Yes Advance Directives on File: No DNR Order?:: No Past Medical History Covid-19 Screening Physicial Symptoms Other Clinical Concerns Exposure Risk Pertinent Comorbidities 65 years or older:: Yes Has a chronic lung disease or moderate to severe asthma:: Yes Medical History Past Medical History (Updated 12/26/24 @ 09:59 by Lise Araya NP, DRY HEAT ROOM ATTENDANT-C) Long COVID U09.9 Left shoulder pain M25.512 [...] 1121 er BS, RVT> Date _ Renzo Jimmy BS, RVT Outcome assessment reviewed. Exercise plan approved [...] Date Reno Ga MD CC: ~ Signed [facility]08-13-2025 NoteHNO ID: [id number] Author: JEREMY SCHAEFFER MD Service: ? Author Type: Physician Type: Progress Notes Filed: 01/10/2025 16:00 Note Text: 01/10/2025 LDN 1.5 mg caused strong abdominal pain. Tried 2 times (few days apart) but happened again. She wants to stop it. I asked her to try quarter tablet (0.4 mg) per day. If same issue happens, we can try NAC+L-carnitine.[facility] 01-10-2025 Telephone encounter Note* Telephone Encounter - Yu Mccormack RN - 01/10/2025 12:05 PM EDT Faxed polysomnogram order to Dr. Gibson per pt request. . Pt reports she has an appt with him on 01/22/25. [facility]08-13-2025 Miscellaneous Notes* Telephone Encounter - Yu Mccormack RN - 01/10/2025 12:05 PM EDT Faxed polysomnogram order to Dr. Gibson per pt request. . Pt reports she has an appt with him on 01/22/25. documented in this encounterW[facility] Telephone encounter Note * Telephone Encounter - Macho Baeza LPN - 01/01/2025 1:13 PM EDT Patient calling. At [facility] trying to get scheduled for Pulmonary Rehab. They are asking for documentation for Shortness of Breath. Please fax order whatever testing (had breathing tests done on 12/21) showed this to [facility] at [phone]. PFT results from 12/21 faxed to [facility] via [employer] [facility]08-04-2025 Miscellaneous Notes* Telephone Encounter - Macho Baeza LPN - 01/01/2025 1:13 PM EDT Patient calling. At [facility] trying to get scheduled for Pulmonary Rehab. They are asking for documentation for Shortness of Breath. Please fax order whatever testing (had breathing tests done on 12/21) showed this to [facility] at [phone]. PFT results from 12/21 faxed to [facility] via [employer] documented in this encounterW[facility]08-01-2025 Instructions* Patient Instructions* Ashley Lynn MD [...] - I recommend starting pulmonary rehab at [facility] to help retrain your breathing and improve your endurance. I have provided a referral and a printed prescription for this program. 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 - Use your albuterol inhaler as needed for shortness of breath. A new prescription has been sent [facility] ([facility]). We discussed your fatigue, insomnia, and brain [...] bring up your nausea symptoms with your public works laborer during your upcoming appointment. Follow-Up: - You have a heart ultrasound scheduled for January 12. This will help evaluate any potential post-COVID effects on your heart. - You are scheduled to see your oven attendant, Dr. Maria, at the [facility], and your primary care physician, [...] adjust the appointment. Please reach out through [employer] if you have any questions or concerns before your next visit. documented in this encounterW[facility] History of Present illness Narrative* Ashley [...] OF DYSPNEA and PASC 19 Recording using ambient [employer] software for draft documentation of the visit was discussed with the patient/authorized herbicide service sales representative; all questions welcomed and answered. Patient/authorized herbicide service sales representative agreed to proceed HPI: Tiffanie Ramsey is a 64-year-old female, with a history of COVID-19 infection in February 2022, presenting with post-COVID concerns, including dyspnea, fatigue, and insomnia. Tiffanie reports significant changes in her health status following a COVID-19 infection in February 2022. Prior to the infection, she describes herself as very active, often referred to as the "Energizer Bunny." However, since the infection, she has experienced [...] to walk at her previous brisk pace "nearly did her in." She describes a pattern of energy depletion, stating that [id number] each day, she feels as though her "battery runs out of charge," necessitating rest. This f atigue has been [...] She describes her current sleep issues as "torture" and notes that they have been ongoing [...] 12/15/2024 Neut% 62.0 12/15/2024 Lymph% 24.1 12/15/2024 Carroll% 8.2 12/15/2024 Eosin% 3.6 12/15/2024 Baso% 1.7 12/15/2024 Abs Neut (ANC) 3.32 12/15/2024 Abs Carroll 0.44 12/15/2024 Abs Eosin 0.19 12/15/2024 Abs [...] 36 SPIROMETRY - BASELINE AND POST DILATOR ([id number]) - ordered on 12/21/24 PRE-BRONCH POST-BRONCH Bianca [...] 90-100 1.28 54 FIVC 3.05 2.94 -3 ATL13-04 2.35 0.93 1.94 3.35 120 0.53 1.36 [...] Post Recovery Blood Pressure 159.3 cm (5' 2.72") 60.3 kg (133 lb) Forehead 133/81 136/71 _ Distance Walked (meters) Distance Walked (feet) Female Predicted Walk Distance (feet) Female Lower Limit of Normal (feet) Female % Predicted Total Duration Of The Stops (seconds) 391.67 1285 1586.29 1130.29 81 -- XR CHEST 2V FRONTAL/LAT Result Date: 11/30/2024 IMPRESSION: No acute radiographic abnormality. Clay Dry Press Operator: SAUNDRA Transcribe Date/Time: Nov 30 2024 7:46P [...] relief. - Referred to pulmonary rehabilitation at [facility]. 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 documented in this encounterW[facility]08-01-2025 NoteHNO ID: [id number] Author: ASHLEY LYNN MD Service: ? Author [...] OF DYSPNEA and PASC 19 Recording using [employer] software for draft documentation of the visit was discussed with the patient/authorized herbicide service sales representative; all questions welcomed and answered. Patient/authorized herbicide service sales representative agreed to proceed HPI: Tiffanie Ramsey is a 64-year-old female, with a history of COVID-19 infection in February 2022, presenting with post-COVID concerns, including dyspnea, fatigue, and insomnia. Tiffanie reports significant changes in her health status following a COVID-19 infection in February 2022. Prior to the infection, she describes herself as very active, often referred to as the "Energizer Bunny." However, since the infection, she has experienced [...] to walk at her previous brisk pace "nearly did her in." She describes a pattern of energy depletion, stating that by [id number] each day, she feels as though her "battery runs out of charge," necessitating rest. This fatigue has been present [...] She describes her current sleep issues as "torture" and notes that they have been ongoing [...] day for 3 days, (more content not included)...[facility]07-31-2025 Instructions* Patient Instructions* Anna Tabor MD [...] additional questions or concerns. documented in this encounterW[facility]07-31-2025 NoteHNO ID: [id number] Author: ANNA TABOR MD Service: ? Author Type: Physician Type: Progress Notes Filed: 12/28/2024 14:59 Note Text: [facility] Initial Consult Tiffanie Ramsey [...] reports difficulty sleeping, describing her mind as "racing" with thoughts when she tries to sleep. [...] or hoarding: NO Social History: Primary language: Scottish Marital Status: Living situation: Home w/ Spouse Socially engaged? (participates in activities such as clubs, denominational, community center, sports, games, visiting friends/relatives, etc?): YES Caregiver [place] and Stress Are your feeling overwhelmed? YES [...] Authorizing Provider Priscilla Louis (more content not included)...[facility]07-31-2025 History of Present illness Narrative* Anna Tabor MD - 12/28/2024 11:32 AM EDT [facility] Initial Consult Tiffanie Ramsey [...] reports difficulty sleeping, describing her mind as "racing" with thoughts when she tries to sleep. [...] or hoarding: NO Social History: Primary language: Scottish Marital Status: Living situation: Home w/ Spouse Socially engaged? (participates in activities such as clubs, denominational, community center, sports, games, visiting friends/relatives, etc?): YES Caregiver [place] and Stress Are your feeling overwhelmed? YES [...] Date , Taking? , Authorizing Provider Provider, [facility] Medication methylPREDNISolone (MEDROL DOSE-PACK) 4 mg Dose-Pack, Sig take by mouth as directed on inside of package Patient not taking: Reported on 11/30/2024, Start Date 06/29/24, End Date , Taking? , Authorizing Provider Provider, [facility] Other OTC med/supplements: None Medication Review: - [...] vision impairment and wears glasses Follows with phone screener:YES Hearing - Hearing aid : Denies any [...] NO Shuffling: NO Tremors: NO Slowness: NO Homer Cognitive Exam (MOCA): CDR Dementia Scale 1) [...] any unintended typographical errors. Anna Tabor MD [facility] documented in this encounterW[facility]umedicine [facility]07-29-2025 Evaluation note* Diagnosis Onset Date Resolution Status Admit Date Atrophic vaginitis acute November 292024 8:55am Encounter for routine gynecological examination noneactive November 292024 8:55am [facility] Work Phone: 1(458) 873-923707-29-2025 Evaluation note* Diagnosis Onset Date Resolution Status Admit Date Atrophic vaginitis acute November 292024 8:55am Encounter for routine gynecological examination noneactive November 292024 8:55am Abdominal pain acute February 5:26am Gas bloat syndrome acute Octobe r 2024 5:26am [facility] Work Phone: 1(743) 541-124307-29-2025 Evaluation note* Diagnosis Onset Date Resolution Status [...] tract infection acute O ctober 2024 12:37pm [facility] Work Phone: 1(810) 706-693107-24-2025 NoteHNO ID: [id number] Author: GAIL PANG RPFT Service: ? Author [...] Post Recovery Blood Pressure 159.3 cm (5' 2.72") 60.3 kg (133 lb) Forehead 133/81 136/71 [...] Ramsey DATE: December 21, 2024 TIME: 11:20 [facility]07-24-2025 Procedure note* Gail Pang RPFT - 12/21/2024 [...] Post Recovery Blood Pressure 159.3 cm (5' 2.72") 60.3 kg (133 lb) Forehead 133/81 136/71 [...] DATE: December 21, 2024 TIME: 11:46 AM [facility]07-24-2025 Procedure note* Gail Pang RPFT - [...] Post Recovery Blood Pressure 159.3 cm (5' 2.72") 60.3 kg (133 lb) Forehead 133/81 136/71 [...] 2024 TIME: 11:46 AM documented in this encounterWvumedicine [facility]07-23-2025 Telephone encounter Note * Telephone Encounter - Hollie Abreu MA - 12/20/2024 9:48 AM EDT Results from Provider have been read by patient on 12/19/24 at 5:21 pm. Hollie Abreu MA [facility]07-23-2025 Miscellaneous Notes* Telephone Encounter - Hollie [...] normal. Vitamin D normal. documented in this encounterWvumedicine [facility]07-23-2025 History of Present illness Narrative* Jeremy [...] consultation (Dept of Wellness & Preventive Medicine, [facility]) I have communicated my name and active licensure. The patient's identity and physical location wereverified at the time of this visit. Either the patient or their legal herbicide service sales representative has been informed of the [...] Around September 2023, she received shingle vaccine [place] "very ill" for 3 days but these got better [...] which included preparing to see the patient, elww-sb-dtfl patient care, completing clinical documentation, obtaining and/or reviewing separately obtained history, performing a medically appropriate examination, counseling and educating the pat ient/family/caregiver, and ordering medications, tests, or procedures. Jeremy Schaeffer MD 12/20/2024 documented in this encounterWvumedicine [facility]07-23-2025 NoteHNO ID: [id number] Author: JEREMY SCHAEFFER MD Service: ? Author [...] consultation (Dept of Wellness AND Preventive Medicine, [facility]) I have communicated my name and active licensure. The patient's identity and physical location were verified at the time of this visit. Either the patient or their legal herbicide service sales representative has been informed of the [...] Around September 2023, she received shingle vaccine [place] "very ill" for 3 days but these got better [...] Age of Onset Hypothyro (more content not included)...[facility]07-22-2025 Progress note* Result Encounter Note - Maddie Martínez APRN.CNP - 12/19/2024 9:42 AM EDT Ionized calcium 1/100s of over normal. Will continue to monitor. Red blood count improving. Parathyroid normal. Vitamin D normal. [facility] Work Phone: 1(813) 341-476307-07-2025 Telephone encounter Note* Telephone Encounter - Rosalind Bergeron RN - 12/04/2024 10:04 AM EDT Called patient. Reviewed below results and recommendations to drink more fluids and get labs drawn in 1-2 weeks, order in chart. Pt is agreeable. Rosalind Bergeron RN Per communication to nursing: Taqueria Vieira MD 12/04/2024 9:11 AM EDT Did not bead picker her my chart note, see below. Also her bach test was good. No definite signs of significant cognitive impairment." Message to patient: Written by Taqueria Vieira [...] or my chart us with any questions. Dr Dariel Da Silva" [facility]07-07-2025 Miscellaneous Notes* Telephone Encounter - Rosalind Bergeron RN - 12/04/2024 10:04 AM EDT Called patient. Reviewed below results and recommendations to drink more fluids and get labs drawn in 1-2 weeks, order in chart. Pt is agreeable. Rosalind Bergeron RN Per communication to nursing: Taqueria Vieira MD 12/04/2024 9:11 AM EDT Did not bead picker her my chart note, see below. Also her bach test was good. No definite signs of significant cognitive impairment." Message to patient: Written by Taqueria Vieira [...] or my chart us with any questions. Dr Dariel Da Sliva" documented in this encounterWvumedicine [facility]07-07-2025 Telephone encounter Note * Telephone Encounter [...] Culp, Yumiko TW, Lauren RL, Kai YAZAN, Jeoy JT, Dee AH. The PHQ- 8 as a [...] clinical practice. J Neurol. 2023Nov 01. doi: 10.1007/p55336-771-81710-2. Epub ahead of print. PMID: [id number]. [facility] Work Phone: 1(835) 927-486607-07-2025 Miscellaneous Notes* Telephone Encounter - Taqueria Vieira [...] the absence of cognitive impairment [1] Abelino Culp Yumiko TW, Lauren RL, Kai YAZAN, Joey JT, Dee AH. The PHQ- 8 as a [...] clinical practice. J Neurol. 2023Nov 01. doi: 10.1007/l03799-937-59868-5. Epub ahead of print. PMID: [id number]. documented in this encounterWvumedicine [facility]07-03-2025 NoteHNO ID: [id number] Author: TAQUERIA VIEIRA MD Service: ? Author [...] adn vaccines. - Describes feeling like her "battery will not stay charged." - Energy levels significantly decrease around 14:00 daily. - Denies ever returning to baseline energy levels post-infection. - Reports feeling "lethargic" and "exhausted," with symptoms exacerbated by stress. - Nocturnal [...] Brain Fog: - Onset of cognitive difficulties iegi-ZCNXV-19 infection. - Experiences intermittent episodes of "brain fog," with occasional days of clarity. - Describes feeling like "brain fog girl" on bad days. Arthralgias: - New onset of joint pain in knees and shoulders since COVID-19 infection. - Reports worsening of symptoms over time. - Has received cortisone injection in the shoulder with temporary relief. Gastrointestinal Issues: - Onset of gastrointestinal discomfort [id number] infection. - Experiences abdominal cramps when taking [...] Alopecia: - Recent onset of alopecia. - Counter Top Maker recommended returning to the clinic for further [...] of emesis and severe illness post-vaccination. - Counter Top Maker recommended returning to the clinic for further evaluation. Anxiety: - New onset of anxiety symptoms [id number]-15 infection. - Describes feeling "agitated" and "irritable" after taking Wellbutrin, which was discontinued. - [...] loss of smell Cardiovasc (more content not included)...[facility]07-03-2025 History of Present illness Narrative* Taqueria [...] adn vaccines. - Describes feeling like her "battery will not stay charged." - Energy levels significantly decrease around 14:00 daily. - Denies ever returning to baseline energy levels post-infection. - Reports feeling "lethargic" and "exhausted," with symptoms exacerbated by stress. - Nocturnal [...] Brain Fog: - Onset of cognitive difficulties [id number]-01 infection. - Experiences intermittent episodes of "brain fog," with occasional days of clarity. - Describes feeling like "brain fog girl" on bad days. Arthralgias: - New onset of joint pain in knees and shoulders since COVID-19 infection. - Reports worsening of symptoms over time. - Has received cortisone injection in the shoulder with temporary relief. Gastrointestinal Issues: - Onset of gastrointestinal discomfort [id number]-PHRWJ-07 infection. - Experiences abdominal cramps when taking [...] Alopecia: - Recent onset of alopecia. - Counter Top Maker recommended returning to the clinic for further [...] of emesis and severe illness post-vaccination. - Counter Top Maker recommended returning to the clinic for further evaluation. Anxiety: - New onset of anxiety symptoms [id number]-OWFCM-73 infection. - Describes feeling "agitated" and "irritable" after taking Wellbutrin, which was discontinued. - [...] 11/06/2023 Mammogram Screening due on 12/25/2023 Covid-19 Vaccine( season) due on 01/30/2024 Advance Directive Discussion due on 05/31/2024 Medicare Annual Wellness Visit due on 06/08/2024 LAB REVIEWED: Labs: - Cologuard: Normal result Tests: - Biopsy: No abnormalities reported Imaging: - Echocardiogram: No abnormal findings reported VITALS: BP 120/83 Pulse 86 Temp 36.7 C (98 F) (Oral) Ht 160.4 cm (5' 3.15") Wt 61.1 kg (134 lb 11.2oz) SpO2 [...] trace elements, CRP, BNP, D-dimer, ferritin, and Hollywood-check. - Scheduled EKG and chest X-ray. - [...] Brain fog (R41.89) - Cognitive impairment noted [id number]-YPYJG-54 infection. - Ordered BACH cognitive test to be completed at home. - Referred to geriatrics for comprehensive cognitive evaluation. 9. Myalgia (M79.10) 10. Arthralgia, unspecified joint (M25.50) 11. Knee pain, unspecified chronicity, unspecified laterality (M25.569) - Musculoskeletal pain, including myalgia and arthralgia, noted xkyy-FUCUC-37 infection. - Consider referral to rheumatology if [...] additional instructions to patient) Taqueria Vieira MD Body Trimmer Upholsterer [facility] [phone] Recording using [employer] software for draft documentation of the visit was discussed with the patient/authorized herbicide service sales representative; all questions welcomed and answered. Patient/authorized herbicide service sales representative agreed to proceed * Taqueria [...] received the COVID Vaccine? YES. Which vaccine? [place] COVID-19 Symptom Review Was ill for roughly [...] 1 year to get shingles vaccine. Tolerated 5331-4262 season influenza vaccine. Recent/previously completed testing since [...] deferred at this time. documented in this encounterWvumed[facility]07-03-[facility]25 Instructions* Patient Instructions* Taqueria Vieira MD - 11/30/2024 10:53 AM EDT - Complete the at-home BACH cognitive test sent to your [employer] account and return results when prompted. - Have blood and urine drawn for the long COVID panel: Complete blood count (CBC) and metabolic panel (CMP) Thyroid (TSH) Vitamin B12 and folate Vitamin D C-reactive protein (CRP) B-type natriuretic peptide (BNP) D-dimer Ferritin Hollywood-check (fatty acid profile) - Undergo these in-office tests before you leave today: Electrocardiogram (EKG) Chest X-ray - Schedule and complete these additional studies (you may do them at [place] if easier): Echocardiogram (heart ultrasound) Pulmonary function tests and six-minute walk with pulse oximetry (breathing tests) - Arrange specialist visits for further evaluation: Geriatrics for a detailed cognitive assessment (can be scheduled in [place]) Gastroenterology for chronic digestive issues Pulmonology for ongoing shortness of breath and exercise intolerance Cardiology for heart evaluation after your echo A wellness medicine admissions consultant to discuss anti-inflammatory diet options and [...] results and next steps. documented in this encounterWvumedicine [facility]07-03-2025 NoteHNO ID: [id number] Author: TAQUERIA VIEIRA MD Service: ? Author Type: Physician Type: Progress Notes Filed: 11/30/2024 11:28 Note Text: Note was copied and pasted, without alteration from Aicha Ben's visit of 05/22: Description of their course [...] received the COVID Vaccine? YES. Which vaccine? [facility] COVID-19 Symptom Review Was ill for roughly [...] 1 year to get shingles vaccine. Tolerated 7087-5226 season influenza vaccine. Recent/previously completed testing since [...] Wellness (Integrative medicine) -- deferred at this time.[facility]06-10-2025 Telephone encounter Note* Telephone Encounter - Glenny Mercado LPN - 11/07/2024 3:56 PM EDT Notified patient that at this time this is the soonest even when I look for a "physical" slot. Advised her would add to wait list. [facility] Miscellaneous Notes* Telephone Encounter - Glenny Mercado LPN - 11/07/2024 3:56 PM EDT Notified patient that at this time this is the soonest even when I look for a "physical" slot. Advised her would add to wait list. * Telephone Encounter - Maria Elena Junior - 11/07/2024 8:52 AM EDT Patient calling in to establish care with Dr. Vieira. Patient is scheduled for his first patient access spot in May. Her , Jorge is a current patient with [facility] practice. Patient is asking if he would make an exception to see her sooner since her is already a patient. Please review and advise. Maria Elena Junior November 07, 2024 8:53 AM documented in this encounterWvumedicine [facility] Hospital06-10-2025 Telephone encounter Note * Telephone Encounter - Maria Elena Junior - 11/07/2024 8:52 AM EDT Patient calling in to establish care with Dr. Vieira. Patient is scheduled for his first patient access spot in May. Her , Jorge is a current patient with [facility] practice. Patient is asking if he would make an exception to see her sooner since her is already a patient. Please review and advise. Maria Elena Junior November 07, 2024 8:53 AM [facility]05-08-[facility]25 Evaluation note* Diagnosis Onset Date Resolution Status Admit Date Gas bloat syndrome acute September 10:17am Heartburn symptom acute September 10:17am Atrophic vaginitis acute November 292024 8:55am Encounter for routine gynecological examination noneactive November 292024 8:55am [facility] Work Phone: 1(721) 482-716004-16-2025 Telephone encounter Note* Telephone Encounter - Maira Neville - 09/13/2024 10:38 AM EDT Patient scheduled with Dr. Vieira on 10/19/2024 [facility]04-16-[facility] Miscellaneous Notes* Telephone Encounter - Maira [...] to: self Call patient at: at home [phone] (home) [phone] (cell) Payor: MEDICARE / Plan: MEDICARE A AND B / Product Type: Medicare / Jose Banegas documented in this encounterWvumedicine [facility]04-14-2025 Telephone encounter Note * Telephone Encounter - Taqueria Vieira MD - 09/11/2024 12:11 PM EDT We can have her see me [facility] Work Phone: 1(743) 292-723904-14-2025 Miscellaneous Notes* Telephone Encounter - Taqueria Vieira MD - 09/11/2024 12:11 PM EDT We can have her see me * Telephone Encounter - Rosalind Bergeron RN - 09/11/2024 11:14 AM EDT Consult 05/20/23 with Yumiko Contreras APRN.ROADSIDE MECHANIC Follow up: scheduled with Dr. Vieira 10/19/24 Call transferred to [facility] nurse, pt returning call to make appointment with [facility] I started to assist to schedule her, but reviewed chart and she had been seen in [facility] [id number] for one visit. 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 I reviewed with patient that [facility] is not intended place to be seen for Vaccine reactions, as discussed during initial appointment Pt state she doesn't think her problem is vaccine reactions. She states her immune system was "messed up" by Covid and that is what is causing her issues with vaccines and symptoms. She states she is"at the end of her rope" and can't think of anyone else to help her. Offered her appointment to discuss with Dr. Vieira, scheduled for 10/19/24, but also said I would forward chart to review with Dr. Olguin and we would contact if any further questions or if appointment needed to be canceled after review, patient was appreciative. documented in this encounterWvumedicine [facility]04-14-2025 Telephone encounter Note * Telephone Encounter - Rosalind Bergeron RN - 09/11/2024 11:14 AM EDT Consult 05/20/23 with Yumiko Contreras APRN.ROADSIDE MECHANIC Follow up: scheduled with Dr. Vieira 10/19/24 Call transferred to [facility] nurse, pt returning call to make appointment with [facility] I started to assist to schedule her, but reviewed chart and she had been seen in [facility] [id number] for one visit. Pt states she had Covid in 03/21 with symptoms lasting 6 months and since has had 2 vaccines which started custodial symptoms (fatigue, brain fog, not sleeping ,dizziness). I reviewed with patient that [facility] is not intended place to be seen for Vaccine reactions, as discussed during initial appointment Pt state she doesn't think her problem is vaccine reactions. She states her immune system was "messed up" by Covid and that is what is causing her issues with vaccines and symptoms. She states she is"at the end of her rope" and can't think of anyone else to help her. Offered her appointment to discuss with Dr. Vieira, scheduled for 10/19/24, but also said I would forward chart to review with Dr. Olguin and we would contact if any further questions or if appointment needed to be canceled after review, patient was appreciative. [facility]04-14-[facility] Telephone encounter Note* Telephone Encounter - Maira Neville - 09/11/2024 10:46 AM EDT 1st attempt: LVM to schedule first appt with covid recovery - can be in person or virtual 2nd attempt: Sent MC message with number to schedule [facility]04-14-2025 Telephone encounter Note* Telephone Encounter - Maira Neville - 09/11/2024 10:46 AM EDT ----- Message from Jose Nelson sent at 09/08/2024 2:07 PM EDT ----- Regarding: Covid recovery Patient has been identified by name and Date of : Yes Patient: Tiffanie Ramsey Date of : 1960 Provider for this encounter : Daryl Davenport MD Reason for call: Cvid Was an appointment scheduled: No Reason for requesting visit (RFV/signs and symptoms/diagnosis) : Fatigue, Brain fog, not sleeping ,Dizziness Person calling: self Return call to: self Call patient at: at home [phone] (home) [phone] (cell) Payor: MEDICARE / Plan: MEDICARE A AND B / Product Type: Medicare / Jose Erwinble [facility]04-11-2025 NoteHNO ID: [id number] Author: OZZIE LOUIS MD Service: ? Author [...] Past Histories independently gathered by the clinical call center support consultant and the remaining scribed note accurately describes my personal service to and examination of the patient. Ozzie Louis [facility]04-11-2025 History of Present illness Narrative* Ozzie [...] Past Histories independently gathered by the clinical call center support consultant and the remaining scribed note accurately describes my personal service to and examination of the patient. Ozzie Louis MD documented in this encounterWvumedicine [facility]04-03-2025 Evaluation note* Diagnosis Onset Date Resolution Status Admit Date Left shoulder pain acute August 31, 2024 10:03am Gas bloat syndrome acute September 82024 10:17am Heartburn symptom acute September 10:17am Encounter for routine gynecological examination noneactive November 292024 8:55am [facility] Work Phone: [phone] Telephone encounter Note* Telephone Encounter - Shona Barton - 11/15/2023 8:03 AM EDT Patient verbally understands urine might have been contaminated. Patient understands and states shedoes feel worse today and is going to contact her PCP. Shona Barton [facility]06-17-2024 Miscellaneous Notes* Telephone Encounter - Shona [...] for repeat urine culture. documented in this encounterWvumedicine [facility]06-16-2024 Telephone encounter Note * Telephone Encounter - Antoinette Cody MA - 11/14/2023 2:33 PM EDT Left message for pt to call back. Antoinette Cody MA [facility]06-16-2024 Telephone encounter Note* Telephone Encounter - Ryanne Mcconnell PA - 11/14/2023 2:21 PM EDT Please let patient know urine revealed mixed bacteria, may indicate contamination. If symptoms are persisting, needs follow-up with PCP for repeat urine culture. [facility] Work Phone: 1(163) 480-970506-15-2024 History of Present illness Narrative* Leatha Torres APRN.CNP - 11/13/2023 10:00 AM EDT This note was created using [employer]. Subjective Tiffanie Ramsey is a 63 year [...] avoid caffeine and carbonated beverages. Leatha Torres APRN.GIANNA documented in this encounterWvumedicine [facility]05-06-2024 Instructions* Patient Instructions* Nathalia Nugent APRN.CNP - 10/04/2023 3:23 PM EDT [facility] ADDRESS: [address] [place], [place] [id number] PHONE: [phone] FOLLOW UP: Call your primary care provider [...] ?Observation ?A combination of the above The "best" treatment depends on the child's age, history [...] tubes in the ears. documented in this encounterWvumedicine [facility]05-06-2024 History of Present illness Narrative* Nathalia Nugent APRN.CNP - 10/04/2023 3:21 PM EDT SWETHA Ramsey is a 63 year old female. [...] Tympanic) Resp 18 Ht 157.5 cm (5' 2") Wt 58.2 kg (128 lb 4.9 oz) [...] plan Follow up with PCP Nathalia Nugent APRN.ROADSIDE MECHANIC documented in this encounterWvumedicine [facility]05-03-2024 History of Present illness Narrative* Demetris Garcia, PT - 10/01/2023 10:21 AM EDT Images [...] Planned: 8 Planned Treatment Interventions: Therapeutic exercise (32736), Neuromuscular re- education (39403), Manual therapy (31633), Therapeutic activities (05118), Self- residential management (83784), Patient/Family/Caregiver Education PLAN FOR NEXT VISIT: Opening [...] 1100 Demetris Garcia PT documented in this encounterWvumedicine [facility]04-11-2024 History of Present illness Narrative* Mirella Sanchez PA-C - 09/09/2023 11:44 AM EDT Mirella Sanchez PA-C Department of Orthopaedics Orthopaedics [address] [address] Dept: [phone] September 09, 2023 CHIEF COMPLAINT: New and [...] is retired but does a lot of [place] [employer] [place] work. ASSESSMENT: M25.552 Pain in left hip [...] old in no apparent distress. Gen:Ht 5' 2" (1.58m) Wt 128 lb 1.4 oz (58.1kg) [...] described. Hip joint spaces are maintained bilaterally. Clay Dry Press Operator: PSCB Transcribe Date/Time: Sep 09 2023 4:36P [...] MORE PAIN IN HER LEFT HIP (accession [id number]), DEGENERATIVE DISC DISEASE OF LUMBAR (accession [id number]) CLINICAL INFORMATION ( PROVIDED BY ORDERING CLINICIAN) [...] daily. azelastine 0.1% nasal spray Use 1 [place] in each nostril two times a day. [...] anxiety) This note was partially generated using [employer] voice recognition system, and there may be some incorrect words, spellings, and punctuation that were not noted in checking the note before saving. Mirella Sanchez PA-C documented in this encounterWvumedicine [facility]ville Hospital04-11-2024 History of Present illness Narrative* Madeline [...] PATIENT PRESENTS WITH AN IMPLANTABLE OR ATTACHED WEAVER HAND: No RADIOLOGY DEPARTMENT: General X-ray: Exam(s) [...] PATIENT PRESENTS WITH AN IMPLANTABLE OR ATTACHED WEAVER HAND: No RADIOLOGY DEPARTMENT: General X-ray: Exam(s) Completed: Spine X-Ray(s): Lumbar AP / LAT / L5-S1 PERIPHERAL IV DATA: Not applicable SIGNED BY: Huey Whiting September 09, 2023 11:49 AM documented in this encounterWvumedicine [facility] Hospital03-07-2024 History of Present illness Narrative* Alli Hutchinson MD, PhD - 08/05/2023 1:36 PM EST SUBJECTIVE: HISTORY OF PRESENT ILLNESS Patient presents with: Ear Problem: Est. B/l ear pressure, tinnitus and crackling. Denies otalgia and otorrhea. Mouth/Lip Problem: Tongue feels burnt. From visit 2019: Ear Problem: New. former pt 2013. Lt ear ear aches intermittantly since Jul. [...] Alli Hutchinson MD, PhD documented in this encounterWvumedicine [facility] Hospital02-28-2024 Miscellaneous Notes* Telephone Encounter - Glendy Motta MA - 07/28/2023 1:23 PM EST Patient is informed Glendy Motta MA * Telephone Encounter - Glendy Motta MA - 07/28/2023 1:21 PM EST ----- Message from Jeremy Ramirez APRN.ROADSIDE MECHANIC sent at 07/28/2023 12:21 PM EST ----- [...] drinks, and alcoholic beverages. documented in this encounterWvumedicine Barnesville Hospital02-27-2024 History of Present illness Narrative* Jose [...] PATIENT PRESENTS WITH AN IMPLANTABLE OR ATTACHED WEAVER HAND: No RADIOLOGY DEPARTMENT: Bone Density PERIPHERAL IV DATA: Not applicable SIGNED BY: SERA Garrison) July 27, 2023 10:19 AM documented in this encounterWvumedicine Barnesville Hospital02-27-2024 NoteHNO ID: [id number] Author: JOSE RAFAEL PALOMO RT (R) Service: [...] PATIENT PRESENTS WITH AN IMPLANTABLE OR ATTACHED WEAVER HAND: No RADIOLOGY DEPARTMENT: Bone Density PERIPHERAL IV DATA: Not applicable SIGNED BY: RT Meli(R) July 27, 2023 10:19 [facility]02-22-2024 Instructions* Patient Instructions* Angel Catherine APRN.CNP - 07/22/2023 10:17 AM EST ASSESSMENT/PLAN: 1. [...] MG-POTASSIUM CLAVULANATE 125 MG TABLET Angel Catherine APRN.CNP -I have reviewed and updated with the [...] any other concerning symptoms documented in this encounterWvumedicine [facility]ville Hospital02-22-2024 History of Present illness Narrative* Angel Catherine APRN.CNP - 07/22/2023 10:04 AM EST This note was created using [employer]. Subjective Tiffanie Ramsey is a 63 year [...] Sinus: Maxillary sinus tenderness present. Mouth/Throat: Lips: E. Lopez. Mouth: Mucous membranes are moist. Pharynx: Oropharynx [...] MG-POTASSIUM CLAVULANATE 125 MG TABLET Angel Catherine APRN.ROADSIDE MECHANIC -I have reviewed and updated with the [...] any other concerning symptoms documented in this encounterWvumedicine [facility]02-15-2024 Instructions* Patient Instructions* Dominique Fisher MD [...] office for an update. documented in this encounterWvumedicine [facility]ville Hospital02-15-2024 History of Present illness Narrative* Dominique Fisher MD - 07/15/2023 1:17 PM EST Fine Needle Aspiration(FNA) Biopsy of thyroid nodule Tiffanie Ramsey was identified by name and date, acknowledges here to have a Fine Needle Aspiration(FNA) of left sided lower thyroid nodule performed. Risks, benefits and alternatives D/W patient by: Dr Fisher Time/Date: July 15, 2023 1:17 PM PCP: Jeremy Ramirez APRN. ROADSIDE MECHANIC Seen by me for initial consultation on 05/25/2023 for multinodular [...] results. Dominique Fisher MD Endocrinology Associate Staff [facility] Endocrinology and Metabolism [place] documented in this encounterWvumedicine Barnesville Hospital12-13-2023 Miscellaneous Notes* Telephone Encounter - Jenny Van MA - 05/12/2023 12:04 PM EST Pt called she is willing to start a statin that can be sent to [facility] [place] Jenny Van MA * Telephone Encounter - Jenny Van MA - 05/11/2023 4:14 PM EST Called pt left Vm with results and for pt to call the office back to let us know if she is interested in taking a statin Jenny Van MA * Telephone Encounter - Jenny Van MA - 05/11/2023 4:13 PM EST ----- Message from Jreemy Ramirez APRN.ROADSIDE MECHANIC sent at 05/09/2023 7:25 PM EST ----- UA unremarkable Vit D Is low. If she is taking vit D I want her to increase her dose by 1000 units daily Lipids TC and LDL bad chol is very elevated. I recommend a statin Hiv and hep c neg Cbc and cmp wnl Thyroid wnl Inflammation markers normal, RF negative documented in this encounterWvumedicine Barnesville Hospital12-11-2023 History of Present illness Narrative* Madeline Hinojosa APRN.ROADSIDE MECHANIC - 05/10/2023 10:28 AM EST This note was created using [employer]ter. Subjective Tiffanie Ramsey is a 62 year [...] history is provided by the patient. No automobile leasing supervisor was used. Sinus Problem This is a [...] if symptoms persist or worsen. Madeline Hinojosa APRN.ROADSIDE MECHANIC documented in this encounterWvumedicine Barnesville Hospital12-07-2023 Instructions* Patient Instructions* Jeremy Ramirez APRN.ROADSIDE MECHANIC - 05/06/2023 10:36 AM EST BONE MINERAL [...] - C-REACTIVE PROTEIN (CRP) - SED RATE [facility] - RHEUMATOID FACTOR BL 4. Vitamin D [...] URINALYSIS WITH MICROSCOPIC, REFLEX CULTURE Jeremy Ramirez APRN.ROADSIDE MECHANIC documented in this encounterWvumedicine Barnesville Hospital12-07-2023 History of Present illness Narrative* Jeremy Ramirez APRN.ROADSIDE MECHANIC - 05/06/2023 10:18 AM EST This note was created using [employer]ter. Subjective Tiffanie Ramsey is a 62 year old female here today for concerns regarding fatigue. Previous PCP Dr Piero Teixeira at . [facility] COVID, vertigo, thyroid nodules. She does not [...] an occasional cough. She has appt with [facility] COVID program on 05/18/23. She does take flonase nasal spray as needed. Thyroid nodule: reports she follows with endo. She has an appt with [facility] medical technologist hematology to establish care with DR Fisher on 05/25/23. Vertigo: states she will have an episode about once a month. She does at home Dina which relieves her symptoms. Preventative: she completed her flu and COVID vaccines. She is getting her RSV shot today at pharmacy. Last colonoscopy 3 yrs ago. She reports she goes every 5 yrs. She goes to [facility] [place]. Had pap in November. She [...] (Oral) Resp 18 Ht 157.5 cm (5' 2") Wt 59.8 kg (131 lb 12.8 oz) [...] tenderness or frontal sinus tenderness. Mouth/Throat: Lips: E. Lopez. Mouth: Mucous membranes are moist. Pharynx: Oropharynx [...] as [facility]. Thyroid nodule - ICD9: 241.0, [...] URINALYSIS WITH MICROSCOPIC, REFLEX CULTURE Jeremy Ramirez APRN.CNP documented in this encounterWvumedicine [facility]ville Hospital01-04-2023 Miscellaneous Notes* Telephone Encounter - Nelida [...] for elisha ear pain on 05-29 in with no improvement. One ear still feels plugged and the other ear had pain yesterday. Reports the doxycycline is causing abdominal bloating and pain, and occassional dizziness. Reports she missed a dose and these symptoms went away. Asking if provider in would send amoxicillin to her pharmacy, [facility] in [place]. States this usually works for her. Please advise patient. documented [facility] History of Present illness Narrative* Lissette Kolb APRN.ROADSIDE MECHANIC - 05/29/2022 8:42 AM EST CC: Patient [...] plan. Lissette Kolb APRN.GIANNA documented in this encounterW[facility]10-04-2022 Miscellaneous Notes* Telephone Encounter - Yadi Giles LPN - 03/03/2022 9:39 AM EDT Patient notified and verbalized understanding of instructions given.Yadi Giles LPN * Telephone Encounter - Yadi Giles LPN - 03/03/2022 9:39 AM EDT ----- Message from Muna Carias APRN.ROADSIDE MECHANIC sent at 03/03/2022 9:15 AM EDT ----- [...] virtual appointment or schedule an appointment with [facility]. documented in this encounterW[facility]10-[facility] History of Present illness Narrative* Fred Her MD - 03/02/2022 7:31 PM EDT Patient presents with: Covid19 Concern: Exposure, ALVARADO, nasal congestion, ELISHA ear pain, faitgue x1 week HPI: Feeling sick for 3 days. Her has COVID currently. She tested positive today. Positive symptoms: Earache, Nasal Congestion, Rhinorrhea, Malaise, Fatigue, Headache, Cough, Sore throat, Chills, Negative symptoms: Shortness of breath, Fever, Vomiting, Diarrhea, OTC: Mucinex, tylenol. Had fourth dose of Yapert COVID-19 vaccine February 26 (bivalent booster). 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 PowerPractical 1756 DO Work Phone: 1(455) 861-904406-11-2022 History of Present illness Narrative* Patient comes [...] 2 out of 10 and sporadic but "burping" helps. * 06/30/2021 * Patient comes in today for evaluation of left lower quadrant pain. Since she was here in April 2020 a lot has happened in her life. She retired last year and remarried on 09/29/2020 and moved to [place], [place] with her . 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 * 01/16/2020 * Patient is seen today [...] upper quadrant. She is back to her [place] [employer] job at the school and she is [...] debris blew into her right eye and "scratched it". She comes in today complaining of irritation of the right eye. She denies photophobia with that eye. * 09/04/2019 * Patient is seen today as a telemedicine visit rendered via realtime interactive audio/video caydenydarian as we are currently in the middle of a coronavirus pandemic worldwide with pujt-iz-[id number] orders by the government. She is using [...] been to work. 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 * 02/15/19 * [...] being treated for this problem. Note for "Vertigo": In talking to the patient further about her symptoms seem to be related mostly to changes in position. 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 MP-WSPC-N Nesha Inveni Work Phone: 1([phone]) 842-238804-12-2022 Miscellaneous Notes* Telephone Encounter - Yadi Giles LPN - 09/09/2021 8:33 AM EDT Patient notified.Yadi Giles LPN * Telephone Encounter - Shahida Agarwal APRN.CNP - 09/09/2021 7:02 AM EDT Please notify of negative covid and influenza test. Continue comfort measures for symptoms as you would for a cold. Any worsening symptoms follow up with PCP or ER. Shahida Agarwal APRN.GIANNA documented in this encounterW[facility]04-11-2022 History of Present illness Narrative* Betzy Willis PA-C - 09/08/2021 12:28 PM EDT This note was created using Leanplumriter. Subjective Tiffanie Ramsey is a 61 year old female. HPI Patient presents with cough, sore throat, headache and sinus pressure over the past 3 weeks. She states her ears feel full as well. She has been using some Flonase and ppyv-uof-dwhtyzc cold medication. She states she really is [...] tenderness or frontal sinus tenderness. Mouth/Throat: Lips: E. Lopez. Pharynx: Oropharynx is clear. No pharyngeal swelling, [...] out Betzy Willis PA-C documented in this encounterW[facility]01-31-2022 History of Present illness Narrative* 06/30/2021 * Patient comes in today for evaluation of left lower quadrant pain. Since she was here in April 2020 a lot has happened in her life. She retired last year and remarried on 09/29/2020 and moved to [place], [place] with her . * Patient having [...] telemedicine visit rendered via realtime interactive audio/video paul as we are currently in the middle [...] been diagnosed in the past by the fire extinguisher technician and prescribed Protopic and tetracycline for the rash which usually relieves it. She is out of both and would like refills. 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 * 01/16/2020 * Patient is seen today as a telemedicine visit rendered via realtime interactive audio/video doxy.Vivakor as we are currently in the middle [...] upper quadrant. She is back to her [place] [facility] job at the school and she is [...] debris blew into her right eye and "scratched it". She comes in today complaining of irritation of the right eye. She denies photophobia with that eye. * 09/04/2019 * Patient is seen today as a telemedicine visit rendered via realtime interactive audio/video paul as we are currently in the middle of a coronavirus pandemic worldwide with rmag-zo-hfly orders by the government. She is using [...] been to work. 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 * 02/15/19 * [...] being treated for this problem. Note for "Vertigo": In talking to the patient further about her symptoms seem to be related mostly to changes in position. 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 MP-WSPC-N Lapwai 2099 Work Phone: 1(207) 529-561706-16-2021 History of Present illness NarrativeMs Gomez is a business school dean who presents today for evaluation of her [...] her shoulder or any pain down her arm.ZD-Maatsqsfdzrp-Pmklfxlu Work Phone: 1([phone]) 211-419412-01-2020 History of Present illness Narrative* Patient comes in today for evaluation of left lower quadrant pain. Since she was here in April 2020 a lot has happened in her life. She retired last year and remarried on 09/29/2020 and moved to [place], [place] with her . * Patient having [...] telemedicine visit rendered via realtime interactive audio/video doxy.Vivakor as we are currently in the middle [...] been diagnosed in the past by the fire extinguisher technician and prescribed Protopic and tetracycline for the rash which usually relieves it. She is out of both and would like refills. 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 * 01/16/2020 * Patient is seen today as a telemedicine visit rendered via realtime interactive audio/video doxy.Vivakor as we are currently in the middle [...] upper quadrant. She is back to her [place] [facility] [employer] job at the school and she is [...] debris blew into her right eye and "scratched it". She comes in today complaining of irritation of the right eye. She denies photophobia with that eye. * 09/04/2019 * Patient is seen today as a telemedicine visit rendered via realtime interactive audio/video doxy.Softricityervices as we are currently in the middle of a coronavirus pandemic worldwide with yrzm-ey-kpbb orders by the government. She is using [...] been to work. 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 * 02/15/19 * [...] being treated for this problem. Note for "Vertigo": In talking to the patient further about her symptoms seem to be related mostly to changes in position. 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 MP-WSPC-N Lapwai Inveni Work Phone: 1(995) 995-658507-09-2007 History of Past illness Narrative* Problem Noted Date Diagnosed Date Resolved Date Impacted cerumen 12/06/2006 07/13/2023 documented as of this encounter (statuses as of 07/15/2023) [facility] History of Past illness Narrative* Problem Noted Date Diagnosed Date Resolved Date Impacted cerumen 12/06/2006 07/13/2023 documented as of this encounter (statuses as of 07/21/2023) [facility] of Past illness Narrative* Problem Noted Date Diagnosed Date Resolved Date Impacted cerumen 12/06/2006 07/13/2023 documented as of this encounter (statuses as of 07/22/2023) [facility] of Past illness Narrative* Problem Noted Date Diagnosed Date Resolved Date Impacted cerumen 12/06/2006 07/13/2023 documented as of this encounter (statuses as of 07/28/2023) [facility] of Past illness Narrative* Problem Noted Date Diagnosed Date Resolved Date Impacted cerumen 12/06/2006 07/13/2023 documented as of this encounter (statuses as of 07/29/2023) [facility] of Past illness Narrative* Problem Noted Date Diagnosed Date Resolved Date Impacted cerumen 12/06/2006 07/13/2023 documented as of this encounter (statuses as of 08/05/2023) [facility] of Past illness Narrative* Problem Noted Date Diagnosed Date Resolved Date Impacted cerumen 12/06/2006 07/13/2023 documented as of this encounter (statuses as of 08/20/2023) [facility] of Past illness Narrative* Problem Noted Date Diagnosed Date Resolved Date Impacted cerumen 12/06/2006 07/13/2023 documented as of this encounter (statuses as of 09/10/2023) [facility] HospitalConsult note Author Umesh Graf [facility] Note Date/Time March 08, 2025 6: 37am [facility] Medical Records Department [address] [place] [address] Pre-Anesthesia Evaluation 03/08/25 0637 MR#: [id number] Acct: [id number] Name: TIFFANIE RAMSEY Rep #:[id number] : 1960 64 From: Umesh Graf MD PCP: Dr. Bello Davenport MD Status:REG S DC Y Race: C Location: [place] [address] ASA Classification* ASA Classification ASA Classification: 2 [...] 08/11/24, 11:01 Hgb, (12.0-15.0) 14.7 g/dL 08/11/24, 11:01 Hct, (37-47) 43.9 % 08/11/24, 11:01 Plt Count, (150-450) 296 K/mm3 08/11/24, 11:01 CHEMISTRY Potassium, (3.3-5.1) 4.4 mmol/L 08/11/24, 11: Sodium, (133-145) 140 mmol/L 08/11/24, 11:01 BUN, (4-19) 15 mg/dL 08/11/24, 11: Creatinine, (0.70-1.20) 0.75 mg/dL 08/11/24, 11: Glucose, (70-99) 88 mg/dL 08/11/24, 11:01 TSH, (0.300-4.200) 0.902 uIU/mL 08/11/24, 11: COAG Pre-Assessment Diagnosis/Proposed Procedure Planned Operative Procedure(s): EGD Anesthesia History 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: 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 Hx Hospitalization No 03/02/25 16:01 Any Problems [...] take am of surgery PONV PONV - reception centre manager: PONV - reception centre manager Female Yes 03/02/25 16:01 HX of Motion [...] 03/08/25 05:49 Respiratory Assessment Respiratory Assessment - reception centre manager: Respiratory Tract Infection Hx - reception centre manager Hx Respiratory Tract Infection No 03/02/25 16:01 STOP Sleep Apnea STOP Sleep Apnea - reception centre manager: STOP Sleep Apnea - reception centre manager Hx Hypertension No 03/02/25 16:01 Hx Sleep [...] Tobacco Use History Tobacco Use History - reception centre manager: Tobacco Use History - reception centre manager Tobacco Use Smoking Status Never smoker 03/02/25 16:01 Hx Tobacco Use No 03/02/25 16:01 Years Smoking Packs Smoked per Day Smoking Cessation Date was within the last 15 years Hx Smoking Cessation Date Hx Smoking Cessation Counseling Hematologic Medial History Hematologic Hx - reception centre manager: Hematologic Medical Hx - rn documentation Hx of Blood Transfusion No 03/02/25 16:01 Hx of Transfusion in last 3 No 03/02/25 16:01 Months Date of Last Transfusion (if within last 3 months) Ever experience any problems No 03/02/25 16:01 with transfusion(s)? Specify any problems Hx of Preganancy in last 3 No 03/02/25 16:01 Months Nurse Filling Out Transfusion MGRIFFITH 03/02/25 16:01 & Questions: Date: 03/02/25 03/02/25 16:01 Time: 16:03/02/25 16:01 Patient unable to answer at this time (ie. confused, unrespo /Reproduction History /Reproductive History - reception centre manager: /Reproductive Hx- reception centre manager Hx Now No 03/02/25 16:01 Gestational Age (in weeks): EDC: Hx Hx Para Hx Section SAB No 03/02/25 16:01 Active Medications Active Medications: Current Medications Generic Name Dose Route Start Last Admin Trade Name Randy PRN Reason Stop Dose Admin Lactated Ringer's [...] and no additional complaints, except as documented. 03/08/25636 <Electronically signed by Umesh Graf MD > Date _ Umesh Lebron Signature: Date CC: ~ Signed [facility] Work Phone: Consult note Author Jose Lopez [facility] Note Date/Time March 08, 2025 7: 05am [facility] Medical Records Department [address] [place] [address] Anesthesia Postop Eval I 03/08/25703 MR#: [id number] Acct: [id number] Name: TIFFANIE RAMSEY Rep #:[id number] : 1960 64 From: Jose Lopez PCP: Dr. Bello Davenport MD Status:REG S DC Y Race: C Location: [place] [address] Anesthesia: Postop Eval I Current Vital Signs [...] Jose Lebron Signature: Date CC: ~ Signed [facility] Work Phone: Consult note Author Umesh Graf [facility] Note Date/Time March 08, 2025 7: 20am [facility] Medical Records Department [address] [place] [address] Anesthesia Postop Eval II 03/08/25718 MR#: [id number] Acct: [id number] Name: TIFFANIE RAMSEY Rep #:[id number] : 1960 64 From: Umesh Graf MD PCP: Dr. Bello Davenport MD Status:REG S DC Y Race: C Location: [place] [address] Anesthesia Postop Eval I Sum Postop Eval [...] Pain Level: 0 nausea: No Vomiting: No 03/08/25719 <Electronically signed by Umesh Graf MD > Date _ Umesh Graf MD Cosigner Signature: Date CC: ~ Signed [facility] Work Phone: Evaluation note* Diagnosis Acute pansinusitis, recurrence not specified- Primary [facility] Acute COVID-19- Primary Acute otitis media, right Unspecified otitis media [facility]* Diagnosis Rhinosinusitis- Primary Unspecified sinusitis (chronic) [facility] Diagnosis Chronic fatigue- Primary Other malaise [...] unspecified cardiovascular conditions [facility]* Diagnosis Rhinosinusitis- Primary Unspecified sinusitis (chronic) Acute otitis media, bilateral Unspecified otitis media [facility]* Diagnosis Hyperlipidemia, unspecified hyperlipidemia type- Primary [facility]* Diagnosis Multiple thyroid nodules- Primary Nontoxic multinodular goiter [facility]* Diagnosis Nontoxic multinodular goiter- Primary [facility]* Diagnosis Acute sinusitis, recurrence not specified, unspecified location- Primary [facility]* Diagnosis Post-menopausal Asymptomatic postmenopausal status (age-related) (natural) [facility]* Diagnosis Nasal congestion- Primary Other diseases of nasal cavity and sinuses Glossitis Central perforation of tympanic membrane of left ear Central perforation of tympanic membrane [facility] noteNo assessment information availableWWilson Health Work Phone: Evaluation note* Diagnosis Bilateral hip pain- Primary Pain in joint, pelvic region and thigh [facility]* Diagnosis Pain in left hip- Primary Pain in joint, pelvic region and thigh DDD (degenerative disc disease), lumbar Degeneration of lumbar or lumbosacral intervertebral disc [facility]* Diagnosis Pain in left hip Pain in joint, pelvic region and thigh DDD (degenerative disc disease), lumbar Degeneration of lumbar or lumbosacral intervertebral disc [facility]* Diagnosis Acute otitis media, left- Primary Unspecified otitis media [facility]* Diagnosis Burning with urination- Primary Dysuria documented [facility]* Diagnosis Bilateral hip pain Pain in joint, pelvic region and thigh documented [facility]* Diagnosis Alopecia areata- Primary Vitamin D deficiency Unspecified vitamin D deficiency [facility]* Diagnosis Fatigue, unspecified type- Primary Post [...] Nontoxic multinodular goiter [facility]* Diagnosis Non-toxic multinodular goiter Nontoxic multinodular goiter documented in this encounter [facility] note* Diagnosis Shortness of breath documented [facility]* Diagnosis Shortness of breath [facility]* Diagnosis Shortness of breath documented [facility]* Diagnosis Brain fog- Primary Psychophysiological insomnia Persistent disorder of initiating or maintaining sleep Post covid-19 condition, unspecified Primary obstructive sleep apnea of Dyspnea and respiratory abnormalities- Primary Other dyspnea and respiratory abnormality Post-acute sequelae of COVID-19 (PASC) documented [facility]* Diagnosis Dyspnea and respiratory abnormalities- Primary Other dyspnea and respiratory abnormality Post-acute sequelae of COVID-19 (PASC) Chronic sinusitis, unspecified location Fatigue, unspecified type [facility] Diagnosis Chronic fatigue syndrome- Primary Brain fog Arthralgia, unspecified joint Post-acute sequelae of COVID-19 (PASC) [facility]* Diagnosis Gastroesophageal reflux disease, unspecified whether esophagitis present- Primary LUQ discomfort Abdominal pain, left upper quadrant Change in bowel habits Other symptoms involving digestive system [facility]* Diagnosis Hypercalcemia- Primary Polycythemia Polycythemia vera documented in this encounter [facility] and physical note Author Chuck Dalton [facility] Note Date/Time March 08, 2025 6: 35am [facility] Medical Records Department [address] [place] [address] History & Physical Exam 03/08/25 0633 MR#: [id number] Acct: [id number] Name: TIFFANIE RAMSEY Rep #:[id number] : 1960 64 From: Chuck Dalton DO PCP: Dr. Bello Davenport MD Status:REG S IN Location: [place] [address] HPI - General General Date of Admission: 03/08/25 Date of Service: 03/08/25 Chief Complaint: Abdominal pain HPI Narrative [ TIFFANIE RAMSEY, is a 64 F who presents for concerns regarding LUQ abdominal pain. She states that the pain is intermittent and "travels but seems to settle in that area until a BM gives relief." She states that she's had multiple colonoscopies and states that nothing is ever seen in this area. She reports fatigue and difficulty "stomaching" her supplements ever since her COVID infection fall of . She reports participating in a clinic for "long COVID." She has a chronic "sinus infection" along with complaints of heartburn, excessive gas, [...] recent travel out of the country. ] [facility] Medical History Arthritis High cholesterol Injury [...] to the office today for [facility] for concerns regarding LUQ abdominal pain. She has a chronic "sinus infection" along with complaints of heartburn, excessive gas, bloating and cramping in lower abdomen. Differential diagnoses include: gas bloat syndrome, IBS, GERD. Discussed care plan with her: * psyllium husk 1tsp PO daily * continue Miralax "cookie" PRN * BRAT diet x4wks * low FODMAP diet x4wks * office FU 5wks 03/08/25 0635 <Electronically signed by Chuck Dalton DO> Cosigner Signature (if applicable): CC: Dr. Bello Davenport MD; Chuck FriendDO~ Signed [facility] Work Phone: History of Present illness NarrativeShe feels well and has no complaints. She has not noted any change in her neck. She has gained 5 pounds since last visit.Saul Work Phone: History of Present illness Narrative* 62yo female presenting for annual visit. * Just tired. Just moved to [place]. * using vaginal estrogen once a week. * Diet: varied * Exercise: active with house work, working on exercise * Seatbelt: always * Safety: no concerns Naveed 6252 DO Work Phone: progress note Author Ally Bailey [facility] Note Date/Time March 13, 2025 1 :43pm [facility] [address], [address] [place] [address] OFFICE VISIT Date of Service: 03/13/25 MR#: [id number] Acct: [id number] Name: TIFFANIE RAMSEY Rep #: [id number] : 1960 Provider: Dr. Washington Bailey MD Age/Sex: 64/F Location: [facility] [email or web address] Status: Signed Intake Vital Signs 01/12/25 11:20 03/08/25 08:27 03/13/25 13:04 Height 5 ft 2 in 5 ft 2 in 5 ft 2 in Weight: 135 lb BMI 24.7 BP 106/74 Pulse 70 Intake Visit Reasons: FREQUENCY Chief Complaint: new patient for urinary frequency Church Worker Required: No Accompanied by: self Is patient [...] it too long Bladder scan PVR 25cc [facility] Medical History H/O urinary frequency Arthritis [...] home: Yes additional social history: - Jorge [facility] Chief Complaint: new patient for urinary [...] She has been noticing a vaginal odor "like a cat box." She has not had visible blood in [...] healthy appearing, comfortable and no acute distress [facility] Head: normocephalic and atraumatic Ears: hearing grossly [...] Lr on 5 13:01 Off Ur Spec [place] 1.005 Last Edit by Tanika Lr on [...] you fallen in the past year?: No 03/13/251851 <Electronically signed by Ally Bailey MD> Date _ Ally Bailey MD Cosigner Signature: Date (if applicable) CC: ~ [place] [facility] Work Phone: Reason for referral (narrative)* Diagnostic Procedure Only (Routine) - Pending Review Specialty Diagnoses / Procedures Referred By Conttristan t Referred To Contact US IMAGING Diagnoses Thyroid nodule Procedures US THYROID/PARATHYROID US SOFT TISSUE HEAD & NECK REAL TIME Jeremy Reynoso APRN.[employer] [address] [place] [address] Us Imaging [facility] Referral ID Status Reason Start Date Expiration Date Visits Requested Visits Authorized [id number] Pending Review Auto-Generat ed Referral 05/06/2023 06/04/2024 1 1 [facility] for referral (narrative)* Diagnostic Procedure Only (Routine) - Pending Review Specialty Diagnoses / Procedures Referred By Arley nelson Referred To Contact US IMAGING Diagnoses Nontoxic multinodular goiter Procedures US THYROID/PARATHYROID US SOFT TISSUE HEAD & NECK REAL TIME IMDominique Turner MD [address] [place] [address] [place] [address] Referral ID Status Reason Start Date Expiration Date Visits Requested Visits Authorized [id number] Pending Review Auto-Generat ed Referral 07/13/2024 08/19/2024 1 1 [facility] for referral (narrative)* Diagnostic Procedure Only (Routine) - Pending Review Specialty Diagnoses / Procedures Referred By Contac t Referred To Contact XR IMAGING Diagnoses Bilateral hip pain Procedures XR HIP BILATERAL 5V PEL/AP/LAT EACH HIP RADEX HIPS BILATERAL WITH PELVIS MINIMUM 5 VIEWS Mirella Sanchez PA-C [address] [place] [address] [place] [address] Referral ID Status Reason Start Date Expiration Date Visits Requested Visits Authorized [id number] Pending Review Auto-Generat ed Referral 08/20/2023 09/18/2024 1 1 [facility] for referral (narrative)* Diagnostic Procedure Only (Routine) - Closed Specialty Diagnoses / Procedures Referred By Contac t Referred To Contact XR IMAGING Diagnoses DDD (degenerative disc disease), lumbar Procedures XR LUMBAR GENERAL 3V AP/LAT/L5-S1 RADEX SPINE LUMBOSACRAL 2/3 VIEWS Mirella Sanchez PA-C [address] [place] [address] [place] [address] Referral ID Status Reason Start Date Expiration Date V isits Requested Visits Authorized [id number] Closed Auto-Generate d Referral 09/09/2023 10/08/2024 1 1 * Physical Therapy (Routine) - Authorized Specialty Diagnoses / Procedures Referred By Contac t Referred To Contact [facility] Diagnoses Pain in left hip DDD (degenerative disc disease), lumbar Procedures CONSULT TO PHYSICAL THERAPY PHYSICAL THERAPY EVALUATION HIGH COMPLEX 45 MINS Mirella Sanchez PA-C [address] [place] [address] [facility] [address] [place] [address] Referral ID Status Reason Start Date Expiration Date Visits Requested Visits Authorized [id number] Authorized PCP Requested Referral Auto-Generate d Referral 05/31/2023 05/30/2024 99 [phone] [facility] for referral (narrative)* Diagnostic Procedure Only (Routine) - Closed Specialty Diagnoses / Procedures Referred By Conttristan t Referred To Contact XR IMAGING Diagnoses Bilateral hip pain Procedures XR HIP BILATERAL 5V PEL/AP/LAT EACH HIP RADEX HIPS BILATERAL WITH PELVIS MINIMUM 5 VIEWS Mirella Sanchez PA-C [address] [place] [address] Xr Imaging [facility] Referral ID Status Reason Start Date Expiration Date V isits Requested Visits Authorized [id number] Closed Auto-Generate d Referral 08/20/2023 09/18/2024 1 1 [facility] for referral (narrative)No reason for referral information [facility] Work Phone: Reason for visit Narrative* Diagnostic Procedure Only (Routine) - Closed Specialty Diagnoses / Procedures Referred By Contac t Referred To Contact XR IMAGING Diagnoses Bilateral hip pain Procedures XR HIP BILATERAL 5V PEL/AP/LAT EACH HIP RADEX HIPS BILATERAL WITH PELVIS MINIMUM 5 VIEWS Mirella Sanchez PA-C [address] [place] [address] [place] [address] Referral ID Status Reason Start Date Expiration Date V isits Requested Visits Authorized [id number] Closed Auto-Generate d Referral 08/20/2023 09/18/2024 1 1 [facility] Summary Purpose Family History No Family [...] Date/ Time Advance Directives on File No 2024 10:51am Living Will Yes January 12 10:51am Do you have a Healthcare Power of Behavioral Health Worker? Yes January 12, 2025 10:51am Advance Directive Response Recorded Date/ Time Advance Directives on File No 2024 10:51am Living Will Yes January 12 10:51am Do you have a Healthcare Power of Behavioral Health Worker? Yes January 12, 2025 10:51am Do you have a Healthcare Power of Behavioral Health Worker? Yes March 02, 2025 4:01pm Chief Complaint [...] WNL -HPV * LAST MAMM: 12/31/2020 * NURSE PRACTITIONER HOSPITALIST: Preet Young MA II * ASPEN * LAST PAP: 12/12/20- WNL -HPV * LAST MAMM: 12/31/2020 * NURSE PRACTITIONER HOSPITALIST: Preet Young MA II * ASPEN * LAST PAP: 12/12/2020- WNL -HPV * LAST MAMM: 12/12/2021 * NURSE PRACTITIONER HOSPITALIST: Preet Young MA II Health Concerns Infection Onset Date Last Indicated Resolved Time COVID-19 Rule-Out 03/02/2022 03/02/2022 03/03/2022 8:04 AM EDT COVID-19 Confirmed 03/02/2022 03/02/2022 Chief Complaint and Reason for Visit Chief Complaint LT FLANK PAIN Chief Complaint Admit Date LEFT SHOULDER August 31, 2024 10:0 3am Room 4 August 31, 2024 10:1 7am Abdominal complaints October 05, 2024 10:17 am Annual (ELECTRIC TRAIN DRIVER) December 26, 2024 8:55 am Reason for Visit Admit Date Left shoulder pain Lucy 3rd, 2025 10:0 3am Gas bloat syndrome October 05, 2024 10:17a m Heartburn symptom October 05, 2024 10:17a m Encounter for routine gynecological exam ination December 26, 2024 8:55am Chief Complaint Admit Date Abdominal complaints October 05, 2024 10:17 am Annual (ELECTRIC TRAIN DRIVER) December 26, 2024 8:55 am U09.9 Post-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 [facility] 2024 10:31am Post acute sequelae of COVID [...] complaints October 05, 2024 10:17 am Annual (ELECTRIC TRAIN DRIVER) December 26, 2024 8:55 am U09.9 Post-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 [facility] 2024 10:31am Screening for breast cancer January 18, 2025 11:37am 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, dyspnea January 22, 2025 10:00am Chief Complaint Admit Date Abdominal complaints October 05, 2024 10:17 am Annual (ELECTRIC TRAIN DRIVER) December 26, 2024 8:55 am U09.9 Post-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 [facility] 2024 10:31am Screening for breast cancer January 18, 2025 11:37am 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, dyspnea January 26, 2025 10:00am Chief Complaint Admit Date Annual (ELECTRIC TRAIN DRIVER) December 26, 2024 8:55 am U09.9 Post-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 [facility] 2024 10:31am Screening for breast cancer January [...] 2024 8:55am Chief Complaint Admit Date Annual (ELECTRIC TRAIN DRIVER) December 26, 2024 8:55 am U09.9 Post-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 [facility] 2024 10:31am Screening for breast cancer January [...] 5: 26am Chief Complaint Admit Date Annual (ELECTRIC TRAIN DRIVER) December 26, 2024 8:55 am U09.9 Post-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 [facility] 2024 10:31am Screening for breast cancer January [...] section and content) DATE CREATED AUTHOR 09/10/2018 [facility] DATE CREATED AUTHOR AUTHOR'S ORGANIZ ATION 06/20/2020 [facility] DATE CREATED AUTHOR AUTHOR'S ORGANIZ ATION 12/18/2022 [facility] DATE CREATED AUTHOR AUTHOR'S ORGANIZ ATION 12/18/2022 [facility] DATE CREATED AUTHOR AUTHOR'S ORGANIZ ATION 12/29/2022 [facility] DATE CREATED AUTHOR AUTHOR'S ORGANIZ ATION 10/16/2023 [facility] DATE CREATED AUTHOR AUTHOR'S ORGANIZ ATION 07/03/2024 [facility] DATE CREATED AUTHOR AUTHOR'S ORGANIZ ATION 02/21/2025 [facility] DATE CREATED AUTHOR AUTHOR'S ORGANIZ ATION 04/04/2025 [facility] DATE CREATED AUTHOR AUTHOR'S ORGANIZ ATION 04/10/2025 [facility] Source Comments (unrecognize d section and content) In the event this informatio n is protected by the Federal Confidentiality of Alcohol and Drug Abuse Patient Records regulations: The Federal rules restrict any use of the information to criminally investigate or prosecute any alcohol or drug abuse patient.[facility] the event this information is protected by the Federal Confidentiality of Alcohol and Drug Abuse Patient Records regulations: The Federal rules restrict any use of the information to criminally investigate or prosecute any alcohol or drug abuse patient.[facility] HospitalIn the event this information is protected by the Federal Confidentiality of Alcohol and Drug Abuse Patient Records regulations: The Federal rules restrict any use of the information to criminally investigate or prosecute any alcohol or drug abuse patient.[facility] HospitalIn the event this information is protected by the Federal Confidentiality of Alcohol and Drug Abuse Patient Records regulations: The Federal rules restrict any use of the information to criminally investigate or prosecute any alcohol or drug abuse patient.[facility] HospitalIn the event this information is protected by the Federal Confidentiality of Alcohol and Drug Abuse Patient Records regulations: The Federal rules restrict any use of the information to criminally investigate or prosecute any alcohol or drug abuse patient.[facility] HospitalIn the event this information is protected by the Federal Confidentiality of Alcohol and Drug Abuse Patient Records regulations: The Federal rules restrict any use of the information to criminally investigate or prosecute any alcohol or drug abuse patient.[facility] HospitalIn the event this information is protected by the Federal Confidentiality of Alcohol and Drug Abuse Patient Records regulations: The Federal rules restrict any use of the information to criminally investigate or prosecute any alcohol or drug abuse patient.[facility] HospitalIn the event this information is protected by the Federal Confidentiality of Alcohol and Drug Abuse Patient Records regulations: The Federal rules restrict any use of the information to criminally investigate or prosecute any alcohol or drug abuse patient.[facility] HospitalIn the event this information is protected by the Federal Confidentiality of Alcohol and Drug Abuse Patient Records regulations: The Federal rules restrict any use of the information to criminally investigate or prosecute any alcohol or drug abuse patient.[facility] HospitalIn the event this information is protected by the Federal Confidentiality of Alcohol and Drug Abuse Patient Records regulations: The Federal rules restrict any use of the information to criminally investigate or prosecute any alcohol or drug abuse patient.[facility] HospitalIn the event this information is protected by the Federal Confidentiality of Alcohol and Drug Abuse Patient Records regulations: The Federal rules restrict any use of the information to criminally investigate or prosecute any alcohol or drug abuse patient.[facility] HospitalIn the event this information is protected by the Federal Confidentiality of Alcohol and Drug Abuse Patient Records regulations: The Federal rules restrict any use of the information to criminally investigate or prosecute any alcohol or drug abuse patient.[facility] HospitalIn the event this information is protected by the Federal Confidentiality of Alcohol and Drug Abuse Patient Records regulations: The Federal rules restrict any use of the information to criminally investigate or prosecute any alcohol or drug abuse patient.[facility] HospitalIn the event this information is protected by the Federal Confidentiality of Alcohol and Drug Abuse Patient Records regulations: The Federal rules restrict any use of the information to criminally investigate or prosecute any alcohol or drug abuse patient.[facility] HospitalIn the event this information is protected by the Federal Confidentiality of Alcohol and Drug Abuse Patient Records regulations: The Federal rules restrict any use of the information to criminally investigate or prosecute any alcohol or drug abuse patient.[facility] HospitalIn the event this information is protected by the Federal Confidentiality of Alcohol and Drug Abuse Patient Records regulations: The Federal rules restrict any use of the information to criminally investigate or prosecute any alcohol or drug abuse patient.[facility] HospitalIn the event this information is protected by the Federal Confidentiality of Alcohol and Drug Abuse Patient Records regulations: The Federal rules restrict any use of the information to criminally investigate or prosecute any alcohol or drug abuse patient.[facility] HospitalIn the event this information is protected by the Federal Confidentiality of Alcohol and Drug Abuse Patient Records regulations: The Federal rules restrict any use of the information to criminally investigate or prosecute any alcohol or drug abuse patient.[facility] ClinicIn the event this information is protected by the Federal Confidentiality of Alcohol and Drug Abuse Patient Records regulations: The Federal rules restrict any use of the information to criminally investigate or prosecute any alcohol or drug abuse patient.[facility] HospitalIn the event this information is protected by the Federal Confidentiality of Alcohol and Drug Abuse Patient Records regulations: The Federal rules restrict any use of the information to criminally investigate or prosecute any alcohol or drug abuse patient.[facility] HospitalIn the event this information is protected by the Federal Confidentiality of Alcohol and Drug Abuse Patient Records regulations: The Federal rules restrict any use of the information to criminally investigate or prosecute any alcohol or drug abuse patient.[facility] HospitalIn the event this information is protected by the Federal Confidentiality of Alcohol and Drug Abuse Patient Records regulations: The Federal rules restrict any use of the information to criminally investigate or prosecute any alcohol or drug abuse patient.[facility] HospitalIn the event this information is protected by the Federal Confidentiality of Alcohol and Drug Abuse Patient Records regulations: The Federal rules restrict any use of the information to criminally investigate or prosecute any alcohol or drug abuse patient.[facility] HospitalIn the event this information is protected by the Federal Confidentiality of Alcohol and Drug Abuse Patient Records regulations: The Federal rules restrict any use of the information to criminally investigate or prosecute any alcohol or drug abuse patient.[facility] HospitalIn the event this information is protected by the Federal Confidentiality of Alcohol and Drug Abuse Patient Records regulations: The Federal rules restrict any use of the information to criminally investigate or prosecute any alcohol or drug abuse patient.[facility] HospitalIn the event this information is protected by the Federal Confidentiality of Alcohol and Drug Abuse Patient Records regulations: The Federal rules restrict any use of the information to criminally investigate or prosecute any alcohol or drug abuse patient.[facility] HospitalIn the event this information is protected by the Federal Confidentiality of Alcohol and Drug Abuse Patient Records regulations: The Federal rules restrict any use of the information to criminally investigate or prosecute any alcohol or drug abuse patient.[facility] HospitalIn the event this information is protected by the Federal Confidentiality of Alcohol and Drug Abuse Patient Records regulations: The Federal rules restrict any use of the information to criminally investigate or prosecute any alcohol or drug abuse patient.[facility] HospitalIn the event this information is protected by the Federal Confidentiality of Alcohol and Drug Abuse Patient Records regulations: The Federal rules restrict any use of the information to criminally investigate or prosecute any alcohol or drug abuse patient.[facility] HospitalIn the event this information is protected by the Federal Confidentiality of Alcohol and Drug Abuse Patient Records regulations: The Federal rules restrict any use of the information to criminally investigate or prosecute any alcohol or drug abuse patient.[facility] HospitalIn the event this information is protected by the Federal Confidentiality of Alcohol and Drug Abuse Patient Records regulations: The Federal rules restrict any use of the information to criminally investigate or prosecute any alcohol or drug abuse patient.[facility] HospitalIn the event this information is protected by the Federal Confidentiality of Alcohol and Drug Abuse Patient Records regulations: The Federal rules restrict any use of the information to criminally investigate or prosecute any alcohol or drug abuse patient.[facility] HospitalIn the event this information is protected by the Federal Confidentiality of Alcohol and Drug Abuse Patient Records regulations: The Federal rules restrict any use of the information to criminally investigate or prosecute any alcohol or drug abuse patient.[facility] HospitalIn the event this information is protected by the Federal Confidentiality of Alcohol and Drug Abuse Patient Records regulations: The Federal rules restrict any use of the information to criminally investigate or prosecute any alcohol or drug abuse patient.[facility] HospitalIn the event this information is protected by the Federal Confidentiality of Alcohol and Drug Abuse Patient Records regulations: The Federal rules restrict any use of the information to criminally investigate or prosecute any alcohol or drug abuse patient.[facility] HospitalIn the event this information is protected by the Federal Confidentiality of Alcohol and Drug Abuse Patient Records regulations: The Federal rules restrict any use of the information to criminally investigate or prosecute any alcohol or drug abuse patient.[facility] HospitalIn the event this information is protected by the Federal Confidentiality of Alcohol and Drug Abuse Patient Records regulations: The Federal rules restrict any use of the information to criminally investigate or prosecute any alcohol or drug abuse patient.[facility] HospitalIn the event this information is protected by the Federal Confidentiality of Alcohol and Drug Abuse Patient Records regulations: The Federal rules restrict any use of the information to criminally investigate or prosecute any alcohol or drug abuse patient.[facility] HospitalIn the event this information is protected by the Federal Confidentiality of Alcohol and Drug Abuse Patient Records regulations: The Federal rules restrict any use of the information to criminally investigate or prosecute any alcohol or drug abuse patient.[facility] HospitalIn the event this information is protected by the Federal Confidentiality of Alcohol and Drug Abuse Patient Records regulations: The Federal rules restrict any use of the information to criminally investigate or prosecute any alcohol or drug abuse patient.[facility] HospitalIn the event this information is protected by the Federal Confidentiality of Alcohol and Drug Abuse Patient Records regulations: The Federal rules restrict any use of the information to criminally investigate or prosecute any alcohol or drug abuse patient.[facility] HospitalIn the event this information is protected by the Federal Confidentiality of Alcohol and Drug Abuse Patient Records regulations: The Federal rules restrict any use of the information to criminally investigate or prosecute any alcohol or drug abuse patient.[facility] HospitalIn the event this information is protected by the Federal Confidentiality of Alcohol and Drug Abuse Patient Records regulations: The Federal rules restrict any use of the information to criminally investigate or prosecute any alcohol or drug abuse patient.[facility] HospitalIn the event this information is protected by the Federal Confidentiality of Alcohol and Drug Abuse Patient Records regulations: The Federal rules restrict any use of the information to criminally investigate or prosecute any alcohol or drug abuse patient.[facility] HospitalIn the event this information is protected by the Federal Confidentiality of Alcohol and Drug Abuse Patient Records regulations: The Federal rules restrict any use of the information to criminally investigate or prosecute any alcohol or drug abuse patient.[facility] Reason for Visit (unrecogniz ed section and content) Reason Comments Cough ST, ALVARADO, chest conges tion, ELISHA ear pain x3 weeks Reason Comments Results Reason Comments Covid19 Concern Exposure, ALVARADO, nasal congestion, ELISHA ear pain, faitgue x1 [...] Eval Specialty Diagnoses / Procedures Referred By Arley nelson Referred To Contact [facility] Diagnoses Pain in left hip DDD (degenerative disc disease), lumbar Procedures CONSULT TO PHYSICAL THERAPY PHYSICAL THERAPY EVALUATION HIGH COMPLEX 45 MINS Mirella Sanchez PA-C [address] [place] [address] [facility] [address] [place] [id number] Referral ID Status Reason Start Date Expiration Date Visits Requested Visits Authorized [id number] Authorized PCP Requested Referral Auto-Generate d Referral [...] Service Pr ogress NotePATIENT NAME: Tiffanie RamseyMRN: [id number] OF SERVICE: November 30, 2024TIME: 11:45 AMPATIENT [...] SPMTRY PRE&POST-BRNCDILAT ADMN Taqueria Vieira MD [address] [place] [address] Phone: tel: fax: [facility] [address] [place] [address] Referral ID Status Reason Start Date Expiration Date V isits Requested Visits Authorized [id number] Closed Auto-Generate d Referral 11/30/2024 12/30/2025 1 1 Specialty Diagnoses / Procedures Referred By Contac t Referred To Contact [facility] Diagnoses Shortness of breath Procedures LUNG VOLUMES Taqueria Vieira MD [address] [place] [address] Phone: tel: fax: [facility] [address] [address] Referral ID Status Reason Start Date Expiration Date V isits Requested Visits Authorized [id number] Closed Auto-Generate d Referral 11/30/2024 12/30/2025 1 1 Specialty Diagnoses / Procedures Referred By Contac t Referred To Contact [facility] Diagnoses Shortness of breath Procedures LUNG DIFFUSION CAPACITY (DLCO) DIFFUSING CAPACITY Taqueria Vieira MD [address] [place] [address] Phone: tel: fax: [facility] [address] [place] [phone] Referral ID Status Reason Start Date Expiration Date V isits Requested Visits Authorized [id number] Closed Auto-Generate d Referral 11/30/2024 12/30/2025 1 1 Specialty Diagnoses / Procedures Referred By Contac t Referred To Contact [facility] Diagnoses Shortness of breath Procedures SIX MINUTE WALK CARDIOPULMONARY EXERCISE STRESS Taqueria Vieira MD [address] [place] [address] Phone: tel: fax: [facility] [address] [place] [id number] Referral ID Status Reason Start Date Expiration Date V isits Requested Visits Authorized [id number] Closed Auto-Generate d Referral 11/30/2024 12/30/2025 1 1 Reason Comments New Patient Evaluation Post covid-19 con dition, unspecified [U09.9] Brain fog [R41.89] Specialty Diagnoses / Procedures Referred By Contac t Referred To Contact Gerontology Diagnoses Post covid-19 condition, unspecified Brain fog Procedures CONSULT TO GERIATRICS OFFICE/OUTPATIENT NEW [facility] 60 MINUTES Taqueria Vieira MD [address] [place] [address] Phone: tel: fax: Referral ID Status Reason Start Date Expiration Date V isits Requested Visits Authorized [id number] Closed PCP Requested Referral 11/30/2024 11/30/2025 1 1 Reason Comments New Patient Post Covid Reason Comments Wellness Specialty Diagnoses / Procedures Referred By Contac t Referred To Contact Diagnoses Fatigue, unspecified type Post covid-19 condition, unspecified Exercise intolerance Shortness of breath Brain fog Myalgia Arthralgia, unspecified joint Abdominal discomfort Procedures CONSULT TO WELLNESS PHYSICIAN OFFICE/OUTPATIENT NEW [facility]IGH [facility] 60 MINUTES Taqueria Vieira MD [address] [place] [address] Phone: tel: fax: Referral ID Status Reason Start Date Expiration Date V isits Requested Visits Authorized [id number] Closed PCP Requested Referral 11/30/2024 11/30/2025 1 1 Reason Onset Date Comments Results 12/19/2024 Reason Comments Faxed to Dr. Gibson Reason Comments GERD Abdominal discomfort Specialty Diagnoses / Procedures Referred By Contac t Referred To Contact Gastroenterology Diagnoses Post covid-19 condition, unspecified Gastroesophageal reflux disease with esophagitis, unspecified whether hemorrhage Abdominal discomfort Procedures OFFICE/OUTPATIENT NEW [facility] 60 MINUTES Taqueria Vieira MD [address] [place] [address] Phone: tel: fax: Referral ID Status Reason Start Date Expiration Date V isits Requested Visits Authorized [id number] Closed PCP Requested Referral 11/30/2024 11/30/2025 1 1 Care Teams (unrecognized sec tion and content) Quality Improvement Manager Relationship Specialty Start Date End Date Taqueria Vieira MD [address] [place] [address] PCP - General Family Practice 06/04/21 Quality Improvement Manager Relationship Specialty Start Date End Date Taqueria Vieira MD [address] [place] [address] PCP - General Family Practice 06/04/21 Quality Improvement Manager Relationship Specialty Start Date End Date Taqueria Vieira MD [address] [place] [address] PCP - General Family Medicine 06/04/21 Quality Improvement Manager Relationship Specialty Start Date End Date Taqueria Vieira MD [address] [place] [address] PCP - General Family Medicine 06/04/21 Quality Improvement Manager Relationship Specialty Start Date End Date Taqueria Vieira MD [address] [place] [address] PCP - General Family Medicine 06/04/21 Quality Improvement Manager Relationship Specialty Start Date End Date Taqueria Vieira MD [address] [place] [address] PCP - General Family Medicine 06/04/21 Quality Improvement Manager Relationship Specialty Start Date End Date Jeremy Ramirez, ENGINEERING AND OPERATIONS DIRECTOR.ROADSIDE MECHANIC [address] [facility] [place] [place] [address] PCP - General Internal Medicine 05/06/23 Quality Improvement Manager Relationship Specialty Start Date End Date Jeremy Ramirez, ENGINEERING AND OPERATIONS DIRECTOR.ROADSIDE MECHANIC [address] [facility] [place] [address] PCP - General Internal Medicine 05/06/23 Quality Improvement Manager Relationship Specialty Start Date End Date Jeremy Ramirez, ENGINEERING AND OPERATIONS DIRECTOR.ROADSIDE MECHANIC [address] [place] [address] PCP - General Internal Medicine 05/06/23 Quality Improvement Manager Relationship Specialty Start Date End Date Jeremy Ramirez ENGINEERING AND OPERATIONS DIRECTOR.ROADSIDE MECHANIC [address] [place] [address] PCP - General Internal Medicine 05/06/23 Quality Improvement Manager Relationship Specialty Start Date End Date Jeremy Ramirez, ENGINEERING AND OPERATIONS DIRECTOR.ROADSIDE MECHANIC [address] [place] [address] PCP - General Internal Medicine 05/06/23 Celi Wahl MD [address] [place] [address] Internal Medicine 06/08/23 Joe Shah MD [address] [address] Ent - Otolaryngology 06/08/23 Autumn Omalley PA-C [address] [place] [address] Dermatology 06/08/23 Dominique Fisher MD [address] [place] [address] Endocrinology 06/08/23 Quality Improvement Manager Relationship Specialty Start Date End Date Jeremy Ramirez ENGINEERING AND OPERATIONS DIRECTOR.ROADSIDE MECHANIC [address] [place] [address] PCP - General Internal Medicine 05/06/23 Celi Wahl MD [address] [place] [address] Internal Medicine 06/08/23 Joe Shah MD [address] [address] Ent - Otolaryngology 06/08/23 Autumn Omalley PA-C [address] [place] [address] Dermatology 06/08/23 Dominique Fisher MD [address] [place], [place] [address] Endocrinology 06/08/23 Quality Improvement Manager Relationship Specialty Start Date End Date Jeremy Ramirez, ENGINEERING AND OPERATIONS DIRECTOR.[facility] [address] [place] [address] PCP - General Internal Medicine 05/06/23 Celi Wahl MD [address] [place] [address] Internal Medicine 06/08/23 Joe Shah MD [address] [address] Ent - Otolaryngology 06/08/23 Autumn Omalley PA-C [address] [place] [address] Dermatology 06/08/23 Dominique Fisher MD [address] [place], [place] [address] Endocrinology 06/08/23 Quality Improvement Manager Relationship Specialty Start Date End Date Jeremy Ramirez, ENGINEERING AND OPERATIONS DIRECTOR.ROADSIDE MECHANIC [address] [place], [place] [id number] PCP - General Internal Medicine 05/06/23 Celi Wahl MD [address] [place] [address] Internal Medicine 06/08/23 Joe Shah MD [address] [address] Ent - Otolaryngology 06/08/23 Autumn Omalley PA-C [address] [place] [address] Dermatology 06/08/23 Dominique Fisher MD [address] [place] [address] Endocrinology 06/08/23 Quality Improvement Manager Relationship Specialty Start Date End Date Jeremy Ramirez, ENGINEERING AND OPERATIONS DIRECTOR.ROADSIDE MECHANIC [address] [place] [address] PCP - General Internal Medicine 05/06/23 Celi Wahl MD [address] [place] [address] Internal Medicine 06/08/23 Joe Shah MD [address] [address] Ent - Otolaryngology 06/08/23 Autumn Omalley PA-C [address] [place] [address] Dermatology 06/08/23 Dominique Fisher MD [address] [facility] [place] [address] Endocrinology 06/08/23 Quality Improvement Manager Relationship Specialty Start Date End Date Jeremy Ramirez ENGINEERING AND OPERATIONS DIRECTOR.ROADSIDE MECHANIC [address] [place] [address] PCP - General Internal Medicine 05/06/23 Celi Wahl MD [address] [place] [address] Internal Medicine 06/08/23 Joe Shah MD [address] [address] Ent - Otolaryngology 06/08/23 Autumn Omalley PA-C [address] [place] [address] Dermatology 06/08/23 Dominique Fisher MD [address] [facility] [place] [address] Endocrinology 06/08/23 Team Status: Active Member Role Status Dates Dr. Bello Davenport MD Primary Care Provider Active Team Status: Inactive Member Role Status Dates Dr. Bello Davenport MD Primary Care Provider, Attending Provider Active Quality Improvement Manager Relationship Specialty Start Date End Date Jeremy Ramirez, ENGINEERING AND OPERATIONS DIRECTOR.ROADSIDE MECHANIC [address] [place], [place] [id number] PCP - General Internal Medicine 05/06/23 Celi Wahl MD [address] [place] [address] Internal Medicine 06/08/23 Joe Shah MD [address] [address] Ent - Otolaryngology 06/08/23 Autumn Omalley PA-C [address] [place] [address] Dermatology 06/08/23 Dominique Fisher MD [address] [place] [address] Endocrinology 06/08/23 Team Status: Inactive Member Role Status Dates Dr. Bello Davenport MD Primary Care Provi rosa, Attending Provider, Referring Provider Active Quality Improvement Manager Relationship Specialty Start Date End Date Jeremy Ramirez, ENGINEERING AND OPERATIONS DIRECTOR.ROADSIDE MECHANIC [address] [place] [address] PCP - General Internal Medicine 05/06/23 Celi Wahl MD [address] [place] [address] Internal Medicine 06/08/23 Joe Shah MD [address] [address] Ent - Otolaryngology 06/08/23 Autumn Omalley PA-C [address] [place], [place] [address] Dermatology 06/08/23 Dominique Fisher MD [address] [facility] [address] Endocrinology 06/08/23 Quality Improvement Manager Relationship Specialty Start Date End Date GómezJeremy, ENGINEERING AND OPERATIONS DIRECTOR.ROADSIDE MECHANIC [address] [place] [address] PCP - General Internal Medicine 05/06/23 Celi Wahl MD [address] [place], [place] [address] Internal Medicine 06/08/23 Joe Shah MD [address] [address] Ent - Otolaryngology 06/08/23 Autumn Omalley PA-C [address] [place] [address] Dermatology 06/08/23 Dominique Fisher MD [address] [facility] [address] Endocrinology 06/08/23 Quality Improvement Manager Relationship Specialty Start Date End Date Bello Davenport Chi [address] [address] PCP - General Gerontology 10/15/23 Celi Wahl MD [address] [place] [address] Internal Medicine 06/08/23 Joe Shah MD [address] [address] Ent - Otolaryngology 06/08/23 Autumn Omalley PA-C [address] [place] [address] Dermatology 06/08/23 Dominique Fisher MD [address] [place] [address] Endocrinology 06/08/23 Quality Improvement Manager Relationship Specialty Start Date End Date Bello Davenport Chi [address] [place] [address] PCP - General Gerontology 10/15/23 Celi Wahl MD [address] [place] [address] Internal Medicine 06/08/23 Joe Shah MD [address] [address] Ent - Otolaryngology 06/08/23 Autumn Omalley PA-C [address] [place] [address] Dermatology 06/08/23 Dominique Fisher MD [address] [place] [address] Endocrinology 06/08/23 Quality Improvement Manager Relationship Specialty Start Date End Date Jeremy Ramirez, ENGINEERING AND OPERATIONS DIRECTOR.ROADSIDE MECHANIC [address] [place] [id number] PCP - General Internal Medicine 05/06/23 10/14/23 Celi Wahl MD [address] [place], [place] [address] Internal Medicine 06/08/23 Joe Shah MD [address] [address] Ent - Otolaryngology 06/08/23 Autumn Omalley PA-C [address] [place] [address] Dermatology 06/08/23 Dominique Fisher MD [address] [place] [address] Endocrinology 06/08/23 Team Status: Inactive Member Role [...] August 11, 2024 End: August 11, 2024 Quality Improvement Manager Relationship Specialty Start Date End Date Bello Davenport Chi [address] [place] [address] PCP - General Gerontology 10/15/23 Celi Wahl MD [address] [place] [address] Internal Medicine 06/08/23 Joe Shah MD [address] [address] Ent - Otolaryngology 06/08/23 Autumn Omalley PA-C [address] [place] [address] Dermatology 06/08/23 Dominique Fisher MD [address] [place], [place] [address] Endocrinology 06/08/23 Quality Improvement Manager Relationship Specialty Start Date End Date IssacBello pop Bubba [address] [place] [address] PCP - General Gerontology 10/15/23 Celi Wahl MD [address] [place] [address] Internal Medicine 06/08/23 Joe Shah MD [address] [address] Ent - Otolaryngology 06/08/23 Autumn Omalley PA-C [address] [place] [address] Dermatology 06/08/23 Dominique Fisher MD [address] [place] [address] Endocrinology 06/08/23 Quality Improvement Manager Relationship Specialty Start Date End Date Bello Davenport Chi [address] [place] [address] PCP - General Gerontology 10/15/23 Celi Wahl MD [address] [place] [address] Internal Medicine 06/08/23 Joe Shah MD [address] [address] Ent - Otolaryngology 06/08/23 Autumn Omalley PA-C [address] [place] [address] Dermatology 06/08/23 Dominique Fisher MD [address] [facility] [place] [address] Endocrinology 06/08/23 Quality Improvement Manager Relationship Specialty Start Date End Date Bello Davenport Chi [address] [place] [address] PCP - General Gerontology 10/15/23 Celi Wahl MD [address] [place] [address] Internal Medicine 06/08/23 Joe Shah MD [address] [address] Ent - Otolaryngology 06/08/23 Autumn Omalley PA-C [address] [place] [address] Dermatology 06/08/23 Dominique Fisher MD [address] [place] [address] Endocrinology 06/08/23 Quality Improvement Manager Relationship Specialty Start Date End Date Bello Davenport Chi [address] [place] [address] PCP - General Gerontology 10/15/23 Celi Wahl MD [address] [place] [address] Internal Medicine 06/08/23 Joe Shah MD [address] [address] Ent - Otolaryngology 06/08/23 Autumn Omalley PA-C [address] [place] [address] Dermatology 06/08/23 Dominique Fisher MD [address] [place] [address] Endocrinology 06/08/23 Quality Improvement Manager Relationship Specialty Start Date End Date Bello Davenport Chi [address] [place] [address] PCP - General Gerontology 10/15/23 Celi Wahl MD [address] [place] [address] Internal Medicine 06/08/23 Joe Shah MD [address] [address] Ent - Otolaryngology 06/08/23 Autumn Omalley PA-C [address] [place] [address] Dermatology 06/08/23 Dominique Fisher MD [address] [place] [place], [place] [address] Endocrinology 06/08/23 Quality Improvement Manager Relationship Specialty Start Date End Date Bello Davenport Chi [address] [place], [place] [address] PCP - General Gerontology 10/15/23 Celi Wahl MD [address] [place] [address] Internal Medicine 06/08/23 Joe Shah MD [address] [address] Ent - Otolaryngology 06/08/23 Autumn Omalley PA-C [address] [place] [address] Dermatology 06/08/23 Dominique Fisher MD [address] [place] [address] Endocrinology 06/08/23 Quality Improvement Manager Relationship Specialty Start Date End Date Bello Davenport Chi [address] [place] [address] PCP - General Gerontology 10/15/23 Celi Wahl MD [address] [place] [address] Internal Medicine 06/08/23 Joe Shah MD [address] [address] Ent - Otolaryngology 06/08/23 Autumn Omalley PA-C [address] [place] [address] Dermatology 06/08/23 Dominique Fisher MD [address] [place] [address] Endocrinology 06/08/23 Quality Improvement Manager Relationship Specialty Start Date End Date Bello Davenport Chi [address] [facility] [address] [place] [address] PCP - General Gerontology 10/15/23 Celi Wahl MD [address] [place] [address] Internal Medicine 06/08/23 Joe Shah MD [address] [address] Ent - Otolaryngology 06/08/23 Autumn Omalley PA-C [address] [place] [address] Dermatology 06/08/23 Dominique Fisher MD [address] [place], [place] [address] Endocrinology 06/08/23 Quality Improvement Manager Relationship Specialty Start Date End Date Bello Davenport Chi [address] [address] PCP - General Gerontology 10/15/23 Celi Wahl MD [address] [place], [place] [address] Internal Medicine 06/08/23 Joe Shah MD [address] [address] Ent - Otolaryngology 06/08/23 Autumn Omalley PA-C [address] [place] [address] Dermatology 06/08/23 Dominique Fisher MD [address] [place] [address] Endocrinology 06/08/23 Team Status: Active Member Role/Relationship [...] October 05, 2024 End: October 05, 2024 Pina Robles NP-C Attending Provider Active S tart: October 05, 2024 End: October 05, 2024 Team Status: Inactive Member Role/Relationship Status Dates Dr. Bello Davenport MD Primary Care Provider Active Start: December 26, 2024 End: December 26, 2024 Dr. Bello Davenport MD Referring Provider Active Start: December 26, 2024 End: December 26, 2024 Lise Araya NP, NP-C Attending Provider Active Start: December 26, 2024 End: December 26, 2024 Quality Improvement Manager Relationship Specialty Start Date End Date Bello Davenport Chi [address] [place] [address] PCP - General Gerontology 10/15/23 Celi Wahl MD [address] [place] [address] Internal Medicine 06/08/23 Joe Shah MD [address] [address] Ent - Otolaryngology 06/08/23 Autumn Omalley PA-C [address] [place] [address] Dermatology 06/08/23 Dominique Fisher MD [address] [place] [address] Endocrinology 06/08/23 Quality Improvement Manager Relationship Specialty Start Date End Date Bello Davenport Chi [address] [place] [address] PCP - General Gerontology 10/15/23 Celi Wahl MD [address] [place] [address] Internal Medicine 06/08/23 Joe Shah MD [address] [address] Ent - Otolaryngology 06/08/23 Autumn Omalley PA-C [address] [place] [address] Dermatology 06/08/23 Dominique Fisher MD [address] [place] [address] Endocrinology 06/08/23 Quality Improvement Manager Relationship Specialty Start Date End Date Bello Davenport Chi [address] [place] [address] PCP - General Gerontology 10/15/23 Celi Wahl MD [address] [place] [address] Internal Medicine 06/08/23 Joe Shah MD [address] [address] Ent - Otolaryngology 06/08/23 Autumn Omalley PA-C [address] [place] [address] Dermatology 06/08/23 Dominique Fisher MD [address] [place] [address] Endocrinology 06/08/23 Quality Improvement Manager Relationship Specialty Start Date End Date Bello Davenport Chi [address] [place] [address] PCP - General Gerontology 10/15/23 Celi Wahl MD [address] [place] [address] Internal Medicine 06/08/23 Joe Shah MD [address] [address] Ent - Otolaryngology 06/08/23 Autumn Omalley PA-C [address] [place] [address] Dermatology 06/08/23 Dominique Fisher MD [address] [place] [address] Endocrinology 06/08/23 Quality Improvement Manager Relationship Specialty Start Date End Date Bello Davenport Chi [address] [place] [address] PCP - General Gerontology 10/15/23 Celi Wahl MD [address] [place] [address] Internal Medicine 06/08/23 Joe Shah MD [address] [address] Ent - Otolaryngology 06/08/23 Autumn Omalley PA-C [address] [place] [address] Dermatology 06/08/23 Dominique Fisher MD [address] [facility] [address] Endocrinology 06/08/23 Quality Improvement Manager Relationship Specialty Start Date End Date Bello Davenport Chi [address] [facility] [address] [place] [address] PCP - General Gerontology 10/15/23 Celi Wahl MD [address] [place] [address] Internal Medicine 06/08/23 Joe Shah MD [address] [address] Ent - Otolaryngology 06/08/23 Autumn Omalley PA-C [address] [place] [address] Dermatology 06/08/23 Dominique Fisher MD [address] [place] [address] Endocrinology 06/08/23 Quality Improvement Manager Relationship Specialty Start Date End Date Bello Davenport Chi [address] [facility] [address] [place] [address] PCP - General Gerontology 10/15/23 Celi Wahl MD [address] [place] [address] Internal Medicine 06/08/23 Joe Shah MD [address] [address] Ent - Otolaryngology 06/08/23 Autumn Omalley PA-C [address] [place] [address] Dermatology 06/08/23 Dominique Fisher MD [address] [place] [address] Endocrinology 06/08/23 Team Status: Inactive Member Role/Relationship [...] December 26, 2024 End: December 26, 2024 JOSE Sevilla NPC Attending Provider Active Start: December 26, 2024 End: December 26, 2024 Team Status: Inactive Member Role/Relationship Status Dates Dr. Bello Davenport MD Primary Care Provider Active Start: January 12, 2025 End: January 12, 2025 HSANE RAMIREZ Attending Provider Active Start: [facility] 2024 End: January 12, 2025 ASHLEY, SHANE Referring Provider Active Start: [facility] 2024 End: January 12, 2025 Team Status: Active Member Role/Relationship Status Dates Dr. Bello Davenport MD Primary Care Provider Active Start: January 15, 2025 ASHLEY, SHANE Attending Provider Active Start: [facility] 2024 ASHLEY, SHANE Referring Provider Active Start: [facility] 2024 Team Status: Active Member Role/Relationship Status Dates Dr. Bello Davenport MD Primary Care Provider Active Start: January 18, 2025 Lise Araya DRY HEAT ROOM ATTENDANT, DRY HEAT ROOM ATTENDANT-C Attending Provider Active Start: January 18, 2025 Lise Araya DRY HEAT ROOM ATTENDANT, DRY HEAT ROOM ATTENDANT-C Referring Provider Active Start: January 18, 2025 Team Status: Inactive Member Role/Relationship Status Dates Dr. Bello Davenport MD Primary Care Provider Active Start: January 18, 2025 End: January 18, 2025 Lise Araya DRY HEAT ROOM ATTENDANT, DRY HEAT ROOM ATTENDANT-C Attending Provider Active Start: January 18, 2025 End: January 18, 2025 Lise Araya DRY HEAT ROOM ATTENDANT, DRY HEAT ROOM ATTENDANT-C Referring Provider Active Start: January 18, 2025 End: January 18, 2025 Team Status: Active Member Role/Relationship Status Dates Dr. Bello Davenport MD Primary Care Provider Active Start: January 22, 2025 ASHLEY, SHANE Attending Provider Active Start: [facility] 2024 ASHLEY, SHANE Referring Provider Active Start: [facility] 2024 Team Status: Inactive Member Role/Relationship Status Dates Dr. Bello Davenport MD Primary Care Provider Active Start: January 26, 2025 End: January 28, 2025 ASHLEY, HSANE Attending Provider Active Start: [facility] 2024 End: January 28, 2025 ASHLEY, SHANE Referring Provider Active Start: [facility] 2024 End: January 28, 2025 Team Status: Active Member Role/Relationship Status Dates Dr. Bello Davenport MD Primary care physician Active Team Status: Inactive Member Role/Relationship Status Dates Dr. Bello Davenport MD Primary care physician Active Start: December 26, 2024 End: December 26, 2024 Dr. Bello Davenport MD Referring Provider Active Start: December 26, 2024 End: December 26, 2024 Lise Marshal DRY HEAT ROOM ATTENDANT, DRY HEAT ROOM ATTENDANT-C Attending physician Active Start: December 26, 2024 End: December 26, 2024 Team Status: Inactive Member Role/Relationship Status Dates Dr. Bello Davenport MD Primary care physician Active Start: January 12, 2025 End: January 12, 2025 ASHLEY, SHANE Attending physician Active Start: [facility] 2024 End: January 12, 2025 ASHLEY, SHANE Referring Provider Active Start: Au barbara 2024 End: January 12, 2025 Team Status: Inactive Member Role/Relationship Status Dates Dr. Bello Davenport MD Primary care physician Active Start: January 18, 2025 End: January 18, 2025 Lise Araya DRY HEAT ROOM ATTENDANT, DRY HEAT ROOM ATTENDANT-C Attending physician Active Start: January 18, 2025 End: January 18, 2025 Lise Araya DRY HEAT ROOM ATTENDANT, DRY HEAT ROOM ATTENDANT-C Referring Provider Active Start: January 18, 2025 [...] ASHLEY, SHANE Attending physician Active Start: S derektewali 2024 End: February 27, 2025 ASHLEY, SHANE [...] 2024 ASHLEY, SHANE Referring Provider Active Start: 2024 Team Status: Inactive Member Role/Relationship Status [...] Attending physician Active Start: O ctober 2024 ASHLEYSHANE Kirkland Referring Provider Active Start: Oc tober 2024 [...] BE BASED ON THE PRIMARY CLINICAL RECORDS. [facility]. provides no warranty or guarantee of the accuracy or completeness of information in this document.
[2025-05-23 08:58] LABS: Cholesterol 252 mg/dL (<=200); Low Density Lipoprotein Calc. 167 mg/dL; Triglycerides 88 mg/dL; Very Low Density Lipoprotein 18 mg/dL (5-40); cholesterol:hdl ratio screen 3.60
== END | disposition home or self-care (01) ==
LOC: LAB 08:24
PROVIDERS: PCP Family Medicine; Referring Provider Internal Medicine Cardiovascular Disease; Visit Provider Internal Medicine Cardiovascular Disease
DX: E78.5 Hyperlipidemia, unspecified (principal)
CPT/HCPCS: 36415; 80061